=== PATIENT | male | born 1945 | race Caucasian/White ===

== ENCOUNTER 2020-01-30 06:22 | Outpatient (REF) | payer MEDICARE, SELFPAY | END 2020-01-30 06:23 | disposition home or self-care (01) | LOC: HO.MMNH1L 06:22 | PROVIDERS: Visit Provider Family Medicine | DX: Z20.828 Contact with and (suspected) exposure to other viral communicable diseases (principal) | CPT/HCPCS: 36415; 87635 ==

== ENCOUNTER 2020-02-03 17:56 | Outpatient (REF) | payer SELFPAY | END 2020-02-03 17:57 | disposition home or self-care (01) | LOC: HO.MMNH1L 17:56 | PROVIDERS: Visit Provider Family Medicine | DX: Z20.828 Contact with and (suspected) exposure to other viral communicable diseases (principal) | CPT/HCPCS: 87635 ==

== ENCOUNTER 2020-03-07 12:30 | Outpatient (REF) | payer MEDICARE, SELFPAY | END 2020-03-07 12:31 | LOC: HO.LNP 12:30 | PROVIDERS: Visit Provider Physician Assistant | DX: R30.0 Dysuria (principal) | CPT/HCPCS: 87086 ==

== ENCOUNTER 2020-04-28 12:06 | Outpatient (REF) | payer MEDICARE, SELFPAY ==
[2020-04-28 13:26] LABS: Glucose Urine UA NEG (NEG); Leukocyte Esterase Urine NEG (NEG); Nitrite Urine NEG (NEG); PH 5.5 (5.0-8.0); Urine Blood NEG (NEG); Urine Ketones NEG (NEG); Urine Protein NEG (NEG-TRACE)
[2020-04-28 13:28] LABS: Appearance Urine CLEAR; Color Urine YELLOW
[2020-04-28 13:50] LABS: RBC Urine 0 /HPF (0); WBC Urine 0 /HPF (0-4)
[2020-04-28 13:54] LABS: TSH reflex Free T4 2.16 mIU/mL (0.32-4.0)
== END 2020-04-28 12:07 | disposition home or self-care (01) ==
LOC: HO.LAB 12:06
PROVIDERS: Absent Provider Physician Assistant; PCP Internal Medicine; Visit Provider Internal Medicine
DX: T73.2XXA Exhaustion due to exposure, initial encounter (principal); R30.0 Dysuria
CPT/HCPCS: 81001; 84443

== ENCOUNTER 2020-07-27 10:35 | Outpatient (REF) | payer MEDICARE, SELFPAY ==
[2020-07-27 10:54] LABS: MANUAL DIFF FLAG NO
[2020-07-27 10:58] LABS: Basophils Absolute Auto 0.1 X10*3/uL (0.0-0.2); Basophils Percent Auto 0.5 % (0-2); Eosinophils Absolute Auto 0.1 X10*3/uL (0.0-0.4); Eosinophils Percent Auto 0.5 % (0-4); Hemoglobin 12.4 g/dl (14.0-18.0); Imm Gran Abs Auto 0.05 X10*3/uL (0.00-0.03); Imm Gran Pct Auto 0.5 % (0.0-0.4); Immature Retic Fraction 15.9 % (2.3-13.4); Lymphocytes Absolute Auto 3.6 X10*3/uL (1.2-4.9); Lymphocytes Percent Auto 35.6 % (20-40); Mean Corpuscular HGB Conc 31.8 g/dl (31.0-36.0); Mean Corpuscular Hemoglobin 25.9 pg (27.0-33.0); Mean Corpuscular Volume 81.4 fL (80-98); Mean Platelet Volume 9.7 fL (9.4-12.4); Monocytes Absolute Auto 0.7 X10*3/uL (0.1-1.2); Neutrophils Absolute Auto 5.7 X10*3/uL (2.0-8.3); Neutrophils Percent Auto 55.9 % (45-73); Platelet Count 355 X10*3/uL (160-400); Red Blood Count 4.79 X10*6/uL (4.60-5.80); Red Cell Distribution Width 17.4 % (11.0-16.0); Reticulocyte Percent 1.3 % (0.5-1.8); Reticulocytes Absolute 0.063 X10*6/uL (0.026-0.095); White Blood Count 10.2 X10*3/uL (4.8-10.8)
[2020-07-27 11:09] LABS: D Dimer 211 NG/ML
[2020-07-27 11:25] LABS: Alanine Aminotransferase 18 U/L (0-40); Albumin Level 4.4 g/dL (3.5-5.0); Alkaline Phosphatase 79 U/L (39-117); Anion Gap 16 (12-20); Aspartate Amino Transferase 17 U/L (5-37); Bilirubin Total 0.4 mg/dL (0.0-1.0); Blood Urea Nitrogen 25 mg/dL (9-16); Calcium 9.9 mg/dL (8.4-10.2); Carbon Dioxide 27 mmol/L (22-29); Chloride 100 mmol/L (96-108); Cholesterol 211 mg/dL; Estimated Glomerular Filt Rate > 60; Glucose Random 98 mg/dL (60-115); HDL Cholesterol 69 mg/dL; Iron 44 mcg/dL (45-160); LDL Cholesterol Calculated 118 mg/dl; Percent Iron Saturation 11 % (15-50); Potassium 4.6 mmol/L (3.3-5.1); Sodium 138 mmol/L (135-145); Total Iron Binding Capacity 419 mcg/dL (228-428); Total Protein 7.3 g/dL (6.5-8.0); Triglycerides 122 mg/dL; Unsaturated Iron Binding 375 ug/dL
[2020-07-27 11:42] LABS: Glucose Urine UA NEG (NEG); Leukocyte Esterase Urine NEG (NEG); Nitrite Urine NEG (NEG); PH 6.5 (5.0-8.0); Specific Gravity - Urine 1.015 (1.005-1.025); Urine Blood NEG (NEG); Urine Ketones NEG (NEG); Urine Protein NEG (NEG-TRACE)
[2020-07-27 11:43] LABS: Appearance Urine CLEAR; Color Urine YELLOW
[2020-07-27 11:47] LABS: Ferritin 15 ng/mL (20-250); Free T4 (Free Thyroxine) 0.86 ng/dL (0.71-1.85); Thyroid Stimulating Hormone 1.96 uIU/mL (0.32-4.0)
[2020-07-27 11:54] LABS: RBC Urine 0 /HPF (0); Squamous Epithelial Cell Urine TRACE /LPF; WBC Urine 0 /HPF (0-4)
[2020-07-27 12:35] LABS: Folate 10.8 ng/mL (> or = 4.0); Vitamin B12 540 pg/mL (200-900)
== END 2020-07-27 10:36 | disposition home or self-care (01) ==
LOC: HO.LAB 10:35
PROVIDERS: PCP Internal Medicine; Visit Provider Internal Medicine
DX: D64.9 Anemia, unspecified (principal); I10 Essential (primary) hypertension; I48.91 Unspecified atrial fibrillation; E78.00 Pure hypercholesterolemia, unspecified; K21.9 Gastro-esophageal reflux disease without esophagitis
CPT/HCPCS: 36415; 80053; 80061; 81001; 82607; 82728; 82746; 83540; 84439; 84443; 85025; 85045; 85379

== ENCOUNTER → 2020-08-04 12:57 | Outpatient (REF) | payer MEDICARE, SELFPAY ==
--- NOTE | 2020-08-04 13:07 | ECG_ITS ---
Hook-up date: 2020-08-04 13:15:00 Duration: 25:23:00 Test Indications: UNSPECIFIED AFIB Medications: 479931 QRS complexes 20 Ventricular ectopics which represent <1 % of total QRS comp. 994 Supraventricular ectopics which represent <1 % of total QRS comp. * Paced QRS complexs which represent % of total QRS comp. VENTRICULAR ECTOPY 20 Isolated 0 Bigeminal Cycles 0 Couplets 0 Runs 0 Beats in Runs * Beats LONGEST at * BPM at :: -- * Beats FASTEST at * BPM at :: -- SUPRAVENTRICULAR ECTOPY 957 Isolated 12 Couplets 4 Runs 13 Beats in Runs 4 Beats LONGEST at 122 BPM at 15:25:13 2020-08-04 4 Beats FASTEST at 122 BPM at 15:25:13 2020-08-04 HEART RATES 62 MIN at 07:00:06 2020-08-05 75 AVG 119 MAX at 14:36:44 2020-08-04 LONGEST RR 1.2080 secs at 05:50:15 2020-08-05 S-T LEVELS Channel 1 - 128 mm at 13:15:00 2020-08-04 - 128 mm at 13:15:00 2020-08-04 Channel 2 - 128 mm at 13:15:00 2020-08-04 - 128 mm at 13:15:00 2020-08-04 Channel 3 - 128 mm at 03:23:41 -- - 128 mm at 03:23:41 Underlying rhythm is sinus; Average ventricular rate 75/min; range 62-119/min; Occasional supraventricular ectopy(<1%); mostly isolated, longest run 4 beats; Rare ventricular ectopy; No sustained arrhythmias; Patient did not return diary Referred By: Thania Almaraz Overread By: JC SANTIAGO
== END ==
LOC: HO.CARD 12:57
PROVIDERS: PCP Internal Medicine; Visit Provider Internal Medicine
DX: I48.91 Unspecified atrial fibrillation (principal)
CPT/HCPCS: 93225; 93226

== ENCOUNTER 2020-08-05 13:14 | Outpatient (REF) | payer MEDICARE, SELFPAY ==
[2020-08-05 14:03] LABS: MANUAL DIFF FLAG NO
[2020-08-05 14:12] LABS: Basophils Absolute Auto 0.1 X10*3/uL (0.0-0.2); Basophils Percent Auto 0.5 % (0-2); Eosinophils Absolute Auto 0.1 X10*3/uL (0.0-0.4); Eosinophils Percent Auto 0.5 % (0-4); Hematocrit 38.2 % (42-52); Hemoglobin 11.9 g/dl (14.0-18.0); Imm Gran Abs Auto 0.05 X10*3/uL (0.00-0.03); Imm Gran Pct Auto 0.5 % (0.0-0.4); Lymphocytes Absolute Auto 3.9 X10*3/uL (1.2-4.9); Mean Corpuscular HGB Conc 31.2 g/dl (31.0-36.0); Mean Corpuscular Hemoglobin 25.8 pg (27.0-33.0); Mean Corpuscular Volume 82.9 fL (80-98); Mean Platelet Volume 10.6 fL (9.4-12.4); Monocytes Absolute Auto 0.9 X10*3/uL (0.1-1.2); Monocytes Percent Auto 8.6 % (2-11); Neutrophils Absolute Auto 5.6 X10*3/uL (2.0-8.3); Neutrophils Percent Auto 52.9 % (45-73); Platelet Count 340 X10*3/uL (160-400); Red Blood Count 4.61 X10*6/uL (4.60-5.80); Red Cell Distribution Width 18.8 % (11.0-16.0); White Blood Count 10.5 X10*3/uL (4.8-10.8)
[2020-08-05 14:40] LABS: Alanine Aminotransferase 18 U/L (0-40); Albumin Level 4.3 g/dL (3.5-5.0); Alkaline Phosphatase 93 U/L (39-117); Anion Gap 14 (12-20); Aspartate Amino Transferase 16 U/L (5-37); Bilirubin Total 0.2 mg/dL (0.0-1.0); Blood Urea Nitrogen 21 mg/dL (9-16); Calcium 8.9 mg/dL (8.4-10.2); Carbon Dioxide 24 mmol/L (22-29); Chloride 104 mmol/L (96-108); Estimated Glomerular Filt Rate > 60; Glucose Random 87 mg/dL (60-115); Potassium 4.8 mmol/L (3.3-5.1); Sodium 137 mmol/L (135-145); Total Protein 7.3 g/dL (6.5-8.0)
[2020-08-05 14:44] LABS: Thyroid Stimulating Hormone 1.82 uIU/mL (0.32-4.0)
== END 2020-08-05 13:15 | disposition home or self-care (01) ==
LOC: HO.LAB 13:14
PROVIDERS: PCP Internal Medicine; Visit Provider Internal Medicine
DX: D64.9 Anemia, unspecified (principal)
CPT/HCPCS: 36415; 80053; 84443; 85025

== ENCOUNTER 2020-09-10 12:00 | Emergency (ER) | payer MEDICARE, SELFPAY ==
--- NOTE | ~2020-09-10 | US_ITS ---
EXAMINATION: US VENOUS ULTRASOUND WITH DOPPLER LOWER EXTREMITY, BILATERAL CLINICAL INFORMATION: Pain COMPARISON: None TECHNIQUE: Ultrasound of the deep veins is performed from the hip to the calf with compression sonography and color and pulse Doppler assessment. Spectral analysis with color-flow imaging is performed. FINDINGS: RIGHT: There is normal venous compression and respiratory variation and augmented flow. The visualized common femoral vein, superficial femoral vein, profunda femoral vein, popliteal vein, and the trifurcation region shows no evidence of deep venous thrombosis. There is no significant popliteal fossa cyst. LEFT: There is normal venous compression and respiratory variation and augmented flow. The visualized common femoral vein, superficial femoral vein, profunda femoral vein, popliteal vein, and the trifurcation region shows no evidence of deep venous thrombosis. There is no significant popliteal fossa cyst. If the patient's symptoms persist, followup ultrasound in 5 days 7 days might be of value to exclude proximal propagation from a non-visualized calf vein. US/US venous duplex LE BI IMPRESSION: No DVT demonstrated in both lower extremities.
--- NOTE | ~2020-09-10 | XR_ITS ---
EXAMINATION: XR CHEST CLINICAL INFORMATION: Nausea and abdominal pain COMPARISON: Chest CT 01/25/2020 and right-sided rib x-rays 07/30/2019 TECHNIQUE: 2 views of the chest were obtained. FINDINGS: Cardiac silhouette is normal in size. Atherosclerotic disease of the aortic arch. The lungs are well aerated. There is no lobar consolidation. No pleural effusion or pneumothorax. Surgical clips project over the GE junction. Old healed rib fractures. Patient is status post cement augmentation of the L1 vertebral body. XR/XR chest 2V IMPRESSION: No acute pulmonary pathology.
--- NOTE | ~2020-09-10 | CT_ITS ---
EXAMINATION: CT ABDOMEN AND PELVIS WITH CONTRAST CLINICAL INFORMATION: Pain. History of hernia COMPARISON: Baseline 01/25/2020 TECHNIQUE: Multidetector volumetric images were obtained from the superior aspect of the liver through the pubic symphysis following administration 85 mL of Omnipaque 350 intravenous contrast. Sagittal and coronal reformatted images were obtained on the technologist's workstation. Oral contrast: No This CT examination was performed using dose optimization techniques as appropriate, variously including the following: *Automated exposure control *Adjustment of mA and/or kV according to patient size (this includes techniques or standardized protocols for targeted exams where dose is matched to indication/reason for exam; i.e. extremities or head) *Use of iterative reconstruction technique DLP: 1090 mGy-cm FINDINGS: LUNG BASES: The visualized lung bases are unremarkable. Multiple staple lines at the GE junction noted. LIVER, GALLBLADDER, AND BILIARY TREE: The liver is normal in size, shape, and attenuation. No focal hepatic lesion or biliary ductal dilatation is present. Gallbladder appears to be absent. Clip noted. PANCREAS: Unremarkable. SPLEEN: Incidental tiny splenule anteriorly. ADRENAL GLANDS: Unremarkable. KIDNEYS AND URETERS: The kidneys are normal in size, shape, and attenuation. No hydronephrosis, hydroureter, or calculi seen. No perinephric stranding. Renal cortical cyst left lower pole noted incidentally. BLADDER: Unremarkable. GASTROINTESTINAL TRACT: The small and large bowel are notable for diverticulosis without acute inflammatory changes. No small bowel pathology. The appendix is unremarkable. ABDOMINAL WALL: Mesh related to previous hernia surgery noted. No evidence of recurrence of hernia. LYMPH NODES: Normal. VASCULAR: Unremarkable. PELVIC VISCERA: Brachytherapy seeds within the prostate parenchyma noted. OSSEOUS STRUCTURES: Moderate anterior compression fracture L1 with vertebral plasty changes noted. Mild compression of the T11 vertebral body is also evident. No discrete bony lesion. CT/CT abdomen pelvis w con IMPRESSION: No acute pathology. No evidence for any recurrence of any hernia.
[2020-09-10 12:06] VITALS: BP 142/85; PULSE 73; RESP 18; TEMP 36.8; O2SAT 100; BMI 35.2
--- NOTE | 2020-09-10 14:09 | ECG_ITS ---
Test Reason : VOMITING Blood Pressure : / mmHG Vent. Rate : 072 BPM Atrial Rate : 072 BPM P-R Int : 156 ms QRS Dur : 082 ms QT Int : 406 ms P-R-T Axes : 000 014 071 degrees QTc Int : 444 ms Ectopic atrial rhythm with Premature supraventricular complexes Otherwise normal ECG When compared with ECG of 25-JAN-2020 06:41, Atrial fibrillation not present anymore Referred By: Meena Sarmiento Electronically Signed By:Reynold Ybarra
[2020-09-10 14:37] VITALS: RESP 16
[2020-09-10 14:37] LABS: MANUAL DIFF FLAG NO
[2020-09-10] MEDS: Morphine Sulfate 4 MG/ML CARTRIDGE IVPUSH (14:37)
[2020-09-10] MEDS: 0.9 % Sodium Chloride 1,000 ML 999 ML IVCONT (14:37)
[2020-09-10] MEDS: ondansetron HCL 4 MG/2 ML VIAL IVPUSH (14:37)
[2020-09-10 14:40] LABS: Basophils Percent Auto 0.4 % (0-2); Eosinophils Percent Auto 0.4 % (0-4); Hematocrit 39.2 % (42-52); Hemoglobin 12.8 g/dl (14.0-18.0); Imm Gran Abs Auto 0.05 X10*3/uL (0.00-0.03); Imm Gran Pct Auto 0.5 % (0.0-0.4); Lymphocytes Absolute Auto 2.2 X10*3/uL (1.2-4.9); Mean Corpuscular HGB Conc 32.7 g/dl (31.0-36.0); Mean Corpuscular Hemoglobin 28.3 pg (27.0-33.0); Mean Corpuscular Volume 86.7 fL (80-98); Mean Platelet Volume 10.2 fL (9.4-12.4); Monocytes Absolute Auto 0.9 X10*3/uL (0.1-1.2); Monocytes Percent Auto 10.2 % (2-11); Neutrophils Absolute Auto 5.9 X10*3/uL (2.0-8.3); Neutrophils Percent Auto 64.5 % (45-73); Platelet Count 294 X10*3/uL (160-400); Red Blood Count 4.52 X10*6/uL (4.60-5.80); Red Cell Distribution Width 19.4 % (11.0-16.0); White Blood Count 9.2 X10*3/uL (4.8-10.8)
[2020-09-10 14:49] LABS: INTERNATIONAL NORM RATIO 1.2 (0.9-1.1); Prothrombin Time 14.1 SEC (10.8-13.0)
[2020-09-10 15:15] LABS: B Type Natriuretic Peptide 24 pg/mL (<100); Troponin-I High Sensitivity < 3.5 ng/L (<3.5-35.0)
[2020-09-10 15:17] LABS: Alanine Aminotransferase 21 U/L (0-40); Albumin Level 4.3 g/dL (3.5-5.0); Alkaline Phosphatase 70 U/L (39-117); Anion Gap 15 (12-20); Aspartate Amino Transferase 21 U/L (5-37); Bilirubin Total 0.4 mg/dL (0.0-1.0); Blood Urea Nitrogen 21 mg/dL (9-16); Calcium 9.3 mg/dL (8.4-10.2); Carbon Dioxide 23 mmol/L (22-29); Chloride 102 mmol/L (96-108); Estimated Glomerular Filt Rate > 60; Glucose Random 93 mg/dL (60-115); Potassium 4.3 mmol/L (3.3-5.1); Sodium 136 mmol/L (135-145); Total Protein 7.2 g/dL (6.5-8.0)
--- NOTE | 2020-09-10 15:35 | ED_ITS ---
HPI - Nausea/Vomiting/Diarrhea General Chief complaint: Nausea/Vomiting/Diarrhea Stated complaint: NAUSEA Time Seen by Provider: 09/10/20 13:52 Source: patient Mode of arrival: ambulatory Limitations: no limitations History of Present Illness HPI Narrative: 75-year-old male with a past medical history of obesity, atrial fibrillation, pulmonary embolism currently on Eliquis, hypertension, prostate cancer, iron deficiency anemia, B12 deficiency anemia, chronic back pain, obstructive sleep apnea, anxiety, depression, GERD, diverticular disease, large ventral hernia status post multiple mess surgeries, peptic ulcer disease, H pylori infection at the age of 19 and then had surgery from that and since then has been suffering once a year from a nausea pain where he reports he needs IV nausea medications and morphine to help his nausea pain presenting to the ED with complaints of flare up of his nausea pain that started over the past few days worse today. Reports that despite being prescribed Zofran and meclizine no symptomatic relief. He denies any fevers, dizziness, lightheadedness, headaches, changes in vision, vomiting, chest pain, shortness of breath, dyspnea on exertion, orthopnea, palpitations, abdominal pain, back pain, dysuria, hematuria, black or bloody stools, diarrhea constipation, recent travel or sick contacts or possible bad food exposure or any other symptoms complaints or concerns at this time. MD elicited complaint: nausea Pertinent past history: other (hx of chronic abd pain report when he was 19 he had H. Pylori and had surgery from this and since then yearly suffers from this nausea pain) Onset (ago): day(s) (Few days worse today) Associated nausea: Yes Associated abdominal pain: No Pain consistency: constant Exacerbating factors: none Relieving factors: other (IV nausea medications and morphine per patient) Associated symptoms: other (Patient also reports over the past few days he has noticed that his bilateral calves have been tender although he denies any swelling) Related Data Home Medications Medication Instructions Recorded Confirmed alfuzosin 10 mg tablet,extended 10 mg PO Q OTHER DAY 03/09/20 08/01/20 release 24 hr apixaban 5 mg tablet 5 mg PO BID 04/14/20 08/01/20 hydrocodone 5 mg-acetaminophen 325 0.5 - 1 tab PO Q4H PRN 04/14/20 08/01/20 mg tablet omeprazole 40 mg capsule,delayed 40 mg PO DAILY 04/14/20 08/01/20 release divalproex 500 mg tablet,delayed 500 mg PO .QD tab 05/26/20 08/01/20 release fentanyl 12 mcg/hr transdermal 1 patch TRANSDERMAL Q48H ea 05/26/20 08/01/20 patch Previous Rx's Medication Instructions Recorded baclofen 10 mg tablet 10 mg PO TID #90 tab 03/12/20 syringe with needle, safety 3 mL #100 ea 04/14/20 25 gauge x 5/8 fexofenadine 180 mg tablet 180 mg PO DAILY PRN #30 cap 05/22/20 cyanocobalamin (vitamin B-12) 1,000 mcg SUBCUT .Qmonthly #3 cap 05/26/20 1,000 mcg/mL injection solution ondansetron HCl 8 mg tablet 8 mg PO Q8H PRN #30 tab 06/21/20 amlodipine 10 mg tablet 10 mg PO DAILY #90 cap 06/28/20 ascorbate calcium (vitamin C) 500 500 mg PO DAILY #30 tab 07/27/20 mg tablet ferrous sulfate 325 mg (65 mg 325 mg PO DAILY #30 tab 07/27/20 iron) tablet lactulose 20 gram/30 mL oral 20 g PO BID PRN #3000 ml 08/01/20 solution diphenhydramine HCl [Benadryl] 25 mg PO TID PRN #14 cap 09/10/20 metoclopramide HCl [Reglan] 10 mg PO Q6H PRN #30 tab 09/10/20 tramadol 50 mg PO BID PRN #14 tab 09/10/20 Allergies Allergy/AdvReac Type Severity Reaction Status Date / Time carisoprodol [From Soma] Allergy Mild MENTAL Verified 04/14/20 08:48 STATUS CHANGE, BECOMES AGGRESIVE codeine [Codeine] Allergy Mild STOMACH Verified 04/14/20 08:48 UPSET, RASH fentanyl Allergy Unknown nausea, Verified 04/14/20 08:48 vomitting topiramate [From TOPAMAX] Allergy Unknown UNK Verified 04/14/20 08:48 Review of Systems Review of Systems: Constitutional : No Fever, No Chills, No Night Sweats, No Fatigue, No Malaise Cardiovascular : No Chest Pain, No SOB Respiratory : No Cough, No Sputum, No Wheezing, No Dyspnea Gastrointestinal : + Nausea, No Vomiting, No Diarrhea, No abdominal Pain, No Hematochezia, No Melena Genitourinary : No irregular bleeding, No Dysuria, No Urinary Frequency, No Hematuria,No Urinary Incontinence, No Urgency, No Flank Pain Musculoskeletal : Positive bilateral lower extremity calf tenderness, No joint pain, No Myalgias, No Joint Swelling Skin : No Skin Lesions, No rash Neuro : No Weakness, No Numbness, No Paresthesias, No Loss of Consciousness, No Dizziness, No Headache Heme/Lymph: No Lymphadenopathy Endocrine : No Temperature Intolerance Yes all other systems are reviewed and are negative Gastrointestinal: Gastrointestinal: Reports nausea PMFSH Past Medical History Attestation statement: The following information was validated with the patient. Medical History Anxiety and depression Degenerative disc disease Diverticular disease GERD (gastroesophageal reflux disease) Gout Hypertension Iron deficiency anemia Knee fracture, left Obesity (BMI 30-39.9) Obstructive sleep apnea Peptic ulcer disease Prostate cancer Vitamin B12 deficiency Vitamin D deficiency Wedge compression fracture of L1 vertebra Surgical History H/O hernia repair H/O rectal polypectomy History of bowel resection History of cholecystectomy History of hemiarthroplasty of left hip History of knee replacement procedure of left knee History of pyloroplasty Family History Family History Father Diabetes Acute kidney failure Mother Lung cancer Social History Social History Alcohol intake: never Smoking Status: Never smoker Use of substances other than those prescribed or required for medical reasons: No Advance Directives: Yes Advance Directives on File: Yes Advance Directives Date on File: 01/30/20 Physical Exam Vital Signs: Vital Signs: Last Vital Signs Temp 98.2 F 09/10/20 12:06 Pulse 73 09/10/20 12:06 Resp 16 09/10/20 14:37 BP 142/85 H 09/10/20 12:06 Pulse Ox 100 09/10/20 12:06 Body Mass Index 35.2 vital signs have been reviewed as normal and appeared to be correct. Blood pressure hypertensive 142/85. Heart rate normal. Respiration rate normal. Temperature normal. Oxygen saturation normal. Appearance: Alert. Oriented X3. No acute distress. Head: Normal external exam. Normocephalic. Eyes: PERRLA. EOMI. Conjunctiva and sclera normal. Eyelids normal. ENT: Pharynx normal. Uvula midline. Moist mucous membranes. No trismus noted. No drooling noted. No muffled voice noted. Neck: Normal inspection. Neck supple. FROM. No adenopathy. No meningeal signs. CVS: Normal heart rate and rhythm. Heart sound normal. No murmurs noted. Pulses normal throughout. Respiratory: No respiratory distress. Painless inspiration. Breath sounds normal. No wheezes/rales/rhonchi noted. Chest nontender. No accessory muscle usage noted or decreased air movement noted. Abdomen: Soft and mild tenderness diffusely throughout the abdomen no point tenderness. Patient has large ventral hernia. No guarding. No rigidity. Bowel sounds normal in all 4 quadrants. No distention noted. No organomegaly noted. No visible injury noted. No rebound tenderness. Negative Rovsing sign. Negative obturator's sign. Negative psoas sign. Negative Khan sign. Back: No CVA tenderness. Full range of motion noted. Skin: Skin warm and dry. Normal skin color. Normal skin turgor. No rashes/lesions/lacerations noted. Extremities: Bilateral calf tenderness although no pitting lower extremity edema noted. Extremities exhibit normal range of motion. Extremities nontender. Neuro: Oriented X 3. No motor deficit. No sensory deficit. Reflexes normal. Normal steady gait. Course Course Course Narrative: 18pm - Reviewed and patient with a mild baseline anemia improved when compared to prior. BUN 21. Otherwise all other labs are within normal limits. COVID/RSV/flu negative. Ultrasound of lower extremity negative for any acute processes. Chest x-ray within normal limits no acute processes are noted. Bilateral venous duplex ultrasound negative for DVT or any other acute processes. CT scan of abdomen and pelvis revealed chronic changes no acute processes noted. - patient tolerating p.o. at this time therefore will DC home with symptomatic treatment and instructions to return if any new or worsening symptoms to follow up with primary care provider. Patient understands agrees with this plan. MDM - Nausea/Vomiting/Diarrhea MDM Narrative Medical decision making narrative: 14:10pm - 75-year-old male with a past medical history of obesity, atrial fibrillation, pulmonary embolism currently on Eliquis, hypertension, prostate cancer, iron deficiency anemia, B12 deficiency anemia, chronic back pain, obstructive sleep apnea, anxiety, depression, GERD, diverticular disease, large ventral hernia status post multiple mess surgeries, peptic ulcer disease, H pylori infection at the age of 19 and then had surgery from that and since then has been suffering once a year from a nausea pain where he reports he needs IV nausea medications and morphine to help his nausea pain presenting to the ED with complaints of flare up of his nausea pain that started over the past few days worse today. - Plan: Labs, chest x-ray, EKG, CT scan of abdomen pelvis with IV contrast, bilateral venous duplex ultrasound of lower extremity to evaluate for DVT. Provide a L of IV fluids with 4 mg of IV Zofran and 4 mg of IV morphine and re- evaluate. Medical Records Attestation: I reviewed the patient's medical records. Lab Data Attestation: I reviewed the patient's lab results. Result diagrams: 09/10/20 14:30 09/10/20 14:29 Labs: Lab Results 09/10/20 09/10/20 09/10/20 Range/Units 14:29 14:29 14:29 WBC (4.8-10.8) X10*3/uL RBC (4.60-5.80) X10*6/uL Hgb (14.0-18.0) g/dl Hct (42-52) % MCV (80-98) fL MCH (27.0-33.0) pg MCHC (31.0-36.0) g/dl RDW (11.0-16.0) % Plt Count (160-400) X10*3/uL MPV (9.4-12.4) fL Immature Gran % (Auto) (0.0-0.4) % Neut % (Auto) (45-73) % Lymph % (Auto) (20-40) % [place] % (Auto) (2-11) % Eos % (Auto) (0-4) % Baso % (Auto) (0-2) % Lymph # (Auto) (1.2-4.9) X10*3/uL [place] # (Auto) (0.1-1.2) X10*3/uL Eos # (Auto) (0.0-0.4) X10*3/uL Baso # (Auto) (0.0-0.2) X10*3/uL Abs Immat Gran (auto) (0.00-0.03) X10*3/uL Absolute Neuts (auto) (2.0-8.3) X10*3/uL Absolute Nucleated RBC (0.0-0.012) X10*3/uL Nucleated RBC % (auto) (0.0-0.2) /100WBC PT (10.8-13.0) SEC INR (0.9-1.1) Sodium 136 (135-145) mmol/L Potassium 4.3 (3.3-5.1) mmol/L Chloride 102 (96-108) mmol/L Carbon Dioxide 23 (22-29) mmol/L Anion Gap 15 (12-20) BUN 21 H (9-16) mg/dL Creatinine 1.06 (0.5-1.4) mg/dL Estim Creat Clear Calc 81.0 Estimated GFR > 60 Random Glucose 93 (60-115) mg/dL Calcium 9.3 (8.4-10.2) mg/dL Magnesium 1.8 (1.6-2.6) mg/dL Total Bilirubin 0.4 (0.0-1.0) mg/dL Direct Bilirubin < 0.2 (0.0-0.5) mg/dL AST 21 (5-37) U/L ALT 21 (0-40) U/L Alkaline Phosphatase 70 D (39-117) U/L Troponin I High Sens < 3.5 (<3.5-35.0) ng/L B-Natriuretic Peptide 24 (<100) pg/mL Total Protein 7.2 (6.5-8.0) g/dL Albumin 4.3 (3.5-5.0) g/dL Coronavirus (PCR) (Negative) Influenza Type A (PCR) (Negative) Influenza Type B (PCR) (Negative) RSV RNA Qual (PCR) (Negative) 09/10/20 09/10/20 09/10/20 Range/Units 14:30 14:30 14:30 WBC 9.2 (4.8-10.8) X10*3/uL RBC 4.52 L (4.60-5.80) X10*6/uL Hgb 12.8 L (14.0-18.0) g/dl Hct 39.2 L (42-52) % MCV 86.7 (80-98) fL MCH 28.3 (27.0-33.0) pg MCHC 32.7 (31.0-36.0) g/dl RDW 19.4 H (11.0-16.0) % Plt Count 294 (160-400) X10*3/uL MPV 10.2 (9.4-12.4) fL Immature Gran % (Auto) 0.5 H (0.0-0.4) % Neut % (Auto) 64.5 (45-73) % Lymph % (Auto) 24.0 (20-40) % [place] % (Auto) 10.2 (2-11) % Eos % (Auto) 0.4 (0-4) % Baso % (Auto) 0.4 (0-2) % Lymph # (Auto) 2.2 (1.2-4.9) X10*3/uL [place] # (Auto) 0.9 (0.1-1.2) X10*3/uL Eos # (Auto) 0.0 (0.0-0.4) X10*3/uL Baso # (Auto) 0.0 (0.0-0.2) X10*3/uL Abs Immat Gran (auto) 0.05 H (0.00-0.03) X10*3/uL Absolute Neuts (auto) 5.9 (2.0-8.3) X10*3/uL Absolute Nucleated RBC 0.000 (0.0-0.012) X10*3/uL Nucleated RBC % (auto) 0.0 (0.0-0.2) /100WBC PT 14.1 H (10.8-13.0) SEC INR 1.2 H (0.9-1.1) Sodium (135-145) mmol/L Potassium (3.3-5.1) mmol/L Chloride (96-108) mmol/L Carbon Dioxide (22-29) mmol/L Anion Gap (12-20) BUN (9-16) mg/dL Creatinine (0.5-1.4) mg/dL Estim Creat Clear Calc Estimated GFR Random Glucose (60-115) mg/dL Calcium (8.4-10.2) mg/dL Magnesium (1.6-2.6) mg/dL Total Bilirubin (0.0-1.0) mg/dL Direct Bilirubin (0.0-0.5) mg/dL AST (5-37) U/L ALT (0-40) U/L Alkaline Phosphatase (39-117) U/L Troponin I High Sens (<3.5-35.0) ng/L B-Natriuretic Peptide (<100) pg/mL Total Protein (6.5-8.0) g/dL Albumin (3.5-5.0) g/dL Coronavirus (PCR) NEGATIVE (Negative) Influenza Type A (PCR) NEGATIVE (Negative) Influenza Type B (PCR) NEGATIVE (Negative) RSV RNA Qual (PCR) NEGATIVE (Negative) Imaging Data Chest x-ray: Attestation: I personally reviewed and interpreted this imaging study as follows: Radiologist's impression: FINDINGS: Cardiac silhouette is normal in size. Atherosclerotic disease of the aortic arch. The lungs are well aerated. There is no lobar consolidation. No pleural effusion or pneumothorax. Surgical clips project over the GE junction. Old healed rib fractures. Patient is status post cement augmentation of the L1 vertebral body. XR/XR chest 2V IMPRESSION: No acute pulmonary pathology. Venous duplex ultrasound of lower extremities: Attestation: I personally reviewed and interpreted this imaging study as follows: Radiologist's impression: FINDINGS: RIGHT: There is normal venous compression and respiratory variation and augmented flow. The visualized common femoral vein, superficial femoral vein, profunda femoral vein, popliteal vein, and the trifurcation region shows no evidence of deep venous thrombosis. There is no significant popliteal fossa cyst. LEFT: There is normal venous compression and respiratory variation and augmented flow. The visualized common femoral vein, superficial femoral vein, profunda femoral vein, popliteal vein, and the trifurcation region shows no evidence of deep venous thrombosis. There is no significant popliteal fossa cyst. If the patient's symptoms persist, followup ultrasound in 5 days 7 days might be of value to exclude proximal propagation from a non-visualized calf vein. US/US venous duplex LE BI IMPRESSION: No DVT demonstrated in both lower extremities. CT scan of abdomen pelvis with IV contrast: Attestation: I personally reviewed and interpreted this imaging study as elfego vega: Radiologist's impression: FINDINGS: LUNG BASES: The visualized lung bases are unremarkable. Multiple staple lines at the GE junction noted. LIVER, GALLBLADDER, AND BILIARY TREE: The liver is normal in size, shape, and attenuation. No focal hepatic lesion or biliary ductal dilatation is present. Gallbladder appears to be absent. Clip noted. PANCREAS: Unremarkable. SPLEEN: Incidental tiny splenule anteriorly. ADRENAL GLANDS: Unremarkable. KIDNEYS AND URETERS: The kidneys are normal in size, shape, and attenuation. No hydronephrosis, hydroureter, or calculi seen. No perinephric stranding. Renal cortical cyst left lower pole noted incidentally. BLADDER: Unremarkable. GASTROINTESTINAL TRACT: The small and large bowel are notable for diverticulosis without acute inflammatory changes. No small bowel pathology. The appendix is unremarkable. ABDOMINAL WALL: Mesh related to previous hernia surgery noted. No evidence of recurrence of hernia. LYMPH NODES: Normal. VASCULAR: Unremarkable. PELVIC VISCERA: Brachytherapy seeds within the prostate parenchyma noted. OSSEOUS STRUCTURES: Moderate anterior compression fracture L1 with vertebral plasty changes noted. Mild compression of the T11 vertebral body is also evident. No discrete bony lesion. CT/CT abdomen pelvis w con IMPRESSION: No acute pathology. No evidence for any recurrence of any hernia. ECG Data Attestation: I personally reviewed and interpreted this ECG as follows: ECG interpretation date: 09/10/20 ECG interpretation time: 16:17 Interpretation: Sinus rhythm with premature supraventricular complexes with a ventricular rate of 72 with a normal NV interval normal QRS duration normal QT/QTC interval. No acute ischemic changes are noted. Sinus rhythm has replaced atrial fibrillation when compared to prior EKG. Critical Care Time Critical Care Time Critical Care Time: Yes Total Critical Care Time: 60 Attestation: I personally attest to this time spent taking care of the patient Discharge Plan Discharge Clinical Impression: Muscle spasm of calf, Nausea, Abdominal pain Patient Disposition: Home, Self-Care Instructions: Acute Nausea and Vomiting (ED), Abdominal Pain (ED) Prescriptions: New tramadol 50 mg tablet 50 mg PO BID PRN (Reason: pain) Qty: 14 RF: 0 metoclopramide HCl [Reglan] 10 mg tablet 10 mg PO Q6H PRN (Reason: nausea and vomiting) Qty: 30 RF: 0 diphenhydramine HCl [Benadryl] 25 mg capsule 25 mg PO TID PRN (Reason: nausea and vomiting) Qty: 14 RF: 0 No Action baclofen 10 mg tablet 10 mg PO TID Qty: 90 RF: 3 fexofenadine 180 mg tablet 180 mg PO DAILY PRN (Reason: allergy symptoms) Qty: 30 RF: 11 amlodipine 10 mg tablet 10 mg PO DAILY Qty: 90 RF: 2 ferrous sulfate [Feosol] 325 mg (65 mg iron) tablet 325 mg PO DAILY Qty: 30 RF: 3 ascorbate calcium (vitamin C) 500 mg tablet 500 mg PO DAILY Qty: 30 RF: 3 alfuzosin 10 mg tablet extended release 24 hr 10 mg PO Q OTHER DAY RF: 0 fentanyl 12 mcg/hr patch 72 hour 1 patch transdermal Q48H RF: 0 cyanocobalamin (vitamin B-12) 1,000 mcg/mL solution 1,000 mcg subcut .Qmonthly Qty: 3 RF: 3 divalproex 500 mg tablet,delayed release (DR/EC) 500 mg PO .QD RF: 0 ondansetron HCl 8 mg tablet 8 mg PO Q8H PRN (Reason: nausea and vomiting) Qty: 30 RF: 0 lactulose 20 gram/30 mL solution 20 g PO BID PRN (Reason: constipation) Qty: 3000 RF: 0 hydrocodone-acetaminophen 5-325 mg tablet 0.5 - 1 tab PO Q4H PRN (Reason: pain) RF: 0 Eliquis 5 mg tablet 5 mg PO BID RF: 0 omeprazole 40 mg capsule,delayed release(DR/EC) 40 mg PO DAILY RF: 0 (DME) BD Safety-Jackie Detachable Needl 3 mL 25 gauge x 5/8 syringe See Rx Instructions .ROUTE .MEDSUPPLY Qty: 100 RF: 0 Referrals: Po,Thania Childs MD [Primary Care Provider] - 2 days Print Language: Yakut
[2020-09-10 15:45] LABS: Influenza A PCR NEGATIVE (Negative); Influenza B PCR NEGATIVE (Negative); Resp Syncy Virus RNA Qual PCR NEGATIVE (Negative); SARS COV2 PCR INHOUSE NEGATIVE (Negative)
[2020-09-10] MEDS: iohexoL 350 MG/ML 100 ML INFUS..BTL IV (16:12)
[2020-09-10 17:27] LABS: Bilirubin Direct < 0.2 mg/dL (0.0-0.5); Magnesium 1.8 mg/dL (1.6-2.6)
--- NOTE | 2020-09-10 18:09 | PC.NURSE ---
pa at bedside for dc instructions
== END 2020-09-10 18:31 | disposition home or self-care (01) ==
PROVIDERS: Physician Assistant Medical; Emergency Provider Emergency Medicine Emergency Medical Services; PCP Internal Medicine
DX: M62.831 Muscle spasm of calf (principal); R10.9 Unspecified abdominal pain; R11.2 Nausea with vomiting, unspecified; R19.7 Diarrhea, unspecified; M79.662 Pain in left lower leg; M79.661 Pain in right lower leg; K43.9 Ventral hernia without obstruction or gangrene; D73.89 Other diseases of spleen; N28.1 Cyst of kidney, acquired; K57.30 Diverticulosis of large intestine without perforation or abscess without bleeding; Z20.822 Contact with and (suspected) exposure to COVID-19; I48.91 Unspecified atrial fibrillation; I10 Essential (primary) hypertension; D50.9 Iron deficiency anemia, unspecified; K21.9 Gastro-esophageal reflux disease without esophagitis; Z85.46 Personal history of malignant neoplasm of prostate; Z86.711 Personal history of pulmonary embolism; Z79.01 Long term (current) use of anticoagulants
CPT/HCPCS: 0241U; 36415; 71046; 74177; 80053; 80076; 82248; 83735; 83880; 84484; 85025; 85610; 93005; 93970; 96361; 96374; 96375; 99284; 99291; J2270; J2405; Q9967

== ENCOUNTER 2020-09-30 09:03 | Day surgery (SDC) | payer MEDICARE, SELFPAY ==
--- NOTE | 2020-09-28 14:09 | P.CONAN_ITS ---
Documented by User: Octavia Leilani 09/28/20 14:14 HPI - Anesthesia Eval Consult details Narrative: 75yo M for Upper Endoscopy Eliquis for afib/PE Chronic opioid including fentanyl patch PMFSH Active Problems Active Problems: All Active Problems (Updated 09/11/20 @ 00:00 by Mike Cabral) Prostate cancer (Acute) Peptic ulcer disease (Acute) Iron deficiency anemia (Acute) Gout (Acute) Diverticular disease (Acute) Degenerative disc disease (Acute) SOB (shortness of breath) on exertion (Acute) Constipation (Acute) Iron deficiency anemia (Acute) Anemia (Acute) Atrial fibrillation (Acute) Pulmonary embolism (Acute) Obstructive sleep apnea (Acute) Obesity (BMI 30-39.9) (Acute) GERD (gastroesophageal reflux disease) (Acute) Anxiety and depression (Acute) Hypertension (Acute) B12 deficiency anemia (Acute) Fatigue (Acute) Dysuria (Acute) Past Medical History Medical History Anemia Anxiety and depression Atrial fibrillation Degenerative disc disease Diverticular disease GERD (gastroesophageal reflux disease) Gout Hypertension Iron deficiency anemia Knee fracture, left Obesity (BMI 30-39.9) Obstructive sleep apnea Peptic ulcer disease Prostate cancer Vitamin B12 deficiency Vitamin D deficiency Wedge compression fracture of L1 vertebra Family History Family History Father Diabetes Acute kidney failure Mother Lung cancer Surgical History Surgical History H/O hernia repair H/O rectal polypectomy History of bowel resection History of cholecystectomy History of hemiarthroplasty of left hip History of knee replacement procedure of left knee History of pyloroplasty Social History Social History Alcohol intake: never Patient Tobacco Use Status: Former Tobacco user Quit Date: 1979 Tobacco use type: Cigarette and Cigar Use of substances other than those prescribed or required for medical reasons: No Are you DNR?: Yes Advance Directives: Yes Advance Directives on File: Yes Advance Directives Date on File: 01/30/20 Meds Allergies Allergy/AdvReac Type Severity Reaction Status Date / Time carisoprodol [From Soma] Allergy Mild MENTAL Verified 04/14/20 08:48 STATUS CHANGE, BECOMES AGGRESIVE codeine [Codeine] Allergy Mild STOMACH Verified 04/14/20 08:48 UPSET, RASH fentanyl Allergy Unknown nausea, Verified 04/14/20 08:48 vomitting topiramate [From TOPAMAX] Allergy Unknown UNK Verified 04/14/20 08:48 Active Medications: Current Medications Generic Name Dose Route Start Last Admin Trade Name Freq PRN Reason Stop Dose Admin Ampicillin Sodium 2 gm/ Sodium 100 mls @ 100 mls/hr 09/30/20 06:00 Chloride IV 09/30/20 23:00 PREOP MAGALIS Gentamicin Sulfate/Sodium Chloride 80 mg in 100 mls @ 100 mls/hr 09/30/20 06:00 Garamycin IV 09/30/20 23:00 PREOP [facility] Home Medications Medication Instructions Recorded Confirmed Last Taken Type alfuzosin 10 mg tablet,extended 10 mg PO Q OTHER DAY 03/09/20 08/01/20 Unknown History release 24 hr apixaban 5 mg tablet 5 mg PO BID 04/14/20 08/01/20 09/27/20 History hydrocodone 5 mg-acetaminophen 325 0.5 - 1 tab PO Q4H PRN 04/14/20 08/01/20 Unknown History mg tablet omeprazole 40 mg capsule,delayed 40 mg PO DAILY 04/14/20 08/01/20 Unknown History release divalproex 500 mg tablet,delayed 500 mg PO .QD tab 05/26/20 08/01/20 09/30/20 07:00 History release fentanyl 12 mcg/hr transdermal 1 patch TRANSDERMAL Q48H ea 05/26/20 08/01/20 Unknown History patch venlafaxine 1 cap PO DAILY 09/30/20 09/30/20 09/30/20 07:00 History Exam Exam Date and Time: September 28, 2020 1409 Narrative Narrative: EKG 08/2020 Sinus rhythm with premature supraventricular complexes with a ventricular rate of 72 with a normal SD interval normal QRS duration normal QT/QTC interval. No acute ischemic changes are noted. Sinus rhythm has replaced atrial fibrillation when compared to prior EKG. Assessment and Plan Assessment Anesthesia Assessment: Chart Reviewed Documented by User: Nadya La 09/30/20 09:42 [facility] Past Medical History Medical History Anemia Anxiety and depression Atrial fibrillation Degenerative disc disease Diverticular disease GERD (gastroesophageal reflux disease) Gout Hypertension Iron deficiency anemia Knee fracture, left Obesity (BMI 30-39.9) Obstructive sleep apnea Peptic ulcer disease Prostate cancer Vitamin B12 deficiency Vitamin D deficiency Wedge compression fracture of L1 vertebra Family History Family History Father Diabetes Acute kidney failure Mother Lung cancer Surgical History Surgical History H/O hernia repair H/O rectal polypectomy History of bowel resection History of cholecystectomy History of hemiarthroplasty of left hip History of knee replacement procedure of left knee History of pyloroplasty Social History Social History Alcohol intake: never Patient Tobacco Use Status: Former Tobacco user Quit Date: 1979 Tobacco use type: Cigarette and Cigar Use of substances other than those prescribed or required for medical reasons: No Are you DNR?: Yes Advance Directives: Yes Advance Directives on File: Yes Advance Directives Date on File: 01/30/20 Meds Allergies Allergy/AdvReac Type Severity Reaction Status Date / Time carisoprodol [From Soma] Allergy Mild MENTAL Verified 04/14/20 08:48 STATUS CHANGE, BECOMES AGGRESIVE codeine [Codeine] Allergy Mild STOMACH Verified 04/14/20 08:48 UPSET, RASH fentanyl Allergy Unknown nausea, Verified 04/14/20 08:48 vomitting topiramate [From TOPAMAX] Allergy Unknown UNK Verified 04/14/20 08:48 Home Medications Medication Instructions Recorded Confirmed Last Taken Type alfuzosin 10 mg tablet,extended 10 mg PO Q OTHER DAY 03/09/20 08/01/20 Unknown History release 24 hr apixaban 5 mg tablet 5 mg PO BID 04/14/20 08/01/20 09/27/20 History hydrocodone 5 mg-acetaminophen 325 0.5 - 1 tab PO Q4H PRN 04/14/20 08/01/20 Unknown History mg tablet omeprazole 40 mg capsule,delayed 40 mg PO DAILY 04/14/20 08/01/20 Unknown History release divalproex 500 mg tablet,delayed 500 mg PO .QD tab 05/26/20 08/01/20 09/30/20 07:00 History release fentanyl 12 mcg/hr transdermal 1 patch TRANSDERMAL Q48H ea 05/26/20 08/01/20 Unknown History patch venlafaxine 1 cap PO DAILY 09/30/20 09/30/20 09/30/20 07:00 History Exam Airway Mallampati Class: II TM Dist: >3cm Neck ROM: Full Assessment and Plan Assessment Anesthesia Assessment: Anesthesia Plan Discussed and Chart Reviewed Final Anesthetic Review NPO: Yes ASA Class: III Final Preanesthetic Review: No Changes in Pt Med Stat, Meds/Allgs Chart Reviewed, Consent Obtained/Reviewed and Anes Risks/Benef Reviewed Patient Risk: Intermediate Procedure Risk: Low Assessment/Block/Sedation in SS: Assess/Block/Sedation-SS Anesthetic Plan Anesthetic Plan: MAC: Disposition: Standard PACU
[2020-09-30 09:20] VITALS: BMI 35.2
[2020-09-30] MEDS: Ampicillin Sodium 2 GM in 0.9 % Sodium Chloride 100 ML IV (09:45)
[2020-09-30 09:50] VITALS: BP 128/87; PULSE 80; RESP 16; TEMP 36.8; O2SAT 96
[2020-09-30] MEDS: Gentamicin Sulfate/NaCl 80 MG/100 ML PIGGYBACK 100 MG IV (10:11)
[2020-09-30] MEDS: Lactated Ringers 1,000 ML 100 ML IVCONT (10:11)
--- NOTE | 2020-09-30 10:13 | PC.NURSE ---
Patient states that in the past, he has filled out at DNR form. Code status discussed at length with the patient at bedside and he states at this time, he no longer wants a DNR code status. Patient a FULL CODE.
--- NOTE | 2020-09-30 10:56 | P.BOP_ITS ---
Brief Operative Note Date of Service: 09/30/20 Pre-op diagnosis: Nausea and GERD Post-op diagnosis: other (Hiatal hernia, gastritis) Procedure: EGD with biopsies Surgeon: Víctor Brown Anesthesia: MAC Was an Photolettering Machine Operator used for this Procedure?: No Estimated blood loss (mL): 3.0 Pathology: other (A. gastric antrum) Condition: stable Disposition: PACU
[2020-09-30 10:58] VITALS: BP 120/81; PULSE 75; RESP 16; TEMP 36.2; O2SAT 94
[2020-09-30 11:13] VITALS: BP 108/74; PULSE 73; RESP 16; TEMP 36.2; O2SAT 96
--- NOTE | 2020-09-30 11:26 | OP_ITS ---
SURGEON: Víctor Brown MD INDICATIONS: The patient presents for evaluation of chronic nausea and reflux. Full consent has been obtained from him for this, including risks of bleeding and perforation. PREOPERATIVE DIAGNOSIS: POSTOPERATIVE DIAGNOSIS: PROCEDURE PERFORMED: Esophagogastroduodenoscopy with biopsy. ESTIMATED BLOOD LOSS: COMPLICATIONS: ANESTHESIA: Monitored anesthesia care. ASSISTANTS: SPECIMENS: PREOPERATIVE DIAGNOSES: Chronic reflux and nausea. POSTOPERATIVE DIAGNOSES: Chronic reflux and nausea, hiatal hernia, gastritis. DESCRIPTION OF PROCEDURE: The patient was placed in the left lateral decubitus position. The Olympus video gastroscope was passed in the posterior oropharynx and upper esophagus under direct vision. The scope was passed slowly into the distal esophagus. The gastroesophageal junction appeared at 38 cm. There was no sign of any esophagitis nor mass. There was some minimal irregularity, but no gross evidence of Pleitez's esophagus. The scope was entered into the stomach. There was a small hiatal hernia. The scope was advanced to pylorus and duodenum was cannulated to the descending portion. The duodenum including the bulb was carefully inspected. There was some deformity in the duodenal bulb consistent with his previous surgery, but there was no ulceration nor mass. The pylorus also appeared to be somewhat deformed, but was easily patent. The scope was withdrawn back in the stomach. The gastric antrum had areas of erythema, but there was good peristalsis and no erosions nor ulceration. Biopsies were obtained. The scope was retroflexed visualizing the proximal stomach carefully, which appeared normal, without any sign of mass or ulceration. The scope was straightened out and withdrawn back into the esophagus. The esophageal mucosa appeared normal. Scope was withdrawn from the patient. He tolerated the procedure well and was returned to the recovery area in stable condition. IMPRESSION: 1. Hiatal hernia, gastroesophageal reflux. 2. Gastritis. PLAN: The results of the biopsy will be checked. He will continue his current regimen including omeprazole. He will speak with his pain management physician regarding adjustment of any of those medications that might be affecting his nausea. He was given a prescription for amoxicillin to use later today. He did receive prophylactic antibiotics prior to the procedure. He was advised to resume his Eliquis tomorrow. He will be rescheduled for his colonoscopy for later this year. MD KRISTINE Mccoy/AMIRA / [phone]
== END 2020-09-30 14:32 | disposition home or self-care (01) ==
PROVIDERS: PCP Internal Medicine; Visit Provider Internal Medicine
PROC: 0DJ08ZZ Inspection of Upper Intestinal Tract, Via Natural or Artificial Opening Endoscopic (ICD-10-PCS; CPT 43235; principal; 2020-09-30 10:10)
DX: Z12.11 Encounter for screening for malignant neoplasm of colon (principal); K21.9 Gastro-esophageal reflux disease without esophagitis; K29.50 Unspecified chronic gastritis without bleeding; K44.9 Diaphragmatic hernia without obstruction or gangrene; K31.89 Other diseases of stomach and duodenum; I10 Essential (primary) hypertension; D64.9 Anemia, unspecified; K57.30 Diverticulosis of large intestine without perforation or abscess without bleeding; Z79.899 Other long term (current) drug therapy; Z88.8 Allergy status to other drugs, medicaments and biological substances; Z90.49 Acquired absence of other specified parts of digestive tract; Z87.891 Personal history of nicotine dependence
CPT/HCPCS: 43239; 88305; 88342; J0290; J1580; J3010

== ENCOUNTER 2021-01-09 12:47 | Emergency (ER) | payer MEDICARE, SELFPAY | END 2021-01-09 15:45 | disposition left against medical advice (07) | PROVIDERS: Emergency Provider Emergency Medicine; PCP Internal Medicine | DX: R51.9 Headache, unspecified (principal) ==

== ENCOUNTER 2021-01-11 16:22 | Emergency (ER) | payer MEDICARE, SELFPAY ==
--- NOTE | ~2021-01-11 | CT_ITS ---
EXAMINATION: CT BRAIN WITHOUT CONTRAST AND CTA CHEST WITH CONTRAST. CLINICAL INFORMATION: Post trauma. Stopped umbilicus. History of PE. COMPARISON: CT chest 01/25/[address] brain 01/25/2020. TECHNIQUE: 5 mm thin axial and reformatted 2 mm thin sagittal images of brain were obtained without contrast. DLP 937. Subsequently 5 mm thin axial and reformatted 3 mm thin sagittal and coronal images of chest were obtained following IV 65 ml Omnipaque 350. DLP 595 mGy/cm. FINDINGS: Brain: There is no acute intra-axial, extra-axial bleed, masses or midline shift. No acute infarction evolution seen. There is increased the left sylvian fissure subarachnoid space likely from previous left anterior temporal lobe insult. There is no acute infarct in evolution. The lateral ventricles are symmetrical in size and configuration with moderate enlargement. Bone windows reveal no calvarial abnormality. CHEST: There is good opacification pulmonary artery and its branches without any intraluminal filling defect or narrowing. The thoracic aorta is of normal caliber without aneurysm or dissection. Central trachea and the bronchi are widely patent. Size is normal. No pericardial effusion seen. No abnormal mediastinal lymph nodes or mass. Both lungs are fairly well-expanded and clear acute pneumonic process There is no pleural effusion or thickening. The axilla and the chest wall appears unremarkable. Visualized liver, spleen, pancreas and bilateral adrenal glands are unremarkable. There are surgical musa at the GE junction likely from previous intervention. Bone windows reveal no lytic or sclerotic process. Is not compression fracture. CT/CT head/brain wo con IMPRESSION: No acute intracranial process seen. 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 Moderate cerebral volume loss. There is no evidence of PE. No evidence aortic dissection or aneurysm. The lungs are clear.
--- NOTE | ~2021-01-11 | CT_ITS ---
EXAMINATION: CT BRAIN WITHOUT CONTRAST AND CTA CHEST WITH CONTRAST. CLINICAL INFORMATION: Post trauma. Stopped umbilicus. History of PE. COMPARISON: CT chest 01/25/[address] brain 01/25/2020. TECHNIQUE: 5 mm thin axial and reformatted 2 mm thin sagittal images of brain were obtained without contrast. DLP 937. Subsequently 5 mm thin axial and reformatted 3 mm thin sagittal and coronal images of chest were obtained following IV 65 ml Omnipaque 350. DLP 595 mGy/cm. FINDINGS: Brain: There is no acute intra-axial, extra-axial bleed, masses or midline shift. No acute infarction evolution seen. There is increased the left sylvian fissure subarachnoid space likely from previous left anterior temporal lobe insult. There is no acute infarct in evolution. The lateral ventricles are symmetrical in size and configuration with moderate enlargement. Bone windows reveal no calvarial abnormality. CHEST: There is good opacification pulmonary artery and its branches without any intraluminal filling defect or narrowing. The thoracic aorta is of normal caliber without aneurysm or dissection. Central trachea and the bronchi are widely patent. Size is normal. No pericardial effusion seen. No abnormal mediastinal lymph nodes or mass. Both lungs are fairly well-expanded and clear acute pneumonic process There is no pleural effusion or thickening. The axilla and the chest wall appears unremarkable. Visualized liver, spleen, pancreas and bilateral adrenal glands are unremarkable. There are surgical musa at the GE junction likely from previous intervention. Bone windows reveal no lytic or sclerotic process. Is not compression fracture. CT/CT angio chest PE protocol IMPRESSION: No acute intracranial process seen. 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 Moderate cerebral volume loss. There is no evidence of PE. No evidence aortic dissection or aneurysm. The lungs are clear.
[2021-01-11 16:34] VITALS: BP 126/94; PULSE 85; O2SAT 97
[2021-01-11 16:35] VITALS: BP 126/94; RESP 84; O2SAT 97; BMI 31.5
--- NOTE | 2021-01-11 16:45 | ECG_ITS ---
Test Reason : SOB Blood Pressure : / mmHG Vent. Rate : 085 BPM Atrial Rate : 085 BPM P-R Int : 170 ms QRS Dur : 082 ms QT Int : 392 ms P-R-T Axes : 006 026 060 degrees QTc Int : 466 ms Sinus rhythm with Premature atrial complexes Otherwise normal ECG When compared with ECG of 10-SEP-2020 16:17, Ectopic atrial rhythm is no longer Present Referred By: Epi Castillo Electronically Signed By:ANNITA YANEZ
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
[2021-01-11 17:07] LABS: MANUAL DIFF FLAG NO
[2021-01-11 17:12] LABS: Basophils Absolute Auto 0.1 X10*3/uL (0.0-0.2); Basophils Percent Auto 0.5 % (0-2); Eosinophils Absolute Auto 0.1 X10*3/uL (0.0-0.4); Eosinophils Percent Auto 0.6 % (0-4); Hematocrit 41.2 % (42-52); Hemoglobin 13.9 g/dl (14.0-18.0); Imm Gran Abs Auto 0.04 X10*3/uL (0.00-0.03); Imm Gran Pct Auto 0.4 % (0.0-0.4); Lymphocytes Absolute Auto 3.5 X10*3/uL (1.2-4.9); Lymphocytes Percent Auto 32.2 % (20-40); Mean Corpuscular HGB Conc 33.7 g/dl (31.0-36.0); Mean Corpuscular Hemoglobin 30.5 pg (27.0-33.0); Mean Corpuscular Volume 90.5 fL (80-98); Mean Platelet Volume 10.5 fL (9.4-12.4); Monocytes Absolute Auto 0.9 X10*3/uL (0.1-1.2); Monocytes Percent Auto 8.5 % (2-11); Neutrophils Absolute Auto 6.3 X10*3/uL (2.0-8.3); Neutrophils Percent Auto 57.8 % (45-73); Platelet Count 307 X10*3/uL (160-400); Red Blood Count 4.55 X10*6/uL (4.60-5.80); Red Cell Distribution Width 13.4 % (11.0-16.0); White Blood Count 10.9 X10*3/uL (4.8-10.8)
[2021-01-11 17:21] LABS: INTERNATIONAL NORM RATIO 1.1 (0.9-1.1); Prothrombin Time 12.6 SEC (9.9-13.0)
[2021-01-11 17:30] LABS: Alanine Aminotransferase 26 U/L (0-40); Albumin Level 4.2 g/dL (3.5-5.0); Alkaline Phosphatase 72 U/L (39-117); Anion Gap 16 (12-20); Aspartate Amino Transferase 21 U/L (5-37); B Type Natriuretic Peptide 12 pg/mL (<100); Bilirubin Total 0.6 mg/dL (0.0-1.0); Blood Urea Nitrogen 15 mg/dL (9-16); Calcium 9.8 mg/dL (8.4-10.2); Carbon Dioxide 20 mmol/L (22-29); Chloride 107 mmol/L (96-108); Creatinine Clr Calc Pharmacy 78.3; Estimated Glomerular Filt Rate > 60; Glucose Random 116 mg/dL (60-115); Potassium 3.6 mmol/L (3.3-5.1); Sodium 139 mmol/L (135-145); Total Protein 6.6 g/dL (6.5-8.0); Troponin-I High Sensitivity 4.3 ng/L (<3.5-35.0)
[2021-01-11 17:40] LABS: COVID-19 Test Negative (Negative)
[2021-01-11] MEDS: ondansetron HCL 4 MG/2 ML VIAL IVPUSH (18:23)
[2021-01-11] MEDS: HYDROmorphone HCl 0.5 MG/0.5 ML SYRINGE IVPUSH (18:23)
[2021-01-11 18:49] VITALS: BP 127/70; PULSE 72; RESP 18; O2SAT 99
--- NOTE | 2021-01-11 18:51 | PC.NURSE ---
Pt has been becoming increasingly agitated and persistently hitting his call light complaining of severe left arm pain. Pt was medicated with dilaudid
[2021-01-11] MEDS: iohexoL 350 MG/ML 100 ML INFUS..BTL 85 ML IV (19:16)
[2021-01-11 20:14] VITALS: BP 138/90; PULSE 104; RESP 19; O2SAT 97
== END 2021-01-11 20:39 | disposition home or self-care (01) ==
PROVIDERS: Emergency Provider Emergency Medicine
DX: R42 Dizziness and giddiness (principal); R06.02 Shortness of breath; R51.9 Headache, unspecified; F17.210 Nicotine dependence, cigarettes, uncomplicated; Z20.822 Contact with and (suspected) exposure to COVID-19; Z79.899 Other long term (current) drug therapy; Z79.01 Long term (current) use of anticoagulants; Z71.6 Tobacco abuse counseling
CPT/HCPCS: 36415; 70450; 71275; 80053; 83880; 84484; 85025; 85610; 87635; 93005; 96374; 96375; 99284; J1170; J2405; Q9967

== ENCOUNTER 2021-01-27 08:06 | Day surgery (SDC) | payer MEDICARE, SELFPAY ==
--- NOTE | 2021-01-27 09:42 | P.CONAN_ITS ---
[facility] Active Problems Active Problems: All Active Problems (Updated 01/12/21 @ 00:02 by Mike Randall) Tinea cruris (Acute) Dysuria (Acute) Fatigue (Acute) B12 deficiency anemia (Acute) Pulmonary embolism (Acute) Iron deficiency anemia (Acute) Constipation (Acute) SOB (shortness of breath) on exertion (Acute) Anemia (Acute) Prostate cancer (Acute) Peptic ulcer disease (Acute) Iron deficiency anemia (Acute) Gout (Acute) Diverticular disease (Acute) Degenerative disc disease (Acute) Obstructive sleep apnea (Acute) Obesity (BMI 30-39.9) (Acute) GERD (gastroesophageal reflux disease) (Acute)q Anxiety and depression (Acute) Hypertension (Acute) Past Medical History Medical History Anemia Anxiety and depression Atrial fibrillation Degenerative disc disease Diverticular disease GERD (gastroesophageal reflux disease) Gout Hypertension Iron deficiency anemia Knee fracture, left Obesity (BMI 30-39.9) Obstructive sleep apnea Peptic ulcer disease Prostate cancer Vitamin B12 deficiency Vitamin D deficiency Wedge compression fracture of L1 vertebra Family History Family History Father Diabetes Acute kidney failure Mother Lung cancer Surgical History Surgical History H/O hernia repair H/O rectal polypectomy History of bowel resection History of cholecystectomy History of hemiarthroplasty of left hip History of knee replacement procedure of left knee History of pyloroplasty History of Problems with Anesthesia: No Social History Social History Housing: Apartment Alcohol intake: unknown Patient Tobacco Use Status: Former Tobacco user Quit Date: Tobacco use type: Cigar e-Cigarette/Vaping Use: Currently Using Second Hand Smoke Exposure: No Advance Directives: Yes Advance Directives on File: Yes Advance Directives Date on File: 01/30/20 service: No Current occupational status: retired Meds Allergies Allergy/AdvReac Type Severity Reaction Status Date / Time carisoprodol [From Soma] Allergy Mild MENTAL Verified 10/20/20 16:00 STATUS CHANGE, BECOMES AGGRESIVE codeine [Codeine] Allergy Mild STOMACH Verified 10/20/20 16:00 UPSET, RASH Active Medications: Current Medications Sodium Biphosphate/Sodium Phosphate (Sodium Phosphate,Lagrange-Dibasic 133 Ml Enema) 133 ml MT ONCE PRN PRN Reason: Poor Colonoscopy Prep Results Home Medications Medication Instructions Recorded Confirmed Last Taken Type alfuzosin 10 mg tablet,extended 10 mg PO QAM 03/09/20 10/20/20 Unknown History release 24 hr divalproex 500 mg tablet,delayed 500 mg PO QAM tab 05/26/20 10/20/20 01/27/21 History release 500 mg venlafaxine 150 mg 1 cap PO DAILY 09/30/20 10/20/20 01/27/21 History capsule,extended release 24 hr 1 cap baclofen 10 mg tablet 10 mg PO TID PRN 10/20/20 10/20/20 Unknown History dmshwoszxx-hqvzjmsdehuzc-pvdddqep 1 tab PO BEDTIME PRN 10/20/20 10/20/20 Unknown History 50 mg-325 mg-40 mg tablet colchicine 0.6 mg tablet (Colcrys) 0.6 mg PO BID PRN 10/20/20 10/20/20 Unknown History lorazepam 1 mg tablet 1 tab PO BID PRN 10/20/20 10/20/20 Unknown History meclizine 12.5 mg tablet 12.5 mg PO BID PRN 10/20/20 10/20/20 Unknown History promethazine 25 mg tablet 1 tab PO Q6H PRN 10/20/20 10/20/20 Unknown History trazodone 50 mg tablet 1 - 2 tab PO BEDTIME PRN 10/20/20 10/20/20 Unknown History Exam Exam Date and Time: January 27, 2021 0942 Airway Mallampati Class: III TM Dist: >3cm Neck ROM: Full Denture: Lower Loose/Missing/Broken Teeth: Yes and Lower Heart: RRR Lungs: CTA Assessment and Plan Assessment Anesthesia Assessment: Anesthesia Plan Discussed and Chart Reviewed Final Anesthetic Review History of Problems with Anesthesia: No NPO: Yes ASA Class: III Final Preanesthetic Review: Meds/Allgs Chart Reviewed, Consent Obtained/Reviewed and Anes Risks/Benef Reviewed Patient Risk: Intermediate Procedure Risk: Low Anesthetic Plan Anesthetic Plan: MAC: Disposition: Standard PACU
[2021-01-27 09:43] VITALS: BMI 34.5
[2021-01-27] MEDS: Gentamicin Sulfate/NaCl 80 MG/100 ML PIGGYBACK 100 MG IV (09:50)
[2021-01-27 10:00] VITALS: BP 137/84; PULSE 82; RESP 19; TEMP 36.6; O2SAT 97; BMI 34.5
[2021-01-27 11:09] VITALS: BP 124/79; PULSE 77; RESP 18; TEMP 36.3; O2SAT 97
--- NOTE | 2021-01-27 11:17 | P.BOP_ITS ---
Brief Operative Note Date of Service: 01/27/21 Pre-op diagnosis: Screening Post-op diagnosis: other (Colon polyps) Procedure: Colonoscopy to the cecum with snare polypectomy x 4 Surgeon: Víctor Brown Anesthesia: MAC Was an Heavy Equipment Field Mechanic used for this Procedure?: No Estimated blood loss (mL): 0 Pathology: other (A. Cecal polyps B. Ascending colon polyp C. Polyp at 50cm) Condition: stable Disposition: PACU
[2021-01-27 11:24] VITALS: BP 128/78; PULSE 77; RESP 20; TEMP 36.3; O2SAT 97
--- NOTE | 2021-01-27 12:40 | OP_ITS ---
SURGEON: Víctor Brown MD INDICATIONS: The patient presents for evaluation of personal history of tubular adenoma of the colon and colorectal cancer screening. Full consent has been obtained from him for this, including risks of bleeding and perforation. PREOPERATIVE DIAGNOSIS: POSTOPERATIVE DIAGNOSIS: PROCEDURE PERFORMED: Colonoscopy to the cecum with snare polypectomy. ESTIMATED BLOOD LOSS: COMPLICATIONS: ANESTHESIA: Monitored anesthesia care. ASSISTANTS: SPECIMENS: PREOPERATIVE DIAGNOSES: Personal history of tubular adenoma of the colon and colorectal cancer screening. POSTOPERATIVE DIAGNOSES: Personal history of tubular adenoma of the colon and colorectal cancer screening, colon polyps, diverticulosis, and internal hemorrhoids. DESCRIPTION OF PROCEDURE: The patient was placed in the left lateral decubitus position. The digital rectal exam revealed no abnormalities. The [employer] video pediatric colonoscope was entered into the rectum and advanced easily to the cecum. Once in the cecum, there was a considerable amount of liquid stool and small amounts of solid stool. Considerable time was spent irrigating and suctioning. Ultimately fairly good visualization was obtained. There were 2 approximately 10 mm polyps in the cecum, which were each snared and recovered by suction and placed in the same container. The polypectomy sites appeared clean, without any sign of residual polyp nor bleeding. There was transillumination of light deep in the right lower quadrant. The ileocecal valve appeared normal. The scope was then slowly withdrawn assessing all mucosal surfaces carefully. Despite his reported compliance with the 2-day bowel prep, the clean-out was still somewhat limited with a fair amount of liquid stool and some small amounts of solid material. Considerable time was spent irrigating and suctioning. In the ascending colon and at 50 cm were approximately 10 mm polyps, which were each snared and recovered by suction. The polypectomy site appeared clean, without any sign of residual polyp nor bleeding. I did not visualize any other polyps, colitis, nor angiodysplasia. There was a diffuse amount of diverticular disease. In the rectum scope was retroflexed visualizing internal hemorrhoids, but no other pathology. The rectal mucosa appeared normal. The scope was straightened and withdrawn from the patient. He tolerated the procedure well and was returned to recovery area in stable condition. IMPRESSION: 1. Colon polyps, status post snare polypectomy. 2. Diverticulosis. 3. Internal hemorrhoids. PLAN: The results of the pathology will be checked. Given his previous history, today's findings, and again a limited prep, I would recommend a repeat colonoscopy within 1-2 years for further screening and surveillance. He was advised not to use any aspirin or NSAIDs for at least a week. He was advised to resume his Eliquis in 72 hours. MD KRISTINE Mccoy/AMIRA / [id number]
== END 2021-01-27 11:45 | disposition home or self-care (01) ==
PROVIDERS: Visit Provider Internal Medicine
PROC: 0DJD8ZZ Inspection of Lower Intestinal Tract, Via Natural or Artificial Opening Endoscopic (ICD-10-PCS; CPT 45378; principal; 2021-01-27 10:50)
DX: Z12.11 Encounter for screening for malignant neoplasm of colon (principal); Z86.010 Personal history of colon polyps; D12.0 Benign neoplasm of cecum; D12.2 Benign neoplasm of ascending colon; D12.4 Benign neoplasm of descending colon; K57.30 Diverticulosis of large intestine without perforation or abscess without bleeding; K64.8 Other hemorrhoids; K21.9 Gastro-esophageal reflux disease without esophagitis; G47.33 Obstructive sleep apnea (adult) (pediatric); I10 Essential (primary) hypertension; I48.91 Unspecified atrial fibrillation; Z79.01 Long term (current) use of anticoagulants; Z79.899 Other long term (current) drug therapy
CPT/HCPCS: 45385; 88305; J0290; J1580

== ENCOUNTER 2021-06-08 17:10 | Emergency (ER) | payer MEDICARE, SELFPAY ==
--- NOTE | ~2021-06-08 | CT_ITS ---
EXAMINATION: CT ABDOMEN AND PELVIS WITH CONTRAST CLINICAL INFORMATION: Abdominal pain COMPARISON: CT scan abdomen pelvis 09/10/2020 TECHNIQUE: Multidetector volumetric images were obtained from the superior aspect of the liver through the pubic symphysis following administration 85 mL of Omnipaque 350 intravenous contrast. Sagittal and coronal reformatted images were obtained on the technologist's workstation. Oral contrast: No This CT examination was performed using dose optimization techniques as appropriate, variously including the following: *Automated exposure control *Adjustment of mA and/or kV according to patient size (this includes techniques or standardized protocols for targeted exams where dose is matched to indication/reason for exam; i.e. extremities or head) *Use of iterative reconstruction technique DLP: 176 mGy-cm FINDINGS: LUNG BASES: Normal aeration of lung bases. Heart size is prominent. Coronary artery calcification. No pericardial effusion. LIVER, GALLBLADDER, AND BILIARY TREE: The liver is normal in size, shape, and attenuation. No focal hepatic lesion or biliary ductal dilatation is present. Status post cholecystectomy PANCREAS: Pancreas is atrophic. No inflammation of the pancreas. No pancreatic mass. SPLEEN: Unremarkable. ADRENAL GLANDS: Unremarkable. KIDNEYS AND URETERS: The kidneys are normal in size, shape, and attenuation. No hydronephrosis, hydroureter, or calculi seen. No perinephric stranding. BLADDER: Unremarkable. GASTROINTESTINAL TRACT: There are scattered diverticula throughout the colon. There is no diverticulitis. There is no bowel wall thickening /edema. There is no bowel obstruction. There is a moderate volume of stool in the colon. The appendix is normal . The small bowel loops are unremarkable. Surgical clips at the GE junction. No hiatal hernia. Stomach is otherwise unremarkable. ABDOMINAL WALL: Surgical mesh at the anterior abdominal wall. No recurrent hernia. No inflammation or fluid collection. LYMPH NODES: Normal. VASCULAR: Atherosclerotic vascular calcifications throughout the abdomen and the pelvis. There is no aneurysm. PELVIC VISCERA: Radiation therapy seeds in the prostate. OSSEOUS STRUCTURES: Proximal 50% loss of height L1 vertebrae status post thoracoplasty. Degenerative spondylosis of dorsal lumbar spine. Status post left hip replacement. Mildly displaced fracture of the posterior right 12th rib. This is new since CT chest 01/11/2021 but appears to be an old fracture. 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 This is unchanged since CAT scan 09/10/2020 CT scan abdomen and pelvis. CT/CT abdomen pelvis w con IMPRESSION: No acute abnormality CT scan abdomen pelvis. Fleischner guidelines were followed.
[2021-06-08 17:14] VITALS: BP 155/94; PULSE 84; RESP 18; TEMP 36.8; O2SAT 97; BMI 34.5
[2021-06-08 18:31] LABS: OBS Int Ctl Valid YES; OBS1 NEGATIVE (NEGATIVE)
--- NOTE | 2021-06-08 18:36 | ED.GENADULT ---
HPI - General Adult General Chief complaint: General Medical Stated complaint: ? internal bleeding ,sent in from dr Time Seen by Provider: 06/08/21 17:32 History of Present Illness HPI narrative: Patient is a 75-year-old male presents today with having diffuse abdominal pain is ongoing for about a month. Also complaining of black stool for 1 month. Patient is on Eliquis. He is currently on iron pills as well. Patient denies any fever chills any coughing congestion upper respiratory symptoms is not on NSAIDs and does not drink alcohol. The pain is dull diffuse he does not have any previous history of abdominal surgery does have a previous history of PE and that is why he is on Eliquis. No diaphoresis. Claims the stool is hard and it is black. Related Data Home Medications Medication Instructions Recorded Confirmed alfuzosin 10 mg tablet,extended 10 mg PO QAM 03/09/20 04/17/21 release 24 hr divalproex 500 mg tablet,delayed 500 mg PO QAM tab 05/26/20 04/17/21 release baclofen 10 mg tablet 10 mg PO TID PRN 10/20/20 04/17/21 [id number]-szqzsfqpfgwwr-nicrtfje 1 tab PO BEDTIME PRN 10/20/20 04/17/21 50 mg-325 mg-40 mg tablet colchicine 0.6 mg tablet (Colcrys) 0.6 mg PO BID PRN 10/20/20 04/17/21 lorazepam 1 mg tablet 1 tab PO BID PRN 10/20/20 04/17/21 meclizine 12.5 mg tablet 12.5 mg PO BID PRN 10/20/20 04/17/21 promethazine 25 mg tablet 1 tab PO Q6H PRN 10/20/20 04/17/21 trazodone 50 mg tablet 1 - 2 tab PO BEDTIME PRN 10/20/20 04/17/21 venlafaxine 150 mg 187.5 mg PO DAILY cap 04/17/21 04/17/21 capsule,extended release 24 hr Previous Rx's Medication Instructions Recorded fexofenadine 180 mg tablet 180 mg PO DAILY PRN #30 cap 05/22/20 ondansetron HCl 8 mg tablet 8 mg PO Q8H PRN #30 tab 06/21/20 ascorbate calcium (vitamin C) 500 500 mg PO DAILY #30 tab 07/27/20 mg tablet lactulose 20 gram/30 mL oral 20 g (30 mL) PO BID PRN #3000 ml 08/01/20 solution diphenhydramine HCl 25 mg capsule 25 mg PO TID PRN #14 cap 09/10/20 (Benadryl) metoclopramide HCl 10 mg tablet 10 mg PO Q6H PRN #30 tab 09/10/20 (Reglan) tramadol 50 mg tablet 50 mg PO BID PRN #14 tab 09/10/20 buprenorphine HCl 300 mcg buccal 300 mcg BUCCAL Q12H #60 ea 11/30/20 film (Belbuca) clotrimazole 1 % topical cream 1 appl TOPICAL BID 28 Days #45 g 11/30/20 miconazole nitrate 2 % topical 1 appl TOPICAL BID #71 g 11/30/20 powder (Zeasorb AF) semaglutide 0.25 mg (0.2 mL) SUBCUT QWEEK 30 11/30/20 Days #1 ml clotrimazole-betamethasone 1 1 appl TOPICAL BID 28 Days #45 g 12/06/20 %-0.05 % topical cream ferrous sulfate 325 mg (65 mg 325 mg PO DAILY #90 tab 12/13/20 iron) tablet (Feosol) omeprazole 40 mg capsule,delayed 40 mg PO DAILY 90 Days #90 cap 12/21/20 release nystatin 100,000 unit/gram topical 1 appl TOPICAL TID #30 g 12/29/20 ointment meclizine 12.5 mg tablet 12.5 mg PO TID #20 tab 01/11/21 apixaban 5 mg tablet 5 mg PO BID 90 Days #180 tab 01/19/21 amlodipine 10 mg tablet 10 mg PO DAILY #90 cap 04/17/21 cyanocobalamin (vitamin B-12) 1,000 mcg SUBCUT .Qmonthly #3 cap 06/01/21 1,000 mcg/mL injection solution syringe with needle, safety 3 mL #100 ea 06/02/21 25 gauge x 5/8 (BD Safety-Jackie Detachable Needle) Allergies Allergy/AdvReac Type Severity Reaction Status Date / Time carisoprodol [From Soma] Allergy Mild MENTAL Verified 04/17/21 14:12 STATUS CHANGE, BECOMES AGGRESIVE codeine [Codeine] Allergy Mild STOMACH Verified 04/17/21 14:12 UPSET, RASH gabapentin AdvReac Intermediate lousy Verified 04/17/21 14:30 feeling Review of Systems Review of Systems: No fever no chills no diaphoresis Or chest pain No coughing congestion All system reviewed otherwise negative [facility] Past Medical History Attestation statement: The following information was validated with the patient. Source: unable to obtain Medical History (Updated 06/08/21 @ 20:37 by Daniela Szymanski MD) Anemia Anxiety and depression Atrial fibrillation Degenerative disc disease Diverticular disease Generalized anxiety disorder GERD (gastroesophageal reflux disease) Gout Hypertension Iron deficiency anemia Knee fracture, left Obesity (BMI 30-39.9) Obstructive sleep apnea Peptic ulcer disease Prostate cancer Vitamin B12 deficiency Vitamin D deficiency Wedge compression fracture of L1 vertebra Surgical History H/O hernia repair H/O rectal polypectomy History of bowel resection History of cholecystectomy History of hemiarthroplasty of left hip History of knee replacement procedure of left knee History of pyloroplasty Family History Family History Father Diabetes Acute kidney failure Mother Lung cancer Social History Social History Housing: Apartment Alcohol intake: unknown Patient Tobacco Use Status: Former Tobacco user Quit Date: Tobacco use type: Cigar e-Cigarette/Vaping Use: Currently Using Second Hand Smoke Exposure: No Advance Directives: No Advance Directives Date on File: 01/30/20 service: No Current occupational status: retired Physical Exam Vital Signs: Vital Signs: Last Vital Signs Temp 98.3 F 06/08/21 17:14 Pulse 73 06/08/21 19:02 Resp 18 06/08/21 17:14 BP 126/79 06/08/21 19:02 Pulse Ox 94 06/08/21 19:02 BMI result Body Mass Index 34.5 Appearance: Alert. Oriented X3. No acute distress. Eyes: Pupils equal, round and reactive to light. ENT: Pharynx normal. Neck: Normal inspection. Neck supple. No lymph nodes noted. No crepitus CVS: Normal heart rate and rhythm. Pulses normal. Normal S1 and S2 Respiratory: No respiratory distress. Breath sounds normal. No Wheezing. No rales Abdomen: Soft and nontender. No rigidity. No distention. good BS x4 Rectal heme negative brown stool Skin: Skin warm and dry. Normal skin color. Normal skin turgor. Extremities: No lower extremity edema. Neurovascular intact to all extremities. No Lacerations. No Rash Neuro: Oriented X 3. No motor deficit. No sensory deficit. Moving all extermities. No slurred speech Medical Decision Making MDM Narrative Medical decision making narrative: Patient's labs are unremarkable. Hemoglobin is baseline. Rectal exam showed brown stool heme-negative. No evidence for GI bleed. A CT scan of the abdomen was done for the abdominal pain. There is negative will discharge patient CT scan done to rule out the possibility of obstruction, abscess perforation. Currently in stable condition Lab Data Lab results reviewed: Yes I reviewed the patient's lab results. Result diagrams: 06/08/21 19:22 06/08/21 19:22 Labs: Lab Results 06/08/21 06/08/21 06/08/21 Range/Units 18:23 19:22 19:22 WBC 9.8 (4.8-10.8) X10*3/uL RBC 4.13 L (4.60-5.80) X10*6/uL Hgb 12.9 L (14.0-18.0) g/dl Hct 38.8 L (42.0-52.0) % MCV 93.9 (80.0-98.0) fL MCH 31.2 (27.0-33.0) pg MCHC 33.2 (31.0-36.0) g/dl RDW 13.3 (11.0-16.0) % Plt Count 289 (160-400) X10*3/uL MPV 10.0 (9.4-12.4) fL Immature Gran % (Auto) 0.4 (0.0-0.4) % Neut % (Auto) 59.3 (45-73) % Lymph % (Auto) 30.9 (20-40) % [place] % (Auto) 8.3 (2-11) % Eos % (Auto) 0.5 (0-4) % Baso % (Auto) 0.6 (0-2) % Lymph # (Auto) 3.0 (1.2-4.9) X10*3/uL [place] # (Auto) 0.8 (0.1-1.2) X10*3/uL Eos # (Auto) 0.1 (0.0-0.4) X10*3/uL Baso # (Auto) 0.1 (0.0-0.2) X10*3/uL Abs Immat Gran (auto) 0.04 H (0.00-0.03) X10*3/uL Absolute Neuts (auto) 5.8 (2.0-8.3) x10*3/uL Absolute Nucleated RBC 0.000 (0.0-0.012) X10*3/uL Nucleated RBC % (auto) 0.0 (0.0-0.2) /100WBC PT 11.9 (9.9-13.0) SEC INR 1.0 (0.9-1.1) APTT 38.5 H (24.1-38.0) SEC Sodium (135-145) mmol/L Potassium (3.3-5.1) mmol/L Chloride (96-108) mmol/L Carbon Dioxide (22-29) mmol/L Anion Gap (12-20) BUN (9-16) mg/dL Creatinine (0.5-1.4) mg/dL Estim Creat Clear Calc Estimated GFR Random Glucose (60-115) mg/dL Calcium (8.4-10.2) mg/dL Magnesium (1.6-2.6) mg/dL Total Bilirubin (0.0-1.0) mg/dL Direct Bilirubin (0.0-0.5) mg/dL AST (5-37) U/L ALT (0-40) U/L Alkaline Phosphatase (39-117) U/L Total Protein (6.5-8.0) g/dL Albumin (3.5-5.0) g/dL Urine Color Urine Appearance Urine pH (5.0-8.0) Ur Specific [place] (1.005-1.025) Urine Protein (NEG-TRACE) MG/DL Urine Glucose (UA) (NEG) MG/DL Urine Ketones (NEG) MG/DL Urine Blood (NEG) Urine Nitrite (NEG) Ur Leukocyte Esterase (NEG) Stool Occult Blood NEGATIVE (NEGATIVE) COVID-19 (MAGY) (Negative) COVID-19 Clin Com Blood Type 06/08/21 06/08/21 06/08/21 Range/Units 19:22 19:22 19:53 WBC (4.8-10.8) X10*3/uL RBC (4.60-5.80) X10*6/uL Hgb (14.0-18.0) g/dl Hct (42.0-52.0) % MCV (80.0-98.0) fL MCH (27.0-33.0) pg MCHC (31.0-36.0) g/dl RDW (11.0-16.0) % Plt Count (160-400) X10*3/uL MPV (9.4-12.4) fL Immature Gran % (Auto) (0.0-0.4) % Neut % (Auto) (45-73) % Lymph % (Auto) (20-40) % [place] % (Auto) (2-11) % Eos % (Auto) (0-4) % Baso % (Auto) (0-2) % Lymph # (Auto) (1.2-4.9) X10*3/uL [place] # (Auto) (0.1-1.2) X10*3/uL Eos # (Auto) (0.0-0.4) X10*3/uL Baso # (Auto) (0.0-0.2) X10*3/uL Abs Immat Gran (auto) (0.00-0.03) X10*3/uL Absolute Neuts (auto) (2.0-8.3) x10*3/uL Absolute Nucleated RBC (0.0-0.012) X10*3/uL Nucleated RBC % (auto) (0.0-0.2) /100WBC PT (9.9-13.0) SEC INR (0.9-1.1) APTT (24.1-38.0) SEC Sodium 137 (135-145) mmol/L Potassium 4.2 (3.3-5.1) mmol/L Chloride 104 (96-108) mmol/L Carbon Dioxide 26 (22-29) mmol/L Anion Gap 11 L (12-20) BUN 19 H (9-16) mg/dL Creatinine 0.89 (0.5-1.4) mg/dL Estim Creat Clear Calc 95.6 Estimated GFR > 60 Random Glucose 96 (60-115) mg/dL Calcium 8.6 D (8.4-10.2) mg/dL Magnesium 2.0 (1.6-2.6) mg/dL Total Bilirubin 0.3 (0.0-1.0) mg/dL Direct Bilirubin < 0.2 (0.0-0.5) mg/dL AST 13 (5-37) U/L ALT 12 (0-40) U/L Alkaline Phosphatase 79 (39-117) U/L Total Protein 6.5 (6.5-8.0) g/dL Albumin 3.9 (3.5-5.0) g/dL Urine Color Urine Appearance Urine pH (5.0-8.0) Ur Specific [place] (1.005-1.025) Urine Protein (NEG-TRACE) MG/DL Urine Glucose (UA) (NEG) MG/DL Urine Ketones (NEG) MG/DL Urine Blood (NEG) Urine Nitrite (NEG) Ur Leukocyte Esterase (NEG) Stool Occult Blood (NEGATIVE) COVID-19 (MAGY) Negative (Negative) COVID-19 Clin Com See Note Blood Type O Positive 06/08/21 Range/Units 20:13 WBC (4.8-10.8) X10*3/uL RBC (4.60-5.80) X10*6/uL Hgb (14.0-18.0) g/dl Hct (42.0-52.0) % MCV (80.0-98.0) fL MCH (27.0-33.0) pg MCHC (31.0-36.0) g/dl RDW (11.0-16.0) % Plt Count (160-400) X10*3/uL MPV (9.4-12.4) fL Immature Gran % (Auto) (0.0-0.4) % Neut % (Auto) (45-73) % Lymph % (Auto) (20-40) % [place] % (Auto) (2-11) % Eos % (Auto) (0-4) % Baso % (Auto) (0-2) % Lymph # (Auto) (1.2-4.9) X10*3/uL [place] # (Auto) (0.1-1.2) X10*3/uL Eos # (Auto) (0.0-0.4) X10*3/uL Baso # (Auto) (0.0-0.2) X10*3/uL Abs Immat Gran (auto) (0.00-0.03) X10*3/uL Absolute Neuts (auto) (2.0-8.3) x10*3/uL Absolute Nucleated RBC (0.0-0.012) X10*3/uL Nucleated RBC % (auto) (0.0-0.2) /100WBC PT (9.9-13.0) SEC INR (0.9-1.1) APTT (24.1-38.0) SEC Sodium (135-145) mmol/L Potassium (3.3-5.1) mmol/L Chloride (96-108) mmol/L Carbon Dioxide (22-29) mmol/L Anion Gap (12-20) BUN (9-16) mg/dL Creatinine (0.5-1.4) mg/dL Estim Creat Clear Calc Estimated GFR Random Glucose (60-115) mg/dL Calcium (8.4-10.2) mg/dL Magnesium (1.6-2.6) mg/dL Total Bilirubin (0.0-1.0) mg/dL Direct Bilirubin (0.0-0.5) mg/dL AST (5-37) U/L ALT (0-40) U/L Alkaline Phosphatase (39-117) U/L Total Protein (6.5-8.0) g/dL Albumin (3.5-5.0) g/dL Urine Color YELLOW Urine Appearance CLEAR Urine pH 5.5 (5.0-8.0) Ur Specific [place] >= 1.030 H (1.005-1.025) Urine Protein NEG (NEG-TRACE) MG/DL Urine Glucose (UA) NEG (NEG) MG/DL Urine Ketones NEG (NEG) MG/DL Urine Blood NEG (NEG) Urine Nitrite NEG (NEG) Ur Leukocyte Esterase NEG (NEG) Stool Occult Blood (NEGATIVE) COVID-19 (MAGY) (Negative) COVID-19 Clin Com Blood Type Discharge Plan Discharge Clinical Impression: Abdominal pain Patient Disposition: Home, Self-Care Instructions: Abdominal Pain (ED) Prescriptions: No Action fexofenadine 180 mg tablet 180 mg PO DAILY PRN (Reason: allergy symptoms) Qty: 30 11RF ascorbate calcium (vitamin C) 500 mg tablet 500 mg PO DAILY Qty: 30 3RF clotrimazole-betamethasone 1-0.05 % cream 1 appl topical BID 28 Days Qty: 45 0RF ferrous sulfate [Feosol] 325 mg (65 mg iron) tablet 325 mg PO DAILY Qty: 90 2RF omeprazole 40 mg capsule,delayed release(DR/EC) 40 mg PO DAILY 90 Days Qty: 90 3RF nystatin 100,000 unit/gram ointment 1 appl topical TID Qty: 30 0RF apixaban 5 mg tablet 5 mg PO BID 90 Days Qty: 180 1RF cyanocobalamin (vitamin B-12) 1,000 mcg/mL solution 1,000 mcg subcut .Qmonthly Qty: 3 3RF (DME) BD Safety-Jackie Detachable Needl 3 mL 25 gauge x 5/8 syringe See Rx Instructions .ROUTE .MEDSUPPLY Qty: 100 12RF Rx Instructions: As directed tramadol 50 mg tablet 50 mg PO BID PRN (Reason: pain) Qty: 14 0RF metoclopramide HCl [Reglan] 10 mg tablet 10 mg PO Q6H PRN (Reason: nausea and vomiting) Qty: 30 0RF diphenhydramine HCl [Benadryl] 25 mg capsule 25 mg PO TID PRN (Reason: nausea and vomiting) Qty: 14 0RF baclofen 10 mg tablet 10 mg PO TID PRN (Reason: Spasms) 0RF Rx Instructions: Take 3 times a day with Food or Milk. trazodone 50 mg tablet 1 - 2 tab PO BEDTIME PRN (Reason: Insomnia) 0RF meclizine 12.5 mg tablet 12.5 mg PO BID PRN (Reason: Nausea) 0RF tmwmxvvbnu-wxmiykljqqquh-wmrn 50-325-40 mg tablet 1 tab PO BEDTIME PRN (Reason: Migraine Headache) 0RF promethazine 25 mg tablet 1 tab PO Q6H PRN (Reason: nausea) 0RF lorazepam 1 mg tablet 1 tab PO BID PRN (Reason: Anxiety) 0RF colchicine [Colcrys] 0.6 mg Tablet 0.6 mg PO BID PRN (Reason: Pain) 0RF meclizine 12.5 mg tablet 12.5 mg PO TID Qty: 20 0RF venlafaxine 150 mg capsule,extended release 24hr 187.5 mg PO DAILY 0RF alfuzosin 10 mg tablet extended release 24 hr 10 mg PO QAM 0RF divalproex 500 mg tablet,delayed release (DR/EC) 500 mg PO QAM 0RF ondansetron HCl 8 mg tablet 8 mg PO Q8H PRN (Reason: nausea and vomiting) Qty: 30 0RF lactulose 20 gram/30 mL solution 20 g PO BID PRN (Reason: constipation) Qty: 3000 0RF clotrimazole 1 % cream 1 appl topical BID 28 Days Qty: 45 1RF Zeasorb AF 2 % powder 1 appl topical BID Qty: 71 1RF Belbuca 300 mcg film 300 mcg buccal Q12H Qty: 60 0RF Rx Instructions: pain management rx semaglutide 0.25 mg or 0.5 mg(2 mg/1.5 mL) pen injector 0.25 mg subcut QWEEK 30 Days Qty: 1 1RF Rx Instructions: for 4 doses amlodipine 10 mg tablet 10 mg PO DAILY Qty: 90 2RF Referrals: Po,Thania Childs MD [Primary Care Provider] - 2 days
[2021-06-08 19:02] VITALS: BP 126/79; PULSE 73; O2SAT 94
[2021-06-08 19:26] LABS: MANUAL DIFF FLAG NO
[2021-06-08 19:33] LABS: Basophils Absolute Auto 0.1 X10*3/uL (0.0-0.2); Basophils Percent Auto 0.6 % (0-2); Eosinophils Absolute Auto 0.1 X10*3/uL (0.0-0.4); Eosinophils Percent Auto 0.5 % (0-4); Hematocrit 38.8 % (42.0-52.0); Hemoglobin 12.9 g/dl (14.0-18.0); Imm Gran Abs Auto 0.04 X10*3/uL (0.00-0.03); Imm Gran Pct Auto 0.4 % (0.0-0.4); Lymphocytes Percent Auto 30.9 % (20-40); Mean Corpuscular HGB Conc 33.2 g/dl (31.0-36.0); Mean Corpuscular Hemoglobin 31.2 pg (27.0-33.0); Mean Corpuscular Volume 93.9 fL (80.0-98.0); Monocytes Absolute Auto 0.8 X10*3/uL (0.1-1.2); Monocytes Percent Auto 8.3 % (2-11); Neutrophils Absolute Auto 5.8 x10*3/uL (2.0-8.3); Neutrophils Percent Auto 59.3 % (45-73); Platelet Count 289 X10*3/uL (160-400); Red Blood Count 4.13 X10*6/uL (4.60-5.80); Red Cell Distribution Width 13.3 % (11.0-16.0); White Blood Count 9.8 X10*3/uL (4.8-10.8)
[2021-06-08 19:44] LABS: Alanine Aminotransferase 12 U/L (0-40); Albumin Level 3.9 g/dL (3.5-5.0); Alkaline Phosphatase 79 U/L (39-117); Anion Gap 11 (12-20); Aspartate Amino Transferase 13 U/L (5-37); Bilirubin Direct < 0.2 mg/dL (0.0-0.5); Bilirubin Total 0.3 mg/dL (0.0-1.0); Blood Urea Nitrogen 19 mg/dL (9-16); Calcium 8.6 mg/dL (8.4-10.2); Carbon Dioxide 26 mmol/L (22-29); Chloride 104 mmol/L (96-108); Creatinine Clr Calc Pharmacy 95.6; Estimated Glomerular Filt Rate > 60; Glucose Random 96 mg/dL (60-115); Potassium 4.2 mmol/L (3.3-5.1); Prothrombin Time 11.9 SEC (9.9-13.0); Sodium 137 mmol/L (135-145); Total Protein 6.5 g/dL (6.5-8.0)
[2021-06-08 19:45] LABS: COVID-19 Test Negative (Negative)
[2021-06-08 19:47] LABS: Partial Thromboplastin Time 38.5 SEC (24.1-38.0)
[2021-06-08 20:18] LABS: Appearance Urine CLEAR; Color Urine YELLOW; Glucose Urine UA NEG (NEG); Leukocyte Esterase Urine NEG (NEG); Nitrite Urine NEG (NEG); PH 5.5 (5.0-8.0); Specific Gravity - Urine >= 1.030 (1.005-1.025); Urine Blood NEG (NEG); Urine Ketones NEG (NEG); Urine Protein NEG (NEG-TRACE)
[2021-06-08] MEDS: iohexoL 350 MG/ML 100 ML INFUS..BTL 85 ML IV (20:23)
--- NOTE | 2021-06-08 21:31 | ED_ITS ---
HPI - General Adult General Chief complaint: General Medical Stated complaint: ? internal bleeding ,sent in from dr Time Seen by Provider: 06/08/21 17:32 Related Data Home Medications Medication Instructions Recorded Confirmed alfuzosin 10 mg tablet,extended 10 mg PO QAM 03/09/20 04/17/21 release 24 hr divalproex 500 mg tablet,delayed 500 mg PO QAM tab 05/26/20 04/17/21 release baclofen 10 mg tablet 10 mg PO TID PRN 10/20/20 04/17/21 xscpzqnomb-avschsbzkmlyo-txvaacbz 1 tab PO BEDTIME PRN 10/20/20 04/17/21 50 mg-325 mg-40 mg tablet colchicine 0.6 mg tablet (Colcrys) 0.6 mg PO BID PRN 10/20/20 04/17/21 lorazepam 1 mg tablet 1 tab PO BID PRN 10/20/20 04/17/21 meclizine 12.5 mg tablet 12.5 mg PO BID PRN 10/20/20 04/17/21 promethazine 25 mg tablet 1 tab PO Q6H PRN 10/20/20 04/17/21 trazodone 50 mg tablet 1 - 2 tab PO BEDTIME PRN 10/20/20 04/17/21 venlafaxine 150 mg 187.5 mg PO DAILY cap 04/17/21 04/17/21 capsule,extended release 24 hr Previous Rx's Medication Instructions Recorded fexofenadine 180 mg tablet 180 mg PO DAILY PRN #30 cap 05/22/20 ondansetron HCl 8 mg tablet 8 mg PO Q8H PRN #30 tab 06/21/20 ascorbate calcium (vitamin C) 500 500 mg PO DAILY #30 tab 07/27/20 mg tablet lactulose 20 gram/30 mL oral 20 g (30 mL) PO BID PRN #3000 ml 08/01/20 solution diphenhydramine HCl 25 mg capsule 25 mg PO TID PRN #14 cap 09/10/20 (Benadryl) metoclopramide HCl 10 mg tablet 10 mg PO Q6H PRN #30 tab 09/10/20 (Reglan) tramadol 50 mg tablet 50 mg PO BID PRN #14 tab 09/10/20 buprenorphine HCl 300 mcg buccal 300 mcg BUCCAL Q12H #60 ea 11/30/20 film (Belbuca) clotrimazole 1 % topical cream 1 appl TOPICAL BID 28 Days #45 g 11/30/20 miconazole nitrate 2 % topical 1 appl TOPICAL BID #71 g 11/30/20 powder (Zeasorb AF) semaglutide 0.25 mg (0.2 mL) SUBCUT QWEEK 30 11/30/20 Days #1 ml clotrimazole-betamethasone 1 1 appl TOPICAL BID 28 Days #45 g 12/06/20 %-0.05 % topical cream ferrous sulfate 325 mg (65 mg 325 mg PO DAILY #90 tab 12/13/20 iron) tablet (Feosol) omeprazole 40 mg capsule,delayed 40 mg PO DAILY 90 Days #90 cap 12/21/20 release nystatin 100,000 unit/gram topical 1 appl TOPICAL TID #30 g 12/29/20 ointment meclizine 12.5 mg tablet 12.5 mg PO TID #20 tab 01/11/21 apixaban 5 mg tablet 5 mg PO BID 90 Days #180 tab 01/19/21 amlodipine 10 mg tablet 10 mg PO DAILY #90 cap 04/17/21 cyanocobalamin (vitamin B-12) 1,000 mcg SUBCUT .Qmonthly #3 cap 06/01/21 1,000 mcg/mL injection solution syringe with needle, safety 3 mL #100 ea 06/02/21 25 gauge x 5/8 (BD Safety-Jackie Detachable Needle) Allergies Allergy/AdvReac Type Severity Reaction Status Date / Time carisoprodol [From Soma] Allergy Mild MENTAL Verified 04/17/21 14:12 STATUS CHANGE, BECOMES AGGRESIVE codeine [Codeine] Allergy Mild STOMACH Verified 04/17/21 14:12 UPSET, RASH gabapentin AdvReac Intermediate lousy Verified 04/17/21 14:30 feeling PMFSH Past Medical History Medical History (Updated 06/09/21 @ 00:02 by Mike Cabral) Anemia Anxiety and depression Atrial fibrillation Degenerative disc disease Diverticular disease Generalized anxiety disorder GERD (gastroesophageal reflux disease) Gout Hypertension Iron deficiency anemia Knee fracture, left Obesity (BMI 30-39.9) Obstructive sleep apnea Peptic ulcer disease Prostate cancer Vitamin B12 deficiency Vitamin D deficiency Wedge compression fracture of L1 vertebra Surgical History H/O hernia repair H/O rectal polypectomy History of bowel resection History of cholecystectomy History of hemiarthroplasty of left hip History of knee replacement procedure of left knee History of pyloroplasty Family History Family History Father Diabetes Acute kidney failure Mother Lung cancer Social History Social History Housing: Apartment Alcohol intake: unknown Patient Tobacco Use Status: Former Tobacco user Quit Date: Tobacco use type: Cigar e-Cigarette/Vaping Use: Currently Using Second Hand Smoke Exposure: No Advance Directives: No Advance Directives Date on File: 01/30/20 service: No Current occupational status: retired Medical Decision Making MDM Narrative Medical decision making narrative: Patient long history of ETOH hemoglobin is 12.9 which is baseline. Occult stool was negative no evidence for bleeding. Discussed with patient need for follow- up. In stable condition. Lab Data Result diagrams: 06/08/21 19:22 06/08/21 19:22 Labs: Lab Results 06/08/21 06/08/21 06/08/21 Range/Units 18:23 19:22 19:22 WBC 9.8 (4.8-10.8) X10*3/uL RBC 4.13 L (4.60-5.80) X10*6/uL Hgb 12.9 L (14.0-18.0) g/dl Hct 38.8 L (42.0-52.0) % MCV 93.9 (80.0-98.0) fL MCH 31.2 (27.0-33.0) pg MCHC 33.2 (31.0-36.0) g/dl RDW 13.3 (11.0-16.0) % Plt Count 289 (160-400) X10*3/uL MPV 10.0 (9.4-12.4) fL Immature Gran % (Auto) 0.4 (0.0-0.4) % Neut % (Auto) 59.3 (45-73) % Lymph % (Auto) 30.9 (20-40) % [place] % (Auto) 8.3 (2-11) % Eos % (Auto) 0.5 (0-4) % Baso % (Auto) 0.6 (0-2) % Lymph # (Auto) 3.0 (1.2-4.9) X10*3/uL [place] # (Auto) 0.8 (0.1-1.2) X10*3/uL Eos # (Auto) 0.1 (0.0-0.4) X10*3/uL Baso # (Auto) 0.1 (0.0-0.2) X10*3/uL Abs Immat Gran (auto) 0.04 H (0.00-0.03) X10*3/uL Absolute Neuts (auto) 5.8 (2.0-8.3) x10*3/uL Absolute Nucleated RBC 0.000 (0.0-0.012) X10*3/uL Nucleated RBC % (auto) 0.0 (0.0-0.2) /100WBC PT 11.9 (9.9-13.0) SEC INR 1.0 (0.9-1.1) APTT 38.5 H (24.1-38.0) SEC Sodium (135-145) mmol/L Potassium (3.3-5.1) mmol/L Chloride (96-108) mmol/L Carbon Dioxide (22-29) mmol/L Anion Gap (12-20) BUN (9-16) mg/dL Creatinine (0.5-1.4) mg/dL Estim Creat Clear Calc Estimated GFR Random Glucose (60-115) mg/dL Calcium (8.4-10.2) mg/dL Magnesium (1.6-2.6) mg/dL Total Bilirubin (0.0-1.0) mg/dL Direct Bilirubin (0.0-0.5) mg/dL AST (5-37) U/L ALT (0-40) U/L Alkaline Phosphatase (39-117) U/L Total Protein (6.5-8.0) g/dL Albumin (3.5-5.0) g/dL Urine Color Urine Appearance Urine pH (5.0-8.0) Ur Specific [place] (1.005-1.025) Urine Protein (NEG-TRACE) MG/DL Urine Glucose (UA) (NEG) MG/DL Urine Ketones (NEG) MG/DL Urine Blood (NEG) Urine Nitrite (NEG) Ur Leukocyte Esterase (NEG) Stool Occult Blood NEGATIVE (NEGATIVE) COVID-19 (MAGY) (Negative) COVID-19 Clin Com Blood Type Antibody Screen 06/08/21 06/08/21 06/08/21 Range/Units 19:22 19:22 19:53 WBC (4.8-10.8) X10*3/uL RBC (4.60-5.80) X10*6/uL Hgb (14.0-18.0) g/dl Hct (42.0-52.0) % MCV (80.0-98.0) fL MCH (27.0-33.0) pg MCHC (31.0-36.0) g/dl RDW (11.0-16.0) % Plt Count (160-400) X10*3/uL MPV (9.4-12.4) fL Immature Gran % (Auto) (0.0-0.4) % Neut % (Auto) (45-73) % Lymph % (Auto) (20-40) % [place] % (Auto) (2-11) % Eos % (Auto) (0-4) % Baso % (Auto) (0-2) % Lymph # (Auto) (1.2-4.9) X10*3/uL [place] # (Auto) (0.1-1.2) X10*3/uL Eos # (Auto) (0.0-0.4) X10*3/uL Baso # (Auto) (0.0-0.2) X10*3/uL Abs Immat Gran (auto) (0.00-0.03) X10*3/uL Absolute Neuts (auto) (2.0-8.3) x10*3/uL Absolute Nucleated RBC (0.0-0.012) X10*3/uL Nucleated RBC % (auto) (0.0-0.2) /100WBC PT (9.9-13.0) SEC INR (0.9-1.1) APTT (24.1-38.0) SEC Sodium 137 (135-145) mmol/L Potassium 4.2 (3.3-5.1) mmol/L Chloride 104 (96-108) mmol/L Carbon Dioxide 26 (22-29) mmol/L Anion Gap 11 L (12-20) BUN 19 H (9-16) mg/dL Creatinine 0.89 (0.5-1.4) mg/dL Estim Creat Clear Calc 95.6 Estimated GFR > 60 Random Glucose 96 (60-115) mg/dL Calcium 8.6 D (8.4-10.2) mg/dL Magnesium 2.0 (1.6-2.6) mg/dL Total Bilirubin 0.3 (0.0-1.0) mg/dL Direct Bilirubin < 0.2 (0.0-0.5) mg/dL AST 13 (5-37) U/L ALT 12 (0-40) U/L Alkaline Phosphatase 79 (39-117) U/L Total Protein 6.5 (6.5-8.0) g/dL Albumin 3.9 (3.5-5.0) g/dL Urine Color Urine Appearance Urine pH (5.0-8.0) Ur Specific [place] (1.005-1.025) Urine Protein (NEG-TRACE) MG/DL Urine Glucose (UA) (NEG) MG/DL Urine Ketones (NEG) MG/DL Urine Blood (NEG) Urine Nitrite (NEG) Ur Leukocyte Esterase (NEG) Stool Occult Blood (NEGATIVE) COVID-19 (MAGY) Negative (Negative) COVID-19 Clin Com See Note Blood Type O Positive Antibody Screen NEGATIVE 06/08/21 Range/Units 20:13 WBC (4.8-10.8) X10*3/uL RBC (4.60-5.80) X10*6/uL Hgb (14.0-18.0) g/dl Hct (42.0-52.0) % MCV (80.0-98.0) fL MCH (27.0-33.0) pg MCHC (31.0-36.0) g/dl RDW (11.0-16.0) % Plt Count (160-400) X10*3/uL MPV (9.4-12.4) fL Immature Gran % (Auto) (0.0-0.4) % Neut % (Auto) (45-73) % Lymph % (Auto) (20-40) % [place] % (Auto) (2-11) % Eos % (Auto) (0-4) % Baso % (Auto) (0-2) % Lymph # (Auto) (1.2-4.9) X10*3/uL [place] # (Auto) (0.1-1.2) X10*3/uL Eos # (Auto) (0.0-0.4) X10*3/uL Baso # (Auto) (0.0-0.2) X10*3/uL Abs Immat Gran (auto) (0.00-0.03) X10*3/uL Absolute Neuts (auto) (2.0-8.3) x10*3/uL Absolute Nucleated RBC (0.0-0.012) X10*3/uL Nucleated RBC % (auto) (0.0-0.2) /100WBC PT (9.9-13.0) SEC INR (0.9-1.1) APTT (24.1-38.0) SEC Sodium (135-145) mmol/L Potassium (3.3-5.1) mmol/L Chloride (96-108) mmol/L Carbon Dioxide (22-29) mmol/L Anion Gap (12-20) BUN (9-16) mg/dL Creatinine (0.5-1.4) mg/dL Estim Creat Clear Calc Estimated GFR Random Glucose (60-115) mg/dL Calcium (8.4-10.2) mg/dL Magnesium (1.6-2.6) mg/dL Total Bilirubin (0.0-1.0) mg/dL Direct Bilirubin (0.0-0.5) mg/dL AST (5-37) U/L ALT (0-40) U/L Alkaline Phosphatase (39-117) U/L Total Protein (6.5-8.0) g/dL Albumin (3.5-5.0) g/dL Urine Color YELLOW Urine Appearance CLEAR Urine pH 5.5 (5.0-8.0) Ur Specific [place] >= 1.030 H (1.005-1.025) Urine Protein NEG (NEG-TRACE) MG/DL Urine Glucose (UA) NEG (NEG) MG/DL Urine Ketones NEG (NEG) MG/DL Urine Blood NEG (NEG) Urine Nitrite NEG (NEG) Ur Leukocyte Esterase NEG (NEG) Stool Occult Blood (NEGATIVE) COVID-19 (MAGY) (Negative) COVID-19 Clin Com Blood Type Antibody Screen Discharge Plan Discharge Clinical Impression: Abdominal pain Patient Disposition: Home, Self-Care Instructions: Abdominal Pain (ED) Prescriptions: No Action fexofenadine 180 mg tablet 180 mg PO DAILY PRN (Reason: allergy symptoms) Qty: 30 11RF ascorbate calcium (vitamin C) 500 mg tablet 500 mg PO DAILY Qty: 30 3RF clotrimazole-betamethasone 1-0.05 % cream 1 appl topical BID 28 Days Qty: 45 0RF ferrous sulfate [Feosol] 325 mg (65 mg iron) tablet 325 mg PO DAILY Qty: 90 2RF omeprazole 40 mg capsule,delayed release(DR/EC) 40 mg PO DAILY 90 Days Qty: 90 3RF nystatin 100,000 unit/gram ointment 1 appl topical TID Qty: 30 0RF apixaban 5 mg tablet 5 mg PO BID 90 Days Qty: 180 1RF cyanocobalamin (vitamin B-12) 1,000 mcg/mL solution 1,000 mcg subcut .Qmonthly Qty: 3 3RF (DME) BD Safety-Jackie Detachable Needl 3 mL 25 gauge x 5/8 syringe See Rx Instructions .ROUTE .MEDSUPPLY Qty: 100 12RF Rx Instructions: As directed tramadol 50 mg tablet 50 mg PO BID PRN (Reason: pain) Qty: 14 0RF metoclopramide HCl [Reglan] 10 mg tablet 10 mg PO Q6H PRN (Reason: nausea and vomiting) Qty: 30 0RF diphenhydramine HCl [Benadryl] 25 mg capsule 25 mg PO TID PRN (Reason: nausea and vomiting) Qty: 14 0RF baclofen 10 mg tablet 10 mg PO TID PRN (Reason: Spasms) 0RF Rx Instructions: Take 3 times a day with Food or Milk. trazodone 50 mg tablet 1 - 2 tab PO BEDTIME PRN (Reason: Insomnia) 0RF meclizine 12.5 mg tablet 12.5 mg PO BID PRN (Reason: Nausea) 0RF sfrkedndes-tthpndgxlqijd-xegw 50-325-40 mg tablet 1 tab PO BEDTIME PRN (Reason: Migraine Headache) 0RF promethazine 25 mg tablet 1 tab PO Q6H PRN (Reason: nausea) 0RF lorazepam 1 mg tablet 1 tab PO BID PRN (Reason: Anxiety) 0RF colchicine [Colcrys] 0.6 mg Tablet 0.6 mg PO BID PRN (Reason: Pain) 0RF meclizine 12.5 mg tablet 12.5 mg PO TID Qty: 20 0RF venlafaxine 150 mg capsule,extended release 24hr 187.5 mg PO DAILY 0RF alfuzosin 10 mg tablet extended release 24 hr 10 mg PO QAM 0RF divalproex 500 mg tablet,delayed release (DR/EC) 500 mg PO QAM 0RF ondansetron HCl 8 mg tablet 8 mg PO Q8H PRN (Reason: nausea and vomiting) Qty: 30 0RF lactulose 20 gram/30 mL solution 20 g PO BID PRN (Reason: constipation) Qty: 3000 0RF clotrimazole 1 % cream 1 appl topical BID 28 Days Qty: 45 1RF Zeasorb AF 2 % powder 1 appl topical BID Qty: 71 1RF Belbuca 300 mcg film 300 mcg buccal Q12H Qty: 60 0RF Rx Instructions: pain management rx semaglutide 0.25 mg or 0.5 mg(2 mg/1.5 mL) pen injector 0.25 mg subcut QWEEK 30 Days Qty: 1 1RF Rx Instructions: for 4 doses amlodipine 10 mg tablet 10 mg PO DAILY Qty: 90 2RF Referrals: Po,Thania Childs MD [Primary Care Provider] - 2 days Interventions: ED Discharge Assessment Last Done: 06/08/21 22:02 Discharge Date/Time: 06/08/21 22:03
== END 2021-06-08 22:03 | disposition home or self-care (01) ==
PROVIDERS: Physician Assistant; Emergency Provider Emergency Medicine Emergency Medical Services; PCP Internal Medicine
DX: R10.9 Unspecified abdominal pain (principal); R79.89 Other specified abnormal findings of blood chemistry; F17.200 Nicotine dependence, unspecified, uncomplicated; Z71.6 Tobacco abuse counseling; Z20.822 Contact with and (suspected) exposure to COVID-19; Z79.899 Other long term (current) drug therapy
CPT/HCPCS: 74177; 80048; 80076; 81003; 82272; 83735; 85025; 85610; 85730; 86850; 86900; 86901; 87635; 99283; 99284; Q9967

== ENCOUNTER 2021-08-11 14:23 | Emergency (ER) | payer MEDICARE, SELFPAY ==
[2021-08-11] VITALS (7 sets, daily range): BP systolic 120–136; BP diastolic 71–98; PULSE 70–90; RESP 10–24; TEMP 36.5–36.7; O2SAT 95–99; BMI 34.9
--- NOTE | 2021-08-11 | ECG_ITS ---
Test Reason : chest pain Blood Pressure : / mmHG Vent. Rate : 094 BPM Atrial Rate : 094 BPM P-R Int : 172 ms QRS Dur : 076 ms QT Int : 358 ms P-R-T Axes : 024 012 045 degrees QTc Int : 447 ms Sinus rhythm with Premature atrial complexes Otherwise normal ECG When compared with ECG of 11-JAN-2021 16:58, No significant change was found Referred By: Generic ED Physician Electronically Signed By:Reynold Ybarra
--- NOTE | ~2021-08-11 | XR_ITS ---
EXAMINATION: XR CHEST CLINICAL INFORMATION: Shortness of breath COMPARISON: Chest x-ray 09/10/2020. CT of chest 01/11/2021 TECHNIQUE: 2 views of the chest were obtained. FINDINGS: Lungs are clear. No pulmonary vascular congestion. There is no pleural effusion. The heart size is normal. The cardiac and mediastinal contours are normal. There are calcifications of the thoracic aorta. Surgical clips at the area of the GE junction. There are multilevel degenerative changes of dorsal spine. XR/XR chest 2V IMPRESSION: Unremarkable examination.
--- NOTE | ~2021-08-11 | CT_ITS ---
EXAMINATION: CT CHEST WITHOUT CONTRAST CLINICAL INFORMATION: Difficulty breathing. Cough. COMPARISON: CT chest 01/11/2021. X-ray chest 08/11/2021 TECHNIQUE: Multidetector volumetric CT imaging of the chest was done. Axial MIP volume rendering provided. Sagittal and coronal reformatted images were obtained. This CT examination was performed using dose optimization techniques as appropriate, variously including the following: *Automated exposure control *Adjustment of mA and/or kV according to patient size (this includes techniques or standardized protocols for targeted exams where dose is matched to indication/reason for exam; i.e. extremities or head) *Use of iterative reconstruction technique DLP: 393 mGy-cm FINDINGS: LUNGS: Trachea and central airway are patent. 4 mm subpleural nodule right upper lobe 6: 232; stable. Small perifissural nodular opacity. No suspicious nodules identified. No confluent airspace disease. No pneumothorax. MEDIASTINUM: Visualized thyroid gland appears unremarkable. No mediastinal or hilar lymphadenopathy. Normal caliber aorta. Normal heart size. Coronary artery calcification. No pericardial effusion. PLEURA: There is no pleural effusion. No pleural mass or thickening. AXILLA: No lymphadenopathy. UPPER ABDOMEN: Surgical clips in the area of the GE junction. There is nonspecific left perirenal stranding. Likely surgically absent gallbladder. Mild fatty atrophy pancreas. OSSEOUS STRUCTURES: Redemonstrated is moderate ventral spondylosis at T11-T12, with a large Schmorl's node in the inferior aspect T11 vertebral body. Multilevel degenerative changes otherwise in the spine. No suspicious bony lesions seen. CT/CT chest wo con IMPRESSION: 1. No evidence of focal consolidation. No acute pulmonary process identified. 2. No evidence of pneumothorax. 3. 4 mm nodule right upper lobe, stable from 01/11/2021. According to the UPDATED 2017 Fleischner Society recommendations, the advised follow-up imaging for solid nodules < 6 mm is: LOW RISK PATIENT: No routine follow-up. HIGH RISK PATIENT: Optional CT at 12 months. Fleischner guidelines were followed.
--- NOTE | 2021-08-11 14:47 | ED.CHESTPAIN ---
HPI - Chest Pain General Chief Complaint: Chest Pain <Opal Melton NP - Last Filed: 08/11/21 17:54> Stated Complaint: shortness of breath , chest pain <Opal Melton NP - Last Filed: 08/11/21 17:54> Time Seen by Provider: 08/11/21 14:37 <Opla Melton NP - Last Filed: 08/11/21 17:54> Source: patient <Opal Melton NP - Last Filed: 08/11/21 17:54> Mode of arrival: ambulatory <Opal Melton NP - Last Filed: 08/11/21 17:54> Limitations: no limitations <Opal Melton NP - Last Filed: 08/11/21 17:54> History of Present Illness HPI narrative: 76-year-old male with a history of anxiety, pulmonary embolism on Eliquis, anemia, GERD, hypertension here with complaints of 4 days of difficulty breathing with some chest discomfort described as tightness. Patient has cough which is nonproductive. Difficulty breathing worsened with lying flat and with exertion. No leg swelling or leg pain. Patient tells me he has been compliant with his Eliquis and has not missed any doses. He tells me he has a former history of tobacco use but no history of COPD. Patient denies recent travel or sick contact. He received Pfizer vaccine x3. He also received a flu vaccine <Opal Melton NP - Last Filed: 08/11/21 17:54> Related Data Home Medications: Home Medications Medication Instructions Recorded Confirmed alfuzosin 10 mg tablet,extended 10 mg PO QAM 03/09/20 08/08/21 release 24 hr divalproex 500 mg tablet,delayed 500 mg PO QAM tab 05/26/20 08/08/21 release baclofen 10 mg tablet 10 mg PO TID PRN 10/20/20 08/08/21 duvnadfgan-mnynynwdzwpyg-cxhuxepo 1 tab PO BEDTIME PRN 10/20/20 08/08/21 50 mg-325 mg-40 mg tablet colchicine 0.6 mg tablet (Colcrys) 0.6 mg PO BID PRN 10/20/20 08/08/21 lorazepam 1 mg tablet 1 tab PO BID PRN 10/20/20 08/08/21 trazodone 50 mg tablet 1 - 2 tab PO BEDTIME PRN 10/20/20 08/08/21 venlafaxine 150 mg 187.5 mg PO DAILY cap 04/17/21 08/08/21 capsule,extended release 24 hr Previous Rx's Medication Instructions Recorded lactulose 20 gram/30 mL oral 20 g (30 mL) PO BID PRN #3000 ml 08/01/20 solution diphenhydramine HCl 25 mg capsule 25 mg PO TID PRN #14 cap 09/10/20 (Benadryl) metoclopramide HCl 10 mg tablet 10 mg PO Q6H PRN #30 tab 09/10/20 (Reglan) clotrimazole 1 % topical cream 1 appl TOPICAL BID 28 Days #45 g 11/30/20 miconazole nitrate 2 % topical 1 appl TOPICAL BID #71 g 11/30/20 powder (Zeasorb AF) clotrimazole-betamethasone 1 1 appl TOPICAL BID 28 Days #45 g 12/06/20 %-0.05 % topical cream omeprazole 40 mg capsule,delayed 40 mg PO DAILY 90 Days #90 cap 12/21/20 release nystatin 100,000 unit/gram topical 1 appl TOPICAL TID #30 g 12/29/20 ointment apixaban 5 mg tablet 5 mg PO BID 90 Days #180 tab 01/19/21 amlodipine 10 mg tablet 10 mg PO DAILY #90 cap 04/17/21 cyanocobalamin (vitamin B-12) 1,000 mcg SUBCUT .Qmonthly #3 cap 06/01/21 1,000 mcg/mL injection solution syringe with needle, safety 3 mL #100 ea 06/02/21 25 gauge x 5/8 (BD Safety-Jackie Detachable Needle) ferrous sulfate 325 mg (65 mg 325 mg PO DAILY #90 tab 08/08/21 iron) tablet (Feosol) fexofenadine 180 mg tablet 180 mg PO DAILY PRN #90 cap 08/10/21 albuterol sulfate 90 mcg/actuation 2 inh INHALATION Q4-6H PRN #1 ea 08/11/21 breath activated powder inhaler azithromycin 250 mg tablet See Rx Instructions .ROUTE 08/11/21 .COMPLEX #6 tab prednisone 20 mg tablet 20 mg PO DAILY 5 Days #5 tab 08/11/21 <Opal Melton NP - Last Filed: 08/11/21 17:54> Allergies/Adverse Reactions: Allergies Allergy/AdvReac Type Severity Reaction Status Date / Time carisoprodol [From Soma] Allergy Mild MENTAL Verified 08/08/21 10:10 STATUS CHANGE, BECOMES AGGRESIVE codeine [Codeine] Allergy Mild STOMACH Verified 08/08/21 10:10 UPSET, RASH gabapentin AdvReac Intermediate lousy Verified 08/08/21 10:10 feeling <Opal Melton NP - Last Filed: 08/11/21 17:54> Review of Systems Review of Systems: Yes all other systems are reviewed and are negative <Opal Melton NP - Last Filed: 08/11/21 17:54> Constitutional: Constitutional: Reports no additional constitutional complaints, Denies body ache(s), Denies chills, Denies fever(s), Denies headache(s) and Denies weakness <Opal Melton NP - Last Filed: 08/11/21 17:54> Eyes: Eyes: Reports no additional eye complaints and Denies change in vision <Opal Melton NP - Last Filed: 08/11/21 17:54> ENT: Reports system reviewed and no additional complaints, except as documented, Denies dizziness, Denies headache(s), Denies nasal congestion, Denies nasal discharge and Denies neck pain <Opal Melton NP - Last Filed: 08/11/21 17:54> Cardiovascular: Cardiovascular: Reports no additional cardiovascular complaints, Reports chest pain, Denies leg edema and Reports dyspnea <Opal Melton NP - Last Filed: 08/11/21 17:54> Respiratory: Respiratory: Reports no additional respiratory complaints, Reports cough and Reports dyspnea <Opal Melton NP - Last Filed: 08/11/21 17:54> Gastrointestinal: Gastrointestinal: Reports no additional gastrointestinal complaints, Denies abdominal pain, Denies diarrhea, Denies nausea and Denies vomiting <Opal Melton NP - Last Filed: 08/11/21 17:54> Genitourinary: Genitourinary: Denies urinary incontinence <Opal Melton NP - Last Filed: 08/11/21 17:54> Musculoskeletal: Musculoskeletal: Reports no additional musculoskeletal complaints, Denies back pain, Denies arthralgias, Denies joint swelling, Denies neck pain, Denies numbness and Denies tingling <Opal Melton NP - Last Filed: 08/11/21 17:54> Integumentary/Breasts: Skin/Breast: Reports system reviewed and no additional complaints, except as docu and Denies rash <Opal Melton NP - Last Filed: 08/11/21 17:54> Neurologic: Reports system reviewed and no additional complaints, except as documented, Denies Abnormal speech present, Denies dizziness, Denies headache(s), Denies numbness, Denies tingling and Denies weakness <Opal Melton NP - Last Filed: 08/11/21 17:54> PMFSH Past Medical History Attestation statement: The following information was validated with the patient. <Opal Melton NP - Last Filed: 08/11/21 17:54> Source: old records reviewed and nursing notes reviewed <Opal Melton NP - Last Filed: 08/11/21 17:54> Medical History: Medical History Anemia Anxiety and depression Atrial fibrillation Degenerative disc disease Diverticular disease Generalized anxiety disorder GERD (gastroesophageal reflux disease) Gout Hypertension Iron deficiency anemia Knee fracture, left Obesity (BMI 30-39.9) Obstructive sleep apnea Peptic ulcer disease Prostate cancer Vitamin B12 deficiency Vitamin D deficiency Wedge compression fracture of L1 vertebra <Opal Melton NP - Last Filed: 08/11/21 17:54> Surgical History: Surgical History H/O hernia repair H/O rectal polypectomy History of bowel resection History of cholecystectomy History of hemiarthroplasty of left hip History of knee replacement procedure of left knee History of pyloroplasty <Opal Melton NP - Last Filed: 08/11/21 17:54> Family History Family History: Family History Father Diabetes Acute kidney failure Glaucoma Mother Lung cancer <Opal Melton NP - Last Filed: 08/11/21 17:54> Social History Social History: Social History Housing: Apartment Alcohol intake: unknown Patient Tobacco Use Status: Former Tobacco user Quit Date: Tobacco use type: Cigar e-Cigarette/Vaping Use: Currently Using Second Hand Smoke Exposure: No Use of substances other than those prescribed or required for medical reasons: No Advance Directives: No Advance Directives Information Provided: No Advance Directives Date on File: 01/30/20 service: No Current occupational status: retired <Opal Melton NP - Last Filed: 08/11/21 17:54> Physical Exam Vital Signs: Vital Signs: Last Vital Signs Temp 97.7 F 08/11/21 17:57 Pulse 76 08/11/21 23:19 Resp 18 08/11/21 23:19 BP 136/98 H 08/11/21 17:57 Pulse Ox 95 08/11/21 23:21 BMI result Body Mass Index 34.9 <Opal Melton NP - Last Filed: 08/11/21 17:54> Vital Signs: Last Vital Signs Temp 97.7 F 08/11/21 17:57 Pulse 76 08/11/21 23:19 Resp 18 08/11/21 23:19 BP 136/98 H 08/11/21 17:57 Pulse Ox 95 08/11/21 23:21 BMI result Body Mass Index 34.9 <JOSIANE Saenz - Last Filed: 08/11/21 23:41> Const: General: cooperative, healthy appearing, comfortable and no acute distress <Opal Melton NP - Last Filed: 08/11/21 17:54> Orientation/consciousness: patient oriented x3 <Opal Melton NP - Last Filed: 08/11/21 17:54> Limitations: no limitations <Opal Melton NP - Last Filed: 08/11/21 17:54> HEENT: Head: Yes normal to inspection <Opal Melton NP - Last Filed: 08/11/21 17:54> Ears: hearing grossly normal bilaterally <Opal Melton NP - Last Filed: 08/11/21 17:54> General nose exam: Normal external nose present <Opal Melton NP - Last Filed: 08/11/21 17:54> Face and sinus: Yes normal facial exam <Opal Melton NP - Last Filed: 08/11/21 17:54> Mouth: Normal oral and palatal mucosa present <Opal Melton ACADEMIC INTERVENTIONIST - Last Filed: 08/11/21 17:54> Throat: Yes posterior oropharynx normal <Opal Melton NP - Last Filed: 08/11/21 17:54> Eyes: General: appearance normal, both eyes and all related structures <Opal Melton ACADEMIC INTERVENTIONIST - Last Filed: 08/11/21 17:54> Pupils: Equal, round and reactive pupils present <Opal Melton NP - Last Filed: 08/11/21 17:54> Neck: Neck: Yes normal visual inspection <Opal Melton NP - Last Filed: 08/11/21 17:54> Chest: Chest palpation & inspection: normal inspection of the chest <Opal Melton NP - Last Filed: 08/11/21 17:54> Resp: Other: tachypnea rate of 24 <Opal Melton NP - Last Filed: 08/11/21 17:54> Auscultation: clear to auscultation bilaterally <Opal Melton ACADEMIC INTERVENTIONIST - Last Filed: 08/11/21 17:54> Cardio: Rate: regular rate <Opal Melton NP - Last Filed: 08/11/21 17:54> Rhythm: regular rhythm <Opal Melton NP - Last Filed: 08/11/21 17:54> Peripheral pulses: Peripheral pulses 2+ throughout <Opal Melton ACADEMIC INTERVENTIONIST - Last Filed: 08/11/21 17:54> GI: Inspection: Yes normal to inspection <Opal Melton NP - Last Filed: 08/11/21 17:54> Palpation (GI): Soft to palpation and nontender <Opal Melton NP - Last Filed: 08/11/21 17:54> Auscultation: normal bowel sounds <Opal Melton NP - Last Filed: 08/11/21 17:54> Back/Spine/Pelvis: Thoracic/Lumbar Spine: thoracic and lumbar spine normal to inspection <Opal Melton NP - Last Filed: 08/11/21 17:54> Skin: General skin exam: no rashes or lesions noted <Opal Melton NP - Last Filed: 08/11/21 17:54> Neuro: General: patient oriented x3, no focal motor deficits and normal sensation to monofilament <Opal Melton NP - Last Filed: 08/11/21 17:54> Cranial nerves: Yes Equal, round and reactive pupils present <Opal Melton NP - Last Filed: 08/11/21 17:54> Cognition (Neuro): normal cognition <Opal Melton NP - Last Filed: 08/11/21 17:54> Speech: No Abnormal speech present <Opal Melton NP - Last Filed: 08/11/21 17:54> Gait exam (Neuro): Normal gait present <Opal Melton NP - Last Filed: 08/11/21 17:54> Motor exam (neuro): 5/5 motor strength present throughout <Opal Melton NP - Last Filed: 08/11/21 17:54> Extrem: General: Yes normal to inspection, Yes no pedal edema and Yes no calf tenderness <Opal Melton NP - Last Filed: 08/11/21 17:54> Course Course Course Narrative: 76-year-old male w/ history of anxiety, pulmonary embolism on Eliquis,? anemia,? GERD, hypertension? here with complaints of shortness of breath and chest tightness for the last 4-5 days. This is associated with some cough and dyspnea with exertion. On arrival the patient has mild tachypnea. His lungs are clear. His exam otherwise normal. Will check EKG, labs, chest x-ray, COVID and flu screening. <Opal Melton NP - Last Filed: 08/11/21 17:54> Reevaluation(s) Reevaluation #1: Labs are unremarkable with exception of mildly elevate Lactic acid. This may be from multiple causes. At this time infection cannot be ruled out. Antibiotics ordered. Will give DuoNeb, p.o. prednisone. Chest x-ray shows no acute finding. Will obtain CT chest To rule out occult pneumonia <Opal Melton NP - Last Filed: 08/11/21 17:54> Time: 17:00 <Opal Melton NP - Last Filed: 08/11/21 17:54> Reevaluation #2: Sign out to Nadya JOSHUA pending Ct chest w/o contrast <Opal Melton NP - Last Filed: 08/11/21 17:54> Time: 18:00 <Opal Melton NP - Last Filed: 08/11/21 17:54> Reevaluation #3: Patient's lactic acid is up trending despite fluids and antibiotics. I did go speak to the patient who tells me that he has been having a cough for the past 5 days. The history I obtained was the same history obtained by the initial provider who saw this patient. He does tell me that he feels like he has infection in his teeth. He tells me that his dentist told him that underneath his dentures there was likely an infection that needed to be lanced. Upon my examination I do not see any evidence signs of fluctuance or abscess. <JOSIANE Saenz - Last Filed: 08/11/21 23:41> Time: 19:20 <JOSIANE Saenz - Last Filed: 08/11/21 23:41> Additional Reevaluation(s): This case was discussed with Dr. Jones who agrees with my plan. Patient's lactic acid improving then raising after fluids. Lactic acid could be elevated secondary to dehydration or administration of prednisone, multiple albuterol treatments, no signs of sepsis VSS. Patient has no history of liver issues and today transaminases normal. Patient tells me that he feels well and he would like to go home. He has outpatient follow-up with pulmonology who he is scheduled to see in 5 days here at [place]. He tells me is a pulmonary function test scheduled. At this time patient likely has bronchitis he will be discharged home on azithromycin, prednisone, albuterol inhaler. He saturating 95% to 97% on room air while ambulating. History and physical examination not consistent with pulmonary embolism, patient is also on apixaban therefore making this diagnosis unlikely. PE patient strict return precautions and advised him to return with new or worsening symptoms. Upon re-evaluation of the patient he has negative Guero sign bilaterally, he does not report chest pain, shortness of breath. Abdomen soft nontender nondistended. Neuro nonfocal. Patient's vital signs are stable saturating 97% on room air, he is not tachycardic and he remains afebrile. <JOSIANE Saenz - Last Filed: 08/11/21 23:41> MDM - Chest Pain MDM Narrative Medical decision making narrative: acs, pe, viral syndrome <Opal Melton NP - Last Filed: 08/11/21 17:54> Medical Records Data Attestation: I reviewed the patient's medical records. <Opal Melton NP - Last Filed: 08/11/21 17:54> Lab Data Attestation: I reviewed the patient's lab results. <Opal Melton NP - Last Filed: 08/11/21 17:54> Result diagrams: : 08/11/21 15:38 08/11/21 15:38 <Opal Melton NP - Last Filed: 08/11/21 17:54> Labs: Lab Results 08/11/21 08/11/21 08/11/21 Range/Units 15:38 15:38 15:38 WBC 10.7 (4.8-10.8) X10*3/uL RBC 4.64 (4.60-5.80) X10*6/uL Hgb 14.2 (14.0-18.0) g/dl Hct 42.7 (42.0-52.0) % MCV 92.0 (80.0-98.0) fL MCH 30.6 (27.0-33.0) pg MCHC 33.3 (31.0-36.0) g/dl RDW 13.2 (11.0-16.0) % Plt Count 342 (160-400) X10*3/uL MPV 10.8 (9.4-12.4) fL Immature Gran % (Auto) 0.5 H (0.0-0.4) % Neut % (Auto) 69.8 (45-73) % Lymph % (Auto) 18.5 L (20-40) % Jackson % (Auto) 10.0 (2-11) % Eos % (Auto) 0.5 (0-4) % Baso % (Auto) 0.7 (0-2) % Lymph # (Auto) 2.0 (1.2-4.9) X10*3/uL Jackson # (Auto) 1.1 (0.1-1.2) X10*3/uL Eos # (Auto) 0.1 (0.0-0.4) X10*3/uL Baso # (Auto) 0.1 (0.0-0.2) X10*3/uL Abs Immat Gran (auto) 0.05 H (0.00-0.03) X10*3/uL Absolute Neuts (auto) 7.5 (2.0-8.3) x10*3/uL Absolute Nucleated RBC 0.000 (0.0-0.012) X10*3/uL Nucleated RBC % (auto) 0.0 (0.0-0.2) /100WBC PT (9.9-13.0) SEC INR (0.9-1.1) Sodium 137 (135-145) mmol/L Potassium 4.2 (3.3-5.1) mmol/L Chloride 103 (96-108) mmol/L Carbon Dioxide 21 L (22-29) mmol/L Anion Gap 17 (12-20) BUN 26 H (9-16) mg/dL Creatinine 1.07 (0.5-1.4) mg/dL Estim Creat Clear Calc 78.7 Estimated GFR > 60 Random Glucose 101 (60-115) mg/dL Lactic Acid (0.5-2.0) mmol/L Lactic Acid F/U @ 2Hr (0.5-2.0) mmol/L Lactic Acid F/U @ 4Hr (0.5-2.0) mmol/L Calcium 9.1 (8.4-10.2) mg/dL Magnesium (1.6-2.6) mg/dL Total Bilirubin (0.0-1.0) mg/dL Direct Bilirubin (0.0-0.5) mg/dL AST (5-37) U/L ALT (0-40) U/L Alkaline Phosphatase (39-117) U/L Troponin I High Sens 4.5 (<3.5-35.0) ng/L B-Natriuretic Peptide (<100) pg/mL Total Protein (6.5-8.0) g/dL Albumin (3.5-5.0) g/dL Urine Color Urine Appearance Urine pH (5.0-8.0) Ur Specific [place] (1.005-1.025) Urine Protein (NEG-TRACE) MG/DL Urine Glucose (UA) (NEG) MG/DL Urine Ketones (NEG) MG/DL Urine Blood (NEG) Urine Nitrite (NEG) Ur Leukocyte Esterase (NEG) COVID-19 (MAGY) (Negative) COVID-19 Clin Com Influenza Type A (TRICIA) (Negative) Influenza Type A (PCR) (Negative) Influenza Type B (TRICIA) (Negative) Influenza Type B (PCR) (Negative) Influenza A & B Note RSV RNA Qual (PCR) (Negative) SARS-CoV-2 RNA (RT-PCR) (Negative) 08/11/21 08/11/21 08/11/21 Range/Units 15:38 15:38 15:38 WBC (4.8-10.8) X10*3/uL RBC (4.60-5.80) X10*6/uL Hgb (14.0-18.0) g/dl Hct (42.0-52.0) % MCV (80.0-98.0) fL MCH (27.0-33.0) pg MCHC (31.0-36.0) g/dl RDW (11.0-16.0) % Plt Count (160-400) X10*3/uL MPV (9.4-12.4) fL Immature Gran % (Auto) (0.0-0.4) % Neut % (Auto) (45-73) % Lymph % (Auto) (20-40) % Jackson % (Auto) (2-11) % Eos % (Auto) (0-4) % Baso % (Auto) (0-2) % Lymph # (Auto) (1.2-4.9) X10*3/uL Jackson # (Auto) (0.1-1.2) X10*3/uL Eos # (Auto) (0.0-0.4) X10*3/uL Baso # (Auto) (0.0-0.2) X10*3/uL Abs Immat Gran (auto) (0.00-0.03) X10*3/uL Absolute Neuts (auto) (2.0-8.3) x10*3/uL Absolute Nucleated RBC (0.0-0.012) X10*3/uL Nucleated RBC % (auto) (0.0-0.2) /100WBC PT (9.9-13.0) SEC INR (0.9-1.1) Sodium (135-145) mmol/L Potassium (3.3-5.1) mmol/L Chloride (96-108) mmol/L Carbon Dioxide (22-29) mmol/L Anion Gap (12-20) BUN (9-16) mg/dL Creatinine (0.5-1.4) mg/dL Estim Creat Clear Calc Estimated GFR Random Glucose (60-115) mg/dL Lactic Acid (0.5-2.0) mmol/L Lactic Acid F/U @ 2Hr (0.5-2.0) mmol/L Lactic Acid F/U @ 4Hr (0.5-2.0) mmol/L Calcium (8.4-10.2) mg/dL Magnesium 2.1 (1.6-2.6) mg/dL Total Bilirubin 0.3 (0.0-1.0) mg/dL Direct Bilirubin < 0.2 (0.0-0.5) mg/dL AST 12 (5-37) U/L ALT 15 (0-40) U/L Alkaline Phosphatase 93 (39-117) U/L Troponin I High Sens (<3.5-35.0) ng/L B-Natriuretic Peptide (<100) pg/mL Total Protein 6.9 (6.5-8.0) g/dL Albumin 4.2 (3.5-5.0) g/dL Urine Color Urine Appearance Urine pH (5.0-8.0) Ur Specific [place] (1.005-1.025) Urine Protein (NEG-TRACE) MG/DL Urine Glucose (UA) (NEG) MG/DL Urine Ketones (NEG) MG/DL Urine Blood (NEG) Urine Nitrite (NEG) Ur Leukocyte Esterase (NEG) COVID-19 (MAGY) Negative (Negative) COVID-19 Clin Com See Note Influenza Type A (TRICIA) Negative (Negative) Influenza Type A (PCR) (Negative) Influenza Type B (TRICIA) Negative (Negative) Influenza Type B (PCR) (Negative) Influenza A & B Note See Note RSV RNA Qual (PCR) (Negative) SARS-CoV-2 RNA (RT-PCR) (Negative) 08/11/21 08/11/21 08/11/21 Range/Units 15:38 15:38 15:38 WBC (4.8-10.8) X10*3/uL RBC (4.60-5.80) X10*6/uL Hgb (14.0-18.0) g/dl Hct (42.0-52.0) % MCV (80.0-98.0) fL MCH (27.0-33.0) pg MCHC (31.0-36.0) g/dl RDW (11.0-16.0) % Plt Count (160-400) X10*3/uL MPV (9.4-12.4) fL Immature Gran % (Auto) (0.0-0.4) % Neut % (Auto) (45-73) % Lymph % (Auto) (20-40) % Jackson % (Auto) (2-11) % Eos % (Auto) (0-4) % Baso % (Auto) (0-2) % Lymph # (Auto) (1.2-4.9) X10*3/uL Jackson # (Auto) (0.1-1.2) X10*3/uL Eos # (Auto) (0.0-0.4) X10*3/uL Baso # (Auto) (0.0-0.2) X10*3/uL Abs Immat Gran (auto) (0.00-0.03) X10*3/uL Absolute Neuts (auto) (2.0-8.3) x10*3/uL Absolute Nucleated RBC (0.0-0.012) X10*3/uL Nucleated RBC % (auto) (0.0-0.2) /100WBC PT 13.6 H (9.9-13.0) SEC INR 1.2 H (0.9-1.1) Sodium (135-145) mmol/L Potassium (3.3-5.1) mmol/L Chloride (96-108) mmol/L Carbon Dioxide (22-29) mmol/L Anion Gap (12-20) BUN (9-16) mg/dL Creatinine (0.5-1.4) mg/dL Estim Creat Clear Calc Estimated GFR Random Glucose (60-115) mg/dL Lactic Acid 2.3 H* (0.5-2.0) mmol/L Lactic Acid F/U @ 2Hr (0.5-2.0) mmol/L Lactic Acid F/U @ 4Hr (0.5-2.0) mmol/L Calcium (8.4-10.2) mg/dL Magnesium (1.6-2.6) mg/dL Total Bilirubin (0.0-1.0) mg/dL Direct Bilirubin (0.0-0.5) mg/dL AST (5-37) U/L ALT (0-40) U/L Alkaline Phosphatase (39-117) U/L Troponin I High Sens (<3.5-35.0) ng/L B-Natriuretic Peptide 44 (<100) pg/mL Total Protein (6.5-8.0) g/dL Albumin (3.5-5.0) g/dL Urine Color Urine Appearance Urine pH (5.0-8.0) Ur Specific [place] (1.005-1.025) Urine Protein (NEG-TRACE) MG/DL Urine Glucose (UA) (NEG) MG/DL Urine Ketones (NEG) MG/DL Urine Blood (NEG) Urine Nitrite (NEG) Ur Leukocyte Esterase (NEG) COVID-19 (MAGY) (Negative) COVID-19 Clin Com Influenza Type A (TRICIA) (Negative) Influenza Type A (PCR) (Negative) Influenza Type B (TRICIA) (Negative) Influenza Type B (PCR) (Negative) Influenza A & B Note RSV RNA Qual (PCR) (Negative) SARS-CoV-2 RNA (RT-PCR) (Negative) 08/11/21 08/11/21 08/11/21 Range/Units 19:15 20:50 21:57 WBC (4.8-10.8) X10*3/uL RBC (4.60-5.80) X10*6/uL Hgb (14.0-18.0) g/dl Hct (42.0-52.0) % MCV (80.0-98.0) fL MCH (27.0-33.0) pg MCHC (31.0-36.0) g/dl RDW (11.0-16.0) % Plt Count (160-400) X10*3/uL MPV (9.4-12.4) fL Immature Gran % (Auto) (0.0-0.4) % Neut % (Auto) (45-73) % Lymph % (Auto) (20-40) % Jackson % (Auto) (2-11) % Eos % (Auto) (0-4) % Baso % (Auto) (0-2) % Lymph # (Auto) (1.2-4.9) X10*3/uL Jackson # (Auto) (0.1-1.2) X10*3/uL Eos # (Auto) (0.0-0.4) X10*3/uL Baso # (Auto) (0.0-0.2) X10*3/uL Abs Immat Gran (auto) (0.00-0.03) X10*3/uL Absolute Neuts (auto) (2.0-8.3) x10*3/uL Absolute Nucleated RBC (0.0-0.012) X10*3/uL Nucleated RBC % (auto) (0.0-0.2) /100WBC PT (9.9-13.0) SEC INR (0.9-1.1) Sodium (135-145) mmol/L Potassium (3.3-5.1) mmol/L Chloride (96-108) mmol/L Carbon Dioxide (22-29) mmol/L Anion Gap (12-20) BUN (9-16) mg/dL Creatinine (0.5-1.4) mg/dL Estim Creat Clear Calc Estimated GFR Random Glucose (60-115) mg/dL Lactic Acid (0.5-2.0) mmol/L Lactic Acid F/U @ 2Hr 3.3 H* (0.5-2.0) mmol/L Lactic Acid F/U @ 4Hr 2.4 H* (0.5-2.0) mmol/L Calcium (8.4-10.2) mg/dL Magnesium (1.6-2.6) mg/dL Total Bilirubin (0.0-1.0) mg/dL Direct Bilirubin (0.0-0.5) mg/dL AST (5-37) U/L ALT (0-40) U/L Alkaline Phosphatase (39-117) U/L Troponin I High Sens (<3.5-35.0) ng/L B-Natriuretic Peptide (<100) pg/mL Total Protein (6.5-8.0) g/dL Albumin (3.5-5.0) g/dL Urine Color YELLOW Urine Appearance CLEAR Urine pH 6.0 (5.0-8.0) Ur Specific [place] >= 1.030 H (1.005-1.025) Urine Protein NEG (NEG-TRACE) MG/DL Urine Glucose (UA) NEG (NEG) MG/DL Urine Ketones 5 (NEG) MG/DL Urine Blood NEG (NEG) Urine Nitrite NEG (NEG) Ur Leukocyte Esterase NEG (NEG) COVID-19 (MAGY) (Negative) COVID-19 Clin Com Influenza Type A (TRICIA) (Negative) Influenza Type A (PCR) (Negative) Influenza Type B (TRICIA) (Negative) Influenza Type B (PCR) (Negative) Influenza A & B Note RSV RNA Qual (PCR) (Negative) SARS-CoV-2 RNA (RT-PCR) (Negative) 08/11/21 Range/Units 21:57 WBC (4.8-10.8) X10*3/uL RBC (4.60-5.80) X10*6/uL Hgb (14.0-18.0) g/dl Hct (42.0-52.0) % MCV (80.0-98.0) fL MCH (27.0-33.0) pg MCHC (31.0-36.0) g/dl RDW (11.0-16.0) % Plt Count (160-400) X10*3/uL MPV (9.4-12.4) fL Immature Gran % (Auto) (0.0-0.4) % Neut % (Auto) (45-73) % Lymph % (Auto) (20-40) % Jackson % (Auto) (2-11) % Eos % (Auto) (0-4) % Baso % (Auto) (0-2) % Lymph # (Auto) (1.2-4.9) X10*3/uL Jackson # (Auto) (0.1-1.2) X10*3/uL Eos # (Auto) (0.0-0.4) X10*3/uL Baso # (Auto) (0.0-0.2) X10*3/uL Abs Immat Gran (auto) (0.00-0.03) X10*3/uL Absolute Neuts (auto) (2.0-8.3) x10*3/uL Absolute Nucleated RBC (0.0-0.012) X10*3/uL Nucleated RBC % (auto) (0.0-0.2) /100WBC PT (9.9-13.0) SEC INR (0.9-1.1) Sodium (135-145) mmol/L Potassium (3.3-5.1) mmol/L Chloride (96-108) mmol/L Carbon Dioxide (22-29) mmol/L Anion Gap (12-20) BUN (9-16) mg/dL Creatinine (0.5-1.4) mg/dL Estim Creat Clear Calc Estimated GFR Random Glucose (60-115) mg/dL Lactic Acid (0.5-2.0) mmol/L Lactic Acid F/U @ 2Hr (0.5-2.0) mmol/L Lactic Acid F/U @ 4Hr (0.5-2.0) mmol/L Calcium (8.4-10.2) mg/dL Magnesium (1.6-2.6) mg/dL Total Bilirubin (0.0-1.0) mg/dL Direct Bilirubin (0.0-0.5) mg/dL AST (5-37) U/L ALT (0-40) U/L Alkaline Phosphatase (39-117) U/L Troponin I High Sens (<3.5-35.0) ng/L B-Natriuretic Peptide (<100) pg/mL Total Protein (6.5-8.0) g/dL Albumin (3.5-5.0) g/dL Urine Color Urine Appearance Urine pH (5.0-8.0) Ur Specific [place] (1.005-1.025) Urine Protein (NEG-TRACE) MG/DL Urine Glucose (UA) (NEG) MG/DL Urine Ketones (NEG) MG/DL Urine Blood (NEG) Urine Nitrite (NEG) Ur Leukocyte Esterase (NEG) COVID-19 (MAGY) (Negative) COVID-19 Clin Com Influenza Type A (TRICIA) (Negative) Influenza Type A (PCR) NEGATIVE (Negative) Influenza Type B (TRICIA) (Negative) Influenza Type B (PCR) NEGATIVE (Negative) Influenza A & B Note RSV RNA Qual (PCR) NEGATIVE (Negative) SARS-CoV-2 RNA (RT-PCR) NEGATIVE (Negative) <Opal Melton, ACADEMIC INTERVENTIONIST - Last Filed: 08/11/21 17:54> Lab Results 08/11/21 08/11/21 08/11/21 Range/Units 15:38 15:38 15:38 WBC 10.7 (4.8-10.8) X10*3/uL RBC 4.64 (4.60-5.80) X10*6/uL Hgb 14.2 (14.0-18.0) g/dl Hct 42.7 (42.0-52.0) % MCV 92.0 (80.0-98.0) fL MCH 30.6 (27.0-33.0) pg MCHC 33.3 (31.0-36.0) g/dl RDW 13.2 (11.0-16.0) % Plt Count 342 (160-400) X10*3/uL MPV 10.8 (9.4-12.4) fL Immature Gran % (Auto) 0.5 H (0.0-0.4) % Neut % (Auto) 69.8 (45-73) % Lymph % (Auto) 18.5 L (20-40) % Jackson % (Auto) 10.0 (2-11) % Eos % (Auto) 0.5 (0-4) % Baso % (Auto) 0.7 (0-2) % Lymph # (Auto) 2.0 (1.2-4.9) X10*3/uL Jackson # (Auto) 1.1 (0.1-1.2) X10*3/uL Eos # (Auto) 0.1 (0.0-0.4) X10*3/uL Baso # (Auto) 0.1 (0.0-0.2) X10*3/uL Abs Immat Gran (auto) 0.05 H (0.00-0.03) X10*3/uL Absolute Neuts (auto) 7.5 (2.0-8.3) x10*3/uL Absolute Nucleated RBC 0.000 (0.0-0.012) X10*3/uL Nucleated RBC % (auto) 0.0 (0.0-0.2) /100WBC PT (9.9-13.0) SEC INR (0.9-1.1) Sodium 137 (135-145) mmol/L Potassium 4.2 (3.3-5.1) mmol/L Chloride 103 (96-108) mmol/L Carbon Dioxide 21 L (22-29) mmol/L Anion Gap 17 (12-20) BUN 26 H (9-16) mg/dL Creatinine 1.07 (0.5-1.4) mg/dL Estim Creat Clear Calc 78.7 Estimated GFR > 60 Random Glucose 101 (60-115) mg/dL Lactic Acid (0.5-2.0) mmol/L Lactic Acid F/U @ 2Hr (0.5-2.0) mmol/L Lactic Acid F/U @ 4Hr (0.5-2.0) mmol/L Calcium 9.1 (8.4-10.2) mg/dL Magnesium (1.6-2.6) mg/dL Total Bilirubin (0.0-1.0) mg/dL Direct Bilirubin (0.0-0.5) mg/dL AST (5-37) U/L ALT (0-40) U/L Alkaline Phosphatase (39-117) U/L Troponin I High Sens 4.5 (<3.5-35.0) ng/L B-Natriuretic Peptide (<100) pg/mL Total Protein (6.5-8.0) g/dL Albumin (3.5-5.0) g/dL Urine Color Urine Appearance Urine pH (5.0-8.0) Ur Specific [place] (1.005-1.025) Urine Protein (NEG-TRACE) MG/DL Urine Glucose (UA) (NEG) MG/DL Urine Ketones (NEG) MG/DL Urine Blood (NEG) Urine Nitrite (NEG) Ur Leukocyte Esterase (NEG) COVID-19 (MAGY) (Negative) COVID-19 Clin Com Influenza Type A (TRICIA) (Negative) Influenza Type A (PCR) (Negative) Influenza Type B (TRICIA) (Negative) Influenza Type B (PCR) (Negative) Influenza A & B Note RSV RNA Qual (PCR) (Negative) SARS-CoV-2 RNA (RT-PCR) (Negative) 08/11/21 08/11/21 08/11/21 Range/Units 15:38 15:38 15:38 WBC (4.8-10.8) X10*3/uL RBC (4.60-5.80) X10*6/uL Hgb (14.0-18.0) g/dl Hct (42.0-52.0) % MCV (80.0-98.0) fL MCH (27.0-33.0) pg MCHC (31.0-36.0) g/dl RDW (11.0-16.0) % Plt Count (160-400) X10*3/uL MPV (9.4-12.4) fL Immature Gran % (Auto) (0.0-0.4) % Neut % (Auto) (45-73) % Lymph % (Auto) (20-40) % Jackson % (Auto) (2-11) % Eos % (Auto) (0-4) % Baso % (Auto) (0-2) % Lymph # (Auto) (1.2-4.9) X10*3/uL Jackson # (Auto) (0.1-1.2) X10*3/uL Eos # (Auto) (0.0-0.4) X10*3/uL Baso # (Auto) (0.0-0.2) X10*3/uL Abs Immat Gran (auto) (0.00-0.03) X10*3/uL Absolute Neuts (auto) (2.0-8.3) x10*3/uL Absolute Nucleated RBC (0.0-0.012) X10*3/uL Nucleated RBC % (auto) (0.0-0.2) /100WBC PT (9.9-13.0) SEC INR (0.9-1.1) Sodium (135-145) mmol/L Potassium (3.3-5.1) mmol/L Chloride (96-108) mmol/L Carbon Dioxide (22-29) mmol/L Anion Gap (12-20) BUN (9-16) mg/dL Creatinine (0.5-1.4) mg/dL Estim Creat Clear Calc Estimated GFR Random Glucose (60-115) mg/dL Lactic Acid (0.5-2.0) mmol/L Lactic Acid F/U @ 2Hr (0.5-2.0) mmol/L Lactic Acid F/U @ 4Hr (0.5-2.0) mmol/L Calcium (8.4-10.2) mg/dL Magnesium 2.1 (1.6-2.6) mg/dL Total Bilirubin 0.3 (0.0-1.0) mg/dL Direct Bilirubin < 0.2 (0.0-0.5) mg/dL AST 12 (5-37) U/L ALT 15 (0-40) U/L Alkaline Phosphatase 93 (39-117) U/L Troponin I High Sens (<3.5-35.0) ng/L B-Natriuretic Peptide (<100) pg/mL Total Protein 6.9 (6.5-8.0) g/dL Albumin 4.2 (3.5-5.0) g/dL Urine Color Urine Appearance Urine pH (5.0-8.0) Ur Specific [place] (1.005-1.025) Urine Protein (NEG-TRACE) MG/DL Urine Glucose (UA) (NEG) MG/DL Urine Ketones (NEG) MG/DL Urine Blood (NEG) Urine Nitrite (NEG) Ur Leukocyte Esterase (NEG) COVID-19 (MAGY) Negative (Negative) COVID-19 Clin Com See Note Influenza Type A (TRICIA) Negative (Negative) Influenza Type A (PCR) (Negative) Influenza Type B (TRICIA) Negative (Negative) Influenza Type B (PCR) (Negative) Influenza A & B Note See Note RSV RNA Qual (PCR) (Negative) SARS-CoV-2 RNA (RT-PCR) (Negative) 08/11/21 08/11/21 08/11/21 Range/Units 15:38 15:38 15:38 WBC (4.8-10.8) X10*3/uL RBC (4.60-5.80) X10*6/uL Hgb (14.0-18.0) g/dl Hct (42.0-52.0) % MCV (80.0-98.0) fL MCH (27.0-33.0) pg MCHC (31.0-36.0) g/dl RDW (11.0-16.0) % Plt Count (160-400) X10*3/uL MPV (9.4-12.4) fL Immature Gran % (Auto) (0.0-0.4) % Neut % (Auto) (45-73) % Lymph % (Auto) (20-40) % Jackson % (Auto) (2-11) % Eos % (Auto) (0-4) % Baso % (Auto) (0-2) % Lymph # (Auto) (1.2-4.9) X10*3/uL Jackson # (Auto) (0.1-1.2) X10*3/uL Eos # (Auto) (0.0-0.4) X10*3/uL Baso # (Auto) (0.0-0.2) X10*3/uL Abs Immat Gran (auto) (0.00-0.03) X10*3/uL Absolute Neuts (auto) (2.0-8.3) x10*3/uL Absolute Nucleated RBC (0.0-0.012) X10*3/uL Nucleated RBC % (auto) (0.0-0.2) /100WBC PT 13.6 H (9.9-13.0) SEC INR 1.2 H (0.9-1.1) Sodium (135-145) mmol/L Potassium (3.3-5.1) mmol/L Chloride (96-108) mmol/L Carbon Dioxide (22-29) mmol/L Anion Gap (12-20) BUN (9-16) mg/dL Creatinine (0.5-1.4) mg/dL Estim Creat Clear Calc Estimated GFR Random Glucose (60-115) mg/dL Lactic Acid 2.3 H* (0.5-2.0) mmol/L Lactic Acid F/U @ 2Hr (0.5-2.0) mmol/L Lactic Acid F/U @ 4Hr (0.5-2.0) mmol/L Calcium (8.4-10.2) mg/dL Magnesium (1.6-2.6) mg/dL Total Bilirubin (0.0-1.0) mg/dL Direct Bilirubin (0.0-0.5) mg/dL AST (5-37) U/L ALT (0-40) U/L Alkaline Phosphatase (39-117) U/L Troponin I High Sens (<3.5-35.0) ng/L B-Natriuretic Peptide 44 (<100) pg/mL Total Protein (6.5-8.0) g/dL Albumin (3.5-5.0) g/dL Urine Color Urine Appearance Urine pH (5.0-8.0) Ur Specific [place] (1.005-1.025) Urine Protein (NEG-TRACE) MG/DL Urine Glucose (UA) (NEG) MG/DL Urine Ketones (NEG) MG/DL Urine Blood (NEG) Urine Nitrite (NEG) Ur Leukocyte Esterase (NEG) COVID-19 (MAGY) (Negative) COVID-19 Clin Com Influenza Type A (TRICIA) (Negative) Influenza Type A (PCR) (Negative) Influenza Type B (TRICIA) (Negative) Influenza Type B (PCR) (Negative) Influenza A & B Note RSV RNA Qual (PCR) (Negative) SARS-CoV-2 RNA (RT-PCR) (Negative) 08/11/21 08/11/21 08/11/21 Range/Units 19:15 20:50 21:57 WBC (4.8-10.8) X10*3/uL RBC (4.60-5.80) X10*6/uL Hgb (14.0-18.0) g/dl Hct (42.0-52.0) % MCV (80.0-98.0) fL MCH (27.0-33.0) pg MCHC (31.0-36.0) g/dl RDW (11.0-16.0) % Plt Count (160-400) X10*3/uL MPV (9.4-12.4) fL Immature Gran % (Auto) (0.0-0.4) % Neut % (Auto) (45-73) % Lymph % (Auto) (20-40) % Jackson % (Auto) (2-11) % Eos % (Auto) (0-4) % Baso % (Auto) (0-2) % Lymph # (Auto) (1.2-4.9) X10*3/uL Jackson # (Auto) (0.1-1.2) X10*3/uL Eos # (Auto) (0.0-0.4) X10*3/uL Baso # (Auto) (0.0-0.2) X10*3/uL Abs Immat Gran (auto) (0.00-0.03) X10*3/uL Absolute Neuts (auto) (2.0-8.3) x10*3/uL Absolute Nucleated RBC (0.0-0.012) X10*3/uL Nucleated RBC % (auto) (0.0-0.2) /100WBC PT (9.9-13.0) SEC INR (0.9-1.1) Sodium (135-145) mmol/L Potassium (3.3-5.1) mmol/L Chloride (96-108) mmol/L Carbon Dioxide (22-29) mmol/L Anion Gap (12-20) BUN (9-16) mg/dL Creatinine (0.5-1.4) mg/dL Estim Creat Clear Calc Estimated GFR Random Glucose (60-115) mg/dL Lactic Acid (0.5-2.0) mmol/L Lactic Acid F/U @ 2Hr 3.3 H* (0.5-2.0) mmol/L Lactic Acid F/U @ 4Hr 2.4 H* (0.5-2.0) mmol/L Calcium (8.4-10.2) mg/dL Magnesium (1.6-2.6) mg/dL Total Bilirubin (0.0-1.0) mg/dL Direct Bilirubin (0.0-0.5) mg/dL AST (5-37) U/L ALT (0-40) U/L Alkaline Phosphatase (39-117) U/L Troponin I High Sens (<3.5-35.0) ng/L B-Natriuretic Peptide (<100) pg/mL Total Protein (6.5-8.0) g/dL Albumin (3.5-5.0) g/dL Urine Color YELLOW Urine Appearance CLEAR Urine pH 6.0 (5.0-8.0) Ur Specific [place] >= 1.030 H (1.005-1.025) Urine Protein NEG (NEG-TRACE) MG/DL Urine Glucose (UA) NEG (NEG) MG/DL Urine Ketones 5 (NEG) MG/DL Urine Blood NEG (NEG) Urine Nitrite NEG (NEG) Ur Leukocyte Esterase NEG (NEG) COVID-19 (MAGY) (Negative) COVID-19 Clin Com Influenza Type A (TRICIA) (Negative) Influenza Type A (PCR) (Negative) Influenza Type B (TRICIA) (Negative) Influenza Type B (PCR) (Negative) Influenza A & B Note RSV RNA Qual (PCR) (Negative) SARS-CoV-2 RNA (RT-PCR) (Negative) 08/11/21 Range/Units 21:57 WBC (4.8-10.8) X10*3/uL RBC (4.60-5.80) X10*6/uL Hgb (14.0-18.0) g/dl Hct (42.0-52.0) % MCV (80.0-98.0) fL MCH (27.0-33.0) pg MCHC (31.0-36.0) g/dl RDW (11.0-16.0) % Plt Count (160-400) X10*3/uL MPV (9.4-12.4) fL Immature Gran % (Auto) (0.0-0.4) % Neut % (Auto) (45-73) % Lymph % (Auto) (20-40) % Jackson % (Auto) (2-11) % Eos % (Auto) (0-4) % Baso % (Auto) (0-2) % Lymph # (Auto) (1.2-4.9) X10*3/uL Jackson # (Auto) (0.1-1.2) X10*3/uL Eos # (Auto) (0.0-0.4) X10*3/uL Baso # (Auto) (0.0-0.2) X10*3/uL Abs Immat Gran (auto) (0.00-0.03) X10*3/uL Absolute Neuts (auto) (2.0-8.3) x10*3/uL Absolute Nucleated RBC (0.0-0.012) X10*3/uL Nucleated RBC % (auto) (0.0-0.2) /100WBC PT (9.9-13.0) SEC INR (0.9-1.1) Sodium (135-145) mmol/L Potassium (3.3-5.1) mmol/L Chloride (96-108) mmol/L Carbon Dioxide (22-29) mmol/L Anion Gap (12-20) BUN (9-16) mg/dL Creatinine (0.5-1.4) mg/dL Estim Creat Clear Calc Estimated GFR Random Glucose (60-115) mg/dL Lactic Acid (0.5-2.0) mmol/L Lactic Acid F/U @ 2Hr (0.5-2.0) mmol/L Lactic Acid F/U @ 4Hr (0.5-2.0) mmol/L Calcium (8.4-10.2) mg/dL Magnesium (1.6-2.6) mg/dL Total Bilirubin (0.0-1.0) mg/dL Direct Bilirubin (0.0-0.5) mg/dL AST (5-37) U/L ALT (0-40) U/L Alkaline Phosphatase (39-117) U/L Troponin I High Sens (<3.5-35.0) ng/L B-Natriuretic Peptide (<100) pg/mL Total Protein (6.5-8.0) g/dL Albumin (3.5-5.0) g/dL Urine Color Urine Appearance Urine pH (5.0-8.0) Ur Specific [place] (1.005-1.025) Urine Protein (NEG-TRACE) MG/DL Urine Glucose (UA) (NEG) MG/DL Urine Ketones (NEG) MG/DL Urine Blood (NEG) Urine Nitrite (NEG) Ur Leukocyte Esterase (NEG) COVID-19 (MAGY) (Negative) COVID-19 Clin Com Influenza Type A (TRICIA) (Negative) Influenza Type A (PCR) NEGATIVE (Negative) Influenza Type B (TRICIA) (Negative) Influenza Type B (PCR) NEGATIVE (Negative) Influenza A & B Note RSV RNA Qual (PCR) NEGATIVE (Negative) SARS-CoV-2 RNA (RT-PCR) NEGATIVE (Negative) <JOSIANE Saenz - Last Filed: 08/11/21 23:41> Imaging Data Chest x-ray: Attestation: I personally reviewed and interpreted this imaging study as follows: <Opal Melton NP - Last Filed: 08/11/21 17:54> Radiologist's impression: [place] [id number] XRay Report Signed Patient: Ottoniel Salas MR#: [id number] : 1945 Acct:[id number] Age/Sex: 76 / M ADM Date: 08/11/21 Loc: .ED Attending Dr: Ordering Physician: Opal Melton NP Date of Service: 08/11/21 Procedure(s): XR chest 2V Accession Number(s): [id number] cc: Opal Melton NP~ EXAMINATION: XR CHEST CLINICAL INFORMATION: Shortness of breath COMPARISON: Chest x-ray 09/10/2020. CT of chest 01/11/2021 TECHNIQUE: 2 views of the chest were obtained. FINDINGS: ?Lungs are clear. No pulmonary vascular congestion. There is no pleural effusion. The heart size is normal. The cardiac and mediastinal contours are normal. There are calcifications of the thoracic aorta. Surgical clips at the area of the GE junction. There are multilevel degenerative changes of dorsal spine.? ? XR/XR chest 2V IMPRESSION: Unremarkable examination. <Opal Melton NP - Last Filed: 08/11/21 17:54> ECG Data ECG #1: Attestation: I personally reviewed and interpreted this ECG as follows: <Opal Melton NP - Last Filed: 08/11/21 17:54> ECG interpretation date: 08/11/21 <Opal Melton NP - Last Filed: 08/11/21 17:54> ECG interpretation time: 14:24 <Opal Melton NP - Last Filed: 08/11/21 17:54> Interpretation: normal sinus rhythm with PACs with a rate of 94, normal OR, normal QRS, normal QT <Opal Melton NP - Last Filed: 08/11/21 17:54> Critical Care Time Critical Care Time Critical Care Time: No <JOSIANE Saenz - Last Filed: 08/11/21 23:41> Discharge Plan Discharge Clinical Impression: Breath shortness, Bronchitis <Opal Melton NP - Last Filed: 08/11/21 17:54> Patient Disposition: Home, Self-Care <Opal Melton NP - Last Filed: 08/11/21 17:54> Instructions: Acute Bronchitis (ED), Shortness of Breath (ED) <Opal Melton NP - Last Filed: 08/11/21 17:54> Additional Instructions: Take your medications as prescribed. If you were prescribed antibiotics today, it is important that you take your medication to their entirety, do not skip any doses, do not finish them early. Follow-up with your primary care provider this week. Follow-up with your pulmonology doctor. Return to the emergency department with new or worsening symptoms. Such as fevers, chills, chest pain, shortness of breath, nausea, vomiting, dizziness, headache, vision changes, lethargy, leg swelling, calf pain In case of emergency call 911 CT/CT chest wo con IMPRESSION: ? 1. No evidence of focal consolidation. No acute pulmonary process identified. ? 2. No evidence of pneumothorax. ? 3. 4 mm nodule right upper lobe, stable from 01/11/2021. According to the UPDATED 2017 Fleischner Society recommendations, the advised follow-up imaging for solid nodules < 6 mm is: ?? LOW RISK PATIENT: No routine follow-up. ?? HIGH RISK PATIENT: Optional CT at 12 months.? <Opal Melton NP - Last Filed: 08/11/21 17:54> Prescriptions: New albuterol sulfate 90 mcg/actuation aerosol powdr breath activated 2 inh inhalation Q4-6H PRN (Reason: shortness of breath or wheezing) Qty: 1 0RF azithromycin 250 mg tablet See Rx Instructions .ROUTE .COMPLEX Qty: 6 0RF Rx Instructions: For 250 mg dose pack: take 500 mg today (day 1), then 250 mg for 4 days (days 2-5) prednisone 20 mg tablet 20 mg PO DAILY 5 Days Qty: 5 0RF No Action clotrimazole-betamethasone 1-0.05 % cream 1 appl topical BID 28 Days Qty: 45 0RF omeprazole 40 mg capsule,delayed release(DR/EC) 40 mg PO DAILY 90 Days Qty: 90 3RF nystatin 100,000 unit/gram ointment 1 appl topical TID Qty: 30 0RF apixaban 5 mg tablet 5 mg PO BID 90 Days Qty: 180 1RF cyanocobalamin (vitamin B-12) 1,000 mcg/mL solution 1,000 mcg subcut .Qmonthly Qty: 3 3RF (DME) BD Safety-Jackie Detachable Needl 3 mL 25 gauge x 5/8 syringe See Rx Instructions .ROUTE .MEDSUPPLY Qty: 100 12RF Rx Instructions: As directed fexofenadine 180 mg tablet 180 mg PO DAILY PRN (Reason: allergy symptoms) Qty: 90 3RF metoclopramide HCl [Reglan] 10 mg tablet 10 mg PO Q6H PRN (Reason: nausea and vomiting) Qty: 30 0RF diphenhydramine HCl [Benadryl] 25 mg capsule 25 mg PO TID PRN (Reason: nausea and vomiting) Qty: 14 0RF baclofen 10 mg tablet 10 mg PO TID PRN (Reason: Spasms) 0RF Rx Instructions: Take 3 times a day with Food or Milk. trazodone 50 mg tablet 1 - 2 tab PO BEDTIME PRN (Reason: Insomnia) 0RF aefxcbdkxn-bamqoatbrcrlx-urrs 50-325-40 mg tablet 1 tab PO BEDTIME PRN (Reason: Migraine Headache) 0RF lorazepam 1 mg tablet 1 tab PO BID PRN (Reason: Anxiety) 0RF colchicine [Colcrys] 0.6 mg Tablet 0.6 mg PO BID PRN (Reason: Pain) 0RF venlafaxine 150 mg capsule,extended release 24hr 187.5 mg PO DAILY 0RF alfuzosin 10 mg tablet extended release 24 hr 10 mg PO QAM 0RF divalproex 500 mg tablet,delayed release (DR/EC) 500 mg PO QAM 0RF lactulose 20 gram/30 mL solution 20 g PO BID PRN (Reason: constipation) Qty: 3000 0RF clotrimazole 1 % cream 1 appl topical BID 28 Days Qty: 45 1RF Zeasorb AF 2 % powder 1 appl topical BID Qty: 71 1RF amlodipine 10 mg tablet 10 mg PO DAILY Qty: 90 2RF ferrous sulfate [Feosol] 325 mg (65 mg iron) tablet 325 mg PO DAILY Qty: 90 2RF <Opal Melton NP - Last Filed: 08/11/21 17:54> Referrals: Po,Thania Childs MD [Primary Care Provider] - 2 days <Opal Melton NP - Last Filed: 08/11/21 17:54> Stand Alone Forms: Work/School Release <Opal Melton NP - Last Filed: 08/11/21 17:54>
[2021-08-11 15:49] LABS: MANUAL DIFF FLAG NO
[2021-08-11 15:58] LABS: Basophils Absolute Auto 0.1 X10*3/uL (0.0-0.2); Basophils Percent Auto 0.7 % (0-2); Eosinophils Absolute Auto 0.1 X10*3/uL (0.0-0.4); Eosinophils Percent Auto 0.5 % (0-4); Hematocrit 42.7 % (42.0-52.0); Hemoglobin 14.2 g/dl (14.0-18.0); Imm Gran Abs Auto 0.05 X10*3/uL (0.00-0.03); Imm Gran Pct Auto 0.5 % (0.0-0.4); Lymphocytes Percent Auto 18.5 % (20-40); Mean Corpuscular HGB Conc 33.3 g/dl (31.0-36.0); Mean Corpuscular Hemoglobin 30.6 pg (27.0-33.0); Mean Platelet Volume 10.8 fL (9.4-12.4); Monocytes Absolute Auto 1.1 X10*3/uL (0.1-1.2); Neutrophils Absolute Auto 7.5 x10*3/uL (2.0-8.3); Neutrophils Percent Auto 69.8 % (45-73); Platelet Count 342 X10*3/uL (160-400); Red Blood Count 4.64 X10*6/uL (4.60-5.80); Red Cell Distribution Width 13.2 % (11.0-16.0); White Blood Count 10.7 X10*3/uL (4.8-10.8)
[2021-08-11 16:02] LABS: INTERNATIONAL NORM RATIO 1.2 (0.9-1.1); Prothrombin Time 13.6 SEC (9.9-13.0)
[2021-08-11 16:10] LABS: Alanine Aminotransferase 15 U/L (0-40); Albumin Level 4.2 g/dL (3.5-5.0); Alkaline Phosphatase 93 U/L (39-117); Anion Gap 17 (12-20); Aspartate Amino Transferase 12 U/L (5-37); Bilirubin Direct < 0.2 mg/dL (0.0-0.5); Bilirubin Total 0.3 mg/dL (0.0-1.0); Blood Urea Nitrogen 26 mg/dL (9-16); Calcium 9.1 mg/dL (8.4-10.2); Carbon Dioxide 21 mmol/L (22-29); Chloride 103 mmol/L (96-108); Creatinine Clr Calc Pharmacy 78.7; Estimated Glomerular Filt Rate > 60; Glucose Random 101 mg/dL (60-115); Lactic Acid 2.3 mmol/L (0.5-2.0); Magnesium 2.1 mg/dL (1.6-2.6); Potassium 4.2 mmol/L (3.3-5.1); Sodium 137 mmol/L (135-145); Total Protein 6.9 g/dL (6.5-8.0)
[2021-08-11 16:12] LABS: COVID-19 Test Negative (Negative)
[2021-08-11 16:13] LABS: B Type Natriuretic Peptide 44 pg/mL (<100); IDNOW Serial# 16C4AD1C; Influenza A Negative (Negative); Influenza B2 Negative (Negative)
[2021-08-11 16:14] LABS: Troponin-I High Sensitivity 4.5 ng/L (<3.5-35.0)
[2021-08-11] MEDS: Albuterol/Iprat 2.5/0.5MG 3 ML AMPUL.NEB INHALE (17:09)
[2021-08-11 17:46] LABS: Reflex Lactate? Lactic Acid Added
--- NOTE | 2021-08-11 17:57 | PC.NURSE ---
Pt described SOB with exertion and when he wakes each morning. rest resolves SOB and sometimes needs to take ativan. no pedal edema. ls cta. just standing to urinate is SOB and has increased WOB
[2021-08-11] MEDS: cefTRIAXone sodium 1 GM in 0.9 % Sodium Chloride 50 ML IV (17:59)
[2021-08-11] MEDS: predniSONE 20 MG TABLET 60 MG PO (17:59)
[2021-08-11] MEDS: 0.9 % Sodium Chloride 1,000 ML 999 ML IV ×3 (18:03→23:00)
[2021-08-11 19:39] LABS: ~Lactic Acid-LAB USE ONLY 3.3 mmol/L (0.5-2.0)
[2021-08-11 20:55] LABS: Appearance Urine CLEAR; Color Urine YELLOW; Glucose Urine UA NEG (NEG); Leukocyte Esterase Urine NEG (NEG); Nitrite Urine NEG (NEG); Specific Gravity - Urine >= 1.030 (1.005-1.025); Urine Blood NEG (NEG); Urine Ketones 5 MG/DL (NEG); Urine Protein NEG (NEG-TRACE)
[2021-08-11] MEDS: LORazepam 1 MG TABLET PO (21:16)
[2021-08-11 21:20] LABS: Reflex Lactate? 2 Y
--- NOTE | 2021-08-11 21:24 | PC.NURSE ---
pt made aware he will be admitted, pt asking about further lab draws and urine samples. pt was told nothing is ordered but repeat bloodwork in the am is expected. pt voided into urinal at bedside, resting in bed
[2021-08-11 22:44] LABS: Influenza A PCR NEGATIVE (Negative); Influenza B PCR NEGATIVE (Negative); Resp Syncy Virus RNA Qual PCR NEGATIVE (Negative); SARS COV2 PCR INHOUSE NEGATIVE (Negative)
[2021-08-11 23:03] LABS: ~Lactic Acid-LAB USE ONLY 2.4 mmol/L (0.5-2.0)
[2021-08-11] MEDS: Albuterol Sulfate 90 MCG 8 GM INHALER 2 PUFF INHALE (23:18)
--- NOTE | 2021-08-11 23:21 | PC.NURSE ---
pt trialed trending pulse ox. 95-97% on RA, no increased WOB, pt denied dizziness, steady gait ambulating independently.
[2021-08-11 23:30] LABS: Lactic Acid 3.3 mmol/L (0.5-2.0)
[2021-08-12 00:02] VITALS: BP 140/76; PULSE 78; RESP 17; TEMP 36.9; O2SAT 95
--- NOTE | 2021-08-12 00:25 | PC.NURSE ---
pt ambulated to BR, no c/o dizziness or SOB
[2021-08-12 01:12] LABS: Reflex Lactate? Lactic Acid Added
== END 2021-08-12 00:32 | disposition home or self-care (01) ==
PROVIDERS: Emergency Medicine; Nurse Practitioner Family; Physician Assistant; Emergency Provider Student in an Organized Health Care Education/Training Program; PCP Internal Medicine
DX: B34.9 Viral infection, unspecified (principal); R07.89 Other chest pain; R06.02 Shortness of breath; R05.9 Cough, unspecified; Z20.822 Contact with and (suspected) exposure to COVID-19; Z79.01 Long term (current) use of anticoagulants; Z86.711 Personal history of pulmonary embolism; Z79.899 Other long term (current) drug therapy
CPT/HCPCS: 0241U; 36415; 71046; 71250; 80048; 80076; 81003; 83605; 83735; 83880; 84484; 85025; 85610; 87040; 87502; 87635; 93005; 94640; 96361; 96365; 99285; J0696

== ENCOUNTER 2021-08-17 10:58 | Outpatient (REF) | payer MEDICARE, SELFPAY ==
--- NOTE | 2021-08-17 13:41 | PFT_ITS ---
Forced vital capacity 81%. FEV1 is 78%. FEV1/FVC ratio 71. [id number] is 68% and MVV 87%. Post bronchodilator therapy, there is a slight improvement in [id number]. Total lung capacity 77%. Residual volumes also 77%. Diffusion capacity 70%. CONCLUSION: A very mild degree of restrictive pulmonary disorder. Very mild obstructive airway disorder with good response to bronchodilator therapy. This may be due to a mild degree of bronchial asthma. Clinical correlation is recommended. MD LANE Powell/MODL / [phone]
== END 2021-08-17 10:59 | disposition home or self-care (01) ==
LOC: HO.RESP 10:58
PROVIDERS: PCP Internal Medicine; Visit Provider Internal Medicine
DX: R06.02 Shortness of breath (principal)
CPT/HCPCS: 94060; 94727; 94729

== ENCOUNTER → 2021-10-17 09:28 | Outpatient (REF) | payer MEDICARE, SELFPAY ==
--- NOTE | ~2021-10-17 | NM_ITS ---
Myocardial perfusion study Indication: Shortness of breath evaluate for myocardial ischemia Technique: The patient was brought in for a Lexiscan perfusion study on 10/17/2021. Patient performed low-level exercise and was injected 0.4 mg of Lexiscan intravenously. Within a minute of injection, 40 mCi of sestamibi was given intravenously. Images were obtained using the SPECT gamma camera interlaced with the gating device. Images were obtained in supine position. Resting perfusion study was performed on 10/18/2021. Patient was administered 40 mCi of sestamibi intravenously at rest. Images were then obtained in supine position. Images obtained with and without CT attenuation. Total DLP 95 mGy-cm Images were processed with the software and compared side to side in short axis, horizontal long axis and vertical long axis views. Findings: The stress perfusion study showed non attenuated images show mildly reduced uptake in the basal inferior and mid inferior wall of the LV myocardium. Remainder of the LV myocardium is normally perfused. Attenuation corrected images show normal uptake of radiotracer in all segments of LV myocardium. There is suggestion of mild left ventricle hypertrophy. The gated study shows normal LV systolic function with calculated LVEF of 63%. LV cavity is normal in size. The gated study shows normal systolic wall thickening and contraction of segments. Resting study shows no change in perfusion pattern compared to stress perfusion study. Gating at rest reveals normal systolic wall motion with ejection fraction at greater than 60 %. The findings are consistent with no clear reversible defect suggestive of ischemia normal myocardial perfusion. NM/NM judith perf SPECT rest & str Impression: 1. Myocardial perfusion imaging study shows normal myocardial perfusion 2. Gated LVEF is 63% 3. Transient ischemic dilatation not present EKG is nondiagnostic for ischemia
--- NOTE | 2021-10-17 09:34 | CA_ITS ---
Acquisition Time: 2021-10-17 09:48:38 Total Exercise Time: 00:02:00 Test Indications: AFIB Medications: SEE CHART Protocol: LEXISCAN Max HR: 102 BPM 70% of Pred: 145 BPM Max BP: 136/064 mmHG Max Work Load: 1.0 METS Pharmacological stress test with Lexiscan injection, while sitting and kicking his legs, without anginal symptoms, with isolated PACs, thn post Lexiscan developed P wave inversions and isolated PVCs, with normotensive response to injection, with nondiagnostic EKG for ischemia.In recovery he was treated with Aminophylline 75mg IVP to reverse Lexiscan with return of upright P waves. Nuclear images pending. Test reviewed with Dr Garcia. Referred By: Page Mcdaniels Overread By: ARLEN RIVERA
== END ==
LOC: HO.CARD 09:28
PROVIDERS: PCP Nurse Practitioner Acute Care; Visit Provider Nurse Practitioner Acute Care
DX: R07.89 Other chest pain (principal); R06.02 Shortness of breath
CPT/HCPCS: 78452; 93017; A9500; J0280; J2785

== ENCOUNTER 2021-11-24 15:23 | Outpatient (REF) | payer MEDICARE, SELFPAY ==
[2021-11-24 15:43] LABS: MANUAL DIFF FLAG NO
[2021-11-24 15:56] LABS: Basophils Absolute Auto 0.1 X10*3/uL (0.0-0.2); Basophils Percent Auto 0.6 % (0-2); Eosinophils Absolute Auto 0.1 X10*3/uL (0.0-0.4); Eosinophils Percent Auto 0.7 % (0-4); Hematocrit 42.4 % (42.0-52.0); Hemoglobin 14.2 g/dl (14.0-18.0); Imm Gran Abs Auto 0.13 X10*3/uL (0.00-0.03); Lymphocytes Absolute Auto 4.2 X10*3/uL (1.2-4.9); Lymphocytes Percent Auto 31.4 % (20-40); Mean Corpuscular HGB Conc 33.5 g/dl (31.0-36.0); Mean Corpuscular Hemoglobin 31.1 pg (27.0-33.0); Mean Platelet Volume 10.5 fL (9.4-12.4); Monocytes Absolute Auto 0.9 X10*3/uL (0.1-1.2); Monocytes Percent Auto 6.4 % (2-11); Neutrophils Absolute Auto 8.1 x10*3/uL (2.0-8.3); Neutrophils Percent Auto 59.9 % (45-73); Platelet Count 299 X10*3/uL (160-400); Red Blood Count 4.56 X10*6/uL (4.60-5.80); Red Cell Distribution Width 14.2 % (11.0-16.0); White Blood Count 13.5 X10*3/uL (4.8-10.8)
[2021-11-24 16:19] LABS: Alanine Aminotransferase 23 U/L (0-40); Albumin Level 4.4 g/dL (3.5-5.0); Alkaline Phosphatase 83 U/L (39-117); Anion Gap 15 (12-20); Aspartate Amino Transferase 16 U/L (5-37); Bilirubin Total 0.2 mg/dL (0.0-1.0); Blood Urea Nitrogen 23 mg/dL (9-16); Carbon Dioxide 27 mmol/L (22-29); Chloride 103 mmol/L (96-108); Estimated Glomerular Filt Rate > 60; Glucose Random 95 mg/dL (60-115); Potassium 5.4 mmol/L (3.3-5.1); Sodium 140 mmol/L (135-145); Total Protein 6.9 g/dL (6.5-8.0)
[2021-11-24 16:40] LABS: TSH reflex Free T4 1.56 uIU/mL (0.32-4.0); Vitamin D 25-OH Total 14.8 ng/mL (>30)
[2021-11-24 17:42] LABS: Folate 10.2 ng/mL (> or = 4.0); Vitamin B12 623 pg/mL (200-900)
== END 2021-11-24 15:24 | disposition home or self-care (01) ==
LOC: HO.LAB 15:23
PROVIDERS: PCP Internal Medicine; Visit Provider Nurse Practitioner Family
DX: R53.83 Other fatigue (principal)
CPT/HCPCS: 36415; 80053; 82306; 82607; 82746; 84443; 85025

== ENCOUNTER 2021-11-28 10:57 | Outpatient (REF) | payer MEDICARE, SELFPAY ==
[2021-11-28 11:51] LABS: Hematocrit 42.9 % (42.0-52.0); Hemoglobin 14.2 g/dl (14.0-18.0); Mean Corpuscular HGB Conc 33.1 g/dl (31.0-36.0); Mean Corpuscular Hemoglobin 30.9 pg (27.0-33.0); Mean Corpuscular Volume 93.5 fL (80.0-98.0); Mean Platelet Volume 10.7 fL (9.4-12.4); Platelet Count 321 X10*3/uL (160-400); Red Blood Count 4.59 X10*6/uL (4.60-5.80); Red Cell Distribution Width 14.3 % (11.0-16.0); White Blood Count 12.6 X10*3/uL (4.8-10.8)
[2021-11-28 12:32] LABS: Anion Gap 16 (12-20); Blood Urea Nitrogen 28 mg/dL (9-16); Calcium 9.1 mg/dL (8.4-10.2); Carbon Dioxide 21 mmol/L (22-29); Chloride 108 mmol/L (96-108); Estimated Glomerular Filt Rate > 60; Glucose Random 63 mg/dL (60-115); Potassium 4.4 mmol/L (3.3-5.1); Sodium 141 mmol/L (135-145)
[2021-11-28 12:37] LABS: Vitamin D 25-OH Total 18.2 ng/mL (>30)
== END 2021-11-28 10:58 | disposition home or self-care (01) ==
LOC: HO.LAB 10:57
PROVIDERS: PCP Internal Medicine; Visit Provider Nurse Practitioner Family
DX: E87.5 Hyperkalemia (principal); E55.9 Vitamin D deficiency, unspecified; D72.829 Elevated white blood cell count, unspecified
CPT/HCPCS: 36415; 80048; 82306; 85027

== ENCOUNTER 2022-02-13 16:32 | Emergency (ER) | payer MEDICARE, SELFPAY ==
--- NOTE | ~2022-02-13 | CT_ITS ---
EXAMINATION: NONCONTRAST HEAD CT NONCONTRAST CERVICAL SPINE CT INDICATION INFORMATION: Fall with loss of consciousness on eliquis. Head and neck pain. COMPARISON: Head CT 01/11/2021, CT cervical spine 01/25/2020, chest CT 08/11/2021 TECHNIQUE: Separate noncontrast CT examinations of the head and cervical spine were performed. Coronal and sagittal images were created for each examination at the technologist workstation. This CT examination was performed using dose optimization techniques as appropriate, variously including the following: *Automated exposure control *Adjustment of mA and/or kV according to patient size (this includes techniques or standardized protocols for targeted exams where dose is matched to indication/reason for exam; i.e. extremities or head) *Use of iterative reconstruction technique DLP: 1566 mGy-cm FINDINGS: HEAD: No intra or extra-axial fluid collection, hemorrhage, or mass. No ventriculomegaly. No or herniation. Unchanged mild rightward midline shift. Basal cisterns are patent. Valentin-white matter differentiation is maintained. No territorial encephalomalacia. Proportional prominence of the ventricles and sulcal spaces is consistent with mild volume loss. Patchy periventricular and deep white matter hypoattenuation is consistent with mild small vessel ischemic changes. Soft tissue swelling overlying the right posterior scalp. No calvarial fracture. The mastoid air cells and visualized portions of the paranasal sinuses are well aerated. CERVICAL SPINE: Alignment: Normal. No subluxation. Vertebra: No acute cervical spine fracture. No prevertebral soft tissue swelling. Mild superior endplate compression deformity of T1, present on prior chest CT 08/11/2021. Slight the interval height loss, exact acuity uncertain. Degenerative disc disease: Advanced disc degenerative change at C5-C6 and C6-C7 with moderate to severe disc height loss, endplate sclerosis and proliferative change. Multilevel bilateral facet arthrosis. Small 5 mm sclerotic bone island at C5. Other findings: Visualized lung apices are clear save for a 2 mm left apical calcified granuloma. No cervical lymphadenopathy or mass identified in the [id number]. CT/CT cervical spine wo IV con IMPRESSION: 1. No intracranial hemorrhage or calvarial fracture. 2. Soft tissue swelling overlying the right posterior scalp. 3. No traumatic subluxation or acute cervical spine fracture. 4. Mild superior endplate compression deformity of T1, present on prior chest CT 08/11/2021 with slight interval height loss, exact acuity uncertain. Correlate clinically with pain referable to this level on exam.
--- NOTE | ~2022-02-13 | XR_ITS ---
EXAMINATION: XR RIBS, BILATERAL CLINICAL INFORMATION: Fall with pain COMPARISON: None TECHNIQUE: 2 views of the chest and 5 additional views of the right hemithorax as well as the left hemithorax FINDINGS: Cardiac silhouette within normal limits given supine position. No infiltrates, effusions or lung masses are seen surgical clips present at the GE junction. Kyphoplasty cement L1. Prior abdominal hernia repair. No rib fractures are seen. Mild degenerative changes are present in the shoulders, left greater than right. XR/XR ribs BI min 4V w CXR1V IMPRESSION: No rib fractures are seen. No acute intrathoracic disease.
[2022-02-13 16:37] VITALS: BP 104/85; PULSE 101; RESP 20; TEMP 36.2; O2SAT 97; BMI 34.5
--- NOTE | 2022-02-13 16:40 | ECG_ITS ---
Test Reason : CHEST PAIN Blood Pressure : / mmHG Vent. Rate : 113 BPM Atrial Rate : 113 BPM P-R Int : 168 ms QRS Dur : 076 ms QT Int : 326 ms P-R-T Axes : 023 011 058 degrees QTc Int : 447 ms Sinus tachycardia with Premature atrial complexes Left axis deviation Abnormal ECG When compared with ECG of 11-AUG-2021 14:24, No significant change was found Referred By: Alma Delia Phillips Electronically Signed By:YUMIKO ZELAYA MD
[2022-02-13 17:11] LABS: MANUAL DIFF FLAG NO
[2022-02-13 17:19] LABS: Basophils Absolute Auto 0.1 X10*3/uL (0.0-0.2); Basophils Percent Auto 0.5 % (0-2); Eosinophils Absolute Auto 0.1 X10*3/uL (0.0-0.4); Eosinophils Percent Auto 0.6 % (0-4); Hematocrit 43.8 % (42.0-52.0); Hemoglobin 14.9 g/dl (14.0-18.0); Imm Gran Abs Auto 0.13 X10*3/uL (0.00-0.03); Imm Gran Pct Auto 0.8 % (0.0-0.4); Lymphocytes Absolute Auto 2.9 X10*3/uL (1.2-4.9); Lymphocytes Percent Auto 19.1 % (20-40); Mean Corpuscular Hemoglobin 32.3 pg (27.0-33.0); Mean Corpuscular Volume 94.8 fL (80.0-98.0); Monocytes Absolute Auto 1.2 X10*3/uL (0.1-1.2); Monocytes Percent Auto 7.8 % (2-11); Neutrophils Percent Auto 71.2 % (45-73); Platelet Count 313 X10*3/uL (160-400); Red Blood Count 4.62 X10*6/uL (4.60-5.80); Red Cell Distribution Width 13.1 % (11.0-16.0); White Blood Count 15.4 X10*3/uL (4.8-10.8)
[2022-02-13 17:28] LABS: COVID-19 Test Negative (Negative); IDNOW Serial# 16C4AD1C
[2022-02-13 17:29] LABS: Alanine Aminotransferase 34 U/L (0-40); Albumin Level 4.1 g/dL (3.5-5.0); Alkaline Phosphatase 99 U/L (39-117); Anion Gap 19 (12-20); Aspartate Amino Transferase 59 U/L (5-37); Bilirubin Direct < 0.2 mg/dL (0.0-0.5); Bilirubin Total 0.4 mg/dL (0.0-1.0); Blood Urea Nitrogen 18 mg/dL (9-16); Calcium 9.2 mg/dL (8.4-10.2); Carbon Dioxide 21 mmol/L (22-29); Chloride 101 mmol/L (96-108); Creatinine Clr Calc Pharmacy 83.8; Estimated Glomerular Filt Rate > 60; Glucose Random 112 mg/dL (60-115); Potassium 4.6 mmol/L (3.3-5.1); Sodium 136 mmol/L (135-145)
[2022-02-13 17:35] LABS: Troponin-I High Sensitivity 8.3 ng/L (<3.5-35.0)
--- NOTE | 2022-02-13 18:33 | ED.FALL ---
HPI - Fall General Chief Complaint: Fall Stated Complaint: fall , hit head lost consciousness Time Seen by Provider: 02/13/22 18:20 Source: patient Mode of arrival: ambulatory Limitations: no limitations History of Present Illness HPI Narrative: 76-year-old male with a history of anxiety, pulmonary embolism on Eliquis,? anemia,? GERD, hypertension who presents after fall. Patient tells me that he was applying a cream to a rash on his leg when he lost balance due to some chronic left hip pain falling to the ground with head strike. Patient believes he may have had a loss of consciousness. When he woke up he reports headache, feeling disoriented, neck pain and some rib discomfort. ?No shortness of breath, abdominal pain, vomiting, dizziness, vision changes. No pre fall symptoms of dizziness, palpitations, chest pain or shortness of breath or headache. Related Data Home Medications Medication Instructions Recorded Confirmed alfuzosin 10 mg tablet,extended 10 mg PO QAM 03/09/20 12/14/21 release 24 hr divalproex 500 mg tablet,delayed 500 mg PO QAM 05/26/20 12/14/21 release jexhtzcois-pxrhapzpdqkek-dkegdqba 1 tab PO BEDTIME PRN Migraine 10/20/20 12/14/21 50 mg-325 mg-40 mg tablet Headache colchicine 0.6 mg tablet (Colcrys) 0.6 mg PO BID PRN Pain 10/20/20 12/14/21 lorazepam 1 mg tablet 1 tab PO BID PRN Anxiety 10/20/20 12/14/21 venlafaxine 150 mg 187.5 mg PO DAILY 04/17/21 12/14/21 capsule,extended release 24 hr melatonin 10 mg tablet 10 mg PO BEDTIME PRN 11/23/21 12/14/21 fluticasone propionate 45 2 puff inhalation BID 12/14/21 12/14/21 mcg-salmeterol 21 mcg/actuation HFA inhaler (Advair HFA) Previous Rx's Medication Instructions Recorded lactulose 20 gram/30 mL oral 20 g (30 mL) PO BID PRN 08/01/20 solution constipation #3,000 mL diphenhydramine HCl 25 mg capsule 25 mg PO TID PRN nausea and 09/10/20 (Benadryl) vomiting #14 caps metoclopramide HCl 10 mg tablet 10 mg PO Q6H PRN nausea and 09/10/20 (Reglan) vomiting #30 tabs clotrimazole 1 % topical cream 1 appl topical BID 4 weeks #45 11/30/20 grams miconazole nitrate 2 % topical 1 appl topical BID #71 grams 11/30/20 powder (Zeasorb AF) clotrimazole-betamethasone 1 1 appl topical BID 4 weeks #45 12/06/20 %-0.05 % topical cream grams nystatin 100,000 unit/gram topical 1 appl topical TID #30 grams 12/29/20 ointment apixaban 5 mg tablet 5 mg PO BID 90 days #180 tabs 01/19/21 amlodipine 10 mg tablet 10 mg PO DAILY #90 caps 04/17/21 cyanocobalamin (vitamin B-12) 1,000 mcg subcut .Qmonthly #3 caps 06/01/21 1,000 mcg/mL injection solution syringe with needle, safety 3 mL #100 ea 06/02/21 25 gauge x 5/8 (BD Safety-Jackie Detachable Needle) ferrous sulfate 325 mg (65 mg 325 mg PO DAILY #90 tabs 08/08/21 iron) tablet (Feosol) fexofenadine 180 mg tablet 180 mg PO DAILY PRN allergy 08/10/21 symptoms #90 caps baclofen 10 mg tablet 10 mg PO TID PRN Spasms #90 tabs 09/04/21 fluticasone propionate 45 2 puff inhalation BID #12 grams 09/22/21 mcg-salmeterol 21 mcg/actuation HFA inhaler (Advair HFA) cholecalciferol (vitamin D3) 1,250 1,250 mcg PO QWEEK #12 caps 11/24/21 mcg (50,000 unit) capsule hydrocortisone 2.5 % topical cream 1 appl topical BID PRN skin 12/14/21 irritation 7 days #30 grams albuterol sulfate 90 mcg/actuation 2 puff inhalation Q6H PRN 12/22/21 aerosol inhaler (ProAir HFA) shortness of breath or wheezing #8.5 grams omeprazole 40 mg capsule,delayed 40 mg PO DAILY 90 days #90 caps 01/18/22 release Allergies Allergy/AdvReac Type Severity Reaction Status Date / Time carisoprodol [From Soma] Allergy Mild MENTAL Verified 01/03/22 09:42 STATUS CHANGE, BECOMES AGGRESIVE codeine [Codeine] Allergy Mild STOMACH Verified 01/03/22 09:42 UPSET, RASH gabapentin AdvReac Intermediate lousy Verified 01/03/22 09:42 feeling Review of Systems Review of Systems: Yes all other systems are reviewed and are negative Constitutional: Constitutional: Reports no additional constitutional complaints, Denies body ache(s), Denies chills, Denies fever(s), Reports headache(s) and Denies weakness Eyes: Eyes: Reports no additional eye complaints, Denies change in vision and Denies photophobia ENT: Reports system reviewed and no additional complaints, except as documented, Denies dizziness, Reports headache(s), Denies nasal congestion, Denies nasal discharge and Reports neck pain Cardiovascular: Cardiovascular: Reports no additional cardiovascular complaints, Reports chest pain, Denies leg edema and Denies dyspnea Respiratory: Respiratory: Reports no additional respiratory complaints, Denies cough and Denies dyspnea Gastrointestinal: Gastrointestinal: Reports no additional gastrointestinal complaints, Denies abdominal pain, Denies diarrhea, Denies nausea and Denies vomiting Genitourinary: Genitourinary: Denies urinary incontinence Musculoskeletal: Musculoskeletal: Reports no additional musculoskeletal complaints, Denies back pain, Denies arthralgias, Denies joint swelling, Reports neck pain, Denies numbness and Denies tingling Integumentary/Breasts: Skin/Breast: Reports system reviewed and no additional complaints, except as docu and Denies rash Neurologic: Reports system reviewed and no additional complaints, except as documented, Denies Abnormal speech present, Denies dizziness, Reports headache(s), Denies numbness, Denies tingling and Denies weakness [facility] Past Medical History Attestation statement: The following information was validated with the patient. Source: old records reviewed and nursing notes reviewed Medical History Allergic bronchitis Anxiety and depression Asthma exacerbation Atrial fibrillation Chest tightness Constipation Degenerative disc disease Diverticular disease Dyspnea on exertion Dysuria Fatigue Fatigue Generalized anxiety disorder GERD (gastroesophageal reflux disease) Gout Headache Hospital discharge follow-up Hypertension Iron deficiency anemia Knee fracture, left Leukocytosis Low vitamin D level Moderate recurrent major depression Obesity (BMI 30-39.9) Obstructive sleep apnea Peptic ulcer disease Premature atrial complexes Prostate cancer Rash Serum potassium elevated Shortness of breath SOB (shortness of breath) on exertion Tinea cruris Vitamin B12 deficiency Vitamin D deficiency Wedge compression fracture of L1 vertebra Surgical History H/O hernia repair H/O rectal polypectomy History of bowel resection History of cholecystectomy History of colonoscopy History of hemiarthroplasty of left hip History of knee replacement procedure of left knee History of pyloroplasty Family History Family History Father Diabetes Acute kidney failure Glaucoma Mother Lung cancer Social History Social History Housing: Apartment Alcohol intake: unknown Patient Tobacco Use Status: Former Tobacco user Quit Date: Tobacco use type: Cigar e-Cigarette/Vaping Use: Currently Using Second Hand Smoke Exposure: No Advance Directives: No Advance Directives Information Provided: No Advance Directives Date on File: 01/30/20 service: No Current occupational status: retired Cognitive needs: No Hearing needs: Yes Vision needs: Yes Physical Exam Vital Signs: Vital Signs: Last Vital Signs Temp 97.2 F 02/13/22 16:37 Pulse 101 H 02/13/22 16:37 Resp 20 02/13/22 16:37 BP 104/85 02/13/22 16:37 Pulse Ox 97 02/13/22 16:37 O2 Del Method 02/13/22 16:37 BMI result Body Mass Index 34.5 Const: General: cooperative, healthy appearing, comfortable and no acute distress Orientation/consciousness: patient oriented x3 Limitations: no limitations HEENT: Head: Yes normal to inspection, No Hansen's sign and No raccoon eyes Ears: hearing grossly normal bilaterally and TM's normal bilaterally General nose exam: Normal external nose present Face and sinus: Yes normal facial exam Mouth: Normal oral and palatal mucosa present Throat: Yes posterior oropharynx normal, Yes tonsils normal and Yes uvula midline Eyes: General: appearance normal, both eyes and all related structures Pupils: Equal, round and reactive pupils present Direct Ophthalmoscopy: No photophobia Neck: Other: There is cervical midline tenderness with no step-offs or deformities Neck: Yes normal visual inspection and Yes full ROM Chest: Other: Tenderness to bilateral chest wall with no crepitus, deformity or ecchymosis Chest palpation & inspection: normal inspection of the chest Resp: Effort & Inspection: normal respiratory effort Auscultation: clear to auscultation bilaterally Cardio: Rate: regular rate Rhythm: regular rhythm Peripheral pulses: Peripheral pulses 2+ throughout GI: Inspection: Yes normal to inspection Palpation (GI): Soft to palpation and nontender Auscultation: normal bowel sounds Back/Spine/Pelvis: Thoracic/Lumbar Spine: thoracic and lumbar spine normal to inspection Skin: General skin exam: no rashes or lesions noted Neuro: General: patient oriented x3, no focal motor deficits and normal sensation to monofilament Cranial nerves: Yes CN's II-XII intact bilaterally, Yes Equal, round and reactive pupils present, Yes Bilaterally intact EOM present, Yes Nystagmus not present, Yes Normal facial strength present and Yes Midline tongue present Cognition (Neuro): normal cognition Speech: No Abnormal speech present Gait exam (Neuro): Normal gait present Motor exam (neuro): 5/5 motor strength present throughout Sensory Exam: Normal double simultaneous stimulation for sensation Extrem: General: Yes normal to inspection, Yes no pedal edema and Yes no calf tenderness Course Course Course Narrative: Labs unremarkable. X-ray of the chest and ribs show no acute finding. CT head and neck are negative for any bony abnormality or intracranial hemorrhage. Patient is alert and oriented. Normal neurological exam. Tolerating p.o.. Will discharge home with head injury return precautions. Reviewed worrisome signs and symptoms of when to return to the emergency room. Comfortable plan for discharge home. MDM - Fall MDM Narrative Medical decision making narrative: 76 male with history of anxiety, pulmonary embolism on Eliquis,? anemia,? GERD, hypertension?presents here with fall with head strike which occurred just [employer]ATORY THER[employer]IST[employer] which patient reports is from losing his balance w/ ?brief LOC. He is complaining of headache, neck pain, chest wall pain and feeling slightly disoriented. He is alert and oriented x4. Has normal neurological exam. Bilateral chest wall tenderness with no crepitus, deformity or ecchymosis. Lungs are clear throughout. Vitals are stable. Will check x-ray of ribs and chest, CT head and cervical spine Considered concussion, ICH, cervical fracture vs strain Medical Records Attestation: I reviewed the patient's medical records. Lab Data Attestation: I reviewed the patient's lab results. Result diagrams: 02/13/22 16:54 02/13/22 16:54 Labs: Lab Results 02/13/22 02/13/22 02/13/22 Range/Units 16:54 16:54 16:54 WBC 15.4 H (4.8-10.8) X10*3/uL RBC 4.62 (4.60-5.80) X10*6/uL Hgb 14.9 (14.0-18.0) g/dl Hct 43.8 (42.0-52.0) % MCV 94.8 (80.0-98.0) fL MCH 32.3 (27.0-33.0) pg MCHC 34.0 (31.0-36.0) g/dl RDW 13.1 (11.0-16.0) % Plt Count 313 (160-400) X10*3/uL MPV 10.0 (9.4-12.4) fL Immature Gran % (Auto) 0.8 H (0.0-0.4) % Neut % (Auto) 71.2 (45-73) % Lymph % (Auto) 19.1 L (20-40) % [place] % (Auto) 7.8 (2-11) % Eos % (Auto) 0.6 (0-4) % Baso % (Auto) 0.5 (0-2) % Lymph # (Auto) 2.9 (1.2-4.9) X10*3/uL [place] # (Auto) 1.2 (0.1-1.2) X10*3/uL Eos # (Auto) 0.1 (0.0-0.4) X10*3/uL Baso # (Auto) 0.1 (0.0-0.2) X10*3/uL Abs Immat Gran (auto) 0.13 H (0.00-0.03) X10*3/uL Absolute Neuts (auto) 11.0 H (2.0-8.3) x10*3/uL Absolute Nucleated RBC 0.000 (0.0-0.012) X10*3/uL Nucleated RBC % (auto) 0.0 (0.0-0.2) /100WBC Sodium 136 (135-145) mmol/L Potassium 4.6 (3.3-5.1) mmol/L Chloride 101 (96-108) mmol/L Carbon Dioxide 21 L (22-29) mmol/L Anion Gap 19 (12-20) BUN 18 H (9-16) mg/dL Creatinine 1.00 (0.5-1.4) mg/dL Estim Creat Clear Calc 83.8 Estimated GFR > 60 Random Glucose 112 D (60-115) mg/dL Calcium 9.2 (8.4-10.2) mg/dL Total Bilirubin 0.4 (0.0-1.0) mg/dL Direct Bilirubin < 0.2 (0.0-0.5) mg/dL AST 59 H (5-37) U/L ALT 34 (0-40) U/L Alkaline Phosphatase 99 (39-117) U/L Troponin I High Sens 8.3 D (<3.5-35.0) ng/L Total Protein 7.0 (6.5-8.0) g/dL Albumin 4.1 (3.5-5.0) g/dL COVID-19 (MAGY) (Negative) COVID-19 Clin Com 02/13/22 Range/Units 16:54 WBC (4.8-10.8) X10*3/uL RBC (4.60-5.80) X10*6/uL Hgb (14.0-18.0) g/dl Hct (42.0-52.0) % MCV (80.0-98.0) fL MCH (27.0-33.0) pg MCHC (31.0-36.0) g/dl RDW (11.0-16.0) % Plt Count (160-400) X10*3/uL MPV (9.4-12.4) fL Immature Gran % (Auto) (0.0-0.4) % Neut % (Auto) (45-73) % Lymph % (Auto) (20-40) % [place] % (Auto) (2-11) % Eos % (Auto) (0-4) % Baso % (Auto) (0-2) % Lymph # (Auto) (1.2-4.9) X10*3/uL [place] # (Auto) (0.1-1.2) X10*3/uL Eos # (Auto) (0.0-0.4) X10*3/uL Baso # (Auto) (0.0-0.2) X10*3/uL Abs Immat Gran (auto) (0.00-0.03) X10*3/uL Absolute Neuts (auto) (2.0-8.3) x10*3/uL Absolute Nucleated RBC (0.0-0.012) X10*3/uL Nucleated RBC % (auto) (0.0-0.2) /100WBC Sodium (135-145) mmol/L Potassium (3.3-5.1) mmol/L Chloride (96-108) mmol/L Carbon Dioxide (22-29) mmol/L Anion Gap (12-20) BUN (9-16) mg/dL Creatinine (0.5-1.4) mg/dL Estim Creat Clear Calc Estimated GFR Random Glucose (60-115) mg/dL Calcium (8.4-10.2) mg/dL Total Bilirubin (0.0-1.0) mg/dL Direct Bilirubin (0.0-0.5) mg/dL AST (5-37) U/L ALT (0-40) U/L Alkaline Phosphatase (39-117) U/L Troponin I High Sens (<3.5-35.0) ng/L Total Protein (6.5-8.0) g/dL Albumin (3.5-5.0) g/dL COVID-19 (MAGY) Negative (Negative) COVID-19 Clin Com See Note Imaging Data ribs/chest x-ray: Attestation: I personally reviewed and interpreted this imaging study as follows: Radiologist's impression: [address] [address] XRay Report Signed Patient: Ottoniel Salas MR#: [id number] : 1945 Acct:[id number] Age/Sex: 76 / M ADM Date: 02/13/22 Loc: .ED Attending Dr: Ordering Physician: Opal Melton NP Date of Service: 02/13/22 Procedure(s): XR ribs BI min 4V w CXR1V Accession Number(s): [id number] cc: Opal Melton [employer]~ EXAMINATION: XR RIBS, BILATERAL CLINICAL INFORMATION: Fall with pain COMPARISON: None TECHNIQUE: 2 views of the chest and 5 additional views of the right hemithorax as well as the left hemithorax FINDINGS: Cardiac silhouette within normal limits given supine position. No infiltrates, effusions or lung masses are seen surgical clips present at the GE junction. Kyphoplasty cement L1. Prior abdominal hernia repair. No rib fractures are seen. Mild degenerative changes are present in the shoulders, left greater than right. XR/XR ribs BI min 4V w CXR1V IMPRESSION: No rib fractures are seen. No acute intrathoracic disease. ? ct cervical spine: Attestation: I personally reviewed and interpreted this imaging study as follows: Radiologist's impression: CERVICAL SPINE: Alignment: Normal. No subluxation. Vertebra: No acute cervical spine fracture. No prevertebral soft tissue swelling. Mild superior endplate compression deformity of T1, present on prior chest CT 08/11/2021. Slight the interval height loss, exact acuity uncertain. Degenerative disc disease: Advanced disc degenerative change at C5-C6 and C6-C7 with moderate to severe disc height loss, endplate sclerosis and proliferative change. Multilevel bilateral facet arthrosis. Small 5 mm sclerotic bone island at C5. Other findings: Visualized lung apices are clear save for a 2 mm left apical calcified granuloma. No cervical lymphadenopathy or mass identified in the [id number]. CT scan - head: Attestation: I personally reviewed and interpreted this imaging study as follows: Radiologist's impression: FINDINGS: HEAD: No intra or extra-axial fluid collection, hemorrhage, or mass. No ventriculomegaly. No or herniation. Unchanged mild rightward midline shift. Basal cisterns are patent. Valentin-white matter differentiation is maintained. No territorial encephalomalacia. Proportional prominence of the ventricles and sulcal spaces is consistent with mild volume loss. Patchy periventricular and deep white matter hypoattenuation is consistent with mild small vessel ischemic changes. Soft tissue swelling overlying the right posterior scalp. No calvarial fracture. The mastoid air cells and visualized portions of the paranasal sinuses are well aerated. ECG Data Attestation: I personally reviewed and interpreted this ECG as follows: ECG interpretation date: 02/13/22 ECG interpretation time: 16:45 Interpretation: Sinus tachycardia with rate of 113, normal HI, normal QRS, normal QT Discharge Plan Discharge Clinical Impression: Chest wall contusion, Contusion of head, Cervical strain Patient Disposition: Home, Self-Care Instructions: Cervical Strain (ED), Contusion in Adults (ED), Rib Contusion (ED) Additional Instructions: CT scan of your brain shows no bleeding. Ct of your neck shows no signs of fracture. X-ray of your ribs shows no fracture. Change positions slowly Return for any severe headache, multiple episodes of vomiting, behavior change Prescriptions: No Action clotrimazole-betamethasone 1-0.05 % cream 1 appl topical BID 28 Days Qty: 45 0RF nystatin 100,000 unit/gram ointment 1 appl topical TID Qty: 30 0RF apixaban 5 mg tablet 5 mg PO BID 90 Days Qty: 180 1RF cyanocobalamin (vitamin B-12) 1,000 mcg/mL solution 1,000 mcg subcut .Qmonthly Qty: 3 3RF (DME) BD Safety-Jackie Detachable Needl 3 mL 25 gauge x 5/8 syringe See Rx Instructions .ROUTE .MEDSUPPLY Qty: 100 12RF Rx Instructions: As directed fexofenadine 180 mg tablet 180 mg PO DAILY PRN (Reason: allergy symptoms) Qty: 90 3RF baclofen 10 mg tablet 10 mg PO TID PRN (Reason: Spasms) Qty: 90 1RF Rx Instructions: Take 3 times a day with Food or Milk. cholecalciferol (vitamin D3) 1,250 mcg (50,000 unit) capsule 1,250 mcg PO QWEEK Qty: 12 0RF albuterol sulfate [ProAir HFA] 90 mcg/actuation HFA aerosol inhaler 2 puff inhalation Q6H PRN (Reason: shortness of breath or wheezing) Qty: 8.5 0RF omeprazole 40 mg capsule,delayed release(DR/EC) 40 mg PO DAILY 90 Days Qty: 90 3RF metoclopramide HCl [Reglan] 10 mg tablet 10 mg PO Q6H PRN (Reason: nausea and vomiting) Qty: 30 0RF diphenhydramine HCl [Benadryl] 25 mg capsule 25 mg PO TID PRN (Reason: nausea and vomiting) Qty: 14 0RF rnberjcpsb-mdzofgukeyded-vmyk 50-325-40 mg tablet 1 tab PO BEDTIME PRN (Reason: Migraine Headache) lorazepam 1 mg tablet 1 tab PO BID PRN (Reason: Anxiety) colchicine [Colcrys] 0.6 mg Tablet 0.6 mg PO BID PRN (Reason: Pain) venlafaxine 150 mg capsule,extended release 24hr 187.5 mg PO DAILY alfuzosin 10 mg tablet extended release 24 hr 10 mg PO QAM divalproex 500 mg tablet,delayed release (DR/EC) 500 mg PO QAM lactulose 20 gram/30 mL solution 20 g PO BID PRN (Reason: constipation) Qty: 3000 0RF clotrimazole 1 % cream 1 appl topical BID 28 Days Qty: 45 1RF Zeasorb AF 2 % powder 1 appl topical BID Qty: 71 1RF amlodipine 10 mg tablet 10 mg PO DAILY Qty: 90 2RF Advair HFA 45-21 mcg/actuation HFA aerosol inhaler 2 puff inhalation BID Qty: 12 1RF ferrous sulfate [Feosol] 325 mg (65 mg iron) tablet 325 mg PO DAILY Qty: 90 2RF melatonin 10 mg tablet 10 mg PO BEDTIME PRN Advair HFA 45-21 mcg/actuation HFA aerosol inhaler 2 puff inhalation BID hydrocortisone 2.5 % cream 1 appl topical BID PRN (Reason: skin irritation) 7 Days Qty: 30 0RF Referrals: Po,Thania Childs MD [Primary Care Provider] - 1 week
--- OUTSIDE RECORDS SUMMARY | 2022-02-13 19:14 | XMS_ITS | Continuity of Care Document ---
:1945 Author Organization [facility] Address [address] [place] [id number]- Care Team Providers Name Role Phone Po Thania FALK Primary Care Physician Encounter [facility] Date(s): 03/10/21 - 04/09/21 [facility] [address] [place] [id number] Allergies, Adverse Reactions, Alerts Substance Reaction Severity Status codeine GI upset Active aspirin Active hydrochlorothiazide Active Soma mood changes Active Topamax bilateral hand shaking Active nonsteroidal anti-inflammatory agents1 Active 1dumping syndrome Immunizations Not Given Vaccine Date Status Refusal Reason pneumococcal 13-valent vaccine 11/23/19 Not Given P atient Refuses Medications acetaminophen/butalbital/caffeine 325 mg-50 mg-40 mg oral tablet TAKE 1 TABLET BY MOUTH NEEDED AT BEDTIME Start Date: 03/03/20 Status: Orderedalfuzosin 10 mg oral tablet, extended release 1 tablet = 10 mg, By Mouth, Daily, # 30 tablet, 0 Refills, Maintenance, 12/19/19 12:50:00 EDT, ER Tablet Start Date: 12/19/19 Status: OrderedamLODIPine 10 mg oral tablet 5 mg, 0.5, tablet, By Mouth, Daily, Refills 0, Maintenance, 11/27/19 16:23:00 EDT Start Date: 11/27/19 Status: Orderedapixaban 5 mg oral tablet 1 tablet = 5 mg, By Mouth, 2 times a day, # 60 tablet, 4 Refills, Maintenance, 02/17/20 13:49:00 EDT, Tablet, [facility], 187, cm, 02/17/20 11:58:00 EDT, Height, 102, kg, 02/12/20 12:29:00 EDT, Dry Weight Start Date: 02/17/20 Status: Orderedascorbic acid 500 mg oral tablet 1 tablet = 500 mg, By Mouth, Daily, # 30 tablet, 0 Refills, Maintenance, 07/28/20 14:50:00 EDT, Tablet, Partial fill upon patient request if the prescription is for a schedule II opioid drug. Start Date: 07/28/20 Status: OrderedBlu-Emu Super Strength topical cream Topically, 0 Refills, Maintenance, 11/10/20 9:48:00 EDT, Partial fill upon patient request if the prescription is for a schedule II opioid drug. Start Date: 11/10/20 Status: OrderedColace Capsule 100 mg, 1, capsule, By Mouth, 2 times a day, Refills 0, Maintenance, 11/16/19 9:33:00 EDT Start Date: 11/16/19 Status: OrderedControlled Substance Agreement Controlled Substance Agreement, See Instructions, # 1 each, Refills 0, Tot. Refills 0, Maintenance, Updated On: 07/28/2020 Pharmacy I: [facility] DX: M54.4 mechanical low back pain, M53.3SI joint pain, 08/02/20 9:14:00 EDT, Supply Start Date: 08/02/20 Status: Orderedcyanocobalamin 1000 mcg/ml injectable solution INJECT 1000 MCG. SUBCUTANEOUSLY EVERY 4 WEEKS. Start Date: 05/12/20 Status: Ordereddivalproex sodium 500 mg oral enteric coated tablet TAKE ONE TABLET BY MOUTH EVERY EVENING Start Date: 12/26/20 Status: Orderedferrous sulfate 325 mg oral tablet 1 tablet = 325 mg, By Mouth, Daily, # 90 tablet, 0 Refills, Maintenance, 07/28/20 14:50:00 EDT, Tablet, Partial fill upon patient request if the prescription is for a schedule II opioid drug. Start Date: 07/28/20 Status: Orderedfexofenadine 180 mg oral tablet TAKE 1 TABLET BY MOUTH ONCE A DAY NEEDED.. Start Date: 03/03/20 Status: OrderedLORazepam 1 mg oral tablet TAKE ONE TABLET BY MOUTH TWICE A DAY AND TAKE HALF OF A TABLET TO 1 TABLET NEEDED Start Date: 01/12/21 Status: Orderedmeclizine 12.5 mg oral tablet TAKE TWO TABLETS BY MOUTH FOUR TIMES A DAY FOR 3 DAYS THEN 1 TO 2 TABLETS NEEDED NAUSEA/VERTIGO Start Date: 12/26/20 Status: Orderedomeprazole 40 mg oral enteric coated capsule 1 capsule = 40 mg, By Mouth, Daily, # 30 capsule, 0 Refills, Maintenance, 12/19/19 12:47:00 EDT, EC Capsule Start Date: 12/19/19 Status: Orderedsenna 187 mg oral tablet 1 tablet = 8.6 mg, By Mouth, Daily at bedtime, 0 Refills, Maintenance, 11/16/19 9:33:00 EDT, Tablet Start Date: 11/16/19 Status: OrderedtraZODone 50 mg oral tablet TAKE 1 TO 2 TABLETS BY MOUTH AT BEDTIME NEEDED Start Date: 01/12/21 Status: Orderedvenlafaxine 150 mg oral capsule, extended release TAKE ONE CAPSULE BY MOUTH EVERY DAY Start Date: 01/12/21 Status: Ordered Problem List Condition Effective Dates Status Health Status Informant Abdominal hernia, ventral(Confirmed) Active Hammer toes, acquired, of both Active feet(Confirmed) Anemia following surgery(Confirmed) Active Abdominal pain, central, Active infraumbilical(Confirmed) Headache, cervicogenic(Confirmed) Active Status post cholecystectomy(Confirmed) Active ; Delayed gastric emptying(Confirmed) Active Neuropathy, peripheral, 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(Confirmed) Drug interaction(Confirmed)1 Active Decreased range of motion of Active shoulders(Confirmed) Anxiety, generalized(Confirmed) Active History of gout(Confirmed) Active History of pulmonary embolism Active documented on CT angio 12/19/19(Confirmed) Status post hand surgery right TM 03/29/15 Active joint(Confirmed)2 Status post hand surgery; right TM 04/12/15 Active joint repining(Confirmed)3 Status post hammer toe correction, Active right(Confirmed) Status post hand surgery(Confirmed)4 07/03/16 Active History of vertigo(Confirmed) Active Hearing deficit(Confirmed) Active Hip pain, left(Confirmed) Active Hip pain, right(Confirmed) Active 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 Active 04/09/17(Confirmed)5 Status post total hip arthroplasty; 11/13/19 Active 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/19(Confirmed)6 Status post total knee replacement, 04/14/01 Active left(Confirmed) Hypertension(Confirmed) Active Hypothyroidism(Confirmed) Active Knee pain, right(Confirmed) Active Knee pain, left(Confirmed) Active Kyphoscoliosis with concavity to Active left(Confirmed) Limitation due to Active disability(Confirmed)7, 8, 9, 10, 11 Lumbar radiculopathy, chronic, S1 Active left(Confirmed) Mechanical low back pain(Confirmed) Active Meralgia paresthetica, Active bilateral(Confirmed) Myofascial pain, regional(Confirmed) Active Nausea(Confirmed) Active Neck pain, mechanical(Confirmed) Active History of transcranial magnetic Active stimulation(Confirmed) Depression, major, recurrent, in Active partial remission(Confirmed) Status post repair of hernia of Active ; abdominal wall(Confirmed)12 Biceps tendon rupture, Active proximal(Confirmed) Sacral back pain(Confirmed) Active Sacroiliac joint pain(Confirmed) Active Risk assessment: Adverse Childhood Active Experience(Confirmed)13 Obesity due to excess Active calories(Confirmed) Spinal stenosis of lumbar Active region(Confirmed) Heart murmur, systolic(Confirmed) Active Status post vagotomy(Confirmed) 1968 Active ; 1h/o myositis ; history of antidepressant and opioid co-treatment; h/o total CK >310.2On 03/29/2015 underwent debridement of failed TM joint arthroplasty right thumb; APL tendon transfer(partial tendon); palm for failed trapeziometacarpal joint arthroplasty right thumb by Fred Turk M.D. at [facility].3On 04/12/2015 underwent repining trapeziometacarpal joint reconstruction, right thumb status post revision trapeziometacarpal joint arthroplasty, right thumb, with loss of pin fixation by Fred Turk M.D. at [facility].4On 07/03/16 underwent revision failed arthroplasty, right thumb for failed revision of trapeziometacarpal joint arthroplasty by Fred Turk M.D. at [facility].5On04/09/17 underwent left hip replacement for left hip fracture by Jos Locke at [facility] 611/13/19 underwent revision hemiarthroplasty with conversion to total hip arthroplasty for left hip femoral component aseptic loosening by Elijah Stover MD at [id number] Oswestry Disability Index: 47% (21/45; severe disability ) on 03/03/20; updated [place] Back Pain Disability Scale score: 4 on 03/03/20.8Updated [place] Disability Index: 40% moderate disability and [place] Pain Disability Scale: 27 on 10/08/18.9Updated [place] Disability Index: 50% ( severe disability ) on 07/29/17; updated [place] Pain Disability Scale score: 52 on 07/29/17.10Updated [place] Disability Index: 36% moderate disability and [place] Pain Disability Scale: 24 on 08/25/2015.11Initial [place] Pain Disability Scale: 27 on 03/12/2012; initial [place] Disability Index: 54% ( severe disability ) on 03/12/2012.12multiple surgeries--first in [id number] score 6 on 07/29/17 Social History Social History Type Response Smoking Status Former smoker; Other: quit 3 5 years ago; entered on: 11/11/17 Sex Male
--- OUTSIDE RECORDS SUMMARY | 2022-02-13 19:14 | XMS_ITS | Continuity of Care Document ---
:1945 Author Organization [facility] Address [address] [place] [id number]- Care Team Providers Name Role Phone Po Thania FALK Primary Care Physician Encounter [facility] [place] Date(s): 11/21/19 - 11/27/[address] [address] [facility] Encounter Diagnosis Cellulitis (Final) - 11/21/19 Discharge Disposition: A-Transfer SNF Attending Physician: Hollie FALK, Jairo Admitting Physician: Shawna FALK, Yoshi Referring Physician: Not on Staff, Referring MD Allergies, Adverse Reactions, Alerts Substance Reaction Severity Status codeine GI upset Active aspirin Active hydrochlorothiazide Active Soma mood changes Active Topamax bilateral hand shaking Active nonsteroidal anti-inflammatory agents1 Active 1dumping syndrome Immunizations Not Given Vaccine Date Status Refusal Reason pneumococcal 13-valent vaccine 11/23/19 Not Given P atient Refuses Medications acetaminophen-HYDROcodone 325 mg-5 mg oral tablet 1 tablet, By Mouth, Every 6 hours, for 3 days, # 12 tablet, 0 Refills, Acute 11/30/19 16:35:00 EDT, 11/27/19 16:35:00 EDT, Tablet, Partial fill upon patient request Start Date: 11/27/19 Stop Date: 11/30/19 Status: OrderedamLODIPine 10 mg oral tablet 5 mg, 0.5, tablet, By Mouth, Daily, Refills 0, Maintenance, 11/27/19 16:23:00 EDT Start Date: 11/27/19 Status: OrderedAspercreme with Lidocaine 4% topical cream 1 applicator, Topically, 3 times a day, 0 Refills, Maintenance, 10/27/18 9:14:30 EDT Start Date: 10/27/18 Status: OrderedColace Capsule 100 mg, 1, capsule, By Mouth, 2 times a day, Refills 0, Maintenance, 11/16/19 9:33:00 EDT Start Date: 11/16/19 Status: Ordereddivalproex sodium 500 mg oral enteric coated tablet 1 tablet = 500 mg, By Mouth, Daily in AM, # 270 tablet, 0 Refills, Maintenance, 11/06/19 9:16:00 EDT, EC Tablet Start Date: 11/06/19 Status: Ordereddoxycycline monohydrate 100 mg oral tablet 1 tablet = 100 mg, By Mouth, 2 times a day, for 7 days, stop date - 12/03, # 14 tablet, 0 Refills, Acute 12/04/19 16:25:00 EDT, 11/27/19 16:25:00 EDT, Tablet Start Date: 11/27/19 Stop Date: 12/04/19 Status: OrderedHeparin Inj 1 mL = 5,000 units, Subcutaneous Injection, 3 times a day, 0 Refills, Maintenance, 11/27/19 16:40:00EDT, Injection Start Date: 11/27/19 Status: OrderedLORazepam 1 mg oral tablet 1 tablet = 1 mg, By Mouth, 2 times a day, PRN as needed for anxiety, 0 Refills, Maintenance, 07/29/17 9:34:33 EDT Start Date: 07/29/17 Status: Orderedmupirocin 2% topical ointment 1 application, Topically, 3 times a day, # 15 Gm, 0 Refills, Maintenance, 12/15/18 13:51:40 EDT, Ointment Start Date: 12/15/18 Status: Orderedpantoprazole 40 mg oral delayed release tablet = 40 mg, By Mouth, Daily in AM, 0 Refills, Maintenance, 11/16/19 9:33:00 EDT, EC Tablet Start Date: 11/16/19 Status: Orderedpromethazine 25 mg oral tablet 2 tablet = 50 mg, By Mouth, Daily, PRN as needed for nausea/vomiting, 0 Refills, Maintenance, 10/21/17 13:57:18 EDT Start Date: 10/21/17 Status: Orderedsenna 187 mg oral tablet 1 tablet = 8.6 mg, By Mouth, Daily at bedtime, 0 Refills, Maintenance, 11/16/19 9:33:00 EDT, Tablet Start Date: 11/16/19 Status: OrderedtraZODone 50 mg oral tablet TAKE 1 OR 2 TABLETS BY MOUTH AT BEDTIME NEEDED.. 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 Active 04/09/17(Confirmed)5 Status post total hip arthroplasty; 11/13/19 Active 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/19(Confirmed)6 Status post total knee replacement, 04/14/01 Active left(Confirmed) Hypertension(Confirmed) Active Hypothyroidism(Confirmed) Active Knee pain, right(Confirmed) Active Kyphoscoliosis with concavity to Active left(Confirmed) Limitation due to Active disability(Confirmed)7, 8, 9, 10 Lumbar radiculopathy, chronic, S1 Active left(Confirmed) Mechanical low back pain(Confirmed) Active Meralgia paresthetica, Active bilateral(Confirmed) Myofascial pain, regional(Confirmed) Active Nausea(Confirmed) Active Neck pain, mechanical(Confirmed) Active Leg pain, bilateral, proximal portion Active upper legs(Confirmed) Thumb pain, right, at TM Active joint(Confirmed) History of transcranial magnetic Active stimulation(Confirmed) Pes planus(Confirmed) Active Depression, major, recurrent, in Active partial remission(Confirmed) Status post repair of hernia of Active ; abdominal wall(Confirmed)11 Biceps tendon rupture, Active proximal(Confirmed) Sacral back pain(Confirmed) Active Sacroiliac joint pain(Confirmed) Active Risk assessment: Adverse Childhood Active Experience(Confirmed)12 Obesity due to excess Active calories(Confirmed) Spinal stenosis of lumbar Active region(Confirmed) Heart murmur, systolic(Confirmed) Active Thoracic back pain(Confirmed) Active Toe pain, second toe, right Active foot(Confirmed) Status post vagotomy(Confirmed) 1968 Active ; 1h/o myositis ; history of antidepressant and opioid co-treatment; h/o total CK >310.2On 03/29/2015 underwent debridement of failed TM joint arthroplasty right thumb; APL tendon transfer(partial tendon); palm for failed trapeziometacarpal joint arthroplasty right thumb by Fred Turk M.D. at [facility].3On 04/12/2015 underwent repining trapeziometacarpal joint reconstruction, right thumb status post revision trapeziometacarpal joint arthroplasty, right thumb, with loss of pin fixation by Fred Turk M.D. at [facility].4On 07/03/16 underwent revision failed arthroplasty, right thumb for failed revision of trapeziometacarpal joint arthroplasty by Fred Turk M.D. at [facility].5On/about 04/09/17 underwent left hip replacement for left hip fracture by Jos Locke at [facility] 6On 11/13/19 underwent revision hemiarthroplasty with conversion to total hip arthroplasty for left hip femoral component aseptic loosening by Elijah Stover MD at [id number] Oswestry Disability Index: 40% moderate disability and [place] Pain Disability Scale: 27 on 10/08/18.8Updated [place]estry Disability Index: 50% ( severe disability ) on 07/29/17; updated [place] Pain Disability Scale score: 52 on 07/29/17.9Updated [place] Disability Index: 36% moderate disability and [place] Disability Scale: 24 on 08/25/2015.10Initial [place] Pain Disability Scale: 27 on 03/12/2012; initial [place] Disability Index: 54% ( severe disability ) on 03/12/2012.11multiple surgeries--first in [id number] score 6 on 07/29/17 Results Orders for Microbiology Reports Name Date Blood Culture 11/21/19 Blood Culture #2 11/21/19 Microbiology Reports TEST:Blood Culture, Second Order STATUS:Auth (Verified) BODY SITE: SOURCE:Blood COLLECTED DATE/TIME:11/21/19 10:45 AMBlood Culture, Second Order SPECIMEN DESCRIPTION : BLOOD NO SITE SPECIAL REQUESTS : NONE CULTURE : NO GROWTH 5 DAYS. REPORT STATUS : FINAL 11/26/2019TEST:Blood Culture STATUS:Auth (Verified) BODY SITE: SOURCE:Blood COLLECTED DATE/TIME:11/21/19 10:39 AMBlood Culture SPECIMEN DESCRIPTION : BLOOD NO SITE SPECIAL REQUESTS : NONE CULTURE : NO GROWTH 5 DAYS. REPORT STATUS : FINAL 11/26/2019Radiology Reports Exam Date Time Procedure Performing Provider Status 11/21/19 12:39 PM XR Hip w/Pelvis 2-3 View Left Ariela Travis; Auth (Verified) Notes:(XR Hip w/Pelvis 2-3 View Left) Reason For Exam: With Pain;TraumaRESULT: XR Hip w/Pelvis 2-3 View Left XR Hip w/Pelvis 2-3 View Left Reason: Trauma; With Pain; Clinical Question(s): Fracture; Hx of Present Illness: Fall. COMPARISON: Multiple priors FINDINGS: Lucency in the cortex of the proximal femur, adjacent to the femoral prosthesis. The hardware appears intact. Degenerative changes in the RIGHT hip. Prostatic seeds are again noted. IMPRESSION: Lucency in the proximal femur adjacent to the femoral prosthesis suspicious for periprostatic fracture. WSN: [id number] Ordering Physician: [place] Alicia Dictated By: Nighat Calhoun MD, V Dictated Date/Time: 11/21/19 1:37 pm Reviewed By: Nighat Calhoun MD, V Signed By: Nigaht Calhoun MD, V Signed Date/Time: 11/21/19 1:37 pm Transcribed By: WONG Transcribed Date/Time: 11/21/19 1:33 pm Vital Signs Most recent to oldest 1 2 3 [Reference Range]: Height 182.8 cm 182.8 cm 182.8 cm (11/27/19 10:14 AM) (11/26/19 8:15 PM) (11/26/19 8: 28 AM) Weight 125.3 kg (11/21/19 4:16 PM) Oxygen Saturation [94-100 %] 97 % 91 % 96 % (11/27/19 10:14 AM) *L* (11/26/19 8:28 AM) (11/26/19 8:15 PM) Pulse Rate [55-90 bpm] 72 bpm 73 bpm 68 bpm (11/27/19 10:14 AM) (11/26/19 8:15 PM) (11/26/19 8: 28 AM) Body Mass Index [18.5-24.99] 37.5 *>HHI* (11/21/19 4:16 PM) Blood Pressure [90-138/55-84 108/69 mm Hg 113/53 mm Hg 137 /71 mm Hg mm Hg] (11/27/19 10:14 AM) (11/26/19 8:15 PM) (11/26/19 8: 28 AM) Respiratory Rate [16-30 18 br/min 18 br/min 16 br/mi n br/min] (11/27/19 4:02 PM) (11/27/19 11:26 AM) (11/27/19 11 :18 AM) Temperature [96.8-100.4 97.9 DegF 99.3 DegF 98.0 Deg F DegF] (11/27/19 10:14 AM) (11/26/19 8:15 PM) (11/26/19 8: 28 AM) Liters per Minute 3 L/min 3 L/min 3 L/min (11/21/19 7:00 PM) (11/21/19 4:18 PM) (11/21/19 4:1 6 PM) Mode of Delivery (Oxygen) Room air Room air Room a ir (11/27/19 10:14 AM) (11/26/19 8:15 PM) (11/26/19 8: 28 AM) Blood pressure sites Arm, left Arm, left Arm, left (11/27/19 10:14 AM) (11/26/19 8:15 PM) (11/26/19 8: 28 AM) Temperature Route Oral Oral Oral (11/27/19 10:14 AM) (11/26/19 8:15 PM) (11/26/19 8: 28 AM) Dry Weight 125.3 kg (11/21/19 4:16 PM) Social History Social History Type Response Smoking Status Former smoker; Other: quit 3 5 years ago; entered on: 11/11/17 Sex
--- OUTSIDE RECORDS SUMMARY | 2022-02-13 19:14 | XMS_ITS | Continuity of Care Document ---
:1945 Author Organization [facility] Address [address] [place] [id number]- Care Team Providers Name Role Phone Ayo Jeffrey MD Primary Care Physician [place] [facility] [place] - [facility] [address] [place] [id number] [facility] Attending Physician: Latrice Samuels MD, Trung Burnett Admitting Physician: Latrice Samuels MD, Trung Burnett Referring Physician: Thania Almaraz MD Allergies, Adverse Reactions, Alerts Substance Reaction Severity Status codeine GI upset Active aspirin Active hydrochlorothiazide Active Soma mood changes Active Topamax bilateral hand shaking Active nonsteroidal anti-inflammatory agents1 Active 1dumping syndrome Immunizations Not Given Vaccine Date Status Refusal Reason pneumococcal 13-valent vaccine 11/23/19 Not Given P atient Refuses Medications alfuzosin 10 mg oral tablet, extended release 1 [...] mg, By Mouth, 2 times a day, to continue for 6 months from 12/28/2019, # 60 tablet, 0 Refills, Maintenance, 12/28/19 21:00:00 EDT, Tablet Start Date: 12/28/19 Status: OrderedAspercreme with Lidocaine 4% topical cream 1 applicator, Topically, 3 times a day, 0 Refills, Maintenance, 10/27/18 9:14:30 EDT Start Date: 10/27/18 Status: Orderedbaclofen 10 mg oral tablet 10 mg, 1, tablet, By Mouth, 3 times a day, PRN, Refills 0, Maintenance, Spasm, 12/14/19 9:08:00 EDT Start Date: 12/14/19 Status: OrderedColace Capsule 100 mg, 1, capsule, By Mouth, 2 times a day, Refills 0, Maintenance, 11/16/19 9:33:00 EDT Start Date: 11/16/19 Status: Orderedmupirocin 2% topical ointment 1 application, Topically, 3 times a day, # 15 Gm, 0 Refills, Maintenance, 12/15/18 13:51:40 EDT, Ointment Start Date: 12/15/18 Status: Orderedomeprazole 40 mg oral enteric coated capsule 1 capsule = 40 mg, By Mouth, Daily, # 30 capsule, 0 Refills, Maintenance, 12/19/19 12:47:00 EDT, EC Capsule Start Date: 12/19/19 Status: Orderedpromethazine 25 mg oral tablet 2 [...] both Active feet(Confirmed) Anemia following surgery(Confirmed) Active Headache, cervicogenic(Confirmed) Active Status post cholecystectomy(Confirmed) Active [...] hand surgery(Confirmed)4 07/03/16 Active Hearing deficit(Confirmed) Active 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 [...] Active History of transcranial magnetic Active stimulation(Confirmed) Pulmonary embolism documented on CT Active angio 12/19/19(Confirmed) Depression, major, recurrent, in Active partial remission(Confirmed) Status post repair of hernia of Active ; abdominal wall(Confirmed)11 Biceps tendon rupture, Active proximal(Confirmed) Sacral back pain(Confirmed) Active Sacroiliac joint pain(Confirmed) Active Risk assessment: Adverse Childhood Active Experience(Confirmed)12 Obesity due to excess Active calories(Confirmed) Spinal stenosis of lumbar Active region(Confirmed) Heart murmur, systolic(Confirmed) Active Thoracic back pain(Confirmed) Active Status post vagotomy(Confirmed) 1968 Active ; COVID-19 virus detected Active 11/16/19(Confirmed) 1h/o myositis ; history of antidepressant and opioid co-treatment; h/o total CK >310.2On 03/29/2015 underwent debridement of failed TM joint arthroplasty right thumb; APL tendon transfer(partial tendon); palm for failed trapeziometacarpal joint arthroplasty right thumb by Fred Turk M.D. at [facility].3On 04/12/2015 underwent repining trapeziometacarpal joint reconstruction, right thumb status post revision trapeziometacarpal joint arthroplasty, right thumb, with loss of pin fixation by Fred Turk M.D. at [facility].4On 07/03/16 underwent revision failed arthroplasty, right thumb for failed revision of trapeziometacarpal joint arthroplasty by Fred Turk M.D. at [facility].5Onabout 04/09/17 underwent left hip replacement for left hip fracture by Jos Locke at [facility] 6On 11/13/19 underwent revision hemiarthroplasty with conversion to total hip arthroplasty for left hip femoral component aseptic loosening by Elijah Stover MD at [id number] Oswestry Disability Index: 40% moderate disability and [place] Back Pain Disability Scale: 27 on 10/08/18.8Updated Oswestry Disability Index: 50% ( severe disability ) on 07/29/17; updated [place] Pain Disability Scale score: 52 on 07/29/17.9Updated [place]estry Disability Index: 36% moderate disability and [place] Pain Disability Scale: 24 on 08/25/2015.10Initial [place] Pain Disability Scale: 27 on 03/12/2012; initial Oswestry Disability Index: 54% ( severe disability ) on 03/12/2012.11multiple surgeries--first in [id number] score 6 on 07/29/17 Social History Social History Type Response Smoking Status Former smoker; Other: quit 3 5 years ago; entered on: 11/11/17 Sex Male
--- OUTSIDE RECORDS SUMMARY | 2022-02-13 19:14 | XMS_ITS | Continuity of Care Document ---
:1945 Author Organization [facility] Address [address] [place] [address]- Care Team Providers Name Role Phone Po Thania FALK Primary Care Physician Encounter [facility] Date(s): 07/19/20 - 08/18/20 [facility] [address] [place] [id number] Allergies, Adverse Reactions, Alerts Substance Reaction Severity [...] II opioid drug. Start Date: 07/28/20 Status: OrderedAspercreme with Lidocaine 4% topical cream 1 applicator, Topically, 3 times a day, 0 Refills, Maintenance, 10/27/18 9:14:30 EDT Start Date: 10/27/18 Status: OrderedAtivan 1 mg oral tablet 1 tablet = 1 mg, By Mouth, 2 times a day, PRN as needed for anxiety, Pt can have partial fills on request FAWAD [id number] #[id number], # 25 tablet, 0 Refills, Maintenance, 02/17/20 14:00:00 EDT, Tablet, [facility] 187, cm, 02/17/20 11:... Start Date: 02/17/20 Status: OrderedColace Capsule 100 mg, 1, capsule, By Mouth, 2 times a day, Refills 0, Maintenance, 11/16/19 9:33:00 EDT Start Date: 11/16/19 Status: OrderedControlled Substance Agreement Controlled Substance Agreement, See Instructions, # 1 each, Refills 0, Tot. Refills 0, Maintenance, Updated On: 07/28/2020 Pharmacy I: [facility] DX: M54.4 mechanical low back pain, M53.3SI joint pain, 08/02/20 9:14:00 EDT, Supply Start Date: 08/02/20 Status: Orderedcyanocobalamin 1000 mcg/ml injectable solution INJECT 1000 MCG. SUBCUTANEOUSLY EVERY 4 WEEKS. Start Date: 05/12/20 Status: Ordereddivalproex sodium 250 mg oral enteric coated tablet = 250 mg, By Mouth, 2 times a day, # 60 tablet, 2 Refills, Maintenance, 02/17/20 13:50:00 EDT, Tablet, [facility] 187, cm, 02/17/20 11:58:00 EDT, Height, 102, kg, 02/12/20 12:29:00 EDT, Dry Weight Start Date: 02/17/20 Status: Orderedergocalciferol 62274 iu oral capsule See Instructions, Start from 02/24/2020- 1 capsule By Mouth Every 7 days x 7 weeks, then 1 capsule by mouth once a month, # 10 capsule, Refills 0, Tot. Refills 0, Maintenance, 02/24/20 9:00:00 EDT, Instructions Replace Required Details, Route to Pharm... Start Date: 02/24/20 Status: Orderedferrous sulfate 325 mg oral tablet 1 tablet = 325 mg, By Mouth, Daily, # 90 tablet, 0 Refills, Maintenance, 07/28/20 14:50:00 EDT, Tablet, Partial fill upon patient request if the prescription is for a schedule II opioid drug. Start Date: 07/28/20 Status: Orderedfexofenadine 180 mg oral tablet TAKE 1 TABLET BY MOUTH ONCE A DAY NEEDED.. Start Date: 03/03/20 Status: Orderedmeclizine 12.5 mg oral tablet See Instructions, 2 tablet by mouth qid for 3 days, then 1-2 tabs as needed for vertigo/nausea, # 100 tablet, 1 Refills, Maintenance, 07/28/20 17:23:00 EDT, [facility], Partial fill upon patient request if the prescription is for a schedu... Start Date: 07/28/20 Status: Orderedmorphine 15 mg oral tablet, immediate release See Instructions, 0.5 tab by mouth up to 6 times a day as needed for sacral pain. Stop hydrocodone/APAP, # 21 tablet, 0 Refills, Maintenance, 07/28/20 17:29:00 EDT, [facility], Partialfill upon patient request if the prescription is for... Start Date: 07/28/20 Status: OrderednalOXONE Once, 0 Refills, Maintenance, 03/03/20 14:34:00 EST Start Date: 03/03/20 Status: OrderedNorco 325 mg-5 mg oral tablet 1 tablet, By Mouth, Every 4 hours, PRN pain, MAX 6 tabs/day, # 168 tablet, 0 Refills, Maintenance, 08/15/20 13:02:00 EDT, Tablet, [facility], Partial fill upon patient request. Dr Mills covering for Dr Pollard. Thank you, 1 tablet By Mo... Start Date: 08/15/20 Status: Orderedomeprazole 40 mg oral enteric coated capsule 1 capsule = 40 mg, By Mouth, Daily, # 30 capsule, 0 Refills, Maintenance, 12/19/19 12:47:00 EDT, EC Capsule Start Date: 12/19/19 Status: Orderedpromethazine 25 mg oral tablet TAKE ONE TABLET BY MOUTH EVERY 6 HOURS NEEDED FOR NAUSEA Start Date: 03/03/20 Status: Orderedsenna 187 mg oral tablet 1 tablet = 8.6 mg, By Mouth, Daily at bedtime, 0 Refills, Maintenance, 11/16/19 9:33:00 EDT, Tablet Start Date: 11/16/19 Status: OrderedtraZODone 50 mg oral tablet 50 mg, 1, tablet, By Mouth, Daily at bedtime, # 30 tablet, Refills 0, Tot. Refills 0, Maintenance, 02/17/20 13:50:00 EDT, Route to Pharmacy Electronically, [facility], 187, cm, 02/17/20 11:58:00 EDT, Height, 102, kg, 02/12/20 12:29:00 EDT... Start Date: 02/17/20 Status: Orderedvenlafaxine 150 mg oral capsule, extended release 150 mg, 1, capsule, By Mouth, Daily, # 30 capsule, Refills 0, Tot. Refills 0, Maintenance, 02/17/20 13:50:00 EDT, Route to Pharmacy Electronically, [facility], 187, cm, 02/17/20 11:58:00 EDT, Height, 102, kg, 02/12/20 12:29:00 EDT, Dry We... Start Date: 02/17/20 Status: Ordered Problem List Condition Effective Dates [...] right thumb by Fred Turk M.D. at [facility].3On 04/12/2015 underwent repining trapeziometacarpal joint reconstruction, right thumb status post revision trapeziometacarpal joint arthroplasty, right thumb, with loss of pin fixation by Fred Turk M.D. 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 by Elijah Stover MD at [id number] Oswestry Disability Index: 47% (21/45; severe disability ) on 03/03/20; updated [place] Back Pain Disability Scale score: 4 on 03/03/20.8Updated Oswestry Disability Index: 40% moderate disability and [place] Back Pain Disability Scale: 27 on 10/08/18.9Updated Oswestry Disability Index: 50% ( severe disability ) on 07/29/17; updated [place] Back Pain Disability Scale score: 52 on 07/29/17.10Updated Oswestry Disability Index: 36% moderate disability and [place] Back Pain Disability Scale: 24 on 08/25/2015.11Initial [place] Back Pain Disability Scale: 27 on 03/12/2012; initial Oswestry Disability Index: 54% ( severe disability ) on 03/12/2012.12multiple surgeries--first in [id number] score 6 on 07/29/17 Social History Social History Type Response Smoking Status Former smoker; Other: quit 3 5 years ago; entered on: 11/11/17 Sex Male
--- OUTSIDE RECORDS SUMMARY | 2022-02-13 19:15 | XMS_ITS | Continuity of Care Document ---
:1945 Author Organization [facility] Address [address] [place] [address]- Care Team Providers Name Role Phone Thania Almaraz MD Primary Care Physician Encounter [facility] Date(s): 09/28/20 - 11/24/20 [facility] [address] [place] [address] Attending Physician: Stephanie Alanis MD Admitting Physician: Stephanie Alanis MD Referring Physician: Thania Almaraz MD Allergies, Adverse [...] II opioid drug. Start Date: 07/28/20 Status: OrderedAtivan 1 mg oral tablet 1 tablet = 1 mg, By Mouth, 2 times a day, PRN as needed for anxiety, Pt can have partial fills on request FAWAD [id number] #[id number], # 25 tablet, 0 Refills, Maintenance, 02/17/20 14:00:00 EDT, Tablet, [facility], 187, cm, 02/17/20 11:... Start Date: 02/17/20 Status: OrderedBelbuca 300 mcg buccal film 1 film = 300 mcg, By Mouth, Every 12 hours, place film on inside of cheek and avoid food or drink until completely dissolved, # 28 film, 0 Refills, Maintenance, 11/23/20 17:37:00 EDT, Hydrocodone/APAP will be tapered down as Belbuca reaches steady state. Start Date: 11/23/20 Status: OrderedBlu-Emu Super Strength topical cream Topically, [...] On: 07/28/2020 Pharmacy I: [facility] DX: M54.4 mechanical low back pain, M53.3SI joint pain, 08/02/20 9:14:00 EDT, Supply Start Date: 08/02/20 Status: Orderedcyanocobalamin 1000 mcg/ml injectable solution INJECT 1000 MCG. SUBCUTANEOUSLY EVERY 4 WEEKS. Start Date: 05/12/20 Status: Ordereddivalproex sodium 250 mg oral enteric coated tablet = 250 mg, By Mouth, 2 times a day, # 60 tablet, 2 Refills, Maintenance, 02/17/20 13:50:00 EDT, Tablet, [facility], 187, cm, 02/17/20 11:58:00 EDT, Height, 102, kg, 02/12/20 12:29:00 EDT, Dry Weight Start Date: 02/17/20 Status: Ordereddronabinol 2.5 mg oral capsule See Instructions, 1 cap po 1 or 2 times/day PRN nausea/vomiting., # 30 capsule, 0 Refills, Maintenance, 09/19/20 16:59:00 EDT, [facility], May pay out of pocket if not covered by insurance., 187, cm, 08/31/20 10:21:00 EDT, Height, 102, kg... Start Date: 09/19/20 Status: Orderedferrous sulfate 325 mg oral tablet 1 tablet = 325 mg, By Mouth, Daily, # 90 tablet, 0 Refills, Maintenance, 07/28/20 14:50:00 EDT, Tablet, Partial fill upon patient request if the prescription is for a schedule II opioid drug. Start Date: 07/28/20 Status: Orderedfexofenadine 180 mg oral tablet TAKE 1 TABLET BY MOUTH ONCE A DAY NEEDED.. Start Date: 03/03/20 Status: Orderedmelatonin 5 mg oral capsule 1 capsule = 5 mg, By Mouth, Daily at bedtime, 0 Refills, Maintenance, 11/10/20 9:46:00 EDT, Partial fill upon patient request if the prescription is for a schedule II opioid drug. Start Date: 11/10/20 Status: Orderedomeprazole 40 mg oral enteric coated [...] 02/17/20 13:50:00 EDT, Route to Pharmacy Electronically, [facility], 187, cm, 02/17/20 11:58:00 EDT, Height, 102, kg, 02/12/20 12:29:00 EDT... Start Date: 02/17/20 Status: Orderedvenlafaxine 150 mg oral capsule, extended release 150 mg, 1, capsule, By Mouth, Daily, # 30 capsule, Refills 0, Tot. Refills 0, Maintenance, 02/17/20 13:50:00 EDT, Route to Pharmacy Electronically, [facility], 187, cm, 02/17/20 11:58:00 EDT, [...] right thumb by Fred Turk M.D. at [facility].3On 04/12/2015 underwent repining trapeziometacarpal joint reconstruction, right thumb status post revision trapeziometacarpal joint arthroplasty, right thumb, with loss of pin fixation by Fred Turk M.D. 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 by Elijah Stover MD at [id number] Oswestry Disability Index: 47% (21/45; severe disability ) on 03/03/20; updated [place] Back Pain Disability Scale score: 4 on 03/03/20.8Updated Oswestry Disability Index: 40% moderate disability and [place] Back Pain Disability Scale: 27 on 10/08/18.9Updated Oswestry Disability Index: 50% ( severe disability ) on 07/29/17; updated [place] Back Pain Disability Scale score: 52 on 07/29/17.10Updated Oswestry Disability Index: 36% moderate disability and [place] Back Pain Disability Scale: 24 on 08/25/2015.11Initial [place] Back Pain Disability Scale: 27 on 03/12/2012; initial Oswestry Disability Index: 54% ( severe disability ) on 03/12/2012.12multiple surgeries--first in [id number] score 6 on 07/29/17 Social History Social History Type Response Smoking Status Former smoker; Other: quit 3 5 years ago; entered on: 11/11/17 Sex Male
--- OUTSIDE RECORDS SUMMARY | 2022-02-13 19:15 | XMS_ITS | Continuity of Care Document ---
:1945 Author Organization [facility] Address [address] [place] [address]- Care Team Providers Name Role Phone Po Thania FALK Primary Care Physician [id number] Date(s): 09/20/21 - 10/20/[facility] [address] [place], [place] [id number] Allergies, Adverse Reactions, Alerts Substance Reaction Severity [...] On: 07/28/2020 Pharmacy I: [facility] DX: M54.4 mechanical low back pain, [...] TABLETS NEEDED NAUSEA/VERTIGO Start Date: 12/26/20 Status: OrderedMelatonin 5 mg sublingual tablet 0 Refills, Maintenance, 06/15/21 15:29:00 EST, Partial fill upon patient request if the prescriptionis for a schedule II opioid drug. Start Date: 06/15/21 Status: Orderedomeprazole 40 mg oral enteric coated [...] MOUTH EVERY DAY Start Date: 01/12/21 Status: Orderedvenlafaxine 37.5 mg oral capsule, extended release 0 Refills, Maintenance, 06/15/21 15:31:00 EST, Partial fill upon patient request if the prescriptionis for a schedule II opioid drug. Start Date: 06/15/21 Status: Ordered Problem List Condition Effective Dates [...] right thumb by Fred Turk M.D. at [facility].3On 04/12/2015 underwent repining trapeziometacarpal joint reconstruction, right thumb status post revision trapeziometacarpal joint arthroplasty, right thumb, with loss of pin fixation by Fred Turk M.D. 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 by Elijah Stover MD at [id number] Oswestry Disability Index: 47% (21/45; severe disability ) on 03/03/20; updated [place] Back Pain Disability Scale score: 4 on 03/03/20.8Updated Oswestry Disability Index: 40% moderate disability and [place] Back Pain Disability Scale: 27 on 10/08/18.9Updated Oswestry Disability Index: 50% ( severe disability ) on 07/29/17; updated [place] Pain Disability Scale score: 52 on 07/29/17.10Updated Oswestry Disability Index: 36% moderate disability and [place] Back Pain Disability Scale: 24 on 08/25/2015.11Initial [place] Back Pain Disability Scale: 27 on 03/12/2012; initial Oswestry Disability Index: 54% ( severe disability ) on 03/12/2012.12multiple surgeries--first in [id number] score 6 on 07/29/17 Social History Social History Type Response Smoking Status Former smoker; Other: quit 3 5 years ago; entered on: 11/11/17 Sex Male
--- OUTSIDE RECORDS SUMMARY | 2022-02-13 19:15 | XMS_ITS | Continuity of Care Document ---
:1945 Author Organization [facility] Address [address] [place] [phone]- Care Team Providers Name Role Phone Thania Almaraz MD Primary Care Physician En[facility] [id number] Date(s): 08/03/21 - 11/10/21 [facility] [address] [place] [id number] Attending Physician: Jane FALK, Dina Admitting Physician: Dina Lara MD Allergies, Adverse Reactions, Alerts Substance Reaction [...] On: 07/28/2020 Pharmacy I: [facility] DX: M54.4 mechanical low back pain, [...] right thumb by Fred Turk M.D. at [facility].3On 04/12/2015 underwent repining trapeziometacarpal joint reconstruction, right thumb status post revision trapeziometacarpal joint arthroplasty, right thumb, with loss of pin fixation by Fred Turk M.D. at [facility].4On 07/03/16 underwent revision failed arthroplasty, right thumb for failed revision of trapeziometacarpal joint arthroplasty by Fred Turk M.D. 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
--- OUTSIDE RECORDS SUMMARY | 2022-02-13 19:15 | XMS_ITS | Continuity of Care Document ---
:1945 Author Organization [facility] Address [address] [place] [address]- Care Team Providers Name Role Phone Po Thania FALK Primary Care Physician [place] [facility] [place](s): 07/28/20 - 08/27/20 [facility] [address] [place] [id number] Allergies, Adverse Reactions, Alerts Substance [...] can have partial fills on request FAWAD [id number] #[id number], # 25 tablet, 0 Refills, Maintenance, 02/17/20 14:00:00 EDT, Tablet, [facility] 187, cm, 02/17/20 11:... Start Date: 02/17/20 Status: OrderedColace Capsule 100 mg, 1, capsule, By Mouth, 2 times a day, Refills 0, Maintenance, 11/16/19 9:33:00 EDT Start Date: 11/16/19 Status: OrderedControlled Substance Agreement Controlled Substance Agreement, See Instructions, # 1 each, Refills 0, Tot. Refills 0, Maintenance, Updated On: 07/28/2020 Pharmacy I: [facility] DX: M54.4 mechanical low back pain, M53.3SI joint pain, 08/02/20 9:14:00 EDT, Supply Start Date: 08/02/20 Status: Orderedcyanocobalamin 1000 mcg/ml injectable solution INJECT 1000 MCG. SUBCUTANEOUSLY EVERY 4 WEEKS. Start Date: 05/12/20 Status: Ordereddivalproex sodium 250 mg oral enteric coated tablet = 250 mg, By Mouth, 2 times a day, # 60 tablet, 2 Refills, Maintenance, 02/17/20 13:50:00 EDT, Tablet, [facility] 187, cm, 02/17/20 11:58:00 EDT, Height, 102, kg, 02/12/20 12:29:00 EDT, Dry Weight Start Date: 02/17/20 Status: Orderedergocalciferol 09895 iu oral capsule See Instructions, Start from [...] 02/17/20 13:50:00 EDT, Route to Pharmacy Electronically, [facility], 187, cm, 02/17/20 11:58:00 EDT, Height, 102, kg, 02/12/20 12:29:00 EDT... Start Date: 02/17/20 Status: Orderedvenlafaxine 150 mg oral capsule, extended release 150 mg, 1, capsule, By Mouth, Daily, # 30 capsule, Refills 0, Tot. Refills 0, Maintenance, 02/17/20 13:50:00 EDT, Route to Pharmacy Electronically, [facility], 187, cm, 02/17/20 11:58:00 EDT, [...] right thumb by Fred Turk M.D. at [facility].3On 04/12/2015 underwent repining trapeziometacarpal joint reconstruction, right thumb status post revision trapeziometacarpal joint arthroplasty, right thumb, with loss of pin fixation by Fred Turk M.D. at [facility].4On 07/03/16 underwent revision failed arthroplasty, right thumb for failed revision of trapeziometacarpal joint arthroplasty by Fred Turk M.D. 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
--- OUTSIDE RECORDS SUMMARY | 2022-02-13 19:15 | XMS_ITS | Continuity of Care Document ---
:1945 Author Organization [facility] Address [address] [place] [address]- Care Team Providers Name Role Phone Ayo Jeffrey MD Primary Care Physician Encounter [facility] Date(s): 12/21/19 - 01/20/20 [facility] [address] [place] [id number]- [facility] Attending Physician: Eva Nugent Allergies, Adverse Reactions, Alerts Substance Reaction Severity Status codeine GI upset Active aspirin Active Soma mood changes Active Topamax bilateral hand shaking Active hydrochlorothiazide Active nonsteroidal anti-inflammatory agents1 Active 1dumping syndrome [...] right thumb by Fred Turk M.D. at [facility].3On 04/12/2015 underwent repining trapeziometacarpal joint reconstruction, right thumb status post revision trapeziometacarpal joint arthroplasty, right thumb, with loss of pin fixation by Fred Turk M.D. at [facility].4On 07/03/16 underwent revision failed arthroplasty, right thumb for failed revision of trapeziometacarpal joint arthroplasty by Fred Turk M.D. 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 by Elijah Stover MD at [id number] Oswestry Disability Index: 40% moderate disability and [place] Back Pain Disability Scale: 27 on 10/08/18.8Updated Oswestry Disability Index: 50% ( severe disability ) on 07/29/17; updated [place] Pain Disability Scale score: 52 on 07/29/17.9Updated Oswestry Disability Index: 36% moderate disability and [place] Back Pain Disability Scale: 24 on 08/25/2015.10Initial [place] Back Pain Disability Scale: 27 on 03/12/2012; initial Oswestry Disability Index: 54% ( severe disability ) on 03/12/2012.11multiple surgeries--first in [id number] score 6 on 07/29/17 Social History Social History Type Response Smoking Status Former smoker; Other: quit 3 5 years ago; entered on: 11/11/17 Sex Male
--- OUTSIDE RECORDS SUMMARY | 2022-02-13 19:15 | XMS_ITS | Continuity of Care Document ---
:1945 Author Organization [facility] Address [address] [place] [id number]- Care Team Providers Name Role Phone Po Thania FALK Primary Care Physician Encounter [facility] [place] Date(s): 08/19/20 - 09/18/20 [facility] [address] [place] [id number] Allergies, Adverse Reactions, Alerts Substance Reaction Severity [...] can have partial fills on request [facility] [id number] #[id number], # 25 tablet, 0 Refills, Maintenance, 02/17/20 14:00:00 EDT, Tablet, [facility] 187, cm, 02/17/20 11:... Start Date: 02/17/20 Status: OrderedColace Capsule 100 mg, 1, capsule, By Mouth, 2 times a day, Refills 0, Maintenance, 11/16/19 9:33:00 EDT Start Date: 11/16/19 Status: OrderedControlled Substance Agreement Controlled Substance Agreement, See Instructions, # 1 each, Refills 0, Tot. Refills 0, Maintenance, Updated On: 07/28/2020 Pharmacy I: [facility] DX: M54.4 mechanical low back pain, M53.3SI joint pain, 08/02/20 9:14:00 EDT, Supply Start Date: 08/02/20 Status: Orderedcyanocobalamin 1000 mcg/ml injectable solution INJECT 1000 MCG. SUBCUTANEOUSLY EVERY 4 WEEKS. Start Date: 05/12/20 Status: Ordereddivalproex sodium 250 mg oral enteric coated tablet = 250 mg, By Mouth, 2 times a day, # 60 tablet, 2 Refills, Maintenance, 02/17/20 13:50:00 EDT, Tablet, [facility] 187, cm, 02/17/20 11:58:00 EDT, Height, 102, kg, 02/12/20 12:29:00 EDT, Dry Weight Start Date: 02/17/20 Status: Ordereddronabinol 2.5 mg oral capsule See Instructions, 1 capsule By Mouth daily for 5 days, then 1 cap bid for 5 days, # 15 capsule, 0 Refills, Maintenance, 09/13/20 17:49:00 EDT, [facility], May pay out of pocket if not covered by insurance., 187, cm, 08/31/20 10:21:00 EDT,... Start Date: 09/13/20 Status: Orderedergocalciferol 27279 iu oral capsule See Instructions, Start from 02/24/2020- 1 capsule By Mouth Every 7 days x 7 weeks, then 1 capsule by mouth once a month, # 10 capsule, Refills 0, Tot. Refills 0, Maintenance, 02/24/20 9:00:00 EDT, Instructions Replace Required Details, Route to Pharm... Start Date: 02/24/20 Status: Orderedfentanyl 12 mcg/hr transdermal film, extended release 1 film, Topically, Every 48 hours, # 5 film, 0 Refills, Maintenance, 09/02/20 13:34:00 EDT, [facility], Partial fill upon patient request, 187, cm, 08/31/20 10:21:00 EDT, Height, 102, kg, 02/12/20 12:29:00 EDT, Dry Weight Start Date: 09/02/20 Status: Orderedfentanyl 12 mcg/hr transdermal film, extended release PLACE 1 PATCH ONTO SKIN EVERY 48 HOURS (REFLECTS FREQUENCY CHANGE) Start Date: 08/31/20 Status: Orderedferrous sulfate 325 mg oral tablet [...] Refills, Maintenance, 07/28/20 17:23:00 EDT, [facility], Partial fill upon patient request if the prescription is for a schedu... Start Date: 07/28/20 Status: OrderednalOXONE Once, 0 Refills, Maintenance, 03/03/20 14:34:00 EST Start Date: 03/03/20 Status: OrderedNorco 325 mg-5 mg oral tablet 1-2 tablet, By Mouth, Every 4 hours, PRN pain, MAX 9 tabs/day. 7 day supply, # 63 tablet, 0 Refills,Maintenance, 09/12/20 11:05:00 EDT, Tablet, [facility], Partial fill upon patient request. Previous rx was shorted #7 tabs., 1-2 tablet B... Start Date: 09/12/20 Status: Orderedomeprazole 40 mg oral enteric coated capsule 1 capsule = 40 mg, By Mouth, Daily, # 30 capsule, 0 Refills, Maintenance, 12/19/19 12:47:00 EDT, EC Capsule Start Date: 12/19/19 Status: OrderedOndansetron By Mouth, PRN as needed for nausea/vomiting, 0 Refills, Maintenance, 08/31/20 10:15:00 EDT, Partial fill upon patient request if the prescription is for a schedule II opioid drug. Start Date: 08/31/20 Status: Orderedsenna 187 mg oral tablet 1 tablet = 8.6 mg, By Mouth, Daily at bedtime, 0 Refills, Maintenance, 11/16/19 9:33:00 EDT, Tablet Start Date: 11/16/19 Status: OrderedtraZODone 50 mg oral tablet 50 mg, 1, tablet, By Mouth, Daily at bedtime, # 30 tablet, Refills 0, Tot. Refills 0, Maintenance, 02/17/20 13:50:00 EDT, Route to Pharmacy Electronically, [facility], 187, cm, 02/17/20 11:58:00 EDT, Height, 102, kg, 02/12/20 12:29:00 EDT... Start Date: 02/17/20 Status: Orderedvenlafaxine 150 mg oral capsule, extended release 150 mg, 1, capsule, By Mouth, Daily, # 30 capsule, Refills 0, Tot. Refills 0, Maintenance, 02/17/20 13:50:00 EDT, Route to Pharmacy Electronically, [facility], 187, cm, [...] right thumb by Fred Turk M.D. at [facility].3On 04/12/2015 underwent repining trapeziometacarpal joint reconstruction, right thumb status post revision trapeziometacarpal joint arthroplasty, right thumb, with loss of pin fixation by Fred Turk M.D. 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 by Elijah Stover MD at [id number] Oswestry Disability Index: 47% (21/45; severe disability ) on 03/03/20; updated [place] Back Pain Disability Scale score: 4 on 03/03/20.8Updated Oswestry Disability Index: 40% moderate disability and [place] Back Pain Disability Scale: 27 on 10/08/18.9Updated Oswestry Disability Index: 50% ( severe disability ) on 07/29/17; updated [place] Back Pain Disability Scale score: 52 on 07/29/17.10Updated Oswestry Disability Index: 36% moderate disability and [place] Back Pain Disability Scale: 24 on 08/25/2015.11Initial [place] Back Pain Disability Scale: 27 on 03/12/2012; initial Oswestry Disability Index: 54% ( severe disability ) on 03/12/2012.12multiple surgeries--first in [id number] score 6 on 07/29/17 Social History Social History Type Response Smoking Status Former smoker; Other: quit 3 5 years ago; entered on: 11/11/17 Sex Male
--- OUTSIDE RECORDS SUMMARY | 2022-02-13 19:15 | XMS_ITS | Continuity of Care Document ---
:1945 Author Organization [facility] Address [address] [place] [address]- Care Team Providers Name Role Phone Po Thania FALK Primary Care Physician Encounter [facility] [place] Date(s): 05/13/20 - 06/12/20 [facility] [address] [place] [id number] Allergies, Adverse Reactions, Alerts Substance [...] EDT, Dry Weight Start Date: 02/17/20 Status: OrderedAspercreme with Lidocaine 4% topical cream 1 applicator, Topically, 3 times a day, 0 Refills, Maintenance, 10/27/18 9:14:30 EDT Start Date: 10/27/18 Status: OrderedAtivan 1 mg oral tablet 1 tablet = 1 mg, By Mouth, 2 times a day, PRN as needed for anxiety, Pt can have partial fills on request [facility] [id number] #[id number], # 25 tablet, 0 Refills, Maintenance, 02/17/20 14:00:00 EDT, Tablet, [facility], 187, cm, 02/17/20 11:... Start Date: 02/17/20 Status: Orderedbaclofen 10 mg oral tablet TAKE ONE TABLET BY MOUTH THREE TIMES A DAY (WITH FOOD OR MILK). Start Date: 05/12/20 Status: OrderedColace Capsule 100 mg, 1, capsule, By Mouth, 2 times a day, Refills 0, Maintenance, 11/16/19 9:33:00 EDT Start Date: 11/16/19 Status: Orderedcyanocobalamin 1000 mcg/ml injectable solution INJECT 1000 MCG. SUBCUTANEOUSLY EVERY 4 WEEKS. Start Date: 05/12/20 Status: Ordereddivalproex sodium 250 mg oral enteric coated tablet = 250 mg, By Mouth, 2 times a day, # 60 tablet, 2 Refills, Maintenance, 02/17/20 13:50:00 EDT, Tablet, [facility], 187, cm, 02/17/20 11:58:00 EDT, Height, 102, kg, 02/12/20 12:29:00 EDT, Dry Weight Start Date: 02/17/20 Status: Orderedergocalciferol 42513 iu oral capsule See Instructions, Start from 02/24/2020- 1 capsule By Mouth Every 7 days x 7 weeks, then 1 capsule by mouth once a month, # 10 capsule, Refills 0, Tot. Refills 0, Maintenance, 02/24/20 9:00:00 EDT, Instructions Replace Required Details, Route to Pharm... Start Date: 02/24/20 Status: Orderedfentanyl 12 mcg/hr transdermal film, extended release 1 patch, Topically, Every 48 hours, Reflects frequency change, # 15 film, 0 Refills, Maintenance, 05/25/20 17:06:00 EST, Patch, [facility], Partial fill upon patient request, 187, cm, 05/12/20 8:33:00 EST, Height, 102, kg, 02/12/20 12:29:... Start Date: 05/25/20 Status: OrderedfentaNYL 25 mcg/hr transdermal film, extended release 1 film, Topically, Every 48 hours, # 15 film, 0 Refills, Maintenance, 06/08/20 17:24:00 EST, [facility], Partial fill upon patient request, 187, cm, 06/08/20 10:35:00 EST, Height, 102,kg, 02/12/20 12:29:00 EDT, Dry Weight Start Date: 06/08/20 Status: Orderedfexofenadine 180 mg oral tablet TAKE 1 TABLET BY MOUTH ONCE A DAY NEEDED.. Start Date: 03/03/20 Status: OrderedMelatonin 10 mg oral tablet 1 tablet = 10 mg, By Mouth, Daily at bedtime, 0 Refills, Maintenance, 05/12/20 8:14:00 EST, Partial fill upon patient request if the prescription is for a schedule II opioid drug. Start Date: 05/12/20 Status: OrderednalOXONE Once, 0 Refills, Maintenance, 03/03/20 14:34:00 EST Start Date: 03/03/20 Status: OrderedNorco 325 mg-5 mg oral tablet 1 tablet, By Mouth, Every 4 hours, PRN pain, Reflects dose increase., # 168 tablet, 0 Refills, Maintenance, 05/25/20 17:06:00 EST, Tablet, [facility], Partial fill upon patient request, 1 tablet By Mouth Every 4 hours,PRN:pain,Instr:Refle... Start Date: 05/25/20 Status: Orderedomeprazole 40 mg oral enteric coated [...] EDT, Route to Pharmacy Electronically, [facility], 187, cm, 02/17/20 11:58:00 EDT, [...] Active Nausea(Confirmed) Active Neck pain, mechanical(Confirmed) Active Thoracic spine pain(Confirmed) Active History of transcranial magnetic Active stimulation(Confirmed) [...] right thumb by Fred Turk M.D. at [facility].3On 04/12/2015 underwent repining trapeziometacarpal joint reconstruction, right thumb status post revision trapeziometacarpal joint arthroplasty, right thumb, with loss of pin fixation by Fred Turk M.D. at [facility].4On 07/03/16 underwent revision failed arthroplasty, right thumb for failed revision of trapeziometacarpal joint arthroplasty by Fred Turk M.D. 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 by Elijah Stover MD at [id number] Oswestry Disability Index: 47% (21/45; severe disability ) on 03/03/20; updated [place] Back Pain Disability Scale score: 4 on 03/03/20.8Updated Oswestry Disability Index: 40% moderate disability and [place] Back Pain Disability Scale: 27 on 10/08/18.9Updated Oswestry Disability Index: 50% ( severe disability ) on 07/29/17; updated [place] Pain Disability Scale score: 52 on 07/29/17.10Updated Oswestry Disability Index: 36% moderate disability and [place] Back Pain Disability Scale: 24 on 08/25/2015.11Initial [place] Back Pain Disability Scale: 27 on 03/12/2012; initial Oswestry Disability Index: 54% ( severe disability ) on 03/12/2012.12multiple surgeries--first in [id number] score 6 on 07/29/17 Social History Social History Type Response Smoking Status Former smoker; Other: quit 3 5 years ago; entered on: 11/11/17 Sex Male
--- OUTSIDE RECORDS SUMMARY | 2022-02-13 19:15 | XMS_ITS | Continuity of Care Document ---
:1945 Author Organization [facility] Address [address] [place] [id number]- Care Team Providers Name Role Phone Po Thania FALK Primary Care Physician Encounter [facility] [place] Date(s): 05/26/20 - 06/25/20 [facility] [address] [place] [id number] Allergies, Adverse Reactions, Alerts Substance Reaction Severity [...] Pt can have partial fills on request [facility] [id number] #[id number], # 25 tablet, 0 Refills, Maintenance, 02/17/20 14:00:00 EDT, Tablet, [facility], 187, cm, 02/17/20 11:... Start [...] Maintenance, 02/17/20 13:50:00 EDT, Tablet, [facility], 187, cm, 02/17/20 11:58:00 EDT, Height, 102, kg, 02/12/20 12:29:00 EDT, Dry Weight Start Date: 02/17/20 Status: Orderedergocalciferol 03421 iu oral capsule See Instructions, Start from [...] tabs/day, # 168 tablet, 0 Refills, Maintenance, 06/22/20 14:22:00 EST, Tablet, [facility], Partial fill upon patient request, 1 tablet By Mouth Every 4 hours,PRN:pain,Instr:MAX 6 tabs/day... Start Date: 06/22/20 Status: Orderedomeprazole 40 mg oral enteric coated [...] EDT, Route to Pharmacy Electronically, [facility], 187, cm, 02/17/20 11:58:00 EDT, [...] right thumb by Fred Turk M.D. at [facility].3On 04/12/2015 underwent repining trapeziometacarpal joint reconstruction, right thumb status post revision trapeziometacarpal joint arthroplasty, right thumb, with loss of pin fixation by Fred Turk M.D. at [facility].4On 07/03/16 underwent revision failed arthroplasty, right thumb for failed revision of trapeziometacarpal joint arthroplasty by Fred Turk M.D. 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 by Elijah Stover MD at [id number] Oswestry Disability Index: 47% (21/45; severe disability ) on 03/03/20; updated [place] Back Pain Disability Scale score: 4 on 03/03/20.8Updated Oswestry Disability Index: 40% moderate disability and [place] Back Pain Disability Scale: 27 on 10/08/18.9Updated Oswestry Disability Index: 50% ( severe disability ) on 07/29/17; updated [place] Pain Disability Scale score: 52 on 07/29/17.10Updated Oswestry Disability Index: 36% moderate disability and [place] Back Pain Disability Scale: 24 on 08/25/2015.11Initial [place] Back Pain Disability Scale: 27 on 03/12/2012; initial Oswestry Disability Index: 54% ( severe disability ) on 03/12/2012.12multiple surgeries--first in [id number] score 6 on 07/29/17 Social History Social History Type Response Smoking Status Former smoker; Other: quit 3 5 years ago; entered on: 11/11/17 Sex Male
--- OUTSIDE RECORDS SUMMARY | 2022-02-13 19:15 | XMS_ITS | Continuity of Care Document ---
:1945 Author Organization [facility] Address [address] [place] [address]- Care Team Providers Name Role Phone Po Thania FALK Primary Care Physician [place] [facility] [place] [id number] Date(s): 10/23/19 - 11/22/19 [facility] [address] [place] [address]- [facility] Attending Physician: Eva Nugent Admitting Physician: Eva Nugent Referring Physician: [id number] Allergies, Adverse Reactions, Alerts Substance Reaction Severity Status codeine GI upset Active aspirin Active hydrochlorothiazide Active Soma mood changes Active Topamax bilateral hand shaking Active nonsteroidal anti-inflammatory agents1 Active 1dumping syndrome Medications acetaminophen-HYDROcodone 325 mg-5 mg oral tablet See Instructions, PRN Pain , Severe, Take 1-2 tablet By Mouth Every 4 hours as needed for pain, # 84tablet, 0 Refills, Acute 11/23/19 9:31:00 EDT, 11/16/19 9:29:00 EDT, Tablet, Partial fill upon patient request Start Date: 11/16/19 Stop Date: 11/23/19 Status: Orderedacetaminophen/butalbital/caffeine 325 mg-50 mg-40 mg oral tablet 1 tablet, By Mouth, PRN headache, 0 Refills, Maintenance, 07/10/18 11:58:21 EDT Start Date: 07/10/18 Status: Orderedalfuzosin 10 mg oral tablet, extended release TAKE ONE TABLET BY MOUTH EVERY OTHER NIGHT Start Date: 01/20/19 Status: OrderedamLODIPine 10 mg oral tablet 10 mg, 1, tablet, By Mouth, Daily, # 30 tablet, Refills 0, Maintenance, 08/26/18 14:42:07 EDT Start Date: 08/26/18 Status: OrderedAspercreme with Lidocaine 4% topical cream 1 applicator, Topically, 3 times a day, 0 Refills, Maintenance, 10/27/18 9:14:30 EDT Start Date: 10/27/18 Status: OrderedCitrucel Clear Mix 2 g/19 g oral powder for reconstitution = 2 Gm, By Mouth, 3 times a day, 0 Refills, Maintenance, 11/11/19 8:22:00 EDT Start Date: 11/11/19 Status: OrderedClear Eyes 1 drops, Eyes, Both, 2 times a day, 0 Refills, Maintenance, 01/20/19 8:18:14 EDT Start Date: 01/20/19 Status: OrderedColace Capsule 100 mg, 1, capsule, By Mouth, 2 times a day, Refills 0, Maintenance, 11/16/19 9:33:00 EDT Start Date: 11/16/19 Status: OrderedControlled Substance Agreement Controlled Substance Agreement, See Instructions, # 1 units, Refills 0, Tot. 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 Start Date: 10/08/18 Status: Orderedcyanocobalamin 1000 mcg/ml injectable solution INJECT 1 ML. SUBCUTANEOUSLY EVERY MONTH.. Start Date: 03/03/19 Status: Ordereddicyclomine 10 mg oral capsule 0 Refills, Maintenance, 10/28/19 14:18:00 EDT Start Date: 10/28/19 Status: Ordereddivalproex sodium 500 mg oral enteric coated tablet 1 tablet = 500 mg, By Mouth, Daily in AM, # 270 tablet, 0 Refills, Maintenance, 11/06/19 9:16:00 EDT, EC Tablet Start Date: 11/06/19 Status: Orderedfexofenadine 180 mg oral tablet TAKE 1 TABLET BY MOUTH ONCE A DAY NEEDED.. Start Date: 10/08/18 Status: OrderedImodium A-D 2 mg, By Mouth, Every 4 hours, PRN, Refills 0, Maintenance, Diarrhea, 10/08/18 10:17:24 EDT Start Date: 10/08/18 Status: OrderedLORazepam 1 mg oral tablet 1 tablet = 1 mg, By Mouth, 2 times a day, PRN as needed for anxiety, 0 Refills, Maintenance, 07/29/17 9:34:33 EDT Start Date: 07/29/17 Status: OrderedMetamucil 3.4 gm/5.2 gm oral powder for reconstitution = 3.4 Gm, By Mouth, Daily, 0 Refills, Maintenance, 10/08/18 10:17:39 EDT Start Date: 10/08/18 Status: OrderedMiraLax Powder 1 pack/packet = 17 Gm, By Mouth, Daily, 0 Refills, Maintenance, 11/16/19 9:33:00 EDT, Powder Start Date: 11/16/19 Status: OrderedMOM Liquid 30 mL, By Mouth, Daily, PRN Constipation, 0 Refills, Maintenance, 11/16/19 9:33:00 EDT, Suspension Start Date: 11/16/19 Status: Orderedmupirocin 2% topical ointment 1 application, Topically, 3 times a day, # 15 Gm, 0 Refills, Maintenance, 12/15/18 13:51:40 EDT, Ointment Start Date: 12/15/18 Status: OrderedNarcan 4 mg/0.1 mL nasal spray See Instructions, nasally once, may repeat every 2 to 3 minutes until patient responds, # 2 each, 0 Refills, Soft Stop, 01/20/19 8:54:13 EDT Start Date: 01/20/19 Status: Orderedomeprazole 40 mg oral enteric coated capsule 1 capsule = 40 mg, By Mouth, Daily, # 30 capsule, 0 Refills, Maintenance, 08/25/15 8:54:33, EC Capsule Start Date: 08/25/15 Status: Orderedpantoprazole 40 mg oral delayed release [...] 9:33:00 EDT, Tablet Start Date: 11/16/19 Status: OrderedtraMADol 50 mg oral tablet See Instructions, PRN Pain , Moderate, Take 1 tablet By Mouth Every 4 hours as needed for pain not to exceed 400 mg/day, # 60 tablet, 0 Refills, Acute 11/23/19 9:29:00 EDT, 11/16/19 9:28:00 EDT, Tablet Start Date: 11/16/19 Stop Date: 11/23/19 Status: OrderedtraZODone 50 mg oral tablet TAKE 1 OR 2 TABLETS BY MOUTH AT BEDTIME NEEDED.. Start Date: 09/09/19 Status: Orderedtriamcinolone 0.1% topical cream 1 application, Topically, 2 times a day, # 15 Gm, 0 Refills, Maintenance, 12/15/18 13:51:15 EDT, Cream Start Date: 12/15/18 Stop Date: 12/29/18 Status: OrderedTums 500 = 500 mg, Daily, 0 Refills, Maintenance, 09/09/19 9:20:00 EDT Start Date: 09/09/19 Status: Orderedvenlafaxine 150 mg oral capsule, extended release 1 capsule = 150 mg, By Mouth, Daily, 0 Refills, Maintenance Start Date: 12/18/10 Status: OrderedVitamin C 500 mg oral tablet TAKE ONE TABLET BY MOUTH TWICE A DAY Start Date: 03/03/19 Status: Orderedwarfarin 4 mg oral tablet 1 tablet = 4 mg, By Mouth, Once, 0 Refills, Maintenance, 11/16/19 9:33:00 EDT, Tablet Start Date: 11/16/19 Status: OrderedWheeled walker with seat and hand brakes Wheeled walker with seat and hand brakes, See Instructions, # 1 each, Refills 0, Tot. Refills 0, Maintenance, as directed for support of left hip and knee pending hip revision surgery, 10/14/19 16:20:00 EDT, Supply Start Date: 10/14/19 Status: Ordered Problem List Condition Effective Dates [...] right thumb by Fred Turk M.D. at [facility].3On 04/12/2015 underwent repining trapeziometacarpal joint reconstruction, right thumb status post revision trapeziometacarpal joint arthroplasty, right thumb, with loss of pin fixation by Fred Turk M.D. at [facility].4On 07/03/16 underwent revision failed arthroplasty, right thumb for failed revision of trapeziometacarpal joint arthroplasty by Fred Turk M.D. 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
--- OUTSIDE RECORDS SUMMARY | 2022-02-13 19:15 | XMS_ITS | Continuity of Care Document ---
:1945 Author Organization [facility] Address [address] [place] [address]- Care Team Providers Name Role Phone Po Thania FALK Primary Care Physician Encounter [facility] ACCT R [id number] Date(s): 11/13/19 - 11/16/[address] [address] [facility] Discharge Disposition: A-Transfer SNF Attending Physician: Elijah Stover MD Admitting Physician: Elijah Stover MD Referring Physician: Elijah Stover MD Allergies, Adverse Reactions, Alerts Substance Reaction Severity Status codeine GI upset Active aspirin Active hydrochlorothiazide Active Topamax bilateral hand shaking Active nonsteroidal anti-inflammatory agents1 Active Soma mood changes Active 1dumping syndrome Medications acetaminophen-HYDROcodone 325 mg-5 [...] Maintenance,Signed On: 10/08/18 [facility]: mechanical back pain (M54.5), meralgia paraesthetica [...] right thumb by Fred Turk M.D. at [facility].3On 04/12/2015 underwent repining trapeziometacarpal joint reconstruction, right thumb status post revision trapeziometacarpal joint arthroplasty, right thumb, with loss of pin fixation by Fred Turk M.D. at [facility].4On 07/03/16 underwent revision failed arthroplasty, right thumb for failed revision of trapeziometacarpal joint arthroplasty by Fred Turk M.D. 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 The sizing rasp has been replaced by a prosthetic acetabular head. Air is present within the adjacent soft tissues compatible with recent surgery. No dislocation or acute fracture. Prostate seeds. IMPRESSION: Status post left hip arthroplasty. WSN: [id number] Ordering Physician: Elijah Stover Dictated By: Jhon Penn MD Dictated Date/Time: 11/13/19 4:34 pm Reviewed By: Jhon Penn MD Signed By: Jhon Penn MD Signed Date/Time: 11/13/19 4:34 pm Transcribed By: CSB Transcribed Date/Time: 11/13/19 4:33 pm Exam Date Time Procedure Performing Provider Status 11/13/19 3:30 PM Pelvis 1 or 2 Views Valery Merida; Auth (Verif ied) Notes:(Pelvis 1 or 2 Views) Reason For Exam: OA left hip revisionRESULT: Pelvis 1 or 2 Views Pelvis 1 or 2 Views Reason: OA left hip revision FINDINGS: ?Component of prosthesis appears to be in typical location on this single view study. ? IMPRESSION: Unremarkable intraop study. WSN: [id number] Ordering Physician: Elijah Stover Dictated By: Víctor Higgins MD Dictated Date/Time: 11/13/19 3:46 pm Reviewed By: Víctor Higgins MD Signed By: Víctor Higgins MD Signed Date/Time: 11/13/19 3:46 pm Transcribed By: OWNG Transcribed Date/Time: 11/13/19 3:45 pm Exam Date Time Procedure Performing Provider Status 11/13/19 3:41 PM Pelvis 1 or 2 Views Valery Merida; Auth (Verif ied) Notes:(Pelvis 1 or 2 Views) Reason For Exam: oa left hip revisionRESULT: Pelvis 1 or 2 Views Pelvis 1 or 2 Views Reason: oa left hip revision COMPARISON: Study done short time earlier same day. FINDINGS: ?Components of prosthesis appear to be in typical location on this single view study. ? IMPRESSION: Unremarkable intraop study. WSN: [id number] Ordering Physician: Elijah Stover Dictated By: Víctor Higgins MD Dictated Date/Time: 11/13/19 3:43 pm Reviewed By: Víctor Higgins MD Signed By: Víctor Higgins MD Signed Date/Time: 11/13/19 3:43 pm Transcribed By: WONG Transcribed Date/Time: 11/13/19 3:42 pm Exam Date Time Procedure Performing Provider Status 11/13/19 3:30 PM Pelvis 1 or 2 Views Valery Merida; Auth (Verif ied) Notes:(Pelvis 1 or 2 Views) Reason For Exam: oa left hip revisionRESULT: Pelvis 1 or 2 Views Pelvis 1 or 2 Views Reason: oa left hip revision COMPARISON: Study done short time earlier same day FINDINGS: ?Components of prosthesis appear to be in typical location on this single view study. ? IMPRESSION: Unremarkable intraop study WSN: [id number] Ordering Physician: Elijah Stover Dictated By: Víctor Higgins MD Dictated Date/Time: 11/13/19 3:42 pm Reviewed By: Víctor Higgins MD Signed By: Víctor Higgins MD Signed Date/Time: 11/13/19 3:42 pm Transcribed By: WONG Transcribed Date/Time: 11/13/19 3:41 pm Vital Signs Most recent to oldest 1 2 3 [Reference Range]: Height 182 cm 182 cm 182 cm (11/16/19 7:33 AM) (11/16/19 4:30 AM) (11/16/19 12: 30 AM) Weight 123.9 kg 123.9 kg (11/13/19 11:14 AM) (11/13/19 6:59 AM) Oxygen Saturation [94-100 %] 97 % 94 % 96 % (11/16/19 7:33 AM) (11/16/19 4:30 AM) (11/16/19 12: 30 AM) Pulse Rate [55-90 bpm] 88 bpm 92 bpm 85 bpm (11/16/19 7:33 AM) *H* (11/16/19 12:30 AM) (11/16/19 4:30 AM) Body Mass Index [18.5-24.99] 37.4 37.4 *>HHI* *>HHI* (11/13/19 11:14 AM) (11/13/19 6:59 AM) Blood Pressure [90-138/55-84 130/62 mm Hg 139/77 mm Hg 119 /70 mm Hg mm Hg] (11/16/19 7:33 AM) *H* (11/16/19 12:30 AM) (11/16/19 4:30 AM) Respiratory Rate [16-30 19 br/min 18 br/min 18 br/mi n br/min] (11/16/19 12:37 PM) (11/16/19 10:58 AM) (11/16/19 9 :58 AM) Temperature [96.8-100.4 98.4 DegF 97.5 DegF 98.4 Deg F DegF] (11/16/19 7:33 AM) (11/16/19 4:30 AM) (11/16/19 12: 30 AM) Liters per Minute 2 L/min 2 L/min 2 L/min (11/15/19 7:16 AM) (11/15/19 3:00 AM) (11/15/19 2:0 0 AM) Mode of Delivery (Oxygen) Room air Room air Room a ir (11/16/19 7:33 AM) (11/16/19 4:30 AM) (11/16/19 12: 30 AM) Blood pressure sites Arm, left Arm, left Arm, left (11/16/19 7:33 AM) (11/15/19 1:26 PM) (11/15/19 10: 27 AM) Temperature Route Oral Oral Oral (11/16/19 7:33 AM) (11/16/19 4:30 AM) (11/16/19 12: 30 AM) Dry Weight 123.9 kg (11/13/19 6:59 AM) Social History Social History Type Response Smoking Status Former smoker; Other: quit 3 5 years ago; entered on: 11/11/17 Sex
--- OUTSIDE RECORDS SUMMARY | 2022-02-13 19:15 | XMS_ITS | Continuity of Care Document ---
:1945 Author Organization [facility] Address [address] [place] [address]- Care Team Providers Name Role Phone Po Thania FALK Primary Care Physician Encounter [facility] Date(s): 08/15/20 - 09/14/20 [facility] [address] [place] [id number] Allergies, Adverse Reactions, Alerts [...] can have partial fills on request FAWAD [id number] #[id number], # 25 tablet, 0 Refills, Maintenance, 02/17/20 14:00:00 EDT, Tablet, [facility] 187, cm, 02/17/20 11:... Start Date: 02/17/20 Status: OrderedColace Capsule 100 mg, 1, capsule, By Mouth, 2 times a day, Refills 0, Maintenance, 11/16/19 9:33:00 EDT Start Date: 11/16/19 Status: OrderedControlled Substance Agreement Controlled Substance Agreement, See Instructions, # 1 each, Refills 0, Tot. Refills 0, Maintenance, Updated On: 07/28/2020 Pharmacy I: [facility] DX: M54.4 mechanical low back pain, M53.3SI joint pain, 08/02/20 9:14:00 EDT, Supply Start Date: 08/02/20 Status: Orderedcyanocobalamin 1000 mcg/ml injectable solution INJECT 1000 MCG. SUBCUTANEOUSLY EVERY 4 WEEKS. Start Date: 05/12/20 Status: Ordereddivalproex sodium 250 mg oral enteric coated tablet = 250 mg, By Mouth, 2 times a day, # 60 tablet, 2 Refills, Maintenance, 02/17/20 13:50:00 EDT, Tablet, [facility] 187, cm, 02/17/20 11:58:00 EDT, [...] 10:21:00 EDT,... Start Date: 09/13/20 Status: Orderedergocalciferol 91170 iu oral capsule See Instructions, Start from [...] Refills, Maintenance, 07/28/20 17:23:00 EDT, [facility], Partial fill upon patient request if the prescription is for a schedu... Start Date: 07/28/20 Status: OrderednalOXONE Once, 0 Refills, Maintenance, 03/03/20 14:34:00 EST Start Date: 03/03/20 Status: OrderedNorco 325 mg-5 mg oral tablet 1-2 tablet, By Mouth, Every 4 hours, PRN pain, MAX 9 tabs/day. 7 day supply, # 63 tablet, 0 Refills,Maintenance, 09/12/20 11:05:00 EDT, Tablet, [facility], Partial fill upon patient request. [...] 02/17/20 13:50:00 EDT, Route to Pharmacy Electronically, [facility], 187, cm, 02/17/20 11:58:00 EDT, [...] right thumb by Fred Turk M.D. at [facility].3On 04/12/2015 underwent repining trapeziometacarpal joint reconstruction, right thumb status post revision trapeziometacarpal joint arthroplasty, right thumb, with loss of pin fixation by Fred Turk M.D. at [facility].4On 07/03/16 underwent revision failed arthroplasty, right thumb for failed revision of trapeziometacarpal joint arthroplasty by Fred Turk M.D. at [facility].5Onabout 04/09/17 underwent left hip replacement for left hip fracture by Jos Locke at [facility] 6On 11/13/19 underwent revision hemiarthroplasty with conversion to total hip arthroplasty for left hip femoral component aseptic loosening by Elijah Stover MD at [id number] Oswestry Disability Index: 47% (21/45; severe disability ) on 03/03/20; updated [place] Back Pain Disability Scale score: 4 on 03/03/20.8Updated Oswestry Disability Index: 40% moderate disability and [place] Back Pain Disability Scale: 27 on 10/08/18.9Updated Oswestry Disability Index: 50% ( severe disability ) on 07/29/17; updated [place] Back Pain Disability Scale score: 52 on 07/29/17.10Updated Oswestry Disability Index: 36% moderate disability and [place] Back Pain Disability Scale: 24 on 08/25/2015.11Initial [place] Back Pain Disability Scale: 27 on 03/12/2012; initial Oswestry Disability Index: 54% ( severe disability ) on 03/12/2012.12multiple surgeries--first in [id number] score 6 on 07/29/17 Social History Social History Type Response Smoking Status Former smoker; Other: quit 3 5 years ago; entered on: 11/11/17 Sex Male
--- OUTSIDE RECORDS SUMMARY | 2022-02-13 19:15 | XMS_ITS | Continuity of Care Document ---
:1945 Author Organization [facility] Address [address] [place] [address]- Care Team Providers Name Role Phone Po Thania FALK Primary Care Physician Encounter [facility] Date(s): 06/09/20 - 07/09/20 [facility] [address] [place] [id number] Allergies, Adverse Reactions, Alerts Substance Reaction Severity [...] Pt can have partial fills on request [facility] [id number] #[id number], # 25 tablet, 0 Refills, Maintenance, 02/17/20 14:00:00 EDT, Tablet, [facility], 187, cm, 02/17/20 11:... Start [...] Maintenance, 02/17/20 13:50:00 EDT, Tablet, [facility], 187, cm, 02/17/20 11:58:00 EDT, Height, 102, kg, 02/12/20 12:29:00 EDT, Dry Weight Start Date: 02/17/20 Status: Orderedergocalciferol 72966 iu oral capsule See Instructions, Start from [...] EDT, Route to Pharmacy Electronically, [facility], 187, cm, 02/17/20 11:58:00 EDT, [...] right thumb by Fred Turk M.D. at [facility].3On 04/12/2015 underwent repining trapeziometacarpal joint reconstruction, right thumb status post revision trapeziometacarpal joint arthroplasty, right thumb, with loss of pin fixation by Fred Turk M.D. at [facility].4On 07/03/16 underwent revision failed arthroplasty, right thumb for failed revision of trapeziometacarpal joint arthroplasty by Fred Turk M.D. at [facility].5On/about 04/09/17 underwent left hip replacement for left hip fracture by Jos Locke at [facility] 6On 11/13/19 underwent revision hemiarthroplasty with conversion to total hip arthroplasty for left hip femoral component aseptic loosening by Elijah Stover MD at [id number] Oswestry Disability Index: 47% (21/45; severe disability [...] severe disability ) on 03/12/2012.12multiple surgeries--first in [id number] score 6 on 07/29/17 Social History Social History Type Response Smoking Status Former smoker; Other: quit 3 5 years ago; entered on: 11/11/17 Sex Male
--- OUTSIDE RECORDS SUMMARY | 2022-02-13 19:15 | XMS_ITS | Continuity of Care Document ---
:1945 Author Organization [facility] Address [address] [place] [address]- Care Team Providers Name Role Phone Po Thania FALK Primary Care Physician Encounter [facility] Date(s): 09/07/20 - 10/07/20 [facility] [address] [place] [id number] Allergies, Adverse Reactions, Alerts Substance Reaction [...] can have partial fills on request FAWAD [id number] #[id number], # 25 tablet, 0 Refills, Maintenance, 02/17/20 14:00:00 EDT, Tablet, [facility] 187, cm, 02/17/20 11:... Start Date: 02/17/20 Status: OrderedColace Capsule 100 mg, 1, capsule, By Mouth, 2 times a day, Refills 0, Maintenance, 11/16/19 9:33:00 EDT Start Date: 11/16/19 Status: OrderedControlled Substance Agreement Controlled Substance Agreement, See Instructions, # 1 each, Refills 0, Tot. Refills 0, Maintenance, Updated On: 07/28/2020 Pharmacy I: [facility] DX: M54.4 mechanical low back pain, M53.3SI joint pain, 08/02/20 9:14:00 EDT, Supply Start Date: 08/02/20 Status: Orderedcyanocobalamin 1000 mcg/ml injectable solution INJECT 1000 MCG. SUBCUTANEOUSLY EVERY 4 WEEKS. Start Date: 05/12/20 Status: Ordereddivalproex sodium 250 mg oral enteric coated tablet = 250 mg, By Mouth, 2 times a day, # 60 tablet, 2 Refills, Maintenance, 02/17/20 13:50:00 EDT, Tablet, [facility] 187, cm, 02/17/20 11:58:00 EDT, [...] for a schedu... Start Date: 07/28/20 Status: Orderedmelatonin 10 mg oral tablet 1 tablet = 10 mg, By Mouth, Daily at bedtime, PRN as needed for insomnia, 0 Refills, Maintenance, 09/29/20 8:08:00 EDT, Tablet, Partial fill upon patient request if the prescription is for a schedule II opioid drug. Start Date: 09/29/20 Status: OrderednalOXONE Once, 0 Refills, Maintenance, 03/03/20 14:34:00 EST Start Date: 03/03/20 Status: OrderedNorco 325 mg-5 mg oral tablet 1-2 tablet, By Mouth, Every 4 hours, PRN pain, MAX 6 tabs/day. Partial fill upon patient req., # 84 tablet, 0 Refills, Maintenance, 10/04/20 16:42:00 EDT, Tablet Start Date: 10/04/20 Status: Orderedomeprazole 40 mg oral enteric coated [...] EDT, Route to Pharmacy Electronically, [facility], 187, cm, 02/17/20 11:58:00 EDT, Height, 102, kg, 02/12/20 12:29:00 EDT... Start Date: 02/17/20 Status: Orderedvenlafaxine 150 mg oral capsule, extended release 150 mg, 1, capsule, By Mouth, Daily, # 30 capsule, Refills 0, Tot. Refills 0, Maintenance, 02/17/20 13:50:00 EDT, Route to Pharmacy Electronically, [facility], 187, cm, 02/17/20 11:58:00 EDT, [...] right thumb by Fred Turk M.D. at [facility].3On 04/12/2015 underwent repining trapeziometacarpal joint reconstruction, right thumb status post revision trapeziometacarpal joint arthroplasty, right thumb, with loss of pin fixation by Fred Turk M.D. at [facility].4On 07/03/16 underwent revision failed arthroplasty, right thumb for failed revision of trapeziometacarpal joint arthroplasty by Fred Turk M.D. at [facility].5On/about 04/09/17 underwent left hip replacement for left hip fracture by Jos Locke at [facility] 6On 11/13/19 underwent revision hemiarthroplasty with conversion to total hip arthroplasty for left hip femoral component aseptic loosening by Elijah Stover MD at [id number] Oswestry Disability Index: 47% (21/45; severe disability ) on 03/03/20; updated [place] Back Pain Disability Scale score: 4 on 03/03/20.8Updated Oswestry Disability Index: 40% moderate disability and [place] Back Pain Disability Scale: 27 on 10/08/18.9Updated Oswestry Disability Index: 50% ( severe disability ) on 07/29/17; updated [place] Back Pain Disability Scale score: 52 on 07/29/17.10Updated Oswestry Disability Index: 36% moderate disability and [place] Back Pain Disability Scale: 24 on 08/25/2015.11Initial [place] Back Pain Disability Scale: 27 on 03/12/2012; initial Oswestry Disability Index: 54% ( severe disability ) on 03/12/2012.12multiple surgeries--first in [id number] score 6 on 07/29/17 Social History Social History Type Response Smoking Status Former smoker; Other: quit 3 5 years ago; entered on: 11/11/17 Sex Male
--- OUTSIDE RECORDS SUMMARY | 2022-02-13 19:15 | XMS_ITS | Continuity of Care Document ---
:1945 Author Organization [facility] Address [address] [place] [address]- Care Team Providers Name Role Phone Po Thania FALK Primary Care Physician Encounter [facility] Date(s): 08/10/20 - 12/03/20 [facility] [address] [place] [id number] Attending Physician: Jane FALK, Dina Admitting Physician: Jane FALK, Dina Allergies, Adverse Reactions, Alerts Substance Reaction Severity Status codeine GI upset Active Topamax bilateral hand shaking Active nonsteroidal anti-inflammatory agents1 Active aspirin Active hydrochlorothiazide Active Soma mood changes Active 1dumping syndrome Immunizations Not Given Vaccine [...] can have partial fills on request FAWAD [id number] #[id number], # 25 tablet, 0 Refills, Maintenance, 02/17/20 [...] On: 07/28/2020 Pharmacy I: [facility] DX: M54.4 mechanical low back pain, [...] EDT, Route to Pharmacy Electronically, [facility], 187, cm, 02/17/20 11:58:00 EDT, Height, 102, kg, 02/12/20 12:29:00 EDT... Start Date: 02/17/20 Status: Orderedvenlafaxine 150 mg oral capsule, extended release 150 mg, 1, capsule, By Mouth, Daily, # 30 capsule, Refills 0, Tot. Refills 0, Maintenance, 02/17/20 13:50:00 EDT, Route to Pharmacy Electronically, [facility], 187, cm, 02/17/20 11:58:00 EDT, [...] right thumb by Fred Turk M.D. at [facility].3On 04/12/2015 underwent repining trapeziometacarpal joint reconstruction, right thumb status post revision trapeziometacarpal joint arthroplasty, right thumb, with loss of pin fixation by Fred Turk M.D. at [facility].4On 07/03/16 underwent revision failed arthroplasty, right thumb for failed revision of trapeziometacarpal joint arthroplasty by Fred Turk M.D. at [facility].5On/about 04/09/17 underwent left hip replacement for left hip fracture by Jos Locke at [facility] 6On 11/13/19 underwent revision hemiarthroplasty with conversion to total hip arthroplasty for left hip femoral component aseptic loosening by Elijah Stover MD at [id number] Oswestry Disability Index: 47% (21/45; severe disability [...] severe disability ) on 03/12/2012.12multiple surgeries--first in [id number] score 6 on 07/29/17 Social History Social History Type Response Smoking Status Former smoker; Other: quit 3 5 years ago; entered on: 11/11/17 Sex Male
--- OUTSIDE RECORDS SUMMARY | 2022-02-13 19:16 | XMS_ITS | Continuity of Care Document ---
:1945 Author Organization [facility] Address [address] [place] [address]- Care Team Providers Name Role Phone Po Thania FALK [id number] [address] [place] [id number] Attending Physician: Not on Staff, Attending MD Allergies, Adverse Reactions, Alerts Substance Reaction [...] II opioid drug. Start Date: 07/28/20 Status: OrderedBelbuca 150 mcg buccal film 1 film = 150 mcg, By Mouth, Every 12 hours, place film on inside of cheek and avoid food or drink until completely dissolved, # 56 film, 1 Refills, Maintenance, 01/23/21 9:21:00 EDT, [facility], JONATHAN 1, 187, cm, 12/26/20 9:24:00 EDT, Nya... Start Date: 01/23/21 Status: OrderedBlu-Emu Super Strength topical cream Topically, [...] 0, Maintenance, Updated On: 07/28/2020 Pharmacy I: [facility] DX: M54.4 mechanical low back pain, [...] EDT, EC Capsule Start Date: 12/19/19 Status: OrderedOzempic 2 mg/1.5 mL (0.25 mg or 0.5 mg dose) subcutaneous solution INJECT 0.25MG (0.2 ML) UNDER THE SKIN EVERY 7 DAYS FOR 4 DOSES Start Date: 12/26/20 Status: Orderedsenna 187 mg oral tablet 1 [...] feet(Confirmed) Anemia following surgery(Confirmed) Active Abdominal pain, central(Confirmed) Active Headache, cervicogenic(Confirmed) Active Status post cholecystectomy(Confirmed) [...] right thumb by Fred Turk M.D. at [facility].3On 04/12/2015 underwent repining trapeziometacarpal joint reconstruction, right thumb status post revision trapeziometacarpal joint arthroplasty, right thumb, with loss of pin fixation by Fred Turk M.D. at [facility].4On 07/03/16 underwent revision failed arthroplasty, right thumb for failed revision of trapeziometacarpal joint arthroplasty by Fred Turk M.D. at [facility].5On/about 04/09/17 underwent left hip replacement for left hip fracture by Jos Locke at [facility] 6On 11/13/19 underwent revision hemiarthroplasty with conversion to total hip arthroplasty for left hip femoral component aseptic loosening by Elijah Stover MD at [id number] Oswestry Disability Index: 47% (21/45; severe disability [...] severe disability ) on 03/12/2012.12multiple surgeries--first in [id number] score 6 on 07/29/17 Social History Social History Type Response Smoking Status Former smoker; Other: quit 3 5 years ago; entered on: 11/11/17 Sex Male
--- OUTSIDE RECORDS SUMMARY | 2022-02-13 19:16 | XMS_ITS | Continuity of Care Document ---
:1945 Author Organization [facility] Address [address] [place] [address]- Care Team Providers Name Role Phone Po Thania FALK Primary Care Phys[place] [facility] [place] 10[place]01/20 [facility] [address] [place] [id number] Allergies, Adverse Reactions, Alerts [...] can have partial fills on request [facility] [id number] #[id number], # 25 tablet, 0 Refills, Maintenance, 02/17/20 14:00:00 EDT, Tablet, [facility] 187, cm, 02/17/20 11:... Start Date: 02/17/20 Status: OrderedColace Capsule 100 mg, 1, capsule, By Mouth, 2 times a day, Refills 0, Maintenance, 11/16/19 9:33:00 EDT Start Date: 11/16/19 Status: OrderedControlled Substance Agreement Controlled Substance Agreement, See Instructions, # 1 each, Refills 0, Tot. Refills 0, Maintenance, Updated On: 07/28/2020 Pharmacy I: [facility] DX: M54.4 mechanical low back pain, M53.3SI joint pain, 08/02/20 9:14:00 EDT, Supply Start Date: 08/02/20 Status: Orderedcyanocobalamin 1000 mcg/ml injectable solution INJECT 1000 MCG. SUBCUTANEOUSLY EVERY 4 WEEKS. Start Date: 05/12/20 Status: Ordereddivalproex sodium 250 mg oral enteric coated tablet = 250 mg, By Mouth, 2 times a day, # 60 tablet, 2 Refills, Maintenance, 02/17/20 13:50:00 EDT, Tablet, [facility] 187, cm, 02/17/20 11:58:00 EDT, [...] req., # 84 tablet, 0 Refills, Maintenance, 09/29/20 8:29:00 EDT, Tablet Start Date: 09/29/20 Status: Orderedomeprazole 40 mg oral enteric coated [...] EDT, Route to Pharmacy Electronically, [facility], 187, cm, 02/17/20 11:58:00 EDT, Height, 102, kg, 02/12/20 12:29:00 EDT... Start Date: 02/17/20 Status: Orderedvenlafaxine 150 mg oral capsule, extended release 150 mg, 1, capsule, By Mouth, Daily, # 30 capsule, Refills 0, Tot. Refills 0, Maintenance, 02/17/20 13:50:00 EDT, Route to Pharmacy Electronically, [facility], 187, cm, 02/17/20 11:58:00 [...] right thumb by Fred Turk M.D. at [facility].3On 04/12/2015 underwent repining trapeziometacarpal joint reconstruction, right thumb status post revision trapeziometacarpal joint arthroplasty, right thumb, with loss of pin fixation by Fred Turk M.D. at [facility].4On 07/03/16 underwent revision failed arthroplasty, right thumb for failed revision of trapeziometacarpal joint arthroplasty by Fred Turk M.D. at [facility].5On/about 04/09/17 underwent left hip replacement for left hip fracture by Jos Locke at [facility] 6On 11/13/19 underwent revision hemiarthroplasty with conversion to total hip arthroplasty for left hip femoral component aseptic loosening by Elijah Stover MD at [id number] Oswestry Disability Index: 47% (21/45; severe disability [...] severe disability ) on 03/12/2012.12multiple surgeries--first in [id number] score 6 on 07/29/17 Social History Social History Type Response Smoking Status Former smoker; Other: quit 3 5 years ago; entered on: 11/11/17 Sex Male
--- OUTSIDE RECORDS SUMMARY | 2022-02-13 19:16 | XMS_ITS | Continuity of Care Document ---
:1945 Author Organization [facility] Address [address] [place] [address]- Care Team Providers Name Role Phone Po Thania FALK Primary Care Physician Encounter [facility] [place] Date(s): 10/27/20 - 11/26/20 [facility] [address] [place] [id number] [...] Pt can have partial fills on request [facility] [id number] #[id number], # 25 tablet, 0 Refills, Maintenance, 02/17/20 14:00:00 EDT, Tablet, [facility], 187, cm, 02/17/20 11:... Start [...] Updated On: 07/28/2020 Pharmacy I: [facility] DX: M54.4 mechanical low back pain, M53.3SI [...] 02/17/20 13:50:00 EDT, Route to Pharmacy Electronically, [facility], 187, cm, 02/17/20 11:58:00 EDT, Height, 102, kg, 02/12/20 12:29:00 EDT... Start Date: 02/17/20 Status: Orderedvenlafaxine 150 mg oral capsule, extended release 150 mg, 1, capsule, By Mouth, Daily, # 30 capsule, Refills 0, Tot. Refills 0, Maintenance, 02/17/20 13:50:00 EDT, Route to Pharmacy Electronically, [facility], 187, cm, 02/17/20 11:58:00 EDT, [...] right thumb by Fred Turk M.D. at [facility].3On 04/12/2015 underwent repining trapeziometacarpal joint reconstruction, right thumb status post revision trapeziometacarpal joint arthroplasty, right thumb, with loss of pin fixation by Fred Turk M.D. 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 by Elijah Stover MD at [id number] Oswestry Disability Index: 47% (21/45; severe disability ) on 03/03/20; updated [place] Back Pain Disability Scale score: 4 on 03/03/20.8Updated Oswestry Disability Index: 40% moderate disability and [place] Back Pain Disability Scale: 27 on 10/08/18.9Updated Oswestry Disability Index: 50% ( severe disability ) on 07/29/17; updated [place] Back Pain Disability Scale score: 52 on 07/29/17.10Updated Oswestry Disability Index: 36% moderate disability and [place] Back Pain Disability Scale: 24 on 08/25/2015.11Initial [place] Back Pain Disability Scale: 27 on 03/12/2012; initial Oswestry Disability Index: 54% ( severe disability ) on 03/12/2012.12multiple surgeries--first in [id number] score 6 on 07/29/17 Social History Social History Type Response Smoking Status Former smoker; Other: quit 3 5 years ago; entered on: 11/11/17 Sex Male
--- OUTSIDE RECORDS SUMMARY | 2022-02-13 19:16 | XMS_ITS | Continuity of Care Document ---
:1945 Author Organization [facility] Address [address] [place] [id number]- Care Team Providers Name Role Phone Po Thania FALK Primary Care Physician Encounter [facility] [place] Date(s): 04/15/20 - 05/15/20 [facility] [address] [place] [id number] Allergies, Adverse Reactions, Alerts Substance [...] Pt can have partial fills on request [facility] [id number] #[id number], # 25 tablet, 0 Refills, Maintenance, 02/17/20 14:00:00 EDT, Tablet, [facility], 187, cm, 02/17/20 11:... Start [...] Maintenance, 02/17/20 13:50:00 EDT, Tablet, [facility], 187, cm, 02/17/20 11:58:00 EDT, Height, 102, kg, 02/12/20 12:29:00 EDT, Dry Weight Start Date: 02/17/20 Status: Orderedergocalciferol 26249 iu oral capsule See Instructions, Start from 02/24/2020- 1 capsule By Mouth Every 7 days x 7 weeks, then 1 capsule by mouth once a month, # 10 capsule, Refills 0, Tot. Refills 0, Maintenance, 02/24/20 9:00:00 EDT, Instructions Replace Required Details, Route to Pharm... Start Date: 02/24/20 Status: Orderedfentanyl 12 mcg/hr transdermal film, extended release 1 patch, Topically, Every 72 hours, intractable pain, # 5 film, 0 Refills, Maintenance, 05/13/20 14:46:00 EST, Patch, [facility], Partial fill upon patient request if the prescription is for a schedule II opioid drug., emmanuel Dubose, 05/12/20 8... Start Date: 05/13/20 Status: Orderedfexofenadine 180 mg oral tablet TAKE [...] Status: OrderedNorco 325 mg-5 mg oral tablet 0.5 -1 tablet, By Mouth, Every 4 hours, PRN pain, max 5 tabs daily, # 140 tablet, 0 Refills, Maintenance, 05/02/20 13:13:00 EST, Tablet, [facility], Partial fill upon patient request, 0.5 -1 tablet By Mouth Every 4 hours,PRN:pain,Instr:ma... Start Date: 05/02/20 Status: Orderedomeprazole 40 mg oral enteric coated [...] right thumb by Fred Turk M.D. at [facility].3On 04/12/2015 underwent repining trapeziometacarpal joint reconstruction, right thumb status post revision trapeziometacarpal joint arthroplasty, right thumb, with loss of pin fixation by Fred Turk M.D. 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
--- OUTSIDE RECORDS SUMMARY | 2022-02-13 19:16 | XMS_ITS | Continuity of Care Document ---
:1945 Author Organization [facility] Address [address] [place] [id number]- Care Team Providers Name Role Phone Po Thania FALK Primary Care Physician [place] [facility] [place](s[place] 02/13/20 - 02/17/[address] [id number]- [facility] Encounter Diagnosis Altered mental state (Final) - 02/12/20 Discharge Disposition: A-D/C Home Attending Physician: Ha Jackson MD Admitting Physician: Benedicto Quezada MD Referring Physician: Not on Staff, Referring MD [...] 1 tablet, By Mouth, Every 6 hours, PRN Pain , Severe, Pt can have partial fills on request [facility] [id number] #[id number], # 20 tablet, 0 Refills, Maintenance, 02/17/20 13:59:00 EDT, Tablet, [facility], Partial fill upon patient request, 1... Start Date: 02/17/20 Status: Orderedalfuzosin 10 mg oral tablet, extended [...] 4 Refills, Maintenance, 02/17/20 13:49:00 EDT, Tablet, [facility], 187, cm, 02/17/20 11:58:00 EDT, [...] Pt can have partial fills on request [facility] [id number] #[id number], # 25 tablet, 0 Refills, Maintenance, 02/17/20 14:00:00 EDT, Tablet, [facility], 187, cm, 02/17/20 11:... Start Date: 02/17/20 Status: OrderedColace Capsule 100 mg, 1, capsule, By Mouth, 2 times a day, Refills 0, Maintenance, 11/16/19 9:33:00 EDT Start Date: 11/16/19 Status: Ordereddivalproex sodium 250 mg oral enteric coated tablet = 250 mg, By Mouth, 2 times a day, # 60 tablet, 2 Refills, Maintenance, 02/17/20 13:50:00 EDT, Tablet, [facility], 187, cm, 02/17/20 11:58:00 EDT, Height, 102, kg, 02/12/20 12:29:00 EDT, Dry Weight Start Date: 02/17/20 Status: Orderedergocalciferol 64320 iu oral capsule See Instructions, Start from 02/24/2020- 1 capsule By Mouth Every 7 days x 7 weeks, then 1 capsule by mouth once a month, # 10 capsule, Refills 0, Tot. Refills 0, Maintenance, 02/24/20 9:00:00 EDT, Instructions Replace Required Details, Route to Pharm... Start Date: 02/24/20 Status: Orderedomeprazole 40 mg oral enteric coated [...] EDT, Route to Pharmacy Electronically, [facility], 187, cm, 02/17/20 11:58:00 EDT, Height, 102, kg, 02/12/20 12:29:00 EDT... Start Date: 02/17/20 Status: Orderedvenlafaxine 150 mg oral capsule, extended release 150 mg, 1, capsule, By Mouth, Daily, # 30 capsule, Refills 0, Tot. Refills 0, Maintenance, 02/17/20 13:50:00 EDT, Route to Pharmacy Electronically, [facility], 187, cm, 02/17/20 11:58:00 EDT, [...] right thumb by Fred Turk M.D. at [facility].3On 04/12/2015 underwent repining trapeziometacarpal joint reconstruction, right thumb status post revision trapeziometacarpal joint arthroplasty, right thumb, with loss of pin fixation by Fred Turk M.D. 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 by Elijah Stover MD at [id number] Oswestry Disability Index: 40% moderate disability and [place] Back Pain Disability Scale: 27 on 10/08/18.8Updated Oswestry Disability Index: 50% ( severe disability ) on 07/29/17; updated [place] Pain Disability Scale score: 52 on 07/29/17.9Updated Oswestry Disability Index: 36% moderate disability and [place] Back Pain Disability Scale: 24 on 08/25/2015.10Initial [place] Back Pain Disability Scale: 27 on 03/12/2012; initial Oswestry Disability Index: 54% ( severe disability ) on 03/12/2012.11multiple surgeries--first in [id number] score 6 on 07/29/17 Results Radiology Reports Exam Date Time Procedure Performing Provider Status 02/14/20 8:59 AM Chest Portable Kali , Jeaneth; Auth (Verified) Notes:(Chest Portable) Reason For Exam: for mri screening;Other:RESULT: Chest Portable Chest Portable 02/14/2020 Reason: Other:; for mri screening; Clinical Question(s): Other: COMPARISON: 01/06/2020, correlation with CT chest 12/29/2019 FINDINGS: LINES AND TUBES: None. LUNGS AND PLEURA: Clear lungs. Normal pulmonary vascularity. No pleural effusion. No pneumothorax. HEART, MEDIASTINUM AND NANNETTE: Heart is normal in size. Normal mediastinal and hilar contour. Prominence of right paratracheal tissues is stable, and correlates with vascular structures. BONES AND SOFT TISSUES: No acute abnormality. Multiple clips are again seen at the GE junction. IMPRESSION: No acute abnormality. WSN: [id number] Ordering Physician: Jed Avilez Dictated By: Bianca Romero MD, I Dictated Date/Time: 02/14/20 12:44 p Reviewed By: Bianca Romero MD, I Signed By: Bianca Romero MD, I Signed Date/Time: 02/14/20 12:44 pm Transcribed By: WONG Transcribed Date/Time: 02/14/20 12:42 pm Vital Signs Most recent to oldest 1 2 3 [Reference Range]: Height 187 cm 187 cm 187 cm (02/17/20 11:58 AM) (02/17/20 7:08 AM) (02/17/20 3:28 AM) Weight 102 kg 102.7 kg (02/12/20 7:06 AM) (02/12/20 6:49 AM) Oxygen Saturation [94-100 98 % 100 % 99 % %] (02/17/20 11:58 AM) (02/17/20 7:08 AM) (02/17/20 3:28 AM) Pulse Rate [55-90 bpm] 109 bpm 71 bpm 70 bpm *H* (02/17/20 7:08 AM) (02/17/20 3:2 8 AM) (02/17/20 11:58 AM) Body Mass Index 29.17 [18.5-24.99] *H* (02/12/20 7:06 AM) Blood Pressure 135/96 mm Hg 118/65 mm Hg 118/65 mm Hg [90-138/55-84 mm Hg] (02/17/20 11:58 AM) (02/17/20 7:42 AM) ( 7:08 AM) Respiratory Rate [16-30 18 br/min 16 br/min 18 br/mi n br/min] (02/17/20 11:58 AM) (02/17/20 7:08 AM) (02/17/20 3:28 AM) Temperature [96.8-100.4 97.6 DegF 97.5 DegF 97.4 Deg F DegF] (02/17/20 11:58 AM) (02/17/20 7:08 AM) (02/17/20 3:28 AM) Mode of Delivery (Oxygen) Room air Room air Room a ir (02/17/20 11:58 AM) (02/17/20 7:08 AM) (02/17/20 3:28 AM) Blood pressure sites Arm, left Arm, left Arm, left (02/17/20 11:58 AM) (02/17/20 7:08 AM) (02/17/20 3:28 AM) Temperature Route Oral Oral Oral (02/17/20 11:58 AM) (02/17/20 7:08 AM) (02/17/20 3:28 AM) Dry Weight 102 kg (02/12/20 7:06 AM) Weight Obtained Via Bed scale (02/12/20 6:49 AM) Social History Social History Type Response Smoking Status Former smoker; Other: quit 3 5 years ago; entered on: 11/11/17 Sex Male
--- OUTSIDE RECORDS SUMMARY | 2022-02-13 19:16 | XMS_ITS | Continuity of Care Document ---
:1945 Author Organization [facility] Address [address] [place] [phone]- Care Team Providers Name Role Phone Po Thania FALK Primary Care Physician [place] [facility] [place] [facility] [id number] Date(s): 06/15/21 - 07/15/21 [facility] [address] [place] [id number]- Attending Physician: Eva Nugent Allergies, Adverse Reactions, [...] On: 07/28/2020 Pharmacy I: [facility] DX: M54.4 mechanical low back [...] right thumb by Fred Turk M.D. at [facility].3On 04/12/2015 underwent repining trapeziometacarpal joint reconstruction, right thumb status post revision trapeziometacarpal joint arthroplasty, right thumb, with loss of pin fixation by Fred Turk M.D. 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 by Elijah Stover MD at [id number] Oswestry Disability Index: 47% (21/45; severe disability ) on 03/03/20; updated [place] Back Pain Disability Scale score: 4 on 03/03/20.8Updated Oswestry Disability Index: 40% moderate disability and [place] Back Pain Disability Scale: 27 on 10/08/18.9Updated Oswestry Disability Index: 50% ( severe disability ) on 07/29/17; updated [place] Pain Disability Scale score: 52 on 07/29/17.10Updated Oswestry Disability Index: 36% moderate disability and [place] Back Pain Disability Scale: 24 on 08/25/2015.11Initial [place] Back Pain Disability Scale: 27 on 03/12/2012; initial Oswestry Disability Index: 54% ( severe disability ) on 03/12/2012.12multiple surgeries--first in [id number] score 6 on 07/29/17 Social History Social History Type Response Smoking Status Former smoker; Other: quit 3 5 years ago; entered on: 11/11/17 Sex Male
--- OUTSIDE RECORDS SUMMARY | 2022-02-13 19:16 | XMS_ITS | Continuity of Care Document ---
:1945 Author Organization [facility] Address [address] [place] [phone]- Care Team Providers Name Role Phone Po Thania FALK Primary Care Physician [place] [facility] [place] 06/22/20 - 08/11/20 [facility] [address] [place] [id number] Attending Physician: Jane FALK, Dina [...] Pt can have partial fills on request [facility] [id number] #[id number], # 25 tablet, 0 Refills, Maintenance, 02/17/20 14:00:00 EDT, Tablet, [facility], 187, cm, 02/17/20 11:... Start Date: 02/17/20 Status: OrderedColace Capsule 100 mg, 1, capsule, By Mouth, 2 times a day, Refills 0, Maintenance, 11/16/19 9:33:00 EDT Start Date: 11/16/19 Status: OrderedControlled Substance Agreement Controlled Substance Agreement, See Instructions, # 1 each, Refills 0, Tot. Refills 0, Maintenance, Updated On: 07/28/2020 Pharmacy I: [facility] DX: M54.4 mechanical low back pain, M53.3SI joint pain, 08/02/20 9:14:00 EDT, Supply Start Date: 08/02/20 Status: Orderedcyanocobalamin 1000 mcg/ml injectable solution INJECT 1000 MCG. SUBCUTANEOUSLY EVERY 4 WEEKS. Start Date: 05/12/20 Status: Ordereddivalproex sodium 250 mg oral enteric coated tablet = 250 mg, By Mouth, 2 times a day, # 60 tablet, 2 Refills, Maintenance, 02/17/20 13:50:00 EDT, Tablet, [facility], 187, cm, 02/17/20 11:58:00 EDT, Height, 102, kg, 02/12/20 12:29:00 EDT, Dry Weight Start Date: 02/17/20 Status: Orderedergocalciferol 60113 iu oral capsule See Instructions, Start from [...] tabs/day, # 168 tablet, 0 Refills, Maintenance, 07/19/20 15:38:00 EDT, Tablet, [facility], Partial fill upon patient request, 1 tablet By Mouth Every 4 hours,PRN:pain,Instr:MAX 6 tabs/day... Start Date: 07/19/20 Status: Orderedomeprazole 40 mg oral enteric coated [...] 02/17/20 13:50:00 EDT, Route to Pharmacy Electronically, [facility], 187, cm, 02/17/20 11:58:00 EDT, Height, 102, kg, 02/12/20 12:29:00 EDT... Start Date: 02/17/20 Status: Orderedvenlafaxine 150 mg oral capsule, extended release 150 mg, 1, capsule, By Mouth, Daily, # 30 capsule, Refills 0, Tot. Refills 0, Maintenance, 02/17/20 13:50:00 EDT, Route to Pharmacy Electronically, [facility], 187, cm, 02/17/20 11:58:00 EDT, [...] right thumb by Fred Turk M.D. at [facility].3On 04/12/2015 underwent repining trapeziometacarpal joint reconstruction, right thumb status post revision trapeziometacarpal joint arthroplasty, right thumb, with loss of pin fixation by Fred Turk M.D. at [facility].4On 07/03/16 underwent revision failed arthroplasty, right thumb for failed revision of trapeziometacarpal joint arthroplasty by Fred Turk M.D. 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 by Elijah Stover MD at [id number] Oswestry Disability Index: 47% (21/45; severe disability ) on 03/03/20; updated [place] Back Pain Disability Scale score: 4 on 03/03/20.8Updated Oswestry Disability Index: 40% moderate disability and [place] Back Pain Disability Scale: 27 on 10/08/18.9Updated Oswestry Disability Index: 50% ( severe disability ) on 07/29/17; updated [place] Pain Disability Scale score: 52 on 07/29/17.10Updated Oswestry Disability Index: 36% moderate disability and [place] Back Pain Disability Scale: 24 on 08/25/2015.11Initial [place] Back Pain Disability Scale: 27 on 03/12/2012; initial Oswestry Disability Index: 54% ( severe disability ) on 03/12/2012.12multiple surgeries--first in [id number] score 6 on 07/29/17 Social History Social History Type Response Smoking Status Former smoker; Other: quit 3 5 years ago; entered on: 11/11/17 Sex Male
--- OUTSIDE RECORDS SUMMARY | 2022-02-13 19:16 | XMS_ITS | Continuity of Care Document ---
:1945 Author Organization [facility] Address [address] [place] [address]- Care Team Providers Name Role Phone Ayo Jeffrey MD Primary Care Physician En[place] [facility] [place](s): 01/05/20 - 02/04/20 [facility] [address] [place] [id number]- [facility] Allergies, Adverse Reactions, Alerts Substance Reaction Severity [...] thumb by Fred Turk M.D. at [facility].3On 04/12/2015 underwent repining trapeziometacarpal joint reconstruction, right thumb status post revision trapeziometacarpal joint arthroplasty, right thumb, with loss of pin fixation by Fred Turk M.D. at [facility].4On 07/03/16 underwent revision failed arthroplasty, right thumb for failed revision of trapeziometacarpal joint arthroplasty by Fred Turk M.D. 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 by Elijah Stover MD at [id number] Oswestry Disability Index: 40% moderate disability and [place] Back Pain Disability Scale: 27 on 10/08/18.8Updated Oswestry Disability Index: 50% ( severe disability ) on 07/29/17; updated [place] Back Pain Disability Scale score: 52 on 07/29/17.9Updated Oswestry Disability Index: 36% moderate disability and [place] Back Pain Disability Scale: 24 on 08/25/2015.10Initial [place] Back Pain Disability Scale: 27 on 03/12/2012; initial [place]estry Disability Index: 54% ( severe disability ) on 03/12/2012.11multiple surgeries--first in [id number] score 6 on 07/29/17 Social History Social History Type Response Smoking Status Former smoker; Other: quit 3 5 years ago; entered on: 11/11/17 Sex Male
--- OUTSIDE RECORDS SUMMARY | 2022-02-13 19:16 | XMS_ITS | Continuity of Care Document ---
:1945 Author Organization [facility] Address [address] [place] [address]- Care Team Providers Name Role Phone Po Thania FALK Primary Care Physician Encounter [facility] [place] Date(s): 09/06/20 - 10/06/20 [facility] [address] [place] [id number] Allergies, Adverse Reactions, Alerts Substance Reaction [...] can have partial fills on request [facility] [id number] #[id number], # 25 tablet, 0 Refills, Maintenance, 02/17/20 14:00:00 EDT, Tablet, [facility] 187, cm, 02/17/20 11:... Start Date: 02/17/20 Status: OrderedColace Capsule 100 mg, 1, capsule, By Mouth, 2 times a day, Refills 0, Maintenance, 11/16/19 9:33:00 EDT Start Date: 11/16/19 Status: OrderedControlled Substance Agreement Controlled Substance Agreement, See Instructions, # 1 each, Refills 0, Tot. Refills 0, Maintenance, Updated On: 07/28/2020 Pharmacy I: [facility] DX: M54.4 mechanical low back pain, M53.3SI joint pain, 08/02/20 9:14:00 EDT, Supply Start Date: 08/02/20 Status: Orderedcyanocobalamin 1000 mcg/ml injectable solution INJECT 1000 MCG. SUBCUTANEOUSLY EVERY 4 WEEKS. Start Date: 05/12/20 Status: Ordereddivalproex sodium 250 mg oral enteric coated tablet = 250 mg, By Mouth, 2 times a day, # 60 tablet, 2 Refills, Maintenance, 02/17/20 13:50:00 EDT, Tablet, [facility] 187, cm, 02/17/20 11:58:00 EDT, [...] EDT, Route to Pharmacy Electronically, [facility], 187, cm, 02/17/20 11:58:00 EDT, Height, 102, kg, 02/12/20 12:29:00 EDT... Start Date: 02/17/20 Status: Orderedvenlafaxine 150 mg oral capsule, extended release 150 mg, 1, capsule, By Mouth, Daily, # 30 capsule, Refills 0, Tot. Refills 0, Maintenance, 02/17/20 13:50:00 EDT, Route to Pharmacy Electronically, [facility], 187, cm, 02/17/20 11:58:00 EDT, [...] right thumb by Fred Turk M.D. at [facility].3On 04/12/2015 underwent repining trapeziometacarpal joint reconstruction, right thumb status post revision trapeziometacarpal joint arthroplasty, right thumb, with loss of pin fixation by Fred Turk M.D. at [facility].4On 07/03/16 underwent revision failed arthroplasty, right thumb for failed revision of trapeziometacarpal joint arthroplasty by Fred Turk M.D. 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 by Elijah Stover MD at [id number] Oswestry Disability Index: 47% (21/45; severe disability ) on 03/03/20; updated [place] Back Pain Disability Scale score: 4 on 03/03/20.8Updated Oswestry Disability Index: 40% moderate disability and [place] Back Pain Disability Scale: 27 on 10/08/18.9Updated Oswestry Disability Index: 50% ( severe disability ) on 07/29/17; updated [place] Back Pain Disability Scale score: 52 on 07/29/17.10Updated Oswestry Disability Index: 36% moderate disability and [place] Back Pain Disability Scale: 24 on 08/25/2015.11Initial [place] Back Pain Disability Scale: 27 on 03/12/2012; initial Oswestry Disability Index: 54% ( severe disability ) on 03/12/2012.12multiple surgeries--first in [id number] score 6 on 07/29/17 Social History Social History Type Response Smoking Status Former smoker; Other: quit 3 5 years ago; entered on: 11/11/17 Sex Male
--- OUTSIDE RECORDS SUMMARY | 2022-02-13 19:16 | XMS_ITS | Continuity of Care Document ---
:1945 Author Organization [facility] Address [address] [place] [address]- Care Team Providers Name Role Phone Po Thania FALK Primary Care Physician [place] [facility] [place](s): 09/12/20 - 10/12/20 [facility] [address] [place] [id number] Allergies, Adverse Reactions, Alerts Substance Reaction [...] can have partial fills on request [facility] [id number] #[id number], # 25 tablet, 0 Refills, Maintenance, 02/17/20 14:00:00 EDT, Tablet, [facility] 187, cm, 02/17/20 11:... Start Date: 02/17/20 Status: OrderedColace Capsule 100 mg, 1, capsule, By Mouth, 2 times a day, Refills 0, Maintenance, 11/16/19 9:33:00 EDT Start Date: 11/16/19 Status: OrderedControlled Substance Agreement Controlled Substance Agreement, See Instructions, # 1 each, Refills 0, Tot. Refills 0, Maintenance, Updated On: 07/28/2020 Pharmacy I: [facility] DX: M54.4 mechanical low back pain, M53.3SI joint pain, 08/02/20 9:14:00 EDT, Supply Start Date: 08/02/20 Status: Orderedcyanocobalamin 1000 mcg/ml injectable solution INJECT 1000 MCG. SUBCUTANEOUSLY EVERY 4 WEEKS. Start Date: 05/12/20 Status: Ordereddivalproex sodium 250 mg oral enteric coated tablet = 250 mg, By Mouth, 2 times a day, # 60 tablet, 2 Refills, Maintenance, 02/17/20 13:50:00 EDT, Tablet, [facility] 187, cm, 02/17/20 11:58:00 EDT, [...] EDT, Route to Pharmacy Electronically, [facility], 187, cm, 02/17/20 11:58:00 EDT, Height, 102, kg, 02/12/20 12:29:00 EDT... Start Date: 02/17/20 Status: Orderedvenlafaxine 150 mg oral capsule, extended release 150 mg, 1, capsule, By Mouth, Daily, # 30 capsule, Refills 0, Tot. Refills 0, Maintenance, 02/17/20 13:50:00 EDT, Route to Pharmacy Electronically, [facility], 187, cm, 02/17/20 11:58:00 EDT, [...] right thumb by Fred Turk M.D. at [facility].3On 04/12/2015 underwent repining trapeziometacarpal joint reconstruction, right thumb status post revision trapeziometacarpal joint arthroplasty, right thumb, with loss of pin fixation by Fred Turk M.D. 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
--- OUTSIDE RECORDS SUMMARY | 2022-02-13 19:16 | XMS_ITS | Continuity of Care Document ---
:1945 Author Organization [facility] Address [address] [place] [address]- Care Team Providers Name Role Phone Po Thania FALK Primary Care Physician Encounter [facility] [place] Date(s): 01/23/21 - 02/22/21 [facility] [address] [place], [place] [address] Allergies, Adverse Reactions, Alerts Substance Reaction Severity [...] On: 07/28/2020 Pharmacy I: [facility] DX: M54.4 mechanical low back [...] right thumb by Fred Turk M.D. at [facility].3On 04/12/2015 underwent repining trapeziometacarpal joint reconstruction, right thumb status post revision trapeziometacarpal joint arthroplasty, right thumb, with loss of pin fixation by Fred Turk M.D. at [facility].4On 07/03/16 underwent revision failed arthroplasty, right thumb for failed revision of trapeziometacarpal joint arthroplasty by Fred Turk M.D. 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
--- OUTSIDE RECORDS SUMMARY | 2022-02-13 19:16 | XMS_ITS | Continuity of Care Document ---
:1945 Author Organization [facility] Address [address] [place] [phone]- Care Team Providers Name Role Phone Po Thania FALK Primary Care Physician Encounter [place] Date(s): 05/17/20 - 06/16/20 [facility] [address] [place] [id number] Allergies, Adverse Reactions, Alerts [...] partial fills on request [facility] [id number] #[id number], # 25 tablet, 0 Refills, Maintenance, 02/17/20 14:00:00 EDT, Tablet, [facility], 187, cm, 02/17/20 11:... Start [...] Maintenance, 02/17/20 13:50:00 EDT, Tablet, [facility], 187, cm, 02/17/20 11:58:00 EDT, Height, 102, kg, 02/12/20 12:29:00 EDT, Dry Weight Start Date: 02/17/20 Status: Orderedergocalciferol 93786 iu oral capsule See Instructions, Start from [...] EDT, Route to Pharmacy Electronically, [facility], 187, cm, 02/17/20 11:58:00 EDT, [...] right thumb by Fred Turk M.D. at [facility].3On 04/12/2015 underwent repining trapeziometacarpal joint reconstruction, right thumb status post revision trapeziometacarpal joint arthroplasty, right thumb, with loss of pin fixation by Fred Turk M.D. at [facility].4On 07/03/16 underwent revision failed arthroplasty, right thumb for failed revision of trapeziometacarpal joint arthroplasty by Fred Turk M.D. 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 by Elijah Stover MD at [id number] Oswestry Disability Index: 47% (21/45; severe disability ) on 03/03/20; updated [place] Back Pain Disability Scale score: 4 on 03/03/20.8Updated Oswestry Disability Index: 40% moderate disability and [place] Back Pain Disability Scale: 27 on 10/08/18.9Updated Oswestry Disability Index: 50% ( severe disability ) on 07/29/17; updated [place] Pain Disability Scale score: 52 on 07/29/17.10Updated Oswestry Disability Index: 36% moderate disability and [place] Back Pain Disability Scale: 24 on 08/25/2015.11Initial [place] Back Pain Disability Scale: 27 on 03/12/2012; initial Oswestry Disability Index: 54% ( severe disability ) on 03/12/2012.12multiple surgeries--first in [id number] score 6 on 07/29/17 Social History Social History Type Response Smoking Status Former smoker; Other: quit 3 5 years ago; entered on: 11/11/17 Sex Male
--- OUTSIDE RECORDS SUMMARY | 2022-02-13 19:16 | XMS_ITS | Continuity of Care Document ---
:1945 Author Organization [facility] Address [address] [place] [address]- Care Team Providers Name Role Phone Po Thania FALK Primary Care Physician [place] [facility] [place]12[place] - 02/11/21 [facility] [address] [place], [place] [address] Allergies, Adverse Reactions, Alerts Substance Reaction Severity [...] film, 1 Refills, Maintenance, 01/23/21 9:21:00 EDT, [facility], JONATHAN 1, 187, cm, 12/26/20 [...] 0, Maintenance, Updated On: 07/28/2020 Pharmacy I: [facility] DX: M54.4 mechanical low back pain, [...] joint(Confirmed)2 Status post hand surgery; right TM 12/15/15 Active joint repining(Confirmed)3 Status post hammer toe [...] right thumb by Fred Turk M.D. at [facility].3On 04/12/2015 underwent repining trapeziometacarpal joint reconstruction, right thumb status post revision trapeziometacarpal joint arthroplasty, right thumb, with loss of pin fixation by Fred Turk M.D. at [facility].4On 07/03/16 underwent revision failed arthroplasty, right thumb for failed revision of trapeziometacarpal joint arthroplasty by Fred Turk M.D. 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
--- OUTSIDE RECORDS SUMMARY | 2022-02-13 19:16 | XMS_ITS | Continuity of Care Document ---
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 Start Date: 11/07/20 Status: Orderedacetaminophen/butalbital/caffeine 325 mg-50 mg-40 mg oral tablet TAKE [...] 4 Refills, Maintenance, 02/17/20 13:49:00 EDT, Tablet, [facility], 187, cm, 02/17/20 11:58:00 EDT, [...] can have partial fills on request [facility] [id number] #[id number], # 25 tablet, 0 Refills, Maintenance, 02/17/20 14:00:00 EDT, Tablet, [facility], 187, cm, 02/17/20 11:... Start Date: 02/17/20 Status: OrderedBlu-Emu Super Strength topical cream Topically, [...] 0, Maintenance, Updated On: 07/28/2020 Pharmacy I: [facility] DX: M54.4 mechanical low back pain, M53.3SI [...] 03/03/20 Status: Orderedmeclizine 12.5 mg oral tablet 1-2 tablets, By Mouth, 4 times a day, PRN nausea/vertigo, # 224 tablet, 2 Refills, Maintenance, 10/27/20 12:29:00 EDT, [facility], 187, cm, 09/29/20 8:13:00 EDT, Height, 102, kg, 02/12/20 12:29:00 EDT, Dry Weight Start Date: 10/27/20 Status: Orderedmelatonin 5 mg oral capsule 1 capsule = 5 mg, By Mouth, Daily at bedtime, 0 Refills, Maintenance, 11/10/20 9:46:00 EDT, Partial fill upon patient request if the prescription is for a schedule II opioid drug. Start Date: 11/10/20 Status: OrderednalOXONE Once, 0 Refills, Maintenance, 03/03/20 14:34:00 EST Start Date: 03/03/20 Status: OrderedNorco 325 mg-5 mg oral tablet 1-2 tablet, By Mouth, Every 4 hours, PRN pain, MAX 9 tabs/day. RX 2 of 2, # 84 tablet, 0 Refills, Maintenance, 11/07/20 13:08:00 EDT, Tablet, [facility], Partial fill upon patient request, 1-2 tablet By Mouth Every 4 hours,Instr:PRN pain,... Start Date: 11/07/20 Status: Orderedomeprazole 40 mg oral enteric coated [...] 02/17/20 13:50:00 EDT, Route to Pharmacy Electronically, [facility], 187, cm, 02/17/20 11:58:00 EDT, Height, 102, kg, 02/12/20 12:29:00 EDT... Start Date: 02/17/20 Status: Orderedvenlafaxine 150 mg oral capsule, extended release 150 mg, 1, capsule, By Mouth, Daily, # 30 capsule, Refills 0, Tot. Refills 0, Maintenance, 02/17/20 13:50:00 EDT, Route to Pharmacy Electronically, [facility], 187, cm, 02/17/20 11:58:00 EDT, [...] right thumb by Fred Turk M.D. at [facility].3On 04/12/2015 underwent repining trapeziometacarpal joint reconstruction, right thumb status post revision trapeziometacarpal joint arthroplasty, right thumb, with loss of pin fixation by Fred Turk M.D. at [facility].4On 07/03/16 underwent revision failed arthroplasty, right thumb for failed revision of trapeziometacarpal joint arthroplasty by Fred Turk M.D. 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 by Elijah Stover MD at [id number] Oswestry Disability Index: 47% (21/45; severe disability ) on 03/03/20; updated [place] Back Pain Disability Scale score: 4 on 03/03/20.8Updated [place]estry Disability Index: 40% moderate disability and [place] Back Pain Disability Scale: 27 on 10/08/18.9Updated [place]estry Disability Index: 50% ( severe disability ) on 07/29/17; updated [place] Pain Disability Scale score: 52 on 07/29/17.10Updated [place]estry Disability Index: 36% moderate disability and [place] Back Pain Disability Scale: 24 on 08/25/2015.11Initial [place] Back Pain Disability Scale: 27 on 03/12/2012; initial [place]estry Disability Index: 54% ( severe disability ) on 03/12/2012.12multiple surgeries--first in [id number] score 6 on 07/29/17 Social History Social History Type Response Smoking Status Former smoker; Other: quit 3 5 years ago; entered on: 11/11/17 Sex Male
--- OUTSIDE RECORDS SUMMARY | 2022-02-13 19:16 | XMS_ITS | Continuity of Care Document ---
:1945 Author Organization [facility] Address [address] [place] [address]- Care Team Providers Name Role Phone Po Thania FALK Primary Care Physician Encounter [facility] [place] Date(s): 06/09/20 - 07/09/20 [facility] [address] [place] [id number] Allergies, Adverse Reactions, Alerts Substance Reaction [...] can have partial fills on request [facility] [id number] #[id number], # 25 tablet, 0 Refills, Maintenance, 02/17/20 14:00:00 EDT, Tablet, [facility], 187, cm, 02/17/20 11:... Start [...] Maintenance, 02/17/20 13:50:00 EDT, Tablet, [facility], 187, cm, 02/17/20 11:58:00 EDT, Height, 102, kg, 02/12/20 12:29:00 EDT, Dry Weight Start Date: 02/17/20 Status: Orderedergocalciferol 33859 iu oral capsule See Instructions, Start from [...] EDT, Route to Pharmacy Electronically, [facility], 187, cm, 02/17/20 11:58:00 EDT, [...] right thumb by Fred Turk M.D. at [facility].3On 04/12/2015 underwent repining trapeziometacarpal joint reconstruction, right thumb status post revision trapeziometacarpal joint arthroplasty, right thumb, with loss of pin fixation by Fred Turk M.D. at [facility].4On 07/03/16 underwent revision failed arthroplasty, right thumb for failed revision of trapeziometacarpal joint arthroplasty by Fred Turk M.D. 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
--- OUTSIDE RECORDS SUMMARY | 2022-02-13 19:17 | XMS_ITS | Continuity of Care Document ---
:1945 Author Organization [facility] Address [address] [place] [id number]- Care Team Providers Name Role Phone Po Thania FALK Primary Care Physician [place] [facility] [place] 09/20/20 - 10/20/20 [facility] [address] [place] [id number]- Allergies, Adverse Reactions, Alerts Substance Reaction Severity [...] tabs/day., # 84 tablet, 0 Refills, Maintenance, 10/13/20 11:52:00 EDT, [facility], Partial fill upon patient request, 1 - 2 tablets By Mouth Every 4 hours,Instr:PRN pain, MAX 9 tabs/... Start Date: 10/13/20 Status: Orderedacetaminophen/butalbital/caffeine 325 mg-50 mg-40 mg oral [...] 4 Refills, Maintenance, 02/17/20 13:49:00 EDT, Tablet, [facility], 187, cm, 02/17/20 11:58:00 EDT, [...] have partial fills on request [facility] [id number] #[id number], # 25 tablet, 0 Refills, Maintenance, 02/17/20 14:00:00 EDT, Tablet, [facility], 187, cm, 02/17/20 11:... Start Date: 02/17/20 Status: OrderedColace Capsule 100 mg, 1, capsule, By Mouth, 2 times a day, Refills 0, Maintenance, 11/16/19 9:33:00 EDT Start Date: 11/16/19 Status: OrderedControlled Substance Agreement Controlled Substance Agreement, See Instructions, # 1 each, Refills 0, Tot. Refills 0, Maintenance, Updated On: 07/28/2020 Pharmacy I: [facility] DX: M54.4 mechanical low back pain, M53.3SI [...] 2, # 84 tablet, 0 Refills, Maintenance, 10/13/20 11:52:00 EDT, Tablet, [facility], Partial fill upon patient request, 1-2 tablet By Mouth Every 4 hours,Instr:PRN pain,... Start Date: 10/13/20 Status: Orderedomeprazole 40 mg oral enteric coated [...] 02/17/20 13:50:00 EDT, Route to Pharmacy Electronically, [facility], 187, cm, 02/17/20 11:58:00 EDT, Height, 102, kg, 02/12/20 12:29:00 EDT... Start Date: 02/17/20 Status: Orderedvenlafaxine 150 mg oral capsule, extended release 150 mg, 1, capsule, By Mouth, Daily, # 30 capsule, Refills 0, Tot. Refills 0, Maintenance, 02/17/20 13:50:00 EDT, Route to Pharmacy Electronically, [facility], 187, cm, 02/17/20 11:58:00 EDT, [...] arthroplasty by Fred Turk M.D. at [facility].5On04/09/17 underwent left hip replacement for left hip fracture by Jos Locke at 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
--- OUTSIDE RECORDS SUMMARY | 2022-02-13 19:17 | XMS_ITS | Continuity of Care Document ---
:1945 Author Organization [facility] Address [address] [place] [phone]- Care Team Providers Name Role Phone Po Thania FALK Primary Care Physician Encounter [facility] [place] Date(s): 09/06/20 - 10/06/20 [facility] [address] [place] [id number] Allergies, Adverse Reactions, Alerts Substance Reaction Severity [...] can have partial fills on request [facility] [id number] #[id number], # 25 tablet, 0 Refills, Maintenance, 02/17/20 14:00:00 EDT, Tablet, [facility] 187, cm, 02/17/20 11:... Start Date: 02/17/20 Status: OrderedColace Capsule 100 mg, 1, capsule, By Mouth, 2 times a day, Refills 0, Maintenance, 11/16/19 9:33:00 EDT Start Date: 11/16/19 Status: OrderedControlled Substance Agreement Controlled Substance Agreement, See Instructions, # 1 each, Refills 0, Tot. Refills 0, Maintenance, Updated On: 07/28/2020 Pharmacy I: [facility] DX: M54.4 mechanical low back pain, M53.3SI joint pain, 08/02/20 9:14:00 EDT, Supply Start Date: 08/02/20 Status: Orderedcyanocobalamin 1000 mcg/ml injectable solution INJECT 1000 MCG. SUBCUTANEOUSLY EVERY 4 WEEKS. Start Date: 05/12/20 Status: Ordereddivalproex sodium 250 mg oral enteric coated tablet = 250 mg, By Mouth, 2 times a day, # 60 tablet, 2 Refills, Maintenance, 02/17/20 13:50:00 EDT, Tablet, [facility] 187, cm, 02/17/20 11:58:00 EDT, [...] EDT, Route to Pharmacy Electronically, [facility], 187, cm, 02/17/20 11:58:00 EDT, Height, 102, kg, 02/12/20 12:29:00 EDT... Start Date: 02/17/20 Status: Orderedvenlafaxine 150 mg oral capsule, extended release 150 mg, 1, capsule, By Mouth, Daily, # 30 capsule, Refills 0, Tot. Refills 0, Maintenance, 02/17/20 13:50:00 EDT, Route to Pharmacy Electronically, [facility], 187, cm, 02/17/20 11:58:00 EDT, [...] right thumb by Fred Turk M.D. at [facility].3On 04/12/2015 underwent repining trapeziometacarpal joint reconstruction, right thumb status post revision trapeziometacarpal joint arthroplasty, right thumb, with loss of pin fixation by Fred Turk M.D. at [facility].4On 07/03/16 underwent revision failed arthroplasty, right thumb for failed revision of trapeziometacarpal joint arthroplasty by Fred Turk M.D. 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
--- OUTSIDE RECORDS SUMMARY | 2022-02-13 19:17 | XMS_ITS | Continuity of Care Document ---
:1945 Author Organization [facility] Address [address] [place] [address]- Care Team Providers Name Role Phone Thania Almaraz MD Primary Care Physician Encounter [facility] [place] Date(s): 07/28/20 - 10/06/20 [facility] [address] [place] [id number] Attending Physician: Trung Pollard Jr, MD Admitting Physician: Trung Pollard Jr, MD Allergies, Adverse Reactions, Alerts Substance Reaction [...] Pt can have partial fills on request [facility] [id number] #[id number], # 25 tablet, 0 Refills, Maintenance, 02/17/20 14:00:00 EDT, Tablet, [facility], 187, cm, 02/17/20 11:... Start Date: 02/17/20 Status: OrderedColace Capsule 100 mg, 1, capsule, By Mouth, 2 times a day, Refills 0, Maintenance, 11/16/19 9:33:00 EDT Start Date: 11/16/19 Status: OrderedControlled Substance Agreement Controlled Substance Agreement, See Instructions, # 1 each, Refills 0, Tot. Refills 0, Maintenance, Updated On: 07/28/2020 Pharmacy I: [facility] DX: M54.4 mechanical [...] 2 Refills, Maintenance, 02/17/20 13:50:00 EDT, Tablet, [facility], 187, cm, 02/17/20 11:58:00 EDT, [...] 02/17/20 13:50:00 EDT, Route to Pharmacy Electronically, [facility], 187, cm, 02/17/20 11:58:00 EDT, Height, 102, kg, 02/12/20 12:29:00 EDT... Start Date: 02/17/20 Status: Orderedvenlafaxine 150 mg oral capsule, extended release 150 mg, 1, capsule, By Mouth, Daily, # 30 capsule, Refills 0, Tot. Refills 0, Maintenance, 02/17/20 13:50:00 EDT, Route to Pharmacy Electronically, [facility], 187, cm, 02/17/20 11:58:00 EDT, [...] trapeziometacarpal joint arthroplasty right thumb by Fred Truk M.D. at [facility].3On 04/12/2015 underwent repining trapeziometacarpal joint reconstruction, right thumb status post revision trapeziometacarpal joint arthroplasty, right thumb, with loss of pin fixation by Fred Turk M.D. at [facility].4On 07/03/16 underwent revision failed arthroplasty, right thumb for failed revision of trapeziometacarpal joint arthroplasty by Fred Turk M.D. 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
--- OUTSIDE RECORDS SUMMARY | 2022-02-13 19:17 | XMS_ITS | Continuity of Care Document ---
:1945 Author Organization [facility] Address [address] [place] [address]- Care Team Providers Name Role Phone Po Thania FALK Primary Care Physician [place] [facility] [place]/06/19 - 12/06/[address] [address]- 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 at [facility].3On 04/12/2015 underwent repining trapeziometacarpal joint reconstruction, right thumb status post revision trapeziometacarpal joint arthroplasty, right thumb, with loss of pin fixation by Fred Turk M.D. at [facility].4On 07/03/16 underwent revision failed arthroplasty, right thumb for failed revision of trapeziometacarpal joint arthroplasty by Fred Turk M.D. 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 by Elijah Stover MD at [id number] Oswestry Disability Index: 40% moderate disability and [place] Back Pain Disability Scale: 27 on 10/08/18.8Updated Oswestry Disability Index: 50% ( severe disability ) on 07/29/17; updated [place] Back Pain Disability Scale score: 52 on 07/29/17.9Updated Oswestry Disability Index: 36% moderate disability and [place] Back Pain Disability Scale: 24 on 08/25/2015.10Initial [place] Back Pain Disability Scale: 27 on 03/12/2012; initial Oswestry Disability Index: 54% ( severe disability ) on 03/12/2012.11multiple surgeries--first in [id number] score 6 on 07/29/17 Social History Social History Type Response Smoking Status Former smoker; Other: quit 3 5 years ago; entered on: 11/11/17 Sex
--- OUTSIDE RECORDS SUMMARY | 2022-02-13 19:17 | XMS_ITS | Continuity of Care Document ---
:1945 Author Organization [facility] Address [address] [place] [address]- Care Team Providers Name Role Phone Po Thania FALK Primary Care Phys[id number] Date(s): 07/14/21 - 08/13/21 [facility] [address] [place] [address]- Allergies, Adverse Reactions, Alerts Substance Reaction Severity [...] On: 07/28/2020 Pharmacy I: [facility] DX: M54.4 mechanical low back pain, [...] right thumb by Fred Turk M.D. at [facility].3On 04/12/2015 underwent repining trapeziometacarpal joint reconstruction, right thumb status post revision trapeziometacarpal joint arthroplasty, right thumb, with loss of pin fixation by Fred Turk M.D. at [facility].4On 07/03/16 underwent revision failed arthroplasty, right thumb for failed revision of trapeziometacarpal joint arthroplasty by Fred Turk M.D. at [facility].5On/about 04/09/17 underwent left hip replacement for left hip fracture by Khaled Instrum at [facility] 6On 11/13/19 underwent revision hemiarthroplasty with conversion to total hip arthroplasty for left hip femoral component aseptic loosening by Elijah Stover MD at [id number] [employer] Disability Index: 47% (21/45; severe disability [...] severe disability ) on 03/12/2012.12multiple surgeries--first in [id number] score 6 on 07/29/17 Social History Social History Type Response Smoking Status Former smoker; Other: quit 3 5 years ago; entered on: 11/11/17 Sex Male
--- OUTSIDE RECORDS SUMMARY | 2022-02-13 19:17 | XMS_ITS | Continuity of Care Document ---
:1945 Author Organization [facility] Address [address] [place] [address]- Care Team Providers Name Role Phone Po Thania FALK Primary Care Physician Encounter [facility] [place] Date(s): 09/12/20 - 10/12/20 [facility] [address] [place] [id number] Allergies, Adverse Reactions, Alerts Substance Reaction [...] can have partial fills on request [facility] [id number] #[id number], # 25 tablet, 0 Refills, Maintenance, 02/17/20 14:00:00 EDT, Tablet, [facility] 187, cm, 02/17/20 11:... Start Date: 02/17/20 Status: OrderedColace Capsule 100 mg, 1, capsule, By Mouth, 2 times a day, Refills 0, Maintenance, 11/16/19 9:33:00 EDT Start Date: 11/16/19 Status: OrderedControlled Substance Agreement Controlled Substance Agreement, See Instructions, # 1 each, Refills 0, Tot. Refills 0, Maintenance, Updated On: 07/28/2020 Pharmacy I: [facility] DX: [...] 2 Refills, Maintenance, 02/17/20 13:50:00 EDT, Tablet, [facility] 187, cm, 02/17/20 11:58:00 [...] EDT, Route to Pharmacy Electronically, [facility], 187, cm, 02/17/20 11:58:00 EDT, Height, 102, kg, 02/12/20 12:29:00 EDT... Start Date: 02/17/20 Status: Orderedvenlafaxine 150 mg oral capsule, extended release 150 mg, 1, capsule, By Mouth, Daily, # 30 capsule, Refills 0, Tot. Refills 0, Maintenance, 02/17/20 13:50:00 EDT, Route to Pharmacy Electronically, [facility], 187, cm, 02/17/20 11:58:00 [...] right thumb by Fred Turk M.D. at [facility].3On 04/12/2015 underwent repining trapeziometacarpal joint reconstruction, right thumb status post revision trapeziometacarpal joint arthroplasty, right thumb, with loss of pin fixation by Fred Turk M.D. at [facility].4On 07/03/16 underwent revision failed arthroplasty, right thumb for failed revision of trapeziometacarpal joint arthroplasty by Fred Turk M.D. at [facility].5On/about 04/09/17 underwent left hip replacement for left hip fracture by Jos Locke at [facility] 6On 11/13/19 underwent revision hemiarthroplasty with conversion to total hip arthroplasty for left hip femoral component aseptic loosening by Elijah Stover MD at [id number] [employer]estry Disability Index: 47% (21/45; severe disability [...] severe disability ) on 03/12/2012.12multiple surgeries--first in [id number] score 6 on 07/29/17 Social History Social History Type Response Smoking Status Former smoker; Other: quit 3 5 years ago; entered on: 11/11/17 Sex Male
--- OUTSIDE RECORDS SUMMARY | 2022-02-13 19:17 | XMS_ITS | Continuity of Care Document ---
:1945 Author Organization [facility] Address [address] [place] [address]- Care Team Providers Name Role Phone Ayo Jeffrey MD Primary Care Physician Encounter [facility] [place] Date(s): 01/06/20 - 01/06/[address] [address]- [facility] Discharge Disposition: A-D/C Home Attending Physician: Jana Riley DO Admitting Physician: Jana Riley DO Referring Physician: Not on Staff, Referring MD [...] by Fred Turk M.D. at [facility].5On04/09/17 underwent left hip replacement for left hip fracture by Jos Locke at [facility] 6On 11/13/19 underwent revision hemiarthroplasty with conversion to total hip arthroplasty for left hip femoral component aseptic loosening by Elijah Stover MD at [id number] Oswestry Disability Index: 40% moderate disability and [...] severe disability ) on 03/12/2012.11multiple surgeries--first in [id number] score 6 on 07/29/17 Results Radiology Reports Exam Date Time Procedure Performing Provider Status 01/06/20 12:41 PM Chest Portable Jovanna Ryder; Auth (Verified ) Notes:(Chest Portable) Reason For Exam: Shortness of Breath, Fever;Other:RESULT: Chest Portable Chest Portable Hx of Present Illness: pt reports pain in leg that is greater than the usual pain from hip replacement. COMPARISON: 12/29/2019 FINDINGS: LINES AND TUBES: None. LUNGS AND PLEURA: Clear lungs. Normal pulmonary vascularity. No pleural effusion. No pneumothorax. HEART, MEDIASTINUM AND NANNETTE: Persistent enlargement of the cardiomediastinal silhouette with slight increase in size of the vascular pedicle, which may be in part due to suboptimal inspiration. The aorta is mildly calcified. BONES AND SOFT TISSUES: No acute abnormality. Surgical clips are again seen in the epigastric region. IMPRESSION: No acute abnormality. WSN: [id number] Ordering Physician: Jana Riley Dictated By: Nathaniel Mcbride MD Dictated Date/Time: 01/06/20 1:57 pm Reviewed By: Nathaniel Mcbride MD Signed By: Nathaniel Mcbride MD Signed Date/Time: 01/06/20 1:57 pm Transcribed By: WONG Transcribed Date/Time: 01/06/20 12:58 pm Exam Date Time Procedure Performing Provider Status 01/06/20 12:41 PM XR Hip w/Pelvis 2-3 View Left Jovanna Ryder; Auth (Verified) Notes:(XR Hip w/Pelvis 2-3 View Left) Reason For Exam: PainRESULT: XR Hip w/Pelvis 2-3 View Left XR Hip w/Pelvis 2-3 View Left Hx of Present Illness: pt reports pain in leg that is greater than the usual pain from hip replacement. Drainage is now puss like from the wound vac.; Reason: Pain; Clinical Question(s): Other:; effusion, new fracture COMPARISON: Pelvic radiograph dated 12/19/2019. FINDINGS: Post left total hip arthroplasty. No evidence of loosening. Alignment appears anatomic. Interval resolution gas in the joint seen on the previous study. Skin musa over the lateral aspect of the left thigh. 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 IMPRESSION: Post left hip replacement. No fracture as questioned. Effusion not excluded. If there is concern for osteomyelitis, consider tagged white blood cell scan to evaluate for osseousinvolvement in the setting of known infection/drainage of pus from the surgical wound. WSN: [id number] Ordering Physician: Jana Riley Dictated By: Aguilar Mariano MD Dictated Date/Time: 01/06/20 1:06 pm Reviewed By: Aguilar Mariano MD Signed By: Aguilar Mariano MD Signed Date/Time: 01/06/20 1:06 pm Transcribed By: WONG Transcribed Date/Time: 01/06/20 12:57 pm Vital Signs Most recent to oldest [Reference Range]: 1 2 Oxygen Saturation [94-100 %] 100 % 100 % (01/06/20 12:00 PM) (01/06/20 9:42 AM) Pulse Rate [55-90 bpm] 75 bpm 77 bpm (01/06/20 12:00 PM) (01/06/20 9:42 AM) Blood Pressure [90-138/55-84 mm Hg] 142/75 mm Hg 126/ 70 mm Hg *H* (01/06/20 9:42 AM) (01/06/20 12:00 PM) Respiratory Rate [16-30 br/min] 20 br/min 16 br/mi n (01/06/20 12:00 PM) (01/06/20 9:42 AM) Temperature [96.8-100.4 DegF] 97.8 DegF (01/06/20 9:42 AM) Mode of Delivery (Oxygen) Room air Room air (01/06/20 12:00 PM) (01/06/20 9:42 AM) Blood pressure sites Arm, right Arm, left (01/06/20 12:00 PM) (01/06/20 9:42 AM) Temperature Route Oral (01/06/20 9:42 AM) Social History Social History Type Response Smoking Status Former smoker; Other: quit 3 5 years ago; entered on: 11/11/17 Sex Male
--- OUTSIDE RECORDS SUMMARY | 2022-02-13 19:17 | XMS_ITS | Continuity of Care Document ---
:1945 Author Organization [facility] Address [address] [place] [address]- Care Team Providers Name Role Phone Po Thania FALK Primary Care Physician Encounter [facility] [place] Date(s): 10/28/20 - 11/27/20 [facility] [address] [place] [address] Allergies, Adverse Reactions, Alerts Substance Reaction Severity [...] Pt can have partial fills on request [facility] [id number] #[id number], # 25 tablet, 0 Refills, Maintenance, 02/17/20 [...] Updated On: 07/28/2020 Pharmacy [facility]: [facility] DX: M54.4 mechanical low back pain, M53.3SI [...] 02/17/20 13:50:00 EDT, Route to Pharmacy Electronically, [facility], 187, cm, 02/17/20 11:58:00 EDT, Height, 102, kg, 02/12/20 12:29:00 EDT... Start Date: 02/17/20 Status: Orderedvenlafaxine 150 mg oral capsule, extended release 150 mg, 1, capsule, By Mouth, Daily, # 30 capsule, Refills 0, Tot. Refills 0, Maintenance, 02/17/20 13:50:00 EDT, Route to Pharmacy Electronically, [facility], 187, cm, 02/17/20 11:58:00 EDT, [...] right thumb by Fred Turk M.D. at [facility].3On 04/12/2015 underwent repining trapeziometacarpal joint reconstruction, right thumb status post revision trapeziometacarpal joint arthroplasty, right thumb, with loss of pin fixation by Fred Turk M.D. at [facility].407/03/16 underwent revision failed arthroplasty, right thumb for failed revision of trapeziometacarpal joint arthroplasty by Fred Turk M.D. at [facility].5On04/09/17 underwent left hip replacement for left hip fracture by Jos Locke at [facility] 6On 11/13/19 underwent revision hemiarthroplasty with conversion to total hip arthroplasty for left hip femoral component aseptic loosening by Elijah Stover MD at [id number] [employer] Disability Index: 47% (21/45; severe disability [...] severe disability ) on 03/12/2012.12multiple surgeries--first in [id number] score 6 on 07/29/17 Social History Social History Type Response Smoking Status Former smoker; Other: quit 3 5 years ago; entered on: 11/11/17 Sex Male
--- OUTSIDE RECORDS SUMMARY | 2022-02-13 19:17 | XMS_ITS | Continuity of Care Document ---
:1945 Author Organization [facility] Address [address] [place] [address]- Care Team Providers Name Role Phone Po Thania FALK Primary Care Physician [place] [facility] [place] Date(s): 09/19/20 - 10/19/20 [facility] [address] [place] [address]- Allergies, Adverse Reactions, Alerts Substance Reaction Severity [...] 4 Refills, Maintenance, 02/17/20 13:49:00 EDT, Tablet, [facility], 187, cm, 02/17/20 11:58:00 EDT, [...] Pt can have partial fills on request [facility] [id number] #[id number], # 25 tablet, 0 Refills, Maintenance, 02/17/20 14:00:00 EDT, Tablet, [facility], 187, cm, 02/17/20 11:... Start Date: 02/17/20 Status: OrderedColace Capsule 100 mg, 1, capsule, By Mouth, 2 times a day, Refills 0, Maintenance, 11/16/19 9:33:00 EDT Start Date: 11/16/19 Status: OrderedControlled Substance Agreement Controlled Substance Agreement, See Instructions, # 1 each, Refills 0, Tot. Refills 0, Maintenance, Updated On: 07/28/2020 Pharmacy I: [facility] DX: M54.4 mechanical low back pain, M53.3SI [...] Maintenance, 10/13/20 11:52:00 EDT, Tablet, [facility], Partial fill upon patient request, [...] 02/17/20 13:50:00 EDT, Route to Pharmacy Electronically, [facility], 187, cm, 02/17/20 11:58:00 EDT, Height, 102, kg, 02/12/20 12:29:00 EDT... Start Date: 02/17/20 Status: Orderedvenlafaxine 150 mg oral capsule, extended release 150 mg, 1, capsule, By Mouth, Daily, # 30 capsule, Refills 0, Tot. Refills 0, Maintenance, 02/17/20 13:50:00 EDT, Route to Pharmacy Electronically, [facility], 187, cm, 02/17/20 11:58:00 EDT, [...] right thumb by Fred Turk M.D. at [facility].3On 04/12/2015 underwent repining trapeziometacarpal joint reconstruction, right thumb status post revision trapeziometacarpal joint arthroplasty, right thumb, with loss of pin fixation by Fred Turk M.D. at [facility].4On 07/03/16 underwent revision failed arthroplasty, right thumb for failed revision of trapeziometacarpal joint arthroplasty by Fred Turk M.D. at [facility].5On04/09/17 underwent left hip replacement for left hip fracture by Jos Locke at [facility] 6On 11/13/19 underwent revision hemiarthroplasty with conversion to total hip arthroplasty for left hip femoral component aseptic loosening by Elijah Stover MD at [id number] [employer] Disability Index: 47% (21/45; severe disability [...] severe disability ) on 03/12/2012.12multiple surgeries--first in [id number] score 6 on 07/29/17 Social History Social History Type Response Smoking Status Former smoker; Other: quit 3 5 years ago; entered on: 11/11/17 Sex Male
--- OUTSIDE RECORDS SUMMARY | 2022-02-13 19:17 | XMS_ITS | Continuity of Care Document ---
:1945 Author Organization [facility] Address [address] [place] [address]- Care Team Providers Name Role Phone Thania Almaraz MD Primary Care Physician [place] [facility] [place] 09/27/20 - 12/11/[facility] [address] [place] [id number] Attending Physician: Dina Lara MD Admitting Physician: Jane FALK, Dina Referring Physician: Thania Almaraz MD Allergies, Adverse [...] can have partial fills on request [facility] [id number] #[id number], # 25 tablet, 0 Refills, Maintenance, 02/17/20 14:00:00 EDT, Tablet, [facility], 187, cm, 02/17/20 11:... Start Date: 02/17/20 Status: OrderedBelbuca 150 mcg buccal film See Instructions, [address] film on inside of cheek and avoid food or drink until completely dissolved, # 28 film, 0 Refills, Maintenance, 12/07/20 12:17:00 EDT, [facility], Partial fill upon patient request if the pres... Start Date: 12/07/20 Status: OrderedBlu-Emu Super Strength topical cream Topically, [...] 0, Maintenance, Updated On: 07/28/2020 Pharmacy I: [facility] DX: M54.4 mechanical low back [...] 02/17/20 13:50:00 EDT, Route to Pharmacy Electronically, [facility], 187, cm, 02/17/20 11:58:00 EDT, Height, 102, kg, 02/12/20 12:29:00 EDT... Start Date: 02/17/20 Status: Orderedvenlafaxine 150 mg oral capsule, extended release 150 mg, 1, capsule, By Mouth, Daily, # 30 capsule, Refills 0, Tot. Refills 0, Maintenance, 02/17/20 13:50:00 EDT, Route to Pharmacy Electronically, [facility], 187, cm, 02/17/20 11:58:00 EDT, [...] failed revision of trapeziometacarpal joint arthroplasty by Frde Turk M.D. at [facility].5On/about 04/09/17 underwent left hip replacement for left hip fracture by Jos Locke at [facility] 6On 11/13/19 underwent revision hemiarthroplasty with conversion to total hip arthroplasty for left hip femoral component aseptic loosening by Elijah Stover MD at [id number] Oswestry Disability Index: 47% (21/45; severe disability [...] severe disability ) on 03/12/2012.12multiple surgeries--first in [id number] score 6 on 07/29/17 Social History Social History Type Response Smoking Status Former smoker; Other: quit 3 5 years ago; entered on: 11/11/17 Sex Male
--- OUTSIDE RECORDS SUMMARY | 2022-02-13 19:17 | XMS_ITS | Continuity of Care Document ---
:1945 Author Organization [facility] Address [address] [place] [address]- Care Team Providers Name Role Phone Po Thania FALK Primary Care Physician [place] [facility] [place]24[place]21 - 06/23/21 [facility] [address] [place] [address]- Allergies, Adverse Reactions, Alerts Substance Reaction Severity [...] On: 07/28/2020 Pharmacy I: [facility] DX: M54.4 mechanical low back pain, [...] right thumb by Fred Truk M.D. at [facility].3On 04/12/2015 underwent repining trapeziometacarpal joint reconstruction, right thumb status post revision trapeziometacarpal joint arthroplasty, right thumb, with loss of pin fixation by Fred Turk M.D. at [facility].4On 07/03/16 underwent revision failed arthroplasty, right thumb for failed revision of trapeziometacarpal joint arthroplasty by Fred Turk M.D. at [facility].5On/about 04/09/17 underwent left hip replacement for left hip fracture by Khaled Instrum at [facility] 6On 11/13/19 underwent revision hemiarthroplasty with conversion to total hip arthroplasty for left hip femoral component aseptic loosening by Elijah Stover MD at [id number] [employer] Disability Index: 47% (21/45; severe disability [...] severe disability ) on 03/12/2012.12multiple surgeries--first in [id number] score 6 on 07/29/17 Social History Social History Type Response Smoking Status Former smoker; Other: quit 3 5 years ago; entered on: 11/11/17 Sex Male
--- OUTSIDE RECORDS SUMMARY | 2022-02-13 19:17 | XMS_ITS | Continuity of Care Document ---
:1945 Author Organization [facility] Address [address] [place] [address]- Care Team Providers Name Role Phone Thania Almaraz MD [id number] Date(s[facility] - [facility]/23/[facility] [address] [place] [id number] Attending Physician: Marianne Cedeño MD Admitting Physician: Marianne Cedeño MD Allergies, Adverse Reactions, Alerts Substance Reaction [...] On: 07/28/2020 Pharmacy I: [facility] DX: M54.4 mechanical low back pain, [...] thumb by Fred Turk M.D. at [facility].3On 04/12/2015 underwent repining trapeziometacarpal joint reconstruction, right thumb status post revision trapeziometacarpal joint arthroplasty, right thumb, with loss of pin fixation by Fred Turk M.D. at [facility].4On 07/03/16 underwent revision failed arthroplasty, right thumb for failed revision of trapeziometacarpal joint arthroplasty by Fred Turk M.D. at [facility].5On04/09/17 underwent left hip replacement for left hip fracture by Jos Locke at [facility] 6On 11/13/19 underwent revision hemiarthroplasty with conversion to total hip arthroplasty for left hip femoral component aseptic loosening by Elijah Stover MD at [id number] [employer] Disability Index: 47% (21/45; severe disability [...] severe disability ) on 03/12/2012.12multiple surgeries--first in [id number] score 6 on 07/29/17 Social History Social History Type Response Smoking Status Former smoker; Other: quit 3 5 years ago; entered on: 11/11/17 Sex Male
--- OUTSIDE RECORDS SUMMARY | 2022-02-13 19:17 | XMS_ITS | Continuity of Care Document ---
:1945 Author Organization [facility] Address [address] [place] [address]- Care Team Providers Name Role Phone Po Thania FALK Primary Care Physician [id number] Date(s): 12/27/20 - 01/26/21 [facility] [address] [place] [address]- Allergies, Adverse Reactions, Alerts Substance Reaction Severity [...] film, 1 Refills, Maintenance, 01/23/21 9:21:00 EDT, [facility], JONATHAN 1, 187, cm, 12/26/20 [...] 0, Maintenance, Updated On: 07/28/2020 Pharmacy I: [facility] DX: M54.4 mechanical low back pain, M53.3SI [...] thumb by Fred Turk M.D. at [facility].3On 04/12/2015 underwent repining trapeziometacarpal joint reconstruction, right thumb status post revision trapeziometacarpal joint arthroplasty, right thumb, with loss of pin fixation by Fred Turk M.D. at [facility].4On 07/03/16 underwent revision failed arthroplasty, right thumb for failed revision of trapeziometacarpal joint arthroplasty by rFed Turk M.D. at [facility].5On/about 04/09/17 underwent left hip replacement for left hip fracture by Jos Locke at [facility] 6On 11/13/19 underwent revision hemiarthroplasty with conversion to total hip arthroplasty for left hip femoral component aseptic loosening by Elijah Stover MD at [id number] [employer] Disability Index: 47% (21/45; severe disability [...] severe disability ) on 03/12/2012.12multiple surgeries--first in [id number] score 6 on 07/29/17 Social History Social History Type Response Smoking Status Former smoker; Other: quit 3 5 years ago; entered on: 11/11/17 Sex Male
--- OUTSIDE RECORDS SUMMARY | 2022-02-13 19:17 | XMS_ITS | Continuity of Care Document ---
:1945 Author Organization [facility] Address [address] [place] [address]- Care Team Providers Name Role Phone Po Thania FALK Primary Care Physician [id number] Date(s[facility] 03/13/21 - 04/12/21 [facility] [address] [place] [address]- Allergies, Adverse Reactions, Alerts Substance Reaction Severity [...] On: 07/28/2020 Pharmacy [facility]: [facility] DX: M54.4 mechanical low back [...] thumb by Fred Turk M.D. at [facility].3On 04/12/2015 underwent repining trapeziometacarpal joint reconstruction, right thumb status post revision trapeziometacarpal joint arthroplasty, right thumb, with loss of pin fixation by Fred Tukr M.D. at [facility].4On 07/03/16 underwent revision failed arthroplasty, right thumb for failed revision of trapeziometacarpal joint arthroplasty by Fred Turk M.D. at [facility].5On04/09/17 underwent left hip replacement for left hip fracture by Jos Locke at [facility] 611/13/19 underwent revision hemiarthroplasty with conversion to total hip arthroplasty for left hip femoral component aseptic loosening by Elijah Stover MD at [id number] [employer] Disability Index: 47% (21/45; severe disability [...] severe disability ) on 03/12/2012.12multiple surgeries--first in [id number] score 6 on 07/29/17 Social History Social History Type Response Smoking Status Former smoker; Other: quit 3 5 years ago; entered on: 11/11/17 Sex Male
--- OUTSIDE RECORDS SUMMARY | 2022-02-13 19:17 | XMS_ITS | Continuity of Care Document ---
:1945 Author Organization [facility] Address [address] [place] [address]- Care Team Providers Name Role Phone Po Thania FALK Primary Care Physician [place] [facility] [place] 12/15/20 - 01/14/21 [facility] [address] [place] [address]- Allergies, Adverse Reactions, Alerts Substance Reaction Severity [...] tabs/day., # 84 tablet, 0 Refills, Maintenance, 01/12/21 18:06:00 EDT, [facility], Partial fill upon patient request, 1 - 2 tablets By Mouth Every 4 hours,Instr:PRN pain, MAX 9 tabs/... Start Date: 01/12/21 Status: Orderedacetaminophen/butalbital/caffeine 325 mg-50 mg-40 mg oral [...] 4 Refills, Maintenance, 02/17/20 13:49:00 EDT, Tablet, [facility], 187, cm, 02/17/20 11:58:00 EDT, [...] 0, Maintenance, Updated On: 07/28/2020 Pharmacy I: [facility] DX: M54.4 mechanical low back [...] right thumb by Fred Turk M.D. at [facility].3On 04/12/2015 underwent repining trapeziometacarpal joint reconstruction, right thumb status post revision trapeziometacarpal joint arthroplasty, right thumb, with loss of pin fixation by Fred Turk M.D. 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
--- OUTSIDE RECORDS SUMMARY | 2022-02-13 19:17 | XMS_ITS | Continuity of Care Document ---
:1945 Author Organization [facility] Address [address] [place] [address]- Care Team Providers Name Role Phone Po Thania FALK Primary Care Physician En[place] [facility] [place]s): 09/09/20 - 10/09/20 [facility] [address] [place] [address] Allergies, Adverse Reactions, Alerts Substance Reaction [...] can have partial fills on request [facility] [id number] #[id number], # 25 tablet, 0 Refills, Maintenance, 02/17/20 14:00:00 EDT, Tablet, [facility] 187, cm, 02/17/20 11:... Start Date: 02/17/20 Status: OrderedColace Capsule 100 mg, 1, capsule, By Mouth, 2 times a day, Refills 0, Maintenance, 11/16/19 9:33:00 EDT Start Date: 11/16/19 Status: OrderedControlled Substance Agreement Controlled Substance Agreement, See Instructions, # 1 each, Refills 0, Tot. Refills 0, Maintenance, Updated On: 07/28/2020 Pharmacy I: [facility] DX: M54.4 mechanical low back pain, M53.3SI joint pain, 08/02/20 9:14:00 EDT, Supply Start Date: 08/02/20 Status: Orderedcyanocobalamin 1000 mcg/ml injectable solution INJECT 1000 MCG. SUBCUTANEOUSLY EVERY 4 WEEKS. Start Date: 05/12/20 Status: Ordereddivalproex sodium 250 mg oral enteric coated tablet = 250 mg, By Mouth, 2 times a day, # 60 tablet, 2 Refills, Maintenance, 02/17/20 13:50:00 EDT, Tablet, [facility] 187, cm, 02/17/20 11:58:00 EDT, [...] EDT, Route to Pharmacy Electronically, [facility], 187, cm, 02/17/20 11:58:00 EDT, Height, 102, kg, 02/12/20 12:29:00 EDT... Start Date: 02/17/20 Status: Orderedvenlafaxine 150 mg oral capsule, extended release 150 mg, 1, capsule, By Mouth, Daily, # 30 capsule, Refills 0, Tot. Refills 0, Maintenance, 02/17/20 13:50:00 EDT, Route to Pharmacy Electronically, [facility], 187, cm, 02/17/20 11:58:00 EDT, [...] right thumb by Fred Turk M.D. at [facility].3On 04/12/2015 underwent repining trapeziometacarpal joint reconstruction, right thumb status post revision trapeziometacarpal joint arthroplasty, right thumb, with loss of pin fixation by Fred Turk M.D. 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
--- OUTSIDE RECORDS SUMMARY | 2022-02-13 19:18 | XMS_ITS | Continuity of Care Document ---
:1945 Author Organization [facility] Address [address] [place] [address]- Care Team Providers Name Role Phone Po Thania FALK Primary Care Physician [place] [facility] [place] [facility] [place] [id number] Date(s): 10/11/21 - 11/10/21 [facility] [address] [place] [address]- Attending Physician: Eva Nugent Allergies, Adverse Reactions, [...] On: 07/28/2020 Pharmacy I: [facility] DX: M54.4 mechanical low back pain, [...] left hip fracture by Jos Locke at [facility] 6On 11/13/19 underwent 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
--- OUTSIDE RECORDS SUMMARY | 2022-02-13 19:18 | XMS_ITS | Continuity of Care Document ---
:1945 Author Organization [facility] Address [address] [place] [address]- Care Team Providers Name Role Phone Po Thania FALK Primary [facility] Phys[id number] Date(s): 11/15/20 - 12/15/20 [facility] [address] [place], [place] [address] Allergies, Adverse Reactions, Alerts Substance [...] have partial fills on request [facility] [id number] #[id number], # 25 tablet, 0 Refills, Maintenance, 02/17/20 14:00:00 EDT, Tablet, [facility], 187, cm, 02/17/20 11:... Start Date: 02/17/20 Status: OrderedBelbuca 150 mcg buccal film See Instructions, [address] film on inside of cheek and avoid food or drink until completely dissolved, # 28 film, 0 Refills, Maintenance, 12/07/20 12:17:00 EDT, [facility], Partial fill upon patient request [...] 0, Maintenance, Updated On: 07/28/2020 Pharmacy I: [facility] DX: M54.4 mechanical low back pain, [...] 02/17/20 13:50:00 EDT, Route to Pharmacy Electronically, [facility], 187, cm, 02/17/20 11:58:00 EDT, Height, 102, kg, 02/12/20 12:29:00 EDT... Start Date: 02/17/20 Status: Orderedvenlafaxine 150 mg oral capsule, extended release 150 mg, 1, capsule, By Mouth, Daily, # 30 capsule, Refills 0, Tot. Refills 0, Maintenance, 02/17/20 13:50:00 EDT, Route to Pharmacy Electronically, [facility], 187, cm, 02/17/20 11:58:00 EDT, [...] right thumb by Fred Turk M.D. at [facility].3On 04/12/2015 underwent repining trapeziometacarpal joint reconstruction, right thumb status post revision trapeziometacarpal joint arthroplasty, right thumb, with loss of pin fixation by Fred Turk M.D. 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 by Elijah Stover MD at [id number] Oswestry Disability Index: 47% (21/45; severe disability ) on 03/03/20; updated [place] Back Pain Disability Scale score: 4 on 03/03/20.8Updated Oswestry Disability Index: 40% moderate disability and [place] Back Pain Disability Scale: 27 on 10/08/18.9Updated Oswestry Disability Index: 50% ( severe disability ) on 07/29/17; updated [place] Back Pain Disability Scale score: 52 on 07/29/17.10Updated Oswestry Disability Index: 36% moderate disability and [place] Back Pain Disability Scale: 24 on 08/25/2015.11Initial [place] Pain Disability Scale: 27 on 03/12/2012; initial Oswestry Disability Index: 54% ( severe disability ) on 03/12/2012.12multiple surgeries--first in [id number] score 6 on 07/29/17 Social History Social History Type Response Smoking Status Former smoker; Other: quit 3 5 years ago; entered on: 11/11/17 Sex Male
--- OUTSIDE RECORDS SUMMARY | 2022-02-13 19:18 | XMS_ITS | Continuity of Care Document ---
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
--- OUTSIDE RECORDS SUMMARY | 2022-02-13 19:18 | XMS_ITS | Continuity of Care Document ---
:1945 Author Organization [facility] Address [address] [place] [address]- Care Team Providers Name Role Phone Po Thania FALK [id number] Date(s[facility] 12/05/20 - [facility] [address] [place] [address]- Allergies, Adverse Reactions, Alerts Substance Reaction Severity [...] Pt can have partial fills on request [facility] [id number] #[id number], # 25 tablet, 0 Refills, Maintenance, 02/17/20 14:00:00 EDT, Tablet, [facility], 187, cm, 02/17/20 11:... Start Date: 02/17/20 Status: OrderedBelbuca 150 mcg buccal film 1 film = 150 mcg, By Mouth, Every 12 hours, place film on inside of cheek and avoid food or drink until completely dissolved, # 56 film, 1 Refills, Maintenance, 12/19/20 15:20:00 EDT, [facility], 187, cm, 11/18/20 8:45:00 EDT, Height, 102... Start Date: 12/19/20 Status: OrderedBlu-Emu Super Strength topical cream Topically, [...] 0, Maintenance, Updated On: 07/28/2020 Pharmacy I: [facility] DX: M54.4 mechanical low back pain, [...] 03/03/20 Status: Orderedmeclizine 12.5 mg oral tablet TAKE [...] thumb by Fred Turk M.D. at [facility].3On 04/12/2015 underwent repining trapeziometacarpal joint reconstruction, right thumb status post revision trapeziometacarpal joint arthroplasty, right thumb, with loss of pin fixation by Fred Turk M.D. 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 at [facility].5Onabout 04/09/17 underwent left hip replacement for left hip fracture by Jos Locke at 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
--- OUTSIDE RECORDS SUMMARY | 2022-02-13 19:18 | XMS_ITS | Continuity of Care Document ---
:1945 Author Organization [facility] Address [address] [place] [address]- Care Team Providers Name Role Phone Po Thania FALK [id number] Date(s): 11/16/20 - 12[facility]16/[facility] [address] [place] [address]- Allergies, Adverse Reactions, Alerts Substance Reaction Severity [...] Pt can have partial fills on request [facility] [id number] #[id number], # 25 tablet, 0 Refills, Maintenance, 02/17/20 14:00:00 EDT, Tablet, [facility], 187, cm, 02/17/20 11:... Start Date: 02/17/20 Status: OrderedBelbuca 150 mcg buccal film See Instructions, [address] film on inside of cheek and avoid food or drink until completely dissolved, # 28 film, 0 Refills, Maintenance, 12/07/20 12:17:00 EDT, [facility], Partial fill upon patient request [...] 0, Maintenance, Updated On: 07/28/2020 Pharmacy I: [facility] DX: M54.4 mechanical low back pain, [...] 02/17/20 13:50:00 EDT, Route to Pharmacy Electronically, [facility], 187, cm, 02/17/20 11:58:00 EDT, Height, 102, kg, 02/12/20 12:29:00 EDT... Start Date: 02/17/20 Status: Orderedvenlafaxine 150 mg oral capsule, extended release 150 mg, 1, capsule, By Mouth, Daily, # 30 capsule, Refills 0, Tot. Refills 0, Maintenance, 02/17/20 13:50:00 EDT, Route to Pharmacy Electronically, [facility], 187, cm, 02/17/20 11:58:00 EDT, [...] Fred Turk M.D. 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
--- OUTSIDE RECORDS SUMMARY | 2022-02-13 19:18 | XMS_ITS | Continuity of Care Document ---
:1945 Author Organization [facility] Address [address] [place] [address]- Care Team Providers Name Role Phone Thania Almaraz MD Primary Care Physician Encounter [facility] Date(s): 06/10/20 - 09/17/[facility] [address] [place] [id number] Attending Physician: Dina Lara MD Admitting [...] can have partial fills on request [facility] [id number] #[id number], # 25 tablet, 0 Refills, Maintenance, 02/17/20 14:00:00 EDT, Tablet, [facility] 187, cm, 02/17/20 11:... Start Date: 02/17/20 Status: OrderedColace Capsule 100 mg, 1, capsule, By Mouth, 2 times a day, Refills 0, Maintenance, 11/16/19 9:33:00 EDT Start Date: 11/16/19 Status: OrderedControlled Substance Agreement Controlled Substance Agreement, See Instructions, # 1 each, Refills 0, Tot. Refills 0, Maintenance, Updated On: 07/28/2020 Pharmacy I: [email or web address] DX: M54.4 mechanical low back pain, M53.3SI joint pain, 08/02/20 9:14:00 EDT, Supply Start Date: 08/02/20 Status: Orderedcyanocobalamin 1000 mcg/ml injectable solution INJECT 1000 MCG. SUBCUTANEOUSLY EVERY 4 WEEKS. Start Date: 05/12/20 Status: Ordereddivalproex sodium 250 mg oral enteric coated tablet = 250 mg, By Mouth, 2 times a day, # 60 tablet, 2 Refills, Maintenance, 02/17/20 13:50:00 EDT, Tablet, [facility] 187, cm, 02/17/20 11:58:00 EDT, [...] 10:21:00 EDT,... Start Date: 09/13/20 Status: Orderedergocalciferol 21135 iu oral capsule See Instructions, Start from [...] tablet, 0 Refills,Maintenance, 09/12/20 11:05:00 EDT, Tablet, [facility], [...] right thumb by Fred Turk M.D. at [facility].3On 04/12/2015 underwent repining trapeziometacarpal joint reconstruction, right thumb status post revision trapeziometacarpal joint arthroplasty, right thumb, with loss of pin fixation by Fred Turk M.D. at [facility].4On 07/03/16 underwent revision failed arthroplasty, right thumb for failed revision of trapeziometacarpal joint arthroplasty by Fred Turk M.D. 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
--- OUTSIDE RECORDS SUMMARY | 2022-02-13 19:18 | XMS_ITS | Continuity of Care Document ---
:1945 Author Organization [facility] Address [address] [place] [address]- Care Team Providers Name Role Phone Po Thania FALK [id number] Date(s): 12/12/20 - [facility]/11[facility] [address] [place], [place] [address] Allergies, Adverse Reactions, Alerts [...] can have partial fills on request [facility] [id number] #[id number], # 25 tablet, 0 Refills, Maintenance, 02/17/20 14:00:00 EDT, Tablet, [facility], 187, cm, 02/17/20 11:... Start Date: 02/17/20 Status: OrderedBelbuca 150 mcg buccal film 1 film = 150 mcg, By Mouth, Every 12 hours, place film on inside of cheek and avoid food or drink until completely dissolved, # 56 film, 1 Refills, Maintenance, 12/19/20 15:20:00 EDT, [facility], 187, cm, 11/18/20 8:45:00 EDT, [...] 0, Maintenance, Updated On: 07/28/2020 Pharmacy I: [facility] DX: M54.4 mechanical low back pain, [...] right thumb by Fred Turk M.D. at [facility].3On 04/12/2015 underwent repining trapeziometacarpal joint reconstruction, right thumb status post revision trapeziometacarpal joint arthroplasty, right thumb, with loss of pin fixation by Fred Turk M.D. at [facility].4On 07/03/16 underwent revision failed arthroplasty, right thumb for failed revision of trapeziometacarpal joint arthroplasty by Fred Turk M.D. 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
--- OUTSIDE RECORDS SUMMARY | 2022-02-13 19:18 | XMS_ITS | Continuity of Care Document ---
:1945 Author Organization [facility] Address [address] [place] [address]- Care Team Providers Name Role Phone Po Thania FALK Primary Care Physician Encounter [facility] [place] [place] Date(s): 08/02/20 - 09/01/20 [facility] [address] [place] [id number] Allergies, Adverse Reactions, Alerts Substance [...] can have partial fills on request [facility] [id number] #[id number], # 25 tablet, 0 Refills, Maintenance, 02/17/20 14:00:00 EDT, Tablet, [facility] 187, cm, 02/17/20 11:... Start Date: 02/17/20 Status: OrderedColace Capsule 100 mg, 1, capsule, By Mouth, 2 times a day, Refills 0, Maintenance, 11/16/19 9:33:00 EDT Start Date: 11/16/19 Status: OrderedControlled Substance Agreement Controlled Substance Agreement, See Instructions, # 1 each, Refills 0, Tot. Refills 0, Maintenance, Updated On: 07/28/2020 Pharmacy I: [facility] DX: M54.4 mechanical low back pain, M53.3SI joint pain, 08/02/20 9:14:00 EDT, Supply Start Date: 08/02/20 Status: Orderedcyanocobalamin 1000 mcg/ml injectable solution INJECT 1000 MCG. SUBCUTANEOUSLY EVERY 4 WEEKS. Start Date: 05/12/20 Status: Ordereddivalproex sodium 250 mg oral enteric coated tablet = 250 mg, By Mouth, 2 times a day, # 60 tablet, 2 Refills, Maintenance, 02/17/20 13:50:00 EDT, Tablet, [facility] 187, cm, 02/17/20 11:58:00 EDT, Height, 102, kg, 02/12/20 12:29:00 EDT, Dry Weight Start Date: 02/17/20 Status: Orderedergocalciferol 46915 iu oral capsule See Instructions, Start from [...] 02/17/20 13:50:00 EDT, Route to Pharmacy Electronically, [facility], 187, cm, 02/17/20 11:58:00 EDT, Height, 102, kg, 02/12/20 12:29:00 EDT... Start Date: 02/17/20 Status: Orderedvenlafaxine 150 mg oral capsule, extended release 150 mg, 1, capsule, By Mouth, Daily, # 30 capsule, Refills 0, Tot. Refills 0, Maintenance, 02/17/20 13:50:00 EDT, Route to Pharmacy Electronically, [facility], 187, cm, 02/17/20 11:58:00 EDT, [...] right thumb by Fred Turk M.D. at [facility].3On 04/12/2015 underwent repining trapeziometacarpal joint reconstruction, right thumb status post revision trapeziometacarpal joint arthroplasty, right thumb, with loss of pin fixation by Fred Turk M.D. at [facility].4On 07/03/16 underwent revision failed arthroplasty, right thumb for failed revision of trapeziometacarpal joint arthroplasty by Fred Turk M.D. 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
--- OUTSIDE RECORDS SUMMARY | 2022-02-13 19:18 | XMS_ITS | Continuity of Care Document ---
:1945 Author Organization [facility] Address [address] [place] [id number]- Care Team Providers Name Role Phone Po Thania FALK Primary Care Physician [facility] [facility] Date(s): 12/10/19 - 12/14/[address] [address]- [facility] Encounter Diagnosis Dislocated hip (Final) - 12/09/19 Discharge Disposition: A-Transfer VNA/Home Health Attending Physician: Elijah Stover MD Admitting Physician: Elijah Stover MD Referring Physician: Not on Staff, Referring [...] 4 hours as needed for pain, # 60tablet, 0 Refills, Acute 12/21/19 8:53:00 EDT, 12/14/19 8:53:00 EDT, Tablet, Partial fill upon patient request Start Date: 12/14/19 Stop Date: 12/21/19 Status: OrderedamLODIPine 10 mg oral tablet 5 [...] EDT, EC Tablet Start Date: 11/06/19 Status: Orderedgabapentin 100 mg oral capsule 100 mg, 1, capsule, By Mouth, 2 times a day, Refills 0, Maintenance, 12/14/19 9:08:00 EDT Start Date: 12/14/19 Status: OrderedHeparin Inj 1 mL = 5,000 [...] right thumb by Fred Turk M.D. at [facility].3On 04/12/2015 underwent repining trapeziometacarpal joint reconstruction, right thumb status post revision trapeziometacarpal joint arthroplasty, right thumb, with loss of pin fixation by Fred Turk M.D. at [facility].4On 07/03/16 underwent revision failed arthroplasty, right thumb for failed revision of trapeziometacarpal joint arthroplasty by Fred Turk M.D. 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 by Elijah Stover MD at [id number] Oswestry Disability Index: 40% moderate disability and [place] Back Pain Disability Scale: 27 on 10/08/18.8Updated Oswestry Disability Index: 50% ( severe disability ) on 07/29/17; updated [place] Back Pain Disability Scale score: 52 on 07/29/17.9Updated Oswestry Disability Index: 36% moderate disability and [place] Back Pain Disability Scale: 24 on 08/25/2015.10Initial [place] Back Pain Disability Scale: 27 on 03/12/2012; initial [place] Disability Index: 54% ( severe disability ) on 03/12/2012.11multiple surgeries--first in [id number] score 6 on 07/29/17 Results Orders for Microbiology Reports Name Date Anaerobic Culture (ANAEROBIC CULTURE) 12/11/19 Sterile Body Fluid Culture W/ Gram Smear (STERILE FLUI D CULT.) 12/11/19 Microbiology Reports TEST:Anaerobic Culture STATUS:Unauthenticated BODY SITE: SOURCE:FLUID COLLECTED DATE/TIME:12/11/19 11:50 AMAnaerobic Culture SPECIMEN DESCRIPTION : FLUID LEFT HIP SPECIAL REQUESTS : NONE CULTURE : NO ANAEROBES ISOLATED SO FAR. REPORT STATUS : PRELIMINARY REPORT TEST:Sterile Fluid Culture STATUS:Auth (Verified) BODY SITE: SOURCE:FLUID COLLECTED DATE/TIME:12/11/19 11:50 AMSterile Fluid Culture SPECIMEN DESCRIPTION : FLUID LEFT HIP FLUID SPECIAL REQUESTS : NONE GRAM STAIN : 4+ RBC'S 2+ POLYMORPHONUCLEAR LEUKOCYTES NO ORGANISMS SEEN CULTURE : NO GROWTH 2 DAYS REPORT STATUS : FINAL 12/13/2019Radiology Reports Exam Date Time Procedure Performing Provider Status 12/11/19 11:55 AM XR Aspiration Hip Left Tammie Oconnell; Auth ( Verified) Notes:(XR Aspiration Hip Left) Reason For Exam: Other:;? left hip infection RESULT: XR Aspiration Hip Left Fluoroscopically Guided Left hip Aspiration. History: Status post left hip arthroplasty; pain FLUOROSCOPY TIME: 0.6 minutes Dose Area Product (DAP): 651.9 uGy*m2 Procedure performed by Deonte Rivero PA-C. The procedure and risks were explained to the patient. Informed consent was obtained and a formal timeout procedure was performed. Utilizing the fluoroscope, an appropriate site for skin puncture was determined. The patient was draped and prepared in a sterile fashion. The skin, subcutaneous tissues, a nd musculature were generously infiltrated with local 1% Lidocaine. A 20 gauge spinal needle was introduced into the left hip joint using fluoroscopic guidance. Trace amount of serosanguineous fluid was aspirated and subsequently, a small amount of Isovue-300 was injected to confirm intra-articular pos itioning. Spot radiograph obtained for documentation (image 2). Spinal needle was then repositioned for a second attempt at further aspiration closer to the neck of the arthroplasty and again only a trace amount of serosanguineous fluid was aspirated. An additional small amount of Isovue-300 was injected to again confirm intra-articular positioning. Spot radiograph obtained for documentation (3). Thespinal needle was removed and the entrance site was dressed with a bandage. The patient tolerated the procedure well without any immediate complications. Impression: Successful left hip aspiration yielding trace serosanguineous fluid. The aspirate was sent to the laboratory for the requested analysis. By undersigning and finalizing the report, the attending radiologist confirms he/she has personally reviewed and interpreted the images and agrees with the description of the findings. I have personally reviewed the images and I agree with this report. WSN: [id number] Ordering Physician: Vidhya Florence Dictated By: [place] Dictated Date/Time: 12/11/19 12:34 p Reviewed By: Arvind Williamson MD Signed By: Arvind Williamson MD Signed Date/Time: 12/11/19 12:39 pm Transcribed By: WONG Transcribed Date/Time: 12/11/19 11:51 am Exam Date Time Procedure Performing Provider Status 12/10/19 12:34 PM Chest 2 Views Frontal and Lat Emerita Romero; Auth (Verified) Notes:(Chest 2 Views Frontal and Lat) Reason For Exam: h/o Covid;Shortness of BreathRESULT: Chest 2 Views Frontal and Lat Chest 2 Views Frontal and Lat Reason: Shortness of Breath; h o positive COVID test 11/15 and 11/26/2019; Clinical Question(s): Atelectasis COMPARISON: 04/05/2017 FINDINGS: LINES AND TUBES: None. LUNGS AND PLEURA: Low lung volumes with bilateral atelectasis. Scattered increased interstitial markings are noted in the lower portion of each lung but no definite airspace process is present. Stable right apical pleural thickening. No pleural effusion. No pneumothorax. HEART, MEDIASTINUM AND NANNETTE: Heart is normal in size. Normal mediastinal and hilar contour. BONES AND SOFT TISSUES: No acute abnormality. IMPRESSION: Low lung volumes with bibasilar atelectasis. Stable right apical pleural thickening. WSN: [id number] Ordering Physician: Vidhya Florence Dictated By: Evens Reyna MD Dictated Date/Time: 12/10/19 12:41 p Reviewed By: Evens Reyna MD Signed By: Evens Reyna MD Signed Date/Time: 12/10/19 12:41 pm Transcribed By: WONG Transcribed Date/Time: 12/10/19 12:35 pm Exam Date Time Procedure Performing Provider Status 12/09/19 10:40 PM XR Femur 2 Views Left Shorty Cardozo; Edwige (Michael ified) Notes:(XR Femur 2 Views Left) Reason For Exam: PainRESULT: Femur 2 Views Left XR Hip w/Pelvis 2-3 View Left, Femur 2 Views Left INDICATION/CLINICAL QUESTION: Reason: Other:; Clinical Question(s): Position Fixation. / Position/Fixation COMPARISON: Same day. TECHNIQUE: AP pelvis. AP and crosstable lateral left hip. AP and lateral views of the left femur. FINDINGS: There is no fracture or focal lesion of the bony pelvis. The sacroiliac joints show no gross abnormality. Right hip joint and right proximal femur normal.. The previously noted dislocation of the left total hip replacement has been satisfactory reduced. There is no fracture of the left femur. . IMPRESSION: 1. Satisfactory reduction of the previously dislocated left total hip replacement.. 2. No fracture bony pelvis or left femur. WSN: [id number] Ordering Physician: Cuba Mckeon Dictated By: Sancho Webster MD Dictated Date/Time: 12/09/19 10:52 p Reviewed By: Sancho Webster MD Signed By: Sancho Webster MD Signed Date/Time: 12/09/19 10:52 pm Transcribed By: WONG Transcribed Date/Time: 12/09/19 10:49 pm Exam Date Time Procedure Performing Provider Status 12/09/19 10:40 PM XR Hip w/Pelvis 2-3 View Left Shorty Cardozo; [facility] (Verified) Notes:(XR Hip w/Pelvis 2-3 View Left) Reason For Exam: Other:RESULT: XR Hip w/Pelvis 2-3 View Left XR Hip w/Pelvis 2-3 View Left, Femur 2 Views Left INDICATION/CLINICAL QUESTION: Reason: Other:; Clinical Question(s): Position Fixation. / Position/Fixation COMPARISON: Same day. TECHNIQUE: AP pelvis. AP and crosstable lateral left hip. AP and lateral views of the left femur. FINDINGS: There is no fracture or focal lesion of the bony pelvis. The sacroiliac joints show no gross abnormality. Right hip joint and right proximal femur normal.. The previously noted dislocation of the left total hip replacement has been satisfactory reduced. There is no fracture of the left femur. . IMPRESSION: 1. Satisfactory reduction of the previously dislocated left total hip replacement.. 2. No fracture bony pelvis or left femur. WSN: [id number] Ordering Physician: Cuba Mckeon Dictated By: Sancho Webster MD Dictated Date/Time: 12/09/19 10:52 p Reviewed By: Sancho Webster MD Signed By: Sancho Webster MD Signed Date/Time: 12/09/19 10:52 pm Transcribed By: WONG Transcribed Date/Time: 12/09/19 10:49 pm Exam Date Time Procedure Performing Provider Status 12/09/19 7:30 PM Pelvis 1 or 2 Views Tammie Carrera; Auth (Verif ied) Notes:(Pelvis 1 or 2 Views) Reason For Exam: PainRESULT: Pelvis 1 or 2 Views Pelvis 1 or 2 Views Hx of Present Illness: Pt just discharge home today s p total left hip replacement. Camp a loud popfrom left hip and then had severe pain. Reporting 10 10 pain and mild nausea.; Reason: Pain; COMPARISON: Multiple priors, most recent from November 21, 2019 FINDINGS: There has been dislocation of the prosthetic femoral head out of the cup. The proximal femoral head prosthesis is located significantly proximally and laterally. No fracture is identified. Extensive postoperative changes in the pelvis are seen. IMPRESSION: Dislocation of femoral head out of the cup. WSN: [id number] Ordering Physician: Olivia Waston Dictated By: Denis Farias MD Dictated Date/Time: 12/09/19 7:48 pm Reviewed By: Denis Farias MD Signed By: Denis Farias MD Signed Date/Time: 12/09/19 7:48 pm Transcribed By: WONG Transcribed Date/Time: 12/09/19 7:42 pm Vital Signs Most recent to oldest 1 2 3 [Reference Range]: Height 182 cm 182 cm 182 cm (12/14/19 8:27 AM) (12/13/19 7:00 PM) (12/13/19 7:5 2 AM) Weight 116 kg (12/10/19 9:49 AM) Oxygen Saturation [94-100 %] 98 % 93 % 95 % (12/14/19 8:27 AM) *L* (12/13/19 7:52 AM) (12/13/19 7:00 PM) Pulse Rate [55-90 bpm] 76 bpm 88 bpm 80 bpm (12/14/19 8:27 AM) (12/13/19 7:00 PM) (12/13/19 7:5 2 AM) Body Mass Index [18.5-24.99] 35.02 *>HHI* (12/10/19 9:49 AM) Blood Pressure [90-138/55-84 111/60 mm Hg 120/74 mm Hg 112 /74 mm Hg mm Hg] (12/14/19 8:27 AM) (12/14/19 8:07 AM) (12/13/19 7:0 0 PM) Respiratory Rate [16-30 18 br/min 20 br/min 18 br/mi n br/min] (12/14/19 2:44 PM) (12/14/19 1:53 PM) (12/14/19 10: 04 AM) Temperature [96.8-100.4 DegF] 98.2 DegF 98.2 DegF 97 .1 DegF (12/14/19 8:27 AM) (12/13/19 7:00 PM) (12/13/19 7:5 2 AM) Liters per Minute 2 L/min 3 L/min 2 L/min (12/10/19 8:14 AM) (12/09/19 9:31 PM) (12/09/19 6:1 1 PM) Mode of Delivery (Oxygen) Room air Room air Room a ir (12/14/19 8:27 AM) (12/13/19 7:00 PM) (12/13/19 7:5 2 AM) Blood pressure sites Arm, left Arm, left Arm, left (12/14/19 8:27 AM) (12/13/19 7:00 PM) (12/13/19 7:5 2 AM) Temperature Route Oral Oral Oral (12/14/19 8:27 AM) (12/13/19 7:00 PM) (12/13/19 7:5 2 AM) Dry Weight 116 kg (12/10/19 9:49 AM) Social History Social History Type Response Smoking Status Former smoker; Other: quit 3 5 years ago; entered on: 11/11/17 Sex Male
--- OUTSIDE RECORDS SUMMARY | 2022-02-13 19:18 | XMS_ITS | Continuity of Care Document ---
:1945 Author Organization [facility] Address [address] [place] [address]- Care Team Providers Name Role Phone Po Thania FALK [id number] Date(s): 12/16/19 - 12/16/[address] [address] Discharge Disposition: A-D/C Walkout Attending Physician: Not on Staff, Attending MD Admitting Physician: Not on Staff, Admitting MD Referring Physician: Not on Staff, Referring [...] right thumb by Fred Turk M.D. at [facility].3On 04/12/2015 underwent repining trapeziometacarpal joint reconstruction, right thumb status post revision trapeziometacarpal joint arthroplasty, right thumb, with loss of pin fixation by Fred Turk M.D. at [facility].4On 07/03/16 underwent revision failed arthroplasty, right thumb for failed revision of trapeziometacarpal joint arthroplasty by Fred Turk M.D. at [facility].5On/04/09/17 underwent left hip replacement for left hip fracture by Jos Locke at [facility] 6On 11/13/19 underwent revision hemiarthroplasty with conversion to total hip arthroplasty for left hip femoral component aseptic loosening by Elijah Stover MD at [id number] Oswestry Disability Index: 40% moderate disability and [place] Back Pain Disability Scale: 27 on 10/08/18.8Updated Oswestry Disability Index: 50% ( severe disability ) on 07/29/17; updated [place] Pain Disability Scale score: 52 on 07/29/17.9Updated Oswestry Disability Index: 36% moderate disability and [place] Back Pain Disability Scale: 24 on 08/25/2015.10Initial [place] Back Pain Disability Scale: 27 on 03/12/2012; initial Oswestry Disability Index: 54% ( severe disability ) on 03/12/2012.11multiple surgeries--first in [id number] score 6 on 07/29/17 Vital Signs Most recent to oldest [Reference Range]: 1 Oxygen Saturation [94-100 %] 97 % (12/16/19 4:20 PM) Pulse Rate [55-90 bpm] 102 bpm *H* (12/16/19 4:20 PM) Blood Pressure [90-138/55-84 mm Hg] 113/75 mm Hg (12/16/19 4:20 PM) Respiratory Rate [16-30 br/min] 20 br/min (12/16/19 4:20 PM) Temperature [96.8-100.4 DegF] 98.0 DegF (12/16/19 4:20 PM) Mode of Delivery (Oxygen) Room air (12/16/19 4:20 PM) Blood pressure sites Arm, right (12/16/19 4:20 PM) Temperature Route Oral (12/16/19 4:20 PM) Social History Social History Type Response Smoking Status Former smoker; Other: quit 3 5 years ago; entered on: 11/11/17 Sex Male
--- OUTSIDE RECORDS SUMMARY | 2022-02-13 19:18 | XMS_ITS ---
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 Active 801 48861 Problem Diverticulitis of K57.32 Active 11 1461330 large intestine without perforation or abscess without bleeding Problem History of Z86.010 Active 202597625 adenomatous polyp of colon Problem Nausea R11.0 Active 235392348 Problem 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 Active 268792 04 adenoma of colon Problem Diverticulosis of K57.30 Active 73 8438695 colon Problem Colon adenomas D12.6 Active 05527 004 Problem Gastroesophageal K21.9 Active 266 314705 reflux disease without esophagitis Problem Pharyngeal dysphagia R13.13 Active 85204465992013 Problem Oropharyngeal R13.12 Active 926423 02 dysphagia Problem Constipation K59.00 Active 1484321 8 ALLERGIES Substance Reaction Event Type Date Status Soma Unknown Drug Allergy May, Active ENCOUNTERS Encounter Location Date Diagnosis [address] Jan, [facility] [address] [place] [address] Nov, [facility] [address] [place] [address] [facility] [place] [address] [place] [address] Jan, Colon polyps K6 3.5 ; [place] [id number] Diverticul osis of colon K57.30 and Inter nal hemorrhoids K64. 8 [facility] [address] Dec, [facility] [address] [place] [address] [facility] [address] Sep, [facility] [address] [place] [address] [facility] [address] Sep, [facility] [address] [place] [address] [facility] [address] Sep, [facility] [address] [place] [address] [facility] [address] Sep, [facility] [address] [place] [address] [facility] [place] [address] [place] [address] Sep, Hiatal hernia K 44.9 ; [place] [phone] Gastritis K29.70 ; Nausea R11.0 and Gastro esophageal reflux K21.9 [facility] [address] Sep, [facility] [address] [place] [address] [facility] [address] August, [facility] [address] [place] [address] [facility] [address] Jul, [facility] [address] [place] [address] [facility] [address] May, [facility] [address] [place] [address] [facility] [address] May, Constipa tion K59.00 ; [facility] [address] [place] [address] malignant neopla sm of colon Z12.11 ; Gastroe sophageal reflux disease w ithout esophagitis K21. 9 ; Nausea R11.0 and Histor y of adenomatous poly p of colon Z86.010 [facility] [address] May, [facility] [address] [place] [address] [facility] [address] Nov, [facility] [address] [place] [address] [facility] [address] Nov, [facility] [address] [place] [address] [facility] [address] Oct, [facility] [address] [place] [address] [facility] [address] Sep, [facility] [address] [place] [address] [facility] [address] Sep, [facility] [address] [place] [address] [facility] [address] Sep, [facility] [address] [place] [address] [facility] [address] Jun, Orophary ngeal dysphagia [facility] [address] [place] R13.12 [place] [address] adenomatous poly p of colon Z86.010 [facility] [address] Apr, [facility] [address] [place] [address] [facility] [place] [address] [facility] Dec, Colon cancer sc bridget Plunkett [place] [id number] Z12.11 ; H istory of colon polyps Z86.010 a nd Colon polyp K63.5 [facility] [address] Dec, [facility] [address] [place] [address] [facility] [address] Oct, [facility] [address] [place] [address] [facility] [address] Oct, [facility] [address] [place] [address] [facility] [address] Sep, Pharynge al dysphagia R13.13 [facility] [address] [place] ; Gastroes ophageal reflux [address] disease without esophagitis K21.9 ; History of adenomatous poly p of colon Z86.010 and Enco unter for screening for ma lignant neoplasm of colo n Z12.11 [facility] [address] May, [facility] [address] [place] [address] [facility] [address] Sep, [facility] [address] [place] [address] [facility] [place] [address] [facility] Sep, [place] [id number] [facility] [address] Sep, [facility] [address] [place] [address] [facility] [address] Sep, [facility] [address] [place] [address] [facility] [address] May, Gastroes ophageal reflux [facility] [address] [place] disease wi thout esophagitis [address] K21.9 ; History of adenomatous poly p of colon Z86.010 and Enco unter for screening for ma lignant neoplasm of colo n Z12.11 [facility] [address] May, [facility] [address] [place] [address] [facility] [address] Apr, [facility] [address] [place] [address] [facility] [address] Feb, [facility] [address] [place] [address] [facility] [address] Oct, [facility] [address] [place] [address] [place] [address] Sep, [facility] [address] [place] [address] [facility] [place] [address] [place] [address] Sep, [place] [id number] [place] [address] Jun, Gastroes ophageal reflux [facility] [address] [place] disease wi thout esophagitis [address] K21.9 ; History of adenomatous poly p of colon Z86.010 ; Encoun ter for screening for ma lignant neoplasm of colo n Z12.11 and Encounter for sc reening for malignant neopla sm of rectum Z12.12 [facility] [address] Dec, Gastroes ophageal reflux [facility] [address] [place] disease wi thout esophagitis [address] K21.9 ; History of adenomatous poly p of colon Z86.010 and Dive rticulitis of large intesti ne without perforation or a bscess without bleeding K57.32 [facility] [address] Nov, [facility] [address] [place] [address] [facility] [address] August, [facility] [address] [place] [address] [facility] [address] August, [facility] [address] [place] [address] [facility] [place] [address] [place] [address] August, K[place] [phone] [facility] [address] August, [facility] [address] [place] [address] [facility] [address] Jun, [facility] [address] [place] [address] [facility] [address] May, [facility] [address] [place] [address] [facility] [address] Apr, [facility] [address] [place] [address] [facility] [address] Feb, [facility] [address] [place] [address] [place] [address] Feb, Dumping syndrome K91.1 ; [facility] [address] [place] [address] colon K63.5 ; Co trupti adenomas D12.6 ; Encounte r for screening for ma lignant neoplasm of colo n Z12.11 and Encounter for ms reening for malignant neopla sm of rectum Z12.12 [place] [address] Sep, [facility] [address] [place] [address] [facility] [place] [address] [facility] Sep, [place] [phone] [place] [address] Jul, [facility] [address] [place] [address] [place] [address] Jul, Irritabl e bowel syndrome [facility] [address] [place] 564.1 ; H/ O adenomatous [address] polyp of colon V 12.72 and Colon cancer scr eening V76.51 [place] [address] Feb, [facility] [address] [place] [address] [facility] [place] [address] [facility] Feb, [place] [phone] [facility] [address] Nov, [facility] [address] [place] [address] [place] [address] Nov, Divertic ulitis of colon [facility] [address] [place] 562.11 ; A bnormal [place] scan, [address] gastrointestinal tract 793.4 and Family histo ry of colorectal cance r V16.0 [facility] ER [address] Sep, [place] [phone] [facility] [address] [facility] Feb, [place] [phone] [facility] ER [address] [facility] 16 Feb, 2010 [place] [id number] IMMUNIZATIONS Vaccine Route Administration Date Status Influenza Unknown Jan 28, 2020 Administered Influenza Unknown Jan 27, 2019 Administered Influenza Unknown Jan 27, 2019 Administered Influenza Unknown Feb 05, 2018 Administered Flu vaccine no Preserv 3 and > Unknown Jan 29, 2017 A dministered Influenza Unknown Jan 20, 2016 Administered Flu vaccine no Preserv 3 and > Unknown Feb 01, 2015 A dministered Flu vaccine no Preserv 3 and > Unknown Feb 03, 2014 A dministered SOCIAL HISTORY Never Assessed REASON FOR REFERRAL FUNCTIONAL STATUS PLAN OF CARE Activity Details Future Appointment Provider Name:Víctor Brown , 2022-05-03 11:20:00 AM, [address] [facility], [address], [place], [address], Pending Test XR BARIUM SWALLOW-ESOPHAGUS Pending Test XR BARIUM SWALLOW-ESOPHAGUS Future/Pending Procedure COLONOSCOPY [id number] Future/Pending Procedure UPPER GI ENDOSCOPY [id number] Future/Pending Procedure COLONOSCOPY [id number] Future/Pending Procedure COLONOSCOPY [id number] Future/Pending Procedure COLONOSCOPY [id number] Future/Pending Procedure UPPER GI ENDOSCOPY [id number] Future/Pending Procedure COLONOSCOPY [id number] VITAL SIGNS Weight 265 lbs 2020-06-01 Weight 276 lbs 2019-06-30 Weight 276 lbs 2018-10-14 Weight 249 lbs 2017-06-11 Weight 257 lbs 2016-07-26 Weight 180 lbs 2016-01-27 Weight 273 lbs 2015-03-22 Weight 274 lbs 2014-08-10 Weight 266 lbs 2013-12-22 Height 70 in 2020-06-01 Height 70 in 2019-06-30 Height 70 in 2018-10-14 Height 70 in 2017-06-11 Height 70 in 2016-07-26 Height 70 in 2016-01-27 Height 70 in 2015-03-22 Height 70 in 2014-08-10 Height 70 in 2013-12-22 BMI 38.02 kg/m2 2020-06-01 BMI 39.60 kg/m2 2019-06-30 BMI 39.60 kg/m2 2018-10-14 BMI 35.72 kg/m2 2017-06-11 BMI 36.87 kg/m2 2016-07-26 BMI 25.82 kg/m2 2016-01-27 BMI 39.17 kg/m2 2015-03-22 BMI 39.31 kg/m2 2014-08-10 BMI 38.16 kg/m2 2013-12-22 Heart Rate 68 /min 2017-06-11 Heart Rate 84 /min 2013-12-22 Temperature 97.5 degrees Fahrenheit 2020-06-01 Blood pressure systolic 000 mm Hg 2020-06-01 Blood pressure diastolic 00 mm Hg 2020-06-01 MEDICATIONS Medication Instructions Dosage Frequency Start End Duration Statu s Date Date Alfuzosin HCl ER Oral every TAKE 1 Acti ve 10 MG night TABLET BY MOUTH DAILY Eliquis 5 MG as directed Active Omeprazole 40 MG Orally Once a 1 capsule 24h Active day Promethazine HCl TAKE ONE 15 Active 25 MG TABLET BY MOUTH EVERY 6 HOURS NEEDED FOR NAUSEA. Depakote 250 MG Orally once a 1 tablet 24h A ctive day Venlafaxine HCl ER Orally Once a 187 1/2 mg 24h Active 150 MG day once in am amLODIPine Orally Once a 1 tablet 24h Active Besylate 10 MG day HYDROcodone-Acetam Oral prn TAKE up to A ctive inophen 5-325 MG 2 TABLETS BY MOUTH TODAY, THEN TAKE 1 TABLET DAILY FOR 4 DAYS Dicyclomine HCl 10 Orally Q 6 1-2 24 Sep, days Ac tive MG hours prn 2019 abdominal cramps/discomfo rt LORazepam 1 MG Orally prn TAKE 2 Active TABLETS BY MOUTH TODAY, THEN TAKE 1 TABLET DAILY FOR 4 DAYS Cyclobenzaprine Orally as 1 tablet Activ e HCl 10 MG needed PROCEDURES Procedure Date Ordered Result Body Site TOBACCO NON-USER Mar 22, 2015 TOBACCO NON-USER Jun 11, 2017 COLONOSCOPY AND BIOPSY Jan 14, 2019 TOBACCO NON-USER Jun 01, 2020 BP SCR PRFRM RCMDD DEFIND SCR INTVL Jun 11, 2017 TOBACCO NON-USER June 30, 2019 BP SCR PRFRM RCMDD DEFIND SCR INTVL Jan 27, 2016 COLORECTAL CA SCREEN DOC REV Jun 11, 2017 BP SCR PRFRM RCMDD DEFIND SCR INTVL August 10, 2014 COLORECTAL CA SCREEN DOC REV Jan 27, 2016 TOBACCO NON-USER July 26, 2016 COLORECTAL CA SCREEN DOC REV October 14, 2018 BMI >=30 CALCUATE W/FOLLOWUP Jan 27, 2016 UPPER GI ENDOSCOPY, BIOPSY September 30, 2020 FLU IMMUNIZE ORDER/ADMIN August 10, 2014 BMI >=30 CALCUATE W/FOLLOWUP August 10, 2014 BMI >=30 CALCUATE W/FOLLOWUP July 26, 2016 BP SCR PRFRM RCMDD DEFIND SCR INTVL July 26, 2016 LESION REMOVAL COLONOSCOPY Jan 27, 2021 BMI >=30 CALCUATE W/FOLLOWUP Mar 22, 2015 BP SCR PRFRM RCMDD DEFIND SCR INTVL Mar 22, 2015 COLORECTAL CA SCREEN DOC REV Jun 01, 2020 FLU IMMUNIZE ORDER/ADMIN Jun 11, 2017 COLORECTAL CA SCREEN DOC REV June 30, 2019 TOBACCO NON-USER October 14, 2018 FLU IMMUNIZE ORDER/ADMIN Jan 27, 2016 BMI >=30 CALCUATE W/FOLLOWUP Jun 11, 2017 DOC MEDS VERIFIED W/PT OR RE Jun 11, 2017 MEDS DOCUMENT W/O VERIFICA Dec 22, 2013 BP SCR PRFRM RCMDD DEFIND SCR INTVL June 30, 2019 FLU IMMUNIZE ORDER/ADMIN July 26, 2016 BP SCR PRFRM RCMDD DEFIND SCR INTVL October 14, 2018 FLU IMMUNIZE ORDER/ADMIN Mar 22, 2015 DOC MEDS VERIFIED W/PT OR RE July 26, 2016 DOC MEDS VERIFIED W/PT OR RE Mar 22, 2015 DOC MEDS VERIFIED W/PT OR RE October 14, 2018 TOBACCO NON-USER August 10, 2014 COLORECTAL CA SCREEN DOC REV July 26, 2016 DOC MEDS VERIFIED W/PT OR RE Jan 27, 2016 COLORECTAL CA SCREEN DOC REV Mar 22, 2015 DOC MEDS VERIFIED W/PT OR RE August 10, 2014 LESION REMOVAL COLONOSCOPY Jan 14, 2019 BP SCR PRFRM RCMDD DEFIND SCR INTVL Jun 01, 2020 DOC MEDS VERIFIED W/PT OR RE Jun 01, 2020 COLORECTAL CA SCREEN DOC REV August 10, 2014 DOC MEDS VERIFIED W/PT OR RE June 30, 2019 TOBACCO NON-USER Jan 27, 2016 RESULTS Name Result Date Reference Range Pathology 2021-01-27 Pathology 2020-09-30 BARIUM SWALLOW ESOPHAGUS 2019-07-24 GI BIOPSY 2019-01-14 G.I. BIOPSY GI BIOPSY 2017-10-14 G.I. BIOPSY GI BIOPSY 2016-10-24 G.I. BIOPSY GI BIOPSY 2015-09-12 G.I. BIOPSY GI BIOPSY 2014-10-21 G.I. BIOPSY GI BIOPSY 2014-03-01 G.I. BIOPSY REASON FOR VISIT screening colonoscopy, question, stomach feels like in knots every morning, SCREENING, Wants colonoscopy , screening, colonoscopy, bowel prep, screening, nausea, trouble with nausea, severe nausea, screening,gerd,nausea, cancelling, very nauseous, patient presents today for screening colonoscopy, COVID Screen, follow up, follow up, FYI, Pt no show, patient presents today for f/u office visit/colon, went to er on 10-31-2019, dull ache in abdomen/ patient called back, r/s for sooner appt, stomach pain/ patient called back/ update, PATIENT PRESENTS TODAY FOR abd pain, constipation,achy pain sensation inmiddle abd, Hx Adenomatous Polpys,Screening, Wants a one day prep, Barium Swallow, patient presents today for colon screening recall,dysphagia, low b12 levels, refill , refill, hx of polyps, screening,Vanco dosing, another nausea medication, patient presents today for To review pt's Polyps, Nauseous,Looking for refill on Zofran, Pt no show, Patients presents today for f/u office visit for colon polyps, Please schedule a f/u appt in the fall, requesting refill on zofran, SCREENING,HX OF COLON POLYPS, patient presents today for 6 month f/u, gerd/colon polyps, Still having nausea, results of procedure, need f/u with Dr Brown/waiting for call back, dumping syndrome, hx of polyps, screening, FYI, dumping syndrome, polyps, screening, severe nausea,blood in stool, Reschedule procedure, nausea x 2 1/2 weeks, send over movi prep, f/u of colonoscopy, upset stomach, hx of polyps, screening, send over movi prep, Follow up, RE: Vertigo, fam hx of colon can, abn CT scan, SIGN OFF ON COLTE PREP, screening Insurance Providers [facility] Member Patient Patient Patient Patient Patient Subscriber Subscriber Subscriber Group Insurance Plan Plan Plan Plan ID Relationship Address Phone Name Date of ID Name Date of No Type Insurance Insurance Insurance Coverage to Subscriber Address Phone Name Dates MEDEX ATTN [phone] MEDEX self [place] [id number] [address]S [address] [facility] [address] MEDICARE [phone] MEDICARE self KELL[place] [id number] [facility] [address] [place] [address]
--- OUTSIDE RECORDS SUMMARY | 2022-02-13 19:18 | XMS_ITS | Continuity of Care Document ---
:1945 Author Organization [facility] Address [address] [place] [id number]- Care Team Providers Name Role Phone Po Thania FALK Primary Care Physician Encounter [facility] Date(s): 10/24/20 - 11/23/20 [facility] [address] [place] [id number] Allergies, Adverse Reactions, Alerts Substance Reaction [...] have partial fills on request [facility] [id number] #[id number], # 25 tablet, 0 Refills, Maintenance, 02/17/20 14:00:00 EDT, Tablet, [facility], 187, cm, 02/17/20 11:... Start [...] Updated On: 07/28/2020 Pharmacy I: [facility] [place] DX: M54.4 mechanical low back pain, M53.3SI [...] 02/17/20 13:50:00 EDT, Route to Pharmacy Electronically, [facility], 187, cm, 02/17/20 11:58:00 EDT, Height, 102, kg, 02/12/20 12:29:00 EDT... Start Date: 02/17/20 Status: Orderedvenlafaxine 150 mg oral capsule, extended release 150 mg, 1, capsule, By Mouth, Daily, # 30 capsule, Refills 0, Tot. Refills 0, Maintenance, 02/17/20 13:50:00 EDT, Route to Pharmacy Electronically, [facility], 187, cm, 02/17/20 11:58:00 EDT, [...] fixation by Fred Turk M.D. 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 at [facility].5On04/09/17 underwent left hip replacement for left hip fracture by Jos Locke at 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
--- OUTSIDE RECORDS SUMMARY | 2022-02-13 19:18 | XMS_ITS | Continuity of Care Document ---
:1945 Author Organization [facility] Address [address] [place] [id number]- Care Team Providers Name Role Phone Po Thania FALK Primary Care Physician [place] [facility] [place]s): 06/20/20 - 07/21/20 [facility] [address] [place] [address] Attending Physician: Huber Arce DO Admitting Physician: Huber Arce DO Allergies, Adverse Reactions, Alerts Substance Reaction Severity [...] have partial fills on request [facility] [id number] #[id number], # 25 tablet, 0 Refills, Maintenance, 02/17/20 14:00:00 EDT, Tablet, [facility], 187, cm, 02/17/20 11:... Start [...] Maintenance, 02/17/20 13:50:00 EDT, Tablet, [facility], 187, cm, 02/17/20 11:58:00 EDT, Height, 102, kg, 02/12/20 12:29:00 EDT, Dry Weight Start Date: 02/17/20 Status: Orderedergocalciferol 64504 iu oral capsule See Instructions, Start from [...] kg, 02/12/20 12:29:... Start Date: 05/25/20 Status: Orderedfexofenadine 180 mg oral tablet TAKE [...] 02/17/20 13:50:00 EDT, Route to Pharmacy Electronically, [facility], 187, cm, 02/17/20 11:58:00 EDT, Height, 102, kg, 02/12/20 12:29:00 EDT... Start Date: 02/17/20 Status: Orderedvenlafaxine 150 mg oral capsule, extended release 150 mg, 1, capsule, By Mouth, Daily, # 30 capsule, Refills 0, Tot. Refills 0, Maintenance, 02/17/20 13:50:00 EDT, Route to Pharmacy Electronically, [facility], 187, cm, 02/17/20 11:58:00 EDT, [...] by Fred Turk M.D. at [facility].5On04/09/17 underwent left hip replacement for left hip fracture by Jos Locke at 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
[2022-02-13] MEDS: Acetaminophen 325 MG TABLET 975 MG PO (19:29)
--- NOTE | 2022-02-13 19:31 | PC.NURSE ---
patient is alert, oriented x4. he endorses 6/10 pain above my waist. he denies dizziness or pain elsewhere.
[2022-02-13 20:01] LABS: Appearance Urine Cloudy; Color Urine Dark Yellow; Glucose Urine UA Negative (Negative); Leukocyte Esterase Urine Trace (Negative); Nitrite Urine Negative (Negative); PH 5.5 (5.0-9.0); Specific Gravity - Urine 1.025 (1.005-1.025); UMIC TRIGGER UACC YES; Urine Blood Negative (Negative); Urine Ketones Trace mg/dL (Negative); Urine Protein Trace mg/dL (Neg-Trace)
[2022-02-13 21:21] LABS: Bacteria Urine None Seen (None Seen); RBC Urine 0-2 /HPF (0-2); Squamous Epithelial Cell Urine 0-2 /HPF (0-2); WBC Urine 0-5 /HPF (0-5)
== END 2022-02-13 20:38 | disposition home or self-care (01) ==
PROVIDERS: Emergency Medicine; Emergency Provider Emergency Medicine; PCP Internal Medicine
DX: S20.213A Contusion of bilateral front wall of thorax, initial encounter (principal); S13.4XXA Sprain of ligaments of cervical spine, initial encounter; M25.552 Pain in left hip; R21 Rash and other nonspecific skin eruption; R07.81 Pleurodynia; W01.0XXA Fall on same level from slipping, tripping and stumbling without subsequent striking against object, initial encounter; Y93.9 Activity, unspecified; Y92.9 Unspecified place or not applicable; Y99.9 Unspecified external cause status; R51.9 Headache, unspecified; M54.2 Cervicalgia; Z20.822 Contact with and (suspected) exposure to COVID-19; Z79.01 Long term (current) use of anticoagulants; Z79.899 Other long term (current) drug therapy
CPT/HCPCS: 70450; 71111; 72125; 80048; 80076; 81001; 81003; 84484; 85025; 87635; 93005; 99284

== ENCOUNTER 2022-03-08 15:43 | Outpatient (REF) | payer MEDICARE, SELFPAY ==
[2022-03-08 15:58] LABS: MANUAL DIFF FLAG NO
[2022-03-08 16:31] LABS: Basophils Absolute Auto 0.1 X10*3/uL (0.0-0.2); Basophils Percent Auto 0.8 % (0-2); Eosinophils Absolute Auto 0.1 X10*3/uL (0.0-0.4); Eosinophils Percent Auto 0.9 % (0-4); Hematocrit 46.2 % (42.0-52.0); Hemoglobin 15.5 g/dl (14.0-18.0); Imm Gran Abs Auto 0.08 X10*3/uL (0.00-0.03); Imm Gran Pct Auto 0.7 % (0.0-0.4); Lymphocytes Absolute Auto 3.7 X10*3/uL (1.2-4.9); Lymphocytes Percent Auto 32.4 % (20-40); Mean Corpuscular HGB Conc 33.5 g/dl (31.0-36.0); Mean Corpuscular Hemoglobin 31.8 pg (27.0-33.0); Mean Corpuscular Volume 94.9 fL (80.0-98.0); Mean Platelet Volume 10.5 fL (9.4-12.4); Monocytes Absolute Auto 0.9 X10*3/uL (0.1-1.2); Monocytes Percent Auto 7.5 % (2-11); Neutrophils Absolute Auto 6.6 x10*3/uL (2.0-8.3); Neutrophils Percent Auto 57.7 % (45-73); Platelet Count 385 X10*3/uL (160-400); Red Blood Count 4.87 X10*6/uL (4.60-5.80); Red Cell Distribution Width 12.9 % (11.0-16.0); White Blood Count 11.4 X10*3/uL (4.8-10.8)
[2022-03-08 16:46] LABS: Alanine Aminotransferase 18 U/L (0-40); Albumin Level 4.6 g/dL (3.5-5.0); Alkaline Phosphatase 141 U/L (39-117); Anion Gap 18 (12-20); Aspartate Amino Transferase 17 U/L (5-37); Bilirubin Total 0.4 mg/dL (0.0-1.0); Blood Urea Nitrogen 15 mg/dL (9-16); Calcium 10.3 mg/dL (8.4-10.2); Carbon Dioxide 26 mmol/L (22-29); Chloride 99 mmol/L (96-108); Estimated Glomerular Filt Rate > 60; Glucose Random 95 mg/dL (60-115); Iron 83 mcg/dL (45-160); Percent Iron Saturation 23 % (15-50); Potassium 5.3 mmol/L (3.3-5.1); Sodium 138 mmol/L (135-145); Total Iron Binding Capacity 355 mcg/dL (228-428); Total Protein 7.5 g/dL (6.5-8.0); Unsaturated Iron Binding 272 ug/dL
[2022-03-08 17:10] LABS: Vitamin B12 1604 pg/mL (200-900)
[2022-03-08 17:15] LABS: Vitamin D 25-OH Total 47.8 ng/mL (>30)
[2022-03-08 17:20] LABS: TSH reflex Free T4 2.73 uIU/mL (0.32-4.0)
== END 2022-03-08 15:44 | disposition home or self-care (01) ==
LOC: HO.LAB 15:43
PROVIDERS: PCP Internal Medicine; Visit Provider Nurse Practitioner Family
DX: Z13.29 Encounter for screening for other suspected endocrine disorder (principal); Z13.21 Encounter for screening for nutritional disorder; D50.9 Iron deficiency anemia, unspecified; D51.8 Other vitamin B12 deficiency anemias; I10 Essential (primary) hypertension; R74.01 Elevation of levels of liver transaminase levels
CPT/HCPCS: 36415; 80053; 82306; 82607; 83540; 84443; 85025

== ENCOUNTER 2022-03-20 12:07 | Outpatient (REF) | payer MEDICARE, SELFPAY ==
[2022-03-20 12:57] LABS: Alanine Aminotransferase 21 U/L (0-40); Albumin Level 4.5 g/dL (3.5-5.0); Alkaline Phosphatase 120 U/L (39-117); Anion Gap 17 (12-20); Aspartate Amino Transferase 17 U/L (5-37); Bilirubin Total 0.4 mg/dL (0.0-1.0); Blood Urea Nitrogen 18 mg/dL (9-16); Calcium 9.5 mg/dL (8.4-10.2); Carbon Dioxide 27 mmol/L (22-29); Chloride 101 mmol/L (96-108); Cholesterol 234 mg/dL; Estimated Glomerular Filt Rate > 60; Glucose Random 94 mg/dL (60-115); HDL Cholesterol 58 mg/dL; LDL Cholesterol Calculated 136 mg/dl; Potassium 5.5 mmol/L (3.3-5.1); Sodium 139 mmol/L (135-145); Total Protein 7.3 g/dL (6.5-8.0); Triglycerides 200 mg/dL
[2022-03-20 17:00] LABS: Vitamin D 25-OH Total 44.3 ng/mL (>30)
[2022-03-23 13:06] LABS: Calcium (PTHI) 9.3 mg/dL (8.6-10.3); PTHI 100 pg/mL (16-77)
[2022-03-23 16:36] LABS: Calcium, Ionized 4.9 mg/dL (4.8-5.6)
[2022-03-23 17:52] LABS: A. Phagocytphilium DNA,RT-PCR NOT DETECTED (NOT DETECTED); Babesia Microti DNA, RT-PCR NOT DETECTED (NOT DETECTED); Borrelia Miyamotoi,DNA RT-PCR NOT DETECTED (NOT DETECTED); E.Chaffeensis DNA RT-PCR NOT DETECTED (NOT DETECTED); Lyme(Borrelia ssp)DNA RT-PCR NOT DETECTED (NOT DETECTED)
[2022-03-24 22:07] LABS: Alkaline Phosphatase Bone 20.1 mcg/L (see note)
[2022-03-27 09:09] LABS: Source-Tick borne disease BLOOD
== END 2022-03-20 12:08 | disposition home or self-care (01) ==
LOC: HO.LAB 12:07
PROVIDERS: Nurse Practitioner Family; PCP Internal Medicine; Visit Provider Nurse Practitioner Family
DX: Z13.220 Encounter for screening for lipoid disorders (principal); E83.52 Hypercalcemia; R53.83 Other fatigue; R74.8 Abnormal levels of other serum enzymes; R79.89 Other specified abnormal findings of blood chemistry; I48.91 Unspecified atrial fibrillation; F41.1 Generalized anxiety disorder; D64.9 Anemia, unspecified
CPT/HCPCS: 36415; 80053; 80061; 82306; 82330; 83970; 84075; 87798; 87801

== ENCOUNTER 2022-03-28 12:28 | Outpatient (REF) | payer MEDICARE, SELFPAY | END 2022-03-28 12:29 | disposition home or self-care (01) | LOC: HO.LAB 12:28 | PROVIDERS: PCP Internal Medicine; Visit Provider Nurse Practitioner Family | DX: E87.5 Hyperkalemia (principal) | CPT/HCPCS: 36415; 84132 ==

== ENCOUNTER 2022-04-05 12:54 | Outpatient (REF) | payer MEDICARE, SELFPAY | END 2022-04-05 12:55 | disposition home or self-care (01) | LOC: HO.LAB 12:54 | PROVIDERS: PCP Internal Medicine; Visit Provider Internal Medicine | DX: Z13.89 Encounter for screening for other disorder (principal) ==

== ENCOUNTER 2022-04-06 07:44 | Outpatient (REF) | payer MEDICARE, SELFPAY ==
[2022-04-06 08:50] LABS: Potassium 4.2 mmol/L (3.3-5.1)
== END 2022-04-06 07:45 | disposition home or self-care (01) ==
LOC: HO.LAB 07:44
PROVIDERS: Physician Assistant; PCP Internal Medicine; Visit Provider Internal Medicine
DX: T73.2XXA Exhaustion due to exposure, initial encounter (principal)
CPT/HCPCS: 36415; 84132

== ENCOUNTER 2022-04-10 07:14 | Outpatient (REF) | payer MEDICARE, SELFPAY ==
[2022-04-10 07:28] LABS: MANUAL DIFF FLAG NO
[2022-04-10 08:12] LABS: Basophils Absolute Auto 0.1 X10*3/uL (0.0-0.2); Eosinophils Absolute Auto 0.1 X10*3/uL (0.0-0.4); Eosinophils Percent Auto 1.4 % (0-4); Hematocrit 42.9 % (42.0-52.0); Hemoglobin 14.2 g/dl (14.0-18.0); Imm Gran Abs Auto 0.07 X10*3/uL (0.00-0.03); Imm Gran Pct Auto 0.7 % (0.0-0.4); Immature Retic Fraction 10.9 % (2.3-13.4); Lymphocytes Percent Auto 39.5 % (20-40); Mean Corpuscular HGB Conc 33.1 g/dl (31.0-36.0); Mean Corpuscular Hemoglobin 31.3 pg (27.0-33.0); Mean Corpuscular Volume 94.7 fL (80.0-98.0); Mean Platelet Volume 10.8 fL (9.4-12.4); Neutrophils Absolute Auto 4.8 x10*3/uL (2.0-8.3); Neutrophils Percent Auto 47.4 % (45-73); Platelet Count 355 X10*3/uL (160-400); Red Blood Count 4.53 X10*6/uL (4.60-5.80); Red Cell Distribution Width 13.4 % (11.0-16.0); Retic HGB Equivalent 35.6 pg (30.0-35.0); Reticulocytes Absolute 0.092 X10*6/uL (0.026-0.095)
[2022-04-10 08:22] LABS: Estimated Average Glucose 94 mg/dL; Hemoglobin A1c % 4.9 %
[2022-04-10 08:42] LABS: B Type Natriuretic Peptide 38 pg/mL (<100)
[2022-04-10 08:54] LABS: Erythrocyte Sedimentation Rate 6 MM/HR (0-15)
[2022-04-10 09:10] LABS: Alanine Aminotransferase 16 U/L (0-40); Albumin Level 4.4 g/dL (3.5-5.0); Alkaline Phosphatase 96 U/L (39-117); Anion Gap 14 (12-20); Aspartate Amino Transferase 16 U/L (5-37); Bilirubin Total 0.4 mg/dL (0.0-1.0); Blood Urea Nitrogen 20 mg/dL (9-16); C Reactive Protein 0.52 mg/dL (< or = 0.50); Calcium 9.7 mg/dL (8.4-10.2); Carbon Dioxide 26 mmol/L (22-29); Chloride 107 mmol/L (96-108); Cholesterol 223 mg/dL; Estimated Glomerular Filt Rate > 60; Ferritin 54 ng/mL (20-250); Free T4 (Free Thyroxine) 0.95 ng/dL (0.71-1.85); Glucose Random 100 mg/dL (60-115); HDL Cholesterol 60 mg/dL; LDL Cholesterol Calculated 127 mg/dl; Prostate Specific Antigen < 0.10 ng/mL (<0.05-4.0); Sodium 142 mmol/L (135-145); Total Protein 6.9 g/dL (6.5-8.0); Triglycerides 184 mg/dL; Uric Acid 7.4 mg/dL (3.4-7.0)
[2022-04-10 09:17] LABS: Appearance Urine Clear; Color Urine Yellow; Glucose Urine UA Negative (Negative); Leukocyte Esterase Urine Negative (Negative); Nitrite Urine Negative (Negative); Urine Blood Negative (Negative); Urine Ketones Negative (Negative); Urine Protein Negative (Neg-Trace)
[2022-04-10 09:22] LABS: Folate 7.5 ng/mL (> or = 4.0); Vitamin B12 > 2000 pg/mL (200-900)
[2022-04-10 09:26] LABS: Bacteria Urine None Seen (None Seen); Hyaline Casts Urine 0-2 /LPF (0-2); RBC Urine 0-2 /HPF (0-2); Squamous Epithelial Cell Urine 0-2 /HPF (0-2); WBC Urine 0-5 /HPF (0-5)
== END 2022-04-10 07:15 | disposition home or self-care (01) ==
LOC: HO.LAB 07:14
PROVIDERS: Nurse Practitioner Acute Care; PCP Internal Medicine; Visit Provider Internal Medicine
DX: R06.02 Shortness of breath (principal); D64.9 Anemia, unspecified; C61 Malignant neoplasm of prostate; T73.2XXA Exhaustion due to exposure, initial encounter; D50.9 Iron deficiency anemia, unspecified; E78.00 Pure hypercholesterolemia, unspecified; R73.9 Hyperglycemia, unspecified; Z12.5 Encounter for screening for malignant neoplasm of prostate
CPT/HCPCS: 36415; 80053; 80061; 81001; 82607; 82728; 82746; 83036; 83880; 84153; 84439; 84443; 84550; 85025; 85045; 85652; 86140

== ENCOUNTER 2022-06-08 19:51 | Inpatient (IN) | payer MEDICARE, SELFPAY ==
--- NOTE | ~2022-06-08 | XR_ITS ---
EXAMINATION: XR CHEST CLINICAL INFORMATION: Status post nasogastric tube placement COMPARISON: 06/08/2022 TECHNIQUE: Frontal view of the chest was obtained. FINDINGS: Enteric tube terminates in the stomach, coiling in the fundus. Normal symmetric lung volumes. No parenchymal consolidation. No pleural effusion. No pneumothorax. Cardiomediastinal silhouette and pulmonary vascularity are within normal limits. No acute osseous abnormalities. XR/XR chest 1V IMPRESSION: Enteric tube terminates in the stomach.
--- NOTE | ~2022-06-08 | XR_ITS ---
EXAMINATION: XR ABDOMEN KUB CLINICAL INDICATION: Follow-up small bowel obstruction status post exploratory laparotomy. COMPARISON: 06/10/2022 abdominal series. TECHNIQUE: AP view of the abdomen. FINDINGS: Support devices: Interval retraction of the enteric tube with tip in the region of the gastroesophageal junction/gastric cardia. There has been interval decrease in small bowel dilatation. Mild gas and stool are seen within the colon distally to the rectum. Other findings are nonspecific change. XR/XR KUB IMPRESSION: 1. Interval decrease in small bowel dilatation with no overt obstruction seen at this time. 2. Interval retraction of enteric tube with tip in the region of the gastroesophageal junction/gastric cardia. Advancement is recommended.
--- NOTE | ~2022-06-08 | FL_ITS ---
EXAMINATION: GASTROGRAFIN SMALL BOWEL FOLLOW-THROUGH CLINICAL INFORMATION: Small bowel obstruction. COMPARISON: 06/19/2022 TECHNIQUE: Preliminary KUB followed by administration of 8 ounces of Gastrografin orally. Patient became nauseated and vomited between initial film and 30 minute film. Patient decided not to complete the examination due to pain and discomfort at that point. Delayed KUB also performed. FINDINGS: On preliminary imaging a nasogastric tube is seen coiled with side and end hole near the region of the gastric fundus in the area of musa. Patient status post kyphoplasty L1. There is some mild scoliosis at the thoracolumbar junction convex right. There appears to be osteopenia. There is degenerative disc disease with facet arthropathy L4 through S1. Patient status post left total hip arthroplasty. Prostate seeds seen in place. Musa from recent surgery are noted about the right abdomen. Abdominal wall mesh in place. There are distended loops of small bowel evident measuring up to 4.5 cm in diameter. Stool and gas is seen within decompressed colon. On initial imaging with the Gastrografin, contrast is seen within the stomach, duodenum, and proximal jejunum. Loops of bowel are distended without loops crossing midline. The most distal loop is seen to overlie the mid left pelvis. On 30 minute image, more loops of small bowel are filled to midline region. The contrast column is faint distally and although visualized folds appear normal evaluation is limited. At this point, the patient refused to go on with study. Delayed imaging was then performed at approximately 3:00 PM. The initial contrast had been given at approximately 8:00 AM so this is an approximately 7 hour film. Contrast is seen to be within the colon. The contrast column is very faint however there does appear to be contrast within the rectum. FL/FL small bowel follow through IMPRESSION: Limited Gastrografin study as described with contrast reaching the colon.
--- NOTE | ~2022-06-08 | XR_ITS ---
EXAMINATION: XR CHEST CLINICAL INFORMATION: Dyspnea COMPARISON: 06/09/2022 TECHNIQUE: Frontal view of the chest was obtained. FINDINGS: Nasogastric tube terminates in the stomach. Low lung volumes. No focal consolidation, pleural effusion or pneumothorax. Stable cardiac mediastinal silhouette. No acute osseous abnormalities. XR/XR chest 1V IMPRESSION: * Low lung volumes. * No focal consolidation.
--- NOTE | ~2022-06-08 | XR_ITS ---
EXAMINATION: PORTABLE CHEST 1 VIEW CLINICAL INFORMATION: Vomiting stool . COMPARISON: 02/13/2022. TECHNIQUE: Portable frontal view of the chest was obtained. FINDINGS: Lungs are hypoexpanded with basilar markings more likely due to atelectasis. No overt edema or pneumothorax. Cardiac silhouette is prominent but likely within upper normal limits for the degree of hypoexpansion. Vascular calcification in aorta. Surgical clips in epigastrium. XR/XR chest 1V IMPRESSION: Hypoexpanded with basilar markings more likely due to atelectasis.
--- NOTE | ~2022-06-08 | XR_ITS ---
EXAMINATION: XR ABDOMEN KUB CLINICAL INDICATION: Abdominal pain COMPARISON: CT abdomen pelvis 06/08/2022 TECHNIQUE: AP view of the abdomen. FINDINGS: NG tube extends below the diaphragm terminating in the region of the gastric fundus. The sidehole of tube is also in the stomach. Surgical clips at the GE junction. Dilated air-filled loops of small bowel in the left hemiabdomen measuring up to 4.7 cm in diameter consistent with known small bowel obstruction seen on CT performed yesterday. Minimal linear subsegmental atelectasis or scarring at the left lung base. No gross large volume free air, limited assessment. Vertebroplasty changes at L1. Prostate brachytherapy implant seeds. Excreted contrast in the urinary bladder from recent contrast-enhanced CT. Status post left total hip arthroplasty. No acute osseous injury identified. Metallic tacks consistent with prior hernia repair project over the abdomen. XR/XR KUB IMPRESSION: 1. Significantly dilated air-filled loops of small bowel in the left hemiabdomen consistent with known small bowel obstruction. 2. No gross large volume free air.
--- NOTE | ~2022-06-08 | XR_ITS ---
EXAMINATION: XR CHEST CLINICAL INFORMATION: Nasogastric tube placement COMPARISON: Multiple priors with the last chest x-ray of 06/09/2022 obtained at 12:03 AM. TECHNIQUE: Frontal view of the chest was obtained. FINDINGS: Nasogastric tube terminates into the proximal to mid stomach in the left upper abdominal quadrant. Multiple cardiac leads and wires overlie the chest. Cardiomediastinal silhouette is unchanged. The lungs are mildly hypoexpanded. No focal consolidation, changes of congestion, pleural effusions or pneumothorax are seen. Osteoarthritic changes at the left glenohumeral articulation. XR/XR chest 1V IMPRESSION: Nasogastric tube terminates in the stomach.
--- NOTE | ~2022-06-08 | CT_ITS ---
EXAMINATION: CT ABDOMEN AND PELVIS WITHOUT CONTRAST CLINICAL INFORMATION: Abdominal distention. Recent small bowel obstruction and exploratory laparotomy. COMPARISON: KUB 06/18/2022, 06/13/2022, CT abdomen and pelvis with contrast 06/08/2022. TECHNIQUE: Multidetector volumetric imaging was performed from the superior aspect of the liver through the pubic symphysis. Sagittal and coronal reformatted images were obtained on the technologist's workstation. This CT examination was performed using dose optimization techniques as appropriate, variously including the following: *Automated exposure control *Adjustment of mA and/or kV according to patient size (this includes techniques or standardized protocols for targeted exams where dose is matched to indication/reason for exam; i.e. extremities or head) *Use of iterative reconstruction technique DLP: 873 mGy-cm FINDINGS: LUNG BASES: Subsegmental atelectasis left posterior base. LIVER, GALLBLADDER, AND BILIARY TREE: Normal in size and smooth in contour. Parenchyma homogeneous. No focal parenchymal lesion or intrahepatic ductal dilatation. Prior cholecystectomy. No extrahepatic ductal dilatation. No choledocholithiasis. PANCREAS: Mildly atrophic, otherwise unremarkable. No pancreatic ductal distention or peripancreatic inflammatory changes. SPLEEN: Unremarkable. ADRENAL GLANDS: Unremarkable. KIDNEYS AND URETERS: The kidneys are normal in size, shape, and attenuation. No hydronephrosis, hydroureter, or calculi seen. No perinephric stranding. BLADDER: Unremarkable. GASTROINTESTINAL TRACT: There is dilatation of the stomach and proximal to mid small bowel with small bowel loops distended up to 4.8 cm in diameter. Small bowel feces stasis is decreased from prior exam. Again, there is transition to nondistended small bowel in the mid anterior abdomen just left of midline at level of the mesh (axial series 3, images 59-53; sagittal images 90-98). Distal to this area, the small bowel is collapsed. The colon shows no dilatation. There is scattered stool throughout the colon. The appendix is normal. There is no pneumatosis or suspicious free air. Tiny gas bubble is seen adjacent to the anterior abdomen likely related to recent surgery, series 3 image 40. No ascites or fluid collection. There is an NG tube in the stomach. ABDOMINAL WALL: Anterior abdominal wall mesh with probable seromatous fluid the mesh leaves, approximately 1 cm in thickness on each side, new from prior CT 06/08/2022. Stable left fat-containing inguinal hernia. LYMPH NODES: No lymphadenopathy. VASCULAR: Unremarkable. PELVIC VISCERA: Numerous prostate radiation therapy seeds again noted. Seminal vesicles symmetric. OSSEOUS STRUCTURES: No acute bony abnormality. Scattered prior posttraumatic changes as previously described. CT/CT abdomen pelvis wo IV con IMPRESSION: 1. Findings consistent with small bowel obstruction with transition at level of anterior abdominal wall just left of midline. Small bowel feces stasis decreased from prior exam. No pneumatosis. No fluid collection or ascites. 2. Probable seromatous fluid the mesh leaves, approximately 1 cm in thickness on each side, new from prior CT 06/08/2022. 3. Prior cholecystectomy. No ductal dilatation.
--- NOTE | ~2022-06-08 | CT_ITS ---
EXAMINATION: CT ABDOMEN AND PELVIS WITH CONTRAST CLINICAL INFORMATION: Vomiting stool COMPARISON: CT abdomen pelvis 06/08/2021 TECHNIQUE: Multidetector volumetric images were obtained from the superior aspect of the liver through the pubic symphysis following administration 85 mL of Omnipaque 350 intravenous contrast. Sagittal and coronal reformatted images were obtained on the technologist's workstation. Oral contrast: No This CT examination was performed using dose optimization techniques as appropriate, variously including the following: *Automated exposure control *Adjustment of mA and/or kV according to patient size (this includes techniques or standardized protocols for targeted exams where dose is matched to indication/reason for exam; i.e. extremities or head) *Use of iterative reconstruction technique DLP: 933 mGy-cm FINDINGS: LUNG BASES: Mild dependent bibasilar atelectasis. LIVER, GALLBLADDER, AND BILIARY TREE: The liver is normal in size, shape, and attenuation. No focal hepatic lesion or biliary ductal dilatation is present. Status post cholecystectomy. PANCREAS: Mild atrophic. No pancreatic lesion or peripancreatic inflammatory change. SPLEEN: Unremarkable. ADRENAL GLANDS: Unremarkable. KIDNEYS AND URETERS: Symmetric nephrograms. No renal calculi or hydronephrosis. No renal lesions. Mild nonspecific bilateral perirenal fascial stranding. BLADDER: Unremarkable. GASTROINTESTINAL TRACT: Multiple surgical clips adjacent to the GE junction. Stomach is mildly distended with fluid, small amount of fat, and air. Fluid-filled dilation of the duodenum. Multiple dilated small bowel loops within the abdomen with a transition point in the anterior right hemiabdomen immediately deep to the patient's ventral abdominal wall mesh material identified best on sagittal image 92. The more distal small bowel/ileum is completely decompressed. There is some fecalization of small bowel contents proximal to the transition point consistent with stasis. No bowel wall thickening or pneumatosis. There is a small amount of ascites and interloop free fluid. Extensive colonic diverticulosis. No evidence of acute diverticulitis. Normal appendix. No intra-abdominal free air. ABDOMINAL WALL: Status post mesh ventral abdominal wall hernia repair. Fat-containing left inguinal hernia. No other abdominal wall hernia. LYMPH NODES: No lymphadenopathy. VASCULAR: Normal caliber abdominal aorta. Mild to moderate narrowing of the proximal SMA due to noncalcified plaque, series 3 image 29. Moderate vascular calcifications. PELVIC VISCERA: Prostate gland is small in size. Multiple prostate brachytherapy implant seeds. OSSEOUS STRUCTURES: Unchanged compression deformities at T11 and L1. Status post prior L1 vertebroplasty. Similar appearance of multilevel degenerative disc disease in the visualized thoracolumbar spine. Status post left total hip arthroplasty. Chronic ununited fracture of the left L2 transverse process. Chronic right 12th rib fracture and a few additional chronic bilateral lower rib fracture deformities. Healed left L1 and L3 transverse process fractures. CT/CT abdomen pelvis w IV con IMPRESSION: 1. Findings compatible with high-grade small bowel obstruction with transition point in the anterior right hemiabdomen immediately deep to the patient's ventral abdominal wall mesh material, as above. 2. Small amount of ascites and interloop free fluid. No bowel wall thickening, pneumatosis, or free air. 3. Additional chronic findings, as described.
--- NOTE | ~2022-06-08 | XR_ITS ---
EXAMINATION: XR CHEST CLINICAL INFORMATION: Low-grade fever, assess for pneumonia. COMPARISON: Chest radiographs 06/10/2022, 06/09/2022, 06/08/2022, CT abdomen 06/19/2022 TECHNIQUE: Portable upright AP x2 views of the chest are obtained. FINDINGS: There is a right-sided PICC with tip at junction SVC and right atrium. There are low lung volumes. The vascularity is within normal. There is no lobar or segmental airspace consolidation or groundglass opacity or effusion. The cardiac and hilar and mediastinal contours and bony structures are similar to prior studies. There are surgical clips again noted esophagogastric region. XR/XR chest 1V IMPRESSION: Low lung volumes. No airspace consolidation, groundglass opacity, or effusion.
--- NOTE | ~2022-06-08 | XR_ITS ---
EXAMINATION: XR ABDOMEN KUB CLINICAL INDICATION: Postoperative ileus versus small bowel obstruction COMPARISON: Previous KUB 06/13/2022 TECHNIQUE: AP view of the abdomen. FINDINGS: There are dilated fluid-filled loops of small bowel increased from previous exam. There is a paucity of bowel gas seen in the large bowel. There is evidence of previous abdominal hernia repair with mesh. There are skin musa. No free air. No suspicious calcifications. Surgical clips in the upper midline abdomen. Radiation seeds in the pelvis. Degenerative changes of spine. Post upper lumbar spine vertebroplasty. Left hip replacement. XR/XR KUB IMPRESSION: Dilated small bowel increased from previous exam and possibly of bowel gas in the large bowel. Differential would include postoperative ileus and obstruction. Imaging follow-up recommended.
--- NOTE | ~2022-06-08 | XR_ITS ---
EXAMINATION: XR ABDOMEN KUB CLINICAL INDICATION: Follow-up small bowel follow. Rule out obstruction versus ileus. COMPARISON: Small bowel follow-through from yesterday TECHNIQUE: AP view of the abdomen. FINDINGS: There is a nasogastric tube in the proximal stomach. There are still dilated loops of small bowel. There is oral contrast seen in the colon. There is no evidence of free air. There are skin musa. There are degenerative changes of the spine and post kyphoplasty changes. XR/XR KUB IMPRESSION: Persistent dilated small bowel. There is oral contrast in the colon. Differential would include ileus and partial small bowel obstruction.
--- NOTE | ~2022-06-08 | XR_ITS ---
EXAMINATION: XR ABDOMEN COMPLETE CLINICAL INDICATION: Follow-up small bowel obstruction. COMPARISON: CT abdomen/pelvis from 06/08/2022. KUB from 06/09/2022. TECHNIQUE: 2 views of the abdomen. FINDINGS: GASTROINTESTINAL: The tip of the enteric tube is at the level of the gastric fundus. Surgical clips are present around the region of the esophagogastric junction. Small bowel loops remain abnormally dilated with air-fluid levels. The small bowel is distended up to 4 cm maximum diameter on the upright views and approximately 5 cm maximum diameter on the supine views. No improvement compared to 06/09/2022. There is a paucity of distal bowel gas. No evidence of colonic or rectal distention. No pneumatosis intestinalis or pneumoperitoneum. OTHER: There are radiation seeds within the prostate gland. The visualized components of the left total hip arthroplasty are in normal position. Again noted is cement augmentation of the L1 vertebral body and old compression fracture of T11 vertebral body. Cholecystectomy. Metallic tacks from abdominal wall mesh placement. XR/XR acute abdomen series IMPRESSION: There is persistent small bowel obstruction. There has been no improvement compared to 06/09/2022. No pneumoperitoneum or other significant change.
[2022-06-08 20:27] VITALS: BP 135/86; PULSE 104; RESP 24; TEMP 36.6; O2SAT 93; BMI 33.9
--- NOTE | 2022-06-08 20:30 | ECG_ITS ---
Test Reason : ABD PAIN Blood Pressure : / mmHG Vent. Rate : 104 BPM Atrial Rate : 104 BPM P-R Int : 178 ms QRS Dur : 088 ms QT Int : 358 ms P-R-T Axes : 028 024 054 degrees QTc Int : 470 ms Sinus tachycardia with Premature atrial complexes Otherwise normal ECG When compared with ECG of 13-FEB-2022 16:45, No significant changes seen Referred By: Meena Sarmiento Electronically Signed By:CONOR VALERO MD
[2022-06-08] MEDS: 0.9 % Sodium Chloride 1,000 ML 999 ML IVCONT (21:09)
--- NOTE | 2022-06-08 21:09 | PC.NURSE ---
pt brought into room from waiting room. pt placed on material control analyst, ekg and bloodwork obtained. iv placed. pt medicated according to mar
[2022-06-08 21:10] LABS: MANUAL DIFF FLAG NO
[2022-06-08 21:12] LABS: Basophils Percent Auto 0.2 % (0-2); Eosinophils Percent Auto 0.1 % (0-4); Hematocrit 45.3 % (42.0-52.0); Hemoglobin 15.4 g/dl (14.0-18.0); Imm Gran Abs Auto 0.08 X10*3/uL (0.00-0.03); Imm Gran Pct Auto 0.5 % (0.0-0.4); Lymphocytes Absolute Auto 2.9 X10*3/uL (1.2-4.9); Lymphocytes Percent Auto 16.7 % (20-40); Mean Corpuscular Hemoglobin 30.6 pg (27.0-33.0); Mean Corpuscular Volume 89.9 fL (80.0-98.0); Mean Platelet Volume 10.4 fL (9.4-12.4); Monocytes Absolute Auto 1.3 X10*3/uL (0.1-1.2); Monocytes Percent Auto 7.5 % (2-11); Neutrophils Absolute Auto 12.8 x10*3/uL (2.0-8.3); Platelet Count 307 X10*3/uL (160-400); Red Blood Count 5.04 X10*6/uL (4.60-5.80); Red Cell Distribution Width 13.5 % (11.0-16.0); White Blood Count 17.1 X10*3/uL (4.8-10.8)
[2022-06-08 21:17] LABS: INTERNATIONAL NORM RATIO 1.1 (0.9-1.1)
[2022-06-08 21:50] LABS: Influenza A PCR NEGATIVE (Negative); Influenza B PCR NEGATIVE (Negative); Resp Syncy Virus RNA Qual PCR NEGATIVE (Negative); SARS COV2 PCR INHOUSE NEGATIVE (Negative)
[2022-06-08 21:54] LABS: Alanine Aminotransferase 14 U/L (0-40); Albumin Level 4.2 g/dL (3.5-5.0); Alkaline Phosphatase 87 U/L (39-117); Anion Gap 17 (12-20); Aspartate Amino Transferase 14 U/L (5-37); Bilirubin Total 0.6 mg/dL (0.0-1.0); Blood Urea Nitrogen 28 mg/dL (9-16); Calcium 8.9 mg/dL (8.4-10.2); Carbon Dioxide 24 mmol/L (22-29); Chloride 100 mmol/L (96-108); Creatinine Clr Calc Pharmacy 85.5; Estimated Glomerular Filt Rate > 60; Glucose Random 113 mg/dL (60-115); Magnesium 1.7 mg/dL (1.6-2.6); Sodium 137 mmol/L (135-145); Total Protein 6.7 g/dL (6.5-8.0)
[2022-06-08] MEDS: iohexoL 350 MG/ML 100 ML INFUS..BTL IV (22:11)
--- NOTE | 2022-06-08 23:08 | ED_ITS ---
HPI - Abdominal Pain General Chief Complaint: Abdominal Pain Stated Complaint: No bowel movement in 3 days Time Seen by Provider: 06/08/22 21:49 Source: patient Mode of arrival: ambulatory Limitations: no limitations History of Present Illness HPI narrative: 76-year-old man hx of afib on apixaban, GERD, HTN, anemia, diverticulits, prostate cancer, PUD presenting with diffuse abdominal pain constipation nausea and vomiting. Last bowel movement was 4 days ago and has not had flatus. He vomited 2 times today the most recent time being an hour before coming into the ED he reports that vomit was yellow. Patient denies blood in vomit and denies blood in stool last time he went to the bathroom. last meal was early this morning and he had 2 eggs. Patient reports that he took a laxative 4 days ago with no relief of symptoms. Patient has a history abdominal surgeries in the past including 3 hernia surgery repair with mesh and a history of diverticulitis. Patient not passing gas. Patient was negative for dyspnea, chest pain, headaches, fever. Hx of diverticulitis. No hx of bowel obstructions. Related Data Home Medications Medication Instructions Recorded Confirmed alfuzosin 10 mg tablet,extended 10 mg PO QAM 03/09/20 03/08/22 release 24 hr divalproex 500 mg tablet,delayed 500 mg PO QAM 05/26/20 03/08/22 release qeuwghlick-pmwmovuiqecul-jxdhdapm 1 tab PO BEDTIME PRN Migraine 10/20/20 03/08/22 50 mg-325 mg-40 mg tablet Headache colchicine 0.6 mg tablet (Colcrys) 0.6 mg PO BID PRN Pain 10/20/20 03/08/22 lorazepam 1 mg tablet 1 tab PO BID PRN Anxiety 10/20/20 03/08/22 venlafaxine 150 mg 187.5 mg PO DAILY 04/17/21 03/08/22 capsule,extended release 24 hr melatonin 10 mg tablet 10 mg PO BEDTIME PRN 11/23/21 03/08/22 fluticasone propionate 45 2 puff inhalation BID 12/14/21 03/08/22 mcg-salmeterol 21 mcg/actuation HFA inhaler (Advair HFA) Previous Rx's Medication Instructions Recorded lactulose 20 gram/30 mL oral 20 g (30 mL) PO BID PRN 08/01/20 solution constipation #3,000 mL diphenhydramine HCl 25 mg capsule 25 mg PO TID PRN nausea and 09/10/20 (Benadryl) vomiting #14 caps metoclopramide HCl 10 mg tablet 10 mg PO Q6H PRN nausea and 09/10/20 (Reglan) vomiting #30 tabs clotrimazole 1 % topical cream 1 appl topical BID 4 weeks #45 11/30/20 grams miconazole nitrate 2 % topical 1 appl topical BID #71 grams 11/30/20 powder (Zeasorb AF) clotrimazole-betamethasone 1 1 appl topical BID 4 weeks #45 12/06/20 %-0.05 % topical cream grams nystatin 100,000 unit/gram topical 1 appl topical TID #30 grams 12/29/20 ointment syringe with needle, safety 3 mL #100 ea 06/02/21 25 gauge x 5/8 (BD Safety-Jackie Detachable Needle) ferrous sulfate 325 mg (65 mg 325 mg PO DAILY #90 tabs 08/08/21 iron) tablet (Feosol) fexofenadine 180 mg tablet 180 mg PO DAILY PRN allergy 08/10/21 symptoms #90 caps baclofen 10 mg tablet 10 mg PO TID PRN Spasms #90 tabs 09/04/21 hydrocortisone 2.5 % topical cream 1 appl topical BID PRN skin 12/14/21 irritation 7 days #30 grams albuterol sulfate 90 mcg/actuation 2 puff inhalation Q6H PRN 12/22/21 aerosol inhaler (ProAir HFA) shortness of breath or wheezing #8.5 grams omeprazole 40 mg capsule,delayed 40 mg PO DAILY 90 days #90 caps 01/18/22 release amlodipine 10 mg tablet 10 mg PO DAILY #90 caps 02/21/22 fluticasone propionate 45 2 puff inhalation BID #12 grams 02/23/22 mcg-salmeterol 21 mcg/actuation HFA inhaler (Advair HFA) apixaban 5 mg tablet 5 mg PO BID 90 days #180 tabs 03/07/22 cyanocobalamin (vitamin B-12) 1,000 mcg subcut .Qmonthly #3 caps 04/16/22 1,000 mcg/mL injection solution Allergies Allergy/AdvReac Type Severity Reaction Status Date / Time carisoprodol [From Soma] Allergy Mild MENTAL Verified 03/08/22 15:43 STATUS CHANGE, BECOMES AGGRESIVE codeine [Codeine] Allergy Mild STOMACH Verified 03/08/22 15:43 UPSET, RASH gabapentin AdvReac Intermediate lousy Verified 03/08/22 15:43 feeling Review of Systems Review of Systems Constitutional : No Weight loss, No Fever, No Chills, No Fatigue, No Malaise ENT/Mouth : No sore throat, No Rhinorrhea Eyes: No Eye Pain, No Swelling, No Redness Cardiovascular : No Chest Pain, No SOB, No Dyspnea on Exertion, No Orthopnea, No Edema, No Palpitations Respiratory : No Cough, No Sputum, No Wheezing Gastrointestinal : + Nausea, + Vomiting, No Diarrhea, No Constipation, + abdominal Pain, No Hematochezia, No Melena Genitourinary : No Dysuria, No Urinary Frequency, No Hematuria, Musculoskeletal : No joint pain, No Myalgias, No Joint Swelling Skin : No Skin Lesions, No rash Neuro : No Weakness, No Numbness, No Dizziness, No Headache Psych : No Anxiety/Panic, No Depression All other systems reviewed and are negative Yes all other systems are reviewed and are negative [facility] Past Medical History Attestation statement: The following information was validated with the patient. Source: old records reviewed and nursing notes reviewed Medical History Allergic bronchitis Anxiety and depression Asthma exacerbation Atrial fibrillation Chest tightness Constipation Degenerative disc disease Diverticular disease Dyspnea on exertion Dysuria Fatigue Fatigue Generalized anxiety disorder GERD (gastroesophageal reflux disease) Gout Headache Hospital discharge follow-up Hypertension Iron deficiency anemia Knee fracture, left Leukocytosis Low vitamin D level Moderate recurrent major depression Obesity (BMI 30-39.9) Obstructive sleep apnea Peptic ulcer disease Premature atrial complexes Prostate cancer Rash Serum potassium elevated Shortness of breath SOB (shortness of breath) on exertion Tinea cruris Vitamin B12 deficiency Vitamin D deficiency Wedge compression fracture of L1 vertebra Surgical History H/O hernia repair H/O rectal polypectomy History of bowel resection History of cholecystectomy History of colonoscopy History of hemiarthroplasty of left hip History of knee replacement procedure of left knee History of pyloroplasty Family History Family History Father Diabetes Acute kidney failure Glaucoma Mother Lung cancer Social History Social History Housing: Apartment Alcohol intake: unknown Patient Tobacco Use Status: Former Tobacco user Quit Date: Tobacco use type: Cigar e-Cigarette/Vaping Use: Currently Using Second Hand Smoke Exposure: No Advance Directives: No Advance Directives Information Provided: No Advance Directives Date on File: 01/30/20 service: No Current occupational status: retired Cognitive needs: No Hearing needs: Yes Vision needs: Yes Physical Exam ED Vital Signs: Vital Signs - 24 hr 06/08/22 20:27 Temperature 97.9 F Pulse Rate 104 H Respiratory Rate 24 H Blood Pressure 135/86 Pulse Oximetry 93 Oxygen Delivery Method Room Air BMI result Body Mass Index 33.9 vss Appearance: Alert.? Oriented X3.? No acute distress.? Head: Normocephalic, atraumatic, no step-offs or deformities Eyes: Pupils equal, round and reactive to light.? Neck: Normal inspection.? Neck supple.? CVS: Normal heart rate and rhythm.? Pulses normal.? Respiratory: No respiratory distress.? Breath sounds normal.? Abdomen: Soft and distended abdomen with hypoactive bowel sounds throughout.? Diffusely tender. Skin: Skin warm and dry.? Normal skin color.? Normal skin turgor.? Extremities: No lower extremity edema.? No calf ttp. 5/5 strength to bilateral upper and lower extremities Neuro: Oriented X 3.? No motor deficit.? No sensory deficit. CN 2-12 intact Course Reevaluation(s) Reevaluation #1: CBC demonstrating leukocytosis, patient has been noted to have leukocytosis in the past however this could be reactive secondary to nausea and vomiting. I do not suspect infection at this time. Chemistry with slightly elevated BUN likely secondary to dehydration. Coags within normal limits. COVID, influenza negative. Time: 22:30 Reevaluation #2: CT of the abdomen pelvis compatible with high-grade small-bowel obstruction with transition point in the anterior right hemiabdomen immediately deep to the patient's ventral abdomen wall mesh material. Small amount of ascites and interloop free fluid. No bowel wall thickening, pneumatosis or free air. [place] text to surgery to surgery Time: 23:16 Reevaluation #3: Surgery to admit patient. Nursing still needs to place NG tube. Will put admit orders and at this time. Time: 23:42 Medical Decision Making Medical Decision Making [facility] Narrative: [id number] This is a 76-year-old male presenting with constipation x4 days, nausea, vomiting, abdominal pain and discomfort times a few days worsening. History of abdominal surgeries in the past. Physical examination with distended abdomen, diffusely tender abdomen and hypoactive bowel sounds throughout. Concerns for small or large bowel obstruction given patient's history. Unlikely acute abdomen. Less likely ascites however will rule out. Plan at this time labs, imaging. Differential Diagnosis Differential Diagnoses: The differential diagnosis associated with the pres entation includes Concerns for small or large bowel obstruction given patient's history. Unlikely acute abdomen. Less likely ascites however will rule out. Admission/Observation Consideration of admission/observation: Escalation of care including admission/observation considered Likely requires hospital admission Consult Healthcare Provider Management of the patient was discussed with: Warp Placer Lab Data [facility] Lab Attestation statement: I reviewed the patient's lab results. 06/08/22 20:56 06/08/22 21:35 Labs: Lab Results 06/08/22 06/08/22 06/08/22 Range/Units 20:56 20:56 20:56 WBC 17.1 H (4.8-10.8) X10*3/uL RBC 5.04 (4.60-5.80) X10*6/uL Hgb 15.4 (14.0-18.0) g/dl Hct 45.3 (42.0-52.0) % MCV 89.9 (80.0-98.0) fL MCH 30.6 (27.0-33.0) pg MCHC 34.0 (31.0-36.0) g/dl RDW 13.5 (11.0-16.0) % Plt Count 307 (160-400) X10*3/uL MPV 10.4 (9.4-12.4) fL Immature Gran % (Auto) 0.5 H (0.0-0.4) % Neut % (Auto) 75.0 H (45-73) % Lymph % (Auto) 16.7 L (20-40) % [place] % (Auto) 7.5 (2-11) % Eos % (Auto) 0.1 (0-4) % Baso % (Auto) 0.2 (0-2) % Lymph # (Auto) 2.9 (1.2-4.9) X10*3/uL [place] # (Auto) 1.3 H (0.1-1.2) X10*3/uL Eos # (Auto) 0.0 (0.0-0.4) X10*3/uL Baso # (Auto) 0.0 (0.0-0.2) X10*3/uL Abs Immat Gran (auto) 0.08 H (0.00-0.03) X10*3/uL Absolute Neuts (auto) 12.8 H (2.0-8.3) x10*3/uL Absolute Nucleated RBC 0.000 (0.0-0.012) X10*3/uL Nucleated RBC % (auto) 0.0 (0.0-0.2) /100WBC PT 13.0 (10.0-13.1) SEC INR 1.1 (0.9-1.1) Sodium (135-145) mmol/L Potassium (3.3-5.1) mmol/L Chloride (96-108) mmol/L Carbon Dioxide (22-29) mmol/L Anion Gap (12-20) BUN (9-16) mg/dL Creatinine (0.5-1.4) mg/dL Estim Creat Clear Calc Estimated GFR Random Glucose (60-115) mg/dL Calcium (8.4-10.2) mg/dL Magnesium (1.6-2.6) mg/dL Total Bilirubin (0.0-1.0) mg/dL AST (5-37) U/L ALT (0-40) U/L Alkaline Phosphatase (39-117) U/L Total Protein (6.5-8.0) g/dL Albumin (3.5-5.0) g/dL Influenza Type A (PCR) NEGATIVE (Negative) Influenza Type B (PCR) NEGATIVE (Negative) RSV RNA Qual (PCR) NEGATIVE (Negative) SARS-CoV-2 RNA (RT-PCR) NEGATIVE (Negative) 06/08/22 Range/Units 21:35 WBC (4.8-10.8) X10*3/uL RBC (4.60-5.80) X10*6/uL Hgb (14.0-18.0) g/dl Hct (42.0-52.0) % MCV (80.0-98.0) fL MCH (27.0-33.0) pg MCHC (31.0-36.0) g/dl RDW (11.0-16.0) % Plt Count (160-400) X10*3/uL MPV (9.4-12.4) fL Immature Gran % (Auto) (0.0-0.4) % Neut % (Auto) (45-73) % Lymph % (Auto) (20-40) % [place] % (Auto) (2-11) % Eos % (Auto) (0-4) % Baso % (Auto) (0-2) % Lymph # (Auto) (1.2-4.9) X10*3/uL [place] # (Auto) (0.1-1.2) X10*3/uL Eos # (Auto) (0.0-0.4) X10*3/uL Baso # (Auto) (0.0-0.2) X10*3/uL Abs Immat Gran (auto) (0.00-0.03) X10*3/uL Absolute Neuts (auto) (2.0-8.3) x10*3/uL Absolute Nucleated RBC (0.0-0.012) X10*3/uL Nucleated RBC % (auto) (0.0-0.2) /100WBC PT (10.0-13.1) SEC INR (0.9-1.1) Sodium 137 (135-145) mmol/L Potassium 4.0 (3.3-5.1) mmol/L Chloride 100 (96-108) mmol/L Carbon Dioxide 24 (22-29) mmol/L Anion Gap 17 (12-20) BUN 28 H (9-16) mg/dL Creatinine 0.97 (0.5-1.4) mg/dL Estim Creat Clear Calc 85.5 Estimated GFR > 60 Random Glucose 113 (60-115) mg/dL Calcium 8.9 D (8.4-10.2) mg/dL Magnesium 1.7 (1.6-2.6) mg/dL Total Bilirubin 0.6 (0.0-1.0) mg/dL AST 14 (5-37) U/L ALT 14 (0-40) U/L Alkaline Phosphatase 87 (39-117) U/L Total Protein 6.7 (6.5-8.0) g/dL Albumin 4.2 (3.5-5.0) g/dL Influenza Type A (PCR) (Negative) Influenza Type B (PCR) (Negative) RSV RNA Qual (PCR) (Negative) SARS-CoV-2 RNA (RT-PCR) (Negative) Independent Interpretation I performed an independent interpretation of an: CT Scan (CT scan concerning for high-grade small-bowel obstruction.) Radiology Impression Discussion of test interpretation with radiology: I have reviewed the radiologist's reading. External Record Review External record reviewed: Inpatient record, Office record, Outpatient record, Prior outpatient labs, Prior outpatient radiology, Primary care record and Outside ED record Core Measures AMI core measures followed: Yes Measure exclusions: not indicated Medications Administered Discontinued Medications Generic Name Dose Route Start Last Admin Trade Name Freq PRN Reason Stop Dose Admin Fentanyl 50 mcg 06/08/22 23:05 06/08/22 23:22 Fentanyl Citrate/Pf 100 Mcg/2 Ml Vial IVPUSH 06/08/22 23:06 50 mcg ONCE ONE Administration Protocol Sodium Chloride 1,000 mls @ 999 mls/hr 06/08/22 20:30 06/08/22 22:40 Ns IVCONT 06/08/22 21:30 Infused .Q1H1M MAGALIS Infusion Iohexol 100 ml 06/08/22 22:10 06/08/22 22:11 Iohexol 350 Mg/Ml 100 Ml Infus..Btl IV 06/08/22 22:11 85 ml ONCE ONE Administration Critical Care Time Critical Care Time Critical Care Time: Yes Total Critical Care Time: 35 Attestation: I attest to this time spent taking care of the patient, obtaining history, physical, reviewing labs, imaging, speaking to my attending, speaking to specialist. Discharge Plan Discharge Clinical Impression: Small bowel obstruction Patient Disposition: Admitted As Inpatient
[2022-06-08] MEDS: fentaNYL citrate/PF 100 MCG/2 ML VIAL 50 MCG IVPUSH (23:22)
--- NOTE | 2022-06-08 23:30 | PC.NURSE ---
this rn and burnisher placed ng in L nare. pt tolerated well. gastric content yellow brown in color. pt medicated according to mar
[2022-06-09 00:06] VITALS: BP 101/67; PULSE 100; RESP 26; TEMP 36.8; O2SAT 95
[2022-06-09 00:51] LABS: Lactic Acid 1.1 mmol/L (0.5-2.0)
[2022-06-09] MEDS: 0.9 % Sodium Chloride 1,000 ML 150 ML IVCONT ×4 (00:52→22:41)
--- NOTE | 2022-06-09 01:28 | PC.NURSE ---
med rec completed
--- NOTE | 2022-06-09 02:39 | PC.NURSE ---
pt reporting uncomfortable due to ng tube and unable to sleep. this rn made dr lozada aware. telephone order placed with read back. ativan 1mg iv push once. order read back to dr lozada
[2022-06-09] MEDS: LORazepam 2 MG/ML VIAL 1 MG IVPUSH ×2 (02:47→14:58)
--- NOTE | 2022-06-09 02:49 | PC.NURSE ---
pt medicated according to mar. pt reminded to be careful while moving in bed. pt educated on importance of keeping L arm straight so iv fluid can be administered
[2022-06-09] MEDS: HYDROmorphone HCl 1 MG/ML SYRINGE 0.5 MG IVPUSH ×3 (03:03→11:19)
[2022-06-09] MEDS: ondansetron HCL 4 MG/2 ML VIAL IVPUSH ×2 (05:41→14:58)
[2022-06-09 05:52] LABS: Appearance Urine Clear; Color Urine Yellow; Glucose Urine UA Negative (Negative); Leukocyte Esterase Urine Negative (Negative); Nitrite Urine Negative (Negative); Specific Gravity - Urine >= 1.030 (1.005-1.025); UMIC TRIGGER UACC YES; Urine Blood Negative (Negative); Urine Ketones Trace mg/dL (Negative); Urine Protein 30 (1+) mg/dL (Neg-Trace)
[2022-06-09 05:53] VITALS: BP 122/84; PULSE 97; RESP 18; TEMP 36.7; O2SAT 93
--- NOTE | 2022-06-09 05:54 | PC.NURSE ---
this rn assisted pt in using urinal at bedside. pt repositioned back to bed pt wanted to sit on edge of bed for a for few minutes. pt medicated according to jun. urine sample sent down to lab. pt repositioned back to bed. bianca
[2022-06-09 06:03] LABS: Bacteria Urine None Seen (None Seen); Hyaline Casts Urine 0-2 /LPF (0-2); Squamous Epithelial Cell Urine 0-2 /HPF (0-2); WBC Urine 0-5 /HPF (0-5)
[2022-06-09 07:17] LABS: MANUAL DIFF FLAG NO
[2022-06-09 07:22] LABS: Basophils Percent Auto 0.2 % (0-2); Eosinophils Percent Auto 0.1 % (0-4); Hematocrit 43.3 % (42.0-52.0); Hemoglobin 14.8 g/dl (14.0-18.0); Imm Gran Abs Auto 0.08 X10*3/uL (0.00-0.03); Imm Gran Pct Auto 0.5 % (0.0-0.4); Lymphocytes Absolute Auto 2.2 X10*3/uL (1.2-4.9); Lymphocytes Percent Auto 13.2 % (20-40); Mean Corpuscular HGB Conc 34.2 g/dl (31.0-36.0); Mean Corpuscular Hemoglobin 31.2 pg (27.0-33.0); Mean Corpuscular Volume 91.2 fL (80.0-98.0); Mean Platelet Volume 10.8 fL (9.4-12.4); Monocytes Absolute Auto 1.4 X10*3/uL (0.1-1.2); Monocytes Percent Auto 8.4 % (2-11); Neutrophils Percent Auto 77.6 % (45-73); Platelet Count 289 X10*3/uL (160-400); Red Blood Count 4.75 X10*6/uL (4.60-5.80); Red Cell Distribution Width 13.6 % (11.0-16.0); White Blood Count 16.8 X10*3/uL (4.8-10.8)
[2022-06-09 07:33] LABS: Magnesium 1.7 mg/dL (1.6-2.6)
[2022-06-09 07:35] LABS: Anion Gap 15 (12-20); Blood Urea Nitrogen 29 mg/dL (9-16); Calcium 8.7 mg/dL (8.4-10.2); Carbon Dioxide 21 mmol/L (22-29); Chloride 104 mmol/L (96-108); Creatinine Clr Calc Pharmacy 96.4; Estimated Glomerular Filt Rate > 60; Glucose Random 125 mg/dL (60-115); Potassium 4.3 mmol/L (3.3-5.1); Sodium 136 mmol/L (135-145)
--- NOTE | 2022-06-09 10:10 | PHA.MEDREC ---
Addendum entered by Aguilar Abarca 06/09/22 10:11: Patient states that they only take eliquis once a day, despite prescription written for twice daily. Original Note: Pharmacy Consult ? Medication Reconciliation Pharmacy has completed the medication reconciliation. Patient poor historian of medications and takes care of own medications. Could only name a few medications and confirm as well. Called [facility] pharmacy and cross-references with claim history to confirm medications.
[2022-06-09 10:27] VITALS: BP 116/72; PULSE 87; RESP 18; O2SAT 92
--- NOTE | 2022-06-09 11:22 | PC.NURSE ---
pt medicated per provider order for 10/10 abd pain.
--- NOTE | 2022-06-09 13:02 | PM.HPGS ---
History of Present Illness History of Present Illness Date of Service: 06/09/22 Chief complaint: abdo pain Narrative: Ottoniel Salas is a 76 year old male who comes into the ER with 4 day history of abdominal pain and nausea and vomiting. He has had many abdominal surgeries in the past from vagotomy in his teens to colonic resection for diverticulitis and open yumi and a hernia repair with mesh. He says he has been having colonoscopies regularly and is due for another one. He says his abdomen is always large and distended because of the hernia. He lives alone. He is also anticoagulated he says for clots - not PE or lung issues. He also has had prostate cancer and had radiation for that. It seems like he hasnt had many episodes of bowel obstructions in the past despite his many abdominal surgeries. Review of Systems Constitutional: Constitutional: Reports no additional constitutional complaints Respiratory: Respiratory: Reports no additional respiratory complaints Gastrointestinal: Gastrointestinal: Reports constipation, Reports diarrhea, Reports nausea and Reports vomiting Genitourinary: Genitourinary: Reports no additional male genitourinary complaints FOR[facility], [facility] Past Medical History Medical History Allergic bronchitis Anxiety and depression Asthma exacerbation Atrial fibrillation Chest tightness Constipation Degenerative disc disease Diverticular disease Dyspnea on exertion Dysuria Fatigue Fatigue Generalized anxiety disorder GERD (gastroesophageal reflux disease) Gout Headache Hospital discharge follow-up Hypertension Iron deficiency anemia Knee fracture, left Leukocytosis Low vitamin D level Moderate recurrent major depression Obesity (BMI 30-39.9) Obstructive sleep apnea Peptic ulcer disease Premature atrial complexes Prostate cancer Rash Serum potassium elevated Shortness of breath SOB (shortness of breath) on exertion Tinea cruris Vitamin B12 deficiency Vitamin D deficiency Wedge compression fracture of L1 vertebra Family History Family History Father Diabetes Acute kidney failure Glaucoma Mother Lung cancer Surgical History Surgical History H/O hernia repair H/O rectal polypectomy History of bowel resection History of cholecystectomy History of colonoscopy History of hemiarthroplasty of left hip History of knee replacement procedure of left knee History of pyloroplasty Social History Social History Household Members: None Housing: Apartment Do you presently have visiting nurse or other home services: No Alcohol intake: unknown Patient Tobacco Use Status: Former Tobacco user Quit Date: Tobacco use type: Cigar e-Cigarette/Vaping Use: Currently Using Second Hand Smoke Exposure: No Advance Directives Date on File: 01/30/20 service: No Current occupational status: retired Cognitive needs: No Hearing needs: Yes Vision needs: Yes Meds Allergies Allergy/AdvReac Type Severity Reaction Status Date / Time carisoprodol [From Soma] Allergy Mild MENTAL Verified 03/08/22 15:43 STATUS CHANGE, BECOMES AGGRESIVE codeine [Codeine] Allergy Mild STOMACH Verified 03/08/22 15:43 UPSET, RASH gabapentin AdvReac Intermediate lousy Verified 03/08/22 15:43 feeling Active Medications: Current Medications Hydromorphone HCl (Hydromorphone Hcl 1 Mg/Ml Syringe) 0.5 mg IVPUSH Q4H PRN; Protocol PRN Reason: Pain, Severe (Pain Scale 7-10) Last Admin: 06/09/22 11:19 Dose: 0.5 mg Sodium Chloride (Ns) 1,000 mls @ 150 mls/hr IVCONT .[id number] [facility] Last Admin: 06/09/22 06:49 Dose: 150 mls/hr Ondansetron HCl (Ondansetron Hcl 4 Mg/2 Ml Vial) 4 mg IVPUSH Q8H PRN PRN Reason: Nausea and Vomiting Last Admin: 06/09/22 05:41 Dose: 4 mg Pharmacy Consult (Consult Rx Perform Med Rec) 1 each MISCELLANE ONCE PRN PRN Reason: Consult order Sodium Chloride (0.9 % Sodium Chloride Flush 3 Ml Syringe) 3 ml IVFLUSH QSHIFT [facility] Last Admin: 06/09/22 07:06 Dose: Not Given Home Medications Medication Instructions Recorded Confirmed Last Taken Type divalproex 500 mg tablet,delayed 500 mg PO DAILY 05/26/20 06/09/22 1 Day Ago History release ~06/08/22 [id number] 1 tab PO BEDTIME PRN Migraine 10/20/20 06/09/22 Unknown History 50 mg-325 mg-40 mg tablet Headache lorazepam 1 mg tablet 1 tab PO BID 10/20/20 06/09/22 1 Day Ago History ~06/08/22 venlafaxine 150 mg 150 mg PO DAILY 04/17/21 06/09/22 1 Day Ago History capsule,extended release 24 hr ~06/08/22 fluticasone propionate 45 2 puff inhalation BID 12/14/21 06/09/22 1 Day Ago History mcg-salmeterol 21 mcg/actuation ~06/08/22 HFA inhaler (Advair HFA) cyanocobalamin (vitamin B-12) 1,000 mcg subcut QMONTH 06/09/22 06/09/22 1 Week Ago History 1,000 mcg/mL injection solution ~06/02/22 fluticasone propionate 50 1 spray intranasal BID PRN Allergy 06/09/22 06/09/22 Unknown History mcg/actuation nasal Symptoms spray,suspension latanoprost 0.005 % eye drops 1 drp ophthalmic (eye) BEDTIME 06/09/22 06/09/22 06/07/22 History lorazepam 1 mg tablet 1 mg PO DAILY PRN Anxiety 06/09/22 06/09/22 Unknown History omeprazole 40 mg capsule,delayed 40 mg PO DAILY@0630 06/09/22 06/09/22 1 Day Ago History release ~06/08/22 tadalafil 5 mg tablet 1 tab PO DAILY 06/09/22 06/09/22 1 Day Ago History ~06/08/22 venlafaxine 37.5 mg 1 cap PO DAILY 06/09/22 06/09/22 1 Day Ago History capsule,extended release 24 hr ~06/08/22 vibegron 75 mg tablet (Gemtesa) 1 tab PO DAILY 06/09/22 06/09/22 1 Day Ago History ~06/08/22 Physical Exam Vital Signs: Vital Signs: Last Vital Signs Temp 98.0 F 06/09/22 05:53 Pulse 87 06/09/22 10:27 Resp 18 06/09/22 10:27 BP 116/72 06/09/22 10:27 Pulse Ox 92 06/09/22 10:27 O2 Del Method 06/09/22 10:27 BMI result Body Mass Index 33.9 Const: General: in distress and tired appearing Nutritional Appearance: overweight Orientation/consciousness: oriented to person, oriented to place and oriented to time Limitations: physical limitations Eyes: General: appearance normal, both eyes and all related structures Resp: Effort & Inspection: normal respiratory effort and able to speak in complete sentences Auscultation: clear to auscultation bilaterally and diminished lung sounds Cardio: Rate: regular rate GI: Other: abdomen large and firm and distended and tender quiet multiple incision areas Skin: General skin exam: no rashes or lesions noted Neuro: General: oriented to person, oriented to place, oriented to time and moves all extremities Psych: Appearance: grossly normal Mental Status: mental status grossly normal Speech and movement: Slowed speech present (Psych) Affect: normal affect Attitude: cooperative Results Results Labs: Short CBC 06/08/22 06/09/22 Range/Units 20:56 06:57 WBC 17.1 H 16.8 H (4.8-10.8) X10*3/uL Hgb 15.4 14.8 (14.0-18.0) g/dl Hct 45.3 43.3 (42.0-52.0) % Plt Count 307 289 (160-400) X10*3/uL BMP 06/08/22 06/09/22 21:35 06:57 Sodium 137 136 Potassium 4.0 4.3 Chloride 100 104 Carbon Dioxide 24 21 L BUN 28 H 29 H Creatinine 0.97 0.86 Calcium 8.9 D 8.7 Liver Function 06/08/22 Range/Units 21:35 Total Bilirubin 0.6 (0.0-1.0) mg/dL AST 14 (5-37) U/L ALT 14 (0-40) U/L Alkaline Phosphatase 87 (39-117) U/L Albumin 4.2 (3.5-5.0) g/dL Urine 06/09/22 Range/Units 05:45 Urine Color Yellow Urine Appearance Clear Urine pH 5.0 (5.0-9.0) Ur Specific Bypro >= 1.030 H (1.005-1.025) Urine Protein 30 (1+) H (Neg-Trace) mg/dL Urine Glucose (UA) Negative (Negative) mg/dL Abdomen CT scan report/results: report reviewed and image reviewed CT scan - pelvis: report reviewed and image reviewed Assessment and Plan (1) Small bowel obstruction: Status: Acute Plan 76 year old male with medical issues and with small bowel obstruction probably due to adhesions from multiple surgeries in the past. He is a difficult surgical candidate due to all his prior surgeries and large mesh repair of hernia. He says all his prior surgeries have been failures. He says he didnt think he would survive his last surgery and has been having regular colonscopies due to polyps and is concerned about having more procedures. At this point also anticoagulated although he says it is not due to PE. We will try to keep conservative therapy - support npo, ngtube, iv hydration, hold his anticoagulation, med consult and hope he improves. if he doesnt he will need surgical exploration. will get med team to do med clearance too. pt understands and agrees with the plan. Time Spent With Patient Time: Total time managing care of this patient today ____ minutes. Quality Stroke Does the patient have a stroke diagnosis?: No VTE Prior VTE?: No VTE Risk Level:: Surgical - low VTE Device Contraindication: N/A - Device Ordered VTE Drug Contraindication: N/A - Med Ordered Procedures Date of Service Date of Service: 06/09/22
--- NOTE | 2022-06-09 13:16 | PC.NURSE ---
pt repositioned in bed, NG tube suction on int low per provider order, pt denies any nausea at this time, reporting cont'd abd pain. pt arm repositioned, pt reeducated on keeping arm straight.
--- NOTE | 2022-06-09 13:34 | HO.PM.IMCN ---
History of Present Illness Data of Consult Service Date: 06/09/22 Primary Care Provider: Thania Almaraz MD [facility] Reason for consult: Medical management Patient 76-year-old man with a history HTN, diverticulitis, prostate cancer treated with radiation, history of blood clots on apixaban, mood disorder, depression, allergic asthma, and PUD presented to the ED with diffuse abdominal pain, constipation, nausea, and vomiting. The patient was found to have an SBO and currently treated conservatively with bowel rest, IVF, and NGT. Admitted to surgery with consult medicine for medical management. Patient has no other acute complaints other than presenting symptoms. Review of Systems Review of Systems: Abdominal pain Constipation Nausea, vomiting Denies chest pain/pressure, palpitations Denies shortness of breath Yes all other systems are reviewed and are negative [facility] Medical History Allergic bronchitis Anxiety and depression Asthma exacerbation Atrial fibrillation Chest tightness Constipation Degenerative disc disease Diverticular disease Dyspnea on exertion Dysuria Fatigue Fatigue Generalized anxiety disorder GERD (gastroesophageal reflux disease) Gout Headache Hospital discharge follow-up Hypertension Iron deficiency anemia Knee fracture, left Leukocytosis Low vitamin D level Moderate recurrent major depression Obesity (BMI 30-39.9) Obstructive sleep apnea Peptic ulcer disease Premature atrial complexes Prostate cancer Rash Serum potassium elevated Shortness of breath SOB (shortness of breath) on exertion Tinea cruris Vitamin B12 deficiency Vitamin D deficiency Wedge compression fracture of L1 vertebra Family History Father Diabetes Acute kidney failure Glaucoma Mother Lung cancer Surgical History H/O hernia repair H/O rectal polypectomy History of bowel resection History of cholecystectomy History of colonoscopy History of hemiarthroplasty of left hip History of knee replacement procedure of left knee History of pyloroplasty Social History Housing: Apartment Alcohol intake: unknown Patient Tobacco Use Status: Former Tobacco user Quit Date: Tobacco use type: Cigar Smoked in Last 30 Days: No e-Cigarette/Vaping Use: Currently Using Second Hand Smoke Exposure: No Use of substances other than those prescribed or required for medical reasons: No Advance Directives: No Advance Directives Information Provided: No Advance Directives Date on File: 01/30/20 service: No Current occupational status: retired Cognitive needs: No Hearing needs: Yes Vision needs: Yes Meds Allergies Allergy/AdvReac Type Severity Reaction Status Date / Time carisoprodol [From Soma] Allergy Mild MENTAL Verified 03/08/22 15:43 STATUS CHANGE, BECOMES AGGRESIVE codeine [Codeine] Allergy Mild STOMACH Verified 03/08/22 15:43 UPSET, RASH gabapentin AdvReac Intermediate lousy Verified 03/08/22 15:43 feeling Active Medications: Current Medications Hydromorphone HCl (Hydromorphone Hcl 1 Mg/Ml Syringe) 0.5 mg IVPUSH Q4H PRN; Protocol PRN Reason: Pain, Severe (Pain Scale 7-10) Last Admin: 06/09/22 11:19 Dose: 0.5 mg Sodium Chloride (Ns) 1,000 mls @ 150 mls/hr IVCONT .Q6H40M [facility] Last Admin: 06/09/22 06:49 Dose: 150 mls/hr Ondansetron HCl (Ondansetron Hcl 4 Mg/2 Ml Vial) 4 mg IVPUSH Q8H PRN PRN Reason: Nausea and Vomiting Last Admin: 06/09/22 05:41 Dose: 4 mg Pharmacy Consult (Consult Rx Perform Med Rec) 1 each MISCELLANE ONCE PRN PRN Reason: Consult order Sodium Chloride (0.9 % Sodium Chloride Flush 3 Ml Syringe) 3 ml IVFLUSH QSHIFT [facility] Last Admin: 06/09/22 07:06 Dose: Not Given Home Medications Medication Instructions Recorded Confirmed Last Taken Type divalproex 500 mg tablet,delayed 500 mg PO DAILY 05/26/20 06/09/22 1 Day Ago History release ~06/08/22 [id number] 1 tab PO BEDTIME PRN Migraine 10/20/20 06/09/22 Unknown History 50 mg-325 mg-40 mg tablet Headache lorazepam 1 mg tablet 1 tab PO BID 10/20/20 06/09/22 1 Day Ago History ~06/08/22 venlafaxine 150 mg 150 mg PO DAILY 04/17/21 06/09/22 1 Day Ago History capsule,extended release 24 hr ~06/08/22 fluticasone propionate 45 2 puff inhalation BID 12/14/21 06/09/22 1 Day Ago History mcg-salmeterol 21 mcg/actuation ~06/08/22 HFA inhaler (Advair HFA) cyanocobalamin (vitamin B-12) 1,000 mcg subcut QMONTH 06/09/22 06/09/22 1 Week Ago History 1,000 mcg/mL injection solution ~06/02/22 fluticasone propionate 50 1 spray intranasal BID PRN Allergy 06/09/22 06/09/22 Unknown History mcg/actuation nasal Symptoms spray,suspension latanoprost 0.005 % eye drops 1 drp ophthalmic (eye) BEDTIME 06/09/22 06/09/22 06/07/22 History lorazepam 1 mg tablet 1 mg PO DAILY PRN Anxiety 06/09/22 06/09/22 Unknown History omeprazole 40 mg capsule,delayed 40 mg PO DAILY@0630 06/09/22 06/09/22 1 Day Ago History release ~06/08/22 tadalafil 5 mg tablet 1 tab PO DAILY 06/09/22 06/09/22 1 Day Ago History ~06/08/22 venlafaxine 37.5 mg 1 cap PO DAILY 06/09/22 06/09/22 1 Day Ago History capsule,extended release 24 hr ~06/08/22 vibegron 75 mg tablet (Gemtesa) 1 tab PO DAILY 06/09/22 06/09/22 1 Day Ago History ~06/08/22 Physical Exam Vital Signs and Narrative: Vital Signs: Last Vital Signs Temp 98.0 F 06/09/22 05:53 Pulse 87 06/09/22 10:27 Resp 18 06/09/22 10:27 BP 116/72 06/09/22 10:27 Pulse Ox 92 06/09/22 10:27 O2 Del Method 06/09/22 10:27 BMI result Body Mass Index 33.9 General: AOx3, looking uncomfortable in bed, NGT in place Resp: CTA bilaterally CVS: S1, S2, RRR GI: +BS, abdomen diffusely tender, firm, distended Skin: No rash Neuro: Cranial nerves II-XII grossly intact. Motor grossly intact Extremities: No edema Psych: Appropriate affect Results Labs 06/09/22 06:57 06/09/22 06:57 Labs: Laboratory Results - last 24 hr 06/08/22 06/08/22 06/08/22 20:56 20:56 20:56 MCV 89.9 MCH 30.6 MCHC 34.0 RDW 13.5 Plt Count 307 MPV 10.4 Immature Gran % (Auto) 0.5 H Neut % (Auto) 75.0 H Lymph % (Auto) 16.7 L [place] % (Auto) 7.5 Eos % (Auto) 0.1 Baso % (Auto) 0.2 Lymph # (Auto) 2.9 [place] # (Auto) 1.3 H Eos # (Auto) 0.0 Baso # (Auto) 0.0 Abs Immat Gran (auto) 0.08 H Absolute Neuts (auto) 12.8 H Absolute Nucleated RBC 0.000 Nucleated RBC % (auto) 0.0 PT 13.0 INR 1.1 Anion Gap Estim Creat Clear Calc Estimated GFR Random Glucose Lactic Acid Calcium Magnesium Total Bilirubin AST ALT Alkaline Phosphatase Total Protein Albumin Urine Color Urine Appearance Urine pH Ur Specific [place] Urine Protein Urine Glucose (UA) Urine Ketones Urine Blood Urine Nitrite Ur Leukocyte Esterase Urine RBC Urine WBC Ur Squamous Epith Cells Urine Bacteria Hyaline Casts Influenza Type A (PCR) NEGATIVE Influenza Type B (PCR) NEGATIVE RSV RNA Qual (PCR) NEGATIVE SARS-CoV-2 RNA (RT-PCR) NEGATIVE 06/08/22 06/09/22 06/09/22 21:35 00:28 05:45 MCV MCH MCHC RDW Plt Count MPV Immature Gran % (Auto) Neut % (Auto) Lymph % (Auto) [place] % (Auto) Eos % (Auto) Baso % (Auto) Lymph # (Auto) [place] # (Auto) Eos # (Auto) Baso # (Auto) Abs Immat Gran (auto) Absolute Neuts (auto) Absolute Nucleated RBC Nucleated RBC % (auto) PT INR Anion Gap 17 Estim Creat Clear Calc 85.5 Estimated GFR > 60 Random Glucose 113 Lactic Acid 1.1 Calcium 8.9 D Magnesium 1.7 Total Bilirubin 0.6 AST 14 ALT 14 Alkaline Phosphatase 87 Total Protein 6.7 Albumin 4.2 Urine Color Yellow Urine Appearance Clear Urine pH 5.0 Ur Specific [place] >= 1.030 H Urine Protein 30 (1+) H Urine Glucose (UA) Negative Urine Ketones Trace Urine Blood Negative Urine Nitrite Negative Ur Leukocyte Esterase Negative Urine RBC 3-5 H Urine WBC 0-5 Ur Squamous Epith Cells 0-2 Urine Bacteria None Seen Hyaline Casts 0-2 Influenza Type A (PCR) Influenza Type B (PCR) RSV RNA Qual (PCR) SARS-CoV-2 RNA (RT-PCR) 06/09/22 06/09/22 06/09/22 06:57 06:57 06:57 MCV 91.2 MCH 31.2 MCHC 34.2 RDW 13.6 Plt Count 289 MPV 10.8 Immature Gran % (Auto) 0.5 H Neut % (Auto) 77.6 H Lymph % (Auto) 13.2 L [place] % (Auto) 8.4 Eos % (Auto) 0.1 Baso % (Auto) 0.2 Lymph # (Auto) 2.2 [place] # (Auto) 1.4 H Eos # (Auto) 0.0 Baso # (Auto) 0.0 Abs Immat Gran (auto) 0.08 H Absolute Neuts (auto) 13.0 H Absolute Nucleated RBC 0.000 Nucleated RBC % (auto) 0.0 PT INR Anion Gap 15 Estim Creat Clear Calc 96.4 Estimated GFR > 60 Random Glucose 125 H Lactic Acid Calcium 8.7 Magnesium 1.7 Total Bilirubin AST ALT Alkaline Phosphatase Total Protein Albumin Urine Color Urine Appearance Urine pH Ur Specific [place] Urine Protein Urine Glucose (UA) Urine Ketones Urine Blood Urine Nitrite Ur Leukocyte Esterase Urine RBC Urine WBC Ur Squamous Epith Cells Urine Bacteria Hyaline Casts Influenza Type A (PCR) Influenza Type B (PCR) RSV RNA Qual (PCR) SARS-CoV-2 RNA (RT-PCR) Imaging Radiologist's Impressions: Impressions Chest X-Ray 06/08/22 21:21 IMPRESSION: Hypoexpanded with basilar markings more likely due to atelectasis. Abdomen/Pelvis CT 06/08/22 22:15 IMPRESSION: 1. Findings compatible with high-grade small bowel obstruction with transition point in the anterior right hemiabdomen immediately deep to the patient's ventral abdominal wall mesh material, as above. 2. Small amount of ascites and interloop free fluid. No bowel wall thickening, pneumatosis, or free air. 3. Additional chronic findings, as described. Chest X-Ray 06/09/22 00:20 IMPRESSION: Enteric tube terminates in the stomach. Assessment and Plan (1) Small bowel obstruction: Status: Acute (2) Generalized anxiety disorder: Status: Acute Plan Patient 76-year-old man with a history HTN, diverticulitis, prostate cancer treated with radiation, history of blood clots on apixaban, mood disorder, depression, allergic asthma, and PUD presented to the ED with diffuse abdominal pain, constipation, nausea, and vomiting. The patient was found to have an SBO and currently treated conservatively with bowel rest, IVF, and NGT. Admitted to surgery with consult medicine for medical management. Hx of blood clot on Eliquis Hold Eliquis in anticipation of possible surgical intervention Lovenox for DVT prophylaxis Mood disorder/depression Continue Depakote, venlafaxine Allergic asthma Continue home inhalers prn, hold prn PO meds HTN Continue amlodipine Anxiety Switch po lorazepam to IV GERD Hold po omerprazole IV protonix qd BPH/overactive bladder Hold Haley Dominguez Thank you for allowing us to participate in the care of this pt. We will follow during his stay. Please let us know if there are any acute concerns or questions. Time Spent With Patient Time: Total time managing care of this patient today ____ minutes.
[2022-06-09] MEDS: HYDROmorphone HCl 0.5 MG/0.5 ML SYRINGE IVPUSH ×2 (14:58→19:25)
[2022-06-09] MEDS: Enoxaparin Sodium 40 MG/0.4 ML SYRINGE SUBCUT (14:58)
--- NOTE | 2022-06-09 15:11 | PC.NURSE ---
pt repositioned, NG tube continues to drain on low int suction, abd appears more distended, pt restless, reporting 10/10 pain, medicated per provider order. provider notified about pt abd.
--- NOTE | 2022-06-09 15:42 | PC.NURSE ---
RN-RN report given to [place] [id number].
--- NOTE | 2022-06-09 16:58 | PC.NURSE ---
spoke w dr lozada, NG tube pulled back 4in, XR ordered to confirm placement per verbal provider order. no change in drainage after NG tube adjustment notes.
--- NOTE | 2022-06-09 17:16 | PC.NURSE ---
called pharmacy for missing med, it was brought to the inpt bed
[2022-06-09 17:39] VITALS: BP 126/76; PULSE 93; RESP 22; O2SAT 96
[2022-06-09] MEDS: Valproic Acid (as Sodium Salt) 125 MG in Dextrose 5 % 50 ML 52.5 MG IV ×2 (17:58→22:19)
[2022-06-09 18:58] VITALS: BP 122/87; PULSE 89; RESP 18; TEMP 36.9; O2SAT 93
[2022-06-09] MEDS: HYDROmorphone HCl 1 MG/ML SYRINGE IVPUSH (20:47)
[2022-06-09 20:51] VITALS: BP 112/78; PULSE 81; RESP 18; TEMP 36.9; O2SAT 98
--- NOTE | 2022-06-09 23:46 | PM.EVENT ---
Event Note Date of Service: 06/09/22 Event Note: patient with worsening abdominal pain, no nausea or vomiting at this time. Ordered KUB which shows no free air, significantly dilated air-filled loops of small bowel in the left laxmi abdomen consistent with no small-bowel obstruction patient's culture also show positive for Gram-positive cocci in clusters. Will treat with IV antibiotics, repeat blood cultures, Time Spent With Patient Time: Total time managing care of this patient today ____ minutes.
[2022-06-10] VITALS (21 sets, daily range): BP systolic 106–159; BP diastolic 61–95; PULSE 81–100; RESP 12–22; TEMP 36.2–37.1; O2SAT 90–97
[2022-06-10] MEDS: HYDROmorphone HCl 0.5 MG/0.5 ML SYRINGE IVPUSH ×3 (00:49→08:45)
[2022-06-10 02:32] LABS: Hematocrit 41.8 % (42.0-52.0); Hemoglobin 14.3 g/dl (14.0-18.0); Mean Corpuscular HGB Conc 34.2 g/dl (31.0-36.0); Mean Corpuscular Hemoglobin 31.1 pg (27.0-33.0); Mean Corpuscular Volume 90.9 fL (80.0-98.0); Mean Platelet Volume 10.3 fL (9.4-12.4); Platelet Count 278 X10*3/uL (160-400)
[2022-06-10] MEDS: Albuterol/Iprat 2.5/0.5MG 3 ML AMPUL.NEB INHALE (02:41)
[2022-06-10 02:46] LABS: Anion Gap 17 (12-20); Blood Urea Nitrogen 40 mg/dL (9-16); Calcium 8.2 mg/dL (8.4-10.2); Carbon Dioxide 21 mmol/L (22-29); Chloride 104 mmol/L (96-108); Creatinine Clr Calc Pharmacy 84.6; Estimated Glomerular Filt Rate > 60; Glucose Random 117 mg/dL (60-115); Potassium 4.1 mmol/L (3.3-5.1); Sodium 138 mmol/L (135-145)
[2022-06-10] MEDS: LORazepam 2 MG/ML VIAL 1 MG IVPUSH (02:51)
[2022-06-10 02:54] LABS: B Type Natriuretic Peptide 55 pg/mL (<100)
--- NOTE | 2022-06-10 03:05 | PC.NURSE ---
Addendum entered by Katelin Colby RN 06/10/22 07:01: To hold Lovenox today as per Dr. Lopez , incoming RN made aware. Original Note: Pt seen on bed at start of shift c/o 7/10 abd pain, prn Dilaudid 0.5 mg IV given, with no effect as per pt, Dr. Ascencio was made aware, Dilaudid 1 mg IV ordered and given, KUB done, pt was able to sleep after. At 2335 ,lab called for a critical result, blood culture positive for gram positive cocci in clusters, Dr. Ascencio was made aware, Vancomycin was ordered, Dr. Lopez was also notified, med started, repeat blood culture was drawn by phleb. At 0130, pt was awaken and again with abd pain 8/10, prn Dilaudid 0.5 m IV given, pt verbalized relief but pt still groaning and when asked he c/o some SOB, O2 sats =90-93% RA, noted with fine crackles on both bases, O2 at 2Lmin via NC placed and O2 sats went to 96%, Dr. Ascencio was made aware, Rt called to give prn albuterol, no puff available, Dr. Ascencio was asked to give neb instead, BNP drawn, CXR done, neb given by RT with relief.
[2022-06-10] MEDS: Valproic Acid (as Sodium Salt) 125 MG in Dextrose 5 % 50 ML 52.5 MG IV ×4 (03:54→21:45)
[2022-06-10] MEDS: Pantoprazole Sodium 40 MG/10 ML VIAL IVPUSH (06:01)
--- NOTE | 2022-06-10 07:26 | PHA.PROG ---
Admission Date/Time: June 09, 2022 00:06 Indication: bacteremia Weight in k.398 kg Adjusted body weight in Kg: [place] body weight in Kg: Obesity Dosing Indication % IBW: Serum Creatinine - Last 168 Hours 06/08/22 06/09/22 06/10/22 21:35 06:57 02:24 Creatinine 0.97 0.86 0.98 Estimated CrCl and GFR - Last 168 Hours 06/08/22 06/09/22 06/10/22 21:35 06:57 02:24 Estim Creat Clear Calc 85.5 96.4 84.6 Estimated GFR > 60 > 60 > 60 Vancomycin Loading Dose: 2000mg X 1 Current Vancomycin Dosing Regimen: 750mg Q12H Vancomycin Monitoring using AUC goal of 400 - 600 range with trough as surrogate marker: 471mg/L Date and Time for next Vancomycin Level to be drawn: 06/11/22 @1100 Pharmacist Comments on Vancomycin Plan: using obesity model, will continue to montior renal. Predicted trough of 14.7mg/L Vancomycin dosing will take advantage of [employer] as a clinical decision support tool that uses Bayesian modeling to calculate individual patient's pharmacokinetic parameters and forecast the patient's drug concentration time course with the target goal AUC 24 range of 400 - 600 mg/L/hr.
[2022-06-10] MEDS: 0.9 % Sodium Chloride Flush 3 ML SYRINGE IVFLUSH ×2 (08:50→17:16)
--- NOTE | 2022-06-10 09:45 | P.PNIM_ITS ---
Subjective Subjective Date of Service: 06/10/22 Interval History: Seen and evaluated this morning Report worsening abdominal pain and distension Still NGT been place, on suction Not passing any you can as Possible surgical intervention today No other overnight events Review of Systems Review of Systems: Yes all other systems are reviewed and are negative Physical Exam Vital Signs: Vital Signs: Last Vital Signs Temp 97.5 F 06/10/22 07:40 Pulse 86 06/10/22 07:40 Resp 18 06/10/22 07:40 BP 106/61 06/10/22 07:40 Pulse Ox 96 06/10/22 07:40 O2 Del Method 06/10/22 07:40 O2 Flow Rate 2.0 06/10/22 07:40 BMI result Body Mass Index 33.9 Const: Other: Constitutional : Awake, interactive, in distress from pain and distension Neck : Normal inspection, Supple Cardiovascular : RRR, no JVP, no lower extremity edema Respiratory : Fair bilateral air entry, very minimal basal crackles, no wheezes or rhonchi Gastrointestinal: soft, decreased bowel sounds, significant distension and tympanic percussion with mild tenderness over of the abdomen Skin : Warm, Dry Neurological : Alert & oriented x3, No focal deficit Objective Data Active Medications Albuterol Sulfate (Albuterol Sulfate 90 Mcg 8 Gm Inhaler) 2 puff INHALE Q6H PRN PRN Reason: shortness of breath or wheezing Albuterol/Ipratropium (Albuterol/Iprat 2.5/0.5mg 3 Ml Ampul.Neb) 3 ml INHALE RQ4H PRN PRN Reason: Shortness of Breath/Wheezing Last Admin: 06/10/22 02:41 Dose: 3 ml Documented By: SASHA Enoxaparin Sodium (Enoxaparin Sodium 40 Mg/0.4 Ml Syringe) 40 mg SUBCUT Q24H [facility] Last Admin: 06/09/22 14:58 Dose: 40 mg Documented By: RAMEZ Fluticasone Propionate (Fluticasone Propionate Nasal 16 Gm [place]) 1 spray NOSTRIL-B BID PRN PRN Reason: Allergy Symptoms Fluticasone/Vilanterol (Fluticasone/Vilanterol 100/25 Blst.W.Dev) 1 puff INHALE RDAILY [facility] Last Admin: 06/10/22 07:41 Dose: Not Given Documented By: KAL Non-Admin Reason: Med Not Available Hydromorphone HCl (Hydromorphone Hcl 0.5 Mg/0.5 Ml Syringe) 1 mg IVPUSH Q3H PRN; Protocol PRN Reason: Pain, Severe (Pain Scale 7-10) Sodium Chloride (Ns) 1,000 mls @ 150 mls/hr IVCONT .Q6H40M [facility] Last Admin: 06/10/22 03:41 Dose: Not Given Documented By: RAVEN Non-Admin Reason: IV Running Valproic Acid 125 mg/ Dextrose 51.25 mls @ 52.504 mls/hr IV Q6H [facility] Last Infusion: 06/10/22 05:11 Dose: 0 mls/hr Documented By: RAVEN Vancomycin HCl 750 mg/ Sodium (Chloride) 265 mls @ 265 mls/hr IV Q12H [facility] Latanoprost (Latanoprost 0.005 % Ophth Saira 2.5 Ml Drops) 1 drop EYE-BOTH BEDTIME [facility] Last Admin: 06/09/22 23:11 Dose: Not Given Documented By: RAVEN Non-Admin Reason: Med Not Available Lorazepam (Lorazepam 2 Mg/Ml Vial) 1 mg IVPUSH Q12H [facility] Last Admin: 06/10/22 02:51 Dose: 1 mg Documented By: RAVEN Naloxone HCl (Naloxone Hcl Nasal 4 Mg [place]) 4 mg NOSTRILALT ONCE PRN PRN Reason: Opiate Reversal Ondansetron HCl (Ondansetron Hcl 4 Mg/2 Ml Vial) 4 mg IVPUSH Q8H PRN PRN Reason: Nausea and Vomiting Last Admin: 06/09/22 14:58 Dose: 4 mg Documented By: RAMEZ Pantoprazole Sodium (Pantoprazole Sodium 40 Mg/10 Ml Vial) 40 mg IVPUSH DAILY@0630 [facility] Last Admin: 06/10/22 06:01 Dose: 40 mg Documented By: RAVEN Pharmacy Consult (Consult Rx Perform Med Rec) 1 each MISCELLANE ONCE PRN PRN Reason: Consult order Pharmacy Consult (Consult Rx Vancomycin Dosing) 1 each MISCELLANE DAILY PRN PRN Reason: Consult order Sodium Chloride (0.9 % Sodium Chloride Flush 3 Ml Syringe) 3 ml IVFLUSH QSHIFT [facility] Last Admin: 06/10/22 08:50 Dose: 3 ml Documented By: RHODA Venlafaxine HCl (Venlafaxine Hcl Er 37.5 Mg Cap.Er.24h) 37.5 mg PO DAILY [facility] Last Admin: 06/09/22 14:52 Dose: Not Given Documented By: RAMEZ Non-Admin Reason: ng tube Venlafaxine HCl (Venlafaxine Hcl Er 150 Mg Cap.Er.24h) 150 mg PO DAILY [facility] Last Admin: 06/09/22 14:52 Dose: Not Given Documented By: RAMEZ Non-Admin Reason: ng tube Labs 06/10/22 02:24 06/10/22 02:24 Labs: Laboratory Results - last 24 hr 06/10/22 06/10/22 06/10/22 02:24 02:24 02:24 MCV 90.9 MCH 31.1 MCHC 34.2 RDW 14.0 Plt Count 278 MPV 10.3 Absolute Nucleated RBC 0.000 Nucleated RBC % (auto) 0.0 Anion Gap 17 Estim Creat Clear Calc 84.6 Estimated GFR > 60 Random Glucose 117 H Calcium 8.2 L B-Natriuretic Peptide 55 Microbiology Microbiology Results: Microbiology 06/09/22 00:28 Blood Culture - Preliminary Blood - Venous Prelim: GPC Gram Stain only 06/09/22 00:29 Blood Culture - Preliminary Blood - Venous No growth after 24 hours. Assessment and Plan (1) Small bowel obstruction: Status: Acute (2) Atrial fibrillation: Status: Acute (3) Chronic anticoagulation: Status: Acute Plan Patient 76-year-old man with a history HTN, diverticulitis, prostate cancer treated with radiation, history of blood clots on apixaban, mood disorder, depression, allergic asthma, and PUD presented to the ED with diffuse abdominal pain, constipation, nausea, and vomiting. The patient was found to have an SBO and currently treated conservatively with bowel rest, IVF, and NGT. Admitted to surgery with consult medicine for medical management. Perioperatively clearance None emergency surgery, no acute coronary syndrome RCRI score of 0 Patient is low risk for perioperative cardiac risk Can proceed to operating room with no further testing necessary at this point Hx of PE on Eliquis Hold Eliquis in anticipation of possible surgical intervention Mood disorder/depression Continue Depakote, venlafaxine Allergic asthma Continue home inhalers prn, hold prn PO meds HTN Continue amlodipine Anxiety Switch po lorazepam to IV GERD Hold po omerprazole IV protonix qd BPH/overactive bladder Hold Haley Dominguez DVT PPX Lovenox, on hold Thank you for allowing us to participate in the care of this pt. will continue to follow with you during the hospital stay Time Spent With Patient Time: Total time managing care of this patient today ____ minutes. Quality Stroke Does the patient have a stroke diagnosis?: No VTE Prior VTE?: No VTE Risk Level:: Surgical - low VTE Device Contraindication: N/A - Device Ordered VTE Drug Contraindication: N/A - Med Ordered
[2022-06-10] MEDS: Venlafaxine HCl ER 37.5 MG CAP.ER.24H PO (09:50)
[2022-06-10] MEDS: Venlafaxine HCl ER 150 MG CAP.ER.24H PO (09:50)
[2022-06-10] MEDS: 0.9 % Sodium Chloride 1,000 ML 150 ML IVCONT ×2 (09:57→16:53)
--- NOTE | 2022-06-10 10:51 | P.PNGS_ITS ---
Subjective Subjective Date of Service: 06/10/22 Interval history: pt with worsening pain overnight requiring more dilaudid. also with some SOB and on some low dose n/c oxygen not throwing up around the ng tube which continues to put out large amount of brownish liquid. Physical Exam Vital Signs: Vital Signs: Last Vital Signs Temp 97.5 F 06/10/22 07:40 Pulse 86 06/10/22 07:40 Resp 18 06/10/22 07:40 BP 106/61 06/10/22 07:40 Pulse Ox 96 06/10/22 07:40 O2 Del Method 06/10/22 07:40 O2 Flow Rate 2.0 06/10/22 07:40 BMI result Body Mass Index 33.9 Const: General: cooperative and in distress (moderate) moderate GI: Other: abdomen - is softer than yesterday but tender difusely and hypo bowel sounds and very distended Objective Data Active Medications Albuterol Sulfate (Albuterol Sulfate 90 Mcg 8 Gm Inhaler) 2 puff INHALE Q6H PRN PRN Reason: shortness of breath or wheezing Albuterol/Ipratropium (Albuterol/Iprat 2.5/0.5mg 3 Ml Ampul.Neb) 3 ml INHALE RQ4H PRN PRN Reason: Shortness of Breath/Wheezing Last Admin: 06/10/22 02:41 Dose: 3 ml Documented By: SASHA Enoxaparin Sodium (Enoxaparin Sodium 40 Mg/0.4 Ml Syringe) 40 mg SUBCUT Q24H [facility] Last Admin: 06/09/22 14:58 Dose: 40 mg Documented By: RAMEZ Fluticasone Propionate (Fluticasone Propionate Nasal 16 Gm [place]) 1 spray NOSTRIL-B BID PRN PRN Reason: Allergy Symptoms Fluticasone/Vilanterol (Fluticasone/Vilanterol 100/25 Blst.W.Dev) 1 puff INHALE RDAILY [facility] Last Admin: 06/10/22 07:41 Dose: Not Given Documented By: KAL Non-Admin Reason: Med Not Available Hydromorphone HCl (Hydromorphone Hcl 0.5 Mg/0.5 Ml Syringe) 1 mg IVPUSH Q3H PRN; Protocol PRN Reason: Pain, Severe (Pain Scale 7-10) Sodium Chloride (Ns) 1,000 mls @ 150 mls/hr IVCONT .Q6H40M [facility] Last Admin: 06/10/22 09:57 Dose: 150 mls/hr Documented By: RHODA Valproic Acid 125 mg/ Dextrose 51.25 mls @ 52.504 mls/hr IV Q6H [facility] Last Infusion: 06/10/22 05:11 Dose: 0 mls/hr Documented By: RAVEN Vancomycin HCl 750 mg/ Sodium (Chloride) 265 mls @ 265 mls/hr IV Q12H [facility] Latanoprost (Latanoprost 0.005 % Ophth Saira 2.5 Ml Drops) 1 drop EYE-BOTH BEDTIME [facility] Last Admin: 06/09/22 23:11 Dose: Not Given Documented By: RAVEN Non-Admin Reason: Med Not Available Lorazepam (Lorazepam 2 Mg/Ml Vial) 1 mg IVPUSH Q12H [facility] Last Admin: 06/10/22 02:51 Dose: 1 mg Documented By: RAVEN Naloxone HCl (Naloxone Hcl Nasal 4 Mg [place]) 4 mg NOSTRILALT ONCE PRN PRN Reason: Opiate Reversal Ondansetron HCl (Ondansetron Hcl 4 Mg/2 Ml Vial) 4 mg IVPUSH Q8H PRN PRN Reason: Nausea and Vomiting Last Admin: 06/09/22 14:58 Dose: 4 mg Documented By: RAMEZ Pantoprazole Sodium (Pantoprazole Sodium 40 Mg/10 Ml Vial) 40 mg IVPUSH DAILY@0630 [facility] Last Admin: 06/10/22 06:01 Dose: 40 mg Documented By: RAVEN Pharmacy Consult (Consult Rx Perform Med Rec) 1 each MISCELLANE ONCE PRN PRN Reason: Consult order Pharmacy Consult (Consult Rx Vancomycin Dosing) 1 each MISCELLANE DAILY PRN PRN Reason: Consult order Sodium Chloride (0.9 % Sodium Chloride Flush 3 Ml Syringe) 3 ml IVFLUSH QSHIFT [facility] Last Admin: 06/10/22 08:50 Dose: 3 ml Documented By: RHODA Venlafaxine HCl (Venlafaxine Hcl Er 37.5 Mg Cap.Er.24h) 37.5 mg PO DAILY [facility] Last Admin: 06/10/22 09:50 Dose: 37.5 mg Documented By: RHODA Venlafaxine HCl (Venlafaxine Hcl Er 150 Mg Cap.Er.24h) 150 mg PO DAILY [facility] Last Admin: 06/10/22 09:50 Dose: 150 mg Documented By: RHODA Labs 06/10/22 02:24 06/10/22 02:24 Labs: Laboratory Results - last 24 hr 06/10/22 06/10/22 06/10/22 02:24 02:24 02:24 MCV 90.9 MCH 31.1 MCHC 34.2 RDW 14.0 Plt Count 278 MPV 10.3 Absolute Nucleated RBC 0.000 Nucleated RBC % (auto) 0.0 Anion Gap 17 Estim Creat Clear Calc 84.6 Estimated GFR > 60 Random Glucose 117 H Calcium 8.2 L B-Natriuretic Peptide 55 Microbiology Microbiology Results: Microbiology 06/09/22 00:28 Blood Culture - Preliminary Blood - Venous Prelim: GPC Gram Stain only 06/09/22 00:29 Blood Culture - Preliminary Blood - Venous No growth after 24 hours. Procedures Date of Service Date of Service: 06/10/22 Progress Note: A&P Assessment and plan (1) Small bowel obstruction: Status: Acute Assessment and Plan: 76 year old male with high grade small bowel obstruction - some things seem a bit improved but overall more pain and worisome exam with ct already showing high grade obstruction yesterday. we gave him a chance for the eliquis to wear off and conservative npo,ngt and ivf to work but not doing as well. hospitalist team consider him low risk cardiac issues so will proceed with the operation pt agrees to risks and benefits of exploratory laparotomy with lysis of adhesions possible bowel resection and possible ostomy creation. an Icu bed can be made available if needed Time Spent With Patient Time: Total time managing care of this patient today ____ minutes. Quality Stroke Does the patient have a stroke diagnosis?: No VTE Prior VTE?: No VTE Risk Level:: Surgical - low VTE Device Contraindication: N/A - Device Ordered VTE Drug Contraindication: N/A - Med Ordered
[2022-06-10] MEDS: ondansetron HCL 4 MG/2 ML VIAL IVPUSH ×2 (10:55→21:45)
--- NOTE | 2022-06-10 12:00 | HO.ANESPROP2 ---
HPI - Anesthesia Eval Consult details Narrative: SBO PMFSH Active Problems Active Problems: All Active Problems (Updated 06/10/22 @ 09:58 by Jos Zelaya MD) Chronic anticoagulation (Acute) Small bowel obstruction (Acute) Fatigue (Acute) Atrial fibrillation (Acute) Asthma (Acute) Generalized anxiety disorder (Acute) Chronic low back pain (Acute) B12 deficiency anemia (Acute) Pulmonary embolism (Acute) Iron deficiency anemia (Acute) Prostate cancer (Acute) Peptic ulcer disease (Acute) Iron deficiency anemia (Acute) Gout (Acute) Diverticular disease (Acute) Degenerative disc disease (Acute) Obesity (BMI 30-39.9) (Acute) GERD (gastroesophageal reflux disease) (Acute) Hypertension (Acute) Past Medical History Medical History Allergic bronchitis Anxiety and depression Asthma exacerbation Atrial fibrillation Chest tightness Constipation Degenerative disc disease Diverticular disease Dyspnea on exertion Dysuria Fatigue Fatigue Generalized anxiety disorder GERD (gastroesophageal reflux disease) Gout Headache Hospital discharge follow-up Hypertension Iron deficiency anemia Knee fracture, left Leukocytosis Low vitamin D level Moderate recurrent major depression Obesity (BMI 30-39.9) Obstructive sleep apnea Peptic ulcer disease Premature atrial complexes Prostate cancer Rash Serum potassium elevated Shortness of breath SOB (shortness of breath) on exertion Tinea cruris Vitamin B12 deficiency Vitamin D deficiency Wedge compression fracture of L1 vertebra Family History Family History Father Diabetes Acute kidney failure Glaucoma Mother Lung cancer Family history of problems with anesthesia: No Surgical History Surgical History H/O hernia repair H/O rectal polypectomy History of bowel resection History of cholecystectomy History of colonoscopy History of hemiarthroplasty of left hip History of knee replacement procedure of left knee History of pyloroplasty History of Problems with Anesthesia: No Social History Social History Household Members: None Housing: Apartment Do you presently have visiting nurse or other home services: No Alcohol intake: unknown Patient Tobacco Use Status: Former Tobacco user Quit Date: Tobacco use type: Cigar e-Cigarette/Vaping Use: Currently Using Second Hand Smoke Exposure: No Advance Directives Date on File: 01/30/20 service: No Current occupational status: retired Cognitive needs: No Hearing needs: Yes Vision needs: Yes Meds Allergies Allergy/AdvReac Type Severity Reaction Status Date / Time carisoprodol [From Soma] Allergy Mild MENTAL Verified 03/08/22 15:43 STATUS CHANGE, BECOMES AGGRESIVE codeine [Codeine] Allergy Mild STOMACH Verified 03/08/22 15:43 UPSET, RASH gabapentin AdvReac Intermediate lousy Verified 03/08/22 15:43 feeling Active Medications: Current Medications Albuterol Sulfate (Albuterol Sulfate 90 Mcg 8 Gm Inhaler) 2 puff INHALE Q6H PRN PRN Reason: shortness of breath or wheezing Albuterol/Ipratropium (Albuterol/Iprat 2.5/0.5mg 3 Ml Ampul.Neb) 3 ml INHALE RQ4H PRN PRN Reason: Shortness of Breath/Wheezing Last Admin: 06/10/22 02:41 Dose: 3 ml Enoxaparin Sodium (Enoxaparin Sodium 40 Mg/0.4 Ml Syringe) 40 mg SUBCUT Q24H [facility] Last Admin: 06/09/22 14:58 Dose: 40 mg Fluticasone Propionate (Fluticasone Propionate Nasal 16 Gm [place]) 1 spray NOSTRIL-B BID PRN PRN Reason: Allergy Symptoms Fluticasone/Vilanterol (Fluticasone/Vilanterol 100/25 Blst.W.Dev) 1 puff INHALE RDAILY [facility] Last Admin: 06/10/22 07:41 Dose: Not Given Hydromorphone HCl (Hydromorphone Hcl 0.5 Mg/0.5 Ml Syringe) 1 mg IVPUSH Q3H PRN; Protocol PRN Reason: Pain, Severe (Pain Scale 7-10) Sodium Chloride (Ns) 1,000 mls @ 150 mls/hr IVCONT .Q6H40M [facility] Last Admin: 06/10/22 09:57 Dose: 150 mls/hr Valproic Acid 125 mg/ Dextrose 51.25 mls @ 52.504 mls/hr IV Q6H [facility] Last Infusion: 06/10/22 11:49 Dose: Infused Vancomycin HCl 750 mg/ Sodium (Chloride) 265 mls @ 265 mls/hr IV Q12H [facility] Latanoprost (Latanoprost 0.005 % Ophth Saira 2.5 Ml Drops) 1 drop EYE-BOTH BEDTIME [facility] Last Admin: 06/09/22 23:11 Dose: Not Given Lorazepam (Lorazepam 2 Mg/Ml Vial) 1 mg IVPUSH Q12H [facility] Last Admin: 06/10/22 02:51 Dose: 1 mg Naloxone HCl (Naloxone Hcl Nasal 4 Mg [place]) 4 mg NOSTRILALT ONCE PRN PRN Reason: Opiate Reversal Ondansetron HCl (Ondansetron Hcl 4 Mg/2 Ml Vial) 4 mg IVPUSH Q8H PRN PRN Reason: Nausea and Vomiting Last Admin: 06/10/22 10:55 Dose: 4 mg Pantoprazole Sodium (Pantoprazole Sodium 40 Mg/10 Ml Vial) 40 mg IVPUSH DAILY@0630 [facility] Last Admin: 06/10/22 06:01 Dose: 40 mg Pharmacy Consult (Consult Rx Perform Med Rec) 1 each MISCELLANE ONCE PRN PRN Reason: Consult order Pharmacy Consult (Consult Rx Vancomycin Dosing) 1 each MISCELLANE DAILY PRN PRN Reason: Consult order Sodium Chloride (0.9 % Sodium Chloride Flush 3 Ml Syringe) 3 ml IVFLUSH QSHIFT [facility] Last Admin: 06/10/22 08:50 Dose: 3 ml Venlafaxine HCl (Venlafaxine Hcl Er 37.5 Mg Cap.Er.24h) 37.5 mg PO DAILY [facility] Last Admin: 06/10/22 09:50 Dose: 37.5 mg Venlafaxine HCl (Venlafaxine Hcl Er 150 Mg Cap.Er.24h) 150 mg PO DAILY [facility] Last Admin: 06/10/22 09:50 Dose: 150 mg Home Medications Medication Instructions Recorded Confirmed Last Taken Type divalproex 500 mg tablet,delayed 500 mg PO DAILY 05/26/20 06/09/22 1 Day Ago History release ~06/08/22 [id number] 1 tab PO BEDTIME PRN Migraine 10/20/20 06/09/22 Unknown History 50 mg-325 mg-40 mg tablet Headache lorazepam 1 mg tablet 1 tab PO BID 10/20/20 06/09/22 1 Day Ago History ~06/08/22 venlafaxine 150 mg 150 mg PO DAILY 04/17/21 06/09/22 1 Day Ago History capsule,extended release 24 hr ~06/08/22 fluticasone propionate 45 2 puff inhalation BID 12/14/21 06/09/22 1 Day Ago History mcg-salmeterol 21 mcg/actuation ~06/08/22 HFA inhaler (Advair HFA) cyanocobalamin (vitamin B-12) 1,000 mcg subcut QMONTH 06/09/22 06/09/22 1 Week Ago History 1,000 mcg/mL injection solution ~06/02/22 fluticasone propionate 50 1 spray intranasal BID PRN Allergy 06/09/22 06/09/22 Unknown History mcg/actuation nasal Symptoms spray,suspension latanoprost 0.005 % eye drops 1 drp ophthalmic (eye) BEDTIME 06/09/22 06/09/22 06/07/22 History lorazepam 1 mg tablet 1 mg PO DAILY PRN Anxiety 06/09/22 06/09/22 Unknown History omeprazole 40 mg capsule,delayed 40 mg PO DAILY@0630 06/09/22 06/09/22 1 Day Ago History release ~06/08/22 tadalafil 5 mg tablet 1 tab PO DAILY 06/09/22 06/09/22 1 Day Ago History ~06/08/22 venlafaxine 37.5 mg 1 cap PO DAILY 06/09/22 06/09/22 1 Day Ago History capsule,extended release 24 hr ~06/08/22 vibegron 75 mg tablet (Gemtesa) 1 tab PO DAILY 06/09/22 06/09/22 1 Day Ago History ~06/08/22 Exam Exam Date and Time: June 10, 2022 1200 Height,Weight and Vital Signs: Height 6 ft Weight 113.398 kg Last Vital Signs Temp 97.5 F 06/10/22 07:40 Pulse 86 06/10/22 07:40 Resp 18 06/10/22 07:40 BP 106/61 06/10/22 07:40 Pulse Ox 96 06/10/22 07:40 O2 Del Method 06/10/22 07:40 O2 Flow Rate 2.0 06/10/22 07:40 Pertinent Lab Results Pertinent Lab Results: Laboratory Tests 06/08/22 06/08/22 06/08/22 20:56 20:56 20:56 WBC 17.1 H RBC 5.04 Hgb 15.4 Hct 45.3 MCV 89.9 MCH 30.6 MCHC 34.0 RDW 13.5 Plt Count 307 MPV 10.4 Immature Gran % (Auto) 0.5 H Neut % (Auto) 75.0 H Lymph % (Auto) 16.7 L [place] % (Auto) 7.5 Eos % (Auto) 0.1 Baso % (Auto) 0.2 Lymph # (Auto) 2.9 [place] # (Auto) 1.3 H Eos # (Auto) 0.0 Baso # (Auto) 0.0 Abs Immat Gran (auto) 0.08 H Absolute Neuts (auto) 12.8 H Absolute Nucleated RBC 0.000 Nucleated RBC % (auto) 0.0 PT 13.0 INR 1.1 Sodium Potassium Chloride Carbon Dioxide Anion Gap BUN Creatinine Estim Creat Clear Calc Estimated GFR Random Glucose Lactic Acid Calcium Magnesium Total Bilirubin AST ALT Alkaline Phosphatase B-Natriuretic Peptide Total Protein Albumin Urine Color Urine Appearance Urine pH Ur Specific [place] Urine Protein Urine Glucose (UA) Urine Ketones Urine Blood Urine Nitrite Ur Leukocyte Esterase Urine RBC Urine WBC Ur Squamous Epith Cells Urine Bacteria Hyaline Casts Influenza Type A (PCR) NEGATIVE Influenza Type B (PCR) NEGATIVE RSV RNA Qual (PCR) NEGATIVE SARS-CoV-2 RNA (RT-PCR) NEGATIVE 06/08/22 06/09/22 06/09/22 21:35 00:28 05:45 WBC RBC Hgb Hct MCV MCH MCHC RDW Plt Count MPV Immature Gran % (Auto) Neut % (Auto) Lymph % (Auto) [place] % (Auto) Eos % (Auto) Baso % (Auto) Lymph # (Auto) [place] # (Auto) Eos # (Auto) Baso # (Auto) Abs Immat Gran (auto) Absolute Neuts (auto) Absolute Nucleated RBC Nucleated RBC % (auto) PT INR Sodium 137 Potassium 4.0 Chloride 100 Carbon Dioxide 24 Anion Gap 17 BUN 28 H Creatinine 0.97 Estim Creat Clear Calc 85.5 Estimated GFR > 60 Random Glucose 113 Lactic Acid 1.1 Calcium 8.9 D Magnesium 1.7 Total Bilirubin 0.6 AST 14 ALT 14 Alkaline Phosphatase 87 B-Natriuretic Peptide Total Protein 6.7 Albumin 4.2 Urine Color Yellow Urine Appearance Clear Urine pH 5.0 Ur Specific [place] >= 1.030 H Urine Protein 30 (1+) H Urine Glucose (UA) Negative Urine Ketones Trace Urine Blood Negative Urine Nitrite Negative Ur Leukocyte Esterase Negative Urine RBC 3-5 H Urine WBC 0-5 Ur Squamous Epith Cells 0-2 Urine Bacteria None Seen Hyaline Casts 0-2 Influenza Type A (PCR) Influenza Type B (PCR) RSV RNA Qual (PCR) SARS-CoV-2 RNA (RT-PCR) 06/09/22 06/09/22 06/09/22 06:57 06:57 06:57 WBC 16.8 H RBC 4.75 Hgb 14.8 Hct 43.3 MCV 91.2 MCH 31.2 MCHC 34.2 RDW 13.6 Plt Count 289 MPV 10.8 Immature Gran % (Auto) 0.5 H Neut % (Auto) 77.6 H Lymph % (Auto) 13.2 L [place] % (Auto) 8.4 Eos % (Auto) 0.1 Baso % (Auto) 0.2 Lymph # (Auto) 2.2 [place] # (Auto) 1.4 H Eos # (Auto) 0.0 Baso # (Auto) 0.0 Abs Immat Gran (auto) 0.08 H Absolute Neuts (auto) 13.0 H Absolute Nucleated RBC 0.000 Nucleated RBC % (auto) 0.0 PT INR Sodium 136 Potassium 4.3 Chloride 104 Carbon Dioxide 21 L Anion Gap 15 BUN 29 H Creatinine 0.86 Estim Creat Clear Calc 96.4 Estimated GFR > 60 Random Glucose 125 H Lactic Acid Calcium 8.7 Magnesium 1.7 Total Bilirubin AST ALT Alkaline Phosphatase B-Natriuretic Peptide Total Protein Albumin Urine Color Urine Appearance Urine pH Ur Specific [place] Urine Protein Urine Glucose (UA) Urine Ketones Urine Blood Urine Nitrite Ur Leukocyte Esterase Urine RBC Urine WBC Ur Squamous Epith Cells Urine Bacteria Hyaline Casts Influenza Type A (PCR) Influenza Type B (PCR) RSV RNA Qual (PCR) SARS-CoV-2 RNA (RT-PCR) 06/10/22 06/10/22 06/10/22 02:24 02:24 02:24 WBC 9.0 RBC 4.60 Hgb 14.3 Hct 41.8 L MCV 90.9 MCH 31.1 MCHC 34.2 RDW 14.0 Plt Count 278 MPV 10.3 Immature Gran % (Auto) Neut % (Auto) Lymph % (Auto) [place] % (Auto) Eos % (Auto) Baso % (Auto) Lymph # (Auto) [place] # (Auto) Eos # (Auto) Baso # (Auto) Abs Immat Gran (auto) Absolute Neuts (auto) Absolute Nucleated RBC 0.000 Nucleated RBC % (auto) 0.0 PT INR Sodium 138 Potassium 4.1 Chloride 104 Carbon Dioxide 21 L Anion Gap 17 BUN 40 H Creatinine 0.98 Estim Creat Clear Calc 84.6 Estimated GFR > 60 Random Glucose 117 H Lactic Acid Calcium 8.2 L Magnesium Total Bilirubin AST ALT Alkaline Phosphatase B-Natriuretic Peptide 55 Total Protein Albumin Urine Color Urine Appearance Urine pH Ur Specific [place] Urine Protein Urine Glucose (UA) Urine Ketones Urine Blood Urine Nitrite Ur Leukocyte Esterase Urine RBC Urine WBC Ur Squamous Epith Cells Urine Bacteria Hyaline Casts Influenza Type A (PCR) Influenza Type B (PCR) RSV RNA Qual (PCR) SARS-CoV-2 RNA (RT-PCR) Airway Mallampati Class: II TM Dist: >3cm Loose/Missing/Broken Teeth: No Heart: IRRR Lungs: CTA Assessment and Plan Assessment Anesthesia Assessment: Anesthesia Plan Discussed and Chart Reviewed Final Anesthetic Review Family History of Problems with Anesthesia: No History of Problems with Anesthesia: No NPO: No ASA Class: III and Emergency Final Preanesthetic Review: No Changes in Pt Med Stat, Meds/Allgs Chart Reviewed, Consent Obtained/Reviewed and Anes Risks/Benef Reviewed Patient Risk: Intermediate Procedure Risk: Intermediate Anesthetic Plan Anesthetic Plan: GA Disposition: Standard PACU
[2022-06-10] MEDS: fentaNYL citrate/PF 100 MCG/2 ML VIAL 50 MCG IVPUSH ×4 (15:45→16:20)
[2022-06-10] MEDS: HYDROmorphone HCl 0.5 MG/0.5 ML SYRINGE 1.5 MG IVPUSH ×2 (18:29→21:37)
--- NOTE | 2022-06-10 19:25 | P.OP_ITS ---
Operative Note Operative Note Date of Service: 06/10/22 Narrative: Preop diagnosis -- small bowel obstruction Postop diagnosis--small bowel obstruction Procedure--exploratory laparotomy with lysis of adhesions Surgeon-- Angelica Heating Operators Engineer-Annabella Trejo Anesthesia--COLT The patient is a 76-year-old male who presented with several day history of nausea vomiting and abdominal pain. He has had multiple surgical explorations in the past consisting of a colectomy and open gallbladder surgery as well as hernia repairs with mesh. He was admitted and conservative management was carried out for a day and a half but his abdominal pain was worse and still had high NG output and as a result it was decided to take to the OR for exploration Findings--patient had extensive adhesions and interloop area just under the anterior abdominal wall mesh which was consistent with the area of obstruction seen on imaging. Procedure-- The patient was brought to the operative room and under anesthesia guidance was intubated. He had compression stockings patient before induction received preoperative antibiotics and abdomen was prepped and draped in standard surgical fashion. NG tube was placed to suction Cesar catheter was placed. The midline incision was created just over the area where it seemed the transition zone was [address] scan. Patient has a large midline incision and we made this new incision through the previous one at the middle of the abdomen. This was carried out with the scalpel and then using the cautery and then more scalpel and then Metzenbaum scissors. Right underneath the abdominal wall was noted to have [place] mesh placed and there was seemingly preperitoneal Vicryl type mesh. There was extensive bowel and some fatty adhesions stuck to the anterior abdominal wall and moderate amount of time was taken to carefully dissect this with some sharp dissection with the scalpel as well as with the Metzenbaum scissors. Perez's were used to elevate the anterior abdominal wall and the mesh. The peritoneal area [place] mesh was opened up with heavy Carmona's. Extensive time was taken to take down adhesions both the left and the right laterally until we were able to get into the peritoneal cavity and observe the small bowel. Proximally there was significant distention and distally the area was decompressed. Once we were able to take down all the bowel from the anterior abdominal wall and the [place] mesh the loops of bowel were examined and it was noted that right under this area there were multiple interloop adhesions which were creating the transition zone. This was taken down and the entire small bowel here straightened out. No enterotomies were created and the tissue looked fine. The antral contents were milked proximally distally such that there was good flow and there did not appear to be any areas of stenosis. The distal small bowel was decompressed. Secondary to more adhesions superiorly we did not take down all adhesions had been irrigated the area. This area of concern matched the findings on the CT scan. The attention was now directed towards the [place] mesh for closure and this [place] mesh appeared to be well incorporated and did not appear to be infected. The [place] mesh appeared to also be several pieces that were sewn together and then used in the peritoneal area for the repair of hernia. The integrity being good the [place] mesh was closed with running 0 [place]. Attention was then taken to the fascia which was also incorporated with the Vicryl type mesh. This area was closed with multiple figure of 8 #1 S[place] sutures. This allowed for good closure and good secure approximation of the midline tissue. There was irrigated and the sip cutaneous fat closed with some interrupted Vicryl sutures and then the skin edges closed with musa at the end of the case all sponge instrument needle counts were correct this may blood loss was minimal the specimen was sent. Patient was extubated and returned stable to recovery room with Cesar catheter NG tube in place
[2022-06-10] MEDS: Latanoprost 0.005 % Ophth Sol 2.5 ML DROPS 1 DROP EYE-BOTH (21:45)
[2022-06-11] MEDS: vancomycin HCL 750 MG in 0.9 % Sodium Chloride 250 ML 265 MG IV (00:35)
[2022-06-11] MEDS: 0.9 % Sodium Chloride 1,000 ML 150 ML IVCONT ×3 (00:35→16:54)
[2022-06-11] MEDS: HYDROmorphone HCl 0.5 MG/0.5 ML SYRINGE 1.5 MG IVPUSH ×2 (00:35→05:10)
[2022-06-11] MEDS: LORazepam 2 MG/ML VIAL 1 MG IVPUSH ×2 (02:04→14:21)
[2022-06-11 03:15] VITALS: BP 140/88; PULSE 90; RESP 17; TEMP 36.6; O2SAT 94
[2022-06-11] MEDS: Valproic Acid (as Sodium Salt) 125 MG in Dextrose 5 % 50 ML 52.5 MG IV ×4 (04:05→21:22)
[2022-06-11 06:00] LABS: Hematocrit 40.1 % (42.0-52.0); Mean Corpuscular HGB Conc 32.4 g/dl (31.0-36.0); Mean Corpuscular Hemoglobin 30.4 pg (27.0-33.0); Mean Corpuscular Volume 93.7 fL (80.0-98.0); Mean Platelet Volume 10.6 fL (9.4-12.4); Platelet Count 254 X10*3/uL (160-400); Red Blood Count 4.28 X10*6/uL (4.60-5.80); Red Cell Distribution Width 14.1 % (11.0-16.0); White Blood Count 8.6 X10*3/uL (4.8-10.8)
[2022-06-11 06:12] LABS: Anion Gap 13 (12-20); Blood Urea Nitrogen 29 mg/dL (9-16); Calcium 7.6 mg/dL (8.4-10.2); Carbon Dioxide 21 mmol/L (22-29); Chloride 110 mmol/L (96-108); Creatinine Clr Calc Pharmacy 109.1; Estimated Glomerular Filt Rate > 60; Glucose Random 125 mg/dL (60-115); Sodium 140 mmol/L (135-145)
[2022-06-11] MEDS: Pantoprazole Sodium 40 MG/10 ML VIAL IVPUSH (06:13)
[2022-06-11 06:57] VITALS: BP 145/82; PULSE 84; RESP 17; TEMP 36.4; O2SAT 96
[2022-06-11] MEDS: ondansetron HCL 4 MG/2 ML VIAL IVPUSH ×2 (07:07→16:55)
[2022-06-11] MEDS: Fluticasone/Vilanterol 100/25 BLST.W.DEV 1 PUFF INHALE (07:50)
[2022-06-11 07:51] VITALS: PULSE 81; RESP 16; O2SAT 97
--- NOTE | 2022-06-11 08:29 | PM.PNGS ---
Subjective Subjective Date of Service: 06/11/22 <Deedee Long PA-C - Last Filed: 06/11/22 08:41> 06/11/22 <Lorrie Dominguez MD - Last Filed: 06/11/22 09:58> Interval history: C/o nausea this morning. Slightly relieved with zofran. Has not been OOB. Breathing improved from yesterday. Beginning to pass some flatus. <Deedee Long PA-C - Last Filed: 06/11/22 08:41> Physical Exam Vital Signs: Vital Signs: Last Vital Signs Temp 97.6 F 06/11/22 06:57 Pulse 81 06/11/22 07:51 Resp 16 06/11/22 07:51 BP 145/82 H 06/11/22 06:57 Pulse Ox 96 06/11/22 06:57 O2 Del Method 06/11/22 06:57 O2 Flow Rate 2 06/11/22 06:57 BMI result Body Mass Index 33.9 <Deedee Long PA-C - Last Filed: 06/11/22 08:41> Const: General: comfortable, no acute distress and alert <ROYAL Guzman Last Filed: 06/11/22 08:41> Orientation/consciousness: patient oriented x3 <ROYAL Guzman Last Filed: 06/11/22 08:41> Resp: Effort & Inspection: normal respiratory effort <ROYAL Guzman Last Filed: 06/11/22 08:41> GI: Inspection: Yes distended and Yes incision (dressing c/d/i) <Deedee Long PA-C - Last Filed: 06/11/22 08:41> Palpation (GI): Soft to palpation, Tenderness to palpation present (GI) (incisional), no guarding and not rigid <ROYAL Guzman Last Filed: 06/11/22 08:41> Percussion: Yes tympanic to percussion <ROYAL Guzman Last Filed: 06/11/22 08:41> Skin: General skin exam: no rashes or lesions noted <ROYAL Guzman Last Filed: 06/11/22 08:41> Neuro: General: patient oriented x3 and moves all extremities <Deedee Long PA-C - Last Filed: 06/11/22 08:41> Extrem: General: Yes no clubbing, cyanosis or edema <Deedee Long PA-C - Last Filed: 06/11/22 08:41> Objective Data Active Medications Albuterol Sulfate (Albuterol Sulfate 90 Mcg 8 Gm Inhaler) 2 puff INHALE Q6H PRN PRN Reason: shortness of breath or wheezing Albuterol/Ipratropium (Albuterol/Iprat 2.5/0.5mg 3 Ml Ampul.Neb) 3 ml INHALE RQ4H PRN PRN Reason: Shortness of Breath/Wheezing Last Admin: 06/10/22 02:41 Dose: 3 ml Documented By: SASHA Enoxaparin Sodium (Enoxaparin Sodium 40 Mg/0.4 Ml Syringe) 40 mg SUBCUT Q24H [facility] Last Admin: 06/09/22 14:58 Dose: 40 mg Documented By: MADDENNathaniel Fluticasone Propionate (Fluticasone Propionate Nasal 16 Gm [place]) 1 spray NOSTRIL-B BID PRN PRN Reason: Allergy Symptoms Fluticasone/Vilanterol (Fluticasone/Vilanterol 100/25 Blst.W.Dev) 1 puff INHALE RDAILY [facility] Last Admin: 06/11/22 07:50 Dose: 1 puff Documented By: PACO Hydromorphone HCl (Hydromorphone Hcl 0.5 Mg/0.5 Ml Syringe) 1.5 mg IVPUSH Q3H PRN; Protocol PRN Reason: Pain, Severe (Pain Scale 7-10) Last Admin: 06/11/22 05:10 Dose: 1.5 mg Documented By: CYNTHIA Sodium Chloride (Ns) 1,000 mls @ 150 mls/hr IVCONT .Q6H40M [facility] Last Admin: 06/11/22 00:35 Dose: 150 mls/hr Documented By: CYNTHIA Valproic Acid 125 mg/ Dextrose 51.25 mls @ 52.504 mls/hr IV Q6H [facility] Last Infusion: 06/11/22 05:04 Dose: 0 mls/hr Documented By: CYNTHIA Vancomycin HCl 750 mg/ Sodium (Chloride) 265 mls @ 265 mls/hr IV Q12H [facility] Last Infusion: 06/11/22 01:53 Dose: 0 mls/hr Documented By: CYNTHIA Acetaminophen (Ofirmev) 1,000 mg in 100 mls @ 400 mls/hr IV Q6H [facility] Promethazine HCl 12.5 mg/ (Sodium Chloride) 50.5 mls @ 202 mls/hr IV Q6H PRN PRN Reason: Nausea Latanoprost (Latanoprost 0.005 % Ophth Saira 2.5 Ml Drops) 1 drop EYE-BOTH BEDTIME [facility] Last Admin: 06/10/22 21:45 Dose: 1 drop Documented By: CYNTHIA Lorazepam (Lorazepam 2 Mg/Ml Vial) 1 mg IVPUSH Q12H [facility] Last Admin: 06/11/22 02:04 Dose: 1 mg Documented By: CYNTHIA Naloxone HCl (Naloxone Hcl Nasal 4 Mg [place]) 4 mg NOSTRILALT ONCE PRN PRN Reason: Opiate Reversal Ondansetron HCl (Ondansetron Hcl 4 Mg/2 Ml Vial) 4 mg IVPUSH Q8H PRN PRN Reason: Nausea and Vomiting Last Admin: 06/11/22 07:07 Dose: 4 mg Documented By: MADHAV Pantoprazole Sodium (Pantoprazole Sodium 40 Mg/10 Ml Vial) 40 mg IVPUSH DAILY@0630 [facility] Last Admin: 06/11/22 06:13 Dose: 40 mg Documented By: CYNTHIA Pharmacy Consult (Consult Rx Perform Med Rec) 1 each MISCELLANE ONCE PRN PRN Reason: Consult order Pharmacy Consult (Consult Rx Vancomycin Dosing) 1 each MISCELLANE DAILY PRN PRN Reason: Consult order Sodium Chloride (0.9 % Sodium Chloride Flush 3 Ml Syringe) 3 ml IVFLUSH QSHIFT [facility] Last Admin: 06/11/22 07:09 Dose: Not Given Documented By: MADHAV Non-Admin Reason: IV Running Venlafaxine HCl (Venlafaxine Hcl Er 37.5 Mg Cap.Er.24h) 37.5 mg PO DAILY [facility] Last Admin: 06/10/22 09:50 Dose: 37.5 mg Documented By: RHODA Venlafaxine HCl (Venlafaxine Hcl Er 150 Mg Cap.Er.24h) 150 mg PO DAILY [facility] Last Admin: 06/10/22 09:50 Dose: 150 mg Documented By: RHODA <Deedee Long PA-C - Last Filed: 06/11/22 08:41> Labs CBC & Chem 7: 06/11/22 05:40 06/11/22 05:40 <Deedee Long PA-C - Last Filed: 06/11/22 08:41> Labs: Laboratory Results - last 24 hr 06/11/22 06/11/22 06/11/22 05:40 05:40 05:40 MCV 93.7 MCH 30.4 MCHC 32.4 RDW 14.1 Plt Count 254 MPV 10.6 Absolute Nucleated RBC 0.000 Nucleated RBC % (auto) 0.0 Anion Gap 13 Estim Creat Clear Calc 109.1 Cancelled Estimated GFR > 60 Cancelled Random Glucose 125 H Calcium 7.6 L D <Deedee Long PA-C - Last Filed: 06/11/22 08:41> Microbiology Microbiology Results: Microbiology 06/10/22 00:33 Blood Culture - Preliminary Blood - Venous No growth after 24 hours. 06/10/22 00:33 Blood Culture - Preliminary Blood - Venous No growth after 24 hours. 06/09/22 00:29 Blood Culture - Preliminary Blood - Venous No growth after 48 hours. 06/09/22 00:28 Blood Culture - Preliminary Blood - Venous Prelim: GPC Gram Stain only <Deedee Long PA-C - Last Filed: 06/11/22 08:41> Procedures Date of Service Date of Service: 06/11/22 <Deedee Long PA-C - Last Filed: 06/11/22 08:41> Progress Note: A&P Assessment and plan (1) Small bowel obstruction: Status: Acute <Deedee Long PA-C - Last Filed: 06/11/22 08:41> (2) Chronic anticoagulation: Status: Acute <ROYAL Guzman Last Filed: 06/11/22 08:41> (3) S/P exploratory laparotomy: Status: Acute <Deedee Long PA-C - Last Filed: 06/11/22 08:41> Assessment and Plan: 76 year old admitted with SBO ultimately requiring ex lap, BRANDAN yesterday. He is doing fairly well post op but c/o nausea. Beginning to pass some flatus. VSS. Abd remains distended with appropriate post op tenderness, dressing clean. NGT with bilious output, moderate. AM labs reviewed. Keep NGT in place. Will add ofirmev for pain to reduce narcotics. Will add phenergan. Dc daily. Encouraged OOB today at least to recliner, IS use. ?Resume eliquis tomorrow. Will discuss with Dr. Dominguez. <Deedee Long PA-C - Last Filed: 06/11/22 08:41> 76 year old admitted with SBO ultimately requiring ex lap, BRANDAN yesterday. He is doing fairly well post op but c/o nausea. Beginning to pass some flatus. VSS. Abd remains distended with appropriate post op tenderness, dressing clean. NGT with bilious output, moderate. AM labs reviewed. Keep NGT in place. Will add ofirmev for pain to reduce narcotics. Will add phenergan. Kiran daily. Encouraged OOB today at least to recliner, IS use. ?Resume eliquis tomorrow. Will discuss with Dr. Dominguez. agree with above, improving s/p lysis of adhesions <Lorrie Dominguez MD - Last Filed: 06/11/22 09:58> Time Spent With Patient Time: Total time managing care of this patient today ____ minutes. <Deedee Long PA-C - Last Filed: 06/11/22 08:41> Quality Stroke Does the patient have a stroke diagnosis?: No <ROYAL Guzman Last Filed: 06/11/22 08:41> VTE Prior VTE?: No <ROYAL Guzman Last Filed: 06/11/22 08:41> VTE Risk Level:: Surgical - low <ROYAL Guzman Last Filed: 06/11/22 08:41> VTE Device Contraindication: N/A - Device Ordered <Deedee Long PA-C - Last Filed: 06/11/22 08:41> VTE Drug Contraindication: N/A - Med Ordered <ROYAL Guzman Last Filed: 06/11/22 08:41>
[2022-06-11] MEDS: Venlafaxine HCl ER 150 MG CAP.ER.24H PO (08:47)
[2022-06-11] MEDS: Acetaminophen 1,000 MG/100 ML PIGGYBACK 400 MG IV ×3 (08:47→20:53)
[2022-06-11] MEDS: Venlafaxine HCl ER 37.5 MG CAP.ER.24H PO (08:47)
--- NOTE | 2022-06-11 08:51 | P.CDIC_ITS ---
CDI Concurrent Query Documentation Clarification: PHYSICIAN'S DOCUMENTATION REQUEST Date of Query: 06/11/22 0852 Patient Name: Ottoniel Salas Admit Date: 06/09/22 Dear Doctor, A review of the medical record indicates additional documentation may be needed. Please review below and update the documentation accordingly. Clinical Indicators: The following diagnoses or signs and symptoms were noted in the patient record: Risk Factors/Clinical Indicators/Treatments per MD note 06/10/22: high grade small bowel obstruction Based on the above, could you clarify in the Progress Notes the appropriate diagnosis, if significant, that supports the above abnormalities and additional evaluation, monitoring, and/or treatment rendered: * SBO partial with adhesions * SBO complete with adhesions * Other (please specify) * Unable to determine Use of terms such as suspected, likely, concern for, or probable (associated with a specific diagnosis that is being evaluated, monitored, or treated as if it exists) are acceptable and can be coded in the inpatient setting, when documented at the time of discharge. Thank you, Ofelia Garber RN Extension: [phone] Please use your independent medical judgment in providing your response. THIS QUERY IS PART OF THE PERMANENT MEDICAL RECORD
--- NOTE | 2022-06-11 11:07 | HO.POSTANES ---
Post Anesthesia Evaluation Post Anesthesia Evaluation Vital Signs: Vital Signs Temp Pulse Resp BP Pulse Ox O2 Del Method O2 Flow Rate 06/11/22 07:51 81 16 06/11/22 06:57 97.6 F 84 17 145/82 H 96 Nasal Cannula 2 06/11/22 03:15 98 F 90 17 140/88 H 94 Room Air 06/10/22 23:13 97.1 F 84 17 139/83 94 Room Air Anesthesia: General Endotracheal-GETA Mental Status: Awake Pain Control: Satisfactory Nausea/Vomiting: Mild Hydration: Adequate Anesthesia-Related Issues: No Anes. Related Issues
--- NOTE | 2022-06-11 11:33 | MHC.CM.PN ---
PT REPORTS HE LIVES ALONE AND IS INDEPENDENT WITH CARE PT HAS NO SERVICES AND NO DME PT WILL COMPLETE A HCP TODAY HE IS COVID VAX X 3 PCP: [facility] IMM DELIVERED CURRENT DCP: HOME NO SERVICES PT WILL DRIVE HIMSELF HOME
--- NOTE | 2022-06-11 12:13 | HO.PM.IMPN ---
Subjective Subjective Date of Service: 06/11/22 Interval History: Seen and evaluated this morning Pod 1 Feels much better after surgery Pain under fair control Not passing gas yet No other overnight events Review of Systems Review of Systems: Yes all other systems are reviewed and are negative Physical Exam Vital Signs: Vital Signs: Last Vital Signs Temp 97.6 F 06/11/22 06:57 Pulse 81 06/11/22 07:51 Resp 16 06/11/22 07:51 BP 145/82 H 06/11/22 06:57 Pulse Ox 96 06/11/22 06:57 O2 Del Method 06/11/22 06:57 O2 Flow Rate 2 06/11/22 06:57 BMI result Body Mass Index 33.9 Const: Other: Constitutional : Awake, interactive, not in distress Neck : Normal inspection, Supple Cardiovascular : RRR, no JVP, no lower extremity edema Respiratory : Fair bilateral air entry, no crackles, no wheezes or rhonchi Gastrointestinal: soft, decreased bowel sounds, less distended, abdominal wound covered with dressing with no drainage Skin : Warm, Dry Neurological : Alert & oriented x3, No focal deficit Objective Data Active Medications Albuterol Sulfate (Albuterol Sulfate 90 Mcg 8 Gm Inhaler) 2 puff INHALE Q6H PRN PRN Reason: shortness of breath or wheezing Albuterol/Ipratropium (Albuterol/Iprat 2.5/0.5mg 3 Ml Ampul.Neb) 3 ml INHALE RQ4H PRN PRN Reason: Shortness of Breath/Wheezing Last Admin: 06/10/22 02:41 Dose: 3 ml Documented By: SASHA Enoxaparin Sodium (Enoxaparin Sodium 40 Mg/0.4 Ml Syringe) 40 mg SUBCUT Q24H [facility] Last Admin: 06/09/22 14:58 Dose: 40 mg Documented By: MADDENNathaniel Fluticasone Propionate (Fluticasone Propionate Nasal 16 Gm [place]) 1 spray NOSTRIL-B BID PRN PRN Reason: Allergy Symptoms Fluticasone/Vilanterol (Fluticasone/Vilanterol 100/25 Blst.W.Dev) 1 puff INHALE RDAILY [facility] Last Admin: 06/11/22 07:50 Dose: 1 puff Documented By: ULRICStephen Hydromorphone HCl (Hydromorphone Hcl 0.5 Mg/0.5 Ml Syringe) 1.5 mg IVPUSH Q3H PRN; Protocol PRN Reason: Pain, Severe (Pain Scale 7-10) Last Admin: 06/11/22 05:10 Dose: 1.5 mg Documented By: CYNTHIA Sodium Chloride (Ns) 1,000 mls @ 150 mls/hr IVCONT .Q6H40M [facility] Last Admin: 06/11/22 08:42 Dose: 150 mls/hr Documented By: MADHAV Valproic Acid 125 mg/ Dextrose 51.25 mls @ 52.504 mls/hr IV Q6H [facility] Last Admin: 06/11/22 11:34 Dose: 52.5 mls/hr Documented By: MADHAV Vancomycin HCl 750 mg/ Sodium (Chloride) 265 mls @ 265 mls/hr IV Q12H [facility] Last Infusion: 06/11/22 01:53 Dose: 0 mls/hr Documented By: CYNTHIA Acetaminophen (Ofirmev) 1,000 mg in 100 mls @ 400 mls/hr IV Q6H [facility] Last Infusion: 06/11/22 09:15 Dose: 0 mls/hr Documented By: MADHAV Promethazine HCl 12.5 mg/ (Sodium Chloride) 50.5 mls @ 202 mls/hr IV Q6H PRN PRN Reason: Nausea Last Infusion: 06/11/22 09:15 Dose: 0 mls/hr Documented By: MADHAV Latanoprost (Latanoprost 0.005 % Ophth Saira 2.5 Ml Drops) 1 drop EYE-BOTH BEDTIME [facility] Last Admin: 06/10/22 21:45 Dose: 1 drop Documented By: CYNTHIA Lorazepam (Lorazepam 2 Mg/Ml Vial) 1 mg IVPUSH Q12H [facility] Last Admin: 06/11/22 02:04 Dose: 1 mg Documented By: CYNTHIA Naloxone HCl (Naloxone Hcl Nasal 4 Mg [place]) 4 mg NOSTRILALT ONCE PRN PRN Reason: Opiate Reversal Ondansetron HCl (Ondansetron Hcl 4 Mg/2 Ml Vial) 4 mg IVPUSH Q8H PRN PRN Reason: Nausea and Vomiting Last Admin: 06/11/22 07:07 Dose: 4 mg Documented By: MADHAV Pantoprazole Sodium (Pantoprazole Sodium 40 Mg/10 Ml Vial) 40 mg IVPUSH DAILY@0630 [facility] Last Admin: 06/11/22 06:13 Dose: 40 mg Documented By: CYNTHIA Pharmacy Consult (Consult Rx Perform Med Rec) 1 each MISCELLANE ONCE PRN PRN Reason: Consult order Pharmacy Consult (Consult Rx Vancomycin Dosing) 1 each MISCELLANE DAILY PRN PRN Reason: Consult order Sodium Chloride (0.9 % Sodium Chloride Flush 3 Ml Syringe) 3 ml IVFLUSH QSHIFT [facility] Last Admin: 06/11/22 07:09 Dose: Not Given Documented By: MADHAV Non-Admin Reason: IV Running Venlafaxine HCl (Venlafaxine Hcl Er 37.5 Mg Cap.Er.24h) 37.5 mg PO DAILY [facility] Last Admin: 06/11/22 08:47 Dose: 37.5 mg Documented By: MADHAV Venlafaxine HCl (Venlafaxine Hcl Er 150 Mg Cap.Er.24h) 150 mg PO DAILY [facility] Last Admin: 06/11/22 08:47 Dose: 150 mg Documented By: MADHAV Labs 06/11/22 05:40 06/11/22 05:40 Labs: Laboratory Results - last 24 hr 06/11/22 06/11/22 06/11/22 05:40 05:40 05:40 MCV 93.7 MCH 30.4 MCHC 32.4 RDW 14.1 Plt Count 254 MPV 10.6 Absolute Nucleated RBC 0.000 Nucleated RBC % (auto) 0.0 Anion Gap 13 Estim Creat Clear Calc 109.1 Cancelled Estimated GFR > 60 Cancelled Random Glucose 125 H Calcium 7.6 L D Microbiology Microbiology Results: Microbiology 06/09/22 00:28 Blood Culture - Final Blood - Venous Coag negative Staphylococcus 06/10/22 00:33 Blood Culture - Preliminary Blood - Venous No growth after 24 hours. 06/10/22 00:33 Blood Culture - Preliminary Blood - Venous No growth after 24 hours. 06/09/22 00:29 Blood Culture - Preliminary Blood - Venous No growth after 48 hours. Assessment and Plan (1) S/P exploratory laparotomy: Status: Acute (2) Small bowel obstruction: Status: Acute Plan Patient 76-year-old man with a history HTN, diverticulitis, prostate cancer treated with radiation, history of blood clots on apixaban, mood disorder, depression, allergic asthma, and PUD presented to the ED with diffuse abdominal pain, constipation, nausea, and vomiting. The patient was found to have an SBO and currently treated conservatively with bowel rest, IVF, and NGT. Admitted to surgery with consult medicine for medical management. S p.o. Pod 1 Surgical team following Hx of PE on Eliquis Hold Eliquis in anticipation of possible surgical intervention To restart full-dose Lovenox once surgery agrees Mood disorder/depression IV Depakote p.o. venlafaxine on hold Allergic asthma Continue home inhalers prn, hold prn PO meds HTN Continue amlodipine Anxiety Switch po lorazepam to IV GERD Hold po omerprazole IV protonix qd BPH/overactive bladder Hold Gemtesa, Cialis DVT PPX Lovenox, on hold Thank you for allowing us to participate in the care of this pt. will continue to follow with you during the hospital stay Time Spent With Patient Time: Total time managing care of this patient today ____ minutes. Quality Stroke Does the patient have a stroke diagnosis?: No VTE Prior VTE?: No VTE Risk Level:: Surgical - low VTE Device Contraindication: N/A - Device Ordered VTE Drug Contraindication: N/A - Med Ordered
[2022-06-11 12:21] LABS: Vancomycin Trough 7.7 mcg/mL (10.0-20.0)
--- NOTE | 2022-06-11 12:29 | HE.PHANOTE ---
Vancomycin Dosing level subtherapeutic at 7.7. Patient missed dose 06/10 @ 1300 due to being in the OR. Current regimen 650 mg Q12H is expected to be subtherapeutic. Since patient has bactermia will increase dose to vancomycin 1000 mg Q12H then get another level after 2 doses on 06/12 @ 1100. Patient is obese therefore carefully monitoring is required due to large volume of distribution. Pharmacy will monitor renal function daily. Kiersten Rodríguez, LiatD
[2022-06-11] MEDS: HYDROmorphone HCl 0.5 MG/0.5 ML SYRINGE IVPUSH ×2 (13:15→21:22)
[2022-06-11] MEDS: vancomycin HCL 1,000 MG in 0.9 % Sodium Chloride 250 ML 270 MG IV (13:29)
[2022-06-11] MEDS: Enoxaparin Sodium 40 MG/0.4 ML SYRINGE SUBCUT (14:21)
[2022-06-11] MEDS: 0.9 % Sodium Chloride Flush 3 ML SYRINGE IVFLUSH (14:22)
[2022-06-11 15:26] VITALS: BP 142/80; PULSE 119; RESP 16; TEMP 36.7; O2SAT 93
[2022-06-11 19:32] VITALS: BP 158/96; PULSE 109; RESP 18; TEMP 36.7; O2SAT 97
[2022-06-11 20:00] VITALS: BP 132/91; PULSE 109; RESP 19; TEMP 36.1; O2SAT 95
[2022-06-11] MEDS: Latanoprost 0.005 % Ophth Sol 2.5 ML DROPS 1 DROP EYE-BOTH (20:53)
--- NOTE | 2022-06-11 23:30 | PC.NURSE ---
pt very restless climbing out of bed.pt pulled NGT out.new NGT inserted into right nares without difficulty,placement verified.
[2022-06-12] MEDS: HYDROmorphone HCl 0.5 MG/0.5 ML SYRINGE IVPUSH ×3 (00:40→22:42)
[2022-06-12] MEDS: 0.9 % Sodium Chloride 1,000 ML 150 ML IVCONT ×3 (00:43→18:04)
[2022-06-12] MEDS: vancomycin HCL 1,000 MG in 0.9 % Sodium Chloride 250 ML 270 MG IV ×3 (01:43→20:25)
[2022-06-12] MEDS: LORazepam 2 MG/ML VIAL 1 MG IVPUSH (01:44)
[2022-06-12] MEDS: Acetaminophen 1,000 MG/100 ML PIGGYBACK 400 MG IV ×4 (03:02→19:57)
[2022-06-12 03:28] VITALS: BP 140/87; PULSE 99; RESP 17; TEMP 36.5; O2SAT 97
[2022-06-12] MEDS: Valproic Acid (as Sodium Salt) 125 MG in Dextrose 5 % 50 ML 52.5 MG IV ×4 (03:52→22:31)
[2022-06-12] MEDS: Pantoprazole Sodium 40 MG/10 ML VIAL IVPUSH (05:34)
[2022-06-12 06:11] LABS: Creatinine Clr Calc Pharmacy 118.5; Estimated Glomerular Filt Rate > 60
[2022-06-12 07:21] VITALS: BP 139/96; PULSE 111; RESP 18; TEMP 36.5; O2SAT 95
[2022-06-12] MEDS: Venlafaxine HCl ER 37.5 MG CAP.ER.24H PO (07:27)
--- NOTE | 2022-06-12 08:43 | PM.PNGS ---
Subjective Subjective Date of Service: 06/12/22 <Deedee Long PA-C - Last Filed: 06/12/22 08:50> 06/13/22 <Francisco Guerrero MD - Last Filed: 06/13/22 09:29> Interval history: Confused overnight and pulled out NGT. New one placed and drained ~600cc overnight. Did have large, soft stool this am. Feels overall better. <Deedee Long PA-C - Last Filed: 06/12/22 08:50> Physical Exam Vital Signs: Vital Signs: Last Vital Signs Temp 97.7 F 06/12/22 07:21 Pulse 111 H 06/12/22 07:21 Resp 18 06/12/22 07:21 BP 139/96 H 06/12/22 07:21 Pulse Ox 95 06/12/22 07:21 O2 Del Method 06/12/22 07:21 O2 Flow Rate 2 06/12/22 07:21 BMI result Body Mass Index 33.9 <Deedee Long PA-C - Last Filed: 06/12/22 08:50> Const: General: comfortable, no acute distress, alert and confusion <Deedee Long PA-C - Last Filed: 06/12/22 08:50> Orientation/consciousness: oriented to person and confusion <Deedee Long PA-C - Last Filed: 06/12/22 08:50> Resp: Effort & Inspection: normal respiratory effort <Deedee Long PA-C - Last Filed: 06/12/22 08:50> GI: Inspection: Yes distended and Yes incision (clean) <Deedee Long PA-C - Last Filed: 06/12/22 08:50> Palpation (GI): Soft to palpation, Tenderness to palpation present (GI) (incisional), no guarding and not rigid <ROYAL Guzman Last Filed: 06/12/22 08:50> Percussion: Yes tympanic to percussion <Deedee Long PA-C - Last Filed: 06/12/22 08:50> Skin: General skin exam: no rashes or lesions noted <Deedee Long PA-C - Last Filed: 06/12/22 08:50> Neuro: General: oriented to person and confusion <Deedee Long PA-C - Last Filed: 06/12/22 08:50> Extrem: General: Yes no clubbing, cyanosis or edema <Deedee Long PA-C - Last Filed: 06/12/22 08:50> Objective Data Active Medications Albuterol Sulfate (Albuterol Sulfate 90 Mcg 8 Gm Inhaler) 2 puff INHALE Q6H PRN PRN Reason: shortness of breath or wheezing Albuterol/Ipratropium (Albuterol/Iprat 2.5/0.5mg 3 Ml Ampul.Neb) 3 ml INHALE RQ4H PRN PRN Reason: Shortness of Breath/Wheezing Last Admin: 06/10/22 02:41 Dose: 3 ml Documented By: SASHA Enoxaparin Sodium (Enoxaparin Sodium 40 Mg/0.4 Ml Syringe) 40 mg SUBCUT Q24H [facility] Last Admin: 06/11/22 14:21 Dose: 40 mg Documented By: MADHAV Fluticasone Propionate (Fluticasone Propionate Nasal 16 Gm [place]) 1 spray NOSTRIL-B BID PRN PRN Reason: Allergy Symptoms Fluticasone/Vilanterol (Fluticasone/Vilanterol 100/25 Blst.W.Dev) 1 puff INHALE RDAILY [facility] Last Admin: 06/11/22 07:50 Dose: 1 puff Documented By: PACO Hydromorphone HCl (Hydromorphone Hcl 0.5 Mg/0.5 Ml Syringe) 0.5 mg IVPUSH Q3H PRN; Protocol PRN Reason: Pain, Severe (Pain Scale 7-10) Last Admin: 06/12/22 05:33 Dose: 0.5 mg Documented By: CYNTHIA Sodium Chloride (Ns) 1,000 mls @ 150 mls/hr IVCONT .Q6H40M [facility] Last Admin: 06/12/22 00:43 Dose: 150 mls/hr Documented By: CYNTHIA Valproic Acid 125 mg/ Dextrose 51.25 mls @ 52.504 mls/hr IV Q6H [facility] Last Infusion: 06/12/22 04:52 Dose: 0 mls/hr Documented By: CYNTHIA Acetaminophen (Ofirmev) 1,000 mg in 100 mls @ 400 mls/hr IV Q6H [facility] Last Admin: 06/12/22 07:49 Dose: 400 mls/hr Documented By: MADHAV Promethazine HCl 12.5 mg/ (Sodium Chloride) 50.5 mls @ 202 mls/hr IV Q6H PRN PRN Reason: Nausea Last Infusion: 06/11/22 09:15 Dose: 0 mls/hr Documented By: MADHAV Vancomycin HCl 1,000 mg/ (Sodium Chloride) 270 mls @ 270 mls/hr IV Q12H [facility] Last Infusion: 06/12/22 02:44 Dose: 0 mls/hr Documented By: CYNTHIA Latanoprost (Latanoprost 0.005 % Ophth [place] 2.5 Ml Drops) 1 drop EYE-BOTH BEDTIME [facility] Last Admin: 06/11/22 20:53 Dose: 1 drop Documented By: CYNTHIA Lorazepam (Lorazepam 2 Mg/Ml Vial) 1 mg IVPUSH Q12H [facility] Last Admin: 06/12/22 01:44 Dose: 1 mg Documented By: CYNTHIA Naloxone HCl (Naloxone Hcl Nasal 4 Mg [place]) 4 mg NOSTRILALT ONCE PRN PRN Reason: Opiate Reversal Ondansetron HCl (Ondansetron Hcl 4 Mg/2 Ml Vial) 4 mg IVPUSH Q8H PRN PRN Reason: Nausea and Vomiting Last Admin: 06/11/22 16:55 Dose: 4 mg Documented By: MADHAV Pantoprazole Sodium (Pantoprazole Sodium 40 Mg/10 Ml Vial) 40 mg IVPUSH DAILY@0630 [facility] Last Admin: 06/12/22 05:34 Dose: 40 mg Documented By: CYNTHIA Pharmacy Consult (Consult Rx Perform Med Rec) 1 each MISCELLANE ONCE PRN PRN Reason: Consult order Pharmacy Consult (Consult Rx Vancomycin Dosing) 1 each MISCELLANE DAILY PRN PRN Reason: Consult order Sodium Chloride (0.9 % Sodium Chloride Flush 3 Ml Syringe) 3 ml IVFLUSH QSHIFT [facility] Last Admin: 06/12/22 07:31 Dose: Not Given Documented By: MADHAV Non-Admin Reason: IV Running Venlafaxine HCl (Venlafaxine Hcl Er 37.5 Mg Cap.Er.24h) 37.5 mg PO DAILY [facility] Last Admin: 06/12/22 07:27 Dose: 37.5 mg Documented By: MADHAV Venlafaxine HCl (Venlafaxine Hcl Er 150 Mg Cap.Er.24h) 150 mg PO DAILY [facility] Last Admin: 06/11/22 08:47 Dose: 150 mg Documented By: MADHAV <Deedee Long PA-C - Last Filed: 06/12/22 08:50> Labs CBC & Chem 7: 06/11/22 05:40 06/12/22 05:16 <Deedee Long PA-C - Last Filed: 06/12/22 08:50> Labs: Laboratory Results - last 24 hr 06/11/22 06/12/22 11:29 05:16 Estim Creat Clear Calc 118.5 Estimated GFR > 60 Vancomycin Trough 7.7 L <Deedee Long PA-C - Last Filed: 06/12/22 08:50> Microbiology Microbiology Results: Microbiology 06/10/22 00:33 Blood Culture - Preliminary Blood - Venous No growth after 48 hours. 06/10/22 00:33 Blood Culture - Preliminary Blood - Venous No growth after 48 hours. 06/09/22 00:28 Blood Culture - Final Blood - Venous Coag negative Staphylococcus <Deedee Long PA-C - Last Filed: 06/12/22 08:50> Procedures Date of Service Date of Service: 06/12/22 <Deedee Long PA-C - Last Filed: 06/12/22 08:50> Progress Note: A&P Assessment and plan (1) S/P exploratory laparotomy: Status: Acute <Deedee Long PA-C - Last Filed: 06/12/22 08:50> (2) Small bowel obstruction: Status: Acute <Deedee Long PA-C - Last Filed: 06/12/22 08:50> Assessment and Plan: seen and examined independently - agree with JOSIANE Long <Francisco Guerrero MD - Last Filed: 06/13/22 09:29> (3) Chronic anticoagulation: Status: Acute <ROYAL Guzman Last Filed: 06/12/22 08:50> Assessment and Plan: 76 year old admitted with SBO ultimately requiring ex lap, BRANDAN 06/10/22. Had large stool today and feels overall improved but NGT output high and remains distended/tympanitic. Abd soft but distended, incision clean. Keep NGT in place for now given output. Confused this am- will make ativan PO to see if this helps, dc phenergan. Encouraged OOB, IS use. PT consult. Ok to resume eliquis. <Deedee Long PA-C - Last Filed: 06/12/22 08:50> Time Spent With Patient Time: Total time managing care of this patient today ____ minutes. <Deedee Long PA-C - Last Filed: 06/12/22 08:50> Quality Stroke Does the patient have a stroke diagnosis?: No <ROYAL Guzman Last Filed: 06/12/22 08:50> VTE Prior VTE?: No <Deedee Long PA-C - Last Filed: 06/12/22 08:50> VTE Risk Level:: Surgical - low <ROYAL Guzman Last Filed: 06/12/22 08:50> VTE Device Contraindication: N/A - Device Ordered <ROYAL Guzman Last Filed: 06/12/22 08:50> VTE Drug Contraindication: N/A - Med Ordered <Deedee Long PA-C - Last Filed: 06/12/22 08:50>
[2022-06-12 08:47] VITALS: PULSE 100; RESP 18; O2SAT 96
[2022-06-12] MEDS: Fluticasone/Vilanterol 100/25 BLST.W.DEV 1 PUFF INHALE (08:47)
[2022-06-12] MEDS: ondansetron HCL 4 MG/2 ML VIAL IVPUSH (08:57)
[2022-06-12] MEDS: LORazepam 1 MG TABLET PO ×3 (09:25→19:57)
[2022-06-12] MEDS: Venlafaxine HCl ER 150 MG CAP.ER.24H PO (09:33)
[2022-06-12 11:27] LABS: Vancomycin Random 7.9 mcg/mL (15-20)
--- NOTE | 2022-06-12 11:35 | HE.PHANOTE ---
RE: vanco Trough on 06/12 came back low again at 7.9mg/L. Renal function steadily improving, increased dose to 1000mg Q8H with predicted AUC 455mg/L, trough 14.2. Next level to be drawn 06/13/22 @1100
[2022-06-12 15:40] VITALS: BP 123/92; PULSE 99; RESP 19; TEMP 36.8; O2SAT 100
[2022-06-12] MEDS: Enoxaparin Sodium 40 MG/0.4 ML SYRINGE SUBCUT (15:47)
--- NOTE | 2022-06-12 15:48 | PM.EVENT ---
Event Note Date of Service: 06/12/22 Event Note: Seen on afternoon rounds Says he is ?okay? According to nursing staff, he has passed BMs and flatus Abdomen soft although distended Will keep NG tube for tonight Hopefully DC NG tube in the morning Had some anxiety earlier -given Ativan with good response Time Spent With Patient Time: Total time managing care of this patient today ____ minutes.
[2022-06-12 19:31] VITALS: BP 139/94; PULSE 97; RESP 17; TEMP 36.4; O2SAT 98
[2022-06-12] MEDS: 0.9 % Sodium Chloride Flush 3 ML SYRINGE IVFLUSH (19:57)
[2022-06-12] MEDS: Latanoprost 0.005 % Ophth Sol 2.5 ML DROPS 1 DROP EYE-BOTH (19:57)
[2022-06-12 23:43] VITALS: BP 148/96; PULSE 100; RESP 17; TEMP 36.4; O2SAT 95
[2022-06-13] MEDS: 0.9 % Sodium Chloride 1,000 ML 150 ML IVCONT ×2 (00:52→09:39)
[2022-06-13] MEDS: Acetaminophen 1,000 MG/100 ML PIGGYBACK 400 MG IV ×4 (02:04→19:46)
[2022-06-13] MEDS: Valproic Acid (as Sodium Salt) 125 MG in Dextrose 5 % 50 ML 52.5 MG IV ×3 (03:54→16:58)
[2022-06-13 03:57] VITALS: BP 159/92; PULSE 115; RESP 18; TEMP 36.1; O2SAT 98
[2022-06-13] MEDS: vancomycin HCL 1,000 MG in 0.9 % Sodium Chloride 250 ML 270 MG IV ×3 (04:49→21:48)
[2022-06-13] MEDS: HYDROmorphone HCl 0.5 MG/0.5 ML SYRINGE IVPUSH ×4 (06:00→21:46)
[2022-06-13] MEDS: Pantoprazole Sodium 40 MG/10 ML VIAL IVPUSH (06:03)
[2022-06-13 06:05] LABS: Creatinine Clr Calc Pharmacy 131.7; Estimated Glomerular Filt Rate > 60
[2022-06-13 07:32] VITALS: BP 155/105; PULSE 119; RESP 20; TEMP 37; O2SAT 97
--- NOTE | 2022-06-13 07:51 | P.PNGS_ITS ---
Subjective Subjective Date of Service: 06/13/22 <Deedee Long PA-C - Last Filed: 06/13/22 07:56> 06/13/22 <Francisco Guerrero MD - Last Filed: 06/13/22 09:30> Interval history: C/o headache and abdominal pain. Unsure if passing flatus since yesterday after large stool. <Deedee Long PA-C - Last Filed: 06/13/22 07:56> Physical Exam Vital Signs: Vital Signs: Last Vital Signs Temp 98.6 F 06/13/22 07:32 Pulse 119 H 06/13/22 07:32 Resp 20 06/13/22 07:32 BP 155/105 H 06/13/22 07:32 Pulse Ox 97 06/13/22 07:32 O2 Del Method 06/13/22 07:32 O2 Flow Rate 2 06/13/22 07:32 BMI result Body Mass Index 33.9 <Deedee Long PA-C - Last Filed: 06/13/22 07:56> Const: General: comfortable, no acute distress and alert <Deedee Long PA-C - Last Filed: 06/13/22 07:56> Resp: Effort & Inspection: normal respiratory effort <ROYAL Guzman Last Filed: 06/13/22 07:56> Cardio: Rate: tachycardic <Deedee Long PA-C - Last Filed: 06/13/22 07:56> GI: Inspection: Yes distended and Yes incision (clean) <Deedee Long PA-C - Last Filed: 06/13/22 07:56> Palpation (GI): Soft to palpation, Tenderness to palpation present (GI), no guarding and not rigid <Deedee Long PA-C - Last Filed: 06/13/22 07:56> Percussion: Yes tympanic to percussion <ROYAL Guzman Last Filed: 06/13/22 07:56> Skin: General skin exam: no rashes or lesions noted <ROYAL Guzman Last Filed: 06/13/22 07:56> Objective Data Active Medications Albuterol Sulfate (Albuterol Sulfate 90 Mcg 8 Gm Inhaler) 2 puff INHALE Q6H PRN PRN Reason: shortness of breath or wheezing Albuterol/Ipratropium (Albuterol/Iprat 2.5/0.5mg 3 Ml Ampul.Neb) 3 ml INHALE RQ4H PRN PRN Reason: Shortness of Breath/Wheezing Last Admin: 06/10/22 02:41 Dose: 3 ml Documented By: SASHA Enoxaparin Sodium (Enoxaparin Sodium 40 Mg/0.4 Ml Syringe) 40 mg SUBCUT Q24H [facility] Last Admin: 06/12/22 15:47 Dose: 40 mg Documented By: MADHAV Fluticasone Propionate (Fluticasone Propionate Nasal 16 Gm [place]) 1 spray NOSTRIL-B BID PRN PRN Reason: Allergy Symptoms Fluticasone/Vilanterol (Fluticasone/Vilanterol 100/25 Blst.W.Dev) 1 puff INHALE RDAILY [facility] Last Admin: 06/12/22 08:47 Dose: 1 puff Documented By: IRENA Hydromorphone HCl (Hydromorphone Hcl 0.5 Mg/0.5 Ml Syringe) 0.5 mg IVPUSH Q3H PRN; Protocol PRN Reason: Pain, Severe (Pain Scale 7-10) Last Admin: 06/13/22 06:00 Dose: 0.5 mg Documented By: RAVEN Sodium Chloride (Ns) 1,000 mls @ 150 mls/hr IVCONT .Q6H40M [facility] Last Admin: 06/13/22 00:52 Dose: 150 mls/hr Documented By: RAVEN Valproic Acid 125 mg/ Dextrose 51.25 mls @ 52.504 mls/hr IV Q6H [facility] Last Infusion: 06/13/22 04:57 Dose: 0 mls/hr Documented By: RAVEN Acetaminophen (Ofirmev) 1,000 mg in 100 mls @ 400 mls/hr IV Q6H [facility] Last Infusion: 06/13/22 02:39 Dose: 0 mls/hr Documented By: RAVEN Vancomycin HCl 1,000 mg/ (Sodium Chloride) 270 mls @ 270 mls/hr IV Q8H [facility] Last Infusion: 06/13/22 06:04 Dose: 0 mls/hr Documented By: RAVEN Latanoprost (Latanoprost 0.005 % Ophth [place]air[place] 2.5 Ml Drops) 1 drop EYE-BOTH BEDTIME [facility] Last Admin: 06/12/22 19:57 Dose: 1 drop Documented By: RAVEN Lorazepam (Lorazepam 1 Mg Tablet) 1 mg PO BID [facility] Last Admin: 06/12/22 19:57 Dose: 1 mg Documented By: RAVEN Lorazepam (Lorazepam 1 Mg Tablet) 1 mg PO DAILY PRN PRN Reason: Anxiety Last Admin: 06/12/22 12:45 Dose: 1 mg Documented By: MADHAV Naloxone HCl (Naloxone Hcl Nasal 4 Mg [place]) 4 mg NOSTRILALT ONCE PRN PRN Reason: Opiate Reversal Ondansetron HCl (Ondansetron Hcl 4 Mg/2 Ml Vial) 4 mg IVPUSH Q8H PRN PRN Reason: Nausea and Vomiting Last Admin: 06/12/22 08:57 Dose: 4 mg Documented By: MADHAV Pharmacy Consult (Consult Rx Perform Med Rec) 1 each MISCELLANE ONCE PRN PRN Reason: Consult order Pharmacy Consult (Consult Rx Vancomycin Dosing) 1 each MISCELLANE DAILY PRN PRN Reason: Consult order Sodium Chloride (0.9 % Sodium Chloride Flush 3 Ml Syringe) 3 ml IVFLUSH QSHIFT [facility] Last Admin: 06/12/22 19:57 Dose: 3 ml Documented By: RAVEN Venlafaxine HCl (Venlafaxine Hcl Er 37.5 Mg Cap.Er.24h) 37.5 mg PO DAILY [facility] Last Admin: 06/12/22 07:27 Dose: 37.5 mg Documented By: MADHAV Venlafaxine HCl (Venlafaxine Hcl Er 150 Mg Cap.Er.24h) 150 mg PO DAILY [facility] Last Admin: 06/12/22 09:33 Dose: 150 mg Documented By: MADHAV <Deedee Long PA-C - Last Filed: 06/13/22 07:56> Labs CBC & Chem 7: 06/11/22 05:40 06/13/22 05:26 <Deedee Long PA-C - Last Filed: 06/13/22 07:56> Labs: Laboratory Results - last 24 hr 06/12/22 06/13/22 11:03 05:26 Estim Creat Clear Calc 131.7 Estimated GFR > 60 Random Vancomycin 7.9 L <Deedee Long PA-C - Last Filed: 06/13/22 07:56> Procedures Date of Service Date of Service: 06/13/22 <Deedee Long PA-C - Last Filed: 06/13/22 07:56> Progress Note: A&P Assessment and plan (1) S/P exploratory laparotomy: Status: Acute <Deedee Long PA-C - Last Filed: 06/13/22 07:56> (2) Chronic anticoagulation: Status: Acute <Deedee Long PA-C - Last Filed: 06/13/22 07:56> (3) Small bowel obstruction: Status: Acute <Deedee Long PA-C - Last Filed: 06/13/22 07:56> Assessment and Plan: Main complaint is headache, severe Denies abdominal pain Abdomen remains distended although soft Incision clean and dry Check KUB Hospitalist follow-up for hypertension, headache Encouraged to get out of bed Seen and examined independently - agree with JOSIANE Long <Francisco Guerrero MD - Last Filed: 06/13/22 09:30> Assessment and Plan: 76 year old admitted with SBO ultimately requiring ex lap, BRANDAN 06/10/22. Abd is increasingly distended this morning however NGT output decreased. Tachy, hypertensive this am. Will obtain KUB to reassess and CBC/BMP. Cont NPO status, NGT, IVF. Encouraged OOB, IS use. May need PICC and TPN if no improvement given prolonged NPO status. Hospitalists following. <Deedee Long PA-C - Last Filed: 06/13/22 07:56> Time Spent With Patient Time: Total time managing care of this patient today ____ minutes. <Deedee Long PA-C - Last Filed: 06/13/22 07:56> Quality Stroke Does the patient have a stroke diagnosis?: No <Deedee Long PA-C - Last Filed: 06/13/22 07:56> VTE Prior VTE?: No <Deedee Long PA-C - Last Filed: 06/13/22 07:56> VTE Risk Level:: Surgical - low <Deedee Long PA-C - Last Filed: 06/13/22 07:56> VTE Device Contraindication: N/A - Device Ordered <Deedee Long PA-C - Last Filed: 06/13/22 07:56> VTE Drug Contraindication: N/A - Med Ordered <Deedee Long PA-C - Last Filed: 06/13/22 07:56>
[2022-06-13 08:52] LABS: Anion Gap 14 (12-20); Blood Urea Nitrogen 10 mg/dL (9-16); Calcium 7.8 mg/dL (8.4-10.2); Carbon Dioxide 23 mmol/L (22-29); Chloride 106 mmol/L (96-108); Creatinine Clr Calc Pharmacy 138.3; Estimated Glomerular Filt Rate > 60; Glucose Fasting 69 mg/dL (60-99); Potassium 3.3 mmol/L (3.3-5.1); Sodium 140 mmol/L (135-145)
[2022-06-13] MEDS: Fluticasone/Vilanterol 100/25 BLST.W.DEV 1 PUFF INHALE (09:10)
[2022-06-13 09:11] VITALS: PULSE 92; RESP 18; O2SAT 97
[2022-06-13] MEDS: KCl 20 mEq in 0.9 % Sodium ChL 20 MEQ/1,000 ML IV.SOLN 100 MEQ IVCONT (13:18)
--- NOTE | 2022-06-13 13:53 | MHC.CLN ---
NUTRITION CONTINUES NPO DAY 4. HAS NG TUBE FOR SUCTION. RD FOLLOWING FOR DIET ADVANCEMENT AND POSSIBLE NUTRITION SUPPORT.
--- NOTE | 2022-06-13 14:55 | MHC.CM.PN ---
EMR REVIEWED, PER SURGICAL NOTE PT'S NG TUBE REMAINS IN PLACE, ABD IS DISTENDED AND PT WILL REMAIN ON NPO, POSSIBILITY OF PICC LINE AND TPN D/T EXTENDED TIME ON NPO, CM WILL CONT TO FOLLOW D/C NEEDS AND [facility] REFERRAL PLACED IN ANTIC HE MAY NEED SERVICES ON D/C.
[2022-06-13] MEDS: Enoxaparin Sodium 40 MG/0.4 ML SYRINGE SUBCUT (15:44)
[2022-06-13] MEDS: amLODIPine Besylate 10 MG TABLET NG-TUBE (15:45)
[2022-06-13 15:48] VITALS: BP 142/79; PULSE 104; RESP 17; TEMP 36.4; O2SAT 96
[2022-06-13 19:38] VITALS: BP 153/65; PULSE 101; RESP 18; TEMP 36.2; O2SAT 96
[2022-06-13] MEDS: Famotidine/PF 20 MG/2 ML VIAL IVPUSH (21:46)
[2022-06-13] MEDS: LORazepam 1 MG TABLET PO (21:47)
[2022-06-13] MEDS: Valproic Acid (as Sodium Salt) 125 MG in Dextrose 5 % 50 ML 52 MG IV (21:49)
[2022-06-13] MEDS: Latanoprost 0.005 % Ophth Sol 2.5 ML DROPS 1 DROP EYE-BOTH (23:27)
[2022-06-13 23:50] VITALS: BP 160/100; PULSE 96; RESP 18; TEMP 36.4; O2SAT 96
[2022-06-14] VITALS (9 sets, daily range): BP systolic 122–159; BP diastolic 68–98; PULSE 69–93; RESP 17–20; TEMP 36.2–37.1; O2SAT 93–98
[2022-06-14] MEDS: Acetaminophen 1,000 MG/100 ML PIGGYBACK 400 MG IV ×4 (03:10→23:37)
[2022-06-14] MEDS: KCl 20 mEq in 0.9 % Sodium ChL 20 MEQ/1,000 ML IV.SOLN 100 MEQ IVCONT ×2 (03:10→14:13)
[2022-06-14] MEDS: Valproic Acid (as Sodium Salt) 125 MG in Dextrose 5 % 50 ML 52.5 MG IV ×4 (03:35→23:43)
[2022-06-14] MEDS: vancomycin HCL 1,000 MG in 0.9 % Sodium Chloride 250 ML 270 MG IV (04:43)
[2022-06-14 06:07] LABS: Basophils Absolute Auto 0.1 X10*3/uL (0.0-0.2); Basophils Percent Auto 0.5 % (0-2); Eosinophils Absolute Auto 0.1 X10*3/uL (0.0-0.4); Eosinophils Percent Auto 1.2 % (0-4); Hematocrit 36.1 % (42.0-52.0); Hemoglobin 11.9 g/dl (14.0-18.0); Imm Gran Abs Auto 0.15 X10*3/uL (0.00-0.03); Imm Gran Pct Auto 1.3 % (0.0-0.4); Lymphocytes Absolute Auto 2.2 X10*3/uL (1.2-4.9); Lymphocytes Percent Auto 18.2 % (20-40); MANUAL DIFF FLAG SCAN; Mean Corpuscular Hemoglobin 30.4 pg (27.0-33.0); Mean Corpuscular Volume 92.3 fL (80.0-98.0); Mean Platelet Volume 10.3 fL (9.4-12.4); Monocytes Absolute Auto 1.5 X10*3/uL (0.1-1.2); Monocytes Percent Auto 12.7 % (2-11); Neutrophils Absolute Auto 7.9 x10*3/uL (2.0-8.3); Neutrophils Percent Auto 66.1 % (45-73); Platelet Count 303 X10*3/uL (160-400); Red Blood Count 3.91 X10*6/uL (4.60-5.80); Red Cell Distribution Width 13.7 % (11.0-16.0); SCAN SMEAR FLAG 1
[2022-06-14] MEDS: HYDROmorphone HCl 0.5 MG/0.5 ML SYRINGE IVPUSH ×5 (06:09→23:14)
[2022-06-14 06:22] LABS: Anion Gap 16 (12-20); Blood Urea Nitrogen 8 mg/dL (9-16); Calcium 7.9 mg/dL (8.4-10.2); Carbon Dioxide 23 mmol/L (22-29); Chloride 105 mmol/L (96-108); Estimated Glomerular Filt Rate > 60; Glucose Fasting 61 mg/dL (60-99); Potassium 3.2 mmol/L (3.3-5.1); Sodium 141 mmol/L (135-145)
[2022-06-14 07:36] LABS: SLIDE REVIEW VERIFIED
[2022-06-14] MEDS: Fluticasone/Vilanterol 100/25 BLST.W.DEV 1 PUFF INHALE (08:25)
--- NOTE | 2022-06-14 08:26 | PM.PNGS ---
Subjective Subjective Date of Service: 06/14/22 <Deedee Long PA-C - Last Filed: 06/14/22 08:29> 06/14/22 <Francisco Guerrero MD - Last Filed: 06/14/22 08:39> Interval history: Feels improved today. Less pain. NGT output decreased. Was OOB to recliner yesterday. Some flatus. <Deedee Long PA-C - Last Filed: 06/14/22 08:29> Physical Exam Vital Signs: Vital Signs: Last Vital Signs Temp 97.5 F 06/14/22 07:36 Pulse 75 06/14/22 07:36 Resp 20 06/14/22 07:36 BP 143/85 H 06/14/22 07:36 Pulse Ox 98 06/14/22 07:36 O2 Del Method 06/14/22 07:36 O2 Flow Rate 2 06/14/22 07:36 BMI result Body Mass Index 33.9 <Deedee Long PA-C - Last Filed: 06/14/22 08:29> Const: General: no acute distress and alert <Deedee Long PA-C - Last Filed: 06/14/22 08:29> Orientation/consciousness: patient oriented x3 <Deedee Long PA-C - Last Filed: 06/14/22 08:29> Resp: Effort & Inspection: normal respiratory effort <Deedee Long PA-C - Last Filed: 06/14/22 08:29> GI: Inspection: Yes distended and Yes incision (clean) <Deedee Long PA-C - Last Filed: 06/14/22 08:29> Palpation (GI): Soft to palpation, Tenderness to palpation present (GI), no guarding and not rigid <Deedee Long PA-C - Last Filed: 06/14/22 08:29> Skin: General skin exam: no rashes or lesions noted <ROYAL Guzman Last Filed: 06/14/22 08:29> Neuro: General: patient oriented x3 and moves all extremities <ROYAL Guzman Last Filed: 06/14/22 08:29> Objective Data Active Medications Albuterol Sulfate (Albuterol Sulfate 90 Mcg 8 Gm Inhaler) 2 puff INHALE Q6H PRN PRN Reason: shortness of breath or wheezing Amlodipine Besylate (Amlodipine Besylate 10 Mg Tablet) 10 mg NG-TUBE DAILY [facility]; Protocol Last Admin: 06/13/22 15:45 Dose: 10 mg Documented By: CHERELLE Albuterol Sulfate 2.5 mg/ (Ipratropium [place] 0.5 mg) 0 mg INHALE RQ4H PRN PRN Reason: Shortness of Breath/Wheezing Enoxaparin Sodium (Enoxaparin Sodium 40 Mg/0.4 Ml Syringe) 40 mg SUBCUT Q24H [facility] Last Admin: 06/13/22 15:44 Dose: 40 mg Documented By: CHERELLE Fluticasone Propionate (Fluticasone Propionate Nasal 16 Gm [place]) 1 spray NOSTRIL-B BID PRN PRN Reason: Allergy Symptoms Fluticasone/Vilanterol (Fluticasone/Vilanterol 100/25 Blst.W.Dev) 1 puff INHALE RDAILY [facility] Last Admin: 06/14/22 08:25 Dose: 1 puff Documented By: PACO Hydromorphone HCl (Hydromorphone Hcl 0.5 Mg/0.5 Ml Syringe) 0.5 mg IVPUSH Q3H PRN; Protocol PRN Reason: Pain, Severe (Pain Scale 7-10) Last Admin: 06/14/22 06:09 Dose: 0.5 mg Documented By: WALLY Valproic Acid 125 mg/ Dextrose 51.25 mls @ 52.504 mls/hr IV Q6H [facility] Last Infusion: 06/14/22 04:48 Dose: 0 mls/hr Documented By: WALLY Acetaminophen (Ofirmev) 1,000 mg in 100 mls @ 400 mls/hr IV Q6H [facility] Last Infusion: 06/14/22 03:48 Dose: 0 mls/hr Documented By: WALLY Vancomycin HCl 1,000 mg/ (Sodium Chloride) 270 mls @ 270 mls/hr IV Q8H [facility] Last Infusion: 06/14/22 06:15 Dose: 0 mls/hr Documented By: WALLY Potassium Chloride/Sodium Chloride (Kcl 20 Meq In 0.9 % Sodium Chl) 20 meq in 1,000 mls @ 100 mls/hr IVCONT .Q10H [facility] Last Admin: 06/14/22 08:09 Dose: Not Given Documented By: CASSY Non-Admin Reason: IV Running Latanoprost (Latanoprost 0.005 % Ophth [place]air[place] 2.5 Ml Drops) 1 drop EYE-BOTH BEDTIME [facility] Last Admin: 06/13/22 23:27 Dose: 1 drop Documented By: WALLY Lorazepam (Lorazepam 1 Mg Tablet) 1 mg PO BID [facility] Last Admin: 06/13/22 21:47 Dose: 1 mg Documented By: WALLY Lorazepam (Lorazepam 1 Mg Tablet) 1 mg PO DAILY PRN PRN Reason: Anxiety Last Admin: 06/12/22 12:45 Dose: 1 mg Documented By: MADHAV Naloxone HCl (Naloxone Hcl Nasal 4 Mg [place]) 4 mg NOSTRILALT ONCE PRN PRN Reason: Opiate Reversal Ondansetron HCl (Ondansetron Hcl 4 Mg/2 Ml Vial) 4 mg IVPUSH Q8H PRN PRN Reason: Nausea and Vomiting Last Admin: 06/12/22 08:57 Dose: 4 mg Documented By: MADHAV Pharmacy Consult (Consult Rx Perform Med Rec) 1 each MISCELLANE ONCE PRN PRN Reason: Consult order Pharmacy Consult (Consult Rx Vancomycin Dosing) 1 each MISCELLANE DAILY PRN PRN Reason: Consult order Sodium Chloride (0.9 % Sodium Chloride Flush 3 Ml Syringe) 3 ml IVFLUSH QSHIFT [facility] Last Admin: 06/14/22 08:08 Dose: Not Given Documented By: CASSY Non-Admin Reason: IV Running Venlafaxine HCl (Venlafaxine Hcl Er 37.5 Mg Cap.Er.24h) 37.5 mg PO DAILY [facility] Last Admin: 06/13/22 11:07 Dose: Not Given Documented By: CHERELLE Non-Sue Reason: NPO Venlafaxine HCl (Venlafaxine Hcl Er 150 Mg Cap.Er.24h) 150 mg PO DAILY [facility] Last Admin: 06/13/22 11:07 Dose: Not Given Documented By: CHERELLE Non-Admin Reason: NPO <Deedee Long PA-C - Last Filed: 06/14/22 08:29> Labs CBC & Chem 7: 06/14/22 05:24 06/14/22 05:24 <Deedee Long PA-C - Last Filed: 06/14/22 08:29> Labs: Laboratory Results - last 24 hr 06/13/22 06/13/22 06/14/22 08:01 10:44 05:24 MCV 92.3 MCH 30.4 MCHC 33.0 RDW 13.7 Plt Count 303 MPV 10.3 Immature Gran % (Auto) 1.3 H Neut % (Auto) 66.1 Lymph % (Auto) 18.2 L [place] % (Auto) 12.7 H Eos % (Auto) 1.2 Baso % (Auto) 0.5 Lymph # (Auto) 2.2 [place] # (Auto) 1.5 H Eos # (Auto) 0.1 Baso # (Auto) 0.1 Abs Immat Gran (auto) 0.15 H Absolute Neuts (auto) 7.9 Absolute Nucleated RBC 0.000 Nucleated RBC % (auto) 0.0 Smear Tech's Comments VERIFIED Anion Gap 14 Estim Creat Clear Calc 138.3 Estimated GFR > 60 Fasting Glucose 69 Calcium 7.8 L Vancomycin Trough 11.0 06/14/22 06/14/22 05:24 05:24 MCV MCH MCHC RDW Plt Count MPV Immature Gran % (Auto) Neut % (Auto) Lymph % (Auto) [place] % (Auto) Eos % (Auto) Baso % (Auto) Lymph # (Auto) [place] # (Auto) Eos # (Auto) Baso # (Auto) Abs Immat Gran (auto) Absolute Neuts (auto) Absolute Nucleated RBC Nucleated RBC % (auto) Smear Tech's Comments Anion Gap 16 Estim Creat Clear Calc 122.0 Cancelled Estimated GFR > 60 Cancelled Fasting Glucose 61 Calcium 7.9 L Vancomycin Trough <Deedee Long PA-C - Last Filed: 06/14/22 08:29> Microbiology Microbiology Results: Microbiology 06/09/22 00:29 Blood Culture - Final Blood - Venous No growth after 5 days. <Deedee Long PA-C - Last Filed: 06/14/22 08:29> Procedures Date of Service Date of Service: 06/14/22 <Deedee Long PA-C - Last Filed: 06/14/22 08:29> Progress Note: A&P Assessment and plan (1) S/P exploratory laparotomy: Status: Acute <Deedee Long PA-C - Last Filed: 06/14/22 08:29> Assessment and Plan: still distended but soft says he passed BM overnight? NGT output appears dilute, less denies abdominal pain KUB yesterday showing significant interval improvement of SB dilatation clamp NGT and reevaluate case discussed with hospitalist yesterday seen and examined - agree with JOSIANE Long <Francisco Guerrero MD - Last Filed: 06/14/22 08:39> (2) Chronic anticoagulation: Status: Acute <Deedee Long PA-C - Last Filed: 06/14/22 08:29> (3) Small bowel obstruction: Status: Acute <Deedee Long PA-C - Last Filed: 06/14/22 08:29> Assessment and Plan: 76 year old admitted with SBO ultimately requiring ex lap, BRANDAN 06/10/22. Abd remains distended but softer this morning. F/u AXR improved yesterday. HR improved this morning. Will clamp NGT for 4 hrs, check residual. Unclamp sooner if develops worsening abd pain, n/v. Encouraged OOB, IS use. May need PICC and TPN if unable to remove NGT given prolonged NPO status. Hospitalists following. ?dc vanco- was started for positive BC but only one positive with likely contaminant and repeat cx negative. <Deedee Long PA-C - Last Filed: 06/14/22 08:29> Time Spent With Patient Time: Total time managing care of this patient today ____ minutes. <Deedee Long PA-C - Last Filed: 06/14/22 08:29> Quality Stroke Does the patient have a stroke diagnosis?: No <Deedee Long PA-C - Last Filed: 06/14/22 08:29> VTE Prior VTE?: No <ROYAL Guzman Last Filed: 06/14/22 08:29> VTE Risk Level:: Surgical - low <Deedee Long PA-C - Last Filed: 06/14/22 08:29> VTE Device Contraindication: N/A - Device Ordered <ROYAL Guzman Last Filed: 06/14/22 08:29> VTE Drug Contraindication: N/A - Med Ordered <Deedee Long PA-C - Last Filed: 06/14/22 08:29>
[2022-06-14] MEDS: LORazepam 1 MG TABLET PO ×3 (08:30→21:21)
[2022-06-14] MEDS: amLODIPine Besylate 10 MG TABLET NG-TUBE (08:30)
[2022-06-14] MEDS: Venlafaxine HCl ER 150 MG CAP.ER.24H PO (08:30)
[2022-06-14] MEDS: Venlafaxine HCl ER 37.5 MG CAP.ER.24H PO (08:30)
[2022-06-14 11:23] LABS: Vancomycin Trough 12.1 mcg/mL (10.0-20.0)
--- NOTE | 2022-06-14 11:58 | HE.PHANOTE ---
VANCO DOSE ADJUSTMENT BASED ON SCR AND TROUGH OF 12.1. DOSE INCREASED TO 1250 Q 8 H. NEXT TROUGH ON 06/15 @ 1100
[2022-06-14] MEDS: vancomycin HCL 1,250 MG in 0.9 % Sodium Chloride 250 ML 166.67 MG IV ×2 (13:57→21:21)
[2022-06-14] MEDS: Enoxaparin Sodium 40 MG/0.4 ML SYRINGE SUBCUT (14:13)
--- NOTE | 2022-06-14 15:23 | PM.EVENT ---
Event Note Date of Service: 06/14/22 Event Note: NGT was clamped all morning no N/V minimal out after unclamping so NGT was removed he looks comfortable abd distended but soft ice chips only for now OOB Time Spent With Patient Time: Total time managing care of this patient today ____ minutes.
[2022-06-14] MEDS: Famotidine 20 MG TABLET PO ×2 (15:52→21:21)
[2022-06-14] MEDS: Latanoprost 0.005 % Ophth Sol 2.5 ML DROPS 1 DROP EYE-BOTH (21:38)
[2022-06-14] MEDS: ondansetron HCL 4 MG/2 ML VIAL IVPUSH (23:14)
[2022-06-15] VITALS (7 sets, daily range): BP systolic 130–160; BP diastolic 75–91; PULSE 79–109; RESP 18–19; TEMP 36.2–36.9; O2SAT 92–94; BMI 33.9
[2022-06-15] MEDS: Valproic Acid (as Sodium Salt) 125 MG in Dextrose 5 % 50 ML 52.5 MG IV (04:45)
[2022-06-15] MEDS: vancomycin HCL 1,250 MG in 0.9 % Sodium Chloride 250 ML 166.6 MG IV (04:50)
[2022-06-15] MEDS: KCl 20 mEq in 0.9 % Sodium ChL 20 MEQ/1,000 ML IV.SOLN 100 MEQ IVCONT (04:58)
[2022-06-15 07:37] LABS: Estimated Glomerular Filt Rate > 60
[2022-06-15] MEDS: HYDROmorphone HCl 0.5 MG/0.5 ML SYRINGE IVPUSH ×2 (08:00→15:50)
[2022-06-15] MEDS: 0.9 % Sodium Chloride Flush 3 ML SYRINGE IVFLUSH ×3 (08:01→23:59)
[2022-06-15] MEDS: Acetaminophen 1,000 MG/100 ML PIGGYBACK 400 MG IV (08:03)
[2022-06-15] MEDS: amLODIPine Besylate 10 MG TABLET NG-TUBE (08:06)
[2022-06-15] MEDS: LORazepam 1 MG TABLET PO ×3 (08:06→19:37)
[2022-06-15] MEDS: Venlafaxine HCl ER 37.5 MG CAP.ER.24H PO (08:07)
[2022-06-15] MEDS: Famotidine 20 MG TABLET PO ×2 (08:07→21:16)
[2022-06-15] MEDS: Fluticasone/Vilanterol 100/25 BLST.W.DEV 1 PUFF INHALE (08:19)
[2022-06-15] MEDS: Venlafaxine HCl ER 150 MG CAP.ER.24H PO (08:56)
--- NOTE | 2022-06-15 09:09 | PM.PNGS ---
Subjective Subjective Date of Service: 06/15/22 <Deedee Long PA-C - Last Filed: 06/15/22 09:27> 06/15/22 <Francisco Guerrero MD - Last Filed: 06/15/22 09:45> Interval history: Feels much better this morning. Taking dilaudid for his headaches and not abd pain. Passing flatus. Feels hungry. <Deedee Long PA-C - Last Filed: 06/15/22 09:27> Physical Exam Vital Signs: Vital Signs: Last Vital Signs Temp 97.1 F 06/15/22 08:00 Pulse 79 06/15/22 08:20 Resp 18 06/15/22 08:20 BP 160/82 H 06/15/22 08:00 Pulse Ox 94 06/15/22 08:00 O2 Del Method 06/15/22 08:00 O2 Flow Rate 2 06/14/22 11:15 BMI result Body Mass Index 33.9 <Deedee Long PA-C - Last Filed: 06/15/22 09:27> Const: General: comfortable, no acute distress and alert <Deedee Long PA-C - Last Filed: 06/15/22 09:27> Orientation/consciousness: patient oriented x3 <ROYAL Guzman Last Filed: 06/15/22 09:27> Resp: Effort & Inspection: normal respiratory effort <Deedee Long PA-C - Last Filed: 06/15/22 09:27> GI: Inspection: Yes distended (softly) and Yes incision (clean, small amount of erythema at inferior aspect surrounding musa) <Deedee Long PA-C - Last Filed: 06/15/22 09:27> Palpation (GI): Soft to palpation, nontender, no guarding and not rigid <ROYAL Guzman Last Filed: 06/15/22 09:27> Skin: General skin exam: no rashes or lesions noted <ROYAL Guzman Last Filed: 06/15/22 09:27> Neuro: General: patient oriented x3 and moves all extremities <ROYAL Guzman Last Filed: 06/15/22 09:27> Objective Data Active Medications Acetaminophen/Butalbital/Caffeine (Butalb/Acetamin/Caff 50/325/40 Tablet) 1 tab PO Q4H PRN PRN Reason: headache Albuterol Sulfate (Albuterol Sulfate 90 Mcg 8 Gm Inhaler) 2 puff INHALE Q6H PRN PRN Reason: shortness of breath or wheezing Amlodipine Besylate (Amlodipine Besylate 10 Mg Tablet) 10 mg NG-TUBE DAILY [facility]; Protocol Last Admin: 06/15/22 08:06 Dose: 10 mg Documented By: FLAQUITO Albuterol Sulfate 2.5 mg/ (Ipratropium [place] 0.5 mg) 0 mg INHALE RQ4H PRN PRN Reason: Shortness of Breath/Wheezing Enoxaparin Sodium (Enoxaparin Sodium 40 Mg/0.4 Ml Syringe) 40 mg SUBCUT Q24H [facility] Last Admin: 06/14/22 14:13 Dose: 40 mg Documented By: CASSY Famotidine (Famotidine 20 Mg Tablet) 20 mg PO BID [facility] Last Admin: 06/15/22 08:07 Dose: 20 mg Documented By: FLAQUITO Fluticasone Propionate (Fluticasone Propionate Nasal 16 Gm [place]) 1 spray NOSTRIL-B BID PRN PRN Reason: Allergy Symptoms Fluticasone/Vilanterol (Fluticasone/Vilanterol 100/25 Blst.W.Dev) 1 puff INHALE RDAILY [facility] Last Admin: 06/15/22 08:19 Dose: 1 puff Documented By: ANNABELLA Hydromorphone HCl (Hydromorphone Hcl 0.5 Mg/0.5 Ml Syringe) 0.5 mg IVPUSH Q3H PRN; Protocol PRN Reason: Pain, Severe (Pain Scale 7-10) Last Admin: 06/15/22 08:00 Dose: 0.5 mg Documented By: FLAQUITO Valproic Acid 125 mg/ Dextrose 51.25 mls @ 52.504 mls/hr IV Q6H [facility] Last Infusion: 06/15/22 05:57 Dose: 0 mls/hr Documented By: WALLY Potassium Chloride/Sodium Chloride (Kcl 20 Meq In 0.9 % Sodium Chl) 20 meq in 1,000 mls @ 100 mls/hr IVCONT .Q10H [facility] Last Admin: 06/15/22 04:58 Dose: 100 mls/hr Documented By: WALLY Vancomycin HCl 1,250 mg/ (Sodium Chloride) 250 mls @ 166.667 mls/hr IV Q8H [facility] Last Infusion: 06/15/22 06:35 Dose: 166.67 mls/hr Documented By: WALLY Latanoprost (Latanoprost 0.005 % Ophth Saira 2.5 Ml Drops) 1 drop EYE-BOTH BEDTIME [facility] Last Admin: 06/14/22 21:38 Dose: 1 drop Documented By: WALLY Lorazepam (Lorazepam 1 Mg Tablet) 1 mg PO BID [facility] Last Admin: 06/15/22 08:06 Dose: 1 mg Documented By: FLAQUITO Lorazepam (Lorazepam 1 Mg Tablet) 1 mg PO DAILY PRN PRN Reason: Anxiety Last Admin: 06/15/22 08:06 Dose: 1 mg Documented By: FLAQUITO Naloxone HCl (Naloxone Hcl Nasal 4 Mg [place]) 4 mg NOSTRILALT ONCE PRN PRN Reason: Opiate Reversal Ondansetron HCl (Ondansetron Hcl 4 Mg/2 Ml Vial) 4 mg IVPUSH Q8H PRN PRN Reason: Nausea and Vomiting Last Admin: 06/14/22 23:14 Dose: 4 mg Documented By: WALLY Oxycodone HCl (Oxycodone Hcl Immed Release 5 Mg Tablet) 5 mg PO Q4H PRN PRN Reason: Pain, Moderate (Pain Scale 4-6 Oxycodone HCl (Oxycodone Hcl Immed Release 5 Mg Tablet) 10 mg PO Q4H PRN PRN Reason: Pain, Severe (Pain Scale 7-10) Pharmacy Consult (Consult Rx Perform Med Rec) 1 each MISCELLANE ONCE PRN PRN Reason: Consult order Pharmacy Consult (Consult Rx Vancomycin Dosing) 1 each MISCELLANE DAILY PRN PRN Reason: Consult order Sodium Chloride (0.9 % Sodium Chloride Flush 3 Ml Syringe) 3 ml IVFLUSH QSHIFT [facility] Last Admin: 06/15/22 08:01 Dose: 3 ml Documented By: FLAQUITO Venlafaxine HCl (Venlafaxine Hcl Er 37.5 Mg Cap.Er.24h) 37.5 mg PO DAILY [facility] Last Admin: 06/15/22 08:07 Dose: 37.5 mg Documented By: FLAQUITO Venlafaxine HCl (Venlafaxine Hcl Er 150 Mg Cap.Er.24h) 150 mg PO DAILY [facility] Last Admin: 06/15/22 08:56 Dose: 150 mg Documented By: FLAQUITO <Deedee Long PA-C - Last Filed: 06/15/22 09:27> Labs CBC & Chem 7: 06/14/22 05:24 06/15/22 05:25 <Deedee Long PA-C - Last Filed: 06/15/22 09:27> Labs: Laboratory Results - last 24 hr 06/14/22 06/15/22 10:59 05:25 Estim Creat Clear Calc 136.0 Estimated GFR > 60 Vancomycin Trough 12.1 <Deedee Long PA-C - Last Filed: 06/15/22 09:27> Microbiology Microbiology Results: Microbiology 06/10/22 00:33 Blood Culture - Final Blood - Venous No growth after 5 days. 06/10/22 00:33 Blood Culture - Final Blood - Venous No growth after 5 days. <Deedee Lnog PA-C - Last Filed: 06/15/22 09:27> Procedures Date of Service Date of Service: 06/15/22 <Deedee Long PA-C - Last Filed: 06/15/22 09:27> Progress Note: A&P Assessment and plan (1) S/P exploratory laparotomy: Status: Acute <Deedee Long PA-C - Last Filed: 06/15/22 09:27> Assessment and Plan: passing flatus no N/V abd soft, although protuberant - he says this is how his abdomen is normally ok to try clear liquids ambulate seen and examined - agree with JOSIANE Long <Francisco Guerrero MD - Last Filed: 06/15/22 09:45> (2) Chronic anticoagulation: Status: Acute <Deedee Long PA-C - Last Filed: 06/15/22 09:27> (3) Small bowel obstruction: Status: Acute <Deedee Long PA-C - Last Filed: 06/15/22 09:27> Assessment and Plan: 76 year old admitted with SBO ultimately requiring ex lap, BRANDAN 06/10/22. NGT clamp trial and removed yesterday. Feels improved this morning and c/o only headaches. Abd is protuberant but this is likely his normal. INcision clean. Will advance to clear liquids. Resume home PO meds. Increase activity, PT. Dispo planning. <Deedee Long PA-C - Last Filed: 06/15/22 09:27> Time Spent With Patient Time: Total time managing care of this patient today ____ minutes. <Deedee Long PA-C - Last Filed: 06/15/22 09:27> Quality Stroke Does the patient have a stroke diagnosis?: No <Deedee Long PA-C - Last Filed: 06/15/22 09:27> VTE Prior VTE?: No <Deedee Long PA-C - Last Filed: 06/15/22 09:27> VTE Risk Level:: Surgical - low <ROYAL Guzman Last Filed: 06/15/22 09:27> VTE Device Contraindication: N/A - Device Ordered <ROYAL Guzman Last Filed: 06/15/22 09:27> VTE Drug Contraindication: N/A - Med Ordered <Deedee Long PA-C - Last Filed: 06/15/22 09:27>
--- NOTE | 2022-06-15 09:20 | MHC.CLN ---
F/U DIET ADVANCED TODAY TO CLEAR LIQUIDS. HAD BEEN NPO X 6 DAYS DUE TO SBO. ADDED ENSURE CLEAR TID TO INCREASE NUTRITIONAL INTAKE. SUPPLEMENT PROVIDES ADDITIONAL 720 KCALS, 24 G PROTEIN. FOLLOW FOR DIET ADVANCEMENT AND INTAKE.
[2022-06-15] MEDS: vancomycin HCL 1,250 MG in 0.9 % Sodium Chloride 250 ML 166.67 MG IV ×2 (12:48→21:15)
[2022-06-15] MEDS: oxyCODONE HCl Immed Release 5 MG TABLET 10 MG PO ×2 (13:41→21:16)
[2022-06-15] MEDS: Enoxaparin Sodium 40 MG/0.4 ML SYRINGE SUBCUT (13:41)
[2022-06-15] MEDS: Latanoprost 0.005 % Ophth Sol 2.5 ML DROPS 1 DROP EYE-BOTH (21:24)
[2022-06-16] VITALS (8 sets, daily range): BP systolic 115–154; BP diastolic 69–97; PULSE 71–108; RESP 16–20; TEMP 36.3–37.1; O2SAT 91–98
--- NOTE | 2022-06-16 01:00 | PC.NURSE ---
patient alert in bed, forgetful. Cooperative currently with staff member sitting with patient for safety since previous shift.
[2022-06-16] MEDS: vancomycin HCL 1,250 MG in 0.9 % Sodium Chloride 250 ML 166.67 MG IV (05:58)
[2022-06-16 06:51] LABS: Creatinine Clr Calc Pharmacy 123.8; Estimated Glomerular Filt Rate > 60
[2022-06-16] MEDS: HYDROmorphone HCl 0.5 MG/0.5 ML SYRINGE IVPUSH ×3 (07:26→22:34)
[2022-06-16] MEDS: Venlafaxine HCl ER 37.5 MG CAP.ER.24H PO (08:38)
[2022-06-16] MEDS: amLODIPine Besylate 10 MG TABLET NG-TUBE (08:38)
[2022-06-16] MEDS: Venlafaxine HCl ER 150 MG CAP.ER.24H PO (08:38)
[2022-06-16] MEDS: LORazepam 1 MG TABLET PO ×2 (08:38→21:06)
[2022-06-16] MEDS: Famotidine 20 MG TABLET PO ×2 (08:38→21:06)
[2022-06-16] MEDS: Divalproex Sodium ER 500 MG TAB.ER.24H PO (08:38)
[2022-06-16] MEDS: Fluticasone/Vilanterol 100/25 BLST.W.DEV 1 PUFF INHALE (09:13)
--- NOTE | 2022-06-16 10:05 | P.PNGS_ITS ---
Subjective Subjective Date of Service: 06/17/22 Interval history: feels well denies significant abdl pain tolerating diet good flatus denies BM Physical Exam Vital Signs: Vital Signs: Last Vital Signs Temp 98.0 F 06/16/22 08:00 Pulse 88 06/16/22 09:13 Resp 18 06/16/22 09:13 BP 132/77 06/16/22 08:00 Pulse Ox 95 06/16/22 08:00 O2 Del Method 06/16/22 08:00 O2 Flow Rate 2 06/16/22 08:00 BMI result Body Mass Index 33.9 Const: General: comfortable and no acute distress Resp: Effort & Inspection: normal respiratory effort Cardio: Rate: regular rate GI: Other: protruberant Palpation (GI): Soft to palpation, not firm and no guarding Objective Data Active Medications Acetaminophen/Butalbital/Caffeine (Butalb/Acetamin/Caff 50/325/40 Tablet) 1 tab PO Q4H PRN PRN Reason: headache Albuterol Sulfate (Albuterol Sulfate 90 Mcg 8 Gm Inhaler) 2 puff INHALE Q6H PRN PRN Reason: shortness of breath or wheezing Amlodipine Besylate (Amlodipine Besylate 10 Mg Tablet) 10 mg NG-TUBE DAILY [facility]; Protocol Last Admin: 06/16/22 08:38 Dose: 10 mg Documented By: MARNI Albuterol Sulfate 2.5 mg/ (Ipratropium [place] 0.5 mg) 0 mg INHALE RQ4H PRN PRN Reason: Shortness of Breath/Wheezing Divalproex Sodium (Divalproex Sodium Er 500 Mg Tab.Er.24h) 500 mg PO DAILY [facility] Last Admin: 06/16/22 08:38 Dose: 500 mg Documented By: MARNI Enoxaparin Sodium (Enoxaparin Sodium 40 Mg/0.4 Ml Syringe) 40 mg SUBCUT Q24H [facility] Last Admin: 06/15/22 13:41 Dose: 40 mg Documented By: BINU Famotidine (Famotidine 20 Mg Tablet) 20 mg PO BID [facility] Last Admin: 06/16/22 08:38 Dose: 20 mg Documented By: MARNI Fluticasone Propionate (Fluticasone Propionate Nasal 16 Gm [place]) 1 spray NOSTRIL-B BID PRN PRN Reason: Allergy Symptoms Fluticasone/Vilanterol (Fluticasone/Vilanterol 100/25 Blst.W.Dev) 1 puff INHALE RDAILY [facility] Last Admin: 06/16/22 09:13 Dose: 1 puff Documented By: IRENA Hydromorphone HCl (Hydromorphone Hcl 0.5 Mg/0.5 Ml Syringe) 0.5 mg IVPUSH Q3H PRN; Protocol PRN Reason: Pain, Severe (Pain Scale 7-10) Last Admin: 06/16/22 07:26 Dose: 0.5 mg Documented By: MARNI Vancomycin HCl 1,250 mg/ (Sodium Chloride) 250 mls @ 166.667 mls/hr IV Q8H [facility] Last Infusion: 06/16/22 07:36 Dose: 0 mls/hr Documented By: MARNI Latanoprost (Latanoprost 0.005 % Ophth Sair[place] 2.5 Ml Drops) 1 drop EYE-BOTH BEDTIME [facility] Last Admin: 06/15/22 21:24 Dose: 1 drop Documented By: HELGA Lorazepam (Lorazepam 1 Mg Tablet) 1 mg PO BID [facility] Last Admin: 06/16/22 08:38 Dose: 1 mg Documented By: MARNI Lorazepam (Lorazepam 1 Mg Tablet) 1 mg PO DAILY PRN PRN Reason: Anxiety Last Admin: 06/15/22 08:06 Dose: 1 mg Documented By: FLAQUITO Naloxone HCl (Naloxone Hcl Nasal 4 Mg [place]) 4 mg NOSTRILALT ONCE PRN PRN Reason: Opiate Reversal Ondansetron HCl (Ondansetron Hcl 4 Mg/2 Ml Vial) 4 mg IVPUSH Q8H PRN PRN Reason: Nausea and Vomiting Last Admin: 06/14/22 23:14 Dose: 4 mg Documented By: WALLY Oxycodone HCl (Oxycodone Hcl Immed Release 5 Mg Tablet) 5 mg PO Q4H PRN PRN Reason: Pain, Moderate (Pain Scale 4-6 Oxycodone HCl (Oxycodone Hcl Immed Release 5 Mg Tablet) 10 mg PO Q4H PRN PRN Reason: Pain, Severe (Pain Scale 7-10) Last Admin: 06/15/22 21:16 Dose: 10 mg Documented By: HELGA Pharmacy Consult (Consult Rx Perform Med Rec) 1 each MISCELLANE ONCE PRN PRN Reason: Consult order Pharmacy Consult (Consult Rx Vancomycin Dosing) 1 each MISCELLANE DAILY PRN PRN Reason: Consult order Sodium Chloride (0.9 % Sodium Chloride Flush 3 Ml Syringe) 3 ml IVFLUSH QSHIFT [facility] Last Admin: 06/16/22 07:19 Dose: Not Given Documented By: MARNI Non-Admin Reason: IV Running Venlafaxine HCl (Venlafaxine Hcl Er 37.5 Mg Cap.Er.24h) 37.5 mg PO DAILY [facility] Last Admin: 06/16/22 08:38 Dose: 37.5 mg Documented By: MARNI Venlafaxine HCl (Venlafaxine Hcl Er 150 Mg Cap.Er.24h) 150 mg PO DAILY [facility] Last Admin: 06/16/22 08:38 Dose: 150 mg Documented By: MARNI Labs 06/14/22 05:24 06/16/22 05:23 Labs: Laboratory Results - last 24 hr 06/15/22 06/16/22 11:18 05:23 Estim Creat Clear Calc 123.8 Estimated GFR > 60 Random Vancomycin 14.0 L Procedures Date of Service Date of Service: 06/16/22 Progress Note: A&P Assessment and plan (1) S/P exploratory laparotomy: Status: Acute Assessment and Plan: appears to have good GI function he has been ambulating abd protruberant but pt says this is baseline for him exam benign PT eval to determine discharge planning - pt lives alone looks well overall appreciate hospitalist ffup Time Spent With Patient Time: Total time managing care of this patient today ____ minutes. Quality Stroke Does the patient have a stroke diagnosis?: No VTE Prior VTE?: No VTE Risk Level:: Surgical - low VTE Device Contraindication: N/A - Device Ordered VTE Drug Contraindication: N/A - Med Ordered
[2022-06-16 12:20] LABS: Vancomycin Trough 17.8 mcg/mL (10.0-20.0)
--- NOTE | 2022-06-16 12:38 | HE.PHANOTE ---
Vancomycin Dosing Level at 17.8 today. Level continue to rise even though renal function is stable. Will decrease dose to vancmycin 1000 mg Q8H, next level 06/17 @ 1100. Liat RamonD
[2022-06-16] MEDS: vancomycin HCL 1,000 MG in 0.9 % Sodium Chloride 250 ML 270 MG IV ×2 (13:35→21:07)
[2022-06-16] MEDS: oxyCODONE HCl Immed Release 5 MG TABLET 10 MG PO (14:13)
[2022-06-16] MEDS: Enoxaparin Sodium 40 MG/0.4 ML SYRINGE SUBCUT (15:50)
[2022-06-16] MEDS: Latanoprost 0.005 % Ophth Sol 2.5 ML DROPS 1 DROP EYE-BOTH (21:18)
[2022-06-16] MEDS: 0.9 % Sodium Chloride Flush 3 ML SYRINGE IVFLUSH (21:19)
[2022-06-17] MEDS: oxyCODONE HCl Immed Release 5 MG TABLET 10 MG PO ×4 (00:18→21:59)
[2022-06-17 04:00] VITALS: RESP 18
[2022-06-17] MEDS: vancomycin HCL 1,000 MG in 0.9 % Sodium Chloride 250 ML 270 MG IV ×2 (05:11→20:51)
[2022-06-17 06:47] LABS: Creatinine Clr Calc Pharmacy 125.7; Estimated Glomerular Filt Rate > 60
[2022-06-17 08:00] VITALS: BP 109/81; PULSE 86; RESP 18; TEMP 36.4; O2SAT 92
[2022-06-17] MEDS: Fluticasone/Vilanterol 100/25 BLST.W.DEV 1 PUFF INHALE (08:42)
[2022-06-17 08:44] VITALS: PULSE 95; RESP 16; O2SAT 95
[2022-06-17] MEDS: Divalproex Sodium ER 500 MG TAB.ER.24H PO (09:27)
[2022-06-17] MEDS: Venlafaxine HCl ER 37.5 MG CAP.ER.24H PO (09:27)
[2022-06-17] MEDS: amLODIPine Besylate 10 MG TABLET NG-TUBE (09:27)
[2022-06-17] MEDS: Venlafaxine HCl ER 150 MG CAP.ER.24H PO (09:27)
[2022-06-17] MEDS: Famotidine 20 MG TABLET PO ×2 (09:27→20:51)
[2022-06-17] MEDS: 0.9 % Sodium Chloride Flush 3 ML SYRINGE IVFLUSH ×3 (09:28→20:52)
--- NOTE | 2022-06-17 11:06 | PM.PNGS ---
Subjective Subjective Date of Service: 06/18/22 Interval history: feels well says he feels ready to go home good flatus some constipation Physical Exam Vital Signs: Vital Signs: Last Vital Signs Temp 97.6 F 06/17/22 08:00 Pulse 95 06/17/22 08:44 Resp 16 06/17/22 08:44 BP 109/81 06/17/22 08:00 Pulse Ox 92 06/17/22 08:00 O2 Del Method 06/17/22 08:00 O2 Flow Rate 1 06/17/22 08:00 BMI result Body Mass Index 33.9 Const: General: comfortable and no acute distress Resp: Effort & Inspection: normal respiratory effort Cardio: Rate: regular rate Objective Data Active Medications Acetaminophen/Butalbital/Caffeine (Butalb/Acetamin/Caff 50/325/40 Tablet) 1 tab PO Q4H PRN PRN Reason: headache Albuterol Sulfate (Albuterol Sulfate 90 Mcg 8 Gm Inhaler) 2 puff INHALE Q6H PRN PRN Reason: shortness of breath or wheezing Amlodipine Besylate (Amlodipine Besylate 10 Mg Tablet) 10 mg NG-TUBE DAILY [facility]; Protocol Last Admin: 06/17/22 09:27 Dose: 10 mg Documented By: MARNI Albuterol Sulfate 2.5 mg/ (Ipratropium [place] 0.5 mg) 0 mg INHALE RQ4H PRN PRN Reason: Shortness of Breath/Wheezing Divalproex Sodium (Divalproex Sodium Er 500 Mg Tab.Er.24h) 500 mg PO DAILY [facility] Last Admin: 06/17/22 09:27 Dose: 500 mg Documented By: MARNI Docusate Sodium (Docusate Sodium 100 Mg Capsule) 100 mg PO BID [facility] Enoxaparin Sodium (Enoxaparin Sodium 40 Mg/0.4 Ml Syringe) 40 mg SUBCUT Q24H [facility] Last Admin: 06/16/22 15:50 Dose: 40 mg Documented By: MARNI Famotidine (Famotidine 20 Mg Tablet) 20 mg PO BID [facility] Last Admin: 06/17/22 09:27 Dose: 20 mg Documented By: MARNI Fluticasone Propionate (Fluticasone Propionate Nasal 16 Gm [place]) 1 spray NOSTRIL-B BID PRN PRN Reason: Allergy Symptoms Fluticasone/Vilanterol (Fluticasone/Vilanterol 100/25 Blst.W.Dev) 1 puff INHALE RDAILY [facility] Last Admin: 06/17/22 08:42 Dose: 1 puff Documented By: IRENA Hydromorphone HCl (Hydromorphone Hcl 0.5 Mg/0.5 Ml Syringe) 0.5 mg IVPUSH Q3H PRN; Protocol PRN Reason: Pain, Severe (Pain Scale 7-10) Last Admin: 06/16/22 22:34 Dose: 0.5 mg Documented By: WALLY Vancomycin HCl 1,000 mg/ (Sodium Chloride) 270 mls @ 270 mls/hr IV Q8H [facility] Last Infusion: 06/17/22 06:19 Dose: 0 mls/hr Documented By: WALLY Latanoprost (Latanoprost 0.005 % Ophth Saira 2.5 Ml Drops) 1 drop EYE-BOTH BEDTIME [facility] Last Admin: 06/16/22 21:18 Dose: 1 drop Documented By: WALLY Lorazepam (Lorazepam 1 Mg Tablet) 1 mg PO DAILY PRN PRN Reason: Anxiety Last Admin: 06/15/22 08:06 Dose: 1 mg Documented By: FLAQUITO Naloxone HCl (Naloxone Hcl Nasal 4 Mg [place]) 4 mg NOSTRILALT ONCE PRN PRN Reason: Opiate Reversal Ondansetron HCl (Ondansetron Hcl 4 Mg/2 Ml Vial) 4 mg IVPUSH Q8H PRN PRN Reason: Nausea and Vomiting Last Admin: 06/14/22 23:14 Dose: 4 mg Documented By: WALLY Oxycodone HCl (Oxycodone Hcl Immed Release 5 Mg Tablet) 5 mg PO Q4H PRN PRN Reason: Pain, Moderate (Pain Scale 4-6 Oxycodone HCl (Oxycodone Hcl Immed Release 5 Mg Tablet) 10 mg PO Q4H PRN PRN Reason: Pain, Severe (Pain Scale 7-10) Last Admin: 06/17/22 09:28 Dose: 10 mg Documented By: MARNI Pharmacy Consult (Consult Rx Perform Med Rec) 1 each MISCELLANE ONCE PRN PRN Reason: Consult order Pharmacy Consult (Consult Rx Vancomycin Dosing) 1 each MISCELLANE DAILY PRN PRN Reason: Consult order Sodium Chloride (0.9 % Sodium Chloride Flush 3 Ml Syringe) 3 ml IVFLUSH QSHIFT [facility] Last Admin: 06/17/22 09:28 Dose: 3 ml Documented By: MARNI Venlafaxine HCl (Venlafaxine Hcl Er 37.5 Mg Cap.Er.24h) 37.5 mg PO DAILY [facility] Last Admin: 06/17/22 09:27 Dose: 37.5 mg Documented By: MARNI Venlafaxine HCl (Venlafaxine Hcl Er 150 Mg Cap.Er.24h) 150 mg PO DAILY [facility] Last Admin: 06/17/22 09:27 Dose: 150 mg Documented By: MARNI Labs 06/14/22 05:24 06/17/22 05:32 Labs: Laboratory Results - last 24 hr 06/16/22 06/17/22 11:58 05:32 Estim Creat Clear Calc 125.7 Estimated GFR > 60 Vancomycin Trough 17.8 Procedures Date of Service Date of Service: 06/17/22 Progress Note: A&P Assessment and plan (1) S/P exploratory laparotomy: Status: Acute Assessment and Plan: looks well abd soft advance diet appears ready for discharge he has been ambulating denies pain no N/V poss dc home once tolerating diet as per PT - ok to be home by himself Time Spent With Patient Time: Total time managing care of this patient today ____ minutes. Quality Stroke Does the patient have a stroke diagnosis?: No VTE Prior VTE?: No VTE Risk Level:: Surgical - low VTE Device Contraindication: N/A - Device Ordered VTE Drug Contraindication: N/A - Med Ordered
[2022-06-17 11:33] LABS: Vancomycin Trough 16.7 mcg/mL (10.0-20.0)
--- NOTE | 2022-06-17 11:39 | HE.PHANOTE ---
Vancomycin Dosing Level decrease to 16.7 after decrease in dose. Renal function is stable. Conntinue current regimen. Next level scheduled for 06/18 @ 1100. Liat RamonD
[2022-06-17] MEDS: Enoxaparin Sodium 40 MG/0.4 ML SYRINGE SUBCUT (14:49)
--- NOTE | 2022-06-17 15:04 | MHC.CM.PN ---
PLAN WAS FOR DC HOME TODAY - SELFCARE PATIENT TO REMAIN TONIGHT.
[2022-06-17 15:46] VITALS: BP 123/65; PULSE 80; RESP 20; TEMP 36.7; O2SAT 93
[2022-06-17] MEDS: Milk of Magnesia 30 ML ORAL.SUSP PO (15:58)
[2022-06-17] MEDS: LORazepam 1 MG TABLET PO (15:58)
[2022-06-17] MEDS: HYDROmorphone HCl 0.5 MG/0.5 ML SYRINGE IVPUSH (17:45)
--- NOTE | 2022-06-17 17:48 | PM.EVENT ---
Event Note Date of Service: 06/17/22 Event Note: he tolerated regular diet for lunch abd appears protruberant - he says this is normal for him he lives alone, plans to drive himself home will see how he does overnight plan to dc home ig he continues to do well overnight Time Spent With Patient Time: Total time managing care of this patient today ____ minutes.
[2022-06-17] MEDS: Docusate Sodium 100 MG CAPSULE PO (17:51)
[2022-06-17 19:22] VITALS: BP 111/63; PULSE 94; RESP 20; TEMP 36.3; O2SAT 94
[2022-06-17] MEDS: Latanoprost 0.005 % Ophth Sol 2.5 ML DROPS 1 DROP EYE-BOTH (20:52)
[2022-06-17 23:48] VITALS: BP 111/74; PULSE 74; RESP 20; TEMP 36.4; O2SAT 92
[2022-06-18] VITALS (8 sets, daily range): BP systolic 102–166; BP diastolic 60–98; PULSE 74–100; RESP 16–20; TEMP 36.1–37.1; O2SAT 92–98
[2022-06-18] MEDS: LORazepam 1 MG TABLET PO ×2 (00:28→16:33)
[2022-06-18] MEDS: HYDROmorphone HCl 0.5 MG/0.5 ML SYRINGE IVPUSH ×4 (00:30→20:31)
[2022-06-18] MEDS: vancomycin HCL 1,000 MG in 0.9 % Sodium Chloride 250 ML 270 MG IV (05:32)
[2022-06-18 07:12] LABS: Creatinine Clr Calc Pharmacy 99.9; Estimated Glomerular Filt Rate > 60
[2022-06-18 07:14] LABS: Anion Gap 14 (12-20); Blood Urea Nitrogen 9 mg/dL (9-16); Calcium 8.4 mg/dL (8.4-10.2); Carbon Dioxide 32 mmol/L (22-29); Chloride 96 mmol/L (96-108); Creatinine Clr Calc Pharmacy 99.9; Estimated Glomerular Filt Rate > 60; Glucose Random 93 mg/dL (60-115); Sodium 139 mmol/L (135-145)
--- NOTE | 2022-06-18 07:29 | P.PNGS_ITS ---
Subjective Subjective Date of Service: 06/18/22 Interval history: says he wants to go home and feels ready however, descibes episode of emesis last night also, denies flatus or BMs denies signficant abdl pain Physical Exam Vital Signs: Vital Signs: Last Vital Signs Temp 97.3 F 06/18/22 03:00 Pulse 85 06/18/22 03:00 Resp 20 06/18/22 03:00 BP 115/60 06/18/22 03:00 Pulse Ox 95 06/18/22 03:00 O2 Del Method 06/18/22 03:00 O2 Flow Rate 1 06/18/22 03:00 BMI result Body Mass Index 33.9 Const: General: comfortable and no acute distress Resp: Effort & Inspection: normal respiratory effort Cardio: Rate: regular rate GI: Other: prtrouberant/distended, soft, incision clean Objective Data Active Medications Acetaminophen/Butalbital/Caffeine (Butalb/Acetamin/Caff 50/325/40 Tablet) 1 tab PO Q4H PRN PRN Reason: headache Albuterol Sulfate (Albuterol Sulfate 90 Mcg 8 Gm Inhaler) 2 puff INHALE Q6H PRN PRN Reason: shortness of breath or wheezing Amlodipine Besylate (Amlodipine Besylate 10 Mg Tablet) 10 mg NG-TUBE DAILY [facility]; Protocol Last Admin: 06/17/22 09:27 Dose: 10 mg Documented By: MARNI Albuterol Sulfate 2.5 mg/ (Ipratropium [place] 0.5 mg) 0 mg INHALE RQ4H PRN PRN Reason: Shortness of Breath/Wheezing Divalproex Sodium (Divalproex Sodium Er 500 Mg Tab.Er.24h) 500 mg PO DAILY [facility] Last Admin: 06/17/22 09:27 Dose: 500 mg Documented By: MARNI Docusate Sodium (Docusate Sodium 100 Mg Capsule) 100 mg PO BID [facility] Last Admin: 06/17/22 17:51 Dose: 100 mg Documented By: MARNI Enoxaparin Sodium (Enoxaparin Sodium 40 Mg/0.4 Ml Syringe) 40 mg SUBCUT Q24H [facility] Last Admin: 06/17/22 14:49 Dose: 40 mg Documented By: MARNI Famotidine (Famotidine 20 Mg Tablet) 20 mg PO BID [facility] Last Admin: 06/17/22 20:51 Dose: 20 mg Documented By: WALLY Fluticasone Propionate (Fluticasone Propionate Nasal 16 Gm [place]) 1 spray NOSTRIL-B BID PRN PRN Reason: Allergy Symptoms Fluticasone/Vilanterol (Fluticasone/Vilanterol 100/25 Blst.W.Dev) 1 puff INHALE RDAILY [facility] Last Admin: 06/17/22 08:42 Dose: 1 puff Documented By: IRENA Hydromorphone HCl (Hydromorphone Hcl 0.5 Mg/0.5 Ml Syringe) 0.5 mg IVPUSH Q3H PRN; Protocol PRN Reason: Pain, Severe (Pain Scale 7-10) Last Admin: 06/18/22 00:30 Dose: 0.5 mg Documented By: WALLY Vancomycin HCl 1,000 mg/ (Sodium Chloride) 270 mls @ 270 mls/hr IV Q8H [facility] Last Infusion: 06/18/22 06:38 Dose: 0 mls/hr Documented By: WALLY Latanoprost (Latanoprost 0.005 % Ophth Saira 2.5 Ml Drops) 1 drop EYE-BOTH BEDTIME [facility] Last Admin: 06/17/22 20:52 Dose: 1 drop Documented By: WALLY Lorazepam (Lorazepam 1 Mg Tablet) 1 mg PO BID PRN PRN Reason: Anxiety Last Admin: 06/18/22 00:28 Dose: 1 mg Documented By: WALLY Comments: pt is anxious ok by Naloxone HCl (Naloxone Hcl Nasal 4 Mg [place]) 4 mg NOSTRILALT ONCE PRN PRN Reason: Opiate Reversal Ondansetron HCl (Ondansetron Hcl 4 Mg/2 Ml Vial) 4 mg IVPUSH Q8H PRN PRN Reason: Nausea and Vomiting Last Admin: 06/14/22 23:14 Dose: 4 mg Documented By: WALLY Oxycodone HCl (Oxycodone Hcl Immed Release 5 Mg Tablet) 5 mg PO Q4H PRN PRN Reason: Pain, Moderate (Pain Scale 4-6 Oxycodone HCl (Oxycodone Hcl Immed Release 5 Mg Tablet) 10 mg PO Q4H PRN PRN Reason: Pain, Severe (Pain Scale 7-10) Last Admin: 06/17/22 21:59 Dose: 10 mg Documented By: WALLY Pharmacy Consult (Consult Rx Perform Med Rec) 1 each MISCELLANE ONCE PRN PRN Reason: Consult order Pharmacy Consult (Consult Rx Vancomycin Dosing) 1 each MISCELLANE DAILY PRN PRN Reason: Consult order Sodium Chloride (0.9 % Sodium Chloride Flush 3 Ml Syringe) 3 ml IVFLUSH QSHIFT [facility] Last Admin: 06/17/22 20:52 Dose: 3 ml Documented By: WALLY Venlafaxine HCl (Venlafaxine Hcl Er 37.5 Mg Cap.Er.24h) 37.5 mg PO DAILY [facility] Last Admin: 06/17/22 09:27 Dose: 37.5 mg Documented By: MARNI Venlafaxine HCl (Venlafaxine Hcl Er 150 Mg Cap.Er.24h) 150 mg PO DAILY [facility] Last Admin: 06/17/22 09:27 Dose: 150 mg Documented By: MARNI Labs 06/14/22 05:24 06/18/22 06:04 Labs: Laboratory Results - last 24 hr 06/17/22 06/18/22 06/18/22 11:01 06:04 06:04 Anion Gap 14 Estim Creat Clear Calc 99.9 99.9 Estimated GFR > 60 > 60 Random Glucose 93 Calcium 8.4 D Vancomycin Trough 16.7 Procedures Date of Service Date of Service: 06/18/22 Progress Note: A&P Assessment and plan (1) S/P exploratory laparotomy: Status: Acute Assessment and Plan: seems to have been doing well, but describes one episode of vomitting last night no flatus abd distended/protruberant but soft - he insists this is baseline for him will check KUB replace K ambulate Time Spent With Patient Time: Total time managing care of this patient today ____ minutes. Quality Stroke Does the patient have a stroke diagnosis?: No VTE Prior VTE?: No VTE Risk Level:: Surgical - low VTE Device Contraindication: N/A - Device Ordered VTE Drug Contraindication: N/A - Med Ordered
[2022-06-18] MEDS: Fluticasone/Vilanterol 100/25 BLST.W.DEV 1 PUFF INHALE (07:53)
[2022-06-18] MEDS: Divalproex Sodium ER 500 MG TAB.ER.24H PO (08:53)
[2022-06-18] MEDS: Potassium Chloride ER 20 MEQ TAB.ER.PRT PO ×3 (08:53→20:30)
[2022-06-18] MEDS: Famotidine 20 MG TABLET PO ×2 (08:53→20:30)
[2022-06-18] MEDS: Docusate Sodium 100 MG CAPSULE PO ×2 (08:53→20:30)
[2022-06-18] MEDS: Venlafaxine HCl ER 37.5 MG CAP.ER.24H PO (08:53)
[2022-06-18] MEDS: 0.9 % Sodium Chloride Flush 3 ML SYRINGE IVFLUSH ×3 (08:53→20:31)
[2022-06-18] MEDS: Venlafaxine HCl ER 150 MG CAP.ER.24H PO (08:53)
[2022-06-18] MEDS: amLODIPine Besylate 10 MG TABLET NG-TUBE (08:53)
--- NOTE | 2022-06-18 10:17 | MHC.CLN ---
F/U DIET ADVANCED TO REGULAR ON 06/17. MOST RECENT INTAKE 50-100%. ONE EPISODE OF VOMITING NOTED. FOLLOW FOR DIET TOLERANCE AND INTAKE.
[2022-06-18 11:35] LABS: Vancomycin Trough 18.6 mcg/mL (10.0-20.0)
[2022-06-18] MEDS: oxyCODONE HCl Immed Release 5 MG TABLET 10 MG PO (12:07)
[2022-06-18] MEDS: vancomycin HCL 750 MG in 0.9 % Sodium Chloride 250 ML 265 MG IV ×2 (12:08→20:38)
[2022-06-18] MEDS: Enoxaparin Sodium 40 MG/0.4 ML SYRINGE SUBCUT (14:34)
[2022-06-18] MEDS: Latanoprost 0.005 % Ophth Sol 2.5 ML DROPS 1 DROP EYE-BOTH (20:30)
[2022-06-19] VITALS (7 sets, daily range): BP systolic 111–149; BP diastolic 69–90; PULSE 69–93; RESP 18–22; TEMP 36–36.7; O2SAT 95–99
[2022-06-19] MEDS: HYDROmorphone HCl 0.5 MG/0.5 ML SYRINGE IVPUSH ×4 (00:15→19:38)
[2022-06-19] MEDS: vancomycin HCL 750 MG in 0.9 % Sodium Chloride 250 ML 265 MG IV (04:45)
[2022-06-19 07:22] LABS: Anion Gap 16 (12-20); Blood Urea Nitrogen 11 mg/dL (9-16); Calcium 8.8 mg/dL (8.4-10.2); Carbon Dioxide 27 mmol/L (22-29); Chloride 99 mmol/L (96-108); Creatinine Clr Calc Pharmacy 80.5; Estimated Glomerular Filt Rate > 60; Glucose Random 111 mg/dL (60-115); Potassium 3.4 mmol/L (3.3-5.1); Sodium 139 mmol/L (135-145)
[2022-06-19 07:23] LABS: Estimated Glomerular Filt Rate > 60
[2022-06-19] MEDS: 0.9 % Sodium Chloride Flush 3 ML SYRINGE IVFLUSH ×3 (07:41→19:42)
--- NOTE | 2022-06-19 08:24 | P.CDIC_ITS ---
CDI Concurrent Query Documentation Clarification: PHYSICIAN'S DOCUMENTATION REQUEST Date of Query: 06/19/22 0824 Patient Name: Ottoniel Salas Admit Date: 06/09/22 Dear Doctor, A review of the medical record indicates additional documentation may be needed. Please review below and update the documentation accordingly. Risk Factors/Clinical Indicators/Treatments Per MD progress note 06/18/22: replace K potassium 3.0 on 06/18/22 treated with Klor-Con Based on the above, could you clarify in the Progress Notes the appropriate diagnosis, if significant, that supports the above abnormalities and additional evaluation, monitoring, and/or treatment rendered: * Labs indicate a diagnosis of (please specify) * Other (please specify) * Unable to determine Use of terms such as suspected, likely, concern for, or probable (associated with a specific diagnosis that is being evaluated, monitored, or treated as if it exists) are acceptable and can be coded in the inpatient setting, when documented at the time of discharge. Thank you, Ofelia Garber RN Extension: [phone] Please use your independent medical judgment in providing your response. THIS QUERY IS PART OF THE PERMANENT MEDICAL RECORD Provider Response: Other Other Diagnosis: hypokalemia
[2022-06-19 08:56] LABS: Hematocrit 37.9 % (42.0-52.0); Mean Corpuscular HGB Conc 34.3 g/dl (31.0-36.0); Mean Corpuscular Hemoglobin 31.4 pg (27.0-33.0); Mean Corpuscular Volume 91.5 fL (80.0-98.0); Platelet Count 397 X10*3/uL (160-400); Red Blood Count 4.14 X10*6/uL (4.60-5.80); White Blood Count 14.9 X10*3/uL (4.8-10.8)
[2022-06-19 09:11] LABS: Anion Gap 15 (12-20); Blood Urea Nitrogen 12 mg/dL (9-16); Calcium 8.9 mg/dL (8.4-10.2); Carbon Dioxide 30 mmol/L (22-29); Chloride 99 mmol/L (96-108); Creatinine Clr Calc Pharmacy 75.4; Estimated Glomerular Filt Rate > 60; Glucose Random 111 mg/dL (60-115); Potassium 3.3 mmol/L (3.3-5.1); Sodium 141 mmol/L (135-145)
[2022-06-19 09:20] LABS: Troponin-I High Sensitivity 5.2 ng/L (<3.5-35.0)
--- NOTE | 2022-06-19 09:44 | P.PNGS_ITS ---
Subjective Subjective Date of Service: 06/19/22 <Deedee Long PA-C - Last Filed: 06/19/22 09:51> 06/19/22 <Francisco Guerrero MD - Last Filed: 06/19/22 11:24> Interval history: No further vomiting since Saturday but began to feel worse overall overnight. Not passing much flatus. Denies CP, palpitations, SOB. <Deedee Long PA-C - Last Filed: 06/19/22 09:51> Physical Exam Vital Signs: Vital Signs: Last Vital Signs Temp 97.8 F 06/19/22 07:23 Pulse 69 06/19/22 07:23 Resp 18 06/19/22 07:23 BP 138/82 06/19/22 07:23 Pulse Ox 95 06/19/22 07:23 O2 Del Method 06/19/22 07:23 O2 Flow Rate 2 06/19/22 07:23 BMI result Body Mass Index 33.9 <Deedee Long PA-C - Last Filed: 06/19/22 09:51> Const: General: diaphoretic and ill appearing <Deedee Long PA-C - Last Filed: 06/19/22 09:51> Orientation/consciousness: patient oriented x3 <Deedee Long PA-C - Last Filed: 06/19/22 09:51> Resp: Effort & Inspection: normal respiratory effort <Deedee Long PA-C - Last Filed: 06/19/22 09:51> Cardio: Rate: regular rate <Deedee Long PA-C - Last Filed: 06/19/22 09:51> GI: Inspection: Yes distended (increasingly) and Yes incision (clean) <ROYAL Guzman Last Filed: 06/19/22 09:51> Palpation (GI): Soft to palpation, Tenderness to palpation present (GI), no guarding and not rigid <ROYAL Guzman Last Filed: 06/19/22 09:51> Percussion: Yes tympanic to percussion <ROYAL Guzman Last Filed: 06/19/22 09:51> Skin: General skin exam: no rashes or lesions noted <Deedee Long PA-C - Last Filed: 06/19/22 09:51> Neuro: General: patient oriented x3 and moves all extremities <Deedee Long PA-C - Last Filed: 06/19/22 09:51> Extrem: General: Yes no clubbing, cyanosis or edema and Yes no calf tenderness <Deedee Long PA-C - Last Filed: 06/19/22 09:51> Objective Data Active Medications Acetaminophen/Butalbital/Caffeine (Butalb/Acetamin/Caff 50/325/40 Tablet) 1 tab PO Q4H PRN PRN Reason: headache Albuterol Sulfate (Albuterol Sulfate 90 Mcg 8 Gm Inhaler) 2 puff INHALE Q6H PRN PRN Reason: shortness of breath or wheezing Amlodipine Besylate (Amlodipine Besylate 10 Mg Tablet) 10 mg NG-TUBE DAILY [facility]; Protocol Last Admin: 06/18/22 08:53 Dose: 10 mg Documented By: BERTA Albuterol Sulfate 2.5 mg/ (Ipratropium [place] 0.5 mg) 0 mg INHALE RQ4H PRN PRN Reason: Shortness of Breath/Wheezing Divalproex Sodium (Divalproex Sodium Er 500 Mg Tab.Er.24h) 500 mg PO DAILY [facility] Last Admin: 06/18/22 08:53 Dose: 500 mg Documented By: BERTA Docusate Sodium (Docusate Sodium 100 Mg Capsule) 100 mg PO BID [facility] Last Admin: 06/18/22 20:30 Dose: 100 mg Documented By: ELLEN Enoxaparin Sodium (Enoxaparin Sodium 40 Mg/0.4 Ml Syringe) 40 mg SUBCUT Q24H [facility] Last Admin: 06/18/22 14:34 Dose: 40 mg Documented By: BERTA Famotidine (Famotidine 20 Mg Tablet) 20 mg PO BID [facility] Last Admin: 06/18/22 20:30 Dose: 20 mg Documented By: ELLEN Fluticasone Propionate (Fluticasone Propionate Nasal 16 Gm [place]) 1 spray NOSTRIL-B BID PRN PRN Reason: Allergy Symptoms Fluticasone/Vilanterol (Fluticasone/Vilanterol 100/25 Blst.W.Dev) 1 puff INHALE RDAILY [facility] Last Admin: 06/19/22 08:22 Dose: Not Given Documented By: IRENA Non-Admin Reason: Patient Condition Contraindication Hydromorphone HCl (Hydromorphone Hcl 0.5 Mg/0.5 Ml Syringe) 0.5 mg IVPUSH Q3H PRN; Protocol PRN Reason: Pain, Severe (Pain Scale 7-10) Last Admin: 06/19/22 07:41 Dose: 0.5 mg Documented By: BERTA Vancomycin HCl 750 mg/ Sodium (Chloride) 265 mls @ 265 mls/hr IV Q8H [facility] Last Infusion: 06/19/22 05:58 Dose: 0 mls/hr Documented By: VANDANA Latanoprost (Latanoprost 0.005 % Ophth Saira 2.5 Ml Drops) 1 drop EYE-BOTH BEDTIME [facility] Last Admin: 06/18/22 20:30 Dose: 1 drop Documented By: ELLEN Lorazepam (Lorazepam 1 Mg Tablet) 1 mg PO BID PRN PRN Reason: Anxiety Last Admin: 06/18/22 16:33 Dose: 1 mg Documented By: ADRYAN Naloxone HCl (Naloxone Hcl Nasal 4 Mg [place]) 4 mg NOSTRILALT ONCE PRN PRN Reason: Opiate Reversal Ondansetron HCl (Ondansetron Hcl 4 Mg/2 Ml Vial) 4 mg IVPUSH Q8H PRN PRN Reason: Nausea and Vomiting Last Admin: 06/14/22 23:14 Dose: 4 mg Documented By: WALLY Oxycodone HCl (Oxycodone Hcl Immed Release 5 Mg Tablet) 5 mg PO Q4H PRN PRN Reason: Pain, Moderate (Pain Scale 4-6 Oxycodone HCl (Oxycodone Hcl Immed Release 5 Mg Tablet) 10 mg PO Q4H PRN PRN Reason: Pain, Severe (Pain Scale 7-10) Last Admin: 06/18/22 12:07 Dose: 10 mg Documented By: BINU Pharmacy Consult (Consult Rx Perform Med Rec) 1 each MISCELLANE ONCE PRN PRN Reason: Consult order Pharmacy Consult (Consult Rx Vancomycin Dosing) 1 each MISCELLANE DAILY PRN PRN Reason: Consult order Sodium Chloride (0.9 % Sodium Chloride Flush 3 Ml Syringe) 3 ml IVFLUSH QSHIFT [facility] Last Admin: 06/19/22 07:41 Dose: 3 ml Documented By: BERTA Venlafaxine HCl (Venlafaxine Hcl Er 37.5 Mg Cap.Er.24h) 37.5 mg PO DAILY [facility] Last Admin: 06/18/22 08:53 Dose: 37.5 mg Documented By: BERTA Venlafaxine HCl (Venlafaxine Hcl Er 150 Mg Cap.Er.24h) 150 mg PO DAILY [facility] Last Admin: 06/18/22 08:53 Dose: 150 mg Documented By: BERTA <Deedee Long PA-C - Last Filed: 06/19/22 09:51> Labs CBC & Chem 7: 06/19/22 08:39 06/19/22 08:39 <Deedee Long PA-C - Last Filed: 06/19/22 09:51> Labs: Laboratory Results - last 24 hr 06/18/22 06/19/22 06/19/22 11:08 06:26 06:26 MCV MCH MCHC RDW Plt Count MPV Absolute Nucleated RBC Nucleated RBC % (auto) Anion Gap 16 Estim Creat Clear Calc 79.0 80.5 Estimated GFR > 60 > 60 Random Glucose 111 Calcium 8.8 Troponin I High Sens Vancomycin Trough 18.6 06/19/22 06/19/22 06/19/22 08:39 08:39 08:39 MCV 91.5 MCH 31.4 MCHC 34.3 RDW 14.0 Plt Count 397 D MPV 10.0 Absolute Nucleated RBC 0.000 Nucleated RBC % (auto) 0.0 Anion Gap 15 Estim Creat Clear Calc 75.4 Estimated GFR > 60 Random Glucose 111 Calcium 8.9 Troponin I High Sens 5.2 Vancomycin Trough <Deedee Long PA-C - Last Filed: 06/19/22 09:51> Procedures Date of Service Date of Service: 06/19/22 <ROYAL Guzman Last Filed: 06/19/22 09:51> Progress Note: A&P Assessment and plan (1) S/P exploratory laparotomy: Status: Acute <Deedee Long PA-C - Last Filed: 06/19/22 09:51> Assessment and Plan: states he was not feeling well this morning some nausea abdomen distended NG tube inserted - he had about 300 cc output on insertion of NG tube ordered for labs follow-up CT scan - KUB yesterday showing distended small bowel loops seen and examined independently - agree with JOSIANE Long <Francisco Guerrero MD - Last Filed: 06/19/22 11:24> (2) Small bowel obstruction: Status: Acute <Deedee Long PA-C - Last Filed: 06/19/22 09:51> Assessment and Plan: 76 year old male admitted with SBO that required laparotomy, BRANDAN on 06/10/22. He had a slow recovery course and was doing well over the weekend and tolerating solid food. He is clinically worse this morning with increasing discomfort and abd distention, diaphoretic on exam. NGT inserted this am with immediate evacuation of ~300cc bilious drainage. CBC, BMP, troponin obtained- significant for increasing leukocytosis. K on the low end of normal. CT scan abd/pelvis with IV contrast pending. Cont supportive measures- NPO, NGT decompression, IVF restarted. Further plan dependent on CT scan results. <Deedee Long PA-C - Last Filed: 06/19/22 09:51> Time Spent With Patient Time: Total time managing care of this patient today ____ minutes. <Deedee Long PA-C - Last Filed: 06/19/22 09:51> Quality Stroke Does the patient have a stroke diagnosis?: No <Deedee Long PA-C - Last Filed: 06/19/22 09:51> VTE Prior VTE?: No <Deedee Long PA-C - Last Filed: 06/19/22 09:51> VTE Risk Level:: Surgical - low <Deedee Long PA-C - Last Filed: 06/19/22 09:51> VTE Device Contraindication: N/A - Device Ordered <ROYAL Guzman Last Filed: 06/19/22 09:51> VTE Drug Contraindication: N/A - Med Ordered <Deedee Long PA-C - Last Filed: 06/19/22 09:51>
[2022-06-19] MEDS: Acetaminophen 1,000 MG/100 ML PIGGYBACK 400 MG IV ×3 (10:31→21:47)
[2022-06-19 10:51] LABS: Magnesium 1.9 mg/dL (1.6-2.6)
[2022-06-19] MEDS: KCl 20 mEq in 0.9 % Sodium ChL 20 MEQ/1,000 ML IV.SOLN 100 MEQ IVCONT ×2 (10:57→19:42)
--- NOTE | 2022-06-19 11:38 | MHC.CM.PN ---
EMR REVIEWED, PT CONT'S TO RECEIVE IV PAIN MEDS, NPO AND NG TUBE REINSERTED AND NO PLAN FOR D/C TODAY, CM WILL CONT TO FOLLOW D/C NEEDS. ANTIC PT WILL D/C W/NEW BILL WHO ARE FOLLOWING.
[2022-06-19] MEDS: Enoxaparin Sodium 40 MG/0.4 ML SYRINGE SUBCUT (14:39)
--- NOTE | 2022-06-19 15:11 | PM.EVENT ---
Event Note Date of Service: 06/19/22 Event Note: CT shows partial small-bowel obstruction in same area Re-examined on afternoon rounds Abdomen much softer, no guarding rebound NG tube in place Patient mildly confused Continue IV fluids NG tube to wall suction Consider small-bowel series down the line Time Spent With Patient Time: Total time managing care of this patient today ____ minutes.
--- NOTE | 2022-06-19 15:57 | PC.NURSE ---
Patient lethargic, cool and clammy. Abdomen very distended and firm. Grunting with exhalation. Reporting 9/[address] Guerrero notified. In to see patient and placed NG tube to right nare. Immediately drained 1L light brown liquid. Patient medicated for pain with .5 dilaudid as prn order. Slept most of shift but easy to arouse. Down for CT this afternoon which showed SBO. Abomen still largly distended but less firm.
--- NOTE | 2022-06-19 18:10 | PC.NURSE ---
Pt is very lethargic and sleepy most of the shift. Assumed pt care at 1530. NG tubeto the right nare intact and patent draining brown liquid. 50cc ouput. ABD distention noted.
--- NOTE | 2022-06-19 19:16 | W.PM.OPN ---
Operative Note Operative Note Date of Service: 06/10/22 Narrative: Preop diagnosis--small bowel obstruction Postop diagnosis--small bowel obstruction Procedure --exploratory laparotomy with lysis of adhesions Surgeon-- Angelica Attraction Attendant-- Annabella Trejo Anesthesia--COLT The patient is a 76-year-old male who has had multiple abdominal surgeries in the past consisting of colectomies and abdominal wall hernia repair and open gallbladder resection. He comes in with several days of nausea vomiting at home. He underwent NG tube decompression with IV hydration and bowel rest and despite this his abdominal pain continues to get worse. CT scan showed transition point in the anterior abdominal area just under the midline aspect probably secondary to adhesions. As a result plan is to take to the OR for exploration and most likely lysis of adhesions and possible bowel resection. Patient understands and agrees with the above plan Procedure-- Patient was brought to the operative room and under anesthesia guidance was intubated. He had compression stockings placed before induction had been receiving antibiotics had a Cesar catheter placed. His abdomen was prepped and draped in standard surgical fashion. In reviewing the CT scan the area of transition appeared to be at the apex of the round midline abdomen and so an incision was created through his previous incision at this level. It is extended little bit superiorly and laterally with the scalpel getting down until the fascia. The fascia was opened up a little bit with cautery and then also with the scalpel as we were coming through the mesh. There was bowel noted to be right underneath. With careful dissection using the scalpel and Metzenbaum scissors we were able to get in lysis adhesions right underneath and elevate the fascial and mesh edges with Sloan clamps. It was noted that there were 2 layers of mesh a deeper peritoneal cortex comp visit mesh as well as what seemed to be a intra-wall Vicryl type mesh. The [place] mesh was opened with curved Mayos. Very carefully and slowly lysis of adhesions were carried from the midline going laterally to the left and the right side such that we eventually got into the peritoneal cavity. Here there was a large number of adhesions and dilated small bowel loops. To the right there were more normal decompressed bowel loops. Right underneath this area was a massive small bowel with multiple loops of adhesions tacked to each other. After taking down the adhesions from the anterior abdominal wall mesh this area still looked restricted and it was determined that these intra-loops adhesions were what were causing the transition zone. These were all carefully opened up using Metzenbaums care was taken to not create any enterotomies. We got to the point where we went from distended small bowel to the decompressed small bowel. This area was run several times and all looked fine distally about small bowel was all decompressed. There were more adhesions around but at this point they did not appear to be causative of the patient's problems. Once examining the area that was taken down in the small bowel straightened out we were able to pass the fecal lysed stool from proximal to distal area manually pushing it through the area of the previous bowel adhesions and obstruction. Everything looks fine. Patient had a large number of adhesion areas in the right upper quadrant and midline area superiorly secondary to his open gallbladder surgery. An NG tube had been placed but it was difficult to feel the stomach and it was decided not to make the incision any larger in order to just feel for placement. The area was irrigated and suctioned the [place] mesh which we came through was then closed with 0 Surgilon in a running fashion the mesh both intraperitoneal and preperitoneal he seemed to be well incorporated there is no evidence of any infection etc. the anterior abdominal wall fascia with the Vicryl type mesh now was closed with interrupted [id number] #1 Surgilon this allowed for good approximation skin was closed with musa after several Vicryl sutures were used to approximate the fatty tissue the area had been irrigated also at the end of the case all sponge instrument needle counts were correct estimated blood loss was minimal no specimens were sent patient was returned stable to the recovery room after extubation NG tube IV fluids and Cesar catheter were continued
[2022-06-19] MEDS: LORazepam 1 MG TABLET PO (19:41)
[2022-06-19] MEDS: Famotidine 20 MG TABLET PO (19:42)
[2022-06-19] MEDS: Docusate Sodium 100 MG CAPSULE PO (19:42)
[2022-06-19] MEDS: Latanoprost 0.005 % Ophth Sol 2.5 ML DROPS 1 DROP EYE-BOTH (19:47)
[2022-06-20] MEDS: HYDROmorphone HCl 0.5 MG/0.5 ML SYRINGE IVPUSH ×2 (03:19→12:58)
[2022-06-20 03:20] VITALS: BP 135/81; PULSE 75; RESP 18; TEMP 36.1; O2SAT 95
[2022-06-20] MEDS: KCl 20 mEq in 0.9 % Sodium ChL 20 MEQ/1,000 ML IV.SOLN 100 MEQ IVCONT ×2 (03:23→14:27)
[2022-06-20] MEDS: Acetaminophen 1,000 MG/100 ML PIGGYBACK 400 MG IV ×4 (03:23→22:23)
[2022-06-20 06:55] LABS: Creatinine Clr Calc Pharmacy 76.8; Estimated Glomerular Filt Rate > 60
[2022-06-20 07:31] VITALS: PULSE 88; RESP 16; O2SAT 94
[2022-06-20] MEDS: Fluticasone/Vilanterol 100/25 BLST.W.DEV 1 PUFF INHALE (07:31)
[2022-06-20 07:39] VITALS: BP 126/78; PULSE 76; RESP 18; TEMP 36.1; O2SAT 97
[2022-06-20] MEDS: Venlafaxine HCl ER 37.5 MG CAP.ER.24H PO (07:39)
[2022-06-20] MEDS: Venlafaxine HCl ER 150 MG CAP.ER.24H PO (07:39)
[2022-06-20] MEDS: Docusate Sodium 100 MG CAPSULE PO ×2 (07:40→22:20)
[2022-06-20] MEDS: Famotidine 20 MG TABLET PO ×2 (07:40→22:20)
[2022-06-20] MEDS: amLODIPine Besylate 10 MG TABLET NG-TUBE (07:40)
[2022-06-20] MEDS: Divalproex Sodium ER 500 MG TAB.ER.24H PO (07:40)
--- NOTE | 2022-06-20 08:19 | P.PNGS_ITS ---
Subjective Subjective Date of Service: 06/21/22 Interval history: feels better more alert and comfortable today denies recalling flatus NGT in place - not much output overnight Physical Exam Vital Signs: Vital Signs: Last Vital Signs Temp 97.0 F 06/20/22 07:39 Pulse 76 06/20/22 07:39 Resp 18 06/20/22 07:39 BP 126/78 06/20/22 07:39 Pulse Ox 97 06/20/22 07:39 O2 Del Method 06/20/22 07:39 O2 Flow Rate 2 06/20/22 07:39 BMI result Body Mass Index 33.9 Const: General: comfortable and no acute distress Resp: Effort & Inspection: normal respiratory effort Cardio: Rate: regular rate GI: Other: distended and protruberant but soft Palpation (GI): not firm, nontender and no guarding Objective Data Active Medications Acetaminophen/Butalbital/Caffeine (Butalb/Acetamin/Caff 50/325/40 Tablet) 1 tab PO Q4H PRN PRN Reason: headache Albuterol Sulfate (Albuterol Sulfate 90 Mcg 8 Gm Inhaler) 2 puff INHALE Q6H PRN PRN Reason: shortness of breath or wheezing Amlodipine Besylate (Amlodipine Besylate 10 Mg Tablet) 10 mg NG-TUBE DAILY [facility]; Protocol Last Admin: 06/20/22 07:40 Dose: 10 mg Documented By: BERTA Albuterol Sulfate 2.5 mg/ (Ipratropium [place] 0.5 mg) 0 mg INHALE RQ4H PRN PRN Reason: Shortness of Breath/Wheezing Divalproex Sodium (Divalproex Sodium Er 500 Mg Tab.Er.24h) 500 mg PO DAILY [facility] Last Admin: 06/20/22 07:40 Dose: 500 mg Documented By: BERTA Docusate Sodium (Docusate Sodium 100 Mg Capsule) 100 mg PO BID [facility] Last Admin: 06/20/22 07:40 Dose: 100 mg Documented By: BERTA Enoxaparin Sodium (Enoxaparin Sodium 40 Mg/0.4 Ml Syringe) 40 mg SUBCUT Q24H [facility] Last Admin: 06/19/22 14:39 Dose: 40 mg Documented By: BERTA Famotidine (Famotidine 20 Mg Tablet) 20 mg PO BID [facility] Last Admin: 06/20/22 07:40 Dose: 20 mg Documented By: BERTA Fluticasone Propionate (Fluticasone Propionate Nasal 16 Gm [place]) 1 spray NOSTRIL-B BID PRN PRN Reason: Allergy Symptoms Fluticasone/Vilanterol (Fluticasone/Vilanterol 100/25 Blst.W.Dev) 1 puff INHALE RDAILY [facility] Last Admin: 06/20/22 07:31 Dose: 1 puff Documented By: PACO Hydromorphone HCl (Hydromorphone Hcl 0.5 Mg/0.5 Ml Syringe) 0.5 mg IVPUSH Q3H PRN; Protocol PRN Reason: Pain, Severe (Pain Scale 7-10) Last Admin: 06/20/22 03:19 Dose: 0.5 mg Documented By: ELLEN Acetaminophen (Ofirmev) 1,000 mg in 100 mls @ 400 mls/hr IV Q6H [facility] Last Infusion: 06/20/22 03:45 Dose: 0 mls/hr Documented By: ELLEN Potassium Chloride/Sodium Chloride (Kcl 20 Meq In 0.9 % Sodium Chl) 20 meq in 1,000 mls @ 100 mls/hr IVCONT .Q10H [facility] Last Admin: 06/20/22 03:23 Dose: 100 mls/hr Documented By: ELLEN Latanoprost (Latanoprost 0.005 % Ophth Saira 2.5 Ml Drops) 1 drop EYE-BOTH BEDTIME [facility] Last Admin: 06/19/22 19:47 Dose: 1 drop Documented By: ELLEN Lorazepam (Lorazepam 1 Mg Tablet) 1 mg PO BID PRN PRN Reason: Anxiety Last Admin: 06/19/22 19:41 Dose: 1 mg Documented By: ELLEN Naloxone HCl (Naloxone Hcl Nasal 4 Mg [place]) 4 mg NOSTRILALT ONCE PRN PRN Reason: Opiate Reversal Ondansetron HCl (Ondansetron Hcl 4 Mg/2 Ml Vial) 4 mg IVPUSH Q8H PRN PRN Reason: Nausea and Vomiting Last Admin: 06/14/22 23:14 Dose: 4 mg Documented By: WALLY Oxycodone HCl (Oxycodone Hcl Immed Release 5 Mg Tablet) 5 mg PO Q4H PRN PRN Reason: Pain, Moderate (Pain Scale 4-6 Oxycodone HCl (Oxycodone Hcl Immed Release 5 Mg Tablet) 10 mg PO Q4H PRN PRN Reason: Pain, Severe (Pain Scale 7-10) Last Admin: 06/18/22 12:07 Dose: 10 mg Documented By: BINU Pharmacy Consult (Consult Rx Perform Med Rec) 1 each MISCELLANE ONCE PRN PRN Reason: Consult order Sodium Chloride (0.9 % Sodium Chloride Flush 3 Ml Syringe) 3 ml IVFLUSH QSHIFT [facility] Last Admin: 06/20/22 07:40 Dose: Not Given Documented By: BERTA Non-Admin Reason: IV Running Venlafaxine HCl (Venlafaxine Hcl Er 37.5 Mg Cap.Er.24h) 37.5 mg PO DAILY [facility] Last Admin: 06/20/22 07:39 Dose: 37.5 mg Documented By: BERTA Venlafaxine HCl (Venlafaxine Hcl Er 150 Mg Cap.Er.24h) 150 mg PO DAILY [facility] Last Admin: 06/20/22 07:39 Dose: 150 mg Documented By: BERTA Labs 06/19/22 08:39 06/20/22 05:46 Labs: Laboratory Results - last 24 hr 06/19/22 06/19/22 06/19/22 08:39 08:39 08:39 MCV 91.5 MCH 31.4 MCHC 34.3 RDW 14.0 Plt Count 397 D MPV 10.0 Absolute Nucleated RBC 0.000 Nucleated RBC % (auto) 0.0 Anion Gap 15 Estim Creat Clear Calc 75.4 Estimated GFR > 60 Random Glucose 111 Calcium 8.9 Magnesium 1.9 Troponin I High Sens 5.2 06/20/22 05:46 MCV MCH MCHC RDW Plt Count MPV Absolute Nucleated RBC Nucleated RBC % (auto) Anion Gap Estim Creat Clear Calc 76.8 Estimated GFR > 60 Random Glucose Calcium Magnesium Troponin I High Sens Procedures Date of Service Date of Service: 06/20/22 Progress Note: A&P Assessment and plan (1) Small bowel obstruction: Status: Acute Assessment and Plan: ffup CT yesterday c/w PSBO keep NGT in looks better than yesterday PICC line, TPN will consider SB series OOB to chair hemodynamically stable Time Spent With Patient Time: Total time managing care of this patient today ____ minutes. Quality Stroke Does the patient have a stroke diagnosis?: No VTE Prior VTE?: No VTE Risk Level:: Surgical - low VTE Device Contraindication: N/A - Device Ordered VTE Drug Contraindication: N/A - Med Ordered
--- NOTE | 2022-06-20 09:21 | MHC.CLN ---
Addendum entered by Kari Arreola, DAMARIS 06/20/22 11:02: IF PICC LINE NOT PLACED. RECOMMEND START PPN D10AA4.25 AT 41.67 ML PER HOUR. REPLETE LYTES NEEDED. DAY 2 ADVANCE TO D10AA4.25 AT 65 ML PER HOUR. REPLETE LYTES NEEDED. CHECK TRIGLYCERIDES. RD TO EVALUATE 06/22 FOR PPN FOR PN MAX GOAL RATE. Original Note: NUTRITION/TPN CONSULT FOR TPN RECOMMENDATION. PICC ORDERED 06/20. CURRENTLY NPO WITH NG TUBE DRAINING. PATIENT WITH SBO. ESTIMATED NUTRITION NEEDS BASED ON IBW=80.9 KG. RECOMMEND TPN D15AA5: DAY 1 (06/20/22): D15AA5 AT 40 ML PER HOUR. PROVIDES 682 KCALS, 48 G PROTEIN. REPLETE LYTES NEEDED. DAY 2 (06/21/22): D15AA5 AT 60 ML PER HOUR. PROVIDES 1022 KCALS, 72 G PROTEIN. REPLETE LYTES NEEDED. CHECK TRIGLYCERIDES. DAY 3 (06/22/22) MAX GOAL RATE D15AA5 AT 83.33 ML PER HOUR. ADD LIPIDS 25 ML PER HOUR OF 20% LIPIDS. PROVIDES: 2020 KCALS (25 KCALS/KG IBW); 100 G PROTEIN (1.24 G/KG IBW) REPLETE LYTES NEEDED. FOLLOW FOR TPN TOLERANCE, LYTES, AND GI STATUS.
[2022-06-20 10:04] LABS: MANUAL DIFF FLAG NO
[2022-06-20 10:05] LABS: Basophils Percent Auto 0.3 % (0-2); Eosinophils Absolute Auto 0.2 X10*3/uL (0.0-0.4); Eosinophils Percent Auto 1.2 % (0-4); Hematocrit 36.6 % (42.0-52.0); Hemoglobin 12.3 g/dl (14.0-18.0); Imm Gran Abs Auto 0.11 X10*3/uL (0.00-0.03); Imm Gran Pct Auto 0.8 % (0.0-0.4); Lymphocytes Absolute Auto 2.6 X10*3/uL (1.2-4.9); Lymphocytes Percent Auto 17.9 % (20-40); Mean Corpuscular HGB Conc 33.6 g/dl (31.0-36.0); Mean Corpuscular Hemoglobin 30.9 pg (27.0-33.0); Mean Platelet Volume 9.8 fL (9.4-12.4); Monocytes Absolute Auto 1.4 X10*3/uL (0.1-1.2); Monocytes Percent Auto 9.3 % (2-11); Neutrophils Absolute Auto 10.2 x10*3/uL (2.0-8.3); Neutrophils Percent Auto 70.5 % (45-73); Platelet Count 390 X10*3/uL (160-400); Red Blood Count 3.98 X10*6/uL (4.60-5.80); Red Cell Distribution Width 14.3 % (11.0-16.0); White Blood Count 14.4 X10*3/uL (4.8-10.8)
[2022-06-20 10:11] LABS: INTERNATIONAL NORM RATIO 1.1 (0.9-1.1); Prothrombin Time 12.9 SEC (10.0-13.1)
[2022-06-20] MEDS: ondansetron HCL 4 MG/2 ML VIAL IVPUSH (10:21)
[2022-06-20 10:27] LABS: Anion Gap 14 (12-20); Carbon Dioxide 30 mmol/L (22-29); Chloride 105 mmol/L (96-108); Magnesium 1.9 mg/dL (1.6-2.6); Phosphorus 3.7 mg/dL (2.7-4.5); Potassium 3.8 mmol/L (3.3-5.1); Sodium 145 mmol/L (135-145); Triglycerides 91 mg/dL
--- NOTE | 2022-06-20 12:45 | P.PICC_ITS ---
PICC Line Insertion PICC INSERTION Diagnosis: [SMALL BOWEL OBSTRUCTION] Indication: [NEEDS TPN] Pertinent Labs: REVIEWED] Technique: Following informed consent including risks, benefits and alternatives and using sterile technique including cap and mask, sterile gown, glove and drape, the [RIGHT] arm was prepped and draped in the usual sterile fashion of full barrier technique with CHG. Following completion of [place] Protocol the skin and soft tissues were anesthetized with 1% Lidocaine plain. Using ultrasound guidance, [RIGHT BASILIC] vein access was obtained ON FIRST ATTEMPT. Over an 0.018 wire through peel-away sheath, a [5FR TRIPLE LUMEN POWER SOLO-PASV ] PICC line was positioned. Catheter length is [42CM] internal length, [2CM] external length, for a total trimmed length of [44CM]. The procedure was performed in [RM. 272]. Tip verification was performed by Madalyn Delgado with Sherlock 3CG. Tip located in SVC. Ultrasound was used to document vein patency and for needle entry. A formal ultrasound picture and cardiac rhythm strip was recorded. [employer] has released the line for use and it is currently dressed with a StatLock, Tegaderm, and CHG disc. Verification has been performed for blood return and line patency. Arm Circumference: [29CM] Equipment: [[employer] POWER SOLO WITH SHERLOCK 3CG] Catheter Type: POWER PICC SOLO PASV] Lot #: [[id number]]
[2022-06-20 13:04] VITALS: BP 143/91; PULSE 76; RESP 18; TEMP 36.4; O2SAT 96
[2022-06-20] MEDS: LORazepam 1 MG TABLET PO ×2 (13:09→22:20)
--- NOTE | 2022-06-20 14:08 | PM.EVENT ---
Event Note Date of Service: 06/20/22 Event Note: Remains smaller than yesterday Answers questions well Denies abdominal pain Denies flatus Abdomen soft although distended and protuberant PICC line insertion just done TPN ordered For Gastrografin study tomorrow Exam remains benign Time Spent With Patient Time: Total time managing care of this patient today ____ minutes.
[2022-06-20] MEDS: Enoxaparin Sodium 40 MG/0.4 ML SYRINGE SUBCUT (14:11)
[2022-06-20 15:15] VITALS: BP 115/76; PULSE 82; RESP 18; TEMP 36.2; O2SAT 98
[2022-06-20] MEDS: 0.9 % Sodium Chloride Flush 10 ML SYRINGE 5 ML IVFLUSH ×2 (16:00→22:34)
[2022-06-20 16:18] LABS: Glucose, Whole Blood 85 mg/dL (60-115)
--- NOTE | 2022-06-20 16:28 | MHC.CM.PN ---
EMR REVIEWED, PT W/SBO, NG TUBE REMAINS IN PLACED. PICC LINE INSERTED AND TPN ORDERED, PT STILL AWAITING RETURN OF BOWEL FUNCTION, CM WILL CONT TO FOLLOW D/C NEEDS, [facility] FOLLOWING. CM WILL CONT TO FOLLOW D/C NEEDS.
--- NOTE | 2022-06-20 18:35 | PC.NURSE ---
Pt ambulated at 1700. Burped loudly after standing. Upon being returned to bed and reattached to int suction via NG tube, 1400ml of brown liquid drained into cannister.
[2022-06-20 19:06] VITALS: BP 149/82; PULSE 81; RESP 18; TEMP 36; O2SAT 99
[2022-06-20 21:13] LABS: Glucose, Whole Blood 119 mg/dL (60-115)
[2022-06-20] MEDS: 0.9 % Sodium Chloride Flush 3 ML SYRINGE IVFLUSH (22:20)
[2022-06-20] MEDS: Latanoprost 0.005 % Ophth Sol 2.5 ML DROPS 1 DROP EYE-BOTH (22:21)
[2022-06-21] VITALS (7 sets, daily range): BP systolic 111–134; BP diastolic 64–85; PULSE 74–89; RESP 16–18; TEMP 36.1–36.8; O2SAT 95–100
[2022-06-21] MEDS: Acetaminophen 1,000 MG/100 ML PIGGYBACK 400 MG IV ×3 (03:45→21:40)
[2022-06-21 07:41] LABS: Anion Gap 15 (12-20); Blood Urea Nitrogen 17 mg/dL (9-16); Calcium 8.1 mg/dL (8.4-10.2); Carbon Dioxide 29 mmol/L (22-29); Chloride 105 mmol/L (96-108); Creatinine Clr Calc Pharmacy 75.4; Estimated Glomerular Filt Rate > 60; Magnesium 1.9 mg/dL (1.6-2.6); Phosphorus 3.8 mg/dL (2.7-4.5); Potassium 3.6 mmol/L (3.3-5.1); Sodium 145 mmol/L (135-145)
[2022-06-21 07:56] LABS: Glucose, Whole Blood 117 mg/dL (60-115)
[2022-06-21] MEDS: Fluticasone/Vilanterol 100/25 BLST.W.DEV 1 PUFF INHALE (08:01)
--- NOTE | 2022-06-21 08:15 | PM.PNGS ---
Subjective Subjective Date of Service: 06/21/22 Interval history: denies abdl pain does not recall flatus no vomitting says he is comfortable today Physical Exam Vital Signs: Vital Signs: Last Vital Signs Temp 97.5 F 06/21/22 07:29 Pulse 89 06/21/22 08:01 Resp 16 06/21/22 08:01 BP 134/85 06/21/22 07:29 Pulse Ox 96 06/21/22 07:29 O2 Del Method 06/21/22 07:29 O2 Flow Rate 2 06/21/22 07:29 BMI result Body Mass Index 33.9 Const: General: comfortable and no acute distress Resp: Effort & Inspection: normal respiratory effort Cardio: Rate: regular rate GI: Other: protruberant and round, but much softer Palpation (GI): Soft to palpation, nontender and no guarding Objective Data Active Medications Acetaminophen/Butalbital/Caffeine (Butalb/Acetamin/Caff 50/325/40 Tablet) 1 tab PO Q4H PRN PRN Reason: headache Albuterol Sulfate (Albuterol Sulfate 90 Mcg 8 Gm Inhaler) 2 puff INHALE Q6H PRN PRN Reason: shortness of breath or wheezing Amlodipine Besylate (Amlodipine Besylate 10 Mg Tablet) 10 mg NG-TUBE DAILY [facility]; Protocol Last Admin: 06/20/22 07:40 Dose: 10 mg Documented By: BERTA Divalproex Sodium (Divalproex Sodium Er 500 Mg Tab.Er.24h) 500 mg PO DAILY [facility] Last Admin: 06/20/22 07:40 Dose: 500 mg Documented By: BERTA Docusate Sodium (Docusate Sodium 100 Mg Capsule) 100 mg PO BID [facility] Last Admin: 06/20/22 22:20 Dose: 100 mg Documented By: ROSENDO Enoxaparin Sodium (Enoxaparin Sodium 40 Mg/0.4 Ml Syringe) 40 mg SUBCUT Q24H [facility] Last Admin: 06/20/22 14:11 Dose: 40 mg Documented By: BERTA Famotidine (Famotidine 20 Mg Tablet) 20 mg PO BID [facility] Last Admin: 06/20/22 22:20 Dose: 20 mg Documented By: ROSENDO Fluticasone Propionate (Fluticasone Propionate Nasal 16 Gm [place]) 1 spray NOSTRIL-B BID PRN PRN Reason: Allergy Symptoms Fluticasone/Vilanterol (Fluticasone/Vilanterol 100/25 Blst.W.Dev) 1 puff INHALE RDAILY [facility] Last Admin: 06/21/22 08:01 Dose: 1 puff Documented By: PACO Hydromorphone HCl (Hydromorphone Hcl 0.5 Mg/0.5 Ml Syringe) 0.5 mg IVPUSH Q3H PRN; Protocol PRN Reason: Pain, Severe (Pain Scale 7-10) Last Admin: 06/20/22 12:58 Dose: 0.5 mg Documented By: BERTA Acetaminophen (Ofirmev) 1,000 mg in 100 mls @ 400 mls/hr IV Q6H [facility] Last Infusion: 06/21/22 04:45 Dose: 0 mls/hr Documented By: ROSENDO Multivitamins 10 ml/ Trace Metals 1 ml/ Amino Acids/Electrolytes 960 mls @ 40 mls/hr IV DAILY@1800 [facility] Stop: 06/21/22 17:59 Last Admin: 06/20/22 18:24 Dose: 40 mls/hr Documented By: MARNI Latanoprost (Latanoprost 0.005 % Ophth Saira 2.5 Ml Drops) 1 drop EYE-BOTH BEDTIME [facility] Last Admin: 06/20/22 22:21 Dose: 1 drop Documented By: ROSENDO Lorazepam (Lorazepam 1 Mg Tablet) 1 mg PO BID PRN PRN Reason: Anxiety Last Admin: 06/20/22 22:20 Dose: 1 mg Documented By: ROSENDO Naloxone HCl (Naloxone Hcl Nasal 4 Mg [place]) 4 mg NOSTRILALT ONCE PRN PRN Reason: Opiate Reversal Ondansetron HCl (Ondansetron Hcl 4 Mg/2 Ml Vial) 4 mg IVPUSH Q8H PRN PRN Reason: Nausea and Vomiting Last Admin: 06/20/22 10:21 Dose: 4 mg Documented By: BERTA Oxycodone HCl (Oxycodone Hcl Immed Release 5 Mg Tablet) 5 mg PO Q4H PRN PRN Reason: Pain, Moderate (Pain Scale 4-6 Oxycodone HCl (Oxycodone Hcl Immed Release 5 Mg Tablet) 10 mg PO Q4H PRN PRN Reason: Pain, Severe (Pain Scale 7-10) Last Admin: 06/18/22 12:07 Dose: 10 mg Documented By: BINU Pharmacy Consult (Consult Rx Perform Med Rec) 1 each MISCELLANE ONCE PRN PRN Reason: Consult order Sodium Chloride (0.9 % Sodium Chloride Flush 3 Ml Syringe) 3 ml IVFLUSH QSHIFT [facility] Last Admin: 06/20/22 22:20 Dose: 3 ml Documented By: ROSENDO Sodium Chloride (0.9 % Sodium Chloride Flush 10 Ml Syringe) 5 ml IVFLUSH TID [facility] Last Admin: 06/20/22 22:34 Dose: 5 ml Documented By: ROSENDO Venlafaxine HCl (Venlafaxine Hcl Er 37.5 Mg Cap.Er.24h) 37.5 mg PO DAILY [facility] Last Admin: 06/20/22 07:39 Dose: 37.5 mg Documented By: BERTA Venlafaxine HCl (Venlafaxine Hcl Er 150 Mg Cap.Er.24h) 150 mg PO DAILY [facility] Last Admin: 06/20/22 07:39 Dose: 150 mg Documented By: BERTA Labs 06/20/22 09:50 06/21/22 05:47 Labs: Laboratory Results - last 24 hr 06/20/22 06/20/22 06/20/22 09:50 09:50 09:50 MCV 92.0 MCH 30.9 MCHC 33.6 RDW 14.3 Plt Count 390 MPV 9.8 Immature Gran % (Auto) 0.8 H Neut % (Auto) 70.5 Lymph % (Auto) 17.9 L [place] % (Auto) 9.3 Eos % (Auto) 1.2 Baso % (Auto) 0.3 Lymph # (Auto) 2.6 [place] # (Auto) 1.4 H Eos # (Auto) 0.2 Baso # (Auto) 0.0 Abs Immat Gran (auto) 0.11 H Absolute Neuts (auto) 10.2 H Absolute Nucleated RBC 0.000 Nucleated RBC % (auto) 0.0 PT 12.9 INR 1.1 Anion Gap 14 Estim Creat Clear Calc Estimated GFR POC Glucose Calcium 8.0 L D Phosphorus 3.7 Magnesium 1.9 Triglycerides 91 06/20/22 06/20/22 06/21/22 16:13 21:07 05:47 MCV MCH MCHC RDW Plt Count MPV Immature Gran % (Auto) Neut % (Auto) Lymph % (Auto) [place] % (Auto) Eos % (Auto) Baso % (Auto) Lymph # (Auto) [place] # (Auto) Eos # (Auto) Baso # (Auto) Abs Immat Gran (auto) Absolute Neuts (auto) Absolute Nucleated RBC Nucleated RBC % (auto) PT INR Anion Gap 15 Estim Creat Clear Calc 75.4 Estimated GFR > 60 POC Glucose 85 119 H Calcium 8.1 L Phosphorus 3.8 Magnesium 1.9 Triglycerides 06/21/22 07:28 MCV MCH MCHC RDW Plt Count MPV Immature Gran % (Auto) Neut % (Auto) Lymph % (Auto) [place] % (Auto) Eos % (Auto) Baso % (Auto) Lymph # (Auto) [place] # (Auto) Eos # (Auto) Baso # (Auto) Abs Immat Gran (auto) Absolute Neuts (auto) Absolute Nucleated RBC Nucleated RBC % (auto) PT INR Anion Gap Estim Creat Clear Calc Estimated GFR POC Glucose 117 H Calcium Phosphorus Magnesium Triglycerides Procedures Date of Service Date of Service: 06/21/22 Progress Note: A&P Assessment and plan (1) S/P exploratory laparotomy: Status: Acute Assessment and Plan: with SBO postop TPN started NGT output not much overnight keep NGT in SBS with gastrograffin this AM labs ok OOB to chair more alert and comfortable this morning abd soft and benign, although protruberant Time Spent With Patient Time: Total time managing care of this patient today ____ minutes. Quality Stroke Does the patient have a stroke diagnosis?: No VTE Prior VTE?: No VTE Risk Level:: Surgical - low VTE Device Contraindication: N/A - Device Ordered VTE Drug Contraindication: N/A - Med Ordered
--- NOTE | 2022-06-21 08:17 | P.PNGS_ITS ---
Subjective Subjective Date of Service: 06/21/22 <Deedee Long PA-C - Last Filed: 06/21/22 08:23> 06/21/22 <Francisco Guerrero MD - Last Filed: 06/21/22 14:53> Interval history: Continues to feel lousy and not much improved. Denies flatus. States he ambulated in halls twice yesterday. <Deedee Long PA-C - Last Filed: 06/21/22 08:23> Physical Exam Vital Signs: Vital Signs: Last Vital Signs Temp 97.5 F 06/21/22 07:29 Pulse 89 06/21/22 08:01 Resp 16 06/21/22 08:01 BP 134/85 06/21/22 07:29 Pulse Ox 96 06/21/22 07:29 O2 Del Method 06/21/22 07:29 O2 Flow Rate 2 06/21/22 07:29 BMI result Body Mass Index 33.9 <Deedee Long PA-C - Last Filed: 06/21/22 08:23> Const: General: comfortable, no acute distress and alert <Deedee Long PA-C - Last Filed: 06/21/22 08:23> Orientation/consciousness: patient oriented x3 <Deedee Long PA-C - Last Filed: 06/21/22 08:23> Resp: Effort & Inspection: normal respiratory effort <Deedee Long PA-C - Last Filed: 06/21/22 08:23> Cardio: Rate: regular rate <Deedee Long PA-C - Last Filed: 06/21/22 08:23> GI: Inspection: Yes distended (soft, degree of distention unchanged) and Yes incision (clean) <Deedee Long PA-C - Last Filed: 06/21/22 08:23> Palpation (GI): Soft to palpation, nontender, no guarding and not rigid <ROYAL Guzman Last Filed: 06/21/22 08:23> Percussion: Yes tympanic to percussion <Deedee Long PA-C - Last Filed: 06/21/22 08:23> Skin: General skin exam: no rashes or lesions noted <Deedee Long PA-C - Last Filed: 06/21/22 08:23> Neuro: General: patient oriented x3 and moves all extremities <Deedee Long PA-C - Last Filed: 06/21/22 08:23> Objective Data Active Medications Acetaminophen/Butalbital/Caffeine (Butalb/Acetamin/Caff 50/325/40 Tablet) 1 tab PO Q4H PRN PRN Reason: headache Albuterol Sulfate (Albuterol Sulfate 90 Mcg 8 Gm Inhaler) 2 puff INHALE Q6H PRN PRN Reason: shortness of breath or wheezing Amlodipine Besylate (Amlodipine Besylate 10 Mg Tablet) 10 mg NG-TUBE DAILY [facility]; Protocol Last Admin: 06/20/22 07:40 Dose: 10 mg Documented By: BERTA Divalproex Sodium (Divalproex Sodium Er 500 Mg Tab.Er.24h) 500 mg PO DAILY [facility] Last Admin: 06/20/22 07:40 Dose: 500 mg Documented By: BERTA Docusate Sodium (Docusate Sodium 100 Mg Capsule) 100 mg PO BID [facility] Last Admin: 06/20/22 22:20 Dose: 100 mg Documented By: ROSENDO Enoxaparin Sodium (Enoxaparin Sodium 40 Mg/0.4 Ml Syringe) 40 mg SUBCUT Q24H [facility] Last Admin: 06/20/22 14:11 Dose: 40 mg Documented By: BERTA Famotidine (Famotidine 20 Mg Tablet) 20 mg PO BID [facility] Last Admin: 06/20/22 22:20 Dose: 20 mg Documented By: ROSENDO Fluticasone Propionate (Fluticasone Propionate Nasal 16 Gm [place]) 1 spray NOSTRIL-B BID PRN PRN Reason: Allergy Symptoms Fluticasone/Vilanterol (Fluticasone/Vilanterol 100/25 Blst.W.Dev) 1 puff INHALE RDAILY [facility] Last Admin: 06/21/22 08:01 Dose: 1 puff Documented By: PACO Hydromorphone HCl (Hydromorphone Hcl 0.5 Mg/0.5 Ml Syringe) 0.5 mg IVPUSH Q3H PRN; Protocol PRN Reason: Pain, Severe (Pain Scale 7-10) Last Admin: 06/20/22 12:58 Dose: 0.5 mg Documented By: BERTA Acetaminophen (Ofirmev) 1,000 mg in 100 mls @ 400 mls/hr IV Q6H [facility] Last Infusion: 06/21/22 04:45 Dose: 0 mls/hr Documented By: ROSENDO Multivitamins 10 ml/ Trace Metals 1 ml/ Amino Acids/Electrolytes 960 mls @ 40 mls/hr IV DAILY@1800 [facility] Stop: 06/21/22 17:59 Last Admin: 06/20/22 18:24 Dose: 40 mls/hr Documented By: MARNI Latanoprost (Latanoprost 0.005 % Ophth Saira 2.5 Ml Drops) 1 drop EYE-BOTH BEDTIME [facility] Last Admin: 06/20/22 22:21 Dose: 1 drop Documented By: ROSENDO Lorazepam (Lorazepam 1 Mg Tablet) 1 mg PO BID PRN PRN Reason: Anxiety Last Admin: 06/20/22 22:20 Dose: 1 mg Documented By: ROSENDO Naloxone HCl (Naloxone Hcl Nasal 4 Mg [place]) 4 mg NOSTRILALT ONCE PRN PRN Reason: Opiate Reversal Ondansetron HCl (Ondansetron Hcl 4 Mg/2 Ml Vial) 4 mg IVPUSH Q8H PRN PRN Reason: Nausea and Vomiting Last Admin: 06/20/22 10:21 Dose: 4 mg Documented By: BERTA Oxycodone HCl (Oxycodone Hcl Immed Release 5 Mg Tablet) 5 mg PO Q4H PRN PRN Reason: Pain, Moderate (Pain Scale 4-6 Oxycodone HCl (Oxycodone Hcl Immed Release 5 Mg Tablet) 10 mg PO Q4H PRN PRN Reason: Pain, Severe (Pain Scale 7-10) Last Admin: 06/18/22 12:07 Dose: 10 mg Documented By: BINU Pharmacy Consult (Consult Rx Perform Med Rec) 1 each MISCELLANE ONCE PRN PRN Reason: Consult order Sodium Chloride (0.9 % Sodium Chloride Flush 3 Ml Syringe) 3 ml IVFLUSH QSHIFT [facility] Last Admin: 06/20/22 22:20 Dose: 3 ml Documented By: ROSENDO Sodium Chloride (0.9 % Sodium Chloride Flush 10 Ml Syringe) 5 ml IVFLUSH TID [facility] Last Admin: 06/20/22 22:34 Dose: 5 ml Documented By: ROSENDO Venlafaxine HCl (Venlafaxine Hcl Er 37.5 Mg Cap.Er.24h) 37.5 mg PO DAILY [facility] Last Admin: 06/20/22 07:39 Dose: 37.5 mg Documented By: BERTA Venlafaxine HCl (Venlafaxine Hcl Er 150 Mg Cap.Er.24h) 150 mg PO DAILY [facility] Last Admin: 06/20/22 07:39 Dose: 150 mg Documented By: BERTA <Deedee Long PA-C - Last Filed: 06/21/22 08:23> Labs CBC & Chem 7: 06/20/22 09:50 06/21/22 05:47 <Deedee Long PA-C - Last Filed: 06/21/22 08:23> Labs: Laboratory Results - last 24 hr 06/20/22 06/20/22 06/20/22 09:50 09:50 09:50 MCV 92.0 MCH 30.9 MCHC 33.6 RDW 14.3 Plt Count 390 MPV 9.8 Immature Gran % (Auto) 0.8 H Neut % (Auto) 70.5 Lymph % (Auto) 17.9 L [place] % (Auto) 9.3 Eos % (Auto) 1.2 Baso % (Auto) 0.3 Lymph # (Auto) 2.6 [place] # (Auto) 1.4 H Eos # (Auto) 0.2 Baso # (Auto) 0.0 Abs Immat Gran (auto) 0.11 H Absolute Neuts (auto) 10.2 H Absolute Nucleated RBC 0.000 Nucleated RBC % (auto) 0.0 PT 12.9 INR 1.1 Anion Gap 14 Estim Creat Clear Calc Estimated GFR POC Glucose Calcium 8.0 L D Phosphorus 3.7 Magnesium 1.9 Triglycerides 91 06/20/22 06/20/22 06/21/22 16:13 21:07 05:47 MCV MCH MCHC RDW Plt Count MPV Immature Gran % (Auto) Neut % (Auto) Lymph % (Auto) [place] % (Auto) Eos % (Auto) Baso % (Auto) Lymph # (Auto) [place] # (Auto) Eos # (Auto) Baso # (Auto) Abs Immat Gran (auto) Absolute Neuts (auto) Absolute Nucleated RBC Nucleated RBC % (auto) PT INR Anion Gap 15 Estim Creat Clear Calc 75.4 Estimated GFR > 60 POC Glucose 85 119 H Calcium 8.1 L Phosphorus 3.8 Magnesium 1.9 Triglycerides 06/21/22 07:28 MCV MCH MCHC RDW Plt Count MPV Immature Gran % (Auto) Neut % (Auto) Lymph % (Auto) [place] % (Auto) Eos % (Auto) Baso % (Auto) Lymph # (Auto) [place] # (Auto) Eos # (Auto) Baso # (Auto) Abs Immat Gran (auto) Absolute Neuts (auto) Absolute Nucleated RBC Nucleated RBC % (auto) PT INR Anion Gap Estim Creat Clear Calc Estimated GFR POC Glucose 117 H Calcium Phosphorus Magnesium Triglycerides <ROYAL Guzman Last Filed: 06/21/22 08:23> Procedures Date of Service Date of Service: 06/21/22 <ROYAL Guzman Last Filed: 06/21/22 08:23> Progress Note: A&P Assessment and plan (1) S/P exploratory laparotomy: Status: Acute <ROYAL Guzman Last Filed: 06/21/22 08:23> (2) Small bowel obstruction: Status: Acute <ROYAL Guzman Last Filed: 06/21/22 08:23> Assessment and Plan: 76 year old male admitted with SBO that required laparotomy, [facility] on 06/10/22. He had a slow recovery course and was doing well over the weekend and tolerating solid food but developed recurrent SBO at same point on CT scan and required reinsertion of NGT. PICC placed yesterday, TPN initiated. Overall unchanged- abd remains softer but same degree of distention. NGT continues with high bilious output. Plan for SB follow through with gastrografin today. Cont NGT decompression, NPO, TPN. Encouraged OOB/ambulation and increase in activity. <ROYAL Guzman Last Filed: 06/21/22 08:23> Time Spent With Patient Time: Total time managing care of this patient today ____ minutes. <Deedee Long PA-C - Last Filed: 06/21/22 08:23> Quality Stroke Does the patient have a stroke diagnosis?: No <Deedee Long PA-C - Last Filed: 06/21/22 08:23> VTE Prior VTE?: No <Deedee Long PA-C - Last Filed: 06/21/22 08:23> VTE Risk Level:: Surgical - low <Deedee Long PA-C - Last Filed: 06/21/22 08:23> VTE Device Contraindication: N/A - Device Ordered <Deedee Long PA-C - Last Filed: 06/21/22 08:23> VTE Drug Contraindication: N/A - Med Ordered <Deedee Long PA-C - Last Filed: 06/21/22 08:23>
--- NOTE | 2022-06-21 08:21 | PC.NURSE ---
Transport here to get patient down to radiology at this time via stretcher
[2022-06-21] MEDS: 0.9 % Sodium Chloride Flush 10 ML SYRINGE 5 ML IVFLUSH ×3 (10:38→20:54)
[2022-06-21] MEDS: Docusate Sodium 100 MG CAPSULE PO ×2 (10:38→20:53)
[2022-06-21] MEDS: 0.9 % Sodium Chloride Flush 3 ML SYRINGE IVFLUSH ×2 (10:38→16:44)
[2022-06-21] MEDS: Venlafaxine HCl ER 37.5 MG CAP.ER.24H PO (10:38)
[2022-06-21] MEDS: Venlafaxine HCl ER 150 MG CAP.ER.24H PO (10:38)
[2022-06-21] MEDS: Divalproex Sodium ER 500 MG TAB.ER.24H PO (10:38)
[2022-06-21] MEDS: LORazepam 1 MG TABLET PO (10:38)
[2022-06-21] MEDS: amLODIPine Besylate 10 MG TABLET NG-TUBE (10:38)
[2022-06-21] MEDS: Famotidine 20 MG TABLET PO ×2 (10:38→20:53)
[2022-06-21] MEDS: HYDROmorphone HCl 0.5 MG/0.5 ML SYRINGE IVPUSH ×2 (10:39→22:26)
[2022-06-21] MEDS: ondansetron HCL 4 MG/2 ML VIAL IVPUSH (10:46)
[2022-06-21 11:26] LABS: Glucose, Whole Blood 132 mg/dL (60-115)
[2022-06-21 12:19] LABS: Albumin Level 3.3 g/dL (3.5-5.0)
[2022-06-21] MEDS: Throat Lozenge, Medicated LOZENGE 1 LOZENGE MUCOUS MEM (12:19)
[2022-06-21] MEDS: oxyCODONE HCl Immed Release 5 MG TABLET 10 MG PO (12:19)
[2022-06-21 12:21] LABS: Triglycerides 106 mg/dL
--- NOTE | 2022-06-21 13:25 | MHC.CLN ---
F/U REVIEWED LABS PT RECEIVED TPN [id number] AT 40 ML PER HOUR PROVIDED [phone] KCALS, 48 G PROTEIN RECOMMEND INCREASING [id number] AT 60 ML PER HOUR TO PROVIDE [phone] KCALS, 72 G PROTEIN NOTED TRIGLYCERIDES-WNL REPLETE LYTES NEEDED
[2022-06-21] MEDS: Enoxaparin Sodium 40 MG/0.4 ML SYRINGE SUBCUT (14:34)
--- NOTE | 2022-06-21 14:51 | PM.EVENT ---
Event Note Date of Service: 06/21/22 Event Note: Complained of back pain Otherwise looks comfortable right now Stable vital signs NG tube output still significant He however had been passing loose brown stools after ingestion of Gastrografin He did not finish Gastrografin oral contrast however Will repeat KUB to follow progression of contrast in the GI tract His abdomen is much softer now no guarding no rebound no significant tenderness Time Spent With Patient Time: Total time managing care of this patient today ____ minutes.
[2022-06-21 17:04] LABS: Glucose, Whole Blood 116 mg/dL (60-115)
[2022-06-21 20:09] LABS: Glucose, Whole Blood 113 mg/dL (60-115)
[2022-06-21] MEDS: Latanoprost 0.005 % Ophth Sol 2.5 ML DROPS 1 DROP EYE-BOTH (20:53)
[2022-06-22] VITALS (7 sets, daily range): BP systolic 120–150; BP diastolic 74–97; PULSE 74–91; RESP 15–20; TEMP 36–36.3; O2SAT 92–97; BMI 34.8
[2022-06-22] MEDS: HYDROmorphone HCl 0.5 MG/0.5 ML SYRINGE IVPUSH ×3 (01:29→12:47)
[2022-06-22] MEDS: Butalb/Acetamin/Caff 50/325/40 TABLET 1 TAB PO ×3 (02:50→20:52)
[2022-06-22] MEDS: Acetaminophen 1,000 MG/100 ML PIGGYBACK 400 MG IV ×4 (03:50→20:59)
[2022-06-22] MEDS: amLODIPine Besylate 10 MG TABLET NG-TUBE (07:02)
[2022-06-22] MEDS: Venlafaxine HCl ER 37.5 MG CAP.ER.24H PO (07:02)
[2022-06-22] MEDS: Famotidine 20 MG TABLET PO ×2 (07:02→20:16)
[2022-06-22] MEDS: Venlafaxine HCl ER 150 MG CAP.ER.24H PO (07:02)
[2022-06-22] MEDS: oxyCODONE HCl Immed Release 5 MG TABLET 10 MG PO (07:02)
[2022-06-22] MEDS: Docusate Sodium 100 MG CAPSULE PO ×2 (07:02→20:17)
[2022-06-22] MEDS: Divalproex Sodium ER 500 MG TAB.ER.24H PO (07:02)
[2022-06-22] MEDS: 0.9 % Sodium Chloride Flush 10 ML SYRINGE 5 ML IVFLUSH (07:06)
[2022-06-22 07:20] LABS: Anion Gap 13 (12-20); Blood Urea Nitrogen 18 mg/dL (9-16); Calcium 8.6 mg/dL (8.4-10.2); Carbon Dioxide 32 mmol/L (22-29); Chloride 104 mmol/L (96-108); Creatinine Clr Calc Pharmacy 74.7; Estimated Glomerular Filt Rate > 60; Glucose Random 126 mg/dL (60-115); Potassium 3.5 mmol/L (3.3-5.1); Sodium 145 mmol/L (135-145)
[2022-06-22 08:22] LABS: Glucose, Whole Blood 125 mg/dL (60-115)
--- NOTE | 2022-06-22 08:26 | P.PNGS_ITS ---
Subjective Subjective Date of Service: 06/22/22 <Deedee Long PA-C - Last Filed: 06/22/22 10:35> 06/22/22 <Francisco Guerrero MD - Last Filed: 06/22/22 15:02> Interval history: Reports he has not had any BM or flatus but RN reported yesterday he was incontinent of stool multiple times yesterday following SBFT. States frustration at continued hospitalization and nasogastric tube. Was not OOB yesterday. C/o abd pain, back pain, headaches. <Deedee Long PA-C - Last Filed: 06/22/22 10:35> Physical Exam Vital Signs: Vital Signs: Last Vital Signs Temp 96.8 F 06/22/22 08:00 Pulse 75 06/22/22 08:00 Resp 18 06/22/22 08:00 BP 149/92 H 06/22/22 08:00 Pulse Ox 97 06/22/22 08:00 O2 Del Method 06/22/22 08:00 O2 Flow Rate 2 06/22/22 08:00 BMI result Body Mass Index 33.9 <Deedee Long PA-C - Last Filed: 06/22/22 10:35> Const: General: comfortable, no acute distress and alert <ROYAL Guzman Last Filed: 06/22/22 10:35> HEENT: Other: NGT in place right nare <Deedee Long PA-C - Last Filed: 06/22/22 10:35> Resp: Effort & Inspection: normal respiratory effort <ROYAL Guzman Last Filed: 06/22/22 10:35> GI: Inspection: Yes distended and Yes incision (clean) <ROYAL Guzman Last Filed: 06/22/22 10:35> Palpation (GI): Soft to palpation and nontender <ROYAL Guzman Last Filed: 06/22/22 10:35> Percussion: Yes tympanic to percussion <ROYAL Guzman Last Luis Manuel ed: 06/22/22 10:35> Skin: General skin exam: no rashes or lesions noted <Deedee Long PA-C - Last Filed: 06/22/22 10:35> Objective Data Active Medications Acetaminophen/Butalbital/Caffeine (Butalb/Acetamin/Caff 50/325/40 Tablet) 1 tab PO Q4H PRN PRN Reason: headache Last Admin: 06/22/22 02:50 Dose: 1 tab Documented By: FELISA Albuterol Sulfate (Albuterol Sulfate 90 Mcg 8 Gm Inhaler) 2 puff INHALE Q6H PRN PRN Reason: shortness of breath or wheezing Amlodipine Besylate (Amlodipine Besylate 10 Mg Tablet) 10 mg NG-TUBE DAILY [facility]; Protocol Last Admin: 06/22/22 07:02 Dose: 10 mg Documented By: BINU Benzocaine (Throat Lozenge, Medicated Lozenge) 1 lozenge MUCOUS MEM Q2H PRN PRN Reason: Sore Throat Last Admin: 06/21/22 12:19 Dose: 1 lozenge Documented By: PRBAHJOT Divalproex Sodium (Divalproex Sodium Er 500 Mg Tab.Er.24h) 500 mg PO DAILY [facility] Last Admin: 06/22/22 07:02 Dose: 500 mg Documented By: BINU Docusate Sodium (Docusate Sodium 100 Mg Capsule) 100 mg PO BID [facility] Last Admin: 06/22/22 07:02 Dose: 100 mg Documented By: BINU Enoxaparin Sodium (Enoxaparin Sodium 40 Mg/0.4 Ml Syringe) 40 mg SUBCUT Q24H SC [facility] Last Admin: 06/21/22 14:34 Dose: 40 mg Documented By: PRABHJOT Famotidine (Famotidine 20 Mg Tablet) 20 mg PO BID [facility] Last Admin: 06/22/22 07:02 Dose: 20 mg Documented By: BINU Fluticasone Propionate (Fluticasone Propionate Nasal 16 Gm [place]) 1 spray NOSTRIL-B BID PRN PRN Reason: Allergy Symptoms Fluticasone/Vilanterol (Fluticasone/Vilanterol 100/25 Blst.W.Dev) 1 puff INHALE RDAILY [facility] Last Admin: 06/21/22 08:01 Dose: 1 puff Documented By: PACO Hydromorphone HCl (Hydromorphone Hcl 0.5 Mg/0.5 Ml Syringe) 0.5 mg IVPUSH Q3H PRN; Protocol PRN Reason: Pain, Severe (Pain Scale 7-10) Last Admin: 06/22/22 01:29 Dose: 0.5 mg Documented By: FELISA Acetaminophen (Ofirmev) 1,000 mg in 100 mls @ 400 mls/hr IV Q6H [facility] Last Infusion: 06/22/22 04:05 Dose: 0 mls/hr Documented By: FELISA Amino Acids/Electrolytes (Clinimix E 5%-15%) 1,440 mls @ 60 mls/hr IV DAILY@1800 [facility] Stop: 06/22/22 17:59 Last Admin: 06/21/22 18:46 Dose: 60 mls/hr Documented By: HELGA Latanoprost (Latanoprost 0.005 % Ophth Saira 2.5 Ml Drops) 1 drop EYE-BOTH BEDTIME [facility] Last Admin: 06/21/22 20:53 Dose: 1 drop Documented By: HELGA Lorazepam (Lorazepam 1 Mg Tablet) 1 mg PO BID PRN PRN Reason: Anxiety Last Admin: 06/21/22 10:38 Dose: 1 mg Documented By: PRABHJOT Naloxone HCl (Naloxone Hcl Nasal 4 Mg [place]) 4 mg NOSTRILALT ONCE PRN PRN Reason: Opiate Reversal Ondansetron HCl (Ondansetron Hcl 4 Mg/2 Ml Vial) 4 mg IVPUSH Q8H PRN PRN Reason: Nausea and Vomiting Last Admin: 06/21/22 10:46 Dose: 4 mg Documented By: PRABHJOT Oxycodone HCl (Oxycodone Hcl Immed Release 5 Mg Tablet) 5 mg PO Q4H PRN PRN Reason: Pain, Moderate (Pain Scale 4-6 Oxycodone HCl (Oxycodone Hcl Immed Release 5 Mg Tablet) 10 mg PO Q4H PRN PRN Reason: Pain, Severe (Pain Scale 7-10) Last Admin: 06/22/22 07:02 Dose: 10 mg Documented By: BINU Pharmacy Consult (Consult Rx Perform Med Rec) 1 each MISCELLANE ONCE PRN PRN Reason: Consult order Sodium Chloride (0.9 % Sodium Chloride Flush 3 Ml Syringe) 3 ml IVFLUSH QSHIFT [facility] Last Admin: 06/22/22 07:02 Dose: Not Given Documented By: BINU Non-Admin Reason: IV Running Sodium Chloride (0.9 % Sodium Chloride Flush 10 Ml Syringe) 5 ml IVFLUSH TID [facility] Last Admin: 06/22/22 07:06 Dose: 5 ml Documented By: BINU Venlafaxine HCl (Venlafaxine Hcl Er 37.5 Mg Cap.Er.24h) 37.5 mg PO DAILY [facility] Last Admin: 06/22/22 07:02 Dose: 37.5 mg Documented By: BINU Venlafaxine HCl (Venlafaxine Hcl Er 150 Mg Cap.Er.24h) 150 mg PO DAILY [facility] Last Admin: 06/22/22 07:02 Dose: 150 mg Documented By: BINU <Deedee Long PA-C - Last Filed: 06/22/22 10:35> Labs CBC & Chem 7: 06/20/22 09:50 06/22/22 06:03 <Deedee Long PA-C - Last Filed: 06/22/22 10:35> Labs: Laboratory Results - last 24 hr 06/21/22 06/21/22 06/21/22 01:41 11:05 11:23 Anion Gap Estim Creat Clear Calc Estimated GFR POC Glucose 132 H Random Glucose Calcium Albumin 3.3 L Triglycerides 106 06/21/22 06/21/22 06/22/22 16:35 20:03 06:03 Anion Gap 13 Estim Creat Clear Calc 74.7 Estimated GFR > 60 POC Glucose 116 H 113 Random Glucose 126 H Calcium 8.6 D Albumin Triglycerides 06/22/22 08:04 Anion Gap Estim Creat Clear Calc Estimated GFR POC Glucose 125 H Random Glucose Calcium Albumin Triglycerides <Deedee Long PA-C - Last Filed: 06/22/22 10:35> Procedures Date of Service Date of Service: 06/22/22 <Deedee Long PA-C - Last Filed: 06/22/22 10:35> Progress Note: A&P Assessment and plan (1) S/P exploratory laparotomy: Status: Acute <Deedee Long PA-C - Last Filed: 06/22/22 10:35> (2) Small bowel obstruction: Status: Acute <Deedee Long PA-C - Last Filed: 06/22/22 10:35> Assessment and Plan: Has been passing stools well since yesterday after ingestion of contrast NG tube output still significant abdomen softer but still appears distended and protuberant will keep NG tube in place follow-up KUB shows contrast to have advanced continue TPN abdomen otherwise benign seen and examined independently <Francisco Guerrero MD - Last Filed: 06/22/22 15:02> (3) Chronic anticoagulation: Status: Acute <Deedee Long PA-C - Last Filed: 06/22/22 10:35> Assessment and Plan: 76 year old male admitted with SBO that required laparotomy, [facility] on 06/10/22. He had a slow recovery course and was doing well over the weekend and tolerating solid food but developed recurrent SBO at same point on CT scan and required reinsertion of NGT. PICC, TPN initiated. Unable to complete SBFT yesterday but f/u AXR shows contrast in colon and he is now incontinent of stools. He clinically appears improved and looks more comfortable, abd is softer but does remain significantly distended. He also does complain of severe abd pain but feel as if he has trouble discerning the source of the pain. NGT has had significant output, likely contrast, and therefore will keep in place for decompression. Can have ice chips, cont TPN. He was strongly encouraged OOB/ambulation and increase in activity to promote GI function. <Deedee Long PA-C - Last Filed: 06/22/22 10:35> Time Spent With Patient Time: Total time managing care of this patient today ____ minutes. <Deedee Long PA-C - Last Filed: 06/22/22 10:35> Quality Stroke Does the patient have a stroke diagnosis?: No <Deedee Long PA-C - Last Filed: 06/22/22 10:35> VTE Prior VTE?: No <Deedee Long PA-C - Last Filed: 06/22/22 10:35> VTE Risk Level:: Surgical - low <Deedee Long PA-C - Last Filed: 06/22/22 10:35> VTE Device Contraindication: N/A - Device Ordered <ROYAL Guzman Last Filed: 06/22/22 10:35> VTE Drug Contraindication: N/A - Med Ordered <Deedee Long PA-C - Last Filed: 06/22/22 10:35>
[2022-06-22] MEDS: Fluticasone/Vilanterol 100/25 BLST.W.DEV 1 PUFF INHALE (08:43)
--- NOTE | 2022-06-22 09:58 | MHC.CLN ---
F/U CONTINUES NPO WITH TPN. TPN RUNNING D15AA5 AT 60 ML PER HOUR. RECOMMEND ADVANCE TO MAX GOAL RATE D15AA5 AT 83.33 ML PER HOUR. ADD LIPIDS 25 ML PER HOUR OF 20% LIPIDS. PROVIDES: 2020 KCALS (25 KCALS/KG IBW); 100 G PROTEIN (1.24 G/KG IBW) REPLETE LYTES NEEDED. TRIGLYCERIDES WNL. DISCUSSED WITH PHARMACY. FOLLOW FOR TPN TOLERANCE, LYTES, AND GI STATUS.
[2022-06-22 10:08] LABS: Albumin Level 3.1 g/dL (3.5-5.0); Phosphorus 4.9 mg/dL (2.7-4.5)
[2022-06-22 11:42] LABS: Glucose, Whole Blood 135 mg/dL (60-115)
--- NOTE | 2022-06-22 15:16 | PM.EVENT ---
Event Note Date of Service: 06/25/22 Event Note: Seen on afternoon rounds Says he is ?comfortable? Denies abdominal pain Had more BMs with loose stools Abdomen soft though seems to be distended and protuberant NG tube in place TPN Follow-up KUB shows contrast has advanced through the colon However, still with some small bowel dilatation Continue current care until NG tube output is improved Time Spent With Patient Time: Total time managing care of this patient today ____ minutes.
[2022-06-22] MEDS: oxyCODONE HCl Immed Release 5 MG TABLET PO (15:37)
[2022-06-22] MEDS: Enoxaparin Sodium 40 MG/0.4 ML SYRINGE SUBCUT (15:46)
[2022-06-22 16:39] LABS: Glucose, Whole Blood 111 mg/dL (60-115)
[2022-06-22] MEDS: Fat Emulsions 20% 250 ML 25 ML IV (18:12)
[2022-06-22] MEDS: traMADoL HCL 50 MG TABLET PO (20:16)
[2022-06-22] MEDS: Latanoprost 0.005 % Ophth Sol 2.5 ML DROPS 1 DROP EYE-BOTH (20:18)
[2022-06-22 20:50] LABS: Glucose, Whole Blood 112 mg/dL (60-115)
[2022-06-23] MEDS: Fat Emulsions 20% 250 ML 25 ML IV ×2 (00:14→17:47)
[2022-06-23] MEDS: LORazepam 1 MG TABLET PO ×3 (01:54→20:11)
[2022-06-23] MEDS: Acetaminophen 1,000 MG/100 ML PIGGYBACK 400 MG IV ×3 (05:08→20:10)
[2022-06-23 07:36] VITALS: BP 143/82; PULSE 79; RESP 22; TEMP 36.7; O2SAT 97
[2022-06-23] MEDS: HYDROmorphone HCl 0.5 MG/0.5 ML SYRINGE IVPUSH ×2 (07:37→14:44)
[2022-06-23] MEDS: 0.9 % Sodium Chloride Flush 3 ML SYRINGE IVFLUSH ×2 (07:42→16:28)
[2022-06-23] MEDS: 0.9 % Sodium Chloride Flush 10 ML SYRINGE 5 ML IVFLUSH ×2 (07:43→14:39)
[2022-06-23 07:51] VITALS: PULSE 81; RESP 16; O2SAT 95
[2022-06-23] MEDS: Fluticasone/Vilanterol 100/25 BLST.W.DEV 1 PUFF INHALE (07:51)
[2022-06-23 08:00] VITALS: BMI 33.0
[2022-06-23 08:06] LABS: Glucose, Whole Blood 109 mg/dL (60-115)
[2022-06-23 08:20] LABS: Albumin Level 3.3 g/dL (3.5-5.0); Anion Gap 15 (12-20); Blood Urea Nitrogen 25 mg/dL (9-16); Calcium 8.9 mg/dL (8.4-10.2); Carbon Dioxide 28 mmol/L (22-29); Chloride 102 mmol/L (96-108); Creatinine Clr Calc Pharmacy 71.3; Estimated Glomerular Filt Rate > 60; Glucose Random 114 mg/dL (60-115); Phosphorus 3.9 mg/dL (2.7-4.5); Potassium 3.7 mmol/L (3.3-5.1); Sodium 141 mmol/L (135-145); Triglycerides 142 mg/dL
[2022-06-23] MEDS: amLODIPine Besylate 10 MG TABLET NG-TUBE (08:49)
[2022-06-23] MEDS: Divalproex Sodium ER 500 MG TAB.ER.24H PO (08:49)
[2022-06-23] MEDS: Famotidine 20 MG TABLET PO ×2 (08:49→20:11)
[2022-06-23] MEDS: Venlafaxine HCl ER 150 MG CAP.ER.24H PO (08:49)
[2022-06-23] MEDS: Docusate Sodium 100 MG CAPSULE PO ×2 (08:49→20:11)
[2022-06-23] MEDS: Venlafaxine HCl ER 37.5 MG CAP.ER.24H PO (08:49)
--- NOTE | 2022-06-23 08:58 | PM.PNGS ---
Subjective Subjective Date of Service: 06/23/22 Interval history: Patient reports passing a large bowel movement today which was mostly liquid. His abdominal pain and distension feels much improved. NG tube continues to have high output. Physical Exam Vital Signs: Vital Signs: Last Vital Signs Temp 98.1 F 06/23/22 07:36 Pulse 81 06/23/22 07:51 Resp 16 06/23/22 07:51 BP 143/82 H 06/23/22 07:36 Pulse Ox 97 06/23/22 07:36 O2 Del Method 06/23/22 07:36 O2 Flow Rate 1.5 06/23/22 07:36 BMI result Body Mass Index 34.8 Const: General: comfortable and no acute distress Nutritional Appearance: well nourished Orientation/consciousness: patient oriented x3 Resp: Effort & Inspection: normal respiratory effort GI: Other: Abdominal incision is clean, dry, and intact without redness or discharge. No tympany to percussion. Bowel sounds present. Skin: Other: Warm, dry, no rash Neuro: General: patient oriented x3 Extrem: Other: No edema Objective Data Active Medications Acetaminophen/Butalbital/Caffeine (Butalb/Acetamin/Caff 50/325/40 Tablet) 1 tab PO Q4H PRN PRN Reason: headache Last Admin: 06/22/22 20:52 Dose: 1 tab Documented By: STONE Acetaminophen/Butalbital/Caffeine (Butalb/Acetamin/Caff 50/325/40 Tablet) 2 tab PO Q4H PRN PRN Reason: Headache Albuterol Sulfate (Albuterol Sulfate 90 Mcg 8 Gm Inhaler) 2 puff INHALE Q6H PRN PRN Reason: shortness of breath or wheezing Amlodipine Besylate (Amlodipine Besylate 10 Mg Tablet) 10 mg NG-TUBE DAILY [facility]; Protocol Last Admin: 06/23/22 08:49 Dose: 10 mg Documented By: BERTA Benzocaine (Throat Lozenge, Medicated Lozenge) 1 lozenge MUCOUS MEM Q2H PRN PRN Reason: Sore Throat Last Admin: 06/21/22 12:19 Dose: 1 lozenge Documented By: PRABHJOT Divalproex Sodium (Divalproex Sodium Er 500 Mg Tab.Er.24h) 500 mg PO DAILY [facility] Last Admin: 06/23/22 08:49 Dose: 500 mg Documented By: BERTA Docusate Sodium (Docusate Sodium 100 Mg Capsule) 100 mg PO BID [facility] Last Admin: 06/23/22 08:49 Dose: 100 mg Documented By: BERTA Enoxaparin Sodium (Enoxaparin Sodium 40 Mg/0.4 Ml Syringe) 40 mg SUBCUT Q24H [facility] Last Admin: 06/22/22 15:46 Dose: 40 mg Documented By: CHERELLE Famotidine (Famotidine 20 Mg Tablet) 20 mg PO BID [facility] Last Admin: 06/23/22 08:49 Dose: 20 mg Documented By: BERTA Fluticasone Propionate (Fluticasone Propionate Nasal 16 Gm [place]) 1 spray NOSTRIL-B BID PRN PRN Reason: Allergy Symptoms Fluticasone/Vilanterol (Fluticasone/Vilanterol 100/25 Blst.W.Dev) 1 puff INHALE RDAILY [facility] Last Admin: 06/23/22 07:51 Dose: 1 puff Documented By: KAL Hydromorphone HCl (Hydromorphone Hcl 0.5 Mg/0.5 Ml Syringe) 0.5 mg IVPUSH Q3H PRN; Protocol PRN Reason: Pain, Severe (Pain Scale 7-10) Last Admin: 06/23/22 07:37 Dose: 0.5 mg Documented By: BERTA Acetaminophen (Ofirmev) 1,000 mg in 100 mls @ 400 mls/hr IV Q6H [facility] Last Infusion: 06/23/22 05:30 Dose: 0 mls/hr Documented By: STONE Potassium Chloride 60 meq/Sodium Chloride 70 meq/Magnesium Sulfate 10 meq/Potassium Phosphate 10 mmol/Calcium Gluconate 9.3 meq/Multivitamins 10 ml/ Trace Metals 1 ml/ Amino Acids/Dextrose 2,000 mls @ 83.333 mls/hr IV DAILY@1800 [facility] Stop: 06/23/22 17:59 Last Admin: 06/22/22 18:12 Dose: 83.33 mls/hr Documented By: HCERELLE Potassium Chloride 60 meq/Sodium Chloride 70 meq/Magnesium Sulfate 10 meq/Potassium Phosphate 10 mmol/Calcium Gluconate 9.3 meq/Amino Acids/Dextrose 2,000 mls @ 83.333 mls/hr IV DAILY@1800 [facility] Stop: 06/24/22 17:59 Fat Emulsion Intravenous (Intralipid) 144 mls @ 24 mls/hr IV DAILY@1800 [facility] Stop: 06/23/22 23:59 Fat Emulsion Intravenous (Intralipid) 144 mls @ 24 mls/hr IV DAILY@0000 [facility] Stop: 06/24/22 05:59 Latanoprost (Latanoprost 0.005 % Ophth Saira 2.5 Ml Drops) 1 drop EYE-BOTH BEDTIME [facility] Last Admin: 06/22/22 20:18 Dose: 1 drop Documented By: STONE Lorazepam (Lorazepam 1 Mg Tablet) 1 mg PO BID PRN PRN Reason: Anxiety Last Admin: 06/23/22 01:54 Dose: 1 mg Documented By: STONE Naloxone HCl (Naloxone Hcl Nasal 4 Mg [place]) 4 mg NOSTRILALT ONCE PRN PRN Reason: Opiate Reversal Ondansetron HCl (Ondansetron Hcl 4 Mg/2 Ml Vial) 4 mg IVPUSH Q8H PRN PRN Reason: Nausea and Vomiting Last Admin: 06/21/22 10:46 Dose: 4 mg Documented By: PRABHJOT Oxycodone HCl (Oxycodone Hcl Immed Release 5 Mg Tablet) 5 mg PO Q4H PRN PRN Reason: Pain, Moderate (Pain Scale 4-6 Last Admin: 06/22/22 15:37 Dose: 5 mg Documented By: CHERELLE Oxycodone HCl (Oxycodone Hcl Immed Release 5 Mg Tablet) 10 mg PO Q4H PRN PRN Reason: Pain, Severe (Pain Scale 7-10) Last Admin: 06/22/22 07:02 Dose: 10 mg Documented By: BINU Pharmacy Consult (Consult Rx Perform Med Rec) 1 each MISCELLANE ONCE PRN PRN Reason: Consult order Sodium Chloride (0.9 % Sodium Chloride Flush 3 Ml Syringe) 3 ml IVFLUSH QSHIFT [facility] Last Admin: 06/23/22 07:42 Dose: 3 ml Documented By: BERTA Sodium Chloride (0.9 % Sodium Chloride Flush 10 Ml Syringe) 5 ml IVFLUSH TID [facility] Last Admin: 06/23/22 07:43 Dose: 5 ml Documented By: BERTA Venlafaxine HCl (Venlafaxine Hcl Er 37.5 Mg Cap.Er.24h) 37.5 mg PO DAILY [facility] Last Admin: 06/23/22 08:49 Dose: 37.5 mg Documented By: BERTA Venlafaxine HCl (Venlafaxine Hcl Er 150 Mg Cap.Er.24h) 150 mg PO DAILY [facility] Last Admin: 06/23/22 08:49 Dose: 150 mg Documented By: BERTA Labs 06/20/22 09:50 06/23/22 07:49 Labs: Laboratory Results - last 24 hr 06/22/22 06/22/22 06/22/22 06:03 11:30 16:35 Anion Gap Estim Creat Clear Calc Estimated GFR POC Glucose 135 H 111 Random Glucose Calcium Phosphorus 4.9 H Magnesium 2.0 Albumin 3.1 L Triglycerides 06/22/22 06/23/22 06/23/22 20:45 07:38 07:49 Anion Gap 15 Estim Creat Clear Calc 71.3 Estimated GFR > 60 POC Glucose 112 109 Random Glucose 114 Calcium 8.9 Phosphorus 3.9 Magnesium 2.0 Albumin 3.3 L Triglycerides 142 Procedures Date of Service Date of Service: 06/23/22 Progress Note: A&P Assessment and plan (1) S/P exploratory laparotomy: Status: Acute (2) Small bowel obstruction: Status: Acute Plan Small-bowel obstruction resolving now with a large bowel movement. Will attempt clamping trial with the NG tube. If low residual will DC NG tube and start clear liquids. Time Spent With Patient Time: Total time managing care of this patient today ____ minutes. Quality Stroke Does the patient have a stroke diagnosis?: No VTE Prior VTE?: No VTE Risk Level:: Surgical - low VTE Device Contraindication: N/A - Device Ordered VTE Drug Contraindication: N/A - Med Ordered
[2022-06-23 11:31] LABS: Glucose, Whole Blood 104 mg/dL (60-115)
[2022-06-23 12:00] VITALS: BP 135/86; PULSE 77; RESP 18; TEMP 36.6; O2SAT 96
--- NOTE | 2022-06-23 13:13 | PC.NURSE ---
NG tube clamped for 4 hours per order. Residual 150cc liquid brown after 4 hours. Low intermittent suction resumed.
[2022-06-23] MEDS: Enoxaparin Sodium 40 MG/0.4 ML SYRINGE SUBCUT (14:38)
[2022-06-23 15:19] VITALS: BP 146/79; PULSE 78; RESP 18; TEMP 37.1; O2SAT 97
[2022-06-23] MEDS: Butalb/Acetamin/Caff 50/325/40 TABLET 2 TAB PO (16:17)
[2022-06-23 17:13] LABS: Glucose, Whole Blood 96 mg/dL (60-115)
[2022-06-23 20:00] VITALS: BP 119/81; PULSE 78; RESP 18; TEMP 36.6; O2SAT 97
[2022-06-23] MEDS: Latanoprost 0.005 % Ophth Sol 2.5 ML DROPS 1 DROP EYE-BOTH (20:11)
[2022-06-23 20:26] LABS: Glucose, Whole Blood 96 mg/dL (60-115)
[2022-06-24] MEDS: Fat Emulsions 20% 250 ML 25 ML IV ×3 (00:33→23:32)
[2022-06-24] MEDS: Butalb/Acetamin/Caff 50/325/40 TABLET 2 TAB PO ×2 (02:41→12:56)
[2022-06-24] MEDS: LORazepam 1 MG TABLET PO ×4 (02:42→21:23)
[2022-06-24 03:59] VITALS: BP 112/72; PULSE 70; RESP 18; TEMP 36.1; O2SAT 97
[2022-06-24 07:23] VITALS: BP 137/87; PULSE 74; RESP 18; TEMP 36.3; O2SAT 98
[2022-06-24 07:52] LABS: Glucose, Whole Blood 115 mg/dL (60-115)
[2022-06-24 08:00] VITALS: BMI 32.9
[2022-06-24 08:07] LABS: Anion Gap 15 (12-20); Blood Urea Nitrogen 31 mg/dL (9-16); Calcium 8.5 mg/dL (8.4-10.2); Carbon Dioxide 25 mmol/L (22-29); Chloride 101 mmol/L (96-108); Creatinine Clr Calc Pharmacy 76.5; Estimated Glomerular Filt Rate > 60; Glucose Random 111 mg/dL (60-115); Magnesium 1.9 mg/dL (1.6-2.6); Phosphorus 3.7 mg/dL (2.7-4.5); Potassium 3.9 mmol/L (3.3-5.1); Sodium 137 mmol/L (135-145)
--- NOTE | 2022-06-24 08:46 | PM.PNGS ---
Subjective Subjective Date of Service: 06/24/22 Interval history: Patient feels improved today with less abdominal distension. He continues to have large liquid bowel movements however NG output after a clamping trial was too high to allow removal of nasogastric tube. Will try again today. Physical Exam Vital Signs: Vital Signs: Last Vital Signs Temp 97.4 F 06/24/22 07:23 Pulse 74 06/24/22 07:23 Resp 18 06/24/22 07:23 BP 137/87 06/24/22 07:23 Pulse Ox 98 06/24/22 07:23 O2 Del Method 06/24/22 07:23 O2 Flow Rate 1.5 06/22/22 19:44 BMI result Body Mass Index 33.0 Const: General: comfortable and no acute distress Nutritional Appearance: well nourished Orientation/consciousness: patient oriented x3 Resp: Effort & Inspection: normal respiratory effort GI: Other: Abdominal incision is clean, dry, and intact without redness or discharge. No tympany to percussion. Bowel sounds present. Palpation (GI): Soft to palpation, nontender and no guarding Skin: Other: Warm, dry, no rash Neuro: General: patient oriented x3 Extrem: Other: No edema Objective Data Active Medications Acetaminophen/Butalbital/Caffeine (Butalb/Acetamin/Caff 50/325/40 Tablet) 1 tab PO Q4H PRN PRN Reason: headache Last Admin: 06/22/22 20:52 Dose: 1 tab Documented By: STONE Acetaminophen/Butalbital/Caffeine (Butalb/Acetamin/Caff 50/325/40 Tablet) 2 tab PO Q4H PRN PRN Reason: Headache Last Admin: 06/24/22 02:41 Dose: 2 tab Documented By: STONE Albuterol Sulfate (Albuterol Sulfate 90 Mcg 8 Gm Inhaler) 2 puff INHALE Q6H PRN PRN Reason: shortness of breath or wheezing Amlodipine Besylate (Amlodipine Besylate 10 Mg Tablet) 10 mg NG-TUBE DAILY [facility]; Protocol Last Admin: 06/23/22 08:49 Dose: 10 mg Documented By: BERTA Benzocaine (Throat Lozenge, Medicated Lozenge) 1 lozenge MUCOUS MEM Q2H PRN PRN Reason: Sore Throat Last Admin: 06/21/22 12:19 Dose: 1 lozenge Documented By: PRABHJOT Divalproex Sodium (Divalproex Sodium Er 500 Mg Tab.Er.24h) 500 mg PO DAILY [facility] Last Admin: 06/23/22 08:49 Dose: 500 mg Documented By: BERTA Docusate Sodium (Docusate Sodium 100 Mg Capsule) 100 mg PO BID [facility] Last Admin: 06/23/22 20:11 Dose: 100 mg Documented By: STONE Enoxaparin Sodium (Enoxaparin Sodium 40 Mg/0.4 Ml Syringe) 40 mg SUBCUT Q24H [facility] Last Admin: 06/23/22 14:38 Dose: 40 mg Documented By: BERTA Famotidine (Famotidine 20 Mg Tablet) 20 mg PO BID [facility] Last Admin: 06/23/22 20:11 Dose: 20 mg Documented By: STONE Fluticasone Propionate (Fluticasone Propionate Nasal 16 Gm [place]) 1 spray NOSTRIL-B BID PRN PRN Reason: Allergy Symptoms Fluticasone/Vilanterol (Fluticasone/Vilanterol 100/25 Blst.W.Dev) 1 puff INHALE RDAILY [facility] Last Admin: 06/24/22 08:11 Dose: Not Given Documented By: KAL Non-Admin Reason: Patient Refused Hydromorphone HCl (Hydromorphone Hcl 0.5 Mg/0.5 Ml Syringe) 0.5 mg IVPUSH Q3H PRN; Protocol PRN Reason: Pain, Severe (Pain Scale 7-10) Last Admin: 06/23/22 14:44 Dose: 0.5 mg Documented By: BERTA Acetaminophen (Ofirmev) 1,000 mg in 100 mls @ 400 mls/hr IV Q6H [facility] Last Admin: 06/24/22 03:59 Dose: Not Given Documented By: STONE Non-Admin Reason: prioritized Fiorecept d/t Tylenol daily limit Potassium Chloride 60 meq/Sodium Chloride 70 meq/Magnesium Sulfate 10 meq/Potassium Phosphate 10 mmol/Calcium Gluconate 9.3 meq/Amino Acids/Dextrose 2,000 mls @ 83.333 mls/hr IV DAILY@1800 [facility] Stop: 06/24/22 17:59 Last Admin: 06/23/22 17:47 Dose: 83.33 mls/hr Documented By: CHAPIN Latanoprost (Latanoprost 0.005 % Ophth Saira 2.5 Ml Drops) 1 drop EYE-BOTH BEDTIME [facility] Last Admin: 06/23/22 20:11 Dose: 1 drop Documented By: STONE Lorazepam (Lorazepam 1 Mg Tablet) 1 mg PO BID [facility] Last Admin: 06/24/22 02:42 Dose: 1 mg Documented By: STONE Lorazepam (Lorazepam 1 Mg Tablet) 1 mg PO DAILY PRN PRN Reason: Anxiety Last Admin: 06/24/22 02:44 Dose: 1 mg Documented By: STONE Naloxone HCl (Naloxone Hcl Nasal 4 Mg [place]) 4 mg NOSTRILALT ONCE PRN PRN Reason: Opiate Reversal Ondansetron HCl (Ondansetron Hcl 4 Mg/2 Ml Vial) 4 mg IVPUSH Q8H PRN PRN Reason: Nausea and Vomiting Last Admin: 06/21/22 10:46 Dose: 4 mg Documented By: PRABHJOT Oxycodone HCl (Oxycodone Hcl Immed Release 5 Mg Tablet) 5 mg PO Q4H PRN PRN Reason: Pain, Moderate (Pain Scale 4-6 Last Admin: 06/22/22 15:37 Dose: 5 mg Documented By: CHERELLE Oxycodone HCl (Oxycodone Hcl Immed Release 5 Mg Tablet) 10 mg PO Q4H PRN PRN Reason: Pain, Severe (Pain Scale 7-10) Last Admin: 06/22/22 07:02 Dose: 10 mg Documented By: BINU Pharmacy Consult (Consult Rx Perform Med Rec) 1 each MISCELLANE ONCE PRN PRN Reason: Consult order Sodium Chloride (0.9 % Sodium Chloride Flush 3 Ml Syringe) 3 ml IVFLUSH QSHIFT [facility] Last Admin: 06/24/22 00:36 Dose: Not Given Documented By: STONE Non-Admin Reason: IV Running Sodium Chloride (0.9 % Sodium Chloride Flush 10 Ml Syringe) 5 ml IVFLUSH TID [facility] Last Admin: 06/23/22 21:37 Dose: Not Given Venlafaxine HCl (Venlafaxine Hcl Er 37.5 Mg Cap.Er.24h) 37.5 mg PO DAILY [facility] Last Admin: 06/23/22 08:49 Dose: 37.5 mg Documented By: BERTA Venlafaxine HCl (Venlafaxine Hcl Er 150 Mg Cap.Er.24h) 150 mg PO DAILY [facility] Last Admin: 06/23/22 08:49 Dose: 150 mg Documented By: BERTA Labs 06/20/22 09:50 06/24/22 07:08 Labs: Laboratory Results - last 24 hr 06/23/22 06/23/22 06/23/22 11:11 16:51 20:07 Anion Gap Estim Creat Clear Calc Estimated GFR POC Glucose 104 96 96 Random Glucose Calcium Phosphorus Magnesium 06/24/22 06/24/22 07:08 07:28 Anion Gap 15 Estim Creat Clear Calc 76.5 Estimated GFR > 60 POC Glucose 115 Random Glucose 111 Calcium 8.5 Phosphorus 3.7 Magnesium 1.9 Procedures Date of Service Date of Service: 06/24/22 Progress Note: A&P Assessment and plan (1) S/P exploratory laparotomy: Status: Acute (2) Small bowel obstruction: Status: Acute Plan Small-bowel obstruction/ileus continue to resolve as patient continues to have large liquid bowel movements. Will again attempt a clamping trial of the NG tube this morning. If low residual will DC NG tube and start clear liquids. Time Spent With Patient Time: Total time managing care of this patient today ____ minutes. Quality Stroke Does the patient have a stroke diagnosis?: No VTE Prior VTE?: No VTE Risk Level:: Surgical - low VTE Device Contraindication: N/A - Device Ordered VTE Drug Contraindication: N/A - Med Ordered
[2022-06-24] MEDS: amLODIPine Besylate 10 MG TABLET NG-TUBE (09:04)
[2022-06-24] MEDS: Venlafaxine HCl ER 37.5 MG CAP.ER.24H PO (09:04)
[2022-06-24] MEDS: Venlafaxine HCl ER 150 MG CAP.ER.24H PO (09:04)
[2022-06-24] MEDS: Docusate Sodium 100 MG CAPSULE PO ×2 (09:11→21:23)
[2022-06-24] MEDS: Famotidine 20 MG TABLET PO ×2 (09:11→21:23)
[2022-06-24] MEDS: Divalproex Sodium ER 500 MG TAB.ER.24H PO (09:11)
[2022-06-24] MEDS: 0.9 % Sodium Chloride Flush 3 ML SYRINGE IVFLUSH ×2 (09:24→15:04)
[2022-06-24] MEDS: HYDROmorphone HCl 0.5 MG/0.5 ML SYRINGE IVPUSH ×3 (09:25→21:23)
[2022-06-24] MEDS: 0.9 % Sodium Chloride Flush 10 ML SYRINGE 5 ML IVFLUSH ×3 (09:38→21:29)
[2022-06-24 11:30] LABS: Glucose, Whole Blood 112 mg/dL (60-115)
[2022-06-24] MEDS: oxyCODONE HCl Immed Release 5 MG TABLET PO (11:47)
[2022-06-24 12:00] VITALS: BP 125/76; PULSE 79; RESP 18; TEMP 36.4; O2SAT 96
--- NOTE | 2022-06-24 14:45 | PC.NURSE ---
NG tube removed per MD Herrera's order, pt tolerated well, per pt allowed sips of water.
[2022-06-24] MEDS: Enoxaparin Sodium 40 MG/0.4 ML SYRINGE SUBCUT (15:03)
[2022-06-24 15:38] VITALS: BP 102/68; PULSE 79; RESP 18; TEMP 36.9; O2SAT 97
[2022-06-24 17:09] LABS: Glucose, Whole Blood 107 mg/dL (60-115)
[2022-06-24 19:14] VITALS: BP 117/66; PULSE 84; RESP 18; TEMP 36.6; O2SAT 97
[2022-06-24 20:45] LABS: Glucose, Whole Blood 87 mg/dL (60-115)
[2022-06-24] MEDS: Latanoprost 0.005 % Ophth Sol 2.5 ML DROPS 1 DROP EYE-BOTH (21:30)
[2022-06-25] VITALS (7 sets, daily range): BP systolic 113–129; BP diastolic 68–80; PULSE 69–107; RESP 18–22; TEMP 36.4–38.3; O2SAT 93–99; BMI 32.9
[2022-06-25] MEDS: HYDROmorphone HCl 0.5 MG/0.5 ML SYRINGE IVPUSH ×2 (02:06→17:48)
[2022-06-25 06:39] LABS: Hematocrit 36.2 % (42.0-52.0); Hemoglobin 12.4 g/dl (14.0-18.0); Mean Corpuscular HGB Conc 34.3 g/dl (31.0-36.0); Mean Corpuscular Hemoglobin 30.7 pg (27.0-33.0); Mean Corpuscular Volume 89.6 fL (80.0-98.0); Mean Platelet Volume 10.2 fL (9.4-12.4); Platelet Count 376 X10*3/uL (160-400); Red Blood Count 4.04 X10*6/uL (4.60-5.80); Red Cell Distribution Width 13.6 % (11.0-16.0); White Blood Count 15.7 X10*3/uL (4.8-10.8)
[2022-06-25 06:53] LABS: Anion Gap 12 (12-20); Blood Urea Nitrogen 31 mg/dL (9-16); Calcium 8.4 mg/dL (8.4-10.2); Carbon Dioxide 24 mmol/L (22-29); Chloride 103 mmol/L (96-108); Creatinine Clr Calc Pharmacy 71.1; Estimated Glomerular Filt Rate > 60; Glucose Random 111 mg/dL (60-115); Sodium 135 mmol/L (135-145)
[2022-06-25 06:56] LABS: Alanine Aminotransferase 21 U/L (0-40); Alkaline Phosphatase 99 U/L (39-117); Anion Gap 12 (12-20); Aspartate Amino Transferase 31 U/L (5-37); Bilirubin Total 0.5 mg/dL (0.0-1.0); Blood Urea Nitrogen 31 mg/dL (9-16); Calcium 8.5 mg/dL (8.4-10.2); Carbon Dioxide 23 mmol/L (22-29); Chloride 104 mmol/L (96-108); Creatinine Clr Calc Pharmacy 69.3; Estimated Glomerular Filt Rate > 60; Glucose Random 111 mg/dL (60-115); Sodium 135 mmol/L (135-145); Total Protein 5.8 g/dL (6.5-8.0)
--- NOTE | 2022-06-25 07:49 | P.PNGS_ITS ---
Subjective Subjective Date of Service: 06/26/22 Interval history: NG tube removed yesterday as per nursing staff, no vomiting or nausea continues to have BMs, loose says he is okay Denies abdominal pain Physical Exam Vital Signs: Vital Signs: Last Vital Signs Temp 98.2 F 06/25/22 07:40 Pulse 90 06/25/22 07:40 Resp 22 H 06/25/22 07:40 BP 124/73 06/25/22 07:40 Pulse Ox 96 06/25/22 07:40 O2 Del Method 06/25/22 07:40 O2 Flow Rate 1 06/24/22 12:00 BMI result Body Mass Index 32.9 Const: General: no acute distress Resp: Effort & Inspection: normal respiratory effort Cardio: Rate: regular rate GI: Other: protuberant Palpation (GI): Soft to palpation, not firm, nontender and no guarding Objective Data Active Medications Acetaminophen/Butalbital/Caffeine (Butalb/Acetamin/Caff 50/325/40 Tablet) 1 tab PO Q4H PRN PRN Reason: headache Last Admin: 06/22/22 20:52 Dose: 1 tab Documented By: STONE Acetaminophen/Butalbital/Caffeine (Butalb/Acetamin/Caff 50/325/40 Tablet) 2 tab PO Q4H PRN PRN Reason: Headache Last Admin: 06/24/22 12:56 Dose: 2 tab Documented By: RHODA Albuterol Sulfate (Albuterol Sulfate 90 Mcg 8 Gm Inhaler) 2 puff INHALE Q6H PRN PRN Reason: shortness of breath or wheezing Amlodipine Besylate (Amlodipine Besylate 10 Mg Tablet) 10 mg NG-TUBE DAILY [facility]; Protocol Last Admin: 06/24/22 09:04 Dose: 10 mg Documented By: RHODA Benzocaine (Throat Lozenge, Medicated Lozenge) 1 lozenge MUCOUS MEM Q2H PRN PRN Reason: Sore Throat Last Admin: 06/21/22 12:19 Dose: 1 lozenge Documented By: PRABHJOT Divalproex Sodium (Divalproex Sodium Er 500 Mg Tab.Er.24h) 500 mg PO DAILY [facility] Last Admin: 06/24/22 09:11 Dose: 500 mg Documented By: RHODA Docusate Sodium (Docusate Sodium 100 Mg Capsule) 100 mg PO BID [facility] Last Admin: 06/24/22 21:23 Dose: 100 mg Documented By: WALLY Enoxaparin Sodium (Enoxaparin Sodium 40 Mg/0.4 Ml Syringe) 40 mg SUBCUT Q24H [facility] Last Admin: 06/24/22 15:03 Dose: 40 mg Documented By: RHODA Famotidine (Famotidine 20 Mg Tablet) 20 mg PO BID [facility] Last Admin: 06/24/22 21:23 Dose: 20 mg Documented By: WALLY Fluticasone Propionate (Fluticasone Propionate Nasal 16 Gm [place]) 1 spray NOSTRIL-B BID PRN PRN Reason: Allergy Symptoms Fluticasone/Vilanterol (Fluticasone/Vilanterol 100/25 Blst.W.Dev) 1 puff INHALE RDAILY [facility] Last Admin: 06/24/22 08:11 Dose: Not Given Documented By: KAL Non-Admin Reason: Patient Refused Hydromorphone HCl (Hydromorphone Hcl 0.5 Mg/0.5 Ml Syringe) 0.5 mg IVPUSH Q3H PRN; Protocol PRN Reason: Pain, Severe (Pain Scale 7-10) Last Admin: 06/25/22 02:06 Dose: 0.5 mg Documented By: ROBERT Potassium Chloride 60 meq/Sodium Chloride 70 meq/Magnesium Sulfate 10 meq/Potassium Phosphate 10 mmol/Calcium Gluconate 9.3 meq/Amino Acids/Dextrose 2,000 mls @ 83.333 mls/hr IV DAILY@1800 [facility] Stop: 06/25/22 17:59 Last Admin: 06/24/22 18:17 Dose: 83.33 mls/hr Documented By: RHODA Latanoprost (Latanoprost 0.005 % Ophth Saira 2.5 Ml Drops) 1 drop EYE-BOTH BEDTIME [facility] Last Admin: 06/24/22 21:30 Dose: 1 drop Documented By: WALLY Lorazepam (Lorazepam 1 Mg Tablet) 1 mg PO DAILY PRN PRN Reason: Anxiety Last Admin: 06/24/22 02:44 Dose: 1 mg Documented By: STONE Lorazepam (Lorazepam 1 Mg Tablet) 1 mg PO BID [facility] Last Admin: 06/24/22 21:23 Dose: 1 mg Documented By: WALLY Naloxone HCl (Naloxone Hcl Nasal 4 Mg [place]) 4 mg NOSTRILALT ONCE PRN PRN Reason: Opiate Reversal Ondansetron HCl (Ondansetron Hcl 4 Mg/2 Ml Vial) 4 mg IVPUSH Q8H PRN PRN Reason: Nausea and Vomiting Last Admin: 06/21/22 10:46 Dose: 4 mg Documented By: PRABHJOT Oxycodone HCl (Oxycodone Hcl Immed Release 5 Mg Tablet) 5 mg PO Q4H PRN PRN Reason: Pain, Moderate (Pain Scale 4-6 Last Admin: 06/24/22 11:47 Dose: 5 mg Documented By: RHODA Oxycodone HCl (Oxycodone Hcl Immed Release 5 Mg Tablet) 10 mg PO Q4H PRN PRN Reason: Pain, Severe (Pain Scale 7-10) Last Admin: 06/25/22 00:00 Dose: 10 mg Documented By: WALLY Pharmacy Consult (Consult Rx Perform Med Rec) 1 each MISCELLANE ONCE PRN PRN Reason: Consult order Sodium Chloride (0.9 % Sodium Chloride Flush 3 Ml Syringe) 3 ml IVFLUSH QSHIFT [facility] Last Admin: 06/24/22 23:56 Dose: Not Given Documented By: WALLY Non-Admin Reason: pt has picc Sodium Chloride (0.9 % Sodium Chloride Flush 10 Ml Syringe) 5 ml IVFLUSH TID [facility] Last Admin: 06/24/22 21:29 Dose: 5 ml Documented By: WALLY Venlafaxine HCl (Venlafaxine Hcl Er 37.5 Mg Cap.Er.24h) 37.5 mg PO DAILY [facility] Last Admin: 06/24/22 09:04 Dose: 37.5 mg Documented By: RHODA Venlafaxine HCl (Venlafaxine Hcl Er 150 Mg Cap.Er.24h) 150 mg PO DAILY [facility] Last Admin: 06/24/22 09:04 Dose: 150 mg Documented By: RHODA Labs 06/25/22 06:19 06/25/22 06:19 Labs: Laboratory Results - last 24 hr 06/24/22 06/24/22 06/24/22 07:08 07:28 11:19 MCV MCH MCHC RDW Plt Count MPV Absolute Nucleated RBC Nucleated RBC % (auto) Anion Gap 15 Estim Creat Clear Calc 76.5 Estimated GFR > 60 POC Glucose 115 112 Random Glucose 111 Calcium 8.5 Phosphorus 3.7 Magnesium 1.9 Total Bilirubin AST ALT Alkaline Phosphatase Total Protein Albumin 06/24/22 06/24/22 06/25/22 16:33 20:33 06:19 MCV 89.6 MCH 30.7 MCHC 34.3 RDW 13.6 Plt Count 376 MPV 10.2 Absolute Nucleated RBC 0.000 Nucleated RBC % (auto) 0.0 Anion Gap Estim Creat Clear Calc Estimated GFR POC Glucose 107 87 Random Glucose Calcium Phosphorus Magnesium Total Bilirubin AST ALT Alkaline Phosphatase Total Protein Albumin 06/25/22 06/25/22 06:19 06:19 MCV MCH MCHC RDW Plt Count MPV Absolute Nucleated RBC Nucleated RBC % (auto) Anion Gap 12 12 Estim Creat Clear Calc 69.3 71.1 Estimated GFR > 60 > 60 POC Glucose Random Glucose 111 111 Calcium 8.5 8.4 Phosphorus Magnesium Total Bilirubin 0.5 AST 31 ALT 21 Alkaline Phosphatase 99 Total Protein 5.8 L Albumin 3.0 L Procedures Date of Service Date of Service: 06/25/22 Progress Note: A&P Assessment and plan (1) S/P exploratory laparotomy: Status: Acute Assessment and Plan: NG tube removed yesterday he seems to be coming along will start on clear liquids continue TPN for now abdomen soft and benign plan to DC musa Time Spent With Patient Time: Total time managing care of this patient today ____ minutes. Quality Stroke Does the patient have a stroke diagnosis?: No VTE Prior VTE?: No VTE Risk Level:: Surgical - low VTE Device Contraindication: N/A - Device Ordered VTE Drug Contraindication: N/A - Med Ordered
[2022-06-25 08:00] LABS: Albumin Level 3.1 g/dL (3.5-5.0); Magnesium 1.7 mg/dL (1.6-2.6); Phosphorus 2.8 mg/dL (2.7-4.5)
[2022-06-25] MEDS: Fluticasone/Vilanterol 100/25 BLST.W.DEV 1 PUFF INHALE (08:21)
[2022-06-25 08:42] LABS: Glucose, Whole Blood 104 mg/dL (60-115)
[2022-06-25] MEDS: amLODIPine Besylate 10 MG TABLET NG-TUBE (08:54)
[2022-06-25] MEDS: Docusate Sodium 100 MG CAPSULE PO ×2 (08:55→22:10)
[2022-06-25] MEDS: Venlafaxine HCl ER 150 MG CAP.ER.24H PO (08:55)
[2022-06-25] MEDS: LORazepam 1 MG TABLET PO ×2 (08:55→22:10)
[2022-06-25] MEDS: Venlafaxine HCl ER 37.5 MG CAP.ER.24H PO (08:55)
[2022-06-25] MEDS: Divalproex Sodium ER 500 MG TAB.ER.24H PO (08:55)
[2022-06-25] MEDS: Famotidine 20 MG TABLET PO ×2 (08:55→22:10)
[2022-06-25] MEDS: 0.9 % Sodium Chloride Flush 3 ML SYRINGE IVFLUSH (08:56)
[2022-06-25] MEDS: 0.9 % Sodium Chloride Flush 10 ML SYRINGE 5 ML IVFLUSH ×2 (08:56→13:31)
[2022-06-25] MEDS: oxyCODONE HCl Immed Release 5 MG TABLET 10 MG PO ×3 (09:31→13:31)
[2022-06-25 11:16] LABS: Glucose, Whole Blood 111 mg/dL (60-115)
--- NOTE | 2022-06-25 11:23 | MHC.CLN ---
F/U NG TUBE OUT 06/24. STARTED CLEAR LIQUIDS 06/25. CONTINUES WITH TPN. TPN RUNNING AT MAX GOAL RATE: [id number] AT 83.33 ML PER HOUR. LIPIDS 25 ML PER HOUR OF 20% LIPIDS. PROVIDES: 2020 KCALS (25 KCALS/KG IBW); 100 G PROTEIN (1.24 G/KG IBW) REPLETE LYTES NEEDED. LABS REVIEWED. TRIGLYCERIDES WNL. COMMUNICATED WITH PHARMACY. FOLLOW FOR TPN TOLERANCE, LYTES, AND DIET TOLERANCE/ADVANCEMENT.
[2022-06-25] MEDS: Acetaminophen 325 MG TABLET 650 MG PO (12:17)
[2022-06-25] MEDS: Enoxaparin Sodium 40 MG/0.4 ML SYRINGE SUBCUT (13:31)
--- NOTE | 2022-06-25 15:00 | MHC.CM.PN ---
EMR REVIEWED, PER SURGICAL NOTE PT MOVING BOWELS, NG TUBE REMOVED OVER W/E, PT ON CLEAR LIQUIDS AND PLAN TO CONT TPN FOR NOW, NO PLAN FOR D/C AT THIS TIME, CM WILL CONT TO FOLLOW D/C NEEDS.
--- NOTE | 2022-06-25 16:10 | PM.EVENT ---
Event Note Date of Service: 06/26/22 Event Note: Seen on postop rounds he is complaining of headache denies abdominal pain no vomiting abdomen soft no guarding, rebound or tenderness he had a low-grade temp earlier today at 100.9 I had ordered for chest x-ray which shows question of infiltrates on the right UA also ordered I have asked the hospitalist service to do a follow-up Time Spent With Patient Time: Total time managing care of this patient today ____ minutes.
--- NOTE | 2022-06-25 16:34 | HO.PM.IMCN ---
History of Present Illness Data of Consult Service Date: 06/25/22 Requesting physician: Francisco Guerrero Primary Care Provider: Thania Almaraz MD HPI Reason for consult: fever 76-year-old man with a history HTN, diverticulitis, prostate cancer treated with radiation, history of PE on apixaban, paroxysmal atrial fibrillation, mood disorder, depression, chronic headaches, allergic asthma, iron deficiency anemia, and PUD admitted to general surgery for management of SBO/ileus with consult place to hospitalist service for evaluation of fever. Pt is s/p exploratory laparotomy with lysis of adhesions on 06/10 with NG tube placed and patient receiving TPN. NG tube was removed yesterday and patient was advanced to clears and PPN. However, he is reporting anorexia, but does state he is drinking fluids. Denies dysphagia. He has also had a severe bandlike headache. No associated visual changes. No n/v, photophobia, phonophobia, lightheadedness. He was noted to be febrile to 100.9 earlier today with heart rate 107. He also has had steadily increasing leukocytosis, today 15.7. Renal function and electrolyte levels normal. Chest x-ray was ordered but is not yet resulted. Patient denies any shaking chills, sore throat, congestion, abdominal pain, diarrhea, constipation, dysuria, hematuria, increased urinary frequency, decreased urinary output, cough, shortness of breath, wheezing, chest pain. Review of Systems Review of Systems: Yes all other systems are reviewed and are negative [facility] Medical History Allergic bronchitis Anxiety and depression Asthma exacerbation Atrial fibrillation Chest tightness Constipation Degenerative disc disease Diverticular disease Dyspnea on exertion Dysuria Fatigue Fatigue Generalized anxiety disorder GERD (gastroesophageal reflux disease) Gout Headache Hospital discharge follow-up Hypertension Iron deficiency anemia Knee fracture, left Leukocytosis Low vitamin D level Moderate recurrent major depression Obesity (BMI 30-39.9) Obstructive sleep apnea Peptic ulcer disease Premature atrial complexes Prostate cancer Rash Serum potassium elevated Shortness of breath SOB (shortness of breath) on exertion Tinea cruris Vitamin B12 deficiency Vitamin D deficiency Wedge compression fracture of L1 vertebra Family History Father Diabetes Acute kidney failure Glaucoma Mother Lung cancer Surgical History H/O hernia repair H/O rectal polypectomy History of bowel resection History of cholecystectomy History of colonoscopy History of hemiarthroplasty of left hip History of knee replacement procedure of left knee History of pyloroplasty Social History Household Members: None Housing: Apartment Do you presently have visiting nurse or other home services: No Alcohol intake: unknown Patient Tobacco Use Status: Former Tobacco user Quit Date: Tobacco use type: Cigar e-Cigarette/Vaping Use: Currently Using Second Hand Smoke Exposure: No Advance Directives Date on File: 01/30/20 service: No Current occupational status: retired Cognitive needs: No Hearing needs: Yes Vision needs: Yes Meds Allergies Allergy/AdvReac Type Severity Reaction Status Date / Time carisoprodol [From Soma] Allergy Mild MENTAL Verified 03/08/22 15:43 STATUS CHANGE, BECOMES AGGRESIVE codeine [Codeine] Allergy Mild STOMACH Verified 03/08/22 15:43 UPSET, RASH gabapentin AdvReac Intermediate lousy Verified 03/08/22 15:43 feeling Active Medications: Current Medications Acetaminophen (Acetaminophen 325 Mg Tablet) 650 mg PO Q4H PRN PRN Reason: Headache Last Admin: 06/25/22 12:17 Dose: 650 mg Acetaminophen/Butalbital/Caffeine (Butalb/Acetamin/Caff 50/325/40 Tablet) 1 tab PO Q4H PRN PRN Reason: headache Last Admin: 06/22/22 20:52 Dose: 1 tab Acetaminophen/Butalbital/Caffeine (Butalb/Acetamin/Caff 50/325/40 Tablet) 2 tab PO Q4H PRN PRN Reason: Headache Last Admin: 06/24/22 12:56 Dose: 2 tab Albuterol Sulfate (Albuterol Sulfate 90 Mcg 8 Gm Inhaler) 2 puff INHALE Q6H PRN PRN Reason: shortness of breath or wheezing Amlodipine Besylate (Amlodipine Besylate 10 Mg Tablet) 10 mg NG-TUBE DAILY [facility]; Protocol Last Admin: 06/25/22 08:54 Dose: 10 mg Benzocaine (Throat Lozenge, Medicated Lozenge) 1 lozenge MUCOUS MEM Q2H PRN PRN Reason: Sore Throat Last Admin: 06/21/22 12:19 Dose: 1 lozenge Divalproex Sodium (Divalproex Sodium Er 500 Mg Tab.Er.24h) 500 mg PO DAILY [facility] Last Admin: 06/25/22 08:55 Dose: 500 mg Docusate Sodium (Docusate Sodium 100 Mg Capsule) 100 mg PO BID [facility] Last Admin: 06/25/22 08:55 Dose: 100 mg Enoxaparin Sodium (Enoxaparin Sodium 40 Mg/0.4 Ml Syringe) 40 mg SUBCUT Q24H [facility] Last Admin: 06/25/22 13:31 Dose: 40 mg Famotidine (Famotidine 20 Mg Tablet) 20 mg PO BID [facility] Last Admin: 06/25/22 08:55 Dose: 20 mg Fluticasone Propionate (Fluticasone Propionate Nasal 16 Gm [place]) 1 spray NOSTRIL-B BID PRN PRN Reason: Allergy Symptoms Fluticasone/Vilanterol (Fluticasone/Vilanterol 100/25 Blst.W.Dev) 1 puff INHALE RDAILY [facility] Last Admin: 06/25/22 08:21 Dose: 1 puff Hydromorphone HCl (Hydromorphone Hcl 0.5 Mg/0.5 Ml Syringe) 0.5 mg IVPUSH Q3H PRN; Protocol PRN Reason: Pain, Severe (Pain Scale 7-10) Last Admin: 06/25/22 02:06 Dose: 0.5 mg Potassium Chloride 60 meq/Sodium Chloride 70 meq/Magnesium Sulfate 10 meq/Potassium Phosphate 10 mmol/Calcium Gluconate 9.3 meq/Amino Acids/Dextrose 2,000 mls @ 83.333 mls/hr IV DAILY@1800 [facility] Stop: 06/25/22 17:59 Last Admin: 06/24/22 18:17 Dose: 83.33 mls/hr Potassium Chloride 60 meq/Sodium Chloride 70 meq/Magnesium Sulfate 10 meq/Potassium Phosphate 10 mmol/Calcium Gluconate 9.3 meq/Multivitamins 10 ml/ Trace Metals 1 ml/ Amino Acids/Dextrose 2,000 mls @ 83.333 mls/hr IV DAILY@1800 [facility] Stop: 06/26/22 17:59 Fat Emulsion Intravenous (Intralipid) 150 mls @ 25 mls/hr IV Q6H [facility] Stop: 06/26/22 05:59 Latanoprost (Latanoprost 0.005 % Ophth Saira 2.5 Ml Drops) 1 drop EYE-BOTH BEDTIME [facility] Last Admin: 06/24/22 21:30 Dose: 1 drop Lorazepam (Lorazepam 1 Mg Tablet) 1 mg PO DAILY PRN PRN Reason: Anxiety Last Admin: 06/24/22 02:44 Dose: 1 mg Lorazepam (Lorazepam 1 Mg Tablet) 1 mg PO BID [facility] Last Admin: 06/25/22 08:55 Dose: 1 mg Naloxone HCl (Naloxone Hcl Nasal 4 Mg [place]) 4 mg NOSTRILALT ONCE PRN PRN Reason: Opiate Reversal Ondansetron HCl (Ondansetron Hcl 4 Mg/2 Ml Vial) 4 mg IVPUSH Q8H PRN PRN Reason: Nausea and Vomiting Last Admin: 06/21/22 10:46 Dose: 4 mg Oxycodone HCl (Oxycodone Hcl Immed Release 5 Mg Tablet) 5 mg PO Q4H PRN PRN Reason: Pain, Moderate (Pain Scale 4-6 Last Admin: 06/24/22 11:47 Dose: 5 mg Oxycodone HCl (Oxycodone Hcl Immed Release 5 Mg Tablet) 10 mg PO Q4H PRN PRN Reason: Pain, Severe (Pain Scale 7-10) Last Admin: 06/25/22 13:31 Dose: 10 mg Pharmacy Consult (Consult Rx Perform Med Rec) 1 each MISCELLANE ONCE PRN PRN Reason: Consult order Sodium Chloride (0.9 % Sodium Chloride Flush 3 Ml Syringe) 3 ml IVFLUSH QSHIFT [facility] Last Admin: 06/25/22 08:56 Dose: 3 ml Sodium Chloride (0.9 % Sodium Chloride Flush 10 Ml Syringe) 5 ml IVFLUSH TID [facility] Last Admin: 06/25/22 13:31 Dose: 5 ml Venlafaxine HCl (Venlafaxine Hcl Er 37.5 Mg Cap.Er.24h) 37.5 mg PO DAILY [facility] Last Admin: 06/25/22 08:55 Dose: 37.5 mg Venlafaxine HCl (Venlafaxine Hcl Er 150 Mg Cap.Er.24h) 150 mg PO DAILY [facility] Last Admin: 06/25/22 08:55 Dose: 150 mg Home Medications Medication Instructions Recorded Confirmed Last Taken Type divalproex 500 mg tablet,delayed 500 mg PO DAILY 05/26/20 06/09/22 1 Day Ago History release ~06/08/22 [id number] 1 tab PO BEDTIME PRN Migraine 10/20/20 06/09/22 Unknown History 50 mg-325 mg-40 mg tablet Headache lorazepam 1 mg tablet 1 tab PO BID 10/20/20 06/09/22 1 Day Ago History ~06/08/22 venlafaxine 150 mg 150 mg PO DAILY 04/17/21 06/09/22 1 Day Ago History capsule,extended release 24 hr ~06/08/22 fluticasone propionate 45 2 puff inhalation BID 12/14/21 06/09/22 1 Day Ago History mcg-salmeterol 21 mcg/actuation ~06/08/22 HFA inhaler (Advair HFA) cyanocobalamin (vitamin B-12) 1,000 mcg subcut QMONTH 06/09/22 06/09/22 1 Week Ago History 1,000 mcg/mL injection solution ~06/02/22 fluticasone propionate 50 1 spray intranasal BID PRN Allergy 06/09/22 06/09/22 Unknown History mcg/actuation nasal Symptoms spray,suspension latanoprost 0.005 % eye drops 1 drp ophthalmic (eye) BEDTIME 06/09/22 06/09/22 06/07/22 History lorazepam 1 mg tablet 1 mg PO DAILY PRN Anxiety 06/09/22 06/09/22 Unknown History omeprazole 40 mg capsule,delayed 40 mg PO DAILY@0630 06/09/22 06/09/22 1 Day Ago History release ~06/08/22 tadalafil 5 mg tablet 1 tab PO DAILY 06/09/22 06/09/22 1 Day Ago History ~06/08/22 venlafaxine 37.5 mg 1 cap PO DAILY 06/09/22 06/09/22 1 Day Ago History capsule,extended release 24 hr ~06/08/22 vibegron 75 mg tablet (Gemtesa) 1 tab PO DAILY 06/09/22 06/09/22 1 Day Ago History ~06/08/22 Physical Exam Vital Signs and Narrative: Vital Signs: Last Vital Signs Temp 98.5 F 06/25/22 16:18 Pulse 75 06/25/22 16:18 Resp 18 06/25/22 16:18 BP 121/69 06/25/22 16:18 Pulse Ox 96 06/25/22 16:18 O2 Del Method 06/25/22 16:18 O2 Flow Rate 1 06/24/22 12:00 BMI result Body Mass Index 32.9 Constitutional - Awake and Alert, No apparent distress Eyes - PERRLA, EOMI Cardiovascular - S1S2, RRR, No edema Respiratory - Normal lung expansion, Normal respiratory effort, No respiratory distress, CTA bilaterally Gastrointestinal - NT / ND; +BS; No rebound or guarding - No CVA tenderness Extremities - no calf tenderness bilaterally, no swelling Skin - Warm/Dry Neurological - Alert & oriented x3, CN II-XII in tact Psychological - Appropriate affect Results Labs 06/25/22 06:19 06/25/22 06:19 Labs: Laboratory Results - last 24 hr 06/24/22 06/24/22 06/25/22 16:33 20:33 06:19 MCV 89.6 MCH 30.7 MCHC 34.3 RDW 13.6 Plt Count 376 MPV 10.2 Absolute Nucleated RBC 0.000 Nucleated RBC % (auto) 0.0 Anion Gap Estim Creat Clear Calc Estimated GFR POC Glucose 107 87 Random Glucose Calcium Phosphorus Magnesium Total Bilirubin AST ALT Alkaline Phosphatase Total Protein Albumin 06/25/22 06/25/22 06/25/22 06:19 06:19 08:37 MCV MCH MCHC RDW Plt Count MPV Absolute Nucleated RBC Nucleated RBC % (auto) Anion Gap 12 12 Estim Creat Clear Calc 69.3 71.1 Estimated GFR > 60 > 60 POC Glucose 104 Random Glucose 111 111 Calcium 8.5 8.4 Phosphorus 2.8 Magnesium 1.7 Total Bilirubin 0.5 AST 31 ALT 21 Alkaline Phosphatase 99 Total Protein 5.8 L Albumin 3.0 L 3.1 L 06/25/22 11:01 MCV MCH MCHC RDW Plt Count MPV Absolute Nucleated RBC Nucleated RBC % (auto) Anion Gap Estim Creat Clear Calc Estimated GFR POC Glucose 111 Random Glucose Calcium Phosphorus Magnesium Total Bilirubin AST ALT Alkaline Phosphatase Total Protein Albumin Assessment and Plan (1) Fever: Status: Acute Plan 76-year-old man with a history HTN, diverticulitis, prostate cancer treated with radiation, history of PE on apixaban, paroxysmal atrial fibrillation, mood disorder, depression, chronic headaches, allergic asthma, iron deficiency anemia, and PUD admitted to general surgery for management of SBO/ileus with consult place to hospitalist service for evaluation of fever. Patient with persistent headache ongoing three days with fever this am of 100.9 with associated tachycardia of 107 both of which resolved following 650 mg acetaminophen. Vitals now stable, patient afebrile. He have leukocytosis of 15.7. Chest x-ray ordered with results pending. COVID-19 and influenza test also pending. Will also check for any UTI with UA/UC. Blood cultures ordered. He can continue using fioricet for headaches. Will continue following for results. Plan to be adjusted as appropriate. Time Spent With Patient Time: Total time managing care of this patient today ____ minutes.
[2022-06-25] MEDS: Butalb/Acetamin/Caff 50/325/40 TABLET 2 TAB PO (16:44)
[2022-06-25] MEDS: Fat Emulsions 20% 250 ML 25 ML IV (18:03)
[2022-06-25 18:14] LABS: IDNOW Serial# BCCEAD1C; Influenza A Negative (Negative); Influenza B2 Negative (Negative)
[2022-06-25 18:15] LABS: COVID-19 Test Negative (Negative); IDNOW Serial# 16C4AD1C
[2022-06-25 18:49] LABS: Appearance Urine Clear; Color Urine Yellow; Glucose Urine UA Negative (Negative); Leukocyte Esterase Urine Negative (Negative); Nitrite Urine Negative (Negative); PH 5.5 (5.0-9.0); Specific Gravity - Urine 1.015 (1.005-1.025); Urine Blood Negative (Negative); Urine Ketones Negative (Negative); Urine Protein Negative (Neg-Trace)
[2022-06-25] MEDS: Latanoprost 0.005 % Ophth Sol 2.5 ML DROPS 1 DROP EYE-BOTH (22:14)
[2022-06-26] VITALS (8 sets, daily range): BP systolic 98–118; BP diastolic 55–63; PULSE 71–102; RESP 16–28; TEMP 36.2–36.7; O2SAT 93–97; BMI 32.8
[2022-06-26] MEDS: Fat Emulsions 20% 250 ML 25 ML IV (00:15)
[2022-06-26] MEDS: Butalb/Acetamin/Caff 50/325/40 TABLET 2 TAB PO ×4 (01:24→16:51)
[2022-06-26] MEDS: HYDROmorphone HCl 0.5 MG/0.5 ML SYRINGE IVPUSH ×4 (03:13→16:51)
[2022-06-26 06:21] LABS: MANUAL DIFF FLAG NO
[2022-06-26 06:25] LABS: Basophils Absolute Auto 0.1 X10*3/uL (0.0-0.2); Basophils Percent Auto 0.6 % (0-2); Eosinophils Percent Auto 0.1 % (0-4); Hematocrit 35.9 % (42.0-52.0); Imm Gran Abs Auto 0.16 X10*3/uL (0.00-0.03); Imm Gran Pct Auto 1.5 % (0.0-0.4); Lymphocytes Absolute Auto 0.4 X10*3/uL (1.2-4.9); Lymphocytes Percent Auto 3.9 % (20-40); Mean Corpuscular HGB Conc 33.4 g/dl (31.0-36.0); Mean Corpuscular Hemoglobin 30.6 pg (27.0-33.0); Mean Corpuscular Volume 91.6 fL (80.0-98.0); Mean Platelet Volume 10.6 fL (9.4-12.4); Monocytes Absolute Auto 0.5 X10*3/uL (0.1-1.2); Monocytes Percent Auto 4.5 % (2-11); Neutrophils Absolute Auto 9.6 x10*3/uL (2.0-8.3); Neutrophils Percent Auto 89.4 % (45-73); Platelet Count 292 X10*3/uL (160-400); Red Blood Count 3.92 X10*6/uL (4.60-5.80); White Blood Count 10.8 X10*3/uL (4.8-10.8)
[2022-06-26 06:44] LABS: Anion Gap 14 (12-20); Blood Urea Nitrogen 30 mg/dL (9-16); Calcium 8.4 mg/dL (8.4-10.2); Carbon Dioxide 20 mmol/L (22-29); Chloride 105 mmol/L (96-108); Creatinine Clr Calc Pharmacy 69.9; Estimated Glomerular Filt Rate > 60; Glucose Random 111 mg/dL (60-115); Potassium 4.1 mmol/L (3.3-5.1); Sodium 135 mmol/L (135-145)
[2022-06-26 07:46] LABS: Magnesium 1.6 mg/dL (1.6-2.6); Phosphorus 2.5 mg/dL (2.7-4.5); Triglycerides 110 mg/dL
[2022-06-26 07:51] LABS: Glucose, Whole Blood 113 mg/dL (60-115)
[2022-06-26] MEDS: Fluticasone/Vilanterol 100/25 BLST.W.DEV 1 PUFF INHALE (07:51)
--- NOTE | 2022-06-26 08:22 | PM.PNGS ---
Subjective Subjective Date of Service: 06/26/22 <Deedee Long PA-C - Last Filed: 06/26/22 08:28> 06/26/22 <Francisco Guerrero MD - Last Filed: 06/26/22 12:19> Interval history: Feels better overall. Denies abd pain. Continues with large loose stools. Tolerating clear liquids without N/V. Denies SOB, dysuria. <Deedee Long PA-C - Last Filed: 06/26/22 08:28> Physical Exam Vital Signs: Vital Signs: Last Vital Signs Temp 98.1 F 06/26/22 07:36 Pulse 92 06/26/22 07:51 Resp 20 06/26/22 07:51 BP 108/59 L 06/26/22 07:36 Pulse Ox 93 06/26/22 07:36 O2 Del Method 06/26/22 07:36 O2 Flow Rate 1 06/24/22 12:00 BMI result Body Mass Index 32.9 <Deedee Long PA-C - Last Filed: 06/26/22 08:28> Const: General: comfortable and no acute distress <Deedee Long PA-C - Last Filed: 06/26/22 08:28> Resp: Effort & Inspection: normal respiratory effort <Deedee Long PA-C - Last Filed: 06/26/22 08:28> GI: Inspection: Yes distended and Yes incision (clean) <Deedee Long PA-C - Last Filed: 06/26/22 08:28> Palpation (GI): Soft to palpation, nontender, no guarding and not rigid <Deedee Long PA-C - Last Filed: 06/26/22 08:28> Percussion: Yes tympanic to percussion <ROYAL Guzman Last Filed: 06/26/22 08:28> Skin: General skin exam: no rashes or lesions noted <ROYAL Guzman Last Filed: 06/26/22 08:28> Objective Data Active Medications Acetaminophen (Acetaminophen 325 Mg Tablet) 650 mg PO Q4H PRN PRN Reason: Headache Last Admin: 06/25/22 12:17 Dose: 650 mg Documented By: ASHWIN Acetaminophen/Butalbital/Caffeine (Butalb/Acetamin/Caff 50/325/40 Tablet) 1 tab PO Q4H PRN PRN Reason: headache Last Admin: 06/22/22 20:52 Dose: 1 tab Documented By: STONE Acetaminophen/Butalbital/Caffeine (Butalb/Acetamin/Caff 50/325/40 Tablet) 2 tab PO Q4H PRN PRN Reason: Headache Last Admin: 06/26/22 01:24 Dose: 2 tab Documented By: WALLY Albuterol Sulfate (Albuterol Sulfate 90 Mcg 8 Gm Inhaler) 2 puff INHALE Q6H PRN PRN Reason: shortness of breath or wheezing Amlodipine Besylate (Amlodipine Besylate 10 Mg Tablet) 10 mg NG-TUBE DAILY [facility]; Protocol Last Admin: 06/25/22 08:54 Dose: 10 mg Documented By: AHSWIN Benzocaine (Throat Lozenge, Medicated Lozenge) 1 lozenge MUCOUS MEM Q2H PRN PRN Reason: Sore Throat Last Admin: 06/21/22 12:19 Dose: 1 lozenge Documented By: PRABHJOT Divalproex Sodium (Divalproex Sodium Er 500 Mg Tab.Er.24h) 500 mg PO DAILY [facility] Last Admin: 06/25/22 08:55 Dose: 500 mg Documented By: ASHWIN Docusate Sodium (Docusate Sodium 100 Mg Capsule) 100 mg PO BID [facility] Last Admin: 06/25/22 22:10 Dose: 100 mg Documented By: ASHWIN Enoxaparin Sodium (Enoxaparin Sodium 40 Mg/0.4 Ml Syringe) 40 mg SUBCUT Q24H [facility] Last Admin: 06/25/22 13:31 Dose: 40 mg Documented By: BINU Famotidine (Famotidine 20 Mg Tablet) 20 mg PO BID [facility] Last Admin: 06/25/22 22:10 Dose: 20 mg Documented By: ASHWIN Fluticasone Propionate (Fluticasone Propionate Nasal 16 Gm Emerson) 1 spray NOSTRIL-B BID PRN PRN Reason: Allergy Symptoms Fluticasone/Vilanterol (Fluticasone/Vilanterol 100/25 Ludin) 1 puff INHALE RDAILY [facility] Last Admin: 06/26/22 07:51 Dose: 1 puff Documented By: IRENA Hydromorphone HCl (Hydromorphone Hcl 0.5 Mg/0.5 Ml Syringe) 0.5 mg IVPUSH Q3H PRN; Protocol PRN Reason: Pain, Severe (Pain Scale 7-10) Last Admin: 06/26/22 06:16 Dose: 0.5 mg Documented By: WALLY Potassium Chloride 60 meq/Sodium Chloride 70 meq/Magnesium Sulfate 10 meq/Potassium Phosphate 10 mmol/Calcium Gluconate 9.3 meq/Multivitamins 10 ml/ Trace Metals 1 ml/ Amino Acids/Dextrose 2,000 mls @ 83.333 mls/hr IV DAILY@1800 [facility] Stop: 06/26/22 17:59 Last Admin: 06/25/22 18:03 Dose: 83.33 mls/hr Documented By: ASHWIN Latanoprost (Latanoprost 0.005 % Ophth Saria 2.5 Ml Drops) 1 drop EYE-BOTH BEDTIME [facility] Last Admin: 06/25/22 22:14 Dose: 1 drop Documented By: ASHWIN Lorazepam (Lorazepam 1 Mg Tablet) 1 mg PO DAILY PRN PRN Reason: Anxiety Last Admin: 06/24/22 02:44 Dose: 1 mg Documented By: STONE Lorazepam (Lorazepam 1 Mg Tablet) 1 mg PO BID [facility] Last Admin: 06/25/22 22:10 Dose: 1 mg Documented By: ASHWIN Naloxone HCl (Naloxone Hcl Nasal 4 Mg Emerson) 4 mg NOSTRILALT ONCE PRN PRN Reason: Opiate Reversal Ondansetron HCl (Ondansetron Hcl 4 Mg/2 Ml Vial) 4 mg IVPUSH Q8H PRN PRN Reason: Nausea and Vomiting Last Admin: 06/21/22 10:46 Dose: 4 mg Documented By: CASSI-OSVALDO Oxycodone HCl (Oxycodone Hcl Immed Release 5 Mg Tablet) 5 mg PO Q4H PRN PRN Reason: Pain, Moderate (Pain Scale 4-6 Last Admin: 06/24/22 11:47 Dose: 5 mg Documented By: RHODA Oxycodone HCl (Oxycodone Hcl Immed Release 5 Mg Tablet) 10 mg PO Q4H PRN PRN Reason: Pain, Severe (Pain Scale 7-10) Last Admin: 06/25/22 13:31 Dose: 10 mg Documented By: BINU Pharmacy Consult (Consult Rx Perform Med Rec) 1 each MISCELLANE ONCE PRN PRN Reason: Consult order Sodium Chloride (0.9 % Sodium Chloride Flush 3 Ml Syringe) 3 ml IVFLUSH QSHIFT [facility] Last Admin: 06/26/22 00:21 Dose: Not Given Documented By: WALLY Non-Admin Reason: pt has picc Sodium Chloride (0.9 % Sodium Chloride Flush 10 Ml Syringe) 5 ml IVFLUSH TID [facility] Last Admin: 06/25/22 22:18 Dose: Not Given Documented By: ASHWIN Non-Admin Reason: picc line Venlafaxine HCl (Venlafaxine Hcl Er 37.5 Mg Cap.Er.24h) 37.5 mg PO DAILY [facility] Last Admin: 06/25/22 08:55 Dose: 37.5 mg Documented By: ASHWIN Venlafaxine HCl (Venlafaxine Hcl Er 150 Mg Cap.Er.24h) 150 mg PO DAILY [facility] Last Admin: 06/25/22 08:55 Dose: 150 mg Documented By: ASHWIN <Deedee Long PA-C - Last Filed: 06/26/22 08:28> Labs CBC & Chem 7: 06/26/22 06:04 06/26/22 06:04 <Deedee Long PA-C - Last Filed: 06/26/22 08:28> Labs: Laboratory Results - last 24 hr 06/25/22 06/25/22 06/25/22 08:37 11:01 17:18 MCV MCH MCHC RDW Plt Count MPV Immature Gran % (Auto) Neut % (Auto) Lymph % (Auto) Towner % (Auto) Eos % (Auto) Baso % (Auto) Lymph # (Auto) Towner # (Auto) Eos # (Auto) Baso # (Auto) Abs Immat Gran (auto) Absolute Neuts (auto) Absolute Nucleated RBC Nucleated RBC % (auto) Anion Gap Estim Creat Clear Calc Estimated GFR POC Glucose 104 111 Random Glucose Calcium Phosphorus Magnesium Albumin Triglycerides Urine Color Urine Appearance Urine pH Ur Specific [place] Urine Protein Urine Glucose (UA) Urine Ketones Urine Blood Urine Nitrite Ur Leukocyte Esterase COVID-19 (MAGY) COVID-19 Clin Com Influenza Type A (TRICIA) Negative Influenza Type B (TRICIA) Negative Influenza A & B Note See Note 06/25/22 06/25/22 06/26/22 17:18 18:20 06:04 MCV MCH MCHC RDW Plt Count MPV Immature Gran % (Auto) Neut % (Auto) Lymph % (Auto) Towner % (Auto) Eos % (Auto) Baso % (Auto) Lymph # (Auto) Towner # (Auto) Eos # (Auto) Baso # (Auto) Abs Immat Gran (auto) Absolute Neuts (auto) Absolute Nucleated RBC Nucleated RBC % (auto) Anion Gap 14 Estim Creat Clear Calc 69.9 Estimated GFR > 60 POC Glucose Random Glucose 111 Calcium 8.4 Phosphorus 2.5 L Magnesium 1.6 Albumin 3.0 L Triglycerides 110 Urine Color Yellow Urine Appearance Clear Urine pH 5.5 Ur Specific [place] 1.015 Urine Protein Negative Urine Glucose (UA) Negative Urine Ketones Negative Urine Blood Negative Urine Nitrite Negative Ur Leukocyte Esterase Negative COVID-19 (MAGY) Negative COVID-19 Clin Com See Note Influenza Type A (TRICIA) Influenza Type B (TRICIA) Influenza A & B Note 06/26/22 06/26/22 06:04 07:35 MCV 91.6 MCH 30.6 MCHC 33.4 RDW 14.0 Plt Count 292 MPV 10.6 Immature Gran % (Auto) 1.5 H Neut % (Auto) 89.4 H Lymph % (Auto) 3.9 L Towner % (Auto) 4.5 Eos % (Auto) 0.1 Baso % (Auto) 0.6 Lymph # (Auto) 0.4 L Towner # (Auto) 0.5 Eos # (Auto) 0.0 Baso # (Auto) 0.1 Abs Immat Gran (auto) 0.16 H Absolute Neuts (auto) 9.6 H Absolute Nucleated RBC 0.000 Nucleated RBC % (auto) 0.0 Anion Gap Estim Creat Clear Calc Estimated GFR POC Glucose 113 Random Glucose Calcium Phosphorus Magnesium Albumin Triglycerides Urine Color Urine Appearance Urine pH Ur Specific [place] Urine Protein Urine Glucose (UA) Urine Ketones Urine Blood Urine Nitrite Ur Leukocyte Esterase COVID-19 (MAGY) COVID-19 Clin Com Influenza Type A (TRICIA) Influenza Type B (TRICIA) Influenza A & B Note <Deedee Long PA-C - Last Filed: 06/26/22 08:28> Procedures Date of Service Date of Service: 06/26/22 <Deedee Long PA-C - Last Filed: 06/26/22 08:28> Progress Note: A&P Assessment and plan (1) S/P exploratory laparotomy: Status: Acute <Deedee Long PA-C - Last Filed: 06/26/22 08:28> Assessment and Plan: continues to feel well denies abdominal pain continues to have BMs no nausea or vomiting wants to try food start on full liquids out of bed to recliner okay to DC TPN after current bag seen and examined independently <Francisco Guerrero MD - Last Filed: 06/26/22 12:19> (2) Small bowel obstruction: Status: Acute <Deedee Long PA-C - Last Filed: 06/26/22 08:28> Assessment and Plan: 76 year old male admitted with SBO that required laparotomy, [facility] on 06/10/22. Developed recurrent SBO/ileus requiring NGT reinsertion, TPN initiated. Now improved with NGT removed over the weekend and started on clears. He had a low grade fever yesterday and persistently elevAted WBC count. UA, CXR, covid/influenza obtained. UA, resp panel negative. WBC is now normal without initiation of abx and he is now afebrile. ?Atelectasis. Await CXR official read but unlikely infectious given normal WBC count this morning. Will advance to full liquids- slow advancement given recurrence. Cont TPN until PO intake adequate. Encouraged OOB/ambulation. Cont to monitor for fever. <Deedee Long PA-C - Last Filed: 06/26/22 08:28> Time Spent With Patient Time: Total time managing care of this patient today ____ minutes. <Deedee Long PA-C - Last Filed: 06/26/22 08:28> Quality Stroke Does the patient have a stroke diagnosis?: No <Deedee Long PA-C - Last Filed: 06/26/22 08:28> VTE Prior VTE?: No <Deedee Long PA-C - Last Filed: 06/26/22 08:28> VTE Risk Level:: Surgical - low <Deedee Long PA-C - Last Filed: 06/26/22 08:28> VTE Device Contraindication: N/A - Device Ordered <Deedee Long PA-C - Last Filed: 06/26/22 08:28> VTE Drug Contraindication: N/A - Med Ordered <Deedee Long PA-C - Last Filed: 06/26/22 08:28>
[2022-06-26] MEDS: LORazepam 1 MG TABLET PO ×2 (08:45→21:19)
[2022-06-26] MEDS: amLODIPine Besylate 10 MG TABLET NG-TUBE (08:45)
[2022-06-26] MEDS: Venlafaxine HCl ER 150 MG CAP.ER.24H PO (08:45)
[2022-06-26] MEDS: Venlafaxine HCl ER 37.5 MG CAP.ER.24H PO (08:45)
[2022-06-26] MEDS: Divalproex Sodium ER 500 MG TAB.ER.24H PO (08:45)
[2022-06-26] MEDS: Famotidine 20 MG TABLET PO ×2 (08:45→21:19)
[2022-06-26] MEDS: 0.9 % Sodium Chloride Flush 10 ML SYRINGE 5 ML IVFLUSH ×3 (08:46→21:25)
[2022-06-26] MEDS: 0.9 % Sodium Chloride Flush 3 ML SYRINGE IVFLUSH ×3 (08:46→21:27)
--- NOTE | 2022-06-26 10:11 | PM.EVENT ---
Event Note Date of Service: 06/26/22 Event Note: No recurrent fevers, vitals otherwise stable. UA negative. CXR negative. No evidence of infection. Etiology of fever unclear but has resolved. Pt has no complaints except for headache which has improved since yesterday. Has chronic headaches and takes fioricet with good effect. Continue fioricet. Thank you for allowing me to participate in this consult. Signing off at this time. Please do not hesitate to call for further questions. Time Spent With Patient Time: Total time managing care of this patient today ____ minutes.
[2022-06-26 11:25] LABS: Glucose, Whole Blood 114 mg/dL (60-115)
[2022-06-26] MEDS: Enoxaparin Sodium 40 MG/0.4 ML SYRINGE SUBCUT (13:04)
[2022-06-26 16:18] LABS: Glucose, Whole Blood 103 mg/dL (60-115)
[2022-06-26 20:55] LABS: Glucose, Whole Blood 78 mg/dL (60-115)
[2022-06-26] MEDS: Latanoprost 0.005 % Ophth Sol 2.5 ML DROPS 1 DROP EYE-BOTH (21:19)
[2022-06-27 03:53] VITALS: BP 132/72; PULSE 80; RESP 18; TEMP 36.4; O2SAT 96
[2022-06-27] MEDS: HYDROmorphone HCl 0.5 MG/0.5 ML SYRINGE IVPUSH (04:43)
[2022-06-27 07:01] LABS: Anion Gap 13 (12-20); Blood Urea Nitrogen 26 mg/dL (9-16); Calcium 8.2 mg/dL (8.4-10.2); Carbon Dioxide 20 mmol/L (22-29); Chloride 106 mmol/L (96-108); Creatinine Clr Calc Pharmacy 64.7; Estimated Glomerular Filt Rate 56; Glucose Random 93 mg/dL (60-115); Potassium 4.4 mmol/L (3.3-5.1); Sodium 135 mmol/L (135-145)
[2022-06-27 07:25] VITALS: BP 120/69; PULSE 71; RESP 18; TEMP 36.4; O2SAT 95
[2022-06-27 07:30] LABS: Glucose, Whole Blood 96 mg/dL (60-115)
[2022-06-27 08:00] VITALS: BMI 32.2
--- NOTE | 2022-06-27 08:15 | PM.PNGS ---
Subjective Subjective Date of Service: 06/27/22 Interval history: says he is fine feels well accdg to nursing staff - he did not eat well yesterday continues to have BMs denies pain on abdomen had been asking for Dilaudid for headache Physical Exam Vital Signs: Vital Signs: Last Vital Signs Temp 97.6 F 06/27/22 07:25 Pulse 71 06/27/22 07:25 Resp 18 06/27/22 07:25 BP 120/69 06/27/22 07:25 Pulse Ox 95 06/27/22 07:25 O2 Del Method 06/27/22 07:25 O2 Flow Rate 1 06/24/22 12:00 BMI result Body Mass Index 32.8 Const: General: comfortable and no acute distress Resp: Effort & Inspection: normal respiratory effort Cardio: Rate: regular rate GI: Palpation (GI): Soft to palpation, not firm, nontender and no guarding Objective Data Active Medications Acetaminophen (Acetaminophen 325 Mg Tablet) 650 mg PO Q4H PRN PRN Reason: Headache Last Admin: 06/25/22 12:17 Dose: 650 mg Documented By: ASHWIN Acetaminophen/Butalbital/Caffeine (Butalb/Acetamin/Caff 50/325/40 Tablet) 1 tab PO Q4H PRN PRN Reason: headache Last Admin: 06/22/22 20:52 Dose: 1 tab Documented By: STONE Acetaminophen/Butalbital/Caffeine (Butalb/Acetamin/Caff 50/325/40 Tablet) 2 tab PO Q4H PRN PRN Reason: Headache Last Admin: 06/26/22 16:51 Dose: 2 tab Documented By: QUAN Albuterol Sulfate (Albuterol Sulfate 90 Mcg 8 Gm Inhaler) 2 puff INHALE Q6H PRN PRN Reason: shortness of breath or wheezing Amlodipine Besylate (Amlodipine Besylate 10 Mg Tablet) 10 mg NG-TUBE DAILY [facility]; Protocol Last Admin: 06/26/22 08:45 Dose: 10 mg Documented By: QUAN Benzocaine (Throat Lozenge, Medicated Lozenge) 1 lozenge MUCOUS MEM Q2H PRN PRN Reason: Sore Throat Last Admin: 06/21/22 12:19 Dose: 1 lozenge Documented By: PRABHJOT Divalproex Sodium (Divalproex Sodium Er 500 Mg Tab.Er.24h) 500 mg PO DAILY [facility] Last Admin: 06/26/22 08:45 Dose: 500 mg Documented By: QUAN Docusate Sodium (Docusate Sodium 100 Mg Capsule) 100 mg PO BID [facility] Last Admin: 06/26/22 21:25 Dose: Not Given Documented By: RYAN Non-Admin Reason: loose stools Enoxaparin Sodium (Enoxaparin Sodium 40 Mg/0.4 Ml Syringe) 40 mg SUBCUT Q24H [facility] Last Admin: 06/26/22 13:04 Dose: 40 mg Documented By: QUAN Famotidine (Famotidine 20 Mg Tablet) 20 mg PO BID [facility] Last Admin: 06/26/22 21:19 Dose: 20 mg Documented By: RYAN Fluticasone Propionate (Fluticasone Propionate Nasal 16 Gm Innis) 1 spray NOSTRIL-B BID PRN PRN Reason: Allergy Symptoms Fluticasone/Vilanterol (Fluticasone/Vilanterol 100/25 Blst.W.Dev) 1 puff INHALE RDAILY [facility] Last Admin: 06/27/22 07:30 Dose: Not Given Documented By: IRENA Non-Admin Reason: Patient Asleep Hydromorphone HCl (Hydromorphone Hcl 0.5 Mg/0.5 Ml Syringe) 0.5 mg IVPUSH Q3H PRN; Protocol PRN Reason: Pain, Severe (Pain Scale 7-10) Last Admin: 06/27/22 04:43 Dose: 0.5 mg Documented By: RYAN Latanoprost (Latanoprost 0.005 % Ophth Saira 2.5 Ml Drops) 1 drop EYE-BOTH BEDTIME [facility] Last Admin: 06/26/22 21:19 Dose: 1 drop Documented By: RYAN Lorazepam (Lorazepam 1 Mg Tablet) 1 mg PO DAILY PRN PRN Reason: Anxiety Last Admin: 06/24/22 02:44 Dose: 1 mg Documented By: STONE Lorazepam (Lorazepam 1 Mg Tablet) 1 mg PO BID [facility] Last Admin: 06/26/22 21:19 Dose: 1 mg Documented By: RYAN Naloxone HCl (Naloxone Hcl Nasal 4 Mg Innis) 4 mg NOSTRILALT ONCE PRN PRN Reason: Opiate Reversal Ondansetron HCl (Ondansetron Hcl 4 Mg/2 Ml Vial) 4 mg IVPUSH Q8H PRN PRN Reason: Nausea and Vomiting Last Admin: 06/21/22 10:46 Dose: 4 mg Documented By: PRABHJOT Oxycodone HCl (Oxycodone Hcl Immed Release 5 Mg Tablet) 5 mg PO Q4H PRN PRN Reason: Pain, Moderate (Pain Scale 4-6 Last Admin: 06/24/22 11:47 Dose: 5 mg Documented By: RHODA Oxycodone HCl (Oxycodone Hcl Immed Release 5 Mg Tablet) 10 mg PO Q4H PRN PRN Reason: Pain, Severe (Pain Scale 7-10) Last Admin: 06/25/22 13:31 Dose: 10 mg Documented By: BINU Pharmacy Consult (Consult Rx Perform Med Rec) 1 each MISCELLANE ONCE PRN PRN Reason: Consult order Sodium Chloride (0.9 % Sodium Chloride Flush 3 Ml Syringe) 3 ml IVFLUSH QSHIFT [facility] Last Admin: 06/26/22 21:27 Dose: 3 ml Documented By: RYAN Sodium Chloride (0.9 % Sodium Chloride Flush 10 Ml Syringe) 5 ml IVFLUSH TID [facility] Last Admin: 06/26/22 21:25 Dose: 5 ml Documented By: RYAN Venlafaxine HCl (Venlafaxine Hcl Er 37.5 Mg Cap.Er.24h) 37.5 mg PO DAILY [facility] Last Admin: 06/26/22 08:45 Dose: 37.5 mg Documented By: QUAN Venlafaxine HCl (Venlafaxine Hcl Er 150 Mg Cap.Er.24h) 150 mg PO DAILY [facility] Last Admin: 06/26/22 08:45 Dose: 150 mg Documented By: QUAN Labs 06/26/22 06:04 06/27/22 05:40 Labs: Laboratory Results - last 24 hr 06/26/22 06/26/22 06/26/22 11:17 16:11 20:47 Anion Gap Estim Creat Clear Calc Estimated GFR POC Glucose 114 103 78 Random Glucose Calcium 06/27/22 06/27/22 05:40 07:24 Anion Gap 13 Estim Creat Clear Calc 64.7 Estimated GFR 56 POC Glucose 96 Random Glucose 93 Calcium 8.2 L Microbiology Microbiology Results: Microbiology 06/25/22 17:06 Blood Culture - Preliminary Blood - Venous No growth after 24 hours. 06/25/22 17:06 Blood Culture - Preliminary Blood - Venous No growth after 24 hours. Procedures Date of Service Date of Service: 06/27/22 Progress Note: A&P Assessment and plan (1) S/P exploratory laparotomy: Status: Acute Assessment and Plan: now with good BMs no N/V advance diet to regular looks comfortable encouraged to get OOB decrease narcotics Hospitalist following Time Spent With Patient Time: Total time managing care of this patient today ____ minutes. Quality Stroke Does the patient have a stroke diagnosis?: No VTE Prior VTE?: No VTE Risk Level:: Surgical - low VTE Device Contraindication: N/A - Device Ordered VTE Drug Contraindication: N/A - Med Ordered
[2022-06-27] MEDS: Famotidine 20 MG TABLET PO ×2 (08:29→19:38)
[2022-06-27] MEDS: LORazepam 1 MG TABLET PO ×3 (08:29→19:38)
[2022-06-27] MEDS: Venlafaxine HCl ER 150 MG CAP.ER.24H PO (08:29)
[2022-06-27] MEDS: amLODIPine Besylate 10 MG TABLET NG-TUBE (08:30)
[2022-06-27] MEDS: 0.9 % Sodium Chloride Flush 10 ML SYRINGE 5 ML IVFLUSH ×3 (08:30→19:41)
[2022-06-27] MEDS: Venlafaxine HCl ER 37.5 MG CAP.ER.24H PO (08:30)
[2022-06-27] MEDS: Divalproex Sodium ER 500 MG TAB.ER.24H PO (08:30)
[2022-06-27] MEDS: 0.9 % Sodium Chloride Flush 3 ML SYRINGE IVFLUSH ×3 (08:32→19:38)
[2022-06-27 09:11] LABS: Basophils Absolute Auto 0.1 X10*3/uL (0.0-0.2); Basophils Percent Auto 0.7 % (0-2); Eosinophils Absolute Auto 0.1 X10*3/uL (0.0-0.4); Eosinophils Percent Auto 0.6 % (0-4); Hematocrit 37.9 % (42.0-52.0); Hemoglobin 12.6 g/dl (14.0-18.0); Imm Gran Abs Auto 0.06 X10*3/uL (0.00-0.03); Imm Gran Pct Auto 0.6 % (0.0-0.4); Lymphocytes Absolute Auto 2.9 X10*3/uL (1.2-4.9); Lymphocytes Percent Auto 27.3 % (20-40); MANUAL DIFF FLAG SCAN; Mean Corpuscular HGB Conc 33.2 g/dl (31.0-36.0); Mean Corpuscular Hemoglobin 30.4 pg (27.0-33.0); Mean Corpuscular Volume 91.5 fL (80.0-98.0); Mean Platelet Volume 11.3 fL (9.4-12.4); Monocytes Absolute Auto 1.6 X10*3/uL (0.1-1.2); Monocytes Percent Auto 15.3 % (2-11); Neutrophils Absolute Auto 5.9 x10*3/uL (2.0-8.3); Neutrophils Percent Auto 55.5 % (45-73); Platelet Count 300 X10*3/uL (160-400); Red Blood Count 4.14 X10*6/uL (4.60-5.80); Red Cell Distribution Width 14.1 % (11.0-16.0); SCAN SMEAR FLAG 1; White Blood Count 10.6 X10*3/uL (4.8-10.8)
[2022-06-27 09:16] LABS: INTERNATIONAL NORM RATIO 1.1 (0.9-1.1); Prothrombin Time 12.5 SEC (10.0-13.1)
[2022-06-27 09:19] LABS: Triglycerides 199 mg/dL
[2022-06-27 09:36] LABS: SLIDE REVIEW VERIFIED
[2022-06-27 11:08] LABS: Glucose, Whole Blood 91 mg/dL (60-115)
--- NOTE | 2022-06-27 12:46 | MHC.CLN ---
F/U TPN DISCONTINUED. DIET ADVANCED ON 06/27 TO REGULAR, LOW FIBER WITH ENSURE TID. SUPPLEMENT PROVIDES ADDITIONAL 1050 KCALS, 60 G PROTEIN. SHOWS WEIGHT LOSS X 30 DAYS -4.9%, NOT SIGNIFICANT. FOLLOW FOR DIET TOLERANCE AND INTAKE.
[2022-06-27] MEDS: Enoxaparin Sodium 40 MG/0.4 ML SYRINGE SUBCUT (13:25)
[2022-06-27] MEDS: oxyCODONE HCl Immed Release 5 MG TABLET 10 MG PO ×2 (13:25→17:24)
[2022-06-27 14:59] VITALS: BP 114/83; PULSE 88; RESP 18; TEMP 36.4; O2SAT 98
[2022-06-27 16:06] LABS: Glucose, Whole Blood 85 mg/dL (60-115)
[2022-06-27 19:15] VITALS: BP 120/65; PULSE 82; RESP 18; TEMP 36.4; O2SAT 93
[2022-06-27] MEDS: Docusate Sodium 100 MG CAPSULE PO (19:38)
[2022-06-27] MEDS: Latanoprost 0.005 % Ophth Sol 2.5 ML DROPS 1 DROP EYE-BOTH (19:50)
[2022-06-27 20:53] LABS: Glucose, Whole Blood 97 mg/dL (60-115)
[2022-06-28 03:49] VITALS: BP 125/78; PULSE 85; RESP 18; TEMP 36.1; O2SAT 95
[2022-06-28] MEDS: oxyCODONE HCl Immed Release 5 MG TABLET 10 MG PO ×4 (04:27→23:59)
[2022-06-28 06:29] LABS: Anion Gap 13 (12-20); Blood Urea Nitrogen 21 mg/dL (9-16); Calcium 8.2 mg/dL (8.4-10.2); Carbon Dioxide 23 mmol/L (22-29); Chloride 103 mmol/L (96-108); Creatinine Clr Calc Pharmacy 59.9; Estimated Glomerular Filt Rate 52; Glucose Random 89 mg/dL (60-115); Potassium 4.1 mmol/L (3.3-5.1); Sodium 135 mmol/L (135-145)
[2022-06-28 07:40] LABS: Glucose, Whole Blood 81 mg/dL (60-115)
[2022-06-28 07:47] LABS: Glucose, Whole Blood 81 mg/dL (60-115)
[2022-06-28] MEDS: Fluticasone/Vilanterol 100/25 BLST.W.DEV 1 PUFF INHALE (07:49)
[2022-06-28 07:50] VITALS: PULSE 88; RESP 18; O2SAT 94
--- NOTE | 2022-06-28 07:53 | P.PNGS_ITS ---
Subjective Subjective Date of Service: 06/29/22 <Deedee Long PA-C - Last Filed: 06/29/22 12:18> 06/28/22 <Francisco Guerrero MD - Last Filed: 06/28/22 14:53> Interval history: Nursing concerned and feels he sun downs from 3p on. Becomes confused, does not listen but remains alert. Lives home alone. Overall, he feels better. Tolerated solid diet yesterday. Passing flatus and loose stools. <eDedee Long PA-C - Last Filed: 06/29/22 12:18> Physical Exam Vital Signs: Vital Signs: Last Vital Signs Temp 97.0 F 06/28/22 03:49 Pulse 88 06/28/22 07:50 Resp 18 06/28/22 07:50 BP 125/78 06/28/22 03:49 Pulse Ox 95 06/28/22 03:49 O2 Del Method 06/28/22 03:49 O2 Flow Rate 1 06/24/22 12:00 BMI result Body Mass Index 32.2 <Deedee Long PA-C - Last Filed: 06/29/22 12:18> Const: General: comfortable, no acute distress and alert <Deedee Long PA-C - Last Filed: 06/29/22 12:18> Resp: Effort & Inspection: normal respiratory effort <Deedee Long PA-C - Last Filed: 06/29/22 12:18> GI: Inspection: Yes distended and Yes incision (clean, musa removed) <Deedee Long PA-C - Last Filed: 06/29/22 12:18> Palpation (GI): Soft to palpation, nontender, no guarding and not rigid <Deedee Long PA-C - Last Filed: 06/29/22 12:18> Percussion: Yes tympanic to percussion <ROYAL Guzman Last Filed: 06/29/22 12:18> Skin: General skin exam: no rashes or lesions noted <Deedee Long PA-C - Last Filed: 06/29/22 12:18> Objective Data Active Medications Acetaminophen (Acetaminophen 325 Mg Tablet) 650 mg PO Q4H PRN PRN Reason: Headache Last Admin: 06/25/22 12:17 Dose: 650 mg Documented By: ASHWIN Acetaminophen/Butalbital/Caffeine (Butalb/Acetamin/Caff 50/325/40 Tablet) 2 tab PO Q4H PRN PRN Reason: Headache Last Admin: 06/26/22 16:51 Dose: 2 tab Documented By: QUAN Albuterol Sulfate (Albuterol Sulfate 90 Mcg 8 Gm Inhaler) 2 puff INHALE Q6H PRN PRN Reason: shortness of breath or wheezing Amlodipine Besylate (Amlodipine Besylate 10 Mg Tablet) 10 mg NG-TUBE DAILY [facility]; Protocol Last Admin: 06/27/22 08:30 Dose: 10 mg Documented By: QUAN Benzocaine (Throat Lozenge, Medicated Lozenge) 1 lozenge MUCOUS MEM Q2H PRN PRN Reason: Sore Throat Last Admin: 06/21/22 12:19 Dose: 1 lozenge Documented By: PRABHJOT Divalproex Sodium (Divalproex Sodium Er 500 Mg Tab.Er.24h) 500 mg PO DAILY [facility] Last Admin: 06/27/22 08:30 Dose: 500 mg Documented By: QUAN Docusate Sodium (Docusate Sodium 100 Mg Capsule) 100 mg PO BID [facility] Last Admin: 06/27/22 19:38 Dose: 100 mg Documented By: RYAN Enoxaparin Sodium (Enoxaparin Sodium 40 Mg/0.4 Ml Syringe) 40 mg SUBCUT Q24H [facility] Last Admin: 06/27/22 13:25 Dose: 40 mg Documented By: BINU Famotidine (Famotidine 20 Mg Tablet) 20 mg PO BID [facility] Last Admin: 06/27/22 19:38 Dose: 20 mg Documented By: RYAN Fluticasone Propionate (Fluticasone Propionate Nasal 16 Gm [place]) 1 spray NOSTRIL-B BID PRN PRN Reason: Allergy Symptoms Fluticasone/Vilanterol (Fluticasone/Vilanterol 100/25 Blst.W.Dev) 1 puff INHALE RDAILY [facility] Last Admin: 06/28/22 07:49 Dose: 1 puff Documented By: HO.BLASCL Latanoprost (Latanoprost 0.005 % Ophth Saira 2.5 Ml Drops) 1 drop EYE-BOTH BEDTIME [facility] Last Admin: 06/27/22 19:50 Dose: 1 drop Documented By: RYAN Lorazepam (Lorazepam 1 Mg Tablet) 1 mg PO DAILY PRN PRN Reason: Anxiety Last Admin: 06/27/22 13:25 Dose: 1 mg Documented By: BINU Lorazepam (Lorazepam 1 Mg Tablet) 1 mg PO BID [facility] Last Admin: 06/27/22 19:38 Dose: 1 mg Documented By: RYAN Naloxone HCl (Naloxone Hcl Nasal 4 Mg [place]) 4 mg NOSTRILALT ONCE PRN PRN Reason: Opiate Reversal Ondansetron HCl (Ondansetron Hcl 4 Mg/2 Ml Vial) 4 mg IVPUSH Q8H PRN PRN Reason: Nausea and Vomiting Last Admin: 06/21/22 10:46 Dose: 4 mg Documented By: PRABHJOT Oxycodone HCl (Oxycodone Hcl Immed Release 5 Mg Tablet) 5 mg PO Q4H PRN PRN Reason: Pain, Moderate (Pain Scale 4-6 Last Admin: 06/24/22 11:47 Dose: 5 mg Documented By: RHODA Oxycodone HCl (Oxycodone Hcl Immed Release 5 Mg Tablet) 10 mg PO Q4H PRN PRN Reason: Pain, Severe (Pain Scale 7-10) Last Admin: 06/28/22 04:27 Dose: 10 mg Documented By: RYAN Pharmacy Consult (Consult Rx Perform Med Rec) 1 each MISCELLANE ONCE PRN PRN Reason: Consult order Sodium Chloride (0.9 % Sodium Chloride Flush 3 Ml Syringe) 3 ml IVFLUSH QSHIFT [facility] Last Admin: 06/27/22 19:38 Dose: 3 ml Documented By: RYAN Sodium Chloride (0.9 % Sodium Chloride Flush 10 Ml Syringe) 5 ml IVFLUSH TID [facility] Last Admin: 06/27/22 19:41 Dose: 5 ml Documented By: RYAN Venlafaxine HCl (Venlafaxine Hcl Er 37.5 Mg Cap.Er.24h) 37.5 mg PO DAILY [facility] Last Admin: 06/27/22 08:30 Dose: 37.5 mg Documented By: QUAN Venlafaxine HCl (Venlafaxine Hcl Er 150 Mg Cap.Er.24h) 150 mg PO DAILY [facility] Last Admin: 06/27/22 08:29 Dose: 150 mg Documented By: QUAN <Deedee Long PA-C - Last Filed: 06/29/22 12:18> Labs CBC & Chem 7: 06/27/22 08:45 06/28/22 05:17 <Deedee Long PA-C - Last Filed: 06/29/22 12:18> Labs: Laboratory Results - last 24 hr 06/27/22 06/27/22 06/27/22 08:45 08:45 08:45 MCV 91.5 MCH 30.4 MCHC 33.2 RDW 14.1 Plt Count 300 MPV 11.3 Immature Gran % (Auto) 0.6 H Neut % (Auto) 55.5 Lymph % (Auto) 27.3 [place] % (Auto) 15.3 H Eos % (Auto) 0.6 Baso % (Auto) 0.7 Lymph # (Auto) 2.9 [place] # (Auto) 1.6 H Eos # (Auto) 0.1 Baso # (Auto) 0.1 Abs Immat Gran (auto) 0.06 H Absolute Neuts (auto) 5.9 Absolute Nucleated RBC 0.000 Nucleated RBC % (auto) 0.0 Smear Tech's Comments VERIFIED PT 12.5 INR 1.1 Anion Gap Estim Creat Clear Calc Estimated GFR POC Glucose Random Glucose Calcium Triglycerides 199 06/27/22 06/27/22 06/27/22 11:00 16:03 20:48 MCV MCH MCHC RDW Plt Count MPV Immature Gran % (Auto) Neut % (Auto) Lymph % (Auto) [place] % (Auto) Eos % (Auto) Baso % (Auto) Lymph # (Auto) [place] # (Auto) Eos # (Auto) Baso # (Auto) Abs Immat Gran (auto) Absolute Neuts (auto) Absolute Nucleated RBC Nucleated RBC % (auto) Smear Tech's Comments PT INR Anion Gap Estim Creat Clear Calc Estimated GFR POC Glucose 91 85 97 Random Glucose Calcium Triglycerides 06/28/22 06/28/22 06/28/22 05:17 07:37 07:44 MCV MCH MCHC RDW Plt Count MPV Immature Gran % (Auto) Neut % (Auto) Lymph % (Auto) [place] % (Auto) Eos % (Auto) Baso % (Auto) Lymph # (Auto) [place] # (Auto) Eos # (Auto) Baso # (Auto) Abs Immat Gran (auto) Absolute Neuts (auto) Absolute Nucleated RBC Nucleated RBC % (auto) Smear Tech's Comments PT INR Anion Gap 13 Estim Creat Clear Calc 59.9 Estimated GFR 52 POC Glucose 81 81 Random Glucose 89 Calcium 8.2 L Triglycerides <Deedee Long PA-C - Last Filed: 06/29/22 12:18> Microbiology Microbiology Results: Microbiology 06/25/22 17:06 Blood Culture - Preliminary Blood - Venous No growth after 48 hours. 06/25/22 17:06 Blood Culture - Preliminary Blood - Venous No growth after 48 hours. <Deedee Long PA-C - Last Filed: 06/29/22 12:18> Procedures Date of Service Date of Service: 06/28/22 <Francisco Guerrero MD - Last Filed: 06/28/22 14:53> Progress Note: A&P Assessment and plan (1) S/P exploratory laparotomy: Status: Acute <Deedee Long PA-C - Last Filed: 06/29/22 12:18> (2) Small bowel obstruction: Status: Acute <Deedee Long PA-C - Last Filed: 06/29/22 12:18> Assessment and Plan: Overall doing well and improved, now with good BMs but remain liquid, obtain c diff. Solid diet as tolerated, nutrition supplements. Resume apixiban. PT recommending STR. Begin dispo planning, discuss with case management. Hopefully d/c over the weekend. Hospitalist following <Deedee Long PA-C - Last Filed: 06/29/22 12:18> Time Spent With Patient Time: Total time managing care of this patient today ____ minutes. <Deedee Long PA-C - Last Filed: 06/29/22 12:18> Quality Stroke Does the patient have a stroke diagnosis?: No <ROYAL Guzman Last Filed: 06/29/22 12:18> VTE Prior VTE?: No <Deedee Long PA-C - Last Filed: 06/29/22 12:18> VTE Risk Level:: Surgical - low <ROYAL Guzman Last Filed: 06/29/22 12:18> VTE Device Contraindication: N/A - Device Ordered <ROYAL Guzman Last Filed: 06/29/22 12:18> VTE Drug Contraindication: N/A - Med Ordered <ROYAL Guzman Last Filed: 06/29/22 12:18>
[2022-06-28 08:00] VITALS: BP 128/85; PULSE 76; RESP 18; TEMP 36.8; O2SAT 93; BMI 32.2
[2022-06-28] MEDS: Venlafaxine HCl ER 37.5 MG CAP.ER.24H PO (08:35)
[2022-06-28] MEDS: amLODIPine Besylate 10 MG TABLET NG-TUBE (08:35)
[2022-06-28] MEDS: Venlafaxine HCl ER 150 MG CAP.ER.24H PO (08:35)
[2022-06-28] MEDS: Famotidine 20 MG TABLET PO ×2 (08:35→20:34)
[2022-06-28] MEDS: LORazepam 1 MG TABLET PO ×3 (08:36→20:34)
[2022-06-28] MEDS: Divalproex Sodium ER 500 MG TAB.ER.24H PO (08:36)
[2022-06-28] MEDS: Docusate Sodium 100 MG CAPSULE PO ×2 (08:36→20:34)
--- NOTE | 2022-06-28 10:58 | P.PNGS_ITS ---
Subjective Subjective Date of Service: 06/28/22 Interval history: Continues to have good BMs Tolerating diet well Denies abdominal pain Complaint of back pain and headaches Physical Exam Vital Signs: Vital Signs: Last Vital Signs Temp 98.3 F 06/28/22 08:00 Pulse 76 06/28/22 08:00 Resp 18 06/28/22 08:00 BP 128/85 06/28/22 08:00 Pulse Ox 93 06/28/22 08:00 O2 Del Method 06/28/22 08:00 O2 Flow Rate 1 06/24/22 12:00 BMI result Body Mass Index 32.2 Const: General: comfortable and no acute distress Resp: Effort & Inspection: normal respiratory effort Cardio: Rate: regular rate GI: Palpation (GI): Soft to palpation, not firm and nontender Objective Data Active Medications Acetaminophen (Acetaminophen 325 Mg Tablet) 650 mg PO Q4H PRN PRN Reason: Headache Last Admin: 06/25/22 12:17 Dose: 650 mg Documented By: ASHWIN Acetaminophen/Butalbital/Caffeine (Butalb/Acetamin/Caff 50/325/40 Tablet) 2 tab PO Q4H PRN PRN Reason: Headache Last Admin: 06/26/22 16:51 Dose: 2 tab Documented By: QUAN Albuterol Sulfate (Albuterol Sulfate 90 Mcg 8 Gm Inhaler) 2 puff INHALE Q6H PRN PRN Reason: shortness of breath or wheezing Amlodipine Besylate (Amlodipine Besylate 10 Mg Tablet) 10 mg NG-TUBE DAILY [facility]; Protocol Last Admin: 06/28/22 08:35 Dose: 10 mg Documented By: FLAQUITO Apixaban (Apixaban 5 Mg Tablet) 5 mg PO BID [facility] Benzocaine (Throat Lozenge, Medicated Lozenge) 1 lozenge MUCOUS MEM Q2H PRN PRN Reason: Sore Throat Last Admin: 06/21/22 12:19 Dose: 1 lozenge Documented By: PRABHJOT Divalproex Sodium (Divalproex Sodium Er 500 Mg Tab.Er.24h) 500 mg PO DAILY [facility] Last Admin: 06/28/22 08:36 Dose: 500 mg Documented By: FLAQUITO Docusate Sodium (Docusate Sodium 100 Mg Capsule) 100 mg PO BID [facility] Last Admin: 06/28/22 08:36 Dose: 100 mg Documented By: FLAQUITO Famotidine (Famotidine 20 Mg Tablet) 20 mg PO BID [facility] Last Admin: 06/28/22 08:35 Dose: 20 mg Documented By: FLAQUITO Fluticasone Propionate (Fluticasone Propionate Nasal 16 Gm [place]) 1 spray NOSTRIL-B BID PRN PRN Reason: Allergy Symptoms Fluticasone/Vilanterol (Fluticasone/Vilanterol 100/25 Blst.W.Dev) 1 puff INHALE RDAILY [facility] Last Admin: 06/28/22 07:49 Dose: 1 puff Documented By: BLAGAY Latanoprost (Latanoprost 0.005 % Ophth Saira 2.5 Ml Drops) 1 drop EYE-BOTH BEDTIME [facility] Last Admin: 06/27/22 19:50 Dose: 1 drop Documented By: RYAN Lorazepam (Lorazepam 1 Mg Tablet) 1 mg PO DAILY PRN PRN Reason: Anxiety Last Admin: 06/27/22 13:25 Dose: 1 mg Documented By: BINU Lorazepam (Lorazepam 1 Mg Tablet) 1 mg PO BID [facility] Last Admin: 06/28/22 08:36 Dose: 1 mg Documented By: FLAQUITO Naloxone HCl (Naloxone Hcl Nasal 4 Mg [place]) 4 mg NOSTRILALT ONCE PRN PRN Reason: Opiate Reversal Ondansetron HCl (Ondansetron Hcl 4 Mg/2 Ml Vial) 4 mg IVPUSH Q8H PRN PRN Reason: Nausea and Vomiting Last Admin: 06/21/22 10:46 Dose: 4 mg Documented By: CASSI-RIVKRAIG Oxycodone HCl (Oxycodone Hcl Immed Release 5 Mg Tablet) 5 mg PO Q4H PRN PRN Reason: Pain, Moderate (Pain Scale 4-6 Last Admin: 06/24/22 11:47 Dose: 5 mg Documented By: RHODA Oxycodone HCl (Oxycodone Hcl Immed Release 5 Mg Tablet) 10 mg PO Q4H PRN PRN Reason: Pain, Severe (Pain Scale 7-10) Last Admin: 06/28/22 04:27 Dose: 10 mg Documented By: RYAN Pharmacy Consult (Consult Rx Perform Med Rec) 1 each MISCELLANE ONCE PRN PRN Reason: Consult order Sodium Chloride (0.9 % Sodium Chloride Flush 3 Ml Syringe) 3 ml IVFLUSH QSHIFT [facility] Last Admin: 06/27/22 19:38 Dose: 3 ml Documented By: RYAN Sodium Chloride (0.9 % Sodium Chloride Flush 10 Ml Syringe) 5 ml IVFLUSH TID [facility] Last Admin: 06/27/22 19:41 Dose: 5 ml Documented By: RYAN Venlafaxine HCl (Venlafaxine Hcl Er 37.5 Mg Cap.Er.24h) 37.5 mg PO DAILY [facility] Last Admin: 06/28/22 08:35 Dose: 37.5 mg Documented By: FLAQUITO Venlafaxine HCl (Venlafaxine Hcl Er 150 Mg Cap.Er.24h) 150 mg PO DAILY [facility] Last Admin: 06/28/22 08:35 Dose: 150 mg Documented By: FLAQUITO Labs 06/27/22 08:45 06/28/22 05:17 Labs: Laboratory Results - last 24 hr 06/27/22 06/27/22 06/27/22 11:00 16:03 20:48 Anion Gap Estim Creat Clear Calc Estimated GFR POC Glucose 91 85 97 Random Glucose Calcium 06/28/22 06/28/22 06/28/22 05:17 07:37 07:44 Anion Gap 13 Estim Creat Clear Calc 59.9 Estimated GFR 52 POC Glucose 81 81 Random Glucose 89 Calcium 8.2 L Microbiology Microbiology Results: Microbiology 06/25/22 17:06 Blood Culture - Preliminary Blood - Venous No growth after 48 hours. 06/25/22 17:06 Blood Culture - Preliminary Blood - Venous No growth after 48 hours. Procedures Date of Service Date of Service: 06/28/22 Progress Note: A&P Assessment and plan (1) S/P exploratory laparotomy: Status: Acute Assessment and Plan: Continues to do well Tolerating diet Good BMs Has been off TPN Re-evaluated by PT - retirement placement recommended for safety issues Discussed this with patient - he is reluctant to go to a retirement Will consult case management coordinator Time Spent With Patient Time: Total time managing care of this patient today ____ minutes. Quality Stroke Does the patient have a stroke diagnosis?: No VTE Prior VTE?: No VTE Risk Level:: Surgical - low VTE Device Contraindication: N/A - Device Ordered VTE Drug Contraindication: N/A - Med Ordered
[2022-06-28] MEDS: 0.9 % Sodium Chloride Flush 10 ML SYRINGE 5 ML IVFLUSH ×3 (11:13→20:34)
[2022-06-28] MEDS: 0.9 % Sodium Chloride Flush 3 ML SYRINGE IVFLUSH ×2 (11:13→16:37)
[2022-06-28 11:21] LABS: Glucose, Whole Blood 96 mg/dL (60-115)
[2022-06-28] MEDS: Apixaban 5 MG TABLET PO ×2 (11:46→20:34)
--- NOTE | 2022-06-28 13:25 | MHC.CM.PN ---
Addendum entered by Jana Arguelles RN 06/28/22 13:35: [facility] WILL [facility]LLMITA FOR D/C. Original Note: EMR REVIEWED, PER SURGERY PT WILL BE MEDICALLY CLEARED BY SATURDAY FOR D/C TO [facility], PER PT HE PREFERS [facility] HOWEVER THEY DO NOT HAVE A BED AVAILABLE, PT REPORTS HE WOULD LIKE TO STAY IN [facility] HOWEVER DID NOT LIKE [facility] WHO ARE ACTUALLY OFFERING BED, CM STILL AWAITING OTHER OFFERS. PT'S HCP YUMIKO DANIELS AT BEDSIDE AND PROVIDED HIS CONTACT INFO [phone] AND EMAIL [email or web address] CM WILL CONT TO [facility] AND D/C NEEDS.
[2022-06-28 15:25] VITALS: BP 143/84; PULSE 58; RESP 18; TEMP 36.7; O2SAT 93
[2022-06-28 19:57] VITALS: BP 99/59; PULSE 82; RESP 16; TEMP 36.3; O2SAT 93
[2022-06-28] MEDS: Latanoprost 0.005 % Ophth Sol 2.5 ML DROPS 1 DROP EYE-BOTH (20:35)
[2022-06-29] MEDS: 0.9 % Sodium Chloride Flush 3 ML SYRINGE IVFLUSH ×4 (00:02→21:15)
[2022-06-29 03:02] VITALS: BP 147/84; PULSE 93; RESP 20; TEMP 37.2; O2SAT 95
[2022-06-29] MEDS: Acetaminophen 325 MG TABLET 650 MG PO (03:27)
[2022-06-29] MEDS: oxyCODONE HCl Immed Release 5 MG TABLET 10 MG PO ×2 (03:27→06:57)
[2022-06-29 06:44] LABS: Anion Gap 17 (12-20); Blood Urea Nitrogen 18 mg/dL (9-16); Calcium 8.1 mg/dL (8.4-10.2); Carbon Dioxide 20 mmol/L (22-29); Chloride 105 mmol/L (96-108); Estimated Glomerular Filt Rate 49; Glucose Random 87 mg/dL (60-115); Sodium 138 mmol/L (135-145)
[2022-06-29 07:52] VITALS: BP 103/74; PULSE 84; RESP 18; TEMP 36.3; O2SAT 95
[2022-06-29 08:00] VITALS: PULSE 84
[2022-06-29 08:09] VITALS: PULSE 79; RESP 18; O2SAT 95
[2022-06-29] MEDS: Fluticasone/Vilanterol 100/25 BLST.W.DEV 1 PUFF INHALE (08:09)
[2022-06-29 08:35] LABS: Glucose, Whole Blood 92 mg/dL (60-115)
[2022-06-29] MEDS: LORazepam 1 MG TABLET PO ×2 (08:39→15:44)
[2022-06-29] MEDS: Famotidine 20 MG TABLET PO ×2 (08:39→21:13)
[2022-06-29] MEDS: Divalproex Sodium ER 500 MG TAB.ER.24H PO (08:39)
[2022-06-29] MEDS: Apixaban 5 MG TABLET PO ×2 (08:40→21:13)
[2022-06-29] MEDS: Venlafaxine HCl ER 37.5 MG CAP.ER.24H PO (08:40)
[2022-06-29] MEDS: Docusate Sodium 100 MG CAPSULE PO ×2 (08:40→21:13)
[2022-06-29] MEDS: Venlafaxine HCl ER 150 MG CAP.ER.24H PO (08:40)
[2022-06-29] MEDS: amLODIPine Besylate 10 MG TABLET NG-TUBE (08:40)
--- NOTE | 2022-06-29 10:58 | P.DS_ITS ---
DS: Providers Provider Date of Service: 06/29/22 Date of admission: 06/09/22 00:06 Date of discharge: 07/02/22 Primary care physician: Thania Almaraz MD Attending physician on admission: Lorrie Dominguez Consults: 06/09/22 10:58 Consult to Hospitalist Routine Consulting Provider: Hospitalist Reason For Exam: medical management Attending physician on discharge: Lorrie Dominguez DS: Transfer Hospital Acceptance Name of Facility: [facility] DS: Diagnosis Discharge Diagnosis (1) S/P exploratory laparotomy: Status: Acute (2) Small bowel obstruction: Status: Acute DS: Summary Hospital Course Hospital Course: HPI AT ADMISSION: Ottoniel Salas is a 76 year old male who comes into the ER with 4 day history of abdominal pain and nausea and vomiting. He has had many abdominal surgeries in the past from vagotomy in his teens to colonic resection for diverticulitis and open yumi and a hernia repair with mesh. He says he has been having colonoscopies regularly and is due for another one. He says his abdomen is always large and distended because of the hernia. He lives alone. He is also anticoagulated he says for clots - not PE or lung issues. He also has had prostate cancer and had radiation for that. It seems like he hasnt had many episodes of bowel obstructions in the past despite his many abdominal surgeries. HOSPITAL COURSE: He was admitted to the surgical service and and conservative management was initiated with NGT, NPO status and IV hydration. Hospitalist service was consulted for management of his medical comorbidities. His apixiban was held for possible surgical intervention. His symptoms however worsened and still had high NG output. As a result, it was decided to take him to the OR for exploration. On 06/10/22, an exploratory laparotomy, lysis of adhesions was performed by Dr. Dominguez without complication. The patient had extensive adhesions and interloop area just under the anterior abdominal wall mesh which was consistent with the area of obstruction seen on imaging. He had a very slow recovery course. He initially did well post operatively. His daily was removed on POD #1. He began passing flatus and moving his bowels. He was ambulated. He has a protuberant abdomen at baseline and his distention decreased. His NGT was removed after a few days post operatively. His diet was gradually advanced to clear liquids and then solid. He began vomiting after being advanced to a solid diet and had increasing abdominal distention. NGT was therefore placed again with evacuation of over a liter of fluid. Repeat CT scan was obtained which showed dilated stomach and small bowel. A PICC line was ordered and TPN initiated. His labs were followed. His activity was increased. His symptoms improved and GI function returned after a couple days and NGT output decreased. His NGT was removed and his diet slowly advanced to clear liquids, full liquids and then solid diet. His TPN was discontinued once his PO intake was adequate. His skin musa were removed. Dispo planning was initiated. His apixiban was restarted. PT recommended STR. This was arranged. His PICC line was removed. He was initially planned to be discharged on 06/30/22 but developed diarrhea and abd pain. Cdiff was obtained which was negative. His symptoms improved. On 07/02/22, he was tolerating a solid diet without N/V and had good GI function. His abd was protuberant but soft with a clean incision. He was transferred to [facility] on 07/02/22 in stable condition. Status at Discharge Functional status at discharge: uses cane/walker Overall status at discharge: patient is progressing back to baseline Time Spent with Patient Time attestation: Total time managing care of this patient today ____ minutes. Discharge coordination time: Greater than 30 minutes Quality: Safe Use of Opioids Does Pt have an Active Cancer Diagnosis on the Problem List?: No Quality: Stroke Does the patient have a stroke diagnosis?: No Physical Exam Vital Signs: Vital Signs: Last Vital Signs Temp 97.4 F 06/29/22 07:52 Pulse 79 06/29/22 08:09 Resp 18 06/29/22 08:09 BP 103/74 06/29/22 07:52 Pulse Ox 95 06/29/22 07:52 O2 Del Method 06/29/22 07:52 O2 Flow Rate 1 06/24/22 12:00 BMI result Body Mass Index 32.2 Const: Orientation/consciousness: patient oriented x3 Eyes: Sclerae: sclerae normal Resp: Effort & Inspection: normal respiratory effort Cardio: Rate: regular rate GI: Other: protuberant (baseline) Inspection: Yes distended (softly) and Yes incision (clean) Palpation (GI): Soft to palpation, nontender, no guarding and not rigid Skin: General skin exam: no rashes or lesions noted Neuro: General: patient oriented x3 DS: Data Data Completed and Pending Labs on day of discharge: Laboratory Results - last 24 hr 06/28/22 06/29/22 06/29/22 11:11 05:28 07:51 Sodium 138 Potassium 4.0 Chloride 105 Carbon Dioxide 20 L Anion Gap 17 BUN 18 H Creatinine 1.42 H Estim Creat Clear Calc 57.0 Estimated GFR 49 POC Glucose 96 92 Random Glucose 87 Calcium 8.1 L Preliminary micro results at discharge 06/25/22 17:06 Blood Culture - Preliminary Blood - Venous No growth after 48 hours. 06/25/22 17:06 Blood Culture - Preliminary Blood - Venous No growth after 48 hours. Discharge Plan Discharge Anticipated Discharge Date/Time: 06/30/22 16:43 Patient Disposition: Xfer SNF Discharge Diagnosis: small bowel obstruction Referrals: [facility] [place] [Outside] - 1 Day (SHORT TERM REHAB) Francisco Guerrero MD [Physician] - 2 Weeks Po,Thania Childs MD [Primary Care Provider] - 1 Week Discharge Medications: New docusate sodium [Colace] 100 mg capsule 100 mg PO BID Qty: 60 2RF oxycodone 5 mg tablet 5 mg PO Q4H PRN (Reason: pain) Qty: 12 0RF Rx Instructions: Partial Fill upon patient request. Continued (DME) BD Safety-Jackie Detachable Needl 3 mL 25 gauge x 5/8 syringe See Rx Instructions .ROUTE .MEDSUPPLY Qty: 100 12RF Rx Instructions: As directed fexofenadine 180 mg tablet 180 mg PO DAILY PRN (Reason: allergy symptoms) Qty: 90 3RF albuterol sulfate [ProAir HFA] 90 mcg/actuation HFA aerosol inhaler 2 puff inhalation Q6H PRN (Reason: shortness of breath or wheezing) Qty: 8.5 0RF amlodipine 10 mg tablet 10 mg PO DAILY Qty: 90 2RF apixaban 5 mg tablet 5 mg PO BID 90 Days Qty: 180 2RF tzstwmadxw-zrzkwndyypfnp-bhen 50-325-40 mg tablet 1 tab PO BEDTIME PRN (Reason: Migraine Headache) lorazepam 1 mg tablet 1 tab PO BID venlafaxine 150 mg capsule,extended release 24hr 150 mg PO DAILY Rx Instructions: take with 37.5mg for total dose of 187.5mg venlafaxine 37.5 mg capsule,extended release 24hr 1 cap PO DAILY Rx Instructions: take with 150mg for total dose of 187.5mg tadalafil 5 mg tablet 1 tab PO DAILY latanoprost 0.005 % drops 1 drp ophthalmic (eye) BEDTIME lorazepam 1 mg tablet 1 mg PO DAILY PRN (Reason: Anxiety) fluticasone propionate 50 mcg/actuation spray,suspension 1 spray intranasal BID PRN (Reason: Allergy Symptoms) Rx Instructions: instill one spray into each nostril Gemtesa 75 mg tablet 1 tab PO DAILY omeprazole 40 mg capsule,delayed release(DR/EC) 40 mg PO DAILY@0630 cyanocobalamin (vitamin B-12) 1,000 mcg/mL solution 1,000 mcg subcut QMONTH divalproex 500 mg tablet,delayed release (DR/EC) 500 mg PO DAILY ferrous sulfate [Feosol] 325 mg (65 mg iron) tablet 325 mg PO DAILY Qty: 90 2RF Advair HFA 45-21 mcg/actuation HFA aerosol inhaler 2 puff inhalation BID Discharge Orders: Discharge Order (Routine); Ordered 07/02/22 Ordered By: Francisco Guerrero Diet: Advance to usual diet Activity on Discharge: No heavy lifting Stand Alone Forms: Patient Portal Discharge page Activity Restrictions/Additional Instructions: If the incision area is tender, you may apply an ice pack for short intervals (No more than 20 minutes on, followed by at least 20 minutes off). Do not apply heat. Do not use creams, lotions, or topical antibiotics unless instructed to do so by your surgeon. These can cause infection or allergic reaction. OK to shower No lifting more than 20 lbs No strenuous activities Call the office for follow-up in 2 weeks - with Dr. Guerrero Call Your Doctor If: -Your temperature exceeds 101.5? F -You experience excessive pain or swelling -You have an unexpected reaction to medication -You have excessive bleeding -You experience continued vomiting/nausea -Your incision begins to separate -Your incision shows signs of infection such as increased redness, swelling, excessive pain, drainage (light blood or clear fluid is normal) or heat Care Plan Goals: control pain continue meds for atrial fibrillation Health Concerns: postop pain, atrial fib, asthma, chronic anticoagulation, back pain Plan of Treatment: continue home meds oral pain meds office ffup Assessment: doing well postop
--- NOTE | 2022-06-29 11:00 | MHC.CLN ---
F/U DIET CONTINUES REGULAR, LOW FIBER WITH ENSURE TID. SUPPLEMENT PROVIDES ADDITIONAL 1050 KCALS, 60 G PROTEIN. TOLERATING DIET PER PROVIDER. INTAKE AT MEALS VARIABLE, 25-75% FOLLOW FOR DIET TOLERANCE AND INTAKE.
[2022-06-29] MEDS: 0.9 % Sodium Chloride Flush 10 ML SYRINGE 5 ML IVFLUSH ×3 (11:42→21:15)
[2022-06-29 11:51] VITALS: PULSE 79
--- NOTE | 2022-06-29 12:49 | PM.PNGS ---
Subjective Subjective Date of Service: 06/29/22 <Deedee Long PA-C - Last Filed: 06/29/22 12:53> 06/29/22 <Francisco Guerrero MD - Last Filed: 06/29/22 13:05> Interval history: Feels ok. No new complaints. Tolerating diet. No further loose stools, passing flatus. <Deedee Long PA-C - Last Filed: 06/29/22 12:53> Physical Exam Vital Signs: Vital Signs: Last Vital Signs Temp 97.4 F 06/29/22 07:52 Pulse 79 06/29/22 11:51 Resp 18 06/29/22 08:09 BP 103/74 06/29/22 07:52 Pulse Ox 95 06/29/22 07:52 O2 Del Method 06/29/22 07:52 O2 Flow Rate 1 06/24/22 12:00 BMI result Body Mass Index 32.2 <Deedee Long PA-C - Last Filed: 06/29/22 12:53> Const: General: comfortable and alert <Deedee Long PA-C - Last Filed: 06/29/22 12:53> Resp: Effort & Inspection: normal respiratory effort <Deedee Long PA-C - Last Filed: 06/29/22 12:53> GI: Inspection: Yes distended and Yes incision (clean) <Deedee Long PA-C - Last Filed: 06/29/22 12:53> Palpation (GI): Soft to palpation, nontender, no guarding and not rigid <Deedee Long PA-C - Last Filed: 06/29/22 12:53> Percussion: Yes tympanic to percussion <Deedee Long PA-C - Last Filed: 06/29/22 12:53> Skin: General skin exam: no rashes or lesions noted <Deedee Long PA-C - Last Filed: 06/29/22 12:53> Objective Data Active Medications Acetaminophen (Acetaminophen 325 Mg Tablet) 650 mg PO Q4H PRN PRN Reason: Headache Last Admin: 06/29/22 03:27 Dose: 650 mg Documented By: BINU Acetaminophen/Butalbital/Caffeine (Butalb/Acetamin/Caff 50/325/40 Tablet) 2 tab PO Q4H PRN PRN Reason: Headache Last Admin: 06/26/22 16:51 Dose: 2 tab Documented By: QUAN Albuterol Sulfate (Albuterol Sulfate 90 Mcg 8 Gm Inhaler) 2 puff INHALE Q6H PRN PRN Reason: shortness of breath or wheezing Amlodipine Besylate (Amlodipine Besylate 10 Mg Tablet) 10 mg NG-TUBE DAILY [facility]; Protocol Last Admin: 06/29/22 08:40 Dose: 10 mg Documented By: FLAQUITO Apixaban (Apixaban 5 Mg Tablet) 5 mg PO BID [facility] Last Admin: 06/29/22 08:40 Dose: 5 mg Documented By: FLAQUITO Benzocaine (Throat Lozenge, Medicated Lozenge) 1 lozenge MUCOUS MEM Q2H PRN PRN Reason: Sore Throat Last Admin: 06/21/22 12:19 Dose: 1 lozenge Documented By: PRABHJOT Divalproex Sodium (Divalproex Sodium Er 500 Mg Tab.Er.24h) 500 mg PO DAILY [facility] Last Admin: 06/29/22 08:39 Dose: 500 mg Documented By: FLAQUITO Docusate Sodium (Docusate Sodium 100 Mg Capsule) 100 mg PO BID [facility] Last Admin: 06/29/22 08:40 Dose: 100 mg Documented By: FLAQUITO Famotidine (Famotidine 20 Mg Tablet) 20 mg PO BID [facility] Last Admin: 06/29/22 08:39 Dose: 20 mg Documented By: FLAQUITO Fluticasone Propionate (Fluticasone Propionate Nasal 16 Gm [place]) 1 spray NOSTRIL-B BID PRN PRN Reason: Allergy Symptoms Fluticasone/Vilanterol (Fluticasone/Vilanterol 100/25 Blst.W.Dev) 1 puff INHALE RDAILY [facility] Last Admin: 06/29/22 08:09 Dose: 1 puff Documented By: KAL Latanoprost (Latanoprost 0.005 % Ophth Saira 2.5 Ml Drops) 1 drop EYE-BOTH BEDTIME [facility] Last Admin: 06/28/22 20:35 Dose: 1 drop Documented By: RYAN Lidocaine (Lidocaine 4 % Patch Adh..Patch) 1 patch TRANSDERMA DAILY [facility]; Protocol Lorazepam (Lorazepam 1 Mg Tablet) 1 mg PO DAILY PRN PRN Reason: Anxiety Last Admin: 06/28/22 13:51 Dose: 1 mg Documented By: FLAQUITO Naloxone HCl (Naloxone Hcl Nasal 4 Mg [place]) 4 mg NOSTRILALT ONCE PRN PRN Reason: Opiate Reversal Ondansetron HCl (Ondansetron Hcl 4 Mg/2 Ml Vial) 4 mg IVPUSH Q8H PRN PRN Reason: Nausea and Vomiting Last Admin: 06/21/22 10:46 Dose: 4 mg Documented By: CASSI-RIVKRAIG Oxycodone HCl (Oxycodone Hcl Immed Release 5 Mg Tablet) 5 mg PO Q4H PRN PRN Reason: Pain, Moderate (Pain Scale 4-6 Pharmacy Consult (Consult Rx Perform Med Rec) 1 each MISCELLANE ONCE PRN PRN Reason: Consult order Sodium Chloride (0.9 % Sodium Chloride Flush 3 Ml Syringe) 3 ml IVFLUSH QSHIFT [facility] Last Admin: 06/29/22 11:42 Dose: 3 ml Documented By: FLAQUITO Sodium Chloride (0.9 % Sodium Chloride Flush 10 Ml Syringe) 5 ml IVFLUSH TID [facility] Last Admin: 06/29/22 11:42 Dose: 5 ml Documented By: FLAQUITO Venlafaxine HCl (Venlafaxine Hcl Er 37.5 Mg Cap.Er.24h) 37.5 mg PO DAILY [facility] Last Admin: 06/29/22 08:40 Dose: 37.5 mg Documented By: FLAQUITO Venlafaxine HCl (Venlafaxine Hcl Er 150 Mg Cap.Er.24h) 150 mg PO DAILY [facility] Last Admin: 06/29/22 08:40 Dose: 150 mg Documented By: FLAQUITO <Deedee Long PA-C - Last Filed: 06/29/22 12:53> Labs CBC & Chem 7: 06/27/22 08:45 06/29/22 05:28 <Deedee Long PA-C - Last Filed: 06/29/22 12:53> Labs: Laboratory Results - last 24 hr 06/29/22 06/29/22 05:28 07:51 Anion Gap 17 Estim Creat Clear Calc 57.0 Estimated GFR 49 POC Glucose 92 Random Glucose 87 Calcium 8.1 L <Deedee Long PA-C - Last Filed: 06/29/22 12:53> Procedures Date of Service Date of Service: 06/29/22 <Deedee Long PA-C - Last Filed: 06/29/22 12:53> Progress Note: A&P Assessment and plan (1) S/P exploratory laparotomy: Status: Acute <Deedee Long PA-C - Last Filed: 06/29/22 12:53> (2) Small bowel obstruction: Status: Acute <ROYAL Guzman Last Filed: 06/29/22 12:53> (3) Chronic anticoagulation: Status: Acute <Deedee Long PA-C - Last Filed: 06/29/22 12:53> Assessment and Plan: PO intake better main complaint is back backpain, asking for narcotics for this abd soft and benign has BMs needs to go to [facility] pt still hesitant looks well seen and examined independently - agree with JOSIANE Long <Francisco Guerrero MD - Last Filed: 06/29/22 13:05> Assessment and Plan: Doing well, tolerating diet with GI function. Last BM 06/27/22 Has been off TPN PT rec STR Initially refusing to go but agreeing this morning Plan for dc tomorrow to [facility]? <Deedee Long PA-C - Last Filed: 06/29/22 12:53> Time Spent With Patient Time: Total time managing care of this patient today ____ minutes. <Deedee Long PA-C - Last Filed: 06/29/22 12:53> Quality Stroke Does the patient have a stroke diagnosis?: No <Deedee Long PA-C - Last Filed: 06/29/22 12:53> VTE Prior VTE?: No <Deedee Long PA-C - Last Filed: 06/29/22 12:53> VTE Risk Level:: Surgical - low <Deedee Long PA-C - Last Filed: 06/29/22 12:53> VTE Device Contraindication: N/A - Device Ordered <Deedee Long PA-C - Last Filed: 06/29/22 12:53> VTE Drug Contraindication: N/A - Med Ordered <Deedee Long PA-C - Last Filed: 06/29/22 12:53>
[2022-06-29] MEDS: Lidocaine 4 % Patch ADH..PATCH 1 PATCH TRANSDERMA (13:03)
[2022-06-29] MEDS: oxyCODONE HCl Immed Release 5 MG TABLET PO ×2 (13:05→21:13)
--- NOTE | 2022-06-29 15:41 | MHC.CM.PN ---
PT NOT YET MEDICALLY CLEARED FOR DC DCP REMAINS HOME POSSIBLY WITH NEW [facility]
[2022-06-29 16:00] VITALS: BP 132/56; RESP 21; TEMP 36.1; O2SAT 92
[2022-06-29] MEDS: Latanoprost 0.005 % Ophth Sol 2.5 ML DROPS 1 DROP EYE-BOTH (21:18)
[2022-06-30 04:00] VITALS: BP 118/65; PULSE 81; RESP 18; TEMP 36.1; O2SAT 94
[2022-06-30] MEDS: OLANZapine 10 MG VIAL IM (05:28)
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
[2022-06-30 07:53] VITALS: BP 138/94; PULSE 90; RESP 18; TEMP 36; O2SAT 99
[2022-06-30 08:00] VITALS: BMI 31.6
[2022-06-30 08:48] LABS: Anion Gap 14 (12-20); Blood Urea Nitrogen 18 mg/dL (9-16); Calcium 8.4 mg/dL (8.4-10.2); Carbon Dioxide 25 mmol/L (22-29); Chloride 102 mmol/L (96-108); Creatinine Clr Calc Pharmacy 65.3; Estimated Glomerular Filt Rate 57; Glucose Random 99 mg/dL (60-115); Potassium 3.9 mmol/L (3.3-5.1); Sodium 137 mmol/L (135-145)
[2022-06-30] MEDS: Acetaminophen 325 MG TABLET 650 MG PO ×2 (10:11→21:30)
[2022-06-30] MEDS: oxyCODONE HCl Immed Release 5 MG TABLET PO ×2 (10:11→21:29)
[2022-06-30] MEDS: 0.9 % Sodium Chloride Flush 3 ML SYRINGE IVFLUSH ×2 (10:20→21:30)
[2022-06-30] MEDS: Lidocaine 4 % Patch ADH..PATCH 1 PATCH TRANSDERMA (10:23)
[2022-06-30] MEDS: Famotidine 20 MG TABLET PO ×2 (10:24→21:29)
[2022-06-30] MEDS: Divalproex Sodium ER 500 MG TAB.ER.24H PO (10:24)
[2022-06-30] MEDS: Venlafaxine HCl ER 150 MG CAP.ER.24H PO (10:24)
[2022-06-30] MEDS: Venlafaxine HCl ER 37.5 MG CAP.ER.24H PO (10:24)
[2022-06-30] MEDS: LORazepam 1 MG TABLET PO (10:24)
[2022-06-30] MEDS: Docusate Sodium 100 MG CAPSULE PO ×2 (10:25→21:29)
[2022-06-30] MEDS: Apixaban 5 MG TABLET PO ×2 (10:25→21:29)
[2022-06-30] MEDS: amLODIPine Besylate 10 MG TABLET NG-TUBE (10:25)
--- NOTE | 2022-06-30 13:38 | P.PNGS_ITS ---
Subjective Subjective Date of Service: 07/01/22 Interval history: Patient is doing well sleepy feeling okay tolerating diet well having bowel movements Physical Exam Vital Signs: Vital Signs: Last Vital Signs Temp 96.8 F 06/30/22 07:53 Pulse 90 06/30/22 07:53 Resp 18 06/30/22 07:53 BP 138/94 H 06/30/22 07:53 Pulse Ox 99 06/30/22 07:53 O2 Del Method 06/30/22 07:53 O2 Flow Rate 1 06/24/22 12:00 BMI result Body Mass Index 31.6 GI: Other: Abdomen is soft but distended but great bowel sounds nontender Objective Data Active Medications Acetaminophen (Acetaminophen 325 Mg Tablet) 650 mg PO Q4H PRN PRN Reason: Headache Last Admin: 06/30/22 10:11 Dose: 650 mg Documented By: JEFERSON Acetaminophen/Butalbital/Caffeine (Butalb/Acetamin/Caff 50/325/40 Tablet) 2 tab PO Q4H PRN PRN Reason: Headache Last Admin: 06/26/22 16:51 Dose: 2 tab Documented By: QUAN Albuterol Sulfate (Albuterol Sulfate 90 Mcg 8 Gm Inhaler) 2 puff INHALE Q6H PRN PRN Reason: shortness of breath or wheezing Amlodipine Besylate (Amlodipine Besylate 10 Mg Tablet) 10 mg NG-TUBE DAILY [facility]; Protocol Last Admin: 06/30/22 10:25 Dose: 10 mg Documented By: SHONDA Apixaban (Apixaban 5 Mg Tablet) 5 mg PO BID [facility] Last Admin: 06/30/22 10:25 Dose: 5 mg Documented By: SHONDA Benzocaine (Throat Lozenge, Medicated Lozenge) 1 lozenge MUCOUS MEM Q2H PRN PRN Reason: Sore Throat Last Admin: 06/21/22 12:19 Dose: 1 lozenge Documented By: PRABHJOT Divalproex Sodium (Divalproex Sodium Er 500 Mg Tab.Er.24h) 500 mg PO DAILY [facility] Last Admin: 06/30/22 10:24 Dose: 500 mg Documented By: SHONDA Docusate Sodium (Docusate Sodium 100 Mg Capsule) 100 mg PO BID [facility] Last Admin: 06/30/22 10:25 Dose: 100 mg Documented By: SHONDA Famotidine (Famotidine 20 Mg Tablet) 20 mg PO BID [facility] Last Admin: 06/30/22 10:24 Dose: 20 mg Documented By: SHONDA Fluticasone Propionate (Fluticasone Propionate Nasal 16 Gm [place]) 1 spray NOSTRIL-B BID PRN PRN Reason: Allergy Symptoms Fluticasone/Vilanterol (Fluticasone/Vilanterol 100/25 Blst.W.Dev) 1 puff INHALE RDAILY [facility] Last Admin: 06/30/22 07:54 Dose: Not Given Documented By: IRENA Non-Admin Reason: Patient Condition Contraindication Latanoprost (Latanoprost 0.005 % Ophth Saira 2.5 Ml Drops) 1 drop EYE-BOTH BEDTIME [facility] Last Admin: 06/29/22 21:18 Dose: 1 drop Documented By: ROSENDO Lidocaine (Lidocaine 4 % Patch Adh..Patch) 1 patch TRANSDERMA DAILY [facility]; Protocol Last Admin: 06/30/22 10:23 Dose: 1 patch Documented By: SHONDA Lorazepam (Lorazepam 1 Mg Tablet) 1 mg PO DAILY PRN PRN Reason: Anxiety Last Admin: 06/30/22 10:24 Dose: 1 mg Documented By: SHONDA Naloxone HCl (Naloxone Hcl Nasal 4 Mg [place]) 4 mg NOSTRILALT ONCE PRN PRN Reason: Opiate Reversal Ondansetron HCl (Ondansetron Hcl 4 Mg/2 Ml Vial) 4 mg IVPUSH Q8H PRN PRN Reason: Nausea and Vomiting Last Admin: 06/21/22 10:46 Dose: 4 mg Documented By: PRABHJOT Oxycodone HCl (Oxycodone Hcl Immed Release 5 Mg Tablet) 5 mg PO Q4H PRN PRN Reason: Pain, Moderate (Pain Scale 4-6 Last Admin: 06/30/22 10:11 Dose: 5 mg Documented By: JEFERSON Pharmacy Consult (Consult Rx Perform Med Rec) 1 each MISCELLANE ONCE PRN PRN Reason: Consult order Sodium Chloride (0.9 % Sodium Chloride Flush 3 Ml Syringe) 3 ml IVFLUSH QSHIFT [facility] Last Admin: 06/30/22 10:20 Dose: 3 ml Documented By: SHONDA Sodium Chloride (0.9 % Sodium Chloride Flush 10 Ml Syringe) 5 ml IVFLUSH TID [facility] Last Admin: 06/30/22 10:26 Dose: Not Given Documented By: SHONDA Non-Admin Reason: IV flushed, this is duplicate Venlafaxine HCl (Venlafaxine Hcl Er 37.5 Mg Cap.Er.24h) 37.5 mg PO DAILY [facility] Last Admin: 06/30/22 10:24 Dose: 37.5 mg Documented By: SHONDA Venlafaxine HCl (Venlafaxine Hcl Er 150 Mg Cap.Er.24h) 150 mg PO DAILY [facility] Last Admin: 06/30/22 10:24 Dose: 150 mg Documented By: SHONDA Labs 06/27/22 08:45 06/30/22 08:02 Labs: Laboratory Results - last 24 hr 06/30/22 08:02 Anion Gap 14 Estim Creat Clear Calc 65.3 Estimated GFR 57 Random Glucose 99 Calcium 8.4 Procedures Date of Service Date of Service: 06/30/22 Progress Note: A&P Assessment and plan (1) S/P exploratory laparotomy: Status: Acute Plan Patient is doing well status post exploratory laparotomy with lysis of adhesions for small bowel obstruction.Patient finally doing well with diet ambulating a little bit and having bowel movements. Plan to continue with improving his strength at rehab. He is agreeing to go to rehab on Saturday. Time Spent With Patient Time: Total time managing care of this patient today ____ minutes. Quality Stroke Does the patient have a stroke diagnosis?: No VTE Prior VTE?: No VTE Risk Level:: Surgical - low VTE Device Contraindication: N/A - Device Ordered VTE Drug Contraindication: N/A - Med Ordered
[2022-06-30 15:37] VITALS: BP 155/70; PULSE 80; RESP 16; TEMP 36.3; O2SAT 96
[2022-06-30 19:09] VITALS: BP 126/67; PULSE 73; RESP 16; TEMP 36.6; O2SAT 93
[2022-06-30] MEDS: Latanoprost 0.005 % Ophth Sol 2.5 ML DROPS 1 DROP EYE-BOTH (21:33)
[2022-07-01 03:33] VITALS: BP 142/93; PULSE 96; RESP 19; TEMP 36.1; O2SAT 99
[2022-07-01] MEDS: oxyCODONE HCl Immed Release 5 MG TABLET PO ×3 (04:40→20:23)
[2022-07-01] MEDS: Acetaminophen 325 MG TABLET 650 MG PO ×3 (04:41→20:22)
[2022-07-01 07:12] LABS: Anion Gap 13 (12-20); Blood Urea Nitrogen 19 mg/dL (9-16); Calcium 7.7 mg/dL (8.4-10.2); Carbon Dioxide 24 mmol/L (22-29); Chloride 105 mmol/L (96-108); Creatinine Clr Calc Pharmacy 77.1; Estimated Glomerular Filt Rate > 60; Glucose Random 88 mg/dL (60-115); Potassium 3.7 mmol/L (3.3-5.1); Sodium 138 mmol/L (135-145)
[2022-07-01 08:00] VITALS: BP 135/83; PULSE 106; RESP 18; TEMP 35.8; O2SAT 97
[2022-07-01] MEDS: Fluticasone/Vilanterol 100/25 BLST.W.DEV 1 PUFF INHALE (08:33)
[2022-07-01] MEDS: 0.9 % Sodium Chloride Flush 3 ML SYRINGE IVFLUSH ×2 (09:55→20:20)
[2022-07-01] MEDS: Famotidine 20 MG TABLET PO ×2 (09:56→20:22)
[2022-07-01] MEDS: amLODIPine Besylate 10 MG TABLET NG-TUBE (09:56)
[2022-07-01] MEDS: Venlafaxine HCl ER 150 MG CAP.ER.24H PO (09:57)
[2022-07-01] MEDS: Docusate Sodium 100 MG CAPSULE PO (09:57)
[2022-07-01] MEDS: Apixaban 5 MG TABLET PO ×2 (09:57→20:21)
[2022-07-01] MEDS: Venlafaxine HCl ER 37.5 MG CAP.ER.24H PO (09:57)
[2022-07-01] MEDS: Lidocaine 4 % Patch ADH..PATCH 1 PATCH TRANSDERMA (09:57)
[2022-07-01] MEDS: Divalproex Sodium ER 500 MG TAB.ER.24H PO (09:57)
--- NOTE | 2022-07-01 13:37 | P.PNGS_ITS ---
Subjective Subjective Date of Service: 07/01/22 Interval history: complaining of diarrhea and feeling wek - says he feel like he did just before he came into the hospital when all this was starting, not nauseated or feeling to vomit, pain is ok also co of a stitch sticking out of his incision Physical Exam Vital Signs: Vital Signs: Last Vital Signs Temp 96.5 F L 07/01/22 08:00 Pulse 106 H 07/01/22 08:00 Resp 18 07/01/22 08:00 BP 135/83 07/01/22 08:00 Pulse Ox 97 07/01/22 08:00 O2 Del Method 07/01/22 08:00 O2 Flow Rate 1 06/24/22 12:00 BMI result Body Mass Index 31.6 Resp: Effort & Inspection: normal respiratory effort Auscultation: clear to auscultation bilaterally Cardio: Rate: regular rate Rhythm: regular rhythm GI: Other: soft distended nontender active bowel sounds midline with short suture sticking out no infection Objective Data Active Medications Acetaminophen (Acetaminophen 325 Mg Tablet) 650 mg PO Q4H PRN PRN Reason: Headache Last Admin: 07/01/22 12:25 Dose: 650 mg Documented By: SHONDA Acetaminophen/Butalbital/Caffeine (Butalb/Acetamin/Caff 50/325/40 Tablet) 2 tab PO Q4H PRN PRN Reason: Headache Last Admin: 06/26/22 16:51 Dose: 2 tab Documented By: QUAN Albuterol Sulfate (Albuterol Sulfate 90 Mcg 8 Gm Inhaler) 2 puff INHALE Q6H PRN PRN Reason: shortness of breath or wheezing Amlodipine Besylate (Amlodipine Besylate 10 Mg Tablet) 10 mg NG-TUBE DAILY [facility]; Protocol Last Admin: 07/01/22 09:56 Dose: 10 mg Documented By: SHONDA Apixaban (Apixaban 5 Mg Tablet) 5 mg PO BID [facility] Last Admin: 07/01/22 09:57 Dose: 5 mg Documented By: SHONDA Benzocaine (Throat Lozenge, Medicated Lozenge) 1 lozenge MUCOUS MEM Q2H PRN PRN Reason: Sore Throat Last Admin: 06/21/22 12:19 Dose: 1 lozenge Documented By: PRABHJOT Divalproex Sodium (Divalproex Sodium Er 500 Mg Tab.Er.24h) 500 mg PO DAILY [facility] Last Admin: 07/01/22 09:57 Dose: 500 mg Documented By: SHONDA Docusate Sodium (Docusate Sodium 100 Mg Capsule) 100 mg PO BID [facility] Last Admin: 07/01/22 09:57 Dose: 100 mg Documented By: SHONDA Famotidine (Famotidine 20 Mg Tablet) 20 mg PO BID [facility] Last Admin: 07/01/22 09:56 Dose: 20 mg Documented By: SHONDA Fluticasone Propionate (Fluticasone Propionate Nasal 16 Gm [place]) 1 spray NOSTRIL-B BID PRN PRN Reason: Allergy Symptoms Fluticasone/Vilanterol (Fluticasone/Vilanterol 100/25 Blst.W.Dev) 1 puff INHALE RDAILY [facility] Last Admin: 07/01/22 08:33 Dose: 1 puff Documented By: MANUEL Latanoprost (Latanoprost 0.005 % Ophth Saira 2.5 Ml Drops) 1 drop EYE-BOTH BEDTIME [facility] Last Admin: 06/30/22 21:33 Dose: 1 drop Documented By: ROSENDO Lidocaine (Lidocaine 4 % Patch Adh..Patch) 1 patch TRANSDERMA DAILY [facility]; Protocol Last Admin: 07/01/22 09:57 Dose: 1 patch Documented By: SHONDA Lorazepam (Lorazepam 1 Mg Tablet) 1 mg PO DAILY PRN PRN Reason: Anxiety Last Admin: 06/30/22 10:24 Dose: 1 mg Documented By: SHONDA Naloxone HCl (Naloxone Hcl Nasal 4 Mg [place]) 4 mg NOSTRILALT ONCE PRN PRN Reason: Opiate Reversal Ondansetron HCl (Ondansetron Hcl 4 Mg/2 Ml Vial) 4 mg IVPUSH Q8H PRN PRN Reason: Nausea and Vomiting Last Admin: 06/21/22 10:46 Dose: 4 mg Documented By: PRABHJOT Oxycodone HCl (Oxycodone Hcl Immed Release 5 Mg Tablet) 5 mg PO Q4H PRN PRN Reason: Pain, Moderate (Pain Scale 4-6 Last Admin: 07/01/22 12:26 Dose: 5 mg Documented By: SHONDA Pharmacy Consult (Consult Rx Perform Med Rec) 1 each MISCELLANE ONCE PRN PRN Reason: Consult order Sodium Chloride (0.9 % Sodium Chloride Flush 3 Ml Syringe) 3 ml IVFLUSH QSHIFT [facility] Last Admin: 07/01/22 09:55 Dose: 3 ml Documented By: SHONDA Sodium Chloride (0.9 % Sodium Chloride Flush 10 Ml Syringe) 5 ml IVFLUSH TID [facility] Last Admin: 07/01/22 09:55 Dose: Not Given Documented By: SHONDA Non-Admin Reason: only has one IV Venlafaxine HCl (Venlafaxine Hcl Er 37.5 Mg Cap.Er.24h) 37.5 mg PO DAILY [facility] Last Admin: 07/01/22 09:57 Dose: 37.5 mg Documented By: SHONDA Venlafaxine HCl (Venlafaxine Hcl Er 150 Mg Cap.Er.24h) 150 mg PO DAILY [facility] Last Admin: 07/01/22 09:57 Dose: 150 mg Documented By: SHONDA Labs 06/27/22 08:45 07/01/22 06:08 Labs: Laboratory Results - last 24 hr 07/01/22 06:08 Anion Gap 13 Estim Creat Clear Calc 77.1 Estimated GFR > 60 Random Glucose 88 Calcium 7.7 L D Microbiology Microbiology Results: Microbiology 06/25/22 17:06 Blood Culture - Final Blood - Venous No growth after 5 days. 06/25/22 17:06 Blood Culture - Final Blood - Venous No growth after 5 days. Procedures Date of Service Date of Service: 07/01/22 Progress Note: A&P Assessment and plan (1) S/P exploratory laparotomy: Status: Acute Plan s/p expl lap and latricia for sbo doing well now but today with some diarrhea and feeling more bloated. no nausea and eating ok. feels weak. he is supposed to be going to rehab plan - check stool cx to rule out cdiff check labs in am check kub in am PT to ambulate with pt will eventually trim back suture material - incision looks fine Time Spent With Patient Time: Total time managing care of this patient today ____ minutes. Quality Stroke Does the patient have a stroke diagnosis?: No VTE Prior VTE?: No VTE Risk Level:: Surgical - low VTE Device Contraindication: N/A - Device Ordered VTE Drug Contraindication: N/A - Med Ordered
[2022-07-01] MEDS: LORazepam 1 MG TABLET PO (13:45)
[2022-07-01 15:37] VITALS: BP 102/60; PULSE 75; RESP 15; TEMP 36.8; O2SAT 94
--- NOTE | 2022-07-01 16:26 | PC.NURSE ---
Pt reports diarrhea this am, feeling his abdominal discomforts/complaints are back to previous/prior to surgery. Assessed scar area of recent abd surgery, stitch like item protruding from site. Reported to covering provider. Will placed orders.
[2022-07-01 19:26] VITALS: BP 133/84; PULSE 84; RESP 16; TEMP 36.6; O2SAT 98
[2022-07-01] MEDS: Latanoprost 0.005 % Ophth Sol 2.5 ML DROPS 1 DROP EYE-BOTH (20:19)
[2022-07-02 03:40] VITALS: BP 154/83; PULSE 98; RESP 18; TEMP 36.1; O2SAT 94
[2022-07-02 06:20] LABS: MANUAL DIFF FLAG NO
[2022-07-02 06:21] LABS: Basophils Absolute Auto 0.1 X10*3/uL (0.0-0.2); Basophils Percent Auto 0.8 % (0-2); Eosinophils Absolute Auto 0.2 X10*3/uL (0.0-0.4); Eosinophils Percent Auto 1.9 % (0-4); Hematocrit 35.2 % (42.0-52.0); Hemoglobin 11.8 g/dl (14.0-18.0); Imm Gran Abs Auto 0.26 X10*3/uL (0.00-0.03); Lymphocytes Absolute Auto 2.7 X10*3/uL (1.2-4.9); Lymphocytes Percent Auto 30.2 % (20-40); Mean Corpuscular HGB Conc 33.5 g/dl (31.0-36.0); Mean Corpuscular Hemoglobin 30.5 pg (27.0-33.0); Mean Platelet Volume 10.3 fL (9.4-12.4); Monocytes Absolute Auto 0.9 X10*3/uL (0.1-1.2); Monocytes Percent Auto 9.9 % (2-11); Neutrophils Absolute Auto 4.8 x10*3/uL (2.0-8.3); Neutrophils Percent Auto 54.2 % (45-73); Platelet Count 507 X10*3/uL (160-400); Red Blood Count 3.87 X10*6/uL (4.60-5.80); Red Cell Distribution Width 14.1 % (11.0-16.0); White Blood Count 8.8 X10*3/uL (4.8-10.8)
[2022-07-02 06:31] LABS: CDiff Gene PCR NEGATIVE (Negative)
[2022-07-02 06:40] LABS: Anion Gap 15 (12-20); Blood Urea Nitrogen 18 mg/dL (9-16); Calcium 8.6 mg/dL (8.4-10.2); Carbon Dioxide 24 mmol/L (22-29); Chloride 104 mmol/L (96-108); Creatinine Clr Calc Pharmacy 70.9; Estimated Glomerular Filt Rate > 60; Glucose Random 96 mg/dL (60-115); Potassium 4.2 mmol/L (3.3-5.1); Sodium 139 mmol/L (135-145)
[2022-07-02 07:14] VITALS: BP 127/74; PULSE 79; RESP 16; TEMP 36.9; O2SAT 95
[2022-07-02 08:00] VITALS: BMI 31.6
--- NOTE | 2022-07-02 08:08 | PM.PNGS ---
Subjective Subjective Date of Service: 07/02/22 Interval history: denies abdominal pain diarrhea better no events overnight says he has good oral intake Physical Exam Vital Signs: Vital Signs: Last Vital Signs Temp 98.5 F 07/02/22 07:14 Pulse 79 07/02/22 07:14 Resp 16 07/02/22 07:14 BP 127/74 07/02/22 07:14 Pulse Ox 95 07/02/22 07:14 O2 Del Method 07/02/22 07:14 O2 Flow Rate 1 06/24/22 12:00 BMI result Body Mass Index 31.6 Const: General: comfortable and no acute distress Resp: Effort & Inspection: normal respiratory effort Cardio: Rate: regular rate GI: Palpation (GI): Soft to palpation, not firm, nontender and no guarding Objective Data Active Medications Acetaminophen (Acetaminophen 325 Mg Tablet) 650 mg PO Q4H PRN PRN Reason: Headache Last Admin: 07/01/22 20:22 Dose: 650 mg Documented By: VANDANA Acetaminophen/Butalbital/Caffeine (Butalb/Acetamin/Caff 50/325/40 Tablet) 2 tab PO Q4H PRN PRN Reason: Headache Last Admin: 06/26/22 16:51 Dose: 2 tab Documented By: QUAN Albuterol Sulfate (Albuterol Sulfate 90 Mcg 8 Gm Inhaler) 2 puff INHALE Q6H PRN PRN Reason: shortness of breath or wheezing Amlodipine Besylate (Amlodipine Besylate 10 Mg Tablet) 10 mg NG-TUBE DAILY [facility]; Protocol Last Admin: 07/01/22 09:56 Dose: 10 mg Documented By: SHONDA Apixaban (Apixaban 5 Mg Tablet) 5 mg PO BID [facility] Last Admin: 07/01/22 20:21 Dose: 5 mg Documented By: VANDANA Benzocaine (Throat Lozenge, Medicated Lozenge) 1 lozenge MUCOUS MEM Q2H PRN PRN Reason: Sore Throat Last Admin: 06/21/22 12:19 Dose: 1 lozenge Documented By: PRABHJOT Divalproex Sodium (Divalproex Sodium Er 500 Mg Tab.Er.24h) 500 mg PO DAILY [facility] Last Admin: 07/01/22 09:57 Dose: 500 mg Documented By: SHONDA Docusate Sodium (Docusate Sodium 100 Mg Capsule) 100 mg PO BID [facility] Last Admin: 07/01/22 21:55 Dose: Not Given Documented By: VANDANA Non-Admin Reason: diarrhea Famotidine (Famotidine 20 Mg Tablet) 20 mg PO BID [facility] Last Admin: 07/01/22 20:22 Dose: 20 mg Documented By: VANDANA Fluticasone Propionate (Fluticasone Propionate Nasal 16 Gm [place]) 1 spray NOSTRIL-B BID PRN PRN Reason: Allergy Symptoms Fluticasone/Vilanterol (Fluticasone/Vilanterol 100/25 Blst.W.Dev) 1 puff INHALE RDAILY [facility] Last Admin: 07/02/22 07:41 Dose: Not Given Documented By: KAL Non-Admin Reason: Patient Asleep Latanoprost (Latanoprost 0.005 % Ophth Saira 2.5 Ml Drops) 1 drop EYE-BOTH BEDTIME [facility] Last Admin: 07/01/22 20:19 Dose: 1 drop Documented By: VANDANA Lidocaine (Lidocaine 4 % Patch Adh..Patch) 1 patch TRANSDERMA DAILY [facility]; Protocol Last Admin: 07/01/22 09:57 Dose: 1 patch Documented By: SHONDA Lorazepam (Lorazepam 1 Mg Tablet) 1 mg PO DAILY PRN PRN Reason: Anxiety Last Admin: 07/01/22 13:45 Dose: 1 mg Documented By: SHONDA Naloxone HCl (Naloxone Hcl Nasal 4 Mg [place]) 4 mg NOSTRILALT ONCE PRN PRN Reason: Opiate Reversal Ondansetron HCl (Ondansetron Hcl 4 Mg/2 Ml Vial) 4 mg IVPUSH Q8H PRN PRN Reason: Nausea and Vomiting Last Admin: 06/21/22 10:46 Dose: 4 mg Documented By: PRABHJOT Oxycodone HCl (Oxycodone Hcl Immed Release 5 Mg Tablet) 5 mg PO Q4H PRN PRN Reason: Pain, Moderate (Pain Scale 4-6 Last Admin: 07/01/22 20:23 Dose: 5 mg Documented By: VANDANA Pharmacy Consult (Consult Rx Perform Med Rec) 1 each MISCELLANE ONCE PRN PRN Reason: Consult order Sodium Chloride (0.9 % Sodium Chloride Flush 3 Ml Syringe) 3 ml IVFLUSH QSHIFT [facility] Last Admin: 07/01/22 20:20 Dose: 3 ml Documented By: VANDANA Sodium Chloride (0.9 % Sodium Chloride Flush 10 Ml Syringe) 5 ml IVFLUSH TID [facility] Last Admin: 07/01/22 20:45 Dose: Not Given Documented By: VANDANA Non-Admin Reason: only iv present Venlafaxine HCl (Venlafaxine Hcl Er 37.5 Mg Cap.Er.24h) 37.5 mg PO DAILY [facility] Last Admin: 07/01/22 09:57 Dose: 37.5 mg Documented By: SHONDA Venlafaxine HCl (Venlafaxine Hcl Er 150 Mg Cap.Er.24h) 150 mg PO DAILY [facility] Last Admin: 07/01/22 09:57 Dose: 150 mg Documented By: SHONDA Labs 07/02/22 05:57 07/02/22 05:57 Labs: Laboratory Results - last 24 hr 07/02/22 07/02/22 07/02/22 05:30 05:57 05:57 MCV 91.0 MCH 30.5 MCHC 33.5 RDW 14.1 Plt Count 507 H D MPV 10.3 Immature Gran % (Auto) 3.0 H Neut % (Auto) 54.2 Lymph % (Auto) 30.2 Eddy % (Auto) 9.9 Eos % (Auto) 1.9 Baso % (Auto) 0.8 Lymph # (Auto) 2.7 Eddy # (Auto) 0.9 Eos # (Auto) 0.2 Baso # (Auto) 0.1 Abs Immat Gran (auto) 0.26 H Absolute Neuts (auto) 4.8 Absolute Nucleated RBC 0.000 Nucleated RBC % (auto) 0.0 Anion Gap 15 Estim Creat Clear Calc 70.9 Estimated GFR > 60 Random Glucose 96 Calcium 8.6 D C. difficile Tox B Gene NEGATIVE 07/02/22 05:57 MCV MCH MCHC RDW Plt Count MPV Immature Gran % (Auto) Neut % (Auto) Lymph % (Auto) Eddy % (Auto) Eos % (Auto) Baso % (Auto) Lymph # (Auto) Eddy # (Auto) Eos # (Auto) Baso # (Auto) Abs Immat Gran (auto) Absolute Neuts (auto) Absolute Nucleated RBC Nucleated RBC % (auto) Anion Gap Cancelled Estim Creat Clear Calc Cancelled Estimated GFR Cancelled Random Glucose Cancelled Calcium Cancelled C. difficile Tox B Gene Procedures Date of Service Date of Service: 07/02/22 Progress Note: A&P Assessment and plan (1) S/P exploratory laparotomy: Status: Acute Assessment and Plan: looks well abd soft, benign diarrhea much improved labs ok - electrolyes normal awaiting placement to Rehab doing well overall Time Spent With Patient Time: Total time managing care of this patient today ____ minutes. Quality Stroke Does the patient have a stroke diagnosis?: No VTE Prior VTE?: No VTE Risk Level:: Surgical - low VTE Device Contraindication: N/A - Device Ordered VTE Drug Contraindication: N/A - Med Ordered
[2022-07-02] MEDS: LORazepam 1 MG TABLET PO (09:22)
[2022-07-02] MEDS: Venlafaxine HCl ER 150 MG CAP.ER.24H PO (09:23)
[2022-07-02] MEDS: Apixaban 5 MG TABLET PO (09:23)
[2022-07-02] MEDS: Famotidine 20 MG TABLET PO (09:23)
[2022-07-02] MEDS: Docusate Sodium 100 MG CAPSULE PO (09:23)
[2022-07-02] MEDS: Divalproex Sodium ER 500 MG TAB.ER.24H PO (09:23)
[2022-07-02] MEDS: amLODIPine Besylate 10 MG TABLET NG-TUBE (09:23)
[2022-07-02] MEDS: Venlafaxine HCl ER 37.5 MG CAP.ER.24H PO (09:23)
--- NOTE | 2022-07-02 10:32 | MHC.CM.PN ---
PT MEDICALLY CLEARED FOR D/C TO STR AT [facility] PENDING TODAYS PT NOTE/RAPID [facility] FOR BLS TRANSPORT
[2022-07-02] MEDS: oxyCODONE HCl Immed Release 5 MG TABLET PO (11:08)
[2022-07-02] MEDS: Acetaminophen 325 MG TABLET 650 MG PO (11:08)
[2022-07-02] MEDS: 0.9 % Sodium Chloride Flush 3 ML SYRINGE IVFLUSH (11:27)
[2022-07-02 11:41] LABS: COVID-19 Test Negative (Negative); IDNOW Serial# BCCEAD1C
[2022-07-02 13:00] LABS: Adenovirus F 40/41 Not Detected (Not Detect.); Astrovirus Not Detected (Not Detect.); Campylobacter Not Detected (Not Detect.); Cryptosporidium Not Detected (Not Detect.); Cyclospora cayetanensis Not Detected (Not Detect.); E. coli EAEC Not Detected (Not Detect.); E. coli EPEC Not Detected (Not Detect.); E. coli ETEC Not Detected (Not Detect.); E. coli STEC Not Detected (Not Detect.); Entamoeba histolytica Not Detected (Not Detect.); Giardia lamblia Not Detected (Not Detect.); Norovirus GI/GII Not Detected (Not Detect.); Plesiomonas shigelloides Not Detected (Not Detect.); Rotavirus A Not Detected (Not Detect.); Salmonella Not Detected (Not Detect.); Sapovirus Not Detected (Not Detect.); Shigella sp./EIEC Not Detected (Not Detect.); Vibrio Not Detected (Not Detect.); Vibrio Cholerae Not Detected (Not Detect.); Yersinia enterocolitica Not Detected (Not Detect.)
--- NOTE | 2022-07-02 13:12 | MHC.CM.PN ---
IMM 07/02/22, PT MEDICALLY CLEARED FOR D/C TO [facility] FOR STR, [facility]ON[facility] FOR TRANSPORT, PT'S HCP AT BEDSIDE AND WAS PROVIDED W/[facility] FOR SNF.
[2022-07-02 15:35] VITALS: BP 143/77; PULSE 64; RESP 18; TEMP 37.1; O2SAT 98
== END 2022-07-02 18:01 | disposition skilled nursing facility (03) | DRG 336 ==
LOC: HO.ED 23:40 → HO.EDOVER 06-09 00:25 → HO.S3 06-09 14:19
PROVIDERS: Internal Medicine; Physician Assistant; Physician Assistant Medical; Physician Assistant Surgical; Student in an Organized Health Care Education/Training Program; Surgery; Admitting Provider Surgery; Emergency Provider Emergency Medicine; PCP Internal Medicine; Visit Provider Surgery
PROC: 0DNW0ZZ Release Peritoneum, Open Approach (ICD-10-PCS; CPT 49000; principal; 2022-06-10 11:50)
PROC: 02HV33Z Insertion of Infusion Device into Superior Vena Cava, Percutaneous Approach (ICD-10-PCS; principal; 2022-06-20 10:50)
DX: K56.51 Intestinal adhesions [bands], with partial obstruction (principal); F33.9 Major depressive disorder, recurrent, unspecified; F41.1 Generalized anxiety disorder; K21.9 Gastro-esophageal reflux disease without esophagitis; M10.9 Gout, unspecified; N40.0 Benign prostatic hyperplasia without lower urinary tract symptoms; G47.33 Obstructive sleep apnea (adult) (pediatric); J45.998 Other asthma; E87.6 Hypokalemia; K91.31 Postprocedural partial intestinal obstruction; N32.81 Overactive bladder; Z20.822 Contact with and (suspected) exposure to COVID-19; R19.7 Diarrhea, unspecified; Z85.46 Personal history of malignant neoplasm of prostate; Z92.3 Personal history of irradiation; Z86.711 Personal history of pulmonary embolism; Z87.891 Personal history of nicotine dependence; Z88.5 Allergy status to narcotic agent; Z88.8 Allergy status to other drugs, medicaments and biological substances; Z79.01 Long term (current) use of anticoagulants; Z79.899 Other long term (current) drug therapy
CPT/HCPCS: 0241U; 36415; 36573; 71045; 74018; 74022; 74176; 74177; 74250; 80048; 80051; 80053; 80202; 81001; 81003; 82040; 82310; 82565; 82947; 83605; 83735; 83880; 84100; 84478; 84484; 84520; 85025; 85027; 85610; 87040; 87147; 87205; 87493; 87502; 87507; 87635; 93005; 94640; 97116; 97162; 97530; 99285; C1751; C1758; J0131; J0330; J0610; J1170; J1650; J2060; J2250; J2405; J2550; J2795; J3010; J3370; J3371; J3475; Q9967

== ENCOUNTER 2022-07-12 19:42 | Emergency (ER) | payer MEDICARE, SELFPAY ==
--- NOTE | ~2022-07-12 | XR_ITS ---
EXAMINATION: XR CHEST CLINICAL INFORMATION: COVID COMPARISON: 06/25/2022 TECHNIQUE: Frontal view of the chest was obtained. FINDINGS: Low lung volumes. No parenchymal consolidation. No pleural effusion. No pneumothorax. Cardiomediastinal silhouette and pulmonary vascularity are within normal limits. Aorta is atherosclerotic. No acute osseous abnormalities. XR/XR chest 1V IMPRESSION: No acute findings.
--- NOTE | ~2022-07-12 | CT_ITS ---
EXAMINATION: CT ABDOMEN AND PELVIS WITH CONTRAST CLINICAL INFORMATION: Abdominal pain and distention. Question of obstruction. COMPARISON: 06/19/2022, 06/08/2022 and 06/08/2021 TECHNIQUE: Multidetector volumetric images were obtained from the superior aspect of the liver through the pubic symphysis following administration 100 mL of Omnipaque 350 intravenous contrast. Sagittal and coronal reformatted images were obtained on the technologist's workstation. Oral contrast: No This CT examination was performed using dose optimization techniques as appropriate, variously including the following: *Automated exposure control *Adjustment of mA and/or kV according to patient size (this includes techniques or standardized protocols for targeted exams where dose is matched to indication/reason for exam; i.e. extremities or head) *Use of iterative reconstruction technique DLP: 1099 mGy-cm FINDINGS: LUNG BASES: The visualized lung bases are unremarkable. LIVER, GALLBLADDER, AND BILIARY TREE: The liver is normal in size, shape, and attenuation. No focal hepatic lesion or biliary ductal dilatation is present. Cholecystectomy. PANCREAS: Unremarkable. SPLEEN: Mildly atrophic. No inflammation or mass. ADRENAL GLANDS: Unremarkable. KIDNEYS AND URETERS: The kidneys are normal in size, shape, and attenuation. No hydronephrosis, hydroureter, or calculi seen. No perinephric stranding. BLADDER: Unremarkable. GASTROINTESTINAL TRACT: Surgical clips in the gastroesophageal region. Stomach unremarkable. No evidence of bowel obstruction. There is mild mesenteric fat stranding involving a few loops of small bowel subjacent to the herniorrhaphy mesh, similar in appearance to the prior examination, however without associated bowel obstruction on the current exam. Scattered colonic diverticula, most concentrated within the sigmoid colon. No evidence of diverticulitis. Normal appendix. ABDOMINAL WALL: Stable appearance of the large ventral abdominal mesh herniorrhaphy. LYMPH NODES: Normal. VASCULAR: Aorta is atherosclerotic but normal caliber. Patent venous structures. PELVIC VISCERA: Brachytherapy seeds within the prostate. Seminal vesicles unremarkable. OSSEOUS STRUCTURES: No acute or suspicious osseous abnormalities. L1 kyphoplasty. Chronic mild anterior wedge compression fracture at T11. CT/CT abdomen pelvis w IV con IMPRESSION: * No evidence of bowel obstruction. * Stable appearance of the large ventral abdominal mesh herniorrhaphy. * There is mild mesenteric fat stranding involving a few loops of small bowel subjacent to the herniorrhaphy mesh, similar in appearance to the prior examination, however without associated bowel obstruction on the current exam. Findings could represent a mild residual enteritis or irritation related to adhesions (to the ventral abdominal wall) * Scattered colonic diverticula without evidence of diverticulitis. Fleischner guidelines were followed.
[2022-07-12 19:49] VITALS: BP 100/63; BP 146/75; PULSE 98; RESP 18; TEMP 36.8; O2SAT 98; BMI 53.8
--- NOTE | 2022-07-12 22:04 | ED_ITS ---
HPI - General Adult General Chief complaint: General Medical Stated complaint: lower back pain covid + Time Seen by Provider: 07/12/22 22:03 Source: patient Mode of arrival: EMS Limitations: other (Patient gives limited history) History of Present Illness HPI narrative: 76-year-old male who presents emergency department for evaluation of abdominal pain and possible bowel obstruction. The patient is a poor informant is difficult to get information however he did tell me that he is having abdominal pain for 4 days. He states that his abdomen is distended. He states he has been vomiting intermittently. He states that he had a bowel movement today. The patient had a prolonged hospitalization from June 09 2022 until 07/02/2022 for abdominal pain secondary to small-bowel obstruction, during that admission he did have exploratory laparoscopic surgery to take down adhesions to relieve the bowel obstruction. The patient was then transferred to a senior care facility. According to nursing notes, the senior care feels a was concerned the patient had recurrence of his bowel obstruction he was sent to the emergency department for evaluation. Nursing facility did report that the patient is COVID positive. Related Data Home Medications Medication Instructions Recorded Confirmed divalproex 500 mg tablet,delayed 500 mg PO DAILY 05/26/20 06/09/22 release eeftmpcamq-bbdzshpnwyspo-zzhhlmef 1 tab PO BEDTIME PRN Migraine 10/20/20 06/09/22 50 mg-325 mg-40 mg tablet Headache lorazepam 1 mg tablet 1 tab PO BID 10/20/20 06/09/22 venlafaxine 150 mg 150 mg PO DAILY 04/17/21 06/09/22 capsule,extended release 24 hr fluticasone propionate 45 2 puff inhalation BID 12/14/21 06/09/22 mcg-salmeterol 21 mcg/actuation HFA inhaler (Advair HFA) cyanocobalamin (vitamin B-12) 1,000 mcg subcut QMONTH 06/09/22 06/09/22 1,000 mcg/mL injection solution fluticasone propionate 50 1 spray intranasal BID PRN Allergy 06/09/22 06/09/22 mcg/actuation nasal Symptoms spray,suspension latanoprost 0.005 % eye drops 1 drp ophthalmic (eye) BEDTIME 06/09/22 06/09/22 lorazepam 1 mg tablet 1 mg PO DAILY PRN Anxiety 06/09/22 06/09/22 omeprazole 40 mg capsule,delayed 40 mg PO DAILY@0630 06/09/22 06/09/22 release tadalafil 5 mg tablet 1 tab PO DAILY 06/09/22 06/09/22 venlafaxine 37.5 mg 1 cap PO DAILY 06/09/22 06/09/22 capsule,extended release 24 hr vibegron 75 mg tablet (Gemtesa) 1 tab PO DAILY 06/09/22 06/09/22 Previous Rx's Medication Instructions Recorded syringe with needle, safety 3 mL #100 ea 06/02/21 25 gauge x 5/8 (BD Safety-Jackie Detachable Needle) ferrous sulfate 325 mg (65 mg 325 mg PO DAILY #90 tabs 08/08/21 iron) tablet (Feosol) fexofenadine 180 mg tablet 180 mg PO DAILY PRN allergy 08/10/21 symptoms #90 caps albuterol sulfate 90 mcg/actuation 2 puff inhalation Q6H PRN 12/22/21 aerosol inhaler (ProAir HFA) shortness of breath or wheezing #8.5 grams amlodipine 10 mg tablet 10 mg PO DAILY #90 caps 02/21/22 apixaban 5 mg tablet 5 mg PO BID 90 days #180 tabs 03/07/22 docusate sodium 100 mg capsule 100 mg PO BID #60 caps 06/17/22 (Colace) oxycodone 5 mg tablet 5 mg PO Q4H PRN pain #12 tabs 06/17/22 Allergies Allergy/AdvReac Type Severity Reaction Status Date / Time carisoprodol [From Soma] Allergy Mild MENTAL Verified 03/08/22 15:43 STATUS CHANGE, BECOMES AGGRESIVE codeine [Codeine] Allergy Mild STOMACH Verified 03/08/22 15:43 UPSET, RASH gabapentin AdvReac Intermediate lousy Verified 03/08/22 15:43 feeling Review of Systems Review of Systems: Yes all other systems are reviewed and are negative PMFSH Past Medical History Medical History Allergic bronchitis Anxiety and depression Asthma exacerbation Atrial fibrillation Chest tightness Constipation Degenerative disc disease Diverticular disease Dyspnea on exertion Dysuria Fatigue Fatigue Generalized anxiety disorder GERD (gastroesophageal reflux disease) Gout Headache Hospital discharge follow-up Hypertension Iron deficiency anemia Knee fracture, left Leukocytosis Low vitamin D level Moderate recurrent major depression Obesity (BMI 30-39.9) Obstructive sleep apnea Peptic ulcer disease Premature atrial complexes Prostate cancer Rash Serum potassium elevated Shortness of breath SOB (shortness of breath) on exertion Tinea cruris Vitamin B12 deficiency Vitamin D deficiency Wedge compression fracture of L1 vertebra Surgical History H/O hernia repair H/O rectal polypectomy History of bowel resection History of cholecystectomy History of colonoscopy History of hemiarthroplasty of left hip History of knee replacement procedure of left knee History of pyloroplasty Family History Family History Father Diabetes Acute kidney failure Glaucoma Mother Lung cancer Social History Social History Household Members: None Housing: Apartment Do you presently have visiting nurse or other home services: No Alcohol intake: unknown Patient Tobacco Use Status: Former Tobacco user Quit Date: Tobacco use type: Cigar e-Cigarette/Vaping Use: Currently Using Second Hand Smoke Exposure: No Advance Directives: No Advance Directives Information Provided: Yes Advance Directives Date on File: 01/30/20 service: No Current occupational status: retired Cognitive needs: No Hearing needs: Yes Vision needs: Yes Physical Exam ED Vital Signs: Vital Signs - 24 hr 07/12/22 19:49 07/12/22 22:05 07/12/22 23:30 Temperature 98.3 F 98.8 F 98.9 F Pulse Rate 98 87 102 H Respiratory Rate 18 16 14 Blood Pressure 100/63 114/69 108/66 Pulse Oximetry 98 97 95 Oxygen Delivery Method Room Air Room Air Room Air 07/13/22 00:23 Temperature Pulse Rate Respiratory Rate 18 Blood Pressure Pulse Oximetry Oxygen Delivery Method BMI result Body Mass Index 53.8 Const Other: Awake, alert, male, he is moaning secondary to his pain, he answers questions but is a poor informant. He does appear to have a distended abdomen, he has had no vomiting a since being in the emergency department Orientation/consciousness: oriented to person HENMT Head: Yes normal to inspection, Yes normocephalic and Yes atraumatic Ears: external ears normal General nose exam: Normal external nose present Face and sinus: Yes normal facial exam Mouth: Normal oral and palatal mucosa present Throat: Yes posterior oropharynx normal Eyes General: appearance normal, both eyes and all related structures Pupils: Equal, round and reactive pupils present Neck Neck: Yes normal visual inspection, Yes no lymphadenopathy, Yes trachea midline and Yes supple Chest Chest palpation & inspection: normal inspection of the chest and normal palpation of entire chest wall Resp Effort & Inspection: normal respiratory effort and able to speak in complete sentences Auscultation: clear to auscultation bilaterally Cardio Rate: regular rate Rhythm: regular rhythm Heart sounds: S1 normal heart sound present, S2 normal heart sound present and no murmurs GI Other: The patient is moaning secondary to his pain, his abdomen appear to be distended the recent surgical scar is intact and does not appear to be infected, the patient does have high-pitched bowel sounds with diffuse abdominal tenderness General: Yes no CVA tenderness Back/Spine/Pelvis Back: no CVA tenderness Skin General skin exam: no rashes or lesions noted Neuro General: oriented to person Cranial nerves: Yes Equal, round and reactive pupils present Extrem General: Yes normal to inspection Psych Appearance: grossly normal Medications Administered Discontinued Medications Generic Name Dose Route Start Last Admin Trade Name Freq PRN Reason Stop Dose Admin Sodium Chloride 1,000 mls @ 999 mls/hr 07/12/22 22:12 07/12/22 23:01 Ns IV 07/12/22 23:12 999 mls/hr .Q1H1M STA Administration Iohexol 99 ml 07/13/22 00:48 07/13/22 00:48 Iohexol 350 Mg/Ml 100 Ml Infus..Btl IV 07/13/22 00:49 99 ml ONCE ONE Administration Morphine Sulfate 4 mg 07/12/22 23:50 07/13/22 00:23 Morphine Sulfate 4 Mg/Ml Cartridge IVPUSH 07/12/22 23:51 4 mg ONCE STA Administration Protocol Ondansetron HCl 4 mg 07/12/22 23:50 07/13/22 00:23 Ondansetron Hcl 4 Mg/2 Ml Vial IVPUSH 07/12/22 23:51 4 mg ONCE ONE Administration Medical Decision Making Medical Decision Making MDM Narrative: 76-year-old male who presents emergency department for evaluation of 4 days of abdominal pain, 1 day of vomiting, he states he did have a bowel movement today as well pain. The patient had a prolonged hospitalization here from 06/09/2022 until 07/02/2022 or small-bowel obstruction, he had a laparoscopic exploratory surgery to reduce adhesions during his hospitalization. Nursing facility did report that the patient is COVID positive. Patient was sent in from his senior care facility for evaluation of possible obstruction. Patient's vital signs did reveal a blood pressure of 100/63. Patient's abdomen does appear to be distended, has high-pitched bowel sounds and diffuse tenderness. I did order laboratory evaluation to include CBC, CMP, lipase, PT/INR, PTT. CT scan of the abdomen pelvis with IV contrast was also ordered. I also ordered normal saline IV x1 L, Zofran 4 mg IV and morphine 4 mg IV. 0000: Laboratory interpretation is as follows: Elevated WBC 62398, low H&H of 11.9 and 35.2. INR is elevated 1.3. Sodium low 133. LFTs were normal. Lipase was normal. Urinalysis negative. COVID-19 is positive. Influenza was negative. 0128: The patient required a 2nd dose of morphine IV to help control his abdominal pain. CT scan of the abdomen pelvis with IV contrast did not reveal a bowel obstruction or clear cause for the patient's abdominal pain. Given the patient's unremarkable laboratory workup and nondiagnostic CT scan, the patient will be discharged back to his care facility. Differential Diagnosis Differential diagnosis includes but is not limited to small-bowel obstruction, pancreatitis, diverticulitis, kidney stone Lab Data [facility] Lab Attestation statement: I reviewed the patient's lab results. Please see [facility] for discussion. 07/12/22 22:57 07/12/22 22:57 Labs: Lab Results 07/12/22 07/12/22 07/12/22 Range/Units 22:57 22:57 22:57 WBC 12.7 H (4.8-10.8) X10*3/uL RBC 3.89 L (4.60-5.80) X10*6/uL Hgb 11.9 L (14.0-18.0) g/dl Hct 35.2 L (42.0-52.0) % MCV 90.5 (80.0-98.0) fL MCH 30.6 (27.0-33.0) pg MCHC 33.8 (31.0-36.0) g/dl RDW 14.2 (11.0-16.0) % Plt Count 321 D (160-400) X10*3/uL MPV 10.1 (9.4-12.4) fL Immature Gran % (Auto) 0.6 H (0.0-0.4) % Neut % (Auto) 75.8 H (45-73) % Lymph % (Auto) 14.0 L (20-40) % [place] % (Auto) 9.0 (2-11) % Eos % (Auto) 0.1 (0-4) % Baso % (Auto) 0.5 (0-2) % Lymph # (Auto) 1.8 (1.2-4.9) X10*3/uL [place] # (Auto) 1.1 (0.1-1.2) X10*3/uL Eos # (Auto) 0.0 (0.0-0.4) X10*3/uL Baso # (Auto) 0.1 (0.0-0.2) X10*3/uL Abs Immat Gran (auto) 0.07 H (0.00-0.03) X10*3/uL Absolute Neuts (auto) 9.6 H (2.0-8.3) x10*3/uL Absolute Nucleated RBC 0.000 (0.0-0.012) X10*3/uL Nucleated RBC % (auto) 0.0 (0.0-0.2) /100WBC PT 15.2 H (10.0-13.1) SEC INR 1.3 H (0.9-1.1) APTT 37.2 H (26.0-36.4) SEC Sodium 133 L (135-145) mmol/L Potassium 4.2 (3.3-5.1) mmol/L Chloride 100 (96-108) mmol/L Carbon Dioxide 26 (22-29) mmol/L Anion Gap 11 L (12-20) BUN 14 (9-16) mg/dL Creatinine 1.10 (0.5-1.4) mg/dL Estim Creat Clear Calc 97.3 Estimated GFR > 60 Random Glucose 103 (60-115) mg/dL Lactic Acid (0.5-2.0) mmol/L Calcium 8.5 (8.4-10.2) mg/dL Total Bilirubin 0.7 (0.0-1.0) mg/dL AST 14 (5-37) U/L ALT 10 (0-40) U/L Alkaline Phosphatase 93 (39-117) U/L Total Protein 6.1 L (6.5-8.0) g/dL Albumin 3.2 L (3.5-5.0) g/dL Lipase 17 (8-78) U/L Urine Color Urine Appearance Urine pH (5.0-9.0) Ur Specific [place] (1.005-1.025) Urine Protein (Neg-Trace) mg/dL Urine Glucose (UA) (Negative) mg/dL Urine Ketones (Negative) mg/dL Urine Blood (Negative) Urine Nitrite (Negative) Ur Leukocyte Esterase (Negative) COVID-19 (MAGY) (Negative) COVID-19 Clin Com Influenza Type A (TRICIA) (Negative) Influenza Type B (TRICIA) (Negative) Influenza A & B Note 07/12/22 07/12/22 07/12/22 Range/Units 22:57 22:57 22:57 WBC (4.8-10.8) X10*3/uL RBC (4.60-5.80) X10*6/uL Hgb (14.0-18.0) g/dl Hct (42.0-52.0) % MCV (80.0-98.0) fL MCH (27.0-33.0) pg MCHC (31.0-36.0) g/dl RDW (11.0-16.0) % Plt Count (160-400) X10*3/uL MPV (9.4-12.4) fL Immature Gran % (Auto) (0.0-0.4) % Neut % (Auto) (45-73) % Lymph % (Auto) (20-40) % [place] % (Auto) (2-11) % Eos % (Auto) (0-4) % Baso % (Auto) (0-2) % Lymph # (Auto) (1.2-4.9) X10*3/uL [place] # (Auto) (0.1-1.2) X10*3/uL Eos # (Auto) (0.0-0.4) X10*3/uL Baso # (Auto) (0.0-0.2) X10*3/uL Abs Immat Gran (auto) (0.00-0.03) X10*3/uL Absolute Neuts (auto) (2.0-8.3) x10*3/uL Absolute Nucleated RBC (0.0-0.012) X10*3/uL Nucleated RBC % (auto) (0.0-0.2) /100WBC PT (10.0-13.1) SEC INR (0.9-1.1) APTT (26.0-36.4) SEC Sodium (135-145) mmol/L Potassium (3.3-5.1) mmol/L Chloride (96-108) mmol/L Carbon Dioxide (22-29) mmol/L Anion Gap (12-20) BUN (9-16) mg/dL Creatinine (0.5-1.4) mg/dL Estim Creat Clear Calc Estimated GFR Random Glucose (60-115) mg/dL Lactic Acid 1.0 (0.5-2.0) mmol/L Calcium (8.4-10.2) mg/dL Total Bilirubin (0.0-1.0) mg/dL AST (5-37) U/L ALT (0-40) U/L Alkaline Phosphatase (39-117) U/L Total Protein (6.5-8.0) g/dL Albumin (3.5-5.0) g/dL Lipase (8-78) U/L Urine Color Urine Appearance Urine pH (5.0-9.0) Ur Specific [place] (1.005-1.025) Urine Protein (Neg-Trace) mg/dL Urine Glucose (UA) (Negative) mg/dL Urine Ketones (Negative) mg/dL Urine Blood (Negative) Urine Nitrite (Negative) Ur Leukocyte Esterase (Negative) COVID-19 (MAGY) Positive A (Negative) COVID-19 Clin Com See Note Influenza Type A (TRICIA) Negative (Negative) Influenza Type B (TRICIA) Negative (Negative) Influenza A & B Note See Note 07/12/22 Range/Units 23:06 WBC (4.8-10.8) X10*3/uL RBC (4.60-5.80) X10*6/uL Hgb (14.0-18.0) g/dl Hct (42.0-52.0) % MCV (80.0-98.0) fL MCH (27.0-33.0) pg MCHC (31.0-36.0) g/dl RDW (11.0-16.0) % Plt Count (160-400) X10*3/uL MPV (9.4-12.4) fL Immature Gran % (Auto) (0.0-0.4) % Neut % (Auto) (45-73) % Lymph % (Auto) (20-40) % [place] % (Auto) (2-11) % Eos % (Auto) (0-4) % Baso % (Auto) (0-2) % Lymph # (Auto) (1.2-4.9) X10*3/uL [place] # (Auto) (0.1-1.2) X10*3/uL Eos # (Auto) (0.0-0.4) X10*3/uL Baso # (Auto) (0.0-0.2) X10*3/uL Abs Immat Gran (auto) (0.00-0.03) X10*3/uL Absolute Neuts (auto) (2.0-8.3) x10*3/uL Absolute Nucleated RBC (0.0-0.012) X10*3/uL Nucleated RBC % (auto) (0.0-0.2) /100WBC PT (10.0-13.1) SEC INR (0.9-1.1) APTT (26.0-36.4) SEC Sodium (135-145) mmol/L Potassium (3.3-5.1) mmol/L Chloride (96-108) mmol/L Carbon Dioxide (22-29) mmol/L Anion Gap (12-20) BUN (9-16) mg/dL Creatinine (0.5-1.4) mg/dL Estim Creat Clear Calc Estimated GFR Random Glucose (60-115) mg/dL Lactic Acid (0.5-2.0) mmol/L Calcium (8.4-10.2) mg/dL Total Bilirubin (0.0-1.0) mg/dL AST (5-37) U/L ALT (0-40) U/L Alkaline Phosphatase (39-117) U/L Total Protein (6.5-8.0) g/dL Albumin (3.5-5.0) g/dL Lipase (8-78) U/L Urine Color Yellow Urine Appearance Clear Urine pH >= 9.0 (5.0-9.0) Ur Specific [place] 1.015 (1.005-1.025) Urine Protein Negative (Neg-Trace) mg/dL Urine Glucose (UA) Negative (Negative) mg/dL Urine Ketones Trace (Negative) mg/dL Urine Blood Negative (Negative) Urine Nitrite Negative (Negative) Ur Leukocyte Esterase Negative (Negative) COVID-19 (MAGY) (Negative) COVID-19 Clin Com Influenza Type A (TRICIA) (Negative) Influenza Type B (TRICIA) (Negative) Influenza A & B Note Radiology Impression Discussion of test interpretation with radiology: I have reviewed the radiologist's reading. Radiologist Impression: CT/CT abdomen pelvis w IV con IMPRESSION: * No evidence of bowel obstruction. * Stable appearance of the large ventral abdominal mesh herniorrhaphy. * There is mild mesenteric fat stranding involving a few loops of small bowel subjacent to the herniorrhaphy mesh, similar in appearance to the prior examination, however without associated bowel obstruction on the current exam. Findings could represent a mild residual enteritis or irritation related to adhesions (to the ventral abdominal wall) * Scattered colonic diverticula without evidence of diverticulitis. Fleischner guidelines were followed. Dictated By:Sesar Darnell MDSigned By:<Electronically signed by Sesar Darnell MD in [place]>07/13/22 0115 External Record Review External record reviewed: Inpatient record and Office record Discharge Plan Discharge Clinical Impression: Abdominal pain, COVID-19 virus infection Patient Disposition: Xfer SNF Transfer Details: Return to patient's care facility Instructions: Abdominal Pain (ED) Additional Instructions: Your blood work was unremarkable. Your COVID-[address] scan of your abdomen pelvis did not reveal a bowel obstruction or clear cause for your abdominal pain. Your treated with morphine 4 mg IV x2 and Zofran 4 mg IV x1 Follow-up with your doctor in 2 days. Please return to the emergency department if your symptoms get worse or if you develop any symptoms that are concerning to you. Prescriptions: No Action (DME) BD Safety-Jackie Detachable Needl 3 mL 25 gauge x 5/8 syringe See Rx Instructions .ROUTE .MEDSUPPLY Qty: 100 12RF Rx Instructions: As directed fexofenadine 180 mg tablet 180 mg PO DAILY PRN (Reason: allergy symptoms) Qty: 90 3RF albuterol sulfate [ProAir HFA] 90 mcg/actuation HFA aerosol inhaler 2 puff inhalation Q6H PRN (Reason: shortness of breath or wheezing) Qty: 8.5 0RF amlodipine 10 mg tablet 10 mg PO DAILY Qty: 90 2RF apixaban 5 mg tablet 5 mg PO BID 90 Days Qty: 180 2RF lyxjylezqe-litgdehmjhfyp-aqsa 50-325-40 mg tablet 1 tab PO BEDTIME PRN (Reason: Migraine Headache) lorazepam 1 mg tablet 1 tab PO BID venlafaxine 150 mg capsule,extended release 24hr 150 mg PO DAILY Rx Instructions: take with 37.5mg for total dose of 187.5mg venlafaxine 37.5 mg capsule,extended release 24hr 1 cap PO DAILY Rx Instructions: take with 150mg for total dose of 187.5mg tadalafil 5 mg tablet 1 tab PO DAILY latanoprost 0.005 % drops 1 drp ophthalmic (eye) BEDTIME lorazepam 1 mg tablet 1 mg PO DAILY PRN (Reason: Anxiety) fluticasone propionate 50 mcg/actuation spray,suspension 1 spray intranasal BID PRN (Reason: Allergy Symptoms) Rx Instructions: instill one spray into each nostril Gemtesa 75 mg tablet 1 tab PO DAILY omeprazole 40 mg capsule,delayed release(DR/EC) 40 mg PO DAILY@0630 cyanocobalamin (vitamin B-12) 1,000 mcg/mL solution 1,000 mcg subcut QMONTH docusate sodium [Colace] 100 mg capsule 100 mg PO BID Qty: 60 2RF oxycodone 5 mg tablet 5 mg PO Q4H PRN (Reason: pain) Qty: 12 0RF Rx Instructions: Partial Fill upon patient request. divalproex 500 mg tablet,delayed release (DR/EC) 500 mg PO DAILY ferrous sulfate [Feosol] 325 mg (65 mg iron) tablet 325 mg PO DAILY Qty: 90 2RF Advair HFA 45-21 mcg/actuation HFA aerosol inhaler 2 puff inhalation BID
[2022-07-12 22:05] VITALS: BP 114/69; PULSE 87; RESP 16; TEMP 37.1; O2SAT 97
--- NOTE | 2022-07-12 22:12 | ECG_ITS ---
Test Reason : pain Blood Pressure : / mmHG Vent. Rate : 101 BPM Atrial Rate : 101 BPM P-R Int : 160 ms QRS Dur : 082 ms QT Int : 364 ms P-R-T Axes : 051 029 045 degrees QTc Int : 471 ms Sinus tachycardia Otherwise normal ECG When compared with ECG of 08-JUN-2022 21:00, Premature atrial complexes are no longer Present Referred By: Scott Kendall Electronically Signed By:Reynold Ybarra
[2022-07-12] MEDS: 0.9 % Sodium Chloride 1,000 ML 999 ML IV (23:01)
[2022-07-12 23:04] LABS: Basophils Absolute Auto 0.1 X10*3/uL (0.0-0.2); Basophils Percent Auto 0.5 % (0-2); Eosinophils Percent Auto 0.1 % (0-4); Hematocrit 35.2 % (42.0-52.0); Hemoglobin 11.9 g/dl (14.0-18.0); Imm Gran Abs Auto 0.07 X10*3/uL (0.00-0.03); Imm Gran Pct Auto 0.6 % (0.0-0.4); Lymphocytes Absolute Auto 1.8 X10*3/uL (1.2-4.9); MANUAL DIFF FLAG NO; Mean Corpuscular HGB Conc 33.8 g/dl (31.0-36.0); Mean Corpuscular Hemoglobin 30.6 pg (27.0-33.0); Mean Corpuscular Volume 90.5 fL (80.0-98.0); Mean Platelet Volume 10.1 fL (9.4-12.4); Monocytes Absolute Auto 1.1 X10*3/uL (0.1-1.2); Neutrophils Absolute Auto 9.6 x10*3/uL (2.0-8.3); Neutrophils Percent Auto 75.8 % (45-73); Platelet Count 321 X10*3/uL (160-400); Red Blood Count 3.89 X10*6/uL (4.60-5.80); Red Cell Distribution Width 14.2 % (11.0-16.0); White Blood Count 12.7 X10*3/uL (4.8-10.8)
[2022-07-12 23:09] LABS: COVID-19 Test Positive (Negative); IDNOW Serial# 6674DD1D; INTERNATIONAL NORM RATIO 1.3 (0.9-1.1); Prothrombin Time 15.2 SEC (10.0-13.1)
[2022-07-12 23:12] LABS: Appearance Urine Clear; Color Urine Yellow; Glucose Urine UA Negative (Negative); Leukocyte Esterase Urine Negative (Negative); Nitrite Urine Negative (Negative); PH >= 9.0 (5.0-9.0); Specific Gravity - Urine 1.015 (1.005-1.025); Urine Blood Negative (Negative); Urine Ketones Trace mg/dL (Negative); Urine Protein Negative (Neg-Trace)
[2022-07-12 23:12] LABS: Partial Thromboplastin Time 37.2 SEC (26.0-36.4)
[2022-07-12 23:25] LABS: Alanine Aminotransferase 10 U/L (0-40); Albumin Level 3.2 g/dL (3.5-5.0); Alkaline Phosphatase 93 U/L (39-117); Anion Gap 11 (12-20); Aspartate Amino Transferase 14 U/L (5-37); Bilirubin Total 0.7 mg/dL (0.0-1.0); Blood Urea Nitrogen 14 mg/dL (9-16); Calcium 8.5 mg/dL (8.4-10.2); Carbon Dioxide 26 mmol/L (22-29); Chloride 100 mmol/L (96-108); Creatinine Clr Calc Pharmacy 97.3; Estimated Glomerular Filt Rate > 60; Glucose Random 103 mg/dL (60-115); Lipase 17 U/L (8-78); Potassium 4.2 mmol/L (3.3-5.1); Sodium 133 mmol/L (135-145); Total Protein 6.1 g/dL (6.5-8.0)
[2022-07-12 23:29] LABS: IDNOW Serial# 6674DD1D; Influenza A Negative (Negative); Influenza B2 Negative (Negative)
[2022-07-12 23:30] VITALS: BP 108/66; PULSE 102; RESP 14; TEMP 37.2; O2SAT 95
[2022-07-13 00:23] VITALS: RESP 18
[2022-07-13] MEDS: Morphine Sulfate 4 MG/ML CARTRIDGE IVPUSH ×2 (00:23→01:35)
[2022-07-13] MEDS: ondansetron HCL 4 MG/2 ML VIAL IVPUSH (00:23)
[2022-07-13] MEDS: iohexoL 350 MG/ML 100 ML INFUS..BTL 99 ML IV (00:48)
--- NOTE | 2022-07-13 01:40 | PC.NURSE ---
Patient lert and oriented. Medicated as per jun. Patient reports pain improvement since last administration. Call mcknight within in reach. Will continue to monitor
--- NOTE | 2022-07-13 01:55 | PC.NURSE ---
Nurse to nurse report called to Jabier Johnson, spoke to Bindu.
== END 2022-07-13 03:04 | disposition skilled nursing facility (03) ==
PROVIDERS: Emergency Provider Emergency Medicine Emergency Medical Services
DX: U07.1 COVID-19 (principal); R10.9 Unspecified abdominal pain; I10 Essential (primary) hypertension; I48.91 Unspecified atrial fibrillation; Z87.891 Personal history of nicotine dependence; Z79.899 Other long term (current) drug therapy; Z79.02 Long term (current) use of antithrombotics/antiplatelets
CPT/HCPCS: 71045; 74177; 80053; 81003; 83605; 83690; 85025; 85610; 85730; 87502; 87635; 93005; 96361; 96374; 96375; 96376; 99285; J2270; J2405; Q9967

== ENCOUNTER 2022-07-24 13:35 | Emergency (ER) | payer MEDICARE, SELFPAY ==
--- NOTE | ~2022-07-24 | XR_ITS ---
EXAMINATION: XR CHEST CLINICAL INFORMATION: Cough. COMPARISON: 07/12/2022 chest radiograph. TECHNIQUE: Frontal view of the chest was obtained. FINDINGS: No significant abnormality is noted involving the heart, lungs, mediastinum, bony thorax or soft tissues. XR/XR chest 1V IMPRESSION: No acute cardiopulmonary process.
--- NOTE | ~2022-07-24 | CT_ITS ---
EXAMINATION: CT ABDOMEN AND PELVIS WITHOUT CONTRAST CLINICAL INFORMATION: Abdominal pain. COMPARISON: CT scan abdomen pelvis 07/13/2022 TECHNIQUE: Multidetector volumetric imaging was performed from the superior aspect of the liver through the pubic symphysis. Sagittal and coronal reformatted images were obtained on the technologist's workstation. This CT examination was performed using dose optimization techniques as appropriate, variously including the following: *Automated exposure control *Adjustment of mA and/or kV according to patient size (this includes techniques or standardized protocols for targeted exams where dose is matched to indication/reason for exam; i.e. extremities or head) *Use of iterative reconstruction technique DLP: 730 mGy-cm FINDINGS: LUNG BASES: The visualized lung bases are unremarkable. LIVER, GALLBLADDER, AND BILIARY TREE: The liver is normal in size, shape, and attenuation. No focal hepatic lesion or biliary ductal dilatation is present. Status post cholecystectomy PANCREAS: Fatty atrophy of pancreas. No inflammation or mass of the pancreas. SPLEEN: Unremarkable. ADRENAL GLANDS: Unremarkable. KIDNEYS AND URETERS: The kidneys are normal in size, shape, and attenuation. No hydronephrosis, hydroureter, or calculi seen. No perinephric stranding. BLADDER: Unremarkable. GASTROINTESTINAL TRACT: There are scattered diverticula throughout the colon. There is no diverticulitis. There is no bowel wall thickening /edema. There is no bowel obstruction. There is a moderate volume of stool in the colon. The appendix is nonvisualized . The small bowel loops are unremarkable. Surgical clips at the GE junction. No evidence of recurrent hiatal hernia. ABDOMINAL WALL: Surgical mesh anterior abdominal wall. No evidence recurrent ventral wall hernia. LYMPH NODES: Normal. VASCULAR: Vascular calcifications of abdominal pelvic vasculature. There is no aneurysm. PELVIC VISCERA: Therapy seeds within the prostate. OSSEOUS STRUCTURES: Status post left hip replacement. Multilevel degenerative spondylosis spine. Status post thoracoplasty and compression deformity that is stable L1 vertebrae. Stable mild anterior wedge compression deformity of T11 inferior endplate. CT/CT abdomen pelvis wo IV con IMPRESSION: No acute abnormality CT scan abdomen pelvis. Fleischner guidelines were followed.
[2022-07-24 13:39] VITALS: BP 128/78; PULSE 57; O2SAT 98
--- NOTE | 2022-07-24 13:47 | ECG_ITS ---
Test Reason : AFIB Blood Pressure : / mmHG Vent. Rate : 083 BPM Atrial Rate : 000 BPM P-R Int : 000 ms QRS Dur : 072 ms QT Int : 408 ms P-R-T Axes : 000 037 052 degrees QTc Int : 479 ms Normal sinus rhythm Premature ventricular complexes Abnormal ECG When compared with ECG of 12-JUL-2022 23:24, Premature ventricular complexes present Referred By: Cherise Jones Electronically Signed By:JC SANTIAGO
[2022-07-24 14:01] VITALS: BP 104/63; PULSE 68; RESP 18; TEMP 36.4; O2SAT 98; BMI 27.1
--- NOTE | 2022-07-24 14:08 | ED.GENADULT ---
HPI - General Adult General Chief complaint: General Medical Stated complaint: no sleep SOB Time Seen by Provider: 07/24/22 13:46 Source: patient Mode of arrival: EMS History of Present Illness HPI narrative: 77-year-old male with extensive past surgical history and a recent exploratory lap on 06/10/2022 for no resolution of bowel obstruction. Patient presents via EMS today with grunting in pain and pointing to his mid abdomen. He denies any shortness of breath or chest pain and denies any vomiting. Related Data Home Medications Medication Instructions Recorded Confirmed divalproex 500 mg tablet,delayed 500 mg PO DAILY 05/26/20 06/09/22 release ikvjthqtjw-ujnpwzmfupoxp-lorgusbu 1 tab PO BEDTIME PRN Migraine 10/20/20 06/09/22 50 mg-325 mg-40 mg tablet Headache lorazepam 1 mg tablet 1 tab PO BID 10/20/20 06/09/22 venlafaxine 150 mg 150 mg PO DAILY 04/17/21 06/09/22 capsule,extended release 24 hr fluticasone propionate 45 2 puff inhalation BID 12/14/21 06/09/22 mcg-salmeterol 21 mcg/actuation HFA inhaler (Advair HFA) cyanocobalamin (vitamin B-12) 1,000 mcg subcut QMONTH 06/09/22 06/09/22 1,000 mcg/mL injection solution fluticasone propionate 50 1 spray intranasal BID PRN Allergy 06/09/22 06/09/22 mcg/actuation nasal Symptoms spray,suspension latanoprost 0.005 % eye drops 1 drp ophthalmic (eye) BEDTIME 06/09/22 06/09/22 lorazepam 1 mg tablet 1 mg PO DAILY PRN Anxiety 06/09/22 06/09/22 omeprazole 40 mg capsule,delayed 40 mg PO DAILY@0630 06/09/22 06/09/22 release tadalafil 5 mg tablet 1 tab PO DAILY 06/09/22 06/09/22 venlafaxine 37.5 mg 1 cap PO DAILY 06/09/22 06/09/22 capsule,extended release 24 hr vibegron 75 mg tablet (Gemtesa) 1 tab PO DAILY 06/09/22 06/09/22 Previous Rx's Medication Instructions Recorded syringe with needle, safety 3 mL #100 ea 06/02/21 25 gauge x 5/8 (BD Safety-Jackie Detachable Needle) ferrous sulfate 325 mg (65 mg 325 mg PO DAILY #90 tabs 08/08/21 iron) tablet (Feosol) fexofenadine 180 mg tablet 180 mg PO DAILY PRN allergy 08/10/21 symptoms #90 caps albuterol sulfate 90 mcg/actuation 2 puff inhalation Q6H PRN 12/22/21 aerosol inhaler (ProAir HFA) shortness of breath or wheezing #8.5 grams amlodipine 10 mg tablet 10 mg PO DAILY #90 caps 02/21/22 apixaban 5 mg tablet 5 mg PO BID 90 days #180 tabs 03/07/22 docusate sodium 100 mg capsule 100 mg PO BID #60 caps 06/17/22 (Colace) oxycodone 5 mg tablet 5 mg PO Q4H PRN pain #12 tabs 06/17/22 Allergies Allergy/AdvReac Type Severity Reaction Status Date / Time carisoprodol [From Soma] Allergy Mild MENTAL Verified 03/08/22 15:43 STATUS CHANGE, BECOMES AGGRESIVE codeine [Codeine] Allergy Mild STOMACH Verified 03/08/22 15:43 UPSET, RASH gabapentin AdvReac Intermediate lousy Verified 03/08/22 15:43 feeling Review of Systems Review of Systems: Pertinent positives and negatives as stated in HPI PMFSH Past Medical History Source: nursing notes reviewed Medical History Allergic bronchitis Anxiety and depression Asthma exacerbation Atrial fibrillation Chest tightness Constipation Degenerative disc disease Diverticular disease Dyspnea on exertion Dysuria Fatigue Fatigue Generalized anxiety disorder GERD (gastroesophageal reflux disease) Gout Headache Hospital discharge follow-up Hypertension Iron deficiency anemia Knee fracture, left Leukocytosis Low vitamin D level Moderate recurrent major depression Obesity (BMI 30-39.9) Obstructive sleep apnea Peptic ulcer disease Premature atrial complexes Prostate cancer Rash Serum potassium elevated Shortness of breath SOB (shortness of breath) on exertion Tinea cruris Vitamin B12 deficiency Vitamin D deficiency Wedge compression fracture of L1 vertebra Surgical History H/O hernia repair H/O rectal polypectomy History of bowel resection History of cholecystectomy History of colonoscopy History of hemiarthroplasty of left hip History of knee replacement procedure of left knee History of pyloroplasty Family History Family History Father Diabetes Acute kidney failure Glaucoma Mother Lung cancer Social History Social History Household Members: None Housing: Apartment Do you presently have visiting nurse or other home services: No Alcohol intake: unknown Patient Tobacco Use Status: Former Tobacco user Quit Date: Tobacco use type: Cigar e-Cigarette/Vaping Use: Currently Using Second Hand Smoke Exposure: No Advance Directives: No Advance Directives Information Provided: Yes Advance Directives Date on File: 01/30/20 service: No Current occupational status: retired Cognitive needs: No Hearing needs: Yes Vision needs: Yes Physical Exam ED Vital Signs: Vital Signs - 24 hr 07/24/22 14:01 Temperature 97.6 F Pulse Rate 68 Respiratory Rate 18 Blood Pressure 104/63 Pulse Oximetry 98 Oxygen Delivery Method Room Air BMI result Body Mass Index 27.1 VITAL SIGNS: Reviewed. GENERAL: Well developed, well nourished, in no acute distress. HEAD: Normocephalic/atraumatic EYES: PERRLA, EOMI LUNGS: Normal breath sounds. No adventitious sounds or accessory muscle use. SpO2<98> CARDIOVASCULAR: Regular rate and rhythm without noted murmurs, no JVD or lower extremity edema. ABDOMEN: Soft, diffuse tenderness without rebound, no obvious hernia noted, incision appears to be well approximated and healing without surrounding erythema or induration, there is small suture material protruding from the skin MUSCULOSKELETAL: No tenderness, deformities, or effusions noted on gross inspection. EXTREMITIES: No cyanosis, clubbing or edema. SKIN: Inspection of the skin reveals no rashes NEUROLOGIC: Alert and oriented x 3. Strength and sensation to light touch were grossly intact x 4. Medications Administered Discontinued Medications Generic Name Dose Route Start Last Admin Trade Name Freq PRN Reason Stop Dose Admin Fentanyl 25 mcg 07/24/22 15:10 07/24/22 15:54 Fentanyl Citrate/Pf 100 Mcg/2 Ml Vial IVPUSH 07/24/22 15:11 25 mcg ONCE ONE Administration Protocol Medical Decision Making Medical Decision Making MDM Narrative: 1405: 77-year-old male with presentation suggestive of possible bowel obstruction verses perforation, patient is hemodynamically stable. 1409: Bladder Scan- 487 I reviewed all investigations, lab work appears to be chronically stable, no acute findings on imaging studies, BNP and troponin are within normal limits no evidence of pneumonia on chest x-ray, patient is afebrile. Patient is otherwise discharged back to the facility with recommendations to follow-up with primary care provider and/or general surgery for continued rehabilitation. There is no clear explanation for patient's presentation other than possible gas or stool. Patient received pain medication while here in the emergency room and is otherwise comfortable on re-evaluation. Differential Diagnosis Please see the discussion above Lab Data Please see the discussion above 07/24/22 14:13 07/24/22 14:13 Labs: Lab Results 07/24/22 07/24/22 07/24/22 Range/Units 14:13 14:13 14:13 WBC 12.1 H (4.8-10.8) X10*3/uL RBC 3.91 L (4.60-5.80) X10*6/uL Hgb 11.7 L (14.0-18.0) g/dl Hct 35.3 L (42.0-52.0) % MCV 90.3 (80.0-98.0) fL MCH 29.9 (27.0-33.0) pg MCHC 33.1 (31.0-36.0) g/dl RDW 14.2 (11.0-16.0) % Plt Count 315 (160-400) X10*3/uL MPV 10.2 (9.4-12.4) fL Immature Gran % (Auto) 0.5 H (0.0-0.4) % Neut % (Auto) 46.7 (45-73) % Lymph % (Auto) 41.2 H (20-40) % [place] % (Auto) 10.3 (2-11) % Eos % (Auto) 1.0 (0-4) % Baso % (Auto) 0.3 (0-2) % Lymph # (Auto) 5.0 H (1.2-4.9) X10*3/uL [place] # (Auto) 1.2 (0.1-1.2) X10*3/uL Eos # (Auto) 0.1 (0.0-0.4) X10*3/uL Baso # (Auto) 0.0 (0.0-0.2) X10*3/uL Abs Immat Gran (auto) 0.06 H (0.00-0.03) X10*3/uL Absolute Neuts (auto) 5.6 (2.0-8.3) x10*3/uL Absolute Nucleated RBC 0.000 (0.0-0.012) X10*3/uL Nucleated RBC % (auto) 0.0 (0.0-0.2) /100WBC PT (10.0-13.1) SEC INR (0.9-1.1) Sodium 142 (135-145) mmol/L Potassium 4.0 (3.3-5.1) mmol/L Chloride 107 (96-108) mmol/L Carbon Dioxide 22 (22-29) mmol/L Anion Gap 17 (12-20) BUN 7 L (9-16) mg/dL Creatinine 1.11 (0.5-1.4) mg/dL Estim Creat Clear Calc 62.1 Estimated GFR > 60 Random Glucose 81 (60-115) mg/dL Calcium 8.8 (8.4-10.2) mg/dL Total Bilirubin 0.8 (0.0-1.0) mg/dL AST 15 (5-37) U/L ALT 9 (0-40) U/L Alkaline Phosphatase 86 (39-117) U/L Troponin I High Sens (<3.5-35.0) ng/L B-Natriuretic Peptide 50 (<100) pg/mL Total Protein 6.3 L (6.5-8.0) g/dL Albumin 3.5 (3.5-5.0) g/dL Urine Color Urine Appearance Urine pH (5.0-9.0) Ur Specific [place] (1.005-1.025) Urine Protein (Neg-Trace) mg/dL Urine Glucose (UA) (Negative) mg/dL Urine Ketones (Negative) mg/dL Urine Blood (Negative) Urine Nitrite (Negative) Ur Leukocyte Esterase (Negative) Urine Opiates Screen (Not Detect) Urine Fentanyl Screen (Not Detect) Ur Barbiturates Screen (Not Detect) Ur Phencyclidine Scrn (Not Detect) Ur Amphetamines Screen (Not Detect) U Benzodiazepines Scrn (Not Detect) Urine Cocaine Screen (Not Detect) U Marijuana (THC) Screen (Not Detect) 07/24/22 07/24/22 07/24/22 Range/Units 14:13 14:13 15:15 WBC (4.8-10.8) X10*3/uL RBC (4.60-5.80) X10*6/uL Hgb (14.0-18.0) g/dl Hct (42.0-52.0) % MCV (80.0-98.0) fL MCH (27.0-33.0) pg MCHC (31.0-36.0) g/dl RDW (11.0-16.0) % Plt Count (160-400) X10*3/uL MPV (9.4-12.4) fL Immature Gran % (Auto) (0.0-0.4) % Neut % (Auto) (45-73) % Lymph % (Auto) (20-40) % [place] % (Auto) (2-11) % Eos % (Auto) (0-4) % Baso % (Auto) (0-2) % Lymph # (Auto) (1.2-4.9) X10*3/uL [place] # (Auto) (0.1-1.2) X10*3/uL Eos # (Auto) (0.0-0.4) X10*3/uL Baso # (Auto) (0.0-0.2) X10*3/uL Abs Immat Gran (auto) (0.00-0.03) X10*3/uL Absolute Neuts (auto) (2.0-8.3) x10*3/uL Absolute Nucleated RBC (0.0-0.012) X10*3/uL Nucleated RBC % (auto) (0.0-0.2) /100WBC PT 14.6 H (10.0-13.1) SEC INR 1.3 H (0.9-1.1) Sodium (135-145) mmol/L Potassium (3.3-5.1) mmol/L Chloride (96-108) mmol/L Carbon Dioxide (22-29) mmol/L Anion Gap (12-20) BUN (9-16) mg/dL Creatinine (0.5-1.4) mg/dL Estim Creat Clear Calc Estimated GFR Random Glucose (60-115) mg/dL Calcium (8.4-10.2) mg/dL Total Bilirubin (0.0-1.0) mg/dL AST (5-37) U/L ALT (0-40) U/L Alkaline Phosphatase (39-117) U/L Troponin I High Sens 5.2 (<3.5-35.0) ng/L B-Natriuretic Peptide (<100) pg/mL Total Protein (6.5-8.0) g/dL Albumin (3.5-5.0) g/dL Urine Color Yellow Urine Appearance Clear Urine pH 7.0 (5.0-9.0) Ur Specific [place] <= 1.005 (1.005-1.025) Urine Protein Negative (Neg-Trace) mg/dL Urine Glucose (UA) Negative (Negative) mg/dL Urine Ketones Negative (Negative) mg/dL Urine Blood Negative (Negative) Urine Nitrite Negative (Negative) Ur Leukocyte Esterase Negative (Negative) Urine Opiates Screen (Not Detect) Urine Fentanyl Screen (Not Detect) Ur Barbiturates Screen (Not Detect) Ur Phencyclidine Scrn (Not Detect) Ur Amphetamines Screen (Not Detect) U Benzodiazepines Scrn (Not Detect) Urine Cocaine Screen (Not Detect) U Marijuana (THC) Screen (Not Detect) 07/24/22 Range/Units 15:15 WBC (4.8-10.8) X10*3/uL RBC (4.60-5.80) X10*6/uL Hgb (14.0-18.0) g/dl Hct (42.0-52.0) % MCV (80.0-98.0) fL MCH (27.0-33.0) pg MCHC (31.0-36.0) g/dl RDW (11.0-16.0) % Plt Count (160-400) X10*3/uL MPV (9.4-12.4) fL Immature Gran % (Auto) (0.0-0.4) % Neut % (Auto) (45-73) % Lymph % (Auto) (20-40) % [place] % (Auto) (2-11) % Eos % (Auto) (0-4) % Baso % (Auto) (0-2) % Lymph # (Auto) (1.2-4.9) X10*3/uL [place] # (Auto) (0.1-1.2) X10*3/uL Eos # (Auto) (0.0-0.4) X10*3/uL Baso # (Auto) (0.0-0.2) X10*3/uL Abs Immat Gran (auto) (0.00-0.03) X10*3/uL Absolute Neuts (auto) (2.0-8.3) x10*3/uL Absolute Nucleated RBC (0.0-0.012) X10*3/uL Nucleated RBC % (auto) (0.0-0.2) /100WBC PT (10.0-13.1) SEC INR (0.9-1.1) Sodium (135-145) mmol/L Potassium (3.3-5.1) mmol/L Chloride (96-108) mmol/L Carbon Dioxide (22-29) mmol/L Anion Gap (12-20) BUN (9-16) mg/dL Creatinine (0.5-1.4) mg/dL Estim Creat Clear Calc Estimated GFR Random Glucose (60-115) mg/dL Calcium (8.4-10.2) mg/dL Total Bilirubin (0.0-1.0) mg/dL AST (5-37) U/L ALT (0-40) U/L Alkaline Phosphatase (39-117) U/L Troponin I High Sens (<3.5-35.0) ng/L B-Natriuretic Peptide (<100) pg/mL Total Protein (6.5-8.0) g/dL Albumin (3.5-5.0) g/dL Urine Color Urine Appearance Urine pH (5.0-9.0) Ur Specific [place] (1.005-1.025) Urine Protein (Neg-Trace) mg/dL Urine Glucose (UA) (Negative) mg/dL Urine Ketones (Negative) mg/dL Urine Blood (Negative) Urine Nitrite (Negative) Ur Leukocyte Esterase (Negative) Urine Opiates Screen Not Detected (Not Detect) Urine Fentanyl Screen Not Detected (Not Detect) Ur Barbiturates Screen Not Detected (Not Detect) Ur Phencyclidine Scrn Not Detected (Not Detect) Ur Amphetamines Screen Not Detected (Not Detect) U Benzodiazepines Scrn Not Detected (Not Detect) Urine Cocaine Screen Not Detected (Not Detect) U Marijuana (THC) Screen Not Detected (Not Detect) Independent Interpretation I performed an independent interpretation of an: EKG Interpretation: Atrial fibrillation, HR-83, no STEMI, QRS/QTC is within normal limits. Radiology Impression Radiologist Impression: My interpretation is in agreement with radiology's impression of the imaging study. External Record Review External record reviewed: Inpatient record, Outpatient record and Prior outpatient labs Discharge Plan Discharge Clinical Impression: Abdominal discomfort Instructions: Abdominal Pain (ED) Additional Instructions: 1. Resume all home medications as prescribed. 2. Follow-up with your primary care provider as well as your general surgeon for further evaluation and outpatient management. Return to the ER for any worsening symptoms. Prescriptions: No Action (DME) BD Safety-Jackie Detachable Needl 3 mL 25 gauge x 5/8 syringe See Rx Instructions .ROUTE .MEDSUPPLY Qty: 100 12RF Rx Instructions: As directed fexofenadine 180 mg tablet 180 mg PO DAILY PRN (Reason: allergy symptoms) Qty: 90 3RF albuterol sulfate [ProAir HFA] 90 mcg/actuation HFA aerosol inhaler 2 puff inhalation Q6H PRN (Reason: shortness of breath or wheezing) Qty: 8.5 0RF amlodipine 10 mg tablet 10 mg PO DAILY Qty: 90 2RF apixaban 5 mg tablet 5 mg PO BID 90 Days Qty: 180 2RF gevxolumvx-jfjsqutwfoipn-cjfs 50-325-40 mg tablet 1 tab PO BEDTIME PRN (Reason: Migraine Headache) lorazepam 1 mg tablet 1 tab PO BID venlafaxine 150 mg capsule,extended release 24hr 150 mg PO DAILY Rx Instructions: take with 37.5mg for total dose of 187.5mg venlafaxine 37.5 mg capsule,extended release 24hr 1 cap PO DAILY Rx Instructions: take with 150mg for total dose of 187.5mg tadalafil 5 mg tablet 1 tab PO DAILY latanoprost 0.005 % drops 1 drp ophthalmic (eye) BEDTIME lorazepam 1 mg tablet 1 mg PO DAILY PRN (Reason: Anxiety) fluticasone propionate 50 mcg/actuation spray,suspension 1 spray intranasal BID PRN (Reason: Allergy Symptoms) Rx Instructions: instill one spray into each nostril Gemtesa 75 mg tablet 1 tab PO DAILY omeprazole 40 mg capsule,delayed release(DR/EC) 40 mg PO DAILY@0630 cyanocobalamin (vitamin B-12) 1,000 mcg/mL solution 1,000 mcg subcut QMONTH docusate sodium [Colace] 100 mg capsule 100 mg PO BID Qty: 60 2RF oxycodone 5 mg tablet 5 mg PO Q4H PRN (Reason: pain) Qty: 12 0RF Rx Instructions: Partial Fill upon patient request. divalproex 500 mg tablet,delayed release (DR/EC) 500 mg PO DAILY ferrous sulfate [Feosol] 325 mg (65 mg iron) tablet 325 mg PO DAILY Qty: 90 2RF Advair HFA 45-21 mcg/actuation HFA aerosol inhaler 2 puff inhalation BID Referrals: Po,Thania Childs MD [Primary Care Provider] -
[2022-07-24 14:23] LABS: MANUAL DIFF FLAG NO
[2022-07-24 14:28] LABS: Basophils Percent Auto 0.3 % (0-2); Eosinophils Absolute Auto 0.1 X10*3/uL (0.0-0.4); Hematocrit 35.3 % (42.0-52.0); Hemoglobin 11.7 g/dl (14.0-18.0); Imm Gran Abs Auto 0.06 X10*3/uL (0.00-0.03); Imm Gran Pct Auto 0.5 % (0.0-0.4); Lymphocytes Percent Auto 41.2 % (20-40); Mean Corpuscular HGB Conc 33.1 g/dl (31.0-36.0); Mean Corpuscular Hemoglobin 29.9 pg (27.0-33.0); Mean Corpuscular Volume 90.3 fL (80.0-98.0); Mean Platelet Volume 10.2 fL (9.4-12.4); Monocytes Absolute Auto 1.2 X10*3/uL (0.1-1.2); Monocytes Percent Auto 10.3 % (2-11); Neutrophils Absolute Auto 5.6 x10*3/uL (2.0-8.3); Neutrophils Percent Auto 46.7 % (45-73); Platelet Count 315 X10*3/uL (160-400); Red Blood Count 3.91 X10*6/uL (4.60-5.80); Red Cell Distribution Width 14.2 % (11.0-16.0); White Blood Count 12.1 X10*3/uL (4.8-10.8)
[2022-07-24 14:43] LABS: INTERNATIONAL NORM RATIO 1.3 (0.9-1.1); Prothrombin Time 14.6 SEC (10.0-13.1)
[2022-07-24 14:53] LABS: Alanine Aminotransferase 9 U/L (0-40); Albumin Level 3.5 g/dL (3.5-5.0); Alkaline Phosphatase 86 U/L (39-117); Anion Gap 17 (12-20); Aspartate Amino Transferase 15 U/L (5-37); Bilirubin Total 0.8 mg/dL (0.0-1.0); Blood Urea Nitrogen 7 mg/dL (9-16); Calcium 8.8 mg/dL (8.4-10.2); Carbon Dioxide 22 mmol/L (22-29); Chloride 107 mmol/L (96-108); Creatinine Clr Calc Pharmacy 62.1; Estimated Glomerular Filt Rate > 60; Glucose Random 81 mg/dL (60-115); Sodium 142 mmol/L (135-145); Total Protein 6.3 g/dL (6.5-8.0)
[2022-07-24 15:03] LABS: Troponin-I High Sensitivity 5.2 ng/L (<3.5-35.0)
[2022-07-24 15:13] LABS: B Type Natriuretic Peptide 50 pg/mL (<100)
[2022-07-24 15:29] LABS: Appearance Urine Clear; Color Urine Yellow; Glucose Urine UA Negative (Negative); Leukocyte Esterase Urine Negative (Negative); Nitrite Urine Negative (Negative); Specific Gravity - Urine <= 1.005 (1.005-1.025); Urine Blood Negative (Negative); Urine Ketones Negative (Negative); Urine Protein Negative (Neg-Trace)
[2022-07-24 15:35] LABS: Amphetamine Screen Urine Not Detected (Not Detect); Barbiturates, Urine Not Detected (Not Detect); Benzodiazepines Screen Urine Not Detected (Not Detect); Cannabinoid Screen Urine Not Detected (Not Detect); Cocaine Screen Urine Not Detected (Not Detect); Fentanyl, urine Not Detected (Not Detect); Opiate Screen Urine Not Detected (Not Detect); Phencyclidine Screen Urine Not Detected (Not Detect)
[2022-07-24] MEDS: fentaNYL citrate/PF 100 MCG/2 ML VIAL 25 MCG IVPUSH (15:54)
== END 2022-07-24 17:46 | disposition home or self-care (01) ==
PROVIDERS: Emergency Provider Student in an Organized Health Care Education/Training Program; PCP Internal Medicine
DX: R10.9 Unspecified abdominal pain (principal); R06.02 Shortness of breath; I10 Essential (primary) hypertension; I48.91 Unspecified atrial fibrillation; Z87.891 Personal history of nicotine dependence; Z79.899 Other long term (current) drug therapy
CPT/HCPCS: 36415; 51798; 71045; 74176; 80053; 80307; 81003; 83880; 84484; 85025; 85610; 93005; 96374; 99284; J3010

== ENCOUNTER 2022-07-25 00:51 | Emergency (ER) | payer MEDICARE, SELFPAY ==
[2022-07-25] VITALS (8 sets, daily range): BP systolic 108–142; BP diastolic 59–85; PULSE 83–98; RESP 14–20; TEMP 34.4–37; O2SAT 96–100; BMI 32.1
--- NOTE | ~2022-07-25 | CT_ITS ---
EXAMINATION: CT HEAD WITHOUT CONTRAST CLINICAL INFORMATION: Fall COMPARISON: 02/13/2022 TECHNIQUE: Contiguous axial imaging was performed from the skull base to vertex without intravenous contrast. This CT examination was performed using dose optimization techniques as appropriate, variously including the following: * Automated exposure control * Adjustment of mA and/or kV according to patient size (this includes techniques or standardized protocols for targeted exams where dose is matched to indication/reason for exam; i.e. extremities or head) Use of iterative reconstruction technique DLP: 788 mGy-cm. FINDINGS: There is no evidence of acute intracranial hemorrhage or territorial infarction. No abnormal mass effect or midline shift is seen. Valentin to white matter differentiation is well preserved. No extra-axial fluid collections are identified. No hydrocephalus. Proportional prominence of the ventricles and sulcal spaces is consistent with moderate volume loss. Patchy periventricular and deep white matter hypoattenuation is consistent with mild small vessel ischemic changes. Right frontal soft tissue swelling/subgaleal hematoma. No calvarial fracture. The mastoid air cells and visualized portions of the paranasal sinuses are well aerated. CT/CT head/brain wo IV con IMPRESSION: No acute intracranial pathology. Chronic volume loss with small vessel ischemic change.
--- NOTE | ~2022-07-25 | CT_ITS ---
EXAMINATION: CT HEAD WITHOUT CONTRAST CLINICAL INFORMATION: Head injury status post fall, rule out bleed. COMPARISON: Head CT scan dated 07/25/2022. TECHNIQUE: Contiguous axial imaging was performed from the skull base to vertex without intravenous administration of contrast. Coronal and sagittal reformatted images were obtained. This CT examination was performed using dose optimization techniques as appropriate, variously including the following: *Automated exposure control *Adjustment of mA and/or kV according to patient size (this includes techniques or standardized protocols for targeted exams where dose is matched to indication/reason for exam; i.e. extremities or head) *Use of iterative reconstruction technique DLP: 806 mGy-cm FINDINGS: There is mild widening of the cortical sulci and associated ventriculomegaly. The lateral ventricles are symmetrical. The third and fourth ventricles are in their normal midline position. The basilar and prepontine cisterns are unremarkable. Mild periventricular microvascular changes are seen. There is no acute intra or extracerebral abnormality. There is no mass effect or midline shift. Mild interval decrease in soft tissue hematoma on the right frontal region. No significant underlying abnormality. Sections through the bony calvarium are unremarkable. The orbits are intact. The paranasal sinuses show minimal mucosal thickening in the ethmoid and left sphenoid sinuses. The mastoid air cells are clear. CT/CT head/brain wo IV con IMPRESSION: 1. No acute intracranial pathology. 2. Mild interval decrease in right frontal soft tissue hematoma. Correlate with physical exam.
--- NOTE | 2022-07-25 01:21 | ED_ITS ---
HPI - Abdominal Pain General Chief Complaint: Abdominal Pain Stated Complaint: Sob/Abd Pain Time Seen by Provider: 07/25/22 01:05 History of Present Illness HPI narrative: Patient is 76 years or with history of multiple abdominal surgeries consists of colectomies abdominal wall hernia repair and open gallbladder resection had exploratory laparotomy and lysis of adhesions for SBO on 06/10/2022 with history of AFib on Eliquis patient was seen earlier today and left home CT scan done at that time for the abdomen was negative for any SBO labs were stable patient went home feeling weak so plan to come to the ER again was feeling increased weakness while coming out of the car patient lost balance and fell hitting his right forehead to the ground superficial skin tears on the t left upper extremity no vomiting no diarrhea no fever. On arrival patient temperature was 94 degrees F per rectum blood pressure 108/59 pulse rate 92 per patient's brother patient unable to take care of himself would like him to custodial. Patient with nursing homes few bareback Related Data Home Medications Medication Instructions Recorded Confirmed divalproex 500 mg tablet,delayed 500 mg PO DAILY 05/26/20 06/09/22 release [id number]-fdijtoilsvlje-[id number] 1 tab PO BEDTIME PRN Migraine 10/20/20 06/09/22 50 mg-325 mg-40 mg tablet Headache lorazepam 1 mg tablet 1 tab PO BID 10/20/20 06/09/22 venlafaxine 150 mg 150 mg PO DAILY 04/17/21 06/09/22 capsule,extended release 24 hr fluticasone propionate 45 2 puff inhalation BID 12/14/21 06/09/22 mcg-salmeterol 21 mcg/actuation HFA inhaler (Advair HFA) cyanocobalamin (vitamin B-12) 1,000 mcg subcut QMONTH 06/09/22 06/09/22 1,000 mcg/mL injection solution fluticasone propionate 50 1 spray intranasal BID PRN Allergy 06/09/22 06/09/22 mcg/actuation nasal Symptoms spray,suspension latanoprost 0.005 % eye drops 1 drp ophthalmic (eye) BEDTIME 06/09/22 06/09/22 lorazepam 1 mg tablet 1 mg PO DAILY PRN Anxiety 06/09/22 06/09/22 omeprazole 40 mg capsule,delayed 40 mg PO DAILY@0630 06/09/22 06/09/22 release tadalafil 5 mg tablet 1 tab PO DAILY 06/09/22 06/09/22 venlafaxine 37.5 mg 1 cap PO DAILY 06/09/22 06/09/22 capsule,extended release 24 hr vibegron 75 mg tablet (Gemtesa) 1 tab PO DAILY 06/09/22 06/09/22 Previous Rx's Medication Instructions Recorded syringe with needle, safety 3 mL #100 ea 06/02/21 25 gauge x 5/8 (BD Safety-Jackie Detachable Needle) ferrous sulfate 325 mg (65 mg 325 mg PO DAILY #90 tabs 08/08/21 iron) tablet (Feosol) fexofenadine 180 mg tablet 180 mg PO DAILY PRN allergy 08/10/21 symptoms #90 caps albuterol sulfate 90 mcg/actuation 2 puff inhalation Q6H PRN 12/22/21 aerosol inhaler (ProAir HFA) shortness of breath or wheezing #8.5 grams amlodipine 10 mg tablet 10 mg PO DAILY #90 caps 02/21/22 apixaban 5 mg tablet 5 mg PO BID 90 days #180 tabs 03/07/22 docusate sodium 100 mg capsule 100 mg PO BID #60 caps 06/17/22 (Colace) oxycodone 5 mg tablet 5 mg PO Q4H PRN pain #12 tabs 06/17/22 Allergies Allergy/AdvReac Type Severity Reaction Status Date / Time carisoprodol [From Soma] Allergy Mild MENTAL Verified 03/08/22 15:43 STATUS CHANGE, BECOMES AGGRESIVE codeine [Codeine] Allergy Mild STOMACH Verified 03/08/22 15:43 UPSET, RASH gabapentin AdvReac Intermediate lousy Verified 03/08/22 15:43 feeling Review of Systems Review of Systems Yes all other systems are reviewed and are negative ON LICENSE OF [facility] Past Medical History Medical History Allergic bronchitis Anxiety and depression Asthma exacerbation Atrial fibrillation Chest tightness Constipation Degenerative disc disease Diverticular disease Dyspnea on exertion Dysuria Fatigue Fatigue Generalized anxiety disorder GERD (gastroesophageal reflux disease) Gout Headache Hospital discharge follow-up Hypertension Iron deficiency anemia Knee fracture, left Leukocytosis Low vitamin D level Moderate recurrent major depression Obesity (BMI 30-39.9) Obstructive sleep apnea Peptic ulcer disease Premature atrial complexes Prostate cancer Rash Serum potassium elevated Shortness of breath SOB (shortness of breath) on exertion Tinea cruris Vitamin B12 deficiency Vitamin D deficiency Wedge compression fracture of L1 vertebra Surgical History H/O hernia repair H/O rectal polypectomy History of bowel resection History of cholecystectomy History of colonoscopy History of hemiarthroplasty of left hip History of knee replacement procedure of left knee History of pyloroplasty Family History Family History Father Diabetes Acute kidney failure Glaucoma Mother Lung cancer Social History Social History Household Members: None Housing: Apartment Do you presently have visiting nurse or other home services: No Alcohol intake: unknown Patient Tobacco Use Status: Former Tobacco user Quit Date: Tobacco use type: Cigar e-Cigarette/Vaping Use: Currently Using Second Hand Smoke Exposure: No Advance Directives: Yes Advance Directives Information Provided: No Advance Directives on File: Yes Advance Directives Date on File: 07/03/22 service: No Current occupational status: retired Cognitive needs: No Hearing needs: Yes Vision needs: Yes Physical Exam ED Vital Signs: Vital Signs - 24 hr 07/25/22 00:57 07/25/22 02:22 Temperature 94.0 F L 97.9 F Pulse Rate 92 Respiratory Rate 14 Blood Pressure 108/59 L Pulse Oximetry 98 Oxygen Delivery Method Room Air BMI result Body Mass Index 32.1 Appearance: Alert. Oriented X3. No acute distress. Eyes: PERRLA, No Nystagmus ENT: Pharynx normal. Oral Mucosa moist hematoma right forehead Neck: Normal inspection. Neck supple. CVS: Normal heart rate and rhythm. Pulses normal. Respiratory: No respiratory distress. Equal air entry bilateral, no wheezing/rales/rhonchi Abdomen: Soft, distended abdomen diffusely tender bowel sounds are present Bowel sounds are present, no mass palpable, no CVA tenderness Skin: Skin warm and dry. Normal skin color. Normal skin turgor. Extremities: No lower extremity edema. No calf tenderness multiple skin tears on the left forearm Neuro: Oriented X 3. No motor deficit. No sensory deficit.No cerebellar signs , cranial nerves II-XII intact Medical Decision Making Medical Decision Making [facility] Narrative: Patient with weakness unable to be managed at home was seen earlier today and left comes back for increased weakness with mechanical fall CT head is negative will get a case management consult for placement Lab Data [facility] Lab Attestation statement: I reviewed the patient's lab results. Labs were done few hours ago when patient was seen in the ER External Record Review External record reviewed: Inpatient record Medications Administered Discontinued Medications Generic Name Dose Route Start Last Admin Trade Name Freq PRN Reason Stop Dose Admin Morphine Sulfate 4 mg 07/25/22 03:17 07/25/22 03:48 Morphine Sulfate 4 Mg/Ml Cartridge IVPUSH 07/25/22 03:18 4 mg ONCE ONE Administration Protocol Ondansetron HCl 4 mg 07/25/22 03:17 07/25/22 03:47 Ondansetron Hcl 4 Mg/2 Ml Vial IVPUSH 07/25/22 03:18 4 mg ONCE ONE Administration Discharge Plan Discharge Clinical Impression: Abdominal pain, chronic, generalized, Weakness Patient Disposition: Still a Patient Prescriptions: No Action (DME) BD Safety-Jackie Detachable Needl 3 mL 25 gauge x 5/8 syringe See Rx Instructions .ROUTE .MEDSUPPLY Qty: 100 12RF Rx Instructions: As directed fexofenadine 180 mg tablet 180 mg PO DAILY PRN (Reason: allergy symptoms) Qty: 90 3RF albuterol sulfate [ProAir HFA] 90 mcg/actuation HFA aerosol inhaler 2 puff inhalation Q6H PRN (Reason: shortness of breath or wheezing) Qty: 8.5 0RF amlodipine 10 mg tablet 10 mg PO DAILY Qty: 90 2RF apixaban 5 mg tablet 5 mg PO BID 90 Days Qty: 180 2RF fglznpkkgk-nscpxfesciyvg-jagt 50-325-40 mg tablet 1 tab PO BEDTIME PRN (Reason: Migraine Headache) lorazepam 1 mg tablet 1 tab PO BID venlafaxine 150 mg capsule,extended release 24hr 150 mg PO DAILY Rx Instructions: take with 37.5mg for total dose of 187.5mg venlafaxine 37.5 mg capsule,extended release 24hr 1 cap PO DAILY Rx Instructions: take with 150mg for total dose of 187.5mg tadalafil 5 mg tablet 1 tab PO DAILY latanoprost 0.005 % drops 1 drp ophthalmic (eye) BEDTIME lorazepam 1 mg tablet 1 mg PO DAILY PRN (Reason: Anxiety) fluticasone propionate 50 mcg/actuation spray,suspension 1 spray intranasal BID PRN (Reason: Allergy Symptoms) Rx Instructions: instill one spray into each nostril Gemtesa 75 mg tablet 1 tab PO DAILY omeprazole 40 mg capsule,delayed release(DR/EC) 40 mg PO DAILY@0630 cyanocobalamin (vitamin B-12) 1,000 mcg/mL solution 1,000 mcg subcut QMONTH docusate sodium [Colace] 100 mg capsule 100 mg PO BID Qty: 60 2RF oxycodone 5 mg tablet 5 mg PO Q4H PRN (Reason: pain) Qty: 12 0RF Rx Instructions: Partial Fill upon patient request. divalproex 500 mg tablet,delayed release (DR/EC) 500 mg PO DAILY ferrous sulfate [Feosol] 325 mg (65 mg iron) tablet 325 mg PO DAILY Qty: 90 2RF Advair HFA 45-21 mcg/actuation HFA aerosol inhaler 2 puff inhalation BID
[2022-07-25] MEDS: ondansetron HCL 4 MG/2 ML VIAL IVPUSH (03:47)
[2022-07-25] MEDS: Morphine Sulfate 4 MG/ML CARTRIDGE IVPUSH ×2 (03:48→10:05)
--- NOTE | 2022-07-25 05:46 | PC.NURSE ---
Pt alert and oriented to self. Confused. Reports right sided abd pain, 10/. Medicated as ordered with relief. Will continue to monitor.
--- NOTE | 2022-07-25 05:48 | PC.NURSE ---
Pt is a high fall risk, confused, getting out of bed. Requiring multiple redirecting for safety. 1:1 observer at bedside.
--- NOTE | 2022-07-25 07:07 | PC.NURSE ---
Patient with poor safety aware charge loader aware no distress noted patient complaint of pain will notify PCT sitting with patient needs constant redirection will CTM
[2022-07-25] MEDS: LORazepam 1 MG TABLET PO ×2 (07:31→20:20)
--- NOTE | 2022-07-25 08:04 | PC.NURSE ---
Continued agitation noted getting out of bed pushing PCT provider aware awaiting orders
[2022-07-25] MEDS: LORazepam 2 MG/ML VIAL 1 MG IVPUSH (08:13)
--- NOTE | 2022-07-25 08:28 | PC.NURSE ---
Patient tolerated walking with physical therapist and walker remains confused with poor safety awareness needs constant redirection will CTM
--- NOTE | 2022-07-25 08:37 | PC.NURSE ---
Patient continues to try to get out of bed not following redirection becoming combative trying to strike staff provider aware awaiting orders.
[2022-07-25] MEDS: Haloperidol Lactate 5 MG/ML VIAL IM ×3 (08:45→21:50)
[2022-07-25 08:52] LABS: COVID-19 Test Positive (Negative); IDNOW Serial# 55D5AD1C
--- NOTE | 2022-07-25 09:05 | PHA.MEDREC ---
Pharmacy Consult ? Medication Reconciliation Pharmacy has completed the medication reconciliation. Patient is confused and only wants to get up. Med rec completed by last disachrge summary, claim history and PCP notes. Kiersten Rodríguez, LiatD
--- NOTE | 2022-07-25 09:09 | PHA.MEDREC ---
Pharmacy Consult ? Medication Reconciliation Pharmacy has completed the medication reconciliation. Pharmacy has completed the medication reconciliation. Patient is confused and only wants to get up. Med rec completed by last disachrge summary, claim history and PCP notes. Patient did report lorazepam daily hwoever I left it has the prescription state in home list. Patient kept asking for pain medication. I asked if he takes any at home and reported no. Patient state he does not use inhaler at home. Per PCP notes, patient is not adherent to inhaler therefore I left in home list as patient should be on inhaler. Eliquis last filled in February, however last admission patient report he only take eliquis once a day there he would still have some. Per PCP note patient was to continue anticoagulatuion. Kiersten Rodríguez, LiatD
--- NOTE | 2022-07-25 09:27 | MHC.CM.ED ---
Received case management consult from Dr Parada overnight. Patient was discharged from [facility] on 07/19 with [facility]. Patient came to the ER on 07/24 for insomnia and was discharged home. Patient returned to ER due to shortness of breath. Physical therapy eval completed. Short term rehab is being recommended. Went to meet with patient in regards to discharge planning. Patient is alert to self and place only. Patient is very hard of hearing. Patient stated he had abd surgery 20 years ago and is complaining a leftover stitch. T/W did see a portion of a stitch sticking out of abd. Chen JOSHUA aware of stitch and confusion. Patient does not want to return to [facility] because he doesn't feel he received any therapy there. Referral broadcasted in [facility] at this time. Continue to monitor for d/c needs.
--- NOTE | 2022-07-25 09:33 | MHC.CM.ED ---
Received case management consult from Dr Parada overnight. Patient was discharged from [facility] on 07/19 with [facility]as [facility]. Patient came to the ER on 07/24 for insomnia and was discharged home. Patient returned to ER due to shortness of breath. Physical therapy eval completed. Short term rehab is being recommended. Went to meet with patient in regards to discharge planning. Patient is alert to self and place only. Patient is very hard of hearing. Patient stated he had abd surgery 20 years ago and is complaining a leftover stitch. T/W did see a portion of a stitch sticking out of abd. Chen JOSHUA aware of stitch and confusion. Patient does not want to return to [facility] because he doesn't feel he received any therapy there. Patient received 1 time Haldol today. Will not be able to be placed for at least 24 hours. No referral sent at this time. Continue to monitor for d/c needs.
--- NOTE | 2022-07-25 09:55 | PC.NURSE ---
Agitation continues MD aware patient remains watch for safety order for reported pain will CTM
[2022-07-25] MEDS: amLODIPine Besylate 10 MG TABLET PO (10:04)
[2022-07-25] MEDS: Docusate Sodium 100 MG CAPSULE PO ×2 (10:04→20:20)
--- NOTE | 2022-07-25 10:24 | PC.NURSE ---
Patient a little calmer remains watch for safety will CTM
--- NOTE | 2022-07-25 13:59 | PC.NURSE ---
Psych at bedsdie patient tolerated PO food and fluids will CTM
[2022-07-25 14:15] LABS: MANUAL DIFF FLAG NO
[2022-07-25 14:18] LABS: Basophils Absolute Auto 0.1 X10*3/uL (0.0-0.2); Basophils Percent Auto 0.6 % (0-2); Eosinophils Absolute Auto 0.1 X10*3/uL (0.0-0.4); Eosinophils Percent Auto 1.1 % (0-4); Hematocrit 34.1 % (42.0-52.0); Hemoglobin 11.4 g/dl (14.0-18.0); Imm Gran Abs Auto 0.03 X10*3/uL (0.00-0.03); Imm Gran Pct Auto 0.3 % (0.0-0.4); Lymphocytes Absolute Auto 3.9 X10*3/uL (1.2-4.9); Lymphocytes Percent Auto 35.7 % (20-40); Mean Corpuscular HGB Conc 33.4 g/dl (31.0-36.0); Mean Corpuscular Hemoglobin 30.6 pg (27.0-33.0); Mean Corpuscular Volume 91.4 fL (80.0-98.0); Mean Platelet Volume 9.8 fL (9.4-12.4); Monocytes Absolute Auto 1.3 X10*3/uL (0.1-1.2); Monocytes Percent Auto 12.2 % (2-11); Neutrophils Absolute Auto 5.5 x10*3/uL (2.0-8.3); Neutrophils Percent Auto 50.1 % (45-73); Platelet Count 288 X10*3/uL (160-400); Red Blood Count 3.73 X10*6/uL (4.60-5.80); Red Cell Distribution Width 14.4 % (11.0-16.0); White Blood Count 10.9 X10*3/uL (4.8-10.8)
[2022-07-25 14:24] LABS: Ammonia 17 umol/L (13-55)
--- NOTE | 2022-07-25 14:25 | P.CNPS_ITS ---
History of Present Illness Date of Service: 07/25/2022 Chief Complaint: Sob/Pain Reason for Consult: combative/confused Requesting physician: Chen Tiwari Discussed with referring provider: Yes Sources of Information: patient interviewed, chart reviewed and crisis/core team assessment reviewed HPI Narrative: Mr. Salas is a 77 year-old male with hx of abdominal surgeries, discharged on 06/29/2022 after exploratory laparotomy, bowel obstruction. Pt was stepped down to nursing facility. He came back to ED on 07/12 due to abdominal pain, sent back to nursing facility. He return on 07/24 due to abdominal pain. He again was brought to ED and found outside by staff on the floor covered with blanket. It is unclear to me if he is still at nursing facility or if pt was discharged home. Pt presents as confused. He is not able to tell this filing writer where he is, date, month or year. He states he does not know why he is here. His attention is poor. He does remember that he has been seen by Dr. Anastacia Park for psychiatry but can't tell this filing writer condition he was being treated for. Pt has had episodes of agitation requiring IM medications. [facility] Medical History Allergic bronchitis Anxiety and depression Asthma exacerbation Atrial fibrillation Chest tightness Constipation Degenerative disc disease Diverticular disease Dyspnea on exertion Dysuria Fatigue Fatigue Generalized anxiety disorder GERD (gastroesophageal reflux disease) Gout Headache Hospital discharge follow-up Hypertension Iron deficiency anemia Knee fracture, left Leukocytosis Low vitamin D level Moderate recurrent major depression Obesity (BMI 30-39.9) Obstructive sleep apnea Peptic ulcer disease Premature atrial complexes Prostate cancer Rash Serum potassium elevated Shortness of breath SOB (shortness of breath) on exertion Tinea cruris Vitamin B12 deficiency Vitamin D deficiency Wedge compression fracture of L1 vertebra Surgical History H/O hernia repair H/O rectal polypectomy History of bowel resection History of cholecystectomy History of colonoscopy History of hemiarthroplasty of left hip History of knee replacement procedure of left knee History of pyloroplasty Diagnostics Vital Signs (24Hr): Vital Signs - 24 hr 07/25/22 00:57 07/25/22 02:22 07/25/22 07:17 Temperature 94.0 F L 97.9 F 97.2 F Pulse Rate 92 83 Respiratory Rate 14 20 Blood Pressure 108/59 L 119/73 Pulse Oximetry 98 99 Oxygen Delivery Method Room Air Room Air 07/25/22 08:32 Temperature Pulse Rate 83 Respiratory Rate Blood Pressure 119/73 Pulse Oximetry 99 Oxygen Delivery Method BMI result Body Mass Index 32.1 Labs 07/25/22 14:11 Labs: Laboratory Results - last 48 hr 07/25/22 07/25/22 07/25/22 08:32 14:11 14:11 WBC 10.9 H RBC 3.73 L Hgb 11.4 L Hct 34.1 L MCV 91.4 MCH 30.6 MCHC 33.4 RDW 14.4 Plt Count 288 MPV 9.8 Immature Gran % (Auto) 0.3 Neut % (Auto) 50.1 Lymph % (Auto) 35.7 [place]bot % (Auto) 12.2 H Eos % (Auto) 1.1 Baso % (Auto) 0.6 Lymph # (Auto) 3.9 [place] # (Auto) 1.3 H Eos # (Auto) 0.1 Baso # (Auto) 0.1 Abs Immat Gran (auto) 0.03 Absolute Neuts (auto) 5.5 Absolute Nucleated RBC 0.000 Nucleated RBC % (auto) 0.0 Ammonia 17 COVID-19 (MAGY) Positive A COVID-19 Clin Com See Note Imaging Radiology Impressions: ITS Impressions Head CT 07/25/22 02:20 IMPRESSION: No acute intracranial pathology. Chronic volume loss with small vessel ischemic change. Mental Status Exam Mental Status Exam Narrative: Appearance: wearing hospital gown, hematoma on right forehead, scratches on left arm, in bed, in NAD Behavior: calmer Speech: clear, delayed response, spontaneous Psychomotor: at time of interview pt calmer, but soon after pt became increasingly more agitated TP: disorganized, some appropriate responses TC: confused Mood: tired Affect: congruent SI: none HI: none VH/AH: no overt s/s Delusions: no overt signs Insight/judgment: impaired x 2. Memory/cog: alert, not oriented to place, month, date, year or situation. Medications Medications Current Medications Acetaminophen/Butalbital/Caffeine (Butalb/Acetamin/Caff 50/325/40 Tablet) 1 tab PO BEDTIME PRN PRN Reason: Migraine Headache Albuterol Sulfate (Albuterol Sulfate 90 Mcg 8 Gm Inhaler) 2 puff INHALE Q6H PRN PRN Reason: shortness of breath or wheezing Amlodipine Besylate (Amlodipine Besylate 10 Mg Tablet) 10 mg PO DAILY [facility]; Protocol Last Admin: 07/25/22 10:04 Dose: 10 mg Apixaban (Apixaban 5 Mg Tablet) 5 mg PO BID [facility] Cyanocobalamin (Cyanocobalamin (Vitamin B-12) 1,000 Mcg/Ml Vial) 1,000 mcg SUBCUT QMONTH [facility] Docusate Sodium (Docusate Sodium 100 Mg Capsule) 100 mg PO BID [facility] Last Admin: 07/25/22 10:04 Dose: 100 mg Ferrous Sulfate (Ferrous Sulfate 324 Mg Tablet.) 324 mg PO DAILY [facility] Fluticasone Propionate (Fluticasone Propionate Nasal 16 Gm [place]) 1 spray NOSTRIL-B BID PRN PRN Reason: Allergy Symptoms Fluticasone/Vilanterol (Fluticasone/Vilanterol 100/25 Blst.W.Dev) 1 puff INHALE RDAILY [facility] Latanoprost (Latanoprost 0.005 % Ophth Saira 2.5 Ml Drops) 1 drop EYE-BOTH BEDTIME [facility] Loratadine (Loratadine 10 Mg Tablet) 10 mg PO DAILY PRN PRN Reason: allergy symptoms Lorazepam (Lorazepam 1 Mg Tablet) 1 mg PO DAILY PRN PRN Reason: Anxiety Lorazepam (Lorazepam 1 Mg Tablet) 1 mg PO BID [facility] Last Admin: 07/25/22 08:44 Dose: Not Given Non-Formulary Medication (Vibegron [Gemtesa]) 1 tab PO DAILY [facility] Last Admin: 07/25/22 08:53 Dose: Not Given Omeprazole (Omeprazole 40 Mg Capsule.) 40 mg PO DAILY@0630 [facility] Pharmacy Consult (Consult Rx Perform Med Rec) 1 each MISCELLANE ONCE PRN PRN Reason: Consult order Venlafaxine HCl (Venlafaxine Hcl Er 150 Mg Cap.Er.24h) 150 mg PO DAILY [facility] Allergies Allergies Allergy/AdvReac Type Severity Reaction Status Date / Time carisoprodol [From Soma] Allergy Mild MENTAL Verified 03/08/22 15:43 STATUS CHANGE, BECOMES AGGRESIVE codeine [Codeine] Allergy Mild STOMACH Verified 03/08/22 15:43 UPSET, RASH gabapentin AdvReac Intermediate lousy Verified 03/08/22 15:43 feeling Assessment & Plan Assessment & Plan (1) Delirium: Status: Acute Code(s): R41.0 - Disorientation, unspecified Plan Mr. Salas is a 77 year-old male with hx of abdominal surgeries, recent ED visits for abdominal pain with negative work up for complications of recent seda renetta or reoccurrence of bowel obstruction. Pt presents as disoriented, poor attention, episodes of combative behaviors. His presentation appears not to be his baseline and consistent with delirium of unclear medical etiology at this point. He does have hx of psychiatric condition (in the past has been on depakote, effexor) but his presentation is not consistent with exacerbation of psychiatric condition. At this time is difficult to assess underlying cognitive function until he is more clear. PLAN 1. Pt does NOT have capacity to make medical decisions at this point. As delirium resolves, capacity can be reassessed. 2. Olanzapine 10mg po q6h prn agitation with ativan 2mg po q6h- monitor ECG, maintain Qtc<500ms, K>4, Mg>2. monitor worsening constipation with anticholinergic effects of olanzapine. Total time managing care of this patient today ____ minutes.
--- NOTE | 2022-07-25 14:31 | PC.NURSE ---
Patient remains confused continues to be watch for safety will CTM
--- NOTE | 2022-07-25 14:51 | PC.NURSE ---
Patient agitation ramping back up needs constant redirection poor safety awareness remains watch for safety, provider aware awaiting orders will CTM
[2022-07-25] MEDS: LORazepam 2 MG/ML VIAL IM (14:59)
--- NOTE | 2022-07-25 16:32 | PC.NURSE ---
Patient sleeping remains watch for safety
--- NOTE | 2022-07-25 16:43 | MHC.CM.ED ---
CM spoke with Chen JOSHUA. Chen tells CM that she will observe patient for 48 hours, not 24 at the request of Halima novelty dipper. Halima will make medication changes. Feels patient may need 48 hours for delirium to clear. Pt received additional dose of Haldol prn at 1459. No referrals made at this time per providers. CM will continue to follow for discharge needs.
--- NOTE | 2022-07-25 18:55 | MHC.EDTECH ---
pt was fed ate 50 % of meal ,drank 360 ml fluids ,pt void 400 ml urine ,pt was reposition,bed bath given .
--- NOTE | 2022-07-25 18:57 | PC.NURSE ---
Report received from Juan J CASANOVA. Pt here for fall. Bruise noted above right eye and long with bruising to other areas on the body. Pt confused and trying to get out of bed. Sitter at bedside with pt.
--- NOTE | 2022-07-25 19:05 | PC.NURSE ---
Pt cleansed of fecal incontinence, linens changed.
--- NOTE | 2022-07-25 19:45 | MHC.EDTECH ---
patient was incontinent of lg amount of stool ,care given ,bedding change ,warm blanket given .
[2022-07-25] MEDS: Apixaban 5 MG TABLET PO (20:20)
--- NOTE | 2022-07-25 21:38 | PC.NURSE ---
Pt agitated and restless. Attempting to get out of bed. PO Haldol ordered per provider at this time.
--- NOTE | 2022-07-25 21:50 | PC.NURSE ---
Pt refusing PO haldol at this time by spitting it out at this RN. Remains agitated and restless. 5mg IM Haldol administered to left deltoid at this time.
--- NOTE | 2022-07-25 22:44 | PC.NURSE ---
Pt placed in hospital bed for comfort at this time.
--- NOTE | 2022-07-25 23:34 | PC.NURSE ---
Pt remains intermittently restless. Sitter remains at bedside.
--- NOTE | 2022-07-25 23:57 | PC.NURSE ---
Report to Kamilla CASANOVA.
[2022-07-26] MEDS: LORazepam 1 MG TABLET PO ×3 (00:53→19:09)
[2022-07-26] MEDS: OLANZapine 5 MG TABLET PO ×2 (03:30→19:09)
[2022-07-26 04:21] VITALS: BP 115/73; PULSE 91; RESP 18; TEMP 36.5; O2SAT 95
--- NOTE | 2022-07-26 04:23 | MHC.EDTECH ---
pt is restless but not combative at time of vitals
--- NOTE | 2022-07-26 07:20 | MHC.EDTECH ---
Patient refused vitals.
--- NOTE | 2022-07-26 07:22 | PC.NURSE ---
Resumed care of this patient 1:1 present at bedside. He is currently resting quietly in bed, not restless at this time. Breakfast at bedside if patient wakes up.
--- NOTE | 2022-07-26 08:43 | MHC.CM.ED ---
Patient remains in ER. Received IM Haldol last night. Patient will not be able to be placed for at least 24 hours. Continue to monitor for d/c needs.
[2022-07-26 09:56] VITALS: BP 122/64; PULSE 78; RESP 20; O2SAT 97
[2022-07-26] MEDS: Omeprazole 40 MG CAPSULE.DR PO (10:01)
[2022-07-26] MEDS: Venlafaxine HCl ER 150 MG CAP.ER.24H PO (10:01)
[2022-07-26] MEDS: Docusate Sodium 100 MG CAPSULE PO ×2 (10:02→21:35)
[2022-07-26] MEDS: Apixaban 5 MG TABLET PO ×2 (10:02→21:35)
[2022-07-26] MEDS: Ferrous Sulfate 324 MG TABLET.DR PO (10:02)
[2022-07-26] MEDS: amLODIPine Besylate 10 MG TABLET PO (10:02)
--- NOTE | 2022-07-26 10:34 | PC.NURSE ---
Pt woke up with staff members, he was able to state that he was having some back pain this morning, took his medications with pudding and water, he went back to sleep when staff left. 1:1 remains present.
[2022-07-26] MEDS: Haloperidol Lactate 5 MG/ML VIAL IM (11:47)
--- NOTE | 2022-07-26 13:23 | PC.NURSE ---
Patient agitated with staff members trying to redirect him to not get out of bed, starting to yell at staff, and kicking his legs over the bed, son at bedside and patient is calmer at this moment.
[2022-07-26] MEDS: oxyCODONE HCl ER 10 MG TAB.ER.12H PO (14:04)
--- NOTE | 2022-07-26 19:27 | PC.NURSE ---
Patient is agitated, attempting to get out of the bed, multiple attempts made to redirect patient with minimal success. Patient continues to present with restless and agitated behavior. Patient medicated with PRN Lorazepam ad Zyprexa 1 hour ahead of scheduled dose. Provider is aware and approves. 1:[address] and bed alarm is on to prevent fall.
--- NOTE | 2022-07-26 21:13 | PC.NURSE ---
Assumed care of pt. at 1900. Pt. agitated and undirectable at this time, trying to elope from bed. Pt. remains a fall risk. 1:[address] and bed alarm on. Pt. medicated by other RN (see her note). Pt. currently (2113) sleeping.
[2022-07-26] MEDS: Butalb/Acetamin/Caff 50/325/40 TABLET 1 TAB PO (21:40)
[2022-07-26 22:06] VITALS: BP 114/71; PULSE 106; RESP 18; TEMP 36.2; O2SAT 95
[2022-07-27] VITALS (9 sets, daily range): BP systolic 110–141; BP diastolic 65–86; PULSE 76–91; RESP 16–22; TEMP 36.7; O2SAT 96–98
--- NOTE | 2022-07-27 | ECG_ITS ---
Test Reason : CHEST PAIN Blood Pressure : / mmHG Vent. Rate : 093 BPM Atrial Rate : 093 BPM P-R Int : 176 ms QRS Dur : 080 ms QT Int : 414 ms P-R-T Axes : 050 023 045 degrees QTc Int : 515 ms Sinus rhythm with marked sinus arrhythmia Possible Lateral infarct , age undetermined - could be normal variant Abnormal ECG When compared with ECG of 24-JUL-2022 14:03, Premature ventricular complexes are no longer Present QT has lengthened Referred By: Jakob Parada Electronically Signed By:JC SANTIAGO
[2022-07-27] MEDS: LORazepam 1 MG TABLET PO ×3 (02:57→20:06)
--- NOTE | 2022-07-27 03:48 | PC.NURSE ---
Pt. intermittently asleep and awake throughout the night. Pt. often confused and agitated when awake attempting to elope from bed. Pt. medicated per JUN. Pt. c/o chest pain. EKG done and MD notified. Pt. VSS. 1:1 remains at bedside for safety. Will continue to monitor.
[2022-07-27] MEDS: Omeprazole 40 MG CAPSULE.DR PO (07:07)
[2022-07-27] MEDS: LORazepam 2 MG/ML VIAL IM (07:23)
--- NOTE | 2022-07-27 07:23 | PC.NURSE ---
Pt swinging at staff, kicking at staff, spitting and swearing. made aware. IM ativan ordered and given with multiple staff members at bedside.
[2022-07-27] MEDS: Fluticasone/Vilanterol 100/25 BLST.W.DEV 1 PUFF INHALE (08:22)
--- NOTE | 2022-07-27 08:24 | ECG_ITS ---
Test Reason : AMS Blood Pressure : / mmHG Vent. Rate : 080 BPM Atrial Rate : 080 BPM P-R Int : 164 ms QRS Dur : 082 ms QT Int : 394 ms P-R-T Axes : 057 035 064 degrees QTc Int : 454 ms Sinus rhythm with marked sinus arrhythmia Possible Lateral infarct (cited on or before 27-JUL-2022) Abnormal ECG When compared with ECG of 27-JUL-2022 02:18, QT has shortened Referred By: Daniela Szymanski Electronically Signed By:JC SANTIAGO
[2022-07-27] MEDS: diphenhydrAMINE HCL 50 MG/ML VIAL IM (08:42)
--- NOTE | 2022-07-27 08:44 | PC.NURSE ---
, RN, Charge, and Director discussed patient situation, plan in place currently repeat EKG to assess QTC, IM Benadryl, if pt cooperative repeat CT of head. Pt is less combative at this time but still needing constant reassurance
--- NOTE | 2022-07-27 09:05 | MHC.CM.ED ---
Addendum entered by Ingrid Fernandez 07/27/22 14:45: Nisha JOSHUA made aware patient has received daily IM medication. Encouraged to reach out to psych to discuss treatment options. Original Note: Patient remains in ER. Received IM Haldol this morning. Will not be abgle to place for at least 24 hours. Continue to monitor for d/c needs.
[2022-07-27] MEDS: Haloperidol Lactate 5 MG/ML VIAL IM (09:07)
--- NOTE | 2022-07-27 09:19 | PC.NURSE ---
Pt continues to yell out for nurse asking when the hell am I going to get out of here pt given multiple PRN medications. MD koenig
--- NOTE | 2022-07-27 11:17 | PC.NURSE ---
INCONTINENT CARE AND COMPLETE BED CHANGE DONE. PT RESTLESS, UNCOOPERATIVE. FRIEND VISITING AT HIS BEDSIDE.
[2022-07-27] MEDS: OLANZapine 10 MG VIAL 5 MG IM (16:11)
--- NOTE | 2022-07-27 16:12 | PC.NURSE ---
Pt continues to be redirectable, Aggitated with staff members. 1x zyprexa given
--- NOTE | 2022-07-27 19:05 | PC.NURSE ---
Patient continues to be agitated with staff, still attempting to get out of bed, kicking at staff, refusing to eat, continue to be non-redirectable, friend at bedside with no luck in getting patient to calm down. Multiple attempts to redirect patient with no effect.
[2022-07-27] MEDS: Docusate Sodium 100 MG CAPSULE PO (20:02)
[2022-07-27] MEDS: Apixaban 5 MG TABLET PO (20:02)
[2022-07-27] MEDS: Butalb/Acetamin/Caff 50/325/40 TABLET 1 TAB PO (20:02)
[2022-07-27] MEDS: OLANZapine 5 MG TABLET PO (20:06)
--- NOTE | 2022-07-27 20:15 | PC.NURSE ---
pt assessed, uncoopertative with care, sitter by bedside. Pt took nighttime medications without any difficulty
--- NOTE | 2022-07-27 21:02 | PC.NURSE ---
pt observed, pt sleeping, sitter present
[2022-07-28 03:40] VITALS: BP 133/77; PULSE 96; RESP 16; O2SAT 98
[2022-07-28 09:55] VITALS: BP 122/86; PULSE 80; RESP 16; TEMP 37.5; O2SAT 95
[2022-07-28] MEDS: Apixaban 5 MG TABLET PO ×2 (09:57→20:03)
[2022-07-28] MEDS: amLODIPine Besylate 10 MG TABLET PO (09:57)
[2022-07-28] MEDS: LORazepam 1 MG TABLET PO ×2 (09:57→20:03)
[2022-07-28] MEDS: Docusate Sodium 100 MG CAPSULE PO ×2 (09:57→20:03)
[2022-07-28] MEDS: Ferrous Sulfate 324 MG TABLET.DR PO (09:57)
[2022-07-28] MEDS: Venlafaxine HCl ER 150 MG CAP.ER.24H PO (09:58)
[2022-07-28] MEDS: Fluticasone/Vilanterol 100/25 BLST.W.DEV 1 PUFF INHALE (10:57)
[2022-07-28 11:19] VITALS: PULSE 95; RESP 20; O2SAT 95
[2022-07-28] MEDS: Acetaminophen 325 MG TABLET 650 MG PO (13:02)
--- NOTE | 2022-07-28 13:16 | PC.NURSE ---
patient alert, disoriented. sitting up in bed eating lunch. patient observer at the bedside. call mcknight within reach
--- NOTE | 2022-07-28 17:15 | PC.NURSE ---
report given to sriram arteagapit furnace operator contacted
[2022-07-28 17:56] VITALS: BP 118/64; PULSE 89; RESP 18; TEMP 37.3; O2SAT 96
[2022-07-28] MEDS: oxyCODONE HCl Immed Release 5 MG TABLET PO (18:25)
--- NOTE | 2022-07-28 18:27 | PC.NURSE ---
Pt transferred from ED. A+Ox3, [place]. C/O L toe pain, covering provider Cha notified, PRN Oxycodone given. Pt not in distress. Call mcknight within reach.
[2022-07-28] MEDS: OLANZapine 5 MG TABLET PO (20:03)
[2022-07-28] MEDS: Divalproex Sodium 250 MG TABLET.DR PO (20:03)
[2022-07-29] MEDS: oxyCODONE HCl Immed Release 5 MG TABLET PO ×3 (02:29→20:56)
[2022-07-29 05:23] VITALS: BP 106/78; PULSE 95; RESP 18; TEMP 36.4; O2SAT 93
[2022-07-29] MEDS: Omeprazole 40 MG CAPSULE.DR PO (05:53)
[2022-07-29 07:31] VITALS: BP 90/63; PULSE 86; RESP 16; TEMP 36.7; O2SAT 95
[2022-07-29] MEDS: Docusate Sodium 100 MG CAPSULE PO (07:37)
[2022-07-29] MEDS: Apixaban 5 MG TABLET PO ×2 (07:37→20:22)
[2022-07-29] MEDS: Butalb/Acetamin/Caff 50/325/40 TABLET 1 TAB PO (07:37)
[2022-07-29] MEDS: Divalproex Sodium 250 MG TABLET.DR PO ×2 (07:38→20:21)
[2022-07-29] MEDS: LORazepam 1 MG TABLET PO ×2 (07:38→20:22)
[2022-07-29] MEDS: Venlafaxine HCl ER 150 MG CAP.ER.24H PO (07:38)
[2022-07-29] MEDS: Ferrous Sulfate 324 MG TABLET.DR PO (07:38)
--- NOTE | 2022-07-29 07:45 | PC.NURSE ---
patient c/o headahce. prn medication given. was able to swallow medication with water. no difficulty noted. call mcknight within reach
--- NOTE | 2022-07-29 09:24 | PC.NURSE ---
incontinence care provided-bed linen changed. call mcknight within reach
--- NOTE | 2022-07-29 12:50 | MHC.CM.ED ---
Patient remains in ER overflow. Patient has been alert and cooperative. [facility] on [address] is 1st choice. Clinical updates sent to [facility] via [facility]. Continue to monitor for d/c needs.
[2022-07-29 14:00] VITALS: BP 94/70; PULSE 79; RESP 18; O2SAT 99
[2022-07-29] MEDS: Acetaminophen 325 MG TABLET 650 MG PO ×2 (14:15→20:22)
[2022-07-29] MEDS: OLANZapine 5 MG TABLET PO (20:22)
[2022-07-30] MEDS: oxyCODONE HCl Immed Release 5 MG TABLET PO ×3 (05:20→23:32)
[2022-07-30] MEDS: Omeprazole 40 MG CAPSULE.DR PO (05:20)
[2022-07-30] MEDS: Acetaminophen 325 MG TABLET 650 MG PO ×2 (05:20→14:07)
--- NOTE | 2022-07-30 06:03 | PC.NURSE ---
prn oxy and tylenol given for pain . bed linens changed. usually voids in urinal but had one episode of incont. no overnight issues.
--- NOTE | 2022-07-30 07:30 | PC.NURSE ---
Resumed care of this patient this morning, he is currently sleeping in bed comfortably. Bed alarm in place. Safety rounds completed.
[2022-07-30 08:29] VITALS: BP 117/85; PULSE 84; RESP 20; TEMP 36.8; O2SAT 96
[2022-07-30] MEDS: Ferrous Sulfate 324 MG TABLET.DR PO (08:30)
[2022-07-30] MEDS: amLODIPine Besylate 10 MG TABLET PO (08:30)
[2022-07-30] MEDS: Apixaban 5 MG TABLET PO ×2 (08:30→20:48)
[2022-07-30] MEDS: Docusate Sodium 100 MG CAPSULE PO ×2 (08:30→20:48)
[2022-07-30] MEDS: Divalproex Sodium 250 MG TABLET.DR PO ×2 (08:30→20:48)
[2022-07-30] MEDS: LORazepam 1 MG TABLET PO (08:31)
[2022-07-30] MEDS: Venlafaxine HCl ER 150 MG CAP.ER.24H PO (08:31)
--- NOTE | 2022-07-30 09:08 | PC.NURSE ---
Patient stood at the edge of the bed with staff members, unable to pivot to commode at this time, stating it was hurting his back and Right toe to much, able to sit back down and with aid get feet back into bed. Repositioned into comfy position, TV turned on, pt advised to utilize call mcknight next to him.
--- NOTE | 2022-07-30 10:35 | MHC.CM.PN ---
Addendum entered by Leticia Abraham 07/30/22 10:59: PT RECEIVED PRN FOR AGITATION LAST NIGHT, SNF IS NOT GONG TO BE ABLE TO OFFER TODAY CM SPOKE WITH LIAISON AT SNF WHO INDICATED THEY RECENTLY HAD PT WITH THEM AND HE WAS CATHY, EXCEPT WHEN HE WAS WAITING FOR HIS PAIN MEDICATION SHE INDICATED THERE IS ALSO CONCERN THAT PT MAY TURN TO LTC WHICH THEY DO NOT HAVE SHE WILL CONTINUE TO FOLLOW FOR IMPROVED BEHAVIORS Original Note: PT AWAITING SNF PLACEMENT [facility] IS 1ST CHOICE AND FOLLOWING UPDATES SENT AWAITING RESPONSE TO DETERMINE IF THEY ARE ABLE TO OFFER A BED
--- NOTE | 2022-07-30 13:02 | PC.NURSE ---
Patient woke up, attempted to give lunch, patient only wanted ensure and desserts, sitting up in bed and feeding himself well. Denies pain at this time, and is alert to self
--- NOTE | 2022-07-30 13:52 | PC.NURSE ---
Pt verbalized to this tag writer he really wants to get up and start walking around the room, sitting here is not helping me, and I don't want to just rot away PT eval is in place, patient has been very confused this hospital stay and unable to safely get out of bed, and has become deconditioned, safety concerns voiced to patient, and he agreed to wait until we can get a walker and PT's input
[2022-07-30 14:06] VITALS: BP 121/70; PULSE 72; RESP 20; TEMP 36.2; O2SAT 98
[2022-07-30 20:34] VITALS: BP 128/74; PULSE 87; RESP 18; TEMP 36.6; O2SAT 94
--- NOTE | 2022-07-30 21:48 | MHC.CM.ED ---
CM spoke with provider, Rachel GREENBERG regarding need for zyprexa prn, as patient cannot have prn psych meds and go to [facility]. PT has recommended [facility]. CM spoke with patient, seems much clearer mentally. Here for delirum. Initial psych consult: No capacity d/t delirium. Request re-consult for capacity. Pt did have zyprexa on 07/29 at 2021. Will need to be 24 hours without prn meds. Will place additional referrals tomorrow. CM following for discharge planning.
[2022-07-30 22:00] VITALS: BP 111/71; PULSE 88; RESP 20; TEMP 36.7; O2SAT 96
[2022-07-30] MEDS: Butalb/Acetamin/Caff 50/325/40 TABLET 1 TAB PO (23:33)
[2022-07-31 07:15] VITALS: BP 138/75; PULSE 90; RESP 20; TEMP 36.3; O2SAT 96
[2022-07-31] MEDS: Apixaban 5 MG TABLET PO ×2 (08:14→20:26)
[2022-07-31] MEDS: Acetaminophen 325 MG TABLET 650 MG PO ×2 (08:14→16:31)
[2022-07-31] MEDS: oxyCODONE HCl Immed Release 5 MG TABLET PO ×2 (08:14→16:31)
[2022-07-31] MEDS: amLODIPine Besylate 10 MG TABLET PO (08:14)
[2022-07-31] MEDS: Venlafaxine HCl ER 150 MG CAP.ER.24H PO (08:14)
[2022-07-31] MEDS: Docusate Sodium 100 MG CAPSULE PO ×2 (08:14→20:26)
[2022-07-31] MEDS: Ferrous Sulfate 324 MG TABLET.DR PO (08:14)
[2022-07-31] MEDS: Divalproex Sodium 250 MG TABLET.DR PO ×2 (08:15→20:26)
--- NOTE | 2022-07-31 11:33 | MHC.CM.ED ---
Addendum entered by Ingrid Fernandez 07/31/22 15:22: Clinical updates sent to [facility] [place]. Original Note: Patient remains in ER overflow. Psych consult is pending. Halima auxiliary engineer will see patient this afternoon. Continue to monitor for d/c needs.
--- NOTE | 2022-07-31 14:07 | MHC.EDTECH ---
patient was given a sponge bath with a complete bed sheet change. patient also shave his face.
--- NOTE | 2022-07-31 15:15 | PC.NURSE ---
Assumed care for this pt at this time; pt resting comfortably in bed watching tv, call mcknight within reach
--- NOTE | 2022-07-31 17:14 | MHC.CM.ED ---
CM spoke with provider regarding order for daily PT. Waiting for psych eval note.
--- NOTE | 2022-07-31 18:40 | PC.NURSE ---
Pt up and ambulating at this time, pt 1 assist with wheeled walker. Pt back in bed eating dinner. Safety and fall precautions maintained. Call mcknight within reach. Camera in room.
[2022-07-31 19:31] VITALS: BP 111/73; PULSE 78; RESP 18; TEMP 36.4; O2SAT 97
--- NOTE | 2022-07-31 21:43 | PM.PSYCN ---
History of Present Illness Date of Service: 07/31/2022 Chief Complaint: Sob/Pain Reason for Consult: Requesting physician: Chen Tiwari HPI Narrative: Interim Hx: pt seen in follow up from delirium. Pt presents with improved orientation. Pt reports he is not sure how long he has been here but has been told that he was here because of confusion. Pt able to tell the month, year, place. He reports he feeling somewhat anxious. He states he has been told that he needs to go to short term rehab and feels somewhat weak when trying to ambulate on his own. He denies any acute psychiatric symptoms including SI/HI. No signs of psychosis or delusional content noted or reported. Pt has not needed any IM medications since Thursday 07/27. Pt with much more organized behavior, speech and improved orientation. [facility] Medical History Allergic bronchitis Anxiety and depression Asthma exacerbation Atrial fibrillation Chest tightness Constipation Degenerative disc disease Diverticular disease Dyspnea on exertion Dysuria Fatigue Fatigue Generalized anxiety disorder GERD (gastroesophageal reflux disease) Gout Headache Hospital discharge follow-up Hypertension Iron deficiency anemia Knee fracture, left Leukocytosis Low vitamin D level Moderate recurrent major depression Obesity (BMI 30-39.9) Obstructive sleep apnea Peptic ulcer disease Premature atrial complexes Prostate cancer Rash Serum potassium elevated Shortness of breath SOB (shortness of breath) on exertion Tinea cruris Vitamin B12 deficiency Vitamin D deficiency Wedge compression fracture of L1 vertebra Surgical History H/O hernia repair H/O rectal polypectomy History of bowel resection History of cholecystectomy History of colonoscopy History of hemiarthroplasty of left hip History of knee replacement procedure of left knee History of pyloroplasty Diagnostics Vital Signs (24Hr): Vital Signs - 24 hr 07/30/22 22:00 07/31/22 07:15 07/31/22 19:31 Temperature 98.0 F 97.3 F 97.6 F Pulse Rate 88 90 78 Respiratory Rate 20 20 18 Blood Pressure 111/71 138/75 111/73 Pulse Oximetry 96 96 97 Oxygen Delivery Method Room Air Room Air Room Air BMI result Body Mass Index 32.1 Labs 07/25/22 14:11 Imaging Radiology Impressions: ITS Impressions Head CT 07/25/22 02:20 IMPRESSION: No acute intracranial pathology. Chronic volume loss with small vessel ischemic change. Head CT 07/27/22 10:45 IMPRESSION: 1. No acute intracranial pathology. 2. Mild interval decrease in right frontal soft tissue hematoma. Correlate with physical exam. Mental Status Exam Mental Status Exam Narrative: Appearance: wearing hospital gown, hematoma on right forehead, scratches on left arm, in bed, in NAD Behavior: calmer Speech: clear, regular rate/rhythm/volume, spontaneous Psychomotor: no agitation or retardation noted TP: mostly linear TC: feeling better, somewhat anxious Mood: better Affect: congruent SI: none HI: none VH/AH: no overt s/s Delusions: no overt signs Insight/judgment: improving x 2. Memory/cog: alert, oriented to month, year, place, some confusion as to situation but pt clearing from delirium. Medications Medications Current Medications Acetaminophen (Acetaminophen 325 Mg Tablet) 650 mg PO Q6H PRN PRN Reason: pain 1-5 Last Admin: 07/31/22 16:31 Dose: 650 mg Acetaminophen/Butalbital/Caffeine (Butalb/Acetamin/Caff 50/325/40 Tablet) 1 tab PO BEDTIME PRN PRN Reason: Migraine Headache Last Admin: 07/30/22 23:33 Dose: 1 tab Albuterol Sulfate (Albuterol Sulfate 90 Mcg 8 Gm Inhaler) 2 puff INHALE Q6H PRN PRN Reason: shortness of breath or wheezing Amlodipine Besylate (Amlodipine Besylate 10 Mg Tablet) 10 mg PO DAILY ON LICENSE OF [facility]; Protocol Last Admin: 07/31/22 08:14 Dose: 10 mg Apixaban (Apixaban 5 Mg Tablet) 5 mg PO BID ON LICENSE OF [facility] Last Admin: 07/31/22 20:26 Dose: 5 mg Cyanocobalamin (Cyanocobalamin (Vitamin B-12) 1,000 Mcg/Ml Vial) 1,000 mcg SUBCUT Q28D ON LICENSE OF [facility] Divalproex Sodium (Divalproex Sodium 250 Mg Tablet.) 250 mg PO BID ON LICENSE OF [facility] Last Admin: 07/31/22 20:26 Dose: 250 mg Docusate Sodium (Docusate Sodium 100 Mg Capsule) 100 mg PO BID ON LICENSE OF [facility] Last Admin: 07/31/22 20:26 Dose: 100 mg Ferrous Sulfate (Ferrous Sulfate 324 Mg Tablet.) 324 mg PO DAILY ON LICENSE OF [facility] Last Admin: 07/31/22 08:14 Dose: 324 mg Fluticasone Propionate (Fluticasone Propionate Nasal 16 Gm [place]) 1 spray NOSTRIL-B BID PRN PRN Reason: Allergy Symptoms Fluticasone/Vilanterol (Fluticasone/Vilanterol 100/25 Blst.W.Dev) 1 puff INHALE RDAILY ON LICENSE OF [facility] Last Admin: 07/31/22 12:09 Dose: Not Given Latanoprost (Latanoprost 0.005 % Ophth Saira 2.5 Ml Drops) 1 drop EYE-BOTH BEDTIME ON LICENSE OF [facility] Last Admin: 07/31/22 20:26 Dose: Not Given Loratadine (Loratadine 10 Mg Tablet) 10 mg PO DAILY PRN PRN Reason: allergy symptoms Non-Formulary Medication (Vibegron [Gemtesa]) 1 tab PO DAILY ON LICENSE OF [facility] Last Admin: 07/25/22 08:53 Dose: Not Given Omeprazole (Omeprazole 40 Mg Capsule.Dr) 40 mg PO DAILY@0630 ON LICENSE OF [facility] Last Admin: 07/31/22 05:31 Dose: Not Given Oxycodone HCl (Oxycodone Hcl Immed Release 5 Mg Tablet) 5 mg PO Q8H PRN PRN Reason: pain 5-10 Last Admin: 07/31/22 16:31 Dose: 5 mg Pharmacy Consult (Consult Rx Perform Med Rec) 1 each MISCELLANE ONCE PRN PRN Reason: Consult order Venlafaxine HCl (Venlafaxine Hcl Er 150 Mg Cap.Er.24h) 150 mg PO DAILY ON LICENSE OF [facility] Last Admin: 07/31/22 08:14 Dose: 150 mg Allergies Allergies Allergy/AdvReac Type Severity Reaction Status Date / Time carisoprodol [From Soma] Allergy Mild MENTAL Verified 03/08/22 15:43 STATUS CHANGE, BECOMES AGGRESIVE codeine [Codeine] Allergy Mild STOMACH Verified 03/08/22 15:43 UPSET, RASH gabapentin AdvReac Intermediate lousy Verified 03/08/22 15:43 feeling Assessment & Plan Assessment & Plan (1) Delirium: Status: Acute Code(s): R41.0 - Disorientation, unspecified Plan Pt appears in much improved condition in terms of s/s of delirum. Pt is now oriented to place, month, year, although does not remember how long he has been here in the hospital is able to tell this commercial insurance underwriter that he has been here due to confusion and is pending referrals for rehab as he is weak and unsteady on his feet. Pt able to follow commands. No combative nor aggressive behaviors. At this point- delirium appears to have completely resolved. Pt appears to have capacity to make medical decisions at this time. I do recommend OP that pt may benefit from MOCA from his PCP. Total time managing care of this patient today ____ minutes.
--- NOTE | 2022-07-31 22:15 | PC.NURSE ---
Addendum entered by Sydney Marinelli RN 07/31/22 22:57: Pt remains on RA, VSS, intermittent dry cough, camera in room, safety maintained. Original Note: Upon chart assessment, This RN noticed that Pt tested positive for covid 07/25/22. Pt is not on any precautions, Nursing area supervisor notified and Pt will be moving him to bed 1. MD notified as well.
[2022-08-01] MEDS: oxyCODONE HCl Immed Release 5 MG TABLET PO ×2 (00:49→08:26)
[2022-08-01 02:58] VITALS: BP 123/69; PULSE 85; RESP 20; TEMP 36.7; O2SAT 95
[2022-08-01] MEDS: Omeprazole 40 MG CAPSULE.DR PO (05:42)
[2022-08-01] MEDS: Fluticasone/Vilanterol 100/25 BLST.W.DEV 1 PUFF INHALE (08:07)
[2022-08-01 08:14] VITALS: PULSE 102; RESP 18; O2SAT 92
[2022-08-01 08:15] VITALS: PULSE 102
[2022-08-01] MEDS: Venlafaxine HCl ER 150 MG CAP.ER.24H PO (08:26)
[2022-08-01] MEDS: amLODIPine Besylate 10 MG TABLET PO (08:26)
[2022-08-01] MEDS: Divalproex Sodium 250 MG TABLET.DR PO (08:26)
[2022-08-01] MEDS: Ferrous Sulfate 324 MG TABLET.DR PO (08:26)
[2022-08-01] MEDS: Docusate Sodium 100 MG CAPSULE PO (08:26)
[2022-08-01] MEDS: Apixaban 5 MG TABLET PO (08:26)
[2022-08-01] MEDS: Acetaminophen 325 MG TABLET 650 MG PO (10:35)
--- NOTE | 2022-08-01 11:08 | PC.NURSE ---
Pt ate 100% of breakfast, refused to be washed up at this time. Took all medications. Pt complaining of gout flare up/ pain. Physician notified, script for steroid will be sent to the pharmacy of d/c.
--- NOTE | 2022-08-01 11:14 | MHC.CM.PN ---
DP: PT IS MEDICALLY CLEARED FOR DC HOME WITH RESUMPTION OF [facility] SERVICES. [facility] NOTIFIED. RN AND PROVIDER AWARE. FRIEND/HCP YUMIKO IS AWARE OF PLAN AND WILL BE AVAILABLE FOR WHEN PT ARRIVES HOME. BLS TRANSPORT BOOKED FOR 2 PM.
[2022-08-01 11:55] VITALS: BP 116/77; PULSE 83; RESP 18; TEMP 36.7; O2SAT 95
--- NOTE | 2022-08-01 13:00 | PC.NURSE ---
pt ate lunch, awaiting discharge transport home. requesting to put clothes on.
== END 2022-08-01 14:38 | disposition home or self-care (01) ==
PROVIDERS: Social Worker; Emergency Provider Internal Medicine; PCP Internal Medicine
DX: R41.0 Disorientation, unspecified (principal); R06.02 Shortness of breath; R10.30 Lower abdominal pain, unspecified; R53.1 Weakness; R51.9 Headache, unspecified; R07.89 Other chest pain; I48.91 Unspecified atrial fibrillation; R26.81 Unsteadiness on feet; Z20.822 Contact with and (suspected) exposure to COVID-19; Z20.828 Contact with and (suspected) exposure to other viral communicable diseases; Z87.891 Personal history of nicotine dependence; Z79.899 Other long term (current) drug therapy; Z79.01 Long term (current) use of anticoagulants
CPT/HCPCS: 36415; 70450; 82140; 85025; 87635; 93005; 94640; 96372; 96374; 96375; 96376; 97162; 99285; J1200; J2060; J2270; J2405

== ENCOUNTER 2022-08-21 11:40 | Emergency (ER) | payer MEDICARE, SELFPAY ==
--- NOTE | ~2022-08-21 | CT_ITS ---
EXAMINATION: CT abdomen pelvis w IV con CLINICAL INFORMATION: Reason for Exam pain, fall COMPARISON: Prior CT scan from June 2022 TECHNIQUE: Multidetector volumetric imaging was performed from the superior aspect of the liver through the pubic symphysis 85 mL of Omnipaque 350 injected Sagittal and coronal reformatted images were obtained on the technologist's workstation. This CT examination was performed using dose optimization techniques as appropriate, variously including the following: *Automated exposure control *Adjustment of mA and/or kV according to patient size (this includes techniques or standardized protocols for targeted exams where dose is matched to indication/reason for exam; i.e. extremities or head) *Use of iterative reconstruction technique DLP: 3178 mGy-cm FINDINGS: LOWER THORAX: Included lung bases are clear. HEPATOBILIARY: No focal hepatic lesions. No biliary ductal dilatation. GALLBLADDER: Gallbladder has been removed, SPLEEN: Normal in size. PANCREAS: Small atrophic fatty pancreas. No pancreatic mass. STOMACH AND GASTROINTESTINAL TRACT: Stomach is grossly unremarkable. There is heavy diverticulosis of the transverse descending and sigmoid colon. No CT evidence of appendicitis. ADRENALS: No adrenal nodules. KIDNEYS/URETERS: No hydronephrosis, stones or solid mass lesions. URINARY BLADDER: Partially decompressed. PELVIC VISCERA: Urinary bladder unremarkable, there are process at the BX. PERITONEUM: There is no intraperitoneal air. LYMPH NODES: No lymphadenopathy. VASCULAR:There is heavy aortic vascular calcification. BONES, ABDOMINAL WALL AND SOFT TISSUES: Posteriorly dislocated left hip prosthesis, there is swelling, of the musculature around the left hip, there is a swelling of the left iliopsoas muscle which extend along the left side of the pelvic johnson and mid abdomen along the left side of the lumbar spine likely intramuscular bleed hematoma. Mild retroperitoneal fat stranding in the left pelvis. There is anterior abdominal wall hernia mesh in place. An old fracture of the left transverse process of L2 unchanged. Multiple compression fractures of dorsal and lumbar vertebrae, postsurgical changes from vertebroplasty L1. CT/CT abdomen pelvis w IV con IMPRESSION: * Posteriorly and cephalad dislocated left hip prosthesis. * Swelling of the musculature around the left hip, swelling of the left iliopsoas muscle which extend along the left side of the pelvic johnson and proximally to the level of mid lumbar spine likely intramuscular bleed hematoma. * Other noncritical findings as above. (Referring physician staff is being called, by physician staff assistance, to be alerted of the above critical findings and recommendations.) ARPIT COCHRAN 08/21/2022 4:47 PM
--- NOTE | ~2022-08-21 | XR_ITS ---
EXAMINATION: XR HIP, LEFT CLINICAL INFORMATION: Pain, fall. COMPARISON: Radiograph of the left hip 02/18/2019. TECHNIQUE: Two views of the left hip. 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 No evidence of periprosthetic fracture. 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 Prostatic radiation seeds noted. Residual contrast in the urinary bladder multiple surgical tacks in the lower abdominal wall. XR/XR hip LT w PEL1V IMPRESSION: Superior dislocation of the left hip arthroplasty.
--- NOTE | ~2022-08-21 | CT_ITS ---
EXAMINATION: CT CERVICAL SPINE WITHOUT CONTRAST; UNENHANCED CT OF THE HEAD. CLINICAL INFORMATION: Pain. Fall. COMPARISON: CT head 07/27/2022, 07/25/2022, CT cervical spine 02/13/2022 TECHNIQUE: Routine unenhanced CT of the head with multiple coronal and sagittal reformatted images; routine unenhanced CT of the cervical spine with multiple coronal and sagittal reformatted images. This CT examination was performed using dose optimization techniques as appropriate, variously including the following: *Automated exposure control *Adjustment of mA and/or kV according to patient size (this includes techniques or standardized protocols for targeted exams where dose is matched to indication/reason for exam; i.e. extremities or head) *Use of iterative reconstruction technique DLP: 3178 mGy-cm FINDINGS: Moderate-marked diffuse commensurate prominence of the ventricles and sulci is noted. No intracranial hemorrhage, tumors or acute infarcts are visualized. Moderate periventricular and subcortical white matter patchy hypodensities are identified. Mild extracranial soft tissue inflammatory changes are present in the left parietal region. Bilateral ocular lens extractions are noted. No significant opacification of the visualized paranasal sinuses, mastoid air cells and middle ear cavities. CT cervical spine: No fractures or acute appearing subluxations are identified. Mild focal inward deformity of the superior endplate of T1 is present, unchanged compared with 02/13/2022 with up to 25% maximal loss of craniocaudal height. Moderate-marked intervertebral disc space narrowing is present at C5-C6 and C6-C7. No prevertebral fluid collections or soft tissue inflammatory changes identified. Mild multilevel facet hypertrophic changes are visualized. CT/CT cervical spine wo IV con IMPRESSION: CT HEAD: 1. No acute intracranial abnormalities. 2. Moderate white matter chronic small vessel ischemic disease. 3. Mild extracranial soft tissue inflammatory changes of the left parietal region. CT CERVICAL SPINE: 1. No acute abnormalities. 2. Multilevel chronic spondylosis/ 3. Chronic anterior wedge deformity of the T1 vertebral body unchanged compared with 02/13/2022 with approximately 25% maximal loss of craniocaudal height.
--- NOTE | ~2022-08-21 | CT_ITS ---
EXAMINATION: CT chest w IV con. CLINICAL INFORMATION: Reason for Exam fall, pain COMPARISON: No prior CT available for comparison. TECHNIQUE: Multidetector volumetric CT imaging of the chest was done. Axial MIP volume rendering provided. Sagittal and coronal reformatted images were obtained. This CT examination was performed using dose optimization techniques as appropriate, variously including the following: *Automated exposure control *Adjustment of mA and/or kV according to patient size (this includes techniques or standardized protocols for targeted exams where dose is matched to indication/reason for exam; i.e. extremities or head) *Use of iterative reconstruction technique CONTRAST: Approximately 85 mL of Omnipaque 350 injected DLP: 467 mGy-cm FINDINGS: INSTRUCTOR NURSE: LINES/TUBES: Marine Welder reviewed, no lines. LUNGS: Lung parenchyma: Except for a minimal Compression atelectasis at left lung base, lungs are clear. There is linear density in the left upper lobe likely a scar image 108 series 29. Lung nodules/masses: There are no significant lung nodules. AIRWAYS: Trachea and bronchi are normal. PLEURA: No pleural effusion or pneumothorax. MEDIASTINUM AND NANNETTE: No mediastinal, hilar or axillary lymphadenopathy. No mediastinal mass. VESSELS: HEART AND PERICARDIUM: Borderline aneurysmal dilatation of ascending aorta 4.1 cm unchanged. Heart is normal in size. No pericardial effusion. There are heavy coronary calcifications. Pulmonary arteries are normal in size. LOWER NECK, AXILLA: The visualized thyroid gland is unremarkable. No axillary mass or adenopathy. VISUALIZED ABDOMEN: Unremarkable CHEST WALL AND BONES: No chest wall mass. Nondisplaced fracture of the lateral aspect of the left 6 rib. There are probably old fractures of the right anterior fifth, 6, 7 8 ribs. Old partial compression fracture of T11. Mildly displaced sternal fracture just cortical to the manubriosternal junction. CT/CT chest w IV con IMPRESSION: * Nondisplaced fracture of the lateral aspect of the left sixth rib. * Mildly displaced sternal fracture just caudal to the manubriosternal junction. * There are probably old fractures of the right anterior fifth, 6, 7, 8 ribs. * No pneumothorax. * Minimal compressive atelectasis at left lung base. * Heavy coronary calcifications. * Borderline aneurysmal dilatation of ascending aorta 4.1 cm.
--- NOTE | 2022-08-21 12:00 | ED.GENADULT ---
HPI - General Adult General Chief complaint: Fall <JOSIANE Gautam - Last Filed: 08/21/22 16:36> Stated complaint: FALL W/L HIP PAIN,FOUND ON FLOOR, <JOSIANE Gautam - Last Filed: 08/21/22 16:36> Time Seen by Provider: 08/21/22 12:00 <JOSIANE Gautam - Last Filed: 08/21/22 16:36> Source: patient and EMS <JOSIANE Gautam Last Filed: 08/21/22 16:36> Mode of arrival: EMS <JOSIANE Gautam Last Filed: 08/21/22 16:36> Limitations: other (patient is a poor historian) <JOSIANE Gautam Last Filed: 08/21/22 16:36> History of Present Illness HPI narrative: Patient is a 77 year old assigned male at with a history of atrial fib, GERD, asthma, and prostate cancer presenting to the emergency department today with left sided hip pain after a fall. Patient states that he fell but he doesn't know when and he doesn't know how long he was on the ground. EMS states that the patient's apartment was in total disarray with medications thrown about the apartment. Patient denies any dizziness, lightheadedness, abdominal pain, nausea, vomiting, fever, chills, blurry vision, double vision, loss of vision, chest pain, difficulty breathing, shortness of breath, back pain, night sweats, pain with urination, increased urinary frequency, increased urinary urgency, blood in his urine or stool, syncope or a near syncopal episode, bowel incontinence, bladder incontinence, bowel retention, bladder retention, or any other complaints at this time. <JOSIANE Gautam - Last Filed: 08/21/22 16:36> Onset (ago): unknown <JOSIANE Gautam Last Filed: 08/21/22 16:36> Location: pelvis and left <JOSIANE Gautam Last Filed: 08/21/22 16:36> Radiation: non-radiation <JOSIANE Gautam Last Filed: 08/21/22 16:36> Severity: mild <JOSIANE Gautam Last Filed: 08/21/22 16:36> Severity scale (1-10): 3 <JOSIANE Gautam - Last Filed: 08/21/22 16:36> Quality: aching and dull <JOSIANE Gautam - Last Filed: 08/21/22 16:36> Pain Consistency: constant <JOSIANE Gautam - Last Filed: 08/21/22 16:36> Relieving factors: none <JOSIANE Gautam - Last Filed: 08/21/22 16:36> Exacerbating factors: movement <JOSIANE Gautam - Last Filed: 08/21/22 16:36> Associated symptoms: denies other symptoms <JOSIANE Gautam - Last Filed: 08/21/22 16:36> Treatments prior to arrival: none <JOSIANE Gautam - Last Filed: 08/21/22 16:36> Related Data Home medications: Home Medications Medication Instructions Recorded Confirmed [id number] 1 tab PO BEDTIME PRN Migraine 10/20/20 08/21/22 50 mg-325 mg-40 mg tablet Headache lorazepam 1 mg tablet 1 tab PO BID 10/20/20 08/21/22 venlafaxine 150 mg 150 mg PO DAILY 04/17/21 08/21/22 capsule,extended release 24 hr fluticasone propionate 45 2 puff inhalation BID 12/14/21 08/21/22 mcg-salmeterol 21 mcg/actuation HFA inhaler (Advair HFA) cyanocobalamin (vitamin B-12) 1,000 mcg subcut QMONTH 06/09/22 08/21/22 1,000 mcg/mL injection solution fluticasone propionate 50 1 spray intranasal BID PRN Allergy 06/09/22 08/21/22 mcg/actuation nasal Symptoms spray,suspension latanoprost 0.005 % eye drops 1 drp ophthalmic (eye) BEDTIME 06/09/22 08/21/22 lorazepam 1 mg tablet 1 mg PO DAILY PRN Anxiety 06/09/22 08/21/22 omeprazole 40 mg capsule,delayed 40 mg PO DAILY@0630 06/09/22 08/21/22 release venlafaxine 37.5 mg 1 cap PO DAILY 06/09/22 08/21/22 capsule,extended release 24 hr vibegron 75 mg tablet (Gemtesa) 1 tab PO DAILY 06/09/22 08/21/22 divalproex 500 mg tablet,delayed 500 mg PO QPM 08/21/22 08/21/22 release Previous Rx's Medication Instructions Recorded syringe with needle, safety 3 mL #100 ea 06/02/21 25 gauge x 5/8 (BD Safety-Jackie Detachable Needle) fexofenadine 180 mg tablet 180 mg PO DAILY PRN allergy 08/10/21 symptoms #90 caps albuterol sulfate 90 mcg/actuation 2 puff inhalation Q6H PRN 12/22/21 aerosol inhaler (ProAir HFA) shortness of breath or wheezing #8.5 grams amlodipine 10 mg tablet 10 mg PO DAILY #90 caps 02/21/22 apixaban 5 mg tablet 5 mg PO BID 90 days #180 tabs 03/07/22 docusate sodium 100 mg capsule 100 mg PO BID #60 caps 06/17/22 (Colace) ferrous sulfate 325 mg (65 mg 325 mg PO DAILY #90 tabs 08/18/22 iron) tablet (Feosol) <JOSIANE Gautam - Last Filed: 08/21/22 16:36> Allergies/adverse reactions: Allergies Allergy/AdvReac Type Severity Reaction Status Date / Time carisoprodol [From Soma] Allergy Mild MENTAL Verified 03/08/22 15:43 STATUS CHANGE, BECOMES AGGRESIVE codeine [Codeine] Allergy Mild STOMACH Verified 03/08/22 15:43 UPSET, RASH gabapentin AdvReac Intermediate lousy Verified 03/08/22 15:43 feeling <JOSIANE Gautam - Last Filed: 08/21/22 16:36> Review of Systems Constitutional: Constitutional: Reports no additional constitutional complaints, Denies chills, Denies fever(s) and Denies night sweats <JOSIANE Gautam Last Filed: 08/21/22 16:36> Eyes: Eyes: Reports no additional eye complaints, Denies blurry vision, Denies change in vision, Denies diplopia, Denies eye discharge, Denies loss of vision and Denies eye pain <JOSIANE Gautam Last Filed: 08/21/22 16:36> ENT: Denies dizziness <JOSIANE Gautam Last Filed: 08/21/22 16:36> Cardiovascular: Cardiovascular: Reports no additional cardiovascular complaints, Denies chest pain, Denies lightheadedness, Denies Loss of Consciousness and Denies dyspnea <JOSIANE Gautam Last Filed: 08/21/22 16:36> Respiratory: Respiratory: Reports no additional respiratory complaints and Denies dyspnea <JOSIANE Gautam Last Filed: 08/21/22 16:36> Gastrointestinal: Gastrointestinal: Reports no additional gastrointestinal complaints, Denies abdominal pain, Denies melena, Denies hematochezia, Denies change in bowel habits and Denies change in stool character <JOSIANE Gautam Last Filed: 08/21/22 16:36> Genitourinary: Genitourinary: Reports no additional male genitourinary complaints, Denies hematuria, Denies oliguria, Denies difficulty urinating, Denies dysuria, Denies urinary frequency, Denies urinary hesitancy, Denies urinary incontinence and Denies urinary urgency <JOSIANE Gautam Last Filed: 08/21/22 16:36> Musculoskeletal: Musculoskeletal: Reports no additional musculoskeletal complaints, Denies numbness and Denies tingling <JOSIANE Gautam Last Filed: 08/21/22 16:36> Comments: left hip pain <JOSIANE Gautam Last Filed: 08/21/22 16:36> Neurologic: Denies dizziness, Denies loss of vision, Denies numbness and Denies tingling <JOSIANE Gautam Last Filed: 08/21/22 16:36> Psychiatric: Psychiatric: Reports no additional psychiatric complaints <JOSIANE Gautam Last Filed: 08/21/22 16:36> Endocrine: Endocrine: Reports no additional endocrine complaints <JOSIANE Gautam Last Filed: 08/21/22 16:36> Hematologic/Lymphatic: Hematologic/Lymphatic: Reports no additional hematologic/lymphatic complaints <JOSIANE Gautam Last Filed: 08/21/22 16:36> Allergic/Immunologic: Allergic/Immunologic: Reports no additional allergic/immunologic complaints <JOSIANE Gautam Last Filed: 08/21/22 16:36> PMFSH Past Medical History Attestation statement: The following information was validated with the patient. <JOSIANE Gautam - Last Filed: 08/21/22 16:36> Source: old records reviewed and nursing notes reviewed <JOSIANE Gautam - Last Filed: 08/21/22 16:36> Medical History: Medical History Allergic bronchitis Anxiety and depression Asthma exacerbation Atrial fibrillation Chest tightness Constipation Degenerative disc disease Diverticular disease Dyspnea on exertion Dysuria Fatigue Fatigue Generalized anxiety disorder GERD (gastroesophageal reflux disease) Gout Headache Hospital discharge follow-up Hypertension Iron deficiency anemia Knee fracture, left Leukocytosis Low vitamin D level Moderate recurrent major depression Obesity (BMI 30-39.9) Obstructive sleep apnea Peptic ulcer disease Premature atrial complexes Prostate cancer Rash Serum potassium elevated Shortness of breath SOB (shortness of breath) on exertion Tinea cruris Vitamin B12 deficiency Vitamin D deficiency Wedge compression fracture of L1 vertebra <JOSIANE Gautam - Last Filed: 08/21/22 16:36> Surgical History: Surgical History H/O hernia repair H/O rectal polypectomy History of bowel resection History of cholecystectomy History of colonoscopy History of hemiarthroplasty of left hip History of knee replacement procedure of left knee History of pyloroplasty <JOSIANE Gautam - Last Filed: 08/21/22 16:36> Family History Family History: Family History Father Diabetes Acute kidney failure Glaucoma Mother Lung cancer <JOSIANE Gautam - Last Filed: 08/21/22 16:36> Social History Social History: Social History Household Members: None Housing: Apartment Do you presently have visiting nurse or other home services: No Alcohol intake: unknown Patient Tobacco Use Status: Former Tobacco user Quit Date: Tobacco use type: Cigar e-Cigarette/Vaping Use: Currently Using Second Hand Smoke Exposure: No Advance Directives: Yes Advance Directives on File: Yes Advance Directives Date on File: 07/03/22 service: No Current occupational status: retired Cognitive needs: No Hearing needs: Yes Vision needs: Yes <JOSIANE Gautam - Last Filed: 08/21/22 16:36> Physical Exam ED Vital Signs: Vital Signs - 24 hr 08/21/22 12:07 08/21/22 14:03 08/21/22 16:06 Temperature 98.5 F 97.7 F Pulse Rate 90 95 101 H Respiratory Rate 28 H 21 H 20 Blood Pressure 135/74 127/67 Pulse Oximetry 99 99 96 Oxygen Delivery Method Room Air Room Air Room Air 08/21/22 17:10 08/21/22 17:56 Temperature Pulse Rate 96 Respiratory Rate 17 24 H Blood Pressure 130/68 Pulse Oximetry 96 Oxygen Delivery Method Room Air BMI result Body Mass Index 34.6 <JOSIANE Gautam Last Filed: 08/21/22 16:36> Vital Signs - 24 hr 08/21/22 12:07 08/21/22 14:03 08/21/22 16:06 Temperature 98.5 F 97.7 F Pulse Rate 90 95 101 H Respiratory Rate 28 H 21 H 20 Blood Pressure 135/74 127/67 Pulse Oximetry 99 99 96 Oxygen Delivery Method Room Air Room Air Room Air 08/21/22 17:10 08/21/22 17:56 Temperature Pulse Rate 96 Respiratory Rate 17 24 H Blood Pressure 130/68 Pulse Oximetry 96 Oxygen Delivery Method Room Air BMI result Body Mass Index 34.6 <JOSIANE Saenz Last Filed: 08/22/22 11:28> Const General: cooperative, no acute distress, alert and awake <JOSIANE Gautam Last Filed: 08/21/22 16:36> Nutritional Appearance: well nourished <JOSIANE Gautam Last Filed: 08/21/22 16:36> Orientation/consciousness: patient oriented x3 <JOSIANE Gautam Last Filed: 08/21/22 16:36> Limitations: no limitations <JOSIANE Gautam Last Filed: 08/21/22 16:36> HENMT Head: Yes normal to inspection and Yes atraumatic <JOSIANE Gautam Last Filed: 08/21/22 16:36> Ears: hearing grossly normal bilaterally and external ears normal <JOSIANE Gautam Last Filed: 08/21/22 16:36> General nose exam: Normal external nose present, no nasal discharge noted and no epistaxis <Chen Tiwari MN - Last Filed: 08/21/22 16:36> Face and sinus: Yes normal facial exam, No abrasion and No laceration <Chen Tiwari MN - Last Filed: 08/21/22 16:36> Mouth: Normal oral and palatal mucosa present, no drooling and no muffled voice <Chen Tiwari [facility] Last Filed: 08/21/22 16:36> Eyes General: appearance normal, both eyes and all related structures <Chen Tiwari MN - Last Filed: 08/21/22 16:36> Periorbital: periorbital findings normal <Chen Tiwari MN - Last Filed: 08/21/22 16:36> Eyelids: Yes eyelids normal <Chen Tiwari MN - Last Filed: 08/21/22 16:36> Conjunctivae: conjunctivae normal <Chen Tiwari MN - Last Filed: 08/21/22 16:36> Pupils: Equal, round and reactive pupils present <Chen Tiwari MN - Last Filed: 08/21/22 16:36> EOM: EOMs intact bilaterally <Chen Tiwari [facility] Last Filed: 08/21/22 16:36> Neck Neck: Yes normal visual inspection, Yes full ROM and Yes no lymphadenopathy <Chen Tiwari MN - Last Filed: 08/21/22 16:36> Chest Chest palpation & inspection: normal inspection of the chest <Chen Tiwari [facility] Last Filed: 08/21/22 16:36> Resp Effort & Inspection: normal respiratory effort and able to speak in complete sentences <Chen Tiwari [facility] Last Filed: 08/21/22 16:36> GI Inspection: Yes normal to inspection <Chen Tiwari [facility] Last Filed: 08/21/22 16:36> Palpation (GI): Soft to palpation, not firm, nontender and no guarding <Chen Tiwari MN - Last Filed: 08/21/22 16:36> Neuro General: patient oriented x3 and moves all extremities <Chen Tiwari MN - Last Filed: 08/21/22 16:36> Cranial nerves: Yes Equal, round and reactive pupils present <Chen Campbellfilippo MN - Last Filed: 08/21/22 16:36> Cognition (Neuro): normal cognition <Chen Tiwari [facility] Last Filed: 08/21/22 16:36> Motor exam (neuro): 5/5 motor strength present throughout <Chen Tiwari [facility] Last Filed: 08/21/22 16:36> Sensory Exam: Normal double simultaneous stimulation for sensation <Chen Tiwari [facility] Last Filed: 08/21/22 16:36> Coordination: [id number] test normal <Chen Tiwari [facility] Last Filed: 08/21/22 16:36> Extrem Other: left leg is externally rotated and shortened <Chen Tiwari [facility] Last Filed: 08/21/22 16:36> General: Yes capillary refill normal <Chen Tiwari JOSIANE Last Filed: 08/21/22 16:36> Psych Appearance: grossly normal <Chen Tiwari JOSIANE Last Filed: 08/21/22 16:36> Mental Status: mental status grossly normal <Chen Tiwari JOSIANE Last Filed: 08/21/22 16:36> Affect: normal affect <Chen Tiwari [facility] Last Filed: 08/21/22 16:36> Attitude: cooperative <Chen Tiwari JOSIANE Last Filed: 08/21/22 16:36> Thought process: Normal thought process present <Chen Tiwari JOSIANE Last Filed: 08/21/22 16:36> Thought content: Normal thought content present <Chen Tiwari JOSIANE Last Filed: 08/21/22 16:36> Insight: Good insight present (Psych) <Chen Tiwari JOSIANE Last Filed: 08/21/22 16:36> Course Reevaluation(s) Reevaluation #1: Patient is altered, combative, will place soft tissue strains at this time. CT head with moderate white matter small chronic vessel ischemic disease. No acute intracranial abnormalities. Mild extracranial soft tissue inflammatory changes of the left parietal region. CT of the cervical spine unremarkable. CT of the abdomen pelvis with a posteriorly and cephalad dislocated left hip prosthesis, swelling of the musculature around the left hip swelling of the left iliopsoas muscle which extends along the left side of the pelvic johnson and proximally to the level of the mid lumbar spine likely intramuscular bleed or hematoma. Patient also noted to have sternal fracture that is minimally displaced, as well as nondisplaced fracture of the lateral aspect of the left 6th rib. Our surgical team said this is not appropriate to keep in-house. Reached out to [facility]. Patient to be transferred to the emergency department and be seen by trauma . <JOSIANE Saenz - Last Filed: 08/22/22 11:28> Time: 17:29 <JOSIANE Saenz - Last Filed: 08/22/22 11:28> Medications Administered Discontinued Medications Generic Name Dose Route Start Last Admin Trade Name Freq PRN Reason Stop Dose Admin Hydromorphone HCl 1 mg 08/21/22 17:05 08/21/22 17:10 Hydromorphone Hcl 1 Mg/Ml Syringe IVPUSH 08/21/22 17:06 1 mg ONCE STA Administration Protocol Sodium Chloride 1,000 mls @ 999 mls/hr 08/21/22 14:30 08/21/22 16:08 Ns IV 08/21/22 15:30 Infused .Q1H1M MAGALIS Infusion Sodium Chloride 1,000 mls @ 999 mls/hr 08/21/22 16:15 08/21/22 17:49 Ns IV 08/21/22 17:15 Infused .Q1H1M MAGALIS Infusion Iohexol 100 ml 08/21/22 14:53 08/21/22 14:53 Iohexol 350 Mg/Ml 100 Ml Infus..Btl IV 08/21/22 14:54 85 ml ONCE ONE Administration Morphine Sulfate 4 mg 08/21/22 16:14 08/21/22 16:44 Morphine Sulfate 4 Mg/Ml Cartridge IVPUSH 08/21/22 16:15 4 mg ONCE ONE Administration Protocol <JOSIANE Gautam - Last Filed: 08/21/22 16:36> Medications Administered Discontinued Medications Generic Name Dose Route Start Last Admin Trade Name Freq PRN Reason Stop Dose Admin Hydromorphone HCl 1 mg 08/21/22 17:05 08/21/22 17:10 Hydromorphone Hcl 1 Mg/Ml Syringe IVPUSH 08/21/22 17:06 1 mg ONCE STA Administration Protocol Sodium Chloride 1,000 mls @ 999 mls/hr 08/21/22 14:30 08/21/22 16:08 Ns IV 08/21/22 15:30 Infused .Q1H1M MAGALIS Infusion Sodium Chloride 1,000 mls @ 999 mls/hr 08/21/22 16:15 08/21/22 17:49 Ns IV 08/21/22 17:15 Infused .Q1H1M MAGALIS Infusion Iohexol 100 ml 08/21/22 14:53 08/21/22 14:53 Iohexol 350 Mg/Ml 100 Ml Infus..Btl IV 08/21/22 14:54 85 ml ONCE ONE Administration Morphine Sulfate 4 mg 08/21/22 16:14 08/21/22 16:44 Morphine Sulfate 4 Mg/Ml Cartridge IVPUSH 08/21/22 16:15 4 mg ONCE ONE Administration Protocol <OJSIANE Saenz - Last Filed: 08/22/22 11:28> Medical Decision Making Medical Decision Making [facility] Narrative: Patient is a 77 year old assigned male at presenting to the emergency department today with left hip pain after a fall. Patient's physical exam was as noted in the physical exam portion of this chart. Patient's blood work showed markedly elevated white blood cell counts and total CK. Patient's EKG showed atrial fib which is chronic for the patient. Patient's head, c-spine, chest, and abdomen/pelvis CTs are pending. Patient's left hip is a prosthetic and obviously dislocated. I spoke to ortho movie projectionist who recommended the patient have his left hip reduced if there is no connor prosthetic fracture. Patient signed out to [facility] disposition is pending imaging reads. <JOSIANE Gautam - Last Filed: 08/21/22 16:36> Differential Diagnosis Differential Diagnoses: The differential diagnosis associated with the presentation includes <JOSIANE Gautam Last Filed: 08/21/22 16:36> fall, dislocated left hip <JOSIANE Gautam Last Filed: 08/21/22 16:36> Consult Healthcare Provider Management of the patient was discussed with: Cashier Associate (spoke to orthopedic provider as noted in the MDM portion of this chart) <JOSIANE Gautam Last Filed: 08/21/22 16:36> Lab Data [facility] Lab Attestation statement: I reviewed the patient's lab results. <JOSIANE Gautam - Last Filed: 08/21/22 16:36> Result Diagrams: 08/21/22 12:35 08/21/22 12:35 <JOSIANE Gautam - Last Filed: 08/21/22 16:36> Labs: Lab Results 08/21/22 08/21/22 08/21/22 Range/Units 12:35 12:35 12:35 WBC 16.7 H (4.8-10.8) X10*3/uL RBC 3.45 L (4.60-5.80) X10*6/uL Hgb 10.5 L (14.0-18.0) g/dl Hct 31.6 L (42.0-52.0) % MCV 91.6 (80.0-98.0) fL MCH 30.4 (27.0-33.0) pg MCHC 33.2 (31.0-36.0) g/dl RDW 14.6 (11.0-16.0) % Plt Count 297 (160-400) X10*3/uL MPV 10.1 (9.4-12.4) fL Immature Gran % (Auto) 0.9 H (0.0-0.4) % Neut % (Auto) 80.1 H (45-73) % Lymph % (Auto) 8.3 L (20-40) % [place] % (Auto) 10.2 (2-11) % Eos % (Auto) 0.1 (0-4) % Baso % (Auto) 0.4 (0-2) % Lymph # (Auto) 1.4 (1.2-4.9) X10*3/uL [place] # (Auto) 1.7 H (0.1-1.2) X10*3/uL Eos # (Auto) 0.0 (0.0-0.4) X10*3/uL Baso # (Auto) 0.1 (0.0-0.2) X10*3/uL Abs Immat Gran (auto) 0.15 H (0.00-0.03) X10*3/uL Absolute Neuts (auto) 13.3 H (2.0-8.3) x10*3/uL Absolute Nucleated RBC 0.000 (0.0-0.012) X10*3/uL Nucleated RBC % (auto) 0.0 (0.0-0.2) /100WBC Smear Tech's Comments VERIFIED PT 13.0 (10.0-13.1) SEC INR 1.1 (0.9-1.1) APTT 32.4 (26.0-36.4) SEC Sodium 138 (135-145) mmol/L Potassium 4.2 (3.3-5.1) mmol/L Chloride 107 (96-108) mmol/L Carbon Dioxide 21 L (22-29) mmol/L Anion Gap 14 (12-20) BUN 29 H (9-16) mg/dL Creatinine 0.89 (0.5-1.4) mg/dL Estim Creat Clear Calc 45.8 Estimated GFR > 60 Random Glucose 68 (60-115) mg/dL Calcium 8.8 (8.4-10.2) mg/dL Magnesium 2.1 (1.6-2.6) mg/dL Total Bilirubin 1.2 H (0.0-1.0) mg/dL AST 99 H (5-37) U/L ALT 21 (0-40) U/L Alkaline Phosphatase 102 (39-117) U/L Total Creatine Kinase 8925 H (38-174) U/L Troponin I High Sens (<3.5-35.0) ng/L Total Protein 6.5 (6.5-8.0) g/dL Albumin 3.8 (3.5-5.0) g/dL Urine Color Urine Appearance Urine pH (5.0-9.0) Ur Specific [place] (1.005-1.025) Urine Protein (Neg-Trace) mg/dL Urine Glucose (UA) (Negative) mg/dL Urine Ketones (Negative) mg/dL Urine Blood (Negative) Urine Nitrite (Negative) Ur Leukocyte Esterase (Negative) Urine RBC (0-2) /HPF Urine WBC (0-5) /HPF Ur Squamous Epith Cells (0-2) /HPF Urine Bacteria (None Seen) Hyaline Casts (0-2) /LPF Salicylates (15-30) mg/dL Urine Opiates Screen (Not Detect) Urine Fentanyl Screen (Not Detect) Acetaminophen (<30) mcg/mL Ur Barbiturates Screen (Not Detect) Ur Phencyclidine Scrn (Not Detect) Ur Amphetamines Screen (Not Detect) U Benzodiazepines Scrn (Not Detect) Urine Cocaine Screen (Not Detect) U Marijuana (THC) Screen (Not Detect) Ethyl Alcohol mg/dL 08/21/22 08/21/22 08/21/22 Range/Units 17:00 17:21 17:21 WBC (4.8-10.8) X10*3/uL RBC (4.60-5.80) X10*6/uL Hgb (14.0-18.0) g/dl Hct (42.0-52.0) % MCV (80.0-98.0) fL MCH (27.0-33.0) pg MCHC (31.0-36.0) g/dl RDW (11.0-16.0) % Plt Count (160-400) X10*3/uL MPV (9.4-12.4) fL Immature Gran % (Auto) (0.0-0.4) % Neut % (Auto) (45-73) % Lymph % (Auto) (20-40) % [place] % (Auto) (2-11) % Eos % (Auto) (0-4) % Baso % (Auto) (0-2) % Lymph # (Auto) (1.2-4.9) X10*3/uL [place] # (Auto) (0.1-1.2) X10*3/uL Eos # (Auto) (0.0-0.4) X10*3/uL Baso # (Auto) (0.0-0.2) X10*3/uL Abs Immat Gran (auto) (0.00-0.03) X10*3/uL Absolute Neuts (auto) (2.0-8.3) x10*3/uL Absolute Nucleated RBC (0.0-0.012) X10*3/uL Nucleated RBC % (auto) (0.0-0.2) /100WBC Smear Tech's Comments PT (10.0-13.1) SEC INR (0.9-1.1) APTT (26.0-36.4) SEC Sodium (135-145) mmol/L Potassium (3.3-5.1) mmol/L Chloride (96-108) mmol/L Carbon Dioxide (22-29) mmol/L Anion Gap (12-20) BUN (9-16) mg/dL Creatinine (0.5-1.4) mg/dL Estim Creat Clear Calc Estimated GFR Random Glucose (60-115) mg/dL Calcium (8.4-10.2) mg/dL Magnesium (1.6-2.6) mg/dL Total Bilirubin (0.0-1.0) mg/dL AST (5-37) U/L ALT (0-40) U/L Alkaline Phosphatase (39-117) U/L Total Creatine Kinase (38-174) U/L Troponin I High Sens 5.3 (<3.5-35.0) ng/L Total Protein (6.5-8.0) g/dL Albumin (3.5-5.0) g/dL Urine Color Yellow Urine Appearance Clear Urine pH 5.0 (5.0-9.0) Ur Specific [place] >= 1.030 H (1.005-1.025) Urine Protein Trace (Neg-Trace) mg/dL Urine Glucose (UA) Negative (Negative) mg/dL Urine Ketones 40 (Negative) mg/dL Urine Blood Negative (Negative) Urine Nitrite Negative (Negative) Ur Leukocyte Esterase Negative (Negative) Urine RBC 0-2 (0-2) /HPF Urine WBC 0-5 (0-5) /HPF Ur Squamous Epith Cells 0-2 (0-2) /HPF Urine Bacteria None Seen (None Seen) Hyaline Casts 0-2 (0-2) /LPF Salicylates < 5.0 L (15-30) mg/dL Urine Opiates Screen (Not Detect) Urine Fentanyl Screen (Not Detect) Acetaminophen < 17 (<30) mcg/mL Ur Barbiturates Screen (Not Detect) Ur Phencyclidine Scrn (Not Detect) Ur Amphetamines Screen (Not Detect) U Benzodiazepines Scrn (Not Detect) Urine Cocaine Screen (Not Detect) U Marijuana (THC) Screen (Not Detect) Ethyl Alcohol < 10 mg/dL 08/21/22 08/21/22 Range/Units 17:21 17:21 WBC 15.0 H (4.8-10.8) X10*3/uL RBC 3.33 L (4.60-5.80) X10*6/uL Hgb 10.1 L (14.0-18.0) g/dl Hct 30.8 L (42.0-52.0) % MCV 92.5 (80.0-98.0) fL MCH 30.3 (27.0-33.0) pg MCHC 32.8 (31.0-36.0) g/dl RDW 14.6 (11.0-16.0) % Plt Count 285 (160-400) X10*3/uL MPV 10.2 (9.4-12.4) fL Immature Gran % (Auto) 0.6 H (0.0-0.4) % Neut % (Auto) 76.1 H (45-73) % Lymph % (Auto) 12.6 L (20-40) % [place] % (Auto) 10.2 (2-11) % Eos % (Auto) 0.2 (0-4) % Baso % (Auto) 0.3 (0-2) % Lymph # (Auto) 1.9 (1.2-4.9) X10*3/uL [place] # (Auto) 1.5 H (0.1-1.2) X10*3/uL Eos # (Auto) 0.0 (0.0-0.4) X10*3/uL Baso # (Auto) 0.0 (0.0-0.2) X10*3/uL Abs Immat Gran (auto) 0.09 H (0.00-0.03) X10*3/uL Absolute Neuts (auto) 11.4 H (2.0-8.3) x10*3/uL Absolute Nucleated RBC 0.000 (0.0-0.012) X10*3/uL Nucleated RBC % (auto) 0.0 (0.0-0.2) /100WBC Smear Tech's Comments PT (10.0-13.1) SEC INR (0.9-1.1) APTT (26.0-36.4) SEC Sodium (135-145) mmol/L Potassium (3.3-5.1) mmol/L Chloride (96-108) mmol/L Carbon Dioxide (22-29) mmol/L Anion Gap (12-20) BUN (9-16) mg/dL Creatinine (0.5-1.4) mg/dL Estim Creat Clear Calc Estimated GFR Random Glucose (60-115) mg/dL Calcium (8.4-10.2) mg/dL Magnesium (1.6-2.6) mg/dL Total Bilirubin (0.0-1.0) mg/dL AST (5-37) U/L ALT (0-40) U/L Alkaline Phosphatase (39-117) U/L Total Creatine Kinase (38-174) U/L Troponin I High Sens (<3.5-35.0) ng/L Total Protein (6.5-8.0) g/dL Albumin (3.5-5.0) g/dL Urine Color Urine Appearance Urine pH (5.0-9.0) Ur Specific [place] (1.005-1.025) Urine Protein (Neg-Trace) mg/dL Urine Glucose (UA) (Negative) mg/dL Urine Ketones (Negative) mg/dL Urine Blood (Negative) Urine Nitrite (Negative) Ur Leukocyte Esterase (Negative) Urine RBC (0-2) /HPF Urine WBC (0-5) /HPF Ur Squamous Epith Cells (0-2) /HPF Urine Bacteria (None Seen) Hyaline Casts (0-2) /LPF Salicylates (15-30) mg/dL Urine Opiates Screen Not Detected (Not Detect) Urine Fentanyl Screen Not Detected (Not Detect) Acetaminophen (<30) mcg/mL Ur Barbiturates Screen Not Detected (Not Detect) Ur Phencyclidine Scrn Not Detected (Not Detect) Ur Amphetamines Screen Not Detected (Not Detect) U Benzodiazepines Scrn Not Detected (Not Detect) Urine Cocaine Screen Not Detected (Not Detect) U Marijuana (THC) Screen Not Detected (Not Detect) Ethyl Alcohol mg/dL <JOSIANE Gautam - Last Filed: 08/21/22 16:36> Lab Results 08/21/22 08/21/22 08/21/22 Range/Units 12:35 12:35 12:35 WBC 16.7 H (4.8-10.8) X10*3/uL RBC 3.45 L (4.60-5.80) X10*6/uL Hgb 10.5 L (14.0-18.0) g/dl Hct 31.6 L (42.0-52.0) % MCV 91.6 (80.0-98.0) fL MCH 30.4 (27.0-33.0) pg MCHC 33.2 (31.0-36.0) g/dl RDW 14.6 (11.0-16.0) % Plt Count 297 (160-400) X10*3/uL MPV 10.1 (9.4-12.4) fL Immature Gran % (Auto) 0.9 H (0.0-0.4) % Neut % (Auto) 80.1 H (45-73) % Lymph % (Auto) 8.3 L (20-40) % [place] % (Auto) 10.2 (2-11) % Eos % (Auto) 0.1 (0-4) % Baso % (Auto) 0.4 (0-2) % Lymph # (Auto) 1.4 (1.2-4.9) X10*3/uL [place] # (Auto) 1.7 H (0.1-1.2) X10*3/uL Eos # (Auto) 0.0 (0.0-0.4) X10*3/uL Baso # (Auto) 0.1 (0.0-0.2) X10*3/uL Abs Immat Gran (auto) 0.15 H (0.00-0.03) X10*3/uL Absolute Neuts (auto) 13.3 H (2.0-8.3) x10*3/uL Absolute Nucleated RBC 0.000 (0.0-0.012) X10*3/uL Nucleated RBC % (auto) 0.0 (0.0-0.2) /100WBC Smear Tech's Comments VERIFIED PT 13.0 (10.0-13.1) SEC INR 1.1 (0.9-1.1) APTT 32.4 (26.0-36.4) SEC Sodium 138 (135-145) mmol/L Potassium 4.2 (3.3-5.1) mmol/L Chloride 107 (96-108) mmol/L Carbon Dioxide 21 L (22-29) mmol/L Anion Gap 14 (12-20) BUN 29 H (9-16) mg/dL Creatinine 0.89 (0.5-1.4) mg/dL Estim Creat Clear Calc 45.8 Estimated GFR > 60 Random Glucose 68 (60-115) mg/dL Calcium 8.8 (8.4-10.2) mg/dL Magnesium 2.1 (1.6-2.6) mg/dL Total Bilirubin 1.2 H (0.0-1.0) mg/dL AST 99 H (5-37) U/L ALT 21 (0-40) U/L Alkaline Phosphatase 102 (39-117) U/L Total Creatine Kinase 8925 H (38-174) U/L Troponin I High Sens (<3.5-35.0) ng/L Total Protein 6.5 (6.5-8.0) g/dL Albumin 3.8 (3.5-5.0) g/dL Urine Color Urine Appearance Urine pH (5.0-9.0) Ur Specific [place] (1.005-1.025) Urine Protein (Neg-Trace) mg/dL Urine Glucose (UA) (Negative) mg/dL Urine Ketones (Negative) mg/dL Urine Blood (Negative) Urine Nitrite (Negative) Ur Leukocyte Esterase (Negative) Urine RBC (0-2) /HPF Urine WBC (0-5) /HPF Ur Squamous Epith Cells (0-2) /HPF Urine Bacteria (None Seen) Hyaline Casts (0-2) /LPF Salicylates (15-30) mg/dL Urine Opiates Screen (Not Detect) Urine Fentanyl Screen (Not Detect) Acetaminophen (<30) mcg/mL Ur Barbiturates Screen (Not Detect) Ur Phencyclidine Scrn (Not Detect) Ur Amphetamines Screen (Not Detect) U Benzodiazepines Scrn (Not Detect) Urine Cocaine Screen (Not Detect) U Marijuana (THC) Screen (Not Detect) Ethyl Alcohol mg/dL 08/21/22 08/21/22 08/21/22 Range/Units 17:00 17:21 17:21 WBC (4.8-10.8) X10*3/uL RBC (4.60-5.80) X10*6/uL Hgb (14.0-18.0) g/dl Hct (42.0-52.0) % MCV (80.0-98.0) fL MCH (27.0-33.0) pg MCHC (31.0-36.0) g/dl RDW (11.0-16.0) % Plt Count (160-400) X10*3/uL MPV (9.4-12.4) fL Immature Gran % (Auto) (0.0-0.4) % Neut % (Auto) (45-73) % Lymph % (Auto) (20-40) % [place] % (Auto) (2-11) % Eos % (Auto) (0-4) % Baso % (Auto) (0-2) % Lymph # (Auto) (1.2-4.9) X10*3/uL [place] # (Auto) (0.1-1.2) X10*3/uL Eos # (Auto) (0.0-0.4) X10*3/uL Baso # (Auto) (0.0-0.2) X10*3/uL Abs Immat Gran (auto) (0.00-0.03) X10*3/uL Absolute Neuts (auto) (2.0-8.3) x10*3/uL Absolute Nucleated RBC (0.0-0.012) X10*3/uL Nucleated RBC % (auto) (0.0-0.2) /100WBC Smear Tech's Comments PT (10.0-13.1) SEC INR (0.9-1.1) APTT (26.0-36.4) SEC Sodium (135-145) mmol/L Potassium (3.3-5.1) mmol/L Chloride (96-108) mmol/L Carbon Dioxide (22-29) mmol/L Anion Gap (12-20) BUN (9-16) mg/dL Creatinine (0.5-1.4) mg/dL Estim Creat Clear Calc Estimated GFR Random Glucose (60-115) mg/dL Calcium (8.4-10.2) mg/dL Magnesium (1.6-2.6) mg/dL Total Bilirubin (0.0-1.0) mg/dL AST (5-37) U/L ALT (0-40) U/L Alkaline Phosphatase (39-117) U/L Total Creatine Kinase (38-174) U/L Troponin I High Sens 5.3 (<3.5-35.0) ng/L Total Protein (6.5-8.0) g/dL Albumin (3.5-5.0) g/dL Urine Color Yellow Urine Appearance Clear Urine pH 5.0 (5.0-9.0) Ur Specific [place] >= 1.030 H (1.005-1.025) Urine Protein Trace (Neg-Trace) mg/dL Urine Glucose (UA) Negative (Negative) mg/dL Urine Ketones 40 (Negative) mg/dL Urine Blood Negative (Negative) Urine Nitrite Negative (Negative) Ur Leukocyte Esterase Negative (Negative) Urine RBC 0-2 (0-2) /HPF Urine WBC 0-5 (0-5) /HPF Ur Squamous Epith Cells 0-2 (0-2) /HPF Urine Bacteria None Seen (None Seen) Hyaline Casts 0-2 (0-2) /LPF Salicylates < 5.0 L (15-30) mg/dL Urine Opiates Screen (Not Detect) Urine Fentanyl Screen (Not Detect) Acetaminophen < 17 (<30) mcg/mL Ur Barbiturates Screen (Not Detect) Ur Phencyclidine Scrn (Not Detect) Ur Amphetamines Screen (Not Detect) U Benzodiazepines Scrn (Not Detect) Urine Cocaine Screen (Not Detect) U Marijuana (THC) Screen (Not Detect) Ethyl Alcohol < 10 mg/dL 08/21/22 08/21/22 Range/Units 17:21 17:21 WBC 15.0 H (4.8-10.8) X10*3/uL RBC 3.33 L (4.60-5.80) X10*6/uL Hgb 10.1 L (14.0-18.0) g/dl Hct 30.8 L (42.0-52.0) % MCV 92.5 (80.0-98.0) fL MCH 30.3 (27.0-33.0) pg MCHC 32.8 (31.0-36.0) g/dl RDW 14.6 (11.0-16.0) % Plt Count 285 (160-400) X10*3/uL MPV 10.2 (9.4-12.4) fL Immature Gran % (Auto) 0.6 H (0.0-0.4) % Neut % (Auto) 76.1 H (45-73) % Lymph % (Auto) 12.6 L (20-40) % [place] % (Auto) 10.2 (2-11) % Eos % (Auto) 0.2 (0-4) % Baso % (Auto) 0.3 (0-2) % Lymph # (Auto) 1.9 (1.2-4.9) X10*3/uL [place] # (Auto) 1.5 H (0.1-1.2) X10*3/uL Eos # (Auto) 0.0 (0.0-0.4) X10*3/uL Baso # (Auto) 0.0 (0.0-0.2) X10*3/uL Abs Immat Gran (auto) 0.09 H (0.00-0.03) X10*3/uL Absolute Neuts (auto) 11.4 H (2.0-8.3) x10*3/uL Absolute Nucleated RBC 0.000 (0.0-0.012) X10*3/uL Nucleated RBC % (auto) 0.0 (0.0-0.2) /100WBC Smear Tech's Comments PT (10.0-13.1) SEC INR (0.9-1.1) APTT (26.0-36.4) SEC Sodium (135-145) mmol/L Potassium (3.3-5.1) mmol/L Chloride (96-108) mmol/L Carbon Dioxide (22-29) mmol/L Anion Gap (12-20) BUN (9-16) mg/dL Creatinine (0.5-1.4) mg/dL Estim Creat Clear Calc Estimated GFR Random Glucose (60-115) mg/dL Calcium (8.4-10.2) mg/dL Magnesium (1.6-2.6) mg/dL Total Bilirubin (0.0-1.0) mg/dL AST (5-37) U/L ALT (0-40) U/L Alkaline Phosphatase (39-117) U/L Total Creatine Kinase (38-174) U/L Troponin I High Sens (<3.5-35.0) ng/L Total Protein (6.5-8.0) g/dL Albumin (3.5-5.0) g/dL Urine Color Urine Appearance Urine pH (5.0-9.0) Ur Specific [place] (1.005-1.025) Urine Protein (Neg-Trace) mg/dL Urine Glucose (UA) (Negative) mg/dL Urine Ketones (Negative) mg/dL Urine Blood (Negative) Urine Nitrite (Negative) Ur Leukocyte Esterase (Negative) Urine RBC (0-2) /HPF Urine WBC (0-5) /HPF Ur Squamous Epith Cells (0-2) /HPF Urine Bacteria (None Seen) Hyaline Casts (0-2) /LPF Salicylates (15-30) mg/dL Urine Opiates Screen Not Detected (Not Detect) Urine Fentanyl Screen Not Detected (Not Detect) Acetaminophen (<30) mcg/mL Ur Barbiturates Screen Not Detected (Not Detect) Ur Phencyclidine Scrn Not Detected (Not Detect) Ur Amphetamines Screen Not Detected (Not Detect) U Benzodiazepines Scrn Not Detected (Not Detect) Urine Cocaine Screen Not Detected (Not Detect) U Marijuana (THC) Screen Not Detected (Not Detect) Ethyl Alcohol mg/dL <JOSIANE Saenz Last Filed: 08/22/22 11:28> Independent Interpretation I performed an independent interpretation of an: EKG <JOSIANE Gautam Last Filed: 08/21/22 16:36> Interpretation: Vent. Rate: 092 BPM ? ? Atrial Rate: 000 BPM P-R Int: 000 ms? QRS Dur: 080 ms QT Int: 374 ms ? ? ? P-R-T Axes: 000 057 085 degrees QTc Int: 462 ms ? Atrial fibrillation Anterolateral infarct (cited on or before 27-JUL-2022) Abnormal ECG When compared with ECG of 27-JUL-2022 08:33, Atrial fibrillation has replaced Sinus rhyth DD/ 1211 <JOSIANE Gautam Last Filed: 08/21/22 16:36> Independent Historian Clinical information obtained from an independent historian. History obtained from or confirmed by: EMS <JOSIANE Gautam Last Filed: 08/21/22 16:36> Critical Care Time Critical Care Time Critical Care Time: Yes <JOSIANE Gautam Last Filed: 08/21/22 16:36> Total Critical Care Time: 45 <JOSIANE Gautam Last Filed: 08/21/22 16:36> Attestation: I spent 45 minutes of Critical Care Time with this patient. This does not include time spent on separately reported billable procedures. <JOSIANE Gautam - Last Filed: 08/21/22 16:36> Discharge Plan Discharge Clinical Impression: Hematoma of muscle, Dislocated hip, Rhabdomyolysis, Sternal fracture, Fracture, rib, Altered mental status <JOSIANE Gautam - Last Filed: 08/21/22 16:36> Patient Disposition: [facility] <JOSIANE Gautam - Last Filed: 08/21/22 16:36> Transfer Details: [facility] <JOSIANE Gautam - Last Filed: 08/21/22 16:36> [facility] <JOSIANE Saenz - Last Filed: 08/22/22 11:28> Prescriptions: No Action (DME) BD Safety-Jackie Detachable Needl 3 mL 25 gauge x 5/8 syringe See Rx Instructions .ROUTE .MEDSUPPLY Qty: 100 12RF Rx Instructions: As directed fexofenadine 180 mg tablet 180 mg PO DAILY PRN (Reason: allergy symptoms) Qty: 90 3RF albuterol sulfate [ProAir HFA] 90 mcg/actuation HFA aerosol inhaler 2 puff inhalation Q6H PRN (Reason: shortness of breath or wheezing) Qty: 8.5 0RF amlodipine 10 mg tablet 10 mg PO DAILY Qty: 90 2RF apixaban 5 mg tablet 5 mg PO BID 90 Days Qty: 180 2RF ferrous sulfate [Feosol] 325 mg (65 mg iron) tablet 325 mg PO DAILY Qty: 90 2RF usivtpmnak-tmskaakaevwzk-kdap 50-325-40 mg tablet 1 tab PO BEDTIME PRN (Reason: Migraine Headache) lorazepam 1 mg tablet 1 tab PO BID venlafaxine 150 mg capsule,extended release 24hr 150 mg PO DAILY Rx Instructions: take with 37.5mg for total dose of 187.5mg venlafaxine 37.5 mg capsule,extended release 24hr 1 cap PO DAILY Rx Instructions: take with 150mg for total dose of 187.5mg latanoprost 0.005 % drops 1 drp ophthalmic (eye) BEDTIME lorazepam 1 mg tablet 1 mg PO DAILY PRN (Reason: Anxiety) fluticasone propionate 50 mcg/actuation spray,suspension 1 spray intranasal BID PRN (Reason: Allergy Symptoms) Rx Instructions: instill one spray into each nostril Gemtesa 75 mg tablet 1 tab PO DAILY omeprazole 40 mg capsule,delayed release(DR/EC) 40 mg PO DAILY@0630 cyanocobalamin (vitamin B-12) 1,000 mcg/mL solution 1,000 mcg subcut QMONTH docusate sodium [Colace] 100 mg capsule 100 mg PO BID Qty: 60 2RF divalproex 500 mg tablet,delayed release (DR/EC) 500 mg PO QPM Advair HFA 45-21 mcg/actuation HFA aerosol inhaler 2 puff inhalation BID <JOSIANE Gautam - Last Filed: 08/21/22 16:36> Interventions: Acute Care Transfer Worksheet (ED) Last Done: 08/21/22 18:32 <JOSIANE Gautam - Last Filed: 08/21/22 16:36> Discharge Date/Time: 08/21/22 18:15 <JOSIANE Gautam - Last Filed: 08/21/22 16:36>
--- NOTE | 2022-08-21 12:03 | ECG_ITS ---
Test Reason : FALL, WEAKNESS Blood Pressure : / mmHG Vent. Rate : 092 BPM Atrial Rate : 000 BPM P-R Int : 000 ms QRS Dur : 080 ms QT Int : 374 ms P-R-T Axes : 000 057 085 degrees QTc Int : 462 ms NSR with PACs Anterolateral infarct (cited on or before 27-JUL-2022) Abnormal ECG When compared with ECG of 27-JUL-2022 08:33, No significant changes seen Referred By: Chen Tiwari Electronically Signed By:Reynold Ybarra
[2022-08-21 12:07] VITALS: BP 127/77; PULSE 90; PULSE 92; RESP 28; TEMP 36.9; O2SAT 99; BMI 34.6
--- NOTE | 2022-08-21 12:38 | PC.NURSE ---
pt fall at home with unknown down time, possible last night. bruising noted on bilateral upper extrem, and skin tear on left elbow. Shortening/rotation of left leg noted, pedal pulses present +2. Pt alert to verbal stimuli and answers yes or no questions, though speech is unclear. Pt can point to areas causing pain. IV inserted in right AC. RR 28, vitals otherwise stable.
[2022-08-21 12:43] LABS: Basophils Absolute Auto 0.1 X10*3/uL (0.0-0.2); Basophils Percent Auto 0.4 % (0-2); Eosinophils Percent Auto 0.1 % (0-4); Hematocrit 31.6 % (42.0-52.0); Hemoglobin 10.5 g/dl (14.0-18.0); Imm Gran Abs Auto 0.15 X10*3/uL (0.00-0.03); Imm Gran Pct Auto 0.9 % (0.0-0.4); Lymphocytes Absolute Auto 1.4 X10*3/uL (1.2-4.9); Lymphocytes Percent Auto 8.3 % (20-40); MANUAL DIFF FLAG SCAN; Mean Corpuscular HGB Conc 33.2 g/dl (31.0-36.0); Mean Corpuscular Hemoglobin 30.4 pg (27.0-33.0); Mean Corpuscular Volume 91.6 fL (80.0-98.0); Mean Platelet Volume 10.1 fL (9.4-12.4); Monocytes Absolute Auto 1.7 X10*3/uL (0.1-1.2); Monocytes Percent Auto 10.2 % (2-11); Neutrophils Absolute Auto 13.3 x10*3/uL (2.0-8.3); Neutrophils Percent Auto 80.1 % (45-73); Platelet Count 297 X10*3/uL (160-400); Red Blood Count 3.45 X10*6/uL (4.60-5.80); Red Cell Distribution Width 14.6 % (11.0-16.0); SCAN SMEAR FLAG 1; White Blood Count 16.7 X10*3/uL (4.8-10.8)
[2022-08-21 12:49] LABS: INTERNATIONAL NORM RATIO 1.1 (0.9-1.1)
[2022-08-21 12:52] LABS: Partial Thromboplastin Time 32.4 SEC (26.0-36.4)
[2022-08-21 13:02] LABS: SLIDE REVIEW VERIFIED
[2022-08-21 13:36] LABS: Alanine Aminotransferase 21 U/L (0-40); Albumin Level 3.8 g/dL (3.5-5.0); Alkaline Phosphatase 102 U/L (39-117); Anion Gap 14 (12-20); Aspartate Amino Transferase 99 U/L (5-37); Bilirubin Total 1.2 mg/dL (0.0-1.0); Blood Urea Nitrogen 29 mg/dL (9-16); Calcium 8.8 mg/dL (8.4-10.2); Carbon Dioxide 21 mmol/L (22-29); Chloride 107 mmol/L (96-108); Creatinine Clr Calc Pharmacy 45.8; Estimated Glomerular Filt Rate > 60; Glucose Random 68 mg/dL (60-115); Magnesium 2.1 mg/dL (1.6-2.6); Potassium 4.2 mmol/L (3.3-5.1); Sodium 138 mmol/L (135-145); Total Protein 6.5 g/dL (6.5-8.0)
[2022-08-21 14:03] VITALS: BP 135/74; PULSE 95; RESP 21; O2SAT 99
--- NOTE | 2022-08-21 14:25 | MHC.EDTECH ---
Pt was found incontinent of urine in the bed. Pt was given connor care with total assist of 2. Pt was responsive to requests to turn from side to side but required assistance. Pt has a bruise on left side hip. A [place] Cath was used to help the pt with incontinence. Pt tolerated activity well. Juan.
[2022-08-21] MEDS: iohexoL 350 MG/ML 100 ML INFUS..BTL IV (14:53)
[2022-08-21] MEDS: 0.9 % Sodium Chloride 1,000 ML 999 ML IV ×2 (14:55→16:44)
--- NOTE | 2022-08-21 14:55 | PC.NURSE ---
IVF hung per order
--- NOTE | 2022-08-21 15:30 | PC.NURSE ---
pt has bilateral arm skin tears which pt arrived with, they were dressed with assistance of tech
[2022-08-21 16:06] VITALS: BP 127/67; PULSE 101; RESP 20; TEMP 36.5; O2SAT 96
[2022-08-21] MEDS: Morphine Sulfate 4 MG/ML CARTRIDGE IVPUSH (16:44)
--- NOTE | 2022-08-21 16:44 | PC.NURSE ---
pt moaning and pulling at equipment, hitting/pinching staff, second bag of fluids hung per order, morphine given per order, cardiac catheterization technician intact-nsr on monitor. will continue to monitor.
--- NOTE | 2022-08-21 17:03 | PC.NURSE ---
daily cath inserted
[2022-08-21 17:10] VITALS: RESP 17
[2022-08-21] MEDS: HYDROmorphone HCl 1 MG/ML SYRINGE IVPUSH (17:10)
--- NOTE | 2022-08-21 17:10 | PC.NURSE ---
dilaudid given per order
--- NOTE | 2022-08-21 17:12 | PC.NURSE ---
doppler pulses performed and marked, pt has + left popliteal, + post tib and + pedal pulses.
--- NOTE | 2022-08-21 17:15 | PC.NURSE ---
pt has pulled neck brace up to middle of his mouth, provider notified and cleared c-spine, neck brace removed at this time.
[2022-08-21 17:30] LABS: Basophils Percent Auto 0.3 % (0-2); Eosinophils Percent Auto 0.2 % (0-4); Hematocrit 30.8 % (42.0-52.0); Hemoglobin 10.1 g/dl (14.0-18.0); Imm Gran Abs Auto 0.09 X10*3/uL (0.00-0.03); Imm Gran Pct Auto 0.6 % (0.0-0.4); Lymphocytes Absolute Auto 1.9 X10*3/uL (1.2-4.9); Lymphocytes Percent Auto 12.6 % (20-40); Mean Corpuscular HGB Conc 32.8 g/dl (31.0-36.0); Mean Corpuscular Hemoglobin 30.3 pg (27.0-33.0); Mean Corpuscular Volume 92.5 fL (80.0-98.0); Mean Platelet Volume 10.2 fL (9.4-12.4); Monocytes Absolute Auto 1.5 X10*3/uL (0.1-1.2); Neutrophils Absolute Auto 11.4 x10*3/uL (2.0-8.3); Neutrophils Percent Auto 76.1 % (45-73); Platelet Count 285 X10*3/uL (160-400); Red Blood Count 3.33 X10*6/uL (4.60-5.80); Red Cell Distribution Width 14.6 % (11.0-16.0); SCAN SMEAR FLAG 1
--- NOTE | 2022-08-21 17:35 | PC.NURSE ---
repeat labs performed
--- NOTE | 2022-08-21 17:43 | PC.NURSE ---
patient alert to self only, unable to verbally speak with staff-moaning, pt combative- hitting, kicking, pinching, pulling at equipment, pulling at daily cath and ivf, provider notified and pt placed in soft restraints to upper extremities only- please see paper documentation.
[2022-08-21 17:44] LABS: Amphetamine Screen Urine Not Detected (Not Detect); Barbiturates, Urine Not Detected (Not Detect); Benzodiazepines Screen Urine Not Detected (Not Detect); Cannabinoid Screen Urine Not Detected (Not Detect); Cocaine Screen Urine Not Detected (Not Detect); Fentanyl, urine Not Detected (Not Detect); Opiate Screen Urine Not Detected (Not Detect); Phencyclidine Screen Urine Not Detected (Not Detect)
[2022-08-21 17:50] LABS: Acetaminophen LAB < 17 mcg/mL (<30); Ethanol < 10 mg/dL; Salicylate < 5.0 mg/dL (15-30)
[2022-08-21 17:52] LABS: MANUAL DIFF FLAG NO; Monocytes Percent Auto 10.2 % (2-11)
[2022-08-21 17:55] LABS: Troponin-I High Sensitivity 5.3 ng/L (<3.5-35.0)
[2022-08-21 17:56] VITALS: BP 130/68; PULSE 96; RESP 24; O2SAT 96
--- NOTE | 2022-08-21 17:59 | PC.NURSE ---
daily cath patient and draining
--- NOTE | 2022-08-21 18:10 | PC.NURSE ---
ems arrived to transport patient to [facility] to call report to [facility], pt restraints removed and patients daily cath emptied- 500 output of clear yellow urine, pt transferred to ems stretcher for transport
--- NOTE | 2022-08-21 18:15 | PC.NURSE ---
1815 pt discharging to [facility]- charge looking over restraint forms will discharge upon completion.
[2022-08-21 19:46] LABS: Appearance Urine Clear; Color Urine Yellow; Glucose Urine UA Negative (Negative); Leukocyte Esterase Urine Negative (Negative); Nitrite Urine Negative (Negative); Specific Gravity - Urine >= 1.030 (1.005-1.025); Urine Blood Negative (Negative); Urine Ketones 40 mg/dL (Negative); Urine Protein Trace mg/dL (Neg-Trace)
[2022-08-21 19:51] LABS: Bacteria Urine None Seen (None Seen); Hyaline Casts Urine 0-2 /LPF (0-2); RBC Urine 0-2 /HPF (0-2); Squamous Epithelial Cell Urine 0-2 /HPF (0-2); WBC Urine 0-5 /HPF (0-5)
== END 2022-08-21 18:15 | disposition short-term general hospital (02) ==
PROVIDERS: Physician Assistant; Physician Assistant Medical; Emergency Provider Student in an Organized Health Care Education/Training Program
DX: R41.82 Altered mental status, unspecified (principal); T79.6XXA Traumatic ischemia of muscle, initial encounter; S70.02XA Contusion of left hip, initial encounter; S73.015A Posterior dislocation of left hip, initial encounter; S22.20XA Unspecified fracture of sternum, initial encounter for closed fracture; S22.32XA Fracture of one rib, left side, initial encounter for closed fracture; W19.XXXA Unspecified fall, initial encounter; R45.6 Violent behavior; Z91.81 History of falling; Y93.9 Activity, unspecified; Y92.039 Unspecified place in apartment as the place of occurrence of the external cause; Y99.9 Unspecified external cause status; Z79.899 Other long term (current) drug therapy
CPT/HCPCS: 36415; 70450; 71260; 72125; 73502; 74177; 80053; 80143; 80179; 80307; 81001; 82077; 82550; 83735; 84484; 85025; 85610; 85730; 93005; 96361; 96374; 96375; 99285; J1170; J2270; Q9967

== ENCOUNTER 2022-09-16 03:18 | Day surgery (SDC) | payer MEDICARE, SELFPAY ==
[2022-09-16] VITALS (14 sets, daily range): BP systolic 99–153; BP diastolic 55–79; PULSE 65–93; RESP 14–22; TEMP 36–36.7; O2SAT 95–100; BMI 27.1
--- NOTE | ~2022-09-16 | FL_ITS ---
EXAMINATION: XR FLUOROSCOPY WITH IMAGES CLINICAL INFORMATION: Closed reduction dislocation left hip. COMPARISON: Radiographs left hip 09/16/2022. TECHNIQUE: Fluoroscopy Supervised By: Dr. Jose Elizondo. Fluoroscopy Time: 0.1 minutes. Cumulative Dose: 2.73 mGy. DAP: 0.0477 mGycm2. Images: 1. FINDINGS: There is normal alignment left hip prosthesis on the AP view. Visualized hardware and bone otherwise unremarkable. FL/FL guidance in OR IMPRESSION: Status post reduction left hip prosthesis.
--- NOTE | ~2022-09-16 | XR_ITS ---
EXAMINATION: XR HIP, LEFT CLINICAL INFORMATION: Attempted reduction COMPARISON: Earlier same day TECHNIQUE: AP view of the left hip. XR/XR hip LT 1V FINDINGS/IMPRESSION: Persistent superior dislocation of the left femoral prosthesis with respect to the acetabular cup. No fractures.
--- NOTE | ~2022-09-16 | CT_ITS ---
EXAMINATION: CT HIP WITHOUT CONTRAST, LEFT CLINICAL INFORMATION: Fracture versus dislocation COMPARISON: Radiographs from 08/21/2022 and 02/18/2019 TECHNIQUE: Multidetector CT imaging of the left hip was performed without the use of intravenous contrast. Coronal and sagittal reformats created on an independent workstation were reviewed. This CT examination was performed using dose optimization techniques as appropriate, variously including the following: *Automated exposure control *Adjustment of mA and/or kV according to patient size (this includes techniques or standardized protocols for targeted exams where dose is matched to indication/reason for exam; i.e. extremities or head) *Use of iterative reconstruction technique DLP: 336 mGy-cm FINDINGS: There is a posterosuperior dislocation of the left femoral prosthetic head with respect to the acetabular cup. There is enthesopathy along the greater trochanter and heterotopic ossification along the proximal femur and about the hip joint which is chronic. The acetabular cup is stably positioned, retained by 2 acetabular augmentation screws. Imaged bony pelvis intact. There is a 6.8 x 6.4 x 6.9 cm fluid collection lateral to the proximal left femur with subcutaneous fat which may represent a chronic seroma. Surrounding fat stranding present. Imaged abdominal viscera reveals diverticulosis coli, brachytherapy seeds in the prostate and a previous ventral hernia repair. CT/CT hip LT wo IV con IMPRESSION: * Posterosuperior dislocation of the left femoral prosthetic head with respect to the acetabular cup. No associated fractures. * Chronic fluid collection lateral to the proximal left femur measuring 6.8 x 6.4 x 6.9 cm., With surrounding fat stranding. This may represent a chronic seroma, however abscess is not excluded. Consider ultrasound-guided diagnostic aspiration if clinically indicated.
--- NOTE | ~2022-09-16 | CT_ITS ---
EXAMINATION: NONCONTRAST HEAD CT NONCONTRAST CERVICAL SPINE CT INDICATION INFORMATION: Fall. COMPARISON: 08/21/2022 TECHNIQUE: Separate noncontrast CT examinations of the head and cervical spine were performed. Coronal and sagittal images were created for each examination at the technologist workstation. This CT examination was performed using dose optimization techniques as appropriate, variously including the following: *Automated exposure control *Adjustment of mA and/or kV according to patient size (this includes techniques or standardized protocols for targeted exams where dose is matched to indication/reason for exam; i.e. extremities or head) *Use of iterative reconstruction technique DLP: 1964 mGy-cm FINDINGS: Head: There is no evidence of acute intracranial hemorrhage or territorial infarction. No abnormal mass effect or midline shift is seen. Valentin to white matter differentiation is well preserved. No extra-axial fluid collections are identified. No hydrocephalus. Proportional prominence of the ventricles and sulcal spaces is consistent with moderate volume loss. Patchy periventricular and deep white matter hypoattenuation is consistent with moderate small vessel ischemic changes. Small right parietal calvarial subgaleal hematoma. The mastoid air cells and visualized portions of the paranasal sinuses are well aerated. Cervical spine: There is anatomic alignment of the vertebral bodies and posterior elements. The atlantoaxial and atlantooccipital articulations are intact. Cervical vertebral body heights maintained. Chronic mild anterior wedge compression deformity at T1 is unchanged resulting in 20% height loss anteriorly. Loss of disc space height and small endplate osteophytes at C5-C6 and C6-C7. No evidence of acute fracture. No prevertebral soft tissue swelling. Visualized portions of the lung apices are unremarkable. The thyroid gland is unremarkable. CT/CT cervical spine wo IV con IMPRESSION: * No acute intracranial bleed or territorial infarction. * No acute fracture or malalignment of the cervical spine.
--- NOTE | 2022-09-16 03:26 | ECG_ITS ---
Test Reason : FALL Blood Pressure : / mmHG Vent. Rate : 092 BPM Atrial Rate : 092 BPM P-R Int : 158 ms QRS Dur : 068 ms QT Int : 386 ms P-R-T Axes : 074 051 062 degrees QTc Int : 477 ms Poor data quality Sinus rhythm with marked sinus arrhythmia Nonspecific ST abnormality Abnormal ECG When compared with ECG of 21-AUG-2022 12:11, No significant changes seen Referred By: Alma Delia Phillips Electronically Signed By:Reynold Ybarra
--- NOTE | 2022-09-16 03:26 | ED.FALL ---
HPI - Fall General Chief Complaint: Fall Stated Complaint: Fall with Lt hip injury,with head strike Time Seen by Provider: 09/16/22 03:20 Source: EMS Mode of arrival: EMS Limitations: other (In too much pain) History of Present Illness HPI Narrative: Patient comes to the emergency room via ambulance from the [facility]. Patient had an unwitnessed fall. Staff heard the fall. Questionably, patient hit his head, unclear. Patient is on Eliquis for atrial fibrillation and previous history of pulmonary embolism. However, patient complaining of severe left-sided hip pain and there is obvious internal rotation of the hip. Patient complaining of severe pain. Related Data Home Medications Medication Instructions Recorded Confirmed feivirlnfi-nfbhmoyzaghhg-astfasmr 1 tab PO BEDTIME PRN Migraine 10/20/20 08/21/22 50 mg-325 mg-40 mg tablet Headache lorazepam 1 mg tablet 1 tab PO BID 10/20/20 08/21/22 venlafaxine 150 mg 150 mg PO DAILY 04/17/21 08/21/22 capsule,extended release 24 hr fluticasone propionate 45 2 puff inhalation BID 12/14/21 08/21/22 mcg-salmeterol 21 mcg/actuation HFA inhaler (Advair HFA) cyanocobalamin (vitamin B-12) 1,000 mcg subcut QMONTH 06/09/22 08/21/22 1,000 mcg/mL injection solution fluticasone propionate 50 1 spray intranasal BID PRN Allergy 06/09/22 08/21/22 mcg/actuation nasal Symptoms spray,suspension latanoprost 0.005 % eye drops 1 drp ophthalmic (eye) BEDTIME 06/09/22 08/21/22 lorazepam 1 mg tablet 1 mg PO DAILY PRN Anxiety 06/09/22 08/21/22 omeprazole 40 mg capsule,delayed 40 mg PO DAILY@0630 06/09/22 08/21/22 release venlafaxine 37.5 mg 1 cap PO DAILY 06/09/22 08/21/22 capsule,extended release 24 hr vibegron 75 mg tablet (Gemtesa) 1 tab PO DAILY 06/09/22 08/21/22 divalproex 500 mg tablet,delayed 500 mg PO QPM 08/21/22 08/21/22 release Previous Rx's Medication Instructions Recorded syringe with needle, safety 3 mL #100 ea 06/02/21 25 gauge x 5/8 (BD Safety-Jackie Detachable Needle) fexofenadine 180 mg tablet 180 mg PO DAILY PRN allergy 08/10/21 symptoms #90 caps albuterol sulfate 90 mcg/actuation 2 puff inhalation Q6H PRN 12/22/21 aerosol inhaler (ProAir HFA) shortness of breath or wheezing #8.5 grams amlodipine 10 mg tablet 10 mg PO DAILY #90 caps 02/21/22 apixaban 5 mg tablet 5 mg PO BID 90 days #180 tabs 03/07/22 docusate sodium 100 mg capsule 100 mg PO BID #60 caps 06/17/22 (Colace) ferrous sulfate 325 mg (65 mg 325 mg PO DAILY #90 tabs 08/18/22 iron) tablet (Feosol) Allergies Allergy/AdvReac Type Severity Reaction Status Date / Time carisoprodol [From Soma] Allergy Mild MENTAL Verified 03/08/22 15:43 STATUS CHANGE, BECOMES AGGRESIVE codeine [Codeine] Allergy Mild STOMACH Verified 03/08/22 15:43 UPSET, RASH gabapentin AdvReac Intermediate lousy Verified 03/08/22 15:43 feeling Review of Systems Review of Systems: Constitutional : No Weight loss, No Fever, No Chills, No Night Sweats, No Fatigue, No Malaise ENT/Mouth : No Hearing loss, No Ear Pain, No Nasal Congestion, No Sinus Pain, No Hoarseness, No sore throat, No Rhinorrhea, No Swallowing Difficulty Eyes: No Eye Pain, No Swelling, No Redness, No Foreign Body, No Discharge, No Vision Changes Cardiovascular : No Chest Pain, No SOB, No Dyspnea on Exertion, No Orthopnea, No Edema, No Palpitations Respiratory : No Cough, No Sputum, No Wheezing, No Smoke Exposure, No Dyspnea Gastrointestinal : No Nausea, No Vomiting, No Diarrhea, No Constipation, No abdominal Pain, No Hematochezia, No Melena Genitourinary : no irregular bleeding, No Dysuria, No Urinary Frequency, No Hematuria, No Urinary Incontinence, No Urgency, No Flank Pain, No Urinary Flow Changes, No Hesitancy Musculoskeletal : Complaining of left-sided hip pain, No Myalgias, No Joint Swelling Skin : No Skin Lesions, No rash Neuro : No Weakness, No Numbness, No Paresthesias, No Loss of Consciousness, No Dizziness, No Headache Psych : No Anxiety/Panic, No Depression, No SI/HI/AH/VH, No Social Issues, Heme/Lymph: No Bruising, No Bleeding,No Lymphadenopathy Endocrine : No Polyuria, No Polydipsia, No Temperature Intolerance [facility] Past Medical History Medical History Allergic bronchitis Anxiety and depression Asthma exacerbation Atrial fibrillation Chest tightness Constipation Degenerative disc disease Diverticular disease Dyspnea on exertion Dysuria Fatigue Fatigue Generalized anxiety disorder GERD (gastroesophageal reflux disease) Gout Headache Hospital discharge follow-up Hypertension Iron deficiency anemia Knee fracture, left Leukocytosis Low vitamin D level Moderate recurrent major depression Obesity (BMI 30-39.9) Obstructive sleep apnea Peptic ulcer disease Premature atrial complexes Prostate cancer Rash Serum potassium elevated Shortness of breath SOB (shortness of breath) on exertion Tinea cruris Vitamin B12 deficiency Vitamin D deficiency Wedge compression fracture of L1 vertebra Surgical History H/O hernia repair H/O rectal polypectomy History of bowel resection History of cholecystectomy History of colonoscopy History of hemiarthroplasty of left hip History of knee replacement procedure of left knee History of pyloroplasty Family History Family History Father Diabetes Acute kidney failure Glaucoma Mother Lung cancer Social History Social History Household Members: None Housing: Apartment Do you presently have visiting nurse or other home services: No Alcohol intake: never Patient Tobacco Use Status: Former Tobacco user Quit Date: Tobacco use type: Cigar Smoked in Last 30 Days: No e-Cigarette/Vaping Use: Currently Using Second Hand Smoke Exposure: No Use of substances other than those prescribed or required for medical reasons: No Advance Directives: Yes Advance Directives on File: Yes Advance Directives Date on File: 07/03/22 service: No Current occupational status: retired Cognitive needs: No Hearing needs: Yes Vision needs: Yes Physical Exam Vital Signs: Vital Signs: Last Vital Signs Temp 97.8 F 09/16/22 04:50 Pulse 76 09/16/22 05:21 Resp 14 09/16/22 05:21 BP 118/61 09/16/22 05:21 Pulse Ox 97 09/16/22 05:21 O2 Del Method Nasal Cannula 09/16/22 05:21 O2 Flow Rate 2 09/16/22 05:21 Oxygen Flow Rate 2 09/16/22 05:21 BMI result Body Mass Index 27.1 Const: Other: Appearance: Alert. In severe distress due to pain Eyes: Pupils equal, round and reactive to light. ENT: Pharynx normal. Neck: Normal inspection. Neck supple. No lymph nodes noted. No crepitus CVS: Normal heart rate and rhythm. Pulses normal. Normal S1 and S2 Respiratory: No respiratory distress. Breath sounds normal. No Wheezing. No rales Abdomen: Soft and nontender. No rigidity. No distention. Skin: Skin warm and dry. Normal skin color. Normal skin turgor. Extremities: Left lower extremity is internally rotated, patient cannot tolerate the pain with any movement Neuro: No slurred speech. CN 2 through 12 grossly intact Psych: calm, cooperative, normal affect Course Course Course Narrative: -patient receiving IM Dilaudid and Zofran while we obtain labs and align -CT scan of the head, cervical spine and hip pending Medications Administered Discontinued Medications Generic Name Dose Route Start Last Admin Trade Name Freq PRN Reason Stop Dose Admin Diphenhydramine HCl 50 mg 09/16/22 03:43 09/16/22 03:50 Diphenhydramine Hcl 50 Mg/Ml Vial IVPUSH 09/16/22 03:44 50 mg ONCE ONE Administration Fentanyl 50 mcg 09/16/22 05:54 09/16/22 06:13 Fentanyl Citrate/Pf 100 Mcg/2 Ml Vial IVPUSH 09/16/22 05:55 50 mcg ONCE ONE Administration Protocol Hydromorphone HCl 0.5 mg 09/16/22 03:24 09/16/22 03:30 Hydromorphone Hcl 0.5 Mg/0.5 Ml Syringe IM 09/16/22 03:25 0.5 mg ONCE ONE Administration Protocol Lorazepam 2 mg 09/16/22 03:43 09/16/22 03:50 Lorazepam 2 Mg/Ml Vial IVPUSH 09/16/22 03:44 2 mg ONCE ONE Administration Ondansetron HCl 4 mg 09/16/22 03:25 09/16/22 03:29 Ondansetron Hcl 4 Mg/2 Ml Vial IM 09/16/22 03:26 4 mg ONCE ONE Administration Propofol 90 mg 09/16/22 04:42 09/16/22 05:03 Propofol 200 Mg/20 Ml Vial IVPUSH 09/16/22 04:43 90 mg ONCE ONE Administration Medical Decision Making Medical Decision Making [facility] Narrative: -patient is unable to give any consent. -interpretation of hip/pelvis CT scan: left prostatic hip is dislocated -I called patient's healthcare proxy Mr. Yg Keller, a close friend of the patient's, I discussed the situation with the healthcare proxy who agrees to conscious sedation and hip reduction. -patient was given initially 90mg of propofol. The procedure itself took longer than expected, patient was given additionally 2 doses of 45 mg IV of propofol, total of 180 mg of propofol -of note, after the 1st push of propofol, patient became hypoxic, oxygen dropped to 60% on 2 L nasal cannula, patient had to be ventilated for a few seconds and recuperated on eventfully, within less than a minute. -I was unable to reduce the hip. I discussed the patient with JOSIANE Garrison from Orthopedics, patient to be kept NPO. Reduction by orthopedics will be attempted -urine analysis is pending -blood pressure dropped to 88 systolic, this is secondary to propofol and other medications, sepsis not suspected. -per patient states he does not remember exactly where he had his hip replacement surgery done, patient states ?somewhere in [place]? -orthopedics is on the way to attempt reduction. Patient to be kept NPO. Sign-out given to Dr. Kendall Consult Healthcare Provider Management of the patient was discussed with: Beam Dyer Operator Lab Data 09/16/22 03:53 09/16/22 03:53 Labs: Lab Results 09/16/22 09/16/22 09/16/22 Range/Units 03:53 03:53 03:53 WBC 12.6 H (4.8-10.8) X10*3/uL RBC 3.45 L (4.60-5.80) X10*6/uL Hgb 10.0 L (14.0-18.0) g/dl Hct 31.1 L (42.0-52.0) % MCV 90.1 (80.0-98.0) fL MCH 29.0 (27.0-33.0) pg MCHC 32.2 (31.0-36.0) g/dl RDW 14.5 (11.0-16.0) % Plt Count 360 D (160-400) X10*3/uL MPV 11.0 (9.4-12.4) fL Immature Gran % (Auto) 0.4 (0.0-0.4) % Neut % (Auto) 35.9 L (45-73) % Lymph % (Auto) 53.8 H (20-40) % [place] % (Auto) 8.1 (2-11) % Eos % (Auto) 1.2 (0-4) % Baso % (Auto) 0.6 (0-2) % Lymph # (Auto) 6.8 H (1.2-4.9) X10*3/uL [place] # (Auto) 1.0 (0.1-1.2) X10*3/uL Eos # (Auto) 0.2 (0.0-0.4) X10*3/uL Baso # (Auto) 0.1 (0.0-0.2) X10*3/uL Abs Immat Gran (auto) 0.05 H (0.00-0.03) X10*3/uL Absolute Neuts (auto) 4.5 (2.0-8.3) x10*3/uL Absolute Nucleated RBC 0.000 (0.0-0.012) X10*3/uL Nucleated RBC % (auto) 0.0 (0.0-0.2) /100WBC Smear Tech's Comments VERIFIED Sodium 140 (135-145) mmol/L Potassium 4.7 (3.3-5.1) mmol/L Chloride 105 (96-108) mmol/L Carbon Dioxide 23 (22-29) mmol/L Anion Gap 17 (12-20) BUN 15 (9-16) mg/dL Creatinine 0.95 (0.5-1.4) mg/dL Estim Creat Clear Calc 72.6 Estimated GFR > 60 Random Glucose 91 (60-115) mg/dL Calcium 9.0 (8.4-10.2) mg/dL Troponin I High Sens 3.7 (<3.5-35.0) ng/L Urine Color Urine Appearance Urine pH (5.0-9.0) Ur Specific [place] (1.005-1.025) Urine Protein (Neg-Trace) mg/dL Urine Glucose (UA) (Negative) mg/dL Urine Ketones (Negative) mg/dL Urine Blood (Negative) Urine Nitrite (Negative) Ur Leukocyte Esterase (Negative) 09/16/22 Range/Units 06:21 WBC (4.8-10.8) X10*3/uL RBC (4.60-5.80) X10*6/uL Hgb (14.0-18.0) g/dl Hct (42.0-52.0) % MCV (80.0-98.0) fL MCH (27.0-33.0) pg MCHC (31.0-36.0) g/dl RDW (11.0-16.0) % Plt Count (160-400) X10*3/uL MPV (9.4-12.4) fL Immature Gran % (Auto) (0.0-0.4) % Neut % (Auto) (45-73) % Lymph % (Auto) (20-40) % [place] % (Auto) (2-11) % Eos % (Auto) (0-4) % Baso % (Auto) (0-2) % Lymph # (Auto) (1.2-4.9) X10*3/uL [place] # (Auto) (0.1-1.2) X10*3/uL Eos # (Auto) (0.0-0.4) X10*3/uL Baso # (Auto) (0.0-0.2) X10*3/uL Abs Immat Gran (auto) (0.00-0.03) X10*3/uL Absolute Neuts (auto) (2.0-8.3) x10*3/uL Absolute Nucleated RBC (0.0-0.012) X10*3/uL Nucleated RBC % (auto) (0.0-0.2) /100WBC Smear Tech's Comments Sodium (135-145) mmol/L Potassium (3.3-5.1) mmol/L Chloride (96-108) mmol/L Carbon Dioxide (22-29) mmol/L Anion Gap (12-20) BUN (9-16) mg/dL Creatinine (0.5-1.4) mg/dL Estim Creat Clear Calc Estimated GFR Random Glucose (60-115) mg/dL Calcium (8.4-10.2) mg/dL Troponin I High Sens (<3.5-35.0) ng/L Urine Color Yellow Urine Appearance Clear Urine pH 8.5 (5.0-9.0) Ur Specific [place] 1.010 (1.005-1.025) Urine Protein Negative (Neg-Trace) mg/dL Urine Glucose (UA) Negative (Negative) mg/dL Urine Ketones Negative (Negative) mg/dL Urine Blood Negative (Negative) Urine Nitrite Negative (Negative) Ur Leukocyte Esterase Negative (Negative) Discharge Plan Discharge Clinical Impression: Dislocation of hip prosthesis Patient Disposition: Still a Patient Prescriptions: No Action (DME) BD Safety-Jackie Detachable Needl 3 mL 25 gauge x 5/8 syringe See Rx Instructions .ROUTE .MEDSUPPLY Qty: 100 12RF Rx Instructions: As directed fexofenadine 180 mg tablet 180 mg PO DAILY PRN (Reason: allergy symptoms) Qty: 90 3RF albuterol sulfate [ProAir HFA] 90 mcg/actuation HFA aerosol inhaler 2 puff inhalation Q6H PRN (Reason: shortness of breath or wheezing) Qty: 8.5 0RF amlodipine 10 mg tablet 10 mg PO DAILY Qty: 90 2RF apixaban 5 mg tablet 5 mg PO BID 90 Days Qty: 180 2RF ferrous sulfate [Feosol] 325 mg (65 mg iron) tablet 325 mg PO DAILY Qty: 90 2RF jcxrnppvdg-qdxqeyxafyhhw-vtxt 50-325-40 mg tablet 1 tab PO BEDTIME PRN (Reason: Migraine Headache) lorazepam 1 mg tablet 1 tab PO BID venlafaxine 150 mg capsule,extended release 24hr 150 mg PO DAILY Rx Instructions: take with 37.5mg for total dose of 187.5mg venlafaxine 37.5 mg capsule,extended release 24hr 1 cap PO DAILY Rx Instructions: take with 150mg for total dose of 187.5mg latanoprost 0.005 % drops 1 drp ophthalmic (eye) BEDTIME lorazepam 1 mg tablet 1 mg PO DAILY PRN (Reason: Anxiety) fluticasone propionate 50 mcg/actuation spray,suspension 1 spray intranasal BID PRN (Reason: Allergy Symptoms) Rx Instructions: instill one spray into each nostril Gemtesa 75 mg tablet 1 tab PO DAILY omeprazole 40 mg capsule,delayed release(DR/EC) 40 mg PO DAILY@0630 cyanocobalamin (vitamin B-12) 1,000 mcg/mL solution 1,000 mcg subcut QMONTH docusate sodium [Colace] 100 mg capsule 100 mg PO BID Qty: 60 2RF divalproex 500 mg tablet,delayed release (DR/EC) 500 mg PO QPM Advair HFA 45-21 mcg/actuation HFA aerosol inhaler 2 puff inhalation BID
[2022-09-16] MEDS: ondansetron HCL 4 MG/2 ML VIAL IM (03:29)
[2022-09-16] MEDS: HYDROmorphone HCl 0.5 MG/0.5 ML SYRINGE IM (03:30)
[2022-09-16] MEDS: diphenhydrAMINE HCL 50 MG/ML VIAL IVPUSH (03:50)
[2022-09-16] MEDS: LORazepam 2 MG/ML VIAL IVPUSH (03:50)
[2022-09-16 04:00] LABS: Basophils Absolute Auto 0.1 X10*3/uL (0.0-0.2); Basophils Percent Auto 0.6 % (0-2); Eosinophils Absolute Auto 0.2 X10*3/uL (0.0-0.4); Eosinophils Percent Auto 1.2 % (0-4); Hematocrit 31.1 % (42.0-52.0); Imm Gran Abs Auto 0.05 X10*3/uL (0.00-0.03); Imm Gran Pct Auto 0.4 % (0.0-0.4); Lymphocytes Percent Auto 53.8 % (20-40); MANUAL DIFF FLAG SCAN; Mean Corpuscular HGB Conc 32.2 g/dl (31.0-36.0); Mean Corpuscular Volume 90.1 fL (80.0-98.0); Monocytes Percent Auto 8.1 % (2-11); Neutrophils Absolute Auto 4.5 x10*3/uL (2.0-8.3); Neutrophils Percent Auto 35.9 % (45-73); Platelet Count 360 X10*3/uL (160-400); Red Blood Count 3.45 X10*6/uL (4.60-5.80); Red Cell Distribution Width 14.5 % (11.0-16.0); SCAN SMEAR FLAG 1; White Blood Count 12.6 X10*3/uL (4.8-10.8)
[2022-09-16 04:02] LABS: Lymphocytes Absolute Auto 6.8 X10*3/uL (1.2-4.9)
[2022-09-16 04:19] LABS: Troponin-I High Sensitivity 3.7 ng/L (<3.5-35.0)
[2022-09-16 04:25] LABS: Anion Gap 17 (12-20); Blood Urea Nitrogen 15 mg/dL (9-16); Carbon Dioxide 23 mmol/L (22-29); Chloride 105 mmol/L (96-108); Creatinine Clr Calc Pharmacy 72.6; Estimated Glomerular Filt Rate > 60; Glucose Random 91 mg/dL (60-115); Potassium 4.7 mmol/L (3.3-5.1); Sodium 140 mmol/L (135-145)
[2022-09-16 04:38] LABS: SLIDE REVIEW VERIFIED
[2022-09-16] MEDS: propofoL 200 MG/20 ML VIAL 90 MG IVPUSH (05:03)
--- NOTE | 2022-09-16 05:14 | PC.NURSE ---
Addendum entered by Carolin Silva RN 09/16/22 05:28: At 05:20 became arousable and awake BP 118/61, HR 77, SO2 97 on 2 LNC, CO2 16, RR 16, pain level 4 out of 10. At 05:25 pt is awake and is responding to staff and is requesting something to drink. BP 122/72, HR 70, SO2 100% on 2LNC, Co2 19 Original Note: at 0510 given 45mg IVP of Propofol. BP 139/85, HR 83, RR 16, CO2 18, SO2 98% on 2LNC. at 0516 45mg IVP of Propofol. BP 121/65, HR69, RR 14, SO2 95 on 2LNC, CO2 20
[2022-09-16] MEDS: fentaNYL citrate/PF 100 MCG/2 ML VIAL 50 MCG IVPUSH (06:13)
[2022-09-16 06:28] LABS: Appearance Urine Clear; Color Urine Yellow; Glucose Urine UA Negative (Negative); Leukocyte Esterase Urine Negative (Negative); Nitrite Urine Negative (Negative); PH 8.5 (5.0-9.0); Urine Blood Negative (Negative); Urine Ketones Negative (Negative); Urine Protein Negative (Neg-Trace)
--- NOTE | 2022-09-16 07:53 | PC.NURSE ---
pt c/o 11/05 pain. informed MD who ordered 1mg Dilaudid. pt resting in bed at this time, periodically yelling out for RN. pt Left leg warm and dry, + pedal pulses. will medicate pt per JUN. plan for pt to go to OR at 0900.
[2022-09-16] MEDS: HYDROmorphone HCl 1 MG/ML SYRINGE IVPUSH (08:02)
--- NOTE | 2022-09-16 08:15 | PM.EVENT ---
Event Note Date of Service: 09/16/22 Event Note: 76-year-old man with a history HTN, diverticulitis, prostate cancer treated with radiation, history of PE on apixaban, paroxysmal atrial fibrillation, mood disorder, depression, chronic headaches, allergic asthma, iron deficiency anemia, and PUD came to the ED after sustaining an unwitnessed fall. He is a resident at [facility]. He is s/p revision LT MAGNO with Dr Stover at [facility] in 2020 due to recurrent dislocation. While in the ED, several attempts were made to reduce the hip under sedation which were un successful. Orthopedics was contacted for further recommendations. The decision was made to bring the patient to the OR for closed reduction under anesthesia. ED provider made aware and asked that the medical team see the patient STAT due to h/o afib and PE to make sure it is ok to proceed under anesthesia. patient was kept NPO. Time Spent With Patient Time: Total time managing care of this patient today ____ minutes.
--- NOTE | 2022-09-16 09:09 | P.CONAN_ITS ---
[facility] Active Problems Active Problems: All Active Problems (Updated 09/16/22 @ 05:44 by Alma Delia Phillips MD) Dislocation of hip prosthesis (Acute) Delirium (Acute) COVID-19 virus infection (Acute) S/P exploratory laparotomy (Acute) Chronic anticoagulation (Acute) Fatigue (Acute) Atrial fibrillation (Acute) Asthma (Acute) Generalized anxiety disorder (Acute) Chronic low back pain (Acute) B12 deficiency anemia (Acute) Pulmonary embolism (Acute) Iron deficiency anemia (Acute) Prostate cancer (Acute) Peptic ulcer disease (Acute) Iron deficiency anemia (Acute) Gout (Acute) Diverticular disease (Acute) Degenerative disc disease (Acute) Obesity (BMI 30-39.9) (Acute) GERD (gastroesophageal reflux disease) (Acute) Hypertension (Acute) Past Medical History Medical History Allergic bronchitis Anxiety and depression Asthma exacerbation Atrial fibrillation Chest tightness Constipation Degenerative disc disease Diverticular disease Dyspnea on exertion Dysuria Fatigue Fatigue Generalized anxiety disorder GERD (gastroesophageal reflux disease) Gout Headache Hospital discharge follow-up Hypertension Iron deficiency anemia Knee fracture, left Leukocytosis Low vitamin D level Moderate recurrent major depression Obesity (BMI 30-39.9) Obstructive sleep apnea Peptic ulcer disease Premature atrial complexes Prostate cancer Rash Serum potassium elevated Shortness of breath SOB (shortness of breath) on exertion Tinea cruris Vitamin B12 deficiency Vitamin D deficiency Wedge compression fracture of L1 vertebra Family History Family History Father Diabetes Acute kidney failure Glaucoma Mother Lung cancer Family history of problems with anesthesia: No Surgical History Surgical History H/O hernia repair H/O rectal polypectomy History of bowel resection History of cholecystectomy History of colonoscopy History of hemiarthroplasty of left hip History of knee replacement procedure of left knee History of pyloroplasty History of Problems with Anesthesia: No Social History Social History Household Members: None Housing: Apartment Do you presently have visiting nurse or other home services: No Alcohol intake: never Patient Tobacco Use Status: Former Tobacco user Quit Date: Tobacco use type: Cigar e-Cigarette/Vaping Use: Currently Using Second Hand Smoke Exposure: No Advance Directives Date on File: 07/03/22 service: No Current occupational status: retired Cognitive needs: No Hearing needs: Yes Vision needs: Yes Meds Allergies Allergy/AdvReac Type Severity Reaction Status Date / Time carisoprodol [From Soma] Allergy Mild MENTAL Verified 03/08/22 15:43 STATUS CHANGE, BECOMES AGGRESIVE codeine [Codeine] Allergy Mild STOMACH Verified 03/08/22 15:43 UPSET, RASH gabapentin AdvReac Intermediate lousy Verified 03/08/22 15:43 feeling Home Medications Medication Instructions Recorded Confirmed Last Taken Type swbtpyqgkw-mdoxmkujeullu-gdamqsds 1 tab PO BEDTIME PRN Migraine 10/20/20 08/21/22 Unknown History 50 mg-325 mg-40 mg tablet Headache lorazepam 1 mg tablet 1 tab PO BID 10/20/20 08/21/22 1 Day Ago History ~06/08/22 venlafaxine 150 mg 150 mg PO DAILY 04/17/21 08/21/22 1 Day Ago History capsule,extended release 24 hr ~06/08/22 fluticasone propionate 45 2 puff inhalation BID 12/14/21 08/21/22 1 Day Ago History mcg-salmeterol 21 mcg/actuation ~06/08/22 HFA inhaler (Advair HFA) cyanocobalamin (vitamin B-12) 1,000 mcg subcut QMONTH 06/09/22 08/21/22 1 Week Ago History 1,000 mcg/mL injection solution ~06/02/22 fluticasone propionate 50 1 spray intranasal BID PRN Allergy 06/09/22 08/21/22 Unknown History mcg/actuation nasal Symptoms spray,suspension latanoprost 0.005 % eye drops 1 drp ophthalmic (eye) BEDTIME 06/09/22 08/21/22 06/07/22 History lorazepam 1 mg tablet 1 mg PO DAILY PRN Anxiety 06/09/22 08/21/22 Unknown History omeprazole 40 mg capsule,delayed 40 mg PO DAILY@0630 06/09/22 08/21/22 1 Day Ago History release ~06/08/22 venlafaxine 37.5 mg 1 cap PO DAILY 06/09/22 08/21/22 1 Day Ago History capsule,extended release 24 hr ~06/08/22 vibegron 75 mg tablet (Gemtesa) 1 tab PO DAILY 06/09/22 08/21/22 1 Day Ago History ~06/08/22 divalproex 500 mg tablet,delayed 500 mg PO QPM 08/21/22 08/21/22 Unknown History release Exam Exam Date and Time: September 16, 2022 0909 Height,Weight and Vital Signs: Height 6 ft Weight 90.718 kg Last Vital Signs Temp 97.8 F 09/16/22 04:50 Pulse 74 09/16/22 07:42 Resp 16 09/16/22 07:42 BP 120/77 09/16/22 07:42 Pulse Ox 100 09/16/22 07:42 O2 Del Method Nasal Cannula 09/16/22 07:42 O2 Flow Rate 2 09/16/22 07:42 Oxygen Flow Rate 2 09/16/22 05:21 Pertinent Lab Results Pertinent Lab Results: Laboratory Tests 09/16/22 09/16/22 09/16/22 03:53 03:53 03:53 WBC 12.6 H RBC 3.45 L Hgb 10.0 L Hct 31.1 L MCV 90.1 MCH 29.0 MCHC 32.2 RDW 14.5 Plt Count 360 D MPV 11.0 Immature Gran % (Auto) 0.4 Neut % (Auto) 35.9 L Lymph % (Auto) 53.8 H [place] % (Auto) 8.1 Eos % (Auto) 1.2 Baso % (Auto) 0.6 Lymph # (Auto) 6.8 H [place] # (Auto) 1.0 Eos # (Auto) 0.2 Baso # (Auto) 0.1 Abs Immat Gran (auto) 0.05 H Absolute Neuts (auto) 4.5 Absolute Nucleated RBC 0.000 Nucleated RBC % (auto) 0.0 Smear Tech's Comments VERIFIED Sodium 140 Potassium 4.7 Chloride 105 Carbon Dioxide 23 Anion Gap 17 BUN 15 Creatinine 0.95 Estim Creat Clear Calc 72.6 Estimated GFR > 60 Random Glucose 91 Calcium 9.0 Troponin I High Sens 3.7 Urine Color Urine Appearance Urine pH Ur Specific [place] Urine Protein Urine Glucose (UA) Urine Ketones Urine Blood Urine Nitrite Ur Leukocyte Esterase 09/16/22 06:21 WBC RBC Hgb Hct MCV MCH MCHC RDW Plt Count MPV Immature Gran % (Auto) Neut % (Auto) Lymph % (Auto) [place] % (Auto) Eos % (Auto) Baso % (Auto) Lymph # (Auto) [place] # (Auto) Eos # (Auto) Baso # (Auto) Abs Immat Gran (auto) Absolute Neuts (auto) Absolute Nucleated RBC Nucleated RBC % (auto) Smear Tech's Comments Sodium Potassium Chloride Carbon Dioxide Anion Gap BUN Creatinine Estim Creat Clear Calc Estimated GFR Random Glucose Calcium Troponin I High Sens Urine Color Yellow Urine Appearance Clear Urine pH 8.5 Ur Specific [place] 1.010 Urine Protein Negative Urine Glucose (UA) Negative Urine Ketones Negative Urine Blood Negative Urine Nitrite Negative Ur Leukocyte Esterase Negative Airway Mallampati Class: III TM Dist: >3cm Neck ROM: Full Denture: Upper and Lower Assessment and Plan Assessment Anesthesia Assessment: Anesthesia Plan Discussed and Chart Reviewed Final Anesthetic Review Family History of Problems with Anesthesia: No History of Problems with Anesthesia: No NPO: Yes ASA Class: III and Emergency Final Preanesthetic Review: No Changes in Pt Med Stat, Meds/Allgs Chart Reviewed, Consent Obtained/Reviewed and Anes Risks/Benef Reviewed Patient Risk: Intermediate Procedure Risk: Low Anesthetic Plan Anesthetic Plan: GA Disposition: Standard PACU
--- NOTE | 2022-09-16 09:14 | PM.HPOR ---
History of Present Illness History of Present Illness Date of Service: 09/16/22 Chief complaint: Fall with Lt hip injury,with head strike Narrative: 76-year-old man with a history HTN, diverticulitis, prostate cancer treated with radiation, history of PE on apixaban, paroxysmal atrial fibrillation, mood disorder, depression, chronic headaches, allergic asthma, iron deficiency anemia, and PUD came to the ED after sustaining an unwitnessed fall. [facility]He was unable to get up and ambulate due to pain. He is s/p revision LT MAGNO with Dr Stover at [facility] in 2020 due to recurrent dislocation. While in the ED, several attempts were made to reduce the hip under sedation which were un successful. Orthopedics was contacted for further recommendations. Review of Systems Review of Systems: per [facility] Past Medical History Medical History Allergic bronchitis Anxiety and depression Asthma exacerbation Atrial fibrillation Chest tightness Constipation Degenerative disc disease Diverticular disease Dyspnea on exertion Dysuria Fatigue Fatigue Generalized anxiety disorder GERD (gastroesophageal reflux disease) Gout Headache Hospital discharge follow-up Hypertension Iron deficiency anemia Knee fracture, left Leukocytosis Low vitamin D level Moderate recurrent major depression Obesity (BMI 30-39.9) Obstructive sleep apnea Peptic ulcer disease Premature atrial complexes Prostate cancer Rash Serum potassium elevated Shortness of breath SOB (shortness of breath) on exertion Tinea cruris Vitamin B12 deficiency Vitamin D deficiency Wedge compression fracture of L1 vertebra Family History Family History Father Diabetes Acute kidney failure Glaucoma Mother Lung cancer Surgical History Surgical History H/O hernia repair H/O rectal polypectomy History of bowel resection History of cholecystectomy History of colonoscopy History of hemiarthroplasty of left hip History of knee replacement procedure of left knee History of pyloroplasty Social History Social History Household Members: None Housing: Apartment Do you presently have visiting nurse or other home services: No Alcohol intake: never Patient Tobacco Use Status: Former Tobacco user Quit Date: Tobacco use type: Cigar e-Cigarette/Vaping Use: Currently Using Second Hand Smoke Exposure: No Advance Directives Date on File: 07/03/22 service: No Current occupational status: retired Cognitive needs: No Hearing needs: Yes Vision needs: Yes Meds Allergies Allergy/AdvReac Type Severity Reaction Status Date / Time carisoprodol [From Soma] Allergy Mild MENTAL Verified 03/08/22 15:43 STATUS CHANGE, BECOMES AGGRESIVE codeine [Codeine] Allergy Mild STOMACH Verified 03/08/22 15:43 UPSET, RASH gabapentin AdvReac Intermediate lousy Verified 03/08/22 15:43 feeling Home Medications Medication Instructions Recorded Confirmed Last Taken Type qvepopmirg-mvymiedhygqda-nuuiezce 1 tab PO BEDTIME PRN Migraine 10/20/20 08/21/22 Unknown History 50 mg-325 mg-40 mg tablet Headache lorazepam 1 mg tablet 1 tab PO BID 10/20/20 08/21/22 1 Day Ago History ~06/08/22 venlafaxine 150 mg 150 mg PO DAILY 04/17/21 08/21/22 1 Day Ago History capsule,extended release 24 hr ~06/08/22 fluticasone propionate 45 2 puff inhalation BID 12/14/21 08/21/22 1 Day Ago History mcg-salmeterol 21 mcg/actuation ~06/08/22 HFA inhaler (Advair HFA) cyanocobalamin (vitamin B-12) 1,000 mcg subcut QMONTH 06/09/22 08/21/22 1 Week Ago History 1,000 mcg/mL injection solution ~06/02/22 fluticasone propionate 50 1 spray intranasal BID PRN Allergy 06/09/22 08/21/22 Unknown History mcg/actuation nasal Symptoms spray,suspension latanoprost 0.005 % eye drops 1 drp ophthalmic (eye) BEDTIME 06/09/22 08/21/22 06/07/22 History lorazepam 1 mg tablet 1 mg PO DAILY PRN Anxiety 06/09/22 08/21/22 Unknown History omeprazole 40 mg capsule,delayed 40 mg PO DAILY@0630 06/09/22 08/21/22 1 Day Ago History release ~06/08/22 venlafaxine 37.5 mg 1 cap PO DAILY 06/09/22 08/21/22 1 Day Ago History capsule,extended release 24 hr ~06/08/22 vibegron 75 mg tablet (Gemtesa) 1 tab PO DAILY 06/09/22 08/21/22 1 Day Ago History ~06/08/22 divalproex 500 mg tablet,delayed 500 mg PO QPM 08/21/22 08/21/22 Unknown History release Physical Exam Vital Signs: Vital Signs: Last Vital Signs Temp 97.8 F 09/16/22 04:50 Pulse 74 09/16/22 07:42 Resp 16 09/16/22 07:42 BP 120/77 09/16/22 07:42 Pulse Ox 100 09/16/22 07:42 O2 Del Method Nasal Cannula 09/16/22 07:42 O2 Flow Rate 2 09/16/22 07:42 Oxygen Flow Rate 2 09/16/22 05:21 BMI result Body Mass Index 27.1 Const: General: cooperative, healthy appearing, comfortable, no acute distress, well developed and alert Orientation/consciousness: patient oriented x3 HEENT: Head: Yes normal to inspection, Yes normocephalic and Yes atraumatic Eyes: General: appearance normal, both eyes and all related structures Neck: Neck: Yes normal visual inspection and Yes no lymphadenopathy Resp: Effort & Inspection: normal respiratory effort and able to speak in complete sentences Cardio: Rate: regular rate Peripheral pulses: Peripheral pulses 2+ throughout GI: Inspection: Yes normal to inspection Palpation (GI): Soft to palpation Skin: General skin exam: no rashes or lesions noted Neuro: General: patient oriented x3 Extrem: Other: Left hip TTP, leg is hortened and IR. NVI Psych: Appearance: grossly normal Mental Status: mental status grossly normal Results Labs 09/16/22 03:53 09/16/22 03:53 Labs: Abnormal lab results 09/16/22 Range/Units 03:53 WBC 12.6 H (4.8-10.8) X10*3/uL RBC 3.45 L (4.60-5.80) X10*6/uL Hgb 10.0 L (14.0-18.0) g/dl Hct 31.1 L (42.0-52.0) % Neut % (Auto) 35.9 L (45-73) % Lymph % (Auto) 53.8 H (20-40) % Lymph # (Auto) 6.8 H (1.2-4.9) X10*3/uL Abs Immat Gran (auto) 0.05 H (0.00-0.03) X10*3/uL H & H 09/16/22 Range/Units 03:53 Hgb 10.0 L (14.0-18.0) g/dl Hct 31.1 L (42.0-52.0) % All other labs normal. Assessment and Plan (1) Dislocation of hip prosthesis: Status: Acute Plan I discussed the case with Dr Elizondo and given the ED was unable to reduce, the decision was made to bring the patient to the OR for closed reduction under anesthesia. Risk, benefits and alternatives discussed. Risk including but not limited to recurrent dislocation, periprosthetic fracture, nerve/tissue injury, and need for further surgeries. The patient does understand all this and would like to proceed with closed reduction of the left hip prosthesis. Time Spent With Patient Time: Total time managing care of this patient today ____ minutes. Quality Stroke Does the patient have a stroke diagnosis?: No VTE Prior VTE?: Yes VTE Risk Level:: Surgical - low VTE Device Contraindication: Treatment Not Indicated VTE Drug Contraindication: N/A - Med Ordered (on eliquis) Procedures Date of Service Date of Service: 09/16/22
--- NOTE | 2022-09-16 10:03 | PM.OP ---
Brief Operative Note Date of Service: 09/16/22 Pre-op diagnosis: Left dislocated hip prosthesis Post-op diagnosis: same Procedure: Closed reduction left hip Surgeon: Jose Elizondo MD Anesthesia: GLMA Was an Automotive Brake Adjuster used for this Procedure?: Yes Automotive Brake Adjuster: William Garrison Estimated blood loss (mL): 0 IV fluids (mL): 500 Pathology: none sent Condition: stable Disposition: PACU
--- NOTE | 2022-09-16 10:50 | PC.NURSE ---
LATE NOTE PT DID HAVE ADDUCTOR BETWEEN LEGS
--- NOTE | 2022-09-16 10:57 | PC.NURSE ---
Alert with confusion. returned from pacu after closed reduction of the left hip. Immobilzer in place. sob sob noted. 100% on 2 liters. daily in pklace drainnig clear yellow urine. Oriented to self only.
--- NOTE | 2022-09-16 11:40 | PC.NURSE ---
Resting comfortably in bed. Satin g98% on RA with no sob noted. No complaints of any pain or discomfort. VSS.
--- NOTE | 2022-09-16 12:55 | PC.NURSE ---
Alert with confusion. Discharged via stretcher back to [facility]. Report called to floor. Patient report no pain
--- NOTE | 2022-09-18 10:05 | W.PM.OPN ---
Operative Note Operative Note Date of Service: 09/16/22 Narrative: Date of Service: 09/16/22 Pre-op diagnosis: Left dislocated hip prosthesis Post-op diagnosis: same Procedure: Closed reduction left hip Surgeon: Jose Elizondo MD Anesthesia: GLMA Was an Wound Nurse used for this Procedure?: Yes Wound Nurse: William Garrison Estimated blood loss (mL): 0 IV fluids (mL): 500 Pathology: none sent Condition: stable Disposition: PACU Indications: This is a 77 yo ~2 years s/p revision arthroplasty and several weeks s/p unknown revision surgery. He is unable to give a history and I spoke with his caregiver who could not specify any recent surgical details. Based on our records he underwent revision arthroplasty in 2019. He presented to our ED about one month ago with a dislocated prosthesis and was transferred to [facility] acutely without reducing the hip. He returns after having fallen out of bed? and found with a dislocated prosthesis and confused ( baseline). An unsuccessful attempt at closed reduction under conscious sedation was performed by the ED. Orthopaedics was then consulted and we agreed to attempt closed reduction in the OR. I spoke with the HCP and consent was given to proceed with closed reduction. On exam a freshly healed incision was noted with a hematoma. He was moving his toes and ankle but not following commands and his leg was internally rotated and shortened. Procedure in detail: Patient was brought to the operating room and placed supine on the surgical table. Atime out was called to identify proper site, proper procedure. Once he was anesthetized and paralyzed I applied firm steady axial traction with the hip flexed while my assistant professor of communication guided the hip into place with gentle pressure to the greater trochanter. Reduction was suspected andintra-operative imaging revealed a located hip. He was returned to the ED once he was awakened from sedation. There were no known complications. Patient was placed in an abduction pillow and will follow up with his orthopaedic provider at [facility].
== END 2022-09-16 08:02 ==
LOC: HO.ED 07:10 → HO.SSS 08:06
PROVIDERS: Emergency Medicine; Emergency Provider Emergency Medicine Emergency Medical Services; Visit Provider Orthopaedic Surgery
PROC: (CPT 27252; principal; 2022-09-16 09:00)
DX: T84.021A Dislocation of internal left hip prosthesis, initial encounter (principal); M25.552 Pain in left hip; Y79.2 Prosthetic and other implants, materials and accessory orthopedic devices associated with adverse incidents; S09.90XA Unspecified injury of head, initial encounter; W19.XXXA Unspecified fall, initial encounter; Y93.9 Activity, unspecified; Y92.129 Unspecified place in nursing home as the place of occurrence of the external cause; Y99.9 Unspecified external cause status; Z96.652 Presence of left artificial knee joint; I10 Essential (primary) hypertension; I48.0 Paroxysmal atrial fibrillation; G47.33 Obstructive sleep apnea (adult) (pediatric); D50.9 Iron deficiency anemia, unspecified; J45.909 Unspecified asthma, uncomplicated; K57.30 Diverticulosis of large intestine without perforation or abscess without bleeding; F41.8 Other specified anxiety disorders; F39 Unspecified mood [affective] disorder; R51.9 Headache, unspecified; R53.83 Other fatigue; R06.09 Other forms of dyspnea; K27.9 Peptic ulcer, site unspecified, unspecified as acute or chronic, without hemorrhage or perforation; Z86.711 Personal history of pulmonary embolism; Z79.01 Long term (current) use of anticoagulants; Z79.51 Long term (current) use of inhaled steroids; Z79.899 Other long term (current) drug therapy; Z88.8 Allergy status to other drugs, medicaments and biological substances; Z66 Do not resuscitate; Z85.46 Personal history of malignant neoplasm of prostate; Z92.3 Personal history of irradiation; Z87.891 Personal history of nicotine dependence; Z98.890 Other specified postprocedural states
CPT/HCPCS: 27252; 36415; 70450; 72125; 73501; 73700; 80048; 81003; 84484; 85025; 93005; 96372; 96374; 96375; 99285; J1170; J1200; J2060; J2405; J3010

== ENCOUNTER 2022-12-18 04:14 | Emergency (ER) | payer MEDICARE, SELFPAY ==
--- NOTE | ~2022-12-18 | XR_ITS ---
EXAMINATION: XR CHEST CLINICAL INFORMATION: Low oxygen saturation COMPARISON: 07/24/2022 TECHNIQUE: Frontal view of the chest was obtained. FINDINGS: The lungs are clear with no focal consolidation. No evidence of pneumothorax, pulmonary edema, or pleural effusions. Cardiac size is within normal limits. Calcification is present at the aortic arch. No acute osseous findings are seen. XR/XR chest 1V IMPRESSION: No acute cardiopulmonary findings.
--- NOTE | ~2022-12-18 | CT_ITS ---
EXAMINATION: CT HEAD WITHOUT CONTRAST CLINICAL INFORMATION: Confusion. Headache. COMPARISON: None available. TECHNIQUE: Contiguous axial imaging was performed from the skull base to vertex without intravenous administration of contrast. This CT examination was performed using dose optimization techniques as appropriate, variously including the following: *Automated exposure control *Adjustment of mA and/or kV according to patient size (this includes techniques or standardized protocols for targeted exams where dose is matched to indication/reason for exam; i.e. extremities or head) *Use of iterative reconstruction technique DLP: 776 mGy-cm FINDINGS: There is cerebral volume loss with prominence of the lateral and the third ventricles. The cortical sulci are widened appropriately. The fourth ventricle and basal cisterns are normally outlined. There is moderate bilateral periventricular and central white matter image attenuation. There is no acute territorial defect, hemorrhage or midline shift. Calvarium: Intact. Maxillofacial sinuses: Clear as visualized. CT/CT head/brain wo IV con IMPRESSION: 1. Cerebral volume loss and moderate bilateral periventricular and central white matter image attenuation which is nonspecific but likely to represent microvascular disease. 2. No acute intracranial abnormality.
[2022-12-18 04:24] VITALS: BP 118/62; PULSE 54; O2SAT 96; BMI 29.3
--- NOTE | 2022-12-18 04:26 | ECG_ITS ---
Test Reason : AMS Blood Pressure : / mmHG Vent. Rate : 055 BPM Atrial Rate : 055 BPM P-R Int : 186 ms QRS Dur : 082 ms QT Int : 448 ms P-R-T Axes : 000 041 062 degrees QTc Int : 428 ms Sinus bradycardia Possible Lateral infarct , age undetermined Abnormal ECG When compared with ECG of 16-SEP-2022 04:51, Vent. rate has decreased BY 37 BPM Referred By: Hollis Brody Electronically Signed By:ANNITA YANEZ
[2022-12-18 04:31] VITALS: BP 116/63; PULSE 85; RESP 17; O2SAT 98
--- NOTE | 2022-12-18 04:37 | MHC.EDTECH ---
EKG AND LABS ARE DELAYED DUE TO PATIENT IN IMAGING
--- NOTE | 2022-12-18 04:38 | ED.GENADULT ---
HPI - General Adult General Chief complaint: Altered Mental Status Stated complaint: confused behavior, low stat Time Seen by Provider: 12/18/22 04:26 Source: patient and EMS Mode of arrival: EMS Limitations: no limitations History of Present Illness HPI narrative: 77-year-old male came in by ambulance from [facility] patient woke up from sleeping confused, found to be hypoxic of 78% on room air, patient was placed on 6 L of nasal cannula, on EMS arrival patient is awake, alert, oriented, with normal breathing, and O2 saturation was normal. 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 Patient stated that for the past few days he wakes up at night with headache which is improved now, patient decline fever, chills, disorientation, chest pain, shortness of breath, abdominal pain, nausea, vomiting, or diarrhea. Patient now appears in no distress. Related Data Home Medications Medication Instructions Recorded Confirmed arjgmfttsy-czlqpsufpgcif-iokfhktl 1 tab PO BEDTIME PRN Migraine 10/20/20 08/21/22 50 mg-325 mg-40 mg tablet Headache lorazepam 1 mg tablet 1 tab PO BID 10/20/20 08/21/22 venlafaxine 150 mg 150 mg PO DAILY 04/17/21 08/21/22 capsule,extended release 24 hr fluticasone propionate 45 2 puff inhalation BID 12/14/21 08/21/22 mcg-salmeterol 21 mcg/actuation HFA inhaler (Advair HFA) cyanocobalamin (vitamin B-12) 1,000 mcg subcut QMONTH 06/09/22 08/21/22 1,000 mcg/mL injection solution fluticasone propionate 50 1 spray intranasal BID PRN Allergy 06/09/22 08/21/22 mcg/actuation nasal Symptoms spray,suspension latanoprost 0.005 % eye drops 1 drp ophthalmic (eye) BEDTIME 06/09/22 08/21/22 lorazepam 1 mg tablet 1 mg PO DAILY PRN Anxiety 06/09/22 08/21/22 omeprazole 40 mg capsule,delayed 40 mg PO DAILY@0630 06/09/22 08/21/22 release venlafaxine 37.5 mg 1 cap PO DAILY 06/09/22 08/21/22 capsule,extended release 24 hr vibegron 75 mg tablet (Gemtesa) 1 tab PO DAILY 06/09/22 08/21/22 divalproex 500 mg tablet,delayed 500 mg PO QPM 08/21/22 08/21/22 release Previous Rx's Medication Instructions Recorded syringe with needle, safety 3 mL #100 ea 06/02/21 25 gauge x 5/8 (BD Safety-Jackie Detachable Needle) fexofenadine 180 mg tablet 180 mg PO DAILY PRN allergy 08/10/21 symptoms #90 caps albuterol sulfate 90 mcg/actuation 2 puff inhalation Q6H PRN 12/22/21 aerosol inhaler (ProAir HFA) shortness of breath or wheezing #8.5 grams amlodipine 10 mg tablet 10 mg PO DAILY #90 caps 02/21/22 apixaban 5 mg tablet 5 mg PO BID 90 days #180 tabs 03/07/22 docusate sodium 100 mg capsule 100 mg PO BID #60 caps 06/17/22 (Colace) ferrous sulfate 325 mg (65 mg 325 mg PO DAILY #90 tabs 08/18/22 iron) tablet (Feosol) Allergies Allergy/AdvReac Type Severity Reaction Status Date / Time carisoprodol [From Soma] Allergy Mild MENTAL Verified 03/08/22 15:43 STATUS CHANGE, BECOMES AGGRESIVE codeine [Codeine] Allergy Mild STOMACH Verified 03/08/22 15:43 UPSET, RASH gabapentin AdvReac Intermediate lousy Verified 03/08/22 15:43 feeling Review of Systems Review of Systems: All other systems are reviewed and are negative Constitutional: Reports as per HPI and Reports no additional constitutional complaints Eyes: Reports as per HPI and Reports no additional eye complaints Reports system reviewed and no additional complaints, except as documented Cardiovascular: Reports as per HPI and Reports no additional cardiovascular complaints Respiratory: Reports as per HPI and Reports no additional respiratory complaints Gastrointestinal: Reports as per HPI and Reports no additional gastrointestinal complaints Genitourinary: Reports no additional female genitourinary complaints Musculoskeletal: Reports no additional musculoskeletal complaints Skin/Breast: Reports system reviewed and no additional complaints, except as docu Psychiatric: Reports no additional psychiatric complaints Endocrine: Reports no additional endocrine complaints Hematologic/Lymphatic: Reports no additional hematologic/lymphatic complaints Allergic/Immunologic: Reports no additional allergic/immunologic complaints Reports system reviewed and no additional complaints, except as documented and Reports Abnormal speech present FOR[facility]LY [facility] Past Medical History Medical History Allergic bronchitis Anxiety and depression Asthma exacerbation Atrial fibrillation Chest tightness Constipation Degenerative disc disease Diverticular disease Dyspnea on exertion Dysuria Fatigue Fatigue Generalized anxiety disorder GERD (gastroesophageal reflux disease) Gout Headache Hospital discharge follow-up Hypertension Iron deficiency anemia Knee fracture, left Leukocytosis Low vitamin D level Moderate recurrent major depression Obesity (BMI 30-39.9) Obstructive sleep apnea Peptic ulcer disease Premature atrial complexes Prostate cancer Rash Serum potassium elevated Shortness of breath SOB (shortness of breath) on exertion Tinea cruris Vitamin B12 deficiency Vitamin D deficiency Wedge compression fracture of L1 vertebra Surgical History H/O hernia repair H/O rectal polypectomy History of bowel resection History of cholecystectomy History of colonoscopy History of hemiarthroplasty of left hip History of knee replacement procedure of left knee History of pyloroplasty Family History Family History Father Diabetes Acute kidney failure Glaucoma Mother Lung cancer Social History Social History Household Members: None Housing: Apartment Do you presently have visiting nurse or other home services: No Alcohol intake: never Patient Tobacco Use Status: Former Tobacco user Quit Date: Tobacco use type: Cigar e-Cigarette/Vaping Use: Currently Using Second Hand Smoke Exposure: No Advance Directives Date on File: 07/03/22 service: No Current occupational status: retired Cognitive needs: No Hearing needs: Yes Vision needs: Yes Physical Exam ED Vital Signs: Vital Signs - 24 hr 12/18/22 04:31 Pulse Rate 85 Respiratory Rate 17 Blood Pressure 116/63 Pulse Oximetry 98 Oxygen Delivery Method Room Air BMI result Body Mass Index 29.3 Vital signs have been reviewed as appeared to be correct. Blood pressure normal. Heart rate normal. Respiration rate normal. Temperature normal. Oxygen saturation normal. Appearance: Alert. Oriented X3. No acute distress. Head: Normal external exam. Normocephalic. Atraumatic. No Hansen signs noted. No raccoon eyes noted Eyes: PERRLA. EOMI. Conjunctiva and sclera normal. Eyelids normal. ENT: TM's Normal. Pharynx normal. Uvula midline. Moist mucous membranes. No trismus noted. No drooling noted. No muffled voice noted. Neck: Normal inspection. Neck supple. FROM. No adenopathy. Thyroid Normal. No meningeal signs. No neck mass noted. CVS: Normal heart rate and rhythm. Heart sound normal. No murmurs noted. Pulses normal throughout. Respiratory: No respiratory distress. Painless inspiration. Breath sounds normal. No wheezes/rales/rhonchi noted. Chest nontender. No accessory muscle usage noted or decreased air movement noted. Abdomen: Soft and nontender. Ventral hernia, mesh wire is Nicholas rating the skin and palpable, but nontender, no sign of cellulitis. Bowel sounds normal in all 4 quadrants. No distention noted. No organomegaly noted. No visible injury noted. Back: No CVA tenderness. Full range of motion noted. Skin: Skin warm and dry. Normal skin color. Normal skin turgor. No rashes/lesions/lacerations noted. Extremities: No lower extremity edema. Extremities exhibit normal range of motion. Extremities nontender. Neuro: Oriented X 3. Cranial nerve exam: II-XII are grossly intact No motor deficit. No sensory deficit. Reflexes normal. Course Course Course Narrative: 77-year-old male came in from rehab for mental status change when he woke up last night, for the last few days patient wakes up at night with headache, patient stated that he does not sleep well at the rehab, patient's exam is AAO x3, no confusion or disorientation Patient was monitored in the emergency department showing no hypoxia, no shortness of breath, no chest pain, no abdominal pain, no nausea, no vomiting. Accidental finding on the physical exam ventral hernia mesh is slightly protruding from the abdominal wall with no symptoms will refer the patient to surgery. Repeat neuro exam is grossly intact with negative head CT. Medical Decision Making Differential Diagnosis Differential Diagnoses: The differential diagnosis associated with the presentation includes (Intracranial pathology, CVA, pneumonia, pneumothorax, ACS, UTI, severe anemia, electrolyte abnormality, complicated hernia mesh.) Admission/Observation Consideration of admission/observation: Escalation of care including admission/observation considered Lab Data MDM Lab Attestation statement: I reviewed the patient's lab results. 12/18/22 04:56 12/18/22 04:56 Labs: Lab Results 12/18/22 12/18/22 12/18/22 Range/Units 04:56 04:56 04:56 WBC 7.0 (4.8-10.8) X10*3/uL RBC 3.62 L (4.60-5.80) X10*6/uL Hgb 9.3 L (14.0-18.0) g/dl Hct 30.5 L (42.0-52.0) % MCV 84.3 (80.0-98.0) fL MCH 25.7 L (27.0-33.0) pg MCHC 30.5 L (31.0-36.0) g/dl RDW 16.8 H (11.0-16.0) % Plt Count 301 (160-400) X10*3/uL MPV 9.3 L (9.4-12.4) fL Immature Gran % (Auto) 0.3 (0.0-0.4) % Neut % (Auto) 39.7 L (45-73) % Lymph % (Auto) 44.1 H (20-40) % [place] % (Auto) 11.0 (2-11) % Eos % (Auto) 3.9 (0-4) % Baso % (Auto) 1.0 (0-2) % Lymph # (Auto) 3.1 (1.2-4.9) X10*3/uL [place] # (Auto) 0.8 (0.1-1.2) X10*3/uL Eos # (Auto) 0.3 (0.0-0.4) X10*3/uL Baso # (Auto) 0.1 (0.0-0.2) X10*3/uL Abs Immat Gran (auto) 0.02 (0.00-0.03) X10*3/uL Absolute Neuts (auto) 2.8 (2.0-8.3) x10*3/uL Absolute Nucleated RBC 0.000 (0.0-0.012) X10*3/uL Nucleated RBC % (auto) 0.0 (0.0-0.2) /100WBC Sodium 138 (135-145) mmol/L Potassium 4.5 (3.3-5.1) mmol/L Chloride 104 (96-108) mmol/L Carbon Dioxide 28 (22-29) mmol/L Anion Gap 11 L (12-20) BUN 13 (9-16) mg/dL Creatinine 0.82 (0.5-1.4) mg/dL Estim Creat Clear Calc 66.9 Estimated GFR > 60 Random Glucose 91 (60-115) mg/dL Calcium 8.9 (8.4-10.2) mg/dL Total Bilirubin 0.3 (0.0-1.0) mg/dL Direct Bilirubin 0.1 (0.0-0.5) mg/dL AST 11 (5-37) U/L ALT < 5 (0-40) U/L Alkaline Phosphatase 105 (39-117) U/L Troponin I High Sens < 2.7 (<3.5-35.0) ng/L Total Protein 6.9 (6.5-8.0) g/dL Albumin 3.2 L (3.5-5.0) g/dL Lipase 4 L (8-78) U/L Urine Color Urine Appearance Urine pH (5.0-9.0) Ur Specific [place] (1.005-1.025) Urine Protein (Neg-Trace) mg/dL Urine Glucose (UA) (Negative) mg/dL Urine Ketones (Negative) mg/dL Urine Blood (Negative) Urine Nitrite (Negative) Ur Leukocyte Esterase (Negative) 12/18/22 Range/Units 05:42 WBC (4.8-10.8) X10*3/uL RBC (4.60-5.80) X10*6/uL Hgb (14.0-18.0) g/dl Hct (42.0-52.0) % MCV (80.0-98.0) fL MCH (27.0-33.0) pg MCHC (31.0-36.0) g/dl RDW (11.0-16.0) % Plt Count (160-400) X10*3/uL MPV (9.4-12.4) fL Immature Gran % (Auto) (0.0-0.4) % Neut % (Auto) (45-73) % Lymph % (Auto) (20-40) % [place] % (Auto) (2-11) % Eos % (Auto) (0-4) % Baso % (Auto) (0-2) % Lymph # (Auto) (1.2-4.9) X10*3/uL [place] # (Auto) (0.1-1.2) X10*3/uL Eos # (Auto) (0.0-0.4) X10*3/uL Baso # (Auto) (0.0-0.2) X10*3/uL Abs Immat Gran (auto) (0.00-0.03) X10*3/uL Absolute Neuts (auto) (2.0-8.3) x10*3/uL Absolute Nucleated RBC (0.0-0.012) X10*3/uL Nucleated RBC % (auto) (0.0-0.2) /100WBC Sodium (135-145) mmol/L Potassium (3.3-5.1) mmol/L Chloride (96-108) mmol/L Carbon Dioxide (22-29) mmol/L Anion Gap (12-20) BUN (9-16) mg/dL Creatinine (0.5-1.4) mg/dL Estim Creat Clear Calc Estimated GFR Random Glucose (60-115) mg/dL Calcium (8.4-10.2) mg/dL Total Bilirubin (0.0-1.0) mg/dL Direct Bilirubin (0.0-0.5) mg/dL AST (5-37) U/L ALT (0-40) U/L Alkaline Phosphatase (39-117) U/L Troponin I High Sens (<3.5-35.0) ng/L Total Protein (6.5-8.0) g/dL Albumin (3.5-5.0) g/dL Lipase (8-78) U/L Urine Color Yellow Urine Appearance Clear Urine pH 6.0 (5.0-9.0) Ur Specific [place] 1.010 (1.005-1.025) Urine Protein Negative (Neg-Trace) mg/dL Urine Glucose (UA) Negative (Negative) mg/dL Urine Ketones Negative (Negative) mg/dL Urine Blood Negative (Negative) Urine Nitrite Negative (Negative) Ur Leukocyte Esterase Negative (Negative) Independent Interpretation I performed an independent interpretation of an: Plain X-Ray (Chest: No acute cardiopulmonary findings.) and CT Scan (Head: No acute intrathoracic pathology.) Radiology Impression Discussion of test interpretation with radiology: I have reviewed the radiologist's reading. Discharge Plan Discharge Clinical Impression: Altered mental status, Ventral hernia, Hypoxia Patient Disposition: Xfer [facility] Instructions: Altered Mental Status (ED), Ventral Hernia (ED) Prescriptions: No Action (DME) BD Safety-Jackie Detachable Needl 3 mL 25 gauge x 5/8 syringe See Rx Instructions .ROUTE .MEDSUPPLY Qty: 100 12RF Rx Instructions: As directed fexofenadine 180 mg tablet 180 mg PO DAILY PRN (Reason: allergy symptoms) Qty: 90 3RF albuterol sulfate [ProAir HFA] 90 mcg/actuation HFA aerosol inhaler 2 puff inhalation Q6H PRN (Reason: shortness of breath or wheezing) Qty: 8.5 0RF amlodipine 10 mg tablet 10 mg PO DAILY Qty: 90 2RF apixaban 5 mg tablet 5 mg PO BID 90 Days Qty: 180 2RF ferrous sulfate [Feosol] 325 mg (65 mg iron) tablet 325 mg PO DAILY Qty: 90 2RF hyfsqxcxop-ochfyqzxkjpqb-mpwr 50-325-40 mg tablet 1 tab PO BEDTIME PRN (Reason: Migraine Headache) lorazepam 1 mg tablet 1 tab PO BID venlafaxine 150 mg capsule,extended release 24hr 150 mg PO DAILY Rx Instructions: take with 37.5mg for total dose of 187.5mg venlafaxine 37.5 mg capsule,extended release 24hr 1 cap PO DAILY Rx Instructions: take with 150mg for total dose of 187.5mg latanoprost 0.005 % drops 1 drp ophthalmic (eye) BEDTIME lorazepam 1 mg tablet 1 mg PO DAILY PRN (Reason: Anxiety) fluticasone propionate 50 mcg/actuation spray,suspension 1 spray intranasal BID PRN (Reason: Allergy Symptoms) Rx Instructions: instill one spray into each nostril Gemtesa 75 mg tablet 1 tab PO DAILY omeprazole 40 mg capsule,delayed release(DR/EC) 40 mg PO DAILY@0630 cyanocobalamin (vitamin B-12) 1,000 mcg/mL solution 1,000 mcg subcut QMONTH docusate sodium [Colace] 100 mg capsule 100 mg PO BID Qty: 60 2RF divalproex 500 mg tablet,delayed release (DR/EC) 500 mg PO QPM Advair HFA 45-21 mcg/actuation HFA aerosol inhaler 2 puff inhalation BID Referrals: Francisco Guerrero MD [Physician] -
[2022-12-18 05:00] LABS: MANUAL DIFF FLAG NO
[2022-12-18 05:01] LABS: Basophils Absolute Auto 0.1 X10*3/uL (0.0-0.2); Eosinophils Absolute Auto 0.3 X10*3/uL (0.0-0.4); Eosinophils Percent Auto 3.9 % (0-4); Hematocrit 30.5 % (42.0-52.0); Hemoglobin 9.3 g/dl (14.0-18.0); Imm Gran Abs Auto 0.02 X10*3/uL (0.00-0.03); Imm Gran Pct Auto 0.3 % (0.0-0.4); Lymphocytes Absolute Auto 3.1 X10*3/uL (1.2-4.9); Lymphocytes Percent Auto 44.1 % (20-40); Mean Corpuscular HGB Conc 30.5 g/dl (31.0-36.0); Mean Corpuscular Hemoglobin 25.7 pg (27.0-33.0); Mean Corpuscular Volume 84.3 fL (80.0-98.0); Mean Platelet Volume 9.3 fL (9.4-12.4); Monocytes Absolute Auto 0.8 X10*3/uL (0.1-1.2); Neutrophils Absolute Auto 2.8 x10*3/uL (2.0-8.3); Neutrophils Percent Auto 39.7 % (45-73); Platelet Count 301 X10*3/uL (160-400); Red Blood Count 3.62 X10*6/uL (4.60-5.80); Red Cell Distribution Width 16.8 % (11.0-16.0)
[2022-12-18 05:17] LABS: Alanine Aminotransferase < 5 U/L (0-40); Albumin Level 3.2 g/dL (3.5-5.0); Alkaline Phosphatase 105 U/L (39-117); Anion Gap 11 (12-20); Aspartate Amino Transferase 11 U/L (5-37); Bilirubin Direct 0.1 mg/dL (0.0-0.5); Bilirubin Total 0.3 mg/dL (0.0-1.0); Blood Urea Nitrogen 13 mg/dL (9-16); Calcium 8.9 mg/dL (8.4-10.2); Carbon Dioxide 28 mmol/L (22-29); Chloride 104 mmol/L (96-108); Creatinine Clr Calc Pharmacy 66.9; Estimated Glomerular Filt Rate > 60; Glucose Random 91 mg/dL (60-115); Lipase 4 U/L (8-78); Potassium 4.5 mmol/L (3.3-5.1); Sodium 138 mmol/L (135-145); Total Protein 6.9 g/dL (6.5-8.0)
[2022-12-18 05:21] LABS: Troponin-I High Sensitivity < 2.7 ng/L (<3.5-35.0)
[2022-12-18 05:53] LABS: Appearance Urine Clear; Color Urine Yellow; Glucose Urine UA Negative (Negative); Leukocyte Esterase Urine Negative (Negative); Nitrite Urine Negative (Negative); Urine Blood Negative (Negative); Urine Ketones Negative (Negative); Urine Protein Negative (Neg-Trace)
--- NOTE | 2022-12-18 06:40 | MHC.EDTECH ---
[facility] at 0640 [facility] estimated eta given was 0715
[2022-12-18 06:48] VITALS: RESP 18
[2022-12-18 07:07] VITALS: BP 118/76; PULSE 54; RESP 20; TEMP 36.6; O2SAT 99
--- NOTE | 2022-12-18 07:38 | PC.NURSE ---
report given to [facility] care nurse.
== END 2022-12-18 09:48 | disposition skilled nursing facility (03) ==
PROVIDERS: Emergency Provider Emergency Medicine
DX: R41.82 Altered mental status, unspecified (principal); K43.9 Ventral hernia without obstruction or gangrene; R09.02 Hypoxemia; I10 Essential (primary) hypertension; I48.91 Unspecified atrial fibrillation; D50.9 Iron deficiency anemia, unspecified; Z86.711 Personal history of pulmonary embolism; Z79.01 Long term (current) use of anticoagulants; Z79.899 Other long term (current) drug therapy
CPT/HCPCS: 36415; 70450; 71045; 80048; 80076; 81003; 83690; 84484; 85025; 93005; 99284; 99285

== ENCOUNTER 2022-12-27 14:11 | Outpatient (AMB) | payer MEDICARE, SELFPAY ==
--- NOTE | 2022-12-27 14:15 | A.OFFVIS_ITS ---
Intake Vital Signs 12/27/22 14:25 Height 5 ft 2 in Weight 199 lb BMI 36.4 BP 88/54 L Blood Pressure Location Rt brachial Position Sitting Pulse 158 H Intake Visit Reasons: ventral hernia Intake Note: Patient c/o bump mid abd. Reports bump grew after previous surgery. C/o pain, tenderness. Denies bleeding or oozing. 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 Accompanied by: Other Relationship Friend Yg Allergies carisoprodol [From Soma] Allergy (Mild, Verified 12/27/22 14:27) MENTAL STATUS CHANGE, BECOMES AGGRESIVE codeine [Codeine] Allergy (Mild, Verified 12/27/22 14:27) STOMACH UPSET, RASH gabapentin Adverse Reaction (Intermediate, Verified 12/27/22 14:27) lousy feeling Medication List - Last Reconciled 12/27/22 by Francisco Guerrero MD albuterol sulfate 90 mcg/actuation (ProAir HFA) 2 puffs inhalation Q6H PRN amlodipine 10 mg PO DAILY apixaban 5 mg PO BID 90 days cxeyfajnqx-oniyhwukknnqn-nzve 50-325-40 mg 1 tab PO BEDTIME PRN cyanocobalamin (vitamin B-12) 1,000 mcg subcut QMONTH divalproex 500 mg PO QPM docusate sodium (Colace) 100 mg PO BID ferrous sulfate (Feosol) 325 mg PO DAILY fexofenadine 180 mg PO DAILY PRN fluticasone propion-salmeterol 45-21 mcg/actuation (Advair HFA) 2 puffs inhalation BID fluticasone propionate 50 mcg/actuation 1 spray intranasal BID PRN latanoprost 0.005% 1 drp ophthalmic (eye) BEDTIME lorazepam 1 tab PO BID lorazepam 1 mg PO DAILY PRN omeprazole 40 mg PO DAILY@0630 syringe with needle, safety (BD Safety-Jackie Detachable Needle) As directed venlafaxine ER 1 cap PO DAILY venlafaxine ER 150 mg PO DAILY vibegron (Gemtesa) 1 tab PO DAILY HPI ventral hernia HPI Details 77-year-old male referred for a ventral hernia. He had undergone emergency laparotomy, and lysis of adhesions for small-bowel obstruction with Dr. Dominguez last May,. He was in the hospital for prolonged period of time at that time because of slow recovery He has been in prison. In the interim, he had undergone hip surgery because of recurrent dislocation. He has difficulty with mobility. He was sent to the office because of hernia on his laparotomy incision. He does state that this does not bother him. He has noticed this lump for several months now. He has good GI function. He denies any problems with oral intake nor any nausea or vomiting. He has good bowel movements He does state that what bothers him is a stitch that protrudes on the old incision. [facility] Medical History (Updated 12/27/22 @ 14:48 by Francisco Guerrero MD) Allergic bronchitis Anxiety and depression Asthma exacerbation Atrial fibrillation Chest tightness Constipation Degenerative disc disease Diverticular disease Dyspnea on exertion Dysuria Fatigue Fatigue Generalized anxiety disorder GERD (gastroesophageal reflux disease) Gout Headache Hospital discharge follow-up Hypertension Incisional hernia Iron deficiency anemia Knee fracture, left Leukocytosis Low vitamin D level Moderate recurrent major depression Obesity (BMI 30-39.9) Obstructive sleep apnea Peptic ulcer disease Premature atrial complexes Prostate cancer Rash Serum potassium elevated Shortness of breath SOB (shortness of breath) on exertion Tinea cruris Vitamin B12 deficiency Vitamin D deficiency Wedge compression fracture of L1 vertebra Surgical History H/O hernia repair H/O rectal polypectomy History of bowel resection History of cholecystectomy History of colonoscopy History of hemiarthroplasty of left hip History of knee replacement procedure of left knee History of pyloroplasty Family History Father Diabetes Acute kidney failure Glaucoma Mother Lung cancer Social History Household Members: None Housing: Apartment Do you presently have visiting nurse or other home services: No Alcohol intake: never Patient Tobacco Use Status: Former Tobacco user Quit Date: Tobacco use type: Cigar e-Cigarette/Vaping Use: Currently Using Second Hand Smoke Exposure: No Advance Directives Date on File: 07/03/22 service: No Current occupational status: retired Cognitive needs: No Hearing needs: Yes Vision needs: Yes Review of Systems Const Denies chills and Denies fever(s) Card Denies chest pain, Denies dyspnea and Reports dyspnea on exertion Resp Denies cough, Denies dyspnea and Reports dyspnea on exertion GI Denies hematochezia and Denies change in bowel habits Denies hematuria and Denies difficulty urinating Musc Reports abnormal gait, Reports back pain, Reports atrophy, Reports arthralgias and Reports limited range of motion Neuro Reports abnormal gait, Denies focal weakness and Denies convulsions Psych Denies depression and Denies mood swings Physical Exam Vital Signs: Last Vital Signs Pulse 158 H 12/27/22 14:25 BP 88/54 L 12/27/22 14:25 BMI result Body Mass Index 36.4 Const Other: Frail looking, on a wheelchair, has difficulty with standing up and ambulating with significant leg length discrepancy General: comfortable and no acute distress Orientation/consciousness: patient oriented x3 Neck Neck: Yes no lymphadenopathy Resp Auscultation: clear to auscultation bilaterally Cardio Rhythm: regular rhythm GI Other: Large hernia on the midline laparotomy incision, about at least 9 cm, nontender, 1 nylon stitch protruding on the skin, hernia defect well-defined Palpation (GI): Soft to palpation, nontender and no guarding Neuro General: patient oriented x3 Extrem Other: Significant leg length discrepancy Assessment & Plan Assessment & Plan (1) Incisional hernia: Code(s): K43.2 - Incisional hernia without obstruction or gangrene Plan: He has a large incisional hernia as described above from his laparotomy last May,. He does state that this had multiple hernias in the past from previous surgeries on his abdomen. He said that he had multiple repairs as well including a mesh He does not want any repair for this. He says that this does not bother him and he denies any pain or discomfort. He has good GI function I trimmed the protruding nylon stitch on his old incision as he says that this is what bothers him. He appears very frail and has difficulty standing up and ambulating. He can follow up on a p.r.n. basis. Coding Level of Care Code Est Pt Level 3 (07025) Diagnoses Incisional hernia K43.2
[2022-12-27 14:25] VITALS: BP 88/54; PULSE 158; BMI 36.4
== END 2022-12-27 14:54 | disposition home or self-care (01) ==
PROVIDERS: Visit Provider Surgery
DX: K43.2 Incisional hernia without obstruction or gangrene (principal)
CPT/HCPCS: 99213

== ENCOUNTER → 2022-12-27 14:11 | Outpatient (BNVA) | payer MEDICARE, SELFPAY | PROVIDERS: Visit Provider Surgery | DX: K43.2 Incisional hernia without obstruction or gangrene (principal) | CPT/HCPCS: 99212 ==

== ENCOUNTER 2023-03-18 13:09 | Outpatient (REF) | payer MEDICARE, SELFPAY ==
--- NOTE | 2023-03-18 15:59 | MHC.AU.HA1 ---
Hearing Aid Evaluation Date of Visit: 03/18/23 Historical Information: Description of Hearing: Mild sloping to severe sensorineural hearing loss Summary: Ottoniel is experiencing trouble hearing in most environments, and sometimes doesn't hear people are speaking at all. He has tried TV order devices, lost many, and generally found them unsatisfactory. Selected Real 2 miniRITE R in chroma beige. Return for fitting. Hearing Aid Prescription: Based on the individual?s shared listening needs, communication environments, dexterity, desire for connectivity, and personal preferences, the following prescription for amplification has been made: Right ear: Make, Model, Color: Real 2 miniRITE R chroma beige Battery Size: Rechargeable Industrial Maintenance Mechanic/Slim Tube: 2 85 Type of Earmold/Dome/CShell/SlimTip: 8mm double olvera Left ear: Make, Model, Color: Real 2 miniRITE R chroma beige Battery Size: Rechargeable Industrial Maintenance Mechanic/Slim Tube: 2 85 Type of Earmold/Dome/CShell/SlimTip: 8mm double olvera Plan of Care: Patient wishes to purchase hearing aids as prescribed Action Taken/Action Needed: Medical Clearance to be requested from PCP/ENT Hearing Instrument Fitting to be scheduled when materials arrive Comments: Primary Diagnosis: H90.3 Bilateral Sensorineural Hearing Loss Signature: Provider: Génesis Borja, CCC-A
--- NOTE | 2023-03-19 08:09 | MHC.AU.MED ---
Medical Clearance for Hearing Instrumentation Date: 03/18/23 Patient Name: Ottoniel Salas Date of : 1945 Primary Care Provider: Referring Provider: Thania Almaraz MD We have seen your patient on 03/19/23 and have determined that they are a candidate for amplification (See accompanying report). Specifically, they would benefit from: Hearing aid use in both ears There is a statute that addresses Medical Evaluation Requirements prior to fitting a patient with a hearing aid. According to [place] statute 265 CMR:6.03(1), (a) General. Except as provided in 265 CMR 6.03(1)(b), a licensing specialist shall not sell a hearing aid unless the prospective user has presented to the licensing specialist a written statement signed by a licensed physician that states that the patient's hearing loss has been medically evaluated and the patient may be considered a candidate for a hearing aid. The medical evaluation must have taken place within the preceding six months. Please note: Due to the [place] Statute referenced above, we cannot accept a signature other than that of a licensed physician. SLASHER TENDER and PA signatures cannot be accepted. I am in agreement with the above recommendation. There is no medical contraindication for hearing instrumentation. Physician Signature Date Physician Name (Printed)
== END 2023-03-18 13:10 | disposition home or self-care (01) ==
LOC: HO.SH 13:09
PROVIDERS: Visit Provider Internal Medicine
DX: Z01.118 Encounter for examination of ears and hearing with other abnormal findings (principal); H90.3 Sensorineural hearing loss, bilateral
CPT/HCPCS: 92557

== ENCOUNTER 2023-03-18 15:56 | Outpatient (REF) | payer SELFPAY | END 2023-03-18 15:57 | disposition home or self-care (01) | LOC: HO.HAP 15:56 | PROVIDERS: Visit Provider Internal Medicine | DX: Z46.1 Encounter for fitting and adjustment of hearing aid (principal) | CPT/HCPCS: 92591 ==

== ENCOUNTER 2023-04-11 12:42 | Outpatient (REF) | payer SELFPAY ==
--- NOTE | 2023-04-12 08:15 | MHC.AU.HA2 ---
Hearing Instrument Fitting- Adult- Binaural Date of Visit: 04/11/23 Artificial Foliage Arranger Used: Hearing Instruments Dispensed: Right Ear: Make, Model, Color, Serial Number: Real 2 miniRITE R chroma beige SN [id number] Associate Store Manager Repair Warranty: 04/17/2026 Associate Store Manager Loss and Damage Warranty: 04/17/2026 [facility] Service Plan: Battery Size: Rechargeable Fisher Trawl Line/Slim Tube: 2 85 Earmold/Dome/CShell/SlimTip: 10mm double olvera Type of Wax Guard: ProWax MiniFit Left Ear: Make, Model, Color, Serial Number: Real 2 miniRITE R chroma beige [id number] Associate Store Manager Repair Warranty: 04/17/2026 Associate Store Manager Loss and Damage Warranty: 04/17/2026 [facility] Service Plan: Battery Size: Rechargeable Fisher Trawl Line/Slim Tube: 2 85 Earmold/Dome/CShell/SlimTip: 10mm double olvera Type of Wax Guard: ProWax MiniFit Accessories/Assistive Technology: Keying Machine Operator SN [id number] ConnectLine TV3 SN [id number] Warranty: 04/17/2024 Summary of Fitting: Ottoniel visited for fitting with Real 2 miniRITE R. He has worn hearing aids in the past which were BTE slim tubes with disposable batteries. Reviewed basic cleaning, care, biotechnologist use. Programmed and verified to NAL-NL2 targets. He responded well to amplification in the office. He does not have a smartphone to pair with his hearing aids. Received promotional TV streamer, which we planned to review at follow up. At the very end of the appointment, Ottoniel's friend commented that he is waiting to get approved for coverage through [employer] and they wanted to know if he would be eligible for hearing aid coverage. Discussed options of proceeding with private pay fitting today versus waiting for [facility] approval and checking eligibility for aids. Ottoniel elected to wait; he understands the $350 is nonrefundable. Aids to be RFC to [employer]. Ottoniel will call us when he is approved for [facility] so we can verify eligibility and move forward. Recommendations: Recommendations (Other): Ottoniel will call our clinic when his insurance is updated to verify eligibility. 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
== END 2023-04-11 12:43 | disposition home or self-care (01) ==
LOC: HO.HAP 12:42
PROVIDERS: Visit Provider Internal Medicine
DX: Z13.89 Encounter for screening for other disorder (principal)

== ENCOUNTER 2023-06-07 13:30 | Outpatient (REF) | payer MEDICARE, MEDICAID, SELFPAY ==
--- NOTE | 2023-06-10 10:14 | MHC.AU.HA2 ---
Hearing Instrument Fitting- Adult- Binaural Date of Visit: 06/07/23 Hearing Instruments Dispensed: Right Ear: Make, Model, Color, Serial Number: Real 2 miniRITE R chroma beige [id number] Clean Out Driller Helper Repair Warranty: 07/03/2026 Clean Out Driller Helper Loss and Damage Warranty: 07/03/2026 [facility] Service Plan: 06/07/24 Battery Size: Rechargeable Security Incident Response Engineer/Slim Tube: 2 85 Earmold/Dome/CShell/SlimTip: 8mm double olvera Type of Wax Guard: ProWax MiniFit Left Ear: Make, Model, Color, Serial Number: Real 2 miniRITE R chroma beige [id number] Clean Out Driller Helper Repair Warranty: 07/03/2026 Clean Out Driller Helper Loss and Damage Warranty: 07/03/2026 [facility] Service Plan: 06/07/24 Battery Size: Rechargeable Security Incident Response Engineer/Slim Tube: 2 85 Earmold/Dome/CShell/SlimTip: 8mm double olvera Type of Wax Guard: ProWax MiniFit Accessories/Assistive Technology: [employer] minirite educational adviser [id number] Warranty 07/03/2026 Summary of Fitting: Ottoniel visited for fitting with [employer] Real 2 miniRITE Rs. He was previously fit with these prior to today but did not leave with them as he realized he was about to be active with [employer]. Programmed to previous settings and made further adjustments for better audibility. Reviewed basics of use, cleaning, care, educational adviser. VC disabled per pt preference. Follow up scheduled for 2-3 weeks. Recommendations: Recommendations: A hearing instrument follow-up is recommended in 2-3 weeks. 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
== END 2023-06-07 13:31 | disposition home or self-care (01) ==
LOC: HO.HAP 13:30
PROVIDERS: Visit Provider Internal Medicine
DX: Z46.1 Encounter for fitting and adjustment of hearing aid (principal); H90.3 Sensorineural hearing loss, bilateral
CPT/HCPCS: V5011; V5020; V5160; V5261

== ENCOUNTER 2023-06-28 13:47 | Outpatient (REF) | payer MEDICARE, MEDICAID, SELFPAY | END 2023-06-28 13:48 | disposition home or self-care (01) | LOC: HO.HAP 13:47 | PROVIDERS: Visit Provider Internal Medicine | DX: Z13.89 Encounter for screening for other disorder (principal) ==

== ENCOUNTER 2023-09-28 19:25 | Emergency (ER) | payer MEDICARE, MEDICAID, SELFPAY ==
--- NOTE | ~2023-09-28 | XR_ITS ---
EXAMINATION: XR CHEST CLINICAL INFORMATION: Pain from fall. COMPARISON: Chest radiograph dated 12/18/2022. TECHNIQUE: Frontal view of the chest was obtained. FINDINGS: The patient is rotated. Cardiomediastinal silhouette appears similar to that seen on the chest radiograph dated 12/18/2022 when differences in technique are accounted for. The lungs are clear. No pleural effusion. No pneumothorax. No acute osseous abnormality. There are surgical clips overlying the upper mid abdomen. XR/XR chest 1V IMPRESSION: No acute cardiopulmonary disease.
--- NOTE | ~2023-09-28 | XR_ITS ---
EXAMINATION: XR HIP, LEFT XR KNEE, LEFT CLINICAL INFORMATION: Pain from fall. COMPARISON: Left hip radiograph dated 09/16/2022 and left knee radiograph dated 05/24/2018 TECHNIQUE: AP and crosstable lateral views of the left hip. AP view of the pelvis. AP and lateral views of the left knee. FINDINGS: The acetabular cup and femoral stem component of the left total hip arthroplasty appear appropriately aligned. The femoral neck and femoral head component of the left total hip prosthesis are absent with proximal migration of the left femur. Bones are osteopenic. No acute fractures are identified in the pelvis and left hip. 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 Degenerative disc disease is present in the lower lumbar spine. Numerous brachytherapy seeds are present at the expected location of the prostate. Atherosclerotic calcifications are present in the pelvis and around the left proximal femur. Left total knee prosthesis appears appropriately positioned without appreciable periprosthetic fracture. No joint effusion. Bones there is increased osseous lucency around the posterior flange of the femoral component, potentially due to new osteolysis. Bones are osteopenic at the knee. XR/XR hip LT min 2V IMPRESSION: 1. No acute fractures are identified in the pelvis, left hip, and left knee. 2. Absence of the femoral head and neck components of the left total hip prosthesis with proximal migration of the left femur. 3. Increased osseous lucency around the posterior flange of the femoral component of the left total knee prosthesis, potentially due to new osteolysis.
--- NOTE | ~2023-09-28 | CT_ITS ---
EXAMINATION: HEAD CT WITHOUT CONTRAST CERVICAL SPINE CT WITHOUT CONTRAST CLINICAL INFORMATION: Fall. Head strike. COMPARISON: 09/16/2022 TECHNIQUE: Contiguous axial imaging of the head was performed without the administration of IV contrast. Axial multidetector volumetric images were also performed through the cervical spine without intravenous contrast. Multiplanar reconstructed images in coronal and sagittal orientations were submitted. This CT examination was performed using dose optimization techniques as appropriate, variously including the following: *Automated exposure control *Adjustment of mA and/or kV according to patient size (this includes techniques or standardized protocols for targeted exams where dose is matched to indication/reason for exam; i.e. extremities or head) *Use of iterative reconstruction technique DOSE: 05/02/2078 mGy-cm FINDINGS: HEAD: There is no evidence of acute intracranial hemorrhage or territorial infarction. No abnormal mass-effect or midline shift. No extra-axial fluid collections. Valentin to white matter differentiation is well preserved. Mild enlargement of the ventricles, sulci, and extra-axial CSF spaces is indicative of parenchymal volume loss. Multiple areas of hypoattenuation in the subcortical and periventricular white matter are most consistent with chronic microangiopathic changes. Calcific atherosclerosis is present within the cavernous segments of the internal carotid arteries. The soft tissues and osseous structures are normal. The sinuses and mastoid air cells are clear. CERVICAL SPINE: Superior endplate compression deformity at T1 is again noted anteriorly with approximately 45 percent loss of vertebral body height, not significantly changed as compared to prior. Vertebral body heights are otherwise normal. No fractures of the vertebral bodies or posterior elements. Vertebral alignment is normal. No subluxation. Degenerative osteophytes and sclerosis are present at the atlantodental articulation, though normal alignment is maintained. Craniocervical junction is normal. Moderate multilevel degenerative disc disease is most notable at C5-C6 and C6-C7. Facet arthropathy is most pronounced on the right at C2-C3 and on the left at C2 to C3, C3-C4, and C4-C5. Posterior disc osteophyte complexes indent the ventral thecal sac. No critical stenoses are identified. There is marked neural foraminal encroachment on the left at C3-C4 and C4-C5 degenerative uncovertebral and facet osteophytes and on the right and C3-C4 and C6-C7. No significant paravertebral soft tissue swelling. Atherosclerotic calcifications are present in the carotid arteries. Imaged portions of the lung apices are clear. CT/CT cervical spine wo IV con IMPRESSION: 1. No acute intracranial pathology. 2. No acute fracture or malalignment in the cervical spine. 3. Chronic superior endplate compression deformity at T1, unchanged. 4. Moderate multilevel degenerative spondylosis in the cervical spine with neural foraminal encroachment on the left at C3-C4 and C4-C5 and on the right at C3-C4 and C6-C7.
--- NOTE | ~2023-09-28 | XR_ITS ---
EXAMINATION: XR HIP, LEFT XR KNEE, LEFT CLINICAL INFORMATION: Pain from fall. COMPARISON: Left hip radiograph dated 09/16/2022 and left knee radiograph dated 05/24/2018 TECHNIQUE: AP and crosstable lateral views of the left hip. AP view of the pelvis. AP and lateral views of the left knee. FINDINGS: The acetabular cup and femoral stem component of the left total hip arthroplasty appear appropriately aligned. The femoral neck and femoral head component of the left total hip prosthesis are absent with proximal migration of the left femur. Bones are osteopenic. No acute fractures are identified in the pelvis and left hip. 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 Degenerative disc disease is present in the lower lumbar spine. Numerous brachytherapy seeds are present at the expected location of the prostate. Atherosclerotic calcifications are present in the pelvis and around the left proximal femur. Left total knee prosthesis appears appropriately positioned without appreciable periprosthetic fracture. No joint effusion. Bones there is increased osseous lucency around the posterior flange of the femoral component, potentially due to new osteolysis. Bones are osteopenic at the knee. XR/XR knee LT 2V IMPRESSION: 1. No acute fractures are identified in the pelvis, left hip, and left knee. 2. Absence of the femoral head and neck components of the left total hip prosthesis with proximal migration of the left femur. 3. Increased osseous lucency around the posterior flange of the femoral component of the left total knee prosthesis, potentially due to new osteolysis.
[2023-09-28 19:45] VITALS: BP 106/74; BP 98/65; PULSE 104; RESP 16; O2SAT 94; BMI 31.2
--- NOTE | 2023-09-28 20:51 | ED_ITS ---
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 Patient states he was transferring from his wheelchair to his bed when he fell. Reports passing out. Unknown head strike. Just returned home from [facility] two days ago. Denies current headache, blurred vision, double vision or other visual changes. Denies chest pain, palpitations or dyspnea. Denies any abdominal pain, nausea, vomiting, diarrhea. Denies any current dizziness or lightheadedness. States that he ambulates at baseline with a walker and has lifted shoe. MD complaint: fall Onset (ago): hour(s) Fall from: wheelchair Fall witnessed: no Place fall occurred: home Loss of consciousness: unsure Prolonged down time: no Quality: aching Related Data Home Medications ?Medication ?Instructions ?Recorded ?Confirmed [id number] 1 tab PO BEDTIME PRN Migraine 10/20/20 12/27/22 50 mg-325 mg-40 mg tablet Headache lorazepam 1 mg tablet 1 tab PO BID 10/20/20 12/27/22 venlafaxine 150 mg 150 mg PO DAILY 04/17/21 12/27/22 capsule,extended release 24 hr fluticasone propionate 45 2 puff inhalation BID 12/14/21 12/27/22 mcg-salmeterol 21 mcg/actuation HFA inhaler (Advair HFA) cyanocobalamin (vitamin B-12) 1,000 mcg subcut QMONTH 06/09/22 12/27/22 1,000 mcg/mL injection solution fluticasone propionate 50 1 spray intranasal BID PRN Allergy 06/09/22 12/27/22 mcg/actuation nasal Symptoms spray,suspension latanoprost 0.005 % eye drops 1 drp ophthalmic (eye) BEDTIME 06/09/22 12/27/22 lorazepam 1 mg tablet 1 mg PO DAILY PRN Anxiety 06/09/22 12/27/22 omeprazole 40 mg capsule,delayed 40 mg PO DAILY@0630 06/09/22 12/27/22 release venlafaxine 37.5 mg 1 cap PO DAILY 06/09/22 12/27/22 capsule,extended release 24 hr vibegron 75 mg tablet (Gemtesa) 1 tab PO DAILY 06/09/22 12/27/22 divalproex 500 mg tablet,delayed 500 mg PO QPM 08/21/22 12/27/22 release Previous Rx's ?Medication ?Instructions ?Recorded syringe with needle, safety 3 mL #100 ea 06/02/21 25 gauge x 5/8 (BD Safety-Jackie Detachable Needle) fexofenadine 180 mg tablet 180 mg PO DAILY PRN allergy 08/10/21 symptoms #90 caps albuterol sulfate 90 mcg/actuation 2 puff inhalation Q6H PRN 12/22/21 aerosol inhaler (ProAir HFA) shortness of breath or wheezing #8.5 grams amlodipine 10 mg tablet 10 mg PO DAILY #90 caps 02/21/22 apixaban 5 mg tablet 5 mg PO BID 90 days #180 tabs 03/07/22 docusate sodium 100 mg capsule 100 mg PO BID #60 caps 06/17/22 (Colace) ferrous sulfate 325 mg (65 mg 325 mg PO DAILY #90 tabs 08/18/22 iron) tablet (Feosol) Allergies Allergy/AdvReac Type Severity Reaction Status Date / Time carisoprodol [From Soma] Allergy Mild MENTAL Verified 09/28/23 19:49 STATUS CHANGE, BECOMES AGGRESIVE codeine [Codeine] Allergy Mild STOMACH Verified 09/28/23 19:49 UPSET, RASH gabapentin AdvReac Intermediate lousy Verified 09/28/23 19:49 feeling Review of Systems 2 Review of Systems: As per HPI. Yes all other systems are reviewed and are negative Constitutional: Constitutional: Reports as per HPI [facility] Past Medical History Medical History (Updated 09/29/23 @ 02:23 by Beatrice Argueta NP) Incisional hernia Premature atrial complexes Shortness of breath Rash Asthma exacerbation Leukocytosis Serum potassium elevated Low vitamin D level Headache Fatigue Moderate recurrent major depression Hospital discharge follow-up Chest tightness Dyspnea on exertion Allergic bronchitis Generalized anxiety disorder Tinea cruris SOB (shortness of breath) on exertion Constipation Atrial fibrillation Knee fracture, left Wedge compression fracture of L1 vertebra Prostate cancer Iron deficiency anemia Obstructive sleep apnea Vitamin D deficiency Diverticular disease Obesity (BMI 30-39.9) Peptic ulcer disease Degenerative disc disease GERD (gastroesophageal reflux disease) Anxiety and depression Vitamin B12 deficiency Gout Hypertension Fatigue Dysuria Surgical History History of colonoscopy History of hemiarthroplasty of left hip H/O rectal polypectomy History of knee replacement procedure of left knee H/O hernia repair History of pyloroplasty History of bowel resection History of cholecystectomy Family History Family History Father Diabetes Acute kidney failure Glaucoma Mother Lung cancer Social History Social History Household Members: None Housing: Apartment Do you presently have visiting nurse or other home services: No Alcohol intake: never Comment: sitter at bedside Patient Tobacco Use Status: Former Tobacco user Tobacco use type: Cigar e-Cigarette/Vaping Use: Currently Using Second Hand Smoke Exposure: No Advance Directives: Yes Advance Directives on File: Yes Advance Directives Date on File: 07/03/22 Do you have a plan to hurt others: No Plan service: No Current occupational status: retired Cognitive needs: No Hearing needs: Yes Vision needs: Yes Physical Exam 2 Vital Signs: Vital Signs: Last Vital Signs Pulse 86 09/28/23 21:07 Resp 18 09/28/23 21:07 BP 123/76 09/28/23 21:07 Pulse Ox 94 09/28/23 21:07 O2 Del Method Room Air 09/28/23 21:07 BMI result Body Mass Index 31.2 Vital signs have been reviewed and appear to be correct. Blood pressure normal. Heart rate normal. Respiratory rate normal. Temperature normal. Oxygen saturation normal. Const: General: no acute distress; No cooperative O rientation/consciousness: oriented to person, oriented to place, oriented to time and patient oriented x3 Limitations: no limitations HEENT: Head: Yes normocephalic and Yes atraumatic Ears: external ears normal General nose exam: Normal external nose present Face and sinus: Yes face symmetric Mouth: oropharynx normal and moist mucous membranes T hroat: Yes uvula midline Eyes: Pupils: Equal, round and reactive pupils present Neck: Neck: Yes normal visual inspection and Yes supple Resp: Effort & Inspection: normal respiratory effort and able to speak in complete sentences Auscultation: clear to auscultation bilaterally Cardio: Rate: regular rate Rhythm: regular rhythm Heart sounds: S1 normal heart sound present and S2 normal heart sound present GI: Palpation (GI): Soft to palpation and nontender Auscultation: n ormoactive bowel sounds : General: Yes no CVA tenderness Back/Spine/Pelvis: Back: no CVA tenderness Skin: General skin exam: elasticity normal and turgor normal Neuro: General: oriented to person, oriented to place, oriented to time, patient oriented x3, moves all extremities, no focal motor deficits and CN's II- XI intact bilaterally Cranial nerves: Yes Equal, round and reactive pupils present Cognition (Neuro): normal cognition Extrem: General: Yes full ROM, Yes capillary refill normal, Yes no pedal edema and Yes no calf tenderness Right lower extremity: foot (superficial abrasions) Left lower extremity: knee (superficial abrasion) and foot (superficial abrasions) Upper/lower leg/hip images: 1. surgical scar Psych: Mental Status: mental status grossly normal Affect: normal affect Thought process: Normal thought process present Medications Administered Discontinued Medications Generic Name Dose Route Start Last Admin Trade Name Wade PRN Reason Stop Dose Admin Fentanyl 50 mcg 09/28/23 20:35 09/28/23 20:52 Fentanyl Citrate/Pf 100 Mcg/2 Ml Vial IVPUSH 09/28/23 20:36 50 mcg ONCE ONE Administration Protocol Hydromorphone HCl 0.5 mg 09/28/23 21:27 09/28/23 21:31 Hydromorphone Hcl 1 Mg/Ml Syringe IVPUSH 09/28/23 21:28 0.5 mg ONCE ONE Administration Protocol Sodium Chloride 1,000 mls @ 999 mls/hr 09/28/23 20:45 09/28/23 22:53 Ns IV 09/28/23 21:45 Infused .Q1H1M MAGALIS Infusion Oxycodone HCl 5 mg 09/29/23 01:01 09/29/23 01:06 Oxycodone Hcl Immed Release 5 Mg Tablet PO 09/29/23 01:02 5 mg ONCE ONE Administration Medical Decision Making Medical Decision Making MDM Narrative: Patient is a 78-year-old male with history of asthma, AFib on Eliquis, 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 On exam patient is awake, A+Ox3, VS WNL, afebrile, normal neurological exam without focal deficits, physical exam findings as above. Given reported symptoms and physical exam findings, initial differential includes hip fracture/dislocation, knee or ankle fracture, ACS, cardiac arrhythmia, CVA/ICH, vasovagal syncope, dehydration, orthostatic intolerance, UTI. Labs notable for mild leukocytosis which appears chronic, chronic anemia, slightly elevated BUN. X-ray left hip notable for no acute fracture, absence of femoral head and neck components of hip prosthesis with proximal migration of left femur. Left knee x-ray notable for increased osseous lucency around the posterior flange of the femoral component of the left total knee prosthesis potentially due to new osteolysis. Chest x-ray notable for no acute cardiopulmonary disease. CT notable for no acute intracranial pathology, no acute fracture or malalignment of cervical spine. My interpretation is in agreement with the radiologist's interpretation. Patient initially stating that he wanted to be discharged home prior to results of imaging being interpreted by radiologist, then agreeable to remaining in the ED for full workup. Troponin 10.8, will order repeat to assess for delta. Urine pending. Will order PT consult to ensure patient is able to ambulate prior to discharge home. Patient signed out to Dr. Kendall pending repeat troponin/UA. Differential Diagnosis Differential Diagnoses: The differential diagnosis associated with the presentation includes As per [facility]. Admission/Observation Consideration of admission/observation: Escalation of care including admission/observation considered Patient would have been admitted to the hospital had their work up had any findings where hospital admission was appropriate and their clinical presentation warranted hospital admission. Lab Data [facility] Lab Attestation statement: I reviewed the patient's lab results. As per [facility]. 09/28/23 21:15 09/28/23 21:15 Labs: Lab Results 09/28/23 Range/Units 21:15 WBC 13.2 H (4.8-10.8) X10*3/uL RBC 4.15 L (4.60-5.80) X10*6/uL Hgb 10.3 L (14.0-18.0) g/dl Hct 33.0 L (42.0-52.0) % MCV 79.5 L (80.0-98.0) fL MCH 24.8 L (27.0-33.0) pg MCHC 31.2 (31.0-36.0) g/dl RDW 16.8 H (11.0-16.0) % Plt Count 326 (160-400) X10*3/uL MPV 9.6 (9.4-12.4) fL Immature Gran % (Auto) 0.6 H (0.0-0.4) % Neut % (Auto) 67.3 (45-73) % Lymph % (Auto) 21.2 (20-40) % Vermilion % (Auto) 9.6 (2-11) % Eos % (Auto) 0.8 (0-4) % Baso % (Auto) 0.5 (0-2) % Lymph # (Auto) 2.8 (1.2-4.9) X10*3/uL Vermilion # (Auto) 1.3 H (0.1-1.2) X10*3/uL Eos # (Auto) 0.1 (0.0-0.4) X10*3/uL Baso # (Auto) 0.1 (0.0-0.2) X10*3/uL Abs Immat Gran (auto) 0.08 H (0.00-0.03) X10*3/uL Absolute Neuts (auto) 8.9 H (2.0-8.3) x10*3/uL Absolute Nucleated RBC 0.000 (0.0-0.012) X10*3/uL Nucleated RBC % (auto) 0.0 (0.0-0.2) /100WBC Sodium 140 (135-145) mmol/L Potassium 4.3 (3.3-5.1) mmol/L Chloride 107 (96-108) mmol/L Carbon Dioxide 23 (22-29) mmol/L Anion Gap 14 (12-20) BUN 21 H (9-16) mg/dL Creatinine 0.85 (0.5-1.4) mg/dL Estim Creat Clear Calc 90.8 Estimated GFR > 60 Random Glucose 91 (60-115) mg/dL Calcium 9.1 (8.4-10.2) mg/dL Total Bilirubin 0.5 (0.0-1.0) mg/dL AST 20 (5-37) U/L ALT 14 (0-40) U/L Alkaline Phosphatase 83 (39-117) U/L Troponin I High Sens 10.8 D (<3.5-35.0) ng/L Total Protein 6.6 (6.5-8.0) g/dL Albumin 3.7 (3.5-5.0) g/dL Independent Interpretation I performed an independent interpretation of an: EKG (sinus rhythm with sinus arrhythmia, rate 94 bpm, normal NM interval andQTc) and Plain X-Ray Interpretation: X-ray left hip notable for no acute fracture, absence of femoral head and neck components of hip prosthesis with proximal migration of left femur. Left knee x-ray notable for increased osseous lucency around the posterior flange of the femoral component of the left total knee prosthesis potentially due to new osteolysis. Chest x-ray notable for no acute cardiopulmonary disease. CT notable for no acute intracranial pathology, no acute fracture or malalignment of cervical spine. Radiology Impression Discussion of test interpretation with radiology: I have reviewed the radiologist's reading. Radiologist Impression: CT/CT head/brain wo IV con IMPRESSION: 1. No acute intracranial pathology. 2. No acute fracture or malalignment in the cervical spine. 3. Chronic superior endplate compression deformity at T1, unchanged. 4. Moderate multilevel degenerative spondylosis in the cervical spine with neural foraminal encroachment on the left at C3-C4 and C4-C5 and on the right at C3-C4 and C6-C7. XR/XR knee LT 2V IMPRESSION: 1. No acute fractures are identified in the pelvis, left hip, and left knee. 2. Absence of the femoral head and neck components of the left total hip prosthesis with proximal migration of the left femur. 3. Increased osseous lucency around the posterior flange of the femoral component of the left total knee prosthesis, potentially due to new osteolysis. External Record Review External record reviewed: Inpatient record, Office record and Outpatient record Prescription Management I considered prescription management with: Pain Medication Discharge Plan Discharge Clinical Impression: Contusion of knee, left Patient Disposition: Still a Patient Prescriptions: No Action (DME) BD Safety-Jackie Detachable Needl 3 mL 25 gauge x 5/8 syringe See Rx Instructions .ROUTE .MEDSUPPLY Qty: 100 12RF Rx Instructions: As directed fexofenadine 180 mg tablet 180 mg PO DAILY PRN (Reason: allergy symptoms) Qty: 90 3RF albuterol sulfate [ProAir HFA] 90 mcg/actuation HFA aerosol inhaler 2 puff inhalation Q6H PRN (Reason: shortness of breath or wheezing) Qty: 8.5 0RF amlodipine 10 mg tablet 10 mg PO DAILY Qty: 90 2RF apixaban 5 mg tablet 5 mg PO BID 90 Days Qty: 180 2RF ferrous sulfate [Feosol] 325 mg (65 mg iron) tablet 325 mg PO DAILY Qty: 90 2RF xucrutpbva-lntnfqetrwslx-esip 50-325-40 mg tablet 1 tab PO BEDTIME PRN (Reason: Migraine Headache) lorazepam 1 mg tablet 1 tab PO BID venlafaxine 150 mg capsule,extended release 24hr 150 mg PO DAILY Rx Instructions: take with 37.5mg for total dose of 187.5mg venlafaxine 37.5 mg capsule,extended release 24hr 1 cap PO DAILY Rx Instructions: take with 150mg for total dose of 187.5mg latanoprost 0.005 % drops 1 drp ophthalmic (eye) BEDTIME lorazepam 1 mg tablet 1 mg PO DAILY PRN (Reason: Anxiety) fluticasone propionate 50 mcg/actuation spray,suspension 1 spray intranasal BID PRN (Reason: Allergy Symptoms) Rx Instructions: instill one spray into each nostril Gemtesa 75 mg tablet 1 tab PO DAILY omeprazole 40 mg capsule,delayed release(DR/EC) 40 mg PO DAILY@0630 cyanocobalamin (vitamin B-12) 1,000 mcg/mL solution 1,000 mcg subcut QMONTH docusate sodium [Colace] 100 mg capsule 100 mg PO BID Qty: 60 2RF divalproex 500 mg tablet,delayed release (DR/EC) 500 mg PO QPM Advair HFA 45-21 mcg/actuation HFA aerosol inhaler 2 puff inhalation BID Print Language: Tunisian
[2023-09-28] MEDS: fentaNYL citrate/PF 100 MCG/2 ML VIAL 50 MCG IVPUSH (20:52)
[2023-09-28] MEDS: 0.9 % Sodium Chloride 1,000 ML 999 ML IV (20:53)
--- NOTE | 2023-09-28 21:05 | ECG_ITS ---
Test Reason : FALL Blood Pressure : / mmHG Vent. Rate : 094 BPM Atrial Rate : 094 BPM P-R Int : 158 ms QRS Dur : 080 ms QT Int : 354 ms P-R-T Axes : 000 025 053 degrees QTc Int : 442 ms Artifact in tracing Possible sinus with PACs (vs ectopic atrial rhythm) Low voltage QRS Lateral infarct (cited on or before 18-DEC-2022) Abnormal ECG When compared with ECG of 18-DEC-2022 04:47, Vent. rate has increased BY 39 BPM Referred By: Beatrice Argueta Electronically Signed By:JC SANTIAGO
[2023-09-28 21:07] VITALS: BP 123/76; PULSE 86; RESP 18; O2SAT 94
[2023-09-28 21:30] LABS: Basophils Absolute Auto 0.1 X10*3/uL (0.0-0.2); Basophils Percent Auto 0.5 % (0-2); Eosinophils Absolute Auto 0.1 X10*3/uL (0.0-0.4); Eosinophils Percent Auto 0.8 % (0-4); Hemoglobin 10.3 g/dl (14.0-18.0); Imm Gran Abs Auto 0.08 X10*3/uL (0.00-0.03); Imm Gran Pct Auto 0.6 % (0.0-0.4); Lymphocytes Absolute Auto 2.8 X10*3/uL (1.2-4.9); Lymphocytes Percent Auto 21.2 % (20-40); Mean Corpuscular HGB Conc 31.2 g/dl (31.0-36.0); Mean Corpuscular Hemoglobin 24.8 pg (27.0-33.0); Mean Corpuscular Volume 79.5 fL (80.0-98.0); Mean Platelet Volume 9.6 fL (9.4-12.4); Monocytes Absolute Auto 1.3 X10*3/uL (0.1-1.2); Monocytes Percent Auto 9.6 % (2-11); Neutrophils Absolute Auto 8.9 x10*3/uL (2.0-8.3); Neutrophils Percent Auto 67.3 % (45-73); Platelet Count 326 X10*3/uL (160-400); Red Blood Count 4.15 X10*6/uL (4.60-5.80); Red Cell Distribution Width 16.8 % (11.0-16.0); White Blood Count 13.2 X10*3/uL (4.8-10.8)
[2023-09-28] MEDS: HYDROmorphone HCl 1 MG/ML SYRINGE 0.5 MG IVPUSH (21:31)
[2023-09-28 21:33] LABS: Alanine Aminotransferase 14 U/L (0-40); Albumin Level 3.7 g/dL (3.5-5.0); Alkaline Phosphatase 83 U/L (39-117); Anion Gap 14 (12-20); Aspartate Amino Transferase 20 U/L (5-37); Bilirubin Total 0.5 mg/dL (0.0-1.0); Blood Urea Nitrogen 21 mg/dL (9-16); Calcium 9.1 mg/dL (8.4-10.2); Carbon Dioxide 23 mmol/L (22-29); Chloride 107 mmol/L (96-108); Creatinine Clr Calc Pharmacy 90.8; Estimated Glomerular Filt Rate > 60; Glucose Random 91 mg/dL (60-115); Potassium 4.3 mmol/L (3.3-5.1); Sodium 140 mmol/L (135-145); Total Protein 6.6 g/dL (6.5-8.0)
[2023-09-28 21:36] LABS: MANUAL DIFF FLAG NO
--- NOTE | 2023-09-28 21:41 | PC.NURSE ---
abrasions from fall to bilateral toes, L knee, L elbow. c/o pain to L ribs, knee and hip
--- NOTE | 2023-09-28 22:33 | PC.NURSE ---
pt very agitated, wants to go home. provider and RN explained to pt we are waiting for results to come back, then can return home if he can ambulate back at baseline. pt was reluctant but willing to wait. pt threw IVF onto ground, demanded everything be disconnected. Will not finish the rest of IVF. pt reported he was incont. assist with washing and changing bed. while collecting supplies, pt got himself to the end of the bed and was standing. assist ot with washing. told pt to stay sitting, pt did not follow those directions. assist pt back into bed. pt ambulated around the bed to sit in the middle.
--- NOTE | 2023-09-28 22:38 | PC.NURSE ---
pt yelling out nurse all night. upon entry pt is back out of bed in a chair demanding to leave. pt states i want these to come with me t keep m from falling out of bed referring to the bed rails
--- NOTE | 2023-09-28 22:54 | PC.NURSE ---
pt attempted to give urine sample, unable since just voiding in bed. pt did agree at this moment to more lab work. pt keeps saying he never got pain meds, he received a few doses. continues to move independently in bed. apologizes for behavior then yells again. directable at times
--- NOTE | 2023-09-28 23:10 | PC.NURSE ---
pt back out of bed, at sink in room because he was thirsty. pt got back into bed w/out help
[2023-09-29] MEDS: oxyCODONE HCl Immed Release 5 MG TABLET PO (01:06)
[2023-09-29 01:37] LABS: Troponin-I High Sensitivity 10.8 ng/L (<3.5-35.0)
[2023-09-29 02:38] VITALS: BP 135/82; PULSE 98; RESP 18; TEMP 36.6; O2SAT 96
[2023-09-29] MEDS: LORazepam 1 MG TABLET PO (02:41)
[2023-09-29 03:15] LABS: Troponin-I High Sensitivity 12.1 ng/L (<3.5-35.0)
--- NOTE | 2023-09-29 03:38 | PC.NURSE ---
pt yelling/cursing at staff from the hallway; instructed several times by this RN and other staff members to stop yelling. he is asking for his sneakers that are at home and not here at the hospital. pt attempting to get out of bed, pt is a fall risk and has been told several times to stay in bed. pt increasingly disrespectful to staff.
[2023-09-29] MEDS: diphenhydrAMINE HCL 25 MG CAPSULE 50 MG PO (03:52)
[2023-09-29] MEDS: HaloperidoL 5 MG TABLET 10 MG PO ×2 (03:52→05:19)
--- NOTE | 2023-09-29 05:00 | PC.NURSE ---
pt throwing pillow at staff as they walked by. pillow was removed by this staff member.
--- NOTE | 2023-09-29 05:20 | PC.NURSE ---
pt attempting to get out of bed; when instructed to lay back down by staff yells in their face shut the fuck up!
--- NOTE | 2023-09-29 05:31 | PC.NURSE ---
patient screaming at staff from [facility] give me the fucking pillow! pt then attempting to get out of bed. pt was approached by this RN and EDT. pt then began to swing at staff. this RN was able to block him from hitting EDT. pt then began to yell now you're abusing me! pt was instructed to lay back down in bed to which he then attempted to strike staff member. security walking by at this time. told pt he would get the pillow if he laid down in bed. pillow was then provided to pt by security.
[2023-09-29] MEDS: oxyCODONE HCl Immed Release 5 MG TABLET 10 MG PO (06:04)
[2023-09-29 06:08] VITALS: BP 129/74; PULSE 106; RESP 18; TEMP 37.1; O2SAT 97
[2023-09-29 07:16] VITALS: RESP 16
[2023-09-29 07:17] VITALS: RESP 16
--- NOTE | 2023-09-29 09:33 | PC.NURSE ---
patient agitated, restless, attempting to get out of bed, swearing at staff yelling fuck you when staff are assisting patient. JUKEBOX CHECKER aware.
[2023-09-29 09:40] VITALS: BP 139/92; PULSE 102; RESP 16; TEMP 36.5; O2SAT 96
--- NOTE | 2023-09-29 09:45 | PC.NURSE ---
Patient incontinent of urine. care provided and linens changed, warm blankets given. Patient cooperative during care and states thank you for helping me. patient denies pain, states he is just tired at this time. VSS. [place] cath in place per WAREHOUSE DELIVERY MANAGER to obtain urine sample.
--- NOTE | 2023-09-29 16:27 | PC.NURSE ---
[facility] [phone]
--- NOTE | 2023-09-29 20:03 | MHC.EDTECH ---
At this time dinner tray was given to patient. He stated he would wait, and went back to sleep. Tray was left at bedside
[2023-09-29 20:09] VITALS: BP 118/86; PULSE 99; RESP 18; TEMP 36.6; O2SAT 96
[2023-09-29 23:50] LABS: Appearance Urine Clear; Color Urine Yellow; Glucose Urine UA Negative (Negative); Leukocyte Esterase Urine Negative (Negative); Nitrite Urine Negative (Negative); PH 5.5 (5.0-9.0); Specific Gravity - Urine 1.015 (1.005-1.025); Urine Blood Negative (Negative); Urine Ketones 15 mg/dL (Negative); Urine Protein Negative (Neg-Trace)
--- NOTE | 2023-09-30 00:26 | MHC.EDTECH ---
@0015 patient used call mcknight for help, patient had a BM in bed. This tech gathered supplies and then cleaned up patient, changed bedding, and got him redressed. Got another tech and helped boost him in bed, Gave patient a warm blanket, and turned down the lights. No Other concerns at this time.
[2023-09-30] MEDS: Psyllium seed 3.7 GM PACKET PO (04:48)
[2023-09-30 06:34] VITALS: BP 138/88; PULSE 95; RESP 18; TEMP 36.4; O2SAT 96
--- NOTE | 2023-09-30 06:36 | PC.NURSE ---
Patient is alert and oriented to self, place, familiar person, unable to state current date. Patient denies any pain, respirations even and unlabored, VSS. Patient offers no complaints at this time, call mcknight in patient's reach, plan of care ongoing.
[2023-09-30 09:40] LABS: COVID-19 Test Negative (Negative); IDNOW Serial# 08D9AD1C
[2023-09-30] MEDS: Trolamine Salicylate 10 % Cream 85 GM TUBE 1 APPL TOPICAL (10:18)
[2023-09-30 13:29] VITALS: BP 138/88; PULSE 95; O2SAT 96
--- NOTE | 2023-09-30 14:34 | MHC.CM.ED ---
Received case management consult overnight. Patient came to the ER due to a fall. Work up essentially negative. Physical therapy eval pending. Patient was at [facility] from 11/14/2022-09/26/23. Patient was d/c'd home with [facility]. Referral made to [facility]. Waiting for completed physical therapy eval to determine safe d/c plan. Continue to monitor for d/c needs.
[2023-09-30 15:14] VITALS: BP 160/93; PULSE 109; RESP 22; O2SAT 100
--- NOTE | 2023-09-30 15:17 | PHA.MEDREC ---
Pharmacy Consult ? Medication Reconciliation Pharmacy has completed the medication reconciliation. Got a list from [facility] and used that for home list since he was discharged 2 days ago. Asked patient if they were discharged with medications and he reports they sent him home with blister packs from facility but did not bring anything in with him today.
[2023-09-30] MEDS: oxyCODONE HCl Immed Release 5 MG TABLET PO (16:15)
[2023-09-30] MEDS: Loratadine 10 MG TABLET PO (16:16)
[2023-09-30] MEDS: Omeprazole 20 MG CAPSULE.DR PO (16:16)
[2023-09-30] MEDS: Acetaminophen 325 MG TABLET 650 MG PO ×2 (16:16→20:32)
[2023-09-30] MEDS: Lidocaine 4 % Patch ADH..PATCH 1 PATCH TRANSDERMA (16:17)
[2023-09-30] MEDS: amLODIPine Besylate 2.5 MG TABLET PO (16:19)
[2023-09-30] MEDS: Divalproex Sodium ER 500 MG TAB.ER.24H PO (16:20)
[2023-09-30 17:39] VITALS: BP 145/95; PULSE 103; RESP 20; TEMP 36.6; O2SAT 96
--- NOTE | 2023-09-30 18:51 | MHC.CM.ED ---
CM met with patient. Orientated x3, however has some obvious difficulties with memory. Cannot remember where he lives. Is not sure about medicines. Uses a walker. Has a lifted shoe. Uses hearing aides x2. Unsure if patient understands consequences. Was at [facility] for 10 months and was discharged on 09/25 to an apartment with [facility]. Has no current services. HCP on file. Yg Farooq ([phone]). Pt has given CM permission to speak with Yg, as his memory is not good. (per patient). CM spoke with Yg. He tells CM that the patient does not have anyone else to help him. Has an ex- and a daughter that he has no contact with. Yg has concerns that this patient could be over-medicating himself, as he has done this in the past. Yg has real concerns about patient's ability to care for himself and live alone with significant assistance. Pt this point, CM is unsure of extent of services for patient, but believes it may be limited. Pt had 2 falls since leaving [facility], has been incontinent of urine, and unable to care for himself. Yg tells CM that patient has difficulty ambulating and is unsure why he was discharged from [facility]. Yg tells CM that he is 83 and can only do so much for his friend. CM left a message with [facility] regarding services for this patient. PT is recommending home care vs additional STR. CM has concerns about patient's capacity to make medical decisions. Above communicated with Nain GREENBERG. Psych for capacity ordered. No referrals made at this time for additional STR pending psych evaluation. Patient would like to go home with services. CM will follow for safe discharge plan.
--- NOTE | 2023-09-30 19:18 | PC.NURSE ---
This RN assumed pt care @ 1900. Pt sitting in bed, with family at bedside. Pt requesting to see Aline from care team. Aline with pt. Plan of care ongoing.
--- NOTE | 2023-09-30 19:19 | MHC.EDTECH ---
patient transfered frombed to chair. Talking with visitor.
--- NOTE | 2023-09-30 19:44 | PC.NURSE ---
Pts family requesting help with pt being placed back into bed. Tech assisted pt back into bed. Plan of care ongoing.
--- NOTE | 2023-09-30 19:46 | MHC.EDTECH ---
Pt helped back into bed, friend just left patient resting quietly.
--- NOTE | 2023-09-30 19:59 | PC.NURSE ---
Family no longer at bedside.
[2023-09-30 20:31] VITALS: BP 141/88; PULSE 100
[2023-09-30] MEDS: Tamsulosin HCL 0.4 MG CAPSULE PO (20:31)
[2023-09-30] MEDS: Metoprolol Tartrate 25 MG TABLET PO (20:31)
[2023-09-30] MEDS: Gabapentin 100 MG CAPSULE 200 MG PO (20:32)
[2023-09-30] MEDS: LORazepam 1 MG TABLET PO (20:32)
[2023-09-30] MEDS: Apixaban 5 MG TABLET PO (20:32)
[2023-09-30] MEDS: Melatonin 3 MG TABLET 9 MG PO (20:33)
--- NOTE | 2023-09-30 20:36 | PC.NURSE ---
Pt requesting meds. Meds given per jun. Pt assisted back into bed. Plan of care ongoing.
[2023-10-01 04:17] VITALS: BP 157/99; PULSE 77; RESP 16; TEMP 36.4; O2SAT 96
[2023-10-01] MEDS: oxyCODONE HCl Immed Release 5 MG TABLET PO ×2 (05:01→13:07)
--- NOTE | 2023-10-01 05:03 | PC.NURSE ---
Pt reporting 8/10 back pain. Pt requesting and given pain meds. Pt medicated per jun. Plan of care ongoing.
[2023-10-01 07:42] VITALS: BP 138/87; PULSE 72; RESP 18; TEMP 36.7; O2SAT 98
[2023-10-01] MEDS: Divalproex Sodium ER 500 MG TAB.ER.24H PO (09:02)
[2023-10-01] MEDS: Lidocaine 4 % Patch ADH..PATCH 1 PATCH TRANSDERMA (09:02)
[2023-10-01] MEDS: Acetaminophen 325 MG TABLET 650 MG PO ×3 (09:02→20:24)
[2023-10-01] MEDS: Venlafaxine HCl ER 150 MG CAP.ER.24H PO (09:02)
[2023-10-01 09:03] VITALS: BP 138/87; PULSE 72
[2023-10-01] MEDS: Omeprazole 20 MG CAPSULE.DR PO (09:03)
[2023-10-01] MEDS: amLODIPine Besylate 2.5 MG TABLET PO (09:03)
[2023-10-01] MEDS: Metoprolol Tartrate 25 MG TABLET PO ×2 (09:03→20:22)
[2023-10-01] MEDS: LORazepam 1 MG TABLET PO ×2 (09:03→14:18)
[2023-10-01] MEDS: Apixaban 5 MG TABLET PO ×2 (09:03→20:21)
[2023-10-01] MEDS: Loratadine 10 MG TABLET PO ×2 (09:04)
[2023-10-01] MEDS: Gabapentin 100 MG CAPSULE 200 MG PO ×2 (09:04→20:21)
[2023-10-01] MEDS: Simethicone 80 MG TAB.CHEW PO (13:28)
[2023-10-01 15:12] VITALS: BP 139/80; PULSE 80; RESP 18; TEMP 36.9; O2SAT 98
--- NOTE | 2023-10-01 16:24 | PM.PSYCN ---
History of Present Illness Date of Service: 10/01/2023 Chief Complaint: Mechanical fall, + thinners, no LOC, knee abrasion Reason for Consult: capacity/ability to care for himself. Discussed with referring provider: Yes Sources of Information: patient interviewed, chart reviewed and crisis/core team assessment reviewed HPI Narrative: Mr. Salas is a 78 year-old male who was brought to [facility] after he felt. He called 911. He had been at [facility] for rehab for about 10 months and return home few days prior to presenting. He has limited supports but has a friend who comes and visits him almost daily. Her friend had concern in terms of his ability to secure food, ambulate safety, care for himself. Labs include: chronic leukocytosis, microcytic anemia, BUN 21, Cr 0.85, no electrolyte abnormalities. Utox negative. UA with ketones. Pt has presented somewhat irritable, asking to be discharged. He was someone guarded with this greeting card writer but cooperative. Pt able to tell reason to be here in the hospital. He states that he felt off the bed and called 911. He is oriented to place, month and year. He denies any changes in cognition and thinks he is able to care for himself. This greeting card writer explained that he has been in a facility where most supports were given for 10 months and given concerns additional assessments can be completed to asess his ability to care for himself. [facility] Medical History (Updated 10/01/23 @ 16:35 by Halima Meza) Incisional hernia Premature atrial complexes Shortness of breath Rash Asthma exacerbation Leukocytosis Serum potassium elevated Low vitamin D level Headache Fatigue Moderate recurrent major depression Hospital discharge follow-up Chest tightness Dyspnea on exertion Allergic bronchitis Generalized anxiety disorder Tinea cruris SOB (shortness of breath) on exertion Constipation Atrial fibrillation Knee fracture, left Wedge compression fracture of L1 vertebra Prostate cancer Iron deficiency anemia Obstructive sleep apnea Vitamin D deficiency Diverticular disease Obesity (BMI 30-39.9) Peptic ulcer disease Degenerative disc disease GERD (gastroesophageal reflux disease) Anxiety and depression Vitamin B12 deficiency Gout Hypertension Fatigue Dysuria Surgical History History of colonoscopy History of hemiarthroplasty of left hip H/O rectal polypectomy History of knee replacement procedure of left knee H/O hernia repair History of pyloroplasty History of bowel resection History of cholecystectomy Diagnostics Vital Signs (24Hr): Vital Signs - 24 hr 09/30/23 17:39 09/30/23 20:31 10/01/23 04:17 Temperature 97.9 F 97.6 F Pulse Rate 103 H 100 77 Respiratory Rate 20 16 Blood Pressure 145/95 H 141/88 H 157/99 H Pulse Oximetry 96 96 Oxygen Delivery Method Room Air Room Air 10/01/23 07:42 10/01/23 09:03 10/01/23 09:03 Temperature 98.1 F Pulse Rate 72 72 Respiratory Rate 18 Blood Pressure 138/87 138/87 138/87 Pulse Oximetry 98 Oxygen Delivery Method Room Air 10/01/23 15:12 Temperature 98.5 F Pulse Rate 80 Respiratory Rate 18 Blood Pressure 139/80 Pulse Oximetry 98 Oxygen Delivery Method Room Air BMI result Body Mass Index 31.2 Labs 09/28/23 21:15 09/28/23 21:15 Labs: Laboratory Results - last 48 hr 09/29/23 09/30/23 23:43 09:07 Urine Color Yellow Urine Appearance Clear Urine pH 5.5 Ur Specific [place] 1.015 Urine Protein Negative Urine Glucose (UA) Negative Urine Ketones 15 Urine Blood Negative Urine Nitrite Negative Ur Leukocyte Esterase Negative COVID-19 (MAGY) Negative COVID-19 Clin Com See Note Imaging Radiology Impressions: ITS Impressions Chest X-Ray 09/28/23 20:27 IMPRESSION: No acute cardiopulmonary disease. Hip X-Ray 09/28/23 20:27 IMPRESSION: 1. No acute fractures are identified in the pelvis, left hip, and left knee. 2. Absence of the femoral head and neck components of the left total hip prosthesis with proximal migration of the left femur. 3. Increased osseous lucency around the posterior flange of the femoral component of the left total knee prosthesis, potentially due to new osteolysis. Knee X-Ray 09/28/23 20:27 IMPRESSION: 1. No acute fractures are identified in the pelvis, left hip, and left knee. 2. Absence of the femoral head and neck components of the left total hip prosthesis with proximal migration of the left femur. 3. Increased osseous lucency around the posterior flange of the femoral component of the left total knee prosthesis, potentially due to new osteolysis. Cervical Spine CT 09/28/23 22:15 IMPRESSION: 1. No acute intracranial pathology. 2. No acute fracture or malalignment in the cervical spine. 3. Chronic superior endplate compression deformity at T1, unchanged. 4. Moderate multilevel degenerative spondylosis in the cervical spine with neural foraminal encroachment on the left at C3-C4 and C4-C5 and on the right at C3-C4 and C6-C7. Head CT 09/28/23 22:15 IMPRESSION: 1. No acute intracranial pathology. 2. No acute fracture or malalignment in the cervical spine. 3. Chronic superior endplate compression deformity at T1, unchanged. 4. Moderate multilevel degenerative spondylosis in the cervical spine with neural foraminal encroachment on the left at C3-C4 and C4-C5 and on the right at C3-C4 and C6-C7. Mental Status Exam Mental Status Exam Narrative: Pt is wearing hospital gown, fair hygiene, in NAD Behavior: somewhat guarded Psychomotor: no agitation or retardation noted Speech: mostly clear, regular rate/rhythm/volume, spontaneous TP: linear TC: wanting to go home Mood: okay Affect: somewhat irritable SI: none HI: none VH/AH: none Delusions: none Memory/cog: alert, oriented to place, month, year, situation. Although he is oriented, further assessments to assess higher functioning of the brain are needed- pending OT MOCA and ACL. Medications Medications Current Medications Acetaminophen (Acetaminophen 325 Mg Tablet) 650 mg PO Q4H PRN PRN Reason: Fever Or Pain Acetaminophen (Acetaminophen 325 Mg Tablet) 650 mg PO TID [facility] Last Admin: 10/01/23 14:18 Dose: 650 mg Amlodipine Besylate (Amlodipine Besylate 2.5 Mg Tablet) 2.5 mg PO DAILY [facility]; Protocol Last Admin: 10/01/23 09:03 Dose: 2.5 mg Apixaban (Apixaban 5 Mg Tablet) 5 mg PO BID [facility] Last Admin: 10/01/23 09:03 Dose: 5 mg Calcium Carbonate (Calcium Carbonate 500 Mg Tablet) 500 mg PO BID PRN PRN Reason: Indigestion Last Admin: 09/30/23 20:31 Dose: 500 mg Calcium Carbonate (Calcium Carbonate 750 Mg Tab.Chew) 750 mg PO Q4H PRN PRN Reason: Indigestion Divalproex Sodium (Divalproex Sodium Er 500 Mg Tab.Er.24h) 500 mg PO DAILY [facility] Last Admin: 10/01/23 09:02 Dose: 500 mg Fluticasone Propionate (Fluticasone Propionate Nasal 16 Gm [place]) 1 spray NOSTRIL-B BID [facility] Last Admin: 10/01/23 09:09 Dose: Not Given Gabapentin (Gabapentin 100 Mg Capsule) 200 mg PO BID [facility] Last Admin: 10/01/23 09:04 Dose: 200 mg Lidocaine (Lidocaine 4 % Patch Adh..Patch) 1 patch TRANSDERMA DAILY [facility]; Protocol Last Admin: 10/01/23 09:02 Dose: 1 patch Loratadine (Loratadine 10 Mg Tablet) 10 mg PO DAILY [facility] Last Admin: 10/01/23 09:04 Dose: 10 mg Lorazepam (Lorazepam 1 Mg Tablet) 1 mg PO DAILY PRN PRN Reason: Anxiety Last Admin: 10/01/23 14:18 Dose: 1 mg Lorazepam (Lorazepam 1 Mg Tablet) 1 mg PO BID [facility] Last Admin: 10/01/23 09:03 Dose: 1 mg Magnesium Hydroxide (Milk Of Magnesia 30 Ml Oral.Susp) 30 ml PO DAILY PRN PRN Reason: Constipation Melatonin (Melatonin 3 Mg Tablet) 9 mg PO BEDTIME [facility] Last Admin: 09/30/23 20:33 Dose: 9 mg Metoprolol Tartrate (Metoprolol Tartrate 25 Mg Tablet) 25 mg PO BID [facility]; Protocol Last Admin: 10/01/23 09:03 Dose: 25 mg Naloxone HCl (Naloxone Hcl Nasal 4 Mg [place]) 4 mg NOSTRILALT Q3M PRN PRN Reason: sedation/unresponsive Omeprazole (Omeprazole 20 Mg Capsule.Dr) 20 mg PO DAILY@0630 [facility] Last Admin: 10/01/23 09:03 Dose: 20 mg Oxycodone HCl (Oxycodone Hcl Immed Release 5 Mg Tablet) 5 mg PO TID PRN PRN Reason: severe pain Last Admin: 10/01/23 13:07 Dose: 5 mg Polyethylene Glycol (Polyethylene Glycol 3350 17 Gm Powd.Pack) 17 gm PO DAILY PRN PRN Reason: Constipation Simethicone (Simethicone 80 Mg Tab.Chew) 80 mg PO Q8H PRN PRN Reason: Indigestion Last Admin: 10/01/23 13:28 Dose: 80 mg Tamsulosin HCl (Tamsulosin Hcl 0.4 Mg Capsule) 0.4 mg PO BEDTIME [facility] Last Admin: 09/30/23 20:31 Dose: 0.4 mg Venlafaxine HCl (Venlafaxine Hcl Er 150 Mg Cap.Er.24h) 150 mg PO DAILY [facility] Last Admin: 10/01/23 09:02 Dose: 150 mg Allergies Allergies Allergy/AdvReac Type Severity Reaction Status Date / Time carisoprodol [From Soma] Allergy Mild MENTAL Verified 09/28/23 19:49 STATUS CHANGE, BECOMES AGGRESIVE codeine [Codeine] Allergy Mild STOMACH Verified 09/28/23 19:49 UPSET, RASH gabapentin AdvReac Intermediate lousy Verified 09/28/23 19:49 feeling Assessment & Plan Assessment & Plan (1) Cognitive impairment: Status: Acute Code(s): R41.89 - Other symptoms and signs involving cognitive functions and awareness Plan Mr. Salas is a 78 year-old male who called 911 after a fall and was brought here to ED. Pt had been [facility] for rehab for the past 10 month and closes friend has noticed that pt not able clean himself, manage his medications, secure food. Although, pt presents as oriented to place, month, year and situation, to further assess his ability to care for himself additional tests are needed including ACL/MOCA. PLAN 1. order OT MOCA/ACL. 2. psych to follow to interpret results of test. Total time managing care of this patient today ____ minutes.
--- NOTE | 2023-10-01 19:25 | MHC.CM.ED ---
Halima industrial psychology professor completed her evaluation of this patient and has recommended an order to OT to assess MOCA and ACL. Halima tells CM that patient is very impaired in his thought process and understanding of his ability to care for himself. Psych will follow for further. testing. Pt may need guardianship/conservator. Pt does have MH standard. Patient may need LTC pending results of further cognitive testing. CM Administration, Page Grant and Katiana Fuller aware. CM will continue to follow for safe discharge planning.
[2023-10-01] MEDS: Melatonin 3 MG TABLET 9 MG PO (20:21)
[2023-10-01] MEDS: Tamsulosin HCL 0.4 MG CAPSULE PO (20:21)
[2023-10-01] MEDS: LORazepam 0.5 MG TABLET PO (20:21)
[2023-10-01 20:22] VITALS: BP 119/76; PULSE 71
[2023-10-01] MEDS: OLANZapine 5 MG TABLET PO (21:55)
[2023-10-01 22:00] VITALS: BP 132/80; PULSE 76; RESP 16; TEMP 36.6; O2SAT 97
[2023-10-02 05:16] LABS: Estimated Average Glucose 97 mg/dL
[2023-10-02 06:07] VITALS: BP 110/66; PULSE 59; RESP 16; TEMP 36.6; O2SAT 95
[2023-10-02] MEDS: Omeprazole 20 MG CAPSULE.DR PO (06:09)
[2023-10-02] MEDS: Acetaminophen 325 MG TABLET 650 MG PO ×2 (07:59→20:19)
[2023-10-02 08:00] VITALS: BP 134/91
[2023-10-02] MEDS: LORazepam 0.5 MG TABLET PO ×2 (08:00→20:18)
[2023-10-02] MEDS: amLODIPine Besylate 2.5 MG TABLET PO (08:00)
[2023-10-02] MEDS: Gabapentin 100 MG CAPSULE 200 MG PO ×2 (08:00→20:18)
[2023-10-02] MEDS: Divalproex Sodium ER 500 MG TAB.ER.24H PO (08:00)
[2023-10-02] MEDS: Loratadine 10 MG TABLET PO (08:00)
[2023-10-02 08:02] VITALS: BP 134/91; PULSE 80
[2023-10-02] MEDS: Lidocaine 4 % Patch ADH..PATCH 1 PATCH TRANSDERMA (08:02)
[2023-10-02] MEDS: Venlafaxine HCl ER 150 MG CAP.ER.24H PO (08:02)
[2023-10-02] MEDS: Apixaban 5 MG TABLET PO ×2 (08:02→20:18)
[2023-10-02] MEDS: Metoprolol Tartrate 25 MG TABLET PO ×2 (08:02→20:18)
--- NOTE | 2023-10-02 08:22 | PC.NURSE ---
awake and alert. room air, resp even and unlabored. speaking in full clear sentences. abd soft. skin wcd, abrasians to arms. resting comfortably in bed.
--- NOTE | 2023-10-02 10:29 | MHC.CM.PN ---
This sba underwriter placed call to pt's HCP, Yg, he is still willing to serve as pt's HCP. No need for guardianship @ this time.
[2023-10-02] MEDS: oxyCODONE HCl Immed Release 5 MG TABLET PO ×2 (13:40→21:55)
[2023-10-02 13:42] VITALS: BP 143/90; PULSE 87; RESP 18; TEMP 36.4; O2SAT 97
--- NOTE | 2023-10-02 13:44 | PC.NURSE ---
assumed care of patient, patient requested prn pain medication for pain in left shoulder 12/06. patient medicated per Jun. patient is alert and oriented. respirations equal and unlabored, VSS. patient resting in hospital bed, given warm blanket.
--- NOTE | 2023-10-02 17:15 | PC.NURSE ---
pt ambulated independently to recliner, 350ml urine emptied from urinal, pt assisted back into bed, warm blankets given.
[2023-10-02 19:01] VITALS: BP 116/76; PULSE 84; RESP 16; TEMP 36.7; O2SAT 97
[2023-10-02] MEDS: Melatonin 3 MG TABLET 9 MG PO (20:19)
[2023-10-02] MEDS: Tamsulosin HCL 0.4 MG CAPSULE PO (20:19)
[2023-10-02] MEDS: Fluticasone Propionate Nasal 16 GM SPRAY 1 SPRAY NOSTRIL-B (20:19)
[2023-10-02] MEDS: Loperamide HCl 2 MG CAPSULE 4 MG PO (21:26)
[2023-10-02] MEDS: OLANZapine 5 MG TABLET PO (21:55)
--- NOTE | 2023-10-03 05:41 | PC.NURSE ---
Resumed care of pt at 0530. PT appears to be sleeping. respirations even and unlabored. safety precautions in place. call mcknight within reach. plan of care ongoing
[2023-10-03 05:42] VITALS: RESP 14
[2023-10-03 06:00] VITALS: BP 98/67; PULSE 96; RESP 18; TEMP 36.4; O2SAT 98
[2023-10-03] MEDS: oxyCODONE HCl Immed Release 5 MG TABLET PO ×2 (06:30→15:39)
[2023-10-03] MEDS: Omeprazole 20 MG CAPSULE.DR PO (06:30)
[2023-10-03] MEDS: Fluticasone Propionate Nasal 16 GM SPRAY 1 SPRAY NOSTRIL-B (10:16)
[2023-10-03] MEDS: Gabapentin 100 MG CAPSULE 200 MG PO ×2 (10:17→21:30)
[2023-10-03] MEDS: Acetaminophen 325 MG TABLET 650 MG PO ×3 (10:17→21:30)
[2023-10-03] MEDS: amLODIPine Besylate 2.5 MG TABLET PO (10:17)
[2023-10-03] MEDS: Metoprolol Tartrate 25 MG TABLET PO (10:18)
[2023-10-03] MEDS: Apixaban 5 MG TABLET PO ×2 (10:18→21:29)
[2023-10-03] MEDS: LORazepam 0.5 MG TABLET PO ×2 (10:18→21:29)
[2023-10-03] MEDS: Lidocaine 4 % Patch ADH..PATCH 1 PATCH TRANSDERMA (10:19)
[2023-10-03 10:23] VITALS: BP 149/86; PULSE 62
[2023-10-03] MEDS: Divalproex Sodium ER 500 MG TAB.ER.24H PO (11:08)
[2023-10-03] MEDS: Venlafaxine HCl ER 150 MG CAP.ER.24H PO (11:08)
[2023-10-03 14:56] VITALS: BP 104/61; PULSE 57; RESP 18; TEMP 36.4; O2SAT 97
--- NOTE | 2023-10-03 15:40 | PC.NURSE ---
pt reporting severe hip pain. medicated per mar
[2023-10-03] MEDS: Melatonin 3 MG TABLET 9 MG PO (21:29)
[2023-10-03] MEDS: Tamsulosin HCL 0.4 MG CAPSULE PO (21:30)
[2023-10-03 21:32] VITALS: BP 121/70; PULSE 57
[2023-10-03 21:33] VITALS: BP 123/71; PULSE 57; RESP 17; TEMP 36.6; O2SAT 99
[2023-10-03] MEDS: Loperamide HCl 2 MG CAPSULE 4 MG PO (23:29)
[2023-10-04] MEDS: oxyCODONE HCl Immed Release 5 MG TABLET PO (02:42)
[2023-10-04 06:11] VITALS: BP 133/79; PULSE 66; RESP 16; TEMP 36.4; O2SAT 96
[2023-10-04] MEDS: Omeprazole 20 MG CAPSULE.DR PO (06:12)
[2023-10-04] MEDS: Fluticasone Propionate Nasal 16 GM SPRAY 1 SPRAY NOSTRIL-B (08:27)
[2023-10-04] MEDS: Metoprolol Tartrate 25 MG TABLET PO (08:28)
[2023-10-04] MEDS: Acetaminophen 325 MG TABLET 650 MG PO (08:28)
[2023-10-04] MEDS: Apixaban 5 MG TABLET PO (08:28)
[2023-10-04] MEDS: amLODIPine Besylate 2.5 MG TABLET PO (08:29)
[2023-10-04] MEDS: LORazepam 0.5 MG TABLET PO (08:29)
[2023-10-04] MEDS: Venlafaxine HCl ER 150 MG CAP.ER.24H PO (08:29)
[2023-10-04] MEDS: Loratadine 10 MG TABLET PO (08:29)
[2023-10-04] MEDS: Gabapentin 100 MG CAPSULE 200 MG PO (08:29)
[2023-10-04] MEDS: Lidocaine 4 % Patch ADH..PATCH 1 PATCH TRANSDERMA (08:29)
[2023-10-04] MEDS: Divalproex Sodium ER 500 MG TAB.ER.24H PO (08:33)
--- NOTE | 2023-10-04 09:46 | PC.NURSE ---
Alert and oriented, ate well for breakfast, medicated per jun, resting comfortably in bed watching t.v. Patient requesting eye drops d/t itchiness from seasonal allergies provider notified
--- NOTE | 2023-10-04 10:59 | MHC.CM.PN ---
CM MET WITH PATIENT PER HIS REQUEST. PATIENT IS ASKING WHAT THE DC PLAN IS, HE WOULD LIKE TO GO HOME. IT IS SATURDAY AND THINGS MOVE SLOWLY ON THE WEEKEND . PATIENT IS AWARE THAT HE WOULD NEED SERVICES IN THE HOME. HE FEELS HE NEEDS P.T. AND SOME HOME HEALTH AID SERVICES. PATIENT REPORTS I MISS MY FRIEND, YUMIKO, AND I WANT TO GO HOME AND ENJOY COOKING AND GOING TO [place] . CM REACHED OUT TO ADMINISTRATIVE SERVICES SPECIALIST PRACTITIONER TO FIND OUT WHAT NEXT STEP IS FOR PATIENT. T/W TO UPDATE PATIENT INFORMATION IS RECEIVED. RN AWARE OF CONVERSATION.
--- NOTE | 2023-10-04 12:31 | MHC.CM.PN ---
This justowriter operator received call from [facility] @ pt's apartment complex. She was inquiring about pt's d/c plan. She is able to increase home services. Please call when pt is ready for d/c Tammie Siddiqui [phone]
--- NOTE | 2023-10-04 13:28 | MHC.CM.PN ---
PATIENT'S RESIDENT COORDINATOR [facility], INÉS HARRY, IS AWARE THAT PATIENT WILL RETURN HOME TODAY WITH [facility] NOTIFIED OF PATIENT DC. PATIENT HAS ARRANGED FOR TRANSPORTATION HOME. ED P.A. AGREES THAT A 15:30 BITUMINOUS DISTRIBUTOR OPERATOR TIME IS SUFFICIENT TO DC THE PATIENT. RN AWARE
[2023-10-04 14:58] VITALS: BP 125/70; PULSE 70; RESP 18; TEMP 37; O2SAT 98
== END 2023-10-04 15:01 | disposition home or self-care (01) ==
PROVIDERS: Physician Assistant Medical; Registered Nurse Emergency; Social Worker; Emergency Provider Emergency Medicine; PCP Internal Medicine
DX: S80.02XA Contusion of left knee, initial encounter (principal); W07.XXXA Fall from chair, initial encounter; R45.1 Restlessness and agitation; M79.605 Pain in left leg; R41.89 Other symptoms and signs involving cognitive functions and awareness; I10 Essential (primary) hypertension; J45.909 Unspecified asthma, uncomplicated; I48.91 Unspecified atrial fibrillation; F41.1 Generalized anxiety disorder; C61 Malignant neoplasm of prostate; D51.9 Vitamin B12 deficiency anemia, unspecified; K21.9 Gastro-esophageal reflux disease without esophagitis; Z96.642 Presence of left artificial hip joint; Z87.891 Personal history of nicotine dependence; Z86.711 Personal history of pulmonary embolism; Z11.52 Encounter for screening for COVID-19; Y93.89 Activity, other specified; Y92.039 Unspecified place in apartment as the place of occurrence of the external cause; Y99.9 Unspecified external cause status; Z79.01 Long term (current) use of anticoagulants; Z79.899 Other long term (current) drug therapy
CPT/HCPCS: 36415; 70450; 71045; 72125; 73502; 73560; 80053; 81003; 83036; 84484; 85025; 87635; 93005; 96361; 96374; 97161; 97165; 99285; J1170; J3010

== ENCOUNTER → 2023-09-28 20:59 | Outpatient (BNV) | payer MEDICARE, MEDICAID, SELFPAY | PROVIDERS: Emergency Provider Emergency Medicine; PCP Internal Medicine; Visit Provider Social Worker | DX: R41.89 Other symptoms and signs involving cognitive functions and awareness (principal) | CPT/HCPCS: 99285 ==

== ENCOUNTER → 2023-09-28 21:05 | Outpatient (BNV) | payer MEDICARE, MEDICAID, SELFPAY | PROVIDERS: Emergency Provider Emergency Medicine; Visit Provider Internal Medicine | DX: R94.31 Abnormal electrocardiogram [ECG] [EKG] (principal) | CPT/HCPCS: 93010 ==

== ENCOUNTER 2023-10-25 12:49 | Outpatient (AMB) | payer MEDICARE, MEDICAID, SELFPAY ==
[2023-10-25 12:50] VITALS: BP 136/84; BMI 31.1
--- NOTE | 2023-10-25 12:50 | MHC.PC.OV ---
Vital Signs 10/25/23 12:50 Height 6 ft Weight 229 lb 4.492 oz BMI 31.1 BP 136/84 Blood Pressure Location Lt brachial Position Sitting Pulse Source Pulse Oximeter Oxygen Delivery Method Room Air Intake Visit Reasons: ER FOLLOW UP Intake Note: Patient is here to follow-up after a visit the emergency department at [facility] Allergies carisoprodol [From Soma] Allergy (Mild, Verified 10/25/23 13:15) MENTAL STATUS CHANGE, BECOMES AGGRESIVE codeine [Codeine] Allergy (Mild, Verified 10/25/23 13:15) STOMACH UPSET, RASH gabapentin Adverse Reaction (Intermediate, Verified 10/25/23 13:15) lousy feeling Medication List - Last Reconciled 10/25/23 by Debbie Mallory PA-C acetaminophen (Tylenol) 650 mg PO TID acetaminophen (Tylenol) 650 mg PO Q4H PRN amlodipine 2.5 mg PO DAILY apixaban 5 mg PO BID 90 days calcium carbonate 500 mg PO BID PRN cetirizine 10 mg PO DAILY diclofenac sodium 1% 4 grams topical TID divalproex ER 500 mg PO DAILY fluticasone propionate 50 mcg/actuation 1 spray intranasal BID gabapentin 200 mg PO BID lidocaine 4% 1 patch topical DAILY lorazepam 1 tab PO BID lorazepam 1 mg PO DAILY PRN magnesium hydroxide (Milk of Magnesia) 30 mL PO DAILY PRN melatonin 10 mg PO BEDTIME methyl salicylate-menthol 1 appl topical BID metoprolol tartrate 25 mg See Protocol PO BID naloxone 4 mg/actuation (Narcan) 4 mg intranasal Q3M PRN oxycodone 5 mg PO TID PRN pantoprazole 40 mg PO DAILY polyethylene glycol 3350 (Miralax) 17 grams PO DAILY PRN simethicone 80 mg PO Q8H PRN syringe with needle, safety (BD Safety-Jackie Detachable Needle) As directed tamsulosin (Flomax) 0.4 mg PO BEDTIME venlafaxine ER 150 mg PO DAILY Tobacco use date assessed: 10/25/23 Fall risk assessment: 1 Fall in past year Last assessed Fall Risk: 10/25/23 HPI ER FOLLOW UP HPI Details 78 year old male with history of GERD, hypertension, cervical and lumbar degenerative disc disease, history of prostate cancer followed up by Urology, history of pulmonary embolism on anticoagulation, generalized anxiety disorder, asthma, and atrial fibrillation, patient of Dr. Almaraz last seen by Kristine February 2022 coming in for hospital discharge follow up. Patient seen in the emergency department 09/29/23 for left hip pain after a mechanical fall at home.? Patient was transferring from wheelchair to bed and reported passing out.? Chest x-ray, hip x-ray, knee x-ray all negative.? CT did not show any intracranial abnormalities or any fractures within the cervical spine.? Patient remained in the emergency department for observation, needed to be chemically restrained with Haldol and Benadryl along with pain management.? Patient remained in observation until 10/04/23 and was seen by Psychiatry, started on Ativan BID, and physical therapy.? Was discharged home with VNA services. Patient has been feeling better after the fall with no reports of repeated falls or syncope and no acute concerns. Shoulder and hip pain have improved since the fall. Reports minor scrapes and bruises which are still present after the fall. Patient reports limited mobility before and after the fall, primarily uses wheelchair to get around. Patient was being seen by [facility] and was being treated with oxycodone 5 mg twice a day for back pain. Patient reports increased chronic back pain without this medication and is looking to have it refilled. [facility] Medical History (Updated 10/25/23 @ 13:53 by Debbie Mallory PA-C) Incisional hernia Premature atrial complexes Shortness of breath Rash Asthma exacerbation Leukocytosis Serum potassium elevated Low vitamin D level Headache Fatigue Moderate recurrent major depression Hospital discharge follow-up Chest tightness Dyspnea on exertion Allergic bronchitis Generalized anxiety disorder Tinea cruris SOB (shortness of breath) on exertion Constipation Atrial fibrillation Knee fracture, left Wedge compression fracture of L1 vertebra Prostate cancer Iron deficiency anemia Obstructive sleep apnea Vitamin D deficiency Diverticular disease Obesity (BMI 30-39.9) Peptic ulcer disease Degenerative disc disease GERD (gastroesophageal reflux disease) Anxiety and depression Vitamin B12 deficiency Gout Hypertension Fatigue Dysuria Surgical History History of colonoscopy History of hemiarthroplasty of left hip H/O rectal polypectomy History of knee replacement procedure of left knee H/O hernia repair History of pyloroplasty History of bowel resection History of cholecystectomy Family History Father Diabetes Acute kidney failure Glaucoma Mother Lung cancer Social History Household Members: None Housing: Apartment Do you presently have visiting nurse or other home services: No Alcohol intake: never Comment: sitter at bedside Patient Tobacco Use Status: Former Tobacco user Tobacco use type: Cigar e-Cigarette/Vaping Use: Currently Using Second Hand Smoke Exposure: No Advance Directives Date on File: 07/03/22 service: No Current occupational status: retired Cognitive needs: No Hearing needs: Yes Vision needs: Yes Questionnaire Thrive Questionnaire Date Thrive assessed: 03/08/22 MARIZA-7 AMB Questionnaire MARIZA-7 Date MARIZA - 7 assessed: 11/23/21 Source: Developed by Drs. Víctor Srivastava, [place]ly [place], Shorty Jorge and colleagues, with an educational bronson from [employer]. Review of Systems Const Denies body aches, Denies fatigue, Denies fever(s) and Denies weakness Eyes Reports no additional complaints ENT Reports no additional complaints and Denies dizziness Card Denies chest pain, Denies syncope, Denies rapid heart rate, Denies edema, Denies leg edema, Denies palpitations, Denies dyspnea and Denies dyspnea on exertion Resp Denies dyspnea and Denies dyspnea on exertion GI Reports no additional complaints Reports no additional complaints Musc Details: Patient reporting chronic low back pain without radiation. Denies any shoulder pain, hip pain or knee pain at this moment. Skin/Breast Details: Patient reports healing skin tears and easy bruising. Neuro Denies dizziness, Denies syncope, Denies lack of coordination and Denies weakness Psych Reports no additional complaints Endo Denies fatigue and Denies palpitations Thuan/Lymph Reports easy bruising Physical exam (Primary Care) Vital Signs: Oxygen Delivery Method Room Air 10/25/23 12:50 Tobacco/Smoking Status: Tobacco use Status Tobacco use date assessed 03/08/22 10/25/23 12:51 Patient Tobacco Use Status Former Tobacco user 10/25/23 12:51 Tobacco use type Cigar 10/25/23 12:51 e-Cigarette/Vaping Use Currently Using 10/25/23 12:51 Thrive Assessment: Date of Thrive Assessment Date Thrive assessed 03/08/22 10/25/23 12:51 Const General: cooperative, healthy appearing and no acute distress Orientation/consciousness: patient oriented x3 HENMT Head: Yes normal to inspection Eyes General: appearance normal, both eyes and all related structures Neck Neck: Yes normal visual inspection Chest Chest palpation & inspection: normal inspection of the chest Resp Effort & Inspection: normal respiratory effort and no cough Auscultation: clear to auscultation bilaterally, no crackles, no rales, no rhonchi and no wheezes Cardio Rate: regular rate Rhythm: regular rhythm Heart sounds: S1 normal heart sound present and S2 normal heart sound present Peripheral pulses: radial pulses present Back/Spine/Pelvis Other: Patient denied back exam. Stated palpation will aggravate the back pain. Skin General skin exam: no rashes or lesions noted Neuro General: patient oriented x3 Extrem General: Yes normal to inspection and No edema Psych Appearance: grossly normal Speech and movement: Normal speech and movement present Attitude: cooperative Assessment and Plan Assessment & Plan (1) Chronic low back pain: Code(s): M54.50 - Low back pain, unspecified; G89.29 - Other chronic pain Qualifiers: Back pain laterality: unspecified Sciatica presence: unspecified whether sciatica present Qualified Code(s): M54.50 - Low back pain, unspecified; G89.29 - Other chronic pain Plan: Patient has chronic low back pain and is followed by pain management for this issue. He will follow up with them in October and hoping to have another injection. Requesting oxycodone for back pain as he was given this by the rehab center, informed patient he would have to reach out to [facility] to have them refill or communicate care goals with us. In the meantime patient advised to use Tylenol, Voltaren, and lidocaine patches as needed for back pain. (2) Shoulder pain: Code(s): M25.519 - Pain in unspecified shoulder Qualifiers: Chronicity: chronic Laterality: bilateral Qualified Code(s): M25.511 - Pain in right shoulder; M25.512 - Pain in left shoulder; G89.29 - Other chronic pain Plan: Patient has chronic shoulder pain bilaterally, but denies any pain today. Right shoulder was exacerbated by recent mechanical fall. He will follow up with [facility] orthopedics within the next few months and is hoping to have bilateral cortisone injection as these have helped in the past. Plan Thank you for allowing me to participate in the care of this patient. I personally spent 40 minutes reviewing, examining and charting on this patient. Coding Level of Care Code Est Pt Level 4 (25486) Diagnoses Chronic low back pain, unspecified back pain laterality, unspecified whether sciatica present M54.50; G89.29 Back pain laterality: unspecified Sciatica presence: unspecified whether sciatica present Chronic pain of both shoulders M25.511; M25.512; G89.29 Chronicity: chronic Laterality: bilateral
== END 2023-10-25 13:35 | disposition home or self-care (01) ==
PROVIDERS: PCP Internal Medicine
DX: M54.50 Low back pain, unspecified (principal); M25.511 Pain in right shoulder; M25.512 Pain in left shoulder
CPT/HCPCS: 99215

== ENCOUNTER 2023-11-08 22:25 | Emergency (ER) | payer MEDICARE, MEDICAID, SELFPAY ==
--- NOTE | 2023-11-08 | ECG_ITS ---
Test Reason : FALL Blood Pressure : / mmHG Vent. Rate : 108 BPM Atrial Rate : 108 BPM P-R Int : 208 ms QRS Dur : 094 ms QT Int : 344 ms P-R-T Axes : 000 027 060 degrees QTc Int : 460 ms Sinus tachycardia with Premature supraventricular complexes Possible Anterolateral infarct , age undetermined Abnormal ECG No previous ECGs available Referred By: Generic ED Physician Electronically Signed By:Reynold Ybarra
--- NOTE | ~2023-11-08 | XR_ITS ---
EXAMINATION: XR TOES, RIGHT CLINICAL INFORMATION: Right great toe swelling COMPARISON: None available. TECHNIQUE: 4 views of the right toes were obtained. FINDINGS: Postoperative changes are seen with K wire and screw in the mid to distal aspect of the second metatarsal. Degenerative changes seen more so at the first interphalangeal joint space I do not appreciate any acute fracture or dislocation. Mild soft tissue swelling about the first toe XR/XR toe RT min 2V IMPRESSION: Chronic appearing and postoperative changes as described with degenerative changes more so at the first interphalangeal joint space. No acute fracture or dislocation seen.
--- NOTE | ~2023-11-08 | CT_ITS ---
EXAMINATION: CT HEAD WITHOUT CONTRAST CT CERVICAL SPINE WITHOUT CONTRAST CLINICAL INFORMATION: Fall. Pain. COMPARISON: 09/28/2023 TECHNIQUE: Contiguous axial imaging was performed through the head and cervical spine without intravenous administration of contrast. Sagittal and coronal reformatted images also obtained. This CT examination was performed using dose optimization techniques as appropriate, variously including the following: *Automated exposure control *Adjustment of mA and/or kV according to patient size (this includes techniques or standardized protocols for targeted exams where dose is matched to indication/reason for exam; i.e. extremities or head) *Use of iterative reconstruction technique DLP: 1366 mGy-cm FINDINGS: There is is cerebral volume loss with prominence of the lateral and the third ventricles. The cortical sulci are widened appropriately. The fourth ventricle and basal cisterns are normally outlined. There is mild to moderate bilateral periventricular and central white matter diminished attenuation. There is no acute territorial defect, hemorrhage or midline shift. The extra-axial spaces are unremarkable. Calvarium/scalp: Intact. Maxillofacial sinuses and mastoids: Clear as visualized. Cervical spine: The alignment is within normal limits. There is diffuse zknj-ht-xrbhqris cervical disc degenerative change with loss of disc space, endplate change and posterior osteophytes associated with diffuse ofio-at-xmopzeph facet osteoarthritic hypertrophic change with multilevel mild spinal canal and neuroforaminal narrowing. The bony structures are osteopenic. There is a mild T1 compression deformity which was seen on prior study. The soft tissues are unremarkable. Visualized upper lung colbert are clear.. CT/CT cervical spine wo IV con IMPRESSION: 1. No acute intracranial process seen. 2. Age-related cerebral volume loss with chronic small vessel ischemic changes. 3. No acute cervical spine process seen.
--- NOTE | ~2023-11-08 | CT_ITS ---
EXAMINATION: CT HEAD WITHOUT CONTRAST CT CERVICAL SPINE WITHOUT CONTRAST CLINICAL INFORMATION: Fall. Pain. COMPARISON: 09/28/2023 TECHNIQUE: Contiguous axial imaging was performed through the head and cervical spine without intravenous administration of contrast. Sagittal and coronal reformatted images also obtained. This CT examination was performed using dose optimization techniques as appropriate, variously including the following: *Automated exposure control *Adjustment of mA and/or kV according to patient size (this includes techniques or standardized protocols for targeted exams where dose is matched to indication/reason for exam; i.e. extremities or head) *Use of iterative reconstruction technique DLP: 1366 mGy-cm FINDINGS: There is is cerebral volume loss with prominence of the lateral and the third ventricles. The cortical sulci are widened appropriately. The fourth ventricle and basal cisterns are normally outlined. There is mild to moderate bilateral periventricular and central white matter diminished attenuation. There is no acute territorial defect, hemorrhage or midline shift. The extra-axial spaces are unremarkable. Calvarium/scalp: Intact. Maxillofacial sinuses and mastoids: Clear as visualized. Cervical spine: The alignment is within normal limits. There is diffuse uwxc-zy-kuyhijky cervical disc degenerative change with loss of disc space, endplate change and posterior osteophytes associated with diffuse fdcw-tp-noggjass facet osteoarthritic hypertrophic change with multilevel mild spinal canal and neuroforaminal narrowing. The bony structures are osteopenic. There is a mild T1 compression deformity which was seen on prior study. The soft tissues are unremarkable. Visualized upper lung colbert are clear.. CT/CT head/brain wo IV con IMPRESSION: 1. No acute intracranial process seen. 2. Age-related cerebral volume loss with chronic small vessel ischemic changes. 3. No acute cervical spine process seen.
--- NOTE | ~2023-11-08 | XR_ITS ---
EXAMINATION: XR CHEST CLINICAL INFORMATION: Fall. COMPARISON: 09/28/2023. TECHNIQUE: Frontal view of the chest was obtained. FINDINGS: The lung volumes are low and the patient is rotated. The cardiomediastinal silhouette is stable. There is lower lung field increased markings. There is no focal lung consolidation or pleural effusions. The bony structures are unremarkable. Soft tissues are also unremarkable. XR/XR chest 1V IMPRESSION: Low lung volumes. Lower lung field increased markings which could represent atelectasis or vascular crowding secondary to low lung volumes. No other significant abnormality seen.
[2023-11-08 22:31] VITALS: BP 152/102; PULSE 99; O2SAT 95
[2023-11-08 22:35] VITALS: BP 131/81; PULSE 98; RESP 18; TEMP 36.8; O2SAT 94; BMI 31.0
[2023-11-08 22:51] VITALS: BP 131/81; PULSE 98; RESP 18; TEMP 36.8; O2SAT 94
--- NOTE | 2023-11-08 22:52 | MHC.EDTECH ---
at this time pt changed over into hospital gown and placed on a library monitor, pt stated that he is sometimes incontinent of urine and a condom catheter was placed on him, tolerated condom cath placement well
--- NOTE | 2023-11-09 00:24 | ECG_ITS ---
Test Reason : FALL Blood Pressure : / mmHG Vent. Rate : 115 BPM Atrial Rate : 000 BPM P-R Int : 000 ms QRS Dur : 088 ms QT Int : 318 ms P-R-T Axes : 000 034 053 degrees QTc Int : 439 ms Sinus tachycardia with frequent PACs Cannot rule out lateral infarct Abnormal ECG When compared with ECG of 08-NOV-2023 22:59, No significant changes seen Referred By: Alma Delia Phillips Electronically Signed By:Reynold Ybarra
--- NOTE | 2023-11-09 00:28 | PC.NURSE ---
at bedside for primary eval. removing cervical collar. IV established by this RN.
--- NOTE | 2023-11-09 00:32 | ED.FALL ---
HPI - Fall General Chief Complaint: Fall Stated Complaint: fall, +thinners Time Seen by Provider: 11/09/23 00:24 Source: patient and EMS Mode of arrival: ambulatory Limitations: no limitations History of Present Illness ED Provider: Dr. Alma Delia Phillips HPI Narrative: Patient comes to the emergency room via ambulance after sustaining a fall. Patient states that he has a bed at home that is too tall for him, patient was trying to get out of bed and fell. Patient states that he has no pain at all. However, patient is on blood thinners and decided to come to get checked out. Patient denies headache, no chest pain or shortness of breath. Initially, patient was complaining of neck pain and back pain. However, patient states that the reason he was complaining of pain was the C-collar, not because of the fall. Patient complaining of minor abrasions to the extremities. Patient states that he lives home alone. Related Data Allergies Allergy/AdvReac Type Severity Reaction Status Date / Time No Known Allergies Allergy Verified 11/08/23 22:49 Review of Systems Review of Systems: Constitutional : No Weight loss, No Fever, No Chills, No Night Sweats, No Fatigue, No Malaise ENT/Mouth : No Hearing loss, No Ear Pain, No Nasal Congestion, No Sinus Pain, No Hoarseness, No sore throat, No Rhinorrhea, No Swallowing Difficulty Eyes: No Eye Pain, No Swelling, No Redness, No Foreign Body, No Discharge, No Vision Changes Cardiovascular : No Chest Pain, No SOB, No Dyspnea on Exertion, No Orthopnea, No Edema, No Palpitations Respiratory : No Cough, No Sputum, No Wheezing, No Smoke Exposure, No Dyspnea Gastrointestinal : No Nausea, No Vomiting, No Diarrhea, No Constipation, No abdominal Pain, No Hematochezia, No Melena Genitourinary : no irregular bleeding, No Dysuria, No Urinary Frequency, No Hematuria, No Urinary Incontinence, No Urgency, No Flank Pain, No Urinary Flow Changes, No Hesitancy Musculoskeletal : No joint pain, No Myalgias, No Joint Swelling Skin : Complaining of multiple abrasions Neuro : No Weakness, No Numbness, No Paresthesias, No Loss of Consciousness, No Dizziness, No Headache Psych : No Anxiety/Panic, No Depression, No SI/HI/AH/VH, No Social Issues, Heme/Lymph: No Bruising, No Bleeding,No Lymphadenopathy Endocrine : No Polyuria, No Polydipsia, No Temperature Intolerance PMFSH Social History Social History Smoked in Last 30 Days: No Use of substances other than those prescribed or required for medical reasons: No Advance Directives: Yes Advance Directives on File: Yes Advance Directives Date on File: 07/03/22 Physical Exam Vital Signs: Vital Signs: Last Vital Signs Temp 98.2 F 11/09/23 00:35 Pulse 122 H 11/09/23 03:08 Resp 17 11/09/23 03:08 BP 123/88 11/09/23 03:08 Pulse Ox 95 11/09/23 03:08 O2 Del Method Room Air 11/09/23 03:08 BMI result Body Mass Index 31.0 Const: Other: Appearance: Alert. Oriented X3. No acute distress. Eyes: Pupils equal, round and reactive to light. ENT: Pharynx normal. Hard of hearing Neck: Patient C-spine, no palpable step-offs, no cervical spine tenderness. CVS: Normal heart rate and rhythm. Pulses normal. Normal S1 and S2 Respiratory: No respiratory distress. Breath sounds normal. No Wheezing. No rales Abdomen: Soft and nontender. No rigidity. No distention. Skin: Patient has multiple abrasions and ecchymosis in forearms, patient is on blood thinners. Extremities: No lower extremity edema. No Lacerations. No Rash. Patient able to flex and extend all extremities, upper and lower and hips. Neuro: Oriented X 3. No motor deficit. No sensory deficit. Moving all extremities. No slurred speech. CN 2 through 12 grossly intact Psych: calm, cooperative, normal affect Course Course Course Narrative: -all of patient's labs and imaging pending. -patient is awake, alert and oriented x3 -vitals stable, blood pressure 131/81, heart rate 98, oxygen saturation 94% on room air. Medications Administered Discontinued Medications Generic Name Dose Route Start Last Admin Trade Name Freq PRN Reason Stop Dose Admin Acetaminophen 650 mg 11/09/23 02:54 11/09/23 03:03 Acetaminophen 325 Mg Tablet PO 11/09/23 02:55 650 mg ONCE ONE Administration Lorazepam 2 mg 11/09/23 01:42 11/09/23 01:49 Lorazepam 2 Mg/Ml Vial IVPUSH 11/09/23 01:43 2 mg ONCE ONE Administration Metoprolol Tartrate 2.5 mg 11/09/23 02:53 11/09/23 03:02 Metoprolol Tartrate 5 Mg/5 Ml Vial IVPUSH 11/09/23 02:54 2.5 mg ONCE ONE Administration Protocol Olanzapine 10 mg 11/09/23 01:42 11/09/23 01:49 Olanzapine 10 Mg Vial IM 11/09/23 01:43 10 mg STAT STA Administration Medical Decision Making Medical Decision Making [facility] Narrative: My interpretation of labs: White blood cell count 13.0, chemistry within normal limits , anemic with a hemoglobin of 9.7 LFTs normal, troponin negative, EtOH negative, COVID negative -my interpretation of chest x-ray: No obvious abnormality -patient's heart rate has been between [id number], patient has AFib. Is likely the patient has not been taking his medications. -of note, this patient's chart will be merged with the patient's actual chart tomorrow morning. Reviewed patient's previous chart, patient takes metoprolol at home. 2.5 mg of metoprolol IV were given to the patient. -urinalysis negative for UTI -head CT and cervical spine CT do not show any acute abnormality. -patient is coming from home. I do not think that patient would be safe at home by himself. We will get a case management PT consult. -earlier today, patient was trying to get off bed, nearly falling, getting naked, throwing his clothes, patient was given a dose of Ativan and Zyprexa. Patient went to sleep. However after 2 hours patient woke up and started becoming combative, trying to get out of bed, nearly falling again. Patient not taking p.o. medications, patient was given 20 mg IM of Geodon. Patient will need PT case management consult. -physician observation started at 03:30 Differential Diagnosis Differential Diagnoses: The differential diagnosis associated with the presentation includes (Mechanical fall, UTI, dementia) Lab Data [facility] Lab Attestation statement: I reviewed the patient's lab results. 11/09/23 00:51 11/09/23 00:51 Labs: Lab Results 11/09/23 11/09/23 11/09/23 Range/Units 00:51 00:52 03:16 WBC 13.2 H (4.8-10.8) X10*3/uL RBC 4.00 L (4.60-5.80) X10*6/uL Hgb 9.7 L (14.0-18.0) g/dl Hct 31.1 L (42.0-52.0) % MCV 77.8 L (80.0-98.0) fL MCH 24.3 L (27.0-33.0) pg MCHC 31.2 (31.0-36.0) g/dl RDW 16.6 H (11.0-16.0) % Plt Count 299 (160-400) X10*3/uL MPV 10.5 (9.4-12.4) fL Immature Gran % (Auto) 0.5 H (0.0-0.4) % Neut % (Auto) 68.8 (45-73) % Lymph % (Auto) 18.7 L (20-40) % [place] % (Auto) 10.8 (2-11) % Eos % (Auto) 0.5 (0-4) % Baso % (Auto) 0.7 (0-2) % Lymph # (Auto) 2.5 (1.2-4.9) X10*3/uL [place] # (Auto) 1.4 H (0.1-1.2) X10*3/uL Eos # (Auto) 0.1 (0.0-0.4) X10*3/uL Baso # (Auto) 0.1 (0.0-0.2) X10*3/uL Abs Immat Gran (auto) 0.07 H (0.00-0.03) X10*3/uL Absolute Neuts (auto) 9.1 H (2.0-8.3) x10*3/uL Absolute Nucleated RBC 0.000 (0.0-0.012) X10*3/uL Nucleated RBC % (auto) 0.0 (0.0-0.2) /100WBC PT 13.2 (11.1-13.3) SEC INR 1.1 (0.9-1.1) Sodium 136 (135-145) mmol/L Potassium 3.4 (3.3-5.1) mmol/L Chloride 105 (96-108) mmol/L Carbon Dioxide 19 L (22-29) mmol/L Anion Gap 15 (12-20) BUN 21 H (9-16) mg/dL Creatinine 0.87 (0.5-1.4) mg/dL Estim Creat Clear Calc 88.5 Estimated GFR > 60 Random Glucose 99 (60-115) mg/dL Calcium 9.0 (8.4-10.2) mg/dL Magnesium 2.0 (1.6-2.6) mg/dL Total Bilirubin 0.5 (0.0-1.0) mg/dL Direct Bilirubin 0.2 (0.0-0.5) mg/dL AST 27 (5-37) U/L ALT 14 (0-40) U/L Alkaline Phosphatase 86 (39-117) U/L Troponin I High Sens 5.8 (<3.5-35.0) ng/L Total Protein 6.7 (6.5-8.0) g/dL Albumin 3.8 (3.5-5.0) g/dL Urine Color Yellow Urine Appearance Clear Urine pH 6.0 (5.0-9.0) Ur Specific [place] 1.010 (1.005-1.025) Urine Protein Negative (Neg-Trace) mg/dL Urine Glucose (UA) Negative (Negative) mg/dL Urine Ketones 15 (Negative) mg/dL Urine Blood Negative (Negative) Urine Nitrite Negative (Negative) Ur Leukocyte Esterase Negative (Negative) Urine Opiates Screen Not Detected (Not Detect) Ur Buprenorphine Scrn Not Detected (Not Detect) ng/mL Ur Oxycodone Screen Not Detected (Not Detect) ng/mL Urine Methadone Screen Not Detected (Not Detect) ng/mL Urine Fentanyl Screen POSITIVE H (Not Detect) Ur Barbiturates Screen Not Detected (Not Detect) Ur Phencyclidine Scrn Not Detected (Not Detect) Ur Amphetamines Screen Not Detected (Not Detect) U Benzodiazepines Scrn Not Detected (Not Detect) Urine Cocaine Screen Not Detected (Not Detect) U Marijuana (THC) Screen Not Detected (Not Detect) Ethyl Alcohol < 10 mg/dL COVID-19 (MAGY) Negative (Negative) COVID-19 Clin Com See Note Independent Interpretation I performed an independent interpretation of an: CT Scan Radiology Impression Discussion of test interpretation with radiology: I have reviewed the radiologist's reading. Radiologist Impression: FINDINGS: The lung volumes are low and the patient is rotated. The cardiomediastinal silhouette is stable. There is lower lung field increased markings. There is no focal lung consolidation or pleural effusions. The bony structures are unremarkable. Soft tissues are also unremarkable. XR/XR chest 1V IMPRESSION: Low lung volumes. Lower lung field increased markings which could represent atelectasis or vascular crowding secondary to low lung volumes. No other significant abnormality seen. FINDINGS: There is is cerebral volume loss with prominence of the lateral and the third ventricles. The cortical sulci are widened appropriately. The fourth ventricle and basal cisterns are normally outlined. There is mild to moderate bilateral periventricular and central white matter diminished attenuation. There is no acute territorial defect, hemorrhage or midline shift. The extra-axial spaces are unremarkable. Calvarium/scalp: Intact. Maxillofacial sinuses and mastoids: Clear as visualized. Cervical spine: The alignment is within normal limits. There is diffuse [id number] cervical disc degenerative change with loss of disc space, endplate change and posterior osteophytes associated with diffuse [id number] facet osteoarthritic hypertrophic change with multilevel mild spinal canal and neuroforaminal narrowing. The bony structures are osteopenic. There is a mild T1 compression deformity which was seen on prior study. The soft tissues are unremarkable. Visualized upper lung colbert are clear.. CT/CT cervical spine wo IV con IMPRESSION: 1. No acute intracranial process seen. 2. Age-related cerebral volume loss with chronic small vessel ischemic changes. 3. No acute cervical spine process seen Critical Care Time Critical Care Time Critical Care Time: Yes Total Critical Care Time: 60 Attestation: I have personally provided critical care time. Time includes review of lab data, radiology results, discussion with consultants, and monitoring for potential decompensation. Intervention performed as documented. Discharge Plan Discharge Clinical Impression: Fall, Gait instability Patient Disposition: Still a Patient Print Language: Swedish
[2023-11-09 00:35] VITALS: BP 128/66; PULSE 106; RESP 16; TEMP 36.8; O2SAT 97
--- OUTSIDE RECORDS SUMMARY | 2023-11-09 00:37 | XMS_ITS | Continuity of Care Document ---
Author Organization [facility] Address [address] [place] [id number] Care Team Providers Care Golf Technician Name Role Phone Po Thania FALK Primary Care Physician [phone] Encounter [facility] Date(s): 03/10/21 - 04/09/21 [facility] [address] [place] [phone] Allergies, Adverse Reactions, Alerts Substance Reaction Severity Status codeine GI upset Active aspirin Active hydrochlorothiazide Active Soma mood changes Active Topamax bilateral hand shaking Activ e nonsteroidal anti-inflammatory agents 1 Active 1dumping syndrome Immunizations Not Given Vaccine Date Status Refusal Reason pneumococcal 13-valent vaccine 11/23/19 Not Given Patient Refuses Medications acetaminophen/butalbital/caffeine 325 mg-50 mg-40 mg oral tablet TAKE 1 TABLET BY MOUTH NEEDED AT BEDTIME Start Date: 03/03/20 Status: Ordered alfuzosin 10 mg oral tablet, extended release 1 tablet = 10 mg, By Mouth, Daily, # 30 tablet, 0 Refills, Maintenance, 12/19/19 12:50:00 EDT, ER Tablet Start Date: 12/19/19 Status: Ordered amLODIPine 10 mg oral tablet 5 mg, 0.5, tablet, By Mouth, Daily, Refills 0, Maintenance, 11/27/19 16:23:00 EDT Start Date: 11/27/19 Status: Ordered apixaban 5 mg oral tablet 1 tablet = 5 mg, By Mouth, 2 times a day, # 60 tablet, 4 Refills, Maintenance, 02/17/20 13:49:00 EDT, Tablet, [facility], 187, cm, 02/17/20 11:58:00 EDT, Height, 102, kg, 02/12/20 12:29:00 EDT, Dry Weight Start Date: 02/17/20 Status: Ordered ascorbic acid 500 mg oral tablet 1 tablet = 500 mg, By Mouth, Daily, # 30 tablet, 0 Refills, Maintenance, 07/28/20 14:50:00 EDT, Tablet, Partial fill upon patient request if the prescription is for a schedule II opioid drug. Start Date: 07/28/20 Status: Ordered Jose Maria-Emu Super Strength topical cream Topically, 0 Refills, Maintenance, 11/10/20 9:48:00 EDT, Partial fill upon patient request if the prescription is for a schedule II opioid drug. Start Date: 11/10/20 Status: Ordered Colace Capsule 100 mg, 1, capsule, By Mouth, 2 times a day, Refills 0, Maintenance, 11/16/19 9:33:00 EDT Start Date: 11/16/19 Status: Ordered Controlled Substance Agreement Controlled Substance Agreement, See Instructions, # 1 each, Refills 0, Tot. Refills 0, Maintenance,Updated On: 07/28/2020 Pharmacy I: [facility] DX: M54.4 mechanical low back pain, M53.3 SI joint pain, 08/02/20 9:14:00 EDT, Supply Start Date: 08/02/20 Status: Ordered cyanocobalamin 1000 mcg/ml injectable solution INJECT 1000 MCG. SUBCUTANEOUSLY EVERY 4 WEEKS. Start Date: 05/12/20 Status: Ordered divalproex sodium 500 mg oral enteric coated tablet TAKE ONE TABLET BY MOUTH EVERY EVENING Start Date: 12/26/20 Status: Ordered ferrous sulfate 325 mg oral tablet 1 tablet = 325 mg, By Mouth, Daily, # 90 tablet, 0 Refills, Maintenance, 07/28/20 14:50:00 EDT, Tablet, Partial fill upon patient request if the prescription is for a schedule II opioid drug. Start Date: 07/28/20 Status: Ordered fexofenadine 180 mg oral tablet TAKE 1 TABLET BY MOUTH ONCE A DAY NEEDED.. Start Date: 03/03/20 Status: Ordered LORazepam 1 mg oral tablet TAKE ONE TABLET BY MOUTH TWICE A DAY AND TAKE HALF OF A TABLET TO 1 TABLET NEEDED Start Date: 01/12/21 Status: Ordered meclizine 12.5 mg oral tablet TAKE TWO TABLETS BY MOUTH FOUR TIMES A DAY FOR 3 DAYS THEN 1 TO 2 TABLETS NEEDED NAUSEA/VERTIGO Start Date: 12/26/20 Status: Ordered omeprazole 40 mg oral enteric coated capsule 1 capsule = 40 mg, By Mouth, Daily, # 30 capsule, 0 Refills, Maintenance, 12/19/19 12:47:00 EDT, ECCapsule Start Date: 12/19/19 Status: Ordered senna 187 mg oral tablet 1 tablet = 8.6 mg, By Mouth, Daily at bedtime, 0 Refills, Maintenance, 11/16/19 9:33:00 EDT, Tablet Start Date: 11/16/19 Status: Ordered traZODone 50 mg oral tablet TAKE 1 TO 2 TABLETS BY MOUTH AT BEDTIME NEEDED Start Date: 01/12/21 Status: Ordered venlafaxine 150 mg oral capsule, extended release TAKE ONE CAPSULE BY MOUTH EVERY DAY Start Date: 01/12/21 Status: Ordered Problem List Condition Effective Dates Status Health Status Inform ant Abdominal hernia, ventral(Confirmed) Active Hammer toes, acquired, of alondra th feet(Confirmed) Active Anemia following surgery(Confirmed) Active Abdominal pain, central, infraumbilical(Confirmed) Active Headache, cervicogenic(Confirmed) Active Status post cholecystectomy(Confirmed) Active ; Delayed gastric emptying(Confirmed) Active Neuropathy, peripheral, in t he distribution of the lat. fem. cut nerve bilaterally(Confirmed) Active Drug interaction(Confirmed) 1 Active Decreased range of motion of shoulders(Confirmed) Active Anxiety, generalized(Confirmed) Active History of gout(Confirmed) Active History of pulmonary embolis m documented on CT angio 12/19/19(Confirmed) Active Status post hand surgery rig ht TM joint(Confirmed) 2 03/29/15 Active Status post hand surgery; ri ght TM joint repining(Confirmed) 3 04/12/15 Active Status post hammer toe corre ction, right(Confirmed) Active Status post hand surgery(Confirmed) 4 07/03/16 Active History of vertigo(Confirmed) Active Hearing deficit(Confirmed) Active Hip pain, left(Confirmed) Active Hip pain, right(Confirmed) Active Status post left hip replace ment 04/09/17(Confirmed) 5 04/09/17 Active Status post total hip arthro plasty; 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/19(Confirmed) 6 11/13/19 Active Status post total knee repla cement, left(Confirmed) 04/14/01 Active Hypertension(Confirmed) Active Hypothyroidism(Confirmed) Active Knee pain, right(Confirmed) Active Knee pain, left(Confirmed) Active Kyphoscoliosis with concavit y to left(Confirmed) Active Limitation due to disability(Confirmed) 7, 8, 9, 10, 11 Active Lumbar radiculopathy, chroni c, S1 left(Confirmed) Active Mechanical low back pain(Confirmed) Active Meralgia paresthetica, bilateral(Confirmed) Active Myofascial pain, regional(Confirmed) Active Nausea(Confirmed) Active Neck pain, mechanical(Confirmed) Active History of transcranial magn etic stimulation(Confirmed) Active Depression, major, recurrent , in partial remission(Confirmed) Active Status post repair of hernia of abdominal wall(Confirmed) 12 Active ; Biceps tendon rupture, proximal(Confirmed) Active Sacral back pain(Confirmed) Active Sacroiliac joint pain(Confirmed) Active Risk assessment: Adverse Chi ldhood Experience(Confirmed) 13 Active Obesity due to excess calories(Confirmed) Active Spinal stenosis of lumbar region(Confirmed) Active Heart murmur, systolic(Confirmed) Active Status post vagotomy(Confirmed) 1968 Active ; 1h/o myositis ; history of antidepressant and opioid co-treatment; h/o total CK >310. 2On 03/29/2015 underwent debridement of failed TM joint arthroplasty right thumb; APL tendon transfer (partial tendon); palm for failed trapeziometacarpal joint arthroplasty right thumb by Fred Turk M.D. at [facility]. 3On 04/12/2015 underwent repining trapeziometacarpal joint reconstruction, right thumb status post revision trapeziometacarpal joint arthroplasty, right thumb, with loss of pin fixation by Fred Turk M.D. at [facility]. 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 at [facility]. 5On04/09/17 underwent left hip replacement for left hip fracture by Jos Locke at [facility] 6On 11/13/19 underwent revision hemiarthroplasty with conversion to total hip arthroplasty for left hip femoral component aseptic loosening by Elijah Stover MD at [facility] 7Updated Oswestry Disability Index: 47% (21/45; severe disability ) on 03/03/20; updated [place] Back[place] Disability Scale score: 4 on 03/03/20. 8Updated Oswestry Disability Index: 40% moderate disability and [place] Back Pain Disability Scale:27 on 10/08/18. 9Updated Oswestry Disability Index: 50% ( severe disability ) on 07/29/17; updated [place] Back Pain Disability Scale score: 52 on 07/29/17. 10Updated Oswestry Disability Index: 36% moderate disability and [place] Back Pain Disability Scale:24 on 08/25/2015. 11Initial [place] Back Pain Disability Scale: 27 on 03/12/2012; initial Oswestry Disability Index: 54%( severe disability ) on 03/12/2012. 12multiple surgeries--first in 1998 13ACE score 6 on 07/29/17 Social History Social History Type Response Smoking Status Former smoker; Other : quit 35 years ago; entered on: 11/11/17 Sex Male
--- OUTSIDE RECORDS SUMMARY | 2023-11-09 00:37 | XMS_ITS | Continuity of Care Document ---
Author Organization [facility] Address [address] [place] [address]- Care Team Providers Care Student Admissions Clerk Name Role Phone Wojciech FALK, Ayo Primary Care Physician [phone] Encounter [facility] [place](s): 12/03/19 - 01/20/20 [facility] [address] [place] [address]- [facility] Attending Physician: Latrice Samuels MD, Trung Burnett Admitting Physician: Trung Pollard Jr, MD Referring Physician: Thania Almaraz MD Allergies, Adverse Reactions, Alerts Substance Reaction Severity Status codeine GI upset Active aspirin Active hydrochlorothiazide Active Soma mood changes Active Topamax bilateral hand shaking Activ e nonsteroidal anti-inflammatory agents 1 Active 1dumping syndrome Immunizations Not Given Vaccine Date Status Refusal Reason pneumococcal 13-valent vaccine 11/23/19 Not Given Patient Refuses Medications alfuzosin 10 mg oral tablet, [...] 21:00:00 EDT, Tablet Start Date: 12/28/19 Status: Ordered Aspercreme with Lidocaine 4% topical cream 1 applicator, Topically, 3 times a day, 0 Refills, Maintenance, 10/27/18 9:14:30 EDT Start Date: 10/27/18 Status: Ordered baclofen 10 mg oral tablet 10 mg, 1, tablet, By Mouth, 3 times a day, PRN, Refills 0, Maintenance, Spasm, 12/14/19 9:08:00 EDT Start Date: 12/14/19 Status: Ordered Colace Capsule 100 mg, 1, capsule, By Mouth, 2 times a day, Refills 0, Maintenance, 11/16/19 9:33:00 EDT Start Date: 11/16/19 Status: Ordered mupirocin 2% topical ointment 1 application, Topically, 3 times a day, # 15 Gm, 0 Refills, Maintenance, 12/15/18 13:51:40 EDT, Ointment Start Date: 12/15/18 Status: Ordered omeprazole 40 mg oral enteric coated capsule 1 capsule = 40 mg, By Mouth, Daily, # 30 capsule, 0 Refills, Maintenance, 12/19/19 12:47:00 EDT, ECCapsule Start Date: 12/19/19 Status: Ordered promethazine 25 mg oral tablet 2 tablet = 50 mg, By Mouth, Daily, PRN as needed for nausea/vomiting, 0 Refills, Maintenance, 10/21/17 13:57:18 EDT Start Date: 10/21/17 Status: Ordered senna 187 mg oral tablet 1 tablet = 8.6 mg, By Mouth, Daily at bedtime, 0 Refills, Maintenance, 11/16/19 9:33:00 EDT, Tablet Start Date: 11/16/19 Status: Ordered traZODone 50 mg oral tablet TAKE 1 OR 2 TABLETS BY MOUTH AT BEDTIME NEEDED.. Start Date: 09/09/19 Status: Ordered venlafaxine 150 mg oral capsule, extended release 1 capsule = 150 mg, By Mouth, Daily, 0 Refills, Maintenance Start Date: 12/18/10 Status: Ordered Problem List Condition Effective Dates Status Health Status Inform ant Abdominal hernia, ventral(Confirmed) Active Hammer toes, acquired, of alondra th feet(Confirmed) Active Anemia following surgery(Confirmed) Active Headache, cervicogenic(Confirmed) Active Status post cholecystectomy(Confirmed) Active ; Delayed gastric emptying(Confirmed) Active Neuropathy, peripheral, in t he distribution of the lat. fem. cut nerve bilaterally(Confirmed) Active Drug interaction(Confirmed) 1 Active Decreased range of motion of shoulders(Confirmed) Active Anxiety, generalized(Confirmed) Active History of gout(Confirmed) Active Status post hand surgery rig ht TM joint(Confirmed) 2 03/29/15 Active Status post hand surgery; ri ght TM joint repining(Confirmed) 3 04/12/15 Active Status post hammer toe corre ction, right(Confirmed) Active Status post hand surgery(Confirmed) 4 07/03/16 Active Hearing deficit(Confirmed) Active Status post left hip replace ment 04/09/17(Confirmed) 5 04/09/17 Active Status post total hip arthro plasty; 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/19(Confirmed) 6 11/13/19 Active Status post total knee repla cement, left(Confirmed) 04/14/01 Active Hypertension(Confirmed) Active Hypothyroidism(Confirmed) Active Knee pain, right(Confirmed) Active Knee pain, left(Confirmed) Active Kyphoscoliosis with concavit y to left(Confirmed) Active Limitation due to disability(Confirmed) 7, 8, 9, 10 Active Lumbar radiculopathy, chroni c, S1 left(Confirmed) Active Mechanical low back pain(Confirmed) Active Meralgia paresthetica, bilateral(Confirmed) Active Myofascial pain, regional(Confirmed) Active Nausea(Confirmed) Active Neck pain, mechanical(Confirmed) Active History of transcranial magn etic stimulation(Confirmed) Active Pulmonary embolism documente d on CT angio 12/19/19(Confirmed) Active Depression, major, recurrent , in partial remission(Confirmed) Active Status post repair of hernia of abdominal wall(Confirmed) 11 Active ; Biceps tendon rupture, proximal(Confirmed) Active Sacral back pain(Confirmed) Active Sacroiliac joint pain(Confirmed) Active Risk assessment: Adverse Chi ldhood Experience(Confirmed) 12 Active Obesity due to excess calories(Confirmed) Active Spinal stenosis of lumbar region(Confirmed) Active Heart murmur, systolic(Confirmed) Active Thoracic back pain(Confirmed) Active Status post vagotomy(Confirmed) 1968 Active ; COVID-19 virus detected 11/16/19(Confirmed) Active 1h/o myositis ; history of antidepressant and opioid co-treatment; h/o total CK >310. 2On 03/29/2015 underwent debridement of failed TM joint arthroplasty right thumb; APL tendon transfer (partial tendon); palm for failed trapeziometacarpal joint arthroplasty right thumb by Fred Turk M.D. at [facility]. 3On 04/12/2015 underwent repining trapeziometacarpal joint reconstruction, right thumb status post revision trapeziometacarpal joint arthroplasty, right thumb, with loss of pin fixation by Fred Turk M.D. at [facility]. 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 at [facility]. 5On/about 04/09/17 underwent left hip replacement for left hip fracture by Jos Locke at [facility] 6On 11/13/19 underwent revision hemiarthroplasty with conversion to total hip arthroplasty for left hip femoral component aseptic loosening by Elijah Stover MD at [facility] 7Updated Oswestry Disability Index: 40% moderate disability and [place] Back Pain Disability Scale:27 on 10/08/18. 8Updated Oswestry Disability Index: 50% ( severe disability ) on 07/29/17; updated [place] Back Pain Disability Scale score: 52 on 07/29/17. 9Updated Oswestry Disability Index: 36% moderate disability and [place] Back Pain Disability Scale:24 on 08/25/2015. 10Initial [place] Back Pain Disability Scale: 27 on 03/12/2012; initial Oswestry Disability Index: 54%( severe disability ) on 03/12/2012. 11multiple surgeries--first in 1998 12ACE score 6 on 07/29/17 Social History Social History Type Response Smoking Status Former smoker; Other : quit 35 years ago; entered on: 11/11/17 Sex Male
--- OUTSIDE RECORDS SUMMARY | 2023-11-09 00:37 | XMS_ITS | Continuity of Care Document ---
Author Organization [facility] Address [address] [place] [address]- Care Team Providers Care Ruling Machine Feeder Name Role Phone Po Thania FALK Primary Care Physician Encounter [facility] [place] Date(s): 08/03/21 - 11/10/21 [facility] [address] [place] [address]- Attending Physician: Jane FALK, Dina Admitting Physician: [...] On: 07/28/2020 Pharmacy I: [facility] DX: M54.4 mechanical low back pain, M53.3 [...] NEEDED NAUSEA/VERTIGO Start Date: 12/26/20 Status: Ordered Melatonin 5 mg sublingual tablet 0 Refills, Maintenance, 06/15/21 15:29:00 EST, Partial fill upon patient request if the prescription is for a schedule II opioid drug. Start Date: 06/15/21 Status: Ordered omeprazole 40 mg oral enteric [...] EVERY DAY Start Date: 01/12/21 Status: Ordered venlafaxine 37.5 mg oral capsule, extended release 0 [...] right thumb by Fred Turk M.D. at [facility]. 3On 04/12/2015 underwent repining trapeziometacarpal joint reconstruction, right thumb status post revision trapeziometacarpal joint arthroplasty, right thumb, with loss of pin fixation by Fred Turk M.D. at [facility]. 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 at [facility]. 5On/about 04/09/17 underwent left hip replacement for left hip fracture by Jos Locke at [facility] 6On 11/13/19 underwent revision hemiarthroplasty with conversion to total hip arthroplasty for left hip femoral component aseptic loosening by Elijah Stover MD at [facility] 7Updated Oswestry Disability Index: 47% (21/45; severe disability ) on 03/03/20; updated [place] BackPain Disability Scale score: 4 on 03/03/20. 8Updated Oswestry Disability Index: 40% moderate disability and [place] Back Pain Disability Scale:27 on 10/08/18. 9Updated Oswestry Disability Index: 50% ( severe disability ) on 07/29/17; updated [place] Pain Disability Scale score: 52 on 07/29/17. 10Updated Oswestry Disability Index: 36% moderate disability and [place] Back Pain Disability Scale:24 on 08/25/2015. 11Initial [place] Back Pain Disability Scale: 27 on 03/12/2012; initial Oswestry Disability Index: 54%( severe disability ) on 03/12/2012. 12multiple surgeries--first in 1998 13ACE score 6 on 07/29/17 Social History Social History Type Response Smoking Status Former smoker; Other : quit 35 years ago; entered on: 11/11/17 Sex Male
--- OUTSIDE RECORDS SUMMARY | 2023-11-09 00:37 | XMS_ITS | Continuity of Care Document ---
Author Organization [facility] Address [address] [place] [address]- Care Team Providers Care Wood Lathe Operator Name Role Phone Po Thania FALK Primary Care Physician [place] [facility] [place] 11/27/[address] [address]- [facility] Encounter Diagnosis Cellulitis(Final) - 11/21/19 Discharge Disposition: A-Transfer [facility] Attending Physician: Hollie FALK, Josecarmelina Admitting Physician: Yoshi Matos MD Referring Physician: Not on Staff, Referring MD Allergies, Adverse Reactions, Alerts Substance Reaction Severity Status codeine GI upset Active aspirin Active hydrochlorothiazide Active Soma mood changes Active Topamax bilateral hand shaking Activ e nonsteroidal anti-inflammatory agents 1 Active 1dumping syndrome Immunizations Not Given Vaccine Date Status Refusal Reason pneumococcal 13-valent vaccine 11/23/19 Not Given Patient Refuses Medications acetaminophen-HYDROcodone 325 mg-5 mg oral tablet 1 tablet, By Mouth, Every 6 hours, for 3 days, # 12 tablet, 0 Refills, Acute 11/30/19 16:35:00 EDT,11/27/19 16:35:00 EDT, Tablet, Partial fill upon patient request Start Date: 11/27/19 Stop Date: 11/30/19 Status: Ordered amLODIPine 10 mg oral tablet 5 mg, 0.5, tablet, By Mouth, Daily, Refills 0, Maintenance, 11/27/19 16:23:00 EDT Start Date: 11/27/19 Status: Ordered Aspercreme with Lidocaine 4% topical cream 1 applicator, Topically, 3 times a day, 0 Refills, Maintenance, 10/27/18 9:14:30 EDT Start Date: 10/27/18 Status: Ordered Colace Capsule 100 mg, 1, capsule, By Mouth, 2 times a day, Refills 0, Maintenance, 11/16/19 9:33:00 EDT Start Date: 11/16/19 Status: Ordered divalproex sodium 500 mg oral enteric coated tablet 1 tablet = 500 mg, By Mouth, Daily in AM, # 270 tablet, 0 Refills, Maintenance, 11/06/19 9:16:00 EDT, EC Tablet Start Date: 11/06/19 Status: Ordered doxycycline monohydrate 100 mg oral tablet 1 tablet = 100 mg, By Mouth, 2 times a day, for 7 days, stop date - 12/03, # 14 tablet, 0 Refills, Acute 12/04/19 16:25:00 EDT, 11/27/19 16:25:00 EDT, Tablet Start Date: 11/27/19 Stop Date: 12/04/19 Status: Ordered Heparin Inj 1 mL = 5,000 units, Subcutaneous Injection, 3 times a day, 0 Refills, Maintenance, 11/27/19 16:40:00 EDT, Injection Start Date: 11/27/19 Status: Ordered LORazepam 1 mg oral tablet 1 tablet = 1 mg, By Mouth, 2 times a day, PRN as needed for anxiety, 0 Refills, Maintenance, 07/29/17 9:34:33 EDT Start Date: 07/29/17 Status: Ordered mupirocin 2% topical ointment 1 application, Topically, 3 times a day, # 15 Gm, 0 Refills, Maintenance, 12/15/18 13:51:40 EDT, Ointment Start Date: 12/15/18 Status: Ordered pantoprazole 40 mg oral delayed release tablet = 40 mg, By Mouth, Daily in AM, 0 Refills, Maintenance, 11/16/19 9:33:00 EDT, EC Tablet Start Date: 11/16/19 Status: Ordered promethazine 25 mg oral tablet [...] toes, acquired, of alondra th feet(Confirmed) Active Headache, cervicogenic(Confirmed) Active Status post cholecystectomy(Confirmed) [...] surgery(Confirmed) 4 07/03/16 Active Hearing deficit(Confirmed) Active Hip pain, left(Confirmed) Active Status post left hip replace ment 04/09/17(Confirmed) 5 04/09/17 Active Status post total hip arthro plasty; 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/19(Confirmed) 6 11/13/19 Active Status post total knee repla cement, left(Confirmed) 04/14/01 Active Hypertension(Confirmed) Active Hypothyroidism(Confirmed) Active Knee pain, right(Confirmed) Active Kyphoscoliosis with concavit y to left(Confirmed) Active Limitation due to disability(Confirmed) 7, 8, 9, 10 Active Lumbar radiculopathy, chroni c, S1 left(Confirmed) Active Mechanical low back pain(Confirmed) Active Meralgia paresthetica, bilateral(Confirmed) Active Myofascial pain, regional(Confirmed) Active Nausea(Confirmed) Active Neck pain, mechanical(Confirmed) Active Leg pain, bilateral, proxima l portion upper legs(Confirmed) Active Thumb pain, right, at TM joint(Confirmed) Active History of transcranial magn etic stimulation(Confirmed) Active Pes planus(Confirmed) Active Depression, major, recurrent , in partial [...] pain(Confirmed) Active Toe pain, second toe, right foot(Confirmed) Active Status post vagotomy(Confirmed) 1968 Active ; 1h/o myositis ; history of antidepressant and opioid co-treatment; h/o total CK >310. 2On 03/29/2015 underwent debridement of failed TM joint arthroplasty right thumb; APL tendon transfer (partial tendon); palm for failed trapeziometacarpal joint arthroplasty right thumb by Fred Turk M.D. at [facility]. 3On 04/12/2015 underwent repining trapeziometacarpal joint reconstruction, right thumb status post revision trapeziometacarpal joint arthroplasty, right thumb, with loss of pin fixation by Fred Turk M.D. at [facility]. 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 at [facility]. 5Onabout 04/09/17 underwent left hip replacement for left hip fracture by Jos Locke at [facility] 6On 11/13/19 underwent revision hemiarthroplasty with conversion to total hip arthroplasty for left hip femoral component aseptic loosening by Elijah Stover MD at [facility] 7Updated Oswestry Disability Index: 40% moderate disability and [place] Back Pain Disability Scale:27 on 10/08/18. 8Updated Oswestry Disability Index: 50% ( severe disability ) on 07/29/17; updated [place] Disability Scale score: 52 on 07/29/17. 9Updated Oswestry Disability Index: 36% moderate disability and [place] Back Pain Disability Scale:24 on 08/25/2015. 10Initial [place] Back Pain Disability Scale: 27 on 03/12/2012; initial [place]estry Disability Index: 54%( severe disability ) on 03/12/2012. 11multiple surgeries--first in 1998 12ACE score 6 on 07/29/17 Results Orders for Microbiology Reports Name Date Blood Culture 11/21/19 Blood Culture #2 11/21/19 Microbiology Reports TEST:Blood Culture, Second Order STATUS:Auth (Verified) BODY SITE: SOURCE:Blood COLLECTED DATE/TIME:11/21/19 10:45 AM Blood Culture, Second Order SPECIMEN DESCRIPTION : BLOOD NO SITE SPECIAL REQUESTS : NONE CULTURE : NO GROWTH 5 DAYS. REPORT STATUS : FINAL 11/26/2019 TEST:Blood Culture STATUS:Auth (Verified) BODY SITE: SOURCE:Blood COLLECTED DATE/TIME:11/21/19 10:39 AM Blood Culture SPECIMEN DESCRIPTION : BLOOD NO SITE SPECIAL REQUESTS : NONE CULTURE : NO GROWTH 5 DAYS. REPORT STATUS : FINAL 11/26/2019 Radiology Reports * Exam Date Time Procedure Performing Provider Status 11/21/19 12:39 PM XR Hip w/Pelvis 2-3 View Left Ariela Travis; Auth (Verified) Notes: (XR Hip w/Pelvis 2-3 View Left) Reason For Exam: With Pain;Trauma RESULT: XR Hip w/Pelvis 2-3 View Left XR [...] femoral prosthesis suspicious for periprostatic fracture. WSN: [id number] Ordering Physician: Brooklyn Alicia Dictated By: Nighat Calhoun MD, V Dictated Date/Time: 11/21/19 1:37 pm Reviewed By: Nighat Calhoun MD, V Signed By: Nighat Calhoun MD, V Signed Date/Time: 11/21/19 1:37 pm Transcribed By: WOGN Transcribed Date/Time: 11/21/19 1:33 pm Vital Signs Most recent to oldest [Reference Range]: 1 2 3 Height 182.8 cm (11/27/19 10:14 AM) 182.8 cm (11/26/19 8:15 PM) 182.8 cm (11/26/19 8:28 AM) Weight 125.3 kg (11/21/19 4:16 PM) Oxygen Saturation [94-100 %] 97 % (11/27/19 10:14 AM) 91 % *L* (11/26/19 8:15 PM) 96 % (11/26/19 8:28 AM) Pulse Rate [55-90 bpm] 72 bpm (11/27/19 10:14 AM) 73 bpm (11/26/19 8:15 PM) 68 bpm (11/26/19 8:28 AM) Body Mass Index [18.5-24.99] 37.5 *>HHI* (11/21/19 4:16 PM) Blood Pressure [90-138/55-84 mm Hg] 108/69mm Hg (11/27/19 10:14 AM) 113/53mm Hg (11/26/19 8:15 PM) 137/71mm Hg (11/26/19 8:28 AM) Respiratory Rate [16-30 br/min] 18 br/min (11/27/19 4:02 PM) 18 br/min (11/27/19 11:26 AM) 16 br/min (11/27/19 11:18 AM) Temperature [96.8-100.4 DegF] 97.9 DegF (11/27/19 10:14 AM) 99.3 DegF (11/26/19 8:15 PM) 98.0 DegF (11/26/19 8:28 AM) Liters per Minute 3 L/min (11/21/19 7:00 PM) 3 L/min (11/21/19 4:18 PM) 3 L/min (11/21/19 4:16 PM) Mode of Delivery (Oxygen) Room air (11/27/19 10:14 AM) Room air (11/26/19 8:15 PM) Room air (11/26/19 8:28 AM) Blood pressure sites Arm, left (11/27/19 10:14 AM) Arm, left (11/26/19 8:15 PM) Arm, left (11/26/19 8:28 AM) Temperature Route Oral (11/27/19 10:14 AM) Oral (11/26/19 8:15 PM) Oral (11/26/19 8:28 AM) Dry Weight 125.3 kg (11/21/19 4:16 PM) Social History Social History Type Response Smoking Status Former smoker; Other : quit 35 years ago; entered on: 11/11/17 Sex
--- OUTSIDE RECORDS SUMMARY | 2023-11-09 00:37 | XMS_ITS | Continuity of Care Document ---
Author Organization [facility] Address [address] [place] [address]- Care Team Providers Care Admitting Clerk Name Role Phone Po Thania FALK Primary Care Physician Encounter [facility] [place] Date(s): 05/13/20 - 06/12/20 [facility] [address] [place] [id number] Allergies, Adverse Reactions, Alerts Substance [...] Dry Weight Start Date: 02/17/20 Status: Ordered Aspercreme with Lidocaine 4% topical cream 1 applicator, Topically, 3 times a day, 0 Refills, Maintenance, 10/27/18 9:14:30 EDT Start Date: 10/27/18 Status: Ordered Ativan 1 mg oral tablet 1 tablet = 1 mg, By Mouth, 2 times a day, PRN as needed for anxiety, Pt can have partial fills on request [facility] [id number] #[id number], # 25 tablet, 0 Refills, Maintenance, 02/17/20 14:00:00 EDT, Tablet, [email or web address], 187, cm, 02/17/20 11:... Start Date: 02/17/20 Status: Ordered baclofen 10 mg oral tablet TAKE ONE TABLET BY MOUTH THREE TIMES A DAY (WITH FOOD OR MILK). Start Date: 05/12/20 Status: Ordered Colace Capsule 100 mg, 1, capsule, By Mouth, 2 times a day, Refills 0, Maintenance, 11/16/19 9:33:00 EDT Start Date: 11/16/19 Status: Ordered cyanocobalamin 1000 mcg/ml injectable solution INJECT 1000 MCG. SUBCUTANEOUSLY EVERY 4 WEEKS. Start Date: 05/12/20 Status: Ordered divalproex sodium 250 mg oral enteric coated tablet = 250 mg, By Mouth, 2 times a day, # 60 tablet, 2 Refills, Maintenance, 02/17/20 13:50:00 EDT, Tablet, [email or web address], 187, cm, 02/17/20 11:58:00 EDT, Height, 102, kg, 02/12/20 12:29:00 EDT, Dry Weight Start Date: 02/17/20 Status: Ordered ergocalciferol 20746 iu oral capsule See Instructions, Start from 02/24/2020- 1 capsule By Mouth Every 7 days x 7 weeks, then 1 capsule by mouth once a month, # 10 capsule, Refills 0, Tot. Refills 0, Maintenance, 02/24/20 9:00:00 EDT, Instructions Replace Required Details, Route to Pharm... Start Date: 02/24/20 Status: Ordered fentanyl 12 mcg/hr transdermal film, extended release 1 patch, Topically, Every 48 hours, Reflects frequency change, # 15 film, 0 Refills, Maintenance, 05/25/20 17:06:00 EST, Patch, [email or web address], Partial fill upon patient request, 187, cm, 05/12/20 8:33:00 EST, Height, 102, kg, 02/12/20 12:29:... Start Date: 05/25/20 Status: Ordered fentaNYL 25 mcg/hr transdermal film, extended release 1 film, Topically, Every 48 hours, # 15 film, 0 Refills, Maintenance, 06/08/20 17:24:00 EST, [facility], Partial fill upon patient request, 187, cm, 06/08/20 10:35:00 EST, Height, 102, kg, 02/12/20 12:29:00 EDT, Dry Weight Start Date: 06/08/20 Status: Ordered fexofenadine 180 mg oral tablet TAKE 1 TABLET BY MOUTH ONCE A DAY NEEDED.. Start Date: 03/03/20 Status: Ordered Melatonin 10 mg oral tablet 1 tablet = 10 mg, By Mouth, Daily at bedtime, 0 Refills, Maintenance, 05/12/20 8:14:00 EST, Partialfill upon patient request if the prescription is for a schedule II opioid drug. Start Date: 05/12/20 Status: Ordered nalOXONE Once, 0 Refills, Maintenance, 03/03/20 14:34:00 EST Start Date: 03/03/20 Status: Ordered [place] 325 mg-5 mg oral tablet 1 tablet, By Mouth, Every 4 hours, PRN pain, Reflects dose increase., # 168 tablet, 0 Refills, Maintenance, 05/25/20 17:06:00 EST, Tablet, [facility], Partial fill upon patient request, 1 tablet By Mouth Every 4 hours,PRN:pain,Instr:Refle... Start Date: 05/25/20 Status: Ordered omeprazole 40 mg oral enteric coated capsule 1 capsule = 40 mg, By Mouth, Daily, # 30 capsule, 0 Refills, Maintenance, 12/19/19 12:47:00 EDT, ECCapsule Start Date: 12/19/19 Status: Ordered promethazine 25 mg oral tablet TAKE ONE TABLET BY MOUTH EVERY 6 HOURS NEEDED FOR NAUSEA Start Date: 03/03/20 Status: Ordered senna 187 mg oral tablet 1 tablet = 8.6 mg, By Mouth, Daily at bedtime, 0 Refills, Maintenance, 11/16/19 9:33:00 EDT, Tablet Start Date: 11/16/19 Status: Ordered traZODone 50 mg oral tablet 50 mg, 1, tablet, By Mouth, Daily at bedtime, # 30 tablet, Refills 0, Tot. Refills 0, Maintenance, 02/17/20 13:50:00 EDT, Route to Pharmacy Electronically, [email or web address], 187, cm, 02/17/20 11:58:00 EDT, Height, 102, kg, 02/12/20 12:29:00 EDT... Start Date: 02/17/20 Status: Ordered venlafaxine 150 mg oral capsule, extended release 150 mg, 1, capsule, By Mouth, Daily, # 30 capsule, Refills 0, Tot. Refills 0, Maintenance, 02/16/2013:50:00 EDT, Route to Pharmacy Electronically, [facility] [...] Thoracic spine pain(Confirmed) Active History of transcranial magn etic stimulation(Confirmed) [...] right thumb by Fred Turk M.D. at [facility]. 3On 04/12/2015 underwent repining trapeziometacarpal joint reconstruction, right thumb status post revision trapeziometacarpal joint arthroplasty, right thumb, with loss of pin fixation by Fred Turk M.D. at [facility]. 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 at [facility]. 5On/about 04/09/17 underwent left hip replacement for left hip fracture by Jos Locke at [facility] 6On 11/13/19 underwent revision hemiarthroplasty with conversion to total hip arthroplasty for left hip femoral component aseptic loosening by Elijah Stover MD at [facility] 7Updated Oswestry Disability Index: 47% (21/45; severe disability ) on 03/03/20; updated [place] BackPain Disability Scale score: 4 on 03/03/20. 8Updated Oswestry Disability Index: 40% moderate disability and [place] Back Pain Disability Scale:27 on 10/08/18. 9Updated Oswestry Disability Index: 50% ( severe disability ) on 07/29/17; updated [place] Back Pain Disability Scale score: 52 on 07/29/17. 10Updated Oswestry Disability Index: 36% moderate disability and [place] Back Pain Disability Scale:24 on 08/25/2015. 11Initial [place] Back Pain Disability Scale: 27 on 03/12/2012; initial Oswestry Disability Index: 54%( severe disability ) on 03/12/2012. 12multiple surgeries--first in 1998 13ACE score 6 on 07/29/17 Social History Social History Type Response Smoking Status Former smoker; Other : quit 35 years ago; entered on: 11/11/17 Sex Male
--- OUTSIDE RECORDS SUMMARY | 2023-11-09 00:37 | XMS_ITS | Continuity of Care Document ---
Author Organization [facility] Address [address] [place] [address]- Care Team Providers Care Field Mechanic/Site Lead Name Role Phone Po Thania FALK Primary Care Physician [phone] Encounter [facility] Date(s): 05/26/20 - 06/25/20 [facility] [address] [place] [id number] Allergies, Adverse Reactions, Alerts [...] have partial fills on request [facility] [id number] #[id number], # 25 tablet, 0 Refills, Maintenance, 02/17/20 14:00:00 EDT, Tablet, [facility], 187, cm, 02/17/20 11:... Start [...] Maintenance, 02/17/20 13:50:00 EDT, Tablet, [facility], 187, cm, 02/17/20 11:58:00 EDT, Height, 102, kg, 02/12/20 12:29:00 EDT, Dry Weight Start Date: 02/17/20 Status: Ordered ergocalciferol 08908 iu oral capsule See Instructions, Start from [...] 14:34:00 EST Start Date: 03/03/20 Status: Ordered [place] 325 mg-5 mg oral tablet 1 tablet, By Mouth, Every 4 hours, PRN pain, MAX 6 tabs/day, # 168 tablet, 0 Refills, Maintenance, 06/22/20 14:22:00 EST, Tablet, [facility], Partial fill upon patient request, 1 tablet By Mouth Every 4 hours,PRN:pain,Instr:MAX 6 tabs/day... Start Date: 06/22/20 Status: Ordered omeprazole 40 mg oral enteric [...] EDT, Route to Pharmacy Electronically, [facility], 187, cm, 02/17/20 11:58:00 EDT, [...] right thumb by Fred Turk M.D. at [facility]. 3On 04/12/2015 underwent repining trapeziometacarpal joint reconstruction, right thumb status post revision trapeziometacarpal joint arthroplasty, right thumb, with loss of pin fixation by Fred Turk M.D. at [facility]. 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 at [facility]. 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 8Updated Oswestry Disability Index: 40% moderate disability and [place] Pain Disability Scale:27 on 10/08/18. 9Updated Oswestry Disability Index: 50% ( severe disability ) on 07/29/17; updated [place] Pain Disability Scale score: 52 on 07/29/17. 10Updated Oswestry Disability Index: 36% moderate disability and [place] Pain Disability Scale:24 on 08/25/2015. 11Initial [place] Pain Disability Scale: 27 on 03/12/2012; initial Oswestry Disability Index: 54%( severe disability ) on 03/12/2012. 12multiple surgeries--first in 1998 13ACE score 6 on 07/29/17 Social History Social History Type Response Smoking Status Former smoker; Other : quit 35 years ago; entered on: 11/11/17 Sex Male
--- OUTSIDE RECORDS SUMMARY | 2023-11-09 00:37 | XMS_ITS | Continuity of Care Document ---
Author Organization [facility] Address [address] [place] [address]- Care Team Providers Care Ultrasound Sonographer Name Role Phone Thania Almaraz MD Primary Care Physician [phone] Encounter [facility] [place] Date(s): 09/28/20 - 11/24/20 [facility] [address] [place] [id number] Attending Physician: Stephanie Alanis MD Admitting Physician: [...] opioid drug. Start Date: 07/28/20 Status: Ordered Ativan 1 mg oral tablet 1 tablet = 1 mg, By Mouth, 2 times a day, PRN as needed for anxiety, Pt can have partial fills on request [facility] [id number] #[id number], # 25 tablet, 0 Refills, Maintenance, 02/17/20 14:00:00 EDT, Tablet, [facility], 187, cm, 02/17/20 11:... Start Date: 02/17/20 Status: Ordered Belbuca 300 mcg buccal film 1 film = 300 mcg, By Mouth, Every 12 hours, place film on inside of cheek and avoid food or drink until completely dissolved, # 28 film, 0 Refills, Maintenance, 11/23/20 17:37:00 EDT, Hydrocodone/APAP will be tapered down as Belbuca reaches steady state. Start Date: 11/23/20 Status: Ordered Jose Maria-Emu Super Strength topical [...] On: 07/28/2020 Pharmacy I: [facility] DX: M54.4 mechanical low back pain, M53.3 [...] Dry Weight Start Date: 02/17/20 Status: Ordered dronabinol 2.5 mg oral capsule See Instructions, 1 cap po 1 or 2 times/day PRN nausea/vomiting., # 30 capsule, 0 Refills, Maintenance, 09/19/20 16:59:00 EDT, [facility], May pay out of pocket if not covered by insurance., 187, cm, 08/31/20 10:21:00 EDT, Height, 102, kg... Start Date: 09/19/20 Status: Ordered ferrous sulfate 325 mg oral [...] DAY NEEDED.. Start Date: 03/03/20 Status: Ordered melatonin 5 mg oral capsule 1 capsule = 5 mg, By Mouth, Daily at bedtime, 0 Refills, Maintenance, 11/10/20 9:46:00 EDT, Partialfill upon patient request if the prescription is for a schedule II opioid drug. Start Date: 11/10/20 Status: Ordered omeprazole 40 mg oral enteric [...] EDT, Route to Pharmacy Electronically, [facility], 187, cm, 02/17/20 11:58:00 EDT, Height, 102, kg, 02/12/20 12:29:00 EDT... Start Date: 02/17/20 Status: Ordered venlafaxine 150 mg oral capsule, extended release 150 mg, 1, capsule, By Mouth, Daily, # 30 capsule, Refills 0, Tot. Refills 0, Maintenance, 02/16/2013:50:00 EDT, Route to Pharmacy Electronically, [facility], 187, cm, 02/17/20 11:58:00 EDT, [...] Status post total hip arthro plasty; revision 7/17/20(Confirmed) 6 11/13/19 Active Status post total knee [...] right thumb by Fred Turk M.D. at [facility]. 3On 04/12/2015 underwent repining trapeziometacarpal joint reconstruction, right thumb status post revision trapeziometacarpal joint arthroplasty, right thumb, with loss of pin fixation by Fred Turk M.D. at [facility]. 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 at [facility]. 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 8Updated Oswestry Disability Index: 40% moderate disability and [place] Back Pain Disability Scale:27 on 10/08/18. 9Updated Oswestry Disability Index: 50% ( severe disability ) on 07/29/17; updated [place] Pain Disability Scale score: 52 on 07/29/17. 10Updated Oswestry Disability Index: 36% moderate disability and [place] Back Pain Disability Scale:24 on 08/25/2015. 11Initial [place] Back Pain Disability Scale: 27 on 03/12/2012; initial Oswestry Disability Index: 54%( severe disability ) on 03/12/2012. 12multiple surgeries--first in 1998 13ACE score 6 on 07/29/17 Social History Social History Type Response Smoking Status Former smoker; Other : quit 35 years ago; entered on: 11/11/17 Sex Male
--- OUTSIDE RECORDS SUMMARY | 2023-11-09 00:37 | XMS_ITS | Continuity of Care Document ---
Author Organization [facility] Address [address] [place] [address]- Care Team Providers Care Education Diagnostician Name Role Phone Po Thania FALK Primary Care Physician Encounter [facility] [place] Date(s): 10/23/19 - 11/22/19 [facility] [address] [place] [address]- [facility] Attending Physician: Eva Nugent Admitting Physician: Eva Nugent Referring Physician: [id number] Allergies, Adverse Reactions, Alerts Substance Reaction Severity Status codeine GI upset Active aspirin Active hydrochlorothiazide Active Soma mood changes Active Topamax bilateral hand shaking Activ e nonsteroidal anti-inflammatory agents 1 Active 1dumping syndrome Medications acetaminophen-HYDROcodone 325 mg-5 mg oral tablet See Instructions, PRN Pain , Severe, Take 1-2 tablet By Mouth Every 4 hours as needed for pain, # 84 tablet, 0 Refills, Acute 11/23/19 9:31:00 EDT, 11/16/19 9:29:00 EDT, Tablet, Partial fill upon patient request Start Date: 11/16/19 Stop Date: 11/23/19 Status: Ordered acetaminophen/butalbital/caffeine 325 mg-50 mg-40 mg oral tablet 1 tablet, By Mouth, PRN headache, 0 Refills, Maintenance, 07/10/18 11:58:21 EDT Start Date: 07/10/18 Status: Ordered alfuzosin 10 mg oral tablet, extended release TAKE ONE TABLET BY MOUTH EVERY OTHER NIGHT Start Date: 01/20/19 Status: Ordered amLODIPine 10 mg oral tablet 10 mg, 1, tablet, By Mouth, Daily, # 30 tablet, Refills 0, Maintenance, 08/26/18 14:42:07 EDT Start Date: 08/26/18 Status: Ordered Aspercreme with Lidocaine 4% topical cream 1 applicator, Topically, 3 times a day, 0 Refills, Maintenance, 10/27/18 9:14:30 EDT Start Date: 10/27/18 Status: Ordered Citrucel Clear Mix 2 g/19 g oral powder for reconstitution = 2 Gm, By Mouth, 3 times a day, 0 Refills, Maintenance, 11/11/19 8:22:00 EDT Start Date: 11/11/19 Status: Ordered Clear Eyes 1 drops, Eyes, Both, 2 times a day, 0 Refills, Maintenance, 01/20/19 8:18:14 EDT Start Date: 01/20/19 Status: Ordered Colace Capsule 100 mg, 1, capsule, By Mouth, 2 times a day, Refills 0, Maintenance, 11/16/19 9:33:00 EDT Start Date: 11/16/19 Status: Ordered Controlled Substance Agreement Controlled Substance Agreement, See Instructions, # 1 units, Refills 0, Tot. Refills 0, Maintenance, Signed On: 10/08/18 [facility] (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 Start Date: 10/08/18 Status: Ordered cyanocobalamin 1000 mcg/ml injectable solution INJECT 1 ML. SUBCUTANEOUSLY EVERY MONTH.. Start Date: 03/03/19 Status: Ordered dicyclomine 10 mg oral capsule 0 Refills, Maintenance, 10/28/19 14:18:00 EDT Start Date: 10/28/19 Status: Ordered divalproex sodium 500 mg oral enteric coated tablet 1 tablet = 500 mg, By Mouth, Daily in AM, # 270 tablet, 0 Refills, Maintenance, 11/06/19 9:16:00 EDT, EC Tablet Start Date: 11/06/19 Status: Ordered fexofenadine 180 mg oral tablet TAKE 1 TABLET BY MOUTH ONCE A DAY NEEDED.. Start Date: 10/08/18 Status: Ordered Imodium A-D 2 mg, By Mouth, Every 4 hours, PRN, Refills 0, Maintenance, Diarrhea, 10/08/18 10:17:24 EDT Start Date: 10/08/18 Status: Ordered LORazepam 1 mg oral tablet 1 tablet = 1 mg, By Mouth, 2 times a day, PRN as needed for anxiety, 0 Refills, Maintenance, 07/29/17 9:34:33 EDT Start Date: 07/29/17 Status: Ordered Metamucil 3.4 gm/5.2 gm oral powder for reconstitution = 3.4 Gm, By Mouth, Daily, 0 Refills, Maintenance, 10/08/18 10:17:39 EDT Start Date: 10/08/18 Status: Ordered MiraLax Powder 1 pack/packet = 17 Gm, By Mouth, Daily, 0 Refills, Maintenance, 11/16/19 9:33:00 EDT, Powder Start Date: 11/16/19 Status: Ordered MOM Liquid 30 mL, By Mouth, Daily, PRN Constipation, 0 Refills, Maintenance, 11/16/19 9:33:00 EDT, Suspension Start Date: 11/16/19 Status: Ordered mupirocin 2% topical ointment 1 application, Topically, 3 times a day, # 15 Gm, 0 Refills, Maintenance, 12/15/18 13:51:40 EDT, Ointment Start Date: 12/15/18 Status: Ordered Narcan 4 mg/0.1 mL nasal spray See Instructions, nasally once, may repeat every 2 to 3 minutes until patient responds, # 2 each, 0Refills, Soft Stop, 01/20/19 8:54:13 EDT Start Date: 01/20/19 Status: Ordered omeprazole 40 mg oral enteric coated capsule 1 capsule = 40 mg, By Mouth, Daily, # 30 capsule, 0 Refills, Maintenance, 08/25/15 8:54:33, EC Capsule Start Date: 08/25/15 Status: Ordered pantoprazole 40 mg oral delayed [...] EDT, Tablet Start Date: 11/16/19 Status: Ordered traMADol 50 mg oral tablet See Instructions, PRN Pain , Moderate, Take 1 tablet By Mouth Every 4 hours as needed for pain not to exceed 400 mg/day, # 60 tablet, 0 Refills, Acute 11/23/19 9:29:00 EDT, 11/16/19 9:28:00 EDT, Tablet Start Date: 11/16/19 Stop Date: 11/23/19 Status: Ordered traZODone 50 mg oral tablet TAKE 1 OR 2 TABLETS BY MOUTH AT BEDTIME NEEDED.. Start Date: 09/09/19 Status: Ordered triamcinolone 0.1% topical cream 1 application, Topically, 2 times a day, # 15 Gm, 0 Refills, Maintenance, 12/15/18 13:51:15 EDT, Cream Start Date: 12/15/18 Stop Date: 12/29/18 Status: Ordered Tums 500 = 500 mg, Daily, 0 Refills, Maintenance, 09/09/19 9:20:00 EDT Start Date: 09/09/19 Status: Ordered venlafaxine 150 mg oral capsule, extended release 1 capsule = 150 mg, By Mouth, Daily, 0 Refills, Maintenance Start Date: 12/18/10 Status: Ordered Vitamin C 500 mg oral tablet TAKE ONE TABLET BY MOUTH TWICE A DAY Start Date: 03/03/19 Status: Ordered warfarin 4 mg oral tablet 1 tablet = 4 mg, By Mouth, Once, 0 Refills, Maintenance, 11/16/19 9:33:00 EDT, Tablet Start Date: 11/16/19 Status: Ordered Wheeled walker with seat and hand brakes Wheeled [...] thumb by Fred Turk M.D. at [facility]. 3On 04/12/2015 underwent repining trapeziometacarpal joint reconstruction, right thumb status post revision trapeziometacarpal joint arthroplasty, right thumb, with loss of pin fixation by Fred Turk M.D. at [facility]. 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 at [facility]. 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 8Updated Oswestry Disability Index: 50% ( severe disability ) on 07/29/17; updated [place] Pain Disability Scale score: 52 on 07/29/17. 9Updated Oswestry Disability Index: 36% moderate disability and [place] Disability Scale:24 on 08/25/2015. 10Initial [place] Pain Disability Scale: 27 on 03/12/2012; initial [place]estry Disability Index: 54%( severe disability ) on 03/12/2012. 11multiple surgeries--first in 1998 12ACE score 6 on 07/29/17 Social History Social History Type Response Smoking Status Former smoker; Other : quit 35 years ago; entered on: 11/11/17 Sex
--- OUTSIDE RECORDS SUMMARY | 2023-11-09 00:37 | XMS_ITS | Continuity of Care Document ---
Author Organization [facility] Address [address] [place] [address]- Care Team Providers Care Sweat Box Attendant Name Role Phone Po Thania FALK Primary Care Physician [phone] Encounter [facility] [place] Date(s): 09/20/21 - 10/20/21 [facility] [address] [place] [address]- Allergies, Adverse Reactions, Alerts Substance Reaction Severity [...] On: 07/28/2020 Pharmacy [facility]: [facility] DX: M54.4 mechanical low back [...] thumb by Fred Turk M.D. at [facility]. 3On 04/12/2015 underwent repining trapeziometacarpal joint reconstruction, right thumb status post revision trapeziometacarpal joint arthroplasty, right thumb, with loss of pin fixation by Fred Turk M.D. at [facility]. 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 at [facility]. 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 8Updated Oswestry Disability Index: 40% moderate disability and [place] Pain Disability Scale:27 on 10/08/18. 9Updated Oswestry Disability Index: 50% ( severe disability ) on 07/29/17; updated [place] Pain Disability Scale score: 52 on 07/29/17. 10Updated Oswestry Disability Index: 36% moderate disability and [place] Disability Scale:24 on 08/25/2015. 11Initial [place] Pain Disability Scale: 27 on 03/12/2012; initial [place]estry Disability Index: 54%( severe disability ) on 03/12/2012. 12multiple surgeries--first in 1998 13ACE score 6 on 07/29/17 Social History Social History Type Response Smoking Status Former smoker; Other : quit 35 years ago; entered on: 11/11/17 Sex Male
--- OUTSIDE RECORDS SUMMARY | 2023-11-09 00:37 | XMS_ITS | Continuity of Care Document ---
Author Organization [facility] Address [address] [place] [address]- Care Team Providers Care Forgesmith Name Role Phone Po Thania FALK Primary Care Physician Encounter [facility] [place] Date(s): 06/09/20 - 07/09/20 [facility] [address] [place] [id number] Allergies, Adverse Reactions, Alerts Substance Reaction Severity [...] can have partial fills on request [facility] [id number] #[id number], # 25 tablet, 0 Refills, Maintenance, 02/17/20 14:00:00 EDT, Tablet, [facility], 187, cm, 02/17/20 11:... Start [...] Maintenance, 02/17/20 13:50:00 EDT, Tablet, [facility], 187, cm, 02/17/20 11:58:00 EDT, Height, 102, kg, 02/12/20 12:29:00 EDT, Dry Weight Start Date: 02/17/20 Status: Ordered ergocalciferol 43793 iu oral capsule See Instructions, Start from [...] 14:34:00 EST Start Date: 03/03/20 Status: Ordered Anderson 325 mg-5 mg oral tablet 1 tablet, [...] EDT, Route to Pharmacy Electronically, [facility], 187, cm, 02/17/20 11:58:00 EDT, [...] Fred Turk M.D. at [facility]. 3On 04/12/2015 underwent repining trapeziometacarpal joint reconstruction, right thumb status post revision trapeziometacarpal joint arthroplasty, right thumb, with loss of pin fixation by Fred Turk M.D. at [facility]. 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 at [facility]. 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
--- OUTSIDE RECORDS SUMMARY | 2023-11-09 00:37 | XMS_ITS | Continuity of Care Document ---
Author Organization [facility] Address [address] [place] [address]- Care Team Providers Care Analytical Laboratory Technician Name Role Phone Po Thania FALK Primary Care Physician Encounter [facility] [place] Date(s): 08/10/20 - 12/03/20 [facility] [address] [place] [id number] Attending Physician: Dina Lara MD Admitting Physician: Dina Lara MD Allergies, Adverse Reactions, Alerts Substance Reaction Severity Status codeine GI upset Active Topamax bilateral hand shaking Activ e nonsteroidal anti-inflammatory agents 1 Active aspirin Active hydrochlorothiazide Active Soma mood [...] can have partial fills on request [facility] [id number] #[id number], # 25 tablet, 0 Refills, Maintenance, 02/17/20 14:00:00 EDT, Tablet, [facility], 187, cm, 02/17/20 11:... Start [...] Maintenance,Updated On: 07/28/2020 Pharmacy I: [facility] DX: M54.4 mechanical low back pain, M53.3 [...] 02/17/20 13:50:00 EDT, Route to Pharmacy Electronically, [email or web address], 187, cm, 02/17/20 11:58:00 EDT, [...] right thumb by Fred Turk M.D. at [facility]. 3On 04/12/2015 underwent repining trapeziometacarpal joint reconstruction, right thumb status post revision trapeziometacarpal joint arthroplasty, right thumb, with loss of pin fixation by Fred Turk M.D. at [facility]. 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 at [facility]. 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
--- OUTSIDE RECORDS SUMMARY | 2023-11-09 00:37 | XMS_ITS | Continuity of Care Document ---
Author Organization [facility] Address [address] [place] [address]- Care Team Providers Care Mgmt Analyst Name Role Phone Po Thania FALK Primary Care Physician Encounter [facility] Date(s): 07/19/20 - 08/18/20 [facility] [address] [place] [id number] Allergies, Adverse Reactions, Alerts Substance [...] opioid drug. Start Date: 07/28/20 Status: Ordered Aspercreme with Lidocaine 4% topical cream 1 applicator, Topically, 3 times a day, 0 Refills, Maintenance, 10/27/18 9:14:30 EDT Start Date: 10/27/18 Status: Ordered Ativan 1 mg oral tablet 1 tablet = 1 mg, By Mouth, 2 times a day, PRN as needed for anxiety, Pt can have partial fills on request [facility] [id number] #[id number], # 25 tablet, 0 Refills, Maintenance, 02/17/20 14:00:00 EDT, Tablet, [facility] 187, cm, 02/17/20 11:... Start Date: 02/17/20 Status: Ordered Colace Capsule 100 mg, 1, capsule, By Mouth, 2 times a day, Refills 0, Maintenance, 11/16/19 9:33:00 EDT Start Date: 11/16/19 Status: Ordered Controlled Substance Agreement Controlled Substance Agreement, See Instructions, # 1 each, Refills 0, Tot. Refills 0, Maintenance,Updated On: 07/28/2020 Pharmacy I: 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 Refills 0, Maintenance, 02/24/20 9:00:00 EDT, Instructions Replace Required Details, Route to Pharm... Start Date: 02/24/20 Status: Ordered ferrous sulfate 325 mg oral [...] DAY NEEDED.. Start Date: 03/03/20 Status: Ordered meclizine 12.5 mg oral tablet See Instructions, 2 tablet by mouth qid for 3 days, then 1-2 tabs as needed for vertigo/nausea, # 100 tablet, 1 Refills, Maintenance, 07/28/20 17:23:00 EDT, [facility], Partial fill upon patient request if the prescription is for a schedu... Start Date: 07/28/20 Status: Ordered morphine 15 mg oral tablet, immediate release See Instructions, 0.5 tab by mouth up to 6 times a day as needed for sacral pain. Stop hydrocodone/APAP, # 21 tablet, 0 Refills, Maintenance, 07/28/20 17:29:00 EDT, [facility], Partial fill upon patient request if the prescription is for... Start Date: 07/28/20 Status: Ordered nalOXONE Once, 0 Refills, Maintenance, 03/03/20 14:34:00 EST Start Date: 03/03/20 Status: Ordered Regent 325 mg-5 mg oral tablet 1 tablet, By Mouth, Every 4 hours, PRN pain, MAX 6 tabs/day, # 168 tablet, 0 Refills, Maintenance, 08/15/20 13:02:00 EDT, Tablet, [facility], Partial fill upon patient request. Dr Mills covering for Dr Pollard. Thank you, 1 tablet By Mo... Start Date: 08/15/20 Status: Ordered omeprazole 40 mg oral enteric [...] 02/17/20 13:50:00 EDT, Route to Pharmacy Electronically, [facility], 187, cm, 02/17/20 11:58:00 EDT, Height, 102, kg, 02/12/20 12:29:00 EDT... Start Date: 02/17/20 Status: Ordered venlafaxine 150 mg oral capsule, extended release 150 mg, 1, capsule, By Mouth, Daily, # 30 capsule, Refills 0, Tot. Refills 0, Maintenance, 02/16/2013:50:00 EDT, Route to Pharmacy Electronically, [facility], 187, cm, 02/17/20 11:58:00 EDT, [...] thumb by Fred Turk M.D. at [facility]. 3On 04/12/2015 underwent repining trapeziometacarpal joint reconstruction, right thumb status post revision trapeziometacarpal joint arthroplasty, right thumb, with loss of pin fixation by Fred Turk M.D. at [facility]. 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 at [facility]. 5On/about 04/09/17 underwent left hip replacement for left hip fracture by Jos Locke at 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 8Updated Oswestry Disability Index: 40% moderate disability and [place] Back Pain Disability Scale:27 on 10/08/18. 9Updated Oswestry Disability Index: 50% ( severe disability ) on 07/29/17; updated [place] Back Pain Disability Scale score: 52 on 07/29/17. 10Updated Oswestry Disability Index: 36% moderate disability and [place] Back Pain Disability Scale:24 on 08/25/2015. 11Initial [place] Back Pain Disability Scale: 27 on 03/12/2012; initial Oswestry Disability Index: 54%( severe disability ) on 03/12/2012. 12multiple surgeries--first in 1998 13ACE score 6 on 07/29/17 Social History Social History Type Response Smoking Status Former smoker; Other : quit 35 years ago; entered on: 11/11/17 Sex Male
--- OUTSIDE RECORDS SUMMARY | 2023-11-09 00:37 | XMS_ITS | Continuity of Care Document ---
Author Organization [facility] Address [address] [place] [address]- Care Team Providers Care Residential Carpet Installer Name Role Phone Wojciech FALK, Ayo Primary Care Physician Encounter [facility] [place] Date(s): 12/21/19 - 01/20/20 [facility] [address] [place] [id number]- [facility] Attending Physician: Eva Nugent Allergies, Adverse Reactions, Alerts Substance Reaction Severity Status codeine GI upset Active aspirin Active Soma mood changes Active Topamax bilateral hand shaking Activ e hydrochlorothiazide Active nonsteroidal anti-inflammatory agents 1 Active 1dumping syndrome [...] by Fred Turk M.D. at [facility]. 3On 04/12/2015 underwent repining trapeziometacarpal joint reconstruction, right thumb status post revision trapeziometacarpal joint arthroplasty, right thumb, with loss of pin fixation by Fred Turk M.D. at [facility]. 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 at [facility]. 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
--- OUTSIDE RECORDS SUMMARY | 2023-11-09 00:37 | XMS_ITS | Continuity of Care Document ---
Author Organization [facility] Address [address] [place] [address]- Care Team Providers Care Materials Planning Manager Name Role Phone Po Thania FALK Primary Care Physician [place] [facility](s[place] 11/13/19 - 11/16/[address] [address] [facility] Discharge Disposition: A-Transfer SNF Attending Physician: Elijah Stover MD Admitting Physician: Elijah Stover MD Referring Physician: Elijah Stover MD Allergies, Adverse Reactions, Alerts Substance Reaction Severity Status codeine GI upset Active aspirin Active hydrochlorothiazide Active Topamax bilateral hand shaking Activ e nonsteroidal anti-inflammatory agents 1 Active Soma mood changes Active 1dumping syndrome [...] Signed On: 10/08/18 [facility] pain (M54.5), meralgia paraesthetica [...] right thumb by Fred Turk M.D. at [facility]. 3On 04/12/2015 underwent repining trapeziometacarpal joint reconstruction, right thumb status post revision trapeziometacarpal joint arthroplasty, right thumb, with loss of pin fixation by Fred Turk M.D. at [facility]. 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 at [facility]. 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 8Updated Oswestry Disability Index: 50% ( severe disability ) on 07/29/17; updated [place] Pain Disability Scale score: 52 on 07/29/17. 9Updated Oswestry Disability Index: 36% moderate disability and [place] Back Pain Disability Scale:24 on 08/25/2015. 10Initial [place] Back Pain Disability Scale: 27 on 03/12/2012; initial Oswestry Disability Index: 54%( severe disability ) on 03/12/2012. 11multiple surgeries--first in 1998 12ACE score 6 on 07/29/17 Results Radiology Reports * Exam Date Time Procedure Performing Provider Status 11/13/19 4:31 PM Pelvis 1 or 2 Views Marcelo Feng [facility] (Verified) Notes: (Pelvis 1 or 2 Views) Reason For Exam: oa left hip revision RESULT: Pelvis 1 or 2 Views Pelvis 1 or 2 Views Reason: oa left hip revision COMPARISON: 11/13/2019 FINDINGS: Status post left hip arthroplasty. The sizing rasp has been replaced by a prosthetic acetabular head. Air is present within the adjacent soft tissues compatible with recent surgery. No dislocation oracute fracture. Prostate seeds. IMPRESSION: Status post left hip arthroplasty. WSN: [id number] Ordering Physician: Elijah Stover Dictated By: Jhon Penn MD Dictated Date/Time: 11/13/19 4:34 pm Reviewed By: Jhon Penn MD Signed By: Jhon Penn MD Signed Date/Time: 11/13/19 4:34 pm Transcribed By: WONG Transcribed Date/Time: 11/13/19 4:33 pm * Exam Date Time Procedure Performing Provider Status 11/13/19 3:30 PM Pelvis 1 or 2 Views Valery Merida; A ut (Verified) Notes: (Pelvis 1 or 2 Views) Reason For Exam: OA left hip revision RESULT: Pelvis 1 or 2 Views Pelvis 1 or 2 Views Reason: OA left hip revision FINDINGS: ?Component of prosthesis appears to be in typical location on this single view study. ? IMPRESSION: Unremarkable intraop study. WSN: [id number] Ordering Physician: Elijah Stover Dictated By: Víctor Higgins MD Dictated Date/Time: 11/13/19 3:46 pm Reviewed By: Víctor Higgins MD Signed By: Víctor Higgins MD Signed Date/Time: 11/13/19 3:46 pm Transcribed By: WONG Transcribed Date/Time: 11/13/19 3:45 pm * Exam Date Time Procedure Performing Provider Status 11/13/19 3:41 PM Pelvis 1 or 2 Views Valery Merida; A ut (Verified) Notes: (Pelvis 1 or 2 Views) Reason For Exam: oa left hip revision RESULT: Pelvis 1 or 2 Views Pelvis 1 or 2 Views Reason: oa left hip revision COMPARISON: Study done short time earlier same day. FINDINGS: ?Components of prosthesis appear to be in typical location on this single view study. ? IMPRESSION: Unremarkable intraop study. WSN: [id number] Ordering Physician: Elijah Stover Dictated By: Víctor Higgins MD Dictated Date/Time: 11/13/19 3:43 pm Reviewed By: Víctor Higgins MD Signed By: Víctor Higgins MD Signed Date/Time: 11/13/19 3:43 pm Transcribed By: WONG Transcribed Date/Time: 11/13/19 3:42 pm * Exam Date Time Procedure Performing Provider Status 11/13/19 3:30 PM Pelvis 1 or 2 Views Licha Merida [facility] (Verified) Notes: (Pelvis 1 or 2 Views) Reason For Exam: oa left hip revision RESULT: Pelvis 1 or 2 Views Pelvis 1 or 2 Views Reason: oa left hip revision COMPARISON: Study done short time earlier same day FINDINGS: ?Components of prosthesis appear to be in typical location on this single view study. ? IMPRESSION: Unremarkable intraop study WSN: [id number] Ordering Physician: Elijah Stover Dictated By: Víctor Higgins MD Dictated Date/Time: 11/13/19 3:42 pm Reviewed By: Víctor Higgins MD Signed By: Víctor Higgins MD Signed Date/Time: 11/13/19 3:42 pm Transcribed By: WONG Transcribed Date/Time: 11/13/19 3:41 pm Vital Signs Most recent to oldest [Reference Range]: 1 2 3 Height 182 cm (11/16/19 7:33 AM) 182 cm (11/16/19 4:30 AM) 182 cm (11/16/19 12:30 AM) Weight 123.9 kg (11/13/19 11:14 AM) 123.9 kg (11/13/19 6:59 AM) Oxygen Saturation [94-100 %] 97 % (11/16/19 7:33 AM) 94 % (11/16/19 4:30 AM) 96 % (11/16/19 12:30 AM) Pulse Rate [55-90 bpm] 88 bpm (11/16/19 7:33 AM) 92 bpm *H* (11/16/19 4:30 AM) 85 bpm (11/16/19 12:30 AM) Body Mass Index [18.5-24.99] 37.4 *>HHI* (11/13/19 11:14 AM) 37.4 *>HHI* (11/13/19 6:59 AM) Blood Pressure [90-138/55-84 mm Hg] 130/62mm Hg (11/16/19 7:33 AM) 139/77mm Hg *H* (11/16/19 4:30 AM) 119/70mm Hg (11/16/19 12:30 AM) Respiratory Rate [16-30 br/min] 19 br/min (11/16/19 12:37 PM) 18 br/min (11/16/19 10:58 AM) 18 br/min (11/16/19 9:58 AM) Temperature [96.8-100.4 DegF] 98.4 DegF (11/16/19 7:33 AM) 97.5 DegF (11/16/19 4:30 AM) 98.4 DegF (11/16/19 12:30 AM) Liters per Minute 2 L/min (11/15/19 7:16 AM) 2 L/min (11/15/19 3:00 AM) 2 L/min (11/15/19 2:00 AM) Mode of Delivery (Oxygen) Room air (11/16/19 7:33 AM) Room air (11/16/19 4:30 AM) Room air (11/16/19 12:30 AM) Blood pressure sites Arm, left (11/16/19 7:33 AM) Arm, left (11/15/19 1:26 PM) Arm, left (11/15/19 10:27 AM) Temperature Route Oral (11/16/19 7:33 AM) Oral (11/16/19 4:30 AM) Oral (11/16/19 12:30 AM) Dry Weight 123.9 kg (11/13/19 6:59 AM) Social History Social History Type Response Smoking Status Former smoker; Other : quit 35 years ago; entered on: 11/11/17 Sex
--- OUTSIDE RECORDS SUMMARY | 2023-11-09 00:37 | XMS_ITS | Continuity of Care Document ---
Author Organization [facility] Address [address] [place] [address]- Care Team Providers Care Casting Machine Adjuster Name Role Phone Po Thania FALK Primary Care Physician Encounter [facility] [place] Date(s): 08/15/20 - 09/14/20 [facility] [address] [place] [id number] Allergies, Adverse Reactions, Alerts Substance Reaction [...] can have partial fills on request [facility] [id number] #[id number], # 25 tablet, 0 Refills, Maintenance, 02/17/20 14:00:00 EDT, Tablet, [facility] 187, cm, 02/17/20 11:... Start Date: 02/17/20 Status: Ordered Colace Capsule 100 mg, 1, capsule, By Mouth, 2 times a day, Refills 0, Maintenance, 11/16/19 9:33:00 EDT Start Date: 11/16/19 Status: Ordered Controlled Substance Agreement Controlled Substance Agreement, See Instructions, # 1 each, Refills 0, Tot. 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 Start Date: 09/13/20 Status: Ordered ergocalciferol 14761 iu oral capsule See Instructions, Start from [...] EDT, Dry Weight Start Date: 09/02/20 Status: Ordered fentanyl 12 mcg/hr transdermal film, extended release PLACE 1 PATCH ONTO SKIN EVERY 48 HOURS (REFLECTS FREQUENCY CHANGE) Start Date: 08/31/20 Status: Ordered ferrous sulfate 325 mg oral [...] a schedu... Start Date: 07/28/20 Status: Ordered nalOXONE Once, 0 Refills, Maintenance, 03/03/20 14:34:00 EST Start Date: 03/03/20 Status: Ordered Callaway 325 mg-5 mg oral tablet 1-2 tablet, By Mouth, Every 4 hours, PRN pain, MAX 9 tabs/day. 7 day supply, # 63 tablet, 0 Refills, Maintenance, 09/12/20 11:05:00 EDT, Tablet, [facility], Partial fill upon patientrequest. Previous rx was shorted #7 tabs., 1-2 tablet B... Start Date: 09/12/20 Status: Ordered omeprazole 40 mg oral enteric coated capsule 1 capsule = 40 mg, By Mouth, Daily, # 30 capsule, 0 Refills, Maintenance, 12/19/19 12:47:00 EDT, ECCapsule Start Date: 12/19/19 Status: Ordered Ondansetron By Mouth, PRN as needed for nausea/vomiting, 0 Refills, Maintenance, 08/31/20 10:15:00 EDT, Partialfill upon patient request if the prescription is for a schedule II opioid drug. Start Date: 08/31/20 Status: Ordered senna 187 mg oral tablet [...] by Fred Turk M.D. at [facility]. 3On 04/12/2015 underwent repining trapeziometacarpal joint reconstruction, right thumb status post revision trapeziometacarpal joint arthroplasty, right thumb, with loss of pin fixation by Fred Turk M.D. at [facility]. 4On 07/03/16 underwent revision failed arthroplasty, right thumb for failed revision of trapeziometacarpal joint arthroplasty by Fred Tukr M.D. at [facility]. 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
--- OUTSIDE RECORDS SUMMARY | 2023-11-09 00:38 | XMS_ITS | Continuity of Care Document ---
Author Organization [facility] Address [address] [place] [address]- Care Team Providers Care Tape Recording Machine Operator Name Role Phone Po Thania FALK Primary Care Physician [place] [facility] [place] 10[place]01/20 [facility] [address] [place] [id number] Allergies, Adverse Reactions, [...] can have partial fills on request [facility] [id number] #[id number], # 25 tablet, 0 Refills, Maintenance, 02/17/20 14:00:00 EDT, Tablet, [facility] 187, cm, 02/17/20 11:... Start Date: 02/17/20 Status: Ordered Colace Capsule 100 mg, 1, capsule, By Mouth, 2 times a day, Refills 0, Maintenance, 11/16/19 9:33:00 EDT Start Date: 11/16/19 Status: Ordered Controlled Substance Agreement Controlled Substance Agreement, See Instructions, # 1 each, Refills 0, Tot. Refills 0, Maintenance,Updated On: 07/28/2020 Pharmacy I: [facility] DX: M54.4 mechanical low back pain, M53.3 SI joint pain, 08/02/20 9:14:00 EDT, Supply Start Date: 08/02/20 Status: Ordered cyanocobalamin 1000 mcg/ml injectable solution INJECT 1000 MCG. SUBCUTANEOUSLY EVERY 4 WEEKS. Start Date: 05/12/20 Status: Ordered divalproex sodium 250 mg oral enteric coated tablet = 250 mg, By Mouth, 2 times a day, # 60 tablet, 2 Refills, Maintenance, 02/17/20 13:50:00 EDT, Tablet, [facility] 187, cm, 02/17/20 11:58:00 EDT, [...] a schedu... Start Date: 07/28/20 Status: Ordered melatonin 10 mg oral tablet 1 tablet = 10 mg, By Mouth, Daily at bedtime, PRN as needed for insomnia, 0 Refills, Maintenance, 09/29/20 8:08:00 EDT, Tablet, Partial fill upon patient request if the prescription is for a scheduleII opioid drug. Start Date: 09/29/20 Status: Ordered nalOXONE Once, 0 Refills, Maintenance, 03/03/20 14:34:00 EST Start Date: 03/03/20 Status: Ordered [place] 325 mg-5 mg oral tablet 1-2 tablet, By Mouth, Every 4 hours, PRN pain, MAX 6 tabs/day. Partial fill upon patient req., # 84tablet, 0 Refills, Maintenance, 09/29/20 8:29:00 EDT, Tablet Start Date: 09/29/20 Status: Ordered omeprazole 40 mg oral enteric [...] EDT, Route to Pharmacy Electronically, [facility], 187, cm, 02/17/20 11:58:00 EDT, Height, 102, kg, 02/12/20 12:29:00 EDT... Start Date: 02/17/20 Status: Ordered venlafaxine 150 mg oral capsule, extended release 150 mg, 1, capsule, By Mouth, Daily, # 30 capsule, Refills 0, Tot. Refills 0, Maintenance, 02/16/2013:50:00 EDT, Route to Pharmacy Electronically, [facility], 187, cm, 02/17/20 11:58:00 EDT, [...] Turk M.D. at [facility]. 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 at [facility]. 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
--- OUTSIDE RECORDS SUMMARY | 2023-11-09 00:38 | XMS_ITS | Continuity of Care Document ---
Author Organization [facility] Address [address] [place] [address]- Care Team Providers Care Magnetic Prospecting Supervisor Name Role Phone Po Thania FALK Primary Care Physician Encounter [facility] [place] Date(s): 05/17/20 - 06/16/20 [facility] [address] [place] [id number] Allergies, Adverse Reactions, Alerts [...] have partial fills on request [facility] [id number] #[id number], # 25 tablet, 0 Refills, Maintenance, 02/17/20 14:00:00 EDT, Tablet, [facility], 187, cm, 02/17/20 11:... Start [...] Maintenance, 02/17/20 13:50:00 EDT, Tablet, [facility], 187, cm, 02/17/20 11:58:00 EDT, Height, 102, kg, 02/12/20 12:29:00 EDT, Dry Weight Start Date: 02/17/20 Status: Ordered ergocalciferol 53469 iu oral capsule See Instructions, Start from [...] Maintenance, 05/25/20 17:06:00 EST, Patch, [facility], Partial fill upon patient request, [...] 14:34:00 EST Start Date: 03/03/20 Status: Ordered Ogilvie 325 mg-5 mg oral tablet 1 tablet, [...] EDT, Route to Pharmacy Electronically, [facility], 187, cm, 02/17/20 11:58:00 EDT, [...] right thumb by Fred Turk M.D. at [facility]. 3On 04/12/2015 underwent repining trapeziometacarpal joint reconstruction, right thumb status post revision trapeziometacarpal joint arthroplasty, right thumb, with loss of pin fixation by Fred Tukr M.D. at [facility]. 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 at [facility]. 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
--- OUTSIDE RECORDS SUMMARY | 2023-11-09 00:38 | XMS_ITS | Continuity of Care Document ---
Author Organization [facility] Address [address] [place] [address]- Care Team Providers Care Equipment Monitor Phototypesetting Name Role Phone Po Thania FALK Primary Care Physician [phone] Encounter [facility] [place] Date(s): 10/27/20 - 11/26/20 [facility] [address] [place] [id number] Allergies, Adverse Reactions, Alerts Substance Reaction [...] Pt can have partial fills on request [facility] [id number] #[id number], # 25 tablet, 0 Refills, Maintenance, 02/17/20 [...] On: 07/28/2020 Pharmacy I: [facility] DX: M54.4 mechanical low back [...] 13:50:00 EDT, Route to Pharmacy Electronically, [facility], 187, cm, 02/17/20 11:58:00 EDT, Height, 102, kg, 02/12/20 12:29:00 EDT... Start Date: 02/17/20 Status: Ordered venlafaxine 150 mg oral capsule, extended release 150 mg, 1, capsule, By Mouth, Daily, # 30 capsule, Refills 0, Tot. Refills 0, Maintenance, 02/16/2013:50:00 EDT, Route to Pharmacy Electronically, [facility], 187, cm, 02/17/20 11:58:00 EDT, [...] thumb by Fred Turk M.D. at [facility]. 3On 04/12/2015 underwent repining trapeziometacarpal joint reconstruction, right thumb status post revision trapeziometacarpal joint arthroplasty, right thumb, with loss of pin fixation by Fred Turk M.D. at [facility]. 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 at [facility]. 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 8Updated Oswestry Disability Index: 40% moderate disability and [place] Back Pain Disability Scale:27 on 10/08/18. 9Updated Oswestry Disability Index: 50% ( severe disability ) on 07/29/17; updated [place] Back Pain Disability Scale score: 52 on 07/29/17. 10Updated Oswestry Disability Index: 36% moderate disability and [place] Back Pain Disability Scale:24 on 08/25/2015. 11Initial [place] Back Pain Disability Scale: 27 on 03/12/2012; initial Oswestry Disability Index: 54%( severe disability ) on 03/12/2012. 12multiple surgeries--first in 1998 13ACE score 6 on 07/29/17 Social History Social History Type Response Smoking Status Former smoker; Other : quit 35 years ago; entered on: 11/11/17 Sex Male
--- OUTSIDE RECORDS SUMMARY | 2023-11-09 00:38 | XMS_ITS | Continuity of Care Document ---
Author Organization [facility] Address [address] [place] [address]- Care Team Providers Care Malt Loader Name Role Phone Po Thania FALK Primary Care Physician Encounter [facility] [place] Date(s): 12/28/20 - 02/03/21 [facility] [address] [place] [id number]- Attending Physician: Not on Staff, Attending MD [...] opioid drug. Start Date: 07/28/20 Status: Ordered Belbuca 150 mcg buccal film 1 film = 150 mcg, By Mouth, Every 12 hours, place film on inside of cheek and avoid food or drink until completely dissolved, # 56 film, 1 Refills, Maintenance, 01/23/21 9:21:00 EDT, [email or web address], JONATHAN 1, 187, cm, 12/26/20 9:24:00 EDT, Nya... Start Date: 01/23/21 Status: Ordered Jose Maria-Emu Super Strength topical [...] Refills 0, Maintenance,Updated On: 07/28/2020 Pharmacy I: [facility] DX: M54.4 mechanical low back pain, [...] EDT, ECCapsule Start Date: 12/19/19 Status: Ordered Ozempic 2 mg/1.5 mL (0.25 mg or 0.5 mg dose) subcutaneous solution INJECT 0.25MG (0.2 ML) UNDER THE SKIN EVERY 7 DAYS FOR 4 DOSES Start Date: 12/26/20 Status: Ordered senna 187 mg oral tablet [...] Active Anemia following surgery(Confirmed) Active Abdominal pain, central(Confirmed) [...] left hip fracture by Jos Locke at [facility] 6On 11/13/19 underwent revision hemiarthroplasty with [...]
--- OUTSIDE RECORDS SUMMARY | 2023-11-09 00:38 | XMS_ITS | Continuity of Care Document ---
Author Organization [facility] Address [address] [place] [address]- Care Team Providers Care Chart Reader Name Role Phone Po Thania FALK Primary Care Physician [place] [facility] [place] 07/09/20 [facility] [address] [place] [id number] Allergies, Adverse Reactions, Alerts Substance [...] have partial fills on request [facility] [id number] #[id number], # 25 tablet, 0 Refills, Maintenance, 02/17/20 14:00:00 EDT, Tablet, [facility], 187, cm, 02/17/20 11:... Start [...] Maintenance, 02/17/20 13:50:00 EDT, Tablet, [facility], 187, cm, 02/17/20 11:58:00 EDT, Height, 102, kg, 02/12/20 12:29:00 EDT, Dry Weight Start Date: 02/17/20 Status: Ordered ergocalciferol 85131 iu oral capsule See Instructions, Start from [...] 14:34:00 EST Start Date: 03/03/20 Status: Ordered [place] 325 mg-5 mg oral tablet 1 tablet, [...] EDT, Route to Pharmacy Electronically, [facility], 187, cm, 02/17/20 11:58:00 EDT, [...] Fred Turk M.D. at [facility]. 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 8Updated Oswestry Disability Index: 40% moderate disability and [place] Back Pain Disability Scale:27 on 10/08/18. 9Updated Oswestry Disability Index: 50% ( severe disability ) on 07/29/17; updated [place] Back Pain Disability Scale score: 52 on 07/29/17. 10Updated Oswestry Disability Index: 36% moderate disability and [place] Back Pain Disability Scale:24 on 08/25/2015. 11Initial [place] Back Pain Disability Scale: 27 on 03/12/2012; initial Oswestry Disability Index: 54%( severe disability ) on 03/12/2012. 12multiple surgeries--first in 1998 13ACE score 6 on 07/29/17 Social History Social History Type Response Smoking Status Former smoker; Other : quit 35 years ago; entered on: 11/11/17 Sex Male
--- OUTSIDE RECORDS SUMMARY | 2023-11-09 00:38 | XMS_ITS | Continuity of Care Document ---
Author Organization [facility] Address [address] [place] [address]- Care Team Providers Care Measurer Name Role Phone Po Thania FALK Primary Care Physician [phone] Encounter [facility] Date(s): 09/07/20 - 10/07/20 [facility] [address] [place] [id number] Allergies, Adverse Reactions, [...] can have partial fills on request [facility] [id number] #[id number], # 25 tablet, 0 Refills, Maintenance, 02/17/20 14:00:00 EDT, Tablet, [facility] 187, cm, 02/17/20 11:... Start Date: 02/17/20 Status: Ordered Colace Capsule 100 mg, 1, capsule, By Mouth, 2 times a day, Refills 0, Maintenance, 11/16/19 9:33:00 EDT Start Date: 11/16/19 Status: Ordered Controlled Substance Agreement Controlled Substance Agreement, See Instructions, # 1 each, Refills 0, Tot. Refills 0, Maintenance,Updated On: 07/28/2020 Pharmacy I: [facility] DX: M54.4 mechanical low back [...] 2 Refills, Maintenance, 02/17/20 13:50:00 EDT, Tablet, [facility] 187, cm, 02/17/20 11:58:00 [...] 14:34:00 EST Start Date: 03/03/20 Status: Ordered [place] 325 mg-5 mg oral tablet 1-2 tablet, By Mouth, Every 4 hours, PRN pain, MAX 6 tabs/day. Partial fill upon patient req., # 84tablet, 0 Refills, Maintenance, 10/04/20 16:42:00 EDT, Tablet Start Date: 10/04/20 Status: Ordered omeprazole 40 mg oral enteric [...] EDT, Route to Pharmacy Electronically, [facility], 187, cm, 02/17/20 11:58:00 EDT, Height, 102, kg, 02/12/20 12:29:00 EDT... Start Date: 02/17/20 Status: Ordered venlafaxine 150 mg oral capsule, extended release 150 mg, 1, capsule, By Mouth, Daily, # 30 capsule, Refills 0, Tot. Refills 0, Maintenance, 02/16/2013:50:00 EDT, Route to Pharmacy Electronically, [facility], 187, cm, 02/17/20 11:58:00 EDT, [...] right thumb by Fred Turk M.D. at [facility]. 3On 04/12/2015 underwent repining trapeziometacarpal joint reconstruction, right thumb status post revision trapeziometacarpal joint arthroplasty, right thumb, with loss of pin fixation by Fred Turk M.D. at [facility]. 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 at [facility]. 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 8Updated Oswestry Disability Index: 40% moderate disability and [place] Back Pain Disability Scale:27 on 10/08/18. 9Updated Oswestry Disability Index: 50% ( severe disability ) on 07/29/17; updated [place] Pain Disability Scale score: 52 on 07/29/17. 10Updated Oswestry Disability Index: 36% moderate disability and [place] Back Pain Disability Scale:24 on 08/25/2015. 11Initial [place] Back Pain Disability Scale: 27 on 03/12/2012; initial Oswestry Disability Index: 54%( severe disability ) on 03/12/2012. 12multiple surgeries--first in 1998 13ACE score 6 on 07/29/17 Social History Social History Type Response Smoking Status Former smoker; Other : quit 35 years ago; entered on: 11/11/17 Sex Male
--- OUTSIDE RECORDS SUMMARY | 2023-11-09 00:38 | XMS_ITS | Continuity of Care Document ---
Author Organization [facility] Address [address] [place] [address]- Care Team Providers Care Director Network Development Name Role Phone Po Thania FALK Primary Care Physician [place] [facility] [place] 07/28/20 - 08/27/20 [facility] [address] [place] [email or web address] Allergies, Adverse Reactions, Alerts Substance Reaction Severity [...] can have partial fills on request [facility] [id number] #[id number], # 25 tablet, 0 Refills, Maintenance, 02/17/20 14:00:00 EDT, Tablet, [facility] 187, cm, 02/17/20 11:... Start Date: 02/17/20 Status: Ordered Colace Capsule 100 mg, 1, capsule, By Mouth, 2 times a day, Refills 0, Maintenance, 11/16/19 9:33:00 EDT Start Date: 11/16/19 Status: Ordered Controlled Substance Agreement Controlled Substance Agreement, See Instructions, # 1 each, Refills 0, Tot. Refills 0, Maintenance,Updated On: 07/28/2020 Pharmacy I: [facility] DX: M54.4 mechanical [...] 2 Refills, Maintenance, 02/17/20 13:50:00 EDT, Tablet, [facility] 187, cm, 02/17/20 11:58:00 EDT, Height, 102, kg, 02/12/20 12:29:00 EDT, Dry Weight Start Date: 02/17/20 Status: Ordered ergocalciferol 79226 iu oral capsule See Instructions, Start from [...] 14:34:00 EST Start Date: 03/03/20 Status: Ordered [place] 325 mg-5 mg oral tablet 1 tablet, [...] 02/17/20 13:50:00 EDT, Route to Pharmacy Electronically, [facility], 187, cm, 02/17/20 11:58:00 EDT, Height, 102, kg, 02/12/20 12:29:00 EDT... Start Date: 02/17/20 Status: Ordered venlafaxine 150 mg oral capsule, extended release 150 mg, 1, capsule, By Mouth, Daily, # 30 capsule, Refills 0, Tot. Refills 0, Maintenance, 02/16/2013:50:00 EDT, Route to Pharmacy Electronically, [facility], 187, cm, 02/17/20 11:58:00 EDT, [...] right thumb by Fred Turk M.D. at [facility]. 3On 04/12/2015 underwent repining trapeziometacarpal joint reconstruction, right thumb status post revision trapeziometacarpal joint arthroplasty, right thumb, with loss of pin fixation by Fred Turk M.D. at [facility]. 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 at [facility]. 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 8Updated Oswestry Disability Index: 40% moderate disability and [place] Back Pain Disability Scale:27 on 10/08/18. 9Updated Oswestry Disability Index: 50% ( severe disability ) on 07/29/17; updated [place] Pain Disability Scale score: 52 on 07/29/17. 10Updated Oswestry Disability Index: 36% moderate disability and [place] Back Pain Disability Scale:24 on 08/25/2015. 11Initial [place] Back Pain Disability Scale: 27 on 03/12/2012; initial Oswestry Disability Index: 54%( severe disability ) on 03/12/2012. 12multiple surgeries--first in 1998 13ACE score 6 on 07/29/17 Social History Social History Type Response Smoking Status Former smoker; Other : quit 35 years ago; entered on: 11/11/17 Sex Male
--- OUTSIDE RECORDS SUMMARY | 2023-11-09 00:38 | XMS_ITS | Continuity of Care Document ---
Author Organization [facility] Address [address] [place] [address]- Care Team Providers Care Levi Maker Name Role Phone Wojciech FALK, Ayo Primary Care Physician Encounter [facility] [place] Date(s): 01/05/20 - 02/04/20 [facility] [address] [place] [id number] [facility] Allergies, Adverse Reactions, Alerts Substance Reaction Severity [...] right thumb by Fred Turk M.D. at [facility]. 3On 04/12/2015 underwent repining trapeziometacarpal joint reconstruction, right thumb status post revision trapeziometacarpal joint arthroplasty, right thumb, with loss of pin fixation by Fred Turk M.D. at [facility]. 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 at [facility]. 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 8Updated Oswestry Disability Index: 50% ( severe disability ) on 07/29/17; updated [place] Pain Disability Scale score: 52 on 07/29/17. 9Updated Oswestry Disability Index: 36% moderate disability and [place] Pain Disability Scale:24 on 08/25/2015. 10Initial [place] Back Pain Disability Scale: 27 on 03/12/2012; initial [place]estry Disability Index: 54%( severe disability ) on 03/12/2012. 11multiple surgeries--first in 1998 12ACE score 6 on 07/29/17 Social History Social History Type Response Smoking Status Former smoker; Other : quit 35 years ago; entered on: 11/11/17 Sex Male
--- OUTSIDE RECORDS SUMMARY | 2023-11-09 00:38 | XMS_ITS | Continuity of Care Document ---
Author Organization [facility] Address [address] [place] [address]- Care Team Providers Care Armature And Rotor Winder Name Role Phone Po Thania FALK Primary Care Physician Encounter [facility] [place](s): 09/06/20 - 10/06/20 [facility] [address] [place] [id number] [place] Allergies, Adverse Reactions, Alerts Substance Reaction Severity [...] can have partial fills on request [facility] [id number] #[id number], # 25 tablet, 0 Refills, Maintenance, 02/17/20 14:00:00 EDT, Tablet, [facility] 187, cm, 02/17/20 11:... Start Date: 02/17/20 Status: Ordered Colace Capsule 100 mg, 1, capsule, By Mouth, 2 times a day, Refills 0, Maintenance, 11/16/19 9:33:00 EDT Start Date: 11/16/19 Status: Ordered Controlled Substance Agreement Controlled Substance Agreement, See Instructions, # 1 each, Refills 0, Tot. Refills 0, Maintenance,Updated On: 07/28/2020 Pharmacy I: [facility] DX: M54.4 mechanical low back [...] 2 Refills, Maintenance, 02/17/20 13:50:00 EDT, Tablet, [facility] 187, cm, 02/17/20 11:58:00 EDT, [...] 14:34:00 EST Start Date: 03/03/20 Status: Ordered [place] 325 mg-5 mg oral tablet 1-2 tablet, [...] EDT, Route to Pharmacy Electronically, [facility], 187, cm, 02/17/20 11:58:00 EDT, Height, 102, kg, 02/12/20 12:29:00 EDT... Start Date: 02/17/20 Status: Ordered venlafaxine 150 mg oral capsule, extended release 150 mg, 1, capsule, By Mouth, Daily, # 30 capsule, Refills 0, Tot. Refills 0, Maintenance, 02/16/2013:50:00 EDT, Route to Pharmacy Electronically, [facility], 187, cm, 02/17/20 11:58:00 EDT, [...] right thumb by Fred Turk M.D. at [facility]. 3On 04/12/2015 underwent repining trapeziometacarpal joint reconstruction, right thumb status post revision trapeziometacarpal joint arthroplasty, right thumb, with loss of pin fixation by Fred Turk M.D. at [facility]. 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 at [facility]. 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 8Updated Oswestry Disability Index: 40% moderate disability and [place] Back Pain Disability Scale:27 on 10/08/18. 9Updated Oswestry Disability Index: 50% ( severe disability ) on 07/29/17; updated [place] Back Pain Disability Scale score: 52 on 07/29/17. 10Updated Oswestry Disability Index: 36% moderate disability and [place] Back Pain Disability Scale:24 on 08/25/2015. 11Initial [place] Back Pain Disability Scale: 27 on 03/12/2012; initial Oswestry Disability Index: 54%( severe disability ) on 03/12/2012. 12multiple surgeries--first in 1998 13ACE score 6 on 07/29/17 Social History Social History Type Response Smoking Status Former smoker; Other : quit 35 years ago; entered on: 11/11/17 Sex Male
--- OUTSIDE RECORDS SUMMARY | 2023-11-09 00:38 | XMS_ITS | Continuity of Care Document ---
Author Organization [facility] Address [address] [place] [address]- Care Team Providers Care Weight Loss Centre Manager Name Role Phone Po Thania FALK Primary Care Physician [phone] [place] [facility] [place] [facility] [place] - 02/11/21 [facility] [address] [place] [address]- Allergies, Adverse Reactions, Alerts Substance Reaction Severity [...] film, 1 Refills, Maintenance, 01/23/21 9:21:00 EDT, [facility], JONATHAN 1, 187, cm, 12/26/20 [...] Refills 0, Maintenance,Updated On: 07/28/2020 Pharmacy I: [facility] DX: M54.4 mechanical low back [...]
--- OUTSIDE RECORDS SUMMARY | 2023-11-09 00:38 | XMS_ITS | Continuity of Care Document ---
Author Organization [facility] Address [address] [place] [address]- Care Team Providers Care Latex Spooler Name Role Phone Po Thania FALK Primary Care Physician Encounter [facility] Date(s): 09/12/20 - 10/12/20 [facility] [address] [place] [id number] Allergies, Adverse Reactions, [...] can have partial fills on request [facility] [id number] #[id number], # 25 tablet, 0 Refills, Maintenance, 02/17/20 14:00:00 EDT, Tablet, [email or web address] 187, cm, 02/17/20 11:... Start Date: 02/17/20 Status: Ordered Colace Capsule 100 mg, 1, capsule, By Mouth, 2 times a day, Refills 0, Maintenance, 11/16/19 9:33:00 EDT Start Date: 11/16/19 Status: Ordered Controlled Substance Agreement Controlled Substance Agreement, See Instructions, # 1 each, Refills 0, Tot. Refills 0, Maintenance,Updated On: 07/28/2020 Pharmacy I: [facility] DX: M54.4 mechanical low back [...] 2 Refills, Maintenance, 02/17/20 13:50:00 EDT, Tablet, [email or web address] 187, cm, 02/17/20 11:58:00 EDT, [...] 14:34:00 EST Start Date: 03/03/20 Status: Ordered [place] 325 mg-5 mg oral tablet 1-2 tablet, [...] EDT, Route to Pharmacy Electronically, [facility], 187, cm, 02/17/20 11:58:00 EDT, Height, 102, kg, 02/12/20 12:29:00 EDT... Start Date: 02/17/20 Status: Ordered venlafaxine 150 mg oral capsule, extended release 150 mg, 1, capsule, By Mouth, Daily, # 30 capsule, Refills 0, Tot. Refills 0, Maintenance, 02/16/2013:50:00 EDT, Route to Pharmacy Electronically, [facility], 187, cm, 02/17/20 11:58:00 EDT, [...] right thumb by Fred Turk M.D. at [facility]. 3On 04/12/2015 underwent repining trapeziometacarpal joint reconstruction, right thumb status post revision trapeziometacarpal joint arthroplasty, right thumb, with loss of pin fixation by Fred Turk M.D. at [facility]. 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 at [facility]. 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 8Updated Oswestry Disability Index: 40% moderate disability and [place] Back Pain Disability Scale:27 on 10/08/18. 9Updated Oswestry Disability Index: 50% ( severe disability ) on 07/29/17; updated [place] Back Pain Disability Scale score: 52 on 07/29/17. 10Updated Oswestry Disability Index: 36% moderate disability and [place] Back Pain Disability Scale:24 on 08/25/2015. 11Initial [place] Back Pain Disability Scale: 27 on 03/12/2012; initial Oswestry Disability Index: 54%( severe disability ) on 03/12/2012. 12multiple surgeries--first in 1998 13ACE score 6 on 07/29/17 Social History Social History Type Response Smoking Status Former smoker; Other : quit 35 years ago; entered on: 11/11/17 Sex Male
--- OUTSIDE RECORDS SUMMARY | 2023-11-09 00:38 | XMS_ITS | Continuity of Care Document ---
Author Organization [facility] Address [address] [place] [address]- Care Team Providers Care Computer Technical Support Specialist Name Role Phone Po Thania FALK Primary Care Physician [phone] [place] [facility] [place] 10/11/20 - 11/10/20 [facility] [address] [place] [id number] Allergies, Adverse [...] MAX 9 tabs/... Start Date: 11/07/20 Status: Ordered acetaminophen/butalbital/caffeine 325 mg-50 mg-40 mg [...] 4 Refills, Maintenance, 02/17/20 13:49:00 EDT, Tablet, [facility], 187, cm, 02/17/20 11:58:00 EDT, [...] have partial fills on request [facility] [id number] #[id number], # 25 tablet, 0 Refills, Maintenance, 02/17/20 14:00:00 EDT, Tablet, [facility], 187, cm, 02/17/20 11:... Start Date: 02/17/20 Status: Ordered Jose Maria-Emu Super Strength topical [...] Refills 0, Maintenance,Updated On: 07/28/2020 Pharmacy I: [facility] DX: M54.4 mechanical low back pain, M53.3 [...] Status: Ordered meclizine 12.5 mg oral tablet 1-2 tablets, By Mouth, 4 times a day, PRN nausea/vertigo, # 224 tablet, 2 Refills, Maintenance, 10/27/20 12:29:00 EDT, [facility], 187, cm, 09/29/20 8:13:00 EDT, Height, 102, kg, 02/12/20 12:29:00 EDT, Dry Weight Start Date: 10/27/20 Status: Ordered melatonin 5 mg oral capsule 1 capsule = 5 mg, By Mouth, Daily at bedtime, 0 Refills, Maintenance, 11/10/20 9:46:00 EDT, Partialfill upon patient request if the prescription is for a schedule II opioid drug. Start Date: 11/10/20 Status: Ordered nalOXONE Once, 0 Refills, Maintenance, 03/03/20 14:34:00 EST Start Date: 03/03/20 Status: Ordered [place] 325 mg-5 mg oral tablet 1-2 tablet, By Mouth, Every 4 hours, PRN pain, MAX 9 tabs/day. RX 2 of 2, # 84 tablet, 0 Refills, Maintenance, 11/07/20 13:08:00 EDT, Tablet, [facility], Partial fill upon patient request, 1-2 tablet By Mouth Every 4 hours,Instr:PRN pain,... Start Date: 11/07/20 Status: Ordered omeprazole 40 mg oral enteric [...] 02/17/20 13:50:00 EDT, Route to Pharmacy Electronically, [facility], 187, cm, 02/17/20 11:58:00 EDT, Height, 102, kg, 02/12/20 12:29:00 EDT... Start Date: 02/17/20 Status: Ordered venlafaxine 150 mg oral capsule, extended release 150 mg, 1, capsule, By Mouth, Daily, # 30 capsule, Refills 0, Tot. Refills 0, Maintenance, 02/16/2013:50:00 EDT, Route to Pharmacy Electronically, [facility], 187, cm, 02/17/20 11:58:00 EDT, [...] thumb by Fred Turk M.D. at [facility]. 3On 04/12/2015 underwent repining trapeziometacarpal joint reconstruction, right thumb status post revision trapeziometacarpal joint arthroplasty, right thumb, with loss of pin fixation by Fred Turk M.D. at [facility]. 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 at [facility]. 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
--- OUTSIDE RECORDS SUMMARY | 2023-11-09 00:38 | XMS_ITS | Continuity of Care Document ---
Author Organization [facility] Address [address] [place] [address]- Care Team Providers Care Appliance Counselor Name Role Phone Po Thania FALK Primary Care Physician [place] [facility] [place] 08/19/20 - 09/18/20 [facility] [address] [place] [id number] Allergies, Adverse Reactions, Alerts [...] can have partial fills on request [facility] [id number] #[id number], # 25 tablet, 0 Refills, Maintenance, 02/17/20 14:00:00 EDT, Tablet, [facility] 187, cm, 02/17/20 11:... Start Date: 02/17/20 Status: Ordered Colace Capsule 100 mg, 1, capsule, By Mouth, 2 times a day, Refills 0, Maintenance, 11/16/19 9:33:00 EDT Start Date: 11/16/19 Status: Ordered Controlled Substance Agreement Controlled Substance Agreement, See Instructions, # 1 each, Refills 0, Tot. Refills 0, Maintenance,Updated On: 07/28/2020 Pharmacy I: [facility] DX: M54.4 mechanical low back [...] 2 Refills, Maintenance, 02/17/20 13:50:00 EDT, Tablet, [facility] 187, cm, 02/17/20 11:58:00 EDT, [...] EDT,... Start Date: 09/13/20 Status: Ordered ergocalciferol 18380 iu oral capsule See Instructions, Start from [...] 14:34:00 EST Start Date: 03/03/20 Status: Ordered [place] 325 mg-5 mg oral tablet 1-2 tablet, [...] right thumb by Fred Turk M.D. at [facility]. 3On 04/12/2015 underwent repining trapeziometacarpal joint reconstruction, right thumb status post revision trapeziometacarpal joint arthroplasty, right thumb, with loss of pin fixation by Fred Turk M.D. at [facility]. 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 at [facility]. 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 8Updated Oswestry Disability Index: 40% moderate disability and [place] Back Pain Disability Scale:27 on 10/08/18. 9Updated Oswestry Disability Index: 50% ( severe disability ) on 07/29/17; updated [place] Pain Disability Scale score: 52 on 07/29/17. 10Updated Oswestry Disability Index: 36% moderate disability and [place] Back Pain Disability Scale:24 on 08/25/2015. 11Initial [place] Back Pain Disability Scale: 27 on 03/12/2012; initial Oswestry Disability Index: 54%( severe disability ) on 03/12/2012. 12multiple surgeries--first in 1998 13ACE score 6 on 07/29/17 Social History Social History Type Response Smoking Status Former smoker; Other : quit 35 years ago; entered on: 11/11/17 Sex Male
--- OUTSIDE RECORDS SUMMARY | 2023-11-09 00:38 | XMS_ITS | Continuity of Care Document ---
Author Organization [facility] Address [address] [place] [address]- Care Team Providers Care Fund Manager Name Role Phone Po Thania FALK Primary Care Physician [phone] Encounter [facility] [place] Date(s): 06/15/21 - 07/15/21 [facility] [address] [place] [id number]- Attending Physician: Eva Nugent Allergies, Adverse Reactions, [...] On: 07/28/2020 Pharmacy I: [facility] DX: M54.4 mechanical low back pain, M53.3 [...] right thumb by Fred Turk M.D. at [facility]. 3On 04/12/2015 underwent repining trapeziometacarpal joint reconstruction, right thumb status post revision trapeziometacarpal joint arthroplasty, right thumb, with loss of pin fixation by Fred Turk M.D. at [facility]. 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 at [facility]. 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
--- OUTSIDE RECORDS SUMMARY | 2023-11-09 00:38 | XMS_ITS | Continuity of Care Document ---
Author Organization [facility] Address [address] [place] [address]- Care Team Providers Care Access Spec Name Role Phone Po Thania FALK Primary Care Physician [place] [facility] [place]/23/21 - 02/22/21 [facility] [address] [place] [address]- Allergies, Adverse Reactions, Alerts Substance Reaction Severity [...] On: 07/28/2020 Pharmacy I: [facility] DX: M54.4 mechanical low back [...] right thumb by Fred Turk M.D. at [facility]. 3On 04/12/2015 underwent repining trapeziometacarpal joint reconstruction, right thumb status post revision trapeziometacarpal joint arthroplasty, right thumb, with loss of pin fixation by Fred Turk M.D. at [facility]. 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 at [facility]. 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
--- OUTSIDE RECORDS SUMMARY | 2023-11-09 00:38 | XMS_ITS | Continuity of Care Document ---
Author Organization [facility] Address [address] [place] [address]- Care Team Providers Care Lapping Machine Tender Name Role Phone Po Thania FALK Primary Care Physician [place] [facility] [place] Date(s): 04/15/20 - 05/15/20 [facility] [address] [place] [id number] Allergies, Adverse Reactions, Alerts [...] can have partial fills on request [facility] [id number] #[id number], # 25 tablet, 0 Refills, Maintenance, 02/17/20 [...] Maintenance, 02/17/20 13:50:00 EDT, Tablet, [facility], 187, cm, 02/17/20 11:58:00 EDT, Height, 102, kg, 02/12/20 12:29:00 EDT, Dry Weight Start Date: 02/17/20 Status: Ordered ergocalciferol 28557 iu oral capsule See Instructions, Start from [...] [place], 05/12/20 8... Start Date: 05/13/20 Status: Ordered fexofenadine 180 mg oral tablet [...] 14:34:00 EST Start Date: 03/03/20 Status: Ordered [place] 325 mg-5 mg oral tablet 0.5 -1 tablet, By Mouth, Every 4 hours, PRN pain, max 5 tabs daily, # 140 tablet, 0 Refills, Maintenance, 05/02/20 13:13:00 EST, Tablet, [facility], Partial fill upon patient request, 0.5 -1 tablet By Mouth Every 4 hours,PRN:pain,Instr:ma... Start Date: 05/02/20 Status: Ordered omeprazole 40 mg oral enteric [...] thumb by Fred Turk M.D. at [facility]. 3On 04/12/2015 underwent repining trapeziometacarpal joint reconstruction, right thumb status post revision trapeziometacarpal joint arthroplasty, right thumb, with loss of pin fixation by Fred Turk M.D. at [facility]. 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 at [facility]. 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
--- OUTSIDE RECORDS SUMMARY | 2023-11-09 00:39 | XMS_ITS | Continuity of Care Document ---
Author Organization [facility] Address [address] [place] [address]- Care Team Providers Care Shuttle Bus Driver Name Role Phone Po Thania FALK Primary Care Physician [place] [facility] [place] 12/27/20 - 01/26/21 [facility] [address] [place] [address]- Allergies, Adverse Reactions, Alerts Substance Reaction Severity [...] film, 1 Refills, Maintenance, 01/23/21 9:21:00 EDT, [facility], JONATHAN 1, 187, cm, 12/26/20 [...] Refills 0, Maintenance,Updated On: 07/28/2020 Pharmacy I: [facility] DX: M54.4 mechanical low back pain, [...] right thumb by Fred Turk M.D. at [facility]. 3On 04/12/2015 underwent repining trapeziometacarpal joint reconstruction, right thumb status post revision trapeziometacarpal joint arthroplasty, right thumb, with loss of pin fixation by Fred Turk M.D. at [facility]. 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 at [facility]. 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 7Updated Oswestry Disability Index: 47% [...]
--- OUTSIDE RECORDS SUMMARY | 2023-11-09 00:39 | XMS_ITS | Continuity of Care Document ---
Author Organization [facility] Address [address] [place] [address]- Care Team Providers Care Bearing Inspector Name Role Phone Po Thania FALK Primary Care Physician [place] [facility] [place] - 10[place]06/20 [facility] [address] [place] [id number] Allergies, [...] can have partial fills on request [facility] [id number] #[id number], # 25 tablet, 0 Refills, Maintenance, 02/17/20 14:00:00 EDT, Tablet, [facility] 187, cm, 02/17/20 11:... Start Date: 02/17/20 Status: Ordered Colace Capsule 100 mg, 1, capsule, By Mouth, 2 times a day, Refills 0, Maintenance, 11/16/19 9:33:00 EDT Start Date: 11/16/19 Status: Ordered Controlled Substance Agreement Controlled Substance Agreement, See Instructions, # 1 each, Refills 0, Tot. Refills 0, Maintenance,Updated On: 07/28/2020 Pharmacy I: [facility] DX: M54.4 mechanical low back pain, [...] 2 Refills, Maintenance, 02/17/20 13:50:00 EDT, Tablet, [facility] 187, cm, 02/17/20 11:58:00 EDT, [...] 14:34:00 EST Start Date: 03/03/20 Status: Ordered [place] 325 mg-5 mg oral tablet 1-2 tablet, [...] EDT, Route to Pharmacy Electronically, [facility], 187, cm, 02/17/20 11:58:00 EDT, Height, 102, kg, 02/12/20 12:29:00 EDT... Start Date: 02/17/20 Status: Ordered venlafaxine 150 mg oral capsule, extended release 150 mg, 1, capsule, By Mouth, Daily, # 30 capsule, Refills 0, Tot. Refills 0, Maintenance, 02/16/2013:50:00 EDT, Route to Pharmacy Electronically, [facility], 187, cm, 02/17/20 11:58:00 EDT, [...] hip fracture by Jos Locke at [facility] 6On 11/13/19 underwent revision hemiarthroplasty with conversion [...]
--- OUTSIDE RECORDS SUMMARY | 2023-11-09 00:39 | XMS_ITS | Continuity of Care Document ---
Author Organization [facility] Address [address] [place] [address]- Care Team Providers Care Processing Mgr Name Role Phone Po Thania FALK Primary Care Physician Encounter [facility] Date(s): 10/28/20 - 11/27/20 [facility] [address] [place] [id number] Allergies, Adverse Reactions, Alerts Substance Reaction [...] partial fills on request [facility] [id number] #[id number], # 25 tablet, 0 Refills, Maintenance, 02/17/20 [...] Maintenance,Updated On: 07/28/2020 Pharmacy I: [facility] DX: M54.4 mechanical low back [...] 13:50:00 EDT, Route to Pharmacy Electronically, [facility], 187, cm, 02/17/20 11:58:00 EDT, Height, 102, kg, 02/12/20 12:29:00 EDT... Start Date: 02/17/20 Status: Ordered venlafaxine 150 mg oral capsule, extended release 150 mg, 1, capsule, By Mouth, Daily, # 30 capsule, Refills 0, Tot. Refills 0, Maintenance, 02/16/2013:50:00 EDT, Route to Pharmacy Electronically, [facility], 187, cm, 02/17/20 11:58:00 EDT, [...] right thumb by Fred Turk M.D. at [facility]. 3On 04/12/2015 underwent repining trapeziometacarpal joint reconstruction, right thumb status post revision trapeziometacarpal joint arthroplasty, right thumb, with loss of pin fixation by Fred Turk M.D. at [facility]. 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 at [facility]. 5On04/09/17 underwent left hip replacement for left hip fracture by Jos Locke at 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
--- OUTSIDE RECORDS SUMMARY | 2023-11-09 00:39 | XMS_ITS | Continuity of Care Document ---
Author Organization [facility] Address [address] [place] [address]- Care Team Providers Care Restoration Officer Name Role Phone Po Thania FALK Primary Care Physician [phone] Encounter [facility] [place] Date(s): 09/12/20 - 10/12/20 [facility] [address] [place] [id number] Allergies, Adverse Reactions, Alerts Substance [...] can have partial fills on request [facility] [id number] #[id number], # 25 tablet, 0 Refills, Maintenance, 02/17/20 14:00:00 EDT, Tablet, [facility] 187, cm, 02/17/20 11:... Start Date: 02/17/20 Status: Ordered Colace Capsule 100 mg, 1, capsule, By Mouth, 2 times a day, Refills 0, Maintenance, 11/16/19 9:33:00 EDT Start Date: 11/16/19 Status: Ordered Controlled Substance Agreement Controlled Substance Agreement, See Instructions, # 1 each, Refills 0, Tot. Refills 0, Maintenance,Updated On: 07/28/2020 Pharmacy I: [facility] DX: M54.4 mechanical low back pain, [...] 2 Refills, Maintenance, 02/17/20 13:50:00 EDT, Tablet, [facility] 187, cm, 02/17/20 11:58:00 EDT, [...] 14:34:00 EST Start Date: 03/03/20 Status: Ordered [place] 325 mg-5 mg oral tablet 1-2 tablet, [...] EDT, Route to Pharmacy Electronically, [facility], 187, cm, 02/17/20 11:58:00 EDT, Height, 102, kg, 02/12/20 12:29:00 EDT... Start Date: 02/17/20 Status: Ordered venlafaxine 150 mg oral capsule, extended release 150 mg, 1, capsule, By Mouth, Daily, # 30 capsule, Refills 0, Tot. Refills 0, Maintenance, 02/16/2013:50:00 EDT, Route to Pharmacy Electronically, [facility], 187, cm, 02/17/20 11:58:00 [...] right thumb by Fred Turk M.D. at [facility]. 3On 04/12/2015 underwent repining trapeziometacarpal joint reconstruction, right thumb status post revision trapeziometacarpal joint arthroplasty, right thumb, with loss of pin fixation by Fred Turk M.D. at [facility]. 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 at [facility]. 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
--- OUTSIDE RECORDS SUMMARY | 2023-11-09 00:39 | XMS_ITS | Continuity of Care Document ---
Author Organization [facility] ter Address [address] [place] [address]- Care Team Providers Care Drawing Instructor Name Role Phone Po Thania FALK Primary Care Physician Encounter [facility] [place] Date(s): 02/13/20 - 02/17/[address] [address]- [facility] Encounter Diagnosis Altered mental state(Final) - 02/12/20 Discharge Disposition: A-D/C Home Attending [...] have partial fills on request [facility] [id number] #[id number], # 20 tablet, 0 Refills, Maintenance, 02/17/20 13:59:00 EDT, Tablet, [facility], Partial fill upon patient request, 1... Start Date: 02/17/20 Status: Ordered alfuzosin 10 mg oral tablet, [...] Maintenance, 02/17/20 13:49:00 EDT, Tablet, [facility], 187, cm, 02/17/20 11:58:00 EDT, [...] have partial fills on request [facility] [id number] #[id number], # 25 tablet, 0 Refills, Maintenance, 02/17/20 14:00:00 EDT, Tablet, [facility], 187, cm, 02/17/20 11:... Start Date: 02/17/20 Status: Ordered Colace Capsule 100 mg, 1, capsule, By Mouth, 2 times a day, Refills 0, Maintenance, 11/16/19 9:33:00 EDT Start Date: 11/16/19 Status: Ordered divalproex sodium 250 mg oral enteric coated tablet = 250 mg, By Mouth, 2 times a day, # 60 tablet, 2 Refills, Maintenance, 02/17/20 13:50:00 EDT, Tablet, [facility], 187, cm, 02/17/20 11:58:00 EDT, Height, 102, kg, 02/12/20 12:29:00 EDT, Dry Weight Start Date: 02/17/20 Status: Ordered ergocalciferol 39214 iu oral capsule See Instructions, Start from 02/24/2020- 1 capsule By Mouth Every 7 days x 7 weeks, then 1 capsule by mouth once a month, # 10 capsule, Refills 0, Tot. Refills 0, Maintenance, 02/24/20 9:00:00 EDT, Instructions Replace Required Details, Route to Pharm... Start Date: 02/24/20 Status: Ordered omeprazole 40 mg oral enteric [...] EDT, Route to Pharmacy Electronically, [facility], 187, cm, 02/17/20 11:58:00 EDT, Height, 102, kg, 02/12/20 12:29:00 EDT... Start Date: 02/17/20 Status: Ordered venlafaxine 150 mg oral capsule, extended release 150 mg, 1, capsule, By Mouth, Daily, # 30 capsule, Refills 0, Tot. Refills 0, Maintenance, 02/16/2013:50:00 EDT, Route to Pharmacy Electronically, [facility], 187, cm, 02/17/20 11:58:00 EDT, [...] thumb by Fred Turk M.D. at [facility]. 3On 04/12/2015 underwent repining trapeziometacarpal joint reconstruction, right thumb status post revision trapeziometacarpal joint arthroplasty, right thumb, with loss of pin fixation by Fred Turk M.D. at [facility]. 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 at [facility]. 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 8Updated Oswestry Disability Index: 50% ( severe disability ) on 07/29/17; updated [place] Pain Disability Scale score: 52 on 07/29/17. 9Updated Oswestry Disability Index: 36% moderate disability and [place] Back Pain Disability Scale:24 on 08/25/2015. 10Initial [place] Pain Disability Scale: 27 on 03/12/2012; initial Oswestry Disability Index: 54%( severe disability ) on 03/12/2012. 11multiple surgeries--first in 1998 12ACE score 6 on 07/29/17 Results Radiology Reports * Exam Date Time Procedure Performing Provider Status 02/14/20 8:59 AM Chest Portable Kali , Jeaneth; Auth ( Verified) Notes: (Chest Portable) Reason For Exam: for mri screening;Other: RESULT: Chest Portable Chest Portable 02/14/2020 Reason: Other:; [...] GE junction. IMPRESSION: No acute abnormality. WSN: [id number] Ordering Physician: Jed Avilez Dictated By: Bianca Romero MD, I Dictated Date/Time: 02/14/20 12:44 p Reviewed By: Bianca Romero MD, I Signed By: Bianca Romero MD, I Signed Date/Time: 02/14/20 12:44 pm Transcribed By: WONG Transcribed Date/Time: 02/14/20 12:42 pm Vital Signs Most recent to oldest [Reference Range]: 1 2 3 Height 187 cm (02/17/20 11:58 AM) 187 cm (02/17/20 7:08 AM) 187 cm (02/17/20 3:28 AM) Weight 102 kg (02/12/20 7:06 AM) 102.7 kg (02/12/20 6:49 AM) Oxygen Saturation [94-100 %] 98 % (02/17/20 11:58 AM) 100 % (02/17/20 7:08 AM) 99 % (02/17/20 3:28 AM) Pulse Rate [55-90 bpm] 109 bpm *H* (02/17/20 11:58 AM) 71 bpm (02/17/20 7:08 AM) 70 bpm (02/17/20 3:28 AM) Body Mass Index [18.5-24.99] 29.17 *H* (02/12/20 7:06 AM) Blood Pressure [90-138/55-84 mm Hg] 135/96mm Hg (02/17/20 11:58 AM) 118/65mm Hg (02/17/20 7:42 AM) 118/65mm Hg (02/17/20 7:08 AM) Respiratory Rate [16-30 br/min] 18 br/min (02/17/20 11:58 AM) 16 br/min (02/17/20 7:08 AM) 18 br/min (02/17/20 3:28 AM) Temperature [96.8-100.4 DegF] 97.6 DegF (02/17/20 11:58 AM) 97.5 DegF (02/17/20 7:08 AM) 97.4 DegF (02/17/20 3:28 AM) Mode of Delivery (Oxygen) Room air (02/17/20 11:58 AM) Room air (02/17/20 7:08 AM) Room air (02/17/20 3:28 AM) Blood pressure sites Arm, left (02/17/20 11:58 AM) Arm, left (02/17/20 7:08 AM) Arm, left (02/17/20 3:28 AM) Temperature Route Oral (02/17/20 11:58 AM) Oral (02/17/20 7:08 AM) Oral (02/17/20 3:28 AM) Dry Weight 102 kg (02/12/20 7:06 AM) Weight Obtained Via Bed scale (02/12/20 6:49 AM) Social History Social History Type Response Smoking Status Former smoker; Other : quit 35 years ago; entered on: 11/11/17 Sex Male
--- OUTSIDE RECORDS SUMMARY | 2023-11-09 00:39 | XMS_ITS | Continuity of Care Document ---
Author Organization [facility] Address [address] [place] [address]- Care Team Providers Care Electrical Prospecting Observer Name Role Phone Po Thania FALK Primary Care Physician [phone] Encounter [facility] Date(s): 07/14/21 - 08/13/21 [facility] [address] [place] [address]- Allergies, Adverse Reactions, Alerts Substance Reaction Severity [...] On: 07/28/2020 Pharmacy I: [facility] DX: M54.4 mechanical [...] thumb by Fred Turk M.D. at [facility]. 3On 04/12/2015 underwent repining trapeziometacarpal joint reconstruction, right thumb status post revision trapeziometacarpal joint arthroplasty, right thumb, with loss of pin fixation by Fred Turk M.D. at [facility]. 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 at [facility]. 5On/about 04/09/17 underwent left hip replacement for left hip fracture by Jos Locke at 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
--- OUTSIDE RECORDS SUMMARY | 2023-11-09 00:39 | XMS_ITS | Continuity of Care Document ---
Author Organization [facility] Address [address] [place] [address]- Care Team Providers Care Hearing Dog Trainer Name Role Phone Po Thania FALK Primary Care Physician Encounter [facility] [place] Date(s): 09/09/20 - 10/09/20 [facility] [address] [place] [id number] Allergies, Adverse Reactions, Alerts Substance Reaction [...] can have partial fills on request [facility] [id number] #[id number], # 25 tablet, 0 Refills, Maintenance, 02/17/20 14:00:00 EDT, Tablet, [facility] 187, cm, 02/17/20 11:... Start Date: 02/17/20 Status: Ordered Colace Capsule 100 mg, 1, capsule, By Mouth, 2 times a day, Refills 0, Maintenance, 11/16/19 9:33:00 EDT Start Date: 11/16/19 Status: Ordered Controlled Substance Agreement Controlled Substance Agreement, See Instructions, # 1 each, Refills 0, Tot. Refills 0, Maintenance,Updated On: 07/28/2020 Pharmacy I: [facility] DX: M54.4 mechanical low back pain, M53.3 SI joint pain, 08/02/20 9:14:00 EDT, Supply Start Date: 08/02/20 Status: Ordered cyanocobalamin 1000 mcg/ml injectable solution INJECT 1000 MCG. SUBCUTANEOUSLY EVERY 4 WEEKS. Start Date: 05/12/20 Status: Ordered divalproex sodium 250 mg oral enteric coated tablet = 250 mg, By Mouth, 2 times a day, # 60 tablet, 2 Refills, Maintenance, 02/17/20 13:50:00 EDT, Tablet, [facility] 187, cm, 02/17/20 11:58:00 EDT, [...] 14:34:00 EST Start Date: 03/03/20 Status: Ordered [place] 325 mg-5 mg oral tablet 1-2 tablet, [...] EDT, Route to Pharmacy Electronically, [facility], 187, cm, 02/17/20 11:58:00 EDT, Height, 102, kg, 02/12/20 12:29:00 EDT... Start Date: 02/17/20 Status: Ordered venlafaxine 150 mg oral capsule, extended release 150 mg, 1, capsule, By Mouth, Daily, # 30 capsule, Refills 0, Tot. Refills 0, Maintenance, 02/16/2013:50:00 EDT, Route to Pharmacy Electronically, [facility], 187, cm, 02/17/20 11:58:00 EDT, [...] right thumb by Fred Turk M.D. at [facility]. 3On 04/12/2015 underwent repining trapeziometacarpal joint reconstruction, right thumb status post revision trapeziometacarpal joint arthroplasty, right thumb, with loss of pin fixation by Fred Turk M.D. at [facility]. 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 at [facility]. 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
--- OUTSIDE RECORDS SUMMARY | 2023-11-09 00:39 | XMS_ITS | Continuity of Care Document ---
Author Organization [facility] Address [address] [place] [address]- Care Team Providers Care Eyelet Riveter Name Role Phone Po Thania FALK Primary Care Physician [phone] [place] [facility] 07/28/20 - 10/06/20 [facility] [address] [place] [id number] Attending Physician: Trung Pollard Jr, MD Admitting [...] [facility] [id number] #[id number], # 25 tablet, 0 Refills, Maintenance, 02/17/20 14:00:00 EDT, Tablet, [facility], 187, cm, 02/17/20 11:... Start Date: 02/17/20 Status: Ordered Colace Capsule 100 mg, 1, capsule, By Mouth, 2 times a day, Refills 0, Maintenance, 11/16/19 9:33:00 EDT Start Date: 11/16/19 Status: Ordered Controlled Substance Agreement Controlled Substance Agreement, See Instructions, # 1 each, Refills 0, Tot. Refills 0, Maintenance,Updated On: 07/28/2020 Pharmacy I: [facility] DX: M54.4 mechanical low back pain, [...] 2 Refills, Maintenance, 02/17/20 13:50:00 EDT, Tablet, [facility], 187, cm, 02/17/20 11:58:00 EDT, [...] 14:34:00 EST Start Date: 03/03/20 Status: Ordered [place] 325 mg-5 mg oral tablet 1-2 tablet, [...] EDT, Route to Pharmacy Electronically, [facility], 187, cm, 02/17/20 11:58:00 EDT, Height, 102, kg, 02/12/20 12:29:00 EDT... Start Date: 02/17/20 Status: Ordered venlafaxine 150 mg oral capsule, extended release 150 mg, 1, capsule, By Mouth, Daily, # 30 capsule, Refills 0, Tot. Refills 0, Maintenance, 02/16/2013:50:00 EDT, Route to Pharmacy Electronically, [facility], 187, cm, 02/17/20 11:58:00 EDT, [...] right thumb by Fred Turk M.D. at [facility]. 3On 04/12/2015 underwent repining trapeziometacarpal joint reconstruction, right thumb status post revision trapeziometacarpal joint arthroplasty, right thumb, with loss of pin fixation by Fred Turk M.D. at [facility]. 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 at [facility]. 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 7Updated Oswestry Disability Index: 47% (21/45; [...]
--- OUTSIDE RECORDS SUMMARY | 2023-11-09 00:39 | XMS_ITS | Continuity of Care Document ---
Author Organization [facility] Address [address] [place] [address]- Care Team Providers Care Ict Sales Representative Name Role Phone Po Thania FALK Primary Care Physician [phone] Encounter [facility] Date(s): 06/22/20 - 08/11/20 [facility] [address] [place] [id number] Attending Physician: Dina Lara MD Admitting Physician: [...] cm, 02/17/20 11:58:00 EDT, Height, 102, kg, 10/16/20 12:29:00 EDT, Dry Weight Start Date: 02/17/20 [...] Pt can have partial fills on request [facility] [id number] #[id number], # 25 tablet, 0 Refills, Maintenance, 02/17/20 14:00:00 EDT, Tablet, [facility], 187, cm, 02/17/20 11:... Start Date: 02/17/20 Status: Ordered Colace Capsule 100 mg, 1, capsule, By Mouth, 2 times a day, Refills 0, Maintenance, 11/16/19 9:33:00 EDT Start Date: 11/16/19 Status: Ordered Controlled Substance Agreement Controlled Substance Agreement, See Instructions, # 1 each, Refills 0, Tot. Refills 0, Maintenance,Updated On: 07/28/2020 Pharmacy I: [facility] DX: M54.4 mechanical low [...] 2 Refills, Maintenance, 02/17/20 13:50:00 EDT, Tablet, [facility], 187, cm, 02/17/20 11:58:00 EDT, Height, 102, kg, 02/12/20 12:29:00 EDT, Dry Weight Start Date: 02/17/20 Status: Ordered ergocalciferol 97024 iu oral capsule See Instructions, Start from [...] 14:34:00 EST Start Date: 03/03/20 Status: Ordered [place] 325 mg-5 mg oral tablet 1 tablet, By Mouth, Every 4 hours, PRN pain, MAX 6 tabs/day, # 168 tablet, 0 Refills, Maintenance, 07/19/20 15:38:00 EDT, Tablet, [facility], Partial fill upon patient request, 1 tablet By Mouth Every 4 hours,PRN:pain,Instr:MAX 6 tabs/day... Start Date: 07/19/20 Status: Ordered omeprazole 40 mg oral enteric [...] 02/17/20 13:50:00 EDT, Route to Pharmacy Electronically, [facility], 187, cm, 02/17/20 11:58:00 EDT, Height, 102, kg, 02/12/20 12:29:00 EDT... Start Date: 02/17/20 Status: Ordered venlafaxine 150 mg oral capsule, extended release 150 mg, 1, capsule, By Mouth, Daily, # 30 capsule, Refills 0, Tot. Refills 0, Maintenance, 02/16/2013:50:00 EDT, Route to Pharmacy Electronically, [facility], 187, cm, 02/17/20 11:58:00 EDT, [...] right thumb by Fred Turk M.D. at [facility]. 3On 04/12/2015 underwent repining trapeziometacarpal joint reconstruction, right thumb status post revision trapeziometacarpal joint arthroplasty, right thumb, with loss of pin fixation by Fred Turk M.D. at [facility]. 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 at [facility]. 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
--- OUTSIDE RECORDS SUMMARY | 2023-11-09 00:39 | XMS_ITS | Continuity of Care Document ---
Author Organization [facility] Address [address] [place] [address]- Care Team Providers Care Provider Relations Representative Name Role Phone Po Thania FALK Primary Care Physician [phone] Encounter [facility] [place] Date(s): 11/06/19 - 12/06/[address] [address] [facility] Attending Physician: Eva Nugent Admitting Physician: AdmEva craven Referring Physician: AdmtrEva Allergies, Adverse Reactions, Alerts Substance Reaction Severity [...] upon patient request Start Date: 12/03/19 Status: Ordered amLODIPine 10 mg oral tablet [...] EC Tablet Start Date: 11/06/19 Status: Ordered Heparin Inj 1 mL = [...] right thumb by Fred Turk M.D. at [facility]. 3On 04/12/2015 underwent repining trapeziometacarpal joint reconstruction, right thumb status post revision trapeziometacarpal joint arthroplasty, right thumb, with loss of pin fixation by Fred Turk M.D. at [facility]. 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 at [facility]. 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 8Updated Oswestry Disability Index: 50% ( severe disability ) on 07/29/17; updated [place] Pain Disability Scale score: 52 on 07/29/17. 9Updated Oswestry Disability Index: 36% moderate disability and [place] Back Pain Disability Scale:24 on 08/25/2015. 10Initial [place] Back Pain Disability Scale: 27 on 03/12/2012; initial Oswestry Disability Index: 54%( severe disability ) on 03/12/2012. 11multiple surgeries--first in 1998 12ACE score 6 on 07/29/17 Social History Social History Type Response Smoking Status Former smoker; Other : quit 35 years ago; entered on: 11/11/17 Sex
--- OUTSIDE RECORDS SUMMARY | 2023-11-09 00:39 | XMS_ITS | Continuity of Care Document ---
Author Organization [facility] Address [address] [place] [address]- Care Team Providers Care Aerobics Teacher Name Role Phone Po Thania FALK Primary Care Physician [place] [facility] [place] 06/23/21 [facility] [address] [place] [id number]- Allergies, Adverse Reactions, Alerts Substance Reaction Severity [...] On: 07/28/2020 Pharmacy [facility] DX: M54.4 mechanical low back pain, M53.3 [...] right thumb by Fred Turk M.D. at [facility]. 3On 04/12/2015 underwent repining trapeziometacarpal joint reconstruction, right thumb status post revision trapeziometacarpal joint arthroplasty, right thumb, with loss of pin fixation by Fred Turk M.D. at [facility]. 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 at [facility]. 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
--- OUTSIDE RECORDS SUMMARY | 2023-11-09 00:39 | XMS_ITS | Continuity of Care Document ---
Author Organization [facility] Address [address] [place] [address]- Care Team Providers Care Stna Name Role Phone Po Thania FALK Primary Care Physician Encounter [facility] [place] Date(s): 03/13/21 - 04/12/21 [facility] [address] [place] [address]- Allergies, Adverse Reactions, Alerts Substance Reaction Severity [...] On: 07/28/2020 Pharmacy [facility]: [facility] DX: M54.4 mechanical low [...] right thumb by Fred Turk M.D. at [facility]. 3On 04/12/2015 underwent repining trapeziometacarpal joint reconstruction, right thumb status post revision trapeziometacarpal joint arthroplasty, right thumb, with loss of pin fixation by Fred Turk M.D. at [facility]. 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 at [facility]. 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
--- OUTSIDE RECORDS SUMMARY | 2023-11-09 00:39 | XMS_ITS | Continuity of Care Document ---
Author Organization [facility] Address [address] [place] [address]- Care Team Providers Care Client Development Manager Name Role Phone Po Thania FALK Primary Care Physician Encounter [facility] [place] Date(s): 01/23/21 - 02/23/21 [facility] [address] [place] [address]- Attending Physician: Marianne Cedeño MD Admitting Physician: [...] On: 07/28/2020 Pharmacy I: [facility] DX: M54.4 mechanical low back [...] by Fred Turk M.D. at [facility]. 3On 04/12/2015 underwent repining trapeziometacarpal joint reconstruction, right thumb status post revision trapeziometacarpal joint arthroplasty, right thumb, with loss of pin fixation by Fred Turk M.D. at [facility]. 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 at [facility]. 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
--- OUTSIDE RECORDS SUMMARY | 2023-11-09 00:39 | XMS_ITS | Continuity of Care Document ---
Author Organization [facility] Address [address] [place] [address]- Care Team Providers Care Marine Engineering Consultant Name Role Phone Po Thania FALK Primary Care Physician [phone] Encounter [facility] Date(s): 09/19/20 - 10/19/20 [facility] [address] [place] [id number] Allergies, Adverse Reactions, Alerts Substance [...] MAX 9 tabs/... Start Date: 10/13/20 Status: Ordered acetaminophen/butalbital/caffeine 325 mg-50 mg-40 mg [...] 4 Refills, Maintenance, 02/17/20 13:49:00 EDT, Tablet, [facility] 187, cm, 02/17/20 11:58:00 EDT, [...] Pt can have partial fills on request [facility] [id number] #[id number], # 25 tablet, 0 Refills, Maintenance, 02/17/20 14:00:00 EDT, Tablet, [facility] 187, cm, 02/17/20 11:... Start Date: 02/17/20 Status: Ordered Colace Capsule 100 mg, 1, capsule, By Mouth, 2 times a day, Refills 0, Maintenance, 11/16/19 9:33:00 EDT Start Date: 11/16/19 Status: Ordered Controlled Substance Agreement Controlled Substance Agreement, See Instructions, # 1 each, Refills 0, Tot. Refills 0, Maintenance,Updated On: 07/28/2020 Pharmacy I: [facility] [place] DX: M54.4 mechanical low back pain, M53.3 [...] 14:34:00 EST Start Date: 03/03/20 Status: Ordered [place] 325 mg-5 mg oral tablet 1-2 tablet, By Mouth, Every 4 hours, PRN pain, MAX 9 tabs/day. RX 2 of 2, # 84 tablet, 0 Refills, Maintenance, 10/13/20 11:52:00 EDT, Tablet, [facility], Partial fill upon patient request, 1-2 tablet By Mouth Every 4 hours,Instr:PRN pain,... Start Date: 10/13/20 Status: Ordered omeprazole 40 mg oral enteric [...] 02/17/20 13:50:00 EDT, Route to Pharmacy Electronically, [facility], 187, cm, 02/17/20 11:58:00 EDT, Height, 102, kg, 02/12/20 12:29:00 EDT... Start Date: 02/17/20 Status: Ordered venlafaxine 150 mg oral capsule, extended release 150 mg, 1, capsule, By Mouth, Daily, # 30 capsule, Refills 0, Tot. Refills 0, Maintenance, 02/16/2013:50:00 EDT, Route to Pharmacy Electronically, [facility], 187, cm, 02/17/20 11:58:00 EDT, [...] right thumb by Fred Turk M.D. at [facility]. 3On 04/12/2015 underwent repining trapeziometacarpal joint reconstruction, right thumb status post revision trapeziometacarpal joint arthroplasty, right thumb, with loss of pin fixation by Fred Turk M.D. at [facility]. 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 at [facility]. 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
--- OUTSIDE RECORDS SUMMARY | 2023-11-09 00:39 | XMS_ITS | Continuity of Care Document ---
Author Organization [facility] Address [address] [place] [address]- Care Team Providers Care Supervisor Train Operations Name Role Phone Po Thania FALK Primary Care Physician [phone] [place] [facility] [place] 10/20/20 [facility] [address] [place] [id number] Allergies, Adverse Reactions, Alerts Substance Reaction [...] 4 Refills, Maintenance, 02/17/20 13:49:00 EDT, Tablet, [facility] 187, cm, 02/17/20 11:58:00 EDT, [...] have partial fills on request [facility] [id number] #[id number], # 25 tablet, 0 Refills, Maintenance, 02/17/20 14:00:00 EDT, Tablet, [facility] 187, cm, 02/17/20 11:... Start Date: 02/17/20 Status: Ordered Colace Capsule 100 mg, 1, capsule, By Mouth, 2 times a day, Refills 0, Maintenance, 11/16/19 9:33:00 EDT Start Date: 11/16/19 Status: Ordered Controlled Substance Agreement Controlled Substance Agreement, See Instructions, # 1 each, Refills 0, Tot. Refills 0, Maintenance,Updated On: 07/28/2020 Pharmacy I: [facility] DX: M54.4 mechanical low back pain, M53.3 [...] 14:34:00 EST Start Date: 03/03/20 Status: Ordered Omega 325 mg-5 mg oral tablet 1-2 tablet, By Mouth, Every 4 hours, PRN pain, MAX 9 tabs/day. RX 2 of 2, # 84 tablet, 0 Refills, Maintenance, 10/13/20 11:52:00 EDT, Tablet, [facility], Partial fill upon patient request, [...] 02/17/20 13:50:00 EDT, Route to Pharmacy Electronically, [facility], 187, cm, 02/17/20 11:58:00 EDT, Height, 102, kg, 02/12/20 12:29:00 EDT... Start Date: 02/17/20 Status: Ordered venlafaxine 150 mg oral capsule, extended release 150 mg, 1, capsule, By Mouth, Daily, # 30 capsule, Refills 0, Tot. Refills 0, Maintenance, 02/16/2013:50:00 EDT, Route to Pharmacy Electronically, [facility], 187, cm, 02/17/20 11:58:00 [...] right thumb by Fred Turk M.D. at [facility]. 3On 04/12/2015 underwent repining trapeziometacarpal joint reconstruction, right thumb status post revision trapeziometacarpal joint arthroplasty, right thumb, with loss of pin fixation by Fred Turk M.D. at [facility]. 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 at [facility]. 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
--- OUTSIDE RECORDS SUMMARY | 2023-11-09 00:40 | XMS_ITS | Continuity of Care Document ---
Author Organization [facility] Address [address] [place] [address]- Care Team Providers Care Grapple Yarder Operator Name Role Phone Po Thania FALK Primary Care Physician Encounter [facility] [place] Date(s): 11/15/20 - 12/15/20 [facility] [address] [place] [address]- Allergies, Adverse Reactions, Alerts Substance Reaction Severity [...] Pt can have partial fills on request [facility] [id number] #[id number], # 25 tablet, 0 Refills, Maintenance, 02/17/20 14:00:00 EDT, Tablet, [facility], 187, cm, 02/17/20 11:... Start Date: 02/17/20 Status: Ordered Belbuca 150 mcg buccal film See Instructions, [address] film on inside of cheek and avoid food or drink untilcompletely dissolved, # 28 film, 0 Refills, Maintenance, 12/07/20 12:17:00 EDT, [facility], Partial fill upon patient request if the pres... Start Date: 12/07/20 Status: Ordered Jose Maria-Emu Super Strength topical [...] Refills 0, Maintenance,Updated On: 07/28/2020 Pharmacy I: [facility] DX: M54.4 mechanical low back pain, M53.3 [...] 02/17/20 13:50:00 EDT, Route to Pharmacy Electronically, [facility], 187, cm, 02/17/20 11:58:00 EDT, Height, 102, kg, 02/12/20 12:29:00 EDT... Start Date: 02/17/20 Status: Ordered venlafaxine 150 mg oral capsule, extended release 150 mg, 1, capsule, By Mouth, Daily, # 30 capsule, Refills 0, Tot. Refills 0, Maintenance, 02/16/2013:50:00 EDT, Route to Pharmacy Electronically, [facility], 187, cm, 02/17/20 11:58:00 EDT, [...] Fred Turk M.D. at [facility]. 3On 04/12/2015 underwent repining trapeziometacarpal joint reconstruction, right thumb status post revision trapeziometacarpal joint arthroplasty, right thumb, with loss of pin fixation by Fred Turk M.D. at [facility]. 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 at [facility]. 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
--- OUTSIDE RECORDS SUMMARY | 2023-11-09 00:40 | XMS_ITS | Continuity of Care Document ---
Author Organization [facility] ter Address [address] [place] [address]- Care Team Providers Care Family Member Caretaker Name Role Phone Po Thania FALK Primary Care Physician [place] [facility] [place] 12/10/19 - 12/14/[address] [address]- [facility] Encounter Diagnosis Dislocated hip(Final) - 12/09/19 Discharge Disposition: A-Transfer VNA/Home Health [...] 4 hours as needed for pain, # 60 tablet, 0 Refills, Acute 12/21/19 8:53:00 EDT, 12/14/19 8:53:00 EDT, Tablet, Partial fill upon patient request Start Date: 12/14/19 Stop Date: 12/21/19 Status: Ordered amLODIPine 10 mg oral tablet [...] EC Tablet Start Date: 11/06/19 Status: Ordered gabapentin 100 mg oral capsule 100 mg, 1, capsule, By Mouth, 2 times a day, Refills 0, Maintenance, 12/14/19 9:08:00 EDT Start Date: 12/14/19 Status: Ordered Heparin Inj 1 mL = [...] trapeziometacarpal joint arthroplasty right thumb by Fred uTrk M.D. at [facility]. 3On 04/12/2015 underwent repining trapeziometacarpal joint reconstruction, right thumb status post revision trapeziometacarpal joint arthroplasty, right thumb, with loss of pin fixation by Fred Turk M.D. at [facility]. 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 at [facility]. 5On/about 04/09/17 underwent left hip replacement for left hip fracture by Jos Locke at [facility] 6On 11/13/19 underwent revision hemiarthroplasty with conversion to total hip arthroplasty for left hip femoral component aseptic loosening by Elijah Stover MD at [facility] 7Updated Oswestry Disability Index: 40% moderate disability and [place] Back Pain Disability Scale:27 on 10/08/18. 8Updated Oswestry Disability Index: 50% ( severe disability ) on 07/29/17; updated [place] Back Pain Disability Scale score: 52 on 07/29/17. 9Updated Oswestry Disability Index: 36% moderate disability and [place] Back Pain Disability Scale:24 on 08/25/2015. 10Initial [place] Back Pain Disability Scale: 27 on 03/12/2012; initial Oswestry Disability Index: 54%( severe disability ) on 03/12/2012. 11multiple surgeries--first in 1998 12ACE score 6 on 07/29/17 Results Orders for Microbiology Reports Name Date Anaerobic Culture (ANAEROBIC CULTURE) Sterile Body Fluid Culture W/ Gram Smear (STERILE FLUID CULT.) 12/11/19 Microbiology Reports TEST:Anaerobic Culture STATUS:Unauthenticated BODY SITE: SOURCE:FLUID COLLECTED DATE/TIME:12/11/19 11:50 AM Anaerobic Culture SPECIMEN DESCRIPTION : FLUID LEFT HIP SPECIAL REQUESTS : NONE CULTURE : NO ANAEROBES ISOLATED SO FAR. REPORT STATUS : PRELIMINARY REPORT TEST:Sterile Fluid Culture STATUS:Auth (Verified) BODY SITE: SOURCE:FLUID COLLECTED DATE/TIME:12/11/19 11:50 AM Sterile Fluid Culture SPECIMEN DESCRIPTION : FLUID LEFT HIP FLUID SPECIAL REQUESTS : NONE GRAM STAIN : 4+ RBC'S 2+ POLYMORPHONUCLEAR LEUKOCYTES NO ORGANISMS SEEN CULTURE : NO GROWTH 2 DAYS REPORT STATUS : FINAL 12/13/2019 Radiology Reports * Exam Date Time Procedure Performing Provider Status 12/11/19 11:55 AM XR Aspiration Hip Left Casandra Oconnell er; Auth (Verified) Notes: (XR Aspiration Hip Left) Reason For Exam: Other:;? [...] fluoroscope, an appropriate site for skin puncture wasdetermined. The patient was draped and prepared in a sterile fashion. The skin, subcutaneous tissues, and musculature were generously infiltrated with local 1% Lidocaine. A 20 gauge spinal needle wasintroduced into the left hip joint using fluoroscopic guidance. Trace amount of serosanguineous fluid was aspirated and subsequently, a small amount of Isovue-300 was injected to confirm intra-articular positioning. Spot radiograph obtained for documentation (image 2). Spinal needle was then reposit ioned for a second attempt at further aspiration closer to the neck of the arthroplasty and again only a trace amount of serosanguineous fluid was aspirated. An additional small amount of Isovue-300 was injected to again confirm intra-articular positioning. Spot radiograph obtained for documentation (3). The spinal needle was removed and the entrance site was dressed with a bandage. The patient tolerated the procedure well without any immediate complications. Impression: Successful left hip aspiration yielding trace serosanguineous fluid. The aspirate was sent to the laboratory for the requested analysis. By undersigning and finalizing the report, the attending radiologist confirms he/she has personallyreviewed and interpreted the images and agrees with the description of the findings. I have personally reviewed the images and I agree with this report. WSN: [id number] Ordering Physician: Vidhya Florence Dictated By: [place] Dictated Date/Time: 12/11/19 12:34 p Reviewed By: Arvind Williamson MD Signed By: Arvind Williamson MD Signed Date/Time: 12/11/19 12:39 pm Transcribed By: WONG Transcribed Date/Time: 12/11/19 11:51 am * Exam Date Time Procedure Performing Provider Status 12/10/19 12:34 PM Chest 2 Views Frontal and Lat Emerita Romero; Auth (Verified) Notes: (Chest 2 Views Frontal and Lat) Reason For Exam: h/o Covid;Shortness of Breath RESULT: Chest 2 Views Frontal and Lat Chest 2 Views Frontal and Lat Reason: Shortness of Breath; h o positive COVID test 11/15 and 11/26/2019; Clinical Question(s): Atelectasis COMPARISON: 04/05/2017 FINDINGS: LINES AND TUBES: None. LUNGS AND PLEURA: Low lung volumes with bilateral atelectasis. Scattered increased interstitial markings are noted inthe lower portion of each lung but no definite airspace process is present. Stable right apical pleural thickening. No pleural effusion. No pneumothorax. HEART, MEDIASTINUM AND NNANETTE: Heart is normal in size. Normal mediastinal and hilar contour. BONES AND SOFT TISSUES: No acute abnormality. IMPRESSION: Low lung volumes with bibasilar atelectasis. Stable right apical pleural thickening. WSN: [id number] Ordering Physician: Vidhya Florence Dictated By: Evens Reyna MD Dictated Date/Time: 12/10/19 12:41 p Reviewed By: Evens Reyna MD Signed By: Evens Reyna MD Signed Date/Time: 12/10/19 12:41 pm Transcribed By: WONG Transcribed Date/Time: 12/10/19 12:35 pm * Exam Date Time Procedure Performing Provider Status 12/09/19 10:40 PM XR Femur 2 Views Left Tamiko Cardozo (Verified) Notes: (XR Femur 2 Views Left) Reason For Exam: Pain RESULT: Femur 2 Views Left XR Hip w/Pelvis [...] fracture bony pelvis or left femur. WSN: [id number] Ordering Physician: Cuba Mckeon Dictated By: Sancho Webster MD Dictated Date/Time: 12/09/19 10:52 p Reviewed By: Sancho Webster MD Signed By: Sancho Webster MD Signed Date/Time: 12/09/19 10:52 pm Transcribed By: WONG Transcribed Date/Time: 12/09/19 10:49 pm * Exam Date Time Procedure Performing Provider Status 12/09/19 10:40 PM XR Hip w/Pelvis 2-3 View Left Tamiko Cardozo (Verified) Notes: (XR Hip w/Pelvis 2-3 View Left) Reason For Exam: Other: RESULT: XR Hip w/Pelvis 2-3 View Left [...] fracture bony pelvis or left femur. WSN: [id number] Ordering Physician: Cuba Mckeon Dictated By: Sancho Webster MD Dictated Date/Time: 12/09/19 10:52 p Reviewed By: Sancho Wesbter MD Signed By: Sancho Webster MD Signed Date/Time: 12/09/19 10:52 pm Transcribed By: WONG Transcribed Date/Time: 12/09/19 10:49 pm * Exam Date Time Procedure Performing Provider Status 12/09/19 7:30 PM Pelvis 1 or 2 Views Angel Carrera ut (Verified) Notes: (Pelvis 1 or 2 Views) Reason For Exam: Pain RESULT: Pelvis 1 or 2 Views Pelvis 1 or 2 Views Hx of Present Illness: Pt just discharge home today s p total left hip replacement. Simpson a loud pop from left hip and then had severe pain. [...] femoral head out of the cup. WSN: [id number] Ordering Physician: Olivia Watson Dictated By: Denis Farias MD Dictated Date/Time: 12/09/19 7:48 pm Reviewed By: Denis Farias MD Signed By: Denis Farias MD Signed Date/Time: 12/09/19 7:48 pm Transcribed By: WONG Transcribed Date/Time: 12/09/19 7:42 pm Vital Signs Most recent to oldest [Reference Range]: 1 2 3 Height 182 cm (12/14/19 8:27 AM) 182 cm (12/13/19 7:00 PM) 182 cm (12/13/19 7:52 AM) Weight 116 kg (12/10/19 9:49 AM) Oxygen Saturation [94-100 %] 98 % (12/14/19 8:27 AM) 93 % *L* (12/13/19 7:00 PM) 95 % (12/13/19 7:52 AM) Pulse Rate [55-90 bpm] 76 bpm (12/14/19 8:27 AM) 88 bpm (12/13/19 7:00 PM) 80 bpm (12/13/19 7:52 AM) Body Mass Index [18.5-24.99] 35.02 *>HHI* (12/10/19 9:49 AM) Blood Pressure [90-138/55-84 mm Hg] 111/60mm Hg (12/14/19 8:27 AM) 120/74mm Hg (12/14/19 8:07 AM) 112/74mm Hg (12/13/19 7:00 PM) Respiratory Rate [16-30 br/min] 18 br/min (12/14/19 2:44 PM) 20 br/min (12/14/19 1:53 PM) 18 br/min (12/14/19 10:04 AM) Temperature [96.8-100.4 DegF] 98.2 DegF (12/14/19 8:27 AM) 98.2 DegF (12/13/19 7:00 PM) 97.1 DegF (12/13/19 7:52 AM) Liters per Minute 2 L/min (12/10/19 8:14 AM) 3 L/min (12/09/19 9:31 PM) 2 L/min (12/09/19 6:11 PM) Mode of Delivery (Oxygen) Room air (12/14/19 8:27 AM) Room air (12/13/19 7:00 PM) Room air (12/13/19 7:52 AM) Blood pressure sites Arm, left (12/14/19 8:27 AM) Arm, left (12/13/19 7:00 PM) Arm, left (12/13/19 7:52 AM) Temperature Route Oral (12/14/19 8:27 AM) Oral (12/13/19 7:00 PM) Oral (12/13/19 7:52 AM) Dry Weight 116 kg (12/10/19 9:49 AM) Social History Social History Type Response Smoking Status Former smoker; Other : quit 35 years ago; entered on: 11/11/17 Sex Male
--- OUTSIDE RECORDS SUMMARY | 2023-11-09 00:40 | XMS_ITS | Continuity of Care Document ---
Author Organization [facility] Address [address] [place] [address]- Care Team Providers Care Software Development Leader Name Role Phone Po Thania FALK Primary Care Physician [place] [facility] [place] 01/04/21 [facility] [address] [place] [phone]- Allergies, Adverse Reactions, Alerts Substance Reaction Severity [...] Pt can have partial fills on request [facility] [id number] #[id number], # 25 tablet, 0 Refills, Maintenance, 02/17/20 [...] Refills, Maintenance, 12/19/20 15:20:00 EDT, [facility], 187, cm, 11/18/20 8:45:00 EDT, Height, 102... Start Date: 12/19/20 Status: Ordered Jose Maria-Emu Super Strength topical [...] Refills 0, Maintenance,Updated On: 07/28/2020 Pharmacy I: [facility] DX: M54.4 mechanical low back [...] right thumb by Fred Turk M.D. at [facility]. 3On 04/12/2015 underwent repining trapeziometacarpal joint reconstruction, right thumb status post revision trapeziometacarpal joint arthroplasty, right thumb, with loss of pin fixation by Fred Turk M.D. at [facility]. 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 at [facility]. 5On/04/09/17 underwent left hip replacement for left hip fracture by Jos Locke at [facility] 6On 11/13/19 underwent revision hemiarthroplasty with conversion to total hip arthroplasty for left hip femoral component aseptic loosening by Elijah Stover MD at [facility] 7Updated Oswestry Disability Index: 47% (21/45; severe [...]
--- OUTSIDE RECORDS SUMMARY | 2023-11-09 00:40 | XMS_ITS | Continuity of Care Document ---
Author Organization [facility] Address [address] [place] [address]- Care Team Providers Care Parts Counter Specialist Name Role Phone Po Thania FALK Primary Care Physician [place] [facility] [place] - 07/21/20 [facility] [address] [place] [id number] Attending Physician: Huber Arce DO Admitting [...] Pt can have partial fills on request [facility] [id number] #[id number], # 25 tablet, 0 Refills, Maintenance, 02/17/20 14:00:00 EDT, Tablet, [facility], 187, cm, 02/17/20 11:... Start [...] Weight Start Date: 02/17/20 Status: Ordered ergocalciferol 82822 iu oral capsule See Instructions, Start from [...] 02/12/20 12:29:... Start Date: 05/25/20 Status: Ordered fexofenadine 180 mg oral tablet [...] 14:34:00 EST Start Date: 03/03/20 Status: Ordered [place] 325 mg-5 mg oral tablet 1 tablet, [...] 02/17/20 13:50:00 EDT, Route to Pharmacy Electronically, [facility], 187, cm, 02/17/20 11:58:00 EDT, Height, 102, kg, 02/12/20 12:29:00 EDT... Start Date: 02/17/20 Status: Ordered venlafaxine 150 mg oral capsule, extended release 150 mg, 1, capsule, By Mouth, Daily, # 30 capsule, Refills 0, Tot. Refills 0, Maintenance, 02/16/2013:50:00 EDT, Route to Pharmacy Electronically, [facility], 187, cm, 02/17/20 11:58:00 EDT, [...] right thumb by Fred Turk M.D. at [facility]. 3On 04/12/2015 underwent repining trapeziometacarpal joint reconstruction, right thumb status post revision trapeziometacarpal joint arthroplasty, right thumb, with loss of pin fixation by Fred Turk M.D. at [facility]. 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 at [facility]. 5On04/09/17 underwent left hip replacement for left hip fracture by Jos Locke at [facility] 6On 11/13/19 underwent revision hemiarthroplasty with conversion to total hip arthroplasty for left hip femoral component aseptic loosening by Elijah Stover MD at [facility] 7Updated Oswestry Disability Index: 47% (21/45; [...]
--- OUTSIDE RECORDS SUMMARY | 2023-11-09 00:40 | XMS_ITS | Continuity of Care Document ---
Author Organization [facility] Address [address] [place] [address]- Care Team Providers Care Top Inventory Control Executive Name Role Phone Po Thania FALK Primary Care Physician Encounter [facility] [place] [facility] [id number] Date(s): 06/08/19 - 09/04/19 [facility] [address] [place] [address]- [facility] Attending Physician: Stephanie Alanis MD Admitting Physician: Stephanie Alanis MD Allergies, Adverse Reactions, Alerts Substance Reaction Severity Status codeine GI upset Active nonsteroidal anti-inflammatory agents 1 Active Topamax bilateral hand shaking Activ e aspirin Active hydrochlorothiazide Active trazodone blood pressure Active Soma mood changes Active 1dumping syndrome Medications acetaminophen/butalbital/caffeine 325 mg-50 mg-40 mg oral [...] 9:14:30 EDT Start Date: 10/27/18 Status: Ordered Clear Eyes 1 drops, Eyes, Both, 2 times a day, 0 Refills, Maintenance, 01/20/19 8:18:14 EDT Start Date: 01/20/19 Status: Ordered Controlled Substance Agreement Controlled Substance Agreement, See Instructions, # 1 units, Refills 0, Tot. 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 Start Date: 10/08/18 Status: Ordered cyanocobalamin 1000 mcg/ml injectable solution INJECT 1 ML. SUBCUTANEOUSLY EVERY MONTH.. Start Date: 03/03/19 Status: Ordered Depakote 250 mg oral enteric coated tablet 1 tablet, By Mouth, Daily, # 270 tablet, 0 Refills, Maintenance, 01/04/14 8:16:25, EC Tablet Start Date: 01/04/14 Status: Ordered diclofenac 1% topical gel APPLY DIRECTED FOUR TIMES A DAY Start Date: 03/03/19 Status: Ordered fexofenadine 180 mg oral tablet [...] 9:34:33 EDT Start Date: 07/29/17 Status: Ordered Melatonin 5 mg oral tablet 2 tablet = 10 mg, By Mouth, Daily at bedtime, 0 Refills, Maintenance, 01/20/19 8:15:25 EDT Start Date: 01/20/19 Status: Ordered Metamucil 3.4 gm/5.2 gm oral powder for reconstitution = 3.4 Gm, By Mouth, Daily, 0 Refills, Maintenance, 10/08/18 10:17:39 EDT Start Date: 10/08/18 Status: Ordered mupirocin 2% topical ointment 1 application, Topically, 3 times a day, # 15 Gm, 0 Refills, Maintenance, 12/15/18 13:51:40 EDT, Ointment Start Date: 12/15/18 Status: Ordered Narcan 4 mg/0.1 mL nasal spray See Instructions, nasally once, may repeat every 2 to 3 minutes until patient responds, # 2 each, 0Refills, Soft Stop, 01/20/19 8:54:13 EDT Start Date: 01/20/19 Status: Ordered [place] 325 mg-5 mg oral tablet 0.5 -1 tablet, By Mouth, Every 4 hours, PRN pain, max 5 tabs daily, # 140 tablet, 0 Refills, Maintenance, 08/27/19 15:17:00 EDT, Tablet, [facility], Partial fill upon patient request, 0.5 -1 tablet By Mouth Every 4 hours,PRN:pain,Instr:ma... Start Date: 08/27/19 Status: Ordered omeprazole 40 mg oral enteric coated capsule 1 capsule = 40 mg, By Mouth, Daily, # 30 capsule, 0 Refills, Maintenance, 08/25/15 8:54:33, EC Capsule Start Date: 08/25/15 Status: Ordered promethazine 25 mg oral tablet 2 tablet = 50 mg, By Mouth, Daily, PRN as needed for nausea/vomiting, 0 Refills, Maintenance, 10/21/17 13:57:18 EDT Start Date: 10/21/17 Status: Ordered triamcinolone 0.1% topical cream 1 application, Topically, 2 times a day, # 15 Gm, 0 Refills, Maintenance, 12/15/18 13:51:15 EDT, Cream Start Date: 12/15/18 Stop Date: 12/29/18 Status: Ordered venlafaxine 150 mg oral capsule, extended release 1 capsule = 150 mg, By Mouth, Daily, 0 Refills, Maintenance Start Date: 12/18/10 Status: Ordered venlafaxine 37.5 mg oral capsule, extended release 1 capsule = 37.5 mg, By Mouth, Daily, taken along with 150 mg venlafaxine, 0 Refills, Maintenance Start Date: 03/06/11 Status: Ordered Vitamin C 500 mg oral tablet TAKE ONE TABLET BY MOUTH TWICE A DAY Start Date: 03/03/19 Status: Ordered Problem List Condition Effective Dates [...] 04/09/17(Confirmed) 5 04/09/17 Active Status post total knee repla cement, left(Confirmed) 04/14/01 Active Hypertension(Confirmed) Active Hypothyroidism(Confirmed) Active Knee pain, right(Confirmed) Active 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 at [facility]. 5On/about 04/09/17 underwent left hip replacement for left hip fracture by Jos Locke at [facility] 6Updated Oswestry Disability Index: 40% moderate disability and [place] Back Pain Disability Scale:27 on 10/08/18. 7Updated Oswestry Disability Index: 50% ( severe disability ) on 07/29/17; updated [place] Pain Disability Scale score: 52 on 07/29/17. 8Updated Oswestry Disability Index: 36% moderate disability and [place] Disability Scale:24 on 08/25/2015. 9Initial [place] Pain Disability Scale: 27 on 03/12/2012; initial Oswestry Disability Index: 54%( severe disability ) on 03/12/2012. 10multiple surgeries--first in 1998 11ACE score 6 on 07/29/17 Social History Social History Type Response Smoking Status Former smoker; Other : quit 35 years ago; entered on: 11/11/17 Sex
--- OUTSIDE RECORDS SUMMARY | 2023-11-09 00:40 | XMS_ITS | Continuity of Care Document ---
Author Organization [facility] Address [address] [place] [address]- Care Team Providers Care Roofing Tile Sorter Name Role Phone Po Thania FALK Primary Care Physician [phone] [place] [facility] [place] 12/12/20 - 01/11/21 [facility] [address] [place] [address]- Allergies, Adverse Reactions, Alerts Substance Reaction Severity [...] have partial fills on request [facility] [id number] #[id number], # 25 tablet, 0 Refills, Maintenance, 02/17/20 [...] On: 07/28/2020 [facility] DX: M54.4 mechanical low back [...] right thumb by Fred Turk M.D. at [facility]. 3On 04/12/2015 underwent repining trapeziometacarpal joint reconstruction, right thumb status post revision trapeziometacarpal joint arthroplasty, right thumb, with loss of pin fixation by Fred Turk M.D. at [facility]. 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 at [facility]. 5On/04/09/17 underwent left hip replacement for left hip fracture by Jos Locke at [facility] 6On 11/13/19 underwent revision hemiarthroplasty with conversion to total hip arthroplasty for left hip femoral component aseptic loosening by Elijah Stover MD at [facility] 7Updated Oswestry Disability Index: 47% (21/45; [...]
--- OUTSIDE RECORDS SUMMARY | 2023-11-09 00:40 | XMS_ITS | Continuity of Care Document ---
Author Organization [facility] Address [address] [place] [address]- Care Team Providers Care Slitting And Shipping Supervisor Name Role Phone Thania Almaraz MD Primary Care Physician [phone] Encounter [facility] [place] Date(s): 09/27/20 - 12/11/20 [facility] [address] [place] [id number] Attending Physician: Dina Lara MD Admitting Physician: Dina Lara MD Referring Physician: Thania Almaraz MD Allergies, [...] request [facility] [id number] #[id number], # 25 tablet, 0 Refills, Maintenance, 02/17/20 14:00:00 EDT, Tablet, [facility], 187, cm, 02/17/20 11:... Start Date: 02/17/20 Status: Ordered Belbuca 150 mcg buccal film See Instructions, [address] film on inside of cheek and avoid food or drink untilcompletely dissolved, # 28 film, 0 Refills, Maintenance, 12/07/20 12:17:00 EDT, [facility], Partial fill upon patient request [...] Refills 0, Maintenance,Updated On: 07/28/2020 Pharmacy I: [facility] DX: M54.4 mechanical low back pain, [...] EDT, Route to Pharmacy Electronically, [facility], 187, cm, 02/17/20 11:58:00 EDT, [...] right thumb by Fred Turk M.D. at [facility]. 3On 04/12/2015 underwent repining trapeziometacarpal joint reconstruction, right thumb status post revision trapeziometacarpal joint arthroplasty, right thumb, with loss of pin fixation by Fred Turk M.D. at [facility]. 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 at [facility]. 5On/about 04/09/17 underwent left hip replacement for left hip fracture by Jos Locke at [facility] 6On 7/17/20 underwent revision hemiarthroplasty with conversion to total hip arthroplasty for left hip femoral component aseptic loosening by Elijah Stover MD at [facility] 7Updated Oswestry Disability Index: 47% (21/45; [...]
--- OUTSIDE RECORDS SUMMARY | 2023-11-09 00:40 | XMS_ITS | Continuity of Care Document ---
Author Organization [facility] Address [address] [place] [address]- Care Team Providers Care Sales Intern Name Role Phone Po Thania FALK Primary Care Physician [phone] [place] [facility] [place](s): 12/15/20 - 01/14/21 [facility] [address] [place] [address]- Allergies, Adverse Reactions, Alerts Substance Reaction Severity [...] MAX 9 tabs/... Start Date: 01/12/21 Status: Ordered acetaminophen/butalbital/caffeine 325 mg-50 mg-40 mg [...] 4 Refills, Maintenance, 02/17/20 13:49:00 EDT, Tablet, [facility], 187, cm, 02/17/20 11:58:00 EDT, [...] Refills 0, Maintenance,Updated On: 07/28/2020 Pharmacy I: [facility] DX: M54.4 mechanical low back pain, [...] thumb by Fred Turk M.D. at [facility]. 3On 04/12/2015 underwent repining trapeziometacarpal joint reconstruction, right thumb status post revision trapeziometacarpal joint arthroplasty, right thumb, with loss of pin fixation by Fred Truk M.D. at [facility]. 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 at [facility]. 5On/about 04/09/17 underwent left hip replacement for left hip fracture by Jos Locke at [facility] 6On 11/13/19 underwent revision hemiarthroplasty with conversion to total hip arthroplasty for left hip femoral component aseptic loosening by Elijah Stover MD at [facility] 7Updated Oswestry Disability Index: 47% (21/45; [...]
--- OUTSIDE RECORDS SUMMARY | 2023-11-09 00:40 | XMS_ITS | Continuity of Care Document ---
Author Organization [facility] Address [address] [place] [address]- Care Team Providers Care Accountant Auditor Name Role Phone Wojciech FALK, Ayo Primary Care Physician Encounter [facility] [place] Date(s): 01/06/20 - 01/06/[address] [address] [facility] Discharge Disposition: A-D/C Home Attending Physician: Jana [...] Fred Turk M.D. at [facility]. 3On 04/12/2015 underwent repining trapeziometacarpal joint reconstruction, right thumb status post revision trapeziometacarpal joint arthroplasty, right thumb, with loss of pin fixation by Fred Turk M.D. at [facility]. 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 at [facility]. 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 IMPRESSION: No acute abnormality. WSN: [id number] Ordering Physician: Jana Riley Dictated By: Nathaniel Mcbride MD Dictated Date/Time: 01/06/20 1:57 pm Reviewed By: Nathaniel Mcbride MD Signed By: Nathaniel Mcbride MD Signed Date/Time: 01/06/20 1:57 pm Transcribed By: WONG Transcribed Date/Time: 01/06/20 12:58 pm * Exam Date Time Procedure Performing Provider Status 01/06/20 12:41 PM XR Hip w/Pelvis 2-3 View Left Jovanna Ryder; Edwige (Verified) Notes: (XR Hip w/Pelvis 2-3 View Left) Reason For Exam: Pain RESULT: XR Hip w/Pelvis 2-3 View Left [...] white blood cell scan to evaluate for osseous involvement in the setting of known infection/drainage of pus from the surgical wound. WSN: [id number] Ordering Physician: Jana Riley Dictated By: Aguilar Mariano MD Dictated Date/Time: 01/06/20 1:06 pm Reviewed By: Aguilar Mariano MD Signed By: Aguilar Mariano MD Signed Date/Time: 01/06/20 1:06 pm Transcribed By: WONG Transcribed Date/Time: 01/06/20 12:57 pm Vital Signs Most recent to oldest [Reference Range]: 1 2 Oxygen Saturation [94-100 %] 100 % (01/06/20 12:00 PM) 100 % (01/06/20 9:42 AM) Pulse Rate [55-90 bpm] 75 bpm (01/06/20 12:00 PM) 77 bpm (01/06/20 9:42 AM) Blood Pressure [90-138/55-84 mm Hg] 142/ 75mm Hg *H* (01/06/20 12:00 PM) 126/70mm Hg (01/06/20 9:42 AM) Respiratory Rate [16-30 br/min] 20 br/mi n (01/06/20 12:00 PM) 16 br/min (01/06/20 9:42 AM) Temperature [96.8-100.4 DegF] 97.8 DegF (01/06/20 9:42 AM) Mode of Delivery (Oxygen) Room air (01/06/20 12:00 PM) Room air (01/06/20 9:42 AM) Blood pressure sites Arm, right (01/06/20 12:00 PM) Arm, left (01/06/20 9:42 AM) Temperature Route Oral (01/06/20 9:42 AM) Social History Social History Type Response Smoking Status Former smoker; Other : quit 35 years ago; entered on: 11/11/17 Sex Male
--- OUTSIDE RECORDS SUMMARY | 2023-11-09 00:40 | XMS_ITS | Continuity of Care Document ---
Author Organization [facility] Address [address] [place] [address]- Care Team Providers Care Web Designer Developer Name Role Phone Po Thania FALK Primary Care Physician [place] [facility] [place](s): 11/16/20 - 12/16/20 [facility] [address] [place] [address]- Allergies, Adverse Reactions, Alerts Substance Reaction Severity [...] Pt can have partial fills on request [facility] [id number] #[id number], # 25 tablet, 0 Refills, Maintenance, 02/17/20 14:00:00 EDT, Tablet, [facility], 187, cm, 02/17/20 11:... Start Date: 02/17/20 Status: Ordered Belbuca 150 mcg buccal film See Instructions, [address] film on inside of cheek and avoid food or drink untilcompletely dissolved, # 28 film, 0 Refills, Maintenance, 12/07/20 12:17:00 EDT, [facility], Partial fill upon patient request [...] Refills 0, Maintenance,Updated On: 07/28/2020 Pharmacy I: [facility] DX: M54.4 mechanical low back pain, M53.3 [...] 02/17/20 13:50:00 EDT, Route to Pharmacy Electronically, [facility], 187, cm, 02/17/20 11:58:00 EDT, Height, 102, kg, 02/12/20 12:29:00 EDT... Start Date: 02/17/20 Status: Ordered venlafaxine 150 mg oral capsule, extended release 150 mg, 1, capsule, By Mouth, Daily, # 30 capsule, Refills 0, Tot. Refills 0, Maintenance, 02/16/2013:50:00 EDT, Route to Pharmacy Electronically, [facility], 187, cm, 02/17/20 11:58:00 EDT, [...] by Fred Turk M.D. at [facility]. 3On 04/12/2015 underwent repining trapeziometacarpal joint reconstruction, right thumb status post revision trapeziometacarpal joint arthroplasty, right thumb, with loss of pin fixation by Fred Turk M.D. at [facility]. 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 at [facility]. 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
--- OUTSIDE RECORDS SUMMARY | 2023-11-09 00:40 | XMS_ITS | Continuity of Care Document ---
Author Organization [facility] Address [address] [place] [address]- Care Team Providers Care Station Operator Name Role Phone Wojciech FALK, Ayo Primary Care Physician Encounter [facility] [place] Date(s): 12/31/19 - 01/30/20 [facility] [address] [place] [address]- [facility] Allergies, Adverse Reactions, Alerts Substance Reaction Severity [...] right thumb by Fred Turk M.D. at [facility]. 3On 04/12/2015 underwent repining trapeziometacarpal joint reconstruction, right thumb status post revision trapeziometacarpal joint arthroplasty, right thumb, with loss of pin fixation by Fred Turk M.D. at [facility]. 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 at [facility]. 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
--- OUTSIDE RECORDS SUMMARY | 2023-11-09 00:40 | XMS_ITS | Continuity of Care Document ---
Author Organization [facility] Address [address] [place] [address]- Care Team Providers Care Od Grinder Operator Name Role Phone Thania Almaraz MD Primary Care Physician [phone] Encounter [facility] [place] Date(s): 06/10/20 - 09/17/20 [facility] [address] [place] [id number] Attending Physician: Dina Lara MD Admitting Physician: [...] Pt can have partial fills on request [facility] [id number] #[id number], # 25 tablet, 0 Refills, Maintenance, 02/17/20 14:00:00 EDT, Tablet, [facility] 187, cm, 02/17/20 11:... Start Date: 02/17/20 Status: Ordered Colace Capsule 100 mg, 1, capsule, By Mouth, 2 times a day, Refills 0, Maintenance, 11/16/19 9:33:00 EDT Start Date: 11/16/19 Status: Ordered Controlled Substance Agreement Controlled Substance Agreement, See Instructions, # 1 each, Refills 0, Tot. Refills 0, Maintenance,Updated On: 07/28/2020 Pharmacy I: [facility] DX: M54.4 mechanical low back [...] 2 Refills, Maintenance, 02/17/20 13:50:00 EDT, Tablet, [facility] 187, cm, 02/17/20 11:58:00 EDT, [...] EDT,... Start Date: 09/13/20 Status: Ordered ergocalciferol 92940 iu oral capsule See Instructions, Start from [...] 14:34:00 EST Start Date: 03/03/20 Status: Ordered [place] 325 mg-5 mg oral tablet 1-2 tablet, [...] right thumb by Fred Turk M.D. at [facility]. 3On 04/12/2015 underwent repining trapeziometacarpal joint reconstruction, right thumb status post revision trapeziometacarpal joint arthroplasty, right thumb, with loss of pin fixation by Fred Turk M.D. at [facility]. 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 at [facility]. 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 8Updated Oswestry Disability Index: 40% moderate disability and [place] Pain Disability Scale:27 on 10/08/18. 9Updated Oswestry Disability Index: 50% ( severe disability ) on 07/29/17; updated [place] Disability Scale score: 52 on 07/29/17. 10Updated Oswestry Disability Index: 36% moderate disability and [place] Pain Disability Scale:24 on 08/25/2015. 11Initial [place] Pain Disability Scale: 27 on 03/12/2012; initial Oswestry Disability Index: 54%( severe disability ) on 03/12/2012. 12multiple surgeries--first in 1998 13ACE score 6 on 07/29/17 Social History Social History Type Response Smoking Status Former smoker; Other : quit 35 years ago; entered on: 11/11/17 Sex Male
--- OUTSIDE RECORDS SUMMARY | 2023-11-09 00:40 | XMS_ITS | Continuity of Care Document ---
Author Organization [facility] Address [address] [place] [address]- Care Team Providers Care Nuclear Medicine Technologist Name Role Phone Po Thania FALK Primary Care Physician [phone] Encounter [facility] [place] Date(s): 10/11/21 - 11/10/21 [facility] [address] [place] [address]- Attending Physician: Eva Nugent Allergies, Adverse Reactions, [...] On: 07/28/2020 Pharmacy [facility]: [facility] DX: M54.4 mechanical low back pain, [...] thumb by Fred Turk M.D. at [facility]. 3On 04/12/2015 underwent repining trapeziometacarpal joint reconstruction, right thumb status post revision trapeziometacarpal joint arthroplasty, right thumb, with loss of pin fixation by Fred Turk M.D. at [facility]. 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 at [facility]. 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
--- OUTSIDE RECORDS SUMMARY | 2023-11-09 00:40 | XMS_ITS | Continuity of Care Document ---
Author Organization [facility] ter Address [address] [place] [address]- Care Team Providers Care Human Capital Manager Name Role Phone Po Thania FALK Primary Care Physician [facility] Date(s): 12/16/19 - 12/16/[address] [address]- [facility] Discharge Disposition: A-D/C Walkout Attending Physician: Not [...] Fred Turk M.D. at [facility]. 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 by Elijah Stover MD at [facility] 7Updated Oswestry Disability Index: 40% moderate [...] in 1998 12ACE score 6 on 07/29/17 Vital Signs Most recent to oldest [Reference Range]: 1 Oxygen Saturation [94-100 %] 97 % (12/16/19 4:20 PM) Pulse Rate [55-90 bpm] 102 bpm *H* (12/16/19 4:20 PM) Blood Pressure [90-138/55-84 mm Hg] 113/ 75mm Hg (12/16/19 4:20 PM) Respiratory Rate [16-30 br/min] 20 br/mi n (12/16/19 4:20 PM) Temperature [96.8-100.4 DegF] 98.0 DegF (12/16/19 4:20 PM) Mode of Delivery (Oxygen) Room air (12/16/19 4:20 PM) Blood pressure sites Arm, right (12/16/19 4:20 PM) Temperature Route Oral (12/16/19 4:20 PM) Social History Social History Type Response Smoking Status Former smoker; Other : quit 35 years ago; entered on: 11/11/17 Sex Male
--- OUTSIDE RECORDS SUMMARY | 2023-11-09 00:40 | XMS_ITS | Continuity of Care Document ---
Author Organization [facility] Address [address] [place] [address]- Care Team Providers Care Assistant Director Of Financial Aid Name Role Phone Po Thania FALK Primary Care Physician [phone] Encounter [facility] [place] Date(s): 10/24/20 - 11/23/20 [facility] [address] [place] [id number] Allergies, Adverse Reactions, Alerts Substance Reaction [...] Pt can have partial fills on request [facility] [id number] #[id number], # 25 tablet, 0 Refills, Maintenance, 02/17/20 [...] On: 07/28/2020 Pharmacy [facility]: [facility] DX: M54.4 mechanical low back pain, [...] 13:50:00 EDT, Route to Pharmacy Electronically, [facility], 187, cm, 02/17/20 11:58:00 EDT, Height, 102, kg, 02/12/20 12:29:00 EDT... Start Date: 02/17/20 Status: Ordered venlafaxine 150 mg oral capsule, extended release 150 mg, 1, capsule, By Mouth, Daily, # 30 capsule, Refills 0, Tot. Refills 0, Maintenance, 02/16/2013:50:00 EDT, Route to Pharmacy Electronically, [facility], 187, cm, 02/17/20 11:58:00 EDT, [...] right thumb by Fred Turk M.D. at [facility]. 3On 04/12/2015 underwent repining trapeziometacarpal joint reconstruction, right thumb status post revision trapeziometacarpal joint arthroplasty, right thumb, with loss of pin fixation by Fred Turk M.D. at [facility]. 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 at [facility]. 5On04/09/17 underwent left hip replacement for left hip fracture by Jos Locke at 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
--- OUTSIDE RECORDS SUMMARY | 2023-11-09 00:40 | XMS_ITS | Continuity of Care Document ---
Author Organization [facility] Address [address] [place] [address]- Care Team Providers Care Filer Finish Name Role Phone Po Thania FALK Primary Care Physician Encounter [facility] [place] Date(s): 08/02/20 - 09/01/20 [facility] [address] [place] [id number] Allergies, Adverse Reactions, Alerts Substance Reaction [...] can have partial fills on request [facility] [id number] #[id number], # 25 tablet, 0 Refills, Maintenance, 02/17/20 14:00:00 EDT, Tablet, [facility] 187, cm, 02/17/20 11:... Start Date: 02/17/20 Status: Ordered Colace Capsule 100 mg, 1, capsule, By Mouth, 2 times a day, Refills 0, Maintenance, 11/16/19 9:33:00 EDT Start Date: 11/16/19 Status: Ordered Controlled Substance Agreement Controlled Substance Agreement, See Instructions, # 1 each, Refills 0, Tot. Refills 0, Maintenance,Updated On: 07/28/2020 Pharmacy I: [facility] DX: M54.4 mechanical low back pain, [...] 2 Refills, Maintenance, 02/17/20 13:50:00 EDT, Tablet, [facility] 187, cm, 02/17/20 11:58:00 EDT, Height, 102, kg, 02/12/20 12:29:00 EDT, Dry Weight Start Date: 02/17/20 Status: Ordered ergocalciferol 80522 iu oral capsule See Instructions, Start from [...] 14:34:00 EST Start Date: 03/03/20 Status: Ordered [place] 325 mg-5 mg oral tablet 1 tablet, [...] EDT, Route to Pharmacy Electronically, [facility], 187, cm, 02/17/20 11:58:00 EDT, Height, 102, kg, 02/12/20 12:29:00 EDT... Start Date: 02/17/20 Status: Ordered venlafaxine 150 mg oral capsule, extended release 150 mg, 1, capsule, By Mouth, Daily, # 30 capsule, Refills 0, Tot. 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
--- OUTSIDE RECORDS SUMMARY | 2023-11-09 00:41 | XMS_ITS | Continuity of Care Document ---
Author Organization [facility] Address [address] [place] [address]- Care Team Providers Care Nail Making Machine Tender Name Role Phone Po Thania FALK Primary Care Physician [phone] Encounter [facility] Date(s): 11/03/20 - 12/03/20 [facility] [address] [place] [id number] Allergies, Adverse Reactions, Alerts Substance [...] have partial fills on request [facility] [id number] #[id number], # 25 tablet, 0 Refills, Maintenance, 02/17/20 [...] On: 07/28/2020 Pharmacy [facility]: [facility] DX: M54.4 mechanical low back [...] 13:50:00 EDT, Route to Pharmacy Electronically, [facility], 187, cm, 02/17/20 11:58:00 EDT, Height, 102, kg, 02/12/20 12:29:00 EDT... Start Date: 02/17/20 Status: Ordered venlafaxine 150 mg oral capsule, extended release 150 mg, 1, capsule, By Mouth, Daily, # 30 capsule, Refills 0, Tot. Refills 0, Maintenance, 02/16/2013:50:00 EDT, Route to Pharmacy Electronically, [facility], 187, cm, 02/17/20 11:58:00 [...] left hip fracture by Jos Locke at [facility] 6On 11/13/19 underwent revision hemiarthroplasty with [...]
--- OUTSIDE RECORDS SUMMARY | 2023-11-09 00:41 | XMS_ITS | Continuity of Care Document ---
Author Organization [facility] Address [address] [place] [address]- Care Team Providers Care Timber Cutter Name Role Phone Po Thania FALK Primary Care Physician [phone] Encounter [facility] Date(s): 11/22/20 - 12/22/20 [facility] [address] [place] [address]- Allergies, Adverse Reactions, Alerts Substance Reaction Severity [...] fills on request [facility] [id number] #[id number], # 25 tablet, 0 Refills, Maintenance, 02/17/20 [...] EDT, Route to Pharmacy Electronically, [facility], 187, cm, 02/17/20 11:58:00 EDT, Height, 102, kg, 02/12/20 12:29:00 EDT... Start Date: 02/17/20 Status: Ordered venlafaxine 150 mg oral capsule, extended release 150 mg, 1, capsule, By Mouth, Daily, # 30 capsule, Refills 0, Tot. Refills 0, Maintenance, 02/16/2013:50:00 EDT, Route to Pharmacy Electronically, [facility], 187, cm, 02/17/20 11:58:00 EDT, [...] thumb by Fred Turk M.D. at [facility]. 3On 04/12/2015 underwent repining trapeziometacarpal joint reconstruction, right thumb status post revision trapeziometacarpal joint arthroplasty, right thumb, with loss of pin fixation by Fred Turk M.D. at [facility]. 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 at [facility]. 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
--- OUTSIDE RECORDS SUMMARY | 2023-11-09 00:41 | XMS_ITS | Continuity of Care Document ---
Author Organization [facility] Address [address] [place] [address]- Care Team Providers Care Tailercpa Name Role Phone Po Thania FALK Primary Care Physician Encounter [facility] Date(s): 06/17/20 - 07/17/20 [facility] [address] [place] [id number] Allergies, Adverse Reactions, Alerts Substance [...] Pt can have partial fills on request [facility] [id number] #[id number], # 25 tablet, 0 Refills, Maintenance, 02/17/20 14:00:00 EDT, Tablet, [facility], 187, cm, 02/17/20 11:... Start [...] Maintenance, 02/17/20 13:50:00 EDT, Tablet, [facility], 187, cm, 02/17/20 11:58:00 EDT, Height, 102, kg, 02/12/20 12:29:00 EDT, Dry Weight Start Date: 02/17/20 Status: Ordered ergocalciferol 34961 iu oral capsule See Instructions, Start from [...] 14:34:00 EST Start Date: 03/03/20 Status: Ordered [place] 325 mg-5 mg oral tablet 1 tablet, [...] EDT, Route to Pharmacy Electronically, [facility], 187, cm, 02/17/20 11:58:00 EDT, [...] right thumb by Fred Turk M.D. at [facility]. 3On 04/12/2015 underwent repining trapeziometacarpal joint reconstruction, right thumb status post revision trapeziometacarpal joint arthroplasty, right thumb, with loss of pin fixation by Fred Turk M.D. at [facility]. 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 at [facility]. 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 8Updated Oswestry Disability Index: 40% moderate disability and [place] Back Pain Disability Scale:27 on 10/08/18. 9Updated Oswestry Disability Index: 50% ( severe disability ) on 07/29/17; updated [place] Back Pain Disability Scale score: 52 on 07/29/17. 10Updated Oswestry Disability Index: 36% moderate disability and [place] Back Pain Disability Scale:24 on 08/25/2015. 11Initial [place] Back Pain Disability Scale: 27 on 03/12/2012; initial Oswestry Disability Index: 54%( severe disability ) on 03/12/2012. 12multiple surgeries--first in 1998 13ACE score 6 on 07/29/17 Social History Social History Type Response Smoking Status Former smoker; Other : quit 35 years ago; entered on: 11/11/17 Sex Male
--- OUTSIDE RECORDS SUMMARY | 2023-11-09 00:41 | XMS_ITS | Continuity of Care Document ---
Author Organization [facility] Address [address] [place] [address]- Care Team Providers Care Physical Design Engineer Name Role Phone Po Thania FALK Primary Care Physician Encounter [facility] Date(s): 06/25/19 - 10/09/19 [facility] [address] [place] [address] [facility] Attending Physician: Trung Pollard Jr., MD Admitting Physician: Trung Pollard Jr., MD Allergies, Adverse Reactions, Alerts Substance Reaction Severity Status codeine GI upset Active aspirin Active hydrochlorothiazide Active Soma mood changes Active Topamax bilateral hand shaking Activ e nonsteroidal anti-inflammatory agents 1 Active 1dumping syndrome Medications acetaminophen/butalbital/caffeine 325 mg-50 [...] Signed On: 10/08/18 [facility] DX: mechanical back pain (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 Start Date: 10/08/18 Status: Ordered cyanocobalamin 1000 mcg/ml injectable solution INJECT 1 ML. SUBCUTANEOUSLY EVERY MONTH.. Start Date: 03/03/19 Status: Ordered Depakote 250 mg oral enteric coated tablet 1.5 tablet = 375 mg, By Mouth, Daily, # 270 tablet, 0 Refills, Maintenance, 01/04/14 8:16:25 EDT, EC Tablet Start Date: 01/04/14 Status: Ordered [...] 8:54:13 EDT Start Date: 01/20/19 Status: Ordered [place] 325 mg-5 mg oral tablet 0.5 -1 tablet, By Mouth, Every 4 hours, PRN pain, max 5 tabs daily, # 140 tablet, 0 Refills, Maintenance, 09/24/19 10:52:00 EDT, Tablet, [facility], Partial fill upon patient request, 0.5 -1 tablet By Mouth Every 4 hours,PRN:pain,Instr:ma... Start Date: 09/24/19 Status: Ordered omeprazole 40 mg oral enteric coated capsule 1 capsule = 40 mg, By Mouth, Daily, # 30 capsule, 0 Refills, Maintenance, 08/25/15 8:54:33, EC Capsule Start Date: 08/25/15 Status: Ordered promethazine 25 mg oral tablet 2 tablet = 50 mg, By Mouth, Daily, PRN as needed for nausea/vomiting, 0 Refills, Maintenance, 10/21/17 13:57:18 EDT Start Date: 10/21/17 Status: Ordered traZODone 50 mg oral tablet [...] A DAY Start Date: 03/03/19 Status: Ordered Wheeled walker with seat and hand brakes Wheeled walker with seat and hand brakes, See Instructions, # 1 each, Refills 0, Tot. Refills 0, Maintenance, as directed for support of left hip and knee pending hip revision surgery, 10/06/19 18:08:00 EDT, Supply Start Date: 10/06/19 Status: Ordered Problem List Condition Effective Dates [...] 07/03/16 Active Hearing deficit(Confirmed) Active Hip pain, left-likely relate d to greater trochanteric bursitis(Confirmed) Active Status post left hip replace ment [...] M.D. at [facility]. 5On/04/09/17 underwent left hip replacement for left hip fracture by Jos Locke at [facility] 6Updated Oswestry Disability Index: 40% moderate disability and [place] Back Pain Disability Scale:27 on 10/08/18. 7Updated Oswestry Disability Index: 50% ( severe disability ) on 07/29/17; updated [place] Back Pain Disability Scale score: 52 on 07/29/17. 8Updated Oswestry Disability Index: 36% moderate disability and [place] Back Pain Disability Scale:24 on 08/25/2015. 9Initial [place] Back Pain Disability Scale: 27 on 03/12/2012; initial Oswestry Disability Index: 54%( severe disability ) on 03/12/2012. 10multiple surgeries--first in 1998 11ACE score 6 on 07/29/17 Vital Signs Most recent to oldest [Reference Range]: 1 Height 180.34 cm (09/09/19 9:23 AM) Social History Social History Type Response Smoking Status Former smoker; Other : quit 35 years ago; entered on: 11/11/17 Sex
--- OUTSIDE RECORDS SUMMARY | 2023-11-09 00:41 | XMS_ITS | Continuity of Care Document ---
Author Organization [facility] Address [address] [place] [address]- Care Team Providers Care Horse Racing Analyst Name Role Phone Thania Almaraz MD Primary Care Physician Encounter [facility] Date(s): 02/15/21 - 06/08/21 [facility] [address] [place] [address]- Attending Physician: Trung Pollard Jr, MD Admitting Physician: Latrice Samuels MD, Trung Burnett Referring Physician: Thania Almaraz MD Allergies, Adverse Reactions, Alerts Substance Reaction Severity Status codeine GI upset Active Topamax bilateral hand shaking Activ e aspirin Active hydrochlorothiazide Active Soma mood changes Active nonsteroidal anti-inflammatory agents 1 Active 1dumping [...] On: 07/28/2020 Pharmacy [facility]: [facility] DX: M54.4 mechanical low back pain, [...] right thumb by Fred Turk M.D. at [facility]. 3On 04/12/2015 underwent repining trapeziometacarpal joint reconstruction, right thumb status post revision trapeziometacarpal joint arthroplasty, right thumb, with loss of pin fixation by Fred Turk M.D. at [facility]. 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 at [facility]. 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
--- OUTSIDE RECORDS SUMMARY | 2023-11-09 00:41 | XMS_ITS | Continuity of Care Document ---
Author Organization [facility] Address [address] [place] [address]- Care Team Providers Care Multiple Cut Off Saw Operator Name Role Phone Po Thania FALK Primary Care Physician [phone] [place] [facility] [place] 05/29/19 - 07/03/19 [facility] [address] [place] [address]- [facility] Attending Physician: Mary Lugo MD Admitting Physician: Mary Lugo MD Allergies, Adverse Reactions, Alerts Substance Reaction Severity Status codeine GI upset Active aspirin Active hydrochlorothiazide Active trazodone blood pressure Active Soma mood changes Active Topamax bilateral [...] Signed On: 10/08/18 [facility] (M54.5), meralgia [...] 8:54:13 EDT Start Date: 01/20/19 Status: Ordered [place] 325 mg-5 mg oral tablet 0.5 -1 tablet, By Mouth, Every 4 hours, PRN pain, max 5 tabs daily, # 140 tablet, 0 Refills, Maintenance, 06/25/19 14:17:00 EST, Tablet, [facility], Partial fill upon patient request, 0.5 -1 tablet By Mouth Every 4 hours,PRN:pain,Instr:ma... Start Date: 06/25/19 Status: Ordered omeprazole 40 mg oral enteric [...] Jos Locke at [facility] 6Updated Oswestry Disability Index: 40% moderate disability and [place] Back Pain Disability Scale:27 on 10/08/18. 7Updated Oswestry Disability Index: 50% ( severe disability ) on 07/29/17; updated [place] Back Pain Disability Scale score: 52 on 07/29/17. 8Updated Oswestry Disability Index: 36% moderate disability and [place] Back Pain Disability Scale:24 on 08/25/2015. 9Initial [place] Back Pain Disability Scale: 27 on 03/12/2012; initial Oswestry Disability Index: 54%( severe disability ) on 03/12/2012. 10multiple surgeries--first in 1998 11ACE score 6 on 07/29/17 Social History Social History Type Response Smoking Status Former smoker; Other : quit 35 years ago; entered on: 11/11/17 Sex
--- OUTSIDE RECORDS SUMMARY | 2023-11-09 00:41 | XMS_ITS | Continuity of Care Document ---
Author Organization [facility] Address [address] [place] [address]- Care Team Providers Care Instant Potato Processor Name Role Phone Po Thania FALK Primary Care Physician [phone] Encounter [facility] [place] Date(s): 12/02/19 - 01/01/20 [facility] [address] [place] [address]- [facility] Allergies, Adverse Reactions, Alerts Substance [...] right thumb by Fred Turk M.D. at [facility]. 3On 04/12/2015 underwent repining trapeziometacarpal joint reconstruction, right thumb status post revision trapeziometacarpal joint arthroplasty, right thumb, with loss of pin fixation by Fred Turk M.D. at [facility]. 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 at [facility]. 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 8Updated Oswestry Disability Index: 50% ( severe disability ) on 07/29/17; updated [place] Pain Disability Scale score: 52 on 07/29/17. 9Updated Oswestry Disability Index: 36% moderate disability and [place] Back Pain Disability Scale:24 on 08/25/2015. 10Initial [place] Back Pain Disability Scale: 27 on 03/12/2012; initial Oswestry Disability Index: 54%( severe disability ) on 03/12/2012. 11multiple surgeries--first in 1998 12ACE score 6 on 07/29/17 Social History Social History Type Response Smoking Status Former smoker; Other : quit 35 years ago; entered on: 11/11/17 Sex Male
--- OUTSIDE RECORDS SUMMARY | 2023-11-09 00:41 | XMS_ITS | Continuity of Care Document ---
Author Organization [facility] Address [address] [place] [phone]- Care Team Providers Care Cat Cracker Operator Name Role Phone Po Thania FALK Primary Care Physician En[place] [facility] [place] Date(s): 10/29/19 - 12/11/19 [facility] [address] [place] [id number]- [facility] Attending Physician: Trung Pollard Jr, MD Admitting [...] right thumb by Fred Turk M.D. at [facility]. 3On 04/12/2015 underwent repining trapeziometacarpal joint reconstruction, right thumb status post revision trapeziometacarpal joint arthroplasty, right thumb, with loss of pin fixation by Fred Turk M.D. at [facility]. 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 at [facility]. 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
--- OUTSIDE RECORDS SUMMARY | 2023-11-09 00:41 | XMS_ITS | Continuity of Care Document ---
Author Organization [facility] Address [address] [place] [phone]- Care Team Providers Care Goal Umpire Name Role Phone Po Thania FALK Primary Care Physician En[place] [facility] [place] Date(s): 04/04/20 - 05/04/20 [facility] [address] [place] [id number] Allergies, Adverse Reactions, Alerts Substance [...] have partial fills on request [facility] [id number] #[id number], # 25 tablet, 0 Refills, Maintenance, 02/17/20 14:00:00 EDT, Tablet, [facility], 187, cm, 02/17/20 11:... Start Date: 02/17/20 Status: Ordered Colace Capsule 100 mg, 1, capsule, By Mouth, 2 times a day, Refills 0, Maintenance, 11/16/19 9:33:00 EDT Start Date: 11/16/19 Status: Ordered divalproex sodium 250 mg oral enteric coated tablet = 250 mg, By Mouth, 2 times a day, # 60 tablet, 2 Refills, Maintenance, 02/17/20 13:50:00 EDT, Tablet, [facility], 187, cm, 02/17/20 11:58:00 EDT, Height, 102, kg, 02/12/20 12:29:00 EDT, Dry Weight Start Date: 02/17/20 Status: Ordered ergocalciferol 49049 iu oral capsule See Instructions, Start from 02/24/2020- 1 capsule By Mouth Every 7 days x 7 weeks, then 1 capsule by mouth once a month, # 10 capsule, Refills 0, Tot. Refills 0, Maintenance, 02/24/20 9:00:00 EDT, Instructions Replace Required Details, Route to Pharm... Start Date: 02/24/20 Status: Ordered fexofenadine 180 mg oral tablet TAKE 1 TABLET BY MOUTH ONCE A DAY NEEDED.. Start Date: 03/03/20 Status: Ordered nalOXONE Once, 0 Refills, Maintenance, 03/03/20 14:34:00 EST Start Date: 03/03/20 Status: Ordered [place] 325 mg-5 mg oral tablet 0.5 -1 tablet, By Mouth, Every 4 hours, PRN pain, max 5 tabs daily, # 140 tablet, 0 Refills, Maintenance, 05/02/20 13:13:00 EST, Tablet, [facility], Partial fill upon patient request, [...] 02/17/20 13:50:00 EDT, Route to Pharmacy Electronically, [facility], 187, cm, 02/17/20 11:58:00 EDT, Height, 102, kg, 02/12/20 12:29:00 EDT... Start Date: 02/17/20 Status: Ordered venlafaxine 150 mg oral capsule, extended release 150 mg, 1, capsule, By Mouth, Daily, # 30 capsule, Refills 0, Tot. Refills 0, Maintenance, 02/16/2013:50:00 EDT, Route to Pharmacy Electronically, [facility], 187, cm, 02/17/20 11:58:00 [...] thumb by Fred Turk M.D. at [facility]. 3On 04/12/2015 underwent repining trapeziometacarpal joint reconstruction, right thumb status post revision trapeziometacarpal joint arthroplasty, right thumb, with loss of pin fixation by Fred Turk M.D. at [facility]. 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 at [facility]. 5On/about 04/09/17 underwent left hip replacement for left hip fracture by Jos Locke at 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
--- OUTSIDE RECORDS SUMMARY | 2023-11-09 00:41 | XMS_ITS | Continuity of Care Document ---
Author Organization [facility] Address [address] [place] [address]- Care Team Providers Care Space And Missile Defense Operations Name Role Phone Po Thania FALK Primary Care Physician Encounter [facility] Date(s): 06/17/20 - 07/17/20 [facility] [address] [place] [id number] Allergies, Adverse Reactions, Alerts Substance [...] have partial fills on request [facility] [id number] #[id number], # 25 tablet, 0 Refills, Maintenance, 02/17/20 14:00:00 EDT, Tablet, [facility], 187, cm, 02/17/20 11:... Start [...] Maintenance, 02/17/20 13:50:00 EDT, Tablet, [facility], 187, cm, 02/17/20 11:58:00 EDT, Height, 102, kg, 02/12/20 12:29:00 EDT, Dry Weight Start Date: 02/17/20 Status: Ordered ergocalciferol 10406 iu oral capsule See Instructions, Start from [...] 14:34:00 EST Start Date: 03/03/20 Status: Ordered [place] 325 mg-5 mg oral tablet 1 tablet, [...] EDT, Route to Pharmacy Electronically, [facility], 187, cm, 02/17/20 11:58:00 EDT, [...] right thumb by Fred Turk M.D. at [facility]. 3On 04/12/2015 underwent repining trapeziometacarpal joint reconstruction, right thumb status post revision trapeziometacarpal joint arthroplasty, right thumb, with loss of pin fixation by Fred Turk M.D. at [facility]. 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 at [facility]. 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
--- OUTSIDE RECORDS SUMMARY | 2023-11-09 00:41 | XMS_ITS | Continuity of Care Document ---
Author Organization [facility] ter Address [address] [place] [address]- Care Team Providers Care Septic Tank Cleaner Name Role Phone Po Thania FALK Primary Care Physician [phone] [facility] [place] Date(s): 11/13/19 - 12/13/[address] [address]- [facility] Attending Physician: Not on Staff, Attending MD [...] right thumb by Fred Turk M.D. at [facility]. 3On 04/12/2015 underwent repining trapeziometacarpal joint reconstruction, right thumb status post revision trapeziometacarpal joint arthroplasty, right thumb, with loss of pin fixation by Fred Turk M.D. at [facility]. 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 at [facility]. 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
--- OUTSIDE RECORDS SUMMARY | 2023-11-09 00:41 | XMS_ITS | Continuity of Care Document ---
Author Organization [facility] Address [address] [place] [address]- Care Team Providers Care Rotary Cutter Operator Name Role Phone Po Thania FALK Primary Care Physician Encounter [facility] [place] Date(s): 12/19/20 - 01/18/21 [facility] [address] [place] [address]- Allergies, Adverse Reactions, Alerts Substance Reaction Severity [...] 4 Refills, Maintenance, 02/17/20 13:49:00 EDT, Tablet, [facility], 187, cm, 02/17/20 11:58:00 EDT, [...] Refills 0, Maintenance,Updated On: 07/28/2020 Pharmacy I: [facility] DX: M54.4 mechanical low [...] right thumb by Fred Turk M.D. at [facility]. 3On 04/12/2015 underwent repining trapeziometacarpal joint reconstruction, right thumb status post revision trapeziometacarpal joint arthroplasty, right thumb, with loss of pin fixation by Fred Turk M.D. at [facility]. 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 at [facility]. 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
--- OUTSIDE RECORDS SUMMARY | 2023-11-09 00:41 | XMS_ITS | Continuity of Care Document ---
Author Organization [facility] ter Address [address] [place] [address]- Care Team Providers Care Mutual Funds Agent Name Role Phone Po Thania FALK Primary Care Physician Encounter [facility] [place] Date(s): 12/18/19 - 12/28/[address] [address]- [facility] Encounter Diagnosis Hip dislocation, left(Final) - 12/18/19 Discharge Disposition: A-Transfer SNF Attending Physician: Bladimir Hinojosa MD Admitting Physician: Elijah Stover MD Referring [...] 9:33:00 EDT Start Date: 11/16/19 Status: Ordered LORazepam 2 mg oral tablet 1 tablet = 2 mg, By Mouth, 2 times a day, PRN as needed for anxiety, # 7 tablet, 0 Refills, Acute 01/01/20 15:03:00 EDT, 12/28/19 15:02:00 EDT, Tablet Start Date: 12/28/19 Stop Date: 01/01/20 Status: Ordered mupirocin 2% topical ointment 1 [...] thumb by Fred Turk M.D. at [facility]. 3On 04/12/2015 underwent repining trapeziometacarpal joint reconstruction, right thumb status post revision trapeziometacarpal joint arthroplasty, right thumb, with loss of pin fixation by Fred Turk M.D. at [facility]. 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 at [facility]. 5On04/09/17 underwent left hip replacement for left hip fracture by Jos Locke at [facility] 6On 11/13/19 underwent revision hemiarthroplasty with conversion to total hip arthroplasty for left hip femoral component aseptic loosening by Elijah Stover MD at [facility] 7Updated Oswestry Disability Index: 40% moderate [...] Results Orders for Microbiology Reports Name Date Urine Culture (URINE CULTURE) 12/25/19 Microbiology Reports TEST:Urine Culture STATUS:Auth (Verified) BODY SITE: SOURCE:URINE COLLECTED DATE/TIME:12/25/19 10:00 PM Urine Culture SPECIMEN DESCRIPTION : URINE CLEAN CATCH/MIDSTREAM SPECIAL REQUESTS : NONE Reflexed from [id number] CULTURE : 50-100,000 COL/ML PSEUDOMONAS AERUGINOSA REPORT STATUS : FINAL 12/28/2019 ORGANISM 50-100,000 COL/ML PSEUDOMONAS AERUGINOSA METHOD MIN. INHIB. CONC. (MCG/ML) CEFEPIME SUSCEPTIBLE CEFTAZIDIME SUSCEPTIBLE CIPROFLOXACIN SUSCEPTIBLE GENTAMICIN SUSCEPTIBLE LEVOFLOXACIN SUSCEPTIBLE MEROPENEM SUSCEPTIBLE PIPERACILLIN/TAZOBAC SUSCEPTIBLE Radiology Reports * Exam Date Time Procedure Performing Provider Status 12/19/19 2:49 PM Chest Portable Sesar Romo (Verified) Notes: (Chest Portable) Reason For Exam: Shortness of Breath RESULT: Chest Portable Chest Portable Reason: Shortness of Breath; Clinical Question(s): Pneumonia COMPARISON: 12/10/2019 FINDINGS: LINES AND TUBES: None. LUNGS AND PLEURA: No pneumothorax. No pleural effusion. Stable prominence of interstitium with otherwise clear lungs.Mild basilar atelectasis. Mild prominence of the pulmonary vasculature, unchanged. HEART, MEDIASTINUM AND NANNETTE: Mild cardiomegaly, unchanged. Aorta is somewhat tortuous. Right upper paratracheal soft tissue prominence is unchanged and likely exaggerated by slight patient rotation. BONES AND SOFT TISSUES: No acute bony abnormalities. Surgical clips upper abdomen. IMPRESSION: Mild basilar atelectasis. No definite consolidation. WSN: [id number] Ordering Physician: Ta Mcfadden Dictated By: Noe Moreno MD Dictated Date/Time: 12/19/19 4:29 pm Reviewed By: Noe Moreno MD Signed By: Noe Moreno MD Signed Date/Time: 12/19/19 4:29 pm Transcribed By: WONG Transcribed Date/Time: 12/19/19 4:27 pm * Exam Date Time Procedure Performing Provider Status 12/19/19 8:41 AM Pelvis 1 or 2 Views Tammie Oconnell; Edwige (Verified) Notes: (Pelvis 1 or 2 Views) Reason For Exam: Postop Prosthesis RESULT: Pelvis 1 or 2 Views Pelvis 1 or 2 Views Reason: Postop Prosthesis; Clinical Question(s): Status of Hip Prosthesis COMPARISON: 12/18/2019 FINDINGS: There is a left hip arthroplasty and anatomic alignment without fragmentation, dislocation or loosening. There are overlying skin musa, and there is surrounding soft tissue gas. Numerousmetallic prostatic seeds noted. A rectal tube or Cesar catheter is in place. Overlying surgical mesh within pelvis. IMPRESSION: Left hip arthroplasty in anatomic alignment. WSN: [id number] Ordering Physician: Jodie Hawkins Dictated By: Noe Moreno MD Dictated Date/Time: 12/19/19 12:12 p Reviewed By: Noe Morneo MD Signed By: Noe Moreno MD Signed Date/Time: 12/19/19 12:12 pm Transcribed By: WONG Transcribed Date/Time: 12/19/19 12:10 pm * Exam Date Time Procedure Performing Provider Status 12/18/19 9:31 PM Pelvis 1 or 2 Views Charissa Rodriguez [facility] (Verified) Notes: (Pelvis 1 or 2 Views) Reason For Exam: post op RESULT: Pelvis 1 or 2 Views PROCEDURE: Pelvis 1 or 2 Views CLINICAL INDICATION: 74 years old Male with repeat revision of LEFT hip replacement. TECHNIQUE: Portable AP view of the lower pelvis and hips obtained in the OR. COMPARISONS: Multiple pelvis and LEFT hip radiographs from earlier this month. FINDINGS: Total LEFT hip replacement is again noted. Although the appearance is similar to the previous prosthesis by history this is a new prosthesis. There is anatomic alignment as can be seen on the frontalprojection only. The acetabular component is fixated by two threaded screws. As expected there is gas surrounding the LEFT hip region. A Cesar catheter ends in the expected location of the urinary guicho dder. Metallic anchors are noted transversely in the mid pelvis from herniorrhaphy mesh. Multiple prostate gland seeds noted. IMPRESSION: 1. Good alignment of the total LEFT hip replacement prosthesis in the frontal projection. Expected postoperative changes. Thank you for allowing me to participate in the care of this patient. WSN: [id number] Ordering Physician: Elijah Stover Dictated By: Manjinder Sunshine MD Dictated Date/Time: 12/18/19 10:30 p Reviewed By: Manjinder Sunshine MD Signed By: Manjinder Sunshine MD Signed Date/Time: 12/18/19 10:30 pm Transcribed By: WONG Transcribed Date/Time: 12/18/19 10:26 pm * Exam Date Time Procedure Performing Provider Status 12/18/19 1:05 PM Pelvis 1 or 2 Views Clifton Brown (Verified) Notes: (Pelvis 1 or 2 Views) Reason For Exam: Pain RESULT: Pelvis 1 or 2 Views Pelvis 1 or 2 Views, XR Femur 1 View Left Hx of Present Illness: Fall left hip pain COMPARISON: Same day radiographs as well as a 1220 FINDINGS: Redemonstrated superolateral dislocation of the left femoral component relative to the acetabular component. There is heterotopic bone lateral to the greater trochanter without periprosthetic fracture. No evidence of loosening. Brachytherapy seeds are noted. Hernia mesh over the upper pelvis. Visualized right is internally rotated, limiting evaluation. Abnormal lucency within the medial femoral condyle surrounding the prosthesis as well as lateral tothe cement in the lateral tibial plateau. No distal femoral fracture. IMPRESSION: Superolateral hip dislocation. No periprosthetic fracture. Abnormal lucency surrounding the medial femoral component and lateral tibial component of the knee arthroplasty is concerning for loosening or particle disease. Correlation with prior radiographs if available and nonemergent bone scan is recommended. Findings discussed with Dr. Noe Tipton at 1:22 PM 12/18/2019. WSN: [id number] Ordering Physician: Evens Masters Dictated By: Harjinder Adams MD Dictated Date/Time: 12/18/19 1:23 pm Reviewed By: Harjinder Adams MD Signed By: Harjinder Adams MD Signed Date/Time: 12/18/19 1:23 pm Transcribed By: WONG Transcribed Date/Time: 12/18/19 1:13 pm * Exam Date Time Procedure Performing Provider Status 12/18/19 1:05 PM XR Femur 1 View Left Clifton Brown [facility] (Verified) Notes: (XR Femur 1 View Left) Reason For Exam: Pain RESULT: XR Femur 1 View Left Pelvis 1 or 2 Views, XR Femur 1 View Left Hx of Present Illness: Fall left hip pain COMPARISON: Same day radiographs as well as a 1220 FINDINGS: Redemonstrated superolateral dislocation of the left femoral component relative to the acetabular component. There is heterotopic bone lateral to the greater trochanter without periprosthetic fracture. No evidence of loosening. Brachytherapy seeds are noted. Hernia mesh over the upper pelvis. Visualized right is internally rotated, limiting evaluation. Abnormal lucency within the medial femoral condyle surrounding the prosthesis as well as lateral tothe cement in the lateral tibial plateau. No distal femoral fracture. IMPRESSION: Superolateral hip dislocation. No periprosthetic fracture. Abnormal lucency surrounding the medial femoral component and lateral tibial component of the knee arthroplasty is concerning for loosening or particle disease. Correlation with prior radiographs if available and nonemergent bone scan is recommended. Findings discussed with Dr. Noe Tipton at 1:22 PM 12/18/2019. WSN: [id number] Ordering Physician: Evens Masters Dictated By: Harjinder Adams MD Dictated Date/Time: 12/18/19 1:23 pm Reviewed By: Harjinder Adams MD Signed By: Harjinder Adams MD Signed Date/Time: 12/18/19 1:23 pm Transcribed By: WONG Transcribed Date/Time: 12/18/19 1:13 pm * Exam Date Time Procedure Performing Provider Status 12/18/19 11:41 AM XR Hip 1 View Left Valery Merida; Иван odified Notes: (XR Hip 1 View Left) Reason For Exam: Decreased ROM RESULT: Hip 1 View Left Hip 1 View Left Hx of Present Illness: Fall left hip pain Pt wearing a brace for left hip COMPARISON: 12/09/2019 FINDINGS: Recurrent dislocation of the prosthetic femoral head superolaterally inferior aspect of the long femoral component is not included in the pahea-iw-scfg. Ossific densities projecting lateral to the trochanteric region are indeterminate but may reflect heterotopic ossification. Partially imaged hernia mesh. 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 No definitive periprosthetic fracture. Ossific densities projecting lateral to the trochanteric region are indeterminate but may reflect heterotopic ossification. WSN: [id number] Ordering Physician: Noe Tipton Dictated By: Harjinder Adams MD Dictated Date/Time: 12/18/19 12:16 p Reviewed By: Harjinder Adams MD Signed By: Harjinder Adams MD Signed Date/Time: 12/18/19 12:16 pm Transcribed By: WONG Transcribed Date/Time: 12/18/19 12:13 pm Vital Signs Most recent to oldest [Reference Range]: 1 2 3 Height 184 cm (12/27/19 8:11 AM) 184 cm (12/26/19 7:30 AM) 184 cm (12/25/19 7:00 PM) Weight 116 kg (12/19/19 12:34 AM) 113 kg (12/18/19 6:41 PM) 113 kg (12/18/19 10:36 AM) Oxygen Saturation [94-100 %] 97 % (12/28/19 7:00 AM) 97 % (12/27/19 8:00 PM) 97 % (12/27/19 8:11 AM) Pulse Rate [55-90 bpm] 73 bpm (12/28/19 7:00 AM) 80 bpm (12/27/19 8:00 PM) 77 bpm (12/27/19 8:11 AM) Body Mass Index [18.5-24.99] 34.26 *>HHI* (12/19/19 12:34 AM) 33.38 *>HHI* (12/18/19 6:41 PM) Blood Pressure [90-138/55-84 mm Hg] 94/59mm Hg (12/28/19 7:00 AM) 107/67mm Hg (12/27/19 8:00 PM) 93/66mm Hg (12/27/19 8:11 AM) Respiratory Rate [16-30 br/min] 18 br/min (12/28/19 2:36 PM) 18 br/min (12/28/19 1:15 PM) 18 br/min (12/28/19 9:17 AM) Temperature [96.8-100.4 DegF] 98.2 DegF (12/28/19 7:00 AM) 98.2 DegF (12/27/19 8:00 PM) 97.4 DegF (12/27/19 8:11 AM) Liters per Minute 2 L/min (12/20/19 10:00 AM) 2 L/min (12/20/19 8:00 AM) 2 L/min (12/20/19 6:00 AM) Mode of Delivery (Oxygen) Room air (12/28/19 7:00 AM) Room air (12/27/19 8:00 PM) Room air (12/27/19 8:11 AM) Blood pressure sites Arm, left (12/28/19 7:00 AM) Arm, right (12/27/19 8:00 PM) Arm, left (12/27/19 8:11 AM) Temperature Route Oral (12/28/19 7:00 AM) Oral (12/27/19 8:00 PM) Oral (12/27/19 8:11 AM) Dry Weight 116 kg (12/19/19 12:34 AM) Weight Obtained Via Bed scale (12/19/19 12:34 AM) Dry Weight Obtained Via Bed scale (12/19/19 12:34 AM) Mobility assistance Immobile, Total assistance (12/20/19 8:23 AM) Immobile, Total assistance (12/19/19 8:24 PM) Social History Social History Type Response Smoking Status Former smoker; Other : quit 35 years ago; entered on: 11/11/17 Sex Male
--- OUTSIDE RECORDS SUMMARY | 2023-11-09 00:41 | XMS_ITS | Continuity of Care Document ---
Author Organization [facility] Address [address] [place] [id number]- Care Team Providers Care Telemarketing Supervisor Name Role Phone Thania Almaraz MD Primary Care Physician [phone] [place] [facility] [place] 03/25[place]19 - 06/27/19 [facility] [address] [place] [address]- [facility] Attending Physician: Dina Lara MD Admitting Physician: [...] Signed On: 10/08/18 [facility] mechanical back pain (M54.5), meralgia [...] 8:54:13 EDT Start Date: 01/20/19 Status: Ordered [place] 325 mg-5 mg oral tablet 0.5 -1 [...] right thumb by Fred Turk M.D. at [facility]. 3On 04/12/2015 underwent repining trapeziometacarpal joint reconstruction, right thumb status post revision trapeziometacarpal joint arthroplasty, right thumb, with loss of pin fixation by Fred Turk M.D. at [facility]. 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 at [facility]. 5On/04/09/17 underwent left hip replacement for left hip fracture by Jos Locke at [facility] 6Updated Oswestry Disability Index: 40% moderate disability and [place] Back Pain Disability Scale:27 on 10/08/18. 7Updated Oswestry Disability Index: 50% ( severe disability ) on 07/29/17; updated [place] Back Pain Disability Scale score: 52 on 07/29/17. 8Updated Oswestry Disability Index: 36% moderate disability and [place] Disability Scale:24 on 08/25/2015. 9Initial [place] Pain Disability Scale: 27 on 03/12/2012; initial Oswestry Disability Index: 54%( severe disability ) on 03/12/2012. 10multiple surgeries--first in 1998 11ACE score 6 on 07/29/17 Social History Social History Type Response Smoking Status Former smoker; Other : quit 35 years ago; entered on: 11/11/17 Sex
--- OUTSIDE RECORDS SUMMARY | 2023-11-09 00:41 | XMS_ITS | Continuity of Care Document ---
Author Organization [facility] Address [address] [place] [address]- Care Team Providers Care Inspecting Machine Adjuster Name Role Phone Po Thania FALK Primary Care Physician Encounter [facility] Date(s): 11/15/20 - 12/15/20 [facility] [address] [place] [address]- Allergies, Adverse Reactions, Alerts Substance Reaction Severity [...] can have partial fills on request [facility] [id number] #[id number], # 25 tablet, 0 Refills, Maintenance, 02/17/20 14:00:00 EDT, Tablet, [facility], 187, cm, 02/17/20 11:... Start Date: 02/17/20 Status: Ordered Belbuca 150 mcg buccal film See Instructions, [address] film on inside of cheek and avoid food or drink untilcompletely dissolved, # 28 film, 0 Refills, Maintenance, 12/07/20 12:17:00 EDT, [facility], Partial fill upon patient request [...] Refills 0, Maintenance,Updated On: 07/28/2020 Pharmacy I: [facility] DX: M54.4 mechanical low back pain, M53.3 [...] 02/17/20 13:50:00 EDT, Route to Pharmacy Electronically, [facility], 187, cm, 02/17/20 11:58:00 EDT, Height, 102, kg, 02/12/20 12:29:00 EDT... Start Date: 02/17/20 Status: Ordered venlafaxine 150 mg oral capsule, extended release 150 mg, 1, capsule, By Mouth, Daily, # 30 capsule, Refills 0, Tot. Refills 0, Maintenance, 02/16/2013:50:00 EDT, Route to Pharmacy Electronically, [facility], 187, cm, 02/17/20 11:58:00 EDT, [...] right thumb by Fred Turk M.D. at [facility]. 3On 04/12/2015 underwent repining trapeziometacarpal joint reconstruction, right thumb status post revision trapeziometacarpal joint arthroplasty, right thumb, with loss of pin fixation by Fred Turk M.D. at [facility]. 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 at [facility]. 5On04/09/17 underwent left hip replacement for left hip fracture by Jos Locke at [facility] 6On 11/13/19 underwent revision hemiarthroplasty with conversion to total hip arthroplasty for left hip femoral component aseptic loosening by Elijah Stover MD at [facility] 7Updated Oswestry Disability Index: 47% (21/45; [...]
--- OUTSIDE RECORDS SUMMARY | 2023-11-09 00:41 | XMS_ITS | Continuity of Care Document ---
Author Organization [facility] Address [address] [place] [address]- Care Team Providers Care Management Specialist Name Role Phone Thania Almaraz MD Primary Care Physician Encounter [facility] Date(s): 09/17/19 - 11/21/19 [facility] [address] [place] [address]- [facility] Attending Physician: Trung Pollard Jr, MD Admitting Physician: Trung Pollard Jr, MD Referring [...] Signed On: 10/08/18 [facility]: mechanical back pain (M54.5), meralgia [...] Turk M.D. at [facility]. 3On 04/12/2015 underwent repining trapeziometacarpal joint reconstruction, right thumb status post revision trapeziometacarpal joint arthroplasty, right thumb, with loss of pin fixation by Fred Turk M.D. at [facility]. 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 at [facility]. 5On04/09/17 underwent left hip replacement for left hip fracture by Jos Locke at [facility] 6On 11/13/19 underwent revision hemiarthroplasty with conversion to total hip arthroplasty for left hip femoral component aseptic loosening by Elijah Stover MD at [facility] 7Updated Oswestry Disability Index: 40% moderate disability [...]
--- OUTSIDE RECORDS SUMMARY | 2023-11-09 00:41 | XMS_ITS | Continuity of Care Document ---
Author Organization [facility] Address [address] [place] [address]- Care Team Providers Care Oil Spot Washer Name Role Phone Po Thania FALK Primary Care Physician Encounter [facility] Date(s): 03/17/20 - 04/16/20 [facility] [address] [place], [place] [address] Allergies, Adverse Reactions, Alerts [...] can have partial fills on request [facility] [id number] #[id number], # 25 tablet, 0 Refills, Maintenance, 02/17/20 14:00:00 EDT, Tablet, [facility], 187, cm, 02/17/20 11:... Start Date: 02/17/20 Status: Ordered Colace Capsule 100 mg, 1, capsule, By Mouth, 2 times a day, Refills 0, Maintenance, 11/16/19 9:33:00 EDT Start Date: 11/16/19 Status: Ordered divalproex sodium 250 mg oral enteric coated tablet = 250 mg, By Mouth, 2 times a day, # 60 tablet, 2 Refills, Maintenance, 02/17/20 13:50:00 EDT, Tablet, [facility], 187, cm, 02/17/20 11:58:00 EDT, Height, 102, kg, 02/12/20 12:29:00 EDT, Dry Weight Start Date: 02/17/20 Status: Ordered ergocalciferol 25722 iu oral capsule See Instructions, Start from [...] 14:34:00 EST Start Date: 03/03/20 Status: Ordered [place] 325 mg-5 mg oral tablet 0.5 -1 tablet, By Mouth, Every 4 hours, PRN pain, max 5 tabs daily, # 140 tablet, 0 Refills, Maintenance, 12/07/20 11:08:00 EST, Tablet, [email or web address], Partial fill upon patient request, 0.5 -1 tablet By Mouth Every 4 hours,PRN:pain,Instr:ma... Start Date: 04/04/20 Status: Ordered omeprazole 40 mg oral enteric [...] 02/17/20 13:50:00 EDT, Route to Pharmacy Electronically, [email or web address], 187, cm, 02/17/20 11:58:00 EDT, Height, 102, kg, 02/12/20 12:29:00 EDT... Start Date: 02/17/20 Status: Ordered venlafaxine 150 mg oral capsule, extended release 150 mg, 1, capsule, By Mouth, Daily, # 30 capsule, Refills 0, Tot. Refills 0, Maintenance, 02/16/2013:50:00 EDT, Route to Pharmacy Electronically, [email or web address], 187, cm, 02/17/20 11:58:00 EDT, [...] right thumb by Fred Turk M.D. at [facility]. 3On 04/12/2015 underwent repining trapeziometacarpal joint reconstruction, right thumb status post revision trapeziometacarpal joint arthroplasty, right thumb, with loss of pin fixation by Fred Turk M.D. at [facility]. 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 at [facility]. 5On/about 04/09/17 underwent left hip replacement for left hip fracture by Jos Locke at [facility] 6On 11/13/19 underwent revision hemiarthroplasty with conversion to total hip arthroplasty for left hip femoral component aseptic loosening by Elijah Stover MD at [facility] 7Updated Oswestry Disability Index: 47% (21/45; severe [...]
--- OUTSIDE RECORDS SUMMARY | 2023-11-09 00:42 | XMS_ITS | Continuity of Care Document ---
Author Organization [facility] Address [address] [place] [address]- Care Team Providers Care Rn Dermatology Name Role Phone Po Thania FALK Primary Care Physician Encounter [facility] [place] Date(s): 01/05/21 - 02/04/21 [facility] [address] [place] [address]- Allergies, Adverse Reactions, Alerts Substance Reaction Severity [...] film, 1 Refills, Maintenance, 01/23/21 9:21:00 EDT, [facility], JONATHAN 1, 187, cm, 12/26/20 [...] Refills 0, Maintenance,Updated On: 07/28/2020 Pharmacy I: [facility] DX: M54.4 mechanical low [...] right thumb by Fred Turk M.D. at [facility]. 3On 04/12/2015 underwent repining trapeziometacarpal joint reconstruction, right thumb status post revision trapeziometacarpal joint arthroplasty, right thumb, with loss of pin fixation by Fred Turk M.D. at [facility]. 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 at [facility]. 5On/about 04/09/17 underwent left hip replacement for left hip fracture by Jos Locke at [facility] 6On 11/13/19 underwent revision hemiarthroplasty with conversion to total hip arthroplasty for left hip femoral component aseptic loosening by Elijah Stover MD at [facility] 7Updated Oswestry Disability Index: 47% [...]
--- OUTSIDE RECORDS SUMMARY | 2023-11-09 00:42 | XMS_ITS | Continuity of Care Document ---
Author Organization [facility] Address [address] [place] [address]- Care Team Providers Care Experimental Display Builder Name Role Phone Po Thania FALK Primary Care Physician Encounter [facility] [place] Date(s): 04/04/20 - 05/04/20 [facility] [address] [place] [id number] Allergies, Adverse Reactions, Alerts Substance [...] partial fills on request [facility] [id number] #[id number], # 25 tablet, 0 Refills, Maintenance, 02/17/20 14:00:00 EDT, Tablet, [facility], 187, cm, 02/17/20 11:... Start Date: 02/17/20 Status: Ordered Colace Capsule 100 mg, 1, capsule, By Mouth, 2 times a day, Refills 0, Maintenance, 11/16/19 9:33:00 EDT Start Date: 11/16/19 Status: Ordered divalproex sodium 250 mg oral enteric coated tablet = 250 mg, By Mouth, 2 times a day, # 60 tablet, 2 Refills, Maintenance, 02/17/20 13:50:00 EDT, Tablet, [facility], 187, cm, 02/17/20 11:58:00 EDT, Height, 102, kg, 02/12/20 12:29:00 EDT, Dry Weight Start Date: 02/17/20 Status: Ordered ergocalciferol 24205 iu oral capsule See Instructions, Start from [...] 14:34:00 EST Start Date: 03/03/20 Status: Ordered [place] 325 mg-5 mg oral tablet 0.5 -1 tablet, By Mouth, Every 4 hours, PRN pain, max 5 tabs daily, # 140 tablet, 0 Refills, Maintenance, 05/02/20 13:13:00 EST, Tablet, [email or web address], Partial fill upon patient request, [...] 02/17/20 13:50:00 EDT, Route to Pharmacy Electronically, [email or web address], 187, cm, 02/17/20 11:58:00 EDT, Height, 102, kg, 02/12/20 12:29:00 EDT... Start Date: 02/17/20 Status: Ordered venlafaxine 150 mg oral capsule, extended release 150 mg, 1, capsule, By Mouth, Daily, # 30 capsule, Refills 0, Tot. Refills 0, Maintenance, 02/16/2013:50:00 EDT, Route to Pharmacy Electronically, [email or web address], 187, cm, 02/17/20 11:58:00 EDT, [...] right thumb by Fred Turk M.D. at [facility]. 3On 04/12/2015 underwent repining trapeziometacarpal joint reconstruction, right thumb status post revision trapeziometacarpal joint arthroplasty, right thumb, with loss of pin fixation by Fred Turk M.D. at [facility]. 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 at [facility]. 5On/about 04/09/17 underwent left hip replacement for left hip fracture by Jos Locke at [facility] 6On 11/13/19 underwent revision hemiarthroplasty with conversion to total hip arthroplasty for left hip femoral component aseptic loosening by Elijah Stover MD at [facility] 7Updated Oswestry Disability Index: 47% (21/45; [...]
--- OUTSIDE RECORDS SUMMARY | 2023-11-09 00:42 | XMS_ITS | Continuity of Care Document ---
Author Organization [facility] Address [address] [place] [address]- Care Team Providers Care Digital Traffic Coordinator Name Role Phone Po Thania FALK Primary Care Physician [phone] Encounter [facility] Date(s): 06/09/20 - 07/09/20 [facility] [address] [place] [id number] Allergies, Adverse Reactions, Alerts Substance [...] have partial fills on request [facility] [id number] #[id number], # 25 tablet, 0 Refills, Maintenance, 02/17/20 14:00:00 EDT, Tablet, [facility], 187, cm, 02/17/20 11:... Start [...] Maintenance, 02/17/20 13:50:00 EDT, Tablet, [facility], 187, cm, 02/17/20 11:58:00 EDT, Height, 102, kg, 02/12/20 12:29:00 EDT, Dry Weight Start Date: 02/17/20 Status: Ordered ergocalciferol 25678 iu oral capsule See Instructions, Start from [...] 14:34:00 EST Start Date: 03/03/20 Status: Ordered Eldred 325 mg-5 mg oral tablet 1 tablet, [...] EDT, Route to Pharmacy Electronically, [facility], 187, cm, 02/17/20 11:58:00 EDT, [...] right thumb by Fred Turk M.D. at [facility]. 3On 04/12/2015 underwent repining trapeziometacarpal joint reconstruction, right thumb status post revision trapeziometacarpal joint arthroplasty, right thumb, with loss of pin fixation by Fred Turk M.D. at [facility]. 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 at [facility]. 5On/about 04/09/17 underwent left hip replacement for left hip fracture by Jos Locke at [facility] 6On 11/13/19 underwent revision hemiarthroplasty with conversion to total hip arthroplasty for left hip femoral component aseptic loosening by Elijah Stover MD at [facility] 7Updated Oswestry Disability Index: 47% (21/45; [...]
--- OUTSIDE RECORDS SUMMARY | 2023-11-09 00:42 | XMS_ITS | Continuity of Care Document ---
Author Organization [facility] Address [address] [place] [address]- Care Team Providers Care Music Critic Name Role Phone Po Thania FALK Primary Care Physician Encounter [facility] Date(s): 01/18/21 - 02/17/21 [facility] [address] [place] [address]- Allergies, Adverse Reactions, Alerts Substance Reaction Severity [...] thumb by Fred Turk M.D. at [facility]. 3On 04/12/2015 underwent repining trapeziometacarpal joint reconstruction, right thumb status post revision trapeziometacarpal joint arthroplasty, right thumb, with loss of pin fixation by Fred Turk M.D. at [facility]. 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 at [facility]. 5On/04/09/17 underwent left hip replacement for left hip fracture by Jos Locke at [facility] 6On 11/13/19 underwent revision hemiarthroplasty with conversion to total hip arthroplasty for left hip femoral component aseptic loosening by Elijah Stover MD at [facility] 7Updated Oswestry Disability Index: 47% (21/45; [...]
--- OUTSIDE RECORDS SUMMARY | 2023-11-09 00:42 | XMS_ITS | Continuity of Care Document ---
Author Organization [facility] Address [address] [place] [address]- Care Team Providers Care Diesel Machinist Name Role Phone Po Thania FALK Primary Care Physician Encounter [facility] Date(s): 01/04/21 - 02/03/21 [facility] [address] [place] [address]- Allergies, Adverse Reactions, Alerts Substance Reaction Severity [...] film, 1 Refills, Maintenance, 01/23/21 9:21:00 EDT, [facility], JONATHAN 1, 187, cm, 12/26/20 [...] Refills 0, Maintenance,Updated On: 07/28/2020 Pharmacy I: [facility] DX: M54.4 mechanical low back [...] M.D. at [facility]. 5On/about 04/09/17 underwent left hip replacement for left hip fracture by Jos Locke at [facility] 6On 11/13/19 underwent revision hemiarthroplasty with conversion to total hip arthroplasty for left hip femoral component aseptic loosening by Elijah Stover MD at [facility] 7Updated Oswestry Disability Index: 47% (21/45; severe disability ) on 03/03/20; updated [place] BackPain Disability Scale score: 4 on 03/03/20. 8Updated Oswestry Disability Index: 40% moderate disability and [place] Back Pain Disability Scale:27 on 10/08/18. 9Updated Oswestry Disability Index: 50% ( severe disability ) on 07/29/17; updated [place] Back Pain Disability Scale score: 52 on 07/29/17. 10Updated Oswestry Disability Index: 36% moderate disability and [place] Back Pain Disability Scale:24 on 08/25/2015. 11Initial [place] Back Pain Disability Scale: 27 on 03/12/2012; initial Oswestry Disability Index: 54%( severe disability ) on 03/12/2012. 12multiple surgeries--first in 1998 13ACE score 6 on 07/29/17 Social History Social History Type Response Smoking Status Former smoker; Other : quit 35 years ago; entered on: 11/11/17 Sex Male
--- OUTSIDE RECORDS SUMMARY | 2023-11-09 00:42 | XMS_ITS | Continuity of Care Document ---
Author Organization [facility] Address [address] [place] [address]- Care Team Providers Care Square Shear Operator Name Role Phone Po Thania FALK Primary Care Physician [phone] Encounter [facility] R [id number] Date(s): 05/07/19 - 05/17/19 [facility] [address] [place] [address]- [facility] Attending Physician: Admtr, Eva Allergies, Adverse Reactions, Alerts Substance Reaction Severity [...] On: 10/08/18 [facility] DX: mechanical back pain (M54.5), meralgia paraesthetica [...] 8:54:13 EDT Start Date: 01/20/19 Status: Ordered Spickard 325 mg-5 mg oral tablet 0.5 -1 tablet, By Mouth, 3 times a day, PRN pain, # 84 tablet, 0 Refills, Maintenance, 04/30/19 13:28:00 EST, Tablet, [facility], Partial fill upon patient request, 0.5 -1 tablet By Mouth 3 times a day,PRN:pain, 180.34, cm, 03/25/19 7:29:... Start Date: 04/30/19 Status: Ordered omeprazole 40 mg oral enteric [...] toes, acquired, of alondra th feet(Confirmed) Active Status post cholecystectomy(Confirmed) Active ; Delayed [...] Active Myofascial pain, regional(Confirmed) Active Nausea(Confirmed) Active Leg pain, bilateral, proxima l portion [...] by Fred Turk M.D. at [facility]. 3On 04/12/2015 underwent repining trapeziometacarpal joint reconstruction, right thumb status post revision trapeziometacarpal joint arthroplasty, right thumb, with loss of pin fixation by Fred Turk M.D. at [facility]. 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 at [facility]. 5On/04/09/17 underwent left hip replacement for left hip fracture by Jos Locke at [facility] 6Updated Oswestry Disability Index: 40% moderate disability and [place] Back Pain Disability Scale:27 on 10/08/18. 7Updated Oswestry Disability Index: 50% ( severe disability ) on 07/29/17; updated [place] Pain Disability Scale score: 52 on 07/29/17. 8Updated Oswestry Disability Index: 36% moderate disability and [place] Pain Disability Scale:24 on 08/25/2015. 9Initial [place] Back Pain Disability Scale: 27 on 03/12/2012; initial Oswestry Disability Index: 54%( severe disability ) on 03/12/2012. 10multiple surgeries--first in 1998 11ACE score 6 on 07/29/17 Social History Social History Type Response Smoking Status Former smoker; Other : quit 35 years ago; entered on: 11/11/17 Sex
--- OUTSIDE RECORDS SUMMARY | 2023-11-09 00:42 | XMS_ITS | Patient Health Record ---
Author Organization [facility] Address [address] [place] [address] Care Team Providers Care Vice President Talent Management Name Role Phone Po Thania FALK Primary Care Provider Víctor Graham Unavailable [phone] ALLERGIES Allergen (clinical drug ingredient) Drug/Non Drug Allergy documented on EMR Reaction Allergy Type Onset Date Status carisoprodol Soma Unknown Drug Allergy Acti ve REASON FOR REFERRAL No Information MEDICATIONS Medication SIG (Take, Route, Frequency, Duration) Notes Start Date End Date Status HYDROcodone-Acetaminophen 5-325 MG TAKE up to 2 TABLETS BY MOUTH TODAY, THEN TAKE 1 TABLET DAILY FOR 4 DAYS Oral prn Active LORazepam 1 MG TAKE 2 TABLETS BY MO UTH TODAY, THEN TAKE 1 TABLET DAILY FOR 4 DAYS Orally prn Active Depakote 250 MG 1 tablet Orally once a day Active Eliquis 5 MG as directed Orally Active Alfuzosin HCl ER 10 MG TAKE 1 TABLET BY MOUTH DAILY Oral every night Active Venlafaxine HCl ER 150 MG 187 1/2 mg onc e in am Orally Once a day Active Ferrous Sulfate Acti ve Promethazine HCl 25 MG TAKE ONE TABLET B Y MOUTH EVERY 6 HOURS NEEDED FOR NAUSEA. for 15 Active amLODIPine Besylate 10 MG 1 tablet Orall y Once a day Active Cyclobenzaprine HCl 10 MG 1 tablet Orall y as needed Active Dicyclomine HCl 10 MG 1-2 Orally Q 6 carla rs prn abdominal cramps/discomfort for 30 days 10/21/2019 Active Omeprazole 40 MG 1 capsule Orally Onc e a day Active IMMUNIZATIONS Vaccine Route Administration Date Status Comme nts Flu vaccine no Preserv 3 and > Unknown 02/03/2014 Admin istered Flu vaccine no Preserv 3 and > Unknown 02/01/2015 Admin istered Influenza Unknown 01/20/2016 Administered Flu vaccine no Preserv 3 and > Unknown 01/29/2017 Admin istered Influenza Unknown 02/05/2018 Administered Influenza Unknown 01/27/2019 Administered Influenza Unknown 01/27/2019 Administered Influenza Unknown 01/28/2020 Administered Influenza Unknown 12/28/2021 Administered SOCIAL HISTORY Sex Assigned At : Social History Observation Description Sex Assigned At Unknown PROBLEMS Problem Type ICD Code Onset Dates Problem Status W/U Status Risk SNOMED Code Notes Problem Diverticulitis of large intestine without perforation or abscess without bleeding (K57.32) Active confirmed 4425774 Problem Encounter for screening for malignant neoplasm of colon (Z12.11) Active confirmed 885303635 Problem History of adenomatous polyp of colon (Z86.010) Active confirmed 606625048 Problem Constipation (K59.00) Active confirmed Constipation (60958868) Problem rn long term care (current) use of anticoagulants (Z79.01) Active confirmed 562476444 Problem Nausea (R11.0) Active confirmed Nausea (553690642) Problem Encounter for screening for malignant neoplasm of rectum (Z12.12) Active confirmed Screening for malignant neoplasm of rectum (101812071) Problem Gastroesophageal reflux disease without esophagitis (K21.9) Active confirmed 376503992 Problem Colon adenomas (D12.6) Active confirmed 706679061 Problem 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) Active confirmed 65043779 Problem Oropharyngeal dysphagia (R13.12) Active confirmed 85206162 Problem 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) Active confirmed 01395084 Problem Pharyngeal dysphagia (R13.13) Active confirmed 90376505497591 Problem Diverticulosis of colon (K57.30) Active confirmed Diverticulosi s of colon (467846719) Encounters Encounter Location Date Provider Diagnosis [facility] [address] [place] [address] 10/11/2023 Víctor Brown [facility] [address] [place] [address] 10/11/2023 Víctor Brown PLAN OF TREATMENT Pending Test Test Name Order Date XR BARIUM SWALLOW-ESOPHAGUS 06/30/2019 XR BARIUM SWALLOW-ESOPHAGUS 10/14/2018 Future Test Test Name Order Date UPPER GI ENDOSCOPY 03/22/2015 COLONOSCOPY 03/22/2015 COLONOSCOPY 07/26/2016 COLONOSCOPY 06/11/2017 COLONOSCOPY 10/14/2018 UPPER GI ENDOSCOPY 06/01/2020 COLONOSCOPY 06/01/2020 COLONOSCOPY 05/03/2022 Insurance Providers Payer Name Payer Address Payer Phone Subscriber Number Group Number Insured Name Patient Relationship to Insured Coverage Start Date Coverage End Date MEDICARE OF [place] [address] [place] [address] [id number] KELLIE CASSIDY Self - patient is the insured [employer] ATT[employer] CLAIMS [address] [place] [address] [id number] KELLIE CASSIDY Self - patient is the insured MEDICAL (GENERAL) HISTORY Medical History History ICD Code Hypertension Peptic ulcer disease--s/p Vagotomy and p yloroplasty in his teens Prostate cancer Depression and anxiety Back pain Denies [place],DM,CVA,Lung disease,renal dise ase Dumping syndrome Diverticulitis in 06/2012, 2015, and in 10/2015 --descending colon involved on CT scan-treated as an inpt with antibiotics EGD in 02/2010--normal-s/p p yloroplasty--bx neg for celiac disease and H.pylori Reported neg colonoscopy in 05/2009 in [facility] in 01/2007-sphincterotomy and stone removal Colonoscopies prior to 2009 with removal of polyps Colonoscopy in 02/2014 with removal of a tubular adenoma, but a poor prep limited visulaiztion--other smaller polyps were not removed--a hyperplastic polyp was removed from the rectum and he had some post-procedure inflammation and pain which required him to be in the hospital for a couple days--- he didn't require any type of surgical intervention Vertigo Colonoscopy 09/2014--multiple tubular adenomas removed and a tubulovillous adenoma on the ICV,at least partially removed Low Vit B12--on B12 shots Diverticulitis -05/2015 and in 10/2015--de scending colon EGD in 08/2015--minimal hiata l hernia, no esophagitis, no Pleitez's esophagus, duodenal biopsies were negative for celiac disease, and gastric biopsies were negative for H. pylori Colonoscopy in 08/2015--multi ple adenomatous polyps and a villous adenoma, including a fairly large rectal polyp and a polyp within the ileocecal valve Colonoscopy in 09/2016---polyp on ICV and other adenomas removed Colonoscopy in 09/2017--6 small tubular a denomas Colonoscopy in December of 2018 revealed 2 tubular adenomas that were removed--however, the prep was limited despite a two-day preparation Barium swallow 06/2019 with reflux and de creased esophageal motility COVID 12/2019-asymptomatic except high fe vers Describes a DVT and Pulmonar y embolism with the the hip surgery summer 2019 and has been on Eliquis Atrial fib during his 2019 hip surgeries and DVT Colonoscopy 01/2021 with rem oval of several tubular adenomas--bowel prep was OK, but not perfect Surgical History Surgery Date(Month/Year) Abdominal wall hernia repair X4--not suc essful Left knee replacement 1999 Carpal tunnel release/wrist surgery-vishal t Vagotomy and pyloroplasty for ulcer dise ase in his teens Open CCY in 2006-Dr. Valentin Pilonidal cyst Right hand surgery Right wrist/hand surgery--Dr. Turk /10/2016 Left hip replacement for a fractured hip -Dr. Locke 04/2017 Broken Tib/Fib left leg 04/2018 Left hip surgery with a new replacement x 2 in summer 2019 at [facility]
--- OUTSIDE RECORDS SUMMARY | 2023-11-09 00:42 | XMS_ITS | Continuity of Care Document ---
Author Organization [facility] Address [address] [place] [address]- Care Team Providers Care Evp Operations Name Role Phone Po Thania FALK Primary Care Physician Encounter [facility] Date(s): 05/02/20 - 06/01/20 [facility] [address] [place] [id number] Allergies, Adverse Reactions, Alerts Substance [...] fills on request [facility] [id number] #[id number], # 25 tablet, 0 Refills, Maintenance, 02/17/20 14:00:00 EDT, Tablet, [facility], 187, cm, 02/17/20 11:... Start [...] Maintenance, 02/17/20 13:50:00 EDT, Tablet, [facility], 187, cm, 02/17/20 11:58:00 EDT, Height, 102, kg, 02/12/20 12:29:00 EDT, Dry Weight Start Date: 02/17/20 Status: Ordered ergocalciferol 38032 iu oral capsule See Instructions, Start from [...] 14:34:00 EST Start Date: 03/03/20 Status: Ordered [place] 325 mg-5 mg oral tablet 1 tablet, [...] fracture by Jos Locke at [facility] 611/13/19 underwent revision hemiarthroplasty with conversion [...]
--- OUTSIDE RECORDS SUMMARY | 2023-11-09 00:42 | XMS_ITS | Continuity of Care Document ---
Author Organization [facility] Address [address] [place] [address]- Care Team Providers Care Tuberculosis Specialist Name Role Phone Po Thania FALK Primary Care Physician [phone] [place] [facility] [place] 12/29/19 - 12/30/[address] [address]- [facility] Encounter Diagnosis COVID-19 virus detected(Final) - 12/29/19 Discharge Disposition: A-Transfer SNF Attending Physician: Kristi Bermudez MD Admitting Physician: Kristi Bermudez MD Referring Physician: Not on Staff, Referring [...] EDT, ECCapsule Start Date: 12/19/19 Status: Ordered oxyCODONE 5 mg oral tablet 5 mg, 1, tablet, By Mouth, Every 6 hours, PRN, for 2 days, # 7 tablet, Refills 0, Tot. Refills 0, Acute 12/31/19 22:53:00 EDT, as needed for pain, 12/29/19 22:53:00 EDT, Print Requisition, Partial fill upon patient request Start Date: 12/29/19 Stop Date: 12/31/19 Status: Ordered promethazine 25 mg oral tablet [...] thumb by Fred Turk M.D. at [facility]. 3On 04/12/2015 underwent repining trapeziometacarpal joint reconstruction, right thumb status post revision trapeziometacarpal joint arthroplasty, right thumb, with loss of pin fixation by Fred Turk M.D. at [facility]. 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 at [facility]. 5On/about 04/09/17 underwent left hip replacement for left hip fracture by Jos Locke at [facility] 6On 11/13/19 underwent revision hemiarthroplasty with conversion to total hip arthroplasty for left hip femoral component aseptic loosening by Elijah Stover MD at [facility] 7Updated Oswestry Disability Index: 40% [...] Exam Date Time Procedure Performing Provider Status 12/29/19 5:28 PM Chest Portable Yoanna Brown; Auth (Ve rified) Notes: (Chest Portable) Reason For Exam: Chest Pain;Other: RESULT: Chest Portable Chest Portable AP upright at 1659 hours Hx of Present Illness: sob and covid +; Reason: Other:; Chest Pain COMPARISON: 12/19/2019, 12/10/2019 FINDINGS: LINES AND TUBES: None. LUNGS AND PLEURA: Mildly prominent central pulmonary vasculature, unchanged. No consolidation. No pleural effusion. No pneumothorax. HEART, MEDIASTINUM AND NANNETTE: Mild prominence of the cardiac silhouette, unchanged. Moderate aortic arch calcifications. BONES AND SOFT TISSUES: No acute osseous abnormality. Postsurgical changes at the gastroesophageal junction. IMPRESSION: Mild central pulmonary vascular congestion without definite evidence of underlying inflammatory/infectious process. WSN: [id number] Ordering Physician: Dustin Munoz Dictated By: Vince Rodriguez DO Dictated Date/Time: 12/29/19 5:32 pm Reviewed By: Vince Rodriguez DO Signed By: Vince Rodriguez DO Signed Date/Time: 12/29/19 5:32 pm Transcribed By: WONG Transcribed Date/Time: 12/29/19 5:30 pm Vital Signs Most recent to oldest [Reference Range]: 1 2 3 Oxygen Saturation [94-100 %] 97 % (12/30/19 12:15 AM) 96 % (12/29/19 11:08 PM) 100 % (12/29/19 6:52 PM) Pulse Rate [55-90 bpm] 98 bpm *H* (12/30/19 12:15 AM) 104 bpm *H* (12/29/19 11:08 PM) 97 bpm *H* (12/29/19 6:52 PM) Blood Pressure [90-138/55-84 mm Hg] 121/77mm Hg (12/30/19 12:15 AM) 118/72mm Hg (12/29/19 11:08 PM) 129/81mm Hg (12/29/19 6:52 PM) Respiratory Rate [16-30 br/min] 18 br/min (12/30/19 12:15 AM) 16 br/min (12/29/19 11:08 PM) 20 br/min (12/29/19 7:04 PM) Temperature [96.8-100.4 DegF] 97.6 DegF (12/29/19 5:48 PM) 97.4 DegF (12/29/19 12:22 PM) Mode of Delivery (Oxygen) Room air (12/30/19 12:15 AM) Room air (12/29/19 11:08 PM) Room air (12/29/19 6:52 PM) Blood pressure sites Arm, right (12/29/19 11:08 PM) Arm, left (12/29/19 6:52 PM) Arm, left (12/29/19 5:48 PM) Temperature Route Oral (12/29/19 5:48 PM) Oral (12/29/19 12:22 PM) Social History Social History Type Response Smoking Status Former smoker; Other : quit 35 years ago; entered on: 11/11/17 Sex Male
--- OUTSIDE RECORDS SUMMARY | 2023-11-09 00:42 | XMS_ITS | Continuity of Care Document ---
Author Organization [facility] Address [address] [place] [address]- Care Team Providers Care Hurl Shaker Name Role Phone Po Thania FALK Primary Care Physician Encounter [facility] [place] Date(s): 11/11/19 - 12/11/19 [facility] [address] [place] [address]- [facility] Allergies, Adverse Reactions, Alerts Substance Reaction Severity [...] right thumb by Fred Turk M.D. at [facility]. 3On 04/12/2015 underwent repining trapeziometacarpal joint reconstruction, right thumb status post revision trapeziometacarpal joint arthroplasty, right thumb, with loss of pin fixation by Fred Turk M.D. at [facility]. 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 at [facility]. 5On/about 04/09/17 underwent left hip replacement for left hip fracture by Jos Locke at [facility] 6On 11/13/19 underwent revision hemiarthroplasty with conversion to total hip arthroplasty for left hip femoral component aseptic loosening by Elijah Stover MD at [facility] 7Updated Oswestry Disability Index: 40% moderate disability and [place] Back Pain Disability Scale:27 on 10/08/18. 8Updated Oswestry Disability Index: 50% ( severe disability ) on 07/29/17; updated [place] Back Pain Disability Scale score: 52 on 07/29/17. 9Updated Oswestry Disability Index: 36% moderate disability and [place] Pain Disability Scale:24 on 08/25/2015. 10Initial [place] Pain Disability Scale: 27 on 03/12/2012; initial Oswestry Disability Index: 54%( severe disability ) on 03/12/2012. 11multiple surgeries--first in 1998 12ACE score 6 on 07/29/17 Social History Social History Type Response Smoking Status Former smoker; Other : quit 35 years ago; entered on: 11/11/17 Sex Male
--- OUTSIDE RECORDS SUMMARY | 2023-11-09 00:42 | XMS_ITS | Continuity of Care Document ---
Author Organization [facility] Address [address] [place] [address]- Care Team Providers Care Transmission Calibration Engineer Name Role Phone Po Thania FALK Primary Care Physician [phone] Encounter [facility] [place] Date(s): 06/20/20 - 07/20/20 [facility] [address] [place] [address] Allergies, Adverse Reactions, Alerts Substance Reaction [...] Pt can have partial fills on request [facility] [id number] #[id number], # 25 tablet, 0 Refills, Maintenance, 02/17/20 14:00:00 EDT, Tablet, [facility], 187, cm, 02/17/20 11:... [...] Maintenance, 02/17/20 13:50:00 EDT, Tablet, [facility], 187, cm, 02/17/20 11:58:00 EDT, Height, 102, kg, 02/12/20 12:29:00 EDT, Dry Weight Start Date: 02/17/20 Status: Ordered ergocalciferol 61205 iu oral capsule See Instructions, Start from [...] 14:34:00 EST Start Date: 03/03/20 Status: Ordered [place] 325 mg-5 mg oral tablet 1 tablet, By Mouth, Every 4 hours, PRN pain, MAX 6 tabs/day, # 168 tablet, 0 Refills, Maintenance, 07/19/20 15:38:00 EDT, Tablet, [facility], Partial fill upon patient request, [...] EDT, Route to Pharmacy Electronically, [facility], 187, cm, 02/17/20 11:58:00 EDT, Height, 102, kg, 02/12/20 12:29:00 EDT... Start Date: 02/17/20 Status: Ordered venlafaxine 150 mg oral capsule, extended release 150 mg, 1, capsule, By Mouth, Daily, # 30 capsule, Refills 0, Tot. Refills 0, Maintenance, 02/16/2013:50:00 EDT, Route to Pharmacy Electronically, [facility], 187, cm, 02/17/20 11:58:00 [...] right thumb by Fred Turk M.D. at [facility]. 3On 04/12/2015 underwent repining trapeziometacarpal joint reconstruction, right thumb status post revision trapeziometacarpal joint arthroplasty, right thumb, with loss of pin fixation by Fred Turk M.D. at [facility]. 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 at [facility]. 5On04/09/17 underwent left hip replacement for left hip fracture by Jos Locke at [facility] 6On 11/13/19 underwent revision hemiarthroplasty with conversion to total hip arthroplasty for left hip femoral component aseptic loosening by Elijah Stover MD at [facility] 7Updated Oswestry Disability Index: [...]
--- OUTSIDE RECORDS SUMMARY | 2023-11-09 00:42 | XMS_ITS | Continuity of Care Document ---
Author Organization [facility] Address [address] [place] [address]- Care Team Providers Care Relay Tester Helper Name Role Phone Po Thania FALK Primary Care Physician [place] [facility] [place]s): 05/04/20 - 06/03/20 [facility] [address] [place] [address] Allergies, Adverse Reactions, Alerts Substance Reaction [...] Pt can have partial fills on request REPLACED BY [facility] [id number] #[id number], # 25 tablet, 0 Refills, Maintenance, 02/17/20 14:00:00 EDT, Tablet, [facility], 187, cm, 02/17/20 11:... Start [...] Maintenance, 02/17/20 13:50:00 EDT, Tablet, [facility], 187, cm, 02/17/20 11:58:00 EDT, Height, 102, kg, 02/12/20 12:29:00 EDT, Dry Weight Start Date: 02/17/20 Status: Ordered ergocalciferol 84540 iu oral capsule See Instructions, Start from [...] 14:34:00 EST Start Date: 03/03/20 Status: Ordered [place] 325 mg-5 mg oral tablet 1 tablet, [...] right thumb by Fred Turk M.D. at [facility]. 3On 04/12/2015 underwent repining trapeziometacarpal joint reconstruction, right thumb status post revision trapeziometacarpal joint arthroplasty, right thumb, with loss of pin fixation by Fred Turk M.D. at [facility]. 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 at [facility]. 5On/about 04/09/17 underwent left hip replacement for left hip fracture by Jos Locke at [facility] 611/13/19 underwent revision hemiarthroplasty with conversion to total hip arthroplasty for left hip femoral component aseptic loosening by Elijah Stover MD at [facility] 7Updated Oswestry Disability Index: 47% (21/45; [...]
--- OUTSIDE RECORDS SUMMARY | 2023-11-09 00:42 | XMS_ITS | Continuity of Care Document ---
Author Organization [facility] Address [address] [place] [address]- Care Team Providers Care Carbon Furnace Operator Name Role Phone Po Thania FALK Primary Care Physician [phone] [place] [facility] [place] - 12/15/20 [facility] [address] [place] [address]- Allergies, Adverse Reactions, Alerts Substance Reaction Severity [...] can have partial fills on request [facility] [id number] #[id number], # 25 tablet, 0 Refills, Maintenance, 02/17/20 14:00:00 EDT, Tablet, [facility], 187, cm, 02/17/20 11:... Start Date: 02/17/20 Status: Ordered [place] 150 mcg buccal film See Instructions, [address] Every [address] film on inside of cheek and avoid food or drink untilcompletely dissolved, # 28 film, 0 Refills, Maintenance, 12/07/20 12:17:00 EDT, [facility], Partial fill upon patient request [...] Refills 0, Maintenance,Updated On: 07/28/2020 Pharmacy I: [facility] [place]: M54.4 mechanical low back pain, M53.3 [...] 02/17/20 13:50:00 EDT, Route to Pharmacy Electronically, [facility], 187, cm, 02/17/20 11:58:00 EDT, Height, 102, kg, 02/12/20 12:29:00 EDT... Start Date: 02/17/20 Status: Ordered venlafaxine 150 mg oral capsule, extended release 150 mg, 1, capsule, By Mouth, Daily, # 30 capsule, Refills 0, Tot. Refills 0, Maintenance, 02/16/2013:50:00 EDT, Route to Pharmacy Electronically, [facility], 187, cm, 02/17/20 11:58:00 EDT, [...] Turk M.D. at [facility]. 5On04/09/17 underwent left hip replacement for left hip fracture by Jos Locke at [facility] 6On 11/13/19 underwent revision hemiarthroplasty with conversion to total hip arthroplasty for left hip femoral component aseptic loosening by Elijah Stover MD at [facility] 7Updated Oswestry Disability Index: 47% (21/45; severe [...]
[2023-11-09 01:00] LABS: MANUAL DIFF FLAG NO
[2023-11-09 01:04] LABS: Basophils Absolute Auto 0.1 X10*3/uL (0.0-0.2); Basophils Percent Auto 0.7 % (0-2); Eosinophils Absolute Auto 0.1 X10*3/uL (0.0-0.4); Eosinophils Percent Auto 0.5 % (0-4); Hematocrit 31.1 % (42.0-52.0); Hemoglobin 9.7 g/dl (14.0-18.0); Imm Gran Abs Auto 0.07 X10*3/uL (0.00-0.03); Imm Gran Pct Auto 0.5 % (0.0-0.4); Lymphocytes Absolute Auto 2.5 X10*3/uL (1.2-4.9); Lymphocytes Percent Auto 18.7 % (20-40); Mean Corpuscular HGB Conc 31.2 g/dl (31.0-36.0); Mean Corpuscular Hemoglobin 24.3 pg (27.0-33.0); Mean Corpuscular Volume 77.8 fL (80.0-98.0); Mean Platelet Volume 10.5 fL (9.4-12.4); Monocytes Absolute Auto 1.4 X10*3/uL (0.1-1.2); Monocytes Percent Auto 10.8 % (2-11); Neutrophils Absolute Auto 9.1 x10*3/uL (2.0-8.3); Neutrophils Percent Auto 68.8 % (45-73); Platelet Count 299 X10*3/uL (160-400); Red Cell Distribution Width 16.6 % (11.0-16.0); White Blood Count 13.2 X10*3/uL (4.8-10.8)
[2023-11-09 01:09] LABS: INTERNATIONAL NORM RATIO 1.1 (0.9-1.1); Prothrombin Time 13.2 SEC (11.1-13.3)
[2023-11-09 01:18] LABS: COVID-19 Test Negative (Negative); IDNOW Serial# 08D9AD1C
[2023-11-09 01:22] LABS: Ethanol < 10 mg/dL
[2023-11-09 01:25] LABS: Troponin-I High Sensitivity 5.8 ng/L (<3.5-35.0)
[2023-11-09 01:35] LABS: Alanine Aminotransferase 14 U/L (0-40); Albumin Level 3.8 g/dL (3.5-5.0); Alkaline Phosphatase 86 U/L (39-117); Anion Gap 15 (12-20); Aspartate Amino Transferase 27 U/L (5-37); Bilirubin Direct 0.2 mg/dL (0.0-0.5); Bilirubin Total 0.5 mg/dL (0.0-1.0); Blood Urea Nitrogen 21 mg/dL (9-16); Carbon Dioxide 19 mmol/L (22-29); Chloride 105 mmol/L (96-108); Creatinine Clr Calc Pharmacy 88.5; Estimated Glomerular Filt Rate > 60; Glucose Random 99 mg/dL (60-115); Potassium 3.4 mmol/L (3.3-5.1); Sodium 136 mmol/L (135-145); Total Protein 6.7 g/dL (6.5-8.0)
[2023-11-09] MEDS: OLANZapine 10 MG VIAL IM (01:49)
[2023-11-09] MEDS: LORazepam 2 MG/ML VIAL IVPUSH (01:49)
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
[2023-11-09] MEDS: Metoprolol Tartrate 5 MG/5 ML VIAL 2.5 MG IVPUSH (03:02)
[2023-11-09] MEDS: Acetaminophen 325 MG TABLET 650 MG PO ×2 (03:03→18:00)
[2023-11-09 03:08] VITALS: BP 123/88; PULSE 122; RESP 17; O2SAT 95
[2023-11-09 03:23] LABS: Appearance Urine Clear; Color Urine Yellow; Glucose Urine UA Negative (Negative); Leukocyte Esterase Urine Negative (Negative); Nitrite Urine Negative (Negative); Urine Blood Negative (Negative); Urine Ketones 15 mg/dL (Negative); Urine Protein Negative (Neg-Trace)
[2023-11-09 03:32] LABS: Amphetamine Screen Urine Not Detected (Not Detect); Barbiturates, Urine Not Detected (Not Detect); Benzodiazepines Screen Urine Not Detected (Not Detect); Buprenorphine Scr Not Detected (Not Detect); Cannabinoid Screen Urine Not Detected (Not Detect); Cocaine Screen Urine Not Detected (Not Detect); Fentanyl, urine POSITIVE (Not Detect); Methadone Screen, Urine Not Detected (Not Detect); Opiate Screen Urine Not Detected (Not Detect); Oxycodone Screen Urine Not Detected (Not Detect); Phencyclidine Screen Urine Not Detected (Not Detect)
[2023-11-09] MEDS: Ziprasidone Mesylate 20 MG VIAL IM (03:44)
[2023-11-09 06:00] VITALS: BP 132/95; PULSE 105; RESP 20; TEMP 36.6; O2SAT 94
--- NOTE | 2023-11-09 10:56 | PC.NURSE ---
obtained report from jose metzger sent from main ed to overflow. pt currently sleeping, lungs diminished- respirations equal and non labored, condom cath patient/draining, lt fa access intact, will contact provider for diet order. call mcknight within reach, will continue to monitor.
--- NOTE | 2023-11-09 12:33 | MHC.CM.PN ---
Addendum entered by Jana Arguelles RN 11/09/23 13:42: CM CONTACTED PT'S FRIEND/PRIMARY CONTACT YUMIKO AT [employer]N FILE, YUMIKO REPORTS [facility], USES A WALKER/WC HOWEVER PRIMARILY USES WC, HAS AT LEAST ONE MEAL PROVIDED A DAY, HAS SOMEONE FOR CLEANING HOWEVER DOES NOT THINK PT IS UTILIZING ANY OTHER SERVICES, PT DID HAVE A NURSE COMING IN HOWEVER YUMIKO IS UNSURE IF IT IS THROUGH A VNA, YUMIKO REPORTS HE SPOKE TO PT YESTERDAY WHO WAS COMPLAINING OF WEAKNESS AND UNSURE IF IT IS DUE TO NEW MEDS PRESCRIBED BY DR. RENO AND IS REFERRING TO MEDS FOR PT'S ANXIETY/DEPRESSION. YUMIKO REPORTS PT DOES NOT HAVE/WANT CONTACT WW/EXWIFE AND HIS DTR, HOWEVER THEY ARE AWARE OF PT'S ADDRESS AND EXWIFE IS AWARE PT IS DECLINING. YUMIKO REPORTS HE IS NOT SURE PT IS ABLE TO CARE FOR HIMSELF INDEPENDENTLY HOWEVER INSISTS ON DOING THINGS FOR HIMSELF, YUMIKO REPORTS HE WILL PROVIDE TRANSPORT FOR PT ONCE HE IS ABLE TO DC. P.T. EVAL PENDING AT TIME OF THIS NOTE, CM Original Note: CM RECEIVED CM CONSULT ED PROVIDER GAVIN CHAVARRIA, NISA ATTEMPTED TO MEET W/PT IN ED OVER HOWEVER CM UNABLE TO AWAKEN PT D/T MEDICATION RECEIVED OVERNIGHT, CM WILL FOLLOW-UP W/PRIMARY CONTACT. PT EVAL PENDING.
[2023-11-09 14:24] VITALS: BP 154/79; PULSE 80; RESP 18; O2SAT 97
--- NOTE | 2023-11-09 15:43 | PHA.MEDREC ---
Pharmacy Consult ? Medication Reconciliation Pharmacy has completed the medication reconciliation. Pt poor historian. Called Yg (HCP) twice but they never picked up. Called patient's pharmacy and spoke OTP with the pharmacist to complete med rec.
[2023-11-09] MEDS: Lidocaine 4 % Patch ADH..PATCH 1 PATCH TRANSDERMA (17:41)
--- NOTE | 2023-11-09 18:13 | PC.NURSE ---
condom cath fell off, pt currently incontinent, full bed change performed, pt turned/positioned to comfort, pt yelling out, stated he was in pain 5/10 back pain, provider notified- pt medicated with tylenol and lido patch to the back, pt was unable to feed himself, this nurse fed patient he ate 90% of his dinner. call mcknight within reach, will continue to monitor
[2023-11-09 21:04] VITALS: BP 154/74; PULSE 89; RESP 16; TEMP 36.3; O2SAT 96
[2023-11-10] MEDS: Acetaminophen 325 MG TABLET 650 MG PO ×2 (05:04→13:01)
[2023-11-10 06:05] VITALS: BP 140/86; PULSE 78; RESP 16; O2SAT 95
[2023-11-10] MEDS: traMADoL HCL 50 MG TABLET PO (06:06)
--- NOTE | 2023-11-10 06:13 | PC.NURSE ---
Patient repositioned to comfort, pt brianda, stated he has 8/10 back pain medicated with Tylenol @0500 no effect, provider notified- Tramadol 50mg once ordered and administered @0607 effect pending.
[2023-11-10] MEDS: amLODIPine Besylate 2.5 MG TABLET PO (08:35)
[2023-11-10] MEDS: Venlafaxine HCl ER 150 MG CAP.ER.24H PO (08:36)
[2023-11-10] MEDS: Metoprolol Tartrate 25 MG TABLET PO ×2 (08:36→20:26)
[2023-11-10] MEDS: Venlafaxine HCl ER 37.5 MG CAP.ER.24H PO (08:36)
[2023-11-10] MEDS: oxyCODONE HCl Immed Release 5 MG TABLET PO (08:36)
[2023-11-10] MEDS: Tamsulosin HCL 0.4 MG CAPSULE PO ×2 (08:36→20:26)
[2023-11-10] MEDS: Divalproex Sodium 500 MG TABLET.DR PO ×2 (08:36→20:26)
[2023-11-10] MEDS: Apixaban 2.5 MG TABLET PO ×2 (08:36→20:26)
--- NOTE | 2023-11-10 09:08 | MHC.EDTECH ---
Patient cleaned up, new gown, patient ate about 80% of breakfast, [place] catheter changed and emptied 550 mL.
--- NOTE | 2023-11-10 15:10 | MHC.CM.PN ---
CM MET W/PT WHO IS PLEASANT HOWEVER DOES NOT ANSWER ALL QUESTIONS CORRECTLY, PT WOULD LIKE PT EVAL AND REPORTS HE HAS HAD PT AT HOME W/[facility] (HOWEVER PT COULD NOT QUITE NAME [facility]), REFERRAL UPDATED, CM WILL CONT TO FOLLOW.
[2023-11-10 16:46] VITALS: BP 104/75; PULSE 70; RESP 16; TEMP 36.9; O2SAT 93
--- NOTE | 2023-11-10 18:12 | PC.NURSE ---
pt transferred from overflow to room 14 for hospital convenience, this nurse assumed care at 1810, pt alert to person and aware he is at a hospital but is unsure where. lungs diminished/clear, respiratory rate equal/non labored. pt denies pain/discomfort, fall precautions placed- bed alarm intact- camera added for additional precautions, call mcknight within reach, will continue to monitor
[2023-11-10 18:17] VITALS: BP 120/67; PULSE 91; RESP 19; TEMP 36.7; O2SAT 98
[2023-11-10] MEDS: Melatonin 3 MG TABLET 6 MG PO (22:28)
--- NOTE | 2023-11-10 22:30 | PC.NURSE ---
pt given melatonin per request
--- NOTE | 2023-11-10 23:37 | PC.NURSE ---
This lyric writer assumed care of this Pt at 2300. Pt laying in bed, requesting cell phone to be put in safe. Locked up envelop #[id number].
--- NOTE | 2023-11-11 05:32 | PC.NURSE ---
Pt appears to be sleeping, equal, non labored respirations. Plan of care ongoing.
[2023-11-11 05:38] VITALS: BP 131/66; PULSE 69; RESP 16; TEMP 36.4; O2SAT 93
[2023-11-11] MEDS: Omeprazole 20 MG CAPSULE.DR PO (05:39)
[2023-11-11 08:34] VITALS: BP 116/75
[2023-11-11] MEDS: Venlafaxine HCl ER 150 MG CAP.ER.24H PO (08:34)
[2023-11-11] MEDS: Venlafaxine HCl ER 37.5 MG CAP.ER.24H PO (08:34)
[2023-11-11] MEDS: amLODIPine Besylate 2.5 MG TABLET PO (08:34)
[2023-11-11] MEDS: Apixaban 2.5 MG TABLET PO ×2 (08:34→20:27)
[2023-11-11 08:35] VITALS: PULSE 65
[2023-11-11] MEDS: Metoprolol Tartrate 25 MG TABLET PO ×2 (08:35→20:25)
[2023-11-11 10:24] VITALS: PULSE 65
--- NOTE | 2023-11-11 11:14 | MHC.CM.ED ---
Addendum entered by Ingrid Fernandez 11/11/23 13:38: Patient made aware by T/W that psych consult is pending due to aggression. Patient denies any aggression upon arrival to ER. Patient requesting to speak to provider. Caity JOSHUA aware. Original Note: Patient remains in ER overflow. Physical therapy eval completed. Short tern rehab recommended. Psych consult is still pending. Patient is active with [facility]. Waiting for psych consult in order to complete discharge planning. Continue to monitor for d/c needs.
[2023-11-11] MEDS: OLANZapine 2.5 MG TABLET PO (11:15)
[2023-11-11 13:41] VITALS: BP 122/61; PULSE 61; RESP 20; TEMP 36.6; O2SAT 97
[2023-11-11 16:36] LABS: Ammonia 21 umol/L (13-55)
[2023-11-11 16:52] LABS: Valproate 55.5 mcg/mL (50.0-100.0)
[2023-11-11 20:25] VITALS: PULSE 74
[2023-11-11] MEDS: oxyCODONE HCl Immed Release 5 MG TABLET PO (20:25)
[2023-11-11] MEDS: LORazepam 1 MG TABLET PO (20:25)
[2023-11-11] MEDS: Tamsulosin HCL 0.4 MG CAPSULE PO (20:25)
[2023-11-11] MEDS: Acetaminophen 325 MG TABLET 650 MG PO (20:26)
[2023-11-11] MEDS: Divalproex Sodium 500 MG TABLET.DR PO (20:27)
[2023-11-12] VITALS (7 sets, daily range): BP systolic 85–132; BP diastolic 61–93; PULSE 68–89; RESP 18; TEMP 36.6–36.8; O2SAT 94
[2023-11-12] MEDS: Acetaminophen 325 MG TABLET 650 MG PO ×3 (02:23→16:17)
--- NOTE | 2023-11-12 04:40 | PC.NURSE ---
[id number]; patient alert to self, place, time. Complains of left hip pain, medicated with prn tylenol per mar with good effect. Assisted patient with urinal multiple times. Warm blanket provided, call mcknight within reach.
[2023-11-12] MEDS: oxyCODONE HCl Immed Release 5 MG TABLET PO ×2 (05:30→14:46)
[2023-11-12] MEDS: Omeprazole 20 MG CAPSULE.DR PO (05:30)
[2023-11-12] MEDS: Apixaban 2.5 MG TABLET PO ×2 (08:17→20:01)
[2023-11-12] MEDS: LORazepam 1 MG TABLET PO ×2 (08:17→20:01)
[2023-11-12] MEDS: Venlafaxine HCl ER 150 MG CAP.ER.24H PO (09:32)
[2023-11-12] MEDS: Venlafaxine HCl ER 37.5 MG CAP.ER.24H PO (09:32)
--- NOTE | 2023-11-12 11:01 | P.CNPS_ITS ---
History of Present Illness Date of Service: 11/11 Chief Complaint: fall, +thinners Requesting physician: Caity Ferrari Discussed with referring provider: Yes Sources of Information: patient interviewed, chart reviewed and crisis/core team assessment reviewed Additional Sources of Information: Psychiatric consult 10/01/2023 HPI Narrative: Patient is a 78-year-old male with history of multiple medical comorbidities who presents after a fall at home, similar to presentation last month. Patient had some agitation on arrival and psychiatry consulted to help recommend medications to treat agitation. On 11/10, headline writer Discussed case with Caity Ferrari after chart review and recommended restarting patient on his scheduled Ativan 1 mg b.i.d. (and his extra 1 mg daily p.r.n.); and Zyprexa 2.5 mg BID (and extra 2.5mg bid p.r.n. for agitation) both of which appear to be his home medications which he was getting last time he was in the ED. Also recommended obtaining Depakote and ammonia level to see if contributory. On 11/11 headline writer met with patient who was pleasant, calm and cooperative. He knows his name; when asked where he was he started talking about his tennis shoes however. Patient shared about how he was in rehab for a while after last fall which is true. Coiled Tubing Supervisor discussed patient with nurse who reports she was told patient was calm the day before he arrived overflow and has remained calm overnight and today, without problematic behavioral issues; once he started getting out of the bed unnecessarily but was easily redirectable. Medical Evaluation Reviewed: Yes [facility] Medical History (Updated 11/11/23 @ 07:50 by Callie Feng) Incisional hernia Premature atrial complexes Shortness of breath Rash Asthma exacerbation Leukocytosis Serum potassium elevated Low vitamin D level Headache Fatigue Moderate recurrent major depression Hospital discharge follow-up Chest tightness Dyspnea on exertion Allergic bronchitis Generalized anxiety disorder Tinea cruris SOB (shortness of breath) on exertion Constipation Atrial fibrillation Knee fracture, left Wedge compression fracture of L1 vertebra Prostate cancer Iron deficiency anemia Obstructive sleep apnea Vitamin D deficiency Diverticular disease Obesity (BMI 30-39.9) Peptic ulcer disease Degenerative disc disease GERD (gastroesophageal reflux disease) Anxiety and depression Vitamin B12 deficiency Gout Hypertension Fatigue Dysuria Surgical History (System 11/11/23 @ 07:50 by Callie Feng) History of colonoscopy History of hemiarthroplasty of left hip H/O rectal polypectomy History of knee replacement procedure of left knee H/O hernia repair History of pyloroplasty History of bowel resection History of cholecystectomy Diagnostics Vital Signs (24Hr): Vital Signs - 24 hr 11/11/23 13:41 11/11/23 20:25 11/12/23 04:51 Temperature 97.8 F 98.2 F Pulse Rate 61 74 68 Respiratory Rate 20 18 Blood Pressure 122/61 122/71 Pulse Oximetry 97 94 Oxygen Delivery Method Room Air Room Air 11/12/23 08:16 Temperature Pulse Rate Respiratory Rate Blood Pressure 85/67 L Pulse Oximetry Oxygen Delivery Method BMI result Body Mass Index 31.0 Labs 11/09/23 00:51 11/09/23 00:51 Labs: Laboratory Results - last 48 hr 11/11/23 16:22 Ammonia 21 Valproic Acid 55.5 Imaging Radiology Impressions: ITS Impressions Chest X-Ray 11/09/23 01:05 IMPRESSION: Low lung volumes. Lower lung field increased markings which could represent atelectasis or vascular crowding secondary to low lung volumes. No other significant abnormality seen. Cervical Spine CT 11/09/23 01:44 IMPRESSION: 1. No acute intracranial process seen. 2. Age-related cerebral volume loss with chronic small vessel ischemic changes. 3. No acute cervical spine process seen. Head CT 11/09/23 01:44 IMPRESSION: 1. No acute intracranial process seen. 2. Age-related cerebral volume loss with chronic small vessel ischemic changes. 3. No acute cervical spine process seen. Medications Medications Current Medications Acetaminophen (Acetaminophen 325 Mg Tablet) 650 mg PO Q6H PRN PRN Reason: Pain, Moderate(Pain Scale 4-6) Last Admin: 11/12/23 09:32 Dose: 650 mg Amlodipine Besylate (Amlodipine Besylate 2.5 Mg Tablet) 2.5 mg PO DAILY MAGALIS; Protocol Last Admin: 11/12/23 08:16 Dose: Not Given Apixaban (Apixaban 2.5 Mg Tablet) 2.5 mg PO BID [facility] Last Admin: 11/12/23 08:17 Dose: 2.5 mg Divalproex Sodium (Divalproex Sodium 500 Mg Tablet.Dr) 500 mg PO BEDTIME [facility] Last Admin: 11/11/23 20:27 Dose: 500 mg Lidocaine (Lidocaine 4 % Patch Adh..Patch) 1 patch TRANSDERMA DAILY PRN; Protocol PRN Reason: Pain, Moderate(Pain Scale 4-6) Last Admin: 11/09/23 17:41 Dose: 1 patch Lorazepam (Lorazepam 1 Mg Tablet) 1 mg PO BID PRN PRN Reason: Anxiety Last Admin: 11/12/23 08:17 Dose: 1 mg Metoprolol Tartrate (Metoprolol Tartrate 25 Mg Tablet) 25 mg PO BID [facility]; Protocol Last Admin: 11/11/23 20:25 Dose: 25 mg Omeprazole (Omeprazole 20 Mg Capsule.Dr) 20 mg PO DAILY@0630 [facility] Last Admin: 11/12/23 05:30 Dose: 20 mg Oxycodone HCl (Oxycodone Hcl Immed Release 5 Mg Tablet) 5 mg PO Q8H PRN PRN Reason: moderate pain Last Admin: 11/12/23 05:30 Dose: 5 mg Tamsulosin HCl (Tamsulosin Hcl 0.4 Mg Capsule) 0.4 mg PO BEDTIME [facility] Last Admin: 11/11/23 20:25 Dose: 0.4 mg Venlafaxine HCl (Venlafaxine Hcl Er 150 Mg Cap.Er.24h) 150 mg PO DAILY [facility] Last Admin: 11/12/23 09:32 Dose: 150 mg Venlafaxine HCl (Venlafaxine Hcl Er 37.5 Mg Cap.Er.24h) 37.5 mg PO DAILY [facility] Last Admin: 11/12/23 09:32 Dose: 37.5 mg Allergies Allergies Allergy/AdvReac Type Severity Reaction Status Date / Time carisoprodol [From Soma] Allergy Mild MENTAL Verified 11/11/23 07:50 STATUS CHANGE, BECOMES AGGRESIVE codeine [Codeine] Allergy Mild STOMACH Verified 11/11/23 07:50 UPSET, RASH gabapentin AdvReac Intermediate lousy Verified 11/11/23 07:50 feeling Assessment & Plan Assessment & Plan (1) Cognitive impairment: Status: Acute Code(s): R41.89 - Other symptoms and signs involving cognitive functions and awareness Plan Patient is a 78-year-old male with history of multiple medical comorbidities who presents after a fall at home, similar to presentation last month. Patient had some agitation on arrival and psychiatry consulted to help recommend medications to treat agitation. On 11/10, headline writer Discussed case with Caity Ferrari after chart review and recommended restarting patient on his scheduled Ativan 1 mg b.i.d. (and his extra 1 mg daily p.r.n.); and Zyprexa 2.5 mg BID (and extra 2.5mg bid p.r.n. for agitation) both of which appear to be his home medications which he was getting last time he was in the ED. Also recommended obtaining Depakote and ammonia level to see if contributory. On 11/11 headline writer met with patient who was pleasant, calm and cooperative. He knows his name; when asked where he was he started talking about his tennis shoes however. Patient shared about how he was in rehab for a while after last fall which is true. Coiled Tubing Supervisor discussed patient with nurse who reports she was told patient was calm the day before he arrived overflow and has remained calm overnight and today, without problematic behavioral issues; once he started getting out of the bed unnecessarily but was easily redirectable. Impression/plan: Patient presents calm and cooperative; per staff he has not had any behavioral problems yesterday overnight or today. It seems that having restarted his scheduled Ativan and Zyprexa has thus far been sufficient to quell agitated behavior. -continue medication regimen -Depakote and ammonia level WNL and not contributory -was fentanyl positive however this is screening tool and may be false positive It seems at this time patient has returned to baseline and current medication regimen is adequate for helping him remain in behavioral control. Will sign off at this time; primary treatment team to re-consult as needed. Total time managing care of this patient today ____ minutes. Patient educated on: diagnosis, medication risk/benefits and medical condition Informed Consent: understands, does not understand and further education needed
[2023-11-12] MEDS: OLANZapine 2.5 MG TABLET PO ×2 (12:42→20:01)
--- NOTE | 2023-11-12 13:30 | PC.NURSE ---
Assumed care for pt @700. Pt Alert and oriented to self. Pt believes that [place] is [place] the fire[place] and he is waiting for his shift to start .Very restless and irritated throughout the day. Pt had cellphone at bedside and cont to try calling his healthcare proxy Yg to come pick him up for work . This RN spoke with pt Healthcare Proxy Yg who stated the pt has becoming more confused the past few weeks and voiced his concern about the pt not being able to go back home to his current living situation and hoping he gets into a facility with more services.
[2023-11-12] MEDS: Lidocaine 4 % Patch ADH..PATCH 1 PATCH TRANSDERMA (14:47)
[2023-11-12] MEDS: Tamsulosin HCL 0.4 MG CAPSULE PO (20:00)
[2023-11-12] MEDS: OLANZapine 10 MG VIAL IM (20:31)
[2023-11-12] MEDS: Ziprasidone Mesylate 20 MG VIAL IM (22:21)
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
[2023-11-13 05:20] VITALS: BP 97/75; PULSE 84; RESP 18; TEMP 36.1; O2SAT 93
--- NOTE | 2023-11-13 09:00 | MHC.CM.ED ---
Addendum entered by Ingrid Fernandez 11/13/23 09:03: Attempted to update friend/HCP, Yg, in regards to discharge planning via telephone at [phone]. Left voicemail requesting return telephone call. Original Note: Patient remains in ER. Cleared by Psych. Physical therapy eval rec STR. Patient agreeable at this time. However, he received IM Zypexa at night. STR will not be able to be secured for 24-48 hours. Continue to monitor for d/c needs.
[2023-11-13] MEDS: amLODIPine Besylate 2.5 MG TABLET PO (09:51)
[2023-11-13] MEDS: OLANZapine 2.5 MG TABLET PO ×2 (09:51→20:11)
[2023-11-13] MEDS: Apixaban 2.5 MG TABLET PO ×2 (09:51→20:10)
[2023-11-13] MEDS: Venlafaxine HCl ER 37.5 MG CAP.ER.24H PO (09:51)
[2023-11-13] MEDS: Venlafaxine HCl ER 150 MG CAP.ER.24H PO (09:51)
[2023-11-13] MEDS: Metoprolol Tartrate 25 MG TABLET PO ×2 (09:51→20:11)
[2023-11-13] MEDS: oxyCODONE HCl Immed Release 5 MG TABLET PO ×2 (13:36→18:59)
[2023-11-13 15:32] VITALS: BP 91/51; PULSE 70; RESP 18; TEMP 36.8; O2SAT 96
--- NOTE | 2023-11-13 16:02 | PC.NURSE ---
Patient alert and oriented. Woke up from nap and stated his toe is broken. Bilateral shagufta swollen and without obvious deformity. Patient admits hx of gout but states this pain is much worse. Patient has not been oob this shift and denies any known trauma fro today but states he does not remember what he did yesterday. PA aware
[2023-11-13] MEDS: Acetaminophen 325 MG TABLET 650 MG PO (17:26)
--- NOTE | 2023-11-13 17:36 | PC.NURSE ---
medicated for complaints of right great toe pain, x ray results pending
--- NOTE | 2023-11-13 18:44 | PC.NURSE ---
Patient continues to report pain in right great toe , message sent to provider, hot packs placed on toe with some relief
[2023-11-13] MEDS: predniSONE 20 MG TABLET 60 MG PO (19:00)
[2023-11-13] MEDS: Divalproex Sodium 500 MG TABLET.DR PO (20:10)
[2023-11-13] MEDS: Tamsulosin HCL 0.4 MG CAPSULE PO (20:13)
--- NOTE | 2023-11-13 21:50 | PC.NURSE ---
pt resting quietly, in bed, with eyes closed, resp with ease, will cont to monitor
[2023-11-13 22:00] VITALS: BP 96/61; PULSE 64; RESP 16; O2SAT 94
[2023-11-14] MEDS: oxyCODONE HCl Immed Release 5 MG TABLET PO ×2 (02:47→18:04)
[2023-11-14] MEDS: Omeprazole 20 MG CAPSULE.DR PO (05:37)
[2023-11-14 05:50] VITALS: BP 108/58; PULSE 62; RESP 16; TEMP 36.6; O2SAT 92
--- NOTE | 2023-11-14 08:43 | PC.NURSE ---
called pharmacy for missing medications
--- NOTE | 2023-11-14 09:14 | MHC.CM.ED ---
Addendum entered by Ingrid Fernandez 11/14/23 12:59: Wendy from [place] on-site to visit patient. Patient requesting to go to [facility]. Waiting to hear from [facility] to see if they have a bed. Patient has decided he wants to return home with resumption of services through [facility]. [facility] made aware. Patient is trying to get in contact with his friend, Yg, to make sure he has the keys for his apartment. Original Note: Patient remains in ER overflow. No behaviors since medication regimen restarted. PT rec STR. Referral broadcasted at this time. Continue to monitor for d/c needs.
[2023-11-14 09:16] VITALS: BP 108/58; PULSE 62
[2023-11-14] MEDS: Metoprolol Tartrate 25 MG TABLET PO ×2 (09:16→20:34)
[2023-11-14] MEDS: Apixaban 2.5 MG TABLET PO ×2 (09:16→20:29)
[2023-11-14] MEDS: amLODIPine Besylate 2.5 MG TABLET PO (09:16)
[2023-11-14] MEDS: Venlafaxine HCl ER 37.5 MG CAP.ER.24H PO (09:17)
[2023-11-14] MEDS: OLANZapine 2.5 MG TABLET PO ×2 (09:17→20:29)
[2023-11-14] MEDS: Venlafaxine HCl ER 150 MG CAP.ER.24H PO (09:17)
--- NOTE | 2023-11-14 09:19 | PC.NURSE ---
pt is a&ox3, pt stated i dunno what happened to me to get me here, I dont remember the last few days pt currently speaking in full sentences and carrying on a lengthy conversation about politics and the presidential candidates, he is fully aware of his surroundings, lungs clear, respirations equal/non labored, pt ate 100% of his breakfast, medicated with pills whole with juice, fall precautions intact, bed alarm intact/pt camera intact for additional safety, call mcknight within reach, will continue to monitor
[2023-11-14] MEDS: LORazepam 1 MG TABLET PO (12:52)
--- NOTE | 2023-11-14 12:55 | PC.NURSE ---
pt upset about discharge to short term rehab and wanting to discharge home with PT at home. this nurse spoke with case management who stated she could set this up for him at this point but needs to ensure he could get into his apartment. upon speaking with the patient, he stated a friend was holding onto his keys and the phone number for the person is on his cell phone which currently is uncharged and he has no plug to recharge. this nurse spoke with charge nurse who is sending somebody to take the phone and charge it at the secretaries desk for the patient. we will obtain a phone number as soon as possible and pass this info back to case mangement to ensure safe discharge back to home.
[2023-11-14 13:53] VITALS: BP 115/72; PULSE 74; RESP 18; TEMP 36.7; O2SAT 99
--- NOTE | 2023-11-14 15:35 | MHC.CM.ED ---
Met with patient and friend, Yg in regards to discharge planning. Yg brought patient's hearing aides into ER. Patient is able to participate in conversation. Patient is agreeable to STR. [facility] is 1st choice. Patient agrees he is too weak to go home at this time. Continue to monitor for d/c needs.
--- NOTE | 2023-11-14 18:06 | PC.NURSE ---
pt c/o 12/06 lt hip pain, pt medicated for pain per order
[2023-11-14] MEDS: Fluticasone Propionate Nasal 16 GM SPRAY 1 SPRAY NOSTRIL-B (20:28)
[2023-11-14] MEDS: Melatonin 3 MG TABLET 9 MG PO (20:28)
[2023-11-14] MEDS: Divalproex Sodium 500 MG TABLET.DR PO (20:28)
[2023-11-14] MEDS: Tamsulosin HCL 0.4 MG CAPSULE PO (20:28)
[2023-11-14 20:34] VITALS: BP 123/69; PULSE 68
[2023-11-15] MEDS: Acetaminophen 325 MG TABLET 650 MG PO ×2 (00:31→22:34)
--- NOTE | 2023-11-15 00:33 | PC.NURSE ---
Pt reporting increased left hip pain. Medicated as per JUN. Pt tolerated well.
[2023-11-15 05:55] VITALS: BP 115/62; PULSE 58; RESP 18; TEMP 36.7; O2SAT 97
[2023-11-15] MEDS: Venlafaxine HCl ER 150 MG CAP.ER.24H PO (10:22)
[2023-11-15 10:23] VITALS: BP 140/70; PULSE 78
[2023-11-15] MEDS: Venlafaxine HCl ER 37.5 MG CAP.ER.24H PO (10:23)
[2023-11-15] MEDS: amLODIPine Besylate 2.5 MG TABLET PO (10:23)
[2023-11-15] MEDS: Metoprolol Tartrate 25 MG TABLET PO ×2 (10:23→20:54)
[2023-11-15] MEDS: Omeprazole 20 MG CAPSULE.DR PO (10:23)
[2023-11-15] MEDS: Apixaban 2.5 MG TABLET PO ×2 (10:23→20:54)
[2023-11-15] MEDS: Loratadine 10 MG TABLET PO (10:24)
[2023-11-15] MEDS: OLANZapine 2.5 MG TABLET PO ×2 (10:24→20:54)
[2023-11-15] MEDS: Fluticasone Propionate Nasal 16 GM SPRAY 1 SPRAY NOSTRIL-B (10:24)
--- NOTE | 2023-11-15 11:04 | MHC.CM.ED ---
Addendum entered by Ingrid Fernandez 11/15/23 15:43: Will need [facility] leveling before being able to transfer to [facility]. Anticipate patient will be here until Saturday. Addendum entered by Ingrid Fernandez 11/15/23 14:29: [facility] PASRR Level 2 obtained. MDS completed. Waiting to hear from [facility] if they can accept patient before faxing to [facility]. Original Note: Patient remains in ER overflow. Clinical updates faxed to [facility]. [facility] PASRR Level 2 submitted. Continue to monitor for d/c needs.
[2023-11-15] MEDS: LORazepam 1 MG TABLET PO (15:43)
[2023-11-15] MEDS: polyethylene glycoL 3350 17 GM POWD.PACK PO (15:44)
[2023-11-15 15:50] VITALS: BP 125/73; PULSE 56; RESP 18; TEMP 36.5; O2SAT 96
[2023-11-15 16:43] VITALS: BP 125/73; PULSE 56; RESP 18
[2023-11-15 20:47] VITALS: BP 139/72; PULSE 60; RESP 16; TEMP 36.6; O2SAT 98
[2023-11-15] MEDS: Melatonin 3 MG TABLET 9 MG PO (20:54)
[2023-11-15] MEDS: Tamsulosin HCL 0.4 MG CAPSULE PO (20:54)
[2023-11-15] MEDS: Divalproex Sodium 500 MG TABLET.DR PO (22:04)
--- NOTE | 2023-11-16 00:13 | MHC.EDTECH ---
late entry: 11/15/23 @ 1115: This tech ambulated with Pt with a walker to the bathroom for a BM. This tech walked with Pt back to room and Pt was able to get himself back in bed. Bed alarm on and call mcknight within reach.
--- NOTE | 2023-11-16 00:47 | MHC.EDTECH ---
Pt had BM in bed. Tech and RN cleaned Pt, repositioned, call mcknight within reach.
[2023-11-16] MEDS: LORazepam 1 MG TABLET PO (01:30)
--- NOTE | 2023-11-16 03:44 | MHC.EDTECH ---
Pt assisted to commode for BM. This tech helped Pt clean up, new hospital gown put on and Pt got himself back into bed. Call mcknight within reach.
[2023-11-16 06:06] VITALS: BP 142/65; PULSE 80; RESP 19; TEMP 36.6; O2SAT 96
--- NOTE | 2023-11-16 06:41 | MHC.EDTECH ---
400ml of urine emptied from Pts urinal.
--- NOTE | 2023-11-16 08:23 | MHC.CM.ED ---
Review of EMR and ED CM notes: message sent to [facility] inquiring on MH leveling. Will await response. ? transfer
[2023-11-16] MEDS: amLODIPine Besylate 2.5 MG TABLET PO (09:43)
[2023-11-16] MEDS: Apixaban 2.5 MG TABLET PO ×2 (09:43→21:06)
[2023-11-16] MEDS: Loratadine 10 MG TABLET PO (09:43)
[2023-11-16] MEDS: OLANZapine 2.5 MG TABLET PO ×2 (09:43→21:06)
[2023-11-16] MEDS: Metoprolol Tartrate 25 MG TABLET PO ×2 (09:43→21:06)
[2023-11-16] MEDS: Venlafaxine HCl ER 150 MG CAP.ER.24H PO (09:48)
[2023-11-16] MEDS: Venlafaxine HCl ER 37.5 MG CAP.ER.24H PO (09:48)
--- NOTE | 2023-11-16 10:02 | MHC.EDTECH ---
This morning dewey ate his breakfast and his bedding was freshened up
[2023-11-16 14:53] VITALS: BP 125/67; PULSE 61; RESP 18; TEMP 36.6; O2SAT 99
--- NOTE | 2023-11-16 16:01 | MHC.EDTECH ---
This pct assumed care of patient at 1500 ,Patient awake watching television ,no apparent distress noted ,Plan of care continue .
[2023-11-16 16:38] VITALS: BP 134/87; PULSE 63; RESP 16; TEMP 36.7; O2SAT 97
--- NOTE | 2023-11-16 17:51 | MHC.EDTECH ---
Patient vitals taken ,This pct took Patient for a walk ,Pt was able to walk with 1 asst walker and gait belt about 50 ft ,Pt was soiled with small amount of bowel movement care given and bedding change ,Patient was set up with dinner ,ate 100 % of meal and drank 480 ml fluids ,Pt requested kitchen was called ,pt watching television and sipping on coffee ,Plan of care continue .
[2023-11-16] MEDS: Acetaminophen 325 MG TABLET 650 MG PO (18:21)
[2023-11-16 20:23] VITALS: BP 137/86; PULSE 82; RESP 16; TEMP 36.7; O2SAT 98
--- NOTE | 2023-11-16 20:28 | MHC.EDTECH ---
vitals taken ,Patient sitting up at the side of bed ,having ice cream ,saltines crackers and michael angel for snack .
[2023-11-16] MEDS: Melatonin 3 MG TABLET 9 MG PO (21:06)
[2023-11-16] MEDS: Tamsulosin HCL 0.4 MG CAPSULE PO (21:06)
[2023-11-16] MEDS: Divalproex Sodium 500 MG TABLET.DR PO (21:07)
--- NOTE | 2023-11-17 02:15 | MHC.EDTECH ---
Pt sleeping 450 ml urine empty from urinal .
[2023-11-17] MEDS: LORazepam 1 MG TABLET PO ×3 (02:58→20:09)
[2023-11-17] MEDS: Acetaminophen 325 MG TABLET 650 MG PO ×2 (03:02→10:16)
--- NOTE | 2023-11-17 03:27 | PC.NURSE ---
pt medicated per JUN w/ PRN tylenol and ativan, pt reporting he can not sleep i am here because i can't sleep and you wont help me . pt has been asleep during all hourly roundings prior to this waking.
[2023-11-17 06:14] VITALS: BP 106/64; PULSE 62; RESP 18; TEMP 36.9; O2SAT 97
[2023-11-17] MEDS: Omeprazole 20 MG CAPSULE.DR PO (06:22)
[2023-11-17 10:14] VITALS: BP 119/84; PULSE 76; RESP 18; O2SAT 98
[2023-11-17] MEDS: Metoprolol Tartrate 25 MG TABLET PO ×2 (10:15→20:14)
[2023-11-17] MEDS: amLODIPine Besylate 2.5 MG TABLET PO (10:16)
[2023-11-17] MEDS: Loratadine 10 MG TABLET PO (10:16)
[2023-11-17] MEDS: OLANZapine 2.5 MG TABLET PO ×2 (10:17→20:08)
[2023-11-17] MEDS: Apixaban 2.5 MG TABLET PO ×2 (10:17→20:08)
[2023-11-17] MEDS: Venlafaxine HCl ER 150 MG CAP.ER.24H PO (12:12)
[2023-11-17] MEDS: Venlafaxine HCl ER 37.5 MG CAP.ER.24H PO (12:12)
--- NOTE | 2023-11-17 12:53 | PC.NURSE ---
patient reporting being unable to sleep throughout the night, woke up to eat lunch and stated that he plans to sleep today in order to catch up on the sleep that he lost. utilized urinal at bedside, 200mL output.
--- NOTE | 2023-11-17 14:08 | MHC.CM.ED ---
[facility] to follow up with Medicaid leveling on 11/17 in anticipation of transfer. [facility] not available on weekends. ED CM to follow
--- NOTE | 2023-11-17 15:28 | PC.NURSE ---
ambulated through the unit with walker, patient states he got a little winded but wants to try again later to walk some more. patient now resting in bed with call mcknight within reach
--- NOTE | 2023-11-17 16:45 | PC.NURSE ---
patient requesting prn anxiety medication, medicated per the MAR.
[2023-11-17] MEDS: Divalproex Sodium 500 MG TABLET.DR PO (20:08)
[2023-11-17] MEDS: Tamsulosin HCL 0.4 MG CAPSULE PO (20:09)
[2023-11-17] MEDS: Melatonin 3 MG TABLET 9 MG PO (20:09)
[2023-11-17 20:16] VITALS: BP 142/85; PULSE 68; RESP 18; TEMP 36.7; O2SAT 99
--- NOTE | 2023-11-17 20:23 | PC.NURSE ---
pt request loreapam, for anxiety, and to help him sleep. Pt medicated as requested. Pt requested some crackers, pt given 4 packs. Pt asked about his gabapentin. States he takes it at home. Pt has an allergy to gabapentin. Pt states, I do not have an allergy to gabapetin. I take it at home. Informed the patient, we would check with his doctor...
--- NOTE | 2023-11-18 00:08 | MHC.EDTECH ---
THIS PCT ASSUMED CARE OF PATIENT AT 2350 ,PATIENT AWAKE SITTING AT THE SIDE OF BED WATCHING TELEVISION AND HAVING A SNACK .
--- NOTE | 2023-11-18 04:01 | MHC.EDTECH ---
PATIENT UP TO USE URINAL .
[2023-11-18 05:52] VITALS: BP 124/66; PULSE 62; RESP 16; TEMP 36.6; O2SAT 95
--- NOTE | 2023-11-18 05:56 | MHC.EDTECH ---
0600 rounding done ,vitals taken ,Patient awake use the urinal 600 ml empty from urinal ,no apparent distress noted .
[2023-11-18] MEDS: Omeprazole 20 MG CAPSULE.DR PO (06:21)
--- NOTE | 2023-11-18 06:33 | PC.NURSE ---
pt resting quietly at this time, resp with ease, no s/s of acute distress, will cont the plan of care
--- NOTE | 2023-11-18 07:12 | PC.NURSE ---
report given to Octavia CASANOVA
[2023-11-18 09:58] VITALS: BP 157/100
[2023-11-18] MEDS: amLODIPine Besylate 2.5 MG TABLET PO (09:58)
[2023-11-18 09:59] VITALS: BP 157/100; PULSE 72
[2023-11-18] MEDS: Metoprolol Tartrate 25 MG TABLET PO (09:59)
[2023-11-18] MEDS: Loratadine 10 MG TABLET PO (09:59)
[2023-11-18] MEDS: OLANZapine 2.5 MG TABLET PO (09:59)
[2023-11-18] MEDS: Apixaban 2.5 MG TABLET PO (09:59)
--- NOTE | 2023-11-18 10:14 | MHC.CM.ED ---
Addendum entered by Ingrid Fernandez 11/18/23 13:07: [facility] is able to offer a bed. MDS sent to [facility] for [facility] leveling. Patient can leave at 4pm. Brittni SOLANO booked. Med [facility] with chart. Patient, Yoanna CASANOVA and Zayra JOSHUA aware. Original Note: Patient remains in ER overflow. Clinical updates sent to [facility] to see if they can offer patient a bed. Continue to monitor for d/c needs.
[2023-11-18] MEDS: Venlafaxine HCl ER 150 MG CAP.ER.24H PO (10:34)
[2023-11-18] MEDS: Venlafaxine HCl ER 37.5 MG CAP.ER.24H PO (10:34)
[2023-11-18] MEDS: LORazepam 1 MG TABLET PO (10:34)
--- NOTE | 2023-11-18 12:30 | PC.NURSE ---
Report taken from Octavia RN, assumed care of pt at this time. A&Ox3 skin pwd respirations even unlabored. Sitting up in bed eating lunch, offers no complaints. Plan for transport to [facility] later today time undetermined. Will continue to monitor for additional needs.
[2023-11-18 14:25] VITALS: BP 110/70; PULSE 62; RESP 17; TEMP 36.7; O2SAT 99
--- NOTE | 2023-11-18 14:41 | PC.NURSE ---
100% of lunch consumed plus snack. Pt given coffee as requested. Ambulatory to bathroom with walker steady gait. Awaiting transport to [facility] at 1600, aware of plan of care.
== END 2023-11-18 16:09 ==
PROVIDERS: Physician Assistant Medical; Emergency Provider Emergency Medicine; PCP Internal Medicine
DX: R26.89 Other abnormalities of gait and mobility (principal); S50.812A Abrasion of left forearm, initial encounter; S50.811A Abrasion of right forearm, initial encounter; W06.XXXA Fall from bed, initial encounter; R45.1 Restlessness and agitation; K59.00 Constipation, unspecified; M10.9 Gout, unspecified; Z91.81 History of falling; Z11.52 Encounter for screening for COVID-19; R41.89 Other symptoms and signs involving cognitive functions and awareness; I10 Essential (primary) hypertension; I48.91 Unspecified atrial fibrillation; J45.909 Unspecified asthma, uncomplicated; D50.9 Iron deficiency anemia, unspecified; Z86.711 Personal history of pulmonary embolism; Y93.89 Activity, other specified; Y92.032 Bedroom in apartment as the place of occurrence of the external cause; Y99.9 Unspecified external cause status; Z79.01 Long term (current) use of anticoagulants; Z79.899 Other long term (current) drug therapy
CPT/HCPCS: 36415; 70450; 71045; 72125; 73660; 80048; 80076; 80164; 80307; 81003; 82140; 83735; 84484; 85025; 85610; 87635; 93005; 96372; 96374; 96375; 97162; 99285; J2060; J2359; J3486

== ENCOUNTER → 2023-11-08 22:59 | Outpatient (BNV) | payer MEDICARE, SELFPAY | PROVIDERS: Emergency Provider Emergency Medicine; PCP Internal Medicine; Visit Provider Internal Medicine Cardiovascular Disease | DX: R94.31 Abnormal electrocardiogram [ECG] [EKG] (principal) | CPT/HCPCS: 93010 ==

== ENCOUNTER → 2023-11-09 00:24 | Outpatient (BNV) | payer MEDICARE, SELFPAY | PROVIDERS: Emergency Provider Emergency Medicine; PCP Internal Medicine; Visit Provider Internal Medicine Cardiovascular Disease | DX: R00.0 Tachycardia, unspecified (principal); R94.31 Abnormal electrocardiogram [ECG] [EKG] | CPT/HCPCS: 93010 ==

== ENCOUNTER → 2023-11-09 00:33 | Outpatient (BNV) | payer MEDICARE, SELFPAY | PROVIDERS: Emergency Provider Emergency Medicine; PCP Internal Medicine; Visit Provider Psychiatry & Neurology Psychiatry | DX: R41.89 Other symptoms and signs involving cognitive functions and awareness (principal) | CPT/HCPCS: 99283 ==

== ENCOUNTER 2023-11-29 14:15 | Emergency (ER) | payer MEDICARE, MEDICAID, SELFPAY ==
--- NOTE | ~2023-11-29 | XR_ITS ---
EXAMINATION: XR CHEST CLINICAL INFORMATION: Burning sensation in chest. COMPARISON: Chest radiograph dated 11/09/2023. TECHNIQUE: 2 views of the chest were obtained. FINDINGS: The cardiomediastinal silhouette remains stable in size. There is calcific atherosclerotic disease of the aorta. The lungs are clear. There is no pleural effusion or pneumothorax. There are degenerative changes of the spine. There are surgical clips overlying the upper mid abdomen. XR/XR chest 2V IMPRESSION: Stable appearance of the heart and lungs. No active disease.
--- NOTE | 2023-11-29 14:34 | ED.ANXIETY ---
HPI - Anxiety General Chief Complaint: Anxiety Stated Complaint: ANXIETY ATTACK Time Seen by Provider: 11/29/23 14:34 Source: patient Mode of arrival: ambulatory Limitations: no limitations and other History of Present Illness HPI narrative: 78-year-old male presents emergency department complaining of anxiety. Patient has past medical history significant for advanced dementia anxiety asthma AFib on Eliquis left hip replacement. Patient denies any falls or injuries patient is calm and cooperative here he denies chest pain cough fever nausea vomiting or diarrhea. Related Data Home Medications ?Medication ?Instructions ?Recorded ?Confirmed lorazepam 1 mg tablet 1 tab PO BID 10/20/20 10/25/23 venlafaxine 150 mg 150 mg PO DAILY 04/17/21 10/25/23 capsule,extended release 24 hr fluticasone propionate 50 1 spray intranasal BID Allergy 06/09/22 10/25/23 mcg/actuation nasal Symptoms spray,suspension acetaminophen 325 mg tablet 650 mg PO Q4H PRN Fever Or Pain 09/30/23 10/25/23 (Tylenol) acetaminophen 325 mg tablet 650 mg PO TID 09/30/23 10/25/23 (Tylenol) amlodipine 2.5 mg tablet 2.5 mg PO DAILY 09/30/23 10/25/23 calcium carbonate 500 mg PO BID PRN Indigestion 09/30/23 10/25/23 cetirizine 10 mg tablet 10 mg PO DAILY 09/30/23 10/25/23 diclofenac sodium 1 % topical gel 4 g topical TID 09/30/23 10/25/23 divalproex 500 mg tablet,extended 500 mg PO DAILY 09/30/23 10/25/23 release 24 hr gabapentin 100 mg capsule 200 mg PO BID 09/30/23 10/25/23 lidocaine 4 % topical patch 1 patch topical DAILY 09/30/23 10/25/23 magnesium hydroxide 400 mg/5 mL 30 ml PO DAILY PRN Constipation 09/30/23 10/25/23 oral suspension (Milk of Magnesia) melatonin 10 mg tablet 10 mg PO BEDTIME 09/30/23 10/25/23 methyl salicylate-menthol topical 1 appl topical BID 09/30/23 10/25/23 cream metoprolol tartrate 25 mg tablet 25 mg PO BID 09/30/23 10/25/23 naloxone 4 mg/actuation nasal 4 mg intranasal Q3M PRN 09/30/23 10/25/23 spray (Narcan) sedation/unresponsive oxycodone 5 mg tablet 5 mg PO TID PRN Pain 09/30/23 10/25/23 polyethylene glycol 3350 17 17 g PO DAILY PRN Constipation 09/30/23 10/25/23 gram/dose oral powder (Miralax) simethicone 80 mg chewable tablet 80 mg PO Q8H PRN Indigestion 09/30/23 10/25/23 tamsulosin 0.4 mg capsule (Flomax) 0.4 mg PO BEDTIME 09/30/23 10/25/23 amlodipine 2.5 mg tablet 2.5 mg PO DAILY 11/09/23 11/09/23 apixaban 5 mg tablet (Eliquis) 2.5 mg PO BID 11/09/23 11/09/23 cetirizine 10 mg tablet 10 mg PO DAILY 11/09/23 11/09/23 divalproex 500 mg tablet,delayed 500 mg PO BEDTIME 11/09/23 11/09/23 release (Depakote) fluticasone propionate 50 1 spray intranasal BID 11/09/23 11/09/23 mcg/actuation nasal spray,suspension lidocaine 4 % topical patch 1 patch topical DAILY PRN pain 11/09/23 11/09/23 (Lidocaine Pain Relief) lorazepam 1 mg tablet 1 mg PO BID PRN Anxiety 11/09/23 11/09/23 melatonin 10 mg tablet 10 mg PO BEDTIME 11/09/23 11/09/23 metoprolol tartrate 25 mg tablet 25 mg PO BID 11/09/23 11/09/23 nystatin-triamcinolone 100,000 1 appl topical BID PRN Rash 11/09/23 11/09/23 unit/g-0.1 % topical cream oxycodone 5 mg tablet 5 mg PO Q8H PRN moderate pain 11/09/23 11/09/23 pantoprazole 40 mg tablet,delayed 40 mg PO DAILY@0630 11/09/23 11/09/23 release tamsulosin 0.4 mg capsule 0.4 mg PO BEDTIME 11/09/23 11/09/23 venlafaxine 150 mg 150 mg PO DAILY 11/09/23 11/09/23 capsule,extended release 24 hr (Effexor XR) venlafaxine 37.5 mg 37.5 mg PO DAILY 11/09/23 11/09/23 capsule,extended release 24 hr (Effexor XR) vibegron 75 mg tablet (Gemtesa) 75 mg PO DAILY 11/09/23 11/09/23 Previous Rx's ?Medication ?Instructions ?Recorded syringe with needle, safety 3 mL #100 ea 06/02/21 25 gauge x 5/8 (BD Safety-Jackie Detachable Needle) apixaban 5 mg tablet 5 mg PO BID 90 days #180 tabs 03/07/22 pantoprazole 40 mg tablet,delayed 40 mg PO DAILY #30 tabs 10/29/23 release lorazepam 1 mg tablet 1 mg PO BID PRN Anxiety #60 tabs 10/30/23 Allergies Allergy/AdvReac Type Severity Reaction Status Date / Time carisoprodol [From Soma] Allergy Mild MENTAL Verified 11/29/23 14:54 STATUS CHANGE, BECOMES AGGRESIVE codeine [Codeine] Allergy Mild STOMACH Verified 11/29/23 14:54 UPSET, RASH gabapentin AdvReac Intermediate lousy Verified 11/29/23 14:54 feeling Review of Systems Review of Systems: Review of systems: General: Patient denies any fever chills recent illness or falls Musculoskeletal: Denies back pain or body aches or other injuries HEENT: denies headache, runny nose, ear pain Respiratory: denies shortness of breath, cough Cardiovascular: no chest pain or palpitations : denies dysuria, frequency Abdomen: no nausea vomiting denies abdominal pain Extremities: no swelling, no pain Skin: no diaphoresis Yes all other systems are reviewed and are negative FOR[facility]LY [facility] Past Medical History Medical History (Updated 11/29/23 @ 16:03 by Ruy Jolly DO) Incisional hernia Premature atrial complexes Shortness of breath Rash Asthma exacerbation Leukocytosis Serum potassium elevated Low vitamin D level Headache Fatigue Moderate recurrent major depression Hospital discharge follow-up Chest tightness Dyspnea on exertion Allergic bronchitis Generalized anxiety disorder Tinea cruris SOB (shortness of breath) on exertion Constipation Atrial fibrillation Knee fracture, left Wedge compression fracture of L1 vertebra Prostate cancer Iron deficiency anemia Obstructive sleep apnea Vitamin D deficiency Diverticular disease Obesity (BMI 30-39.9) Peptic ulcer disease Degenerative disc disease GERD (gastroesophageal reflux disease) Anxiety and depression Vitamin B12 deficiency Gout Hypertension Fatigue Dysuria Surgical History (System 11/11/23 @ 07:50 by Callie Feng) History of colonoscopy History of hemiarthroplasty of left hip H/O rectal polypectomy History of knee replacement procedure of left knee H/O hernia repair History of pyloroplasty History of bowel resection History of cholecystectomy Family History Family History Father Diabetes Acute kidney failure Glaucoma Mother Lung cancer Social History Social History (System 11/11/23 @ 07:50 by Callie Feng) Household Members: None Housing: Apartment Do you presently have visiting nurse or other home services: No Alcohol intake: never Comment: sitter at bedside Patient Tobacco Use Status: Former Tobacco user Tobacco use type: Cigar e-Cigarette/Vaping Use: Currently Using Second Hand Smoke Exposure: No Advance Directives: Yes Advance Directives on File: Yes Advance Directives Date on File: 07/03/22 service: No Current occupational status: retired Cognitive needs: No Hearing needs: Yes Vision needs: Yes Physical Exam Vital Signs: Vital Signs: Last Vital Signs Temp 98.2 F 11/29/23 15:04 Pulse 98 11/29/23 15:04 Resp 15 11/29/23 15:04 BP 122/86 11/29/23 15:04 Pulse Ox 93 11/29/23 15:04 O2 Del Method Room Air 11/29/23 15:04 BMI result Body Mass Index 29.8 Neurological exam: CN II- XII tested. Patient is alert and oriented to person place and time. Patient has no dysphagia or dysarthia, denies good vision in all four vision colbert no nystagmus on exam, good strength to upper and lower extremities with normal reflexes to brachioradialis, wrist, patella and achilles. Negative romberg, good finger to nose and heel to bal. General: Well-appearing well-nourished in no signs of distress HEENT: Normocephalic atraumatic Neck: No signs of JVD, no masses no tenderness or lymphadenopathy Cardiovascular: Regular rate and rhythm Respiratory: Clear to auscultation bilaterally Abdomen: Soft nontender no masses Extremities: Normal pedal pulses no signs of edema Skin: Dry warm no rashes Back: No tenderness full ROM Course Course Course Narrative: Patient looks well labs and XR are all okay. I will continue with repeat troponin and sign out Dr. Phillips pending 2nd troponin. Medical Decision Making Medical Decision Making [facility] Narrative: Patient looks well symptoms have resolved I will call save and give the patient home.0 Patient has been placed finishing in the past. Pain appears to be epigastric in nature I will give the patient some Maalox and Pepcid. Differential Diagnosis Differential Diagnoses: The differential diagnosis associated with the presentation includes Anxiety dehydration Lab Data [facility] Lab Attestation statement: I reviewed the patient's lab results. slight eduardo with negative troponin. NO more pain normal EKG. 11/29/23 15:09 11/29/23 15:09 Labs: Lab Results 11/29/23 Range/Units 15:09 WBC 18.2 H (4.8-10.8) X10*3/uL RBC 4.55 L (4.60-5.80) X10*6/uL Hgb 11.0 L (14.0-18.0) g/dl Hct 34.7 L (42.0-52.0) % MCV 76.3 L (80.0-98.0) fL MCH 24.2 L (27.0-33.0) pg MCHC 31.7 (31.0-36.0) g/dl RDW 17.3 H (11.0-16.0) % Plt Count 540 H D (160-400) X10*3/uL MPV 10.2 (9.4-12.4) fL Immature Gran % (Auto) 0.9 H (0.0-0.4) % Neut % (Auto) 72.1 (45-73) % Lymph % (Auto) 16.8 L (20-40) % [place] % (Auto) 9.7 (2-11) % Eos % (Auto) 0.2 (0-4) % Baso % (Auto) 0.3 (0-2) % Lymph # (Auto) 3.1 (1.2-4.9) X10*3/uL [place] # (Auto) 1.8 H (0.1-1.2) X10*3/uL Eos # (Auto) 0.0 (0.0-0.4) X10*3/uL Baso # (Auto) 0.1 (0.0-0.2) X10*3/uL Abs Immat Gran (auto) 0.17 H (0.00-0.03) X10*3/uL Absolute Neuts (auto) 13.1 H (2.0-8.3) x10*3/uL Absolute Nucleated RBC 0.000 (0.0-0.012) X10*3/uL Nucleated RBC % (auto) 0.0 (0.0-0.2) /100WBC Smear Tech's Comments VERIFIED Sodium 140 (135-145) mmol/L Potassium 4.6 D (3.3-5.1) mmol/L Chloride 109 H (96-108) mmol/L Carbon Dioxide 22 (22-29) mmol/L Anion Gap 14 (12-20) BUN 39 H (9-16) mg/dL Creatinine 1.41 H (0.5-1.4) mg/dL Estim Creat Clear Calc 53.6 Estimated GFR 49 Random Glucose 100 (60-115) mg/dL Calcium 9.2 (8.4-10.2) mg/dL Troponin I High Sens 15.1 D (<3.5-35.0) ng/L Independent Interpretation I performed an independent interpretation of an: EKG and Plain X-Ray External Record Review External record reviewed: Inpatient record, Office record and Outpatient record Discharge Plan Discharge Clinical Impression: Chest pain, Acute kidney injury Patient Disposition: Home, Self-Care Instructions: Chest Pain (DC) Additional Instructions: You were seen today for chest pain and anxiety. You had x-ray and labs done which were unremarkable. Though than some dehydration. Please drink plenty of fluids. If you have any other concerns please do not hesitate to come back to emergency department. Prescriptions: No Action (DME) BD Safety-Jackie Detachable Needl 3 mL 25 gauge x 5/8 syringe See Rx Instructions .ROUTE .MEDSUPPLY Qty: 100 12RF Rx Instructions: As directed apixaban 5 mg tablet 5 mg PO BID 90 Days Qty: 180 2RF cetirizine 10 mg Tablet 10 mg PO DAILY calcium carbonate 500 mg calcium (1,250 mg) Tablet,Chewable 500 mg PO BID PRN (Reason: Indigestion) diclofenac sodium 1 % Gel 4 g TOPICAL TID Rx Instructions: Apply topically to right hip. pantoprazole 40 mg tablet,delayed release (DR/EC) 40 mg PO DAILY Qty: 30 0RF lorazepam 1 mg tablet 1 mg PO BID PRN (Reason: Anxiety) Qty: 60 0RF lorazepam 1 mg tablet 1 tab PO BID venlafaxine 150 mg capsule,extended release 24hr 150 mg PO DAILY Rx Instructions: take with 37.5mg for total dose of 187.5mg fluticasone propionate 50 mcg/actuation spray,suspension 1 spray intranasal BID Rx Instructions: instill one spray into each nostril acetaminophen [Tylenol] 325 mg Tablet 650 mg PO TID acetaminophen [Tylenol] 325 mg Tablet 650 mg PO Q4H PRN (Reason: Fever Or Pain) Rx Instructions: Discomfort/temp 101 or greater. lidocaine 4 % Adhesive Patch,Medicated 1 patch TOPICAL DAILY Rx Instructions: REMOVE AFTER 12 HOUR. to lower back amlodipine 2.5 mg Tablet 2.5 mg PO DAILY magnesium hydroxide [Milk of Magnesia] 400 mg/5 mL Suspension 30 ml PO DAILY PRN (Reason: Constipation) Rx Instructions: for no BM in 3 DAYS tamsulosin [Flomax] 0.4 mg Capsule 0.4 mg PO BEDTIME divalproex 500 mg Tablet Extended Release 24 Hr 500 mg PO DAILY gabapentin 100 mg Capsule 200 mg PO BID polyethylene glycol 3350 [Miralax] 17 gram/dose Powder 17 g PO DAILY PRN (Reason: Constipation) Rx Instructions: Mix with 4-6 Oz of fluid of choice. simethicone 80 mg Tablet,Chewable 80 mg PO Q8H PRN (Reason: Indigestion) oxycodone 5 mg Tablet 5 mg PO TID PRN (Reason: Pain) Muscle Rub with Menthol Cream 1 appl TOPICAL BID Rx Instructions: Neck and shoulders metoprolol tartrate 25 mg Tablet 25 mg PO BID Protocol: Hold for SBP/HR < HOLD for SBP < : 120 HOLD for HR < : 60 melatonin 10 mg Tablet 10 mg PO BEDTIME naloxone [Narcan] 4 mg/actuation [place],Non-Aerosol 4 mg INTRANASAL Q3M PRN (Reason: sedation/unresponsive) Rx Instructions: spray 1 dose into ONE nostril; alternate nostrils w each dose until help arrives venlafaxine [Effexor XR] 37.5 mg capsule,extended release 24hr 37.5 mg PO DAILY Rx Instructions: with 150 mg lidocaine [Lidocaine Pain Relief] 4 % adhesive patch,medicated 1 patch topical DAILY PRN (Reason: pain) cetirizine 10 mg tablet 10 mg PO DAILY venlafaxine [Effexor XR] 150 mg capsule,extended release 24hr 150 mg PO DAILY Rx Instructions: with 37.5 mg amlodipine 2.5 mg tablet 2.5 mg PO DAILY divalproex [Depakote] 500 mg tablet,delayed release (DR/EC) 500 mg PO BEDTIME tamsulosin 0.4 mg capsule 0.4 mg PO BEDTIME pantoprazole 40 mg tablet,delayed release (DR/EC) 40 mg PO DAILY@0630 nystatin-triamcinolone 100,000-0.1 unit/g-% cream 1 appl topical BID PRN (Reason: Rash) lorazepam 1 mg tablet 1 mg PO BID PRN (Reason: Anxiety) fluticasone propionate 50 mcg/actuation spray,suspension 1 spray intranasal BID oxycodone 5 mg tablet 5 mg PO Q8H PRN (Reason: moderate pain) metoprolol tartrate 25 mg tablet 25 mg PO BID melatonin 10 mg tablet 10 mg PO BEDTIME Eliquis 5 mg tablet 2.5 mg PO BID Gemtesa 75 mg tablet 75 mg PO DAILY Print Language: Martiniquais
[2023-11-29 14:46] VITALS: BP 117/71; BP 158/90; PULSE 60; PULSE 94; RESP 14; TEMP 36.4; O2SAT 95; O2SAT 98; BMI 29.8
[2023-11-29 15:04] VITALS: BP 122/86; PULSE 98; RESP 15; TEMP 36.8; O2SAT 93
[2023-11-29 15:16] LABS: Basophils Absolute Auto 0.1 X10*3/uL (0.0-0.2); Basophils Percent Auto 0.3 % (0-2); Eosinophils Percent Auto 0.2 % (0-4); Hematocrit 34.7 % (42.0-52.0); Imm Gran Abs Auto 0.17 X10*3/uL (0.00-0.03); Imm Gran Pct Auto 0.9 % (0.0-0.4); Lymphocytes Absolute Auto 3.1 X10*3/uL (1.2-4.9); Lymphocytes Percent Auto 16.8 % (20-40); MANUAL DIFF FLAG SCAN; Mean Corpuscular HGB Conc 31.7 g/dl (31.0-36.0); Mean Corpuscular Hemoglobin 24.2 pg (27.0-33.0); Mean Corpuscular Volume 76.3 fL (80.0-98.0); Mean Platelet Volume 10.2 fL (9.4-12.4); Monocytes Absolute Auto 1.8 X10*3/uL (0.1-1.2); Monocytes Percent Auto 9.7 % (2-11); Neutrophils Absolute Auto 13.1 x10*3/uL (2.0-8.3); Neutrophils Percent Auto 72.1 % (45-73); Platelet Count 540 X10*3/uL (160-400); Red Blood Count 4.55 X10*6/uL (4.60-5.80); Red Cell Distribution Width 17.3 % (11.0-16.0); SCAN SMEAR FLAG 1; White Blood Count 18.2 X10*3/uL (4.8-10.8)
--- NOTE | 2023-11-29 15:16 | MHC.EDTECH ---
This tech perform venipuncture on pt to draw blood, pt tolerated well, pt requested michael ortiz- dr Jolly approved it. Call mcknight within reach.
[2023-11-29 15:27] LABS: Anion Gap 14 (12-20); Blood Urea Nitrogen 39 mg/dL (9-16); Calcium 9.2 mg/dL (8.4-10.2); Carbon Dioxide 22 mmol/L (22-29); Chloride 109 mmol/L (96-108); Creatinine Clr Calc Pharmacy 53.6; Estimated Glomerular Filt Rate 49; Glucose Random 100 mg/dL (60-115); Potassium 4.6 mmol/L (3.3-5.1); Sodium 140 mmol/L (135-145)
[2023-11-29 15:36] LABS: Troponin-I High Sensitivity 15.1 ng/L (<3.5-35.0)
[2023-11-29 15:38] LABS: SLIDE REVIEW VERIFIED
[2023-11-29] MEDS: Magnesium Hydrox/Alum Hydrox 30 ML ORAL.SUSP PO (16:34)
[2023-11-29] MEDS: Famotidine 20 MG TABLET PO (16:34)
[2023-11-29] MEDS: Acetaminophen 325 MG TABLET 650 MG PO (17:26)
== END 2023-11-29 21:00 | disposition home or self-care (01) ==
PROVIDERS: Emergency Provider Student in an Organized Health Care Education/Training Program; PCP Internal Medicine
DX: R07.9 Chest pain, unspecified (principal); N17.9 Acute kidney failure, unspecified; R10.13 Epigastric pain; F41.9 Anxiety disorder, unspecified; I10 Essential (primary) hypertension; J45.909 Unspecified asthma, uncomplicated; I48.91 Unspecified atrial fibrillation; Z79.01 Long term (current) use of anticoagulants; Z79.899 Other long term (current) drug therapy; Z87.891 Personal history of nicotine dependence
CPT/HCPCS: 36415; 71046; 80048; 84484; 85025; 99283; 99284

== ENCOUNTER 2023-11-30 13:33 | Emergency (ER) | payer MEDICARE, MEDICAID, SELFPAY ==
--- NOTE | ~2023-11-30 | XR_ITS ---
EXAMINATION: XR CHEST CLINICAL INFORMATION: Shortness of breath COMPARISON: 11/29/2023 TECHNIQUE: Frontal view of the chest was obtained. FINDINGS: There is low lung volume bilaterally without infiltrates nodules or vascular congestion. There is tortuosity of aorta, possibly ascending thoracic aortic aneurysm or ectasia. There are postsurgical musa at the gastroesophageal junction XR/XR chest 1V IMPRESSION: Tortuous aorta. No active cardiopulmonary disease
--- NOTE | ~2023-11-30 | CT_ITS ---
EXAMINATION: CT ABDOMEN AND PELVIS WITH CONTRAST CLINICAL INFORMATION: Hernia, abdominal pain, retained sutures. COMPARISON: 08/21/2022 TECHNIQUE: Multidetector volumetric images were obtained from the superior aspect of the liver through the pubic symphysis following administration 85 mL of Omnipaque 350 intravenous contrast. Sagittal and coronal reformatted images were obtained on the technologist's workstation. Oral contrast: No This CT examination was performed using dose optimization techniques as appropriate, variously including the following: *Automated exposure control *Adjustment of mA and/or kV according to patient size (this includes techniques or standardized protocols for targeted exams where dose is matched to indication/reason for exam; i.e. extremities or head) *Use of iterative reconstruction technique DLP: 763 mGy-cm FINDINGS: LUNG BASES: There are bibasilar atelectasis LIVER, GALLBLADDER, AND BILIARY TREE: The liver is normal in size, shape, and attenuation. No focal hepatic lesion or biliary ductal dilatation is present. Gallbladder is surgically absent. PANCREAS: There is fatty atrophy of the pancreas SPLEEN: Unremarkable. ADRENAL GLANDS: Unremarkable. KIDNEYS AND URETERS: There is perinephric stranding without hydroureteronephrosis or nephrolithiasis BLADDER: Unremarkable. GASTROINTESTINAL TRACT: Patient is status post gastroesophageal fundoplication. There is no evidence of colitis, diverticulitis, diverticulosis. Few small diverticula seen through the sigmoid. Small bowel loops are unremarkable. Appendix is unremarkable. ABDOMINAL WALL: Patient is status post abdominal hernia repair with extensive mesh. No evidence of recurrent herniations. LYMPH NODES: Normal. VASCULAR: Atherosclerotic calcifications of abdominal aorta without dilatation SMA and celiac arteries are patent. PELVIC VISCERA: Patient is status post radioactive seeds placement in the prostate. OSSEOUS STRUCTURES: There is stable compression deformity of L1 vertebral body with vertebroplasty. There are degenerative changes at the level of L2-L3 and L4-L5. There is status post left hip arthroplasty with chronic displacement of left femoral shaft CT/CT abdomen pelvis w IV con IMPRESSION: 1. Status post abdominal hernia repair with extensive mesh. No evidence of recurrent herniation. 2. Status post gastroesophageal fundoplication. 3. Status post cholecystectomy.. 4. Status post radioactive seeds placement in the prostate. 5. Degenerative changes in lumbar spine, L1 compression deformity and chronic dislocation of left hip prosthesis. Fleischner guidelines were followed.
--- NOTE | 2023-11-30 13:44 | ECG_ITS ---
Test Reason : WEAKNESS Blood Pressure : / mmHG Vent. Rate : 091 BPM Atrial Rate : 091 BPM P-R Int : 168 ms QRS Dur : 088 ms QT Int : 384 ms P-R-T Axes : 035 043 056 degrees QTc Int : 472 ms Sinus rhythm with Premature atrial complexes Lateral infarct (cited on or before 18-DEC-2022) Abnormal ECG When compared with ECG of 28-SEP-2023 21:33, Questionable change in initial forces of Septal leads Referred By: Nisha Bates Electronically Signed By:Reynold Ybarra
[2023-11-30 13:47] VITALS: BP 118/80; BP 128/72; PULSE 78; PULSE 81; RESP 16; TEMP 36.7; O2SAT 97; O2SAT 98; BMI 30.9
[2023-11-30 14:00] VITALS: BP 122/65; PULSE 75; RESP 20; TEMP 36.7; O2SAT 98
--- NOTE | 2023-11-30 14:00 | ED_ITS ---
HPI - SOB/Dyspnea General Chief Complaint: Dyspnea Stated Complaint: DIFF BREATHING SEEN HERE YEST Time Seen by Provider: 11/30/23 13:44 Source: patient, EMS, RN notes reviewed and old records reviewed Mode of arrival: EMS History of Present Illness ED Provider: Nisha Bates PA-C HPI Narrative: 78-year-old male with past medical history of incisional hernia, asthma, anxiety, constipation, AFib on Eliquis, [place], iron deficiency anemia, GERD, HTN, gout, presenting to the ED complaining of worsening dyspnea since 04:00 with chest pressure. Patient also reports periumbilical abdominal discomfort and retained sutures from prior abdominal surgery. Patient was evaluated in our ED yesterday for similar symptoms and discharged home. Denies nausea/vomiting, diarrhea, new or worsening pedal edema, fever, sick contacts, travel Related Data Home Medications ?Medication ?Instructions ?Recorded ?Confirmed lorazepam 1 mg tablet 1 tab PO BID 10/20/20 10/25/23 venlafaxine 150 mg 150 mg PO DAILY 04/17/21 10/25/23 capsule,extended release 24 hr fluticasone propionate 50 1 spray intranasal BID Allergy 06/09/22 10/25/23 mcg/actuation nasal Symptoms spray,suspension acetaminophen 325 mg tablet 650 mg PO Q4H PRN Fever Or Pain 09/30/23 10/25/23 (Tylenol) acetaminophen 325 mg tablet 650 mg PO TID 09/30/23 10/25/23 (Tylenol) amlodipine 2.5 mg tablet 2.5 mg PO DAILY 09/30/23 10/25/23 calcium carbonate 500 mg PO BID PRN Indigestion 09/30/23 10/25/23 cetirizine 10 mg tablet 10 mg PO DAILY 09/30/23 10/25/23 diclofenac sodium 1 % topical gel 4 g topical TID 09/30/23 10/25/23 divalproex 500 mg tablet,extended 500 mg PO DAILY 09/30/23 10/25/23 release 24 hr gabapentin 100 mg capsule 200 mg PO BID 09/30/23 10/25/23 lidocaine 4 % topical patch 1 patch topical DAILY 09/30/23 10/25/23 magnesium hydroxide 400 mg/5 mL 30 ml PO DAILY PRN Constipation 09/30/23 10/25/23 oral suspension (Milk of Magnesia) melatonin 10 mg tablet 10 mg PO BEDTIME 09/30/23 10/25/23 methyl salicylate-menthol topical 1 appl topical BID 09/30/23 10/25/23 cream metoprolol tartrate 25 mg tablet 25 mg PO BID 09/30/23 10/25/23 naloxone 4 mg/actuation nasal 4 mg intranasal Q3M PRN 09/30/23 10/25/23 spray (Narcan) sedation/unresponsive oxycodone 5 mg tablet 5 mg PO TID PRN Pain 09/30/23 10/25/23 polyethylene glycol 3350 17 17 g PO DAILY PRN Constipation 09/30/23 10/25/23 gram/dose oral powder (Miralax) simethicone 80 mg chewable tablet 80 mg PO Q8H PRN Indigestion 09/30/23 10/25/23 tamsulosin 0.4 mg capsule (Flomax) 0.4 mg PO BEDTIME 09/30/23 10/25/23 amlodipine 2.5 mg tablet 2.5 mg PO DAILY 11/09/23 11/09/23 apixaban 5 mg tablet (Eliquis) 2.5 mg PO BID 11/09/23 11/09/23 cetirizine 10 mg tablet 10 mg PO DAILY 11/09/23 11/09/23 divalproex 500 mg tablet,delayed 500 mg PO BEDTIME 11/09/23 11/09/23 release (Depakote) fluticasone propionate 50 1 spray intranasal BID 11/09/23 11/09/23 mcg/actuation nasal spray,suspension lidocaine 4 % topical patch 1 patch topical DAILY PRN pain 11/09/23 11/09/23 (Lidocaine Pain Relief) lorazepam 1 mg tablet 1 mg PO BID PRN Anxiety 11/09/23 11/09/23 melatonin 10 mg tablet 10 mg PO BEDTIME 11/09/23 11/09/23 metoprolol tartrate 25 mg tablet 25 mg PO BID 11/09/23 11/09/23 nystatin-triamcinolone 100,000 1 appl topical BID PRN Rash 11/09/23 11/09/23 unit/g-0.1 % topical cream oxycodone 5 mg tablet 5 mg PO Q8H PRN moderate pain 11/09/23 11/09/23 pantoprazole 40 mg tablet,delayed 40 mg PO DAILY@0630 11/09/23 11/09/23 release tamsulosin 0.4 mg capsule 0.4 mg PO BEDTIME 11/09/23 11/09/23 venlafaxine 150 mg 150 mg PO DAILY 11/09/23 11/09/23 capsule,extended release 24 hr (Effexor XR) venlafaxine 37.5 mg 37.5 mg PO DAILY 11/09/23 11/09/23 capsule,extended release 24 hr (Effexor XR) vibegron 75 mg tablet (Gemtesa) 75 mg PO DAILY 11/09/23 11/09/23 Previous Rx's ?Medication ?Instructions ?Recorded syringe with needle, safety 3 mL #100 ea 06/02/21 25 gauge x 5/8 (BD Safety-Jackie Detachable Needle) apixaban 5 mg tablet 5 mg PO BID 90 days #180 tabs 03/07/22 pantoprazole 40 mg tablet,delayed 40 mg PO DAILY #30 tabs 10/29/23 release lorazepam 1 mg tablet 1 mg PO BID PRN Anxiety #60 tabs 10/30/23 Allergies Allergy/AdvReac Type Severity Reaction Status Date / Time carisoprodol [From Soma] Allergy Mild MENTAL Verified 11/30/23 13:50 STATUS CHANGE, BECOMES AGGRESIVE codeine [Codeine] Allergy Mild STOMACH Verified 11/30/23 13:50 UPSET, RASH gabapentin AdvReac Intermediate lousy Verified 11/30/23 13:50 feeling Review of Systems 2 Review of Systems: Constitutional: No Fever, No Chills ENT/Mouth: No Ear Pain, No Nasal Congestion, No sore throat, No Rhinorrhea, No Swallowing Difficulty Cardiovascular: + Chest Pain, + SOB Respiratory: No Cough, No Sputum, No Wheezing Gastrointestinal: No Nausea, No Vomiting, No Diarrhea, No Constipation, + Abdominal pain Genitourinary: No Dysuria, No Urinary Frequency, No Hematuria, No Flank Pain Musculoskeletal: No joint pain, No Myalgias, No Joint Swelling Skin: No Skin Lesions, No rash Neuro: No Weakness Yes all other systems are reviewed and are negative Constitutional: Constitutional: Reports as per [facility] Past Medical History Attestation statement: The following information was validated with the patient. Source: old records reviewed Medical History Incisional hernia Premature atrial complexes Shortness of breath Rash Asthma exacerbation Leukocytosis Serum potassium elevated Low vitamin D level Headache Fatigue Moderate recurrent major depression Hospital discharge follow-up Chest tightness Dyspnea on exertion Allergic bronchitis Generalized anxiety disorder Tinea cruris SOB (shortness of breath) on exertion Constipation Atrial fibrillation Knee fracture, left Wedge compression fracture of L1 vertebra Prostate cancer Iron deficiency anemia Obstructive sleep apnea Vitamin D deficiency Diverticular disease Obesity (BMI 30-39.9) Peptic ulcer disease Degenerative disc disease GERD (gastroesophageal reflux disease) Anxiety and depression Vitamin B12 deficiency Gout Hypertension Fatigue Dysuria Surgical History History of colonoscopy History of hemiarthroplasty of left hip H/O rectal polypectomy History of knee replacement procedure of left knee H/O hernia repair History of pyloroplasty History of bowel resection History of cholecystectomy Family History Family History Father Diabetes Acute kidney failure Glaucoma Mother Lung cancer Social History Social History Household Members: None Housing: Apartment Do you presently have visiting nurse or other home services: No Alcohol intake: never Comment: sitter at bedside Patient Tobacco Use Status: Former Tobacco user Tobacco use type: Cigar e-Cigarette/Vaping Use: Currently Using Second Hand Smoke Exposure: No Advance Directives: Yes Advance Directives on File: Yes Advance Directives Date on File: 07/03/22 service: No Current occupational status: retired Cognitive needs: No Hearing needs: Yes Vision needs: Yes Physical Exam 2 Vital Signs: Vital Signs: Last Vital Signs Temp 98.1 F 11/30/23 14:00 Pulse 75 11/30/23 14:00 Resp 20 11/30/23 14:00 BP 122/65 11/30/23 14:00 Pulse Ox 98 11/30/23 14:00 O2 Del Method Room Air 11/30/23 14:00 BMI result Body Mass Index 30.9 Const: General: cooperative and no acute distress O rientation/consciousness: patient oriented x3 Limitations: no limitations HEENT: Head: Yes normal to inspection and Yes atraumatic Ears: hearing grossly normal bilaterally General nose exam: Normal external nose present Face and sinus: Yes normal facial exam Eyes: General: appearance normal, both eyes and all related structures EOM: EOMs intact bilaterally Neck: Neck: Yes normal visual inspection and Yes no meningeal signs Resp: Effort & Inspection: normal respiratory effort and no respiratory distress Auscultation: clear to auscultation bilaterally, no crackles, no rhonchi and no wheezes Cardio: Rate: regular rate Heart sounds: S1 normal heart sound present and S2 normal heart sound present GI: Other: Incisional hernia, reducible, tender Inspection: Yes normal to inspection Palpation (GI): Soft to palpation, Tenderness to palpation present (GI) periumbilically, no guarding and not rigid : General: Yes no CVA tenderness Back/Spine/Pelvis: Back: no CVA tenderness Skin: Rashes: no rashes Wounds: no wounds Neuro: General: patient oriented x3, tone normal and no meningeal signs C ranial nerves: Yes CN's II-XII intact bilaterally Gait exam (Neuro): Normal gait present Extrem: General: Yes normal to inspection Course Course Course Narrative: -1556--no leukocytosis. H&H at patient's baseline. BUN improved from yesterday -troponin 7.3 > will obtain 3 hour repeat. -1630--ED care transferred to JOSIANE Galindo pending CXR, viral testing, CT AP, and repeat troponin Medications Administered Discontinued Medications Generic Name Dose Route Start Last Admin Trade Name [place]q PRN Reason Stop Dose Admin Acetaminophen 650 mg 11/30/23 16:21 11/30/23 16:26 Acetaminophen 325 Mg Tablet PO 11/30/23 16:22 650 mg ONCE ONE Administration Morphine Sulfate 2 mg 11/30/23 16:20 11/30/23 16:26 Morphine Sulfate 2 Mg/Ml Cartridge IVPUSH 11/30/23 16:21 2 mg ONCE ONE Administration Protocol Medical Decision Making Medical Decision Making [facility] Narrative: 78-year-old male with past medical history of incisional hernia, asthma, anxiety, constipation, AFib on Eliquis, [place], iron deficiency anemia, GERD, HTN, gout, presenting to the ED complaining of worsening dyspnea since 04:00 with chest pressure. Patient also reports periumbilical abdominal discomfort and retained sutures from prior abdominal surgery. On exam vital signs stable, NAD, nontoxic appearing, lungs CTA, incisional hernia appreciated with tenderness. Concern for pneumonia vs bronchitis vs atypical ACS vs CHF. PE on differential however lower. Concern for incarcerated/strangulated hernia vs appendicitis/diverticulitis Plan: EKG, labs, CXR, CT AP, viral testing Low suspicion for severe sepsis at this time Please refer to course for remaining clinical decision making, interpretation of labs/imaging results, and discussions with consultants and/or family members. Differential Diagnosis Differential Diagnoses: The differential diagnosis associated with the presentation includes As above Admission/Observation Consideration of admission/observation: Escalation of care including admission/observation considered Lab Data MDM Lab Attestation statement: I reviewed the patient's lab results. 11/30/23 15:10 11/30/23 15:10 Labs: Lab Results 11/30/23 Range/Units 15:10 WBC 11.9 H (4.8-10.8) X10*3/uL RBC 4.35 L (4.60-5.80) X10*6/uL Hgb 10.3 L (14.0-18.0) g/dl Hct 33.0 L (42.0-52.0) % MCV 75.9 L (80.0-98.0) fL MCH 23.7 L (27.0-33.0) pg MCHC 31.2 (31.0-36.0) g/dl RDW 17.2 H (11.0-16.0) % Plt Count 468 H (160-400) X10*3/uL MPV 10.0 (9.4-12.4) fL Immature Gran % (Auto) 0.7 H (0.0-0.4) % Neut % (Auto) 68.2 (45-73) % Lymph % (Auto) 21.3 (20-40) % [place] % (Auto) 8.9 (2-11) % Eos % (Auto) 0.6 (0-4) % Baso % (Auto) 0.3 (0-2) % Lymph # (Auto) 2.5 (1.2-4.9) X10*3/uL [place] # (Auto) 1.1 (0.1-1.2) X10*3/uL Eos # (Auto) 0.1 (0.0-0.4) X10*3/uL Baso # (Auto) 0.0 (0.0-0.2) X10*3/uL Abs Immat Gran (auto) 0.08 H (0.00-0.03) X10*3/uL Absolute Neuts (auto) 8.1 (2.0-8.3) x10*3/uL Absolute Nucleated RBC 0.000 (0.0-0.012) X10*3/uL Nucleated RBC % (auto) 0.0 (0.0-0.2) /100WBC PT 14.9 H (11.1-13.3) SEC INR 1.2 H (0.9-1.1) Sodium 138 (135-145) mmol/L Potassium 3.9 (3.3-5.1) mmol/L Chloride 107 (96-108) mmol/L Carbon Dioxide 23 (22-29) mmol/L Anion Gap 12 (12-20) BUN 29 H (9-16) mg/dL Creatinine 1.07 (0.5-1.4) mg/dL Estim Creat Clear Calc 69.8 Estimated GFR > 60 Random Glucose 91 (60-115) mg/dL Lactic Acid 0.9 (0.5-2.0) mmol/L Calcium 9.2 (8.4-10.2) mg/dL Magnesium 2.2 (1.6-2.6) mg/dL Total Bilirubin 0.6 (0.0-1.0) mg/dL Direct Bilirubin 0.2 (0.0-0.5) mg/dL AST 16 (5-37) U/L ALT 24 (0-40) U/L Alkaline Phosphatase 74 (39-117) U/L Troponin I High Sens 7.3 D (<3.5-35.0) ng/L B-Natriuretic Peptide 171 H (<100) pg/mL Total Protein 7.0 (6.5-8.0) g/dL Albumin 3.9 (3.5-5.0) g/dL Influenza Type A (PCR) NEGATIVE (Negative) Influenza Type B (PCR) NEGATIVE (Negative) RSV RNA Qual (PCR) NEGATIVE (Negative) SARS-CoV-2 RNA (RT-PCR) NEGATIVE (Negative) Independent Interpretation I performed an independent interpretation of an: EKG, Plain X-Ray and CT Scan Radiology Impression Discussion of test interpretation with radiology: I have reviewed the radiologist's reading. Independent Historian Clinical information obtained from an independent historian. History obtained from or confirmed by: EMS External Record Review External record reviewed: Inpatient record, Office record, Outpatient record, Prior outpatient labs, Prior outpatient radiology, Primary care record and Outside ED record Tests considered The following testing was considered but not selected: As above Discharge Plan Discharge Clinical Impression: Dyspnea, Abdominal pain Patient Disposition: Still a Patient Prescriptions: No Action (DME) BD Safety-Jackie Detachable Needl 3 mL 25 gauge x 5/8 syringe See Rx Instructions .ROUTE .MEDSUPPLY Qty: 100 12RF Rx Instructions: As directed apixaban 5 mg tablet 5 mg PO BID 90 Days Qty: 180 2RF cetirizine 10 mg Tablet 10 mg PO DAILY calcium carbonate 500 mg calcium (1,250 mg) Tablet,Chewable 500 mg PO BID PRN (Reason: Indigestion) diclofenac sodium 1 % Gel 4 g TOPICAL TID Rx Instructions: Apply topically to right hip. pantoprazole 40 mg tablet,delayed release (DR/EC) 40 mg PO DAILY Qty: 30 0RF lorazepam 1 mg tablet 1 mg PO BID PRN (Reason: Anxiety) Qty: 60 0RF lorazepam 1 mg tablet 1 tab PO BID venlafaxine 150 mg capsule,extended release 24hr 150 mg PO DAILY Rx Instructions: take with 37.5mg for total dose of 187.5mg fluticasone propionate 50 mcg/actuation spray,suspension 1 spray intranasal BID Rx Instructions: instill one spray into each nostril acetaminophen [Tylenol] 325 mg Tablet 650 mg PO TID acetaminophen [Tylenol] 325 mg Tablet 650 mg PO Q4H PRN (Reason: Fever Or Pain) Rx Instructions: Discomfort/temp 101 or greater. lidocaine 4 % Adhesive Patch,Medicated 1 patch TOPICAL DAILY Rx Instructions: REMOVE AFTER 12 HOUR. to lower back amlodipine 2.5 mg Tablet 2.5 mg PO DAILY magnesium hydroxide [Milk of Magnesia] 400 mg/5 mL Suspension 30 ml PO DAILY PRN (Reason: Constipation) Rx Instructions: for no BM in 3 DAYS tamsulosin [Flomax] 0.4 mg Capsule 0.4 mg PO BEDTIME divalproex 500 mg Tablet Extended Release 24 Hr 500 mg PO DAILY gabapentin 100 mg Capsule 200 mg PO BID polyethylene glycol 3350 [Miralax] 17 gram/dose Powder 17 g PO DAILY PRN (Reason: Constipation) Rx Instructions: Mix with 4-6 Oz of fluid of choice. simethicone 80 mg Tablet,Chewable 80 mg PO Q8H PRN (Reason: Indigestion) oxycodone 5 mg Tablet 5 mg PO TID PRN (Reason: Pain) Muscle Rub with Menthol Cream 1 appl TOPICAL BID Rx Instructions: Neck and shoulders metoprolol tartrate 25 mg Tablet 25 mg PO BID Protocol: Hold for SBP/HR < HOLD for SBP < : 120 HOLD for HR < : 60 melatonin 10 mg Tablet 10 mg PO BEDTIME naloxone [Narcan] 4 mg/actuation [place],Non-Aerosol 4 mg INTRANASAL Q3M PRN (Reason: sedation/unresponsive) Rx Instructions: spray 1 dose into ONE nostril; alternate nostrils w each dose until help arrives venlafaxine [Effexor XR] 37.5 mg capsule,extended release 24hr 37.5 mg PO DAILY Rx Instructions: with 150 mg lidocaine [Lidocaine Pain Relief] 4 % adhesive patch,medicated 1 patch topical DAILY PRN (Reason: pain) cetirizine 10 mg tablet 10 mg PO DAILY venlafaxine [Effexor XR] 150 mg capsule,extended release 24hr 150 mg PO DAILY Rx Instructions: with 37.5 mg amlodipine 2.5 mg tablet 2.5 mg PO DAILY divalproex [Depakote] 500 mg tablet,delayed release (DR/EC) 500 mg PO BEDTIME tamsulosin 0.4 mg capsule 0.4 mg PO BEDTIME pantoprazole 40 mg tablet,delayed release (DR/EC) 40 mg PO DAILY@0630 nystatin-triamcinolone 100,000-0.1 unit/g-% cream 1 appl topical BID PRN (Reason: Rash) lorazepam 1 mg tablet 1 mg PO BID PRN (Reason: Anxiety) fluticasone propionate 50 mcg/actuation spray,suspension 1 spray intranasal BID oxycodone 5 mg tablet 5 mg PO Q8H PRN (Reason: moderate pain) metoprolol tartrate 25 mg tablet 25 mg PO BID melatonin 10 mg tablet 10 mg PO BEDTIME Eliquis 5 mg tablet 2.5 mg PO BID Gemtesa 75 mg tablet 75 mg PO DAILY Print Language: Chinese
[2023-11-30 15:23] LABS: MANUAL DIFF FLAG NO
[2023-11-30 15:25] LABS: Basophils Percent Auto 0.3 % (0-2); Eosinophils Absolute Auto 0.1 X10*3/uL (0.0-0.4); Eosinophils Percent Auto 0.6 % (0-4); Hemoglobin 10.3 g/dl (14.0-18.0); Imm Gran Abs Auto 0.08 X10*3/uL (0.00-0.03); Imm Gran Pct Auto 0.7 % (0.0-0.4); Lymphocytes Absolute Auto 2.5 X10*3/uL (1.2-4.9); Lymphocytes Percent Auto 21.3 % (20-40); Mean Corpuscular HGB Conc 31.2 g/dl (31.0-36.0); Mean Corpuscular Hemoglobin 23.7 pg (27.0-33.0); Mean Corpuscular Volume 75.9 fL (80.0-98.0); Monocytes Absolute Auto 1.1 X10*3/uL (0.1-1.2); Monocytes Percent Auto 8.9 % (2-11); Neutrophils Absolute Auto 8.1 x10*3/uL (2.0-8.3); Neutrophils Percent Auto 68.2 % (45-73); Platelet Count 468 X10*3/uL (160-400); Red Blood Count 4.35 X10*6/uL (4.60-5.80); Red Cell Distribution Width 17.2 % (11.0-16.0); White Blood Count 11.9 X10*3/uL (4.8-10.8)
[2023-11-30 15:30] LABS: INTERNATIONAL NORM RATIO 1.2 (0.9-1.1); Prothrombin Time 14.9 SEC (11.1-13.3)
[2023-11-30 15:37] LABS: Lactic Acid 0.9 mmol/L (0.5-2.0)
[2023-11-30 15:43] LABS: Alanine Aminotransferase 24 U/L (0-40); Albumin Level 3.9 g/dL (3.5-5.0); Alkaline Phosphatase 74 U/L (39-117); Anion Gap 12 (12-20); Aspartate Amino Transferase 16 U/L (5-37); Bilirubin Direct 0.2 mg/dL (0.0-0.5); Bilirubin Total 0.6 mg/dL (0.0-1.0); Blood Urea Nitrogen 29 mg/dL (9-16); Calcium 9.2 mg/dL (8.4-10.2); Carbon Dioxide 23 mmol/L (22-29); Chloride 107 mmol/L (96-108); Creatinine Clr Calc Pharmacy 69.8; Estimated Glomerular Filt Rate > 60; Glucose Random 91 mg/dL (60-115); Magnesium 2.2 mg/dL (1.6-2.6); Potassium 3.9 mmol/L (3.3-5.1); Sodium 138 mmol/L (135-145)
[2023-11-30 15:45] LABS: Troponin-I High Sensitivity 7.3 ng/L (<3.5-35.0)
[2023-11-30 15:49] LABS: B Type Natriuretic Peptide 171 pg/mL (<100)
[2023-11-30 16:00] VITALS: BP 125/106; PULSE 85; RESP 21; TEMP 36.2; O2SAT 99
[2023-11-30 16:03] LABS: Influenza A PCR NEGATIVE (Negative); Influenza B PCR NEGATIVE (Negative); Resp Syncy Virus RNA Qual PCR NEGATIVE (Negative); SARS COV2 PCR INHOUSE NEGATIVE (Negative)
[2023-11-30] MEDS: Morphine Sulfate 2 MG/ML CARTRIDGE IVPUSH ×2 (16:26→19:41)
[2023-11-30] MEDS: Acetaminophen 325 MG TABLET 650 MG PO (16:26)
[2023-11-30] MEDS: iohexoL 350 MG/ML 100 ML INFUS..BTL 85 ML IV (17:10)
[2023-11-30 18:34] LABS: Appearance Urine Clear; Color Urine Yellow; Glucose Urine UA Negative (Negative); Leukocyte Esterase Urine Negative (Negative); Nitrite Urine Negative (Negative); PH 5.5 (5.0-9.0); Specific Gravity - Urine >= 1.030 (1.005-1.025); Urine Blood Negative (Negative); Urine Ketones Trace mg/dL (Negative); Urine Protein Negative (Neg-Trace)
[2023-11-30 18:53] LABS: Troponin-I High Sensitivity 6.9 ng/L (<3.5-35.0)
--- NOTE | 2023-11-30 19:12 | PC.NURSE ---
report received from Anatoly CASANOVA, assume care of pt at this time
[2023-11-30 20:16] VITALS: BP 125/98; PULSE 85; RESP 20; TEMP 36.2; O2SAT 99
== END 2023-11-30 20:00 | disposition still patient (30) ==
PROVIDERS: Physician Assistant; Emergency Provider Emergency Medicine
DX: R06.00 Dyspnea, unspecified (principal); R10.33 Periumbilical pain; R07.9 Chest pain, unspecified; R06.02 Shortness of breath; Z03.818 Encounter for observation for suspected exposure to other biological agents ruled out; I10 Essential (primary) hypertension; I48.91 Unspecified atrial fibrillation; J45.909 Unspecified asthma, uncomplicated; Z79.899 Other long term (current) drug therapy; Z79.01 Long term (current) use of anticoagulants
CPT/HCPCS: 0241U; 36415; 71045; 74177; 80048; 80076; 81003; 83605; 83735; 83880; 84484; 85025; 85610; 87040; 93005; 96374; 96376; 99284; J2270; Q9967

== ENCOUNTER → 2023-11-30 13:44 | Outpatient (BNV) | payer MEDICARE, MEDICAID, SELFPAY | PROVIDERS: Emergency Provider Emergency Medicine; Visit Provider Internal Medicine Cardiovascular Disease | DX: R94.31 Abnormal electrocardiogram [ECG] [EKG] (principal) | CPT/HCPCS: 93010 ==

== ENCOUNTER 2023-12-06 11:11 | Emergency (ER) | payer MEDICARE, MEDICAID, SELFPAY ==
--- NOTE | ~2023-12-06 | CT_ITS ---
EXAMINATION: CT HEAD WITHOUT CONTRAST CT CERVICAL SPINE WITHOUT CONTRAST CLINICAL INFORMATION: Fall. COMPARISON: CT head and cervical spine 11/09/2023. TECHNIQUE: Contiguous axial imaging was performed from the skull base to vertex without intravenous administration of contrast. Contiguous axial imaging was performed from the upper chest through the skull base without intravenous administration of contrast. Coronal and sagittal reformats were obtained at the acquisition workstation. This CT examination was performed using dose optimization techniques as appropriate, variously including the following: *Automated exposure control *Adjustment of mA and/or kV according to patient size (this includes techniques or standardized protocols for targeted exams where dose is matched to indication/reason for exam; i.e. extremities or head) *Use of iterative reconstruction technique DLP: 841 and 482 mGy-cm FINDINGS: Head: There is no evidence of acute intracranial hemorrhage or edematous territorial infarction. Scattered hypoattenuation in the periventricular and deep white matter are consistent with moderate microangiopathy. Valentin-white matter differentiation is preserved. Proportional prominence of the ventricles and sulcal spaces. No evidence for obstructive hydrocephalus. No abnormal mass effect or midline shift. No extra-axial fluid collections. No acute soft tissue or osseous abnormalities. The mastoid air cells and paranasal sinuses are clear. Cervical Spine: The atlantooccipital and atlantoaxial articulations remain well aligned. Straightening of the normal cervical lordosis. Otherwise, there is anatomic alignment of the vertebral bodies and posterior elements. No evidence of acute fracture or subluxation. Stable compression deformity of the T1 vertebral body compared to 11/09/2023. Moderate multilevel cervical spondylosis with intervertebral disc height loss and uncal hypertrophy, leading to various degrees of neural foraminal encroachment. Chronic nonaggressive appearing sclerotic osseous lesions most suggestive of bone islands. There is no prevertebral soft tissue swelling. The thyroid gland and remaining cervical soft tissues are normal in appearance. The lung apices demonstrate no abnormalities. CT/CT cervical spine wo IV con IMPRESSION: 1. No acute intracranial pathology. 2. No acute cervical spinal fractures or malalignment. 3. Chronic superior endplate compression deformity at T1, unchanged.
--- NOTE | ~2023-12-06 | XR_ITS ---
EXAMINATION: XR SHOULDER, LEFT CLINICAL INFORMATION: Shoulder pain, fall COMPARISON: None available. TECHNIQUE: AP external rotation, Grashey, scapular Y, and axillary views of the left shoulder. FINDINGS: No acute fracture or subluxation is detected. Glenohumeral osteoarthrosis is evident with joint space narrowing and osteophyte formation. The acromioclavicular joint is intact. Cortical thickening and trabecular coarsening are noted in the left clavicle and along the lateral margin of the scapula suggestive of Paget's disease. XR/XR shoulder LT min 2V IMPRESSION: 1. No acute fracture or subluxation of the left shoulder. 2. Glenohumeral osteoarthrosis. 3. Cortical thickening and trabecular coarsening in the left clavicle and along the lateral aspect of the scapula suggesting Paget's disease.
--- NOTE | ~2023-12-06 | CT_ITS ---
EXAMINATION: CT abdomen pelvis w IV con, CT chest w IV con CLINICAL INFORMATION: Reason for Exam fall abd trauma, chest wall trauma. COMPARISON: None TECHNIQUE: Multidetector volumetric imaging was performed through the chest, abdomen and pelvis with IV contrast. There was administration of 85 mL of Omnipaque 350 intravenous contrast. Sagittal and coronal reformatted images were obtained on the technologist's workstation. This CT examination was performed using dose optimization techniques as appropriate, variously including the following: *Automated exposure control *Adjustment of mA and/or kV according to patient size (this includes techniques or standardized protocols for targeted exams where dose is matched to indication/reason for exam; i.e. extremities or head) *Use of iterative reconstruction technique DLP: 1454 mGy-cm FINDINGS: LUNG: No focal consolidation, nodules or masses. PLEURA: No pleural effusion or pneumothorax. MEDIASTINUM: Normal heart size. No pericardial effusion. No hilar or mediastinal lymphadenopathy. VASCULAR: Normal caliber thoracic aorta. There are coronary artery calcifications. There is no evidence of mediastinal hematoma or pericardial effusion. CHEST WALL/AXILLA: No axillary or internal mammary lymphadenopathy. LIVER, GALLBLADDER, AND BILIARY TREE: The liver is normal in size, shape, and attenuation. No focal hepatic lesion or biliary ductal dilatation is present. The gallbladder is unremarkable with no evidence of radiopaque gallstones, gallbladder wall thickening, or obvious pericholecystic surgically absent. PANCREAS: The pancreas is atrophic but otherwise unremarkable. SPLEEN: Unremarkable. ADRENAL GLANDS: Unremarkable. KIDNEYS AND URETERS: Bilateral renal cortical thinning and perirenal infiltration are not significantly changed since the prior study. There is no obstructive uropathy or renal hematoma. BLADDER: Unremarkable. GASTROINTESTINAL TRACT: Postsurgical changes are evident about the esophagogastric junction. No dilated large or small bowel loops are identified. The appendix images normally. Colonic diverticula are evident in the sigmoid without diverticulitis. The small and large bowel are unremarkable. The appendix is unremarkable. ABDOMINAL WALL: A fat-containing left inguinal hernia is again evident. There is a mesh graft repair of a midline abdominal hernia with no evidence of hernia recurrence. LYMPH NODES: Normal. VASCULAR: Considerable aortoiliac atherosclerotic disease is again noted. There is no aneurysm. PELVIC VISCERA: There are radiation sources within the prostate gland. OSSEOUS STRUCTURES: L1 vertebroplasty and T11 inferior endplate compression fractures are unchanged since 08/21/2022. There is also mild stable loss of height at T1. There is a healed sternal fracture. No acute fracture or suspicious bone lesion is detected. There is a chronic deformity of the left femoral arthroplasty, with the acetabular component separate from the femoral component. The femur appears retracted proximally and separate from the acetabular component. The left femoral head component to the arthroplasty is not visualized. CT/CT abdomen pelvis w IV con IMPRESSION: 1. No acute posttraumatic findings in the chest, abdomen or pelvis, and no significant interval interval change since 08/21/2022
--- NOTE | 2023-12-06 11:15 | ECG_ITS ---
Test Reason : FALL Blood Pressure : / mmHG Vent. Rate : 077 BPM Atrial Rate : 077 BPM P-R Int : 154 ms QRS Dur : 074 ms QT Int : 374 ms P-R-T Axes : 030 036 063 degrees QTc Int : 423 ms Sinus rhythm with Premature atrial complexes Low voltage QRS Possible Lateral infarct (cited on or before 18-DEC-2022) Abnormal ECG When compared with ECG of 30-NOV-2023 15:47, Criteria for Septal infarct are no longer Present QT has shortened Referred By: Franky Escobar Electronically Signed By:CONOR VALERO MD
[2023-12-06 11:19] VITALS: BP 149/86; BP 152/80; PULSE 82; PULSE 84; RESP 20; TEMP 36.6; O2SAT 100; O2SAT 98; BMI 30.9
--- NOTE | 2023-12-06 11:25 | ED_ITS ---
HPI - Fall General Chief Complaint: Fall Stated Complaint: FALL WITH HEAD STRIKE SHOULDER PAIN Source: patient Mode of arrival: ambulatory Limitations: no limitations History of Present Illness ED Provider: Thomas PAIGE HPI Narrative: 78-year-old male history of cognitive impairment, delirium, asthma, anxiety, iron deficiency, pulmonary embolism on Eliquis, diverticular disease, GERD, hypertension, obesity presenting with left shoulder pain, right hip pain status post fall off his wheelchair prior to arrival. He reports head strike no loss of consciousness. Is on Eliquis daily. He is living in independent living and feels like he has a mass in his having a difficult time with activities of daily living. No preceding symptoms to fall. Unclear exactly how he fell. What is bothering him most is his left shoulder. He reports he can not move it secondary to pain. Denies chest pain, shortness of breath, nausea, vomiting, abdominal pain, headache, vision changes, dizziness and weakness. Related Data Home Medications ?Medication ?Instructions ?Recorded ?Confirmed acetaminophen 325 mg tablet 650 mg PO Q4H PRN Fever Or Pain 09/30/23 10/25/23 (Tylenol) acetaminophen 325 mg tablet 650 mg PO TID 09/30/23 10/25/23 (Tylenol) calcium carbonate 500 mg PO BID PRN Indigestion 09/30/23 10/25/23 diclofenac sodium 1 % topical gel 4 g topical TID 09/30/23 10/25/23 gabapentin 100 mg capsule 200 mg PO BID 09/30/23 12/06/23 magnesium hydroxide 400 mg/5 mL 30 ml PO DAILY PRN Constipation 09/30/23 10/25/23 oral suspension (Milk of Magnesia) melatonin 10 mg tablet 10 mg PO BEDTIME 09/30/23 10/25/23 methyl salicylate-menthol topical 1 appl topical BID 09/30/23 10/25/23 cream metoprolol tartrate 25 mg tablet 25 mg PO BID 09/30/23 12/06/23 naloxone 4 mg/actuation nasal 4 mg intranasal Q3M PRN 09/30/23 10/25/23 spray (Narcan) sedation/unresponsive oxycodone 5 mg tablet 5 mg PO TID PRN Pain 09/30/23 10/25/23 polyethylene glycol 3350 17 17 g PO DAILY PRN Constipation 09/30/23 10/25/23 gram/dose oral powder (Miralax) simethicone 80 mg chewable tablet 80 mg PO Q8H PRN Indigestion 09/30/23 10/25/23 tamsulosin 0.4 mg capsule (Flomax) 0.4 mg PO BEDTIME 09/30/23 12/06/23 amlodipine 2.5 mg tablet 2.5 mg PO DAILY 11/09/23 12/06/23 cetirizine 10 mg tablet 10 mg PO DAILY 11/09/23 11/09/23 divalproex 500 mg tablet,delayed 500 mg PO BEDTIME 11/09/23 12/06/23 release (Depakote) fluticasone propionate 50 1 spray intranasal BID 11/09/23 12/06/23 mcg/actuation nasal spray,suspension lidocaine 4 % topical patch 1 patch topical DAILY PRN pain 11/09/23 11/09/23 (Lidocaine Pain Relief) nystatin-triamcinolone 100,000 1 appl topical BID PRN Rash 11/09/23 11/09/23 unit/g-0.1 % topical cream pantoprazole 40 mg tablet,delayed 40 mg PO DAILY@0630 11/09/23 12/06/23 release vibegron 75 mg tablet (Gemtesa) 75 mg PO DAILY 11/09/23 12/06/23 venlafaxine 37.5 mg tablet 37.5 mg PO DAILY 12/06/23 12/06/23 venlafaxine 75 mg tablet 75 mg PO BID 12/06/23 12/06/23 Previous Rx's ?Medication ?Instructions ?Recorded syringe with needle, safety 3 mL #100 ea 06/02/21 25 gauge x 5/8 (BD Safety-Jackie Detachable Needle) apixaban 5 mg tablet 5 mg PO BID 90 days #180 tabs 03/07/22 lorazepam 1 mg tablet 1 mg PO BID PRN Anxiety #60 tabs 12/03/23 Allergies Allergy/AdvReac Type Severity Reaction Status Date / Time carisoprodol [From Soma] Allergy Mild MENTAL Verified 12/06/23 11:23 STATUS CHANGE, BECOMES AGGRESIVE codeine [Codeine] Allergy Mild STOMACH Verified 12/06/23 11:23 UPSET, RASH gabapentin AdvReac Intermediate lousy Verified 12/06/23 11:23 feeling Review of Systems 2 Review of Systems: Yes all other systems are reviewed and are negative [facility] Past Medical History Attestation statement: The following information was validated with the patient. Source: old records reviewed and nursing notes reviewed Medical History Incisional hernia Premature atrial complexes Shortness of breath Rash Asthma exacerbation Leukocytosis Serum potassium elevated Low vitamin D level Headache Fatigue Moderate recurrent major depression Hospital discharge follow-up Chest tightness Dyspnea on exertion Allergic bronchitis Generalized anxiety disorder Tinea cruris SOB (shortness of breath) on exertion Constipation Atrial fibrillation Knee fracture, left Wedge compression fracture of L1 vertebra Prostate cancer Iron deficiency anemia Obstructive sleep apnea Vitamin D deficiency Diverticular disease Obesity (BMI 30-39.9) Peptic ulcer disease Degenerative disc disease GERD (gastroesophageal reflux disease) Anxiety and depression Vitamin B12 deficiency Gout Hypertension Fatigue Dysuria Surgical History History of colonoscopy History of hemiarthroplasty of left hip H/O rectal polypectomy History of knee replacement procedure of left knee H/O hernia repair History of pyloroplasty History of bowel resection History of cholecystectomy Family History Family History Father Diabetes Acute kidney failure Glaucoma Mother Lung cancer Social History Social History Household Members: None Housing: Apartment Do you presently have visiting nurse or other home services: No Alcohol intake: never Comment: sitter at bedside Patient Tobacco Use Status: Former Tobacco user Tobacco use type: Cigar Smoked in Last 30 Days: No e-Cigarette/Vaping Use: Currently Using Second Hand Smoke Exposure: No Use of substances other than those prescribed or required for medical reasons: No Advance Directives: Yes Advance Directives on File: Yes Advance Directives Date on File: 07/03/22 Do you have a plan to hurt others: No Plan service: No Current occupational status: retired Cognitive needs: No Hearing needs: Yes Vision needs: Yes Physical Exam 2 Vital Signs: Vital Signs: Last Vital Signs Temp 97.6 F 12/18/23 06:49 Pulse 60 12/18/23 06:49 Resp 18 12/18/23 06:49 BP 145/83 H 12/18/23 06:49 Pulse Ox 98 12/18/23 06:49 O2 Del Method Room Air 12/18/23 06:49 BMI result Body Mass Index 30.9 vss Appearance: Alert.? Oriented X3.? No acute distress.? Head: Normocephalic, atraumatic, no step-offs or deformities Eyes: Pupils equal, round and reactive to light.? ENT: Pharynx normal.? Neck: Normal inspection.? Neck supple.? CVS: Normal heart rate and rhythm.? Pulses normal.? Respiratory: No respiratory distress.? Breath sounds normal.? Abdomen: Soft and nontender.? Skin: Skin warm and dry.? Normal skin color.? Normal skin turgor.? Extremities: No lower extremity edema.? No calf ttp. Global weakness + patient cant move his left shoulder secondary to pain. No wrist drop bilaterally. 2+ radial pulses equal bilateral. Normal sensation distally. Patient with painful range of motion of right hip however able to move it with some difficulty. Full range of motion to left hip. Normal sensation distally to bilateral lower extremities. 2+ dorsalis pedis, anterior tibialis posterior tibialis pulses equal bilateral no footdrop. Abrasion overlying left knee Back: No midline tenderness, no C-spine tenderness, full range of motion, no CVA tenderness bilaterally Neuro: Oriented X 3.? No motor deficit.? No sensory deficit. CN 2-12 intact Course Reevaluation(s) Reevaluation #1: Chemistry unremarkable. Troponin negative nonischemic. CBC with chronic leukocytosis no left shift unlikely infectious in origin. UA without infection. Imaging pending. Time: 15:17 Reevaluation #2: CT head no acute intracranial pathology chronic superior endplate compression deformity of T1. No acute cervical spine fractures or malalignment. CT chest, abdomen no acute posttraumatic findings and chest, abdomen or pelvis. Patient is noted to have healed sternal fracture as well as chronic deformity of the left femoral arthroplasty this is old not acute. Xray of L shoulder pending Patient will be placed into physician observation to allow more time to be evaluated by PT and case management. Pain control as necessary. Time: 15:35 Additional Reevaluation(s): December 06, 2023, 7:00 p.m. received notification from the patient's nurse. He is currently complaining of chronic pain. Patient had been previously medicated with fentanyl. Will trial oxycodone whih the patient has taken at home without difficulty. Medications currently being reconciled. Of note, shoulder x-ray without any acute process. 10:00 p.m. patient resting comfortably at this time. December 07, 2023, 12:15 a.m.. Patient resting comfortably at this time. December 07, 2023, 2:00 a.m. patient resting comfortably at this time. Patient signed out in stable condition pending placement. 12/07/2023 0630 ---> Physician observation continues. Case management continues to follow. 12/08/2023 0630 ---> Physician observation continues. Case management continues to follow. 12/09/23 0639 -- vital signs stable. No acute overnight events per nursing notes. Med rec reviewed and completed. Physician observation continued pending case management and disposition. 12/10/23 physician observation continued, no overnight events reported by nursing. Vital signs stable. Case management following for disposition 12/11/23 08:02 Physician observation continued, no overnight events reported by nursing. Vitals stable. CM following for disposition as patient unable to safely care for self at home. Awaiting Psych eval. 12/12/23--07:30--physician observation continued. Psychiatry evaluated patient on 12/09/2023 and recommended OT evaluation to determine level of functional cognition. Pending OT evaluation. PT evaluated patient recommending short-term rehab. Case management working on placement. 12/13/23 @ 625 am - physician observation continued. no acute overnight events. patient met with protective services case worker last night, he is frustrated still being here in the ER since 12/05. pending OT evaluation and recs along with psychiatry. patient awake alert and oriented most of the time, intermittently confused per nursing. he is up ambulating to the bathroom with walker to the bathroom. will continue to monitor and f/u safe dispo plan 12/14/23 @ 7:23am - physician observation continued. no acute overnight events. VS remain stable. case management continuing to try to find placement. 12/15/23- Physician observation continued. Uneventful night. Vital signs stable. No complaints from nursing overnight. Med reconciliation reviewed and done. Pending disposition. Will continue to monitor. 12/16/23 08:06 physician observation continued, no overnight events reported by nursing. Still undetermined whether patient has capacity, D/C plan unclear, CM following. 12/17/2023 11:10AM - physician observation continued. No overnight events per nursing staff. Patient requesting his Ativan, patient previously prescribed Ativan t.i.d. p.r.n.. This was added onto the regimen. We will continue to monitor pending disposition. 12/18/23 @ 9:25 - physician observation continued overnight. No acute overnight events. Patient was seen by Psychiatry and it was recommended that patient return home with physical therapy and occupational therapy. His vital signs are stable. He would like to go home. Disposition is to home. Physician observation discontinued at this time. He does not require or meet medical necessity for inpatient admission. Patient is to be discharged home Medications Administered Generic Name Dose Route Start Last Admin Trade Name Freq PRN Reason Stop Dose Admin Acetaminophen 975 mg 12/06/23 15:36 12/17/23 20:11 Acetaminophen 325 Mg Tablet PO 975 mg BID PRN Administration Pain, Mild (Pain Scale 1-3) Amlodipine Besylate 2.5 mg 12/08/23 09:00 12/18/23 08:08 Amlodipine Besylate 2.5 Mg Tablet PO 2.5 mg DAILY MAGALIS Administration Protocol Divalproex Sodium 500 mg 12/07/23 21:00 12/17/23 22:00 Divalproex Sodium 500 Mg Tablet.Dr PO 500 mg BEDTIME MAGALIS Administration Fluticasone Propionate 1 spray 12/07/23 21:00 12/17/23 22:00 Fluticasone Propionate Nasal 16 Gm [place] NOSTRIL-B 1 spray BID MAGALIS Administration Gabapentin 200 mg 12/07/23 21:00 12/18/23 08:07 Gabapentin 100 Mg Capsule PO 200 mg BID MAGALIS Administration Lidocaine 1 patch 12/07/23 17:15 12/17/23 07:51 Lidocaine 4 % Patch Adh..Patch TRANSDERMA 1 patch DAILY MAGALIS Administration Protocol Lorazepam 1 mg 12/17/23 11:12 12/18/23 08:07 Lorazepam 1 Mg Tablet PO 1 mg TID PRN Administration anxiety Metoprolol Tartrate 25 mg 12/07/23 21:00 12/17/23 22:00 Metoprolol Tartrate 25 Mg Tablet PO 25 mg BID MAGALIS Administration Protocol Olanzapine 2.5 mg 12/07/23 20:33 12/16/23 19:34 Olanzapine 2.5 Mg Tablet PO 2.5 mg BID PRN Administration agitation Omeprazole 20 mg 12/08/23 06:30 12/18/23 06:05 Omeprazole 20 Mg Capsule.Dr PO 20 mg DAILY@0630 MAGALIS Administration Oxycodone HCl 5 mg 12/17/23 21:30 12/18/23 08:07 Oxycodone Hcl Immed Release 5 Mg Tablet PO 5 mg Q6H PRN Administration Pain, Severe (Pain Scale 7-10) Tamsulosin HCl 0.4 mg 12/07/23 21:00 12/17/23 22:00 Tamsulosin Hcl 0.4 Mg Capsule PO 0.4 mg BEDTIME MAGALIS Administration Venlafaxine HCl 75 mg 12/07/23 21:00 12/18/23 08:08 Venlafaxine Hcl 25 Mg Tablet PO 75 mg BID MAGALIS Administration Venlafaxine HCl 37.5 mg 12/08/23 09:00 12/18/23 08:09 Venlafaxine Hcl 25 Mg Tablet PO 37.5 mg DAILY MAGALIS Administration Discontinued Medications Generic Name Dose Route Start Last Admin Trade Name Freq PRN Reason Stop Dose Admin Fentanyl 50 mcg 12/06/23 11:24 12/06/23 11:53 Fentanyl Citrate/Pf 100 Mcg/2 Ml Vial IVPUSH 12/06/23 11:25 50 mcg ONCE ONE Administration Protocol Fentanyl 50 mcg 12/06/23 13:06 12/06/23 13:17 Fentanyl Citrate/Pf 100 Mcg/2 Ml Vial IVPUSH 12/06/23 13:07 50 mcg ONCE ONE Administration Protocol Lorazepam 0.5 mg 12/06/23 15:08 12/06/23 15:12 Lorazepam 0.5 Mg Tablet PO 12/06/23 15:09 0.5 mg ONCE ONE Administration Lorazepam 1 mg 12/07/23 19:44 12/10/23 05:39 Lorazepam 1 Mg Tablet PO 1 mg BID PRN Administration Anxiety Lorazepam 1 mg 12/10/23 17:17 12/15/23 12:26 Lorazepam 1 Mg Tablet PO 1 mg TID PRN Administration Anxiety Lorazepam 1 mg 12/13/23 17:25 12/13/23 17:39 Lorazepam 1 Mg Tablet PO 12/13/23 17:26 1 mg ONCE ONE Administration Non-Formulary Medication 75 mg 12/08/23 09:00 12/16/23 13:23 Vibegron [Gemtesa] PO Not Given DAILY MAGALIS Oxycodone HCl 10 mg 12/06/23 19:34 12/06/23 19:47 Oxycodone Hcl Immed Release 5 Mg Tablet PO 12/06/23 19:35 10 mg ONCE ONE Administration Oxycodone HCl 5 mg 12/07/23 17:07 12/12/23 14:30 Oxycodone Hcl Immed Release 5 Mg Tablet PO 5 mg Q6H PRN Administration Pain, Moderate(Pain Scale 4-6) Oxycodone HCl 5 mg 12/13/23 19:18 12/13/23 19:29 Oxycodone Hcl Immed Release 5 Mg Tablet PO 12/13/23 19:19 5 mg ONCE ONE Administration Oxycodone HCl 5 mg 12/15/23 09:38 12/15/23 09:51 Oxycodone Hcl Immed Release 5 Mg Tablet PO 12/15/23 09:39 5 mg ONCE ONE Administration Oxycodone HCl 5 mg 12/15/23 18:32 12/15/23 19:25 Oxycodone Hcl Immed Release 5 Mg Tablet PO 12/15/23 18:33 5 mg ONCE ONE Administration Oxycodone HCl 5 mg 12/16/23 10:20 12/16/23 10:32 Oxycodone Hcl Immed Release 5 Mg Tablet PO 12/16/23 10:21 5 mg ONCE ONE Administration Oxycodone HCl 5 mg 12/17/23 04:26 12/17/23 04:31 Oxycodone Hcl Immed Release 5 Mg Tablet PO 12/17/23 04:27 5 mg ONCE ONE Administration Simethicone 80 mg 12/15/23 16:51 12/15/23 16:56 Simethicone 80 Mg Tab.Chew PO 12/15/23 16:52 80 mg ONCE ONE Administration Medical Decision Making Medical Decision Making MDM Narrative: 78 yo m presents w/ fall now reporting r hip and and left shoulder pain. + head strike, no LOC. + blood thinners PE- patient cant move his left shoulder secondary to pain. No wrist drop bilaterally. 2+ radial pulses equal bilateral. Normal sensation distally. Patient with painful range of motion of right hip however able to move it with some difficulty. Full range of motion to left hip. Normal sensation distally to bilateral lower extremities. 2+ dorsalis pedis, anterior tibialis posterior tibialis pulses equal bilateral no footdrop. History and physical exam concerning for possible fracture of left shoulder/collarbone/humerus. Versus sprain or strain. Unlikely neurovascular compromise left upper extremity. Will also rule out hip fracture. Will rule out traumatic injury to head, neck, chest, abdomen and pelvis. Plan- labs, imaging, urine Differential Diagnosis Differential Diagnoses: The differential diagnosis associated with the presentation includes possible Admission/Observation Consideration of admission/observation: Escalation of care including admission/observation considered Lab Data MDM Lab Attestation statement: I reviewed the patient's lab results. 12/06/23 11:46 12/06/23 11:46 Labs: Lab Results 12/06/23 12/06/23 Range/Units 11:46 13:10 WBC 13.7 H (4.8-10.8) X10*3/uL RBC 4.13 L (4.60-5.80) X10*6/uL Hgb 10.0 L (14.0-18.0) g/dl Hct 32.3 L (42.0-52.0) % MCV 78.2 L (80.0-98.0) fL MCH 24.2 L (27.0-33.0) pg MCHC 31.0 (31.0-36.0) g/dl RDW 18.1 H (11.0-16.0) % Plt Count 321 D (160-400) X10*3/uL MPV 9.8 (9.4-12.4) fL Immature Gran % (Auto) 0.7 H (0.0-0.4) % Neut % (Auto) 75.5 H (45-73) % Lymph % (Auto) 13.8 L (20-40) % [place] % (Auto) 8.7 (2-11) % Eos % (Auto) 1.0 (0-4) % Baso % (Auto) 0.3 (0-2) % Lymph # (Auto) 1.9 (1.2-4.9) X10*3/uL [place] # (Auto) 1.2 (0.1-1.2) X10*3/uL Eos # (Auto) 0.1 (0.0-0.4) X10*3/uL Baso # (Auto) 0.0 (0.0-0.2) X10*3/uL Abs Immat Gran (auto) 0.09 H (0.00-0.03) X10*3/uL Absolute Neuts (auto) 10.4 H (2.0-8.3) x10*3/uL Absolute Nucleated RBC 0.000 (0.0-0.012) X10*3/uL Nucleated RBC % (auto) 0.0 (0.0-0.2) /100WBC Sodium 137 (135-145) mmol/L Potassium 4.6 (3.3-5.1) mmol/L Chloride 104 (96-108) mmol/L Carbon Dioxide 26 (22-29) mmol/L Anion Gap 12 (12-20) BUN 20 H (9-16) mg/dL Creatinine 0.83 (0.5-1.4) mg/dL Estim Creat Clear Calc 92.7 Estimated GFR > 60 Random Glucose 91 (60-115) mg/dL Calcium 8.6 D (8.4-10.2) mg/dL Magnesium 2.0 (1.6-2.6) mg/dL Total Bilirubin 0.3 (0.0-1.0) mg/dL AST 13 (5-37) U/L ALT 12 (0-40) U/L Alkaline Phosphatase 78 (39-117) U/L Troponin I High Sens 3.2 D (<3.5-35.0) ng/L Total Protein 6.3 L (6.5-8.0) g/dL Albumin 3.6 (3.5-5.0) g/dL Urine Color Yellow Urine Appearance Clear Urine pH 7.5 (5.0-9.0) Ur Specific [place] 1.025 (1.005-1.025) Urine Protein Negative (Neg-Trace) mg/dL Urine Glucose (UA) Negative (Negative) mg/dL Urine Ketones Negative (Negative) mg/dL Urine Blood Negative (Negative) Urine Nitrite Negative (Negative) Ur Leukocyte Esterase Negative (Negative) Independent Interpretation I performed an independent interpretation of an: EKG (Vent. Rate : 077 BPM Atrial Rate : 077 BPM P-R Int : 154 ms QRS Dur : 074 ms QT Int : 374 ms P-R-T Axes : 030 036 063 degrees QTc Int : 423 ms Sinus rhythm with Premature atrial complexes Low voltage QRS Possible Lateral infarct (cited on or before 18-DEC-2022) Abnorma) and CT Scan (CT/CT head/brain wo IV con IMPRESSION: 1. No acute intracranial pathology. 2. No acute cervical spinal fractures or malalignment. 3. Chronic superior endplate compression deformity at T1, unchanged.) Interpretation: CT/CT chest w IV con IMPRESSION: 1. No acute posttraumatic findings in the chest, abdomen or pelvis, and no significant interval interval change since 08/21/2022 Radiology Impression Discussion of test interpretation with radiology: I have reviewed the radiologist's reading. Radiologist Impression: [address] [address] XRay Report Signed Patient: Ottoniel Salas MR#: [id number] : 1945 Acct:[id number] Age/Sex: 78 / M ADM Date: 12/06/23 Loc: HO.ED Attending Dr: Ordering Physician: Franky Escobar Date of Service: 12/06/23 Procedure(s): XR shoulder LT min 2V Accession Number(s): [id number] cc: Franky Escobar; Physician,Unknown ~ EXAMINATION: XR SHOULDER, LEFT CLINICAL INFORMATION: Shoulder pain, fall COMPARISON: None available. TECHNIQUE: AP external rotation, Grashey, scapular Y, and axillary views of the left shoulder. FINDINGS: No acute fracture or subluxation is detected. Glenohumeral osteoarthrosis is evident with joint space narrowing and osteophyte formation. The acromioclavicular joint is intact. Cortical thickening and trabecular coarsening are noted in the left clavicle and along the lateral margin of the scapula suggestive of Paget's disease. XR/XR shoulder LT min 2V IMPRESSION: 1. No acute fracture or subluxation of the left shoulder. 2. Glenohumeral osteoarthrosis. 3. Cortical thickening and trabecular coarsening in the left clavicle and along the lateral aspect of the scapula suggesting Paget's disease. Dictated By: Sesar Calabrese MD Signed By: <Electronically signed by Sesar Calabrese MD in OV> 12/06/23 1610 DD/ 1600 TD/TT: [employer] Operator: External Record Review External record reviewed: Inpatient record, Office record, Outpatient record, Prior outpatient labs, Prior outpatient radiology and Primary care record Chronic Conditions Patient?s care impacted by: Hypertension and Other (cognitive impairment ) Critical Care Time Critical Care Time Critical Care Time: Yes Total Critical Care Time: 35 Attestation: I attest to this time spent taking care of the patient, obtaining history, physical, reviewing labs, imaging, speaking to my attending, specialist or hospitalist. Discharge Plan Discharge Clinical Impression: Fall, Left shoulder pain, Acute pain of right hip, Cognitive impairment, Other symptoms and signs involving cognitive functions and awareness, Frequent falls Patient Disposition: Home, Self-Care Instructions: Fall Prevention for Older Adults (ED) Additional Instructions: Follow-up with your doctor. Take all medications as prescribed Prescriptions: No Action (DME) BD Safety-Jackie Detachable Needl 3 mL 25 gauge x 5/8 syringe See Rx Instructions .ROUTE .MEDSUPPLY Qty: 100 12RF Rx Instructions: As directed apixaban 5 mg tablet 5 mg PO BID 90 Days Qty: 180 2RF calcium carbonate 500 mg calcium (1,250 mg) Tablet,Chewable 500 mg PO BID PRN (Reason: Indigestion) diclofenac sodium 1 % Gel 4 g TOPICAL TID Rx Instructions: Apply topically to right hip. lorazepam 1 mg tablet 1 mg PO BID PRN (Reason: Anxiety) Qty: 60 0RF acetaminophen [Tylenol] 325 mg Tablet 650 mg PO TID acetaminophen [Tylenol] 325 mg Tablet 650 mg PO Q4H PRN (Reason: Fever Or Pain) Rx Instructions: Discomfort/temp 101 or greater. magnesium hydroxide [Milk of Magnesia] 400 mg/5 mL Suspension 30 ml PO DAILY PRN (Reason: Constipation) Rx Instructions: for no BM in 3 DAYS tamsulosin [Flomax] 0.4 mg Capsule 0.4 mg PO BEDTIME gabapentin 100 mg Capsule 200 mg PO BID polyethylene glycol 3350 [Miralax] 17 gram/dose Powder 17 g PO DAILY PRN (Reason: Constipation) Rx Instructions: Mix with 4-6 Oz of fluid of choice. simethicone 80 mg Tablet,Chewable 80 mg PO Q8H PRN (Reason: Indigestion) oxycodone 5 mg Tablet 5 mg PO TID PRN (Reason: Pain) Muscle Rub with Menthol Cream 1 appl TOPICAL BID Rx Instructions: Neck and shoulders metoprolol tartrate 25 mg Tablet 25 mg PO BID Protocol: Hold for SBP/HR < HOLD for SBP < : 120 HOLD for HR < : 60 melatonin 10 mg Tablet 10 mg PO BEDTIME naloxone [Narcan] 4 mg/actuation [place],Non-Aerosol 4 mg INTRANASAL Q3M PRN (Reason: sedation/unresponsive) Rx Instructions: spray 1 dose into ONE nostril; alternate nostrils w each dose until help arrives venlafaxine 75 mg tablet 75 mg PO BID venlafaxine 37.5 mg tablet 37.5 mg PO DAILY lidocaine [Lidocaine Pain Relief] 4 % adhesive patch,medicated 1 patch topical DAILY PRN (Reason: pain) cetirizine 10 mg tablet 10 mg PO DAILY amlodipine 2.5 mg tablet 2.5 mg PO DAILY divalproex [Depakote] 500 mg tablet,delayed release (DR/EC) 500 mg PO BEDTIME pantoprazole 40 mg tablet,delayed release (DR/EC) 40 mg PO DAILY@0630 nystatin-triamcinolone 100,000-0.1 unit/g-% cream 1 appl topical BID PRN (Reason: Rash) fluticasone propionate 50 mcg/actuation spray,suspension 1 spray intranasal BID Gemtesa 75 mg tablet 75 mg PO DAILY Referrals: [facility] [Outside] Po,Thania Childs MD [Primary Care Provider] - Print Language: Armenian
[2023-12-06 11:49] LABS: MANUAL DIFF FLAG NO
[2023-12-06 11:53] VITALS: RESP 14
[2023-12-06] MEDS: fentaNYL citrate/PF 100 MCG/2 ML VIAL 50 MCG IVPUSH ×2 (11:53→13:17)
[2023-12-06 11:55] LABS: Basophils Percent Auto 0.3 % (0-2); Eosinophils Absolute Auto 0.1 X10*3/uL (0.0-0.4); Hematocrit 32.3 % (42.0-52.0); Imm Gran Abs Auto 0.09 X10*3/uL (0.00-0.03); Imm Gran Pct Auto 0.7 % (0.0-0.4); Lymphocytes Absolute Auto 1.9 X10*3/uL (1.2-4.9); Lymphocytes Percent Auto 13.8 % (20-40); Mean Corpuscular Hemoglobin 24.2 pg (27.0-33.0); Mean Corpuscular Volume 78.2 fL (80.0-98.0); Mean Platelet Volume 9.8 fL (9.4-12.4); Monocytes Absolute Auto 1.2 X10*3/uL (0.1-1.2); Monocytes Percent Auto 8.7 % (2-11); Neutrophils Absolute Auto 10.4 x10*3/uL (2.0-8.3); Neutrophils Percent Auto 75.5 % (45-73); Platelet Count 321 X10*3/uL (160-400); Red Blood Count 4.13 X10*6/uL (4.60-5.80); Red Cell Distribution Width 18.1 % (11.0-16.0); White Blood Count 13.7 X10*3/uL (4.8-10.8)
[2023-12-06 12:05] LABS: Alanine Aminotransferase 12 U/L (0-40); Albumin Level 3.6 g/dL (3.5-5.0); Alkaline Phosphatase 78 U/L (39-117); Anion Gap 12 (12-20); Aspartate Amino Transferase 13 U/L (5-37); Bilirubin Total 0.3 mg/dL (0.0-1.0); Blood Urea Nitrogen 20 mg/dL (9-16); Calcium 8.6 mg/dL (8.4-10.2); Carbon Dioxide 26 mmol/L (22-29); Chloride 104 mmol/L (96-108); Creatinine Clr Calc Pharmacy 92.7; Estimated Glomerular Filt Rate > 60; Glucose Random 91 mg/dL (60-115); Potassium 4.6 mmol/L (3.3-5.1); Sodium 137 mmol/L (135-145); Total Protein 6.3 g/dL (6.5-8.0)
[2023-12-06 12:15] LABS: Troponin-I High Sensitivity 3.2 ng/L (<3.5-35.0)
[2023-12-06 12:47] VITALS: BP 140/83; PULSE 75; RESP 14; TEMP 36.4; O2SAT 98
[2023-12-06 13:17] LABS: Appearance Urine Clear; Color Urine Yellow; Glucose Urine UA Negative (Negative); Leukocyte Esterase Urine Negative (Negative); Nitrite Urine Negative (Negative); PH 7.5 (5.0-9.0); Specific Gravity - Urine 1.025 (1.005-1.025); Urine Blood Negative (Negative); Urine Ketones Negative (Negative); Urine Protein Negative (Neg-Trace)
[2023-12-06] MEDS: LORazepam 0.5 MG TABLET PO (15:12)
[2023-12-06 16:02] VITALS: BP 126/99; PULSE 96; RESP 16; TEMP 36.5; O2SAT 96
[2023-12-06] MEDS: Acetaminophen 325 MG TABLET 975 MG PO (16:09)
--- NOTE | 2023-12-06 17:35 | PC.NURSE ---
called pharmacy to ask about a med rec and he will be added to their list to complete
--- NOTE | 2023-12-06 17:39 | MHC.CM.ED ---
CM attempted to meet with patient, however he was sleeping and did not wake to calling his name. Will assess when patient wakes. Pt is known to CM. Record review completed. Pt was recently discharged from ED to [facility] on 11/17. Pt was active with [facility] in the past. Pt lives alone in congregate housing in [place]. Pt is [place] and wears hearing aides. Pt has no contact with his family. HCP is on file. Friend, Yg Keller ([phone]). MOLST on file-DNR/DNI. Pt fell out of wheelchair per triage note. PT is pending. CM following for discharge planning.
[2023-12-06 18:08] VITALS: BP 141/91; PULSE 86; RESP 16; TEMP 36.7; O2SAT 98
--- NOTE | 2023-12-06 18:17 | PC.NURSE ---
pt moved from the main er to the overflow
--- NOTE | 2023-12-06 18:42 | PC.NURSE ---
called pharmacy to do the pt's med reconciliation
--- NOTE | 2023-12-06 19:21 | PC.NURSE ---
pt yelling for staff, attempting to get out of bed, redirected back into bed, requesting pain meds at this time. provider notified
[2023-12-06] MEDS: oxyCODONE HCl Immed Release 5 MG TABLET 10 MG PO (19:47)
[2023-12-06 19:57] VITALS: BP 139/86; PULSE 83; RESP 18; TEMP 36.4; O2SAT 95
--- NOTE | 2023-12-06 19:58 | MHC.EDTECH ---
This tech took over care of patient at 1900,rounds and vitals completed. Patient was yelling out stated I'm in pain and attempted to get OOB,patient was educated oncology research rn mcknight and RN medicated patient per jun. Call mcknight in reach
--- NOTE | 2023-12-06 20:19 | PHA.MEDREC ---
Addendum entered by Manuel Dunlap RPh 12/06/23 20:49: Med rec was reviewed. Original Note: Pharmacy Consult ? Medication Reconciliation Pharmacy has completed the medication reconciliation. patient was a poor historian. Patient says I don't know what I'm taking. Called patient's friend Yg and he was no help at all states he really can't tell me what the patient takes, however he did say he can bring his medications to [facility] [id number]. Patient was at [facility] from 11-18-23 to 11-26-23. spoke to Ottoniel at [facility] and he stated he doesn't have access to patients medication list once they are discharged. Utilized claim to confirm some medication. Couldn't confirm Apixaban 5 mg bid because claim states he got 11-18-23 for a 14 days supply.
--- NOTE | 2023-12-06 20:51 | MHC.CM.ED ---
CM met with patient prior to going to [facility] at the request of Dr. Jolly. Pt is alert and orientated x2. Patient appears confused, telling CM that he has been home from rehab for 2 months when he was sent to [facility] [place]/18[place]. Pt was agreeable to STR, but then was confused with the transfer to [facility], stating I'm not moving anywhere . CM was able to re-direct patient and assure him that he would have a PT evaluation in the morning. Pt upset about being able to get his medications. CM explained that patient would be able to get his medications. Pt lives alone in congregate housing in [place]. He tells CM he has some help, but not sure what help or who provides the help. Pt acknowledges his friend, Yg Keller ([phone]) as his HCP. It is on file. Pt uses a wheelchair mostly, but has a walker. Pt had [facility] in the past. Referral made in [facility] to confirm if they are providing services and to request PCP information. Pt has medicare/medicaid. Referrals (22) placed locally. Pt may need a psych evaluation for capacity if he refuses STR. Pt has had psych reviews in the past, without determination for capacity. Pt has a MOLST on file-DNR/DNI. CM will follow for safe discharge planning.
--- NOTE | 2023-12-06 20:58 | MHC.EDTECH ---
Patient ambulated to the bathroom with walker,with a steady gait and a 1 assist,patient started to go on floor as we walked to the BR, patient had a large bowel movement (soft - formed light brown in color),patient was cleaned and connor-care given,patient stated he felt weak, this tech brought him back in a wheelchair to bed,call mcknight in reach
--- NOTE | 2023-12-06 23:49 | MHC.EDTECH ---
Hourly rounds completed,patient is sleeping resp. rate wnl,call mcknight in reach at bedside
--- NOTE | 2023-12-07 00:20 | MHC.EDTECH ---
Patient attempted to sit on the side of the bed,patient was re-directed,assisted with the urinal patient voided 250MLS of clear yellow urine,patient also was incont.of a moderate amount of urine,connor-care given and pads changed,patient was given a can of michael angel and is sitting up at this time. call mcknight in reach
[2023-12-07] MEDS: Acetaminophen 325 MG TABLET 975 MG PO ×3 (02:53→20:13)
[2023-12-07 03:36] VITALS: BP 140/92; PULSE 85; RESP 18; TEMP 36.8; O2SAT 97
--- NOTE | 2023-12-07 03:37 | MHC.EDTECH ---
Hourly rounds and vitals completed,assisted patient with the urinal,patient voided 400MLS,patient is resting quietly at this time,call mcknight in reach
--- NOTE | 2023-12-07 05:11 | MHC.EDTECH ---
Patient urinated 450MLS in urinal.
--- NOTE | 2023-12-07 06:54 | MHC.EDTECH ---
Patient urinated 250MLS in urinal
[2023-12-07 09:33] VITALS: BP 140/92; PULSE 85; O2SAT 95
[2023-12-07 17:18] VITALS: BP 108/81; PULSE 109; RESP 19; TEMP 36.5; O2SAT 97
[2023-12-07] MEDS: oxyCODONE HCl Immed Release 5 MG TABLET PO ×2 (17:18→23:36)
[2023-12-07] MEDS: Lidocaine 4 % Patch ADH..PATCH 1 PATCH TRANSDERMA (17:19)
--- NOTE | 2023-12-07 19:32 | PC.NURSE ---
pt yelling and states, my feet is falling, help me' Pt is lying on the bed, feet is not falling off the bed.
--- NOTE | 2023-12-07 20:05 | PC.NURSE ---
pt moved to room1, r/t to the fact, he kept yelling out, that his feet was falling and then to put it underneathe the bed. Pt is very sweaty. Pt is not easily redirected. will cont plan of care
[2023-12-07] MEDS: Gabapentin 100 MG CAPSULE 200 MG PO (20:12)
[2023-12-07] MEDS: Metoprolol Tartrate 25 MG TABLET PO (20:13)
[2023-12-07] MEDS: Tamsulosin HCL 0.4 MG CAPSULE PO (20:13)
[2023-12-07] MEDS: LORazepam 1 MG TABLET PO (20:13)
[2023-12-07] MEDS: OLANZapine 2.5 MG TABLET PO (20:47)
[2023-12-07] MEDS: Divalproex Sodium 500 MG TABLET.DR PO (20:47)
--- NOTE | 2023-12-07 21:21 | PC.NURSE ---
pt is resting quietly on bed at this time, resp with ease, will cont plan of care
--- NOTE | 2023-12-07 22:55 | PC.NURSE ---
resting quietly, with eyes closed,resp with ease, no s/s of acute distress at this time
[2023-12-07] MEDS: Venlafaxine HCL 25 MG TABLET 75 MG PO (23:37)
--- NOTE | 2023-12-07 23:54 | MHC.EDTECH ---
THIS PCT ASSUMED CARE OF PATIENT AT 2300 ,YELLING AND GETTING OUT OF BED ,PATIENT WAS SOILED ,BED BATH GIVEN AND COMPLETE BED CHANGE ,CLEAN GOWN ON AND WARM BLANKET GIVEN ,PATIENT IS VERY CONFUSED ,RN IN ROOM PROVIDING 1:1 .
--- NOTE | 2023-12-08 00:22 | PC.NURSE ---
pt awaken and was yelling, trying to get out of the bed, pt sat on side of bed, and urinated in the floor, Pt assisted to clean up and bed was changed. Pt was medicated for pain. Pt keeps saying his left shoulder hurts so much. This nurse, sat in the room, with the patient for awhile, pt cont to c/o of shoulder pain,warn packs placed on shoulder. Pt states he needed to use urinal, pt assisted with urinal. Pt then asked for a bowl of raisin bran, explained to pt, we did not have that, but, I could get him a sandwich. Pt ate a turkey sandwich, and then said, he would go to sleep. Pt is resting quietly at this time
--- NOTE | 2023-12-08 00:46 | MHC.EDTECH ---
PATIENT QUIET AND SLEEPING ,TELLE SITTER CAMERA IN PLACE INSTEAD OF 1:1 .PLAN OF CARE CONTINUE .
--- NOTE | 2023-12-08 03:16 | MHC.EDTECH ---
t staff called because Patient was attempting to sit up ,Patient was assisted to use the urinal ,pt void 250 ml ,Patient was assisted back into bed ,Patient asked for michael angel was given ,Patient was settle into bed ,plan of care continue .
--- NOTE | 2023-12-08 04:06 | PC.NURSE ---
resting quietly on bed at this time, resp with ease, no s/s of any distress
[2023-12-08] MEDS: Omeprazole 20 MG CAPSULE.DR PO (06:15)
[2023-12-08 06:29] VITALS: BP 109/61; PULSE 78; RESP 16; TEMP 36.2; O2SAT 98
--- NOTE | 2023-12-08 06:30 | MHC.EDTECH ---
Patioent awake vitals taken ,pt needed to use urinal void ,450 ml ,then drank sips of water ,was assisted back into bed .
[2023-12-08] MEDS: oxyCODONE HCl Immed Release 5 MG TABLET PO ×3 (06:34→23:00)
[2023-12-08] MEDS: Venlafaxine HCL 25 MG TABLET 37.5 MG PO (09:41)
[2023-12-08] MEDS: Venlafaxine HCL 25 MG TABLET 75 MG PO ×2 (09:41→21:06)
[2023-12-08 09:42] VITALS: BP 109/61
[2023-12-08] MEDS: Metoprolol Tartrate 25 MG TABLET PO ×2 (09:42→21:05)
[2023-12-08] MEDS: Gabapentin 100 MG CAPSULE 200 MG PO ×2 (09:42→21:05)
[2023-12-08] MEDS: amLODIPine Besylate 2.5 MG TABLET PO (09:42)
[2023-12-08] MEDS: LORazepam 1 MG TABLET PO ×2 (09:42→21:06)
[2023-12-08] MEDS: Acetaminophen 325 MG TABLET 975 MG PO (09:43)
[2023-12-08] MEDS: Lidocaine 4 % Patch ADH..PATCH 1 PATCH TRANSDERMA (09:43)
[2023-12-08] MEDS: OLANZapine 2.5 MG TABLET PO ×2 (09:43→21:06)
[2023-12-08 14:00] VITALS: BP 91/57; PULSE 64; RESP 20; TEMP 36.8; O2SAT 96
[2023-12-08 21:05] VITALS: BP 91/57; PULSE 64
[2023-12-08] MEDS: Divalproex Sodium 500 MG TABLET.DR PO (21:05)
[2023-12-08] MEDS: Tamsulosin HCL 0.4 MG CAPSULE PO (21:06)
[2023-12-09] MEDS: Acetaminophen 325 MG TABLET 975 MG PO ×2 (05:01→19:31)
[2023-12-09] MEDS: Omeprazole 20 MG CAPSULE.DR PO (06:08)
[2023-12-09 06:14] VITALS: BP 99/62; PULSE 66; RESP 17; TEMP 36.7; O2SAT 96
[2023-12-09 07:59] VITALS: BP 126/78; PULSE 69; RESP 16; TEMP 36.6; O2SAT 100
[2023-12-09] MEDS: oxyCODONE HCl Immed Release 5 MG TABLET PO ×3 (08:16→20:31)
[2023-12-09] MEDS: Gabapentin 100 MG CAPSULE 200 MG PO ×2 (08:16→20:31)
[2023-12-09 08:17] VITALS: BP 126/78; PULSE 69
[2023-12-09] MEDS: Venlafaxine HCL 25 MG TABLET 75 MG PO ×2 (08:17→20:30)
[2023-12-09] MEDS: amLODIPine Besylate 2.5 MG TABLET PO (08:17)
[2023-12-09] MEDS: Metoprolol Tartrate 25 MG TABLET PO ×2 (08:17→20:31)
[2023-12-09] MEDS: Lidocaine 4 % Patch ADH..PATCH 1 PATCH TRANSDERMA (08:18)
--- NOTE | 2023-12-09 08:18 | PC.NURSE ---
Pt. medicated per MAR. Sitting at bedside eating breakfast at this time. No complaints, no signs of distress
--- NOTE | 2023-12-09 10:22 | PC.NURSE ---
ED Overflow is out of stock of pt.'s 09:00 Effexor. Called Pharmacy, they will be bringing up this medication.
[2023-12-09] MEDS: Venlafaxine HCL 25 MG TABLET 37.5 MG PO (10:44)
--- NOTE | 2023-12-09 12:28 | PC.NURSE ---
Psych. consult placed per provider.
--- NOTE | 2023-12-09 12:54 | MHC.CM.ED ---
Addendum entered by Gaviota Hernandez 12/09/23 13:06: SS called requesting update. CM explained that patient needs STR with probably transition to LTC, but there are issues with his insurance, so CM expects patient will be with [facility] for forseeable future. Addendum entered by Gaviota Hernandez 12/09/23 13:05: Awaiting psych evaluation for capacity. Original Note: CM received a telephone call from Tammie Siddiqui ([phone]) at patient's [facility]. She has concerns about patients ability to live safely at the facility. She tells CM that she has arranged help for him, and he either fires the help or he is so rude and difficult, that they do not want to care for him. She tells CM that his apartment is very cluttered and unkempt. She filed with [employer] today about his inability to care for himself at home. She is aware that CM will request a psych for capacity and CM explained that there are issues with his insurance, as his medicaid is partial, without a SNF benefit. Pt was just at [facility] on 11/17. Referral sent to [facility] financial services for assistance with conversion to standard. Patient will probably need STR with transition to LTC.
[2023-12-09] MEDS: LORazepam 1 MG TABLET PO (14:19)
[2023-12-09 15:25] VITALS: BP 97/71; PULSE 70; RESP 18; TEMP 36.5; O2SAT 97
--- NOTE | 2023-12-09 16:52 | P.CNPS_ITS ---
History of Present Illness Date of Service: 12/09/2023 Chief Complaint: FALL WITH HEAD STRIKE SHOULDER PAIN Reason for Consult: ability to care for himself Discussed with referring provider: Yes Sources of Information: patient interviewed, chart reviewed and crisis/core team assessment reviewed HPI Narrative: Mr. Salas is a 78 year-old male who self presented to [facility] after fall. Pt reported felt off wheelchair. Pt is known to [facility] through previous assessments including recurrent falls, and concerns in terms of his ability to care for himself. He was last seen by this contract writer on 10/01/2023 for assessment of capacity and also memory/cognitive work up. Back then he scored 21/30 on MOCA with most impairments in attention, recall, fairly intact orientation. He has been noted to have difficulty retaining some information while he has been in the hospital from day to day. Collateral information was given to case management regarding increasing concern in terms of is ability to care for himself such as doing grocery shopping or cooking for himself but at the same time declining services from meals on wheel and assistance by RAILROAD CAR REPAIR SUPERVISOR at home. Pt seen in the ED. He presents as calm and pleasant. He reports he asked meals on wheel not to come because he does not like their food. Pt claims he has a friend who visits him at times and he gets groceries and cooks for himself. His is not visibly malnourished and unclear how he may be in fact getting nutrition from. In terms of also declining RAILROAD CAR REPAIR SUPERVISOR services, pt reports RAILROAD CAR REPAIR SUPERVISOR would come and do some work for less than an hour and then would sit in his bed and socialized. Pt reports he did not like having someone in his apartment sitting around and asked this person to stop coming. Case management from his congregate housing has increased concern about state of his apartment although no clear description of whether is still is in livable condition or not. He denies SI/HI. No signs of psychosis or delusions. [facility] Medical History Incisional hernia Premature atrial complexes Shortness of breath Rash Asthma exacerbation Leukocytosis Serum potassium elevated Low vitamin D level Headache Fatigue Moderate recurrent major depression Hospital discharge follow-up Chest tightness Dyspnea on exertion Allergic bronchitis Generalized anxiety disorder Tinea cruris SOB (shortness of breath) on exertion Constipation Atrial fibrillation Knee fracture, left Wedge compression fracture of L1 vertebra Prostate cancer Iron deficiency anemia Obstructive sleep apnea Vitamin D deficiency Diverticular disease Obesity (BMI 30-39.9) Peptic ulcer disease Degenerative disc disease GERD (gastroesophageal reflux disease) Anxiety and depression Vitamin B12 deficiency Gout Hypertension Fatigue Dysuria Surgical History History of colonoscopy History of hemiarthroplasty of left hip H/O rectal polypectomy History of knee replacement procedure of left knee H/O hernia repair History of pyloroplasty History of bowel resection History of cholecystectomy Diagnostics Vital Signs (24Hr): Vital Signs - 24 hr 12/08/23 21:05 12/09/23 06:14 12/09/23 07:59 Temperature 98.1 F 97.8 F Pulse Rate 64 66 69 Respiratory Rate 17 16 Blood Pressure 91/57 L 99/62 126/78 Pulse Oximetry 96 100 Oxygen Delivery Method Room Air Room Air 12/09/23 08:17 12/09/23 08:17 12/09/23 15:25 Temperature 97.7 F Pulse Rate 69 70 Respiratory Rate 18 Blood Pressure 126/78 126/78 97/71 Pulse Oximetry 97 Oxygen Delivery Method Room Air BMI result Body Mass Index 30.9 Labs 12/06/23 11:46 12/06/23 11:46 Imaging Radiology Impressions: ITS Impressions Abdomen/Pelvis CT 12/06/23 13:30 IMPRESSION: 1. No acute posttraumatic findings in the chest, abdomen or pelvis, and no significant interval interval change since 08/21/[address] 12/06/23 13:30 IMPRESSION: 1. No acute intracranial pathology. 2. No acute cervical spinal fractures or malalignment. 3. Chronic superior endplate compression deformity at T1, unchanged. Chest CT 12/06/23 13:30 IMPRESSION: 1. No acute posttraumatic findings in the chest, abdomen or pelvis, and no significant interval interval change since 08/21/[address] 12/06/23 13:30 IMPRESSION: 1. No acute intracranial pathology. 2. No acute cervical spinal fractures or malalignment. 3. Chronic superior endplate compression deformity at T1, unchanged. Shoulder X-Ray 12/06/23 16:00 IMPRESSION: 1. No acute fracture or subluxation of the left shoulder. 2. Glenohumeral osteoarthrosis. 3. Cortical thickening and trabecular coarsening in the left clavicle and along the lateral aspect of the scapula suggesting Paget's disease. Mental Status Exam Mental Status Exam Narrative: Appearance: wearing hospital gown, fair hygiene, in NAD Behavior: cooperative Psychomotor: no agitation or retardation noted Speech: clear, normal rate/rhythm/volume, spontaneous TP: mostly linear TC: somewhat open to have more supports in the community but he is inconsistent with this Mood: good Affect: congruent SI: none HI: none Delusions: none Insight/judgment: poor x 2. memory/cog: alert, oriented x 3. MOCA on 09/2023 with impairments in recall, attention, fairly intact orientation. Medications Medications Current Medications Acetaminophen (Acetaminophen 325 Mg Tablet) 975 mg PO BID PRN PRN Reason: Pain, Mild (Pain Scale 1-3) Last Admin: 12/09/23 05:01 Dose: 975 mg Amlodipine Besylate (Amlodipine Besylate 2.5 Mg Tablet) 2.5 mg PO DAILY [facility]; Protocol Last Admin: 12/09/23 08:17 Dose: 2.5 mg Divalproex Sodium (Divalproex Sodium 500 Mg Tablet.Dr) 500 mg PO BEDTIME [facility] Last Admin: 12/08/23 21:05 Dose: 500 mg Fluticasone Propionate (Fluticasone Propionate Nasal 16 Gm [place]) 1 spray NOSTRIL-B BID [facility] Last Admin: 12/09/23 10:11 Dose: Not Given Gabapentin (Gabapentin 100 Mg Capsule) 200 mg PO BID [facility] Last Admin: 12/09/23 08:16 Dose: 200 mg Lidocaine (Lidocaine 4 % Patch Adh..Patch) 1 patch TRANSDERMA DAILY [facility]; Protocol Last Admin: 12/09/23 08:18 Dose: 1 patch Lorazepam (Lorazepam 1 Mg Tablet) 1 mg PO BID PRN PRN Reason: Anxiety Last Admin: 12/09/23 14:19 Dose: 1 mg Metoprolol Tartrate (Metoprolol Tartrate 25 Mg Tablet) 25 mg PO BID [facility]; Protocol Last Admin: 12/09/23 08:17 Dose: 25 mg Non-Formulary Medication (Vibegron [Gemtesa]) 75 mg PO DAILY [facility] Olanzapine (Olanzapine 2.5 Mg Tablet) 2.5 mg PO BID PRN PRN Reason: agitation Last Admin: 12/08/23 21:06 Dose: 2.5 mg Omeprazole (Omeprazole 20 Mg Capsule.) 20 mg PO DAILY@0630 [facility] Last Admin: 12/09/23 06:08 Dose: 20 mg Oxycodone HCl (Oxycodone Hcl Immed Release 5 Mg Tablet) 5 mg PO Q6H PRN PRN Reason: Pain, Moderate(Pain Scale 4-6) Last Admin: 12/09/23 14:19 Dose: 5 mg Tamsulosin HCl (Tamsulosin Hcl 0.4 Mg Capsule) 0.4 mg PO BEDTIME [facility] Last Admin: 12/08/23 21:06 Dose: 0.4 mg Venlafaxine HCl (Venlafaxine Hcl 25 Mg Tablet) 75 mg PO BID [facility] Last Admin: 12/09/23 08:17 Dose: 75 mg Venlafaxine HCl (Venlafaxine Hcl 25 Mg Tablet) 37.5 mg PO DAILY [facility] Last Admin: 12/09/23 10:44 Dose: 37.5 mg Allergies Allergies Allergy/AdvReac Type Severity Reaction Status Date / Time carisoprodol [From Soma] Allergy Mild MENTAL Verified 12/06/23 11:23 STATUS CHANGE, BECOMES AGGRESIVE codeine [Codeine] Allergy Mild STOMACH Verified 12/06/23 11:23 UPSET, RASH gabapentin AdvReac Intermediate lousy Verified 12/06/23 11:23 feeling Assessment & Plan Assessment & Plan (1) Cognitive impairment: Status: Acute Code(s): R41.89 - Other symptoms and signs involving cognitive functions and awareness Plan Mr. 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 His orientation is intact but his ability to retain day to day information is more impaired. He requires assistance with medication management, planning and coordination care, but often he rejects this help. His mobility is poor and he has had frequent falls in the past several months. He does call the ambulance and comes to the ED. His MOCA reflects moderate impairment, it would be beneficial to complete ACL to see functional level and his ability to safely live in the community. PLAN 1. Order OT to complete ACL to determine level of functional cognition. 2. He does need more supports in the community including RAILROAD CAR REPAIR SUPERVISOR, [facility]- but he declines this services. Total time managing care of this patient today ____ minutes.
--- NOTE | 2023-12-09 19:13 | PC.NURSE ---
received report from Kamilla CASANOVA, assume care of pt at this time
--- NOTE | 2023-12-09 19:32 | PC.NURSE ---
pt request something for the pain in his shoulder, heat pad given, tylenol given
[2023-12-09] MEDS: Divalproex Sodium 500 MG TABLET.DR PO (20:29)
[2023-12-09] MEDS: OLANZapine 2.5 MG TABLET PO (20:30)
[2023-12-09] MEDS: Tamsulosin HCL 0.4 MG CAPSULE PO (20:32)
[2023-12-09 23:45] VITALS: BP 108/66; PULSE 70; RESP 18; TEMP 36.6; O2SAT 98
--- NOTE | 2023-12-10 02:38 | PC.NURSE ---
1900 - Assumed care of this patient. Patient resting quietly , no complaints at this time. Safety measures in place, call mcknight within reach.
[2023-12-10 04:42] VITALS: BP 125/77; PULSE 59; RESP 16; TEMP 36.6; O2SAT 98
[2023-12-10] MEDS: Omeprazole 20 MG CAPSULE.DR PO (05:38)
[2023-12-10] MEDS: LORazepam 1 MG TABLET PO ×2 (05:39→17:34)
[2023-12-10 08:47] VITALS: BP 115/75; PULSE 72; RESP 18; O2SAT 100
[2023-12-10] MEDS: Lidocaine 4 % Patch ADH..PATCH 1 PATCH TRANSDERMA (09:17)
[2023-12-10] MEDS: Venlafaxine HCL 25 MG TABLET 75 MG PO ×2 (09:18→21:02)
[2023-12-10] MEDS: Venlafaxine HCL 25 MG TABLET 37.5 MG PO (09:19)
[2023-12-10] MEDS: Gabapentin 100 MG CAPSULE 200 MG PO ×2 (09:20→21:02)
[2023-12-10] MEDS: Metoprolol Tartrate 25 MG TABLET PO ×2 (09:21→21:02)
[2023-12-10] MEDS: amLODIPine Besylate 2.5 MG TABLET PO (09:21)
--- NOTE | 2023-12-10 12:15 | MHC.CM.ED ---
Patient remains in ER overflow. Psych consult for capacity is still pending. Vanessa from [facility] will meet with patient today. She has a couple of forms for patient to sign in order for her to be able to speak to [employer] on patient's behalf. Continue to monitor for d/c needs.
[2023-12-10] MEDS: oxyCODONE HCl Immed Release 5 MG TABLET PO ×2 (13:00→19:00)
[2023-12-10 14:25] VITALS: BP 118/65; PULSE 74; RESP 20; O2SAT 98
[2023-12-10] MEDS: Acetaminophen 325 MG TABLET 975 MG PO (17:36)
--- NOTE | 2023-12-10 17:57 | MHC.CM.ED ---
CM met with patient at his request. He states he is very angry. Does not understand why he is here. States he remembers CM, but does not remember any of our conversation from yesterday. Explained that Tammie, administrative services director at his congregate housing is very concerned about his ability to safely live alone in the facility. Explained that she filed her concerns with [facility]. Explained that psych will evaluate his ability to safely care for himself and make decisions. CM explained all of this to the patient yesterday. Also explained that there is a problem with his insurance and that financial services is working on it. Until his medicaid situation is resolved, he does not have a payor source for STR or LTC at this time. Explained that because there are concerns about his ability to safely care for himself, he cannot go home at this time. Explained that CM will meet with him tomorrow around supper time. Awaiting psych evaluation and report.
[2023-12-10 20:52] VITALS: BP 110/67; PULSE 73; RESP 18; TEMP 36.7; O2SAT 99
[2023-12-10 21:02] VITALS: BP 110/67; PULSE 73
[2023-12-10] MEDS: Divalproex Sodium 500 MG TABLET.DR PO (21:02)
[2023-12-10] MEDS: Tamsulosin HCL 0.4 MG CAPSULE PO (21:03)
--- NOTE | 2023-12-11 00:04 | MHC.EDTECH ---
THIS PCT ASSUMED CARE OF PT AT 2300 ,PT WATCHING TELEVISION ,NO APPARENT DISTRESS NOTED ,WILL CONTINUE TO MONITOR ,CALL RAMIREZ WITHIN PT REACH .
[2023-12-11] MEDS: oxyCODONE HCl Immed Release 5 MG TABLET PO ×3 (01:07→17:47)
--- NOTE | 2023-12-11 03:07 | MHC.EDTECH ---
Patient awake ,sat at the side of bed use urinal ,drank some michael angel ,warm blanket and sheet given ,Plan of care continue .
[2023-12-11 06:41] VITALS: BP 96/61; PULSE 58; RESP 16; TEMP 36.8; O2SAT 98
[2023-12-11] MEDS: Omeprazole 20 MG CAPSULE.DR PO (06:53)
[2023-12-11] MEDS: Venlafaxine HCL 25 MG TABLET 75 MG PO ×2 (08:21→20:06)
[2023-12-11] MEDS: amLODIPine Besylate 2.5 MG TABLET PO (08:21)
[2023-12-11] MEDS: Metoprolol Tartrate 25 MG TABLET PO ×2 (08:21→20:07)
[2023-12-11] MEDS: Gabapentin 100 MG CAPSULE 200 MG PO ×2 (08:22→20:06)
[2023-12-11] MEDS: Venlafaxine HCL 25 MG TABLET 37.5 MG PO (08:22)
[2023-12-11] MEDS: Lidocaine 4 % Patch ADH..PATCH 1 PATCH TRANSDERMA (08:22)
[2023-12-11] MEDS: LORazepam 1 MG TABLET PO ×2 (08:26→20:06)
--- NOTE | 2023-12-11 09:03 | MHC.EDTECH ---
pt had denture care done and ate breakfast 100%
--- NOTE | 2023-12-11 10:50 | MHC.EDTECH ---
pt was assisted to the bathroom with a walker and was assisted to wash up with a complete bed change
--- NOTE | 2023-12-11 11:43 | PC.NURSE ---
Pt. medicated per JUN.
--- NOTE | 2023-12-11 12:43 | MHC.EDTECH ---
pt ate 100 lunch
[2023-12-11 13:47] VITALS: BP 96/61; PULSE 60; RESP 16; TEMP 36.6; O2SAT 99
--- NOTE | 2023-12-11 18:12 | MHC.CM.ED ---
Per psych, ACL ordered to obtain more information regarding patients ability to care for himself independently at home. CM met with patient at his request. Again asking why he is here. Explained that psych is requesting another test to assess his ability to live alone at home safely. Explained that Tammie at his residence has concerns about him caring for himself and that he is resistant to help at home. Pt denies that he is resistant. Pt tells CM that he does cook for himself and will not eat the MOW, as they are not food! Patient tells CM that he has 2 problems at home. One is that his mattress is too high. He tells CM that he needs a lower mattress and he has not been able to order one from [employer] because he is in the hospital. His second problem is the shower. Pt told CM about this problem yesterday. Pt states there are 4 showers in his building to share. He tells CM he needs to use his wheelchair and carry a shower chair to the shower, shower, and then bring the chair back to his apartment. CM explained that if he is discharged home, he can have help with the shower with a FAMILY SERVICES SPECIALIST. Pt does not want a FAMILY SERVICES SPECIALIST, but agrees he needs help. Pt is distressed that he is still here in the hospital. CM explained that we are waiting for 1 more test, ACL. Pt is worried that he will be here over the weekend, and this causes him stress. CM explained that it takes time to complete all these assessments, and CM needs to be sure that he can be safe at home and that the housing will accept him back. PT is recommending STR, however patient has no payor. Waiting for MH partial conversion to standard. CM will meet with patient again tomorrow.
--- NOTE | 2023-12-11 18:43 | PC.NURSE ---
Patient medicated for pain per MAR , resting comfortably at this time.
[2023-12-11] MEDS: Tamsulosin HCL 0.4 MG CAPSULE PO (20:06)
[2023-12-11] MEDS: Divalproex Sodium 500 MG TABLET.DR PO (20:06)
[2023-12-11 20:07] VITALS: BP 118/65; PULSE 67
[2023-12-11 21:25] VITALS: BP 119/74; PULSE 73; RESP 18; TEMP 36.2; O2SAT 95
[2023-12-12] MEDS: oxyCODONE HCl Immed Release 5 MG TABLET PO ×3 (02:09→14:30)
--- NOTE | 2023-12-12 02:22 | PC.NURSE ---
Patient c/o L shoulder pain, requested pain medication. PRN 5mg Oxycodone administered @0215. underwriter solicitation director offered cold/hot pack to place to L shoulder, pt refused, states it does not help much . Effect pending.
[2023-12-12] MEDS: Acetaminophen 325 MG TABLET 975 MG PO (04:15)
[2023-12-12 06:00] VITALS: BP 151/75; PULSE 59; RESP 18; TEMP 36.4; O2SAT 97
[2023-12-12] MEDS: Omeprazole 20 MG CAPSULE.DR PO (06:06)
[2023-12-12] MEDS: Gabapentin 100 MG CAPSULE 200 MG PO ×2 (08:47→21:23)
[2023-12-12 08:48] VITALS: BP 101/59; PULSE 64
[2023-12-12] MEDS: Venlafaxine HCL 25 MG TABLET 75 MG PO ×2 (08:48→21:23)
[2023-12-12] MEDS: Metoprolol Tartrate 25 MG TABLET PO ×2 (08:48→21:23)
[2023-12-12 08:49] VITALS: BP 101/59
[2023-12-12] MEDS: Lidocaine 4 % Patch ADH..PATCH 1 PATCH TRANSDERMA ×2 (08:49→14:30)
[2023-12-12] MEDS: amLODIPine Besylate 2.5 MG TABLET PO (08:49)
--- NOTE | 2023-12-12 10:13 | PC.NURSE ---
This RN resumed care of pt at 0700, patient ate breakfast with no concerns, given medicated per JUN, patient gotten up out of bed with ELEMENTARY ELL TEACHER to get washed up, once patient returned to bed he was tired and is currently resting, bed alarm on, camera in place, call mcknight within reach
[2023-12-12] MEDS: Venlafaxine HCL 25 MG TABLET 37.5 MG PO (11:00)
[2023-12-12] MEDS: LORazepam 1 MG TABLET PO ×2 (11:00→15:58)
--- NOTE | 2023-12-12 11:50 | PC.NURSE ---
mechanical engineering advisor in with patient and patients friend going over information at this time.
--- NOTE | 2023-12-12 13:30 | MHC.CM.ED ---
Patient remains in ER overflow. Still waiting for ACL assessment. Per Makeda of [facility] financial counselors, patient has to reapply for [facility] Both patient and Yg are aware of the paperwork that is necessary. Continue to monitor for d/c needs.
[2023-12-12 14:00] VITALS: BP 137/70; PULSE 64; RESP 12; TEMP 36.8; O2SAT 98
[2023-12-12] MEDS: OLANZapine 2.5 MG TABLET PO (14:30)
--- NOTE | 2023-12-12 14:40 | PC.NURSE ---
Pt called nursing in to discuss when he could get his pain medications at 1400, pt advised he could get them at 1445, pt was in agreement with plan. At 1430 patient became agitated with staff stating we never told him that. Emotional support provided, pt did start to calm down. This RN admisitered his PRN medications for pain and agitation. Pt then thanked this RN for the misunderstanding. Pt requesting to talk with NISA, NISA aware
--- NOTE | 2023-12-12 16:12 | PC.NURSE ---
Pt is starting to get very anxious about taking with CM, patient has been made aware multiple times they know he wants to talk with them and will be in to see him. CM aware.
--- NOTE | 2023-12-12 17:40 | MHC.EDTECH ---
pt ate 100% dinner
--- NOTE | 2023-12-12 18:28 | MHC.CM.ED ---
Addendum entered by Gaviota Hernandez 12/12/23 18:44: Acute rehab referrals made Original Note: CM met with patient at his request. Pt was happy to speak with CM. Shared his frustrations with being in the ED since 12/05 and not being able to go home. CM again explained that we are only concerned for his safety. Explained that CM is waiting for the OT report. Pt feels he did really well on the ACL and had no trouble lacing the leather. Patient calmed as he spoke with CM about his family relationships, even though those relationships are strained and he has no contact with his family. Pt is very grateful for his friend Yg and his assistance. Pt feels he is very cooperative at the congregate living and feels he is open to help. CM again stated that he has not been very accepting of help per Tammie, the resident coordinator. Ottoniel does not think this is correct. NISA explained that if the testing shows that he can care for himself, then he must be accepting of help in the apartment. Pt is active with [employer]. CM tiger text Halima Meza to review ACL testing and make recommendations.
[2023-12-12 21:23] VITALS: BP 138/78
[2023-12-12] MEDS: Tamsulosin HCL 0.4 MG CAPSULE PO (21:23)
[2023-12-12] MEDS: Divalproex Sodium 500 MG TABLET.DR PO (21:27)
[2023-12-12 22:00] VITALS: BP 95/58; PULSE 66; RESP 18; TEMP 36.9; O2SAT 98
[2023-12-13] MEDS: LORazepam 1 MG TABLET PO ×3 (02:37→17:39)
--- NOTE | 2023-12-13 05:24 | PC.NURSE ---
a&ox3 (self, place, year) - intermittent confusion and forgetful but redirectable. Intermittent interactions where patient is agitated. c/o pain in shoulder left, right hip pain - relieved with medications, see MAR. two incontinent of stool episodes overnight, patient ambulating with assistance and walker to bathroom. using urinal to void. PRN medications given for indicated reasons per MAR. safety and comfort maintained, call mcknight within reach.
[2023-12-13 06:00] VITALS: BP 132/77; PULSE 61; RESP 16; TEMP 36.6; O2SAT 99
--- NOTE | 2023-12-13 08:16 | MHC.EDTECH ---
this tech assumed care of pt at 0700, pt sleeping and shows no sign of distress, call mcknight within reach
[2023-12-13] MEDS: Gabapentin 100 MG CAPSULE 200 MG PO ×2 (08:52→21:54)
[2023-12-13] MEDS: Venlafaxine HCL 25 MG TABLET 37.5 MG PO (08:54)
[2023-12-13] MEDS: Venlafaxine HCL 25 MG TABLET 75 MG PO ×2 (08:54→21:52)
[2023-12-13 08:59] VITALS: BP 148/66; PULSE 66
[2023-12-13] MEDS: Metoprolol Tartrate 25 MG TABLET PO ×2 (08:59→21:52)
[2023-12-13] MEDS: amLODIPine Besylate 2.5 MG TABLET PO (08:59)
--- NOTE | 2023-12-13 09:02 | MHC.EDTECH ---
pt ate 100% of breakfast, this tech assisted pt to use the urinal and helped pt gain comfort back in the bed
--- NOTE | 2023-12-13 09:18 | PC.NURSE ---
assumed care of pt at 0700. alert and oriented. Pt ate breakfast, and took morning medications. He has bruising to his left shoulder and reports some pain in that area. Blood pressure taken and BP meds given. At this time pt asked for the lights off and is taking a nap. call mcknight within reach
--- NOTE | 2023-12-13 12:58 | PC.NURSE ---
pt is very anxious. he is anxious about DC planning and the psych eal. he reports that he really wants to go home. he is requesting his PRN ativan for anxiety
[2023-12-13 14:00] VITALS: BP 131/62; PULSE 65; RESP 16; TEMP 36.6; O2SAT 96
--- NOTE | 2023-12-13 18:07 | PC.NURSE ---
pt assisted to bathroom. full bed changed while he was in bathroom. one way back pt reported severe hip pain (12/06.) Only PRN Tylenol is available for pain 1-3. PA messaged for additional pain meds
--- NOTE | 2023-12-13 18:46 | PC.NURSE ---
pt refused tylenol for pain, also his pain scale rating is greater than PRN tylenol orders allow. Waiting for provider to order additional pain meds.
--- NOTE | 2023-12-13 19:02 | PC.NURSE ---
This RN assumed pt care @ 1900. Pt ca&ox3, no signs of distress. Pt resting bed watching tv Pt req pain meds, pt advised that previous RN sent message to provider x2 and this RN will do the same. Plan of care ongoing.
--- NOTE | 2023-12-13 19:05 | PC.NURSE ---
Pt oob req pain meds again This RN advised another message has been sent to provider. Zayra notified and aware pt req pain meds. No new orders at this time. Plan of care ongoing.
[2023-12-13] MEDS: oxyCODONE HCl Immed Release 5 MG TABLET PO (19:29)
--- NOTE | 2023-12-13 19:31 | PC.NURSE ---
Pt medicated per jun. Pt reporting 8/10 left hip pain. Pt req all his night time meds, pt advised those are not due until 2099. Plan of care ongoing.
--- NOTE | 2023-12-13 20:41 | PC.NURSE ---
Pt very aggressive regarding medications that he is requesting and does not have avail. This RN attempted to explain meds cannot be given unless there is an order in the pts mar, but pt began to use profanity. Provider notified and aware pt requesting meds for heartburn Plan of care ongoing
[2023-12-13 21:22] VITALS: BP 120/66; PULSE 64; RESP 20; TEMP 36.7; O2SAT 96
--- NOTE | 2023-12-13 21:27 | PC.NURSE ---
Pt requested and given urinal Plan of care ongoing.
--- NOTE | 2023-12-13 21:39 | PC.NURSE ---
Pt med not in [facility], pharmacy called and med requested. Pharmacy to send med. Plan of care ongoing.
[2023-12-13] MEDS: Divalproex Sodium 500 MG TABLET.DR PO (21:51)
[2023-12-13 21:52] VITALS: BP 120/66
[2023-12-13] MEDS: Tamsulosin HCL 0.4 MG CAPSULE PO (21:53)
--- NOTE | 2023-12-13 21:55 | PC.NURSE ---
Pt medicated per jun. Pt reporting pain @ coccyx, pressure bandage placed for comfort Plan of care ongoing.
[2023-12-14] MEDS: Acetaminophen 325 MG TABLET 975 MG PO ×2 (05:34→17:33)
[2023-12-14] MEDS: Omeprazole 20 MG CAPSULE.DR PO (05:35)
[2023-12-14 06:00] VITALS: BP 126/70; PULSE 76; RESP 18; TEMP 37.1
[2023-12-14] MEDS: Venlafaxine HCL 25 MG TABLET 75 MG PO ×2 (08:44→21:20)
[2023-12-14] MEDS: Gabapentin 100 MG CAPSULE 200 MG PO ×2 (08:45→21:20)
[2023-12-14 08:46] VITALS: BP 107/65
[2023-12-14] MEDS: amLODIPine Besylate 2.5 MG TABLET PO (08:46)
[2023-12-14 08:47] VITALS: BP 107/65; PULSE 78
[2023-12-14] MEDS: Metoprolol Tartrate 25 MG TABLET PO ×2 (08:47→21:20)
[2023-12-14] MEDS: Lidocaine 4 % Patch ADH..PATCH 1 PATCH TRANSDERMA (08:51)
[2023-12-14] MEDS: Venlafaxine HCL 25 MG TABLET 37.5 MG PO (10:16)
[2023-12-14] MEDS: LORazepam 1 MG TABLET PO ×2 (10:17→18:17)
[2023-12-14] MEDS: OLANZapine 2.5 MG TABLET PO (10:17)
[2023-12-14 14:00] VITALS: BP 126/63; PULSE 129; RESP 18; TEMP 36.2; O2SAT 96
[2023-12-14 18:00] VITALS: BP 111/67; PULSE 82; RESP 16; TEMP 36.6; O2SAT 100
[2023-12-14] MEDS: Tamsulosin HCL 0.4 MG CAPSULE PO (21:20)
[2023-12-14] MEDS: Divalproex Sodium 500 MG TABLET.DR PO (21:20)
[2023-12-14 21:26] VITALS: BP 124/75; PULSE 80; RESP 16; TEMP 36.6; O2SAT 96
--- NOTE | 2023-12-15 04:43 | PC.NURSE ---
Pt sleeping most of the night. Up to side of bed x2 to use urinal. Hearing aides at bedside. Camera in place.
[2023-12-15] MEDS: Omeprazole 20 MG CAPSULE.DR PO (05:34)
[2023-12-15] MEDS: Acetaminophen 325 MG TABLET 975 MG PO (05:34)
[2023-12-15 05:41] VITALS: BP 143/95; PULSE 65; RESP 16; TEMP 36.6; O2SAT 95
[2023-12-15] MEDS: amLODIPine Besylate 2.5 MG TABLET PO (09:20)
[2023-12-15] MEDS: Venlafaxine HCL 25 MG TABLET 37.5 MG PO (09:20)
[2023-12-15] MEDS: Venlafaxine HCL 25 MG TABLET 75 MG PO ×2 (09:20→20:43)
[2023-12-15] MEDS: Metoprolol Tartrate 25 MG TABLET PO ×2 (09:20→20:40)
[2023-12-15] MEDS: Gabapentin 100 MG CAPSULE 200 MG PO ×2 (09:20→20:41)
[2023-12-15] MEDS: Lidocaine 4 % Patch ADH..PATCH 1 PATCH TRANSDERMA (09:21)
[2023-12-15] MEDS: oxyCODONE HCl Immed Release 5 MG TABLET PO ×2 (09:51→19:25)
--- NOTE | 2023-12-15 10:00 | PC.NURSE ---
Patient requesting pain medication, stating Tylenol does not help and Oxycodone was effective previously, request sent to provider and oxycodone 5mg once dose was ordered and administered.
--- NOTE | 2023-12-15 10:38 | MHC.CM.ED ---
Patient remains in ER overflow. Per Halima, chief psychologist, ACL completed by OT was scored incorrectly. Unsure if patient has capacity at this time. Unsure of d/c plan at this time. Patient and friend/HCP, Yg, working with Vanessa of [facility] counseling to reapply for [facility]. Unsure if frail and elderly or LTC [facility] will be needed. Continue to monitor for d/c needs.
[2023-12-15] MEDS: LORazepam 1 MG TABLET PO (12:26)
[2023-12-15 14:00] VITALS: BP 109/72; PULSE 61; RESP 14; TEMP 37.1; O2SAT 96
[2023-12-15] MEDS: Simethicone 80 MG TAB.CHEW PO (16:56)
[2023-12-15 20:38] VITALS: BP 137/81; PULSE 97; RESP 18; TEMP 36.6; O2SAT 98
[2023-12-15 20:40] VITALS: BP 137/81; PULSE 97
[2023-12-15] MEDS: OLANZapine 2.5 MG TABLET PO (20:40)
[2023-12-15] MEDS: Tamsulosin HCL 0.4 MG CAPSULE PO (20:41)
[2023-12-15] MEDS: Divalproex Sodium 500 MG TABLET.DR PO (20:43)
[2023-12-15] MEDS: Fluticasone Propionate Nasal 16 GM SPRAY 1 SPRAY NOSTRIL-B (20:49)
--- NOTE | 2023-12-15 20:50 | PC.NURSE ---
Patient is alert and oriented x3, VSS. Patient assisted to restroom in w/c with 1 assist. Patient had BM, connor care provided. Patient medicated with bedtime medications, tolerated well with water, call mcknight placed within patient's reach, bed alarm is on, camera monitor at bed side.
[2023-12-16] MEDS: Acetaminophen 325 MG TABLET 975 MG PO ×2 (04:55→16:55)
[2023-12-16 06:27] VITALS: BP 124/62; PULSE 62; RESP 16; TEMP 36.3; O2SAT 96
[2023-12-16] MEDS: Omeprazole 20 MG CAPSULE.DR PO (07:35)
[2023-12-16] MEDS: Lidocaine 4 % Patch ADH..PATCH 1 PATCH TRANSDERMA (08:06)
[2023-12-16] MEDS: Venlafaxine HCL 25 MG TABLET 37.5 MG PO (08:07)
[2023-12-16] MEDS: Gabapentin 100 MG CAPSULE 200 MG PO ×2 (08:07→21:41)
[2023-12-16] MEDS: amLODIPine Besylate 2.5 MG TABLET PO (08:08)
[2023-12-16] MEDS: Metoprolol Tartrate 25 MG TABLET PO ×2 (08:08→21:42)
[2023-12-16] MEDS: OLANZapine 2.5 MG TABLET PO ×2 (08:45→19:34)
--- NOTE | 2023-12-16 08:59 | MHC.CM.PN ---
CM AWAITING DETERMINATION REGARDING PTS COMPETENCY TO ASSIST WITH DC PLANNING PT DOES NOT HAVE A PAYER FOR STR OR LTC
--- NOTE | 2023-12-16 09:00 | PC.NURSE ---
a&ox4. vss and up to date. medication administered whole w/ water w/o difficulty. pt c/o anxiety - prn order utilized. pharmacy called d/t medications not being readily available in [facility] - will administer when able. 1:1 assist needed to get out of bed but uses urinal independently. new bedding/sheets/pads applied. pt turned/repositioned to comfort. pillow placed to left side of hip to promote comfort. no sob/wob noted. respirations even/unlabored. plan of care ongoing. camera/bed alarm turned on for safety precautions. call mcknight placed within reach.
--- NOTE | 2023-12-16 10:15 | PC.NURSE ---
pt verbalizing increase in hip pain. states he had a one time dose of oxycodone last night which was effective. pt requesting another dose at this time. covering provider notified/aware.
[2023-12-16] MEDS: Venlafaxine HCL 25 MG TABLET 75 MG PO ×2 (10:32→21:41)
[2023-12-16] MEDS: oxyCODONE HCl Immed Release 5 MG TABLET PO (10:32)
--- NOTE | 2023-12-16 10:34 | PC.NURSE ---
medication delivered from pharmacy/administered. effectiveness pending. nasal spray not administered as pt refused. pt has strong smell of urine noted to be coming from body - pt currently refusing bed bath/to take a shower at this time. will reattempt.
[2023-12-16 14:00] VITALS: BP 101/59; PULSE 69; RESP 17; O2SAT 94
[2023-12-16 16:00] VITALS: BP 104/71; PULSE 68; RESP 15; TEMP 36.6; O2SAT 93
--- NOTE | 2023-12-16 16:56 | PC.NURSE ---
pt c/o headache - prn Tylenol utilized. effectiveness pending.
--- NOTE | 2023-12-16 17:35 | PC.NURSE ---
pt has a medication that states it was overdue since 0900 this am - medication not given as medication was discontinued. this RN documented not given d/t being discontinued. medication still flagging as overdue. this RN spoke w/ Deep from pharmacy in regards to medication being overdue - pharmacy states that overdue medication should resolve on it's own within 24 hours.
[2023-12-16 19:16] VITALS: BP 109/65; PULSE 70; RESP 18; TEMP 37.3; O2SAT 98
[2023-12-16] MEDS: Tamsulosin HCL 0.4 MG CAPSULE PO (21:42)
[2023-12-16] MEDS: Divalproex Sodium 500 MG TABLET.DR PO (21:42)
[2023-12-16 21:44] VITALS: BP 107/63; PULSE 80
--- NOTE | 2023-12-16 22:56 | PC.NURSE ---
assisted to bathroom , changed bedding
--- NOTE | 2023-12-17 02:10 | PC.NURSE ---
Took report from off-going RN at 2300 hours. Pt is a 78 y/o male here from independent living facility for evaluation after a fall, no LOC. CT scan was negative for findings. Pt is calm and cooperative with staff. Uses a wheelchair for mobility. Regular diet, takes pills whole without issue. Had a psych eval for capacity to go home, final disposition is still pending. Pt has been sleeping, appears comfortable. Is arousable with verbal stimuli. Changes positions in bed independently as desired. Call light within reach and bed is at the lowest position. Will continue to monitor for changes.
--- NOTE | 2023-12-17 04:05 | PC.NURSE ---
Pt awake and using the urinal at the bedside with supervision, no issues. Back to bed and positioned for comfort. No other verbalized needs at this time. Will continue to monitor for changes.
--- NOTE | 2023-12-17 04:21 | PC.NURSE ---
Pt reports having left hip pain, requesting something for pain. MD notified.
[2023-12-17] MEDS: oxyCODONE HCl Immed Release 5 MG TABLET PO ×2 (04:31→22:14)
[2023-12-17 05:37] VITALS: BP 103/58; PULSE 67; RESP 16; TEMP 36.6
[2023-12-17] MEDS: Omeprazole 20 MG CAPSULE.DR PO (06:33)
--- NOTE | 2023-12-17 06:45 | PC.NURSE ---
Pt awake and responsive to verbal stimuli, appropriate with staff. Denies any needs/wants at this time. No acute distress noted. Pain in left hip reported as better after medication administration. Will continue to monitor for changes.
[2023-12-17] MEDS: Gabapentin 100 MG CAPSULE 200 MG PO ×2 (07:46→22:00)
[2023-12-17] MEDS: Metoprolol Tartrate 25 MG TABLET PO ×2 (07:46→22:00)
[2023-12-17] MEDS: Venlafaxine HCL 25 MG TABLET 75 MG PO ×2 (07:46→22:00)
[2023-12-17] MEDS: amLODIPine Besylate 2.5 MG TABLET PO (07:46)
[2023-12-17] MEDS: Venlafaxine HCL 25 MG TABLET 37.5 MG PO (07:47)
[2023-12-17] MEDS: Lidocaine 4 % Patch ADH..PATCH 1 PATCH TRANSDERMA (07:51)
[2023-12-17] MEDS: LORazepam 1 MG TABLET PO (11:17)
[2023-12-17 14:00] VITALS: BP 100/65; PULSE 71; RESP 14; TEMP 37; O2SAT 97
--- NOTE | 2023-12-17 15:05 | MHC.CM.ED ---
Addendum entered by Ingrid Fernandez 12/17/23 15:52: Patient will d/c home with resumption of services tomorrow 12/17 via friend Yg. Original Note: Patient remains in ER overflow. Received notification from Rayray Varghese NP that patient can safely return home with PT and OT. Patient is already active with [facility]. [facility] made aware that patient will be d/c'd and PT and OT will need to be added to his services. Met with patient in regards to discharge planning. Patient agreeable to returning home. Patient is going to speak to his friend Yg to see if he will d/c home today or tomorrow. Continue to monitor for d/c needs.
[2023-12-17 19:05] VITALS: BP 120/79; PULSE 86; RESP 16; TEMP 36.8; O2SAT 97
--- NOTE | 2023-12-17 19:26 | PC.NURSE ---
Pt requesting and assisted into wheel chair. Pt reports feeling stiff being in bed. Pt requesting meds. Plan of care ongoing.
--- NOTE | 2023-12-17 19:32 | PC.NURSE ---
Pt requesting oxycodone for his chronic hip pain and meds for heartburn. This RN sent message to provider Zayra. No new orders at this time. Plan of care ongoing.
[2023-12-17] MEDS: Acetaminophen 325 MG TABLET 975 MG PO (20:11)
--- NOTE | 2023-12-17 20:13 | PC.NURSE ---
Pt requested and given tylenol for pain Plan of care ongoing.
--- NOTE | 2023-12-17 21:11 | PC.NURSE ---
Charge and provider notified and aware that pt is req meds. Plan of care ongoing.
[2023-12-17 22:00] VITALS: BP 120/79; PULSE 86
[2023-12-17] MEDS: Fluticasone Propionate Nasal 16 GM SPRAY 1 SPRAY NOSTRIL-B (22:00)
[2023-12-17] MEDS: Divalproex Sodium 500 MG TABLET.DR PO (22:00)
[2023-12-17] MEDS: Tamsulosin HCL 0.4 MG CAPSULE PO (22:00)
--- NOTE | 2023-12-17 22:04 | PC.NURSE ---
This RN called and just rec'd med from pharmacy Plan of care ongoing.
--- NOTE | 2023-12-17 22:17 | PC.NURSE ---
Pt medicated per [facility] Plan of care ongoing.
[2023-12-17 23:28] VITALS: BP 122/74; PULSE 83; RESP 16; TEMP 36.8; O2SAT 98
--- NOTE | 2023-12-17 23:54 | MHC.EDTECH ---
This Pct assumed care of pt at 2300 ,vitals ,Patient sat at the side of bed to urinated ,50 ml empty from urinal ,Snacks offered ,Patient had saltines and gingerale .
[2023-12-18 02:56] VITALS: RESP 14
[2023-12-18] MEDS: LORazepam 1 MG TABLET PO ×2 (02:56→08:07)
--- NOTE | 2023-12-18 03:02 | PC.NURSE ---
Pt requested and given meds for anxiety Plan of care ongoing.
[2023-12-18] MEDS: Omeprazole 20 MG CAPSULE.DR PO (06:05)
--- NOTE | 2023-12-18 06:05 | PC.NURSE ---
Pt tangled in covers, requested and assisted. Pt medicated per mar. plan of care ongoing.
[2023-12-18 06:49] VITALS: BP 145/83; PULSE 60; RESP 18; TEMP 36.4; O2SAT 98
[2023-12-18] MEDS: oxyCODONE HCl Immed Release 5 MG TABLET PO (08:07)
[2023-12-18] MEDS: Gabapentin 100 MG CAPSULE 200 MG PO (08:07)
[2023-12-18] MEDS: amLODIPine Besylate 2.5 MG TABLET PO (08:08)
[2023-12-18] MEDS: Venlafaxine HCL 25 MG TABLET 75 MG PO (08:08)
[2023-12-18] MEDS: Venlafaxine HCL 25 MG TABLET 37.5 MG PO (08:09)
[2023-12-18] MEDS: Metoprolol Tartrate 25 MG TABLET PO (10:04)
[2023-12-18 10:56] VITALS: BP 135/72; PULSE 70; RESP 14; TEMP 36.8; O2SAT 96
== END 2023-12-18 10:57 | disposition home or self-care (01) ==
PROVIDERS: Physician Assistant; Emergency Provider Student in an Organized Health Care Education/Training Program; PCP Internal Medicine
DX: M25.512 Pain in left shoulder (principal); M25.552 Pain in left hip; G31.84 Mild cognitive impairment of uncertain or unknown etiology; R29.6 Repeated falls; Z91.81 History of falling; I10 Essential (primary) hypertension; I48.91 Unspecified atrial fibrillation; J45.909 Unspecified asthma, uncomplicated; D50.9 Iron deficiency anemia, unspecified; F41.1 Generalized anxiety disorder; Z79.01 Long term (current) use of anticoagulants; S80.12XA Contusion of left lower leg, initial encounter; S80.11XA Contusion of right lower leg, initial encounter; S40.012A Contusion of left shoulder, initial encounter; S40.011A Contusion of right shoulder, initial encounter; S20.229A Contusion of unspecified back wall of thorax, initial encounter; W19.XXXA Unspecified fall, initial encounter; Y93.9 Activity, unspecified; Y92.129 Unspecified place in nursing home as the place of occurrence of the external cause; Y99.9 Unspecified external cause status
CPT/HCPCS: 36415; 70450; 71260; 72125; 73030; 74177; 80053; 81003; 83735; 84484; 85025; 93005; 96374; 96376; 97162; 97166; 99285; J3010

== ENCOUNTER → 2023-12-06 11:15 | Outpatient (BNV) | payer MEDICARE, MEDICAID, SELFPAY | PROVIDERS: Emergency Provider Student in an Organized Health Care Education/Training Program; Visit Provider Internal Medicine Cardiovascular Disease | DX: R94.31 Abnormal electrocardiogram [ECG] [EKG] (principal) | CPT/HCPCS: 93010 ==

== ENCOUNTER → 2023-12-06 11:44 | Outpatient (BNV) | payer MEDICARE, MEDICAID, SELFPAY | PROVIDERS: Emergency Provider Student in an Organized Health Care Education/Training Program; Visit Provider Social Worker | DX: R41.89 Other symptoms and signs involving cognitive functions and awareness (principal) | CPT/HCPCS: 99284 ==

== ENCOUNTER → 2023-12-17 23:59 | Outpatient (BNV) | payer MEDICARE, MEDICAID, SELFPAY | PROVIDERS: PCP Internal Medicine; Visit Provider Internal Medicine | DX: I48.0 Paroxysmal atrial fibrillation (principal); F41.8 Other specified anxiety disorders; D62 Acute posthemorrhagic anemia | CPT/HCPCS: G0180 ==

== ENCOUNTER 2023-12-21 11:12 | Inpatient (IN) | payer MEDICARE, OTHER, SELFPAY ==
[2023-12-21] VITALS (8 sets, daily range): BP systolic 106–142; BP diastolic 57–106; PULSE 86–130; RESP 16–20; TEMP 36.8; O2SAT 95–99; BMI 29.8
--- NOTE | 2023-12-21 | ECG_ITS ---
Test Reason : SOB Blood Pressure : / mmHG Vent. 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 rate has increased BY 45 BPM Referred By: Generic ED Physician Electronically Signed By:ANNITA YANEZ
--- NOTE | 2023-12-21 | ECG_ITS ---
Test Reason : REPEAT Blood Pressure : / mmHG Vent. Rate : 084 BPM Atrial Rate : 084 BPM P-R Int : 158 ms QRS Dur : 090 ms QT Int : 394 ms P-R-T Axes : 074 033 058 degrees QTc Int : 465 ms Sinus rhythm with Premature atrial complexes Anterolateral infarct (cited on or before 18-DEC-2022) Abnormal ECG When compared with ECG of 21-DEC-2023 11:26, Sinus rhythm has replaced Atrial fibrillation Serial changes of Anterior infarct Present Referred By: Shae Abernathy Electronically Signed By:ANNITA YANEZ
--- NOTE | ~2023-12-21 | CT_ITS ---
EXAMINATION: CT ANGIOGRAM OF THE CHEST WITH AND WITHOUT CONTRAST (CT PULMONARY ANGIOGRAM FOR PE) CLINICAL INFORMATION: tachycardia hx of PE not compliant with eliquis COMPARISON: CT chest with contrast December 16, 2023 TECHNIQUE: Prior to contrast administration, noncontrast localization images were obtained. Subsequently, multidetector volumetric imaging was performed from the thoracic inlet to below the diaphragms following the administration of 70 mL Omnipaque 350 intravenous contrast. No contrast reaction reported. Sagittal, coronal, and MIP oblique sagittal reformatted images were obtained on the CT workstation, uploaded to PACS, and reviewed. Total exam dose-length product 365 mGy-cm FINDINGS: QUALITY OF STUDY/CONTRAST BOLUS: Satisfactory. PULMONARY ARTERIES: Extensive bilateral pulmonary emboli extending from the lobar level distally on both sides. The main pulmonary artery is enlarged measuring 3.9 cm in diameter. THORACIC AORTA: The ascending aorta is enlarged measuring 4 x 4.2 cm. LUNG: No focal consolidation, nodules or masses. PLEURA: No pleural effusion or pneumothorax. MEDIASTINUM: Normal heart size. No pericardial effusion. No hilar or mediastinal lymphadenopathy. No evidence of septal bowing or right heart strain. moderate coronary artery calcification. CHEST WALL/AXILLA: No axillary or internal mammary lymphadenopathy. OSSEOUS STRUCTURES: No acute or suspicious osseous abnormality. UPPER ABDOMEN: Unremarkable. No reflux of contrast into the hepatic veins to suggest elevated right heart pressures. CT/CT angio chest PE protocol IMPRESSION: 1. Extensive bilateral pulmonary emboli extending from the lobar level distally on both sides. No evidence of right heart strain. 2. The ascending aorta is enlarged measuring 4 x 4.2 cm, unchanged. VTE: positive This Critical Result was discussed with Shae Abernathy at 1536 on 12/21/2023 and it was ascertained that the content and urgency of the report was understood at the time of direct communication. Electronically signed by: Sudheer Ritter MD 12/21/2023 03:37 PM EDT
--- NOTE | ~2023-12-21 | US_ITS ---
EXAMINATION: US TRIPLEX LOWER EXTREMITY, LEFT CLINICAL INFORMATION: Left lower extremity pain COMPARISON: Duplex from 09/10/2020 TECHNIQUE: Color-flow triplex imaging with spectral analysis and compression Doppler were performed on the left lower extremity. FINDINGS: Echogenic thrombus with incomplete compressibility is seen in the distal left popliteal vein. There is some residual color flow and venous waveforms is seen consistent with the nonocclusive deep venous fibrosis. The left common femoral vein, profunda femoral vein, proximal and mid superficial femoral veins are normally compressible with patent color flow and duplex venous waveforms. Distal segment of the superficial femoral vein is not compressible due to underlying pain. There is patent color flow seen in this segment. There is no Grimm's cyst. US/US venous duplex LE LT IMPRESSION: Nonocclusive deep venous thrombosis in the distal left popliteal vein. This critical result was discussed with JOSIANE Fernandez at 1450 on 12/21/2023 and it was ascertained that the content and urgency of the report was understood at the time of direct communication. Electronically signed by: Noe Arzate MD 12/21/2023 02:52 PM EDT
--- NOTE | ~2023-12-21 | XR_ITS ---
EXAMINATION: XR CHEST CLINICAL INFORMATION: dyspnea COMPARISON: Chest radiograph 11/30/2023 TECHNIQUE: One view of the chest FINDINGS: Lines and tubes: EKG leads overlie the patient. Upper abdominal surgical clips. Low lung volumes with bibasilar opacities and bronchovascular crowding. No pleural effusion. No pneumothorax. Unchanged cardiomediastinal silhouette. XR/XR chest 1V IMPRESSION: Low lung volumes with bronchovascular crowding and bibasilar opacities possibly reflecting atelectasis in the setting of low lung volumes, with aspiration or infection not excluded. Consider repeat radiographs in inspiration with PA/lateral views. Electronically signed by: Grisel Wang MD 12/21/2023 01:09 PM EDT
[2023-12-21 11:49] LABS: MANUAL DIFF FLAG NO
[2023-12-21 11:51] LABS: Basophils Absolute Auto 0.1 X10*3/uL (0.0-0.2); Basophils Percent Auto 0.6 % (0-2); Eosinophils Absolute Auto 0.1 X10*3/uL (0.0-0.4); Eosinophils Percent Auto 1.1 % (0-4); Hematocrit 32.9 % (42.0-52.0); Hemoglobin 10.2 g/dl (14.0-18.0); Imm Gran Abs Auto 0.06 X10*3/uL (0.00-0.03); Imm Gran Pct Auto 0.6 % (0.0-0.4); Lymphocytes Absolute Auto 2.4 X10*3/uL (1.2-4.9); Lymphocytes Percent Auto 23.4 % (20-40); Mean Corpuscular Hemoglobin 24.2 pg (27.0-33.0); Mean Corpuscular Volume 78.1 fL (80.0-98.0); Mean Platelet Volume 9.7 fL (9.4-12.4); Monocytes Absolute Auto 0.8 X10*3/uL (0.1-1.2); Monocytes Percent Auto 8.2 % (2-11); Neutrophils Absolute Auto 6.8 x10*3/uL (2.0-8.3); Neutrophils Percent Auto 66.1 % (45-73); Platelet Count 246 X10*3/uL (160-400); Red Blood Count 4.21 X10*6/uL (4.60-5.80); Red Cell Distribution Width 18.1 % (11.0-16.0); White Blood Count 10.2 X10*3/uL (4.8-10.8)
[2023-12-21 11:56] LABS: INTERNATIONAL NORM RATIO 1.1 (0.9-1.1); Prothrombin Time 12.9 SEC (11.1-13.3)
--- NOTE | 2023-12-21 11:56 | ED_ITS ---
HPI - General Adult General Chief complaint: General Medical Stated complaint: SOB,98% RA,LEG PAIN PER EMS Time Seen by Provider: 12/21/23 11:16 Source: patient, EMS and old records reviewed Mode of arrival: EMS Limitations: other (poor historian) History of Present Illness ED Provider: COLIN GARCIA narrative: 78 yo male with PMH of cognitive impairment, asthma, anxiety, PE on eliquis, GERD, HTN, obesity, SBO, PAF, who was managed here in ED observation for case management from 12/05 to 12/17 s/p fall work up negative LUE injury, CT head/cspine/chest negative for trauma, he was sent back to his senior care home - lives alone. He has no services. He has to use a wheelchair around the home. He tells me he might have missed some medications including eliquis. He reports he feels short of breath and has pain in his left leg x 20 years. He states he can't really take care of himself at this point. He notes he has not had any new falls but it is really hard for him to get to his medications and he gets very short of breath and winded getting out of the WC to get his medications. He states when he was here he was given pain medications that helped his chronic L leg pain. after review of meds and spoke to pharmacy patient was not put on his eliquis while in ed observation unit. he has not been on the eliquis while in our ED observation unit and he states he also has not been taking it while at home. per pharmacy while at [facility] they did not know his medications and they could not confirm his eliquis so it was not continued. pharmacy had spoke to [facility] staff and states he was only on a 14 day supply and pharmacy was the one that did the medication recc. complaint: leg pain, dyspnea Onset (ago): day(s) (1) Location: chest, left and lower extremity Radiation: non-radiation Severity: moderate Quality: aching Pain Consistency: constant Relieving factors: none Exacerbating factors: movement Associated symptoms: shortness of breath Treatments prior to arrival: none Related Data Home Medications ?Medication ?Instructions ?Recorded ?Confirmed acetaminophen 325 mg tablet 650 mg PO Q4H PRN Fever Or Pain 09/30/23 10/25/23 (Tylenol) acetaminophen 325 mg tablet 650 mg PO TID 09/30/23 10/25/23 (Tylenol) calcium carbonate 500 mg PO BID PRN Indigestion 09/30/23 10/25/23 diclofenac sodium 1 % topical gel 4 g topical TID 09/30/23 10/25/23 gabapentin 100 mg capsule 200 mg PO BID 09/30/23 12/06/23 magnesium hydroxide 400 mg/5 mL 30 ml PO DAILY PRN Constipation 09/30/23 10/25/23 oral suspension (Milk of Magnesia) melatonin 10 mg tablet 10 mg PO BEDTIME 09/30/23 10/25/23 methyl salicylate-menthol topical 1 appl topical BID 09/30/23 10/25/23 cream metoprolol tartrate 25 mg tablet 25 mg PO BID 09/30/23 12/06/23 naloxone 4 mg/actuation nasal 4 mg intranasal Q3M PRN 09/30/23 10/25/23 spray (Narcan) sedation/unresponsive oxycodone 5 mg tablet 5 mg PO TID PRN Pain 09/30/23 10/25/23 polyethylene glycol 3350 17 17 g PO DAILY PRN Constipation 09/30/23 10/25/23 gram/dose oral powder (Miralax) simethicone 80 mg chewable tablet 80 mg PO Q8H PRN Indigestion 09/30/23 10/25/23 tamsulosin 0.4 mg capsule (Flomax) 0.4 mg PO BEDTIME 09/30/23 12/06/23 amlodipine 2.5 mg tablet 2.5 mg PO DAILY 11/09/23 12/06/23 cetirizine 10 mg tablet 10 mg PO DAILY 11/09/23 11/09/23 divalproex 500 mg tablet,delayed 500 mg PO BEDTIME 11/09/23 12/06/23 release (Depakote) fluticasone propionate 50 1 spray intranasal BID 11/09/23 12/06/23 mcg/actuation nasal spray,suspension lidocaine 4 % topical patch 1 patch topical DAILY PRN pain 11/09/23 11/09/23 (Lidocaine Pain Relief) nystatin-triamcinolone 100,000 1 appl topical BID PRN Rash 11/09/23 11/09/23 unit/g-0.1 % topical cream pantoprazole 40 mg tablet,delayed 40 mg PO DAILY@0630 11/09/23 12/06/23 release vibegron 75 mg tablet (Gemtesa) 75 mg PO DAILY 11/09/23 12/06/23 venlafaxine 37.5 mg tablet 37.5 mg PO DAILY 12/06/23 12/06/23 venlafaxine 75 mg tablet 75 mg PO BID 12/06/23 12/06/23 Previous Rx's ?Medication ?Instructions ?Recorded syringe with needle, safety 3 mL #100 ea 06/02/21 25 gauge x 5/8 (BD Safety-Jackie Detachable Needle) apixaban 5 mg tablet 5 mg PO BID 90 days #180 tabs 03/07/22 lorazepam 1 mg tablet 1 mg PO BID PRN Anxiety #60 tabs 12/03/23 Allergies Allergy/AdvReac Type Severity Reaction Status Date / Time carisoprodol [From Soma] Allergy Mild MENTAL Verified 12/21/23 11:34 STATUS CHANGE, BECOMES AGGRESIVE codeine [Codeine] Allergy Mild STOMACH Verified 12/21/23 11:34 UPSET, RASH gabapentin AdvReac Intermediate lousy Verified 12/21/23 11:34 feeling Review of Systems 2 Review of Systems: Constitutional : No Fever, No Chills ENT/Mouth : No Ear Pain, No Hoarseness, No sore throat Eyes: No Eye Pain, No Swelling, No Redness, No Foreign Body Cardiovascular : No Chest Pain, pos SOB Respiratory : No Cough, No Dyspnea Gastrointestinal : No Nausea, No Vomiting, No Diarrhea, No abdominal Pain Genitourinary : No Dysuria, No Hematuria Musculoskeletal : positive joint pain, No Myalgias, No Joint Swelling Skin : No Skin lacerations, No rash Neuro : No Weakness, No Numbness, No Loss of Consciousness, No Dizziness, No Headache Psych : No Anxiety/Panic, No Depression All other systems reviewed and are negative [facility] Past Medical History Attestation statement: The following information was validated with the patient. Source: old records reviewed Medical History Incisional hernia Premature atrial complexes Shortness of breath Rash Asthma exacerbation Leukocytosis Serum potassium elevated Low vitamin D level Headache Fatigue Moderate recurrent major depression Hospital discharge follow-up Chest tightness Dyspnea on exertion Allergic bronchitis Generalized anxiety disorder Tinea cruris SOB (shortness of breath) on exertion Constipation Atrial fibrillation Knee fracture, left Wedge compression fracture of L1 vertebra Prostate cancer Iron deficiency anemia Obstructive sleep apnea Vitamin D deficiency Diverticular disease Obesity (BMI 30-39.9) Peptic ulcer disease Degenerative disc disease GERD (gastroesophageal reflux disease) Anxiety and depression Vitamin B12 deficiency Gout Hypertension Fatigue Dysuria Surgical History History of colonoscopy History of hemiarthroplasty of left hip H/O rectal polypectomy History of knee replacement procedure of left knee H/O hernia repair History of pyloroplasty History of bowel resection History of cholecystectomy Family History Family History Father Diabetes Acute kidney failure Glaucoma Mother Lung cancer Social History Social History Household Members: None Housing: Apartment Do you presently have visiting nurse or other home services: No Alcohol intake: never Comment: sitter at bedside Patient Tobacco Use Status: Former Tobacco user Tobacco use type: Cigar Smoked in Last 30 Days: No e-Cigarette/Vaping Use: Currently Using Second Hand Smoke Exposure: No Use of substances other than those prescribed or required for medical reasons: No Advance Directives: Yes Advance Directives on File: Yes Advance Directives Date on File: 07/03/22 Do you have a plan to hurt others: No Plan service: No Current occupational status: retired Cognitive needs: No Hearing needs: Yes Vision needs: Yes Physical Exam ED Vital Signs: Vital Signs - 24 hr 12/21/23 11:32 12/21/23 12:36 12/21/23 13:27 Temperature 98.2 F Pulse Rate 95 Pulse Rate [Monitor] 130 H Respiratory Rate 20 20 Blood Pressure 109/57 L Pulse Oximetry 99 Oxygen Delivery Method Room Air 12/21/23 14:56 Temperature 98.2 F Pulse Rate 107 H Pulse Rate [Monitor] Respiratory Rate 20 Blood Pressure 113/58 L Pulse Oximetry 97 Oxygen Delivery Method Room Air BMI result Body Mass Index 29.8 Appearance: Alert. Oriented X3. No acute distress. Eyes: Pupils equal, round and reactive to light. ENT: Pharynx dry MM Neck: Normal inspection. Neck supple. CVS: tachycardic and irregular heart rate and rhythm. Pulses normal. Respiratory: No respiratory distress. Breath sounds rales both bases Abdomen: Soft and non-tender. Back: large old appearing bruise and healing skin avulsion L posterior shoulder area Skin: Skin warm and dry. pale skin color. Normal skin turgor. Extremities: No lower extremity edema. L leg reports pain throughout SILT intact and 2+ DP pulses Neuro: Oriented X 3. No motor deficit. No sensory deficit. Course Course Course Narrative: converted to NSR after 5mg IV lopressor Reevaluation(s) Reevaluation #1: well known to staff gets agitated fights at this time up and out of bed oral zyprexa out of bed - hx of same in ED obs unit Medications Administered Discontinued Medications Generic Name Dose Route Start Last Admin Trade Name Freq PRN Reason Stop Dose Admin Enoxaparin Sodium 100 mg 12/21/23 15:45 12/21/23 15:51 Enoxaparin Sodium 100 Mg/Ml Syringe 1 mg/kg (100 mg) 12/21/23 15:46 100 mg SUBCUT Administration ONCE ONE Iohexol 65 ml 12/21/23 14:56 12/21/23 14:56 Iohexol 350 Mg/Ml 100 Ml Infus..Btl IV 12/21/23 14:57 65 ml ONCE ONE Administration Metoprolol Tartrate 5 mg 12/21/23 12:47 12/21/23 12:53 Metoprolol Tartrate 5 Mg/5 Ml Vial IVPUSH 12/21/23 12:48 5 mg ONCE ONE Administration Protocol Morphine Sulfate 4 mg 12/21/23 13:22 12/21/23 13:27 Morphine Sulfate 4 Mg/Ml Cartridge IVPUSH 12/21/23 13:23 4 mg ONCE ONE Administration Protocol Olanzapine 10 mg 12/21/23 15:46 12/21/23 15:51 Olanzapine Odt 10 Mg Tab.Rapdis TRANSLINGU 12/21/23 15:47 10 mg ONCE ONE Administration Oxycodone HCl 5 mg 12/21/23 11:41 12/21/23 12:00 Oxycodone Hcl Immed Release 5 Mg Tablet PO 12/21/23 11:42 5 mg ONCE ONE Administration Oxycodone HCl 10 mg 12/21/23 15:15 12/21/23 15:37 Oxycodone Hcl Immed Release 5 Mg Tablet PO 12/21/23 15:16 10 mg ONCE ONE Administration Medical Decision Making Medical Decision Making MDM Narrative: 78 yo male with PMH of cognitive impairment, asthma, anxiety, PE on eliquis, GERD, HTN, obesity, SBO, PAF, who has been home and not really doing well since long stay in our observation unit has only been home for 3 days at this time given dyspnea and leg pain and unsure if he is taking his eliquis now in afib will obtain EKG, CXR, trop, BNP, DVT study and oral oxycodone for pain control. Given afib will monitor and rate control no signs of edema or volume overload but has rales on exam will try lopressor if he needs rate control. Differential Diagnosis Differential Diagnoses: The differential diagnosis associated with the presentation includes VTE, URI, COVID, chronic pain Admission/Observation Consideration of admission/observation: Escalation of care including admission/observation considered Lab Data [facility] Lab Attestation statement: I reviewed the patient's lab results. 12/21/23 11:45 12/21/23 11:45 Labs: Lab Results 12/21/23 12/21/23 Range/Units 11:45 11:46 WBC 10.2 (4.8-10.8) X10*3/uL RBC 4.21 L (4.60-5.80) X10*6/uL Hgb 10.2 L (14.0-18.0) g/dl Hct 32.9 L (42.0-52.0) % MCV 78.1 L (80.0-98.0) fL MCH 24.2 L (27.0-33.0) pg MCHC 31.0 (31.0-36.0) g/dl RDW 18.1 H (11.0-16.0) % Plt Count 246 (160-400) X10*3/uL MPV 9.7 (9.4-12.4) fL Immature Gran % (Auto) 0.6 H (0.0-0.4) % Neut % (Auto) 66.1 (45-73) % Lymph % (Auto) 23.4 (20-40) % Rooks % (Auto) 8.2 (2-11) % Eos % (Auto) 1.1 (0-4) % Baso % (Auto) 0.6 (0-2) % Lymph # (Auto) 2.4 (1.2-4.9) X10*3/uL Rooks # (Auto) 0.8 (0.1-1.2) X10*3/uL Eos # (Auto) 0.1 (0.0-0.4) X10*3/uL Baso # (Auto) 0.1 (0.0-0.2) X10*3/uL Abs Immat Gran (auto) 0.06 H (0.00-0.03) X10*3/uL Absolute Neuts (auto) 6.8 (2.0-8.3) x10*3/uL Absolute Nucleated RBC 0.000 (0.0-0.012) X10*3/uL Nucleated RBC % (auto) 0.0 (0.0-0.2) /100WBC PT 12.9 (11.1-13.3) SEC INR 1.1 (0.9-1.1) Sodium 141 (135-145) mmol/L Potassium 4.2 (3.3-5.1) mmol/L Chloride 110 H (96-108) mmol/L Carbon Dioxide 23 (22-29) mmol/L Anion Gap 12 (12-20) BUN 21 H (9-16) mg/dL Creatinine 0.92 (0.5-1.4) mg/dL Estim Creat Clear Calc 82.2 Estimated GFR > 60 Random Glucose 98 (60-115) mg/dL Calcium 8.5 (8.4-10.2) mg/dL Total Bilirubin 0.4 (0.0-1.0) mg/dL AST 15 (5-37) U/L ALT 12 (0-40) U/L Alkaline Phosphatase 96 (39-117) U/L Troponin I High Sens 10.0 D (<3.5-35.0) ng/L B-Natriuretic Peptide 158 H (<100) pg/mL Total Protein 6.4 L (6.5-8.0) g/dL Albumin 3.6 (3.5-5.0) g/dL Influenza Type A (PCR) NEGATIVE (Negative) Influenza Type B (PCR) NEGATIVE (Negative) RSV RNA Qual (PCR) NEGATIVE (Negative) SARS-CoV-2 RNA (RT-PCR) NEGATIVE (Negative) Independent Interpretation I performed an independent interpretation of an: EKG, Plain X-Ray, Ultrasound (+ acute DVT) and CT Scan Interpretation: Rate: 122 Rhythm: afib with PVCs Vanderbilt: normal Normal QRS complex. ST T wave : no DOUGIE, flat t waves aVL qTC: 475 prior studies: change from most recent now in afib The study has been interpreted contemporaneously by me. EKG #2 Rate: 84 Rhythm: NSR with PACs Vanderbilt: normal Normal P waves. Normal KIRBY. Normal QRS complex. ST T wave : normal no DOUGIE qTC: 465 prior studies: no acute ischemia The study has been interpreted contemporaneously by me. . Radiology Impression Discussion of test interpretation with radiology: I discussed test interpretation with the radiologist and I have reviewed the radiologist's reading. Radiologist Impression: 332pm extensive bilateral PE no signs of R heart strain Discharge Plan Discharge Clinical Impression: A-fib Qualifiers: Atrial fibrillation type: paroxysmal Qualified Code(s): I48.0 - Paroxysmal atrial fibrillation DVT (deep venous thrombosis) Qualifiers: DVT location: lower extremity Affected thrombotic vein of extremity: popliteal Chronicity: acute Laterality: left Qualified Code(s): I82.432 - Acute embolism and thrombosis of left popliteal vein Pulmonary embolism Qualifiers: Pulmonary embolism type: multiple subsegmental (without acute cor pulmonale) Q ualified Code(s): I26.94 - Multiple subsegmental pulmonary emboli without acute cor pulmonale Patient Disposition: Admitted As Inpatient Print Language: Japanese
[2023-12-21] MEDS: oxyCODONE HCl Immed Release 5 MG TABLET PO ×2 (12:00→20:40)
--- NOTE | 2023-12-21 12:02 | PC.NURSE ---
Allevyn applied to patient's coccyx per patient request. Coccyx area pink, no open areas, blanchable.
[2023-12-21 12:06] LABS: Alanine Aminotransferase 12 U/L (0-40); Albumin Level 3.6 g/dL (3.5-5.0); Alkaline Phosphatase 96 U/L (39-117); Anion Gap 12 (12-20); Aspartate Amino Transferase 15 U/L (5-37); Bilirubin Total 0.4 mg/dL (0.0-1.0); Blood Urea Nitrogen 21 mg/dL (9-16); Calcium 8.5 mg/dL (8.4-10.2); Carbon Dioxide 23 mmol/L (22-29); Chloride 110 mmol/L (96-108); Creatinine Clr Calc Pharmacy 82.2; Estimated Glomerular Filt Rate > 60; Glucose Random 98 mg/dL (60-115); Potassium 4.2 mmol/L (3.3-5.1); Sodium 141 mmol/L (135-145); Total Protein 6.4 g/dL (6.5-8.0)
[2023-12-21 12:10] LABS: B Type Natriuretic Peptide 158 pg/mL (<100)
[2023-12-21 12:28] LABS: Influenza A PCR NEGATIVE (Negative); Influenza B PCR NEGATIVE (Negative); Resp Syncy Virus RNA Qual PCR NEGATIVE (Negative); SARS COV2 PCR INHOUSE NEGATIVE (Negative)
[2023-12-21] MEDS: Metoprolol Tartrate 5 MG/5 ML VIAL IVPUSH (12:53)
[2023-12-21] MEDS: Morphine Sulfate 4 MG/ML CARTRIDGE IVPUSH (13:27)
[2023-12-21] MEDS: iohexoL 350 MG/ML 100 ML INFUS..BTL 65 ML IV (14:56)
--- NOTE | 2023-12-21 15:27 | PC.NURSE ---
pt awake/alert to person/place, pt c/o rt him 11/05 pain, lungs clear throughout- rr equal/non labored, surveillance system monitor intact/afib on monitor, provider notified of pt wanting pain medications.
[2023-12-21] MEDS: oxyCODONE HCl Immed Release 5 MG TABLET 10 MG PO (15:37)
--- NOTE | 2023-12-21 15:38 | PC.NURSE ---
pt medicated for pain, pt states can the doctor please hold me over here at the hospital for a few nights, I am not comfortable going home, I live alone
[2023-12-21] MEDS: OLANZapine ODT 10 MG TAB.RAPDIS TRANSLINGU (15:51)
[2023-12-21] MEDS: Enoxaparin Sodium 100 MG/ML SYRINGE SUBCUT (15:51)
--- NOTE | 2023-12-21 15:55 | PC.NURSE ---
pt medicated per order, tech drawing labs, attempted to set up a camera for patient safety and was told by the monitor room that they had no camera slots available, nursing lower in supervisor is aware of this, will attempt to get a hospital bed with a bed alarm to increase the patient safety
[2023-12-21 16:04] LABS: Hematocrit 33.8 % (42.0-52.0); Hemoglobin 10.3 g/dl (14.0-18.0); Mean Corpuscular HGB Conc 30.5 g/dl (31.0-36.0); Mean Corpuscular Hemoglobin 23.7 pg (27.0-33.0); Mean Corpuscular Volume 77.7 fL (80.0-98.0); Mean Platelet Volume 9.3 fL (9.4-12.4); Platelet Count 264 X10*3/uL (160-400); Red Blood Count 4.35 X10*6/uL (4.60-5.80); Red Cell Distribution Width 18.1 % (11.0-16.0); White Blood Count 11.9 X10*3/uL (4.8-10.8)
[2023-12-21 16:09] LABS: INTERNATIONAL NORM RATIO 1.1 (0.9-1.1); Prothrombin Time 12.8 SEC (11.1-13.3)
[2023-12-21 16:12] LABS: Partial Thromboplastin Time 35.9 SEC (26.0-36.8)
--- NOTE | 2023-12-21 16:20 | PHA.MEDREC ---
Pharmacy Consult ? Medication Reconciliation Pharmacy has completed the medication reconciliation. Patient recently discharged 12/17. Utilized discharge packet.
--- NOTE | 2023-12-21 16:39 | PC.NURSE ---
Patient moved to hospital bed w/ assist of transport Mary and EDT Sophie. Patient states he's much more comfortable. Bed alarm on for patient's safety.
--- NOTE | 2023-12-21 16:44 | PM.IMHP ---
History of Present Illness Date of Service: 12/21/23 Attending physician on admission: Laya Rodriguez Chief Complaint: Shortness of breath This is a 78-year-old male who came to the emergency department today with complaints of shortness of breath. Workup in the emergency department included CTA which showed extensive bilateral pulmonary emboli extending from the lobar level distally on both sides with no evidence of heart strain. Left lower extremity venous ultrasound showing nonocclusive DVT in the distal left popliteal vein. Patient was given a dose of therapeutic Lovenox. Also noted to be in AFib with rapid ventricular response requiring a dose of IV Lopressor. Patient denies any chest pain or palpitations at this time. Patient will be admitted for further management. Review of Systems Review of Systems: Yes all other systems are reviewed and are negative Constitutional: Constitutional: Denies chills and Denies fever(s) Cardiovascular: Cardiovascular: Denies chest pain and Denies palpitations Gastrointestinal: Gastrointestinal: Denies abdominal pain, Denies nausea and Denies vomiting Endocrine: Endocrine: Denies palpitations [facility] Medical History Incisional hernia Premature atrial complexes Shortness of breath Rash Asthma exacerbation Leukocytosis Serum potassium elevated Low vitamin D level Headache Fatigue Moderate recurrent major depression Hospital discharge follow-up Chest tightness Dyspnea on exertion Allergic bronchitis Generalized anxiety disorder Tinea cruris SOB (shortness of breath) on exertion Constipation Atrial fibrillation Knee fracture, left Wedge compression fracture of L1 vertebra Prostate cancer Iron deficiency anemia Obstructive sleep apnea Vitamin D deficiency Diverticular disease Obesity (BMI 30-39.9) Peptic ulcer disease Degenerative disc disease GERD (gastroesophageal reflux disease) Anxiety and depression Vitamin B12 deficiency Gout Hypertension Fatigue Dysuria Family History Father Diabetes Acute kidney failure Glaucoma Mother Lung cancer Surgical History History of colonoscopy History of hemiarthroplasty of left hip H/O rectal polypectomy History of knee replacement procedure of left knee H/O hernia repair History of pyloroplasty History of bowel resection History of cholecystectomy Social History Household Members: None Housing: Apartment Do you presently have visiting nurse or other home services: No Alcohol intake: never Comment: sitter at bedside Patient Tobacco Use Status: Former Tobacco user Tobacco use type: Cigar Smoked in Last 30 Days: No e-Cigarette/Vaping Use: Currently Using Second Hand Smoke Exposure: No Use of substances other than those prescribed or required for medical reasons: No Advance Directives: Yes Advance Directives on File: Yes Advance Directives Date on File: 07/03/22 Do you have a plan to hurt others: No Plan service: No Current occupational status: retired Cognitive needs: No Hearing needs: Yes Vision needs: Yes Meds Allergies Allergy/AdvReac Type Severity Reaction Status Date / Time carisoprodol [From Soma] Allergy Mild MENTAL Verified 12/21/23 11:34 STATUS CHANGE, BECOMES AGGRESIVE codeine [Codeine] Allergy Mild STOMACH Verified 12/21/23 11:34 UPSET, RASH gabapentin AdvReac Intermediate lousy Verified 12/21/23 11:34 feeling Active Medications: Current Medications Acetaminophen (Acetaminophen 325 Mg Tablet) 650 mg PO Q6H PRN PRN Reason: Pain, Mild (Pain Scale 1-3), fever or headache Calcium Carbonate (Calcium Carbonate 750 Mg Tab.Chew) 750 mg PO Q4H PRN PRN Reason: Heartburn Enoxaparin Sodium (Enoxaparin Sodium 100 Mg/Ml Syringe) 100 mg 1 mg/kg (100 mg) SUBCUT Q12H [facility] Melatonin (Melatonin 3 Mg Tablet) 6 mg PO BEDTIME PRN PRN Reason: Insomnia Polyethylene Glycol (Polyethylene Glycol 3350 17 Gm Powd.Pack) 17 gm PO DAILY PRN PRN Reason: Constipation Sodium Chloride (0.9 % Sodium Chloride Flush 3 Ml Syringe) 3 ml IVFLUSH QSHIFT [facility] Home Medications ?Medication ?Instructions ?Recorded ?Confirmed ?Last Taken ?Type acetaminophen 325 mg tablet 650 mg PO Q4H PRN Fever Or Pain 09/30/23 12/21/23 Unknown History (Tylenol) acetaminophen 325 mg tablet 650 mg PO TID 09/30/23 12/21/23 Unknown History (Tylenol) calcium carbonate 500 mg PO BID PRN Indigestion 09/30/23 12/21/23 Unknown History diclofenac sodium 1 % topical gel 4 g topical TID 09/30/23 12/21/23 Unknown History gabapentin 100 mg capsule 200 mg PO BID 09/30/23 12/21/23 Unknown History magnesium hydroxide 400 mg/5 mL 30 ml PO DAILY PRN Constipation 09/30/23 12/21/23 Unknown History oral suspension (Milk of Magnesia) melatonin 10 mg tablet 10 mg PO BEDTIME 09/30/23 12/21/23 Unknown History methyl salicylate-menthol topical 1 appl topical BID 09/30/23 12/21/23 Unknown History cream metoprolol tartrate 25 mg tablet 25 mg PO BID 09/30/23 12/21/23 Unknown History naloxone 4 mg/actuation nasal 4 mg intranasal Q3M PRN 09/30/23 12/21/23 Unknown History spray (Narcan) sedation/unresponsive oxycodone 5 mg tablet 5 mg PO TID PRN Pain 09/30/23 12/21/23 Unknown History polyethylene glycol 3350 17 17 g PO DAILY PRN Constipation 09/30/23 12/21/23 Unknown History gram/dose oral powder (Miralax) simethicone 80 mg chewable tablet 80 mg PO Q8H PRN Indigestion 09/30/23 12/21/23 Unknown History tamsulosin 0.4 mg capsule (Flomax) 0.4 mg PO BEDTIME 09/30/23 12/21/23 Unknown History amlodipine 2.5 mg tablet 2.5 mg PO DAILY 11/09/23 12/21/23 Unknown History cetirizine 10 mg tablet 10 mg PO DAILY 11/09/23 12/21/23 Unknown History divalproex 500 mg tablet,delayed 500 mg PO BEDTIME 11/09/23 12/21/23 Unknown History release (Depakote) fluticasone propionate 50 1 spray intranasal BID 11/09/23 12/21/23 Unknown History mcg/actuation nasal spray,suspension lidocaine 4 % topical patch 1 patch topical DAILY PRN pain 11/09/23 12/21/23 Unknown History (Lidocaine Pain Relief) nystatin-triamcinolone 100,000 1 appl topical BID PRN Rash 11/09/23 12/21/23 Unknown History unit/g-0.1 % topical cream pantoprazole 40 mg tablet,delayed 40 mg PO DAILY@0630 11/09/23 12/21/23 Unknown History release vibegron 75 mg tablet (Gemtesa) 75 mg PO DAILY 11/09/23 12/21/23 Unknown History venlafaxine 37.5 mg tablet 37.5 mg PO DAILY 12/06/23 12/21/23 Unknown History venlafaxine 75 mg tablet 75 mg PO BID 12/06/23 12/21/23 Unknown History Physical Exam Vital Signs and Narrative: Vital Signs: Last Vital Signs Temp 98.2 F 12/21/23 14:56 Pulse 107 H 12/21/23 14:56 Resp 20 12/21/23 14:56 BP 113/58 L 12/21/23 14:56 Pulse Ox 97 12/21/23 14:56 O2 Del Method Room Air 12/21/23 14:56 BMI result Body Mass Index 29.8 Const: General: cooperative, comfortable, no acute distress, alert and awake Nutritional Appearance: average body habitus Orientation/consciousness: oriented to person and oriented to place Resp: Effort & Inspection: normal respiratory effort, able to speak in complete sentences, no respiratory distress and no use of accessory muscles Auscultation: clear to auscultation bilaterally Cardio: Rate: tachycardic GI: Inspection: No distended Palpation (GI): Soft to palpation Skin: Other: old bruising left shoulder/upper back; skin tear left shoulder Neuro: General: oriented to person, oriented to place, moves all extremities and CN's II-XI intact bilaterally Extrem: General: Yes no pedal edema Results Labs 12/21/23 16:00 12/21/23 11:45 Labs: Laboratory Results - last 24 hr 12/21/23 12/21/23 12/21/23 11:45 11:46 16:00 MCV 78.1 L 77.7 L MCH 24.2 L 23.7 L MCHC 31.0 30.5 L RDW 18.1 H 18.1 H Plt Count 246 264 MPV 9.7 9.3 L Immature Gran % (Auto) 0.6 H Neut % (Auto) 66.1 Lymph % (Auto) 23.4 Schleicher % (Auto) 8.2 Eos % (Auto) 1.1 Baso % (Auto) 0.6 Lymph # (Auto) 2.4 Schleicher # (Auto) 0.8 Eos # (Auto) 0.1 Baso # (Auto) 0.1 Abs Immat Gran (auto) 0.06 H Absolute Neuts (auto) 6.8 Absolute Nucleated RBC 0.000 0.000 Nucleated RBC % (auto) 0.0 0.0 PT 12.9 12.8 INR 1.1 1.1 APTT 35.9 Anion Gap 12 Estim Creat Clear Calc 82.2 Estimated GFR > 60 Random Glucose 98 Calcium 8.5 Total Bilirubin 0.4 AST 15 ALT 12 Alkaline Phosphatase 96 Troponin I High Sens 10.0 D B-Natriuretic Peptide 158 H Total Protein 6.4 L Albumin 3.6 Influenza Type A (PCR) NEGATIVE Influenza Type B (PCR) NEGATIVE RSV RNA Qual (PCR) NEGATIVE SARS-CoV-2 RNA (RT-PCR) NEGATIVE Imaging Radiologist's Impressions: Impressions Chest X-Ray 12/21/23 11:50 IMPRESSION: Low lung volumes with bronchovascular crowding and bibasilar opacities possibly reflecting atelectasis in the setting of low lung volumes, with aspiration or infection not excluded. Consider repeat radiographs in inspiration with PA/lateral views. Electronically signed by: Grisel Wang MD 12/21/2023 01:09 PM EDT RP Venous Duplex 12/21/23 12:55 IMPRESSION: Nonocclusive deep venous thrombosis in the distal left popliteal vein. This critical result was discussed with JOSIANE Fernandez at 1450 on 12/21/2023 and it was ascertained that the content and urgency of the report was understood at the time of direct communication. Electronically signed by: Noe Arzate MD 12/21/2023 02:52 PM EDT RP Chest CTA 12/21/23 14:38 IMPRESSION: 1. Extensive bilateral pulmonary emboli extending from the lobar level distally on both sides. No evidence of right heart strain. 2. The ascending aorta is enlarged measuring 4 x 4.2 cm, unchanged. VTE: positive This Critical Result was discussed with Shae Abernathy at 1536 on 12/21/2023 and it was ascertained that the content and urgency of the report was understood at the time of direct communication. Electronically signed by: Sudheer Ritter MD 12/21/2023 03:37 PM EDT RP Assessment and Plan (1) Pulmonary embolism: Qualifiers: Pulmonary embolism type: multiple subsegmental (without acute cor pulmonale) Qualified Code(s): I26.94 - Multiple subsegmental pulmonary emboli without acute cor pulmonale Status: Acute (2) DVT (deep venous thrombosis): Qualifiers: Affected thrombotic vein of extremity: popliteal Chronicity: acute DVT location: lower extremity Laterality: left Qualified Code(s): I82.432 - Acute embolism and thrombosis of left popliteal vein Status: Acute Plan This is a 76-year-old male with history of hypertension prostate cancer status post radiation, PE on Eliquis, PAF, mood disorder, depression, PUD, recent stay in overflow area of the emergency department from December 05 to December 17 who presents to the emergency department with shortness of breath found to have bilateral PE and left lower extremity DVT Extensive bilateral PE/LLE DVT Due to missing previous doses of Eliquis Received therapeutic Lovenox in ED, will continue, can resume previous dose of Eliquis likely tomorrow evening No evidence of heart strain on CTA Troponin negative, mild elevation in BNP similar to previous. No evidence of acute CHF No hypoxia Tele monitoring Atrial fibrillation with rapid ventricular response Received a dose of IV Lopressor in the ED will resume home dose of oral Lopressor Anticoagulation with Lovenox, transitioned to oral Eliquis likely tomorrow weakness/previous prolonged ED stay PT eval at that time rec STR but pt ended up returning home as he did not have payer for STR Unspecified cognitive impairment/mood disorder Continue Depakote, lorazepam, venlafaxine Chronic left hip/low back pain Continue gabapentin, oxycodone PUD Continue PPI BPH Continue Flomax Hypertension Hold amlodipine for now, resume as blood pressure allows Continue metoprolol DVT prophylaxis-Lovenox Code status-DNR/DNI Patient will likely require 2 midnight stay in the hospital for management of acute bilateral PE and close monitoring of cardiopulmonary status as well as safe disposition Quality Stroke Does the patient have a stroke diagnosis?: No VTE Prior VTE?: Yes VTE Risk Level:: Medical - moderate - high VTE Device Contraindication: Treatment Not Indicated VTE Drug Contraindication: N/A - Med Ordered
--- NOTE | 2023-12-21 17:23 | PC.NURSE ---
patient has lopressor ordered to be given as a scheduled medication, pt was given an IVP dose at approx 1pm. currently the patients hr is afib on the monitor 86-90 bpm and bp is 113/58, May Hartley-hospitalist was notified via tiger text to ask if it should be held for the time being. afternoon dose will be held per May Hartley but pt to have evening dose.
--- NOTE | 2023-12-21 19:12 | PC.NURSE ---
Received report from Crista CASANOVA, assume care of pt at this time
--- NOTE | 2023-12-21 19:52 | PC.NURSE ---
resting quietly on bed at this time, no s/s of acute distress, waiting on admit bed
[2023-12-21] MEDS: Gabapentin 100 MG CAPSULE 200 MG PO (20:39)
[2023-12-21] MEDS: Tamsulosin HCL 0.4 MG CAPSULE PO (20:39)
[2023-12-21] MEDS: Melatonin 3 MG TABLET 6 MG PO (20:39)
[2023-12-21] MEDS: Divalproex Sodium 500 MG TABLET.DR PO (20:40)
[2023-12-21] MEDS: LORazepam 1 MG TABLET PO (20:40)
[2023-12-21] MEDS: Metoprolol Tartrate 25 MG TABLET PO (20:41)
[2023-12-22] VITALS (7 sets, daily range): BP systolic 92–130; BP diastolic 61–82; PULSE 71–101; RESP 12–20; TEMP 36–36.4; O2SAT 93–98; BMI 29.6
[2023-12-22] MEDS: Lidocaine 4 % Patch ADH..PATCH 1 PATCH TRANSDERMA (00:23)
[2023-12-22] MEDS: Acetaminophen 325 MG TABLET 650 MG PO ×3 (00:23→21:37)
--- NOTE | 2023-12-22 02:13 | PC.NURSE ---
pt awake and asking for his ativan, explained to pt, he has already had it, and had his oxycodone. pt states ok, pt given warm blanket and encouraged to go to sleep
[2023-12-22] MEDS: Calcium Carbonate 750 MG TAB.CHEW PO (02:29)
[2023-12-22] MEDS: 0.9 % Sodium Chloride Flush 3 ML SYRINGE IVFLUSH ×4 (02:29→21:38)
--- NOTE | 2023-12-22 04:21 | PC.NURSE ---
pt has been yelling out for nurse, for most of the night, c/o of left hip pain, given him, everything he can have, readjusted him, for comfort, put warm packs on his hip. He will calm down for a little while and then start yelling for the nurse again, and then he doesn't realize, he has been yelling, when asked not to yell. [place] Text Richard JOSHUA, and requested something for pain, or for zyprea, to help him calm down.
[2023-12-22] MEDS: OLANZapine 2.5 MG TABLET PO (04:40)
[2023-12-22] MEDS: Enoxaparin Sodium 100 MG/ML SYRINGE SUBCUT ×2 (04:40→21:37)
[2023-12-22 04:57] LABS: Hematocrit 31.3 % (42.0-52.0); Hemoglobin 9.4 g/dl (14.0-18.0); Mean Corpuscular Hemoglobin 23.7 pg (27.0-33.0); Mean Platelet Volume 10.2 fL (9.4-12.4); Platelet Count 260 X10*3/uL (160-400); Red Blood Count 3.96 X10*6/uL (4.60-5.80); White Blood Count 10.8 X10*3/uL (4.8-10.8)
[2023-12-22 05:19] LABS: Anion Gap 14 (12-20); Blood Urea Nitrogen 18 mg/dL (9-16); Calcium 8.6 mg/dL (8.4-10.2); Carbon Dioxide 21 mmol/L (22-29); Chloride 110 mmol/L (96-108); Creatinine Clr Calc Pharmacy 86.9; Estimated Glomerular Filt Rate > 60; Glucose Random 86 mg/dL (60-115); Potassium 3.9 mmol/L (3.3-5.1); Sodium 141 mmol/L (135-145)
[2023-12-22] MEDS: Omeprazole 20 MG CAPSULE.DR PO (06:36)
--- NOTE | 2023-12-22 07:02 | PC.NURSE ---
report given to Rebekah CASANOVA
[2023-12-22] MEDS: oxyCODONE HCl Immed Release 5 MG TABLET PO ×3 (08:40→22:01)
[2023-12-22] MEDS: LORazepam 1 MG TABLET PO ×2 (08:40→21:37)
[2023-12-22] MEDS: Gabapentin 100 MG CAPSULE 200 MG PO ×2 (08:41→21:37)
[2023-12-22] MEDS: Metoprolol Tartrate 25 MG TABLET PO ×2 (08:41→21:38)
[2023-12-22] MEDS: Loratadine 10 MG TABLET PO (08:41)
--- NOTE | 2023-12-22 10:19 | PC.NURSE ---
Morning meds delayed d/t not being loaded into pyxis. Pharmacy notified and will bring up meds.
[2023-12-22] MEDS: Venlafaxine HCL 25 MG TABLET 37.5 MG PO (10:30)
[2023-12-22] MEDS: Fluticasone Propionate Nasal 16 GM SPRAY 1 SPRAY NOSTRIL-B (10:30)
[2023-12-22] MEDS: Venlafaxine HCL 25 MG TABLET 75 MG PO ×2 (10:30→21:37)
--- NOTE | 2023-12-22 11:29 | HO.PM.IMPN ---
Subjective Subjective Date of Service: 12/22/23 Interval History: Seen and examined this morning Follow-up for bilateral PE Denies shortness of breath at rest no palpitations pt forgetful Review of Systems Review of Systems: Yes all other systems are reviewed and are negative Constitutional Constitutional: Denies chills and Denies fever(s) Cardiovascular Cardiovascular: Denies chest pain, Denies palpitations and Denies dyspnea Respiratory Respiratory: Denies cough and Denies dyspnea Endocrine Endocrine: Denies palpitations Physical Exam Vital Signs: Vital Signs: Last Vital Signs Temp 98.2 F 12/21/23 14:56 Pulse 72 12/22/23 08:48 Resp 20 12/22/23 08:48 BP 130/78 12/22/23 08:48 Pulse Ox 98 12/22/23 08:48 O2 Del Method Room Air 12/22/23 08:48 BMI result Body Mass Index 29.8 Const: General: cooperative, comfortable, no acute distress, alert and awake Nutritional Appearance: average body habitus Orientation/consciousness: oriented to person and oriented to place Resp: Effort & Inspection: normal respiratory effort, able to speak in complete sentences, no respiratory distress and no use of accessory muscles Auscultation: clear to auscultation bilaterally Cardio: Rate: tachycardic GI: Inspection: No distended Palpation (GI): Soft to palpation Skin: Other: old bruising left shoulder/upper back; skin tear left shoulder Neuro: General: oriented to person, oriented to place, moves all extremities and CN's II-XI intact bilaterally Extrem: General: Yes no pedal edema Objective Data Active Medications Acetaminophen (Acetaminophen 325 Mg Tablet) 650 mg PO Q6H PRN PRN Reason: Pain, Mild (Pain Scale 1-3), fever or headache Last Admin: 12/22/23 11:18 Dose: 650 mg Documented By: SHELLEY Calcium Carbonate (Calcium Carbonate 750 Mg Tab.Chew) 750 mg PO Q4H PRN PRN Reason: Heartburn Last Admin: 12/22/23 02:29 Dose: 750 mg Documented By: PROSPER Calcium Carbonate (Calcium Carbonate 750 Mg Tab.Chew) 750 mg PO BID PRN PRN Reason: Indigestion Divalproex Sodium (Divalproex Sodium 500 Mg Tablet.Dr) 500 mg PO BEDTIME [facility] Last Admin: 08/24/24 20:40 Dose: 500 mg Documented By: PROSPER Enoxaparin Sodium (Enoxaparin Sodium 100 Mg/Ml Syringe) 100 mg 1 mg/kg (100 mg) SUBCUT Q12H [facility] Last Admin: 12/22/23 04:40 Dose: 100 mg Documented By: PROSPER Fluticasone Propionate (Fluticasone Propionate Nasal 16 Gm [place]) 1 spray NOSTRIL-B BID [facility] Last Admin: 12/22/23 10:30 Dose: 1 spray Documented By: SHELLEY Gabapentin (Gabapentin 100 Mg Capsule) 200 mg PO BID [facility] Last Admin: 12/22/23 08:41 Dose: 200 mg Documented By: SHELLEY Lidocaine (Lidocaine 4 % Patch Adh..Patch) 1 patch TRANSDERMA DAILY PRN; Protocol PRN Reason: Pain, Mild (Pain Scale 1-3) Last Admin: 12/22/23 00:23 Dose: 1 patch Documented By: PROSPER Loratadine (Loratadine 10 Mg Tablet) 10 mg PO DAILY [facility] Last Admin: 12/22/23 08:41 Dose: 10 mg Documented By: SHELLEY Lorazepam (Lorazepam 1 Mg Tablet) 1 mg PO BID PRN PRN Reason: Anxiety Last Admin: 12/22/23 08:40 Dose: 1 mg Documented By: SHELLEY Melatonin (Melatonin 3 Mg Tablet) 6 mg PO BEDTIME PRN PRN Reason: Insomnia Last Admin: 12/21/23 20:39 Dose: 6 mg Documented By: PROSPER Metoprolol Tartrate (Metoprolol Tartrate 25 Mg Tablet) 25 mg PO BID [facility]; Protocol Last Admin: 12/22/23 08:41 Dose: 25 mg Documented By: SHELLEY Non-Formulary Medication (Vibegron [Gemtesa]) 75 mg PO DAILY [facility] Nystatin/Triamcinolone Acetonide (Nystatin/Triamcinolone Cream 15 Gm Tube) 1 appl TOPICAL BID PRN; Protocol PRN Reason: Rash Omeprazole (Omeprazole 20 Mg Capsule.Dr) 20 mg PO DAILY@0630 [facility] Last Admin: 12/22/23 06:36 Dose: 20 mg Documented By: PROSPER Oxycodone HCl (Oxycodone Hcl Immed Release 5 Mg Tablet) 5 mg PO TID PRN PRN Reason: Pain, Moderate(Pain Scale 4-6) Last Admin: 12/22/23 08:40 Dose: 5 mg Documented By: SHELLEY Polyethylene Glycol (Polyethylene Glycol 3350 17 Gm Powd.Pack) 17 gm PO DAILY PRN PRN Reason: Constipation Sodium Chloride (0.9 % Sodium Chloride Flush 3 Ml Syringe) 3 ml IVFLUSH QSHIFT [facility] Last Admin: 12/22/23 08:43 Dose: 3 ml Documented By: SHELLEY Tamsulosin HCl (Tamsulosin Hcl 0.4 Mg Capsule) 0.4 mg PO BEDTIME [facility] Last Admin: 12/21/23 20:39 Dose: 0.4 mg Documented By: PROSPER Venlafaxine HCl (Venlafaxine Hcl 25 Mg Tablet) 75 mg PO BID [facility] Last Admin: 12/22/23 10:30 Dose: 75 mg Documented By: SHELLEY Venlafaxine HCl (Venlafaxine Hcl 25 Mg Tablet) 37.5 mg PO DAILY [facility] Last Admin: 12/22/23 10:30 Dose: 37.5 mg Documented By: SHELLEY Labs 12/22/23 04:30 12/22/23 04:30 Labs: Laboratory Results - last 24 hr 12/21/23 12/21/23 12/21/23 11:45 11:46 16:00 MCV 78.1 L 77.7 L MCH 24.2 L 23.7 L MCHC 31.0 30.5 L RDW 18.1 H 18.1 H Plt Count 246 264 MPV 9.7 9.3 L Immature Gran % (Auto) 0.6 H Neut % (Auto) 66.1 Lymph % (Auto) 23.4 [place] % (Auto) 8.2 Eos % (Auto) 1.1 Baso % (Auto) 0.6 Lymph # (Auto) 2.4 [place] # (Auto) 0.8 Eos # (Auto) 0.1 Baso # (Auto) 0.1 Abs Immat Gran (auto) 0.06 H Absolute Neuts (auto) 6.8 Absolute Nucleated RBC 0.000 0.000 Nucleated RBC % (auto) 0.0 0.0 PT 12.9 12.8 INR 1.1 1.1 APTT 35.9 Anion Gap 12 Estim Creat Clear Calc 82.2 Estimated GFR > 60 Random Glucose 98 Calcium 8.5 Total Bilirubin 0.4 AST 15 ALT 12 Alkaline Phosphatase 96 Troponin I High Sens 10.0 D B-Natriuretic Peptide 158 H Total Protein 6.4 L Albumin 3.6 Influenza Type A (PCR) NEGATIVE Influenza Type B (PCR) NEGATIVE RSV RNA Qual (PCR) NEGATIVE SARS-CoV-2 RNA (RT-PCR) NEGATIVE 12/22/23 04:30 MCV 79.0 L MCH 23.7 L MCHC 30.0 L RDW 18.0 H Plt Count 260 MPV 10.2 Immature Gran % (Auto) Neut % (Auto) Lymph % (Auto) [place] % (Auto) Eos % (Auto) Baso % (Auto) Lymph # (Auto) [place] # (Auto) Eos # (Auto) Baso # (Auto) Abs Immat Gran (auto) Absolute Neuts (auto) Absolute Nucleated RBC 0.000 Nucleated RBC % (auto) 0.0 PT INR APTT Anion Gap 14 Estim Creat Clear Calc 86.9 Estimated GFR > 60 Random Glucose 86 Calcium 8.6 Total Bilirubin AST ALT Alkaline Phosphatase Troponin I High Sens B-Natriuretic Peptide Total Protein Albumin Influenza Type A (PCR) Influenza Type B (PCR) RSV RNA Qual (PCR) SARS-CoV-2 RNA (RT-PCR) Assessment and Plan (1) Pulmonary embolism: Status: Acute (2) DVT (deep venous thrombosis): Status: Acute Plan This is a 76-year-old male with history of hypertension prostate cancer status post radiation, PE on Eliquis, PAF, mood disorder, depression, PUD, recent stay in overflow area of the emergency department from December 05 to December 17 who presents to the emergency department with shortness of breath found to have bilateral PE and left lower extremity DVT Extensive bilateral PE/LLE DVT Due to missing previous doses of Eliquis Continue therapeutic lovenox, transition to po eliquis No evidence of heart strain on CTA Troponin negative, mild elevation in BNP similar to previous. No evidence of acute CHF No hypoxia Tele monitoring Atrial fibrillation with rapid ventricular response Received a dose of IV Lopressor in the ED heart rate under better control on home dose oral Lopressor Anticoagulation with Lovenox for now, transition to po eliquis when medically appropriate weakness/previous prolonged ED stay PT eval pending Unspecified cognitive impairment/mood disorder Continue Depakote, lorazepam, venlafaxine Chronic left hip/low back pain Continue gabapentin, oxycodone PUD Continue PPI BPH Continue Flomax Hypertension Hold amlodipine for now, resume as blood pressure allows Continue metoprolol DVT prophylaxis-Lovenox Code status-DNR/DNI Requires ongoing inpatient stay in the hospital for management of acute bilateral PE and close monitoring of cardiopulmonary status as well as safe disposition Quality Stroke Does the patient have a stroke diagnosis?: No VTE Prior VTE?: Yes VTE Risk Level:: Medical - moderate - high VTE Device Contraindication: Treatment Not Indicated VTE Drug Contraindication: N/A - Med Ordered
--- NOTE | 2023-12-22 15:31 | PC.NURSE ---
Pt BP soft . Different size cuff placed, BP taken on both arms L:82/47 R: 92/62. This RN reached out to JOSIANE Olvera.
[2023-12-22 16:00] LABS: INTERNATIONAL NORM RATIO 1.1 (0.9-1.1)
[2023-12-22] MEDS: Divalproex Sodium 500 MG TABLET.DR PO (21:37)
[2023-12-22] MEDS: Tamsulosin HCL 0.4 MG CAPSULE PO (21:37)
[2023-12-22] MEDS: Melatonin 3 MG TABLET 6 MG PO (21:37)
[2023-12-23] VITALS (8 sets, daily range): BP systolic 94–120; BP diastolic 58–77; PULSE 61–83; RESP 16–18; TEMP 36–36.2; O2SAT 95–98
[2023-12-23] MEDS: Enoxaparin Sodium 100 MG/ML SYRINGE SUBCUT (05:38)
[2023-12-23] MEDS: Omeprazole 20 MG CAPSULE.DR PO (05:38)
[2023-12-23] MEDS: Acetaminophen 325 MG TABLET 650 MG PO ×3 (05:38→23:26)
[2023-12-23] MEDS: Venlafaxine HCL 25 MG TABLET 37.5 MG PO (08:13)
[2023-12-23] MEDS: LORazepam 1 MG TABLET PO ×2 (08:13→23:26)
[2023-12-23] MEDS: Metoprolol Tartrate 25 MG TABLET PO (08:13)
[2023-12-23] MEDS: Loratadine 10 MG TABLET PO (08:13)
[2023-12-23] MEDS: Gabapentin 100 MG CAPSULE 200 MG PO ×2 (08:13→20:41)
[2023-12-23] MEDS: oxyCODONE HCl Immed Release 5 MG TABLET PO ×3 (08:13→20:41)
--- NOTE | 2023-12-23 08:13 | HO.PM.IMPN ---
Subjective Subjective Date of Service: 12/23/23 Interval History: Seen in follow up for b/l PEs Interval history: No complaints, no overnight events. No sob, chest pain. Bp soft, no hypotension Review of Systems Review of Systems: Yes all other systems are reviewed and are negative Physical Exam Vital Signs: Vital Signs: Last Vital Signs Temp 96.8 F 12/23/23 03:11 Pulse 61 12/23/23 03:11 Resp 18 12/23/23 03:11 BP 108/62 12/23/23 03:11 Pulse Ox 96 12/23/23 03:11 O2 Del Method Room Air 12/23/23 03:11 O2 Flow Rate 96 12/22/23 15:05 BMI result Body Mass Index 29.6 Constitutional - Awake and Alert, No apparent distress Eyes - PERRLA, EOMI Cardiovascular - S1S2, RRR, No edema Respiratory - Normal lung expansion, Normal respiratory effort, No respiratory distress, CTA bilaterally Gastrointestinal - NT / ND; +BS; No rebound or guarding Extremities - no calf tenderness bilaterally, no swelling Skin - Warm/Dry, multiple areas of ecchymosis including ble, clavicles, and upper back Neurological - Alert & oriented x3 Psychological - Appropriate affect Objective Data Active Medications Acetaminophen (Acetaminophen 325 Mg Tablet) 650 mg PO Q6H PRN PRN Reason: Pain, Mild (Pain Scale 1-3), fever or headache Last Admin: 12/23/23 05:38 Dose: 650 mg Documented By: PRABHJOT Apixaban (Apixaban 5 Mg Tablet) 10 mg PO BID [facility] Stop: 12/30/23 09:01 Calcium Carbonate (Calcium Carbonate 750 Mg Tab.Chew) 750 mg PO Q4H PRN PRN Reason: Heartburn Last Admin: 12/22/23 02:29 Dose: 750 mg Documented By: PROSPER Calcium Carbonate (Calcium Carbonate 750 Mg Tab.Chew) 750 mg PO BID PRN PRN Reason: Indigestion Divalproex Sodium (Divalproex Sodium 500 Mg Tablet.Dr) 500 mg PO BEDTIME [facility] Last Admin: 12/22/23 21:37 Dose: 500 mg Documented By: PRABHJOT Fluticasone Propionate (Fluticasone Propionate Nasal 16 Gm [place]) 1 spray NOSTRIL-B BID [facility] Last Admin: 12/22/23 21:51 Dose: Not Given Documented By: PRABHJOT Non-Admin Reason: Med Not Available Gabapentin (Gabapentin 100 Mg Capsule) 200 mg PO BID [facility] Last Admin: 12/22/23 21:37 Dose: 200 mg Documented By: PRABHJOT Lidocaine (Lidocaine 4 % Patch Adh..Patch) 1 patch TRANSDERMA DAILY PRN; Protocol PRN Reason: Pain, Mild (Pain Scale 1-3) Last Admin: 12/22/23 00:23 Dose: 1 patch Documented By: PROSPER Loratadine (Loratadine 10 Mg Tablet) 10 mg PO DAILY [facility] Last Admin: 12/22/23 08:41 Dose: 10 mg Documented By: SHELLEY Lorazepam (Lorazepam 1 Mg Tablet) 1 mg PO BID PRN PRN Reason: Anxiety Last Admin: 12/22/23 21:37 Dose: 1 mg Documented By: PRABHJOT Melatonin (Melatonin 3 Mg Tablet) 6 mg PO BEDTIME PRN PRN Reason: Insomnia Last Admin: 12/22/23 21:37 Dose: 6 mg Documented By: PRABHJOT Metoprolol Tartrate (Metoprolol Tartrate 25 Mg Tablet) 25 mg PO BID [facility]; Protocol Last Admin: 12/22/23 21:38 Dose: 25 mg Documented By: PRABHJOT Non-Formulary Medication (Vibegron [Gemtesa]) 75 mg PO DAILY [facility] Nystatin/Triamcinolone Acetonide (Nystatin/Triamcinolone Cream 15 Gm Tube) 1 appl TOPICAL BID PRN; Protocol PRN Reason: Rash Omeprazole (Omeprazole 20 Mg Capsule.) 20 mg PO DAILY@0630 [facility] Last Admin: 12/23/23 05:38 Dose: 20 mg Documented By: PRABHJOT Oxycodone HCl (Oxycodone Hcl Immed Release 5 Mg Tablet) 5 mg PO TID PRN PRN Reason: Pain, Moderate(Pain Scale 4-6) Last Admin: 12/22/23 22:01 Dose: 5 mg Documented By: PRABHJOT Polyethylene Glycol (Polyethylene Glycol 3350 17 Gm Powd.Pack) 17 gm PO DAILY PRN PRN Reason: Constipation Sodium Chloride (0.9 % Sodium Chloride Flush 3 Ml Syringe) 3 ml IVFLUSH QSHIFT [facility] Last Admin: 12/22/23 21:38 Dose: 3 ml Documented By: PRABHJOT Tamsulosin HCl (Tamsulosin Hcl 0.4 Mg Capsule) 0.4 mg PO BEDTIME [facility] Last Admin: 12/22/23 21:37 Dose: 0.4 mg Documented By: PRABHJOT Venlafaxine HCl (Venlafaxine Hcl 25 Mg Tablet) 75 mg PO BID [facility] Last Admin: 12/22/23 21:37 Dose: 75 mg Documented By: PRABHJOT Venlafaxine HCl (Venlafaxine Hcl 25 Mg Tablet) 37.5 mg PO DAILY [facility] Last Admin: 12/22/23 10:30 Dose: 37.5 mg Documented By: SHELLEY Labs 12/22/23 04:30 12/22/23 04:30 Labs: Laboratory Results - last 24 hr 12/22/23 15:46 PT 13.0 INR 1.1 Assessment and Plan (1) Pulmonary embolism: Status: Acute (2) DVT (deep venous thrombosis): Status: Acute Plan This is a 76-year-old male with history of hypertension prostate cancer status post radiation, PE on Eliquis, PAF, mood disorder, depression, PUD, recent stay in overflow area of the emergency department from December 05 to December 17 who presents to the emergency department with shortness of breath found to have bilateral PE and left lower extremity DVT Extensive bilateral PE/LLE DVT Due to missing previous doses of Eliquis discontinue therapeutic lovenox, transition to po eliquis this evening- pt states he has only been taking eliquis once daily at home. Educated on twice daily administration No evidence of heart strain on CTA Troponin negative, mild elevation in BNP similar to previous. No evidence of acute CHF No hypoxia Tele monitoring Atrial fibrillation with rapid ventricular response Received a dose of IV Lopressor in the ED heart rate under better control on home dose oral Lopressor transition back to eliquis weakness/previous prolonged ED stay PT recommending home services Unspecified cognitive impairment/mood disorder Continue Depakote, lorazepam, venlafaxine Chronic left hip/low back pain Continue gabapentin, oxycodone PUD Continue PPI BPH Continue Flomax Hypertension blood pressures remain soft but no hypotension. Decrease metoprolol to 12.5mg BID. Continue holding amlodipine DVT prophylaxis-eliquis Code status-DNR/DNI Requires ongoing inpatient stay in the hospital for management of acute bilateral PE and close monitoring of cardiopulmonary status as well as safe disposition. PT recommending home with. Transition to eliquis this evening and reduce metoprolol dose. Monitor blood pressures and discharge home with services tomorrow Quality Stroke Does the patient have a stroke diagnosis?: No VTE Prior VTE?: Yes VTE Risk Level:: Medical - moderate - high VTE Device Contraindication: Treatment Not Indicated VTE Drug Contraindication: N/A - Med Ordered
[2023-12-23] MEDS: Venlafaxine HCL 25 MG TABLET 75 MG PO ×2 (08:19→20:40)
[2023-12-23] MEDS: Fluticasone Propionate Nasal 16 GM SPRAY 1 SPRAY NOSTRIL-B (08:19)
[2023-12-23] MEDS: 0.9 % Sodium Chloride Flush 3 ML SYRINGE IVFLUSH ×2 (08:24→16:19)
--- NOTE | 2023-12-23 08:28 | MHC.CM.PN ---
CM met with Patient at bedside and addressed IMM with him, providing Patient with the original and a copy has been placed on the chart. Patient lives alone in an apartment, is active with [facility], and he uses a cane and a walker to assist with mobility.Home/resume said services is the goal and CM has initiated and will follow for dc planning. Patient's PCP is Dr. Thania day and his Friend/HCP/Yg will transport to home.
[2023-12-23] MEDS: Melatonin 3 MG TABLET 6 MG PO (20:40)
[2023-12-23] MEDS: Apixaban 5 MG TABLET 10 MG PO (20:41)
[2023-12-23] MEDS: Tamsulosin HCL 0.4 MG CAPSULE PO (20:41)
[2023-12-23] MEDS: Divalproex Sodium 500 MG TABLET.DR PO (20:42)
[2023-12-23] MEDS: Metoprolol Tartrate 12.5 MG HALFTAB PO (21:02)
[2023-12-24 03:16] VITALS: BP 115/66; PULSE 74; RESP 18; TEMP 36.1; O2SAT 97
[2023-12-24] MEDS: oxyCODONE HCl Immed Release 5 MG TABLET PO (04:06)
[2023-12-24] MEDS: Lidocaine 4 % Patch ADH..PATCH 1 PATCH TRANSDERMA (04:30)
[2023-12-24 05:05] VITALS: RESP 16
[2023-12-24] MEDS: Acetaminophen 325 MG TABLET 650 MG PO (06:37)
[2023-12-24] MEDS: Omeprazole 20 MG CAPSULE.DR PO (06:37)
--- NOTE | 2023-12-24 07:12 | PM.DS ---
DS: Providers Provider Date of Service: 12/24/23 Date of admission: 12/21/23 16:37 Date of discharge: 12/24/23 Primary care physician: Thania Almaraz MD Admitting clinician: May Hartley Attending physician on admission: Laya Rodriguez Attending physician on discharge: Daryl Cohen Discharging clinician: Grisel Pratt DS: Diagnosis Discharge Diagnosis (1) Pulmonary embolism: Status: Acute (2) DVT (deep venous thrombosis): Status: Acute DS: Summary Hospital Course Hospital Course: Chief Complaint: Shortness of breath This is a 78-year-old male who came to the emergency department today with complaints of shortness of breath. Workup in the emergency department included CTA which showed extensive bilateral pulmonary emboli extending from the lobar level distally on both sides with no evidence of heart strain. Left lower extremity venous ultrasound showing nonocclusive DVT in the distal left popliteal vein. Patient was given a dose of therapeutic Lovenox. Also noted to be in AFib with rapid ventricular response requiring a dose of IV Lopressor. Patient denies any chest pain or palpitations at this time. Patient will be admitted for further management. Hospital course: Pt admitted to [facility] for further management of extensive bilateral PE and DVT after midding multiple doses of eliquis while in the ED. Pt also informed provider that he had been taking eliquis incorrectly, only taking once daily at home for weeks if not months. He was initially treated with therapeutic lovenox. CTA did not reveal any evidence of R heart strain and trops were negative with only mild elevation in BNP, similar to priors, and no clinical evidence of actue CHF. Vitals stable, no hypotension or hypoxia. There was also an episode of rapid afib while in the ED requiring IV lopressor x1 and then PO metoprolol resumed with good control over heart rate. Though no hypotension, blood pressures were soft and metoprolol was decreased to 12.5mg BID. Ultimately was transitioned back to eliquis 5mg BID. He was continued home gabapentin and oxycodone for chronic left hip and back pain, though did frequently forget when he was given doses. he does have outpt appt with pain management. For unspecified cognitive impairment and mood disorder, was continued on depakote, ativan, and venlafaxine. Continued on ppi for GERD and flomax for BPH. Recommend discontinuing amlodipine as this was held on admission with good control over BP with metorpolol as monotherapy as noted above. Was seen by PT recommending pt home with vna services. Follow up with PCP with outpatient echocardiogram. Status at Discharge Functional status at discharge: uses cane/walker Overall status at discharge: patient is progressing back to baseline Time Attestation Discharge Coordination Time (in mins): 35 Quality: Safe Use of Opioids Does Pt have an Active Cancer Diagnosis on the Problem List?: No Quality: Stroke Does the patient have a stroke diagnosis?: No Physical Exam Vital Signs: Vital Signs: Last Vital Signs Temp 96.9 F 12/24/23 03:16 Pulse 74 12/24/23 03:16 Resp 16 12/24/23 05:05 BP 115/66 12/24/23 03:16 Pulse Ox 97 12/24/23 03:16 O2 Del Method Room Air 12/24/23 03:16 O2 Flow Rate 96 12/22/23 15:05 BMI result Body Mass Index 29.6 DS: Data Data Completed and Pending Completed studies during hospitalization [Text1]: Procedures Insertion of Infusion Device into Superior Vena Cava, Percutaneous Approach (06/09/22) Release Peritoneum, Open Approach (06/09/22) Ultrasonography of Superior Vena Cava, Guidance (06/09/22) Discharge Plan Discharge Anticipated Discharge Date/Time: 12/24/23 07:19 Patient Disposition: Home Health Service Discharge Diagnosis: Bilateral PE and DVT Referrals: Sung,Thania Childs MD [Primary Care Provider] - 1 Week Discharge Medications: Continued (DME) BD Safety-Jackie Detachable Needl 3 mL 25 gauge x 5/8 syringe See Rx Instructions .ROUTE .MEDSUPPLY Qty: 100 12RF Rx Instructions: As directed calcium carbonate 500 mg calcium (1,250 mg) Tablet,Chewable 500 mg PO BID PRN (Reason: Indigestion) diclofenac sodium 1 % Gel 4 g TOPICAL TID Rx Instructions: Apply topically to right hip. lorazepam 1 mg tablet 1 mg PO BID PRN (Reason: Anxiety) Qty: 60 0RF acetaminophen [Tylenol] 325 mg Tablet 650 mg PO TID acetaminophen [Tylenol] 325 mg Tablet 650 mg PO Q4H PRN (Reason: Fever Or Pain) Rx Instructions: Discomfort/temp 101 or greater. magnesium hydroxide [Milk of Magnesia] 400 mg/5 mL Suspension 30 ml PO DAILY PRN (Reason: Constipation) Rx Instructions: for no BM in 3 DAYS tamsulosin [Flomax] 0.4 mg Capsule 0.4 mg PO BEDTIME gabapentin 100 mg Capsule 200 mg PO BID polyethylene glycol 3350 [Miralax] 17 gram/dose Powder 17 g PO DAILY PRN (Reason: Constipation) Rx Instructions: Mix with 4-6 Oz of fluid of choice. simethicone 80 mg Tablet,Chewable 80 mg PO Q8H PRN (Reason: Indigestion) oxycodone 5 mg Tablet 5 mg PO TID PRN (Reason: Pain) methyl salicylate-menthol Cream 1 appl TOPICAL BID Rx Instructions: Neck and shoulders melatonin 10 mg Tablet 10 mg PO BEDTIME naloxone [Narcan] 4 mg/actuation [place],Non-Aerosol 4 mg INTRANASAL Q3M PRN (Reason: sedation/unresponsive) Rx Instructions: spray 1 dose into ONE nostril; alternate nostrils w each dose until help arrives venlafaxine 75 mg tablet 75 mg PO BID venlafaxine 37.5 mg tablet 37.5 mg PO DAILY lidocaine [Lidocaine Pain Relief] 4 % adhesive patch,medicated 1 patch topical DAILY PRN (Reason: pain) cetirizine 10 mg tablet 10 mg PO DAILY divalproex [Depakote] 500 mg tablet,delayed release (DR/EC) 500 mg PO BEDTIME pantoprazole 40 mg tablet,delayed release (DR/EC) 40 mg PO DAILY@0630 nystatin-triamcinolone 100,000-0.1 unit/g-% cream 1 appl topical BID PRN (Reason: Rash) fluticasone propionate 50 mcg/actuation spray,suspension 1 spray intranasal BID Gemtesa 75 mg tablet 75 mg PO DAILY apixaban 5 mg tablet 5 mg PO BID 90 Days Qty: 180 2RF Changed metoprolol tartrate 25 mg Tablet 12.5 mg PO BID Qty: 45 0RF Protocol: Hold for SBP/HR < HOLD for SBP < : 120 HOLD for HR < : 60 Discontinued amlodipine 2.5 mg tablet 2.5 mg PO DAILY Discharge Orders: Discharge Order (Routine); Ordered 12/24/23 Ordered By: Grisel Pratt Diet: Advance to usual diet Activity on Discharge: As tolerated Stand Alone Forms: Patient Portal Discharge page Print Language: Belarusian Care Plan Goals: Continue eliquis 5mg TWICE DAILY to treat and prevent DVT/PE Health Concerns: Bilateral pulmonary embolism/DVT Atrial fibrillation Plan of Treatment: Bilateral PE/DVT -continue eliquis 5mg TWICE DAILY Atrial fibrillation/Hypertension -STOP amlodipine. DECREASE metoprolol tp 12.5mg twice daily -Continue eliquis TWICE DAILY Assessment: See above. See discharge summary
[2023-12-24 07:48] VITALS: BP 118/78; PULSE 63; RESP 20; TEMP 36.1; O2SAT 96
[2023-12-24] MEDS: Loratadine 10 MG TABLET PO (08:42)
[2023-12-24] MEDS: Venlafaxine HCL 25 MG TABLET 37.5 MG PO (08:42)
[2023-12-24] MEDS: Apixaban 5 MG TABLET 10 MG PO (08:42)
[2023-12-24] MEDS: Metoprolol Tartrate 12.5 MG HALFTAB PO (08:42)
[2023-12-24] MEDS: Gabapentin 100 MG CAPSULE 200 MG PO (08:42)
[2023-12-24] MEDS: Venlafaxine HCL 25 MG TABLET 75 MG PO (08:43)
[2023-12-24] MEDS: Fluticasone Propionate Nasal 16 GM SPRAY 1 SPRAY NOSTRIL-B (08:45)
[2023-12-24] MEDS: LORazepam 1 MG TABLET PO (08:50)
--- NOTE | 2023-12-24 09:50 | MHC.CM.PN ---
Patient has been medically cleared for dc to home today, with services. Patient is active with [facility], who has been notified of today's dc.Last IMM addressed yesterday Friend to transport.
== END 2023-12-24 10:55 | disposition home health service (06) | DRG 299 ==
LOC: HO.ED 15:44 → HO.EDOVER 16:43 → HO.IMC 12-22 17:30
PROVIDERS: Admitting Provider Physician Assistant Medical; Emergency Provider Emergency Medicine; PCP Internal Medicine; Visit Provider Physician Assistant
DX: I82.432 Acute embolism and thrombosis of left popliteal vein (principal); I26.94 Multiple subsegmental thrombotic pulmonary emboli without acute cor pulmonale; F39 Unspecified mood [affective] disorder; G89.29 Other chronic pain; K21.9 Gastro-esophageal reflux disease without esophagitis; M25.552 Pain in left hip; M54.50 Low back pain, unspecified; N40.0 Benign prostatic hyperplasia without lower urinary tract symptoms; I10 Essential (primary) hypertension; K27.9 Peptic ulcer, site unspecified, unspecified as acute or chronic, without hemorrhage or perforation; T45.516A Underdosing of anticoagulants, initial encounter; I48.91 Unspecified atrial fibrillation; Z20.822 Contact with and (suspected) exposure to COVID-19; Z87.891 Personal history of nicotine dependence; Z79.899 Other long term (current) drug therapy
CPT/HCPCS: 0241U; 36415; 71045; 71275; 80048; 80053; 83880; 84484; 85025; 85027; 85610; 85730; 93005; 93971; 97162; 99285; J1650; J2270; Q9967

== ENCOUNTER → 2023-12-21 16:37 | Outpatient (BNV) | payer MEDICARE, MEDICAID, SELFPAY | PROVIDERS: Admitting Provider Physician Assistant Medical; Emergency Provider Emergency Medicine; PCP Internal Medicine; Visit Provider Physician Assistant Medical | DX: I82.432 Acute embolism and thrombosis of left popliteal vein (principal); I26.94 Multiple subsegmental thrombotic pulmonary emboli without acute cor pulmonale | CPT/HCPCS: 99223; 99232; 99239 ==

== ENCOUNTER 2023-12-26 06:05 | Emergency (ER) | payer MEDICARE, OTHER, SELFPAY ==
[2023-12-26] VITALS (7 sets, daily range): BP systolic 110–128; BP diastolic 3–84; PULSE 58–73; RESP 16–18; TEMP 36.3–36.8; O2SAT 94–99; BMI 29.8
--- NOTE | ~2023-12-26 | XR_ITS ---
EXAMINATION: XR HIP, LEFT CLINICAL INFORMATION: Pain COMPARISON: 09/28/2023 TECHNIQUE: Two views of the left hip and a single view of the pelvis. 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 There is subluxation of the femur superiorly. The acetabular component remains in place. Radiation seeds are noted in the prostate bed. Evidence of prior hernia repair. No pelvic fracture or bony destructive lesions. Degenerative changes are visualized in the spine. 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 Electronically signed by: Fred Mccullough MD 12/26/2023 09:46 AM EDT
--- NOTE | 2023-12-26 06:20 | PC.NURSE ---
Pt ca&ox4, no signs of distress. Pt reports 8/10 hip pain (chronic) Pt denies all other sxs Pt vitals stable Plan of care ongoing.
--- NOTE | 2023-12-26 06:40 | ED.GENADULT ---
HPI - General Adult General Chief complaint: General Medical Stated complaint: HIP PAIN Time Seen by Provider: 12/26/23 06:35 Source: patient and EMS Mode of arrival: EMS Limitations: physical limitation (patient has dementia) History of Present Illness ED Provider: Chen Tiwari PA-C HPI narrative: Patient is a 78 year old assigned male at with a history of HTN, GERD, DDD, chronic left hip pain, PE and DVT on Eliquis, and atrial fib presenting to the emergency department today with continued left hip pain. Patient states that he was recently admitted to the hospital here for something else, discharged, and continues to have left hip pain that is keeping him up at night. Patient states that he uses a wheelchair as he cannot bear weight on his left lower extremity. Patient denies any dizziness, lightheadedness, abdominal pain, nausea, vomiting, fever, chills, blurry vision, double vision, loss of vision, chest pain, difficulty breathing, shortness of breath, back pain, night sweats, pain with urination, increased urinary frequency, increased urinary urgency, blood in his urine or stool, syncope or a near syncopal episode, recent trauma or falls, bowel incontinence, bladder incontinence, or any other complaints at this time. Relieving factors: none Exacerbating factors: none Associated symptoms: denies other symptoms Treatments prior to arrival: none Related Data Home Medications ?Medication ?Instructions ?Recorded ?Confirmed acetaminophen 325 mg tablet 650 mg PO Q4H PRN Fever Or Pain 09/30/23 12/26/23 (Tylenol) diclofenac sodium 1 % topical gel 4 g topical TID 09/30/23 12/26/23 gabapentin 100 mg capsule 200 mg PO BID 09/30/23 12/26/23 magnesium hydroxide 400 mg/5 mL 30 ml PO DAILY PRN Constipation 09/30/23 12/26/23 oral suspension (Milk of Magnesia) melatonin 10 mg tablet 10 mg PO BEDTIME 09/30/23 12/26/23 polyethylene glycol 3350 17 17 g PO DAILY PRN Constipation 09/30/23 12/26/23 gram/dose oral powder (Miralax) simethicone 80 mg chewable tablet 80 mg PO Q8H PRN Indigestion 09/30/23 12/26/23 cetirizine 10 mg tablet 10 mg PO DAILY PRN Allergy Symptoms 11/09/23 12/26/23 divalproex 500 mg tablet,delayed 500 mg PO BEDTIME 11/09/23 12/26/23 release (Depakote) fluticasone propionate 50 1 spray intranasal BID 11/09/23 12/26/23 mcg/actuation nasal spray,suspension nystatin-triamcinolone 100,000 1 appl topical BID PRN Rash 11/09/23 12/26/23 unit/g-0.1 % topical cream pantoprazole 40 mg tablet,delayed 40 mg PO DAILY@0630 11/09/23 12/26/23 release vibegron 75 mg tablet (Gemtesa) 75 mg PO DAILY 11/09/23 12/26/23 tamsulosin 0.4 mg capsule 0.4 mg PO DAILY 12/26/23 12/26/23 venlafaxine 150 mg 150 mg PO DAILY 12/26/23 12/26/23 capsule,extended release 24 hr (Effexor XR) venlafaxine 37.5 mg 37.5 mg PO DAILY 12/26/23 12/26/23 capsule,extended release 24 hr (Effexor XR) Previous Rx's ?Medication ?Instructions ?Recorded syringe with needle, safety 3 mL #100 ea 06/02/21 25 gauge x 5/8 (BD Safety-Jackie Detachable Needle) lorazepam 1 mg tablet 1 mg PO BID PRN Anxiety #60 tabs 12/03/23 apixaban 5 mg tablet 5 mg PO BID 90 days #180 tabs 12/24/23 metoprolol tartrate 25 mg tablet 12.5 mg PO BID #45 tabs 12/24/23 oxycodone 10 mg tablet 10 mg PO Q8H #7 tabs 12/26/23 Allergies Allergy/AdvReac Type Severity Reaction Status Date / Time carisoprodol [From Soma] Allergy Mild MENTAL Verified 12/26/23 06:18 STATUS CHANGE, BECOMES AGGRESIVE codeine [Codeine] Allergy Mild STOMACH Verified 12/26/23 06:18 UPSET, RASH gabapentin AdvReac Intermediate lousy Verified 12/26/23 06:18 feeling Review of Systems Constitutional: Constitutional: Reports no additional constitutional complaints, Denies chills, Denies fever(s) and Denies night sweats Eyes: Eyes: Reports no additional eye complaints, Denies blurry vision, Denies change in vision, Denies diplopia, Denies eye discharge, Denies loss of vision and Denies eye pain ENT: Denies dizziness Cardiovascular: Cardiovascular: Reports no additional cardiovascular complaints, Denies chest pain, Denies lightheadedness, Denies Loss of Consciousness and Denies dyspnea Respiratory: Respiratory: Reports no additional respiratory complaints and Denies dyspnea Gastrointestinal: Gastrointestinal: Reports no additional gastrointestinal complaints, Denies abdominal pain, Denies melena, Denies hematochezia, Denies change in bowel habits and Denies change in stool character Genitourinary: Genitourinary: Reports no additional male genitourinary complaints, Denies hematuria, Denies oliguria, Denies difficulty urinating, Denies dysuria, Denies urinary frequency, Denies urinary hesitancy, Denies urinary incontinence and Denies urinary urgency Musculoskeletal: Musculoskeletal: Reports no additional musculoskeletal complaints, Denies numbness and Denies tingling Comments: left hip pain Neurologic: Denies dizziness, Denies loss of vision, Denies numbness and Denies tingling Psychiatric: Psychiatric: Reports no additional psychiatric complaints Endocrine: Endocrine: Reports no additional endocrine complaints Hematologic/Lymphatic: Hematologic/Lymphatic: Reports no additional hematologic/lymphatic complaints Allergic/Immunologic: Allergic/Immunologic: Reports no additional allergic/immunologic complaints [facility] Past Medical History Attestation statement: The following information was validated with the patient. Source: old records reviewed and nursing notes reviewed Medical History Incisional hernia Premature atrial complexes Shortness of breath Rash Asthma exacerbation Leukocytosis Serum potassium elevated Low vitamin D level Headache Fatigue Moderate recurrent major depression Hospital discharge follow-up Chest tightness Dyspnea on exertion Allergic bronchitis Generalized anxiety disorder Tinea cruris SOB (shortness of breath) on exertion Constipation Atrial fibrillation Knee fracture, left Wedge compression fracture of L1 vertebra Prostate cancer Iron deficiency anemia Obstructive sleep apnea Vitamin D deficiency Diverticular disease Obesity (BMI 30-39.9) Peptic ulcer disease Degenerative disc disease GERD (gastroesophageal reflux disease) Anxiety and depression Vitamin B12 deficiency Gout Hypertension Fatigue Dysuria Surgical History History of colonoscopy History of hemiarthroplasty of left hip H/O rectal polypectomy History of knee replacement procedure of left knee H/O hernia repair History of pyloroplasty History of bowel resection History of cholecystectomy Family History Family History Father Diabetes Acute kidney failure Glaucoma Mother Lung cancer Social History Social History Household Members: None Housing: Other Housing Other:: independent living Do you presently have visiting nurse or other home services: No Alcohol intake: never Comment: sitter at bedside Patient Tobacco Use Status: Former Tobacco user Tobacco use type: Cigar Smoked in Last 30 Days: No e-Cigarette/Vaping Use: Currently Using Second Hand Smoke Exposure: No Advance Directives: Yes Advance Directives on File: Yes Advance Directives Date on File: 07/03/22 Do you have a plan to hurt others: No Plan service: No Current occupational status: retired Cognitive needs: No Hearing needs: Yes Vision needs: Yes Physical Exam ED Vital Signs: Vital Signs - 24 hr 12/26/23 06:15 12/26/23 06:16 12/26/23 08:23 Temperature 97.6 F 97.4 F 97.7 F Pulse Rate 60 60 58 Respiratory Rate 18 18 18 Blood Pressure 113/76 113/76 120/78 Pulse Oximetry 94 94 96 Oxygen Delivery Method Room Air Room Air Room Air 12/26/23 08:29 12/26/23 11:43 Temperature 97.7 F Pulse Rate 58 72 Respiratory Rate 18 16 Blood Pressure 120/78 127/3 L Pulse Oximetry 96 99 Oxygen Delivery Method Room Air Room Air BMI result Body Mass Index 29.8 Const General: cooperative, no acute distress, alert and awake Nutritional Appearance: well nourished Orientation/consciousness: patient oriented x3 Limitations: no limitations HENMT Head: Yes normal to inspection and Yes atraumatic Ears: hearing grossly normal bilaterally and external ears normal General nose exam: Normal external nose present, no nasal discharge noted and no epistaxis Face and sinus: Yes normal facial exam, No abrasion and No laceration Mouth: Normal oral and palatal mucosa present, no drooling and no muffled voice Eyes General: appearance normal, both eyes and all related structures Periorbital: periorbital findings normal Eyelids: Yes eyelids normal Conjunctivae: conjunctivae normal Pupils: Equal, round and reactive pupils present EOM: EOMs intact bilaterally Neck Neck: Yes normal visual inspection, Yes full ROM and Yes no lymphadenopathy Chest Chest palpation & inspection: normal inspection of the chest Resp Effort & Inspection: normal respiratory effort and able to speak in complete sentences GI Inspection: Yes normal to inspection Neuro General: patient oriented x3 and moves all extremities Cranial nerves: Yes Equal, round and reactive pupils present Cognition (Neuro): normal cognition Extrem General: Yes normal to inspection, Yes full ROM and Yes capillary refill normal Psych Appearance: grossly normal Mental Status: mental status grossly normal Affect: normal affect Attitude: cooperative Thought process: Normal thought process present Thought content: Normal thought content present Insight: Good insight present (Psych) Course Reevaluation(s) Reevaluation #1: Observation care revealed the the patient does not meet medical necessity for hospitalization. Final disposition of discharge to [facility] discussed with the patient who verbalized understanding and agreement. Patient completed observation care at 0900 on 12/27/2023 total time spent in observation care was 1 day, 1 hour, and 29 minutes. Medications Administered Generic Name Dose Route Start Last Admin Trade Name Freq PRN Reason Stop Dose Admin Apixaban 5 mg 12/26/23 13:15 12/26/23 14:20 Apixaban 5 Mg Tablet PO 5 mg BID MAGALIS Administration Fluticasone Propionate 1 spray 12/26/23 13:15 12/26/23 14:21 Fluticasone Propionate Nasal [address] NOSTRIL-B 1 spray BID MAGALIS Administration Gabapentin 200 mg 12/26/23 13:15 12/26/23 14:20 Gabapentin 100 Mg Capsule PO 200 mg BID MAGALIS Administration Lorazepam 1 mg 12/26/23 13:10 12/26/23 14:20 Lorazepam 1 Mg Tablet PO 1 mg BID PRN Administration Anxiety Discontinued Medications Generic Name Dose Route Start Last Admin Trade Name Freq PRN Reason Stop Dose Admin Oxycodone HCl 10 mg 12/26/23 07:31 12/26/23 08:30 Oxycodone Hcl Immed Release 5 Mg Tablet PO 12/26/23 07:32 10 mg ONCE ONE Administration Medical Decision Making Medical Decision Making MDM Narrative: Patient is a 78 year old assigned male at with a history of HTN, GERD, DDD, chronic left hip pain, PE and DVT on Eliquis, and atrial fib presenting to the emergency department today with continued left hip pain. Patient's physical exam showed continued left hip pain and chronic confusion but was otherwise unremarkable. Patient's left hip x-ray showed no acute process and redemonstrated previous findings of removed parts of his hip arthrosis. I explained my physical exam findings as well as all test results to the patient. I answered all questions asked by the patient. Given patient was just discharged and is bouncing back with continued pain - will have him evaluated by physical therapy and case management. Patient placed in physician observation. Differential Diagnosis Differential Diagnoses: The differential diagnosis associated with the presentation includes Chronic hip pain Admission/Observation Consideration of admission/observation: Escalation of care including admission/observation considered Patient would have been admitted to the hospital had his work up had any findings where hospital admission was appropriate and his clinical presentation warranted hospital admission. Lab Data MDM Lab Attestation statement: I reviewed the patient's lab results. My interpretation of these studies and their corresponding values is that they are grossly normal. Labs: Lab Results 12/26/23 Range/Units 09:13 COVID-19 (MAGY) Negative (Negative) COVID-19 Clin Com See Note Independent Interpretation I performed an independent interpretation of an: Plain X-Ray Interpretation: My interpretation is in agreement with the radiologist's impression of this imaging study. EXAMINATION: XR HIP, LEFT CLINICAL INFORMATION: Pain COMPARISON: 09/28/2023 TECHNIQUE: Two views of the left hip and a single view of the pelvis. 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 There is subluxation of the femur superiorly. The acetabular component remains in place. Radiation seeds are noted in the prostate bed. Evidence of prior hernia repair. No pelvic fracture or bony destructive lesions. Degenerative changes are visualized in the spine. 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 Electronically signed by: Fred Mccullough MD 12/26/2023 09:46 AM EDT RP Dictated By: Fred Mccullough MD Signed By: Electronically signed by Fred Mccullough MD 12/26/23 0946 Radiology Impression Discussion of test interpretation with radiology: I have reviewed the radiologist's reading. Independent Historian Clinical information obtained from an independent historian. History obtained from or confirmed by: EMS (EMS provided additional history and confirmed the history provided by the patient.) Discharge Plan Discharge Clinical Impression: Chronic hip pain Patient Disposition: Xfer Inpatient Rehab Fac Transfer Details: TO [facility] Instructions: Chronic Pain (ED) Additional Instructions: Follow up with your primary care provider. Return to the emergency department immediately if your symptoms worsen or if you develop any dizziness, shortness of breath, difficulty breathing, chest pain, blurry vision, loss of vision, nausea, vomiting, abdominal pain, fever, chills, back pain, or any other complaints. Prescriptions: New oxycodone 10 mg tablet 10 mg PO Q8H Qty: 7 0RF Rx Instructions: Partial Fill upon patient request. No Action (DME) BD Safety-Jackie Detachable Needl 3 mL 25 gauge x 5/8 syringe See Rx Instructions .ROUTE .MEDSUPPLY Qty: 100 12RF Rx Instructions: As directed diclofenac sodium 1 % Gel 4 g TOPICAL TID Rx Instructions: Apply topically to right hip. lorazepam 1 mg tablet 1 mg PO BID PRN (Reason: Anxiety) Qty: 60 0RF acetaminophen [Tylenol] 325 mg Tablet 650 mg PO Q4H PRN (Reason: Fever Or Pain) Rx Instructions: Discomfort/temp 101 or greater. magnesium hydroxide [Milk of Magnesia] 400 mg/5 mL Suspension 30 ml PO DAILY PRN (Reason: Constipation) Rx Instructions: for no BM in 3 DAYS gabapentin 100 mg Capsule 200 mg PO BID polyethylene glycol 3350 [Miralax] 17 gram/dose Powder 17 g PO DAILY PRN (Reason: Constipation) Rx Instructions: Mix with 4-6 Oz of fluid of choice. simethicone 80 mg Tablet,Chewable 80 mg PO Q8H PRN (Reason: Indigestion) melatonin 10 mg Tablet 10 mg PO BEDTIME cetirizine 10 mg tablet 10 mg PO DAILY PRN (Reason: Allergy Symptoms) divalproex [Depakote] 500 mg tablet,delayed release (DR/EC) 500 mg PO BEDTIME pantoprazole 40 mg tablet,delayed release (DR/EC) 40 mg PO DAILY@0630 nystatin-triamcinolone 100,000-0.1 unit/g-% cream 1 appl topical BID PRN (Reason: Rash) fluticasone propionate 50 mcg/actuation spray,suspension 1 spray intranasal BID Gemtesa 75 mg tablet 75 mg PO DAILY metoprolol tartrate 25 mg Tablet 12.5 mg PO BID Qty: 45 0RF Protocol: Hold for SBP/HR < HOLD for SBP < : 120 HOLD for HR < : 60 apixaban 5 mg tablet 5 mg PO BID 90 Days Qty: 180 2RF venlafaxine [Effexor XR] 150 mg capsule,extended release 24hr 150 mg PO DAILY tamsulosin 0.4 mg capsule 0.4 mg PO DAILY venlafaxine [Effexor XR] 37.5 mg capsule,extended release 24hr 37.5 mg PO DAILY Referrals: Miguel Petty [place] [Outside] Po,Thania Childs MD [Primary Care Provider] - Print Language: Japanese
[2023-12-26] MEDS: oxyCODONE HCl Immed Release 5 MG TABLET 10 MG PO ×2 (08:30→17:03)
--- NOTE | 2023-12-26 08:31 | PC.NURSE ---
Care of Pt assumed at change of shift. VSS, A&Ox3. Pt medicated per Jun for 8 pain.
[2023-12-26 09:45] LABS: COVID-19 Test Negative (Negative); IDNOW Serial# 08D9AD1C
--- NOTE | 2023-12-26 12:42 | MHC.CM.ED ---
Addendum entered by Ingrid Fernandez 12/26/23 15:58: Patient will need [facility] PASRR Level 2. Level 1 already submitted. Anticipate level 2 will not be available until later this evening. Transport changed to tomorrow 12/26 at 9am. Patient, Nevin Ronquillo RN and Chen JOSHUA aware. Original Note: Received case management consult overnight. Patient came to the ER d/t hip pain. Physical therapy eval completed. Short term rehab is recommended. Met with patient in regards to discharge planning. Patient lives in congregate housing, uses a walker, [facility] PCP verified. Copy of HCP verified to be on file. Patient was inpatient at [facility] -12/23. Patient has been to [facility] in the past for STR and requested referral there. Referral made. [facility] is able to offer a bed. Patient can leave at 4pm. Brittni SOLANO booked. [facility] with chart. Patient, Dotty CASANOVA and Chen JOSHUA aware. Continue to monitor for d/c needs.
--- NOTE | 2023-12-26 13:01 | PHA.MEDREC ---
Pharmacy Consult ? Medication Reconciliation Pharmacy has completed the medication reconciliation. Spoke to patient to confirm medication list. Patient was only able to confirm them names of medication he takes, however he didn't know the dosing of medication. Patient sated he was not taking Calcium carbont 500 mg bid, Lidocaine patch, Narcan (none at home), Oxycodone 5 mg, He wasn't sure if he was on tamsulosin he said no but then he said yes I do take, last fill dates was 11-18-23 for 30 day supply so left on [facility]. Patient states he is on Apixaban 5 mg bid last fill date 12-24-23 for 90 days and confirmed with pharmacy he puck up when discharged 12-18-23.
[2023-12-26] MEDS: Apixaban 5 MG TABLET PO ×2 (14:20→20:37)
[2023-12-26] MEDS: LORazepam 1 MG TABLET PO ×2 (14:20→18:34)
[2023-12-26] MEDS: Gabapentin 100 MG CAPSULE 200 MG PO ×2 (14:20→20:37)
[2023-12-26] MEDS: Fluticasone Propionate Nasal 16 GM SPRAY 1 SPRAY NOSTRIL-B (14:21)
--- NOTE | 2023-12-26 16:02 | PC.NURSE ---
Per Ingrid Fernandez (Case Management), plan is to go to [facility]. Plans changed due to pending paperwork from the department of mental health prior to transfer to [facility]. Patient aware of change in plan of care. Aline from Case management at bedside at this time.
--- NOTE | 2023-12-26 17:45 | MHC.CM.ED ---
CM met with patient. He is aware that he will be discharged tomorrow to [facility] at 9am.
--- NOTE | 2023-12-26 18:24 | PC.NURSE ---
Patient is requesting Ativan. Last dose at 14:20 today (4 hours ago). Orders are BID PRN at this time. Reached out to JOSIANE Greene. Awaiting response.
--- NOTE | 2023-12-26 18:30 | PC.NURSE ---
Confirmed that Ottoniel has not had 2 doses of Ativan 1mg today. JOSIANE Greene confirmed that Ottoniel can receive his 2nd dose of Ativan 1mg BID PRN per orders. Moved to Overflow 3 for comfort to watch TV. Pt's anxiety is increasing.
--- NOTE | 2023-12-26 19:16 | PC.NURSE ---
Patient is on the phone, using speakerphone. Talking to his friend about frustrations with the TV not working on some channels or being big enough. States that I'm probably gonna be forgotten lucy the holiday weekend is coming up . This RN reminded him (& friend on the phone) that hospitals are staffed 19/11 365 days a year. He then stated well that's a relief . Pt continues venting frustrations to friend over the phone, but is stable at this time. Care ongoing.
--- NOTE | 2023-12-26 20:16 | PC.NURSE ---
Called pharmacy. Awaiting Depakote & Lopressor to be brought to overflow for administration. Will administer medication upon receipt.
[2023-12-26] MEDS: Melatonin 3 MG TABLET 9 MG PO (20:37)
[2023-12-26] MEDS: Metoprolol Tartrate 12.5 MG HALFTAB PO (21:20)
[2023-12-26] MEDS: Divalproex Sodium 500 MG TABLET.DR PO (21:20)
--- NOTE | 2023-12-26 23:50 | PC.NURSE ---
Patient sat up suddenly in bed, moaning in pain. Pt was sleeping prior to this. Reports pain in lower back. Last dose of pain medication was Oxycodone 10mg Q8H PRN at 5pm, next dose isn't due until 1am 12/27/2023. JOSIANE Greene notified.
[2023-12-27] MEDS: oxyCODONE HCl Immed Release 5 MG TABLET 10 MG PO (05:56)
--- NOTE | 2023-12-27 05:58 | PC.NURSE ---
protonix po not available in overflow pyxis - tigered Isabella sup to bring med. awaiting response
[2023-12-27 06:00] VITALS: BP 151/78; PULSE 59; RESP 18; TEMP 36.6; O2SAT 99
--- NOTE | 2023-12-27 06:17 | PC.NURSE ---
pt medicated per mar with pain medication as requested for 02/05 pain to lower back which he says is chronic for him, takes meds whole with water. pt using the urinal at bedside. back in bed resting comfortably. call mcknight within reach,. plan of care ongoing
[2023-12-27] MEDS: LORazepam 1 MG TABLET PO (06:34)
[2023-12-27] MEDS: Pantoprazole Sodium 20 MG TABLET.DR 40 MG PO (06:34)
--- NOTE | 2023-12-27 07:23 | PC.NURSE ---
Care of Pt assumed at change of shift. Pt is observed resting comfortably with eyes closed, NAD at this time. Per report, Pt is scheduled for transfer to [facility] around 9am via [facility].
--- NOTE | 2023-12-27 08:59 | PC.NURSE ---
Call placed to [facility] @ [phone] to give RN to RN report. Transferred to the 2nd floor, no answer.
[2023-12-27] MEDS: Venlafaxine HCl ER 150 MG CAP.ER.24H PO (09:34)
[2023-12-27] MEDS: Apixaban 5 MG TABLET PO (09:34)
[2023-12-27] MEDS: Tamsulosin HCL 0.4 MG CAPSULE PO (09:34)
[2023-12-27] MEDS: Venlafaxine HCl ER 37.5 MG CAP.ER.24H PO (09:34)
[2023-12-27] MEDS: Gabapentin 100 MG CAPSULE 200 MG PO (09:34)
[2023-12-27] MEDS: Acetaminophen 325 MG TABLET 650 MG PO (09:34)
[2023-12-27] MEDS: Fluticasone Propionate Nasal 16 GM SPRAY 1 SPRAY NOSTRIL-B (09:35)
[2023-12-27] MEDS: Metoprolol Tartrate 12.5 MG HALFTAB PO (11:12)
--- NOTE | 2023-12-27 11:12 | PC.NURSE ---
delay in medication administration d/t medication not being readily available in the pyxis. medication now administered.
--- NOTE | 2023-12-27 12:27 | PC.NURSE ---
per CM, pt pending transportation via BLS to [facility] @ 1300. pt notified/aware. plan of care ongoing.
--- NOTE | 2023-12-27 13:08 | PC.NURSE ---
report given to anabel SOLANO at this time. pt being transported to [facility] at this time.
--- NOTE | 2023-12-27 13:12 | PC.NURSE ---
attempted to call [facility] twice to give warm handover. multiple transfers made to speak w/ RN who would be assuming care but call continued to be disconnected.
[2023-12-27 13:13] VITALS: BP 151/78; PULSE 59; RESP 18; TEMP 36.6; O2SAT 99
== END 2023-12-27 13:14 ==
PROVIDERS: Physician Assistant Medical; Emergency Provider Emergency Medicine; PCP Internal Medicine
DX: M25.552 Pain in left hip (principal); I48.91 Unspecified atrial fibrillation; R26.81 Unsteadiness on feet; Z11.52 Encounter for screening for COVID-19; Z79.01 Long term (current) use of anticoagulants; Z79.899 Other long term (current) drug therapy; Z87.891 Personal history of nicotine dependence
CPT/HCPCS: 73502; 87635; 97162; 99284; 99285

== ENCOUNTER 2024-01-05 13:28 | Emergency (ER) | payer MEDICARE, OTHER, SELFPAY ==
--- NOTE | ~2024-01-05 | CT_ITS ---
EXAMINATION: CT HEAD WITHOUT CONTRAST CT CERVICAL SPINE WITHOUT CONTRAST CLINICAL INFORMATION: Fall. Head strike. COMPARISON: CT head and cervical spine 12/06/2023. TECHNIQUE: Substation Designer images were obtained. CT imaging of the head and cervical spine was performed without contrast. Data was reformatted into multiplanar images at the acquisition workstation. This CT examination was performed using dose optimization techniques as appropriate, including one or more of the following: Automated exposure control, iterative reconstruction, and adjustment of technique factors (mA and/or kVp) according to patient size (this includes techniques or standardized protocols for targeted exams where dose is matched to indication/reason for exam). Fleischner Society criteria for the followup of incidental pulmonary nodules was implemented if appropriate. DLP: 1320 mGy-cm. FINDINGS: Head: There is no acute intracranial hemorrhage. Questionable tiny subdural hygroma over the left cervical convexity measuring 0.2 cm in maximal thickness has not changed when compared to prior imaging from 12/06/2023. Stable 0.7 cm rightward displacement of the septum pellucidum. No uncal herniation or mesencephalic compression. Scattered nonspecific foci of hypoattenuation are visualized within the periventricular white matter that most likely represent a chronic minimization of small vessel ischemia. Valentin-white matter differentiation is otherwise preserved and there is no evidence of an acute territorial infarct. The calvarium and skull base are intact. Mastoid air cells and middle ear cavities are well aerated. Mild mucosal thickening within the frontal sinuses. Cervical spine: Spinal alignment is normal. Vertebral body heights are preserved. There is a stable chronic anterior wedging of the T1 vertebral body. No evidence of acute cervical spine fracture. No abnormal prevertebral soft tissue swelling. There is loss of intervertebral disc height with associated sclerotic degenerative endplate changes and hypertrophic disc and osteophyte spurring at multiple levels. Visualized soft tissues of the neck are normal. Lung apices are clear. CT/CT cervical spine wo IV con IMPRESSION: Head: No acute intracranial hemorrhage. There is a questionable subdural hygroma over the left convexity measuring 0.2 cm in thickness. Stable 0.7 cm rightward displacement of the septum pellucidum. No uncal herniation or mesencephalic compression. Scattered chronic small vessel ischemic changes primarily involving the periventricular white matter. No evidence of acute territorial infarct. Cervical Spine: Stable chronic compression deformity of the T1 vertebral body. No evidence of acute cervical spine fracture and no posttraumatic spinal subluxation. There is advanced multilevel degenerative spondylosis of the cervical spine. Electronically signed by: Víctor Navarro MD 01/05/2024 03:22 PM EDT
--- NOTE | ~2024-01-05 | XR_ITS ---
EXAMINATION: PORTABLE CHEST 1 VIEW CLINICAL INFORMATION: hypoxia. COMPARISON: 12/21/2023. TECHNIQUE: Portable frontal view of the chest was obtained. FINDINGS: Lungs are hypoexpanded with vascular prominence likely related to the degree of hypoexpansion. No overt edema. No significant effusion. No pneumothorax. Chronic right-sided pleural thickening again noted. Cardiac silhouette within normal limits for size with tortuosity to the calcified aorta. Degenerative changes in the spine and shoulders. XR/XR chest 1V IMPRESSION: Hypoexpanded with chronic appearing changes but no acute process seen otherwise. Electronically signed by: Evens Zaidi MD 01/05/2024 05:41 PM EDT RP
[2024-01-05 13:44] VITALS: BP 120/70; BP 139/84; PULSE 88; PULSE 96; RESP 22; TEMP 37; O2SAT 88; O2SAT 95; BMI 30.3
--- NOTE | 2024-01-05 13:53 | ECG_ITS ---
Test Reason : WEAKNESS Blood Pressure : / mmHG Vent. Rate : 090 BPM Atrial Rate : 090 BPM P-R Int : 176 ms QRS Dur : 094 ms QT Int : 360 ms P-R-T Axes : 033 032 056 degrees QTc Int : 440 ms Sinus rhythm with Premature atrial complexes Anterolateral infarct (cited on or before 18-DEC-2022) Abnormal ECG When compared with ECG of 21-DEC-2023 14:16, No significant change was found Referred By: Chen Tiwari Electronically Signed By:ANNITA YANEZ
[2024-01-05 14:59] LABS: Appearance Urine Clear; Color Urine Yellow; Glucose Urine UA Negative (Negative); Leukocyte Esterase Urine Negative (Negative); Nitrite Urine Negative (Negative); PH 6.5 (5.0-9.0); Urine Blood Negative (Negative); Urine Ketones Trace mg/dL (Negative); Urine Protein Negative (Neg-Trace)
[2024-01-05 15:19] LABS: MANUAL DIFF FLAG NO
[2024-01-05 15:22] LABS: Basophils Absolute Auto 0.1 X10*3/uL (0.0-0.2); Basophils Percent Auto 0.7 % (0-2); Eosinophils Absolute Auto 0.1 X10*3/uL (0.0-0.4); Eosinophils Percent Auto 0.8 % (0-4); Hematocrit 29.6 % (42.0-52.0); Imm Gran Abs Auto 0.06 X10*3/uL (0.00-0.03); Imm Gran Pct Auto 0.4 % (0.0-0.4); Lymphocytes Absolute Auto 3.9 X10*3/uL (1.2-4.9); Lymphocytes Percent Auto 27.3 % (20-40); Mean Corpuscular HGB Conc 30.4 g/dl (31.0-36.0); Mean Corpuscular Hemoglobin 23.3 pg (27.0-33.0); Mean Corpuscular Volume 76.7 fL (80.0-98.0); Mean Platelet Volume 9.7 fL (9.4-12.4); Monocytes Absolute Auto 1.4 X10*3/uL (0.1-1.2); Monocytes Percent Auto 9.7 % (2-11); Neutrophils Absolute Auto 8.6 x10*3/uL (2.0-8.3); Neutrophils Percent Auto 61.1 % (45-73); Platelet Count 477 X10*3/uL (160-400); Red Blood Count 3.86 X10*6/uL (4.60-5.80); Red Cell Distribution Width 17.8 % (11.0-16.0); White Blood Count 14.2 X10*3/uL (4.8-10.8)
[2024-01-05] MEDS: oxyCODONE HCl Immed Release 5 MG TABLET 10 MG PO ×2 (15:33→20:51)
[2024-01-05 15:39] LABS: Alanine Aminotransferase 8 U/L (0-40); Albumin Level 3.7 g/dL (3.5-5.0); Alkaline Phosphatase 90 U/L (39-117); Anion Gap 15 (12-20); Aspartate Amino Transferase 14 U/L (5-37); Bilirubin Total 0.3 mg/dL (0.0-1.0); Blood Urea Nitrogen 19 mg/dL (9-16); Carbon Dioxide 21 mmol/L (22-29); Chloride 106 mmol/L (96-108); Creatinine Clr Calc Pharmacy 78.5; Estimated Glomerular Filt Rate > 60; Glucose Random 78 mg/dL (60-115); Magnesium 1.9 mg/dL (1.6-2.6); Potassium 4.2 mmol/L (3.3-5.1); Sodium 138 mmol/L (135-145); Total Protein 6.5 g/dL (6.5-8.0)
[2024-01-05 16:00] LABS: Influenza A PCR NEGATIVE (Negative); Influenza B PCR NEGATIVE (Negative); Resp Syncy Virus RNA Qual PCR NEGATIVE (Negative); SARS COV2 PCR INHOUSE NEGATIVE (Negative)
[2024-01-05 16:39] VITALS: BP 110/55; PULSE 82; RESP 16; TEMP 36.8; O2SAT 95
--- NOTE | 2024-01-05 16:52 | PC.NURSE ---
pt comes to ED after fall at living facility. he fell out of bed, per EMS. Pt reporting pain with C-collar and is yelling for help. Medicated per MAR, warm blanket given, now resting.
[2024-01-05 18:02] LABS: B Type Natriuretic Peptide 170 pg/mL (<100)
--- NOTE | 2024-01-05 18:17 | ED.GENADULT ---
HPI - General Adult General Chief complaint: Fall Stated complaint: FALL,?LOC,?HS,+THINNERS,NECK/BACK PAIN PER EMS Time Seen by Provider: 01/05/24 16:51 Source: patient, RN notes reviewed and old records reviewed Mode of arrival: EMS Limitations: other (Patient is a very poor historian) History of Present Illness ED Provider: Ramona HPI narrative: 78-year-old male history significant for advanced dementia cognitive impairment, asthma, anxiety, PE Eliquis, GERD hypertension AFib presents for evaluation after fall. Patient reports that he was trying to roll out of bed earlier today. He states that he fell to the ground He does not believe that he injured himself in any way. Denies any pain including headache, neck pain, chest pain, hip pain He is not sure why he is in the hospital The patient has had multiple recent visits to ED for various complaints including falls, AFib and a pulmonary embolism. There was some mentioned in the EMS notes the patient was hypoxic to 88% when they found the patient, on arrival to the ED the patient is 96% on room air Again, the patient offers no complaints Related Data Home Medications ?Medication ?Instructions ?Recorded ?Confirmed acetaminophen 325 mg tablet 650 mg PO Q4H PRN Fever Or Pain 09/30/23 01/05/24 (Tylenol) diclofenac sodium 1 % topical gel 4 g topical TID 09/30/23 12/26/23 gabapentin 100 mg capsule 200 mg PO BID 09/30/23 01/05/24 magnesium hydroxide 400 mg/5 mL 30 ml PO DAILY PRN Constipation 09/30/23 01/05/24 oral suspension (Milk of Magnesia) melatonin 10 mg tablet 10 mg PO BEDTIME 09/30/23 01/05/24 polyethylene glycol 3350 17 17 g PO DAILY PRN Constipation 09/30/23 01/05/24 gram/dose oral powder (Miralax) simethicone 80 mg chewable tablet 80 mg PO Q8H PRN Indigestion 09/30/23 01/05/24 cetirizine 10 mg tablet 10 mg PO DAILY PRN Allergy Symptoms 11/09/23 01/05/24 divalproex 500 mg tablet,delayed 500 mg PO BEDTIME 11/09/23 01/05/24 release (Depakote) fluticasone propionate 50 1 spray intranasal BID 11/09/23 01/05/24 mcg/actuation nasal spray,suspension nystatin-triamcinolone 100,000 1 appl topical BID PRN Rash 11/09/23 12/26/23 unit/g-0.1 % topical cream pantoprazole 40 mg tablet,delayed 40 mg PO DAILY@0630 11/09/23 01/05/24 release vibegron 75 mg tablet (Gemtesa) 75 mg PO DAILY 11/09/23 12/26/23 tamsulosin 0.4 mg capsule 0.4 mg PO DAILY 12/26/23 01/05/24 venlafaxine 150 mg 150 mg PO DAILY 12/26/23 01/05/24 capsule,extended release 24 hr (Effexor XR) venlafaxine 37.5 mg 37.5 mg PO DAILY 12/26/23 01/05/24 capsule,extended release 24 hr (Effexor XR) Previous Rx's ?Medication ?Instructions ?Recorded syringe with needle, safety 3 mL #100 ea 06/02/21 25 gauge x 5/8 (BD Safety-Jackie Detachable Needle) lorazepam 1 mg tablet 1 mg PO BID PRN Anxiety #60 tabs 12/03/23 apixaban 5 mg tablet 5 mg PO BID 90 days #180 tabs 12/24/23 metoprolol tartrate 25 mg tablet 12.5 mg PO BID #45 tabs 12/24/23 oxycodone 10 mg tablet 10 mg PO Q8H #7 tabs 12/26/23 Allergies Allergy/AdvReac Type Severity Reaction Status Date / Time carisoprodol [From Soma] Allergy Mild MENTAL Verified 01/05/24 13:50 STATUS CHANGE, BECOMES AGGRESIVE codeine [Codeine] Allergy Mild STOMACH Verified 12/26/23 06:18 UPSET, RASH gabapentin AdvReac Intermediate lousy Verified 12/26/23 06:18 feeling Review of Systems Constitutional: Constitutional: Denies body ache(s), Denies chills, Denies fever(s) and Reports frequent falls Eyes: Eyes: Denies blurry vision ENT: Denies vertigo Cardiovascular: Cardiovascular: Denies chest pain and Denies dyspnea Respiratory: Respiratory: Denies cough and Denies dyspnea Gastrointestinal: Gastrointestinal: Denies abdominal pain and Denies vomiting Integumentary/Breasts: Skin/Breast: Denies rash and Denies wounds Neurologic: Denies vertigo and Reports frequent falls Psychiatric: Psychiatric: Denies suicidal ideation [facility] Past Medical History Medical History Incisional hernia Premature atrial complexes Shortness of breath Rash Asthma exacerbation Leukocytosis Serum potassium elevated Low vitamin D level Headache Fatigue Moderate recurrent major depression Hospital discharge follow-up Chest tightness Dyspnea on exertion Allergic bronchitis Generalized anxiety disorder Tinea cruris SOB (shortness of breath) on exertion Constipation Atrial fibrillation Knee fracture, left Wedge compression fracture of L1 vertebra Prostate cancer Iron deficiency anemia Obstructive sleep apnea Vitamin D deficiency Diverticular disease Obesity (BMI 30-39.9) Peptic ulcer disease Degenerative disc disease GERD (gastroesophageal reflux disease) Anxiety and depression Vitamin B12 deficiency Gout Hypertension Fatigue Dysuria Surgical History History of colonoscopy History of hemiarthroplasty of left hip H/O rectal polypectomy History of knee replacement procedure of left knee H/O hernia repair History of pyloroplasty History of bowel resection History of cholecystectomy Family History Family History Father Diabetes Acute kidney failure Glaucoma Mother Lung cancer Social History Social History Household Members: None Housing: Other Housing Other:: independent living Do you presently have visiting nurse or other home services: No Alcohol intake: never Comment: sitter at bedside Patient Tobacco Use Status: Former Tobacco user Tobacco use type: Cigar Smoked in Last 30 Days: No e-Cigarette/Vaping Use: Currently Using Second Hand Smoke Exposure: No Use of substances other than those prescribed or required for medical reasons: No Advance Directives: Yes Advance Directives on File: Yes Advance Directives Date on File: 07/03/22 service: No Current occupational status: retired Cognitive needs: No Hearing needs: Yes Vision needs: Yes Physical Exam ED Vital Signs: Vital Signs - 24 hr 01/06/24 14:00 01/06/24 18:19 01/06/24 21:30 Temperature 97.5 F 97.7 F 97.7 F Pulse Rate 66 72 65 Respiratory Rate 16 12 14 Blood Pressure 105/68 116/68 100/62 Pulse Oximetry 96 96 94 Oxygen Delivery Method Room Air Room Air Room Air 01/07/24 05:53 Temperature 97.8 F Pulse Rate 88 Respiratory Rate 16 Blood Pressure 108/70 Pulse Oximetry 95 Oxygen Delivery Method Room Air BMI result Body Mass Index 30.3 Const General: comfortable, no acute distress, alert and awake Nutritional Appearance: well nourished Orientation/consciousness: patient oriented x3 HENMT Head: Yes normocephalic and Yes atraumatic Eyes Eyelids: Yes eyelids normal Conjunctivae: conjunctivae normal Sclerae: sclerae normal Corneas: corneas normal Pupils: Equal, round and reactive pupils present EOM: EOMs intact bilaterally Neck Neck: Yes full ROM Resp Effort & Inspection: normal respiratory effort, able to speak in complete sentences, no audible wheezes and not labored Auscultation: clear to auscultation bilaterally GI Inspection: Yes distended (But nontender) Palpation (GI): Soft to palpation, nontender, no guarding and not rigid Skin General skin exam: elasticity normal Neuro General: patient oriented x3 Cranial nerves: Yes Equal, round and reactive pupils present and Yes Bilaterally intact EOM present Extrem Other: Moving all extremities well without any obvious deformities. There is no tenderness with manipulation of the hips bilaterally Course Reevaluation(s) Reevaluation #1: Patient's medical workup largely unremarkable, he has no acute findings. The patient will be a case management patient for the morning as he is a fall risk. He almost fell twice in the ER and was stopped by nursing staff. I do not feel it is appropriate to send the patient back home at this time Time: 22:16 Reevaluation #2: Physician observation continued. Uneventful night. Vital signs stable. No complaints from nursing overnight. Med reconciliation reviewed and done. Pending disposition. Will continue to monitor. Time: 06:24 Reevaluation #3: [facility] via BLS tomorrow at 10am for STR. Will need a paper rx for oxycodone and ativan. Time: 13:39 Additional Reevaluation(s): 01/07/2024 0630 --> Observation care revealed the the patient does not meet medical necessity for hospitalization. Final disposition discussed with the patient who verbalized understanding and agreement. Patient completed observation care at 1000 on 01/07/2024, total time spent in observation care was 1 day, 14 hours, and 8 minutes. Medications Administered Generic Name Dose Route Start Last Admin Trade Name Wade PRN Reason Stop Dose Admin Acetaminophen 650 mg 01/05/24 20:32 01/06/24 17:45 Acetaminophen 325 Mg Tablet PO 650 mg Q4H PRN Administration Fever Or Pain Apixaban 5 mg 01/05/24 21:00 01/06/24 21:07 Apixaban 5 Mg Tablet PO Not Given BID [facility] Divalproex Sodium 500 mg 01/05/24 21:00 01/06/24 21:07 Divalproex Sodium 500 Mg Tablet. PO Not Given BEDTIME [facility] Fluticasone Propionate 1 spray 01/05/24 21:00 01/06/24 21:08 Fluticasone Propionate Nasal 16 Gm Pioneer NOSTRIL-B Not Given BID [facility] Gabapentin 200 mg 01/05/24 21:00 01/06/24 21:08 Gabapentin 100 Mg Capsule PO Not Given BID [facility] Lorazepam 1 mg 01/05/24 20:06 01/06/24 13:17 Lorazepam 1 Mg Tablet PO 1 mg BID PRN Administration Anxiety Melatonin 9 mg 01/05/24 21:00 01/06/24 21:08 Melatonin 3 Mg Tablet PO Not Given BEDTIME [facility] Metoprolol Tartrate 12.5 mg 01/05/24 21:00 01/06/24 21:08 Metoprolol Tartrate 12.5 Mg Halftab PO Not Given BID [facility] Protocol Olanzapine 10 mg 01/05/24 21:33 01/05/24 23:35 Olanzapine 10 Mg Tablet PO 10 mg BID PRN Administration Agitation Omeprazole 20 mg 01/06/24 06:30 01/07/24 05:57 Omeprazole 20 Mg Capsule. PO Not Given DAILY@0630 [facility] Oxycodone HCl 10 mg 01/05/24 21:00 01/06/24 21:08 Oxycodone Hcl Immed Release 5 Mg Tablet PO Not Given TID [facility] Tamsulosin HCl 0.4 mg 01/06/24 09:00 01/06/24 08:36 Tamsulosin Hcl 0.4 Mg Capsule PO 0.4 mg DAILY MAGALIS Administration Venlafaxine HCl 37.5 mg 01/06/24 09:00 01/06/24 08:36 Venlafaxine Hcl Er 37.5 Mg Cap.Er.24h PO 37.5 mg DAILY MAGALIS Administration Venlafaxine HCl 150 mg 01/06/24 09:00 01/06/24 08:37 Venlafaxine Hcl Er 150 Mg Cap.Er.24h PO 150 mg DAILY MAGALIS Administration Discontinued Medications Generic Name Dose Route Start Last Admin Trade Name Wade PRN Reason Stop Dose Admin Oxycodone HCl 10 mg 01/05/24 15:24 01/05/24 15:33 Oxycodone Hcl Immed Release 5 Mg Tablet PO 01/05/24 15:25 10 mg ONCE ONE Administration Medical Decision Making Medical Decision Making [facility] Narrative: 78-year-old male with past medical history as documented above presents for evaluation after a fall while getting out of bed. He had a CT head, C-spine did not show any traumatic injuries. He has no complaints or concerns at this time, his EKG is unchanged, labs show no concerning abnormalities. He has a mild elevation in his BNP which is chronic and unchanged from baseline, his troponin was negative and he had not had any chest pain. A chest x-ray was ordered given the concern for hypoxia as reported by EMS. Urinalysis is clear, no obvious sign of infection Differential Diagnosis Differential Diagnoses: The differential diagnosis associated with the presentation includes Mechanical fall Failure to thrive Gait instability Intracranial hemorrhage Cervical fracture Pneumonia PE Lab Data [facility] Lab Attestation statement: I reviewed the patient's lab results. Patient has a leukocytosis to 14.2 which appears to be about his baseline. He has a stable anemia that is microcytic. Chemistries are significant for a BUN to 19 and the carbon dioxide 21. His BNP is 170 which is consistent with his baseline troponin of 6.0 01/05/24 15:11 01/05/24 15:11 Labs: Lab Results 01/05/24 01/05/24 01/06/24 Range/Units 14:50 15:11 08:43 WBC 14.2 H (4.8-10.8) X10*3/uL RBC 3.86 L (4.60-5.80) X10*6/uL Hgb 9.0 L (14.0-18.0) g/dl Hct 29.6 L (42.0-52.0) % MCV 76.7 L (80.0-98.0) fL MCH 23.3 L (27.0-33.0) pg MCHC 30.4 L (31.0-36.0) g/dl RDW 17.8 H (11.0-16.0) % Plt Count 477 H D (160-400) X10*3/uL MPV 9.7 (9.4-12.4) fL Immature Gran % (Auto) 0.4 (0.0-0.4) % Neut % (Auto) 61.1 (45-73) % Lymph % (Auto) 27.3 (20-40) % [place] % (Auto) 9.7 (2-11) % Eos % (Auto) 0.8 (0-4) % Baso % (Auto) 0.7 (0-2) % Lymph # (Auto) 3.9 (1.2-4.9) X10*3/uL [place] # (Auto) 1.4 H (0.1-1.2) X10*3/uL Eos # (Auto) 0.1 (0.0-0.4) X10*3/uL Baso # (Auto) 0.1 (0.0-0.2) X10*3/uL Abs Immat Gran (auto) 0.06 H (0.00-0.03) X10*3/uL Absolute Neuts (auto) 8.6 H (2.0-8.3) x10*3/uL Absolute Nucleated RBC 0.000 (0.0-0.012) X10*3/uL Nucleated RBC % (auto) 0.0 (0.0-0.2) /100WBC Sodium 138 (135-145) mmol/L Potassium 4.2 (3.3-5.1) mmol/L Chloride 106 (96-108) mmol/L Carbon Dioxide 21 L (22-29) mmol/L Anion Gap 15 (12-20) BUN 19 H (9-16) mg/dL Creatinine 0.97 (0.5-1.4) mg/dL Estim Creat Clear Calc 78.5 Estimated GFR > 60 POC Glucose 75 (60-115) mg/dL Random Glucose 78 (60-115) mg/dL Calcium 9.0 (8.4-10.2) mg/dL Magnesium 1.9 (1.6-2.6) mg/dL Total Bilirubin 0.3 (0.0-1.0) mg/dL AST 14 (5-37) U/L ALT 8 (0-40) U/L Alkaline Phosphatase 90 (39-117) U/L Troponin I High Sens 6.0 (<3.5-35.0) ng/L B-Natriuretic Peptide 170 H (<100) pg/mL Total Protein 6.5 (6.5-8.0) g/dL Albumin 3.7 (3.5-5.0) g/dL Urine Color Yellow Urine Appearance Clear Urine pH 6.5 (5.0-9.0) Ur Specific Watkins 1.010 (1.005-1.025) Urine Protein Negative (Neg-Trace) mg/dL Urine Glucose (UA) Negative (Negative) mg/dL Urine Ketones Trace (Negative) mg/dL Urine Blood Negative (Negative) Urine Nitrite Negative (Negative) Ur Leukocyte Esterase Negative (Negative) Influenza Type A (PCR) NEGATIVE (Negative) Influenza Type B (PCR) NEGATIVE (Negative) RSV RNA Qual (PCR) NEGATIVE (Negative) SARS-CoV-2 RNA (RT-PCR) NEGATIVE (Negative) Independent Interpretation I performed an independent interpretation of an: EKG (Sinus rhythm with premature atrial complexes. Rate of 90 beats minute.) and Plain X-Ray Interpretation: Agree with Radiology interpretation Radiology Impression Discussion of test interpretation with radiology: I have reviewed the radiologist's reading. Radiologist Impression: CT/CT cervical spine wo IV con IMPRESSION: Head: No acute intracranial hemorrhage. There is a questionable subdural hygroma over the left convexity measuring 0.2 cm in thickness. Stable 0.7 cm rightward displacement of the septum pellucidum. No uncal herniation or mesencephalic compression. Scattered chronic small vessel ischemic changes primarily involving the periventricular white matter. No evidence of acute territorial infarct. Cervical Spine: Stable chronic compression deformity of the T1 vertebral body. No evidence of acute cervical spine fracture and no posttraumatic spinal subluxation. There is advanced multilevel degenerative spondylosis of the cervical spine. XR/XR chest 1V IMPRESSION: Hypoexpanded with chronic appearing changes but no acute process seen otherwise. Discharge Plan Discharge Clinical Impression: Accident due to mechanical fall without injury Patient Disposition: Still a Patient Prescriptions: No Action (DME) BD Safety-Jackie Detachable Needl 3 mL 25 gauge x 5/8 syringe See Rx Instructions .ROUTE .MEDSUPPLY Qty: 100 12RF Rx Instructions: As directed diclofenac sodium 1 % Gel 4 g TOPICAL TID Rx Instructions: Apply topically to right hip. lorazepam 1 mg tablet 1 mg PO BID PRN (Reason: Anxiety) Qty: 60 0RF acetaminophen [Tylenol] 325 mg Tablet 650 mg PO Q4H PRN (Reason: Fever Or Pain) Rx Instructions: Discomfort/temp 101 or greater. magnesium hydroxide [Milk of Magnesia] 400 mg/5 mL Suspension 30 ml PO DAILY PRN (Reason: Constipation) Rx Instructions: for no BM in 3 DAYS gabapentin 100 mg Capsule 200 mg PO BID polyethylene glycol 3350 [Miralax] 17 gram/dose Powder 17 g PO DAILY PRN (Reason: Constipation) Rx Instructions: Mix with 4-6 Oz of fluid of choice. simethicone 80 mg Tablet,Chewable 80 mg PO Q8H PRN (Reason: Indigestion) melatonin 10 mg Tablet 10 mg PO BEDTIME cetirizine 10 mg tablet 10 mg PO DAILY PRN (Reason: Allergy Symptoms) divalproex [Depakote] 500 mg tablet,delayed release (DR/EC) 500 mg PO BEDTIME pantoprazole 40 mg tablet,delayed release (DR/EC) 40 mg PO DAILY@0630 nystatin-triamcinolone 100,000-0.1 unit/g-% cream 1 appl topical BID PRN (Reason: Rash) fluticasone propionate 50 mcg/actuation spray,suspension 1 spray intranasal BID Gemtesa 75 mg tablet 75 mg PO DAILY metoprolol tartrate 25 mg Tablet 12.5 mg PO BID Qty: 45 0RF Protocol: Hold for SBP/HR < HOLD for SBP < : 120 HOLD for HR < : 60 apixaban 5 mg tablet 5 mg PO BID 90 Days Qty: 180 2RF venlafaxine [Effexor XR] 150 mg capsule,extended release 24hr 150 mg PO DAILY tamsulosin 0.4 mg capsule 0.4 mg PO DAILY oxycodone 10 mg tablet 10 mg PO Q8H Qty: 7 0RF Rx Instructions: Partial Fill upon patient request. venlafaxine [Effexor XR] 37.5 mg capsule,extended release 24hr 37.5 mg PO DAILY Referrals: [facility] [Outside] Print Language: Maltese
--- NOTE | 2024-01-05 19:31 | PC.NURSE ---
[facility] DC[facility]ed home on 01/03/24 with plans for penitentiary, OT and PT to start 01/04/24. pt took a few steps with a walker and was very unsteady. EMT's said pt was at a retirement when they picked him up. [facility]
--- NOTE | 2024-01-05 19:53 | PC.NURSE ---
pt yelling NURSE attempting to get out of bed, redirected back into bed. pt requesting to go home, and something to eat. provided pt with food.
--- NOTE | 2024-01-05 19:58 | PC.NURSE ---
pt yelling NURSE when i went in pt requsted to have the table pushed away, which he then did himself.
--- NOTE | 2024-01-05 20:41 | PC.NURSE ---
med rec completed, provider orders are in
[2024-01-05] MEDS: Apixaban 5 MG TABLET PO (20:50)
[2024-01-05] MEDS: LORazepam 1 MG TABLET PO (20:50)
[2024-01-05] MEDS: Gabapentin 100 MG CAPSULE 200 MG PO (20:50)
[2024-01-05 20:51] VITALS: BP 112/76; PULSE 84; RESP 16; TEMP 36.7; O2SAT 94
[2024-01-05] MEDS: Metoprolol Tartrate 12.5 MG HALFTAB PO (20:52)
[2024-01-05] MEDS: Melatonin 3 MG TABLET 9 MG PO (20:52)
[2024-01-05] MEDS: Divalproex Sodium 500 MG TABLET.DR PO (20:52)
--- NOTE | 2024-01-05 21:00 | PC.NURSE ---
report given to overflow
[2024-01-05 22:00] VITALS: BP 107/66; PULSE 78; RESP 14; TEMP 37.2; O2SAT 92
--- NOTE | 2024-01-05 22:05 | PC.NURSE ---
received pt from main ED, pt moved to bed from stretcher, pt is groggy at this time, camera in place watching pt
[2024-01-05] MEDS: OLANZapine 10 MG TABLET PO (23:35)
--- NOTE | 2024-01-05 23:40 | PC.NURSE ---
pt yelling and trying to get out of the bed, Pt wants to leave. Pt medicated for agitation, changed his pads, gave him food, will cont plan of care
--- NOTE | 2024-01-06 02:58 | PC.NURSE ---
resting quietly with eyes, resp with ease, no s/s of acute distress, will cont plan of care
[2024-01-06 06:00] VITALS: BP 118/65; PULSE 67; RESP 18; TEMP 36.4; O2SAT 96
[2024-01-06] MEDS: Omeprazole 20 MG CAPSULE.DR PO (06:17)
--- NOTE | 2024-01-06 06:34 | PC.NURSE ---
Pt awake to take morning medication, pt denies any needs, readjusted in bed, no acute distress noted.
[2024-01-06] MEDS: Gabapentin 100 MG CAPSULE 200 MG PO (08:35)
[2024-01-06] MEDS: Metoprolol Tartrate 12.5 MG HALFTAB PO (08:35)
[2024-01-06] MEDS: Apixaban 5 MG TABLET PO (08:36)
[2024-01-06] MEDS: Venlafaxine HCl ER 37.5 MG CAP.ER.24H PO (08:36)
[2024-01-06] MEDS: Tamsulosin HCL 0.4 MG CAPSULE PO (08:36)
[2024-01-06] MEDS: Venlafaxine HCl ER 150 MG CAP.ER.24H PO (08:37)
--- NOTE | 2024-01-06 08:40 | PC.NURSE ---
pt woke, attempted to use urinal but missed and needed incontinence care. PT arrived and assisted pt to recliner. shortly after he fell asleep. was easily aroused to light touch but unable to answer questions. pupils 2-3mm. oxycodone held for this reason. pt was able to take sips of water without difficulty but needed coaching to take sips. POC 75 and brought apple juice. tray ordred. pt becoming more alert with PO fluids and coaching to drink.
[2024-01-06 08:46] LABS: Glucose, Whole Blood 75 mg/dL (60-115)
--- NOTE | 2024-01-06 10:16 | PC.NURSE ---
Pt assisted to take a few bites/sips of breakfast. Needs constant coaching to stay awake/alert. Flonase and oxycodone held d/t drowsiness.
--- NOTE | 2024-01-06 10:53 | PC.NURSE ---
Pt attempted to get out of bed w/o alerting staff. Camera alarmed and patient was assisted to commode. However he was unwilling to accept help easily and was rushing for a large loose stool. He swatted at staff, urinated on the floor and stooled half way into commode causeing an even greater falls risk. Pt was uncooperative and hard to redirect though with gate belt and 2 assist was placed ack in bed and cleansed. Is resting now. Good skin integrity on buttocks.
--- NOTE | 2024-01-06 10:55 | PC.NURSE ---
camera and bed alarm in use.
--- NOTE | 2024-01-06 12:49 | PC.NURSE ---
again up to commode. slightly more cooperative but very difficult.. swatting a little and swearing at staff. large loose stool/
--- NOTE | 2024-01-06 12:56 | PC.NURSE ---
friend at bedside/ review of plan of care for everyone.
--- NOTE | 2024-01-06 13:03 | MHC.CM.ED ---
Addendum entered by Ingrid Fernandez 01/06/24 13:40: Brittni SOLANO booked for 01/[address] [facility] with chart. Patient, Lety CASANOVA and Nadya JOSHUA aware. Original Note: Received case management consult overnight. Patient came to the ER after a fall. Patient was at [facility] from 01/26-01/02. Patient returned home and fell on 01/04. Patient returned to ER. Physical therapy eval completed. LTC is recommended. Patient is well-known to CM due to frequent ER visits. Met with patient in regards to discharge planning. Patient will only be agreeable to STR at [facility]. Referral made via [facility]. [facility] is able to accept patient. Will need [facility] PASRR Level 2. T/W already submitted for this. Anticipate patient will be able to d/c tomorrow 01/06. Patient aware and agreeable. Continue to monitor for d/c needs.
[2024-01-06] MEDS: LORazepam 1 MG TABLET PO (13:17)
[2024-01-06 14:00] VITALS: BP 105/68; PULSE 66; RESP 16; TEMP 36.4; O2SAT 96
[2024-01-06] MEDS: oxyCODONE HCl Immed Release 5 MG TABLET 10 MG PO (14:17)
--- NOTE | 2024-01-06 15:03 | PC.NURSE ---
Supervisor [employer] from here from [facility] (Andrei Arreola) to state that they are concerns that patient should not be living independently, reported poor condition of apartment.
--- NOTE | 2024-01-06 15:33 | MHC.EDTECH ---
pt at rest, no signs of distress, bed exit alarm on
--- NOTE | 2024-01-06 17:29 | PC.NURSE ---
ate w/o difficulty. some assist from staff. c/o left hip pain and aware that oxycodone is limited to TID.
[2024-01-06] MEDS: Acetaminophen 325 MG TABLET 650 MG PO (17:45)
[2024-01-06 18:19] VITALS: BP 116/68; PULSE 72; RESP 12; TEMP 36.5; O2SAT 96
--- NOTE | 2024-01-06 18:26 | PC.NURSE ---
Pt has been a bit more clear in conversation and able to state needs without aggressive gestures. Awaits placement which is expected tomorrow.
--- NOTE | 2024-01-06 19:15 | MHC.CM.ED ---
CM met with patient to discuss D/C plan. Pt will d/c to [facility] tomorrow 01/06 at 10am. Pt is agreeable. Pt received a letter from [facility]. Per report, [facility] does not feel patient is safe in his apartment. Pt had a MOCA and ACL with his last ED visit and was found capable and not recommending 24/7 care at that time. Pt tells NISA that his apartment is not in good shape and that his bed is too high, which is why he falls. Ottoniel has made this statement in the past. Pt tells NISA that he bought side rails for his bed so he won't fall, and he feel anyway. CM spoke with Ottoniel at length about concerns that he is unable to live safely at home and needs more help. Ottoniel has been hesitant to have help at home. Ottoniel has not showered in weeks, as he cannot get to the shower room. NISA gently explained that he needs more help with showering and ADL's and he needs to really consider LTC in the future.
[2024-01-06 21:30] VITALS: BP 100/62; PULSE 65; RESP 14; TEMP 36.5; O2SAT 94
--- NOTE | 2024-01-07 01:30 | PC.NURSE ---
Assumed care of patient . Patient somnolent although is arousable and responds to name.VSS, refused all medications at bedtime. Bed alarm on for safety , call mcknight within reach.
[2024-01-07 05:53] VITALS: BP 108/70; PULSE 88; RESP 16; TEMP 36.6; O2SAT 95
[2024-01-07] MEDS: Tamsulosin HCL 0.4 MG CAPSULE PO (08:37)
[2024-01-07] MEDS: Gabapentin 100 MG CAPSULE 200 MG PO (08:37)
[2024-01-07] MEDS: Venlafaxine HCl ER 150 MG CAP.ER.24H PO (08:38)
[2024-01-07] MEDS: Metoprolol Tartrate 12.5 MG HALFTAB PO (08:38)
[2024-01-07] MEDS: Apixaban 5 MG TABLET PO (08:38)
[2024-01-07] MEDS: Venlafaxine HCl ER 37.5 MG CAP.ER.24H PO (08:38)
[2024-01-07] MEDS: oxyCODONE HCl Immed Release 5 MG TABLET 10 MG PO (08:43)
[2024-01-07] MEDS: LORazepam 1 MG TABLET PO (10:38)
[2024-01-07 12:46] VITALS: BP 123/9; PULSE 78; RESP 18; TEMP 36.9; O2SAT 95
== END 2024-01-07 12:49 ==
PROVIDERS: Physician Assistant; Physician Assistant Medical; Emergency Provider Emergency Medicine; PCP Internal Medicine
DX: R26.2 Difficulty in walking, not elsewhere classified (principal); M54.2 Cervicalgia; M54.50 Low back pain, unspecified; R94.31 Abnormal electrocardiogram [ECG] [EKG]; R51.9 Headache, unspecified; I48.91 Unspecified atrial fibrillation; Z79.01 Long term (current) use of anticoagulants; Z79.899 Other long term (current) drug therapy; Z87.891 Personal history of nicotine dependence; Z03.818 Encounter for observation for suspected exposure to other biological agents ruled out
CPT/HCPCS: 0241U; 36415; 70450; 71045; 72125; 80053; 81003; 82947; 83735; 83880; 84484; 85025; 93005; 97162; 99285

== ENCOUNTER 2024-03-01 10:04 | Inpatient (IN) | payer MEDICARE, SELFPAY ==
[2024-03-01] VITALS (19 sets, daily range): BP systolic 77–161; BP diastolic 53–107; PULSE 72–108; RESP 11–44; TEMP 36.1; O2SAT 90–99; BMI 33.4
--- NOTE | ~2024-03-01 | XR_ITS ---
EXAMINATION: Left hip and pelvis: CLINICAL INDICATION: Fall. Rule out fracture. COMPARISON: Chest 01/05/2024 and left hip 12/06/2023. FINDINGS: LEFT HIP: Again visualizes the stem of the left femoral prosthesis. The ball of the left femoral stem is missing. There is left acetabular segment which is stable. No visible acute fracture seen involving the left hip. There are small radiation seeds seen along the prostate gland from previous intervention. The soft tissues are normal. CHEST: The lungs are hypoexpanded but clear. The heart size and pulmonary vascularity is normal. No gross bony abnormality seen. XR/XR chest 1V IMPRESSION: Hypoexpanded lungs without acute process. There is a left hip dislocation with missing left femoral stem ball, unchanged to 09/28/2023. No fracture seen involving the left hip. Electronically signed by: Kamron Oh MD 03/01/2024 01:13 PM PAIGE MCDONOUGH
--- NOTE | ~2024-03-01 | XR_ITS ---
EXAMINATION: Left hip and pelvis: CLINICAL INDICATION: Fall. Rule out fracture. COMPARISON: Chest 01/05/2024 and left hip 12/06/2023. FINDINGS: LEFT HIP: Again visualizes the stem of the left femoral prosthesis. The ball of the left femoral stem is missing. There is left acetabular segment which is stable. No visible acute fracture seen involving the left hip. There are small radiation seeds seen along the prostate gland from previous intervention. The soft tissues are normal. CHEST: The lungs are hypoexpanded but clear. The heart size and pulmonary vascularity is normal. No gross bony abnormality seen. XR/XR hip LT w PEL1V IMPRESSION: Hypoexpanded lungs without acute process. There is a left hip dislocation with missing left femoral stem ball, unchanged to 09/28/2023. No fracture seen involving the left hip. Electronically signed by: Kamron Oh MD 03/01/2024 01:13 PM [facility]
--- NOTE | ~2024-03-01 | CT_ITS ---
EXAMINATION: CT HEAD WITHOUT CONTRAST CLINICAL INFORMATION: Head injury. Rule out fracture. Fall. COMPARISON: CT brain 01/05/2024. TECHNIQUE: Contiguous axial imaging was performed from the skull base to vertex without intravenous administration of contrast. This CT examination was performed using dose optimization techniques as appropriate, variously including the following: *Automated exposure control *Adjustment of mA and/or kV according to patient size (this includes techniques or standardized protocols for targeted exams where dose is matched to indication/reason for exam; i.e. extremities or head) *Use of iterative reconstruction technique DLP: 1377 mGy-cm FINDINGS: Limited exam secondary to patient motion. There is no acute intra-axial, extra-axial bleed, masses or midline shift. There is no acute infarction in evolution. There is no edema. The lateral ventricles are enlarged but symmetrical. The eisenberg to white matter differentiation is maintained normal. Bone windows reveal no calvarial abnormality. Bilateral paranasal sinuses and mastoid air cells are well-aerated. CT/CT head/brain wo IV con IMPRESSION: 1. No acute intracranial process seen. 2. Age-related cerebral volume loss. Electronically signed by: Kamron Oh MD 03/01/2024 02:13 PM [facility] [place]
--- NOTE | 2024-03-01 10:16 | ED_ITS ---
HPI - Altered Mental Status General Chief Complaint: General Medical Stated Complaint: MALAISE Time Seen by Provider: 03/01/24 10:14 Source: EMS Mode of arrival: EMS History of Present Illness ED Provider: Dr. Scott Kendall HPI narrative: 78-year-old male with past medical history of incisional hernia, asthma, anxiety, constipation, AFib on Eliquis, [place], iron deficiency anemia, GERD, HTN, gout who was sent to the emergency department from his snf facility, [facility] on a Section 12. The patient was not able to give me a history and keeps repeating ?I took too much Ativan?. The patient was agitated, he was moving around in the stretcher, shouting doctor, nurse, I took to much Ativan . He will not stay still on the stretcher. According to EMS, the patient self-medicated himself with 6 mg of Ativan. The patient was transferred on a section 12 however the Section 12 does not states specific reasons but just checks the box that state congestion ?very substantial risk of physical impairment or injury to person... The patient was had multiple visits to the ER. Patient had a prolonged stay in the emergency department on 11/09/2023 until 11/18/2023 for agitation. At that time he had a psychiatric consult and they recommended treating the patient with Zyprexa. Patient reported to nursing staff that he had a recent fall but can not give details this fall. Related Data Home Medications ?Medication ?Instructions ?Recorded ?Confirmed acetaminophen 325 mg tablet 650 mg PO Q4H PRN Fever Or Pain 09/30/23 01/05/24 (Tylenol) diclofenac sodium 1 % topical gel 4 g topical TID 09/30/23 12/26/23 gabapentin 100 mg capsule 200 mg PO BID 09/30/23 01/05/24 magnesium hydroxide 400 mg/5 mL 30 ml PO DAILY PRN Constipation 09/30/23 01/05/24 oral suspension (Milk of Magnesia) melatonin 10 mg tablet 10 mg PO BEDTIME 09/30/23 01/05/24 polyethylene glycol 3350 17 17 g PO DAILY PRN Constipation 09/30/23 01/05/24 gram/dose oral powder (Miralax) simethicone 80 mg chewable tablet 80 mg PO Q8H PRN Indigestion 09/30/23 01/05/24 cetirizine 10 mg tablet 10 mg PO DAILY PRN Allergy Symptoms 11/09/23 01/05/24 divalproex 500 mg tablet,delayed 500 mg PO BEDTIME 11/09/23 01/05/24 release (Depakote) fluticasone propionate 50 1 spray intranasal BID 11/09/23 01/05/24 mcg/actuation nasal spray,suspension nystatin-triamcinolone 100,000 1 appl topical BID PRN Rash 11/09/23 12/26/23 unit/g-0.1 % topical cream pantoprazole 40 mg tablet,delayed 40 mg PO DAILY@0630 11/09/23 01/05/24 release vibegron 75 mg tablet (Gemtesa) 75 mg PO DAILY 11/09/23 12/26/23 tamsulosin 0.4 mg capsule 0.4 mg PO DAILY 12/26/23 01/05/24 venlafaxine 150 mg 150 mg PO DAILY 12/26/23 01/05/24 capsule,extended release 24 hr (Effexor XR) venlafaxine 37.5 mg 37.5 mg PO DAILY 12/26/23 01/05/24 capsule,extended release 24 hr (Effexor XR) Previous Rx's ?Medication ?Instructions ?Recorded syringe with needle, safety 3 mL #100 ea 06/02/21 25 gauge x 5/8 (BD Safety-Jackie Detachable Needle) lorazepam 1 mg tablet 1 mg PO BID PRN Anxiety #60 tabs 12/03/23 apixaban 5 mg tablet 5 mg PO BID 90 days #180 tabs 12/24/23 metoprolol tartrate 25 mg tablet 12.5 mg PO BID #45 tabs 12/24/23 oxycodone 10 mg tablet 10 mg PO Q8H #7 tabs 12/26/23 lorazepam 1 mg tablet 1 mg PO BID PRN anxiety #5 tabs 01/07/24 oxycodone 10 mg tablet 10 mg PO TID PRN pain #7 tabs 01/07/24 Allergies Allergy/AdvReac Type Severity Reaction Status Date / Time carisoprodol [From Soma] Allergy Mild MENTAL Verified 03/01/24 10:37 STATUS CHANGE, BECOMES AGGRESIVE codeine [Codeine] Allergy Mild STOMACH Verified 03/01/24 10:37 UPSET, RASH gabapentin AdvReac Intermediate lousy Verified 03/01/24 10:37 feeling Review of Systems 2 Review of Systems: Yes Unobtainable due to mental status [facility] Past Medical History Medical History Incisional hernia Premature atrial complexes Shortness of breath Rash Asthma exacerbation Leukocytosis Serum potassium elevated Low vitamin D level Headache Fatigue Moderate recurrent major depression Hospital discharge follow-up Chest tightness Dyspnea on exertion Allergic bronchitis Generalized anxiety disorder Tinea cruris SOB (shortness of breath) on exertion Constipation Atrial fibrillation Knee fracture, left Wedge compression fracture of L1 vertebra Prostate cancer Iron deficiency anemia Obstructive sleep apnea Vitamin D deficiency Diverticular disease Obesity (BMI 30-39.9) Peptic ulcer disease Degenerative disc disease GERD (gastroesophageal reflux disease) Anxiety and depression Vitamin B12 deficiency Gout Hypertension Fatigue Dysuria Surgical History History of colonoscopy History of hemiarthroplasty of left hip H/O rectal polypectomy History of knee replacement procedure of left knee H/O hernia repair History of pyloroplasty History of bowel resection History of cholecystectomy Family History Family History Father Diabetes Acute kidney failure Glaucoma Mother Lung cancer Social History Social History Household Members: None Housing: Other Housing Other:: independent living Do you presently have visiting nurse or other home services: No Unable to assess alcohol history related to: Unknown Alcohol intake: never Comment: sitter at bedside Patient Tobacco Use Status: Former Tobacco user Tobacco use type: Cigar e-Cigarette/Vaping Use: Currently Using Second Hand Smoke Exposure: No Use of substances other than those prescribed or required for medical reasons: Unknown Advance Directives: Yes Advance Directives on File: Yes Advance Directives Date on File: 07/03/22 Do you have a plan to hurt others: No Plan service: No Current occupational status: retired Cognitive needs: No Hearing needs: Yes Vision needs: Yes Physical Exam ED Vital Signs: Vital Signs - 24 hr 03/01/24 10:18 03/01/24 10:31 03/01/24 10:49 Temperature 97.0 F Pulse Rate 86 72 79 Respiratory Rate 18 18 20 Blood Pressure 127/64 106/69 Pulse Oximetry 98 98 90 L Oxygen Delivery Method Room Air Room Air Room Air 03/01/24 10:50 03/01/24 11:19 03/01/24 11:58 Temperature Pulse Rate 79 80 77 Respiratory Rate 14 15 19 Blood Pressure 87/57 L 157/107 H 77/53 L Pulse Oximetry 91 L Oxygen Delivery Method Room Air 03/01/24 11:59 03/01/24 12:07 03/01/24 12:09 Temperature Pulse Rate 78 80 74 Respiratory Rate 18 16 21 H Blood Pressure 152/78 H 147/93 H 147/93 H Pulse Oximetry 96 Oxygen Delivery Method Room Air 03/01/24 12:32 03/01/24 16:40 03/01/24 17:49 Temperature Pulse Rate 74 75 93 Respiratory Rate 21 H 18 11 L Blood Pressure 155/92 H 124/90 H 143/105 H Pulse Oximetry 95 98 Oxygen Delivery Method Room Air Room Air 03/01/24 18:01 03/01/24 18:16 03/01/24 18:30 Temperature Pulse Rate 95 89 99 Respiratory Rate 16 20 27 H Blood Pressure 151/104 H 148/95 H 161/103 H Pulse Oximetry 96 96 Oxygen Delivery Method Room Air Room Air BMI result Body Mass Index 33.4 Exam: General: Awake, , agitated, not redirectable, out of stretcher Head: Normocephalic, atraumatic EENT: PERRL, Lids normal, sclera normal, conjunctiva normal, nose normal , ears normal, throat without erythema or exudates Neck: Supple, no adenopathy Lung: breath sounds symmetric, no wheezing, rales or rhonchi Chest: symmetric movement, nontender Heart: regular rate and rhythm, normal S1, S2 no murmurs or rubs Abdomen: soft, non-tender, nondistended, normal bowel sounds Back: no vertebral tenderness, no CVAT Extremities: Patient has left leg is externally rotated Neuro: Awake, agitated, uncooperative Medications Administered Discontinued Medications Generic Name Dose Route Start Last Admin Trade Name Freq PRN Reason Stop Dose Admin Diphenhydramine HCl 50 mg 03/01/24 10:16 03/01/24 10:25 Diphenhydramine Hcl 50 Mg/Ml Vial IM 03/01/24 10:17 50 mg ONCE ONE Administration Diphenhydramine HCl 50 mg 03/01/24 17:39 03/01/24 17:46 Diphenhydramine Hcl 50 Mg/Ml Vial IM 03/01/24 17:40 50 mg ONCE ONE Administration Haloperidol Lactate 10 mg 03/01/24 10:16 03/01/24 10:25 Haloperidol Lactate 5 Mg/Ml Vial IM 03/01/24 10:17 10 mg ONCE ONE Administration Haloperidol Lactate 5 mg 03/01/24 17:37 03/01/24 17:46 Haloperidol Lactate 5 Mg/Ml Vial IM 03/01/24 17:38 5 mg ONCE ONE Administration Lidocaine HCl 10 ml 03/01/24 12:35 03/01/24 17:02 Lidocaine Hcl 2 % Urojet 10 Ml Jel.Pf.Martin TOPICAL 03/01/24 12:36 10 ml ONCE ONE Administration Lorazepam 2 mg 03/01/24 17:37 03/01/24 17:46 Lorazepam 2 Mg/Ml Vial IVPUSH 03/01/24 17:38 2 mg ONCE ONE Administration Olanzapine 10 mg 03/01/24 11:10 03/01/24 11:30 Olanzapine 10 Mg Vial IM 03/01/24 11:11 10 mg STAT STA Administration Olanzapine 10 mg 03/01/24 12:35 03/01/24 12:53 Olanzapine 10 Mg Vial IM 03/01/24 12:36 10 mg STAT STA Administration Medical Decision Making Medical Decision Making [facility] Narrative: 78-year-old male with past medical history of incisional hernia, asthma, anxiety, constipation, AFib on Eliquis, [place], iron deficiency anemia, GERD, HTN, gout who was sent to the emergency department from his snf facility, [facility] on a Section 12. Patient reported to the nursing staff that he had a recent fall but was unable to give details. Patient was agitated and kept shouting and was not redirectable. Physical examination did reveal external rotation of his left lower extremity otherwise was unremarkable. Differential diagnosis: ?Includes but is not limited to depression, anxiety, agitation, skull fracture, intracranial bleed, left hip/pelvic fracture, anemia, electrolyte abnormalities, urinary tract infection CBC, CMP, lipase, troponin, urinalysis, CT scan of the brain without IV contrast, chest x-ray one view, left hip and pelvis x-ray Course: 18:34 Start physician observation Patient was agitated uncooperative therefore he required chemical restraint with Haldol 10 mg, Benadryl 50 mg IM. Patient then required further medication with Zyprexa 10 mg IM x2 in order to complete his evaluation. My independent interpretation patient's laboratory evaluation is as follows: WBC elevated 11,600. Microcytic anemia with an H&H of 10.0 and 33.8, MCV was 74.4. PTT was normal. CMP revealed an elevated AST of 39 otherwise unremarkable. Lipase was normal. CT of the head revealed no acute fracture or bleed. Left hip x-ray did not reveal any acute fracture but patient does have a left hip dislocation with missing left femoral stem ball which is chronic. At this time I believe that the patient is medically cleared and can be evaluated by the care team The patient did have urinary retention and will Cesar catheter. At the end of my shift, the patient's care was turned over to my colleague, Dr Ureña who will attempt to Cesar catheter placement and take over management of this patient Admission/Observation Consideration of admission/observation: Escalation of care including admission/observation considered (Yes) Lab Data MDM Lab Attestation statement: I reviewed the patient's lab results. 03/01/24 12:20 03/01/24 12:20 Labs: Lab Results 03/01/24 Range/Units 12:20 WBC 11.6 H (4.8-10.8) X10*3/uL RBC 4.54 L (4.60-5.80) X10*6/uL Hgb 10.0 L (14.0-18.0) g/dl Hct 33.8 L (42.0-52.0) % MCV 74.4 L (80.0-98.0) fL MCH 22.0 L (27.0-33.0) pg MCHC 29.6 L (31.0-36.0) g/dl RDW 18.8 H (11.0-16.0) % Plt Count 316 D (160-400) X10*3/uL MPV 9.5 (9.4-12.4) fL Immature Gran % (Auto) 0.3 (0.0-0.4) % Neut % (Auto) 60.7 (45-73) % Lymph % (Auto) 30.0 (20-40) % [place] % (Auto) 7.5 (2-11) % Eos % (Auto) 1.0 (0-4) % Baso % (Auto) 0.5 (0-2) % Lymph # (Auto) 3.5 (1.2-4.9) X10*3/uL [place] # (Auto) 0.9 (0.1-1.2) X10*3/uL Eos # (Auto) 0.1 (0.0-0.4) X10*3/uL Baso # (Auto) 0.1 (0.0-0.2) X10*3/uL Abs Immat Gran (auto) 0.04 H (0.00-0.03) X10*3/uL Absolute Neuts (auto) 7.0 (2.0-8.3) x10*3/uL Absolute Nucleated RBC 0.000 (0.0-0.012) X10*3/uL Nucleated RBC % (auto) 0.0 (0.0-0.2) /100WBC APTT 31.5 (26.0-36.8) SEC Sodium 142 (135-145) mmol/L Potassium 3.9 (3.3-5.1) mmol/L Chloride 108 (96-108) mmol/L Carbon Dioxide 22 (22-29) mmol/L Anion Gap 16 (12-20) BUN 15 (9-16) mg/dL Creatinine 0.97 (0.5-1.4) mg/dL Estim Creat Clear Calc 77.5 Estimated GFR > 60 Random Glucose 95 (60-115) mg/dL Calcium 9.2 (8.4-10.2) mg/dL Total Bilirubin 0.3 (0.0-1.0) mg/dL AST 39 H (5-37) U/L ALT 14 (0-40) U/L Alkaline Phosphatase 81 (39-117) U/L Troponin I High Sens 3.6 (<3.5-35.0) ng/L Total Protein 7.3 (6.5-8.0) g/dL Albumin 4.0 (3.5-5.0) g/dL Lipase 14 (8-78) U/L Radiology Impression Discussion of test interpretation with radiology: I have reviewed the radiologist's reading. Radiologist Impression: XR chest 1V and left hip with pelvis IMPRESSION: Hypoexpanded lungs without acute process. There is a left hip dislocation with missing left femoral stem ball, unchanged to 09/28/2023. No fracture seen involving the left hip. Electronically signed by: Kamron Oh MD 03/01/2024 01:13 PM EST RP Dictated By: Kamron Oh MD CT head/brain wo IV con IMPRESSION: 1. No acute intracranial process seen. 2. Age-related cerebral volume loss. Electronically signed by: Kamron Oh MD 03/01/2024 02:13 PM EST RP Chronic Conditions Patient?s care impacted by: Hypertension Discharge Plan Discharge Clinical Impression: Aggressive behavior, Acute urinary retention Patient Disposition: Still a Patient Prescriptions: No Action (DME) BD Safety-Jackie Detachable Needl 3 mL 25 gauge x 5/8 syringe See Rx Instructions .ROUTE .MEDSUPPLY Qty: 100 12RF Rx Instructions: As directed diclofenac sodium 1 % Gel 4 g TOPICAL TID Rx Instructions: Apply topically to right hip. lorazepam 1 mg tablet 1 mg PO BID PRN (Reason: Anxiety) Qty: 60 0RF acetaminophen [Tylenol] 325 mg Tablet 650 mg PO Q4H PRN (Reason: Fever Or Pain) Rx Instructions: Discomfort/temp 101 or greater. magnesium hydroxide [Milk of Magnesia] 400 mg/5 mL Suspension 30 ml PO DAILY PRN (Reason: Constipation) Rx Instructions: for no BM in 3 DAYS gabapentin 100 mg Capsule 200 mg PO BID polyethylene glycol 3350 [Miralax] 17 gram/dose Powder 17 g PO DAILY PRN (Reason: Constipation) Rx Instructions: Mix with 4-6 Oz of fluid of choice. simethicone 80 mg Tablet,Chewable 80 mg PO Q8H PRN (Reason: Indigestion) melatonin 10 mg Tablet 10 mg PO BEDTIME cetirizine 10 mg tablet 10 mg PO DAILY PRN (Reason: Allergy Symptoms) divalproex [Depakote] 500 mg tablet,delayed release (DR/EC) 500 mg PO BEDTIME pantoprazole 40 mg tablet,delayed release (DR/EC) 40 mg PO DAILY@0630 nystatin-triamcinolone 100,000-0.1 unit/g-% cream 1 appl topical BID PRN (Reason: Rash) fluticasone propionate 50 mcg/actuation spray,suspension 1 spray intranasal BID Gemtesa 75 mg tablet 75 mg PO DAILY metoprolol tartrate 25 mg Tablet 12.5 mg PO BID Qty: 45 0RF Protocol: Hold for SBP/HR < HOLD for SBP < : 120 HOLD for HR < : 60 apixaban 5 mg tablet 5 mg PO BID 90 Days Qty: 180 2RF venlafaxine [Effexor XR] 150 mg capsule,extended release 24hr 150 mg PO DAILY tamsulosin 0.4 mg capsule 0.4 mg PO DAILY oxycodone 10 mg tablet 10 mg PO Q8H Qty: 7 0RF Rx Instructions: Partial Fill upon patient request. venlafaxine [Effexor XR] 37.5 mg capsule,extended release 24hr 37.5 mg PO DAILY lorazepam 1 mg tablet 1 mg PO BID PRN (Reason: anxiety) Qty: 5 0RF oxycodone 10 mg tablet 10 mg PO TID PRN (Reason: pain) Qty: 7 0RF Rx Instructions: Partial Fill upon patient request. Print Language: Rwandan
--- NOTE | 2024-03-01 10:19 | ECG_ITS ---
Test Reason : Over dose Blood Pressure : / mmHG Vent. Rate : 074 BPM Atrial Rate : 074 BPM P-R Int : 158 ms QRS Dur : 080 ms QT Int : 406 ms P-R-T Axes : 035 033 066 degrees QTc Int : 450 ms Normal sinus rhythm with sinus arrhythmia Possible Lateral infarct (cited on or before 18-DEC-2022) Abnormal ECG When compared with ECG of 05-JAN-2024 14:49, Premature atrial complexes are no longer Present Referred By: Scott Kendall Electronically Signed By:JC SANTIAGO
[2024-03-01] MEDS: diphenhydrAMINE HCL 50 MG/ML VIAL IM ×2 (10:25→17:46)
[2024-03-01] MEDS: Haloperidol Lactate 5 MG/ML VIAL 10 MG IM (10:25)
[2024-03-01] MEDS: OLANZapine 10 MG VIAL IM ×2 (11:30→12:53)
--- NOTE | 2024-03-01 12:04 | PC.NURSE ---
Pt arrives from [facility] via EMS. Per EMS report, concerns by [facility] that Pt has general malaise and over self medicated with Ativan 6mg. Pt is a Section 12 Upon arrival Pt is severely agitated with frequent yelling, foul language, and uncooperative with care. Pt makes several attempted to leave his bed and removes medical equipment (o2 sat, bp cuff, hospital attire.) Pt does not follow verbal commands despite frequent verbal reassurance and emotional support. Pt medicated per JUN with Haldol and Benadryl and closely monitored. Pt continues to be restless, uncooperative with agitation and consistent yelling out. Pt given Zyprexa per MAR and Pt is being closely monitored.
[2024-03-01 12:25] LABS: MANUAL DIFF FLAG NO
[2024-03-01 12:29] LABS: Basophils Absolute Auto 0.1 X10*3/uL (0.0-0.2); Basophils Percent Auto 0.5 % (0-2); Eosinophils Absolute Auto 0.1 X10*3/uL (0.0-0.4); Hematocrit 33.8 % (42.0-52.0); Imm Gran Abs Auto 0.04 X10*3/uL (0.00-0.03); Imm Gran Pct Auto 0.3 % (0.0-0.4); Lymphocytes Absolute Auto 3.5 X10*3/uL (1.2-4.9); Mean Corpuscular HGB Conc 29.6 g/dl (31.0-36.0); Mean Corpuscular Volume 74.4 fL (80.0-98.0); Mean Platelet Volume 9.5 fL (9.4-12.4); Monocytes Absolute Auto 0.9 X10*3/uL (0.1-1.2); Monocytes Percent Auto 7.5 % (2-11); Neutrophils Percent Auto 60.7 % (45-73); Platelet Count 316 X10*3/uL (160-400); Red Blood Count 4.54 X10*6/uL (4.60-5.80); Red Cell Distribution Width 18.8 % (11.0-16.0); White Blood Count 11.6 X10*3/uL (4.8-10.8)
--- NOTE | 2024-03-01 12:35 | PC.NURSE ---
BLADDER SCAN PERFOMED- >638MLS IN BLADDER- PRIMARY RN AWARE, MD CRAMER TO BEDSIDE
--- NOTE | 2024-03-01 12:37 | PC.NURSE ---
Skin tear noted to Pts L posterior forearm, when asked Pt states he fell. LLE presents with internal rotation. When repositioned, LLE returned to internally rotates position. Dr. Donahue called to bedside, plan to image extremity and head CT d/t sated fall. Verbal order for straight cath given. During procedure, Pt combative striking staff members with closed fists and screaming. Upon advancing catheter, esau blood noted to drain into bag. Bladder scan performed immediately, noted [address] Donahue orders for [address] macdonald perform as Pt is on thinners.
[2024-03-01 12:41] LABS: Partial Thromboplastin Time 31.5 SEC (26.0-36.8)
[2024-03-01 12:49] LABS: Alanine Aminotransferase 14 U/L (0-40); Alkaline Phosphatase 81 U/L (39-117); Anion Gap 16 (12-20); Aspartate Amino Transferase 39 U/L (5-37); Bilirubin Total 0.3 mg/dL (0.0-1.0); Blood Urea Nitrogen 15 mg/dL (9-16); Calcium 9.2 mg/dL (8.4-10.2); Carbon Dioxide 22 mmol/L (22-29); Chloride 108 mmol/L (96-108); Creatinine Clr Calc Pharmacy 77.5; Estimated Glomerular Filt Rate > 60; Glucose Random 95 mg/dL (60-115); Lipase 14 U/L (8-78); Potassium 3.9 mmol/L (3.3-5.1); Sodium 142 mmol/L (135-145); Total Protein 7.3 g/dL (6.5-8.0)
[2024-03-01 12:51] LABS: Troponin-I High Sensitivity 3.6 ng/L (<3.5-35.0)
--- NOTE | 2024-03-01 14:58 | PC.NURSE ---
Pt noted to be incontinent on sheets and floor, amount unable to be measured. Bladder scan completed, 590mls noted. Per Dr. Donahue will hold on 3 way catheter at this time. Plan to re-scan in 1 hour and re-assess.
[2024-03-01] MEDS: Lidocaine HCl 2 % Urojet 10 ML JEL.PF.APP TOPICAL ×2 (17:02→18:20)
--- NOTE | 2024-03-01 17:02 | PC.NURSE ---
Second attempt at straight cath as Pt has been incontinent x2. Attempt unsuccessful d/t significant resistance and noted blood. Will report to ED Provider and await new orders.
--- NOTE | 2024-03-01 17:24 | PC.NURSE ---
Pt continues to be severely agitated with aggressive behavior. Pt noted to grab at staff members, shove hand in staff members faces, shout foul language and is resistive all attempted care. Pt pulls off all monitoring medical equipment and frequently attempted to place his legs through and over bed rails.
[2024-03-01] MEDS: LORazepam 2 MG/ML VIAL IVPUSH (17:46)
[2024-03-01] MEDS: Haloperidol Lactate 5 MG/ML VIAL IM (17:46)
--- NOTE | 2024-03-01 18:41 | PC.NURSE ---
Dr. Horvath at bedside for catheter placement. 20F coude place. Approx 800ml of yellow urine drained initially. Urine spec sent to lab. Pt combative during and after procedure. Pulling at medical equipment and attempting to bite staff. Soft restraints ordered per Dr. Horvath--applied at 1830. Paperwork initiatied.
[2024-03-01 18:49] LABS: Appearance Urine Clear; Color Urine Yellow; Glucose Urine UA Negative (Negative); Leukocyte Esterase Urine Negative (Negative); Nitrite Urine Negative (Negative); PH 7.5 (5.0-9.0); Urine Blood Negative (Negative); Urine Ketones Negative (Negative); Urine Protein Negative (Neg-Trace)
--- NOTE | 2024-03-01 19:24 | PC.NURSE ---
Addendum entered by Ariadna Buitrago Patricia 03/03/24 19:13: When respositioning pt , pt attemping to grab Daily catheter- pt continues to be disoriented. Original Note: Assumed care of pt at 1845. PT resting in bed quietly, soft restraints in place d/t pt puling daily cath. Pt repositioned, range of motion checked, vss, +output of Daily clear yellow urine, doesnt not respond when assessing pain but appears comfortable and in and no acute distress. Explained why he was soft restraints and he confirmed he understood why. TW turn TV on for pt as he reports he likes sports. PT laying quietly. Rodríguez of care ongoing
--- NOTE | 2024-03-01 20:30 | PC.NURSE ---
PT continuing to be extremely uncooperative, yelling and is disoriented. PT legs hanging over side rails in what appeared to be an attempt to reposition self to touch daily cath, repeatedly reminded not to. Plan to continue restraints. vital signs stable.
[2024-03-01] MEDS: LORazepam 1 MG TABLET PO (20:56)
[2024-03-01] MEDS: oxyCODONE HCl Immed Release 5 MG TABLET 10 MG PO (20:56)
--- NOTE | 2024-03-01 22:30 | PC.NURSE ---
Addendum entered by Ariadna Pelayoarnacion 03/03/24 23:24: soft restraints to continue for pt safety Original Note: Pt incontinent of stool, full bed change and pericare provided with assistance from high speed operatornikki Frias. Soft restraints needed to released to allow for pt to be repositioned cleaned thoroughly and while doing so pt extremely disoriented, uncooperative and agitated trying to pull daily multiple redirections to not pull catherter were unsuccessful
[2024-03-02] VITALS (18 sets, daily range): BP systolic 100–143; BP diastolic 68–88; PULSE 65–117; RESP 17–27; TEMP 36–36.6; O2SAT 93–99; BMI 30.7
--- NOTE | 2024-03-02 00:30 | MHC.EDTECH ---
Pt cleaned, washed with wash clothes and changed. Stool solid. and cath bag emptied at this time. 850ml emptied. Pt given a few sips of gingerale. Pt restless
--- NOTE | 2024-03-02 00:30 | PC.NURSE ---
PT incontinent of stool again, pericare provided. PT continuing to try and pull at daily catheter and attempt to get out of bed- legging hanging over side rail, pt disoriented redirected unsuccessful . VSS, provider aware of pt status.
[2024-03-02] MEDS: OLANZapine 10 MG VIAL IM (01:30)
--- NOTE | 2024-03-02 02:20 | PC.NURSE ---
PT continuing to be extremely agitated, and disoriented not responding to redirection or attempts at therapeutic communication and attention. Pt continuing to try and pull daily cath. Provider aware pt rec'd IM zyprexa for agitation. will continue restriants
--- NOTE | 2024-03-02 03:08 | MHC.EDTECH ---
Pt changed again at this time. stool oily and loose this time. still in soft restraints. tugging at wires and daily
--- NOTE | 2024-03-02 03:45 | PC.NURSE ---
PT found with legs on side of bed rail. removed from soft restraints, and assisted to edge of bed to allow pt change of position and to trial release, pt uncooperative, attempting to stand up although very unsteady of feet and extremely disoriented. PT also repeatedly attempting to pull at daily. Attempts to redirection unsuccessful. Pt repositioned and placed back in restraints for safety
--- NOTE | 2024-03-02 04:44 | ECG_ITS ---
Test Reason : tachycardic Blood Pressure : / mmHG Vent. Rate : 108 BPM Atrial Rate : 000 BPM P-R Int : 000 ms QRS Dur : 078 ms QT Int : 338 ms P-R-T Axes : 000 024 075 degrees QTc Int : 452 ms Atrial fibrillation with rapid ventricular response Possible Lateral infarct (cited on or before 18-DEC-2022) Abnormal ECG When compared with ECG of 01-MAR-2024 12:09, Atrial fibrillation has replaced Sinus rhythm Referred By: Generic ED Physician Electronically Signed By:CONOR VALERO MD
[2024-03-02] MEDS: Metoprolol Tartrate 5 MG/5 ML VIAL IVPUSH (05:04)
[2024-03-02] MEDS: LORazepam 2 MG/ML VIAL IVPUSH (05:04)
--- NOTE | 2024-03-02 05:12 | PC.NURSE ---
PT HR noted to be irregular and elevated 110-145. EKG ordered- pt in afib rvr. Provider notified. New orders placed- medications administered as per MAR> PT heart rate currently 95bpm. Soft restraints removed or ROM and repositioning in bed. Pt continuing to attempt to grab daily catheter and is disoriented. will continue restriants
--- NOTE | 2024-03-02 07:00 | PC.NURSE ---
Report taken from Ariadna Fenton RN
--- NOTE | 2024-03-02 07:19 | PC.NURSE ---
Pt. incontinent of stool. Incontinence care provided. VSS
[2024-03-02] MEDS: Haloperidol Lactate 5 MG/ML VIAL IM (08:27)
--- NOTE | 2024-03-02 08:27 | PC.NURSE ---
Pt. on security monitor at this time.
[2024-03-02 08:57] LABS: MANUAL DIFF FLAG NO
[2024-03-02 09:00] LABS: Basophils Absolute Auto 0.1 X10*3/uL (0.0-0.2); Basophils Percent Auto 0.5 % (0-2); Eosinophils Absolute Auto 0.1 X10*3/uL (0.0-0.4); Eosinophils Percent Auto 0.9 % (0-4); Hemoglobin 10.1 g/dl (14.0-18.0); Imm Gran Abs Auto 0.08 X10*3/uL (0.00-0.03); Imm Gran Pct Auto 0.6 % (0.0-0.4); Lymphocytes Absolute Auto 3.5 X10*3/uL (1.2-4.9); Mean Corpuscular HGB Conc 30.6 g/dl (31.0-36.0); Mean Corpuscular Hemoglobin 22.6 pg (27.0-33.0); Mean Corpuscular Volume 73.8 fL (80.0-98.0); Mean Platelet Volume 8.9 fL (9.4-12.4); Monocytes Absolute Auto 1.3 X10*3/uL (0.1-1.2); Monocytes Percent Auto 9.6 % (2-11); Neutrophils Absolute Auto 8.8 x10*3/uL (2.0-8.3); Neutrophils Percent Auto 63.4 % (45-73); Platelet Count 301 X10*3/uL (160-400); Red Blood Count 4.47 X10*6/uL (4.60-5.80); Red Cell Distribution Width 18.8 % (11.0-16.0); White Blood Count 13.8 X10*3/uL (4.8-10.8)
--- NOTE | 2024-03-02 09:00 | PC.NURSE ---
Incontinent of feces. Incontinence care provided
[2024-03-02] MEDS: 0.9 % Sodium Chloride 1,000 ML 999 ML IV ×2 (09:04→12:06)
[2024-03-02 09:12] LABS: Alanine Aminotransferase 14 U/L (0-40); Albumin Level 3.8 g/dL (3.5-5.0); Alkaline Phosphatase 87 U/L (39-117); Anion Gap 14 (12-20); Aspartate Amino Transferase 40 U/L (5-37); Bilirubin Direct 0.2 mg/dL (0.0-0.5); Bilirubin Total 0.6 mg/dL (0.0-1.0); Blood Urea Nitrogen 17 mg/dL (9-16); Calcium 9.1 mg/dL (8.4-10.2); Carbon Dioxide 24 mmol/L (22-29); Chloride 109 mmol/L (96-108); Creatinine Clr Calc Pharmacy 70.3; Estimated Glomerular Filt Rate > 60; Glucose Random 110 mg/dL (60-115); Lipase 8 U/L (8-78); Potassium 3.8 mmol/L (3.3-5.1); Sodium 143 mmol/L (135-145); Total Protein 6.8 g/dL (6.5-8.0)
[2024-03-02 09:17] LABS: Appearance Urine Cloudy; Color Urine Dark Yellow; Glucose Urine UA Negative (Negative); Leukocyte Esterase Urine Moderate (2+) (Negative); Nitrite Urine Negative (Negative); PH 6.5 (5.0-9.0); UMIC TRIGGER UACC YES; Urine Blood Large (3+) (Negative); Urine Ketones Trace mg/dL (Negative); Urine Protein 100 (2+) mg/dL (Neg-Trace)
[2024-03-02 09:30] LABS: Bacteria Urine 3+ (None Seen); Hyaline Casts Urine 0-2 /LPF (0-2); RBC Urine >20 /HPF (0-2); UACC Culture Trigger YES
--- NOTE | 2024-03-02 09:46 | PC.NURSE ---
Bladder scanned for 65ccs
--- NOTE | 2024-03-02 09:53 | PC.NURSE ---
Restraints discontinued. Pt. calm and cooperative at this time
--- NOTE | 2024-03-02 10:09 | PHA.MEDREC ---
Pharmacy Consult ? Medication Reconciliation Pharmacy has completed the medication reconciliation. Utilized list from [facility] [place].
[2024-03-02] MEDS: Metoprolol Tartrate 12.5 MG HALFTAB PO ×2 (10:55→22:30)
[2024-03-02] MEDS: Apixaban 5 MG TABLET PO ×2 (10:56→22:28)
--- NOTE | 2024-03-02 10:57 | PC.NURSE ---
Pt. took meds. whole in applesauce without issue
--- NOTE | 2024-03-02 11:52 | PC.NURSE ---
Incontinence care provided to pt. - full bed change
--- NOTE | 2024-03-02 11:52 | PC.NURSE ---
20G IV inserted to pt.'s right ankle, wrapped and hidden under a sock d/t pt. continuously pulling at his IVs
[2024-03-02] MEDS: cefTRIAXone sodium 1 GM VIAL IVPUSH (12:03)
--- NOTE | 2024-03-02 12:10 | MHC.EDTECH ---
pt dentures found on top of cart. Dentures placed in clean cup with denture tabs and labeled
--- NOTE | 2024-03-02 12:12 | P.HPHOSP_ITS ---
History of Present Illness Date of Service: 03/02/24 Attending physician on admission: [facility] Chief Complaint: took too much ativan Patient is a 78-year-old male with a past medical history significant for an incisional hernia, mild intermittent asthma, anxiety, constipation, paroxysmal AFib, obstructive sleep apnea, BPH GERD, iron-deficiency anemia, PVD, HTN, gout, CKD 3, type 2 diabetes and dementia who reported to the ED on 03/01/2024 from [facility] with concerns for taking too much Ativan . EMS reported he took 6mg lorazepam. He was seen by behavioral health this morning who recommended the patient be tapered from Ativan and Sakina psych eval due to the need for chemical restraints for 14 hours, including Haldol 10 mg, Benadryl 50 mg IM, and Zyprexa 10 mg IM x2. He was shouting and not redirectable. He also did have urinary retention and a Cesar catheter was placed yesterday with some challenge with multiple straight cath. Catheter has since been removed today and he is urinating without. The patient is complaining of lower abdominal and penile pain, likely due to trauma from the catheter placement and/or infection. History is very difficult to obtain however he does deny chest pain or shortness of breath. Review of Systems 2 Review of Systems: Yes Unobtainable due to mental condition [facility] Medical History Incisional hernia Premature atrial complexes Shortness of breath Rash Asthma exacerbation Leukocytosis Serum potassium elevated Low vitamin D level Headache Fatigue Moderate recurrent major depression Hospital discharge follow-up Chest tightness Dyspnea on exertion Allergic bronchitis Generalized anxiety disorder Tinea cruris SOB (shortness of breath) on exertion Constipation Atrial fibrillation Knee fracture, left Wedge compression fracture of L1 vertebra Prostate cancer Iron deficiency anemia Obstructive sleep apnea Vitamin D deficiency Diverticular disease Obesity (BMI 30-39.9) Peptic ulcer disease Degenerative disc disease GERD (gastroesophageal reflux disease) Anxiety and depression Vitamin B12 deficiency Gout Hypertension Fatigue Dysuria Cognitive capacity: dementia Family History Father Diabetes Acute kidney failure Glaucoma Mother Lung cancer Surgical History History of colonoscopy History of hemiarthroplasty of left hip H/O rectal polypectomy History of knee replacement procedure of left knee H/O hernia repair History of pyloroplasty History of bowel resection History of cholecystectomy Social History Household Members: None Housing: Other Housing Other:: independent living Do you presently have visiting nurse or other home services: No Unable to assess alcohol history related to: Unknown Alcohol intake: never Comment: sitter at bedside Patient Tobacco Use Status: Former Tobacco user Tobacco use type: Cigar e-Cigarette/Vaping Use: Currently Using Second Hand Smoke Exposure: No Use of substances other than those prescribed or required for medical reasons: Unknown Advance Directives: Yes Advance Directives on File: Yes Advance Directives Date on File: 07/03/22 Do you have a plan to hurt others: No Plan service: No Current occupational status: retired Cognitive needs: No Hearing needs: Yes Vision needs: Yes Meds Allergies Allergy/AdvReac Type Severity Reaction Status Date / Time carisoprodol [From Soma] Allergy Mild MENTAL Verified 03/01/24 10:37 STATUS CHANGE, BECOMES AGGRESIVE codeine [Codeine] Allergy Mild STOMACH Verified 03/01/24 10:37 UPSET, RASH gabapentin AdvReac Intermediate lousy Verified 03/01/24 10:37 feeling Active Medications: Current Medications Apixaban (Apixaban 5 Mg Tablet) 5 mg PO BID [facility] Last Admin: 03/02/24 10:56 Dose: 5 mg Sodium Chloride (Ns) 1,000 mls @ 999 mls/hr IV .Q1H1M MAGALIS Stop: 03/02/24 12:45 Last Admin: 03/02/24 12:06 Dose: 999 mls/hr Metoprolol Tartrate (Metoprolol Tartrate 12.5 Mg Halftab) 12.5 mg PO BID [facility]; Protocol Last Admin: 03/02/24 10:55 Dose: 12.5 mg Home Medications ?Medication ?Instructions ?Recorded ?Confirmed ?Last Taken ?Type acetaminophen 325 mg tablet 650 mg PO Q4H PRN Fever Or Pain 09/30/23 03/02/24 Unknown History (Tylenol) diclofenac sodium 1 % topical gel 4 g topical TID pain 09/30/23 03/02/24 12/25/23 History gabapentin 100 mg capsule 300 mg PO TID PAIN 09/30/23 03/02/2412/24/24 History magnesium hydroxide 400 mg/5 mL 30 ml PO DAILY PRN constipation, 09/30/23 03/02/24 Unknown History oral suspension (Milk of Magnesia) laxative, for no BM in 3 days melatonin 10 mg tablet 10 mg PO BEDTIME insomnia 09/30/23 03/02/24 12/25/23 History polyethylene glycol 3350 17 17 g PO DAILY Constipation 09/30/23 01/05/24 12/25/23 History gram/dose oral powder (Miralax) simethicone 80 mg chewable tablet 80 mg PO Q8H PRN Indigestion 09/30/23 03/02/24 Unknown History divalproex 500 mg tablet,delayed 500 mg PO BEDTIME 11/09/23 03/02/24 12/25/23 History release (Depakote) fluticasone propionate 50 1 spray intranasal BID allergies 11/09/23 03/02/24 12/25/23 History mcg/actuation nasal spray,suspension nystatin-triamcinolone 100,000 1 appl topical BID PRN Rash 11/09/23 03/02/24 Unknown History unit/g-0.1 % topical cream pantoprazole 40 mg tablet,delayed 40 mg PO DAILY@0630 11/09/23 03/02/24 12/25/23 History release vibegron 75 mg tablet (Gemtesa) 75 mg PO DAILY 11/09/23 03/02/24 12/25/23 History tamsulosin 0.4 mg capsule 0.4 mg PO DAILY 12/26/23 03/02/24 Unknown History venlafaxine 150 mg 150 mg PO DAILY 12/26/23 03/02/24 12/25/23 History capsule,extended release 24 hr (Effexor XR) venlafaxine 37.5 mg 37.5 mg PO DAILY 12/26/23 03/02/24 Unknown History capsule,extended release 24 hr (Effexor XR) acetaminophen 650 mg rectal 650 mg DE Q4H PRN GENERAL 03/02/24 03/02/24 Unknown History suppository DISCOMFORT/ TEMP 101 DE GREATER bisacodyl 10 mg rectal suppository 10 mg DE DAILY PRN for no BM if 03/02/24 03/02/24 Unknown History MOM ineffective docusate sodium 100 mg capsule 100 mg PO BID 03/02/24 03/02/24 Unknown History (Colace) lidocaine 4 % topical patch 1 patch topical DAILY 03/02/24 03/02/24 Unknown History loratadine 10 mg tablet 10 mg PO DAILY allergies 03/02/24 03/02/24 Unknown History naloxone 0.4 mg/mL injection 0.4 mg subcut Q3M PRN overdose / 03/02/24 03/02/24 Unknown History solution sedation/ unresponsive oxycodone 5 mg tablet 5 mg PO BID PRN moderate pain 03/02/24 03/02/24 Unknown History polyvinyl alcohol 1.4 % eye drops 1 drp ophthalmic (eye) BID dry eyes 03/02/24 03/02/24 Unknown History (Artificial Tears (polyvinyl alcohol)) sodium phosphates 19 gram-7 118 ml DE DAILY PRN no BM & if 03/02/24 03/02/24 Unknown History gram/118 mL enema (Fleet Enema) bisacodyl supp ineffective Physical Exam 2 Vital Signs and Narrative: Vital Signs: Last Vital Signs Temp 97.9 F 03/02/24 12:11 Pulse 81 03/02/24 12:11 Resp 17 03/02/24 12:11 BP 107/79 03/02/24 12:11 Pulse Ox 96 03/02/24 12:11 O2 Del Method Room Air 03/02/24 12:11 BMI result Body Mass Index 33.4 General: Alert, not oriented to place and time, appears uncomfortable, grabbing at lower abd/groin Resp: CTA bilaterally CVS: S1, S2, irregularly irregular GI: hypoactive BS, NT, mild distention Skin: Warm, dry Extremities: No edema Psych: Anxious, redirectable but does not answer most questions Results Labs 03/02/24 08:53 03/02/24 08:53 Labs: Laboratory Results - last 24 hr 03/01/24 03/01/24 03/02/24 12:20 18:34 08:53 MCV 74.4 L 73.8 L MCH 22.0 L 22.6 L MCHC 29.6 L 30.6 L RDW 18.8 H 18.8 H Plt Count 316 D 301 MPV 9.5 8.9 L Immature Gran % (Auto) 0.3 0.6 H Neut % (Auto) 60.7 63.4 Lymph % (Auto) 30.0 25.0 Maries % (Auto) 7.5 9.6 Eos % (Auto) 1.0 0.9 Baso % (Auto) 0.5 0.5 Lymph # (Auto) 3.5 3.5 Maries # (Auto) 0.9 1.3 H Eos # (Auto) 0.1 0.1 Baso # (Auto) 0.1 0.1 Abs Immat Gran (auto) 0.04 H 0.08 H Absolute Neuts (auto) 7.0 8.8 H Absolute Nucleated RBC 0.000 0.000 Nucleated RBC % (auto) 0.0 0.0 APTT 31.5 Anion Gap 16 14 Estim Creat Clear Calc 77.5 70.3 Estimated GFR > 60 > 60 Random Glucose 95 110 Calcium 9.2 9.1 Total Bilirubin 0.3 0.6 Direct Bilirubin 0.2 AST 39 H 40 H ALT 14 14 Alkaline Phosphatase 81 87 Total Creatine Kinase 742 H Troponin I High Sens 3.6 Total Protein 7.3 6.8 Albumin 4.0 3.8 Lipase 14 8 Urine Color Yellow Urine Appearance Clear Urine pH 7.5 Ur Specific [employer] 1.010 Urine Protein Negative Urine Glucose (UA) Negative Urine Ketones Negative Urine Blood Negative Urine Nitrite Negative Ur Leukocyte Esterase Negative Urine RBC Urine WBC Ur Squamous Epith Cells Urine Bacteria Hyaline Casts 03/02/24 09:10 MCV MCH MCHC RDW Plt Count MPV Immature Gran % (Auto) Neut % (Auto) Lymph % (Auto) Maries % (Auto) Eos % (Auto) Baso % (Auto) Lymph # (Auto) Maries # (Auto) Eos # (Auto) Baso # (Auto) Abs Immat Gran (auto) Absolute Neuts (auto) Absolute Nucleated RBC Nucleated RBC % (auto) APTT Anion Gap Estim Creat Clear Calc Estimated GFR Random Glucose Calcium Total Bilirubin Direct Bilirubin AST ALT Alkaline Phosphatase Total Creatine Kinase Troponin I High Sens Total Protein Albumin Lipase Urine Color Dark Yellow Urine Appearance Cloudy Urine pH 6.5 Ur Specific [employer] 1.020 Urine Protein 100 (2+) H Urine Glucose (UA) Negative Urine Ketones Trace Urine Blood Large (3+) H Urine Nitrite Negative Ur Leukocyte Esterase Moderate (2+) H Urine RBC >20 H Urine WBC 11-20 H Ur Squamous Epith Cells 3-5 Urine Bacteria 3+ Hyaline Casts 0-2 Imaging Radiologist's Impressions: Impressions Head CT 03/01/24 12:24 IMPRESSION: 1. No acute intracranial process seen. 2. Age-related cerebral volume loss. Electronically signed by: Kamron Oh MD 03/01/2024 02:13 PM EST RP Hip/Pelvis X-Ray 03/01/24 12:50 IMPRESSION: Hypoexpanded lungs without acute process. There is a left hip dislocation with missing left femoral stem ball, unchanged to 09/28/2023. No fracture seen involving the left hip. Electronically signed by: Kamron Oh MD 03/01/2024 01:13 PM EST RP Chest X-Ray 03/01/24 12:51 IMPRESSION: Hypoexpanded lungs without acute process. There is a left hip dislocation with missing left femoral stem ball, unchanged to 09/28/2023. No fracture seen involving the left hip. Electronically signed by: Kamron Oh MD 03/01/2024 01:13 PM EST RP Assessment and Plan (1) Catheter-associated urinary tract infection: Status: Acute (2) Elevated CPK: Status: Acute (3) Aggressive behavior: Status: Acute (4) Obesity (BMI 30-39.9): Status: Acute Plan Patient is a 78-year-old male with a past medical history significant for an incisional hernia, mild intermittent asthma, anxiety, constipation, paroxysmal AFib, obstructive sleep apnea, BPH, GERD, iron-deficiency anemia, PVD, HTN, gout, CKD 3, type 2 diabetes and dementia who reported to the ED on 03/01/2024 from [facility] with concerns for taking too much Ativan . He was seen by behavioral health this morning who recommended the patient be tapered from Ativan and Sakina psych eval due to the need for chemical restraints for 14 hours, including Haldol 10 mg, Benadryl 50 mg IM, and Zyprexa 10 mg IM x2. He was shouting and not redirectable. He also did have urinary retention and a Cesar catheter was placed without any drainage the following day. Catheter has since been removed and retention resolved. Urine now showing possible CAUTI and elevated CPK with possible rhabdo. CAUTI - catheter placed in ED due to urinary retention, no longer needed. no sepsis - UA prior to catheter placement was negative - UA post catheter placement with blood (likely traumatic from catheter), WBCs, and 3+bacteria, cx pending - given ceftriaxone in ED, we will continue pending culture - no sepsis, leukocytosis and tachycardia likely reactive due to agitation Elevated CPK - 742 - likely related to agitation - given 2 L IV fluids in ED - continue fluids LR 75ml/hr - monitor CPK and BMP Agitation - likely related to overuse of Ativan - head CT/chest x-ray negative - psych eval needed Mild intermittent asthma without exacerbation Paroxysmal AFib - continue Eliquis 5 mg BID - continue metoprolol 12.5 mg BID [place]- no CPAP BPH - continue tamsulosin and Gemtesa Iron-deficiency anemia - H&H stable HTN - continue metoprolol CKD 3 - creatinine stable Type 2 diabetes - no home meds - monitor POCs Mood disorder - continue Effexor and lorazepam GERD - continue pantoprazole DNR/DNI VTE prophy: elitito Pt with catheter associated UTI secondary to urinary retention complicated by possible rhabdomyolysis and aggressive behavior requiring restraints, requiring admission for at least 2 midnights stay for IV antibiotics, IV fluids and monitoring while awaiting a psychiatric evaluation. Quality Stroke Does the patient have a stroke diagnosis?: No VTE Prior VTE?: Yes VTE Risk Level:: Medical - moderate - high VTE Device Contraindication: Treatment Not Indicated VTE Drug Contraindication: N/A - Med Ordered
[2024-03-02] MEDS: Morphine Sulfate 2 MG/ML CARTRIDGE SUBCUT (12:45)
[2024-03-02] MEDS: oxyCODONE HCl Immed Release 5 MG TABLET PO (13:21)
--- NOTE | 2024-03-02 14:05 | PC.NURSE ---
Pt. increasingly restless, keeps attempting to climb OOB over siderails. PRN Ativan administered
[2024-03-02] MEDS: LORazepam 1 MG TABLET PO (14:10)
[2024-03-02] MEDS: Omeprazole 20 MG CAPSULE.DR PO (14:10)
[2024-03-02] MEDS: Gabapentin 300 MG CAPSULE PO ×2 (14:10→22:29)
--- NOTE | 2024-03-02 14:48 | PC.NURSE ---
Pt. with minimal effect from PRN Ativan. Continues to shout and attempt to throw legs over siderails of hospital stretcher. Provider notified and one-time Zyprexa ordered and administered.
[2024-03-02] MEDS: OLANZapine 5 MG TABLET PO (14:50)
[2024-03-02] MEDS: Lactated Ringers 1,000 ML 75 ML IVCONT (14:52)
--- NOTE | 2024-03-02 15:06 | MHC.EDTECH ---
this tech assumed care of pt at 1500, at this time the pt appeared restless however johnson repositioned to his right side and appears to be comfortable and resting quitey. Pt asked where his wallet was and I educated the pt that EMS did not bring his belongings with him when he was brought to the hospital
--- NOTE | 2024-03-02 15:29 | PC.NURSE ---
Pt. is resting comfortably at this time s/p administration of PO Zyprexa. Plan of care ongoing
[2024-03-02 16:33] LABS: Glucose, Whole Blood 90 mg/dL (60-115)
[2024-03-02 20:21] LABS: Glucose, Whole Blood 86 mg/dL (60-115)
[2024-03-02] MEDS: Docusate Sodium 100 MG CAPSULE PO (22:29)
[2024-03-02] MEDS: Divalproex Sodium 500 MG TABLET.DR PO (22:29)
[2024-03-03] MEDS: oxyCODONE HCl Immed Release 5 MG TABLET PO ×2 (02:23→17:04)
[2024-03-03 02:45] VITALS: BP 116/64; PULSE 63; RESP 17; TEMP 36.1; O2SAT 98
[2024-03-03] MEDS: Lactated Ringers 1,000 ML 75 ML IVCONT ×2 (03:17→15:43)
[2024-03-03] MEDS: Omeprazole 20 MG CAPSULE.DR PO (05:42)
[2024-03-03 07:32] LABS: MANUAL DIFF FLAG NO
[2024-03-03 07:37] LABS: Basophils Absolute Auto 0.1 X10*3/uL (0.0-0.2); Basophils Percent Auto 0.6 % (0-2); Eosinophils Absolute Auto 0.3 X10*3/uL (0.0-0.4); Eosinophils Percent Auto 2.4 % (0-4); Hematocrit 30.5 % (42.0-52.0); Imm Gran Abs Auto 0.06 X10*3/uL (0.00-0.03); Imm Gran Pct Auto 0.5 % (0.0-0.4); Lymphocytes Absolute Auto 2.8 X10*3/uL (1.2-4.9); Lymphocytes Percent Auto 22.6 % (20-40); Mean Corpuscular HGB Conc 29.5 g/dl (31.0-36.0); Mean Corpuscular Hemoglobin 22.2 pg (27.0-33.0); Mean Corpuscular Volume 75.3 fL (80.0-98.0); Mean Platelet Volume 9.8 fL (9.4-12.4); Monocytes Absolute Auto 1.1 X10*3/uL (0.1-1.2); Monocytes Percent Auto 8.9 % (2-11); Neutrophils Absolute Auto 8.1 x10*3/uL (2.0-8.3); Platelet Count 283 X10*3/uL (160-400); Red Blood Count 4.05 X10*6/uL (4.60-5.80); Red Cell Distribution Width 18.7 % (11.0-16.0); White Blood Count 12.5 X10*3/uL (4.8-10.8)
[2024-03-03 07:38] LABS: Glucose, Whole Blood 84 mg/dL (60-115)
[2024-03-03 07:55] LABS: Anion Gap 15 (12-20); Blood Urea Nitrogen 13 mg/dL (9-16); Calcium 8.4 mg/dL (8.4-10.2); Carbon Dioxide 20 mmol/L (22-29); Chloride 111 mmol/L (96-108); Creatinine Clr Calc Pharmacy 95.1; Estimated Glomerular Filt Rate > 60; Glucose Random 79 mg/dL (60-115); Sodium 142 mmol/L (135-145)
--- NOTE | 2024-03-03 08:48 | P.PNIM_ITS ---
Subjective Subjective Date of Service: 03/03/24 <Nadia Manzanares PA-C - Last Filed: 03/03/24 11:25> 03/04/24 <Lopez Kaur MD - Last Filed: 03/04/24 11:15> Interval History: no overnight events with behavior. pt tired, but more responsive to questions. minimal oral intake. denies abd pain, dysuria, chest pain, SOB, nausea or vomiting. <Nadia Manzanares PA-C - Last Filed: 03/03/24 11:25> Review of Systems difficult to obtain due to drowsiness and cognitive status <Nadia Manzanares PA-C - Last Filed: 03/03/24 11:25> Constitutional Constitutional: Denies headache(s) <Nadia Manzanares PA-C - Last Filed: 03/03/24 11:25> ENT Ears, Nose, Mouth, and Throat: Denies headache(s) <Nadia Manzanares PA-C - Last Filed: 03/03/24 11:25> Cardiovascular Cardiovascular: Denies chest pain, Denies rapid heart rate, Denies leg edema and Denies dyspnea <Nadia Manzanares PA-C - Last Filed: 03/03/24 11:25> Respiratory Respiratory: Denies cough and Denies dyspnea <Nadia Manzanares PA-C - Last Filed: 03/03/24 11:25> Gastrointestinal Gastrointestinal: Denies nausea and Denies vomiting <Nadia Manzanares PA-C - Last Filed: 03/03/24 11:25> Genitourinary Genitourinary: Reports as per HPI <Nadia Manzanares PA-C - Last Filed: 03/03/24 11:25> Neurologic Neurologic: Denies headache(s) <ROYAL Parekh Last Filed: 03/03/24 11:25> Physical Exam 2 Vital Signs: Vital Signs: Last Vital Signs Temp 96.9 F 03/03/24 02:45 Pulse 63 03/03/24 02:45 Resp 17 03/03/24 02:45 BP 116/64 03/03/24 02:45 Pulse Ox 98 03/03/24 02:45 O2 Del Method Room Air 03/03/24 02:45 BMI result Body Mass Index 30.7 <ROYAL Parekh Last Filed: 03/03/24 11:25> General: drowsy, difficult to get pt to respond as he keeps falling asleep, no acute distress Resp: CTA bilaterally CVS: S1, S2, RRR GI: +BS, NT, no distention Skin: Warm, dry Extremities: No edema Psych: Appropriate affect <ROYAL Parekh Last Filed: 03/03/24 11:25> Objective Data Active Medications Acetaminophen (Acetaminophen 325 Mg Tablet) 650 mg PO Q6H PRN PRN Reason: Pain, Mild (Pain Scale 1-3), fever or headache Apixaban (Apixaban 5 Mg Tablet) 5 mg PO BID [facility] Last Admin: 03/02/24 22:28 Dose: 5 mg Documented By: ELIZABETH Artificial Tears (Artificial Tears 15 Ml Drops) 1 drop EYE-BOTH BID [facility] Last Admin: 03/02/24 22:29 Dose: Not Given Documented By: ELIZABETH Non-Admin Reason: Patient Refused Calcium Carbonate (Calcium Carbonate 750 Mg Tab.Chew) 750 mg PO Q4H PRN PRN Reason: Heartburn Ceftriaxone Sodium (Ceftriaxone Sodium 1 Gm Vial) 1 gm IVPUSH Q24H [facility] Divalproex Sodium (Divalproex Sodium 500 Mg Tablet.Dr) 500 mg PO BEDTIME [facility] Last Admin: 03/02/24 22:29 Dose: 500 mg Documented By: ELIZABETH Docusate Sodium (Docusate Sodium 100 Mg Capsule) 100 mg PO BID [facility] Last Admin: 03/02/24 22:29 Dose: 100 mg Documented By: ELIZABETH Fluticasone Propionate (Fluticasone Propionate Nasal 16 Gm [place]) 1 spray NOSTRIL-B BID [facility] Last Admin: 03/02/24 22:29 Dose: Not Given Documented By: ELIZABETH Non-Admin Reason: Patient Refused Gabapentin (Gabapentin 300 Mg Capsule) 300 mg PO TID [facility] Last Admin: 03/02/24 22:29 Dose: 300 mg Documented By: ELIZABETH Lactated Ringer's (Lr) 1,000 mls @ 75 mls/hr IVCONT .[id number] [facility] Last Admin: 03/03/24 03:17 Dose: 75 mls/hr Documented By: ELIZABETH Loratadine (Loratadine 10 Mg Tablet) 10 mg PO DAILY [facility] Lorazepam (Lorazepam 1 Mg Tablet) 1 mg PO BID PRN PRN Reason: anxiety Last Admin: 03/02/24 14:10 Dose: 1 mg Documented By: ADRIAN Magnesium Hydroxide (Milk Of Magnesia 30 Ml Oral.Susp) 30 ml PO DAILY PRN PRN Reason: Constipation Melatonin (Melatonin 3 Mg Tablet) 6 mg PO BEDTIME PRN PRN Reason: Insomnia Metoprolol Tartrate (Metoprolol Tartrate 12.5 Mg Halftab) 12.5 mg PO BID [facility]; Protocol Last Admin: 03/02/24 22:30 Dose: 12.5 mg Documented By: ELIZABETH Comments: 143/86 HR-65 Morphine Sulfate (Morphine Sulfate 2 Mg/Ml Cartridge) 2 mg SUBCUT Q4H PRN; Protocol PRN Reason: Pain, Severe (Pain Scale 7-10) Last Admin: 03/02/24 12:45 Dose: 2 mg Documented By: ADRIAN Non-Formulary Medication (Vibegron [Gemtesa]) 75 mg PO DAILY [facility] Omeprazole (Omeprazole 20 Mg Capsule.Dr) 20 mg PO DAILY@0630 [facility] Last Admin: 03/03/24 05:42 Dose: 20 mg Documented By: ELIZABETH Ondansetron HCl (Ondansetron Hcl 4 Mg/2 Ml Vial) 4 mg IVPUSH Q8H PRN PRN Reason: Nausea and Vomiting Oxycodone HCl (Oxycodone Hcl Immed Release 5 Mg Tablet) 5 mg PO BID PRN PRN Reason: Pain, Moderate(Pain Scale 4-6) Last Admin: 03/03/24 02:23 Dose: 5 mg Documented By: ELIZABETH Simethicone (Simethicone 80 Mg Tab.Chew) 80 mg PO Q8H PRN PRN Reason: Indigestion Sodium Chloride (0.9 % Sodium Chloride Flush 3 Ml Syringe) 3 ml IVFLUSH QSHIFT [facility] Last Admin: 03/03/24 07:08 Dose: Not Given Documented By: CIPRIANO Non-Admin Reason: IV Running Tamsulosin HCl (Tamsulosin Hcl 0.4 Mg Capsule) 0.4 mg PO DAILY [facility] Venlafaxine HCl (Venlafaxine Hcl Er 37.5 Mg Cap.Er.24h) 37.5 mg PO DAILY [facility] Venlafaxine HCl (Venlafaxine Hcl Er 150 Mg Cap.Er.24h) 150 mg PO DAILY [facility] <Nadia Manzanares PA-C - Last Filed: 03/03/24 11:25> Labs CBC & Chem 7: 03/04/24 05:49 03/04/24 05:49 <Nadia Manzanares PA-C - Last Filed: 03/03/24 11:25> Labs: Laboratory Results - last 24 hr 03/02/24 03/02/24 03/02/24 08:53 09:10 16:27 MCV 73.8 L MCH 22.6 L MCHC 30.6 L RDW 18.8 H Plt Count 301 MPV 8.9 L Immature Gran % (Auto) 0.6 H Neut % (Auto) 63.4 Lymph % (Auto) 25.0 [place] % (Auto) 9.6 Eos % (Auto) 0.9 Baso % (Auto) 0.5 Lymph # (Auto) 3.5 [place] # (Auto) 1.3 H Eos # (Auto) 0.1 Baso # (Auto) 0.1 Abs Immat Gran (auto) 0.08 H Absolute Neuts (auto) 8.8 H Absolute Nucleated RBC 0.000 Nucleated RBC % (auto) 0.0 Anion Gap 14 Estim Creat Clear Calc 70.3 Estimated GFR > 60 POC Glucose 90 Random Glucose 110 Calcium 9.1 Total Bilirubin 0.6 Direct Bilirubin 0.2 AST 40 H ALT 14 Alkaline Phosphatase 87 Total Creatine Kinase 742 H Total Protein 6.8 Albumin 3.8 Lipase 8 Urine Color Dark Yellow Urine Appearance Cloudy Urine pH 6.5 Ur Specific Jal 1.020 Urine Protein 100 (2+) H Urine Glucose (UA) Negative Urine Ketones Trace Urine Blood Large (3+) H Urine Nitrite Negative Ur Leukocyte Esterase Moderate (2+) H Urine RBC >20 H Urine WBC 11-20 H Ur Squamous Epith Cells 3-5 Urine Bacteria 3+ Hyaline Casts 0-2 03/02/24 03/03/24 03/03/24 20:15 06:37 07:33 MCV 75.3 L MCH 22.2 L MCHC 29.5 L RDW 18.7 H Plt Count 283 MPV 9.8 Immature Gran % (Auto) 0.5 H Neut % (Auto) 65.0 Lymph % (Auto) 22.6 [place] % (Auto) 8.9 Eos % (Auto) 2.4 Baso % (Auto) 0.6 Lymph # (Auto) 2.8 [place] # (Auto) 1.1 Eos # (Auto) 0.3 Baso # (Auto) 0.1 Abs Immat Gran (auto) 0.06 H Absolute Neuts (auto) 8.1 Absolute Nucleated RBC 0.000 Nucleated RBC % (auto) 0.0 Anion Gap 15 Estim Creat Clear Calc 95.1 Estimated GFR > 60 POC Glucose 86 84 Random Glucose 79 Calcium 8.4 D Total Bilirubin Direct Bilirubin AST ALT Alkaline Phosphatase Total Creatine Kinase 340 H Total Protein Albumin Lipase Urine Color Urine Appearance Urine pH Ur Specific Jal Urine Protein Urine Glucose (UA) Urine Ketones Urine Blood Urine Nitrite Ur Leukocyte Esterase Urine RBC Urine WBC Ur Squamous Epith Cells Urine Bacteria Hyaline Casts <Nadia Manzanares PA-C - Last Filed: 03/03/24 11:25> Assessment and Plan (1) UTI (urinary tract infection): Status: Acute <Nadia Manzanares PA-C - Last Filed: 03/03/24 11:25> (2) Elevated CPK: Status: Acute <Nadia Manzanares PA-C - Last Filed: 03/03/24 11:25> (3) Aggressive behavior: Status: Acute <ROYAL Parekh Last Filed: 03/03/24 11:25> Assessment and Plan: 78-year-old male with a past medical history significant for an incisional hernia, mild intermittent asthma, anxiety, constipation, paroxysmal AFib, obstructive sleep apnea, BPH, GERD, iron-deficiency anemia, PVD, HTN, gout, CKD 3, type 2 diabetes and dementia, came to ED with aggressive behavior after taking 6mg of ativan. found to have urinary retention and daily placed. repeat urine suspicious for UTI, daily no longer present and pt incontinent of urine and feces. mild to moderate elevation of CPK in ED, suspicious for possible rhabdo. UTI - improving, pt no longer with pain, not CAUTI as catheter was not placed for 48 hours - urine culture negative but given +bacteria in UA and elevated WBC will continue to treat - CBC improving - continue ceftriaxone elevated CPK - improving, not likely rhabdo - CPK now 340, was 742 - continue IV fluids, pt has poor PO intake - monitor BMP agitation/aggressive behavior - improved - no overnight events requiring any medications - continue to monitor for improvement - will evaluate pt once he is more alert to determine if CARE team eval is needed Mild intermittent asthma without exacerbation Paroxysmal AFib - continue Eliquis 5 mg BID - continue metoprolol 12.5 mg BID [place]- no CPAP BPH - continue tamsulosin and Gemtesa Iron-deficiency anemia - mild decrease in H+H from 10.1/13.8 yesterday to 9.0/12.5 today, likely related to hematuria and dilutional with IV fluids - continue to follow CBC HTN - continue metoprolol CKD 3 - creatinine stable Type 2 diabetes - no home meds - monitor POCs Mood disorder - continue Effexor and lorazepam GERD - continue pantoprazole DNR/DNI VTE prophy: eliquis Pt with catheter associated UTI secondary to urinary retention complicated by possible rhabdomyolysis and aggressive behavior, which is improving but will require ongoing admission for IV abx and monitoring to determine need for psych evaluation. <Nadia Manzanares PA-C - Last Filed: 03/03/24 11:25> Quality Stroke Does the patient have a stroke diagnosis?: No <Nadia Manzanares PA-C - Last Filed: 03/03/24 11:25> VTE Prior VTE?: Yes <Nadia Manzanares PA-C - Last Filed: 03/03/24 11:25> VTE Risk Level:: Medical - moderate - high <Nadia Manzanares PA-C - Last Filed: 03/03/24 11:25> VTE Device Contraindication: Treatment Not Indicated <Nadia Manzanares PA-C - Last Filed: 03/03/24 11:25> VTE Drug Contraindication: N/A - Med Ordered <Nadia Manzanares PA-C - Last Filed: 03/03/24 11:25>
[2024-03-03 09:18] VITALS: BP 110/62; PULSE 65; RESP 20; TEMP 36.4; O2SAT 93
[2024-03-03] MEDS: Venlafaxine HCl ER 37.5 MG CAP.ER.24H PO (09:38)
[2024-03-03] MEDS: Venlafaxine HCl ER 150 MG CAP.ER.24H PO (09:38)
[2024-03-03] MEDS: Tamsulosin HCL 0.4 MG CAPSULE PO (09:38)
[2024-03-03] MEDS: Docusate Sodium 100 MG CAPSULE PO ×2 (09:38→20:26)
[2024-03-03] MEDS: Gabapentin 300 MG CAPSULE PO ×2 (09:38→20:26)
[2024-03-03] MEDS: Metoprolol Tartrate 12.5 MG HALFTAB PO ×2 (09:38→20:26)
[2024-03-03] MEDS: Loratadine 10 MG TABLET PO (09:38)
[2024-03-03] MEDS: Apixaban 5 MG TABLET PO ×2 (09:38→20:26)
--- NOTE | 2024-03-03 10:53 | PC.NURSE ---
pt requesting upper dentures for breakfast but this RN unable to find with the rest of patient belongings. Admission belonging list checked and was stated pt came to hospital with full lower dentures only. Pt is from [facility] and they confirmed upper dentures are still in patients room
[2024-03-03] MEDS: cefTRIAXone sodium 1 GM VIAL IVPUSH (11:08)
[2024-03-03] MEDS: Artificial Tears 15 ML DROPS 1 DROP EYE-BOTH ×2 (11:08→20:31)
[2024-03-03] MEDS: Fluticasone Propionate Nasal 16 GM SPRAY 1 SPRAY NOSTRIL-B (11:08)
[2024-03-03 11:32] LABS: Glucose, Whole Blood 85 mg/dL (60-115)
--- NOTE | 2024-03-03 12:09 | MHC.CM.PN ---
[facility] RETURN WHEN DCD
[2024-03-03 15:13] VITALS: BP 98/50; PULSE 72; RESP 18; TEMP 36.8; O2SAT 94
[2024-03-03 16:14] LABS: Glucose, Whole Blood 97 mg/dL (60-115)
[2024-03-03] MEDS: Calcium Carbonate 750 MG TAB.CHEW PO (16:38)
[2024-03-03 19:18] VITALS: BP 100/57; PULSE 83; RESP 18; TEMP 37.1; O2SAT 95
[2024-03-03] MEDS: Divalproex Sodium 500 MG TABLET.DR PO (20:26)
[2024-03-03 20:28] LABS: Glucose, Whole Blood 83 mg/dL (60-115)
[2024-03-04 03:24] VITALS: BP 121/61; PULSE 63; RESP 16; TEMP 36.8; O2SAT 95
[2024-03-04] MEDS: oxyCODONE HCl Immed Release 5 MG TABLET PO (03:26)
[2024-03-04] MEDS: Lactated Ringers 1,000 ML 75 ML IVCONT (05:12)
[2024-03-04] MEDS: Omeprazole 20 MG CAPSULE.DR PO (05:33)
[2024-03-04 06:35] LABS: MANUAL DIFF FLAG NO
[2024-03-04 07:07] LABS: Basophils Absolute Auto 0.1 X10*3/uL (0.0-0.2); Basophils Percent Auto 0.5 % (0-2); Eosinophils Absolute Auto 0.3 X10*3/uL (0.0-0.4); Eosinophils Percent Auto 2.3 % (0-4); Hemoglobin 8.4 g/dl (14.0-18.0); Imm Gran Abs Auto 0.08 X10*3/uL (0.00-0.03); Imm Gran Pct Auto 0.6 % (0.0-0.4); Lymphocytes Absolute Auto 4.2 X10*3/uL (1.2-4.9); Lymphocytes Percent Auto 32.2 % (20-40); Mean Corpuscular Hemoglobin 22.5 pg (27.0-33.0); Mean Corpuscular Volume 74.9 fL (80.0-98.0); Mean Platelet Volume 9.6 fL (9.4-12.4); Monocytes Percent Auto 7.5 % (2-11); Neutrophils Absolute Auto 7.3 x10*3/uL (2.0-8.3); Neutrophils Percent Auto 56.9 % (45-73); Platelet Count 254 X10*3/uL (160-400); Red Blood Count 3.74 X10*6/uL (4.60-5.80); Red Cell Distribution Width 18.8 % (11.0-16.0); White Blood Count 12.9 X10*3/uL (4.8-10.8)
[2024-03-04 07:11] LABS: Anion Gap 12 (12-20); Blood Urea Nitrogen 15 mg/dL (9-16); Calcium 8.4 mg/dL (8.4-10.2); Carbon Dioxide 20 mmol/L (22-29); Chloride 111 mmol/L (96-108); Creatinine Clr Calc Pharmacy 89.3; Estimated Glomerular Filt Rate > 60; Glucose Random 101 mg/dL (60-115); Potassium 3.8 mmol/L (3.3-5.1); Sodium 139 mmol/L (135-145)
[2024-03-04 07:18] VITALS: BP 100/59; PULSE 64; RESP 14; TEMP 36.8; O2SAT 95
[2024-03-04 07:32] LABS: Glucose, Whole Blood 85 mg/dL (60-115)
[2024-03-04] MEDS: Gabapentin 300 MG CAPSULE PO ×2 (07:45→16:02)
[2024-03-04] MEDS: Metoprolol Tartrate 12.5 MG HALFTAB PO (07:45)
[2024-03-04] MEDS: Tamsulosin HCL 0.4 MG CAPSULE PO (07:46)
[2024-03-04] MEDS: Apixaban 5 MG TABLET PO (07:46)
[2024-03-04] MEDS: Venlafaxine HCl ER 150 MG CAP.ER.24H PO (07:46)
[2024-03-04] MEDS: Venlafaxine HCl ER 37.5 MG CAP.ER.24H PO (07:46)
[2024-03-04] MEDS: Loratadine 10 MG TABLET PO (07:47)
[2024-03-04] MEDS: Docusate Sodium 100 MG CAPSULE PO (07:52)
[2024-03-04] MEDS: Artificial Tears 15 ML DROPS 1 DROP EYE-BOTH (08:02)
[2024-03-04] MEDS: Acetaminophen 325 MG TABLET 650 MG PO (09:36)
--- NOTE | 2024-03-04 11:15 | P.PNIM_ITS ---
Subjective Subjective Date of Service: 03/04/24 Interval History: f/u on delirium uti he's more alert and appear to be his baseline Physical Exam 2 Vital Signs: Vital Signs: Last Vital Signs Temp 98.2 F 03/04/24 07:18 Pulse 64 03/04/24 07:18 Resp 14 03/04/24 07:18 BP 100/59 L 03/04/24 07:18 Pulse Ox 95 03/04/24 07:18 O2 Del Method Room Air 03/04/24 07:18 BMI result Body Mass Index 30.7 Objective Data Active Medications Acetaminophen (Acetaminophen 325 Mg Tablet) 650 mg PO Q6H PRN PRN Reason: Pain, Mild (Pain Scale 1-3), fever or headache Last Admin: 03/04/24 09:36 Dose: 650 mg Documented By: YUE Apixaban (Apixaban 5 Mg Tablet) 5 mg PO BID [facility]PL[facility]ED BY [facility] Last Admin: 03/04/24 07:46 Dose: 5 mg Documented By: YUE Artificial Tears (Artificial Tears 15 Ml Drops) 1 drop EYE-BOTH BID [facility]PL[facility]ED BY [facility] Last Admin: 03/04/24 08:02 Dose: 1 drop Documented By: YUE Calcium Carbonate (Calcium Carbonate 750 Mg Tab.Chew) 750 mg PO Q4H PRN PRN Reason: Heartburn Last Admin: 03/03/24 16:38 Dose: 750 mg Documented By: CIPRIANO Ceftriaxone Sodium (Ceftriaxone Sodium 1 Gm Vial) 1 gm IVPUSH Q24H REPLACED BY [facility] Last Admin: 03/03/24 11:08 Dose: 1 gm Documented By: CIPRIANO Divalproex Sodium (Divalproex Sodium 500 Mg Tablet.) 500 mg PO BEDTIME REPLACED BY [facility] Last Admin: 03/03/24 20:26 Dose: 500 mg Documented By: ELIZABETH Docusate Sodium (Docusate Sodium 100 Mg Capsule) 100 mg PO BID [facility] Last Admin: 03/04/24 07:52 Dose: 100 mg Documented By: YUE Fluticasone Propionate (Fluticasone Propionate Nasal 16 Gm [place]) 1 spray NOSTRIL-B BID [facility] Last Admin: 03/04/24 08:05 Dose: Not Given Documented By: YUE Non-Admin Reason: Patient Refused Gabapentin (Gabapentin 300 Mg Capsule) 300 mg PO TID [facility] Last Admin: 03/04/24 07:45 Dose: 300 mg Documented By: YUE Lactated Ringer's (Lr) 1,000 mls @ 75 mls/hr IVCONT .[id number] REPL[facility]ED [facility] Last Admin: 03/04/24 05:12 Dose: 75 mls/hr Documented By: ELIZABETH Loratadine (Loratadine 10 Mg Tablet) 10 mg PO DAILY [facility] Last Admin: 03/04/24 07:47 Dose: 10 mg Documented By: YUE Lorazepam (Lorazepam 1 Mg Tablet) 1 mg PO BID PRN PRN Reason: anxiety Last Admin: 03/02/24 14:10 Dose: 1 mg Documented By: ADRIAN Magnesium Hydroxide (Milk Of Magnesia 30 Ml Oral.Susp) 30 ml PO DAILY PRN PRN Reason: Constipation Melatonin (Melatonin 3 Mg Tablet) 6 mg PO BEDTIME PRN PRN Reason: Insomnia Metoprolol Tartrate (Metoprolol Tartrate 12.5 Mg Halftab) 12.5 mg PO BID [facility]; Protocol Last Admin: 03/04/24 07:45 Dose: 12.5 mg Documented By: YUE Morphine Sulfate (Morphine Sulfate 2 Mg/Ml Cartridge) 2 mg SUBCUT Q4H PRN; Protocol PRN Reason: Pain, Severe (Pain Scale 7-10) Last Admin: 03/02/24 12:45 Dose: 2 mg Documented By: ADRIAN Non-Formulary Medication (Vibegron [Gemtesa]) 75 mg PO DAILY [facility] Omeprazole (Omeprazole 20 Mg Capsule.Dr) 20 mg PO DAILY@0630 [facility] Last Admin: 03/04/24 05:33 Dose: 20 mg Documented By: ELIZABETH Ondansetron HCl (Ondansetron Hcl 4 Mg/2 Ml Vial) 4 mg IVPUSH Q8H PRN PRN Reason: Nausea and Vomiting Oxycodone HCl (Oxycodone Hcl Immed Release 5 Mg Tablet) 5 mg PO BID PRN PRN Reason: Pain, Moderate(Pain Scale 4-6) Last Admin: 03/04/24 03:26 Dose: 5 mg Documented By: ELIZABETH Simethicone (Simethicone 80 Mg Tab.Chew) 80 mg PO Q8H PRN PRN Reason: Indigestion Sodium Chloride (0.9 % Sodium Chloride Flush 3 Ml Syringe) 3 ml IVFLUSH QSHIFT REPLACED BY [facility] Last Admin: 03/04/24 07:56 Dose: Not Given Documented By: YUE Non-Admin Reason: IV Running Tamsulosin HCl (Tamsulosin Hcl 0.4 Mg Capsule) 0.4 mg PO DAILY [facility] Last Admin: 03/04/24 07:46 Dose: 0.4 mg Documented By: YUE Venlafaxine HCl (Venlafaxine Hcl Er 37.5 Mg Cap.Er.24h) 37.5 mg PO DAILY [facility]PL[facility] Last Admin: 03/04/24 07:46 Dose: 37.5 mg Documented By: YUE Venlafaxine HCl (Venlafaxine Hcl Er 150 Mg Cap.Er.24h) 150 mg PO DAILY [facility]PL[facility] Last Admin: 03/04/24 07:46 Dose: 150 mg Documented By: YUE Labs 03/04/24 05:49 03/04/24 05:49 Labs: Laboratory Results - last 24 hr 03/03/24 03/03/24 03/03/24 11:08 16:11 20:19 MCV MCH MCHC RDW Plt Count MPV Immature Gran % (Auto) Neut % (Auto) Lymph % (Auto) [place] % (Auto) Eos % (Auto) Baso % (Auto) Lymph # (Auto) [place] # (Auto) Eos # (Auto) Baso # (Auto) Abs Immat Gran (auto) Absolute Neuts (auto) Absolute Nucleated RBC Nucleated RBC % (auto) Anion Gap Estim Creat Clear Calc Estimated GFR POC Glucose 85 97 83 Random Glucose Calcium 03/04/24 03/04/24 05:49 07:21 MCV 74.9 L MCH 22.5 L MCHC 30.0 L RDW 18.8 H Plt Count 254 MPV 9.6 Immature Gran % (Auto) 0.6 H Neut % (Auto) 56.9 Lymph % (Auto) 32.2 [place] % (Auto) 7.5 Eos % (Auto) 2.3 Baso % (Auto) 0.5 Lymph # (Auto) 4.2 [place] # (Auto) 1.0 Eos # (Auto) 0.3 Baso # (Auto) 0.1 Abs Immat Gran (auto) 0.08 H Absolute Neuts (auto) 7.3 Absolute Nucleated RBC 0.000 Nucleated RBC % (auto) 0.0 Anion Gap 12 Estim Creat Clear Calc 89.3 Estimated GFR > 60 POC Glucose 85 Random Glucose 101 Calcium 8.4 Microbiology Microbiology Results: Microbiology 03/02/24 Unknown Urine Culture - Final Urine clean catch - Clean Catch Midstream No growth. Assessment and Plan (1) UTI (urinary tract infection): Status: Acute (2) Elevated CPK: Status: Acute (3) Aggressive behavior: Status: Acute Plan 78-year-old male with a past medical history significant for an incisional hernia, mild intermittent asthma, anxiety, constipation, paroxysmal AFib, obstructive sleep apnea, BPH, GERD, iron-deficiency anemia, PVD, HTN, gout, CKD 3, type 2 diabetes and dementia, came to ED with aggressive behavior after taking 6mg of ativan. found to have urinary retention and daily placed. repeat urine suspicious for UTI, daily no longer present and pt incontinent of urine and feces. mild to moderate elevation of CPK in ED, suspicious for possible rhabdo. UTI - improving, pt no longer with pain, not CAUTI as catheter was not placed for 48 hours - urine culture negative but given +bacteria in UA and elevated WBC will continue to treat - CBC improving - continue ceftriaxone elevated CPK - improving, not likely rhabdo - CPK now 340, was 742 - continue IV fluids, pt has poor PO intake - monitor BMP agitation/aggressive behavior - improved - no overnight events requiring any medications - continue to monitor for improvement - will evaluate pt once he is more alert to determine if CARE team eval is needed Mild intermittent asthma without exacerbation Paroxysmal AFib - continue Eliquis 5 mg BID - continue metoprolol 12.5 mg BID [place]- no CPAP BPH - continue tamsulosin and Gemtesa Iron-deficiency anemia - mild decrease in H+H from 10.1/13.8 yesterday to 9.0/12.5 today, likely related to hematuria and dilutional with IV fluids - continue to follow CBC HTN - continue metoprolol CKD 3 - creatinine stable Type 2 diabetes - no home meds - monitor POCs Mood disorder - continue Effexor and lorazepam GERD - continue pantoprazole DNR/DNI VTE prophy: eliquis Quality Stroke Does the patient have a stroke diagnosis?: No VTE Prior VTE?: Yes VTE Risk Level:: Medical - moderate - high VTE Device Contraindication: Treatment Not Indicated VTE Drug Contraindication: N/A - Med Ordered
[2024-03-04 11:46] LABS: Glucose, Whole Blood 92 mg/dL (60-115)
--- NOTE | 2024-03-04 11:49 | P.DS_ITS ---
DS: Providers Provider Date of Service: 03/04/24 Date of admission: 03/02/24 13:15 Primary care physician: Unknown Physician Consults: 03/01/24 18:38 Consult to Care Team Stat Comment: Reason for consultation: Sent to the ED from nursing facility any on [address] for aggressive behav DS: Diagnosis Discharge Diagnosis (1) UTI (urinary tract infection): Status: Acute (2) Elevated CPK: Status: Acute (3) Aggressive behavior: Status: Acute DS: Summary Hospital Course Hospital Course: admission hpi Chief Complaint: took too much ativan Patient is a 78-year-old male with a past medical history significant for an incisional hernia, mild intermittent asthma, anxiety, constipation, paroxysmal AFib, obstructive sleep apnea, BPH GERD, iron-deficiency anemia, PVD, HTN, gout, CKD 3, type 2 diabetes and dementia who reported to the ED on 03/01/2024 from [facility] with concerns for taking too much Ativan . EMS reported he took 6mg lorazepam. He was seen by behavioral health this morning who recommended the patient be tapered from Ativan and Sakina psych eval due to the need for chemical restraints for 14 hours, including Haldol 10 mg, Benadryl 50 mg IM, and Zyprexa 10 mg IM x2. He was shouting and not redirectable. He also did have urinary retention and a Cesar catheter was placed yesterday with some challenge with multiple straight cath. Catheter has since been removed today and he is urinating without. The patient is complaining of lower abdominal and penile pain, likely due to trauma from the catheter placement and/or infection. History is very difficult to obtain however he does deny chest pain or shortness of breath. hospital course Hospital course: Patient was admitted for mangement of UTI associated with metabolic encephalopathy and confusion. He was treated with IV ceftriaxone for the uti, urine culture have been negative. He was initially very agiated and required sedative to required to calm him down. His urine culture has been negative, he is back at his baseline mental status and will transition to oral antibiotic with ceftin for a toal of 10 days Time Attestation Discharge Coordination Time (in mins): 45 Quality: Safe Use of Opioids Does Pt have an Active Cancer Diagnosis on the Problem List?: No Quality: Stroke Does the patient have a stroke diagnosis?: No Physical Exam Vital Signs: Vital Signs: Last Vital Signs Temp 98.2 F 03/04/24 07:18 Pulse 64 03/04/24 07:18 Resp 14 03/04/24 07:18 BP 100/59 L 03/04/24 07:18 Pulse Ox 95 03/04/24 07:18 O2 Del Method Room Air 03/04/24 07:18 BMI result Body Mass Index 30.7 DS: Data Data Completed and Pending Completed studies during hospitalization [Text1]: Procedures Insertion of Infusion Device into Superior Vena Cava, Percutaneous Approach (06/09/22) Release Peritoneum, Open Approach (06/09/22) Ultrasonography of Superior Vena Cava, Guidance (06/09/22) Labs on day of discharge: Laboratory Results - last 24 hr 03/03/24 03/03/24 03/04/24 16:11 20:19 05:49 WBC 12.9 H RBC 3.74 L Hgb 8.4 L Hct 28.0 L MCV 74.9 L MCH 22.5 L MCHC 30.0 L RDW 18.8 H Plt Count 254 MPV 9.6 Immature Gran % (Auto) 0.6 H Neut % (Auto) 56.9 Lymph % (Auto) 32.2 [place] % (Auto) 7.5 Eos % (Auto) 2.3 Baso % (Auto) 0.5 Lymph # (Auto) 4.2 [place] # (Auto) 1.0 Eos # (Auto) 0.3 Baso # (Auto) 0.1 Abs Immat Gran (auto) 0.08 H Absolute Neuts (auto) 7.3 Absolute Nucleated RBC 0.000 Nucleated RBC % (auto) 0.0 Sodium 139 Potassium 3.8 Chloride 111 H Carbon Dioxide 20 L Anion Gap 12 BUN 15 Creatinine 0.81 Estim Creat Clear Calc 89.3 Estimated GFR > 60 POC Glucose 97 83 Random Glucose 101 Calcium 8.4 03/04/24 03/04/24 07:21 11:42 WBC RBC Hgb Hct MCV MCH MCHC RDW Plt Count MPV Immature Gran % (Auto) Neut % (Auto) Lymph % (Auto) [place] % (Auto) Eos % (Auto) Baso % (Auto) Lymph # (Auto) [place] # (Auto) Eos # (Auto) Baso # (Auto) Abs Immat Gran (auto) Absolute Neuts (auto) Absolute Nucleated RBC Nucleated RBC % (auto) Sodium Potassium Chloride Carbon Dioxide Anion Gap BUN Creatinine Estim Creat Clear Calc Estimated GFR POC Glucose 85 92 Random Glucose Calcium Discharge Plan Discharge Anticipated Discharge Date/Time: 03/04/24 11:34 Patient Disposition: Xfer SNF Discharge Diagnosis: UTI, metabolic encephalopathy Referrals: Physician,Unknown J [Primary Care Provider] - 1 Week Discharge Medications: New cefuroxime axetil 250 mg tablet 250 mg PO BID 7 Days Qty: 14 0RF Continued (DME) BD Safety-Jackie Detachable Needl 3 mL 25 gauge x 5/8 syringe See Rx Instructions .ROUTE .MEDSUPPLY Qty: 100 12RF Rx Instructions: As directed diclofenac sodium 1 % Gel 4 g TOPICAL TID Rx Instructions: Apply topically to right hip. acetaminophen [Tylenol] 325 mg Tablet 650 mg PO Q4H PRN (Reason: Fever Or Pain) Rx Instructions: Discomfort/temp 101 or greater. magnesium hydroxide [Milk of Magnesia] 400 mg/5 mL Suspension 30 ml PO DAILY PRN (Reason: constipation, laxative, for no BM in 3 days) Rx Instructions: for no BM in 3 DAYS gabapentin 100 mg Capsule 300 mg PO TID polyethylene glycol 3350 [Miralax] 17 gram/dose Powder 17 g PO DAILY Rx Instructions: Mix with 4-6 Oz of fluid of choice. simethicone 80 mg Tablet,Chewable 80 mg PO Q8H PRN (Reason: Indigestion) melatonin 10 mg Tablet 10 mg PO BEDTIME polyvinyl alcohol [Artificial Tears (polyvin alc)] 1.4 % Drops 1 drp ophthalmic (eye) BID bisacodyl 10 mg Suppository 10 mg ND DAILY PRN (Reason: for no BM if MOM ineffective) Fleet Enema 19-7 gram/118 mL Enema 118 ml ND DAILY PRN (Reason: no BM & if bisacodyl supp ineffective) docusate sodium [Colace] 100 mg Capsule 100 mg PO BID loratadine 10 mg Tablet 10 mg PO DAILY lidocaine 4 % Adhesive Patch,Medicated 1 patch TOPICAL DAILY Rx Instructions: Apply to left hip topically one time a day for pain acetaminophen 650 mg Suppository 650 mg ND Q4H PRN (Reason: GENERAL DISCOMFORT/ TEMP 101 ND GREATER ) Rx Instructions: MAX DAILY DOSE NOT TO EXCEED 3GM DAY FROM ALL SOURCES naloxone [Narcan] 0.4 mg/mL Solution 0.4 mg SUBCUT Q3M PRN (Reason: overdose / sedation/ unresponsive) Rx Instructions: NTExceed 10 mg total dose/episode oxycodone 5 mg tablet 5 mg PO BID PRN (Reason: moderate pain) divalproex [Depakote] 500 mg tablet,delayed release (DR/EC) 500 mg PO BEDTIME pantoprazole 40 mg tablet,delayed release (DR/EC) 40 mg PO DAILY@0630 nystatin-triamcinolone 100,000-0.1 unit/g-% cream 1 appl topical BID PRN (Reason: Rash) fluticasone propionate 50 mcg/actuation spray,suspension 1 spray intranasal BID Gemtesa 75 mg tablet 75 mg PO DAILY metoprolol tartrate 25 mg Tablet 12.5 mg PO BID Qty: 45 0RF Protocol: Hold for SBP/HR < HOLD for SBP < : 120 HOLD for HR < : 60 Rx Instructions: hold for SBP < 120 and pulse < 60 apixaban 5 mg tablet 5 mg PO BID 90 Days Qty: 180 2RF venlafaxine [Effexor XR] 150 mg capsule,extended release 24hr 150 mg PO DAILY tamsulosin 0.4 mg capsule 0.4 mg PO DAILY venlafaxine [Effexor XR] 37.5 mg capsule,extended release 24hr 37.5 mg PO DAILY lorazepam 1 mg tablet 1 mg PO BID PRN (Reason: anxiety) Qty: 5 0RF Discharge Orders: Discharge Order (Routine); Ordered 03/04/24 Ordered By: Lopez Kaur Diet: Advance to usual diet Activity on Discharge: As tolerated Stand Alone Forms: Patient Portal Discharge page Print Language: Slovenian Care Plan Goals: Probably from UTI and encephalopathy Health Concerns: recovery from uti and encephalopathy Plan of Treatment: take ceftin for uti continue usual medication Assessment: see above
[2024-03-04] MEDS: cefTRIAXone sodium 1 GM VIAL IVPUSH (13:03)
--- NOTE | 2024-03-04 14:08 | MHC.CM.PN ---
Pt is medically cleared for discharge back to [facility] today, he will transport via [facility].
[2024-03-04 15:21] VITALS: BP 114/72; PULSE 74; RESP 14; TEMP 36.8; O2SAT 96
[2024-03-04 16:41] LABS: Glucose, Whole Blood 114 mg/dL (60-115)
== END 2024-03-04 17:43 | disposition skilled nursing facility (03) | DRG 689 ==
LOC: HO.ED 03-02 08:31 → HO.EDOVER 03-02 13:26 → HO.S3 03-02 16:46
PROVIDERS: Emergency Medicine Emergency Medical Services; Admitting Provider Physician Assistant; Emergency Provider Student in an Organized Health Care Education/Training Program; Visit Provider Internal Medicine
DX: N39.0 Urinary tract infection, site not specified (principal); G93.41 Metabolic encephalopathy; F05 Delirium due to known physiological condition; Z78.1 Physical restraint status; J45.20 Mild intermittent asthma, uncomplicated; I48.0 Paroxysmal atrial fibrillation; N40.1 Benign prostatic hyperplasia with lower urinary tract symptoms; R33.8 Other retention of urine; G47.33 Obstructive sleep apnea (adult) (pediatric); I12.9 Hypertensive chronic kidney disease with stage 1 through stage 4 chronic kidney disease, or unspecified chronic kidney disease; E11.22 Type 2 diabetes mellitus with diabetic chronic kidney disease; N18.30 Chronic kidney disease, stage 3 unspecified; K21.9 Gastro-esophageal reflux disease without esophagitis; D50.9 Iron deficiency anemia, unspecified; F39 Unspecified mood [affective] disorder; Z66 Do not resuscitate; Z79.01 Long term (current) use of anticoagulants; Z79.899 Other long term (current) drug therapy
CPT/HCPCS: 36415; 70450; 71045; 73502; 80048; 80053; 80076; 81001; 81003; 82550; 82947; 83690; 84484; 85025; 85730; 87086; 93005; 99285; J0696; J1200; J1630; J2060; J2270; J2359; J7120; S9485

== ENCOUNTER → 2024-03-01 10:19 | Outpatient (BNV) | payer MEDICARE, SELFPAY | PROVIDERS: Emergency Provider Emergency Medicine Emergency Medical Services; Visit Provider Internal Medicine | DX: I49.9 Cardiac arrhythmia, unspecified (principal) | CPT/HCPCS: 93010 ==

== ENCOUNTER → 2024-03-02 04:44 | Outpatient (BNV) | payer MEDICARE, SELFPAY | PROVIDERS: Emergency Provider Student in an Organized Health Care Education/Training Program; Visit Provider Internal Medicine Cardiovascular Disease | DX: I48.91 Unspecified atrial fibrillation (principal) | CPT/HCPCS: 93010 ==

== ENCOUNTER → 2024-03-02 13:15 | Outpatient (BNV) | payer MEDICARE, SELFPAY | PROVIDERS: Admitting Provider Physician Assistant; Emergency Provider Student in an Organized Health Care Education/Training Program; Visit Provider Physician Assistant | DX: N39.0 Urinary tract infection, site not specified (principal); R74.8 Abnormal levels of other serum enzymes; R46.89 Other symptoms and signs involving appearance and behavior | CPT/HCPCS: 99223; 99232; 99499 ==

== ENCOUNTER 2024-03-17 17:48 | Emergency (ER) | payer MEDICARE, SELFPAY ==
--- NOTE | ~2024-03-17 | CT_ITS ---
EXAMINATION: CT ANGIOGRAPHY ABDOMEN, PELVIS AND LOWER EXTREMITY RUNOFF WITH CONTRAST CLINICAL INFORMATION: cool, dusky LLE, pain COMPARISON: None TECHNIQUE: Initial noncontrast localizing spark plug tester images were obtained. Timing boluses at the level of the celiac and popliteal arteries were calculated. Subsequently, arterial phase multidetector volumetric imaging was performed through the abdomen, pelvis and bilateral lower extremities following the administration of 85 mL Omnipaque 350 intravenous contrast. No contrast reaction reported Sagittal and coronal reformatted images were obtained on the technologist workstation. After extensive post-processing on a dedicated 3-D workstation, 3-D reformatted images were uploaded to PACS and reviewed as well. This CT examination was performed using dose optimization techniques as appropriate, variously including the following: *Automated exposure control *Adjustment of mA and/or kV according to patient size (this includes techniques or standardized protocols for targeted exams where dose is matched to indication/reason for exam; i.e. extremities or head) *Use of iterative reconstruction technique DLP: 631 mGy-cm FINDINGS: VASCULAR: Heart: Normal in size. No coronary artery calcifications. Abdominal Aorta: Mild calcified atherosclerotic disease. No dissection or aneurysmal dilation. Normal aortic taper. Mesenteric Arteries: The celiac axis, superior mesenteric artery and inferior mesenteric artery are patent. Renal Artery: Single renal arteries bilaterally. Renal arteries are patent and without stenosis or other vascular anomaly. Right Lower Extremity: Right Common Iliac Artery: Patent Right External Iliac Artery: Patent. Right Internal Iliac Artery: Patent. Common Femoral Artery: Patent. Superficial Femoral Artery: Patent Profunda Femoris: Patent. Popliteal Artery: Patent. Tibioperoneal Trunk: Patent. Anterior Tibial Artery: Patent. Peroneal Artery: Patent. Posterior Tibial Artery: Patent. Dorsalis Pedis: Patent. Plantar Arch: Not visualized. Left lower extremity: Left Common Iliac Artery: Patent. Left External Iliac Artery: Patent Left Internal Iliac Artery: Patent. Common Femoral Artery: Patent Superficial Femoral Artery: Patent Profunda Femoris: Patent. Popliteal Artery: Patent. Tibioperoneal Trunk: Patent. Anterior Tibial Artery: Patent. Peroneal Artery: Patent. Posterior Tibial Artery: Patent. Dorsalis Pedis: Patent. Plantar Arch: Not visualized. NONVASCULAR FINDINGS: ABDOMEN/PELVIS: Lung Bases: Bibasilar atelectatic changes. Liver: Homogeneous in attenuation. Normal in size. Gallbladder: Noninflamed. Biliary System: No intrahepatic or extrahepatic biliary dilation. Pancreas: Homogeneous in attenuation. Spleen: Normal in size. Genitourinary: Bilateral kidneys demonstrate symmetric enhancement. Bilateral perinephric stranding, nonspecific No perinephric fluid collection. No renal calculi. No hydroureteronephrosis. Adrenal Glands: Unremarkable. Reproductive: Prostate present with brachytherapy seeds. Gastrointestinal: Postsurgical changes. The gastroesophageal junction. The visualized alimentary tract is normal in course. No evidence of obstruction. Appendix: The appendix is seen in its entirety and is unremarkable. Peritoneum: No pneumoperitoneum. No intra-abdominal fluid collection. Lymph Nodes: No pathologically enlarged abdominal or pelvic lymph nodes. Soft Tissues/Musculoskeletal: Soft tissue swelling about the left foot and ankle. No subcutaneous gas or fluid collection. Large anterior abdominal wall hernia repair. Left hip arthroplasty with missing femoral stem resulting in ipsilateral shortening of the lower extremity. Left knee arthroplasty.. L1 cement plasty. Multilevel degenerative changes throughout the lumbar spine, worst at L4-5. Right first metatarsal pin. Chronically healed right mid fibular and left lateral malleolus fracture with deformity. No acute fractures or focal osseous lesions. CT/CT angio abd aorta runoff IMPRESSION: VASCULAR: Abdomen/Pelvis: No abdominal aortic aneurysm or dissection. Right Lower Extremity: Three-vessel runoff to the foot. Plantar arch not visualized. Left Lower Extremity: Three-vessel runoff to the foot. Plantar arch not visualized. NONVASCULAR: See chronic findings above. Fleischner guidelines were followed. Electronically signed by: Otto Cohen DO 03/17/2024 10:19 PM [facility]
--- NOTE | ~2024-03-17 | US_ITS ---
EXAMINATION: US TRIPLEX LOWER EXTREMITY, LEFT CLINICAL INFORMATION: Left lower extremity pain. COMPARISON: Venous ultrasound dated 12/21/2023. TECHNIQUE: Color-flow triplex imaging with spectral analysis and compression Doppler were performed on the left lower extremity. FINDINGS: Respiratory variation, normal compression and augmented flow are noted throughout the left lower extremity. The visualized common femoral vein, superficial femoral vein, profunda femoral vein, popliteal vein and posterior tibial venous segments show no evidence of deep venous thrombosis. The peroneal veins are poorly visualized. There is no Grimm's cyst. US/US venous duplex LE LT IMPRESSION: No evidence of deep venous thrombosis involving the left lower extremity. Previously noted left popliteal vein thrombosis is not redemonstrated. Electronically signed by: Ottoniel Alfaro MD 03/17/2024 09:16 PM [facility]
[2024-03-17 17:56] VITALS: BP 138/90; PULSE 70; O2SAT 98
[2024-03-17 17:59] VITALS: BP 145/82; PULSE 70; RESP 17; TEMP 37.2; O2SAT 96; BMI 30.5
--- NOTE | 2024-03-17 18:16 | ED_ITS ---
HPI - Extremity Injury (Lower) General Chief Complaint: Extremity Injury, Lower Stated Complaint: ? L ankle fx from snf Time Seen by Provider: 03/17/24 17:53 Source: patient Limitations: no limitations History of Present Illness ED Provider: Mackenzie Abraham PA-C HPI Narrative: 78-year-old male with underlying cognitive impairment, known dependent edema, hypertension, AFib on apixaban, prior DVT and PE, presents with bilateral lower extremity pain and swelling times 10 days. Patient states he was assessed toda at his SNF, he had imaging of the left lower extremity, he was found to have a fracture in the distal fibula. Patient denies recent trauma. Has been ambulatory without assistance. Patient states the swelling in the right lower extremity seemed to dissipate, but then became more pronounced in the left. Denies redness, warmth or pain of the left lower extremity. Denies paresthesia. Related Data Home Medications ?Medication ?Instructions ?Recorded ?Confirmed acetaminophen 325 mg tablet 650 mg PO Q4H PRN Fever Or Pain 09/30/23 03/02/24 (Tylenol) diclofenac sodium 1 % topical gel 4 g topical TID pain 09/30/23 03/02/24 gabapentin 100 mg capsule 300 mg PO TID PAIN 09/30/23 03/02/24 magnesium hydroxide 400 mg/5 mL 30 ml PO DAILY PRN constipation, 09/30/23 03/02/24 oral suspension (Milk of Magnesia) laxative, for no BM in 3 days melatonin 10 mg tablet 10 mg PO BEDTIME insomnia 09/30/23 03/02/24 polyethylene glycol 3350 17 17 g PO DAILY Constipation 09/30/23 01/05/24 gram/dose oral powder (Miralax) simethicone 80 mg chewable tablet 80 mg PO Q8H PRN Indigestion 09/30/23 03/02/24 divalproex 500 mg tablet,delayed 500 mg PO BEDTIME 11/09/23 03/02/24 release (Depakote) fluticasone propionate 50 1 spray intranasal BID allergies 11/09/23 03/02/24 mcg/actuation nasal spray,suspension nystatin-triamcinolone 100,000 1 appl topical BID PRN Rash 11/09/23 03/02/24 unit/g-0.1 % topical cream pantoprazole 40 mg tablet,delayed 40 mg PO DAILY@0630 11/09/23 03/02/24 release vibegron 75 mg tablet (Gemtesa) 75 mg PO DAILY 11/09/23 03/02/24 tamsulosin 0.4 mg capsule 0.4 mg PO DAILY 12/26/23 03/02/24 venlafaxine 150 mg 150 mg PO DAILY 12/26/23 03/02/24 capsule,extended release 24 hr (Effexor XR) venlafaxine 37.5 mg 37.5 mg PO DAILY 12/26/23 03/02/24 capsule,extended release 24 hr (Effexor XR) acetaminophen 650 mg rectal 650 mg NM Q4H PRN GENERAL 03/02/24 03/02/24 suppository DISCOMFORT/ TEMP 101 NM GREATER bisacodyl 10 mg rectal suppository 10 mg NM DAILY PRN for no BM if 03/02/24 03/02/24 MOM ineffective docusate sodium 100 mg capsule 100 mg PO BID 03/02/24 03/02/24 (Colace) lidocaine 4 % topical patch 1 patch topical DAILY 03/02/24 03/02/24 loratadine 10 mg tablet 10 mg PO DAILY allergies 03/02/24 03/02/24 naloxone 0.4 mg/mL injection 0.4 mg subcut Q3M PRN overdose / 03/02/24 03/02/24 solution sedation/ unresponsive oxycodone 5 mg tablet 5 mg PO BID PRN moderate pain 03/02/24 03/02/24 polyvinyl alcohol 1.4 % eye drops 1 drp ophthalmic (eye) BID dry eyes 03/02/24 03/02/24 (Artificial Tears (polyvinyl alcohol)) sodium phosphates 19 gram-7 118 ml NM DAILY PRN no BM & if 03/02/24 03/02/24 gram/118 mL enema (Fleet Enema) bisacodyl supp ineffective Previous Rx's ?Medication ?Instructions ?Recorded syringe with needle, safety 3 mL #100 ea 06/02/21 25 gauge x 5/8 (BD Safety-Jackie Detachable Needle) apixaban 5 mg tablet 5 mg PO BID 90 days #180 tabs 12/24/23 metoprolol tartrate 25 mg tablet 12.5 mg PO BID #45 tabs 12/24/23 lorazepam 1 mg tablet 1 mg PO BID PRN anxiety #5 tabs 01/07/24 cefuroxime axetil 250 mg tablet 250 mg PO BID 7 days #14 tabs 03/04/24 Allergies Allergy/AdvReac Type Severity Reaction Status Date / Time carisoprodol [From Soma] Allergy Mild MENTAL Verified 03/17/24 18:02 STATUS CHANGE, BECOMES AGGRESIVE codeine [Codeine] Allergy Mild STOMACH Verified 03/17/24 18:02 UPSET, RASH gabapentin AdvReac Intermediate lousy Verified 03/17/24 18:02 feeling Review of Systems 2 Review of Systems: Yes all other systems are reviewed and are negative Constitutional: Constitutional: Denies fatigue and Denies fever(s) Cardiovascular: Cardiovascular: Denies chest pain, Reports leg edema and Denies dyspnea Respiratory: Respiratory: Denies dyspnea Integumentary/Breasts: Skin/Breast: Reports change in pigmentation, Denies erythema, Denies rash, Reports skin pain and Denies wounds Endocrine: Endocrine: Denies fatigue PMFSH Past Medical History Attestation statement: The following information was validated with the patient. Medical History Incisional hernia Premature atrial complexes Shortness of breath Rash Asthma exacerbation Leukocytosis Serum potassium elevated Low vitamin D level Headache Fatigue Moderate recurrent major depression Hospital discharge follow-up Chest tightness Dyspnea on exertion Allergic bronchitis Generalized anxiety disorder Tinea cruris SOB (shortness of breath) on exertion Constipation Atrial fibrillation Knee fracture, left Wedge compression fracture of L1 vertebra Prostate cancer Iron deficiency anemia Obstructive sleep apnea Vitamin D deficiency Diverticular disease Obesity (BMI 30-39.9) Peptic ulcer disease Degenerative disc disease GERD (gastroesophageal reflux disease) Anxiety and depression Vitamin B12 deficiency Gout Hypertension Fatigue Dysuria Surgical History History of colonoscopy History of hemiarthroplasty of left hip H/O rectal polypectomy History of knee replacement procedure of left knee H/O hernia repair History of pyloroplasty History of bowel resection History of cholecystectomy Family History Family History Father Diabetes Acute kidney failure Glaucoma Mother Lung cancer Social History Social History Household Members: None Housing: Halfway Housing Other:: independent living Do you presently have visiting nurse or other home services: No Unable to assess alcohol history related to: Unknown Alcohol intake: never Comment: 1:1 sitter Patient Tobacco Use Status: Former Tobacco user Tobacco use type: Cigar e-Cigarette/Vaping Use: Currently Using Second Hand Smoke Exposure: No Advance Directives: Yes Advance Directives on File: Yes Advance Directives Date on File: 07/03/22 service: No Current occupational status: retired Cognitive needs: No Hearing needs: Yes Vision needs: Yes Physical Exam 2 Vital Signs: Vital Signs: Last Vital Signs Temp 97.7 F 03/17/24 23:53 Pulse 68 03/17/24 23:53 Resp 16 03/17/24 23:53 BP 135/71 03/17/24 23:53 Pulse Ox 97 03/17/24 23:53 O2 Del Method Room Air 03/17/24 23:53 BMI result Body Mass Index 30.5 Const: Other: Alert, well-appearing Orientation/consciousness: patient oriented x3 Resp: Other: Nonlabored respiration Cardio: Other: DP and PT pulses are not palpable, however they were present with Doppler. The left lower extremity initially appeared cool and dusky, after elevating the limb the patient was more perfused and pink, sensation intact, bilateral pitting edema noted Skin: Other: Warm dry no rash Neuro: General: patient oriented x3, no focal motor deficits and CN's II-XI intact bilaterally Extrem: Other: DP and PT pulses are not palpable, however they were present with Doppler. The left lower extremity initially appeared cool and dusky, after elevating the limb the patient was more perfused and pink, sensation intact, the left lower extremity is subtly bigger through the calf versus the right Psych: Other: Calm cooperative Medications Administered Discontinued Medications Generic Name Dose Route Start Last Admin Trade Name Freq PRN Reason Stop Dose Admin Acetaminophen 1,000 mg in 100 mls @ 400 mls/hr 03/17/24 18:20 03/17/24 21:03 Ofirmev IV 03/17/24 18:34 Infused ONCE ONE Infusion Iohexol 100 ml 03/17/24 21:09 03/17/24 21:09 Iohexol 350 Mg/Ml 100 Ml Infus..Btl IV 03/17/24 21:10 100 ml ONCE ONE Administration Medical Decision Making Medical Decision Making MDM Narrative: 78-year-old male with underlying cognitive impairment, known dependent edema, hypertension, AFib on apixaban, prior DVT and PE, presents with bilateral lower extremity pain and swelling times 10 days. Patient states he was assessed today at his SNF, he had imaging of the left lower extremity, he was found to have a fracture in the distal fibula. Patient denies recent trauma. Has been ambulatory without assistance. Patient states the swelling in the right lower extremity seemed to dissipate, but then became more pronounced in the left. Denies redness, warmth or pain of the left lower extremity. Denies paresthesia. Problem: Age, cognitive impairment, vascular disease, arrhythmia History: Per patient I have considered the following differential diagnoses: Dependent edema, arterial occlusion, claudication, DVT, cellulitis, fracture, compartment syndrome Plan: In regard to the report of a fracture, I find this unlikely given the patient has been ambulatory and there was no trauma, perhaps it was an over- read. The patient has known dependent edema, his symptoms could simply be from this underlying condition. However, objectively, the patient's left foot appears dusky and cool, I can not palpate pulses, however I think it is due to the edema, with Doppler they are present. We will be obtaining a DVT study and a CT with runoff to be sure there was no arterial occlusions. There was no overlying erythema or warmth to suggest cellulitis. This is certainly not compartment syndrome, the calf is soft, not tense, his pain is not out of proportion with exam. I have independently reviewed the following tests: Labs: No leukocytosis, stable anemia, no electrolyte abnormality Doppler left lower extremity: RDER #: [id number] US/US venous duplex LE LT IMPRESSION: No evidence of deep venous thrombosis involving the left lower extremity. Previously noted left popliteal vein thrombosis is not redemonstrated. Electronically signed by: Ottoniel Alfaro MD 03/17/2024 09:16 PM [facility] CT angio abdomen and pelvis with runoff: CT/CT angio abd aorta runoff IMPRESSION: VASCULAR: Abdomen/Pelvis: No abdominal aortic aneurysm or dissection. Right Lower Extremity: Three-vessel runoff to the foot. Plantar arch not visualized. Left Lower Extremity: Three-vessel runoff to the foot. Plantar arch not visualized. NONVASCULAR: See chronic findings above. Fleischner guidelines were followed. Electronically signed by: Otto Cohen DO 03/17/2024 10:19 PM [facility] And there was no fracture noted on the CT angio Lab Data 03/17/24 18:59 03/17/24 18:59 Labs: Lab Results 03/17/24 Range/Units 18:59 WBC 10.7 (4.8-10.8) X10*3/uL RBC 3.88 L (4.60-5.80) X10*6/uL Hgb 8.7 L (14.0-18.0) g/dl Hct 28.9 L (42.0-52.0) % MCV 74.5 L (80.0-98.0) fL MCH 22.4 L (27.0-33.0) pg MCHC 30.1 L (31.0-36.0) g/dl RDW 19.0 H (11.0-16.0) % Plt Count 424 H D (160-400) X10*3/uL MPV 9.9 (9.4-12.4) fL Immature Gran % (Auto) 0.3 (0.0-0.4) % Neut % (Auto) 54.6 (45-73) % Lymph % (Auto) 34.9 (20-40) % [place] % (Auto) 8.6 (2-11) % Eos % (Auto) 0.9 (0-4) % Baso % (Auto) 0.7 (0-2) % Lymph # (Auto) 3.7 (1.2-4.9) X10*3/uL [place] # (Auto) 0.9 (0.1-1.2) X10*3/uL Eos # (Auto) 0.1 (0.0-0.4) X10*3/uL Baso # (Auto) 0.1 (0.0-0.2) X10*3/uL Abs Immat Gran (auto) 0.03 (0.00-0.03) X10*3/uL Absolute Neuts (auto) 5.9 (2.0-8.3) x10*3/uL Absolute Nucleated RBC 0.000 (0.0-0.012) X10*3/uL Nucleated RBC % (auto) 0.0 (0.0-0.2) /100WBC ESR 7 (0-15) MM/HR PT 11.6 (10.9-12.4) SEC INR 1.0 (0.9-1.1) Sodium 138 (135-145) mmol/L Potassium 4.5 (3.3-5.1) mmol/L Chloride 108 (96-108) mmol/L Carbon Dioxide 24 (22-29) mmol/L Anion Gap 11 L (12-20) BUN 21 H (9-16) mg/dL Creatinine 1.11 (0.5-1.4) mg/dL Estim Creat Clear Calc 68.8 Estimated GFR > 60 Random Glucose 90 (60-115) mg/dL Calcium 8.6 (8.4-10.2) mg/dL Magnesium 2.1 (1.6-2.6) mg/dL Total Bilirubin 0.2 (0.0-1.0) mg/dL AST 34 (5-37) U/L ALT 16 (0-40) U/L Alkaline Phosphatase 70 (39-117) U/L C-Reactive Protein 0.20 (< or = 0.50) mg/dL Total Protein 6.8 (6.5-8.0) g/dL Albumin 3.7 (3.5-5.0) g/dL Discharge Plan Discharge Clinical Impression: Dependent edema Patient Disposition: Home, Self-Care Instructions: Leg Edema (ED) Additional Instructions: The CT scan of the left lower extremity revealed no arterial occlusion. You also had an ultrasound of the left lower extremity that revealed no clot within the veins. All of your screening labs were normal. You have what is called dependent edema. See home care instructions. When your active during the day, you should be wearing compression stockings, this will help your blood circulation. While resting, you can remove the compression stockings, and keep your legs elevated. You need to follow up with your primary care provider. Call tomorrow to make an appointment. Prescriptions: No Action (DME) BD Safety-Jackie Detachable Needl 3 mL 25 gauge x 5/8 syringe See Rx Instructions .ROUTE .MEDSUPPLY Qty: 100 12RF Rx Instructions: As directed diclofenac sodium 1 % Gel 4 g TOPICAL TID Rx Instructions: Apply topically to right hip. acetaminophen [Tylenol] 325 mg Tablet 650 mg PO Q4H PRN (Reason: Fever Or Pain) Rx Instructions: Discomfort/temp 101 or greater. magnesium hydroxide [Milk of Magnesia] 400 mg/5 mL Suspension 30 ml PO DAILY PRN (Reason: constipation, laxative, for no BM in 3 days) Rx Instructions: for no BM in 3 DAYS gabapentin 100 mg Capsule 300 mg PO TID polyethylene glycol 3350 [Miralax] 17 gram/dose Powder 17 g PO DAILY Rx Instructions: Mix with 4-6 Oz of fluid of choice. simethicone 80 mg Tablet,Chewable 80 mg PO Q8H PRN (Reason: Indigestion) melatonin 10 mg Tablet 10 mg PO BEDTIME polyvinyl alcohol [Artificial Tears (polyvin alc)] 1.4 % Drops 1 drp ophthalmic (eye) BID bisacodyl 10 mg Suppository 10 mg NM DAILY PRN (Reason: for no BM if MOM ineffective) Fleet Enema 19-7 gram/118 mL Enema 118 ml NM DAILY PRN (Reason: no BM & if bisacodyl supp ineffective) docusate sodium [Colace] 100 mg Capsule 100 mg PO BID loratadine 10 mg Tablet 10 mg PO DAILY lidocaine 4 % Adhesive Patch,Medicated 1 patch TOPICAL DAILY Rx Instructions: Apply to left hip topically one time a day for pain acetaminophen 650 mg Suppository 650 mg NM Q4H PRN (Reason: GENERAL DISCOMFORT/ TEMP 101 NM GREATER ) Rx Instructions: MAX DAILY DOSE NOT TO EXCEED 3GM DAY FROM ALL SOURCES naloxone 0.4 mg/mL Solution 0.4 mg SUBCUT Q3M PRN (Reason: overdose / sedation/ unresponsive) Rx Instructions: NTExceed 10 mg total dose/episode oxycodone 5 mg tablet 5 mg PO BID PRN (Reason: moderate pain) cefuroxime axetil 250 mg tablet 250 mg PO BID 7 Days Qty: 14 0RF divalproex [Depakote] 500 mg tablet,delayed release (DR/EC) 500 mg PO BEDTIME pantoprazole 40 mg tablet,delayed release (DR/EC) 40 mg PO DAILY@0630 nystatin-triamcinolone 100,000-0.1 unit/g-% cream 1 appl topical BID PRN (Reason: Rash) fluticasone propionate 50 mcg/actuation spray,suspension 1 spray intranasal BID Gemtesa 75 mg tablet 75 mg PO DAILY metoprolol tartrate 25 mg Tablet 12.5 mg PO BID Qty: 45 0RF Protocol: Hold for SBP/HR < HOLD for SBP < : 120 HOLD for HR < : 60 Rx Instructions: hold for SBP < 120 and pulse < 60 apixaban 5 mg tablet 5 mg PO BID 90 Days Qty: 180 2RF venlafaxine [Effexor XR] 150 mg capsule,extended release 24hr 150 mg PO DAILY tamsulosin 0.4 mg capsule 0.4 mg PO DAILY venlafaxine [Effexor XR] 37.5 mg capsule,extended release 24hr 37.5 mg PO DAILY lorazepam 1 mg tablet 1 mg PO BID PRN (Reason: anxiety) Qty: 5 0RF Print Language: Bengali
[2024-03-17 19:02] LABS: MANUAL DIFF FLAG NO
[2024-03-17 19:03] LABS: Basophils Absolute Auto 0.1 X10*3/uL (0.0-0.2); Basophils Percent Auto 0.7 % (0-2); Eosinophils Absolute Auto 0.1 X10*3/uL (0.0-0.4); Eosinophils Percent Auto 0.9 % (0-4); Hematocrit 28.9 % (42.0-52.0); Hemoglobin 8.7 g/dl (14.0-18.0); Imm Gran Abs Auto 0.03 X10*3/uL (0.00-0.03); Imm Gran Pct Auto 0.3 % (0.0-0.4); Lymphocytes Absolute Auto 3.7 X10*3/uL (1.2-4.9); Lymphocytes Percent Auto 34.9 % (20-40); Mean Corpuscular HGB Conc 30.1 g/dl (31.0-36.0); Mean Corpuscular Hemoglobin 22.4 pg (27.0-33.0); Mean Corpuscular Volume 74.5 fL (80.0-98.0); Mean Platelet Volume 9.9 fL (9.4-12.4); Monocytes Absolute Auto 0.9 X10*3/uL (0.1-1.2); Monocytes Percent Auto 8.6 % (2-11); Neutrophils Absolute Auto 5.9 x10*3/uL (2.0-8.3); Neutrophils Percent Auto 54.6 % (45-73); Platelet Count 424 X10*3/uL (160-400); Red Blood Count 3.88 X10*6/uL (4.60-5.80); White Blood Count 10.7 X10*3/uL (4.8-10.8)
[2024-03-17 19:08] LABS: Prothrombin Time 11.6 SEC (10.9-12.4)
[2024-03-17 19:18] LABS: Alanine Aminotransferase 16 U/L (0-40); Albumin Level 3.7 g/dL (3.5-5.0); Alkaline Phosphatase 70 U/L (39-117); Anion Gap 11 (12-20); Aspartate Amino Transferase 34 U/L (5-37); Bilirubin Total 0.2 mg/dL (0.0-1.0); Blood Urea Nitrogen 21 mg/dL (9-16); Calcium 8.6 mg/dL (8.4-10.2); Carbon Dioxide 24 mmol/L (22-29); Chloride 108 mmol/L (96-108); Creatinine Clr Calc Pharmacy 68.8; Estimated Glomerular Filt Rate > 60; Glucose Random 90 mg/dL (60-115); Magnesium 2.1 mg/dL (1.6-2.6); Potassium 4.5 mmol/L (3.3-5.1); Sodium 138 mmol/L (135-145); Total Protein 6.8 g/dL (6.5-8.0)
[2024-03-17] MEDS: Acetaminophen 1,000 MG/100 ML PIGGYBACK 400 MG IV (19:19)
[2024-03-17 20:00] VITALS: BP 119/73; PULSE 65; RESP 20; TEMP 36.3; O2SAT 96
[2024-03-17 20:23] LABS: Erythrocyte Sedimentation Rate 7 MM/HR (0-15)
[2024-03-17] MEDS: iohexoL 350 MG/ML 100 ML INFUS..BTL IV (21:09)
[2024-03-17 22:00] VITALS: BP 131/82; PULSE 70; RESP 16; TEMP 36.6; O2SAT 98
[2024-03-17 23:53] VITALS: BP 135/71; PULSE 68; RESP 16; TEMP 36.5; O2SAT 97
[2024-03-18 02:24] VITALS: BP 135/71; PULSE 68; RESP 16; TEMP 36.5; O2SAT 97
== END 2024-03-18 02:25 | disposition home or self-care (01) ==
PROVIDERS: Physician Assistant Medical; Emergency Provider Emergency Medicine Emergency Medical Services; PCP Family Medicine
DX: R60.0 Localized edema (principal); M79.605 Pain in left leg; M79.604 Pain in right leg; I10 Essential (primary) hypertension; I48.91 Unspecified atrial fibrillation; Z86.718 Personal history of other venous thrombosis and embolism; Z79.01 Long term (current) use of anticoagulants; Z79.899 Other long term (current) drug therapy
CPT/HCPCS: 36415; 75635; 80053; 83735; 85025; 85610; 85652; 86140; 93971; 96374; 99284; J0131; Q9967

== ENCOUNTER 2024-04-01 11:19 | Outpatient (AMB) | payer MEDICARE, SELFPAY ==
[2024-04-01 11:51] VITALS: BP 140/76; PULSE 70; O2SAT 92; BMI 31.7
--- NOTE | 2024-04-01 11:51 | A.OFFPC_ITS ---
Vital Signs 04/01/24 11:51 Height 5 ft 10 in Weight 221 lb BMI 31.7 BP 140/76 H Blood Pressure Location Lt brachial Position Sitting Pulse 70 Pulse Source Pulse Oximeter Pulse Oximetry (%) 92 Oxygen Delivery Method Room Air Intake Visit Reasons: [place] 03/31 Allergies carisoprodol [From Soma] Allergy (Mild, Verified 04/01/24 11:51) MENTAL STATUS CHANGE, BECOMES AGGRESIVE codeine [Codeine] Allergy (Mild, Verified 04/01/24 11:51) STOMACH UPSET, RASH gabapentin Adverse Reaction (Intermediate, Verified 04/01/24 11:51) lousy feeling Tobacco use date assessed: 04/01/24 Fall risk assessment: No Falls in past year Last assessed Fall Risk: 04/01/24 Dental Screening Dental Screen Date: 04/01/24 Did you have a dental visit in the last 12 months?: No Did you have a dental problem in the last 6 months where you did not have access to dental care?: No Was dental information given to patient?: Patient has dentist HPI [facility] 03/31 HPI Details The patient is a 78-year-old male presenting with multiple chronic and acute medical conditions requiring follow-up. He has a history of hypertension, GERD, prostate cancer since 1999, iron deficiency anemia, and a history of pulmonary embolism as of November 2019. He underwent hip surgery with resulting chronic low back pain, genital anxiety disorder, and atrial fibrillation. The patient was recently observed at the emergency department for leg swelling and was diagnosed with a distal fibula fracture without deep vein thrombosis through ultrasound. 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 Additionally, the patient experienced an acute kidney injury. Recently, on March 04, 2024, the patient developed a urinary tract infection with metabolic encephalopathy, necessitating treatment with intravenous Ceftriaxone. There is a notable complaint regarding significant hearing loss, non-responsive to ear drops and flushing efforts, linked to possible wax buildup. Past evaluations included a colon test in 2020, slated for repetition within one to two years. Blood work done on March 17 indicated low hemoglobin levels, warranting further investigation to ascertain the anemia's underlying cause. The patient expresses concern over absorbable sutures, potentially from a past surgery, emerging from an incisional scar. - Patient uses a wheelchair and engages in minimal physical activities. - Exercises at home with some limitation s due to mobility issues. - Reports adequate water consumption and maintaining a balanced diet. - Experiences hearing difficulties, jarvis cting his social interactions. - Regular visits to healthcare facilitie s for chronic health issues. - Hearing: Reports bilateral hearing los s. - Gastrointestinal: Reports constipation . - Musculoskeletal: Reports chronic low b ack pain. - Labs: Low hemoglobin level of 8.7 note d in February 2024. - Imaging: Ultrasound shows no deep vein thrombosis in the left lower extremity. [facility] Medical History Incisional hernia Premature atrial complexes Shortness of breath Rash Asthma exacerbation Leukocytosis Serum potassium elevated Low vitamin D level Headache Fatigue Moderate recurrent major depression Hospital discharge follow-up Chest tightness Dyspnea on exertion Allergic bronchitis Generalized anxiety disorder Tinea cruris SOB (shortness of breath) on exertion Constipation Atrial fibrillation Knee fracture, left Wedge compression fracture of L1 vertebra Prostate cancer Iron deficiency anemia Obstructive sleep apnea Vitamin D deficiency Diverticular disease Obesity (BMI 30-39.9) Peptic ulcer disease Degenerative disc disease GERD (gastroesophageal reflux disease) Anxiety and depression Vitamin B12 deficiency Gout Hypertension Fatigue Dysuria Surgical History History of colonoscopy History of hemiarthroplasty of left hip H/O rectal polypectomy History of knee replacement procedure of left knee H/O hernia repair History of pyloroplasty History of bowel resection History of cholecystectomy Family History Father Diabetes Acute kidney failure Glaucoma Mother Lung cancer Social History Household Members: None Housing: Skilled Nursing Housing Other:: independent living Do you presently have visiting nurse or other home services: No Unable to assess alcohol history related to: Unknown Alcohol intake: never Comment: 1:1 sitter Patient Tobacco Use Status: Former Tobacco user Tobacco use type: Cigar e-Cigarette/Vaping Use: Currently Using Second Hand Smoke Exposure: No Advance Directives Date on File: 07/03/22 service: No Current occupational status: retired Cognitive needs: No Hearing needs: Yes Vision needs: Yes Questionnaire PHQ-9 Over the last 2 weeks, how often have you been bothered by any of the following problems? 1. Little interest or pleasure in doing things: several days 2. Feeling down, depressed, or hopeless: several days 3. Trouble falling or staying asleep, or sleeping too much: several days 4. Feeling tired or having little energy: several days 5. Poor appetite or overeating: several days 6. Feeling bad about yourself - or that you are a failure or have let yourself or your family down: several days 7. Trouble concentrating on things, such as reading the newspaper or watching te levision: several days 8. Moving or speaking so slowly that other people could have noticed. Or the opposite - being so fidgety or restless that you have been moving around a lot more than usual: several days 9. Thoughts that you would be better off or of hurting yourself in some way: several days Total score: 9 Depression Screening Interpretation: Negative Depression Screening Done: Yes Source: Developed by Drs. Víctor Srivastava, Shorty Jimenez and colleagues, with an educational bronson from [employer]. Thrive Questionnaire Date Thrive assessed: 03/03/24 AUDIT C Alcohol Use Questionnaire (AUDIT-C) 1. How often do you have a drink containing alcohol?: Never 3. How often do you have six or more drinks on one occasion?: Never Total Score: 0 Score Reviewed/Action Taken: No MARIZA-7 AMB Questionnaire MARIZA-7 Date MARIZA - 7 assessed: 04/01/24 Feeling nervous, anxious, or on edge: 0 = Not at all Not being able to stop or control worryin = Not at all Worrying too much about different things: 0 = Not at all Trouble relaxin = Not at all Being so restless that it is hard to sit still: 0 = Not at all Becoming easily annoyed or irritable: 0 = Not at all Feeling afraid as if something awful might happen: 0 = Not at all Total MARIZA-7 score (0-4 normal; 5-9 mild; 10-14 moderate; 15-21 severe): 0 Source: Developed by Drs. Víctor Srivastava, Shorty Jimenez and colleagues, with an educational bronson from [employer]. Physical exam (Primary Care) Vital Signs: Last Vital Signs Pulse 70 04/01/24 11:51 BP 140/76 H 04/01/24 11:51 Pulse Ox 92 04/01/24 11:51 Oxygen Delivery Method Room Air 04/01/24 11:51 BMI result Body Mass Index 31.7 Tobacco/Smoking Status: Tobacco use Status Tobacco use date assessed 04/01/24 04/01/24 11:54 Patient Tobacco Use Status Former Tobacco user 04/01/24 11:54 Tobacco use type Cigar 04/01/24 11:54 e-Cigarette/Vaping Use Currently Using 04/01/24 11:54 impacted cerumen L ear PHQ-9: PHQ-9 Score PHQ-9: Total score 9 04/01/24 12:37 Depression Screening Interpretation: Negative Thrive Assessment: Date of Thrive Assessment Date Thrive assessed 03/03/24 04/01/24 11:54 Office Procedures Cerumen Removal From which ear canal was the cerumen removed: left Removal: irrigation, otoscope w/curette, cerumen loop/spoon and other Notes: patient tolerated procedure well, no complications and ear canal clear [id number] Irrigation/Lavage Coding Level of Care Code Est Pt Level 4 (66549) Diagnoses Hearing difficulty of both ears H91.93 Laterality: bilateral Essential hypertension I10 Hypertension type: essential hypertension Gastroesophageal reflux disease without esophagitis K21.9 Esophagitis presence: without esophagitis Prostate cancer C61 Impacted cerumen of left ear H61.22 Suture granuloma, sequela T81.89XS Encounter type: sequela CPT Codes Office Procedure - CPT: 00329-Ioq Irrigation/Lavage ([id number]) Assessment & Plan Assessment & Plan (1) Hearing difficulty: Code(s): H91.90 - Unspecified hearing loss, unspecified ear Category: Medical Qualifiers: Laterality: bilateral Qualified Code(s): H91.93 - Unspecified hearing loss, bilateral Plan: noted to have impacted cerumen L > R (2) Hypertension: Code(s): I10 - Essential (primary) hypertension Category: Medical Qualifiers: Hypertension type: essential hypertension Qualified Code(s): I10 - Essential (primary) hypertension Plan: continue with metoprolol (3) GERD (gastroesophageal reflux disease): Code(s): K21.9 - Gastro-esophageal reflux disease without esophagitis Category: Medical Qualifiers: Esophagitis presence: without esophagitis Qualified Code(s): K21.9 - Gastro-esophageal reflux disease without esophagitis Plan: continue with med (4) Prostate cancer: Comment: [facility] urology Code(s): C61 - Malignant neoplasm of prostate Category: Medical Plan: checking for PSA done (5) Impacted cerumen of left ear: Code(s): H61.22 - Impacted cerumen, left ear Category: Medical Plan: irrigation done TM L intact (6) Suture granuloma: Comment: abdominal wall suture midline Code(s): T81.89XA - Other complications of procedures, not elsewhere classified, initial encounter Category: Medical Qualifiers: Encounter type: sequela Qualified Code(s): T81.89XS - Other complications of procedures, not elsewhere classified, sequela Plan: referral to the surgeon Plan - Hypertension and atrial fibrillation: Continue current medication regimen; monitor blood pressure regularly. - GERD: Maintain pantoprazole therapy. - Prostate cancer: Regular follow-up and PSA testing as discussed. - Iron deficiency anemia: Order additional blood work to assess current status. - Hearing loss: Recommend a hearing test if flushing does not resolve symptoms. - Urinary tract infection: Follow-up on IV treatment response; ensure hydration to prevent recurrence. - Hip prosthesis and compression fractures: Schedule orthopedic follow-up for hip dislocation and conservative management of vertebral fractures. - Anxiety disorder and chronic pain: Continue anxiolytics and gabapentin therapy. - Sutures: Consider a surgical consult if redness persists, balanced with anticoagulation management. I discussed the complexity and interrelationship of multiple chronic conditions and their management with the patient. We reviewed the low hemoglobin levels and agreed on the necessity of further blood work to establish the etiology. Hearing loss management through initial flushing attempts was unsuccessful, keith cating the need for a formal hearing assessment. The surgical sutures' situation requires monitoring for potential infection, considering his anticoagulation therapy. Emphasis was placed on maintaining hydration to aid urinary health and avoiding further kidney complications. I explained the need for continued monitoring of cardiac conditions through regular blood pressure checks and adherence to medications. The importance of scheduled follow-up for the hip prosthesis issue and its effect on mobility was highlighted. - Continue all prescribed medications as directed. - Schedule follow-up blood testing to assess anemia. - Monitor blood pressure regularly and maintain a record. - Schedule a hearing test if symptoms persist. - Increase fluid intake to aid kidney and urinary health. - Report any signs of infection around the abdominal scar. - Perform prescribed exercises to maintain mobility, when possible. - Contact healthcare provider immediately if symptoms worsen or new symptoms develop. Orders: Orders Comprehensive Met. Panel Today I48.0 - Paroxysmal atrial fibrillation Reticulocyte Count Today I48.0 - Paroxysmal atrial fibrillation Thyroid Stimulating Hormone Today I48.0 - Paroxysmal atrial fibrillation Free T4 (Free Thyroxine) Today I48.0 - Paroxysmal atrial fibrillation Magnesium Today I48.0 - Paroxysmal atrial fibrillation PSA,Total (Free>4and<10) Today C61 - Malignant neoplasm of prostate Complete Blood Count Auto Diff Today I48.0 - Paroxysmal atrial fibrillation Ferritin Today I48.0 - Paroxysmal atrial fibrillation IRON PROFILE Today I48.0 - Paroxysmal atrial fibrillation Lipid Panel Today E78.00 - Pure hypercholesterolemia, unspecified, I48.0 - Paroxysmal atrial fibrillation Vitamin B12 and Folate Today I48.0 - Paroxysmal atrial fibrillation B Type Natriuretic Peptide Today I48.0 - Paroxysmal atrial fibrillation Referrals General Surgery Referral T81.89XA - Other complications of procedures, not elsewhere classified, initial encounter
== END 2024-04-01 14:10 | disposition home or self-care (01) ==
PROVIDERS: PCP Internal Medicine; Visit Provider Internal Medicine
DX: H91.93 Unspecified hearing loss, bilateral (principal); I10 Essential (primary) hypertension; K21.9 Gastro-esophageal reflux disease without esophagitis; C61 Malignant neoplasm of prostate; H61.22 Impacted cerumen, left ear; T81.89XS Other complications of procedures, not elsewhere classified, sequela

== ENCOUNTER → 2024-04-01 11:19 | Outpatient (BNVA) | payer MEDICARE, SELFPAY | PROVIDERS: PCP Internal Medicine; Visit Provider Internal Medicine | DX: H61.22 Impacted cerumen, left ear (principal); I10 Essential (primary) hypertension; K21.9 Gastro-esophageal reflux disease without esophagitis; C61 Malignant neoplasm of prostate; T81.89XS Other complications of procedures, not elsewhere classified, sequela | CPT/HCPCS: 69210; 99212 ==

== ENCOUNTER 2024-04-19 17:48 | Emergency (ER) | payer MEDICARE, SELFPAY ==
--- NOTE | 2024-04-19 17:58 | ECG_ITS ---
Test Reason : SOB Blood Pressure : / mmHG Vent. Rate : 093 BPM Atrial Rate : 000 BPM P-R Int : 000 ms QRS Dur : 080 ms QT Int : 358 ms P-R-T Axes : 000 022 058 degrees QTc Int : 445 ms Normal sinus rhythm with frequent PACs Low voltage QRS Lateral infarct (cited on or before 18-DEC-2022) Abnormal ECG When compared with ECG of 02-MAR-2024 04:43, Normal sinus rhythm has replaced Afib Referred By: Generic ED Physician Electronically Signed By:Reynold Ybarra
[2024-04-19 17:59] VITALS: BP 140/106; BP 142/80; PULSE 114; PULSE 84; RESP 22; TEMP 36.3; O2SAT 100; O2SAT 99; BMI 35.5
--- OUTSIDE RECORDS SUMMARY | 2024-04-19 18:20 | XMS_ITS | Clinical Summary ---
Author Organization Unknown Care Team Providers Care Enterprise Infrastructure Architect Name Role Phone PO INTERSTATE, LORENVER Unavailable Unavaila jake MOREL RN, MEHDI Unavailable Unavailable BEATRIZ PT, GLO Unavailable Unavailable [place] OT, PPIER Unavailable Unavailable ADRIANNA RN, REMINGTON Unavailable Unavailable OFELIA RN, KEV Unavailable Unavailable Payers Payer Name Policy Type Policy Number Effective Date Expira tion Date MEDICARE.NGS.PDGM [id number] Problems Condition Name Condition Details Condition Category Status Onset Date Resolution Date Last Treatment Date Treating Clinician Comments DISLOCATION OF INTERNAL LEFT HIP PROSTHESIS, SUBS ENCNTR Active 9-04 00:00: 00 OT FRACTURE OF T11-T12 VERTEBRA, SUBS FOR FX W ROUTN HEAL Active 12-17 00:00: 00 MERALGIA PARESTHETICA , BILATERAL LOWER LIMBS Active - 00:00: 00 HYPOTHYROIDI SM, UNSPECIFIED Active 1- 00:00: 00 DEFICIENCY OF OTHER SPECIFIED B GROUP VITAMINS Active - 00:00: 00 DEM IN OTH DIS CLASSD ELSWHR,UNSP SEV,W/O BEH/PSYCH/MO OD/ANX Active 1- 00:00: 00 OTHER SPECIFIED ANXIETY DISORDERS Active 1- 00:00: 00 OTHER CHRONIC PAIN Active - 00:00: 00 DORSALGIA, UNSPECIFIED Active 8- 00:00: 00 MYALGIA, OTHER SITE Active 8- 00:00: 00 OBESITY, UNSPECIFIED Active 1- 00:00: 00 IRON DEFICIENCY ANEMIA SECONDARY TO BLOOD LOSS (CHRONIC) Active 1- 00:00: 00 PAROXYSMAL ATRIAL FIBRILLATION Active 1- 00:00: 00 ESSENTIAL (PRIMARY) HYPERTENSION Active 1- 00:00: 00 GOUT, UNSPECIFIED Active 04-29 00:00: 00 GASTRO-ESOPH AGEAL REFLUX DISEASE WITHOUT ESOPHAGITIS Active 04-29 00:00: 00 INSOMNIA, UNSPECIFIED Active 04-29 00:00: 00 PERSONAL HISTORY OF PULMONARY EMBOLISM Active 12-28 00:00: 00 PERSONAL HISTORY OF MALIGNANT NEOPLASM OF PROSTATE Active 04-29 00:00: 00 BODY MASS INDEX [BMI] 34.0-34.9, ADULT Active 04-29 00:00: 00 UNSPECIFIED FALL, SUBSEQUENT ENCOUNTER Active 12-17 00:00: 00 PROBLEMS RELATED TO LIVING ALONE Active 04-29 00:00: 00 PERSONAL HISTORY OF NICOTINE DEPENDENCE Active 04-29 00:00: 00 RETIREMENT (CURRENT) USE OF ANTICOAGULAN TS Active 2019-04 00:00: 00 Allergies, Adverse Reactions, Alerts Allergy Name Allergy Type Status Severity Reaction(s) Onset Date Inactive Date Treating Clinician Comments TOPAMAX Propensity to adverse reactions Active 2019-04 15:32: 58 SOMA Propensity to adverse reactions Active 2019-04 19:59: 52 CODEINE Propensity to adverse reactions Active 2019-04 20:00: 01 ASPIRIN Propensity to adverse reactions Active 2019-04 20:00: 10 NSAID'S Propensity to adverse reactions Active 2019-04 20:00: 20 HYDROCHLOROT HIAZIDE Propensity to adverse reactions Active 2019-04 20:00: 34 Medications Ordered Medication Name Filled Medication Name Start Date Stop Date Current Medication? Ordering Clinician Indication Dosage Frequency Signature (SIG) Comments Components omeprazole 40 mg capsule,del ayed release 12-16 00:00: 00 Yes [id number] Per instruc tions DAILY Per instructio ns DAILY (route: oral) Med Classific ation: Gastroint estinal Therapy Agents fexofenadin e 180 mg tablet 12-14 00:00: 00 Yes [id number] Per instruc tions ONCE A DAY NEEDED Per instructio ns ONCE A DAY NEEDED (route: oral) Med Classific ation: Respirato ry Therapy Agents alfuzosin ER 10 mg tablet,exte nded release 24 hr 6 00:00: 00 02-06 23:59 :00 No [id number] Per instruc tions EVERY Per instructio ns EVERY (route: oral) Med Classific ation: Genitouri nary Therapy divalproex 500 mg tablet,lelo yed release 10-19 00:00: 00 Yes [id number] Per instruc tions EVERY Per instructio ns EVERY (route: oral) Med Classific ation: Central Nervous System Agents venlafaxine ER 150 mg capsule,ext ended release 24 hr 10-19 00:00: 00 Yes [id number] Per instruc tions ONCE A DAY Per instructio ns ONCE A DAY (route: oral) Med Classific ation: Central Nervous System Agents Ativan 2 mg tablet 2019-04 00:00: 00 Yes [id number] 2 mg EVERY 12 HOURS 2 mg EVERY 12 HOURS (route: oral) Med Classific ation: Central Nervous System Agents trazodone 50 mg tablet 2019-04 00:00: 00 02-17 23:59 :00 No [id number] 25 mg BEDTIME 25 mg BEDTIME (route: oral) Med Classific ation: Central Nervous System Agents amlodipine 10 mg tablet 2019-04 00:00: 00 Yes [id number] 1 tablet DAILY 1 tablet DAILY (route: oral) Med Classific ation: Cardiovas cular Therapy Agents apixaban 5 mg tablet 2019-04 00:00: 00 Yes [id number] 1 tablet 2 TIMES DAILY 1 tablet 2 TIMES DAILY (route: oral) Med Classific ation: Hematolog ical Agents baclofen 10 mg tablet 2019-04 00:00: 00 Yes [id number] 1 tablet 3 TIMES DAILY 1 tablet 3 TIMES DAILY (route: oral) Med Classific ation: Locomotor System docusate sodium 100 mg tablet 2019-04 00:00: 00 Yes [id number] 1 tablet 2 TIMES DAILY 1 tablet 2 TIMES DAILY (route: oral) Med Classific ation: Gastroint estinal Therapy Agents hydrocodone 5 mg-acetamin ophen 325 mg tablet 2019-04 00:00: 00 Yes [id number] 1 tablet EVERY 6 HOURS 1 tablet EVERY 6 HOURS (route: oral) Med Classific ation: Analgesic , Anti-infl ammatory or Antipyret ic Lidocaine Plus 4 % topical cream 2019-04 00:00: 00 Yes [id number] Per instruc tions 3 TIMES DAILY Per instructio ns 3 TIMES DAILY (route: topical) Med Classific ation: Dermatolo gical trazodone 50 mg tablet 2019-04 00:00: 00 Yes [id number] 1 tablet BEDTIME 1 tablet BEDTIME (route: oral) Med Classific ation: Central Nervous System Agents Uroxatral 10 mg tablet,exte nded release 2019-04 00:00: 00 03-18 23:59 :00 No [id number] 1 tablet EVERY OTHER DAY 1 tablet EVERY OTHER DAY (route: oral) Med Classific ation: Genitouri nary Therapy ciprofloxac in 250 mg tablet 2019-04 00:00: 00 03-10 23:59 :00 No [id number] 1 tablet 2 TIMES DAILY 1 tablet 2 TIMES DAILY (route: oral) Med Classific ation: Anti-Infe ctive Agents alfuzosin ER 10 mg tablet,exte nded release 24 hr 2019-04 00:00: 00 Yes [id number] 1 tablet BEDTIME 1 tablet BEDTIME (route: oral) Med Classific ation: Genitouri nary Therapy Immunizations Ordered Immunization Name Filled Immunization Name Date Status Comments Refusal Reason INFLUENZA, TIV (INACTIVATED) 2019-12-30 00:00:00 PNEUMOCOCCAL (PPV), PPV 2019-06-02 00:00:00 SHINGLES, TIV (INACTIVATED) 2018-06-06 00:00:00 Vital Signs Vital Name Observation Time Observation Value Commen ts Temperature 2020-04-04 12:42:20.000 97.8 [degF] Temperature 2020-04-02 07:07:17.000 96.7 [degF] Temperature 2020-03-30 11:43:42.000 97.2 [degF] Temperature 2020-03-25 14:42:32.000 97.4 [degF] Temperature 2020-03-21 11:32:46.000 97.4 [degF] Temperature 2020-03-18 12:35:51.000 97 [degF] Temperature 2020-03-11 17:04:40.000 96.9 [degF] Temperature 2020-03-08 09:22:24.000 97 [degF] Temperature 2020-03-02 09:32:59.000 97 [degF] Temperature 2020-03-01 17:22:17.000 97.7 [degF] Temperature 2020-03-01 09:03:15.000 98 [degF] Temperature 2020-02-27 12:57:05.000 97.8 [degF] Temperature 2020-02-26 11:48:15.000 97.8 [degF] Temperature 2020-02-24 13:06:27.000 99.1 [degF] Temperature 2020-02-23 15:18:41.000 98.9 [degF] Temperature 2020-02-19 11:12:08.000 98 [degF] Temperature 2020-02-18 15:13:57.000 97.7 [degF] Temperature 2020-02-10 10:45:34.000 98 [degF] Temperature 2020-02-09 12:00:38.000 98.1 [degF] Temperature 2020-02-07 09:35:48.000 97.7 [degF] Pulse 2020-04-04 12:42:59.000 90 /min Pulse 2020-04-02 07:07:34.000 80 /min Pulse 2020-03-30 11:43:48.000 80 /min Pulse 2020-03-25 14:42:49.000 85 /min Pulse 2020-03-21 11:33:07.000 79 /min Pulse 2020-03-18 12:36:01.000 84 /min Pulse 2020-03-11 17:03:01.000 83 /min Pulse 2020-03-08 09:22:38.000 78 /min Pulse 2020-03-02 09:33:18.000 85 /min Pulse 2020-03-01 17:45:38.000 80 /min Pulse 2020-03-01 09:03:27.000 87 /min Pulse 2020-02-27 12:57:33.000 84 /min Pulse 2020-02-26 11:48:24.000 92 /min Pulse 2020-02-24 13:00:39.000 93 /min Pulse 2020-02-23 15:19:03.000 82 /min Pulse 2020-02-19 11:12:13.000 77 /min Pulse 2020-02-18 15:14:07.000 78 /min Pulse 2020-02-10 10:45:40.000 80 /min Pulse 2020-02-09 12:00:47.000 95 /min Pulse 2020-02-07 09:36:10.000 82 /min O2 Saturation (%) 2020-04-04 12:43:16.000 98 % O2 Saturation (%) 2020-03-25 14:43:30.000 97 % O2 Saturation (%) 2020-03-11 17:03:24.000 98 % O2 Saturation (%) 2020-03-08 09:23:02.000 98 % O2 Saturation (%) 2020-03-02 09:33:36.000 98 % O2 Saturation (%) 2020-02-26 11:48:49.000 96 % O2 Saturation (%) 2020-02-24 13:00:24.000 98 % O2 Saturation (%) 2020-02-23 15:19:31.000 97 % O2 Saturation (%) 2020-02-19 11:12:24.000 97 % O2 Saturation (%) 2020-02-18 15:14:34.000 98 % O2 Saturation (%) 2020-02-10 10:46:14.000 97 % O2 Saturation (%) 2020-02-09 12:01:04.000 97 % O2 Saturation (%) 2020-02-07 09:37:03.000 98 % Respirations 2020-04-04 12:43:07.000 18 /min Respirations 2020-04-02 07:08:00.000 18 /min Respirations 2020-03-30 11:43:53.000 18 /min Respirations 2020-03-25 14:42:58.000 18 /min Respirations 2020-03-21 11:33:18.000 18 /min Respirations 2020-03-18 12:36:22.000 18 /min Respirations 2020-03-11 17:04:50.000 18 /min Respirations 2020-03-08 09:23:13.000 18 /min Respirations 2020-03-02 09:33:26.000 18 /min Respirations 2020-03-01 17:45:49.000 18 /min Respirations 2020-03-01 09:03:40.000 18 /min Respirations 2020-02-27 12:57:44.000 18 /min Respirations 2020-02-26 11:48:32.000 20 /min Respirations 2020-02-24 13:06:13.000 18 /min Respirations 2020-02-23 15:19:15.000 18 /min Respirations 2020-02-19 11:12:17.000 18 /min Respirations 2020-02-18 15:14:14.000 17 /min Respirations 2020-02-10 10:46:08.000 18 /min Respirations 2020-02-09 12:00:56.000 18 /min Respirations 2020-02-07 09:36:21.000 18 /min Weight (lbs) 2020-03-01 17:42:31.000 240 [lb_av] Systolic Blood Pressure 2020-04-04 12:45:15.000 120 mm [Hg] Systolic Blood Pressure 2020-04-02 07:08:13.000 142 mm [Hg] Systolic Blood Pressure 2020-03-30 11:44:00.000 140 mm [Hg] Systolic Blood Pressure 2020-03-25 14:43:13.000 138 mm [Hg] Systolic Blood Pressure 2020-03-21 11:33:51.000 134 mm [Hg] Systolic Blood Pressure 2020-03-18 12:36:39.000 128 mm [Hg] Systolic Blood Pressure 2020-03-11 17:09:20.000 114 mm [Hg] Systolic Blood Pressure 2020-03-08 09:33:05.000 138 mm [Hg] Systolic Blood Pressure 2020-03-02 09:35:21.000 132 mm [Hg] Systolic Blood Pressure 2020-03-01 09:03:49.000 144 mm [Hg] Systolic Blood Pressure 2020-02-27 12:58:00.000 132 mm [Hg] Systolic Blood Pressure 2020-02-26 11:45:05.000 128 mm [Hg] Systolic Blood Pressure 2020-02-24 13:02:44.000 120 mm [Hg] Systolic Blood Pressure 2020-02-23 15:16:36.000 106 mm [Hg] Systolic Blood Pressure 2020-02-19 11:12:38.000 138 mm [Hg] Systolic Blood Pressure 2020-02-18 15:11:45.000 136 mm [Hg] Systolic Blood Pressure 2020-02-10 10:46:25.000 124 mm [Hg] Systolic Blood Pressure 2020-02-09 12:02:47.000 144 mm [Hg] Systolic Blood Pressure 2020-02-07 09:36:40.000 118 mm [Hg] Diastolic Blood Pressure 2020-04-04 12:45:15.000 70 mm [Hg] Diastolic Blood Pressure 2020-04-02 07:08:13.000 76 mm [Hg] Diastolic Blood Pressure 2020-03-30 11:44:00.000 62 mm [Hg] Diastolic Blood Pressure 2020-03-25 14:43:13.000 75 mm [Hg] Diastolic Blood Pressure 2020-03-21 11:33:51.000 70 mm [Hg] Diastolic Blood Pressure 2020-03-18 12:36:39.000 68 mm [Hg] Diastolic Blood Pressure 2020-03-11 17:09:20.000 77 mm [Hg] Diastolic Blood Pressure 2020-03-08 09:33:05.000 70 mm [Hg] Diastolic Blood Pressure 2020-03-02 09:35:21.000 70 mm [Hg] Diastolic Blood Pressure 2020-03-01 09:03:49.000 82 mm [Hg] Diastolic Blood Pressure 2020-02-27 12:58:00.000 80 mm [Hg] Diastolic Blood Pressure 2020-02-26 11:45:05.000 68 mm [Hg] Diastolic Blood Pressure 2020-02-24 13:02:44.000 68 mm [Hg] Diastolic Blood Pressure 2020-02-23 15:16:36.000 64 mm [Hg] Diastolic Blood Pressure 2020-02-19 11:12:38.000 70 mm [Hg] Diastolic Blood Pressure 2020-02-18 15:11:45.000 74 mm [Hg] Diastolic Blood Pressure 2020-02-10 10:46:25.000 66 mm [Hg] Diastolic Blood Pressure 2020-02-09 12:02:47.000 82 mm [Hg] Diastolic Blood Pressure 2020-02-07 09:36:40.000 64 mm [Hg] Plan of Treatment Planned Activity Planned Date Details Comments Future Scheduled Test SKILLED NU RSE TO ASSESS, EVALUATE, AND DEVELOP AN INDIVIDUALIZED PLAN OF CARE. AGENCY MAY ACCEPT ORDERS FROM CONSULTING PHYSICIANS SN TO OBSERVE/ASSESS RISK FOR FALLS AND INSTRUCT IN FALL PREVENTION, HOME SAFETY, MEDICATION MANAGEMENT, INFECTION PREVENTION, AND NUTRITION MANAGEMENT. SN MAY PERFORM O2 SATURATION LEVEL ON ADMISSION AND PRN TO ASSESS PATIENT, WITH NOTIFICATION TO THE PHYSICIAN IF SATURATION IS 90% IN THE ABSENCE OF MORE SPECIFIC PARAMETERS FROM THE PHYSICIAN. AGENCY MAY PERFORM A RESUMPTION OF CARE VISIT FOLLOWING ANY HOSPITAL ADMISSION. ALL DISCIPLINES (EXCEPT [facility]) MAY PROVIDE TELEHEALTH PHONE/REMOTE/VIRTUAL VISITS IN LIEU OF AN IN-PERSON VISIT THAT DOES NOT REQUIRE HANDS ON OR IN PERSON ASSESSMENT WHEN AN IN-PERSON VISIT IS NOT POSSIBLE DUE TO THE PUBLIC HEALTH EMERGENCY RELATED TO THE COVID- PANDEMIC. SKILLED NURSE TO INSTRUCT PATIENT / CAREGIVER ON DISEASE PROCESS, SELF MANAGEMENT, SIGNS AND SYMPTOMS TO REPORT TO SN/PHYSICIAN: NEUROPATHY [code = SKILLED NURSE TO ASSESS, EVALUATE, AND DEVELOP AN INDIVIDUALIZED PLAN OF CARE. AGENCY MAY ACCEPT ORDERS FROM CONSULTING PHYSICIANS SN TO OBSERVE/ASSESS RISK FOR FALLS AND INSTRUCT IN FALL PREVENTION, HOME SAFETY, MEDICATION MANAGEMENT, INFECTION PREVENTION, AND NUTRITION MANAGEMENT. SN MAY PERFORM O2 SATURATION LEVEL ON ADMISSION AND PRN TO ASSESS PATIENT, WITH NOTIFICATION TO THE PHYSICIAN IF SATURATION IS 90% IN THE ABSENCE OF MORE SPECIFIC PARAMETERS FROM THE PHYSICIAN. AGENCY MAY PERFORM A RESUMPTION OF CARE VISIT FOLLOWING ANY HOSPITAL ADMISSION. ALL DISCIPLINES (EXCEPT [facility]) MAY PROVIDE TELEHEALTH PHONE/REMOTE/VIRTUAL VISITS IN LIEU OF AN IN-PERSON VISIT THAT DOES NOT REQUIRE HANDS ON OR IN PERSON ASSESSMENT WHEN AN IN-PERSON VISIT IS NOT POSSIBLE DUE TO THE PUBLIC HEALTH EMERGENCY RELATED TO THE COVID- PANDEMIC. SKILLED NURSE TO INSTRUCT PATIENT / CAREGIVER ON DISEASE PROCESS, SELF MANAGEMENT, SIGNS AND SYMPTOMS TO REPORT TO SN/PHYSICIAN: NEUROPATHY ] Future Scheduled Test MEDICATION MANAGEMENT; SKILLED NURSE TO REVIEW MEDICATIONS FOR INTERACTIONS, EFFECTIVENESS OF DRUG THERAPY, AND SIGNS/SYMPTOMS OF ADVERSE REACTIONS. MAY INSTRUCT AND REINFORCE MEDICATION TEACHING RELATED TO THE USE OF MEDICATIONS, DOSAGE, FREQUENCY, PURPOSE, SIDE EFFECTS, AND TO REPORT COMPLICATIONS. [code = MEDICATION MANAGEMENT; SKILLED NURSE TO REVIEW MEDICATIONS FOR INTERACTIONS, EFFECTIVENESS OF DRUG THERAPY, AND SIGNS/SYMPTOMS OF ADVERSE REACTIONS. MAY INSTRUCT AND REINFORCE MEDICATION TEACHING RELATED TO THE USE OF MEDICATIONS, DOSAGE, FREQUENCY, PURPOSE, SIDE EFFECTS, AND TO REPORT COMPLICATIONS.] Future Scheduled Test RISK FOR H OSPITALIZATION; SKILLED NURSE TO INSTRUCT PATIENT/ ON RISK FOR HOSPITALIZATION, TEACH SIGNS AND SYMPTOMS THAT PUT PATIENT AT RISK, WHEN TO NOTIFY NURSE OF COMPLICATIONS/DECLINE, AND WHEN TO CALL 911. SKILLED NURSE TO INSTRUCT PATIENT ON: SIGNS AND SYMPTOMS TO BE ON ALERT FOR EARLY INTERVENTION, PRIOR TO NEEDING EMERGENCY SERVICES CALL [facility] NURSE TO KEEP INTAKE COORDINATOR SYMPTOM REPORT FOR VISIBLE REFERENCE NOTIFY SKILLED NURSE/PHYSICIAN FOR DECLINE IN STATS WHEN AND HOW TO CALL HOME HEALTH AGENCY FACILITATE PHYSICIAN FOLLOW UP APPOINTMENT IDENTIFY SOCIOECONOMIC CONCERNS AND MAKE APPROPRIATE REFERRAL NEEDED IDENTIFY PATIENT GOALS FOR STAYING OUT OF THE HOSPITAL: [code = RISK FOR HOSPITALIZATION; SKILLED NURSE TO INSTRUCT PATIENT/ ON RISK FOR HOSPITALIZATION, TEACH SIGNS AND SYMPTOMS THAT PUT PATIENT AT RISK, WHEN TO NOTIFY NURSE OF COMPLICATIONS/DECLINE, AND WHEN TO CALL 911. SKILLED NURSE TO INSTRUCT PATIENT ON: SIGNS AND SYMPTOMS TO BE ON ALERT FOR EARLY INTERVENTION, PRIOR TO NEEDING EMERGENCY SERVICES CALL [facility] NURSE TO KEEP INTAKE COORDINATOR SYMPTOM REPORT FOR VISIBLE REFERENCE NOTIFY SKILLED NURSE/PHYSICIAN FOR DECLINE IN STATS WHEN AND HOW TO CALL HOME HEALTH AGENCY FACILITATE PHYSICIAN FOLLOW UP APPOINTMENT IDENTIFY SOCIOECONOMIC CONCERNS AND MAKE APPROPRIATE REFERRAL NEEDED IDENTIFY PATIENT GOALS FOR STAYING OUT OF THE HOSPITAL: ] Future Scheduled Test CARDIOVASC ULAR SYSTEM; SKILLED NURSE TO ASSESS AND TEACH RELATED TO ALTERED CARDIOVASCULAR STATUS TO MINIMIZE COMPLICATIONS AND REDUCE HOSPITALIZATION. [code = CARDIOVASCULAR SYSTEM; SKILLED NURSE TO ASSESS AND TEACH RELATED TO ALTERED CARDIOVASCULAR STATUS TO MINIMIZE COMPLICATIONS AND REDUCE HOSPITALIZATION.] Future Scheduled Test HYPERTENSI ON MANAGEMENT; SKILLED NURSE TO ASSESS/TEACH WARNING SIGNS AND SYMPTOMS TO AVOID HOSPITALIZATION. [code = HYPERTENSION MANAGEMENT; SKILLED NURSE TO ASSESS/TEACH WARNING SIGNS AND SYMPTOMS TO AVOID HOSPITALIZATION.] Future Scheduled Test COVID-19 P OSITIVE/SYMPTOMATIC MANAGEMENT; SKILLED NURSE TO ASSESS AND TEACH SIGNS OF COVID-19 AND PROVIDE EARLY INTERVENTIONS TO MINIMIZE RISK OF HOSPITALIZATION. PT AWAITING COVID 19 TEST, HAS BEEN POSITIVE IN THE PAST. [code = COVID-19 POSITIVE/SYMPTOMATIC MANAGEMENT; SKILLED NURSE TO ASSESS AND TEACH SIGNS OF COVID-19 AND PROVIDE EARLY INTERVENTIONS TO MINIMIZE RISK OF HOSPITALIZATION. PT AWAITING COVID 19 TEST, HAS BEEN POSITIVE IN THE PAST.] Future Scheduled Test PAIN MANAG EMENT; SKILLED NURSE TO OBSERVE, ASSESS, AND PROVIDE EDUCATION ON PAIN MANAGEMENT TECHNIQUES. [code = PAIN MANAGEMENT; SKILLED NURSE TO OBSERVE, ASSESS, AND PROVIDE EDUCATION ON PAIN MANAGEMENT TECHNIQUES.] Future Scheduled Test FALL REDUC TION MANAGEMENT; NURSING TO PROVIDE SKILLED ASSESSMENT, EDUCATION, AND INTERVENTION TO IDENTIFY FALL RISK FACTORS SUCH MEDICATIONS THAT MAY CAUSE DIZZINESS, CHRONIC DISEASES, PSYCHOLOGICAL FACTORS, AND EMPOWER/EDUCATE PATIENT/CAREGIVER TO MINIMIZE FALL RISK. [code = FALL REDUCTION MANAGEMENT; NURSING TO PROVIDE SKILLED ASSESSMENT, EDUCATION, AND INTERVENTION TO IDENTIFY FALL RISK FACTORS SUCH MEDICATIONS THAT MAY CAUSE DIZZINESS, CHRONIC DISEASES, PSYCHOLOGICAL FACTORS, AND EMPOWER/EDUCATE PATIENT/CAREGIVER TO MINIMIZE FALL RISK.] Future Scheduled Test PHYSICAL T HERAPIST TO EVALUATE FOR MOBILITY [code = PHYSICAL THERAPIST TO EVALUATE FOR MOBILITY] Future Scheduled Test OCCUPATION AL THERAPIST TO EVALUATE FOR PTS ADL'S [code = OCCUPATIONAL THERAPIST TO EVALUATE FOR PTS ADL'S ] Future Scheduled Test PRN VISITS ; PATIENT REQUIRES 3 PRN RESIDENTIAL VISITS FOR COMPLICATIONS R/T PAIN MANAGEMENT, AND ALTERED MOBILITY [code = PRN VISITS; PATIENT REQUIRES 3 PRN RESIDENTIAL VISITS FOR COMPLICATIONS R/T PAIN MANAGEMENT, AND ALTERED MOBILITY] Future Scheduled Test AGENCY MAY PERFORM A RESUMPTION OF CARE VISIT FOLLOWING ANY HOSPITAL ADMISSION. ALL DISCIPLINES (EXCEPT [facility]) MAY PROVIDE TELEHEALTH PHONE/REMOTE/VIRTUAL VISITS IN LIEU OF AN IN-PERSON VISIT THAT DOES NOT REQUIRE HANDS ON OR IN PERSON ASSESSMENT WHEN AN IN-PERSON VISIT IS NOT POSSIBLE DUE TO THE PUBLIC HEALTH EMERGENCY RELATED TO THE COVID-19 PANDEMIC. PHYSICAL THERAPY TO EVALUATE, ASSESS AND MONITOR, PROVIDE SKILLED THERAPEUTIC INTERVENTION, ACTIVITY, EDUCATION, AND TRAINING TO ADDRESS: TRANSFER TRAINING (PT) GAIT TRAINING (PT) NEUROMUSCULAR RE-EDUCATION / BALANCE RETRAINING (PT) THERAPEUTIC EXERCISES (PT) ORTHOPEDIC SURGICAL AFTERCARE (PT) MAY TEACH PATIENT APPLICATION OF CRYOTHERAPY FOR PAIN AND/OR SWELLING UP TO 20 MIN AT A TIME OVER INCISION/JOINT HIP REPLACEMENT SELF-MANAGEMENT (PT) [code = AGENCY MAY PERFORM A RESUMPTION OF CARE VISIT FOLLOWING ANY HOSPITAL ADMISSION. ALL DISCIPLINES (EXCEPT [facility]) MAY PROVIDE TELEHEALTH PHONE/REMOTE/VIRTUAL VISITS IN LIEU OF AN IN-PERSON VISIT THAT DOES NOT REQUIRE HANDS ON OR IN PERSON ASSESSMENT WHEN AN IN-PERSON VISIT IS NOT POSSIBLE DUE TO THE PUBLIC HEALTH EMERGENCY RELATED TO THE COVID-19 PANDEMIC. PHYSICAL THERAPY TO EVALUATE, ASSESS AND MONITOR, PROVIDE SKILLED THERAPEUTIC INTERVENTION, ACTIVITY, EDUCATION, AND TRAINING TO ADDRESS: TRANSFER TRAINING (PT) GAIT TRAINING (PT) NEUROMUSCULAR RE-EDUCATION / BALANCE RETRAINING (PT) THERAPEUTIC EXERCISES (PT) ORTHOPEDIC SURGICAL AFTERCARE (PT) MAY TEACH PATIENT APPLICATION OF CRYOTHERAPY FOR PAIN AND/OR SWELLING UP TO 20 MIN AT A TIME OVER INCISION/JOINT HIP REPLACEMENT SELF-MANAGEMENT (PT)] Future Scheduled Test AGENCY MAY PERFORM A RESUMPTION OF CARE VISIT FOLLOWING ANY HOSPITAL ADMISSION. ALL DISCIPLINES (EXCEPT [facility]) MAY PROVIDE TELEHEALTH PHONE/REMOTE/VIRTUAL VISITS IN LIEU OF AN IN-PERSON VISIT THAT DOES NOT REQUIRE HANDS ON OR IN PERSON ASSESSMENT WHEN AN IN-PERSON VISIT IS NOT POSSIBLE DUE TO THE PUBLIC HEALTH EMERGENCY RELATED TO THE COVID-19 PANDEMIC. OCCUPATIONAL THERAPY TO EVALUATE, ASSESS, AND MONITOR, PROVIDE SKILLED THERAPEUTIC INTERVENTION, ACTIVITY, EDUCATION, AND TRAINING TO ADDRESS; WEAKNESS, FALL PREVENTION, DECLINE IN SHOWERS AND BATHING. BATHING/SHOWERING (OT) HEALTH MANAGEMENT- PHYSICAL ACTIVITY (OT) FALL REDUCTION (OT) [code = AGENCY MAY PERFORM A RESUMPTION OF CARE VISIT FOLLOWING ANY HOSPITAL ADMISSION. ALL DISCIPLINES (EXCEPT [facility]) MAY PROVIDE TELEHEALTH PHONE/REMOTE/VIRTUAL VISITS IN LIEU OF AN IN-PERSON VISIT THAT DOES NOT REQUIRE HANDS ON OR IN PERSON ASSESSMENT WHEN AN IN-PERSON VISIT IS NOT POSSIBLE DUE TO THE PUBLIC HEALTH EMERGENCY RELATED TO THE COVID-19 PANDEMIC. OCCUPATIONAL THERAPY TO EVALUATE, ASSESS, AND MONITOR, PROVIDE SKILLED THERAPEUTIC INTERVENTION, ACTIVITY, EDUCATION, AND TRAINING TO ADDRESS; WEAKNESS, FALL PREVENTION, DECLINE IN SHOWERS AND BATHING. BATHING/SHOWERING (OT) HEALTH MANAGEMENT- PHYSICAL ACTIVITY (OT) FALL REDUCTION (OT)] Goal 2020-02-18 Patient Goal - TO IMPROVE AM BULATION Goal 2020-04-04 Patient Goal - TO IMPROVE AM BULATION Goal Provider Goal - A PLAN OF CARE WILL BE ESTABLISHED THAT MEETS THE PATIENT'S NURSING NEEDS BY 02/06 PATIENT WILL DEMONSTRATE OXYGEN SATURATION WITH NORMAL LIMITS OR TO PATIENT'S OPTIMAL LEVEL ESTABLISHED BY THE PHYSICIAN THROUGHOUT CARE Goal Provider Goal - PATIENT TO VERBALIZE, AND CONSISTENTLY DEMONSTRATE EFFECTIVE, SAFE MANAGEMENT OF MEDICATION INCLUDING KNOWLEDGE OF EFFECTIVENESS, POTENTIAL SIDE EFFECTS AND DRUG REACTIONS AND WHEN TO CONTACT THE APPROPRIATE CARE PROVIDER. PATIENT WILL BE ABLE TO VERBALIZE UNDERSTANDING OF MEDICATION REGIMEN AND ACCURATELY TAKE MEDICATIONS PRESCRIBED WITHOUT ADVERSE EFFECTS BY 02/10 Goal Provider Goal - PATIENT/CAREGIVER WILL VERBALIZE UNDERSTANDING OF SIGNS AND SYMPTOMS THAT PUT THE PATIENT AT RISK FOR HOSPITALIZATION, WHEN TO NOTIFY SN OF COMPLICATIONS/DECLINE AND WHEN TO CALL 911. Goal Provider Goal - PATIENT WILL VERBALIZE/DEMONSTRATE UNDERSTANDING OF MEASURES TO MANAGE HYPERTENSION STATUS BY END OF CERT PERIOD Goal Provider Goal - PATIENT WILL VERBALIZE/DEMONSTRATE AN ABILITY TO ADHERE TO SELF-MANAGEMENT OF HTN TO MINIMIZE COMPLICATIONS AND AVOID HOSPITALIZATION BY END OF EPISODE. Goal Provider Goal - PATIENT WILL VERBALIZE/DEMONSTRATE AN ABILITY TO ADHERE TO COVID-19 SELF-MANAGEMENT TO MINIMIZE COMPLICATIONS AND AVOID HOSPITALIZATION BY END OF EPISODE. Goal Provider Goal - PATIENT WILL VERBALIZE / DEMONSTRATE UNDERSTANDING OF PAIN CONTROL MEASURES BY 02/20 Goal Provider Goal - PATIENT ABLE TO IDENTIFY FALL RISK FACTORS AND IMPLEMENT STRATEGIES TO MINIMIZE FALL RISK. PATIENT WILL VERBALIZE/DEMONSTRATE AN ABILITY TO ADHERE TO FALL REDUCTION SELF MANAGEMENT AND LIFE-STYLE CHANGES AT DISCHARGE. PERSONAL GOAL STATED BY PATIENT WILL BE MET BY END OF CERT PERIOD Goal Provider Goal - Goal Provider Goal - Goal Provider Goal - Goal Provider Goal - PT STG: PATIENT WILL GOOD USEOFTHR PRECAUTIONS FOR TRANSFERS IN 3 WEEKS TO PROMOTE IMPROVED CONDITION MANAGEMENT LTG PATIENT WILL DEMO INDEP PERFORMANCE OF HOUSEHOLD TRANSFERS WITH SPC USE IN 6 WEEKS TO PROMOTE IMPROVED FUNCTIONAL INDEP PATIENT WILL DEMO INDEP PERFORMANCE OF HOUSEHOLD GAIT AND STAIRS WITH SPC USE IN 8 WEEKS TO PROMOTE SAFE NAVIGATION THROUGHOUT HOME ENVIRONMENT PATIENT WILL DEMO IMPROVED TUG SCORE TO 12 SECONDS AND 21 TINETTI SCORE IN 8 WEEKS TO REDUCE FALL RISK PATIENT WILL DEMO INDEP PERFORMANCE OF STANDING THEREX AND BALANCE ACTIVITY IN 4 WEEKS TO PROMOTE LE STABILITY AND ACTIVITY TOLERANCE PATIENT WILL DEMONSTRATE NORMAL HEALING FOLLOWING SURGERY WITH NO COMPLICATIONS BY DISCHARGE. PT GOAL: PATIENT WILL DEMONSTRATE OPTIMAL OUTCOMES INCLUDING INCREASED ROM AND STRENGTH WITH NO COMPLICATIONS FOLLOWING MAGON BY DISCHARGE. Goal Provider Goal - OT STG: PATIENT WILL DEMONSTRATE IMPROVED BATHING WITH SUPERVISION AND CUES WITHIN 2 WEEKS. OT LTG: PATIENT WILL DEMONSTRATE IMPROVED ABILITY TO PERFORM BATHING/SHOWERING FROM MIN ASSIST TO INDEPENDENT WITHIN 4 WEEKS. OT STG: PATIENT WILL DEMONSTRATE IMPROVED SHOWER TRANSFERS WITH SUPERVISION WITHIN 2 WEEKS. OT LTG: PATIENT WILL DEMONSTRATE IMPROVED ABILITY TO PERFORM BATH/SHOWER TRANSFER FROM CGA TO INDEPENDENT WITHIN 4 WEEKS. OT STG: PATIENT WILL DEMONSTRATE IMPROVED UE HEP EVIDENCED BY INCORPORATING INTO SELF MANAGEMENT ROUTINE WITH SUPERVISION AND CUES WITHIN 2 WEEKS. OT LTG: PATIENT WILL DEMONSTRATE THE ABILITY TO COMPLETE A THERAPEUTIC TASK ORIENTED PROGRAM TO RESTORE PHYSICAL FUNCTION/HEALTH MANAGEMENT FROM N/A TO INDEPENDENT WITHIN 4 WEEKS. PATIENT/CAREGIVER WILL BE ABLE TO IMPLEMENT OCCUPATIONAL THERAPY EDUCATION RECOMMENDATIONS SPECIFIC TO FALL REDUCTION FOR IMPROVED ADL/IADL COMPLETION AND HOME SAFETY BY DISCHARGE. Reason for Visit [facility]ENDENT IN THE COMMUNITY Encounters Start Date/Time End Date/Time Encounter Type Admission Type Attending Clinicians Care Facility Care Department Encounter ID Discharge Date Discharge Status Discharge Condition Discharge Reason Percent Goals Met 2020-02-07 00:00:00 2020-04-04 00:00:00 Outpatient NEW ADMISSION KEV GILBERT [facility] [id number] 2020-04-04 00:00:00 DISCHARGE TO HOME OR SELF CARE INDEPENDEN T IN THE COMMUNITY HH OR PAL- GOALS MET 82.93
--- NOTE | 2024-04-19 18:45 | PC.NURSE ---
denies any SOB, more anxiety attack ran out of his Ativan that he is on for chronic anxiety 6 days ago.
--- NOTE | 2024-04-19 19:27 | ED.GENADULT ---
HPI - General Adult General Chief complaint: Dyspnea Stated complaint: difficult breathing 99 ROOM air Time Seen by Provider: 04/19/24 19:08 Source: patient and EMS Mode of arrival: EMS Limitations: no limitations History of Present Illness ED Provider: Dr. Alma Delia Phillips HPI narrative: Patient comes to the emergency room via ambulance complaining of anxiety. Patient states that 8 days ago he ran out of AtZuli. Patient states that he missed his appointment with his psychiatrist who has seen for 20+ years. Patient states that a few months ago he had hip surgery, was in rehab, then sent to an apartment where his by himself, has no family or friends who help him. Patient states that in his apartment he can not move around, can not take showers because his apartment complex does not have appropriate handicap facilities. Patient states that he has not take a shower in over a month because he just can not get to the community bathroom. Also, patient states that he has transportation issues and misses appointments. Patient requesting case management. Patient denies chest pain or shortness of breath. Patient complaining of feeling anxious. Related Data Home Medications ?Medication ?Instructions ?Recorded ?Confirmed acetaminophen 325 mg tablet 650 mg PO Q4H PRN Fever Or Pain 09/30/23 03/02/24 (Tylenol) diclofenac sodium 1 % topical gel 4 g topical TID pain 09/30/23 03/02/24 gabapentin 100 mg capsule 300 mg PO TID PAIN 09/30/23 03/02/24 melatonin 10 mg tablet 10 mg PO BEDTIME insomnia 09/30/23 03/02/24 polyethylene glycol 3350 17 17 g PO DAILY Constipation 09/30/23 01/05/24 gram/dose oral powder (Miralax) simethicone 80 mg chewable tablet 80 mg PO Q8H PRN Indigestion 09/30/23 03/02/24 divalproex 500 mg tablet,delayed 500 mg PO BEDTIME 11/09/23 03/02/24 release (Depakote) fluticasone propionate 50 1 spray intranasal BID allergies 11/09/23 03/02/24 mcg/actuation nasal spray,suspension nystatin-triamcinolone 100,000 1 appl topical BID PRN Rash 11/09/23 03/02/24 unit/g-0.1 % topical cream pantoprazole 40 mg tablet,delayed 40 mg PO DAILY@0630 11/09/23 03/02/24 release vibegron 75 mg tablet (Gemtesa) 75 mg PO DAILY 11/09/23 03/02/24 tamsulosin 0.4 mg capsule 0.4 mg PO DAILY 12/26/23 03/02/24 venlafaxine 150 mg 150 mg PO DAILY 12/26/23 03/02/24 capsule,extended release 24 hr (Effexor XR) venlafaxine 37.5 mg 37.5 mg PO DAILY 12/26/23 03/02/24 capsule,extended release 24 hr (Effexor XR) acetaminophen 650 mg rectal 650 mg PA Q4H PRN GENERAL 03/02/24 03/02/24 suppository DISCOMFORT/ TEMP 101 PA GREATER bisacodyl 10 mg rectal suppository 10 mg PA DAILY PRN for no BM if 03/02/24 03/02/24 MOM ineffective docusate sodium 100 mg capsule 100 mg PO BID 03/02/24 03/02/24 (Colace) lidocaine 4 % topical patch 1 patch topical DAILY 03/02/24 03/02/24 loratadine 10 mg tablet 10 mg PO DAILY allergies 03/02/24 03/02/24 naloxone 0.4 mg/mL injection 0.4 mg subcut Q3M PRN overdose / 03/02/24 03/02/24 solution sedation/ unresponsive polyvinyl alcohol 1.4 % eye drops 1 drp ophthalmic (eye) BID dry eyes 03/02/24 03/02/24 (Artificial Tears (polyvinyl alcohol)) sodium phosphates 19 gram-7 118 ml PA DAILY PRN no BM & if 03/02/24 03/02/24 gram/118 mL enema (Fleet Enema) bisacodyl supp ineffective Previous Rx's ?Medication ?Instructions ?Recorded syringe with needle, safety 3 mL #100 ea 06/02/21 25 gauge x 5/8 (BD Safety-Jackie Detachable Needle) apixaban 5 mg tablet 5 mg PO BID 90 days #180 tabs 12/24/23 metoprolol tartrate 25 mg tablet 12.5 mg PO BID #45 tabs 12/24/23 Allergies Allergy/AdvReac Type Severity Reaction Status Date / Time carisoprodol [From Soma] Allergy Mild MENTAL Verified 04/19/24 18:02 STATUS CHANGE, BECOMES AGGRESIVE codeine [Codeine] Allergy Mild STOMACH Verified 04/19/24 18:02 UPSET, RASH gabapentin AdvReac Intermediate lousy Verified 04/19/24 18:02 feeling Review of Systems Review of Systems: Constitutional : No Weight loss, No Fever, No Chills, No Night Sweats, No Fatigue, No Malaise ENT/Mouth : No Hearing loss, No Ear Pain, No Nasal Congestion, No Sinus Pain, No Hoarseness, No sore throat, No Rhinorrhea, No Swallowing Difficulty Eyes: No Eye Pain, No Swelling, No Redness, No Foreign Body, No Discharge, No Vision Changes Cardiovascular : No Chest Pain, No SOB, No Dyspnea on Exertion, No Orthopnea, No Edema, No Palpitations Respiratory : No Cough, No Sputum, No Wheezing, No Smoke Exposure, No Dyspnea Gastrointestinal : No Nausea, No Vomiting, No Diarrhea, No Constipation, No abdominal Pain, No Hematochezia, No Melena Genitourinary : no irregular bleeding, No Dysuria, No Urinary Frequency, No Hematuria, No Urinary Incontinence, No Urgency, No Flank Pain, No Urinary Flow Changes, No Hesitancy Musculoskeletal : No joint pain, No Myalgias, No Joint Swelling Skin : No Skin Lesions, No rash Neuro : No Weakness, No Numbness, No Paresthesias, No Loss of Consciousness, No Dizziness, No Headache Psych : Complaining of anxiety, possibly withdrawing of benzodiazepines, No Depression, No SI/HI/AH/VH, No Social Issues, Heme/Lymph: No Bruising, No Bleeding,No Lymphadenopathy Endocrine : No Polyuria, No Polydipsia, No Temperature Intolerance [facility] Past Medical History Medical History Incisional hernia Premature atrial complexes Shortness of breath Rash Asthma exacerbation Leukocytosis Serum potassium elevated Low vitamin D level Headache Fatigue Moderate recurrent major depression Hospital discharge follow-up Chest tightness Dyspnea on exertion Allergic bronchitis Generalized anxiety disorder Tinea cruris SOB (shortness of breath) on exertion Constipation Atrial fibrillation Knee fracture, left Wedge compression fracture of L1 vertebra Prostate cancer Iron deficiency anemia Obstructive sleep apnea Vitamin D deficiency Diverticular disease Obesity (BMI 30-39.9) Peptic ulcer disease Degenerative disc disease GERD (gastroesophageal reflux disease) Anxiety and depression Vitamin B12 deficiency Gout Hypertension Fatigue Dysuria Surgical History History of colonoscopy History of hemiarthroplasty of left hip H/O rectal polypectomy History of knee replacement procedure of left knee H/O hernia repair History of pyloroplasty History of bowel resection History of cholecystectomy Family History Family History Father Diabetes Acute kidney failure Glaucoma Mother Lung cancer Social History Social History Household Members: None Housing: Residential Housing Other:: independent living Do you presently have visiting nurse or other home services: No Unable to assess alcohol history related to: Unknown Alcohol intake: never Comment: 1:1 sitter Patient Tobacco Use Status: Former Tobacco user Tobacco use type: Cigar Smoked in Last 30 Days: No e-Cigarette/Vaping Use: Currently Using Second Hand Smoke Exposure: No Use of substances other than those prescribed or required for medical reasons: No Advance Directives: Yes Advance Directives on File: Yes Advance Directives Date on File: 07/03/22 service: No Current occupational status: retired Cognitive needs: No Hearing needs: Yes Vision needs: Yes Physical Exam ED Vital Signs: Vital Signs - 24 hr 04/19/24 17:59 04/19/24 20:07 Temperature 97.4 F Pulse Rate 114 H 109 H Respiratory Rate 22 H 22 H Blood Pressure 140/106 H 130/86 Pulse Oximetry 100 97 Oxygen Delivery Method Room Air Room Air BMI result Body Mass Index 35.5 Const Other: Appearance: Alert. Oriented X3. No acute distress. Eyes: Pupils equal, round and reactive to light. ENT: Pharynx normal. Neck: Normal inspection. Neck supple. No lymph nodes noted. No crepitus CVS: Normal heart rate and rhythm. Pulses normal. Normal S1 and S2 Respiratory: No respiratory distress. Breath sounds normal. No Wheezing. No rales Abdomen: Soft and nontender. No rigidity. No distention. Skin: Skin warm and dry. Normal skin color. Normal skin turgor. Extremities: No lower extremity edema. No Lacerations. No Rash Neuro: Oriented X 3. No motor deficit. No sensory deficit. Moving all extremities. No slurred speech. CN 2 through 12 grossly intact Psych: calm, cooperative, normal affect Course Course Course Narrative: All of patient's labs pending Patient requesting case management for arrangements with his current living situation, especially to get help to get his medications on time and get to his appointments Patient is not SI or HI Case management consult pending Medications Administered Discontinued Medications Generic Name Dose Route Start Last Admin Trade Name Wade PRN Reason Stop Dose Admin Lorazepam 1 mg 04/19/24 19:26 04/19/24 19:30 Lorazepam 1 Mg Tablet PO 04/19/24 19:27 1 mg ONCE ONE Administration Medical Decision Making Medical Decision Making [facility] Narrative: My interpretation of labs: Patient's hematology at baseline, chemistry within normal limits -patient denies any chest pain or shortness of breath. Patient asked to go to the bathroom, patient's heart rate increased to the 140s, slowly coming down to the 120s. Patient is due for his oral metoprolol 25 mg, given to the patient Differential Diagnosis Differential Diagnoses: The differential diagnosis associated with the presentation includes (Anxiety, depression, housing difficulty) Lab Data 04/19/24 19:38 04/19/24 19:38 Labs: Lab Results 04/19/24 Range/Units 19:38 WBC 12.4 H (4.8-10.8) X10*3/uL RBC 4.71 D (4.60-5.80) X10*6/uL Hgb 10.3 L (14.0-18.0) g/dl Hct 34.0 L (42.0-52.0) % MCV 72.2 L (80.0-98.0) fL MCH 21.9 L (27.0-33.0) pg MCHC 30.3 L (31.0-36.0) g/dl RDW 19.0 H (11.0-16.0) % Plt Count 472 H (160-400) X10*3/uL MPV 9.6 (9.4-12.4) fL Immature Gran % (Auto) 0.4 (0.0-0.4) % Neut % (Auto) 60.5 (45-73) % Lymph % (Auto) 26.9 (20-40) % [place] % (Auto) 10.5 (2-11) % Eos % (Auto) 1.0 (0-4) % Baso % (Auto) 0.7 (0-2) % Lymph # (Auto) 3.3 (1.2-4.9) X10*3/uL [place] # (Auto) 1.3 H (0.1-1.2) X10*3/uL Eos # (Auto) 0.1 (0.0-0.4) X10*3/uL Baso # (Auto) 0.1 (0.0-0.2) X10*3/uL Abs Immat Gran (auto) 0.05 H (0.00-0.03) X10*3/uL Absolute Neuts (auto) 7.5 (2.0-8.3) x10*3/uL Absolute Nucleated RBC 0.000 (0.0-0.012) X10*3/uL Nucleated RBC % (auto) 0.0 (0.0-0.2) /100WBC Sodium 141 (135-145) mmol/L Potassium 4.0 (3.3-5.1) mmol/L Chloride 102 (96-108) mmol/L Carbon Dioxide 24 (22-29) mmol/L Anion Gap 19 (12-20) BUN 18 H (9-16) mg/dL Creatinine 0.87 (0.5-1.4) mg/dL Estim Creat Clear Calc 78.6 Estimated GFR > 60 Random Glucose 89 (60-115) mg/dL Calcium 9.5 D (8.4-10.2) mg/dL Total Bilirubin 0.5 (0.0-1.0) mg/dL Direct Bilirubin 0.2 (0.0-0.5) mg/dL AST 20 (5-37) U/L ALT 21 (0-40) U/L Alkaline Phosphatase 86 (39-117) U/L Total Protein 7.2 (6.5-8.0) g/dL Albumin 4.1 (3.5-5.0) g/dL Urine Color Yellow Urine Appearance Clear Urine pH 7.5 (5.0-9.0) Ur Specific [place] <= 1.005 (1.005-1.025) Urine Protein Negative (Neg-Trace) mg/dL Urine Glucose (UA) Negative (Negative) mg/dL Urine Ketones Negative (Negative) mg/dL Urine Blood Negative (Negative) Urine Nitrite Negative (Negative) Ur Leukocyte Esterase Negative (Negative) Discharge Plan Discharge Clinical Impression: Anxiety Patient Disposition: Still a Patient Prescriptions: No Action (DME) BD Safety-Jackie Detachable Needl 3 mL 25 gauge x 5/8 syringe See Rx Instructions .ROUTE .MEDSUPPLY Qty: 100 12RF Rx Instructions: As directed diclofenac sodium 1 % Gel 4 g TOPICAL TID Rx Instructions: Apply topically to right hip. acetaminophen [Tylenol] 325 mg Tablet 650 mg PO Q4H PRN (Reason: Fever Or Pain) Rx Instructions: Discomfort/temp 101 or greater. gabapentin 100 mg Capsule 300 mg PO TID polyethylene glycol 3350 [Miralax] 17 gram/dose Powder 17 g PO DAILY Rx Instructions: Mix with 4-6 Oz of fluid of choice. simethicone 80 mg Tablet,Chewable 80 mg PO Q8H PRN (Reason: Indigestion) melatonin 10 mg Tablet 10 mg PO BEDTIME polyvinyl alcohol [Artificial Tears (polyvin alc)] 1.4 % Drops 1 drp ophthalmic (eye) BID bisacodyl 10 mg Suppository 10 mg PA DAILY PRN (Reason: for no BM if MOM ineffective) Fleet Enema 19-7 gram/118 mL Enema 118 ml PA DAILY PRN (Reason: no BM & if bisacodyl supp ineffective) docusate sodium [Colace] 100 mg Capsule 100 mg PO BID loratadine 10 mg Tablet 10 mg PO DAILY lidocaine 4 % Adhesive Patch,Medicated 1 patch TOPICAL DAILY Rx Instructions: Apply to left hip topically one time a day for pain acetaminophen 650 mg Suppository 650 mg PA Q4H PRN (Reason: GENERAL DISCOMFORT/ TEMP 101 PA GREATER ) Rx Instructions: MAX DAILY DOSE NOT TO EXCEED 3GM DAY FROM ALL SOURCES naloxone 0.4 mg/mL Solution 0.4 mg SUBCUT Q3M PRN (Reason: overdose / sedation/ unresponsive) Rx Instructions: NTExceed 10 mg total dose/episode divalproex [Depakote] 500 mg tablet,delayed release (DR/EC) 500 mg PO BEDTIME pantoprazole 40 mg tablet,delayed release (DR/EC) 40 mg PO DAILY@0630 nystatin-triamcinolone 100,000-0.1 unit/g-% cream 1 appl topical BID PRN (Reason: Rash) fluticasone propionate 50 mcg/actuation spray,suspension 1 spray intranasal BID Gemtesa 75 mg tablet 75 mg PO DAILY metoprolol tartrate 25 mg Tablet 12.5 mg PO BID Qty: 45 0RF Protocol: Hold for SBP/HR < HOLD for SBP < : 120 HOLD for HR < : 60 Rx Instructions: hold for SBP < 120 and pulse < 60 apixaban 5 mg tablet 5 mg PO BID 90 Days Qty: 180 2RF venlafaxine [Effexor XR] 150 mg capsule,extended release 24hr 150 mg PO DAILY tamsulosin 0.4 mg capsule 0.4 mg PO DAILY venlafaxine [Effexor XR] 37.5 mg capsule,extended release 24hr 37.5 mg PO DAILY Print Language: Ukrainian
[2024-04-19] MEDS: LORazepam 1 MG TABLET PO (19:30)
[2024-04-19 19:42] LABS: MANUAL DIFF FLAG NO
[2024-04-19 19:46] LABS: Appearance Urine Clear; Basophils Absolute Auto 0.1 X10*3/uL (0.0-0.2); Basophils Percent Auto 0.7 % (0-2); Color Urine Yellow; Eosinophils Absolute Auto 0.1 X10*3/uL (0.0-0.4); Glucose Urine UA Negative (Negative); Hemoglobin 10.3 g/dl (14.0-18.0); Imm Gran Abs Auto 0.05 X10*3/uL (0.00-0.03); Imm Gran Pct Auto 0.4 % (0.0-0.4); Leukocyte Esterase Urine Negative (Negative); Lymphocytes Absolute Auto 3.3 X10*3/uL (1.2-4.9); Lymphocytes Percent Auto 26.9 % (20-40); Mean Corpuscular HGB Conc 30.3 g/dl (31.0-36.0); Mean Corpuscular Hemoglobin 21.9 pg (27.0-33.0); Mean Corpuscular Volume 72.2 fL (80.0-98.0); Mean Platelet Volume 9.6 fL (9.4-12.4); Monocytes Absolute Auto 1.3 X10*3/uL (0.1-1.2); Monocytes Percent Auto 10.5 % (2-11); Neutrophils Absolute Auto 7.5 x10*3/uL (2.0-8.3); Neutrophils Percent Auto 60.5 % (45-73); Nitrite Urine Negative (Negative); PH 7.5 (5.0-9.0); Platelet Count 472 X10*3/uL (160-400); Red Blood Count 4.71 X10*6/uL (4.60-5.80); Specific Gravity - Urine <= 1.005 (1.005-1.025); Urine Blood Negative (Negative); Urine Ketones Negative (Negative); Urine Protein Negative (Neg-Trace); White Blood Count 12.4 X10*3/uL (4.8-10.8)
[2024-04-19 20:00] LABS: Alanine Aminotransferase 21 U/L (0-40); Albumin Level 4.1 g/dL (3.5-5.0); Alkaline Phosphatase 86 U/L (39-117); Anion Gap 19 (12-20); Aspartate Amino Transferase 20 U/L (5-37); Bilirubin Direct 0.2 mg/dL (0.0-0.5); Bilirubin Total 0.5 mg/dL (0.0-1.0); Blood Urea Nitrogen 18 mg/dL (9-16); Calcium 9.5 mg/dL (8.4-10.2); Carbon Dioxide 24 mmol/L (22-29); Chloride 102 mmol/L (96-108); Creatinine Clr Calc Pharmacy 78.6; Estimated Glomerular Filt Rate > 60; Glucose Random 89 mg/dL (60-115); Sodium 141 mmol/L (135-145); Total Protein 7.2 g/dL (6.5-8.0)
--- NOTE | 2024-04-19 20:02 | ECG_ITS ---
Test Reason : TACHY Blood Pressure : / mmHG Vent. Rate : 118 BPM Atrial Rate : 000 BPM P-R Int : 000 ms QRS Dur : 076 ms QT Int : 332 ms P-R-T Axes : 000 003 027 degrees QTc Int : 465 ms Atrial fibrillation with rapid ventricular response Possible Lateral infarct (cited on or before 18-DEC-2022) Abnormal ECG When compared with ECG of 19-APR-2024 18:11, Criteria for Septal infarct are no longer Present Nonspecific T wave abnormality now evident in Inferior leads Referred By: Alma Delia Phillips Electronically Signed By:Reynold Ybarra
[2024-04-19 20:07] VITALS: BP 130/86; PULSE 109; RESP 22; O2SAT 97
[2024-04-19 20:55] VITALS: BP 107/80; PULSE 123
[2024-04-19] MEDS: Metoprolol Tartrate 25 MG TABLET PO (20:55)
[2024-04-19 21:18] LABS: Troponin-I High Sensitivity 4.2 ng/L (<3.5-35.0)
[2024-04-19 21:22] LABS: B Type Natriuretic Peptide 73 pg/mL (<100)
[2024-04-20] VITALS (8 sets, daily range): BP systolic 94–117; BP diastolic 52–79; PULSE 61–73; RESP 13–21; TEMP 36.6–37; O2SAT 92–100
[2024-04-20] MEDS: Calcium Carbonate 750 MG TAB.CHEW PO (05:02)
--- NOTE | 2024-04-20 07:49 | PC.NURSE ---
pt is currently awake and eating his breakfast
--- NOTE | 2024-04-20 08:26 | PC.NURSE ---
pt assisted to the commode to have a bowel movement, pt has diarrhea-pt reports because he ran out of his ativan and now he is withdrawing from the Ativan according to the pt
--- NOTE | 2024-04-20 08:49 | PC.NURSE ---
called pharmacy to do his med reconciliation
[2024-04-20 10:46] LABS: COVID-19 Test Negative (Negative); IDNOW Serial# 55D5AD1C
--- NOTE | 2024-04-20 10:50 | PC.NURSE ---
physical therapy at bedside for evaluation
--- NOTE | 2024-04-20 11:46 | PC.NURSE ---
report given to Crista CASANOVA in overflow
--- NOTE | 2024-04-20 12:04 | PHA.MEDREC ---
Addendum entered by Deep Pickard RPh 04/20/24 12:17: MED REC CHECKED BY [facility] Original Note: Pharmacy Consult ? Medication Reconciliation Pharmacy has completed the medication reconciliation. Spoke with patient and he confirmed his medication. Patient confirmed he is not taking the Buspirone tablets anymore and hasn't since about the 1st week he got them. He stated the effects the medication was giving to him was not great. He confirmed he is still taking the Gabapentin 300mg tab and states he is taking it twice a day. I asked him about the Metoprolol Tartrate 25mg tab for HBP and the patient was confused and stated he is still taking the Amlodipine 2.5mg tab once daily and doesn't remember every starting to take Metoprolol for HBP. He states he took his medications yesterday.
--- NOTE | 2024-04-20 12:34 | PC.NURSE ---
pt brought to from ED to OVF 1- pt a&ox3, QUILEUTE, pt rr equl/non labored- lungs clear, pt QUILEUTE, anxious and wanting his medications provider notified that med req has been completed, pt given lunch, case management in speaking with patient, call mcknight within reach, plan of care ongoing.
--- NOTE | 2024-04-20 12:39 | PHA.MEDREC ---
Pharmacy Consult ? Medication Reconciliation Pharmacy has completed the medication reconciliation[facility]
--- NOTE | 2024-04-20 12:59 | MHC.CM.ED ---
Received case management consult overnight. Patient came to the ER due to difficulty breathing. Work up essentially negative. Patient verbalized that he ran out of his anxiety meds 8 days ago. Physical therapy eval completed. Home services are recommended. Patient is well-known to CM from frequent ER visits. Patient was d/c'd from [facility] on 03/31 with resumption of [facility] for physical therapy and occupational therapy. Met with patient in regards to discharge planning. Patient is hard of hearing at baseline and does not have his hearing aides with him. Patient states he doesn't have food in his home and hasn't showered in 5 months. T/W reminded patient he d/c'd from [facility] on 03/31. Patient states he doesn't have any food in his home and won't be able to eat tonight. T/W inquired about what he has been doing for food since he was d/c'd from [facility] 20 days ago. Patient states Yg was helping him but he had Covid. Patient states he has been eating cereal. T/W offered to make referral to [facility] to see if there are any other services he would benefit from. Patient stated he hadn't received his home medications. T/W explained pharmacist was getting medication entered. Patient fixated on the fact that he doesn't have food in his apartment and he can't walk . T/W spoke with patient's friend/HCP, Yg. Yg spoke with patient yesterday. Patient had no complaints at this time. Yg reports patient has a girl that comes weekly to help with groceries and cleaning up. Yg also reports patient asked him for transport to a doctor's appointment. gY informed patient that he was not able to help because he had a doctors appointment himself. Patient was upset Yg was not able to help him at that time. T/W confirmed patient is active with [facility] for PT and OT. [facility] referral made to see if there are any additional resources patient will qualify for. [facility] is unlikely to accept patient back because he is at baseline. Nisha JOSHUA aware and will see patient. Continue to monitor for d/c needs.
[2024-04-20] MEDS: Apixaban 5 MG TABLET PO ×2 (13:30→21:11)
[2024-04-20] MEDS: Tamsulosin HCL 0.4 MG CAPSULE PO (13:30)
[2024-04-20] MEDS: Venlafaxine HCl ER 37.5 MG CAP.ER.24H PO (13:30)
[2024-04-20] MEDS: Gabapentin 300 MG CAPSULE PO ×2 (13:30→21:11)
[2024-04-20] MEDS: Venlafaxine HCl ER 150 MG CAP.ER.24H PO (13:30)
[2024-04-20] MEDS: LORazepam 1 MG TABLET PO ×2 (13:31→21:11)
[2024-04-20] MEDS: Metoprolol Tartrate 12.5 MG HALFTAB PO ×2 (13:31→21:11)
[2024-04-20] MEDS: Nystatin/Triamcinolone Cream 15 GM TUBE 1 APPL TOPICAL ×2 (13:34→21:17)
--- NOTE | 2024-04-20 19:55 | PC.NURSE ---
Pt a&ox4, no signs of distress. Pt resting in bed, watching TV. Plan of care ongoing.
[2024-04-20] MEDS: Melatonin 3 MG TABLET 9 MG PO (21:11)
[2024-04-20] MEDS: Divalproex Sodium 500 MG TABLET.DR PO (21:11)
--- NOTE | 2024-04-20 21:20 | PC.NURSE ---
Pt medicated per jun Pt requested and lights dimmed. Plan of care ongoing.
[2024-04-21 06:02] VITALS: BP 106/59; PULSE 53; RESP 16; TEMP 36; O2SAT 98
[2024-04-21 07:28] VITALS: BP 109/70; PULSE 66; RESP 17; TEMP 36.3; O2SAT 100
[2024-04-21] MEDS: Gabapentin 300 MG CAPSULE PO (09:59)
[2024-04-21] MEDS: Tamsulosin HCL 0.4 MG CAPSULE PO (09:59)
[2024-04-21] MEDS: LORazepam 1 MG TABLET PO (09:59)
[2024-04-21] MEDS: Nystatin/Triamcinolone Cream 15 GM TUBE 1 APPL TOPICAL (10:00)
--- NOTE | 2024-04-21 11:33 | MHC.CM.PN ---
Pt will return to home today via [facility] at 2p with existing VNA services and a referral to [facility] for possible additional home services. Pt is in agreement with plan.
[2024-04-21] MEDS: Metoprolol Tartrate 12.5 MG HALFTAB PO (11:50)
[2024-04-21] MEDS: Venlafaxine HCl ER 150 MG CAP.ER.24H PO (11:50)
[2024-04-21] MEDS: Venlafaxine HCl ER 37.5 MG CAP.ER.24H PO (11:50)
[2024-04-21] MEDS: Apixaban 5 MG TABLET PO (11:50)
--- NOTE | 2024-04-21 11:52 | PC.NURSE ---
delay in medication administration d/t pt being in overflow/medication not being readily available in [facility]. medication now administered by this float RN. pt refused omeprazole administration d/t it being too late in the day. pt otherwise resting in stretcher in no apparent distress. pending S transportation - ETA 1400.
[2024-04-21 14:00] VITALS: BP 119/78; PULSE 84; RESP 18; TEMP 36.4; O2SAT 97
[2024-04-21 14:15] VITALS: BP 119/78; PULSE 84; RESP 18; TEMP 36.4; O2SAT 97
== END 2024-04-21 14:16 | disposition home or self-care (01) ==
PROVIDERS: Physician Assistant; Emergency Provider Emergency Medicine; PCP Internal Medicine
DX: F41.9 Anxiety disorder, unspecified (principal); I48.0 Paroxysmal atrial fibrillation; R00.0 Tachycardia, unspecified; R06.02 Shortness of breath; R94.31 Abnormal electrocardiogram [ECG] [EKG]; R26.2 Difficulty in walking, not elsewhere classified; Z11.52 Encounter for screening for COVID-19; Z79.899 Other long term (current) drug therapy; Z87.891 Personal history of nicotine dependence
CPT/HCPCS: 36415; 80048; 80076; 81003; 83880; 84484; 85025; 87635; 93005; 97161; 99285

== ENCOUNTER → 2024-04-19 17:58 | Outpatient (BNV) | payer MEDICARE, SELFPAY | PROVIDERS: Emergency Provider Emergency Medicine; PCP Internal Medicine; Visit Provider Internal Medicine Cardiovascular Disease | DX: R94.31 Abnormal electrocardiogram [ECG] [EKG] (principal) | CPT/HCPCS: 93010 ==

== ENCOUNTER 2024-04-23 14:10 | Outpatient (AMB) | payer MEDICARE, SELFPAY ==
--- NOTE | 2024-04-23 14:13 | MHC.PC.OV ---
Vital Signs 04/23/24 14:14 Height 5 ft 10 in Weight 220 lb BMI 31.6 BP 128/82 Blood Pressure Location Lt brachial Position Sitting Pulse 81 Pulse Source Pulse Oximeter Pulse Oximetry (%) 97 Oxygen Delivery Method Room Air Intake Visit Reasons: Shortness of breath Revenue Integrity Analyst Required: No Accompanied by: Self / Same As Patient Allergies carisoprodol [From Soma] Allergy (Mild, Verified 04/23/24 14:23) MENTAL STATUS CHANGE, BECOMES AGGRESIVE codeine [Codeine] Allergy (Mild, Verified 04/23/24 14:23) STOMACH UPSET, RASH gabapentin Adverse Reaction (Intermediate, Verified 04/23/24 14:23) lousy feeling Tobacco use date assessed: 04/01/24 Fall risk assessment: No Falls in past year Last assessed Fall Risk: 04/23/24 Dental Screening Dental Screen Date: 04/01/24 HPI Shortness of breath HPI Details The patient is a 78-year-old male presenting with shortness of breath. He reports experiencing difficulties with breathing that have persisted for approximately a month and a half, with significant worsening over the past week and a half. The symptoms are exacerbated with activity, such as using a walker, which results in a significant increase in breathlessness. There is no accompanying wheezing or chest pain, and the patient denies recent hospitalizations for the same condition. However, he recalls past occurrences of blood clots in his lungs, which are why he is currently on a blood thinner, Eliquis. Additionally, the patient is known to have atrial fibrillation. He mentions a low blood count, specifically referring to anemia, which was recently noted at a level of 10, compared to a normative value of 14. No recent episodes of swelling have been observed. The patient further mentions anxiety as a potential exacerbating factor for his symptoms. [facility] Medical History Incisional hernia Premature atrial complexes Shortness of breath Rash Asthma exacerbation Leukocytosis Serum potassium elevated Low vitamin D level Headache Fatigue Moderate recurrent major depression Hospital discharge follow-up Chest tightness Dyspnea on exertion Allergic bronchitis Generalized anxiety disorder Tinea cruris SOB (shortness of breath) on exertion Constipation Atrial fibrillation Knee fracture, left Wedge compression fracture of L1 vertebra Prostate cancer Iron deficiency anemia Obstructive sleep apnea Vitamin D deficiency Diverticular disease Obesity (BMI 30-39.9) Peptic ulcer disease Degenerative disc disease GERD (gastroesophageal reflux disease) Anxiety and depression Vitamin B12 deficiency Gout Hypertension Fatigue Dysuria Surgical History History of colonoscopy History of hemiarthroplasty of left hip H/O rectal polypectomy History of knee replacement procedure of left knee H/O hernia repair History of pyloroplasty History of bowel resection History of cholecystectomy Family History Father Diabetes Acute kidney failure Glaucoma Mother Lung cancer Social History Household Members: None Housing: Custodial Housing Other:: independent living Do you presently have visiting nurse or other home services: No Unable to assess alcohol history related to: Unknown Alcohol intake: never Comment: 1:1 sitter Patient Tobacco Use Status: Former Tobacco user Tobacco use type: Cigar e-Cigarette/Vaping Use: Currently Using Second Hand Smoke Exposure: No Advance Directives Date on File: 07/03/22 service: No Current occupational status: retired Cognitive needs: No Hearing needs: Yes Vision needs: Yes Questionnaire Thrive Questionnaire Date Thrive assessed: 03/03/24 MARIZA-7 AMB Questionnaire MARIZA-7 Date MARIZA - 7 assessed: 04/01/24 Source: Developed by Drs. Víctor Srivastava, [place], Shorty Jorge and colleagues, with an educational bronson from [employer]. Physical exam (Primary Care) Vital Signs: Last Vital Signs Pulse 81 04/23/24 14:14 BP 128/82 04/23/24 14:14 Pulse Ox 97 04/23/24 14:14 Oxygen Delivery Method Room Air 04/23/24 14:14 BMI result Body Mass Index 31.6 Tobacco/Smoking Status: Tobacco use Status Tobacco use date assessed 04/01/24 04/23/24 14:15 Patient Tobacco Use Status Former Tobacco user 04/23/24 14:15 Tobacco use type Cigar 04/23/24 14:15 e-Cigarette/Vaping Use Currently Using 04/23/24 14:15 Thrive Assessment: Date of Thrive Assessment Date Thrive assessed 03/03/24 04/23/24 14:15 Const General: alert; No acute distress Eyes Conjunctivae: conjunctivae normal Resp Auscultation: clear to auscultation bilaterally Cardio Rate: regular rate Rhythm: regular rhythm GI Inspection: Yes normal to inspection Extrem General: Yes normal to inspection and No edema Coding Level of Care Code Est Pt Level 4 (26448) Complex EM visit Add On G2211 Diagnoses Essential hypertension I10 Hypertension type: essential hypertension Gastroesophageal reflux disease without esophagitis K21.9 Esophagitis presence: without esophagitis Iron deficiency anemia D50.9 Peptic ulcer disease K27.9 Generalized anxiety disorder F41.1 Paroxysmal atrial fibrillation I48.0 Atrial fibrillation type: paroxysmal Assessment & Plan Assessment & Plan (1) Hypertension: Code(s): I10 - Essential (primary) hypertension Category: Medical Qualifiers: Hypertension type: essential hypertension Qualified Code(s): I10 - Essential (primary) hypertension (2) GERD (gastroesophageal reflux disease): Code(s): K21.9 - Gastro-esophageal reflux disease without esophagitis Category: Medical Qualifiers: Esophagitis presence: without esophagitis Qualified Code(s): K21.9 - Gastro-esophageal reflux disease without esophagitis (3) Iron deficiency anemia: Code(s): D50.9 - Iron deficiency anemia, unspecified Category: Medical (4) Peptic ulcer disease: Comment: 19 years old duodenal, June 2019 GI series GERD abnormal esophageal motility and vallecular pooling Code(s): K27.9 - Peptic ulcer, site unspecified, unspecified as acute or chronic, without hemorrhage or perforation Category: Medical (5) Generalized anxiety disorder: Comment: Therapist Dr. Lassiter psychiatrist [place] Code(s): F41.1 - Generalized anxiety disorder Category: Medical (6) Atrial fibrillation: Comment: post surgery 11/2019 ? Pulmonary embolism Code(s): I48.91 - Unspecified atrial fibrillation Category: Medical Qualifiers: Atrial fibrillation type: paroxysmal Qualified Code(s): I48.0 - Paroxysmal atrial fibrillation Plan - Schedule an appointment with cardiology to evaluate the patient's cardiovascular status, specifically regarding atrial fibrillation. - Monitor anemia status and follow up with complete blood count to assess hemoglobin and hematocrit levels. - Prescribe anxiety medication at a reduced dosage of once daily, with a gradual tapering approach from the current twice-daily dosage. - Recommend continued use of anticoagulation therapy Eliquis) for prevention of further thromboembolic events. - Conduct an electrocardiogram EKG) to assess current cardiac rhythm and function. - Follow up on the efficacy of oxygenation despite reported dyspnea, considering a comprehensive cardiac and respiratory evaluation. - Provide patient education on the management of anxiety and breathing techniques to alleviate dyspnea. Orders: Referrals Cardiology Referral I48.0 - Paroxysmal atrial fibrillation
--- OUTSIDE RECORDS SUMMARY | 2024-04-23 14:13 | XMS_ITS | Clinical Summary ---
Author Organization Unknown Care Team Providers Care Tap Grinder Name Role Phone PO INTERSTATE, LORENVER Unavailable Unavaila jake MOREL RN, MEHDI Unavailable Unavailable BEATRIZ PT, GLO Unavailable Unavailable [place] OT, PIPER Unavailable Unavailable ADRIANNA RN, REMINGTON Unavailable Unavailable OFELIA RN, KEV Unavailable Unavailable Payers Payer Name Policy Type Policy Number Effective Date Expira tion Date MEDICARE.NGS.PDGM [id number] Problems Condition Name Condition Details Condition Category [...] OF NICOTINE DEPENDENCE Active 04-29 00:00: 00 DETENTION (CURRENT) USE OF ANTICOAGULAN TS Active 2019-04 [...] capsule,del ayed release 12-16 00:00: 00 Yes [id number] Per instruc tions DAILY Per instructio ns DAILY (route: oral) Med Classific ation: Gastroint estinal Therapy Agents fexofenadin e 180 mg tablet 12-14 00:00: 00 Yes [id number] Per instruc tions ONCE A DAY NEEDED Per instructio ns ONCE A DAY NEEDED (route: oral) Med Classific ation: Respirato ry Therapy Agents alfuzosin ER 10 mg tablet,exte nded release 24 hr 6 00:00: 00 02-06 23:59 :00 No [id number] Per instruc tions EVERY Per instructio ns EVERY (route: oral) Med Classific ation: Genitouri nary Therapy divalproex 500 mg tablet,lelo yed release 10-19 00:00: 00 Yes [id number] Per instruc tions EVERY Per instructio ns EVERY (route: oral) Med Classific ation: Central Nervous System Agents venlafaxine ER 150 mg capsule,ext ended release 24 hr 10-19 00:00: 00 Yes [id number] Per instruc tions ONCE A DAY Per instructio ns ONCE A DAY (route: oral) Med Classific ation: Central Nervous System Agents Ativan 2 mg tablet 2019-04 00:00: 00 Yes [id number] 2 mg EVERY 12 HOURS 2 mg EVERY 12 HOURS (route: oral) Med Classific ation: Central Nervous System Agents trazodone 50 mg tablet 2019-04 00:00: 00 02-17 23:59 :00 No [id number] 25 mg BEDTIME 25 mg BEDTIME (route: oral) Med Classific ation: Central Nervous System Agents amlodipine 10 mg tablet 2019-04 00:00: 00 Yes [id number] 1 tablet DAILY 1 tablet DAILY (route: oral) Med Classific ation: Cardiovas cular Therapy Agents apixaban 5 mg tablet 2019-04 00:00: 00 Yes [id number] 1 tablet 2 TIMES DAILY 1 tablet 2 TIMES DAILY (route: oral) Med Classific ation: Hematolog ical Agents baclofen 10 mg tablet 2019-04 00:00: 00 Yes [id number] 1 tablet 3 TIMES DAILY 1 tablet 3 TIMES DAILY (route: oral) Med Classific ation: Locomotor System docusate sodium 100 mg tablet 2019-04 00:00: 00 Yes [id number] 1 tablet 2 TIMES DAILY 1 tablet 2 TIMES DAILY (route: oral) Med Classific ation: Gastroint estinal Therapy Agents hydrocodone 5 mg-acetamin ophen 325 mg tablet 2019-04 00:00: 00 Yes [id number] 1 tablet EVERY 6 HOURS 1 tablet EVERY 6 HOURS (route: oral) Med Classific ation: Analgesic , Anti-infl ammatory or Antipyret ic Lidocaine Plus 4 % topical cream 2019-04 00:00: 00 Yes [id number] Per instruc tions 3 TIMES DAILY Per instructio ns 3 TIMES DAILY (route: topical) Med Classific ation: Dermatolo gical trazodone 50 mg tablet 2019-04 00:00: 00 Yes [id number] 1 tablet BEDTIME 1 tablet BEDTIME (route: oral) Med Classific ation: Central Nervous System Agents Uroxatral 10 mg tablet,exte nded release 2019-04 00:00: 00 03-18 23:59 :00 No [id number] 1 tablet EVERY OTHER DAY 1 tablet EVERY OTHER DAY (route: oral) Med Classific ation: Genitouri nary Therapy ciprofloxac in 250 mg tablet 2019-04 00:00: 00 03-10 23:59 :00 No [id number] 1 tablet 2 TIMES DAILY 1 tablet 2 TIMES DAILY (route: oral) Med Classific ation: Anti-Infe ctive Agents alfuzosin ER 10 mg tablet,exte nded release 24 hr 2019-04 00:00: 00 Yes [id number] 1 tablet BEDTIME 1 tablet BEDTIME (route: [...] HOSPITAL ADMISSION. ALL DISCIPLINES (EXCEPT [facility]) MAY PROVIDE TELEHEALTH PHONE/REMOTE/VIRTUAL VISITS IN [...] HOSPITAL ADMISSION. ALL DISCIPLINES (EXCEPT [facility]) MAY PROVIDE TELEHEALTH PHONE/REMOTE/VIRTUAL VISITS IN [...] EMERGENCY SERVICES CALL [facility] NURSE TO KEEP SAUSAGE COOKER SYMPTOM REPORT FOR VISIBLE REFERENCE NOTIFY SKILLED [...] EMERGENCY SERVICES CALL [facility] NURSE TO KEEP SAUSAGE COOKER SYMPTOM REPORT FOR VISIBLE REFERENCE NOTIFY SKILLED [...] PRN VISITS ; PATIENT REQUIRES 3 PRN SENIOR LIVING VISITS FOR COMPLICATIONS R/T PAIN MANAGEMENT, AND ALTERED MOBILITY [code = PRN VISITS; PATIENT REQUIRES 3 PRN SENIOR LIVING VISITS FOR COMPLICATIONS R/T PAIN MANAGEMENT, AND ALTERED MOBILITY] Future Scheduled Test AGENCY MAY PERFORM A RESUMPTION OF CARE VISIT FOLLOWING ANY HOSPITAL ADMISSION. ALL DISCIPLINES (EXCEPT [facility]) MAY PROVIDE TELEHEALTH PHONE/REMOTE/VIRTUAL VISITS IN [...] HOSPITAL ADMISSION. ALL DISCIPLINES (EXCEPT [facility]) MAY PROVIDE TELEHEALTH PHONE/REMOTE/VIRTUAL VISITS IN [...] HOSPITAL ADMISSION. ALL DISCIPLINES (EXCEPT [facility]) MAY PROVIDE TELEHEALTH PHONE/REMOTE/VIRTUAL VISITS IN [...] FOLLOWING ANY HOSPITAL ADMISSION. ALL DISCIPLINES (EXCEPT CLIN[facility] STUDY MANAGER) MAY PROVIDE TELEHEALTH PHONE/REMOTE/VIRTUAL VISITS IN LIEU [...] ROM AND STRENGTH WITH NO COMPLICATIONS FOLLOWING MAGNO BY DISCHARGE. Goal Provider Goal - OT [...] 00:00:00 Outpatient NEW ADMISSION [facility] [id number] 2020-04-04 00:00:00 DISCHARGE TO HOME OR SELF CARE INDEPENDEN T IN THE COMMUNITY HH OR PAL- GOALS MET 82.93
[2024-04-23 14:14] VITALS: BP 128/82; PULSE 81; O2SAT 97; BMI 31.6
== END 2024-04-23 14:56 | disposition home or self-care (01) ==
PROVIDERS: PCP Internal Medicine; Visit Provider Internal Medicine
DX: I10 Essential (primary) hypertension (principal); K21.9 Gastro-esophageal reflux disease without esophagitis; I48.0 Paroxysmal atrial fibrillation; D50.9 Iron deficiency anemia, unspecified; K27.9 Peptic ulcer, site unspecified, unspecified as acute or chronic, without hemorrhage or perforation; F41.1 Generalized anxiety disorder

== ENCOUNTER → 2024-04-23 14:10 | Outpatient (BNVA) | payer MEDICARE, SELFPAY | PROVIDERS: PCP Internal Medicine; Visit Provider Internal Medicine | DX: I10 Essential (primary) hypertension (principal); K21.9 Gastro-esophageal reflux disease without esophagitis; D50.9 Iron deficiency anemia, unspecified; K27.9 Peptic ulcer, site unspecified, unspecified as acute or chronic, without hemorrhage or perforation; F41.1 Generalized anxiety disorder; I48.0 Paroxysmal atrial fibrillation | CPT/HCPCS: 99212 ==

== ENCOUNTER 2024-04-27 14:37 | Emergency (ER) | payer MEDICARE, SELFPAY ==
--- NOTE | ~2024-04-27 | XR_ITS ---
Examination: Chest, AP pelvis and bilateral knee. CLINICAL INDICATION: Fall. Pain. COMPARISON: Left hip 03/01/2024. FINDINGS: AP pelvis one view: There is a dislocated left hip prosthesis unchanged to 03/01/2024. The left femoral head prosthesis is missing. The femoral stem is good position. There is cephalic migration of proximal femur in relation to the glenoid. No fractures seen. There are radiation seeds visualized the prostate gland. Left knee 2 views: There is a total left knee prosthesis with prosthetic components in satisfactory alignment. There is no periprosthetic fracture or loosening seen. No joint effusion. The soft tissues are normal. Right knee 2 views: There is no visible acute fracture or dislocation. There is mild loss of patellofemoral compartment joint space. No loose bodies or joint effusion seen. There is no visible subluxation. The soft tissues are normal. Chest one view: The lungs are hypoexpanded but clear. The heart size is enlarged. Pulmonary vascularity is normal. No gross bony abnormality seen XR/XR knee LT 2V IMPRESSION: Dislocated left hip prosthesis with cephalic migration of proximal femur in relation to glenoid unchanged to previous exam. The left femoral head prosthesis is missing. It is unchanged as well. Mild degenerative changes right patellofemoral compartment. No acute fracture or dislocation right knee. Total left knee prosthesis with prosthetic components in satisfactory alignment. No periprosthetic fractures bodies. Hypoexpanded lungs without acute process. Electronically signed by: Kamron Oh MD 04/27/2024 04:13 PM [facility]
--- NOTE | ~2024-04-27 | XR_ITS ---
Examination: Chest, AP pelvis and bilateral knee. CLINICAL INDICATION: Fall. Pain. COMPARISON: Left hip 03/01/2024. FINDINGS: AP pelvis one view: There is a dislocated left hip prosthesis unchanged to 03/01/2024. The left femoral head prosthesis is missing. The femoral stem is good position. There is cephalic migration of proximal femur in relation to the glenoid. No fractures seen. There are radiation seeds visualized the prostate gland. Left knee 2 views: There is a total left knee prosthesis with prosthetic components in satisfactory alignment. There is no periprosthetic fracture or loosening seen. No joint effusion. The soft tissues are normal. Right knee 2 views: There is no visible acute fracture or dislocation. There is mild loss of patellofemoral compartment joint space. No loose bodies or joint effusion seen. There is no visible subluxation. The soft tissues are normal. Chest one view: The lungs are hypoexpanded but clear. The heart size is enlarged. Pulmonary vascularity is normal. No gross bony abnormality seen XR/XR knee RT 2V IMPRESSION: Dislocated left hip prosthesis with cephalic migration of proximal femur in relation to glenoid unchanged to previous exam. The left femoral head prosthesis is missing. It is unchanged as well. Mild degenerative changes right patellofemoral compartment. No acute fracture or dislocation right knee. Total left knee prosthesis with prosthetic components in satisfactory alignment. No periprosthetic fractures bodies. Hypoexpanded lungs without acute process. Electronically signed by: Kamron Oh MD 04/27/2024 04:13 PM EST
--- NOTE | ~2024-04-27 | XR_ITS ---
Examination: Chest, AP pelvis and bilateral knee. CLINICAL INDICATION: Fall. Pain. COMPARISON: Left hip 03/01/2024. FINDINGS: AP pelvis one view: There is a dislocated left hip prosthesis unchanged to 03/01/2024. The left femoral head prosthesis is missing. The femoral stem is good position. There is cephalic migration of proximal femur in relation to the glenoid. No fractures seen. There are radiation seeds visualized the prostate gland. Left knee 2 views: There is a total left knee prosthesis with prosthetic components in satisfactory alignment. There is no periprosthetic fracture or loosening seen. No joint effusion. The soft tissues are normal. Right knee 2 views: There is no visible acute fracture or dislocation. There is mild loss of patellofemoral compartment joint space. No loose bodies or joint effusion seen. There is no visible subluxation. The soft tissues are normal. Chest one view: The lungs are hypoexpanded but clear. The heart size is enlarged. Pulmonary vascularity is normal. No gross bony abnormality seen XR/XR chest 1V IMPRESSION: Dislocated left hip prosthesis with cephalic migration of proximal femur in relation to glenoid unchanged to previous exam. The left femoral head prosthesis is missing. It is unchanged as well. Mild degenerative changes right patellofemoral compartment. No acute fracture or dislocation right knee. Total left knee prosthesis with prosthetic components in satisfactory alignment. No periprosthetic fractures bodies. Hypoexpanded lungs without acute process. Electronically signed by: Kamron Oh MD 04/27/2024 04:13 PM [facility]
--- NOTE | ~2024-04-27 | CT_ITS ---
CLINICAL HISTORY: neck pain CT cervical spine without contrast. COMPARISON: CT cervical spine dated 01/05/24 at 13:56 EDT FINDINGS: Normal vertebral body alignment. Stable superior endplate compression fracture of the T1 vertebral body with approximately 30 percent height loss. Nuchal ligament ossification. Skull base and intracranial structures appear normal. Calcified plaque present at the carotid bulb on the left. C2-C3: Facet joint arthrosis. Mild right neural foraminal narrowing. C3-C4: Uncovertebral joint hypertrophy. Facet joint arthrosis. Axeyntvg-vo-lxztjh bilateral neural foraminal narrowing. C4-C5: Uncovertebral joint hypertrophy. Facet joint arthrosis. Severe right and gkmzltuk-pd-pxiwmu left neural foraminal narrowing. C5-C6: Anterior marginal osteophytes. Loss of disc space height. Uncovertebral joint hypertrophy. Mild bilateral neural foraminal narrowing. C6-C7: Anterior marginal osteophytes. Loss of disc space height. Posterior disc osteophyte complex. Uncovertebral joint hypertrophy. Moderate bilateral neural foraminal narrowing. IMPRESSION: 1. No evidence of acute injury to the cervical spine. 2. Chronic superior endplate compression fracture of the T1 vertebral body with approximately 30 percent height loss, stable since prior imaging. This document has been electronically signed by: Sinan Padron MD on 04/27/2024 17:05:04
--- NOTE | ~2024-04-27 | XR_ITS ---
Examination: Chest, AP pelvis and bilateral knee. CLINICAL INDICATION: Fall. Pain. COMPARISON: Left hip 03/01/2024. FINDINGS: AP pelvis one view: There is a dislocated left hip prosthesis unchanged to 03/01/2024. The left femoral head prosthesis is missing. The femoral stem is good position. There is cephalic migration of proximal femur in relation to the glenoid. No fractures seen. There are radiation seeds visualized the prostate gland. Left knee 2 views: There is a total left knee prosthesis with prosthetic components in satisfactory alignment. There is no periprosthetic fracture or loosening seen. No joint effusion. The soft tissues are normal. Right knee 2 views: There is no visible acute fracture or dislocation. There is mild loss of patellofemoral compartment joint space. No loose bodies or joint effusion seen. There is no visible subluxation. The soft tissues are normal. Chest one view: The lungs are hypoexpanded but clear. The heart size is enlarged. Pulmonary vascularity is normal. No gross bony abnormality seen XR/XR pelvis 1-2V IMPRESSION: Dislocated left hip prosthesis with cephalic migration of proximal femur in relation to glenoid unchanged to previous exam. The left femoral head prosthesis is missing. It is unchanged as well. Mild degenerative changes right patellofemoral compartment. No acute fracture or dislocation right knee. Total left knee prosthesis with prosthetic components in satisfactory alignment. No periprosthetic fractures bodies. Hypoexpanded lungs without acute process. Electronically signed by: Kamron Oh MD 04/27/2024 04:13 PM EST
--- NOTE | ~2024-04-27 | CT_ITS ---
CLINICAL HISTORY: head pain CT head without contrast. COMPARISON: CT head dated 03/01/24 at 13:19 EST FINDINGS: The visualized paranasal sinuses are clear. The visualized paranasal sinuses are clear. No calvarial fracture. Atherosclerotic intracranial vasculature. No evidence for mass or mass effect. No intracranial hemorrhage or abnormal extra-axial fluid collection. No CT evidence of acute infarct. The ventricles are proportional with the degree of moderate global cerebral volume loss without evidence of hydrocephalus. Basilar cisterns are patent. There are periventricular areas of low attenuation compatible with mild white matter small vessel disease. Posterior fossa appears unremarkable. IMPRESSION: 1. No acute intracranial findings. No significant interval change from prior imaging dated 03/01/2024. This document has been electronically signed by: Sinan Padron MD on 04/27/2024 17:07:17
--- NOTE | 2024-04-27 14:44 | ECG_ITS ---
Test Reason : FALL Blood Pressure : / mmHG Vent. Rate : 087 BPM Atrial Rate : 000 BPM P-R Int : 000 ms QRS Dur : 070 ms QT Int : 376 ms P-R-T Axes : 000 042 067 degrees QTc Int : 452 ms Poor data quality Possible Normal sinus rhythm with frequent Premature atrial complexes Possible Lateral infarct (cited on or before 18-DEC-2022) Abnormal ECG When compared with ECG of 19-APR-2024 20:04, poo Nonspecific T wave abnormality no longer evident in Inferior leads Referred By: Ayo Blanco Electronically Signed By:CONOR VALERO MD
[2024-04-27 14:47] VITALS: BP 125/86; PULSE 120; O2SAT 97
[2024-04-27 14:48] VITALS: BP 119/77; PULSE 81; RESP 16; TEMP 36.1; O2SAT 93; BMI 32.0
--- OUTSIDE RECORDS SUMMARY | 2024-04-27 15:19 | XMS_ITS | Clinical Summary ---
Author Organization Unknown Care Team Providers Care Commercial Insulator Name Role Phone PO INTERSTATE, LORENVER Unavailable Unavaila jake MOREL RN, MEHDI Unavailable Unavailable BEATRIZ PT, GLO Unavailable Unavailable [place] OT, PIPER Unavailable Unavailable ADRIANNA RN, REMINGTON Unavailable Unavailable OFELIA RN, KEV Unavailable Unavailable Payers Payer Name Policy Type Policy Number Effective Date Expira tion Date MEDICARE.NGS.PDGM [id number] Problems Condition Name Condition Details Condition Category [...] OF NICOTINE DEPENDENCE Active 04-29 00:00: 00 [facility] (CURRENT) USE OF ANTICOAGULAN TS Active 2019-04 [...] capsule,del ayed release 12-16 00:00: 00 Yes [id number] Per instruc tions DAILY Per instructio ns DAILY (route: oral) Med Classific ation: Gastroint estinal Therapy Agents fexofenadin e 180 mg tablet 12-14 00:00: 00 Yes [id number] Per instruc tions ONCE A DAY NEEDED Per instructio ns ONCE A DAY NEEDED (route: oral) Med Classific ation: Respirato ry Therapy Agents alfuzosin ER 10 mg tablet,exte nded release 24 hr 6 00:00: 00 02-06 23:59 :00 No [id number] Per instruc tions EVERY Per instructio ns EVERY (route: oral) Med Classific ation: Genitouri nary Therapy divalproex 500 mg tablet,lelo yed release 10-19 00:00: 00 Yes [id number] Per instruc tions EVERY Per instructio ns EVERY (route: oral) Med Classific ation: Central Nervous System Agents venlafaxine ER 150 mg capsule,ext ended release 24 hr 10-19 00:00: 00 Yes [id number] Per instruc tions ONCE A DAY Per instructio ns ONCE A DAY (route: oral) Med Classific ation: Central Nervous System Agents Ativan 2 mg tablet 2019-04 00:00: 00 Yes [id number] 2 mg EVERY 12 HOURS 2 mg EVERY 12 HOURS (route: oral) Med Classific ation: Central Nervous System Agents trazodone 50 mg tablet 2019-04 00:00: 00 02-17 23:59 :00 No [id number] 25 mg BEDTIME 25 mg BEDTIME (route: oral) Med Classific ation: Central Nervous System Agents amlodipine 10 mg tablet 2019-04 00:00: 00 Yes [id number] 1 tablet DAILY 1 tablet DAILY (route: oral) Med Classific ation: Cardiovas cular Therapy Agents apixaban 5 mg tablet 2019-04 00:00: 00 Yes [id number] 1 tablet 2 TIMES DAILY 1 tablet 2 TIMES DAILY (route: oral) Med Classific ation: Hematolog ical Agents baclofen 10 mg tablet 2019-04 00:00: 00 Yes [id number] 1 tablet 3 TIMES DAILY 1 tablet 3 TIMES DAILY (route: oral) Med Classific ation: Locomotor System docusate sodium 100 mg tablet 2019-04 00:00: 00 Yes [id number] 1 tablet 2 TIMES DAILY 1 tablet 2 TIMES DAILY (route: oral) Med Classific ation: Gastroint estinal Therapy Agents hydrocodone 5 mg-acetamin ophen 325 mg tablet 2019-04 00:00: 00 Yes [id number] 1 tablet EVERY 6 HOURS 1 tablet EVERY 6 HOURS (route: oral) Med Classific ation: Analgesic , Anti-infl ammatory or Antipyret ic Lidocaine Plus 4 % topical cream 2019-04 00:00: 00 Yes [id number] Per instruc tions 3 TIMES DAILY Per instructio ns 3 TIMES DAILY (route: topical) Med Classific ation: Dermatolo gical trazodone 50 mg tablet 2019-04 00:00: 00 Yes [id number] 1 tablet BEDTIME 1 tablet BEDTIME (route: oral) Med Classific ation: Central Nervous System Agents Uroxatral 10 mg tablet,exte nded release 2019-04 00:00: 00 03-18 23:59 :00 No [id number] 1 tablet EVERY OTHER DAY 1 tablet EVERY OTHER DAY (route: oral) Med Classific ation: Genitouri nary Therapy ciprofloxac in 250 mg tablet 2019-04 00:00: 00 03-10 23:59 :00 No [id number] 1 tablet 2 TIMES DAILY 1 tablet 2 TIMES DAILY (route: oral) Med Classific ation: Anti-Infe ctive Agents alfuzosin ER 10 mg tablet,exte nded release 24 hr 2019-04 00:00: 00 Yes [id number] 1 tablet BEDTIME 1 tablet BEDTIME (route: [...] FOLLOWING ANY HOSPITAL ADMISSION. ALL DISCIPLINES (EXCEPT [facility]) MAY PROVIDE TELEHEALTH PHONE/REMOTE/VIRTUAL VISITS IN LIEU [...] FOLLOWING ANY HOSPITAL ADMISSION. ALL DISCIPLINES (EXCEPT [facility]) MAY PROVIDE TELEHEALTH PHONE/REMOTE/VIRTUAL VISITS IN LIEU [...] EMERGENCY SERVICES CALL [facility] NURSE TO KEEP GEOLOGY TEACHER SYMPTOM REPORT FOR VISIBLE REFERENCE NOTIFY SKILLED [...] EMERGENCY SERVICES CALL [facility] NURSE TO KEEP GEOLOGY TEACHER SYMPTOM REPORT FOR VISIBLE REFERENCE NOTIFY SKILLED [...] PRN VISITS ; PATIENT REQUIRES 3 PRN [facility] VISITS FOR COMPLICATIONS R/T PAIN MANAGEMENT, AND ALTERED MOBILITY [code = PRN VISITS; PATIENT REQUIRES 3 PRN [facility] VISITS FOR COMPLICATIONS R/T PAIN MANAGEMENT, AND ALTERED MOBILITY] Future Scheduled Test AGENCY MAY PERFORM A RESUMPTION OF CARE VISIT FOLLOWING ANY HOSPITAL ADMISSION. ALL DISCIPLINES (EXCEPT [facility]) MAY PROVIDE TELEHEALTH PHONE/REMOTE/VIRTUAL VISITS IN LIEU [...] FOLLOWING ANY HOSPITAL ADMISSION. ALL DISCIPLINES (EXCEPT [facility]) MAY PROVIDE TELEHEALTH PHONE/REMOTE/VIRTUAL VISITS IN LIEU [...] FOLLOWING ANY HOSPITAL ADMISSION. ALL DISCIPLINES (EXCEPT [facility]) MAY PROVIDE TELEHEALTH PHONE/REMOTE/VIRTUAL VISITS IN LIEU [...] FOLLOWING ANY HOSPITAL ADMISSION. ALL DISCIPLINES (EXCEPT REGISTRAR ASSISTANT) MAY PROVIDE TELEHEALTH PHONE/REMOTE/VIRTUAL VISITS IN LIEU [...] PHYSICAL ACTIVITY (OT) FALL REDUCTION (OT)] Goal 2020-04-04 Patient Goal - TO IMPROVE AM BULATION Goal 2020-02-18 Patient Goal - TO IMPROVE [...] 2020-04-04 00:00:00 Outpatient NEW ADMISSION KEV [facility]ILB[facility] [id number] 2020-04-04 00:00:00 DISCHARGE TO HOME OR SELF CARE INDEPENDEN T IN THE COMMUNITY HH OR [facility]- GOALS MET 82.93
[2024-04-27 15:55] LABS: MANUAL DIFF FLAG NO
[2024-04-27 15:57] LABS: Basophils Absolute Auto 0.1 X10*3/uL (0.0-0.2); Basophils Percent Auto 0.7 % (0-2); Eosinophils Absolute Auto 0.1 X10*3/uL (0.0-0.4); Eosinophils Percent Auto 0.7 % (0-4); Hematocrit 29.3 % (42.0-52.0); Hemoglobin 8.7 g/dl (14.0-18.0); Imm Gran Abs Auto 0.04 X10*3/uL (0.00-0.03); Imm Gran Pct Auto 0.3 % (0.0-0.4); Lymphocytes Absolute Auto 2.7 X10*3/uL (1.2-4.9); Lymphocytes Percent Auto 23.1 % (20-40); Mean Corpuscular HGB Conc 29.7 g/dl (31.0-36.0); Mean Corpuscular Hemoglobin 21.6 pg (27.0-33.0); Mean Corpuscular Volume 72.9 fL (80.0-98.0); Mean Platelet Volume 9.6 fL (9.4-12.4); Monocytes Absolute Auto 1.3 X10*3/uL (0.1-1.2); Monocytes Percent Auto 10.7 % (2-11); Neutrophils Absolute Auto 7.6 x10*3/uL (2.0-8.3); Neutrophils Percent Auto 64.5 % (45-73); Platelet Count 464 X10*3/uL (160-400); Red Blood Count 4.02 X10*6/uL (4.60-5.80); Red Cell Distribution Width 18.9 % (11.0-16.0); White Blood Count 11.7 X10*3/uL (4.8-10.8)
[2024-04-27 16:01] LABS: INTERNATIONAL NORM RATIO 1.1 (0.9-1.1); Prothrombin Time 13.3 SEC (10.9-12.4)
[2024-04-27 16:04] LABS: Partial Thromboplastin Time 34.4 SEC (26.0-36.8)
[2024-04-27 16:09] LABS: Anion Gap 11 (12-20); Blood Urea Nitrogen 15 mg/dL (9-16); Calcium 8.7 mg/dL (8.4-10.2); Carbon Dioxide 27 mmol/L (22-29); Chloride 107 mmol/L (96-108); Creatinine Clr Calc Pharmacy 84.7; Estimated Glomerular Filt Rate > 60; Glucose Random 83 mg/dL (60-115); Potassium 4.5 mmol/L (3.3-5.1); Sodium 140 mmol/L (135-145)
--- NOTE | 2024-04-27 16:09 | ED_ITS ---
HPI - General Adult General Chief complaint: Fall Stated complaint: PER AIDE FALL,BLE/BACK ABR,ALTERED,-HS,+THINNERS Time Seen by Provider: 04/27/24 14:44 Source: patient and EMS History of Present Illness ED Provider: Francis HPI narrative: 78-year-old male with past medical history of AFib on Xarelto presenting for fall. Patient was found on the ground by staff this morning. It is unclear how long patient was on the ground for. Patient states that he fell out of his blood in the morning and that he had been on the ground for a short period of time and was unable to get up. Patient is complaining of neck pain and knee pain. He denies LOC, chest pain, shortness of breath. Related Data Home Medications ?Medication ?Instructions ?Recorded ?Confirmed gabapentin 100 mg capsule 300 mg PO BID PAIN 09/30/23 04/20/24 melatonin 10 mg tablet 10 mg PO BEDTIME insomnia 09/30/23 04/20/24 divalproex 500 mg tablet,delayed 500 mg PO BEDTIME 11/09/23 04/20/24 release (Depakote) pantoprazole 40 mg tablet,delayed 40 mg PO DAILY@0630 11/09/23 04/20/24 release vibegron 75 mg tablet (Gemtesa) 75 mg PO DAILY 11/09/23 04/20/24 tamsulosin 0.4 mg capsule 0.4 mg PO DAILY 12/26/23 04/20/24 venlafaxine 150 mg 150 mg PO DAILY 12/26/23 04/20/24 capsule,extended release 24 hr (Effexor XR) venlafaxine 37.5 mg 37.5 mg PO DAILY 12/26/23 04/20/24 capsule,extended release 24 hr (Effexor XR) diclofenac sodium 1 % topical gel 1 ea topical TID 04/20/24 04/20/24 nystatin-triamcinolone 100,000 1 appl topical BID 04/20/24 04/20/24 unit/g-0.1 % topical cream buspirone 5 mg tablet 10 mg PO DAILY 04/27/24 buspirone 5 mg tablet 15 mg PO BEDTIME 04/27/24 hydroxyzine HCl 25 mg tablet 25 mg PO Q8H PRN Anxiety 04/27/24 Previous Rx's ?Medication ?Instructions ?Recorded syringe with needle, safety 3 mL #100 ea 06/02/21 25 gauge x 5/8 (BD Safety-Jackie Detachable Needle) apixaban 5 mg tablet 5 mg PO BID 90 days #180 tabs 12/24/23 metoprolol tartrate 25 mg tablet 12.5 mg PO BID #45 tabs 12/24/23 lorazepam 1 mg tablet 1 mg PO .QD #30 tabs 04/23/24 Allergies Allergy/AdvReac Type Severity Reaction Status Date / Time carisoprodol [From Soma] Allergy Mild MENTAL Verified 04/27/24 14:51 STATUS CHANGE, BECOMES AGGRESIVE codeine [Codeine] Allergy Mild STOMACH Verified 04/27/24 14:51 UPSET, RASH gabapentin AdvReac Intermediate lousy Verified 04/27/24 14:51 feeling Review of Systems 2 Review of Systems: Patient endorses neck pain and bilateral knee pain Yes all other systems are reviewed and are negative PMFSH Past Medical History Medical History Incisional hernia Premature atrial complexes Shortness of breath Rash Asthma exacerbation Leukocytosis Serum potassium elevated Low vitamin D level Headache Fatigue Moderate recurrent major depression Hospital discharge follow-up Chest tightness Dyspnea on exertion Allergic bronchitis Generalized anxiety disorder Tinea cruris SOB (shortness of breath) on exertion Constipation Atrial fibrillation Knee fracture, left Wedge compression fracture of L1 vertebra Prostate cancer Iron deficiency anemia Obstructive sleep apnea Vitamin D deficiency Diverticular disease Obesity (BMI 30-39.9) Peptic ulcer disease Degenerative disc disease GERD (gastroesophageal reflux disease) Anxiety and depression Vitamin B12 deficiency Gout Hypertension Fatigue Dysuria Surgical History History of colonoscopy History of hemiarthroplasty of left hip H/O rectal polypectomy History of knee replacement procedure of left knee H/O hernia repair History of pyloroplasty History of bowel resection History of cholecystectomy Family History Family History Father Diabetes Acute kidney failure Glaucoma Mother Lung cancer Social History Social History Household Members: None Housing: Shelter Housing Other:: independent living Do you presently have visiting nurse or other home services: No Unable to assess alcohol history related to: Unknown Alcohol intake: never Comment: 1:1 sitter Patient Tobacco Use Status: Former Tobacco user Tobacco use type: Cigar e-Cigarette/Vaping Use: Currently Using Second Hand Smoke Exposure: No Advance Directives: Yes Advance Directives on File: Yes Advance Directives Date on File: 07/03/22 Do you have a plan to hurt others: No Plan service: No Current occupational status: retired Cognitive needs: No Hearing needs: Yes Vision needs: Yes Physical Exam ED Vital Signs: Vital Signs - 24 hr 04/27/24 14:48 04/27/24 18:01 04/27/24 19:18 Temperature 97 F 97.7 F Pulse Rate 81 100 93 Respiratory Rate 16 14 22 H Blood Pressure 119/77 143/85 H 122/79 Pulse Oximetry 93 95 98 Oxygen Delivery Method Room Air Room Air Room Air BMI result Body Mass Index 32.0 Well-appearing male in no acute distress Head atraumatic normocephalic; patient alert and oriented x4 Right C-spine paraspinal tenderness patient; no midline C-spine tenderness to palpation Lungs clear to auscultation bilaterally Normal S1-S2 regular rate and rhythm Ventral hernia noted to abdomen; abdomen otherwise soft and nontender Abrasions to bilateral anterior knees; full range of motion at knee and lower extremities neurovascularly intact Medications Administered Generic Name Dose Route Start Last Admin Trade Name Freq PRN Reason Stop Dose Admin Lorazepam 0.25 mg 04/27/24 16:16 04/27/24 16:26 Lorazepam 0.5 Mg Tablet PO 0.25 mg ONCE PRN Administration agitation Discontinued Medications Generic Name Dose Route Start Last Admin Trade Name Freq PRN Reason Stop Dose Admin Lorazepam 0.25 mg 04/27/24 16:05 04/27/24 16:10 Lorazepam 0.5 Mg Tablet PO 04/27/24 16:06 0.25 mg ONCE ONE Administration Melatonin 3 mg 04/27/24 20:00 04/27/24 20:05 Melatonin 3 Mg Tablet PO 04/27/24 20:01 3 mg ONCE ONE Administration Quetiapine Fumarate 25 mg 04/27/24 19:59 04/27/24 20:05 Quetiapine Fumarate 25 Mg Tablet PO 04/27/24 20:00 25 mg ONCE ONE Administration Medical Decision Making Medical Decision Making MDM Narrative: 78yo male presenting for fall. Rule out the following; head/neck trauma, chest/pelvis trauma, knee trauma, electrolyte/metabolic disturbance, rhado, underlying infection - labs and imaging studies ordered - labs notable for mild leukocytosis, normal electrolytes, stable h&H - Ativan ordered for agitation - I reviewed pt's plain films which were notable for clear lungs without overt pneumo, chronic left hip dislocation, no acute knee trauma; radiologist impression notable for unchanged left hip dislocation and clear hypoexpanded lungs - I reviewed patient's head and cervical CT and did not appreciate any acute signs of fracture/head bleed; radiologist impression reads chronic superior endplate compression fracture of the T1 vertebral body Patient has been persistently agitated requiring redirection, Ativan and Seroquel and is not steady on his feet. I do not feel that he is safe to be discharged home as he will likely fall again. Consult to case management of placed; patient pending safe dispo Lab Data 04/27/24 17:32 04/27/24 15:51 Labs: Lab Results 04/27/24 04/27/24 04/27/24 Range/Units 15:51 16:40 17:32 WBC 11.7 H 16.6 H (4.8-10.8) X10*3/uL RBC 4.02 L 4.38 L (4.60-5.80) X10*6/uL Hgb 8.7 L 9.5 L (14.0-18.0) g/dl Hct 29.3 L 31.8 L (42.0-52.0) % MCV 72.9 L 72.6 L (80.0-98.0) fL MCH 21.6 L 21.7 L (27.0-33.0) pg MCHC 29.7 L 29.9 L (31.0-36.0) g/dl RDW 18.9 H 19.0 H (11.0-16.0) % Plt Count 464 H 504 H (160-400) X10*3/uL MPV 9.6 9.2 L (9.4-12.4) fL Immature Gran % (Auto) 0.3 0.5 H (0.0-0.4) % Neut % (Auto) 64.5 61.7 (45-73) % Lymph % (Auto) 23.1 25.8 (20-40) % [place] % (Auto) 10.7 11.0 (2-11) % Eos % (Auto) 0.7 0.5 (0-4) % Baso % (Auto) 0.7 0.5 (0-2) % Lymph # (Auto) 2.7 4.3 (1.2-4.9) X10*3/uL [place] # (Auto) 1.3 H 1.8 H (0.1-1.2) X10*3/uL Eos # (Auto) 0.1 0.1 (0.0-0.4) X10*3/uL Baso # (Auto) 0.1 0.1 (0.0-0.2) X10*3/uL Abs Immat Gran (auto) 0.04 H 0.08 H (0.00-0.03) X10*3/uL Absolute Neuts (auto) 7.6 10.3 H (2.0-8.3) x10*3/uL Absolute Nucleated RBC 0.000 0.000 (0.0-0.012) X10*3/uL Nucleated RBC % (auto) 0.0 0.0 (0.0-0.2) /100WBC Smear Tech's Comments VERIFIED PT 13.3 H (10.9-12.4) SEC INR 1.1 (0.9-1.1) APTT 34.4 (26.0-36.8) SEC Sodium 140 (135-145) mmol/L Potassium 4.5 (3.3-5.1) mmol/L Chloride 107 (96-108) mmol/L Carbon Dioxide 27 (22-29) mmol/L Anion Gap 11 L (12-20) BUN 15 (9-16) mg/dL Creatinine 0.87 (0.5-1.4) mg/dL Estim Creat Clear Calc 84.7 Estimated GFR > 60 Random Glucose 83 (60-115) mg/dL Calcium 8.7 D (8.4-10.2) mg/dL Total Creatine Kinase 68 (38-174) U/L Troponin I High Sens 3.6 (<3.5-35.0) ng/L Urine Color Yellow Urine Appearance Clear Urine pH 8.0 (5.0-9.0) Ur Specific [place] 1.010 (1.005-1.025) Urine Protein Negative (Neg-Trace) mg/dL Urine Glucose (UA) Negative (Negative) mg/dL Urine Ketones Negative (Negative) mg/dL Urine Blood Negative (Negative) Urine Nitrite Negative (Negative) Ur Leukocyte Esterase Negative (Negative) Discharge Plan Discharge Clinical Impression: Abrasion of knee, bilateral, Neck pain Fall Qualifiers: Encounter type: initial encounter Qualified Code(s): W19.XXXA - Unspecified fall, initial encounter Patient Disposition: Still a Patient Instructions: Fall Prevention for Older Adults (ED), Fall Prevention (ED) Additional Instructions: Please follow up with your primary care provider in the next 24-48 hours for reassessment. If you develop any new or worsening symptoms please return to the emergency department. You should have repeat CBC in 1 week to followup on your anemia Prescriptions: No Action (DME) BD Safety-Jackie Detachable Needl 3 mL 25 gauge x 5/8 syringe See Rx Instructions .ROUTE .MEDSUPPLY Qty: 100 12RF Rx Instructions: As directed gabapentin 100 mg Capsule 300 mg PO BID melatonin 10 mg Tablet 10 mg PO BEDTIME nystatin-triamcinolone 100,000-0.1 unit/g-% Cream 1 appl TOPICAL BID Rx Instructions: apply to rash on groin and foreskin diclofenac sodium 1 % Gel 1 ea TOPICAL TID Rx Instructions: RIGHT HIP lorazepam 1 mg tablet 1 mg PO .QD Qty: 30 0RF Rx Instructions: tapering today 04/23/2024 divalproex [Depakote] 500 mg tablet,delayed release (DR/EC) 500 mg PO BEDTIME pantoprazole 40 mg tablet,delayed release (DR/EC) 40 mg PO DAILY@0630 Gemtesa 75 mg tablet 75 mg PO DAILY metoprolol tartrate 25 mg Tablet 12.5 mg PO BID Qty: 45 0RF Protocol: Hold for SBP/HR < HOLD for SBP < : 120 HOLD for HR < : 60 Rx Instructions: hold for SBP < 120 and pulse < 60 apixaban 5 mg tablet 5 mg PO BID 90 Days Qty: 180 2RF venlafaxine [Effexor XR] 150 mg capsule,extended release 24hr 150 mg PO DAILY tamsulosin 0.4 mg capsule 0.4 mg PO DAILY venlafaxine [Effexor XR] 37.5 mg capsule,extended release 24hr 37.5 mg PO DAILY buspirone 5 mg tablet 15 mg PO BEDTIME buspirone 5 mg tablet 10 mg PO DAILY hydroxyzine HCl 25 mg tablet 25 mg PO Q8H PRN (Reason: Anxiety) Print Language: Greenlandic
[2024-04-27] MEDS: LORazepam 0.5 MG TABLET 0.25 MG PO ×2 (16:10→16:26)
[2024-04-27 16:16] LABS: Troponin-I High Sensitivity 3.6 ng/L (<3.5-35.0)
[2024-04-27 16:54] LABS: Appearance Urine Clear; Color Urine Yellow; Glucose Urine UA Negative (Negative); Leukocyte Esterase Urine Negative (Negative); Nitrite Urine Negative (Negative); Urine Blood Negative (Negative); Urine Ketones Negative (Negative); Urine Protein Negative (Neg-Trace)
--- NOTE | 2024-04-27 17:28 | PC.NURSE ---
pt alert to person/place, yelling at baseline, pt medicated for anxiety per orders, labs drawn, imaging performed, pt has been cleared by provider to discharge back to facility.
[2024-04-27 17:37] LABS: Basophils Absolute Auto 0.1 X10*3/uL (0.0-0.2); Basophils Percent Auto 0.5 % (0-2); Eosinophils Absolute Auto 0.1 X10*3/uL (0.0-0.4); Eosinophils Percent Auto 0.5 % (0-4); Hematocrit 31.8 % (42.0-52.0); Hemoglobin 9.5 g/dl (14.0-18.0); Imm Gran Abs Auto 0.08 X10*3/uL (0.00-0.03); Imm Gran Pct Auto 0.5 % (0.0-0.4); Lymphocytes Absolute Auto 4.3 X10*3/uL (1.2-4.9); Lymphocytes Percent Auto 25.8 % (20-40); MANUAL DIFF FLAG SCAN; Mean Corpuscular HGB Conc 29.9 g/dl (31.0-36.0); Mean Corpuscular Hemoglobin 21.7 pg (27.0-33.0); Mean Corpuscular Volume 72.6 fL (80.0-98.0); Mean Platelet Volume 9.2 fL (9.4-12.4); Monocytes Absolute Auto 1.8 X10*3/uL (0.1-1.2); Neutrophils Absolute Auto 10.3 x10*3/uL (2.0-8.3); Neutrophils Percent Auto 61.7 % (45-73); Platelet Count 504 X10*3/uL (160-400); Red Blood Count 4.38 X10*6/uL (4.60-5.80); SCAN SMEAR FLAG 1; White Blood Count 16.6 X10*3/uL (4.8-10.8)
[2024-04-27 17:54] LABS: SLIDE REVIEW VERIFIED
[2024-04-27 18:01] VITALS: BP 143/85; PULSE 100; RESP 14; TEMP 36.5; O2SAT 95
[2024-04-27 19:18] VITALS: BP 122/79; PULSE 93; RESP 22; O2SAT 98
[2024-04-27] MEDS: QUEtiapine Fumarate 25 MG TABLET PO (20:05)
[2024-04-27] MEDS: Melatonin 3 MG TABLET PO (20:05)
--- NOTE | 2024-04-27 20:05 | PC.NURSE ---
pts behavior- screaming out and attempting to climb oob, unable to follow instructions, provider was notified that this patient is going to home not to an SNF, provider wants pt/cm, pt medicated per order, pt currently denying pain/discomfort.
--- NOTE | 2024-04-27 20:28 | PC.NURSE ---
pt brought to overflow by this nurse and report given at bedside, pt transferred to hospital bed for comfort.
--- NOTE | 2024-04-27 20:31 | PC.NURSE ---
pharmacy called to do med req
[2024-04-27 20:49] LABS: Glucose, Whole Blood 95 mg/dL (60-115)
--- NOTE | 2024-04-27 22:19 | PHA.MEDREC ---
Addendum entered by Chandrakant López 04/28/24 10:53: [place] [place] [facility] and they said he didn't have any recent fills there. Called [facility] as well and he had filled Lorazepam, Hydroxyzine, and Buspirone there this month and nothing else since September/October/November. Original Note: Pharmacy Consult ? Medication Reconciliation Pharmacy has completed the medication reconciliation. Patient poor historian. Med rec completed via claim history and previous admissions discharges. Pharmacy to follow up with [facility] to see if he is filling mediacations there?
[2024-04-27 22:40] VITALS: RESP 20
--- NOTE | 2024-04-27 23:28 | PC.NURSE ---
assume care of pt, pt resting comfortably with eyes closed, breathing even and unlabored, no apparent distress noted at this time. call juan luis w/in reach. d/t pt's prior restlessness prior to my arrival, this RN will medicate when pt awakes on his own
[2024-04-28] MEDS: OLANZapine 10 MG TABLET PO (02:07)
--- NOTE | 2024-04-28 02:16 | PC.NURSE ---
pt awake and restless, trying to get out of bed to use the bathroom yelling for help, assist with urinal but mostly incont. pt too restless to use [place] cath or male purewick. assist with washing and changing bed. delayed manager of medical of zyprexa at this time. pt now resting comfortably in bed. bed alarm on, call juan luis w/in reach
[2024-04-28 06:00] VITALS: BP 116/75; PULSE 83; RESP 16; TEMP 36.6; O2SAT 93
--- NOTE | 2024-04-28 06:30 | PC.NURSE ---
pt incont of urine, total bed change, assist w/ washing. male purewick in place
--- NOTE | 2024-04-28 08:29 | PC.NURSE ---
male purewick ineffective. pt incontinent of a large amount of urine. pericare performed. new sheets/pads applied. [place] catheter placed. pt otherwise offers no complaints. resting in bed in no apparent distress. no sob/wob noted. respirations even/unlabored. bed alarm turned on for safety precautions. call mcknight placed within reach.
[2024-04-28 10:10] VITALS: BP 116/75; PULSE 83; O2SAT 93
--- NOTE | 2024-04-28 10:12 | PC.NURSE ---
PT eval being completed at this time. [facility] is recommended per PT.
--- NOTE | 2024-04-28 10:18 | PC.NURSE ---
delay in medication administration d/t medication not being readily available in [facility]. medication delivered from pharmacy/administered per provider order.
--- NOTE | 2024-04-28 11:12 | MHC.CM.PN ---
This CM met with pt, he lives alone, agreeable to [facility] services being set up. [facility] accepted pt, pts daughter will transport him home today.
--- NOTE | 2024-04-28 11:43 | PC.NURSE ---
pt refusing services recommended by PT/CM. pt states that he does not want to go to [facility] and would rather have services set up at home. pt will be transported home via BLS around 1600 tonight. pt notified/aware of plan of care.
--- NOTE | 2024-04-28 13:08 | MHC.CM.PN ---
Addendum entered by Beatrice Mckeon 04/28/24 15:00: New HCP completed with pt, now on file. Pt named Eileen Maher (friend) as his new HCP [phone]. Original Note: This CM met with pt to discuss the discharge plan, PT has recommended [facility]. Pt is declining to go to [facility], and wants to return home with resumption of [facility] services. Pts HCP Yg notified of pts discharge plan. Pt will transport home via [facility] today.
[2024-04-28] MEDS: LORazepam 1 MG TABLET 2 MG PO (15:02)
[2024-04-28 16:19] VITALS: BP 141/86; PULSE 104; RESP 20; TEMP 36.4; O2SAT 94
[2024-04-28 16:22] VITALS: BP 141/86; PULSE 104; RESP 20; TEMP 36.4; O2SAT 94
--- NOTE | 2024-04-28 16:22 | PC.NURSE ---
report given to XIOMARA Elkins at this time. pt leaving facility.
== END 2024-04-28 16:22 | disposition home or self-care (01) ==
PROVIDERS: Emergency Provider Student in an Organized Health Care Education/Training Program
DX: S80.212A Abrasion, left knee, initial encounter (principal); S80.211A Abrasion, right knee, initial encounter; W19.XXXA Unspecified fall, initial encounter; Y93.9 Activity, unspecified; Y92.9 Unspecified place or not applicable; Y99.9 Unspecified external cause status; M54.2 Cervicalgia; M25.569 Pain in unspecified knee; I48.91 Unspecified atrial fibrillation; I10 Essential (primary) hypertension; Z79.899 Other long term (current) drug therapy; Z79.01 Long term (current) use of anticoagulants
CPT/HCPCS: 36415; 70450; 71045; 72125; 72170; 73560; 80048; 81003; 82550; 82947; 84484; 85025; 85610; 85730; 93005; 97162; 99285

== ENCOUNTER → 2024-04-27 14:44 | Outpatient (BNV) | payer MEDICARE, SELFPAY | PROVIDERS: Emergency Provider Student in an Organized Health Care Education/Training Program; Visit Provider Internal Medicine Cardiovascular Disease | DX: R94.31 Abnormal electrocardiogram [ECG] [EKG] (principal) | CPT/HCPCS: 93010 ==

== ENCOUNTER → 2024-04-27 14:49 | Outpatient (BNV) | payer MEDICARE, SELFPAY | PROVIDERS: Emergency Provider Student in an Organized Health Care Education/Training Program; Visit Provider Radiology Diagnostic Radiology | DX: M54.2 Cervicalgia (principal); R51.9 Headache, unspecified; R07.9 Chest pain, unspecified; M25.552 Pain in left hip; M25.569 Pain in unspecified knee | CPT/HCPCS: 70450; 71045; 72125; 72170; 73560 ==

== ENCOUNTER 2024-04-29 21:03 | Emergency (ER) | payer MEDICARE, SELFPAY ==
--- NOTE | ~2024-04-29 | CT_ITS ---
CLINICAL HISTORY: unwitnessed fall CT head without contrast Comparison: 04/27/2024 Findings: No new intra-axial mass, midline shift, hydrocephalus, or acute hemorrhage. Atrophy and white matter changes noted likely related to chronic microvascular ischemia. There is no sinus or mastoid fluid. The orbits are unremarkable. No skull fracture. IMPRESSION: 1. No acute intracranial findings This document has been electronically signed by: Sesar Mark MD on 04/29/2024 22:45:58
--- NOTE | ~2024-04-29 | XR_ITS ---
CLINICAL HISTORY: Fall 3 view, pelvis and left hip Comparison: CR/MD/SR - XR HIP LT W PEL1V - 03/01/24 13:32 EST Findings: No acute fracture injury identified. A left hip prosthesis is redemonstrated which appears similar in configuration as compared to the prior examination. The left acetabular component and left femoral stem component of the left hip prosthesis appear intact. The left femoral head/neck components of the prosthesis are not visualized on this examination. There is persistent superior migration of the proximal left femur with respect to the left acetabulum, unchanged. Brachytherapy beads redemonstrated over the prostate gland. Mesh material partially visualized over the mid to lower abdomen. Vascular calcifications are present. IMPRESSION: 1. Stable, chronic abnormalities of the left hip/left hip prosthesis as described above. No acute fracture injury identified. This document has been electronically signed by: Dustin Spears MD on 04/30/2024 00:02:50
--- NOTE | ~2024-04-29 | CT_ITS ---
CLINICAL HISTORY: unwitnessed fall CT cervical spine without contrast Comparison: 04/27/2024 Findings: Normal vertebral body alignment. Multiple level degenerative disc, facet, and uncovertebral joint change. No acute fractures or dislocations. Visualized intracranial contents are unremarkable. Soft tissues of the neck are normal. No consolidation or effusion at the lung apices. IMPRESSION: No acute findings. This document has been electronically signed by: Sesar Mark MD on 04/29/2024 22:50:31
[2024-04-29 21:05] VITALS: BP 158/98; PULSE 129; O2SAT 95
[2024-04-29 21:08] VITALS: BP 119/79; PULSE 126; RESP 20; TEMP 36.4; O2SAT 92; BMI 28.8
[2024-04-29 21:19] VITALS: BP 119/79; PULSE 126; RESP 20; TEMP 36.4; O2SAT 92
--- NOTE | 2024-04-29 21:22 | PC.NURSE ---
Pt. reports that he saw stars before he fell.
[2024-04-29 21:36] LABS: MANUAL DIFF FLAG NO
[2024-04-29 21:42] LABS: Basophils Absolute Auto 0.1 X10*3/uL (0.0-0.2); Basophils Percent Auto 0.8 % (0-2); Eosinophils Absolute Auto 0.1 X10*3/uL (0.0-0.4); Eosinophils Percent Auto 0.6 % (0-4); Hemoglobin 9.8 g/dl (14.0-18.0); Imm Gran Abs Auto 0.08 X10*3/uL (0.00-0.03); Imm Gran Pct Auto 0.6 % (0.0-0.4); Lymphocytes Absolute Auto 1.9 X10*3/uL (1.2-4.9); Lymphocytes Percent Auto 14.5 % (20-40); Mean Corpuscular HGB Conc 30.6 g/dl (31.0-36.0); Mean Corpuscular Hemoglobin 22.5 pg (27.0-33.0); Mean Corpuscular Volume 73.4 fL (80.0-98.0); Mean Platelet Volume 9.4 fL (9.4-12.4); Monocytes Absolute Auto 1.3 X10*3/uL (0.1-1.2); Monocytes Percent Auto 10.3 % (2-11); Neutrophils Absolute Auto 9.5 x10*3/uL (2.0-8.3); Neutrophils Percent Auto 73.2 % (45-73); Platelet Count 415 X10*3/uL (160-400); Red Blood Count 4.36 X10*6/uL (4.60-5.80); Red Cell Distribution Width 18.9 % (11.0-16.0)
[2024-04-29 21:46] LABS: INTERNATIONAL NORM RATIO 1.2 (0.9-1.1); Prothrombin Time 13.4 SEC (10.9-12.4)
[2024-04-29 21:50] LABS: VBG Base Excess -0.2 mmol/L; VBG HCO3 23 mmol/L (22-26); VBG pCO2 34 mmHg; VBG pH 7.43 (7.32-7.43); VBG pO2 33 mmHg
[2024-04-29 21:51] LABS: Venous Blood Gas Refer to POC result
[2024-04-29 22:00] LABS: Alanine Aminotransferase 10 U/L (0-40); Albumin Level 3.9 g/dL (3.5-5.0); Alkaline Phosphatase 91 U/L (39-117); Anion Gap 14 (12-20); Aspartate Amino Transferase 19 U/L (5-37); Bilirubin Total 0.6 mg/dL (0.0-1.0); Blood Urea Nitrogen 26 mg/dL (9-16); Calcium 8.6 mg/dL (8.4-10.2); Carbon Dioxide 21 mmol/L (22-29); Chloride 112 mmol/L (96-108); Creatinine Clr Calc Pharmacy 56.8; Estimated Glomerular Filt Rate 53; Glucose Random 104 mg/dL (60-115); Lipase 10 U/L (8-78); Sodium 143 mmol/L (135-145); Total Protein 6.9 g/dL (6.5-8.0)
--- NOTE | 2024-04-29 22:04 | ED_ITS ---
HPI - Fall General Chief Complaint: Fall Stated Complaint: fall ?loc Time Seen by Provider: 04/29/24 21:53 Source: patient, EMS and old records reviewed Mode of arrival: EMS Limitations: no limitations History of Present Illness ED Provider: DR. Brody HPI Narrative: A 78-year-old male with past medical history of AFib on Xarelto presented after was found on the floor covered with feces for unknown time at his house patient stated that he slipped on a wet floor in the bathroom and fell down could not get off the floor, patient was seen 2 days ago in the ED for another fall. Patient normally lives home by himself use a walker and wheelchair to ambulate, today he fell at the bathroom unclear if he hit his head, currently has no pain or symptoms. 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 Related Data Home Medications ?Medication ?Instructions ?Recorded ?Confirmed gabapentin 100 mg capsule 200 mg PO BID PAIN 09/30/23 04/20/24 melatonin 10 mg tablet 10 mg PO BEDTIME insomnia 09/30/23 04/27/24 divalproex 500 mg tablet,delayed 500 mg PO BEDTIME 11/09/23 04/27/24 release (Depakote) pantoprazole 40 mg tablet,delayed 40 mg PO DAILY@0630 11/09/23 04/27/24 release vibegron 75 mg tablet (Gemtesa) 75 mg PO DAILY 11/09/23 04/27/24 tamsulosin 0.4 mg capsule 0.4 mg PO DAILY 12/26/23 04/27/24 venlafaxine 150 mg 150 mg PO DAILY 12/26/23 04/27/24 capsule,extended release 24 hr (Effexor XR) venlafaxine 37.5 mg 37.5 mg PO DAILY 12/26/23 04/27/24 capsule,extended release 24 hr (Effexor XR) diclofenac sodium 1 % topical gel 1 ea topical TID 04/20/24 04/27/24 nystatin-triamcinolone 100,000 1 appl topical BID 04/20/24 04/27/24 unit/g-0.1 % topical cream apixaban 5 mg tablet 10 mg PO QAM 04/27/24 04/27/24 buspirone 5 mg tablet 10 mg PO DAILY 04/27/24 04/27/24 buspirone 5 mg tablet 15 mg PO BEDTIME 04/27/24 04/27/24 hydroxyzine HCl 25 mg tablet 25 mg PO Q8H PRN Anxiety 04/27/24 04/27/24 lorazepam 1 mg tablet 1 mg PO DAILY 04/27/24 04/27/24 Previous Rx's ?Medication ?Instructions ?Recorded syringe with needle, safety 3 mL #100 ea 06/02/21 25 gauge x 5/8 (BD Safety-Jackie Detachable Needle) metoprolol tartrate 25 mg tablet 12.5 mg PO BID #45 tabs 12/24/23 Allergies Allergy/AdvReac Type Severity Reaction Status Date / Time carisoprodol [From Soma] Allergy Mild MENTAL Verified 04/29/24 21:11 STATUS CHANGE, BECOMES AGGRESIVE codeine [Codeine] Allergy Mild STOMACH Verified 04/29/24 21:11 UPSET, RASH gabapentin AdvReac Intermediate lousy Verified 04/29/24 21:11 feeling Review of Systems 2 Review of Systems: All other systems are reviewed and are negative Constitutional: Reports as per HPI and Reports no additional constitutional complaints Eyes: Reports as per HPI and Reports no additional eye complaints Reports system reviewed and no additional complaints, except as documented Cardiovascular: Reports as per HPI and Reports no additional cardiovascular complaints Respiratory: Reports as per HPI and Reports no additional respiratory complaints Gastrointestinal: Reports as per HPI and Reports no additional gastrointestinal complaints Genitourinary: Reports no additional female genitourinary complaints Musculoskeletal: Reports no additional musculoskeletal complaints Skin/Breast: Reports system reviewed and no additional complaints, except as docu Psychiatric: Reports no additional psychiatric complaints Endocrine: Reports no additional endocrine complaints Hematologic/Lymphatic: Reports no additional hematologic/lymphatic complaints Allergic/Immunologic: Reports no additional allergic/immunologic complaints Reports system reviewed and no additional complaints, except as documented and Reports Abnormal speech present [facility] Past Medical History Medical History Incisional hernia Premature atrial complexes Shortness of breath Rash Asthma exacerbation Leukocytosis Serum potassium elevated Low vitamin D level Headache Fatigue Moderate recurrent major depression Hospital discharge follow-up Chest tightness Dyspnea on exertion Allergic bronchitis Generalized anxiety disorder Tinea cruris SOB (shortness of breath) on exertion Constipation Atrial fibrillation Knee fracture, left Wedge compression fracture of L1 vertebra Prostate cancer Iron deficiency anemia Obstructive sleep apnea Vitamin D deficiency Diverticular disease Obesity (BMI 30-39.9) Peptic ulcer disease Degenerative disc disease GERD (gastroesophageal reflux disease) Anxiety and depression Vitamin B12 deficiency Gout Hypertension Fatigue Dysuria Surgical History History of colonoscopy History of hemiarthroplasty of left hip H/O rectal polypectomy History of knee replacement procedure of left knee H/O hernia repair History of pyloroplasty History of bowel resection History of cholecystectomy Family History Family History Father Diabetes Acute kidney failure Glaucoma Mother Lung cancer Social History Social History Household Members: None Housing: Custodial Housing Other:: independent living Do you presently have visiting nurse or other home services: No Unable to assess alcohol history related to: Unknown Alcohol intake: never Comment: 1:1 sitter Patient Tobacco Use Status: Former Tobacco user Tobacco use type: Cigar Smoked in Last 30 Days: No e-Cigarette/Vaping Use: Currently Using Second Hand Smoke Exposure: No Use of substances other than those prescribed or required for medical reasons: No Advance Directives: Yes Advance Directives on File: Yes Advance Directives Date on File: 04/28/24 Do you have a plan to hurt others: No Plan service: No Current occupational status: retired Cognitive needs: No Hearing needs: Yes Vision needs: Yes Physical Exam 2 Vital Signs: Vital Signs: Last Vital Signs Temp 97.5 F 04/29/24 21:19 Pulse 96 04/29/24 23:38 Resp 18 04/29/24 23:38 BP 123/73 04/29/24 23:38 Pulse Ox 98 04/29/24 23:38 O2 Del Method Room Air 04/29/24 23:38 Oxygen Flow Rate 4 04/29/24 21:08 BMI result Body Mass Index 28.8 Vital signs have been reviewed and appear to be correct. Blood pressure elevated. Heart rate normal. Respiratory rate normal. Temperature normal. Oxygen saturation normal. Appearance: Alert. Oriented X3. No acute distress. Head: Normal external exam. Normocephalic. Atraumatic. No Hansen signs noted. No raccoon eyes noted Eyes: PERRLA. EOMI. Conjunctiva and sclera normal. Eyelids normal. ENT: TM's Normal. Pharynx normal. Uvula midline. Moist mucous membranes. No trismus noted. No drooling noted. No muffled voice noted. Neck: Normal inspection. Neck supple. FROM. No adenopathy. Thyroid Normal. No meningeal signs. No neck mass noted. CVS: Normal heart rate and rhythm. Heart sound normal. No murmurs noted. Pulses normal throughout. Respiratory: No respiratory distress. Painless inspiration. Breath sounds normal. No wheezes/rales/rhonchi noted. Chest nontender. No accessory muscle usage noted or decreased air movement noted. Abdomen: Soft and nontender. Bowel sounds normal in all 4 quadrants. No distention noted. No organomegaly noted. No visible injury noted. Back: No CVA tenderness. Full range of motion noted. Skin: Skin warm and dry. Normal skin color. Normal skin turgor. No rashes/lesions/lacerations noted. Extremities: Left lower extremity shortened and externally rotated patient stated that this is a chronic deformity. 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 Neuro: Oriented X 3. Cranial nerve exam: II-XII are grossly intact No motor deficit. No sensory deficit. Reflexes normal. Course Reevaluation(s) Reevaluation #1: S/p frequent falls and failure to thrive at home, patient was chronic left hip deformity, will keep the patient for physician observation and case management with physical therapy in the morning for possible placement. Patient will need Ativan for anxiety and agitation. Time: 00:18 Medical Decision Making Differential Diagnosis Differential Diagnoses: The differential diagnosis associated with the presentation includes (Intracranial bleed, cervical spine injury, extremity injury, chest injury, abdominal injury, severe anemia, electrolyte derangement, ACS.) Admission/Observation Consideration of admission/observation: Escalation of care including admission/observation considered Lab Data MDM Lab Attestation statement: I reviewed the patient's lab results. 04/29/24 21:29 04/29/24 21:29 Labs: Lab Results 04/29/24 04/29/24 Range/Units 21:29 21:44 WBC 13.0 H (4.8-10.8) X10*3/uL RBC 4.36 L (4.60-5.80) X10*6/uL Hgb 9.8 L (14.0-18.0) g/dl Hct 32.0 L (42.0-52.0) % MCV 73.4 L (80.0-98.0) fL MCH 22.5 L (27.0-33.0) pg MCHC 30.6 L (31.0-36.0) g/dl RDW 18.9 H (11.0-16.0) % Plt Count 415 H (160-400) X10*3/uL MPV 9.4 (9.4-12.4) fL Immature Gran % (Auto) 0.6 H (0.0-0.4) % Neut % (Auto) 73.2 H (45-73) % Lymph % (Auto) 14.5 L (20-40) % Kimball % (Auto) 10.3 (2-11) % Eos % (Auto) 0.6 (0-4) % Baso % (Auto) 0.8 (0-2) % Lymph # (Auto) 1.9 (1.2-4.9) X10*3/uL Kimball # (Auto) 1.3 H (0.1-1.2) X10*3/uL Eos # (Auto) 0.1 (0.0-0.4) X10*3/uL Baso # (Auto) 0.1 (0.0-0.2) X10*3/uL Abs Immat Gran (auto) 0.08 H (0.00-0.03) X10*3/uL Absolute Neuts (auto) 9.5 H (2.0-8.3) x10*3/uL Absolute Nucleated RBC 0.000 (0.0-0.012) X10*3/uL Nucleated RBC % (auto) 0.0 (0.0-0.2) /100WBC Hold Purple Top SEE NOTE PT 13.4 H (10.9-12.4) SEC INR 1.2 H (0.9-1.1) Hold Blue Top SEE NOTE VBG pH 7.43 (7.32-7.43) VBG pCO2 34 mmHg VBG pO2 33 mmHg VBG HCO3 23 (22-26) mmol/L VBG O2 Saturation 42.0 % VBG Base Excess -0.2 mmol/L Sodium 143 (135-145) mmol/L Potassium 4.0 (3.3-5.1) mmol/L Chloride 112 H (96-108) mmol/L Carbon Dioxide 21 L (22-29) mmol/L Anion Gap 14 (12-20) BUN 26 H (9-16) mg/dL Creatinine 1.31 (0.5-1.4) mg/dL Estim Creat Clear Calc 56.8 Estimated GFR 53 Random Glucose 104 (60-115) mg/dL Calcium 8.6 (8.4-10.2) mg/dL Total Bilirubin 0.6 (0.0-1.0) mg/dL AST 19 (5-37) U/L ALT 10 (0-40) U/L Alkaline Phosphatase 91 (39-117) U/L Total Creatine Kinase 110 (38-174) U/L Troponin I High Sens 10.2 D (<3.5-35.0) ng/L Total Protein 6.9 (6.5-8.0) g/dL Albumin 3.9 (3.5-5.0) g/dL Lipase 10 (8-78) U/L Independent Interpretation I performed an independent interpretation of an: Plain X-Ray (Left hip x-ray:No acute fracture injury identified. A left hip prosthesis is redemonstrated which appears similar in configuration as compared to the prior examination. The left acetabular component and left femoral stem component of the left hip prosthesis appear intact. The left femoral head/n) Radiology Impression Discussion of test interpretation with radiology: I have reviewed the radiologist's reading. Discharge Plan Discharge Clinical Impression: Adult failure to thrive, Falls frequently Patient Disposition: Still a Patient Prescriptions: No Action (DME) BD Safety-Jackie Detachable Needl 3 mL 25 gauge x 5/8 syringe See Rx Instructions .ROUTE .MEDSUPPLY Qty: 100 12RF Rx Instructions: As directed gabapentin 100 mg Capsule 200 mg PO BID Patient Comments: [facility] uncertain if medication was discontinued. They have him at 300mg melatonin 10 mg Tablet 10 mg PO BEDTIME nystatin-triamcinolone 100,000-0.1 unit/g-% Cream 1 appl TOPICAL BID Rx Instructions: apply to rash on groin and foreskin diclofenac sodium 1 % Gel 1 ea TOPICAL TID Rx Instructions: RIGHT HIP divalproex [Depakote] 500 mg tablet,delayed release (DR/EC) 500 mg PO BEDTIME pantoprazole 40 mg tablet,delayed release (DR/EC) 40 mg PO DAILY@0630 Gemtesa 75 mg tablet 75 mg PO DAILY metoprolol tartrate 25 mg Tablet 12.5 mg PO BID Qty: 45 0RF Protocol: Hold for SBP/HR < HOLD for SBP < : 120 HOLD for HR < : 60 Rx Instructions: hold for SBP < 120 and pulse < 60 venlafaxine [Effexor XR] 150 mg capsule,extended release 24hr 150 mg PO DAILY tamsulosin 0.4 mg capsule 0.4 mg PO DAILY venlafaxine [Effexor XR] 37.5 mg capsule,extended release 24hr 37.5 mg PO DAILY buspirone 5 mg tablet 15 mg PO BEDTIME buspirone 5 mg tablet 10 mg PO DAILY hydroxyzine HCl 25 mg tablet 25 mg PO Q8H PRN (Reason: Anxiety) lorazepam 1 mg tablet 1 mg PO DAILY Rx Instructions: tapering today 04/23/2024 apixaban 5 mg tablet 10 mg PO QAM Print Language: Serbian
--- NOTE | 2024-04-29 22:06 | ECG_ITS ---
Test Reason : FALL Blood Pressure : / mmHG Vent. Rate : 093 BPM Atrial Rate : 093 BPM P-R Int : 128 ms QRS Dur : 068 ms QT Int : 340 ms P-R-T Axes : 061 046 077 degrees QTc Int : 422 ms Sinus rhythm with Premature supraventricular complexes Nonspecific ST and T wave abnormality Abnormal ECG When compared with ECG of 27-APR-2024 15:42, ST now depressed in Inferior leads Referred By: Hollis Brody Electronically Signed By:CONOR VALERO MD
[2024-04-29 22:07] LABS: Troponin-I High Sensitivity 10.2 ng/L (<3.5-35.0)
[2024-04-29 23:38] VITALS: BP 123/73; PULSE 96; RESP 18; O2SAT 98
[2024-04-30] MEDS: LORazepam 2 MG/ML VIAL 1 MG IVPUSH (00:21)
--- NOTE | 2024-04-30 03:06 | PC.NURSE ---
pt calling out for nurse, trying to get out of bed, wanted water, water provided. assist back to bed. this RN has been into pt's room multiple times, each time nasal canula is off, pt is adamantly refusing to wear it. O2 fluctuates between 85-98%. will continue to monitor.
[2024-04-30 06:00] VITALS: BP 126/83; PULSE 110; RESP 16; TEMP 37; O2SAT 94
[2024-04-30 08:18] VITALS: PULSE 98; O2SAT 94
[2024-04-30] MEDS: Famotidine 20 MG TABLET PO (08:41)
--- NOTE | 2024-04-30 09:31 | MHC.CM.ED ---
Addendum entered by Ingrid Fernandez 04/30/24 12:16: [facility] is able to offer a bed. Patient is declining the need for STR and wants to return home with resumption of [facility]. Brittni Dom will transport patient home. Patient, Antoinette RN and Josie JOSHUA aware. Original Note: Received case management consult overnight. Patient came to the ER due to another fall. Patient is well known to case management d/t frequent falls. Active with [facility]. Patient was d/c'd from [facility] on 03/31. Physical therapy eval completed. Short term rehab is recommended. Referral made to [facility] via [facility]. Continue to monitor for d/c needs.
[2024-04-30] MEDS: Calcium Carbonate 750 MG TAB.CHEW PO (09:53)
[2024-04-30 10:04] LABS: COVID-19 Test Negative (Negative); IDNOW Serial# 55D5AD1C
--- NOTE | 2024-04-30 10:05 | PC.NURSE ---
Pharmacy contacted for help with med rec due to pt being confused about his home meds and no list present.
--- NOTE | 2024-04-30 10:45 | PHA.MEDREC ---
Pharmacy Consult ? Medication Reconciliation Pharmacy has completed the medication reconciliation. Spoke with patient at bedside, he was able to confirm his meds with some prompting. He states he no longer takes the buspirone and confirmed he takes apixaban 5mg BID.
[2024-04-30 11:15] VITALS: BP 125/87; PULSE 85; RESP 20; TEMP 36.9; O2SAT 95
--- NOTE | 2024-04-30 11:18 | PC.NURSE ---
Pt continuing to complain or burning heartburn pains and nausea this morning, was medicated X2 per provider with no relief. Provider saw pt at bedside. VSS
[2024-04-30] MEDS: LORazepam 1 MG TABLET PO (11:47)
[2024-04-30] MEDS: hydrOXYzine HCL 25 MG TABLET PO (12:34)
--- NOTE | 2024-04-30 14:19 | PC.NURSE ---
Pt continues to be restless. Needing frequent reassurance.
--- NOTE | 2024-04-30 14:54 | PC.NURSE ---
Pt wheeled himself into hallway, no camera alarmed (camera on and pointed at door). Staff alerted, pt did not make it far into [facility]. Pt said he thought he had to go there to meet the ambulance. Sat next to nurses station, camera room is aware of situation.
[2024-04-30 14:56] VITALS: BP 121/77; PULSE 106; RESP 18; TEMP 37; O2SAT 94
--- NOTE | 2024-04-30 16:03 | PC.NURSE ---
Attempted to call [facility] to give report X3 with no answer.
[2024-04-30 16:04] VITALS: BP 121/77; PULSE 106; RESP 18; TEMP 37; O2SAT 94
== END 2024-04-30 16:06 ==
PROVIDERS: Physician Assistant Medical; Emergency Provider Emergency Medicine; PCP Internal Medicine
DX: R62.7 Adult failure to thrive (principal); Z68.28 Body mass index [BMI] 28.0-28.9, adult; R29.6 Repeated falls; R45.1 Restlessness and agitation; F41.9 Anxiety disorder, unspecified; I10 Essential (primary) hypertension; J45.909 Unspecified asthma, uncomplicated; I48.91 Unspecified atrial fibrillation; R06.02 Shortness of breath; K21.9 Gastro-esophageal reflux disease without esophagitis; Z87.891 Personal history of nicotine dependence; Z79.899 Other long term (current) drug therapy; Z79.01 Long term (current) use of anticoagulants; Z11.52 Encounter for screening for COVID-19
CPT/HCPCS: 36415; 70450; 72125; 73502; 80053; 82550; 82803; 83690; 84484; 85025; 85610; 87635; 93005; 97162; 99284; J2060

== ENCOUNTER → 2024-04-29 21:50 | Outpatient (BNV) | payer MEDICARE, SELFPAY | PROVIDERS: Emergency Provider Emergency Medicine; Visit Provider Specialist | DX: R29.6 Repeated falls (principal) | CPT/HCPCS: 70450; 72125 ==

== ENCOUNTER → 2024-04-29 22:06 | Outpatient (BNV) | payer MEDICARE, SELFPAY | PROVIDERS: Emergency Provider Emergency Medicine; Visit Provider Internal Medicine Cardiovascular Disease | DX: R94.31 Abnormal electrocardiogram [ECG] [EKG] (principal) | CPT/HCPCS: 93010 ==

== ENCOUNTER 2024-05-20 06:52 | Emergency (ER) | payer MEDICARE, SELFPAY ==
[2024-05-20] VITALS (14 sets, daily range): BP systolic 111–127; BP diastolic 68–92; PULSE 82–150; RESP 15–28; TEMP 36.4–37.3; O2SAT 95–100
--- NOTE | ~2024-05-20 | CT_ITS ---
EXAMINATION: CT ANGIOGRAM CHEST CLINICAL INFORMATION: Shortness of breath, history of PE. COMPARISON: CTA chest 12/21/2023 TECHNIQUE: Multiple axial images were obtained through the chest after the administration of 50 mL of Omnipaque 350 intravenous contrast. Extensive vascular post-processing including two-dimensional and three-dimensional reformatted images were created and reviewed on an independent workstation. This CT examination was performed using dose optimization techniques as appropriate, variously including the following: *Automated exposure control *Adjustment of mA and/or kV according to patient size (this includes techniques or standardized protocols for targeted exams where dose is matched to indication/reason for exam; i.e. extremities or head) *Use of iterative reconstruction technique DLP: 1488 mGy/cm. FINDINGS: Vascular: There is good opacification of pulmonary artery and its branches without any intravenous intraluminal filling defect or narrowing. The thoracic aorta is of normal caliber without aneurysm or dissection. The right brachiocephalic and left proximal common carotid artery is ectatic. Mild atherosclerotic plaque seen in the origins of right brachiocephalic and left subclavian artery. Heart size enlarged. No pericardial effusion seen. Nonvascular: Thyroid lobes are symmetric and normal. The central trachea and bronchial airway is widely patent. Compressive atelectasis seen in both lung bases. No consolidation, mass seen. No abnormal size exiting lymph nodes seen. The chest wall is unremarkable. Visualized liver, spleen, pancreas and bilateral adrenal glands are unremarkable. Bone windows reveal no aggressive lytic or sclerotic process seen. There is mild inferior endplate Schmorl's node teeth [address]/CT angio chest PE protocol IMPRESSION: No evidence of PE. No evidence of aortic aneurysm or dissection. Ectatic right brachiocephalic and left common carotid artery. Bibasilar dependent atelectasis. Fleischner guidelines were followed. Electronically signed by: Kamron Oh MD 05/20/2024 12:51 PM EST
--- NOTE | ~2024-05-20 | XR_ITS ---
EXAMINATION: XR CHEST CLINICAL INFORMATION: sob COMPARISON: 04/27/2024, 03/01/2024. TECHNIQUE: Frontal view of the chest was obtained. FINDINGS: Cardiac, hilar, and mediastinal contours are normal. The aorta is calcified. The lungs appear clear bilaterally. No pneumothorax or effusion. There are old left-sided rib fractures. There are arthritic changes in both shoulder joints left greater than right, and throughout the spine. XR/XR chest 1V IMPRESSION: No active pulmonary disease. Electronically signed by: Ta Esposito MD 05/20/2024 08:23 AM [facility]
--- NOTE | ~2024-05-20 | CT_ITS ---
EXAMINATION: CT ABDOMEN AND PELVIS WITH CONTRAST CLINICAL INFORMATION: Abdominal pain and lactic acidosis COMPARISON: None available. TECHNIQUE: Multidetector volumetric images were obtained from the superior aspect of the liver through the pubic symphysis following administration 85 mL of Omnipaque 350 intravenous contrast. Sagittal and coronal reformatted images were obtained on the technologist's workstation. Oral contrast: No This CT examination was performed using dose optimization techniques as appropriate, variously including the following: *Automated exposure control *Adjustment of mA and/or kV according to patient size (this includes techniques or standardized protocols for targeted exams where dose is matched to indication/reason for exam; i.e. extremities or head) *Use of iterative reconstruction technique DLP: 1488. FINDINGS: LUNG BASES: There is dependent bibasilar scarring atelectasis. The heart size is normal. No pericardial or pleural effusion. LIVER, GALLBLADDER, AND BILIARY TREE: The liver is normal in size, shape, and attenuation. No focal hepatic lesion or biliary ductal dilatation is present. The gallbladder has been surgically removed PANCREAS: Unremarkable. SPLEEN: Unremarkable. ADRENAL GLANDS: Unremarkable. KIDNEYS AND URETERS: The kidneys are normal in size, shape, and attenuation. No hydronephrosis, hydroureter, or calculi seen. There is mild bilateral perinephric stranding. BLADDER: Unremarkable. GASTROINTESTINAL TRACT: There is moderate scattered stool, gas and diverticuli seen throughout the colon without distention or diverticulitis. The small bowel loops are normal caliber. Appendix is not visualized with certainty. The stomach is nondistended with postsurgical changes along the GE junction. ABDOMINAL WALL: There is abdominal wall hernia repair with mesh in place. Slightly prominent left inguinal canal containing fat is noted. LYMPH NODES: No abnormal size retroperitoneal or mesenteric lymph nodes seen. VASCULAR: Mild arthritic changes of abdominal aorta without aneurysmal dilatation. PELVIC VISCERA: There are radiation beads within the prostate gland. No free fluid. No abnormal pelvic lymph nodes OSSEOUS STRUCTURES: There is a left hip prosthesis. There is a intramedullary femoral albert with the missing femoral head likely removed. There is cement augmentation of old L1 compression fracture. No new compression fractures seen. Degenerative disc changes L2-3 and L4-[address]/CT abdomen pelvis w IV con IMPRESSION: Colonic diverticulosis without diverticulitis. Cholecystectomy and GE junction postsurgical changes. Moderate to significant constipation. Abdominal wall hernia repair with mesh in place. No recurrent hernia seen. Prominent left inguinal canal containing fat, stable. Fleischner guidelines were followed. Electronically signed by: Kamron Oh MD 05/20/2024 01:03 PM [facility]
--- NOTE | 2024-05-20 07:18 | ECG_ITS ---
Test Reason : sob Blood Pressure : */* mmHG Vent. Rate : 121 BPM Atrial Rate : * BPM P-R Int : * ms QRS Dur : 76 ms QT Int : 344 ms P-R-T Axes : * 9 15 degrees QTcB Int : 488 ms Poor data quality Possible Atrial fibrillation or Sinus tachycardia with Premature atrial complexes Low voltage QRS Cannot rule out Anteroseptal infarct , age undetermined ST & T wave abnormality, consider lateral ischemia Abnormal ECG When compared with ECG of 29-Apr-2024 22:13, Significant changes have occurred Repeat EKG Referred By: Hollis Brody Electronically Signed By: CONOR VALERO MD
--- NOTE | 2024-05-20 07:24 | ED.GENADULT ---
HPI - General Adult General Chief complaint: Dyspnea Stated complaint: Sepsis Alert, AFib, AMS, CPAP Time Seen by Provider: 05/20/24 07:07 Source: patient, EMS and old records reviewed Mode of arrival: EMS Limitations: no limitations History of Present Illness ED Provider: DR. Brody HPI narrative: This is a 78-year-old male who came from home for difficulty breathing, feeling anxious and feeling disoriented since 15:00 yesterday patient normally have history of anxiety that he takes Ativan for at-home patient recently was just discharged from [facility] to home 2 days ago. The patient normally wheelchair-bound able to transport lives home alone. Patient with history of AFib, pulmonary embolism, and DVT that he is anticoagulated with apixaban. Patient also with history of asthma and sleep apnea not using supplemental oxygen or CPAP at home. Related Data Home Medications ?Medication ?Instructions ?Recorded ?Confirmed gabapentin 100 mg capsule 200 mg PO BID PAIN 09/30/23 04/30/24 melatonin 10 mg tablet 10 mg PO BEDTIME insomnia 09/30/23 04/30/24 divalproex 500 mg tablet,delayed 500 mg PO BEDTIME 11/09/23 04/30/24 release (Depakote) pantoprazole 40 mg tablet,delayed 40 mg PO DAILY@0630 11/09/23 04/30/24 release vibegron 75 mg tablet (Gemtesa) 75 mg PO DAILY 11/09/23 04/30/24 tamsulosin 0.4 mg capsule 0.4 mg PO DAILY 12/26/23 04/30/24 venlafaxine 150 mg 150 mg PO DAILY 12/26/23 04/30/24 capsule,extended release 24 hr (Effexor XR) venlafaxine 37.5 mg 37.5 mg PO DAILY 12/26/23 04/30/24 capsule,extended release 24 hr (Effexor XR) diclofenac sodium 1 % topical gel 1 ea topical TID 04/20/24 04/30/24 nystatin-triamcinolone 100,000 1 appl topical BID 04/20/24 04/30/24 unit/g-0.1 % topical cream apixaban 5 mg tablet 5 mg PO BID 04/27/24 04/30/24 hydroxyzine HCl 25 mg tablet 25 mg PO Q8H PRN Anxiety 04/27/24 04/30/24 lorazepam 1 mg tablet 1 mg PO DAILY 04/27/24 04/30/24 amlodipine 2.5 mg tablet 2.5 mg PO DAILY 04/30/24 04/30/24 Previous Rx's ?Medication ?Instructions ?Recorded syringe with needle, safety 3 mL #100 ea 06/02/21 25 gauge x 5/8 (BD Safety-Jackie Detachable Needle) metoprolol tartrate 25 mg tablet 12.5 mg PO BID #45 tabs 12/24/23 lorazepam 1 mg tablet (Ativan) 1 mg PO DAILY anxiety #3 tabs 04/30/24 Allergies Allergy/AdvReac Type Severity Reaction Status Date / Time carisoprodol [From Soma] Allergy Mild MENTAL Verified 05/20/24 07:14 STATUS CHANGE, BECOMES AGGRESIVE codeine [Codeine] Allergy Mild STOMACH Verified 05/20/24 07:14 UPSET, RASH gabapentin AdvReac Intermediate lousy Verified 05/20/24 07:14 feeling Review of Systems Review of Systems: All other systems are reviewed and are negative Constitutional: Reports as per HPI and Reports no additional constitutional complaints Eyes: Reports as per HPI and Reports no additional eye complaints Reports system reviewed and no additional complaints, except as documented Cardiovascular: Reports as per HPI and Reports no additional cardiovascular complaints Respiratory: Reports as per HPI and Reports no additional respiratory complaints Gastrointestinal: Reports as per HPI and Reports no additional gastrointestinal complaints Genitourinary: Reports no additional female genitourinary complaints Musculoskeletal: Reports no additional musculoskeletal complaints Skin/Breast: Reports system reviewed and no additional complaints, except as docu Psychiatric: Reports no additional psychiatric complaints Endocrine: Reports no additional endocrine complaints Hematologic/Lymphatic: Reports no additional hematologic/lymphatic complaints Allergic/Immunologic: Reports no additional allergic/immunologic complaints Reports system reviewed and no additional complaints, except as documented and Reports Abnormal speech present [facility] Past Medical History Medical History Incisional hernia Premature atrial complexes Shortness of breath Rash Asthma exacerbation Leukocytosis Serum potassium elevated Low vitamin D level Headache Fatigue Moderate recurrent major depression Hospital discharge follow-up Chest tightness Dyspnea on exertion Allergic bronchitis Generalized anxiety disorder Tinea cruris SOB (shortness of breath) on exertion Constipation Atrial fibrillation Knee fracture, left Wedge compression fracture of L1 vertebra Prostate cancer Iron deficiency anemia Obstructive sleep apnea Vitamin D deficiency Diverticular disease Obesity (BMI 30-39.9) Peptic ulcer disease Degenerative disc disease GERD (gastroesophageal reflux disease) Anxiety and depression Vitamin B12 deficiency Gout Hypertension Fatigue Dysuria Surgical History History of colonoscopy History of hemiarthroplasty of left hip H/O rectal polypectomy History of knee replacement procedure of left knee H/O hernia repair History of pyloroplasty History of bowel resection History of cholecystectomy Family History Family History Father Diabetes Acute kidney failure Glaucoma Mother Lung cancer Social History Social History Household Members: None Housing: Retirement Housing Other:: independent living Do you presently have visiting nurse or other home services: No Unable to assess alcohol history related to: Unknown Alcohol intake: former Comment: 1:1 sitter Patient Tobacco Use Status: Former Tobacco user Tobacco use type: Cigar Smoked in Last 30 Days: No e-Cigarette/Vaping Use: Currently Using Second Hand Smoke Exposure: No Use of substances other than those prescribed or required for medical reasons: No Advance Directives: Yes Advance Directives on File: Yes Advance Directives Date on File: 04/28/24 service: No Current occupational status: retired Cognitive needs: No Hearing needs: Yes Vision needs: Yes Physical Exam ED Vital Signs: Vital Signs - 24 hr 05/20/24 07:11 05/20/24 07:17 05/20/24 08:01 Temperature Pulse Rate 130 H Respiratory Rate 28 H 15 Blood Pressure 122/85 Pulse Oximetry 97 Oxygen Delivery Method Nasal Cannula Oxygen Flow Rate 05/20/24 10:14 05/20/24 10:38 05/20/24 10:54 Temperature 97.6 F Pulse Rate 120 H 105 H Respiratory Rate 23 H 27 H Blood Pressure 123/75 Pulse Oximetry 97 100 Oxygen Delivery Method High Flow Nasal Cannula High Flow Nasal Cannula Oxygen Flow Rate 05/20/24 12:59 05/20/24 13:39 Temperature 98.1 F 99.1 F Pulse Rate 98 111 H Respiratory Rate 20 18 Blood Pressure 119/92 H 120/82 Pulse Oximetry 99 98 Oxygen Delivery Method Oxymask Room Air Oxygen Flow Rate 8 BMI result Body Mass Index 30.0 Vital signs have been reviewed and appear to be correct. Blood pressure elevated. Heart rate normal. Respiratory rate normal. Temperature normal. Oxygen saturation normal. Appearance: Anxious. Head: Normal external exam. Normocephalic. Atraumatic. No Hansen signs noted. No raccoon eyes noted Eyes: PERRLA. EOMI. Conjunctiva and sclera normal. Eyelids normal. ENT: TM's Normal. Pharynx normal. Uvula midline. Moist mucous membranes. No trismus noted. No drooling noted. No muffled voice noted. Neck: Normal inspection. Neck supple. FROM. No adenopathy. Thyroid Normal. No meningeal signs. No neck mass noted. CVS: Normal heart rate and rhythm. Heart sound normal. No murmurs noted. Pulses normal throughout. Respiratory: Mild respiratory distress. Painless inspiration. Breath sounds normal. No wheezes/rales/rhonchi noted. Chest nontender. No accessory muscle usage noted or decreased air movement noted. Abdomen: Soft and nontender. Bowel sounds normal in all 4 quadrants. No distention noted. No organomegaly noted. No visible injury noted. Back: No CVA tenderness. Full range of motion noted. Skin: Skin warm and dry. Normal skin color. Normal skin turgor. No rashes/lesions/lacerations noted. Extremities: No lower extremity edema. Extremities exhibit normal range of motion. Extremities nontender. Neuro: Oriented X 3. Cranial nerve exam: II-XII are grossly intact No motor deficit. No sensory deficit. Reflexes normal. Course Reevaluation(s) Reevaluation #1: Came in initially with difficulty breathing, tachycardia, hypoxia. 1. CT of the chest showed no pulmonary embolism, or any other pulmonary disease. 2. CT abdomen and pelvis: Showing chronic changes with no acute intra-abdominal pathology, with chronic left hip prosthesis and chronic femoral head surgical removal that explain why patient is not ambulatory and bed chair bound. 3. Patient initially needed high flow oxygen now he needs no supplemental oxygen satting 99% at room air. 4. Improvement of lactic acidosis from 5-1.1 with fluids. Lactic acidosis was expected secondary to hyperventilation with anxiety at this point there is no source of sepsis or infection. 5. With improvement of patient's symptoms and no findings on the workup today it is strongly believed that patient's symptoms is secondary to severe anxiety. Patient is seeking to be placed in the rehab. 6. Patient has an old surgical stitch in his anterior abdominal wall from old surgical abdominal wall hernia repair 3 years ago, stitche is nonabsorbable and is embedded in the granulation tissue with no sign of infection or discharge. Dr. Guerrero is made aware and he will see the patient in the ED. Time: 15:07 Medications Administered Discontinued Medications Generic Name Dose Route Start Last Admin Trade Name Wade PRN Reason Stop Dose Admin Ceftriaxone Sodium 1 gm 05/20/24 09:22 05/20/24 09:33 Ceftriaxone Sodium 1 Gm Vial IVPUSH 05/20/24 09:23 1 gm ONCE ONE Administration Hydromorphone HCl 1 mg 05/20/24 11:17 05/20/24 11:23 Hydromorphone Hcl 1 Mg/Ml Syringe IVPUSH 05/20/24 11:18 1 mg ONCE ONE Administration Protocol Sodium Chloride 3,007.32 mls @ 3,007.32 mls/hr 05/20/24 09:22 05/20/24 13:01 Ns 30 ml/kg infuse over 1 hr (3007.32 ml) 05/20/24 10:21 Infused IV Infusion .Q1H STA Acetaminophen 1,000 mg in 100 mls @ 400 mls/hr 05/20/24 09:23 05/20/24 10:37 Ofirmev IV 05/20/24 09:37 Infused ONCE ONE Infusion Iohexol 100 ml 05/20/24 12:32 05/20/24 12:32 Iohexol 350 Mg/Ml 100 Ml Infus..Btl IV 05/20/24 12:33 85 ml ONCE ONE Administration Lorazepam 1 mg 05/20/24 07:38 05/20/24 07:44 Lorazepam 2 Mg/Ml Vial IVPUSH 05/20/24 07:39 1 mg ONCE ONE Administration Medical Decision Making Differential Diagnosis Differential Diagnoses: The differential diagnosis associated with the presentation includes (Pulmonary embolism, ACS, pneumonia, pneumothorax, pleural effusion, electrolyte derangement, severe anemia, UTI, lactic acidosis, anxiety.) Admission/Observation Consideration of admission/observation: Escalation of care including admission/observation considered Lab Data MDM Lab Attestation statement: I reviewed the patient's lab results. 05/20/24 08:27 05/20/24 08:27 Labs: Lab Results 05/20/24 05/20/24 05/20/24 Range/Units 07:41 07:55 08:27 WBC 8.0 (4.8-10.8) X10*3/uL RBC 4.35 L (4.60-5.80) X10*6/uL Hgb 9.4 L (14.0-18.0) g/dl Hct 31.3 L (42.0-52.0) % MCV 72.0 L (80.0-98.0) fL MCH 21.6 L (27.0-33.0) pg MCHC 30.0 L (31.0-36.0) g/dl RDW 18.7 H (11.0-16.0) % Plt Count 398 (160-400) X10*3/uL MPV 9.5 (9.4-12.4) fL Immature Gran % (Auto) 0.6 H (0.0-0.4) % Neut % (Auto) 66.6 (45-73) % Lymph % (Auto) 16.1 L (20-40) % [place] % (Auto) 16.3 H (2-11) % Eos % (Auto) 0.1 (0-4) % Baso % (Auto) 0.3 (0-2) % Lymph # (Auto) 1.3 (1.2-4.9) X10*3/uL [place] # (Auto) 1.3 H (0.1-1.2) X10*3/uL Eos # (Auto) 0.0 (0.0-0.4) X10*3/uL Baso # (Auto) 0.0 (0.0-0.2) X10*3/uL Abs Immat Gran (auto) 0.05 H (0.00-0.03) X10*3/uL Absolute Neuts (auto) 5.3 (2.0-8.3) x10*3/uL Absolute Nucleated RBC 0.000 (0.0-0.012) X10*3/uL Nucleated RBC % (auto) 0.0 (0.0-0.2) /100WBC PT 13.8 H (10.9-12.4) SEC INR 1.2 H (0.9-1.1) D-Dimer High Sensitivty 332 NG/ML VBG pH (7.32-7.43) VBG pCO2 mmHg VBG pO2 mmHg VBG HCO3 (22-26) mmol/L VBG O2 Saturation % VBG Base Excess mmol/L Sodium 138 (135-145) mmol/L Potassium 4.1 (3.3-5.1) mmol/L Chloride 109 H (96-108) mmol/L Carbon Dioxide 21 L (22-29) mmol/L Anion Gap 12 (12-20) BUN 23 H (9-16) mg/dL Creatinine 1.01 (0.5-1.4) mg/dL Estim Creat Clear Calc 75.0 Estimated GFR > 60 Random Glucose 91 (60-115) mg/dL Lactic Acid 5.0 H* (0.5-2.0) mmol/L Lactic Acid F/U @ 2Hr (0.5-2.0) mmol/L Calcium 8.7 (8.4-10.2) mg/dL Total Bilirubin 0.6 (0.0-1.0) mg/dL Direct Bilirubin 0.3 (0.0-0.5) mg/dL AST 24 (5-37) U/L ALT 12 (0-40) U/L Alkaline Phosphatase 62 (39-117) U/L Troponin I High Sens 8.8 (<3.5-35.0) ng/L B-Natriuretic Peptide 310 H (<100) pg/mL Total Protein 6.9 (6.5-8.0) g/dL Albumin 3.7 (3.5-5.0) g/dL Lipase 8 (8-78) U/L Urine Color Yellow Urine Appearance Clear Urine pH 5.5 (5.0-9.0) Ur Specific [place] 1.015 (1.005-1.025) Urine Protein Negative (Neg-Trace) mg/dL Urine Glucose (UA) Negative (Negative) mg/dL Urine Ketones Negative (Negative) mg/dL Urine Blood Negative (Negative) Urine Nitrite Negative (Negative) Ur Leukocyte Esterase Negative (Negative) Urine Opiates Screen Not Detected (Not Detect) Ur Buprenorphine Scrn Not Detected (Not Detect) ng/mL Ur Oxycodone Screen Not Detected (Not Detect) ng/mL Urine Methadone Screen Not Detected (Not Detect) ng/mL Urine Fentanyl Screen Not Detected (Not Detect) Ur Barbiturates Screen Not Detected (Not Detect) Ur Phencyclidine Scrn Not Detected (Not Detect) Ur Amphetamines Screen Not Detected (Not Detect) U Benzodiazepines Scrn Not Detected (Not Detect) Urine Cocaine Screen Not Detected (Not Detect) U Marijuana (THC) Screen Not Detected (Not Detect) Influenza Type A (PCR) NEGATIVE (Negative) Influenza Type B (PCR) NEGATIVE (Negative) RSV RNA Qual (PCR) NEGATIVE (Negative) SARS-CoV-2 RNA (RT-PCR) NEGATIVE (Negative) 05/20/24 05/20/24 Range/Units 08:35 11:02 WBC (4.8-10.8) X10*3/uL RBC (4.60-5.80) X10*6/uL Hgb (14.0-18.0) g/dl Hct (42.0-52.0) % MCV (80.0-98.0) fL MCH (27.0-33.0) pg MCHC (31.0-36.0) g/dl RDW (11.0-16.0) % Plt Count (160-400) X10*3/uL MPV (9.4-12.4) fL Immature Gran % (Auto) (0.0-0.4) % Neut % (Auto) (45-73) % Lymph % (Auto) (20-40) % [place] % (Auto) (2-11) % Eos % (Auto) (0-4) % Baso % (Auto) (0-2) % Lymph # (Auto) (1.2-4.9) X10*3/uL [place] # (Auto) (0.1-1.2) X10*3/uL Eos # (Auto) (0.0-0.4) X10*3/uL Baso # (Auto) (0.0-0.2) X10*3/uL Abs Immat Gran (auto) (0.00-0.03) X10*3/uL Absolute Neuts (auto) (2.0-8.3) x10*3/uL Absolute Nucleated RBC (0.0-0.012) X10*3/uL Nucleated RBC % (auto) (0.0-0.2) /100WBC PT (10.9-12.4) SEC INR (0.9-1.1) D-Dimer High Sensitivty NG/ML VBG pH 7.29 L (7.32-7.43) VBG pCO2 45 mmHg VBG pO2 19 mmHg VBG HCO3 22 (22-26) mmol/L VBG O2 Saturation < 30.0 % VBG Base Excess -3.8 mmol/L Sodium (135-145) mmol/L Potassium (3.3-5.1) mmol/L Chloride (96-108) mmol/L Carbon Dioxide (22-29) mmol/L Anion Gap (12-20) BUN (9-16) mg/dL Creatinine (0.5-1.4) mg/dL Estim Creat Clear Calc Estimated GFR Random Glucose (60-115) mg/dL Lactic Acid (0.5-2.0) mmol/L Lactic Acid F/U @ 2Hr 1.1 (0.5-2.0) mmol/L Calcium (8.4-10.2) mg/dL Total Bilirubin (0.0-1.0) mg/dL Direct Bilirubin (0.0-0.5) mg/dL AST (5-37) U/L ALT (0-40) U/L Alkaline Phosphatase (39-117) U/L Troponin I High Sens (<3.5-35.0) ng/L B-Natriuretic Peptide (<100) pg/mL Total Protein (6.5-8.0) g/dL Albumin (3.5-5.0) g/dL Lipase (8-78) U/L Urine Color Urine Appearance Urine pH (5.0-9.0) Ur Specific [place] (1.005-1.025) Urine Protein (Neg-Trace) mg/dL Urine Glucose (UA) (Negative) mg/dL Urine Ketones (Negative) mg/dL Urine Blood (Negative) Urine Nitrite (Negative) Ur Leukocyte Esterase (Negative) Urine Opiates Screen (Not Detect) Ur Buprenorphine Scrn (Not Detect) ng/mL Ur Oxycodone Screen (Not Detect) ng/mL Urine Methadone Screen (Not Detect) ng/mL Urine Fentanyl Screen (Not Detect) Ur Barbiturates Screen (Not Detect) Ur Phencyclidine Scrn (Not Detect) Ur Amphetamines Screen (Not Detect) U Benzodiazepines Scrn (Not Detect) Urine Cocaine Screen (Not Detect) U Marijuana (THC) Screen (Not Detect) Influenza Type A (PCR) (Negative) Influenza Type B (PCR) (Negative) RSV RNA Qual (PCR) (Negative) SARS-CoV-2 RNA (RT-PCR) (Negative) Independent Interpretation I performed an independent interpretation of an: CT Scan (CTA chest/abdomen: Chronic findings with no acute findings no pulmonary embolism, no acute intra-abdominal pathology.) Radiology Impression Discussion of test interpretation with radiology: I have reviewed the radiologist's reading. Discharge Plan Discharge Clinical Impression: Anxiety Patient Disposition: Still a Patient Prescriptions: No Action (DME) BD Safety-Jackie Detachable Needl 3 mL 25 gauge x 5/8 syringe See Rx Instructions .ROUTE .MEDSUPPLY Qty: 100 12RF Rx Instructions: As directed gabapentin 100 mg Capsule 200 mg PO BID Patient Comments: [facility] uncertain if medication was discontinued. They have him at 300mg melatonin 10 mg Tablet 10 mg PO BEDTIME nystatin-triamcinolone 100,000-0.1 unit/g-% Cream 1 appl TOPICAL BID Rx Instructions: apply to rash on groin and foreskin diclofenac sodium 1 % Gel 1 ea TOPICAL TID Rx Instructions: RIGHT HIP amlodipine 2.5 mg tablet 2.5 mg PO DAILY lorazepam [Ativan] 1 mg tablet 1 mg PO DAILY Qty: 3 0RF divalproex [Depakote] 500 mg tablet,delayed release (DR/EC) 500 mg PO BEDTIME pantoprazole 40 mg tablet,delayed release (DR/EC) 40 mg PO DAILY@0630 Gemtesa 75 mg tablet 75 mg PO DAILY metoprolol tartrate 25 mg Tablet 12.5 mg PO BID Qty: 45 0RF Protocol: Hold for SBP/HR < HOLD for SBP < : 120 HOLD for HR < : 60 Rx Instructions: hold for SBP < 120 and pulse < 60 venlafaxine [Effexor XR] 150 mg capsule,extended release 24hr 150 mg PO DAILY tamsulosin 0.4 mg capsule 0.4 mg PO DAILY venlafaxine [Effexor XR] 37.5 mg capsule,extended release 24hr 37.5 mg PO DAILY hydroxyzine HCl 25 mg tablet 25 mg PO Q8H PRN (Reason: Anxiety) lorazepam 1 mg tablet 1 mg PO DAILY Rx Instructions: tapering today 04/23/2024 apixaban 5 mg tablet 5 mg PO BID Print Language: Grenadian
--- OUTSIDE RECORDS SUMMARY | 2024-05-20 07:28 | XMS_ITS ---
Author Organization [facility] [place] Address Unknown Allergies, Adverse Reactions, Alerts Substance Reaction Status Noted Date Resolved Date Gabapentin active 07/02/2022 Codeine active 07/02/2022 Carisoprodol active 07/02/2022 Problems Problem Status Start Date End Date OTHER MECHANICAL COMPLICATIO N OF INTERNAL LEFT HIP PROSTHESIS, SUBSEQUENT ENCOUNTER (Primary) (T84.091D - ICD-10-CM) ACTIVE 08/28/2022 ENCOUNTER FOR SURGICAL AFTER CARE FOLLOWING SURGERY ON THE DIGESTIVE SYSTEM (Primary) (Z48.815 - ICD-10-CM) RESOLVED 023 08/28/2022 DISLOCATION OF INTERNAL LEFT HIP PROSTHESIS, SUBSEQUENT ENCOUNTER (T84.021D - ICD-10-CM) ACTIVE 08/28/2022 UNSPECIFIED INTESTINAL OBSTR UCTION, UNSPECIFIED TO PARTIAL VERSUS COMPLETE OBSTRUCTION (K56.609 - ICD-10-CM) RESOLVED 07/02/2022 08/28/2022 FALL ON SAME LEVEL FROM SLIP PING, TRIPPING AND STUMBLING WITHOUT SUBSEQUENT STRIKING AGAINST OBJECT, SUBSEQUENT ENCOUNTER (W01.0XXD - ICD-10-CM) ACTIVE 08/28/2022 ESSENTIAL (PRIMARY) HYPERTENSION (I10 - ICD-10-CM) ACT EARLE 07/02/2022 HYPERLIPIDEMIA, UNSPECIFIED (E78.5 - ICD-10-CM) ACTIVE 08/28/2022 PAROXYSMAL ATRIAL FIBRILLATION (I48.0 - ICD-10-CM) ACT EARLE 08/28/2022 PERSONAL HISTORY OF MALIGNAN T NEOPLASM OF PROSTATE (Z85.46 - ICD-10-CM) ACTIVE 07/02/2022 INCISIONAL HERNIA WITHOUT OB STRUCTION OR GANGRENE (K43.2 - ICD-10-CM) ACTIVE 08/28/2022 DEPRESSION, UNSPECIFIED (F32.A - ICD-10-CM) ACTIVE 07/02/2022 ANXIETY DISORDER, UNSPECIFIED (F41.9 - ICD-10-CM) ACTI VE 07/02/2022 ACUTE POSTHEMORRHAGIC ANEMIA (D62 - ICD-10-CM) ACTIVE 08/28/2022 PERSONAL HISTORY OF PULMONAR Y EMBOLISM (Z86.711 - ICD-10-CM) ACTIVE 08/28/2022 COVID-19 (U07.1 - ICD-10-CM) RESOLVED 07/11/2022 08/28/2022 JACKET CHANGER (CURRENT) USE OF A NTICOAGULANTS (Z79.01 - ICD-10-CM) ACTIVE 08/28/2022 UNSPECIFIED HEARING LOSS, UN SPECIFIED EAR (H91.90 - ICD-10-CM) ACTIVE 08/28/2022 HISTORY OF FALLING (Z91.81 - ICD-10-CM) ACTIVE 0 08/28/2022 OTHER THROMBOPHILIA (D68.69 - ICD-10-CM) ACTIVE 07/02/2022 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) ACTIVE 07/02/2022 MUSCLE WEAKNESS (GENERALIZED) (M62.81 - ICD-10-CM) ACT EARLE 07/02/2022 COAGULATION DEFECT, UNSPECIFIED (D68.9 - ICD-10-CM) AC TIVE 07/02/2022 DEFICIENCY OF OTHER SPECIFIE D B GROUP VITAMINS (E53.8 - ICD-10-CM) ACTIVE 07/02/2022 Results * Individual Tests: COVID Screening Performed by: Point of Care Testing Component Value Range Date SARS coronavirus 2 Ag Positive 2022 08:00 am EDT * Individual Tests: COVID Screening Performed by: Point of Care Testing Component Value Range Date SARS coronavirus 2 Ag Positive 2022 08:00 am EDT * Individual Tests: COVID Screening Performed by: Point of Care Testing Component Value Range Date SARS coronavirus 2 Ag Positive 2022 08:00 am EDT * Individual Tests: COVID Screening Performed by: Point of Care Testing Component Value Range Date SARS coronavirus 2 Ag Negative 2022 08:00 am EDT * Individual Tests: COVID Screening Performed by: Point of Care Testing Component Value Range Date SARS coronavirus 2 Ag Negative 2022 07:00 am EST Encounters Encounter Performer Performer Role Encounter Diagnoses Location Date [facility] 07/02/2022 07:25 pm EST - 07/12/2022 07:38 pm EDT Discharge - Discharged to home or self care - Home - Private home/apt. with [facility] [place] 07/13/2022 03:15 am EDT - 07/20/2022 10:07 am EDT [facility] [place] 08/28/2022 02:17 pm EDT - 09/16/2022 03:41 am EDT Discharge - Discharged / Transferred to another hospital - [facility] [place] 09/16/2022 01:15 pm EDT - 09/17/2022 10:36 am EDT Reason For Referral Pain (uncontrolled) Immunizations Vaccine Date TB 2 Step Mantoux Skin Test 07/03/2022 0 1:10 pm EST Influenza (high dose) 02/27/2022 12:00 a m EDT COVID-19 Vaccine Dose 1 07/05/2020 12:00 am EST COVID-19 Vaccine Dose 2 07/19/2020 12:00 am EDT COVID-19 Vaccine Additional Dose/Booster 09/07/2022 12:00 am EDT COVID-19 Vaccine Additional Dose/Booster 04/11/2021 12:00 am EST PCV (Prevnar) 20 05/20/2019 12:00 am EST Social History
--- OUTSIDE RECORDS SUMMARY | 2024-05-20 07:28 | XMS_ITS ---
Author Organization [facility] Address [address] [place] [address] Care Team Providers Care Pharmaceutical Representative Name Role Phone Thania Almaraz MD Primary Care Provider Víctor Graham Unavailable [phone] REASON FOR VISIT Patient presents today for discuss colonoscopy Encounters Encounter Location Date Provider Diagnosis [facility] [address] [place] [address] 10/11/2023 Víctor Brown PLAN OF TREATMENT No Information
--- OUTSIDE RECORDS SUMMARY | 2024-05-20 07:28 | XMS_ITS | Patient Health Record ---
Author Organization [facility] Address [address] [place] [address] Care Team Providers Care Professor Of Environmental Engineering Name Role Phone Po Thania FALK Primary Care Provider Víctor Graham Unavailable [phone] ALLERGIES Allergen (clinical drug ingredient) Drug/Non Drug [...] or abscess without bleeding (K57.32) Active confirmed 8585857 Problem Encounter for screening for malignant neoplasm of colon (Z12.11) Active confirmed 519813583 Problem History of adenomatous polyp of colon (Z86.010) Active confirmed 360477024 Problem Constipation (K59.00) Active confirmed Constipation (90775096) Problem 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) Active confirmed 885859952 Problem Nausea (R11.0) Active confirmed Nausea (057391289) Problem Encounter for screening for malignant neoplasm of rectum (Z12.12) Active confirmed Screening for malignant neoplasm of rectum (584942742) Problem Gastroesophageal reflux disease without esophagitis (K21.9) Active confirmed 636219665 Problem Colon adenomas (D12.6) Active confirmed 095118374 Problem 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) Active confirmed 19046616 Problem Oropharyngeal dysphagia (R13.12) Active confirmed 35573863 Problem 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) Active confirmed 28414169 Problem Pharyngeal dysphagia (R13.13) Active confirmed 17860876132190 Problem Diverticulosis of colon (K57.30) Active confirmed Diverticulosi s of colon (234892494) Encounters Encounter Location Date Provider Diagnosis [facility] [address] [place] [address] 10/11/2023 Víctor Brown [facility] [address] [place] [address] 10/11/2023 Víctor Brown PLAN OF TREATMENT Pending Test Test Name Order Date XR BARIUM SWALLOW-ESOPHAGUS 10/14/2018 XR BARIUM SWALLOW-ESOPHAGUS 06/30/2019 Future Test Test Name Order Date UPPER GI ENDOSCOPY 03/22/2015 COLONOSCOPY 03/22/2015 COLONOSCOPY 07/26/2016 COLONOSCOPY 06/11/2017 COLONOSCOPY 10/14/2018 UPPER GI ENDOSCOPY 06/01/2020 COLONOSCOPY 06/01/2020 COLONOSCOPY 05/03/2022 Insurance Providers Payer Name Payer Address Payer Phone Subscriber Number Group Number Insured Name Patient Relationship to Insured Coverage Start Date Coverage End Date MEDICARE OF [place] [address] [place] [address] [id number] KELLIE CASSIDY Self - patient is the insured [employer] ATT[employer] CLAIMS [address] [place] [address] [id number] KELLIE CASSIDY Self - patient is the insured MEDICAL (GENERAL) HISTORY Medical History History ICD Code Hypertension Peptic ulcer disease--s/p Vagotomy and p yloroplasty in his teens Prostate cancer Depression and anxiety Back pain Denies NV,DM,CVA,Lung disease,renal dise ase Dumping syndrome Diverticulitis in 06/2012, 2015, and in 10/2015 --descending colon involved on CT scan-treated as an inpt with antibiotics EGD in 02/2010--normal-s/p p yloroplasty--bx neg for celiac disease and H.pylori Reported neg colonoscopy in 05/2009 in [facility] in 01/2007-sphincterotomy and stone removal [...] replacement x 2 in summer 2019 at [facility]
--- OUTSIDE RECORDS SUMMARY | 2024-05-20 07:29 | XMS_ITS | Continuity of Care Document ---
Author Organization [facility], [facility] Address [address] [place] [address] Care Team Providers Care Deblocker Name Role Phone DIYA MARIN - 2ND FLOOR OTHER CHINA RENO Primary Care Provider Assessment No assessment recorded. Plan of Treatment Reminders Order Date Submit Date Provider Last Modified By Organization Details Last Modified Time Details Appointments None record ed. Lab None record ed. Referral None record ed. Procedures None record ed. Surgeries None record ed. Imaging None record ed. Medication Orders None record ed. Patient TargetsNo targets recorded. Patient InstructionsNo instructions recorded. Reason for Referral None Reported. Problems Name Problem SNOMED Code Status Onset Date Resolution Date Notes Provider Name and Address Organization Details Recorded Time History of total hip arthroplast y 487573476579 Active 2019 Crista Copperas [place] patel, [facility] 0 12:56:15 Gastroesoph ageal reflux disease without esophagitis 260870534 Active 2019 Crista Ames null, [facility] 0 12:56:19 Mixed anxiety and depressive disorder 897862562 Active 2019 Crista Copperas [place] patel, [facility] 0 12:56:21 Essential hypertensio n 08208613 Active 2019 Crista Otf null, [facility] 0 12:56:23 History of malignant neoplasm of prostate 275917998 Active 2019 Crista Otf null, [facility] 0 12:56:26 COVID-19 698893634 Active 2019 Crista patel, [facility] 0 12:56:41 Anemia due to blood loss 069653210 Active 2019 Crista Vanessa null, [facility] [employer] [facility] 0 12:58:53 Reduction of dislocation of hip Active 2019 ROSANA VILLEDA NP [address] , [address], [place], [address], [facility] [employer] [facility] 0 08:57:29 Open wound 106650192 Active 2019 ROSANA VILLEDA NP [address], [address], [place], [address], [facility] [employer] [facility] 0 09:01:46 Pulmonary embolism 30589141 Active 2019 ROSANA VILLEDA NP [address], [address], [place], [address], [facility] [employer] [facility] 0 09:03:09 Fall Active 2019 ROSANA VILLEDA NP [address], [address], [place], [address], [facility] [employer] [facility] 0 10:40:41 Postoperati ve wound infection 25341065 Active 2019 Smitha Sparks MD [address] , [address], [place], [address], [facility] [employer] [facility] 0 00:12:33 Dislocation of hip joint prosthesis 014830605 Active 2019 Smitha Sparks MD [address], [address], [place], [address], [facility] [employer] [facility] 0 00:12:36 Insomnia 106722204 Active 2019 Smitha Sparks MD [address] [place] [address], [address], [place], [address], [facility] [employer] [facility] 0 00:21:52 Chronic back pain 997554823 Active 2019 Smitha Sparks MD [address], [address], [place], [address], [facility] [employer] [facility] 0 00:22:56 Gout 62619013 Active 2019 Priya Le MD [address], [address], [place], [address], [facility] [employer] [facility] 0 14:03:47 Minimal cognitive impairment 658028443 Active 2019 Smitha Sparks MD [address], [address], [place], [address], [facility] 0 16:44:57 Paroxysmal atrial fibrillatio n 787703596 Active 2022 ALEXIS DOLAN NP [address], [address], [place], [address], [facility] 3 15:10:55 History of pulmonary embolus 428817511 Active 2022 ALEXIS DOLAN NP [address], [address], [place], [address], [facility] 3 15:11:44 Delirium 1239811 Active 2022 ALEXIS DOLAN NP [address], [address], [place], [address], [facility] 3 15:27:16 Surgical incision wound of skin 199058325901 Active 2022 ROSANA VILLEDA NP [address], [address], [place], [address], [facility] 3 14:38:56 Abrasion 543434450 Active 2022 Antonieta Brito NP [address], [address], [place], [address], [facility] 3 10:17:57 Asthenia 33364466 Active 2022 ALEXIS DOLAN NP [address], [address], [place], [address], [facility] 3 16:13:31 Hernia of anterior abdominal wall 751945446 Active 2022 Antonieta Brito NP [address], [address], [place], [address], [facility] 3 16:23:51 Hypoxia 074493046 Active 2022 Antonieta Brito NP [address], [address], [place], [address], [facility] 3 11:25:28 Altered mental status 797185610 Active 2022 Antonieta Brito NP [address], [address], [place], [address], [facility] [employer] [facility] 3 11:31:49 Loose stool 812345415 Active 2022 Antonieta Brito NP [address], [address], [place], [address], [facility] [employer] [facility] 3 09:25:29 Headache 86639772 Active 2022 Antonieta Brito NP [address], [address], [place], [address], [facility] [employer] [facility] 3 09:40:59 Weight decreased 434651551 Active 2022 Antonieta Brito NP [address], [address], [place], [address], [facility] [employer] [facility] 3 09:42:25 Hemorrhoids 62753666 Active 2022 Antonieta Brito NP [address], [address], [place], [address], [facility] [employer] [facility] 3 08:25:10 Seasonal allergy 719532160 Active 2023 Antonieta Brito NP [address], [address], [place], [address], [facility] 4 12:19:01 Hearing loss 60999742 Active 2024 Ayo Jeffrey MD [address], [address], [place], [address], [facility] [employer] [facility] 5 09:57:58 Problem Notes None recorded. Medical Equipment None Reported. Allergies Allergen ID Allergen Name Allergen Category Reaction Reaction Severity Criticality Documentation Date Start Date Code Code System Note Provider Name and Address Organization Details Recorded Time [id number] 6477395x4 2824e Non-stero idal anti-infl ammatory agent (product) medicatio n Not available Not available Not available 11/17/2019 89324 005 SNOMED Not Available Not Available Not Available [id number] 650309355 [id number] 2824e hydrochlo rothiazid e medicatio n Not available Not available Not available 11/17/2019 5487 RxNorm Not Available Not Available Not Available [id number] [id number] 2824e aspirin medicatio n Not available Not available Not available 11/17/2019 1191 RxNorm Not Available Not Available Not Available [id number] 462654749 [id number] 2824e codeine medicatio n Not available Not available Not available 11/17/2019 2670 RxNorm Not Available Not Available Not Available [id number] 961293186 [id number] 2824e Topamax medicatio n Not available Not available Not available 11/17/2019 52211 3 RxNorm Not Available Not Available Not Available [id number] 126230837 [id number] 2824e Soma medicatio n Not available Not available Not available 11/17/2019 18306 2 RxNorm Not Available Not Available Not Available Medications Name Sig Start Date Stop Date Status Note LastModified by Organization Details LastModified Time lorazepam 1 mg tablet 1 mg po q6 hr PRN 024 active Not Available Not Available Not Avai lable Ativan 0.5 mg tablet 2 tabs po BID and 2 tabs po qd prn From E KIT 024 active Not Available Not Available Not Avai lable oxycodone 5 mg tablet 5 mg po BID prn (may give within 4 hrs of previous dose) 024 active Not Available Not Available Not Avai lable Vitals Date Recorded Body height Body mass index (BMI) Body weight Heart rate Respiratory rate Body temperature Oxygen saturation Oxygen saturation in Arterial blood by Pulse oximetry Systolic blood pressure Diastolic blood pressure Provider Name and Address Organization Details Last Updated DateTime 5 182.88 cm 30 kg/m2 838525. 91 g 78 /min 18 /min 98.2 [degF] 96 % 96 % 157 mm[Hg] 64 mm[Hg] Antonieta Brito NP [address], [address], [place], [address] - [facility] 5 09:17:40 Social History Question Answer Notes LastModified by Organizat ion Details LastModified Time Tobacco Smoking Status Former Smoker Quit 40 years ago Not Available [employer] 02/23/2020 03:13:21 Do You Have An Advance Directive? Yes [email or web address] Information not available 09/27/2022 What Is Your Level Of Alcohol Consumption? None [id number] Information not available 02/23/2020 How Much Tobacco Do You Chew? None [id number] Information not available 02/23/2020 What Is Your Code Status? DNR/DNI No Dialysis, No Artificial Nutrition [email or web address] Information not available 09/27/2022 Do You Or Have You Ever Used E-cigarettes Or Vape? Never Used Electronic Cigarettes [id number] Information not available 02/23/2020 Where Do You Live? Apartment Lives Alone Information not available 11/19/2023 Legal Guardian? No Informati on not available 09/28/2022 Do You Have A Medical Power Of Executive Admin? Yes Has HCP, Not Invoked Information not available 09/28/2022 What Was The Date Of Your Most Recent Tobacco Screening? 05/01/2024 [email or web address] Information not available 05/01/2024 Do You Have An Out Of Hospital DNR? Yes Information not available 09/28/2022 What Is Your Relationship Status? Information not available 09/28/2022 Do You Or Have You Ever Used Smokeless Tobacco? Never Used Smokeless Tobacco [id number] Information not available 02/23/2020 Do You Use Any Illicit Or Recreational Drugs? No [email or web address] Information not available 09/27/2022 Has Tobacco Cessation Counseling Been Provided? No N/a As Pt No Longer Smokes Information not available 09/28/2022 How Many Years Have You Smoked Tobacco? 15 [id number] Information not available 02/23/2020 Do You Or Have You Ever Used Any Other Forms Of Tobacco Or Nicotine? No [email or web address] Information not available 09/27/2022 Sex: Unknown Functional Status None recorded. Mental Status None recorded. Family History Relationship Description Onset Age of this Age Resolved Age Notes LastModified by Organization Details LastModified Time Mother Malignant tumor of breast [email or web address] Not available 2022 14:44:55 Mother Malignant tumor of lung [email or web address] Not available 2022 14:45:08 Notes:father: , dm, ARF, glaucoma Medical History No medical history recorded. Immunizations Vaccine Type Date Status Note Provider Nam e and Address Organization Details Recorded Time Influenza, adjuvanted, quadrivalent, PF 3 completed [facility] 16:55:16 Influenza, adjuvanted, quadrivalent, PF 2 completed Page Dugan null, [facility] 06/14/2023 16:56:38 Influenza, split virus, quadrivalent, preservative 0 completed Ana Elliott [facility] 02/19/2020 11:13:50 SARS-COV-2 (COVID-19) vaccine, UNSPECIFIED 3 completed Ileana Amaya [facility] 11/19/2023 10:17:34 Td(adult) unspecified formulation 8 completed Ileana Amaya [facility] 11/22/2023 15:52:58 Pneumococcal conjugate PCV 13 7 completed Ileana Amaya [facility] 11/22/2023 15:53:12 pneumococcal polysaccharide PPV23 4 completed Ileana Amaya [facility] 11/22/2023 15:53:30 pneumococcal polysaccharide PPV23 8 completed Ileana Amaya [facility] 11/22/2023 15:53:36 pneumococcal polysaccharide PPV23 0 completed Ileana Amaya [facility] 11/22/2023 15:53:43 SARS-COV-2 (COVID-19) vaccine, UNSPECIFIED 1 completed Ileana Amaya [facility] 11/22/2023 15:54:14 SARS-COV-2 (COVID-19) vaccine, UNSPECIFIED 1 completed [facility]/22/2023 15:54:22 SARS-COV-2 (COVID-19) vaccine, UNSPECIFIED 1 completed Ileana Amaya [facility] 11/22/2023 15:54:39 zoster, unspecified formulation 8 completed [facility]/22/2023 15:55:00 zoster, unspecified formulation 8 completed Ileana Amaya [facility] 11/22/2023 15:55:12 Past Encounters Encounter ID Performer Location Encounter Start Date Encounter Closed Date Diagnosis/Indication Diagnosis SNOMED-CT Code Diagnosis ICD10 Code Diagnosis Note [id number] Antonieta Brito NP [facility] [address] [place] [address] 05/01/2024 08:25:47 05/04/2024 13:28:46 Asthenia 64510868 R53.1 Weak at baseline, is now TTWB with walker from recent ER visitPT/OT eval and treatSafet y precaution s reviewed.s upportive carerec using orthodic as much as possible with leg shortening Adult fail ure to thrive syndrome 337792923 R62.7 Continuing to encourage pt to consider other living situations as current situation is difficult to manage.obie gthy discussion on need to consider LONGTERM or increased supportive environmen t in near future as he is not able to manage in independen t living with repeated fallssocia l worker to discuss with pthe is currently alert and oriented and able to make his own decisions Mixed anxi ety and depressive disorder 334589454 F41.8 with hx of anxiety and depression with report of vivid dreams lately Do not recommend ativan with hx of misuse and decreased o2 sats in past conteffexo r 187.5 mg qd, Buspar 10 mg q am and 15 mg qhs, melatonin 10 mg qhs and hydroxyzin e 25 mg q 8 hrs prn.Monito r mood and behaviorss upportive prn Chronic back pain 317629 002 G89.29 Chronic pain to hip and backIs followed by Dr. Lara for steroid shots outpt and dr colorado when hereContin uelidocain e patch to hip and back daily, diclofenac gel to right hip TID, APAP 650 mg q 4 hrs prn, gabapentin [address] po bid[address] with Dr Stover for Left hip pain and has appt coming up-he will left nsg knowmonito r Essential hypertension 31692214 I10 In good control.Co ntinueamlo dipine 2.5 mg po qdmetoprol ol 12.5 mg BID, hold for SBP<120 or pulse<60Mo nitor BP and labs as outpt. Paroxysmal atrial fibrillation 252476992 I48.0 Rate in good control on meds as above.Cont inueeliqui s 5 mg BID for AC.Monitor HR and bleeding risk as outpt. Gastroesop hageal reflux disease without esophagitis 570003279 K21.9 No current sxs.Contin uepantopra zole 40 mg qdMonitor GI sxs as outpt. History of pulmonary embolus 896187332 Z86.711 ContinueEl iquis 5 mg BIDMonitor 05/01/24 refer for pulmonolog y consult for report of sob with activity, intermitte nt o2 sats, etc...? sob related to panic/anxi ety or something more Anemia due to blood loss 430495755 D50.0 Continues to be stable.Mon itor cbc and bmp weekly, labs pending today Seasonal allergy 1357459 04 J30.2 No current sxs.Contin uecetirizi ne 10 mg qd.Monitor Overactive urinary bladder 933694420 N32.81 Continueta msulosin 0.4 mg qd and gemtesa 75 mg qdMonitor Fall 5265814 R29.6 hx of recurrent falls on ac currentlyh e is insistent on staying on ac and educated on risk and agreeable to plan to dc dc'd oxycodone and ativan likely contributi ng to fallssee above asthenia History of total hip arthroplasty 6349776795 06 Z96.649 hx of total left hip arthroplas tyfu with Dr. Stover as above [id number] Ayo Jeffrey MD [address] [address] 05/02/2024 09:37:26 05/04/2024 13:13:13 Recurrent falls 855807202 R29.6 see HPIrecurre nt falls and hospitaliz ations recentlyPT OT eval and treatmonit or fall risk and need for increased support in communityq uestion opioids and benzo contributi ng to fall risk no longer utilizingc ontinues on AC for a fib - aware of risk benefit History of total hip arthroplasty 4433667708 06 Z96.649 see above with hx of total left hip arthroplas ty and recurrent dislocatio nsf/u with ortho in placefollo w ortho recs and update with concerns Adult fail ure to thrive syndrome 856444828 R62.7 question need to transition to assisted living or LTC with multiple recent hospitaliz ationscurr ently not safe to return home Mixed anxi ety and depressive disorder 078225405 F41.8 stable on out patient medscontin uedpsych eval prnmonitor mood Essential hypertension 19453650 I10 norvasc 2.5 mg qdmetoprol ol 12.5 mg bidmonitor bp and need to titrate Paroxysmal atrial fibrillation 745542215 I48.0 eliquis 5 mg bidmetopro lol 12.5 mg bidmonitor for rate control Gastroesop hageal reflux disease without esophagitis 887073034 K21.9 protonix 40 mg qdmonitor sx relief History of pulmonary embolus 893609415 Z86.711 see abovemaint ained on eliquis Chronic re tention of urine 083526688 R33.8 maintained on flomax 0.4 mg qdmonitor for retentionu rology eval prn Chronic back pain 003642 002 G89.29 now off oxy with concern contributi ng to fall riskfollow ed by ortho Insomnia 131094284 G47.0 9 melatonin 10 mg qhsmonitor for effect Headache 13118480 R51.9 Hearing loss 93483549 H9 0.0 need to shoutconsi keaton need for audiology eval Minimal co gnitive impairment 976592581 G31.84 appears mild at baselinemo nitor cognitive function and need to invoke [id number] Antonieta Brito NP [facility] [address] [address] 05/08/2024 19:22:41 05/12/2024 09:33:23 Recurrent falls 503495680 R29.6 see HPIrecurre nt falls and hospitaliz ations recentlyPT OT eval and treatmonit or fall risk and need for increased support in communityq uestion opioids and benzo contributi ng to fall risk no longer utilizingc ontinues on AC for a fib - aware of risk benefit History of total hip arthroplasty 7458350387 06 Z96.649 see above with hx of total left hip arthroplas ty and recurrent dislocatio nsTTWBorth otic shoe recommende df/u with ortho in placefollo w ortho recs and update with concerns Paroxysmal atrial fibrillation 446272385 I48.0 eliquis 5 mg bidmetopro lol 12.5 mg bidmonitor for rate control Adult fail ure to thrive syndrome 656466096 R62.7 question need to transition to assisted living or LTC with multiple recent hospitaliz ationscurr ently not safe to return home and looking into [facility] Mixed anxi ety and depressive disorder 617496942 F41.8 stable on out patient medscontin uedpsych eval prnmonitor mood Essential hypertension 63287502 I10 bp stablenorv asc 2.5 mg qdmetoprol ol 12.5 mg bidmonitor bp and need to titrate Minimal co gnitive impairment 769588063 G31.84 appears mild at baselinemo nitor cognitive function and need to invoke Gastroesop hageal reflux disease without esophagitis 034528949 K21.9 protonix 40 mg qdmonitor sx relief Chronic re tention of urine 184271220 R33.8 contflomax 0.4 mg qdmonitor for retentionu rology eval prn Chronic back pain 995051 002 G89.29 off oxy with concern contributi ng to fall riskfollow ed by orthodo not rec restarting Insomnia 650394894 G47.0 9 melatonin 10 mg qhsmonitor for effect Asthenia 87859362 R53.1 Weak at baseline, is now TTWB with walker from recent ER visitPT/OT eval and treatSafet y precaution s reviewed.s upportive carerec using orthodic as much as possible with leg shortening Fall R29.6 hx of recurrent falls on ac currentlyh e is insistent on staying on ac and educated on risk and agreeable to plan to dc dc'd oxycodone and ativan likely contributi ng to fallssee above asthenia History of pulmonary embolus 531661696 Z86.711 ContinueEl iquis 5 mg BIDMonitor 05/01/24 refer for pulmonolog y consult for report of sob with activity, intermitte nt o2 sats, etc...? sob related to panic/anxi ety or something more Overactive urinary bladder 307847987 N32.81 Continueta msulosin 0.4 mg qd and gemtesa 75 mg qdMonitor [id number] [facility] [address] [place] [address] 05/15/2024 09:04:20 05/18/2024 16:34:25 History of total hip arthroplasty 7063902701 06 Z96.649 see above with hx of total left hip arthroplas ty and recurrent dislocatio nsTTWB per orders on release from hospitalor topher harper recommende df/u with ortho in place Dr Octavio reaves ortho recs and update with concerns Recurrent falls 61314780 2 R29.6 see HPI for notesrecur rent falls and hospitaliz ations recentlyPT OT eval and treatmonit or fall risk and need for increased support in communityq uestion opioids and benzo contributi ng to fall risk no longer utilizingc ontinues on AC for a fib - aware of risk benefit Paroxysmal atrial fibrillation 594988454 I48.0 conteliqui s 5 mg bidmetopro lol 12.5 mg bidmonitor for rate control Adult fail ure to thrive syndrome 867543312 R62.7 question need to transition to assisted living or LTC with multiple recent hospitaliz ationshe plans to return to independen t living and is his own person, however not recommende dAnother list of [facility] is given to him and he reports he will visit a few Mixed anxi ety and depressive disorder 284873036 F41.8 stable on out patient medscontin uedpsych eval prnmonitor mood Essential hypertension 69064728 I10 bp stable, occ on the higher sidenorvas c 2.5 mg qdmetoprol ol 12.5 mg bidmonitor bp and need to titratewil l leave goal at SBP <150 as he is a high risk Minimal co gnitive impairment 928970422 G31.84 appears mild at baseline and able to make his own decisionsm onitor cognitive function and need to invoke Gastroesop hageal reflux disease without esophagitis 969946900 K21.9 protonix 40 mg qdmonitor sx relief Chronic re tention of urine 448003813 R33.8 contflomax 0.4 mg qdmonitor for retentionu rology eval prn Chronic back pain 267144 002 G89.29 off oxy with concern contributi ng to fall riskfollow ed by orthodo not rec restarting Insomnia 265536627 G47.0 9 melatonin 10 mg qhsmonitor for effect Asthenia 75746546 R53.1 Weak at baseline, is now TTWB with walker from recent ER visitPT/OT eval and treatSafet y precaution s reviewed.s upportive carerec using orthodic as much as possible with leg shortening Health Concerns Section Related Observation LastModified by Organization Detai ls LastModified Time None Recorded Concern Status LastModified by Organization Details LastModified Time None Recorded Payers Encounter Date Sequence Insurance Name Policy Number Policy Hood Covered Member ID Hood Member ID Guarantor Name 05/15/2024 2 [place] [id number] Ottoniel Salas [id number] Ottoniel Salas 05/15/2024 1 [place] [employer] Ottoniel Salas [id number] Ottoniel Salas Notes Date Note Type Note Provider Name and Address Organization Details Recorded Time 05/15/2024 text/html Pt is seen for a n acute visit summary. Jay Jay is a 78 yo male with pmh hx above sig for afib on xarelto presented to [facility] ER after being found on the floor covered in feces after a fall. of note:also had a fall 2 days prior in the ED and released on 04/27. He was recommended for TTWB LLE and rehab. of note; hx of many recent falls and failure to thrive in the community. He has been at this rehab many times for falls and ER visits since discharge to congregate housing on 09/25/2023 from LT here. Pt is planned for dc on Saturday and stating he has not looked at any [facility] as recommended multiple times here and he continues to not follow up with this. salvage worker gave him a list again about the assisted living facilities and this DAMPENER OPERATOR also reiterated he would be able to have socialization, increased services, and meals which could help. He also states he has a wheelchair at [facility] [employer] but has to pick it up. His old one was thrown out and was not working. He states he financially is not sure how that would work and he is aware there are consultants at the facilities that could help him understand the finances. On exam, He denies any pain and does not seems anxious today. Lungs CTA and no other complaints. He does not have his orthodic on and states it is heavy on his foot.He is also reminded this helps with the falls from the shortening of his hip. Plan to fu with Dr. Stover 2 weeks ago for his hip and will let nursing know about the fu appt which he thinks is on 05/27/24 for his hip.note; pulmonology consult pending His PMH includes HTN, parox. 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 Discussed TATE and wishes to continue DNR/DNI and transfer to hospital as per tate from LAVERNE Brito, [facility] [address], [address], [place], [address], [facility] - [employer] [facility] 05/15/2024 16:58:38
--- OUTSIDE RECORDS SUMMARY | 2024-05-20 07:29 | XMS_ITS | Continuity of Care Document ---
Author Organization [facility], [facility] Address [address] [place] [address] Care Team Providers Care Magistrate Judge Name Role Phone DIYA MARIN - 2ND FLOOR OTHER [place] RENO Primary Care Provider [phone] Assessment No assessment recorded. Plan of Treatment [...] Time History of total hip arthroplast y 790467353954 Active 2019 Crista Denveralfa patel, [facility] 0 12:56:15 Gastroesoph ageal reflux disease without esophagitis 463362716 Active 2019 Crista Ames null, [facility] 0 12:56:19 Mixed anxiety and depressive disorder 005464926 Active 2019 Crista Denveralfa patel, [facility] 0 12:56:21 Essential hypertensio n 48181164 Active 2019 Crista Otf null, [facility] 0 12:56:23 History of malignant neoplasm of prostate 014899967 Active 2019 Crista Otf null, [facility] 0 12:56:26 COVID-19 556315557 Active 2019 Crista patel, [facility] 0 12:56:41 Anemia due to blood loss 509753077 Active 2019 Crista Vanessa null, [facility] 0 12:58:53 Reduction of dislocation of hip Active 2019 ROSANA VILLEDA NP [address] , [address], [place], [address], [facility] 0 08:57:29 Open wound 448231307 Active 2019 ROSANA VILLEDA NP [address], [address], [place], [address], [facility] 0 09:01:46 Pulmonary embolism 80955662 Active 2019 ROSANA VILLEDA NP [address], [address], [place], [address], [facility] 0 09:03:09 Fall Active 2019 ROSANA VILLEDA NP [address], [address], [place], [address], [facility] 0 10:40:41 Postoperati ve wound infection 81495898 Active 2019 Smitha Sparks MD [address] , [address], [place], [address], [facility] 0 00:12:33 Dislocation of hip joint prosthesis 471824897 Active 2019 Smitha Sparks MD [address], [address], [place], [address], [facility] 0 00:12:36 Insomnia 364720507 Active 2019 Smitha Sparks MD [address] [place] [address], [address], [place], [address], [facility] 0 00:21:52 Chronic back pain 090038046 Active 2019 Smitha Sparks MD [address], [address], [place], [address], [facility] 0 00:22:56 Gout 45887332 Active 2019 Priya Le MD [address], [address], [place], [address], [facility] 0 14:03:47 Minimal cognitive impairment 257032301 Active 2019 Smitha Sparks MD [address], [address], [place], [address], [facility] 0 16:44:57 Paroxysmal atrial fibrillatio n 120632852 Active 2022 ALEXIS DOLAN NP [address], [address], [place], [address], [facility] 3 15:10:55 History of pulmonary embolus 725557390 Active 2022 ALEXIS DOLAN NP [address], [address], [place], [address], [facility] 3 15:11:44 Delirium 4003710 Active 2022 ALEXIS DOLAN NP [address], [address], [place], [address], [facility] 3 15:27:16 Surgical incision wound of skin 161319898335 Active 2022 ROSANA VILLEDA NP [address], [address], [place], [address], [facility] 3 14:38:56 Abrasion 305095768 Active 2022 Antonieta Brito NP [address], [address], [place], [address], [facility] 3 10:17:57 Asthenia 21336904 Active 2022 ALEXIS DOLAN NP [address], [address], [place], [address], [facility] 3 16:13:31 Hernia of anterior abdominal wall 280071504 Active 2022 Antonieta Brito NP [address], [address], [place], [address], [facility] 3 16:23:51 Hypoxia 338268791 Active 2022 Antonieta Brito NP [address], [address], [place], [address], [facility] 3 11:25:28 Altered mental status 742141724 Active 2022 Antonieta Brito NP [address], [address], [place], [address], [facility] 3 11:31:49 Loose stool 807831651 Active 2022 Antonieta Brito NP [address], [address], [place], [address], [facility] 3 09:25:29 Headache 60954346 Active 2022 Antonieta Brito NP [address], [address], [place], [address], [facility] 3 09:40:59 Weight decreased 789875275 Active 2022 Antonieta Brito NP [address], [address], [place], [address], [facility] 3 09:42:25 Hemorrhoids 10232245 Active 2022 Antonieta Brito NP [address], [address], [place], [address], [facility] [employer] [facility] 3 08:25:10 Seasonal allergy 939203429 Active 2023 Antonieta Brito NP [address], [address], [place], [address], [facility] [employer] [facility] 4 12:19:01 Hearing loss 79248005 Active 2024 Ayo Jeffrey MD [address], [address], [place], [address], [facility] 5 09:57:58 Problem Notes None recorded. Medical Equipment None Reported. Allergies Allergen ID Allergen Name Allergen Category Reaction Reaction Severity Criticality Documentation Date Start Date Code Code System Note Provider Name and Address Organization Details Recorded Time [id number] 2824e Non-stero idal anti-infl ammatory agent (product) medicatio n Not available Not available Not available 11/17/2019 01800 005 SNOMED Not Available Not Available Not Available [id number] 066722933 [id number] 2824e hydrochlo rothiazid e medicatio n Not available Not available Not available 11/17/2019 5487 RxNorm Not Available Not Available Not Available [id number] 943909837 [id number] 2824e aspirin medicatio n Not available Not available Not available 11/17/2019 1191 RxNorm Not Available Not Available Not Available [id number] 883416899 [id number] 2824e codeine medicatio n Not available Not available Not available 11/17/2019 2670 RxNorm Not Available Not Available Not Available [id number] 199790016 [id number] 2824e Topamax medicatio n Not available Not available Not available 11/17/2019 33331 3 RxNorm Not Available Not Available Not Available [id number] 161085616 [id number] 2824e Soma medicatio n Not available Not available Not available 11/17/2019 62293 2 RxNorm Not Available Not Available Not Available Medications Name Sig Start Date Stop Date Status Note LastModified by Organization Details LastModified Time lorazepam 1 mg tablet 1 mg po q6 hr PRN active Not Available Not Available Not Avai lable Ativan 0.5 mg tablet 2 tabs po BID and 2 tabs po qd prn From E KIT active Not Available Not Available Not Avai lable oxycodone 5 mg tablet 5 mg po BID prn (may give within 4 hrs of previous dose) 024 active Not Available Not Available Not Avai lable Vitals Date Recorded Body height Systolic blood pressure Diastolic blood pressure Provider Name and Address Organization Details Last Updated DateTime 05/02/2024 182.88 cm 135 mm[Hg] 60 mm[Hg] Ayo Jeffrey MD [address], [address], [place], [address], [place] - [facility] 05/02/2024 09:38:01 Social History Question Answer Notes LastModified by Organizat ion Details LastModified Time Tobacco Smoking Status Former Smoker Quit 40 years ago Not Available [employer] 02/23/2020 03:13:21 Do You Have An Advance Directive? Yes [email or web address] Information not available 09/27/2022 What Is Your Level Of Alcohol Consumption? None [id number] Information not available 02/23/2020 How Much Tobacco Do You Chew? None [id number] Information not available 02/23/2020 What Is Your Code Status? DNR/DNI No Dialysis, No Artificial Nutrition Information not available 09/27/2022 Do You Or Have You Ever Used E-cigarettes Or Vape? Never Used Electronic Cigarettes [id number] Information not available 02/23/2020 Where Do You Live? Apartment Lives Alone [email or web address] Information not available 11/19/2023 Legal Guardian? 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 05/01/2024 [email or web address] Information not available 05/01/2024 Do You Have An Out Of Hospital DNR? Yes Information not available 09/28/2022 What Is Your Relationship Status? Information not available 09/28/2022 Do You Or Have You Ever Used Smokeless Tobacco? Never Used Smokeless Tobacco [id number] Information not available 02/23/2020 Do You Use Any Illicit Or Recreational Drugs? No [email or web address] Information not available 09/27/2022 Has Tobacco Cessation Counseling Been Provided? No N/a As Pt No Longer Smokes Information not available 09/28/2022 How Many Years Have You Smoked Tobacco? 15 [id number] Information not available 02/23/2020 Do You Or Have You Ever Used Any Other Forms Of Tobacco Or Nicotine? No [email or web address] Information not available 09/27/2022 Sex: Unknown Functional Status None recorded. Mental Status None recorded. Family History Relationship Description Onset Age of this Age Resolved Age Notes LastModified by Organization Details LastModified Time Mother Malignant tumor of breast [email or web address] Not available 2022 14:44:55 Mother Malignant tumor of lung [email or web address] Not available 2022 14:45:08 Notes:father: , dm, ARF, glaucoma Medical History No medical history recorded. Immunizations Vaccine Type Date Status Note Provider Nam e and Address Organization Details Recorded Time Influenza, adjuvanted, quadrivalent, PF 3 completed Page patel, [facility] 06/14/2023 16:55:16 Influenza, adjuvanted, quadrivalent, [facility] 16:56:38 Influenza, split virus, quadrivalent, preservative 0 completed [facility] 11:13:50 SARS-COV-2 (COVID-19) vaccine, UNSPECIFIED 3 completed [facility]2023 10:17:34 Td(adult) unspecified formulation 8 completed Ileana Amaya [facility] 11/22/2023 15:52:58 Pneumococcal conjugate PCV 13 7 completed Ileana Amaya [facility] 11/22/2023 15:53:12 pneumococcal polysaccharide PPV23 4 completed Ileana Amaya [facility] 11/22/2023 15:53:30 pneumococcal polysaccharide PPV23 8 completed Ileana Amaya [facility] 11/22/2023 15:53:36 pneumococcal polysaccharide PPV23 0 completed Ileana Amaya [facility] 11/22/2023 15:53:43 SARS-COV-2 (COVID-19) vaccine, UNSPECIFIED 1 completed [facility]23 15:54:14 SARS-COV-2 (COVID-19) vaccine, UNSPECIFIED 1 completed [facility]23 15:54:22 SARS-COV-2 (COVID-19) vaccine, UNSPECIFIED 1 completed [facility]23 15:54:39 zoster, unspecified formulation 8 completed [facility]23 15:55:00 zoster, unspecified formulation 8 completed Ileana patel [place] - [facility] 11/22/2023 15:55:12 Past Encounters Encounter ID Performer Location Encounter Start Date Encounter Closed Date Diagnosis/Indication Diagnosis SNOMED-CT Code Diagnosis ICD10 Code Diagnosis Note [id number] [facility] [address] [place] [address] 05/01/2024 08:25:47 05/04/2024 13:28:46 Asthenia 84855722 R53.1 Weak at baseline, is now TTWB with walker from recent ER visitPT/OT eval and treatSafet y precaution s reviewed.s upportive carerec using orthodic as much as possible with leg shortening Adult fail ure to thrive syndrome 069607957 R62.7 Continuing to encourage pt to consider other living situations as current situation is difficult to manage.obie gthy discussion on need to consider [facility] or increased supportive environmen t in near future as he is not able to manage in independen t living with repeated fallssocia l worker to discuss with pthe is currently alert and oriented and able to make his own decisions Mixed anxi ety and depressive disorder 044707036 F41.8 with hx of anxiety and depression with report of vivid dreams lately Do not recommend ativan with hx of misuse and decreased o2 sats in past conteffexo r 187.5 mg qd, Buspar 10 mg q am and 15 mg qhs, melatonin 10 mg qhs and hydroxyzin e 25 mg q 8 hrs prn.Monito r mood and behaviorss upportive prn Chronic back pain 229245 002 G89.29 Chronic pain to hip and [...] will left nsg knowmonito r Essential hypertension 68577496 I10 In good control.Co ntinueamlo dipine 2.5 mg po qdmetoprol ol 12.5 mg BID, hold for SBP<120 or pulse<60Mo nitor BP and labs as outpt. Paroxysmal atrial fibrillation 450983601 I48.0 Rate in good control on meds as above.Cont inueeliqui s 5 mg BID for AC.Monitor HR and bleeding risk as outpt. Gastroesop hageal reflux disease without esophagitis 062585781 K21.9 No current sxs.Contin uepantopra zole 40 mg qdMonitor GI sxs as outpt. History of pulmonary embolus 312692589 Z86.711 ContinueEl iquis 5 mg BIDMonitor 05/01/24 refer for pulmonolog y consult for report of sob with activity, intermitte nt o2 sats, etc...? sob related to panic/anxi ety or something more Anemia due to blood loss 552663421 D50.0 Continues to be stable.Mon itor cbc and bmp weekly, labs pending today Seasonal allergy 1542412 04 J30.2 No current sxs.Contin uecetirizi ne 10 mg qd.Monitor Overactive urinary bladder 956457865 N32.81 Continueta msulosin 0.4 mg qd and gemtesa 75 mg qdMonitor Fall R29.6 hx of recurrent falls on ac currentlyh e is insistent on staying on ac and educated on risk and agreeable to plan to dc dc'd oxycodone and ativan likely contributi ng to fallssee above asthenia History of total hip arthroplasty 9647938324 06 Z96.649 hx of total left hip arthroplas tyfu with Dr. Stover as above [id number] Ayo Jeffrey MD [address] [address] 05/02/2024 09:37:26 05/04/2024 13:13:13 Recurrent falls 350224656 R29.6 see HPIrecurre nt falls and hospitaliz ations recentlyPT OT eval and treatmonit or fall risk and need for increased support in communityq uestion opioids and benzo contributi ng to fall risk no longer utilizingc ontinues on AC for a fib - aware of risk benefit History of total hip arthroplasty 8263782309 06 Z96.649 see above with hx of total left hip arthroplas ty and recurrent dislocatio nsf/u with ortho in placefollo w ortho recs and update with concerns Adult fail ure to thrive syndrome 387950904 R62.7 question need to transition to assisted living or LTC with multiple recent hospitaliz ationscurr ently not safe to return home Mixed anxi ety and depressive disorder 609117018 F41.8 stable on out patient medscontin uedpsych eval prnmonitor mood Essential hypertension 26064903 I10 norvasc 2.5 mg qdmetoprol ol 12.5 mg bidmonitor bp and need to titrate Paroxysmal atrial fibrillation 681872560 I48.0 eliquis 5 mg bidmetopro lol 12.5 mg bidmonitor for rate control Gastroesop hageal reflux disease without esophagitis 063097958 K21.9 protonix 40 mg qdmonitor sx relief History of pulmonary embolus 714617998 Z86.711 see abovemaint ained on eliquis Chronic re tention of urine 577042814 R33.8 maintained on flomax 0.4 mg qdmonitor for retentionu rology eval prn Chronic back pain 369894 002 G89.29 now off oxy with concern contributi ng to fall riskfollow ed by ortho Insomnia 001441342 G47.0 9 melatonin 10 mg qhsmonitor for effect Headache 64191653 R51.9 Hearing loss 51699115 H9 0.0 need to shoutconsi keaton need for audiology eval Minimal co gnitive impairment 965639781 G31.84 appears mild at baselinemo nitor cognitive function and need to invoke Health Concerns Section Related Observation LastModified by Organization Detai ls LastModified Time None Recorded Concern Status LastModified by Organization Details LastModified Time None Recorded Payers Encounter Date Sequence Insurance Name Policy Number Policy Hood Covered Member ID Hood Member ID Guarantor Name 05/02/2024 2 [place] [id number] Ottoniel Salas [id number] Ottoniel Salas 05/02/2024 1 [place] [employer] Ottoniel Salas [id number] Ottoniel Salas Notes Date Note Type Note Provider Name and Address Organization Details Recorded Time 2024 text/h tml Patient is a 78 yo male admit from hospital after being found down covered in feces. Of note patient with multiple recent hospitalizations for falls, chronic pain and weakness with apparent failure to thrive. Workup negative for acute issue with noted left hip prosthesis with prior abnormality. Eval by ortho with rec for toe touch weightbearing in ED. Not felt safe to return home at that time. PMH is significant forleft THR with recurrent dislocationshtna fibhx PEanxiety / depressionhx prostate cagerdgoutobesityhypothyroidhldHoHanemia admit to facility for continued care and therapy Ayo Jeffrey MD [address], [address], [place], [address] [place] [address] [employer] 5 10:00:40
--- OUTSIDE RECORDS SUMMARY | 2024-05-20 07:29 | XMS_ITS | Continuity of Care Document ---
Author Organization [facility], [facility] Address [address] [place] [address] Care Team Providers Care Hat Cone Inspector Name Role Phone DIYA MARIN - 2ND FLOOR OTHER [place] Primary Care Provider Assessment Encounter Date Assessment Date Assessment LastModified by Organization Details LastModified Time 05/18/2024 05/18/2024 greater than 30min spent on assessment, script, documentation, and coordination of discharge Not available 05/18/2024 09:46:29 Plan of Treatment Reminders Order Date Submit [...] Time History of total hip arthroplast y 312691949412 Active 2019 Crista patel [facility] 0 12:56:15 Gastroesoph ageal reflux disease without esophagitis 677656906 Active 2019 Crista patel [facility] 0 12:56:19 Mixed anxiety and depressive disorder 717593006 Active 2019 Crista patel [facility] 0 12:56:21 Essential hypertensio n 71819301 Active 2019 Crista patel [facility] 0 12:56:23 History of malignant neoplasm of prostate 424927090 Active 2019 Crista patel [facility] 0 12:56:26 COVID-19 434744567 Active 2019 Crista Vanessa null, [facility] 0 12:56:41 Anemia due to blood loss 132808741 Active 2019 Crista Vanessa null, [facility] 0 12:58:53 Reduction of dislocation of hip Active 2019 ROSANA VILLEDA NP [address], [place], [address], [facility] 0 08:57:29 Open wound 889821537 Active 2019 ROSANA VILLEDA NP [address], [place], [address], [facility] 0 09:01:46 Pulmonary embolism 87989493 Active 2019 ROSANA VILLEDA NP [address], [place], [address], [facility] 0 09:03:09 Fall Active 2019 ROSANA VILLEDA NP [address], [address], [place], [address], [facility] 0 10:40:41 Postoperati ve wound infection 39888800 Active 2019 Smitha Sparks MD [address], [address], [place], [address], [facility] 0 00:12:33 Dislocation of hip joint prosthesis 995764968 Active 2019 Smitha Sparks MD [address], [address], [place], [address], [facility] 0 00:12:36 Insomnia 395480671 Active 2019 Smitha Sparks MD [address], [place], [address], [facility] 0 00:21:52 Chronic back pain 428168692 Active 2019 Smitha Sparks MD [address], [place], [address], [facility] 0 00:22:56 Gout 81887908 Active 2019 Priya Le MD [address], [place], [address], [facility] 0 14:03:47 Minimal cognitive impairment 597494420 Active 2019 Smitha Sparks MD [address], [place], [address], [facility] 0 16:44:57 Paroxysmal atrial fibrillatio n 274922442 Active 2022 ALEXIS DOLAN NP [address], [address], [place], [address], [facility] 3 15:10:55 History of pulmonary embolus 299712042 Active 2022 ALEXIS DOLAN NP [address], [address], [place], [address], [facility] 3 15:11:44 Delirium 1677035 Active 2022 ALEXIS DOLAN NP [address], [place], [address], [facility] 3 15:27:16 Surgical incision wound of skin 489945193643 Active 2022 ROSANA VILLEDA NP [address], [place], [address], [facility] 3 14:38:56 Abrasion 823511852 Active 2022 Antonieta Brito NP [address], [place], [address], [facility] 3 10:17:57 Asthenia 45903639 Active 2022 ALEXIS DOLAN NP [address], [place], [address], [facility] 3 16:13:31 Hernia of anterior abdominal wall 062925732 Active 2022 Antonieta Brito NP [address], [place], [address], [place] [facility] 3 16:23:51 Hypoxia 188379966 Active 2022 Antonieta Brito NP [address], [place], [address], [facility] 3 11:25:28 Altered mental status 692356777 Active 2022 Antonieta Brito NP [address], [place], [address], [facility] 3 11:31:49 Loose stool 440937715 Active 2022 Antonieta Brito NP [address], [place], [address], [facility] 3 09:25:29 Headache 63710844 Active 2022 Antonieta Brito NP [address], [place], [address], [facility] 3 09:40:59 Weight decreased 739824218 Active 2022 Antonieta Brito NP [address], [place], [address], [facility] 3 09:42:25 Hemorrhoids 28519280 Active 2022 Antonieta Brito NP [address], [place], [address], [facility] 3 08:25:10 Seasonal allergy 609360613 Active 2023 Antonieta Brito NP [address], [place], [address], [facility] 4 12:19:01 Hearing loss 70408358 Active 2024 Ayo Jeffrey MD [address], [place], [address], [facility] 5 09:57:58 Problem Notes None recorded. Medical Equipment None Reported. Allergies Allergen ID Allergen Name Allergen Category Reaction Reaction Severity Criticality Documentation Date Start Date Code Code System Note Provider Name and Address Organization Details Recorded Time [id number] 2824e Non-stero idal anti-infl ammatory agent (product) medicatio n Not available Not available Not available 11/17/2019 20404 005 SNOMED Not Available Not Available Not Available [id number] 4706390c7 2824e hydrochlo rothiazid e medicatio n Not available Not available Not available 11/17/2019 5487 RxNorm Not Available Not Available Not Available [id number] 749776003 [id number] 2824e aspirin medicatio n Not available Not available Not available 11/17/2019 1191 RxNorm Not Available Not Available Not Available [id number] 290526070 [id number] 2824e codeine medicatio n Not available Not available Not available 11/17/2019 2670 RxNorm Not Available Not Available Not Available [id number] 319292636 [id number] 2824e Topamax medicatio n Not available Not available Not available 11/17/2019 15406 3 RxNorm Not Available Not Available Not Available [id number] 381461903 [id number] 2824e Soma medicatio n Not available Not available Not available 11/17/2019 56077 2 RxNorm Not Available Not Available Not [...] Updated DateTime 5 182.88 cm 30 kg/m2 058974. 91 g 67 /min 18 /min 98.2 [degF] 97 % 97 % 132 mm[Hg] 74 mm[Hg] Antonieta Smithfield, LIFE MANAGER [address] [facility], [address], [place], [address] - [facility] 5 09:24:48 Social History Question Answer Notes LastModified by Organizat ion Details LastModified Time Tobacco Smoking Status Former Smoker Quit 40 years ago Not Available [employer] 02/23/2020 03:13:21 Do You Have An Advance Directive? Yes [email or web address] Information not available 09/27/2022 What Is Your Level Of Alcohol Consumption? None [id number] Information not available 02/23/2020 How Much Tobacco Do You Chew? None [id number] Information not available 02/23/2020 What Is Your Code Status? DNR/DNI No Dialysis, No Artificial Nutrition Information not available 09/27/2022 Do You Or Have You Ever Used E-cigarettes Or Vape? Never Used Electronic Cigarettes [id number] Information not available 02/23/2020 Where Do You Live? Apartment Lives Alone [email or web address] Information not available 11/19/2023 Legal Guardian? No Informati on not available 09/28/2022 Do You Have A Medical Power Of [place] Selector? Yes Has HCP, Not Invoked Information not available 09/28/2022 What Was The Date Of Your Most Recent Tobacco Screening? 05/01/2024 Information not available 05/01/2024 Do You Have An Out Of Hospital DNR? Yes Information not available 09/28/2022 What Is Your Relationship Status? Information not available 09/28/2022 Do You Or Have You Ever Used Smokeless Tobacco? Never Used Smokeless Tobacco [id number] Information not available 02/23/2020 Do You Use Any Illicit Or Recreational Drugs? No Information not available 09/27/2022 Has Tobacco Cessation Counseling Been Provided? No N/a As Pt No Longer Smokes Information not available 09/28/2022 How Many Years Have You Smoked Tobacco? 15 [id number] Information not available 02/23/2020 Do You Or Have You Ever Used Any Other Forms Of Tobacco Or Nicotine? No [email or web address] Information not available 09/27/2022 Sex: Unknown Functional Status None recorded. Mental Status None recorded. Family History Relationship Description Onset Age of this Age Resolved Age Notes LastModified by Organization Details LastModified Time Mother Malignant tumor of breast [email or web address] Not available 2022 14:44:55 Mother Malignant tumor of lung [email or web address] Not available 2022 14:45:08 Notes:father: , dm, ARF, glaucoma Medical History No medical history recorded. Immunizations Vaccine Type Date Status Note Provider Nam e and Address Organization Details Recorded Time Influenza, adjuvanted, quadrivalent, PF [facility] 16[facility]55:16 Influenza, adjuvanted, quadrivalent, PF 2 completed [facility] 16:56:38 Influenza, split virus, quadrivalent, preservative 0 completed Ana Elliott [facility] 02/19/2020 11:13:50 SARS-COV-2 (COVID-19) vaccine, UNSPECIFIED 3 completed Ileana Amaya [facility] 11/19/2023 10:17:34 Td(adult) unspecified formulation 8 completed Ileana Amaya [facility] 11/22/2023 15:52:58 Pneumococcal conjugate PCV 13 7 completed Ileana Amaya [facility] 11/22/2023 15:53:12 pneumococcal polysaccharide PPV23 4 completed Ileana Amaya [facility] 11/22/2023 15:53:30 pneumococcal polysaccharide PPV23 8 completed Ileana Amaya [facility] 11/22/2023 15:53:36 pneumococcal polysaccharide PPV23 0 [facility] 15:53:43 SARS-COV-2 (COVID-19) vaccine, UNSPECIFIED 1 completed Ileana Amaya [facility] 11/22/2023 15:54:14 SARS-COV-2 (COVID-19) vaccine, UNSPECIFIED 1 completed Ileana Amaya [facility] 11/22/2023 15:54:22 SARS-COV-2 (COVID-19) vaccine, UNSPECIFIED 1 completed Ileana Amaya [facility] 11/22/2023 15:54:39 zoster, unspecified formulation 8 completed Ileana [facility] 11/22/2023 15:55:00 zoster, unspecified formulation 8 completed Ileana [facility] 11/22/2023 15:55:12 Past Encounters Encounter ID Performer Location Encounter Start Date Encounter Closed Date Diagnosis/Indication Diagnosis SNOMED-CT Code Diagnosis ICD10 Code Diagnosis Note [id number] Antonieta Brito NP [address] [address] 05/01/2024 08:25:47 05/04/2024 13:28:46 Asthenia 22991385 R53.1 Weak at baseline, is now TTWB with walker from recent ER visitPT/OT eval and treatSafet y precaution s reviewed.s upportive carerec using orthodic as much as possible with leg shortening Adult fail ure to thrive syndrome 946278809 R62.7 Continuing to encourage pt to consider [...] decisions Mixed anxi ety and depressive disorder 169543303 F41.8 with hx of anxiety and depression with report of vivid dreams lately Do not recommend ativan with hx of misuse and decreased o2 sats in past conteffexo r 187.5 mg qd, Buspar 10 mg q am and 15 mg qhs, melatonin 10 mg qhs and hydroxyzin e 25 mg q 8 hrs prn.Monito r mood and behaviorss upportive prn Chronic back pain 996092 002 G89.29 Chronic pain to hip and backIs followed by Dr. Lara for steroid shots outpt and dr brand when hereContin uelidocain e patch to hip and back daily, diclofenac gel to right hip TID, APAP 650 mg q 4 hrs prn, gabapentin [address] po bid[address] with Dr Stover for Left hip pain and has appt coming up-he will left nsg knowmonito r Essential hypertension 46487995 I10 In good control.Co ntinueamlo dipine 2.5 mg po qdmetoprol ol 12.5 mg BID, hold for SBP<120 or pulse<60Mo nitor BP and labs as outpt. Paroxysmal atrial fibrillation 772103544 I48.0 Rate in good control on meds as above.Cont inueeliqui s 5 mg BID for AC.Monitor HR and bleeding risk as outpt. Gastroesop hageal reflux disease without esophagitis 598877555 K21.9 No current sxs.Contin uepantopra zole 40 mg qdMonitor GI sxs as outpt. History of pulmonary embolus 119258289 Z86.711 ContinueEl iquis 5 mg BIDMonitor 05/01/24 refer for pulmonolog y consult for report of sob with activity, intermitte nt o2 sats, etc...? sob related to panic/anxi ety or something more Anemia due to blood loss 366105653 D50.0 Continues to be stable.Mon itor cbc and bmp weekly, labs pending today Seasonal allergy 2106707 04 J30.2 No current sxs.Contin uecetirizi ne 10 mg qd.Monitor Overactive urinary bladder 862856913 N32.81 Continueta msulosin 0.4 mg qd and gemtesa 75 mg qdMonitor Fall 2695571 R29.6 hx of recurrent falls on ac currentlyh e is insistent on staying on ac and educated on risk and agreeable to plan to dc dc'd oxycodone and ativan likely contributi ng to fallssee above asthenia History of total hip arthroplasty 0681679670 06 Z96.649 hx of total left hip arthroplas tyfu with Dr. Stover as above [id number] [facility] [address] 05/02/2024 09:37:26 05/04/2024 13:13:13 Recurrent falls 735261268 R29.6 see HPIrecurre nt falls and hospitaliz ations recentlyPT OT eval and treatmonit or fall risk and need for increased support in communityq uestion opioids and benzo contributi ng to fall risk no longer utilizingc ontinues on AC for a fib - aware of risk benefit History of total hip arthroplasty 0156293999 06 Z96.649 see above with hx of total left hip arthroplas ty and recurrent dislocatio nsf/u with ortho in placefollo w ortho recs and update with concerns Adult fail ure to thrive syndrome 610098949 R62.7 question need to transition to assisted living or LTC with multiple recent hospitaliz ationscurr ently not safe to return home Mixed anxi ety and depressive disorder 849337347 F41.8 stable on out patient medscontin uedpsych eval prnmonitor mood Essential hypertension 41530549 I10 norvasc 2.5 mg qdmetoprol ol 12.5 mg bidmonitor bp and need to titrate Paroxysmal atrial fibrillation 531380384 I48.0 eliquis 5 mg bidmetopro lol 12.5 mg bidmonitor for rate control Gastroesop hageal reflux disease without esophagitis 603646559 K21.9 protonix 40 mg qdmonitor sx relief History of pulmonary embolus 973445985 Z86.711 see abovemaint ained on eliquis Chronic re tention of urine 903945902 R33.8 maintained on flomax 0.4 mg qdmonitor for retentionu rology eval prn Chronic back pain 056779 002 G89.29 now off oxy with concern contributi ng to fall riskfollow ed by ortho Insomnia 426865054 G47.0 9 melatonin 10 mg qhsmonitor for effect Headache 51249157 R51.9 Hearing loss 87809503 H9 0.0 need to shoutconsi keaton need for audiology eval Minimal co gnitive impairment 863304442 G31.84 appears mild at baselinemo nitor cognitive function and need to invoke [id number] Antonieta Brito NP [facility] [address] 05/08/2024 19:22:41 05/12/2024 09:33:23 Recurrent falls 267429139 R29.6 see HPIrecurre nt falls and hospitaliz ations recentlyPT OT eval and treatmonit or fall risk and need for increased support in communityq uestion opioids and benzo contributi ng to fall risk no longer utilizingc ontinues on AC for a fib - aware of risk benefit History of total hip arthroplasty 8447171470 06 Z96.649 see above with hx of total left hip arthroplas ty and recurrent dislocatio nsTTWBorth otic shoe recommende df/u with ortho in placefollo w ortho recs and update with concerns Paroxysmal atrial fibrillation 077761362 I48.0 eliquis 5 mg bidmetopro lol 12.5 mg bidmonitor for rate control Adult fail ure to thrive syndrome 234243742 R62.7 question need to transition to assisted living or LTC with multiple recent hospitaliz ationscurr ently not safe to return home and looking into [facility]IDENT[facility] Mixed anxi ety and depressive disorder 817266445 F41.8 stable on out patient medscontin uedpsych eval prnmonitor mood Essential hypertension 21649997 I10 bp stablenorv asc 2.5 mg qdmetoprol ol 12.5 mg bidmonitor bp and need to titrate Minimal co gnitive impairment 999347332 G31.84 appears mild at baselinemo nitor cognitive function and need to invoke Gastroesop hageal reflux disease without esophagitis 566681408 K21.9 protonix 40 mg qdmonitor sx relief Chronic re tention of urine 040448797 R33.8 contflomax 0.4 mg qdmonitor for retentionu rology eval prn Chronic back pain 239070 002 G89.29 off oxy with concern contributi ng to fall riskfollow ed by orthodo not rec restarting Insomnia 146538962 G47.0 9 melatonin 10 mg qhsmonitor for effect Asthenia 81013459 R53.1 Weak at baseline, is now TTWB [...] fallssee above asthenia History of pulmonary embolus 133662069 Z86.711 ContinueEl iquis 5 mg BIDMonitor 05/01/24 refer for pulmonolog y consult for report of sob with activity, intermitte nt o2 sats, etc...? sob related to panic/anxi ety or something more Overactive urinary bladder 970608501 N32.81 Continueta msulosin 0.4 mg qd and gemtesa 75 mg qdMonitor [id number] Antonieta Brito NP [facility] [address] [place] [address] 05/15/2024 09:04:20 05/18/2024 16:34:25 History of total hip arthroplasty 3559452988 06 Z96.649 see above with hx of total left hip arthroplas ty and recurrent dislocatio nsTTWB per orders on release from hospitalor topher harper recommende df/u with ortho in place Dr Octavio reaves ortho recs and update with concerns Recurrent falls 80089266 2 R29.6 see HPI for notesrecur rent falls and hospitaliz ations recentlyPT OT eval and treatmonit or fall risk and need for increased support in communityq uestion opioids and benzo contributi ng to fall risk no longer utilizingc ontinues on AC for a fib - aware of risk benefit Paroxysmal atrial fibrillation 706863045 I48.0 conteliqui s 5 mg bidmetopro lol 12.5 mg bidmonitor for rate control Adult fail ure to thrive syndrome 652783032 R62.7 question need to transition to assisted living or LTC with multiple recent hospitaliz ationshe plans to return to independen t living and is his own person, however not recommende dAnother list of [facility] is given to him and he reports he will visit a few Mixed anxi ety and depressive disorder 457089430 F41.8 stable on out patient medscontin uedpsych eval prnmonitor mood Essential hypertension 53429407 I10 bp stable, occ on the higher sidenorvas c 2.5 mg qdmetoprol ol 12.5 mg bidmonitor bp and need to titratewil l leave goal at SBP <150 as he is a high risk Minimal co gnitive impairment 196865583 G31.84 appears mild at baseline and able to make his own decisionsm onitor cognitive function and need to invoke Gastroesop hageal reflux disease without esophagitis 086995295 K21.9 protonix 40 mg qdmonitor sx relief Chronic re tention of urine 396356093 R33.8 contflomax 0.4 mg qdmonitor for retentionu rology eval prn Chronic back pain 996620 002 G89.29 off oxy with concern contributi ng to fall riskfollow ed by orthodo not rec restarting Insomnia 211037034 G47.0 9 melatonin 10 mg qhsmonitor for effect Asthenia 14656730 R53.1 Weak at baseline, is now TTWB with walker from recent ER visitPT/OT eval and treatSafet y precaution s reviewed.s upportive carerec using orthodic as much as possible with leg shortening [id number] Antonieta Brito NP [facility] [address] [address] 05/18/2024 08:51:57 05/18/2024 09:46:36 History of total hip arthroplasty 7579656917 06 Z96.649 see above with hx of total left hip arthroplas ty and recurrent dislocatio nsno surgical interventi on at this timeTTWB per orders on release from hospitalor thotic shoe recommende df/u with ortho in place Dr Stover outpt Recurrent falls 46107692 2 R29.6 see HPI for notesrecur rent falls and hospitaliz ations recentlymo nitor fall risk and need for increased support in communityq uestion opioids and benzo contributi ng to fall risk no longer utilizingc ontinue on AC for a fib - aware of risk benefit and wishes to continuefu with pcp outpt Paroxysmal atrial fibrillation 422851197 I48.0 conteliqui s 5 mg bidmetopro lol 12.5 mg bidmonitor for rate control outpt Adult fail ure to thrive syndrome 679142300 R62.7 question need to transition to assisted living or LTC with multiple recent hospitaliz ationshe plans to return to independen t living and is his own person, however not recommende dAnother list of [facility] is given to him and he reports he will visit a fewcont increased servicesmo nitor for need to return to SNF if unable to thrive in independen t living or NORBERTO with pcp outpt Mixed anxi ety and depressive disorder 796134435 F41.8 stable on out patient medscontin uedpsych eval prnmonitor mood outptNO longer on ativan and oxycodone and doing well off these meds as they seem to contribute to falls Essential hypertension 96941954 I10 bp stablecont norvasc 2.5 mg qdmetoprol ol 12.5 mg bidmonitor bp and need to titrate outpt with pcpwill leave goal at SBP <150 as he is a high risk Minimal co gnitive impairment 746646968 G31.84 appears mild at baseline and able to make his own decisionsm onitor cognitive function and need to invoke outpt with pcp Gastroesop hageal reflux disease without esophagitis 051973789 K21.9 protonix 40 mg qdmonitor outpt with pcp Chronic re tention of urine 676162647 R33.8 stable herecontfl omax 0.4 mg qdmonitor for retention outpt with pcpurology eval prn outpt Chronic back pain 726099 002 G89.29 off oxy with concern it was contributi ng to fall riskfollow ed by ortho outptfollo wed by pain management outptdo not rec restarting Insomnia 139820226 G47.0 9 melatonin 10 mg qhsmonitor for effect outpt Asthenia 91272785 R53.1 Weak at baseline, is now TTWB with walker from recent ER visitSafet y precaution s at homerec using orthodic as much as possible with leg shortening fu with pcp outpt and monitor with increased services Health Concerns Section Related Observation LastModified by Organization Detai ls LastModified Time None Recorded Concern Status LastModified by Organization Details LastModified Time None Recorded Payers Encounter Date Sequence Insurance Name Policy Number Policy Hood Covered Member ID Hood Member ID Guarantor Name 05/18/2024 2 [place] [id number] Ottoniel Salas [id number] Ottoniel Salas 05/18/2024 1 [place] [employer] Ottoniel Salas [id number] Ottoniel Salas Notes Date Note Type Note Provider Name and Address Organization Details Recorded Time 05/18/2024 text/html Pt is seen for a discharge visit summary. His PMH includes HTN, parox. 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 Jay Jay is a 78 yo male with pmh hx above sig for afib on xarelto presented to [facility] ER after being found on the floor [...] discharge to congregate housing on 09/25/2023 from [facility] here. An NORBERTO is recommended. While here at rehab: He has worked with therapy and is back to baseline. It is recommended he where his orthotic for his left leg shortening. On 05/[address] Dr Brand and given cortisone injection for his R shoulder impingement syndrome. He states he will visit ALFs as recommended.This has been requested multiple times here and he continues to not follow up with this. He does state he will do it this time .market garden worker gave him a list again about the assisted living facilities and this LIFE MANAGER also reiterated he would be able to have socialization, increased services, and meals which could help. He states he financially is not sure how that would work and he is aware there are consultants at the facilities that could help him understand the finances if he makes an appointment.He also states he has a wheelchair at [facility] but has to pick it up. His old one was thrown out and was not working. An indepth discussion is had about his fall risk and xarelto and he is aware of risk and wishes to continue on the blood thinner at this time. On exam, he is motoring in the wheelchair in [place]. He denies pain or anxiety and requests a hydroxyzine script as he thinks he is out. Script given. No new concerns from nursing. Plan to fu with Dr. Stover 2 weeks ago for his hip and will let nursing know about the fu appt which he thinks is on 05/27/24 for his hip.He will also need to fu with his pcp outpt. MOLST:DNR/DNI and transfer to hospital Antonieta Brito NP [address] [facility], [address], [place], [id number], [facility] [place] 05/18/2024 09:46:34
--- OUTSIDE RECORDS SUMMARY | 2024-05-20 07:29 | XMS_ITS | Data Portability ---
Author Organization [facility], Main Office Address [address] [place] [address] Care Team Providers Care Data Processing Equipment Repairer Name Role Phone DIYA MARIN - 2ND FLOOR OTHER [place] ALMARAZ Primary Care Provider Assessment Encounter Date Assessment [...] Time History of total hip arthroplast y 840228561142 Active 2019 Crista patel, [facility] 0 12:56:15 Gastroesoph ageal reflux disease without esophagitis 421808481 Active 2019 Crista patel, [facility] 0 12:56:19 Mixed anxiety and depressive disorder 502781345 Active 2019 Crista patel, [facility] 0 12:56:21 Essential hypertensio n 64303525 Active 2019 Crista patel [facility] 0 12:56:23 History of malignant neoplasm of prostate 830237293 Active 2019 Crista patel, [facility] 0 12:56:26 COVID-19 709942939 Active 2019 Crista Vanessa null, [facility] 0 12:56:41 Anemia due to blood loss 731279018 Active 2019 Crista Vanessa null, [facility] 0 12:58:53 Reduction of dislocation of hip Active 2019 ROSANA VILLEDA NP [address], [place], [address], [facility] 0 08:57:29 Open wound 850581448 Active 2019 ROSANA VILLEDA NP [address], [place], [address], [facility] 0 09:01:46 Pulmonary embolism 76786036 Active 2019 ROSANA VILLEDA NP [address], [place], [address], [facility] 0 09:03:09 Fall Active 2019 ROSANA VILLEDA NP [address], [place], [address], [facility] 0 10:40:41 Postoperati ve wound infection 75308883 Active 2019 Smitha Sparks MD [address], [address], [place], [address], [facility] 0 00:12:33 Dislocation of hip joint prosthesis 723810917 Active 2019 Smitha Sparks MD [address], [place], [address], [facility] 0 00:12:36 Insomnia 719849029 Active 2019 Smitha Sparks MD [address], [place], [address], [facility] 0 00:21:52 Chronic back pain 525767639 Active 2019 Smitha Sparks MD [address], [place], [address], [facility] 0 00:22:56 Gout 81159624 Active 2019 Priya Le MD [address], [address], [place], [address], [facility] 0 14:03:47 Minimal cognitive impairment 621098462 Active 2019 Smitha Sparks MD [address], [address], [place], [address], [facility] 0 16:44:57 Paroxysmal atrial fibrillatio n 206115199 Active 2022 ALEXIS DOLAN NP [address], [address], [place], [address], [facility] 3 15:10:55 History of pulmonary embolus 035838805 Active 2022 ALEXIS DOLAN NP [address], [address], [place], [address], [facility] 3 15:11:44 Delirium 5925740 Active 2022 ALEXIS DOLAN NP [address], [address], [place], [address], [facility] 3 15:27:16 Surgical incision wound of skin 764123225782 Active 2022 ROSANA VILLEDA NP [address], [address], [place], [address], [facility] 3 14:38:56 Abrasion 460386583 Active 2022 Antonieta Brito NP [address], [address], [place], [address], [facility] 3 10:17:57 Asthenia 17003951 Active 2022 ALEXIS DOLAN NP [address], [address], [place], [address], [facility] 3 16:13:31 Hernia of anterior abdominal wall 876475840 Active 2022 Antonieta Brito NP [address], [address], [place], [address], [place] [facility] 3 16:23:51 Hypoxia 071182394 Active 2022 Antonieta Brito NP [address], [address], [place], [address], [facility] 3 11:25:28 Altered mental status 602278557 Active 2022 Antonieta Brito NP [address], [place], [address], [facility] 3 11:31:49 Loose stool 839234931 Active 2022 Antonieta Brito NP [address], [place], [address], [facility] 3 09:25:29 Headache 79618337 Active 2022 Antonieta Brito NP [address], [place], [address], [facility] 3 09:40:59 Weight decreased 491946315 Active 2022 Antonieta Brito NP [address], [place], [address], [facility] 3 09:42:25 Hemorrhoids 10825836 Active 2022 Antonieta Brito NP [address], [place], [address], [facility] 3 08:25:10 Seasonal allergy 871030001 Active 2023 Antonieta Brito NP [address], [place], [address], [facility] 4 12:19:01 Hearing loss 25873342 Active 2024 Ayo Jeffrey MD [address], [place], [address], [facility] 5 09:57:58 Problem Notes None recorded. Medical Equipment None Reported. Allergies Allergen ID Allergen Name Allergen Category Reaction Reaction Severity Criticality Documentation Date Start Date Code Code System Note Provider Name and Address Organization Details Recorded Time [id number] [id number] 2824e Non-stero idal anti-infl ammatory agent (product) medicatio n Not available Not available Not available 11/17/2019 13287 005 SNOMED Not Available Not Available Not Available [id number] [id number] 2824e hydrochlo rothiazid e medicatio n Not available Not available Not available 11/17/2019 5487 RxNorm Not Available Not Available Not Available [id number] 2824e aspirin medicatio n Not available Not available Not available 11/17/2019 1191 RxNorm Not Available Not Available Not Available [id number] 268069600 [id number] 2824e codeine medicatio n Not available Not available Not available 11/17/2019 2670 RxNorm Not Available Not Available Not Available [id number] 2824e Topamax medicatio n Not available Not available Not available 11/17/2019 07337 3 RxNorm Not Available Not Available Not Available [id number] 2824e Soma medicatio n Not available Not available Not available 11/17/2019 69513 2 RxNorm Not Available Not Available Not [...] lable Vitals Date Recorded Body height Body weight Body mass index (BMI) Heart rate Respiratory rate Body temperature Oxygen saturation Oxygen saturation in Arterial blood by Pulse oximetry Inhaled oxygen flow rate Systolic blood pressure Diastolic blood pressure Provider Name and Address Organization Details Last Updated DateTime 5 182.88 cm 36801.5 8 g 28.8 kg/m2 95 /min 16 /min 97.6 [degF] 94 % 94 % 2 L/min 135 mm[Hg] 93 mm[Hg] Antonieta Brito NP [address] [facility], [address], [place], [address], [facility] 5 09:07:31 Date Recorded Body height Systolic blood pressure Diastolic blood pressure Provider Name and Address Organization Details Last Updated DateTime 05/02/2024 182.88 cm 135 mm[Hg] 60 mm[Hg] Ayo Jeffrey MD [address] [facility], [address], [place], [address], [facility] 05/02/2024 09:38:01 Date Recorded Body height Body mass index (BMI) Body weight Heart rate Respiratory rate Body temperature Oxygen saturation Oxygen saturation in Arterial blood by Pulse oximetry Systolic blood pressure Diastolic blood pressure Provider Name and Address Organization Details Last Updated DateTime 5 182.88 cm 29.6 kg/m2 97793.1 4 g 78 /min 18 /min 98.1 [degF] 95 % 95 % 132 mm[Hg] 70 mm[Hg] Antonieta Brito NP [address] [facility], [address], [place], [address], [facility] 5 21:51:05 Date Recorded Body height Body mass index (BMI) Body weight Heart rate Respiratory rate Body temperature Oxygen saturation Oxygen saturation in Arterial blood by Pulse oximetry Systolic blood pressure Diastolic blood pressure Provider Name and Address Organization Details Last Updated DateTime 5 182.88 cm 30 kg/m2 980000. 91 g 78 /min 18 /min 98.2 [degF] 96 % 96 % 157 mm[Hg] 64 mm[Hg] Antonieta Brito NP [address] [facility], [address], [place], [address], [facility] 5 09:17:40 Date Recorded Body height Body mass index (BMI) Body weight Heart rate Respiratory rate Body temperature Oxygen saturation Oxygen saturation in Arterial blood by Pulse oximetry Systolic blood pressure Diastolic blood pressure Provider Name and Address Organization Details Last Updated DateTime 5 182.88 cm 30 kg/m2 515715. 91 g 67 /min 18 /min 98.2 [degF] 97 % 97 % 132 mm[Hg] 74 mm[Hg] Antonieta Brito, DIONICIO [address] [facility], [address], [place], [address] 5 09:24:48 Social History Question Answer Notes LastModified by Organizat ion Details LastModified Time Tobacco Smoking Status Former Smoker Quit 40 years ago Not Available [employer] 02/23/2020 03:13:21 Do You Have An Advance Directive? Yes [email or web address] Information not available 09/27/2022 What Is Your Level Of Alcohol Consumption? None [id number] Information not available 02/23/2020 How Much Tobacco Do You Chew? None [id number] Information not available 02/23/2020 What Is Your Code Status? DNR/DNI No Dialysis, No Artificial Nutrition [email or web address] Information not available 09/27/2022 Do You Or Have You Ever Used E-cigarettes Or Vape? Never Used Electronic Cigarettes [id number] Information not available 02/23/2020 Where Do You Live? Apartment Lives Alone Information not available 11/19/2023 Legal Guardian? No Informati on not available 09/28/2022 Do You Have A Medical Power Of Sas Administrator? Yes Has HCP, Not Invoked Information not available 09/28/2022 What Was The Date Of Your Most Recent Tobacco Screening? 05/01/2024 Information not available 05/01/2024 Do You Have An Out Of Hospital DNR? Yes Information not available 09/28/2022 What Is Your Relationship Status? Information not available 09/28/2022 Do You Or Have You Ever Used Smokeless Tobacco? Never Used Smokeless Tobacco [id number] Information not available 02/23/2020 Do You Use Any Illicit Or Recreational Drugs? No [email or web address] Information not available 09/27/2022 Has Tobacco Cessation Counseling Been Provided? No N/a As Pt No Longer Smokes Information not available 09/28/2022 How Many Years Have You Smoked Tobacco? 15 [id number] Information not available 02/23/2020 Do You Or Have You Ever Used Any Other Forms Of Tobacco Or Nicotine? No [email or web address] Information not available 09/27/2022 Sex: Unknown Functional Status None recorded. Mental Status None recorded. Family History Relationship Description Onset Age of this Age Resolved Age Notes LastModified by Organization Details LastModified Time Mother Malignant tumor of breast Not available 2022 14:44:55 Mother Malignant tumor of lung Not available 2022 14:45:08 Notes:father: , dm, ARF, glaucoma Medical History No medical history recorded. Immunizations Vaccine Type Date Status Note Provider Nam e and Address Organization Details Recorded Time Influenza, adjuvanted, quadrivalent, PF 3 [facility] 16:55:16 Influenza, adjuvanted, quadrivalent, PF 2 completed [facility] 16:56:38 Influenza, split virus, quadrivalent, preservative 0 completed Ana Elliott [facility] 02/19/2020 11:13:50 SARS-COV-2 (COVID-19) vaccine, UNSPECIFIED 3 completed Ileana Amaya [facility] 11/19/2023 10:17:34 Td(adult) unspecified formulation 8 completed Ileana Amaya [facility] 11/22/2023 15:52:58 Pneumococcal conjugate PCV 13 7 completed Ileana Amaya [facility] 11/22/2023 15:53:12 pneumococcal polysaccharide PPV23 4 completed Ileana Amaya [facility] 11/22/2023 15:53:30 pneumococcal polysaccharide PPV23 8 completed [facility] 15:53:36 pneumococcal polysaccharide PPV23 0 completed [facility]23 15:53:43 SARS-COV-2 (COVID-19) vaccine, UNSPECIFIED 1 completed Ileana Amaya [facility] 11/22/2023 15:54:14 SARS-COV-2 (COVID-19) vaccine, UNSPECIFIED 1 completed Ileana Amaya [facility] 11/22/2023 15:54:22 SARS-COV-2 (COVID-19) vaccine, UNSPECIFIED 1 completed Ileana Amaya [facility] 11/22/2023 15:54:39 zoster, unspecified formulation 8 completed Ileanamonroe Amaya [facility] 11/22/2023 15:55:00 zoster, unspecified formulation 8 completed Ileanamonroe Amaya [facility] 11/22/2023 15:55:12 Past Encounters Encounter ID Performer Location Encounter Start Date Encounter Closed Date Diagnosis/Indication Diagnosis SNOMED-CT Code Diagnosis ICD10 Code Diagnosis Note [id number] Crista Otf MON[address] [place] [address] 11/17/2019 11:37:30 11/26/2019 12:24:41 History of total hip arthroplasty 2029307595 06 Z96.642 s/p revision left total hip arthroplas tyfollow ortho recsOn coumadin for DVT prophylaxi sTramadol and oxycodone PRN painPT OT eval and treatMonit or for pain control and constipati on Gastroesop hageal reflux disease without esophagitis 929241288 K21.9 Protonix 40 mg dailyMonit or sxs Mixed anxi ety and depressive disorder 707426662 F41.8 Ativan 1 mg BID prnVenlafa xine ER 150 mg dailyDepak ote 500 mg dailyMonit or moodPsych eval prn Essential hypertension 43988267 I10 Norvasc 10 mg dailyMonit or bp and labs History of malignant neoplasm of prostate 529314274 Z85.46 Alfuzosin 10 mg QOD COVID-19 472704192 U07.1 COVID positive 7/20Minima l sxs currentlyS upportive careMonito r Anemia due to blood loss 371915375 D50.0 s/p transfusio nrepeat and monitor CBC [id number] DEMOND MONIQUE [address] [place] [address] 11/18/2019 09:29:10 11/26/2019 12:37:51 History of total hip arthroplasty 4562619671 06 Z96.642 s/p revision left total hip arthroplas tyfollow ortho recsOn coumadin for DVT prophylaxi sTramadol and oxycodone PRN pain COVID-19 556483758 U07.1 COVID positive 11/15Minima l sxs currentlyt ransfer to [facility] facility today Anemia due to blood loss 098920886 D50.0 s/p transfusio nrepeat and monitor CBC Gastroesop hageal reflux disease without esophagitis 928131805 K21.9 Protonix 40 mg daily Mixed anxi ety and depressive disorder 776417112 F41.8 Ativan 1 mg BID prnVenlafa xine ER 150 mg dailyDepak ote 500 mg daily Essential hypertension 41086462 I10 Norvasc 10 mg dailyMonit or bp and labs History of malignant neoplasm of prostate 392852572 Z85.46 Alfuzosin 10 mg QOD [id number] DIONICIO AREVALO [address] [place] [address] 12/29/2019 08:51:18 01/08/2020 08:40:35 COVID-19 372403437 U07.1 monitor respirator y and gi status consider ivf if anorexia occurs Essential hypertension 96496811 I10 amlodipine 10 mg daily monitor bp Gastroesop hageal reflux disease without esophagitis 732020210 K21.9 omeprazole 40 mg daily Mixed anxi ety and depressive disorder 087592045 F41.8 effexor er 150 mg daily trazadone 50-100 mg hs prn History of total hip arthroplasty 6441290484 06 Z96.649 monitor right hip wound PT OT eval and treat s/p reduction of dislocatio n followup with ortho 12/30 blaclofen 10 mg tid prn Open wound 258202905 T14 .8XXA wound vac followup appt with ortho 12/30 Pulmonary embolism 18948 003 I26.99 eliquis 5 mg bid for 6 months starting 12/27 monitor any signs bleeding or respirator y issues History of malignant neoplasm of prostate 168608618 Z85.46 alfuzosin 10 mg daily Fall W19.XXXA PT OT eval and treat [id number] Smitha Levheim, MD [address] [place] [address] 12/31/2019 14:21:23 01/08/2020 09:14:16 COVID-19 633923010 U07.1 Initial + COVID test >1 month ago. No further sxs. an come off precaution s by sxs and time criteria, but still testing +, so by facility protocols will still be on precaution s. Monitor for sequelae. Essential hypertension 04288347 I10 Good control on amlodipine 10 mg qd. Monitor BP and labs. Gastroesop hageal reflux disease without esophagitis 426173129 K21.9 No current sxs. Continue omeprazole 40 mg qd. Monitor sxs. Mixed anxi ety and depressive disorder 134132354 F41.8 With several anxiety attacks since here. Seems like episode AM 12/28 was an anxiety attack. Continue effexor ER 150 mg qd and lorazepam 2 mg q 4 hrs prn. Monitor mood. Psych consult prn. Pulmonary embolism 51407 003 I26.99 No current sxs. Continue eliquis 5 mg BID for 6 months starting 12/27 Monitor sxs. History of malignant neoplasm of prostate 631808855 Z85.46 Continue alfuzosin 10 mg qd. F/U with uro Fall W19.XXXA PT/OT as above. Dislocatio n of hip joint prosthesis 380460958 T84.021D It seems like this last surgery has finally corrected problem and hip is now stable. PT says he did really well today. Did 35' loop at least 4 times. Continue PT/OT for strengthen ing, ROM, gait training and function, within limits of ortho recs. Pain meds adjusted today. Now on hydrocodon e 5/325 1/2-1 tab q 4 hrs prn and fentanyl patch 25 mcg q 72 hrs. F/U with ortho, 12/30 appt was postponed. Postoperat jessi wound infection 99352714 T81.42XD Resolved inpt. Still has wound vac on. Was supposed to be removed by ortho today, but appt. postponed. Monitor drainage (none currently) . Insomnia 643977216 G47.0 9 Will schedule trazadone 50 mg qhs. Monitor sleep patterns. Chronic back pain 567270 002 M54.5 Pain management as above. Also baclofen 10 mg q 8 hrs prn. F/U with Dr. Sanchez as planned. [id number] DIONICIO [place] [facility] [place] [address] 01/06/2020 08:22:44 01/08/2020 11:27:24 Open wound 025254406 T14.8XXA wound vac followup appt with ortho 9/3-cancel ed due to covid+ Mixed anxi ety and depressive disorder 428265837 F41.8 effexor er 150 mg daily trazadone 50-100 mg hs prn [id number] DIONICIO [place]VAL[place] [facility] [place] [address] 01/08/2020 12:50:16 01/12/2020 15:39:10 Dislocation of hip joint prosthesis 509373650 Z96.649 Continue PT/OT for strengthen ing, ROM, gait training and function, within limits of ortho recs Mixed anxi ety and depressive disorder 464259235 F41.8 effexor er 150 mg daily trazadone 50-100 mg hs prn [id number] ROSANA MONTEJOCONCHITADIONICIO [address] [place] [address] [place] [address] 01/12/2020 11:23:31 01/14/2020 15:24:02 COVID-19 033162023 U07.1 monitor respirator y and gi status consider ivf if anorexia occurs Dislocatio n of hip joint prosthesis 218657909 Z96.649 Continue PT/OT for strengthen ing, ROM, gait training and function, within limits of ortho recs Open wound 462194173 T14 .8XXA wet to dry dressings followup appt with ortho /3-cancel ed due to covid+ new ortho appt to be scheduled [id number] DIONICIO AREVALO [facility] [place] [address] 01/19/2020 10:46:06 01/21/2020 09:23:18 Anemia due to blood loss 751849531 D50.0 monitor labs Chronic back pain 601302 002 G89.29 baclofen 10 mg q 8 hrs prn. F/U with Dr. Sanchez as planned. COVID-19 040697449 U07.1 monitor respirator y and gi status consider ivf if anorexia occurs Dislocatio n of hip joint prosthesis 339273848 Z96.649 Continue PT/OT for strengthen ing, ROM, gait training and function, within limits of ortho recommenda tions fentanyl 25 mcg q72 hours hydrocodon e/acetamin ophen 5/325 q4hr prn Essential hypertension 55517934 I10 amlodipine 10 mg daily monitor bp Fall W19.XXXA PT OT eval and treat Gastroesop hageal reflux disease without esophagitis 718049027 K21.9 omeprazole 40 mg daily History of total hip arthroplasty 9192760568 06 Z96.649 monitor right hip wound PT OT eval and treat s/p reduction of dislocatio n followup with ortho baclofen 10 mg q8 hr prn Insomnia 963722125 G47.0 0 trazadone 50 mg qhs. Mixed anxi ety and depressive disorder 598946443 F41.8 effexor er 150 mg daily trazadone 50 hs ativan 2 mg q4hr prn Postoperat jessi wound infection 72284467 T81.40XD resolved Pulmonary embolism 70596 003 I26.99 eliquis 5 mg bid for 6 months starting 12/27 monitor any signs bleeding or respirator y issues [id number] DIONICIO AREVALO [address] [place] [address] 01/26/2020 08:02:59 01/28/2020 16:16:29 Chronic back pain 852025784 G89.29 vicodin 5.325 q8hr prn Essential hypertension 39502023 I10 amlodipine 10 mg daily monitor bp Fall W19.XXXA PT OT eval and treat encourage and remind him about walker use fall precaution s Gastroesop hageal reflux disease without esophagitis 528108893 K21.9 omeprazole 40 mg daily Mixed anxi ety and depressive disorder 491956266 F41.8 effexor er 150 mg/37.5 mg depakote 250 mg qd trazadone 25 mg hs ativan 2 mg q12hr prn [id number] MD BEV Colón [address] [place] [address] 01/29/2020 08:27:28 02/03/2020 09:52:59 Chronic back pain 431698881 G89.29 hydrocodon e-APAP 5-325: one tablet q8h prnAPAP 650 mg q6h prnwill monitor COVID-19 299001396 U07.1 Patient was initially diagnosed 11/17/19.He is recovered at this time. Essential hypertension 68256221 I10 amlodipine 10 mg dailywill monitor Gastroesop hageal reflux disease without esophagitis 456614349 K21.9 omeprazole 40 mg dailywill monitor Mixed anxi ety and depressive disorder 951580409 F41.8 lorazepam 2 mg q12h prnvenlafa xine 187.5 mg dailydival proex ER 250 mg dailytrazo done 25 mg at hswill monitor Gout 38408833 M10.09 colchicine 0.6 mg dailywill monitor Cobalamin deficiency 190 539352 E53.8 B12 1000 mcg IM monthlywil l monitor Unsteady when walking 22 823378 R26.89 PT/OT will try to minimize fall risk Compressio n fracture of thoracic spine 846403828 S22.080D PT/OT see meds for chronic back pain [id number] MD BEV Rogers [address] [place] [address] 02/02/2020 15:45:40 02/11/2020 12:47:56 Minimal cognitive impairment 356048453 G31.84 Could be sequelae from COVID vs. depression vs. early dementia. Will encourage activity and socializat ion as able. I have given pt. permission to walk in hallway despite 2nd COVID test still pending. Pt. wearing N-95 mask when walking in hallway. Psych eval for further assessment . COVID-19 336953722 U07.1 As above. Monitor for sequelae. Mixed anxi ety and depressive disorder 472864200 F41.8 Says he will be better with increased activity. Continue effexor ER 150 mg qd and lorazepam 2 mg q 4 hrs prn. Monitor mood. Psych consult [id number] DIONICIO AREVALO [address] [place] [address] 02/05/2020 08:57:34 02/09/2020 12:37:14 Chronic back pain 607677820 G89.29 vicodin 5.325 q8hr prn COVID-19 920331827 U07.1 monitor respirator y and gi status consider ivf if anorexia occurs Essential hypertension 08625439 I10 amlodipine 10 mg daily monitor bp Fall 8591515 W19.XXXA PT OT eval and treat encourage and remind him about walker use fall precaution s Gastroesop hageal reflux disease without esophagitis 775503811 K21.9 omeprazole 40 mg daily Minimal co gnitive impairment 637758044 G31.84 Could be sequelae from COVID vs. depression vs. early dementia. Will encourage activity and socializat ion as able. Pt. wearing N-95 mask when walking in hallway. Psych eval for further assessment . Mixed anxi ety and depressive disorder 759098585 F41.8 effexor er 150 mg/37.5 mg depakote 250 mg qd trazadone 25 mg hs ativan 2 mg q12hr prn [id number] ALEXIS DOLAN NP [address] [address] 09/27/2022 14:16:16 10/02/2022 09:19:15 Dislocation of hip joint prosthesis 384050136 Z96.649 s/p pTHA revision.P T OT eval and tx.WBATAPA P 650 mg tid sched.oxyc odone 5 or 10 mg q6 hr prn - changing to q 4 hrs with caution to allow for more flexibilit y of dosing - watch MS/deliriu m, hold med for oversedati on.Eliquis for AC - currently 2.5 mg bid , then increase to 5 mg bid on 10/02.Follow VS, labs, pain, CSM for changeFoll ow up with Dr. Cheema 11/02 Anemia due to blood loss 286070114 D50.0 s/p 2 units PRBCsFe level low in hosp., but Fe not started. Consider starting if H/H slow to improve.Mo nitor CBC closelyOn lower dose of AC for now (see above) Delirium 8177366 F09 Problemati c in hosp., felt related to oxycodone. Monitor cognition here, quite stable at presentCon tinue to use oxycodone with caution, adjsut dosing/med prn Paroxysmal atrial fibrillation [id number] I48.0 Continue:E liquis for AC, 2.5 mg bid due to recent bleeding, then increase to 5 mg bid on etopro lol 25 mg bidMonitor VS, labs, adjust meds prn Essential hypertension 77673844 I10 Continue:N orvasc 2.5 mg dailyMetop rolol 25 mg bidMonitor VS, adjust meds prn Mixed anxi ety and depressive disorder 032325719 F41.8 followed by psychiatry as outpt.Cont inue usual meds:Depak ote 500 mg q moses.Ativan 1 mg q 12 hrs prn x 14 days, then re-evalVen lafaxine ER 150 mg daily [id number] Smitha Sparks MD [address] [address] 09/28/2022 17:05:58 10/05/2022 12:58:36 Dislocation of hip joint prosthesis [id number] T84.021D S/P multiple problems with left hip prosthesis .Now with hopefully definitive procedure. Continue APAP 650 mg TID and q 4 hrs prn and oxycodone 5-10 mg q 4 hrs prn.Contin ue Eliquis for DVT prophylaxi s (already on this for Afib), was held and then restarted at 2.5 mg BID, then to increase to 5 mg BID on 10/02 as long as hgb stable.Nee ds PT/OT for strengthen ing, balance, gait training, safety and function.C ontinue fall precaution s.Monitor for safety.Sandra l need to check with Dr. Cheema about removal of wound vac.Follow up with ortho, Dr. Cheema, 11/02 Anemia due to blood loss 612663680 D50.0 Hgb improving. Consider adding iron supplement (with vitamin C).Monitor labs. Delirium 9307040 F09 See above, unclear if delerium or dementia/p sych stuff.Cont inue to monitor effect of meds for pain and anxiety.Ps [facility] consult. Paroxysmal atrial fibrillation 912268841 I48.0 Rate in good control on metoprolol 25 mg BIDContinu e eliquis 5 mg BID for AC.Monitor HR and bleeding risk. Essential hypertension 07388905 I10 BP low on admission, not rechecked since then.Lety nue amlodipine 2.5 mg qd and metoprolol 25 mg BIDAsked for daily BPs.Monito r labs. Mixed anxi ety and depressive disorder 077993461 F41.8 Very agitated tonight, doesn't seem oriented.W ill invoke HCP.Contin ue Depakote 500 mg qd, venlafaxin e 150 mg qd and will increase lorazepam to 1 mg q 6 hrs prn.Monito r mood and behaviors. Consult psych COVID-19 196959421 U07.1 Initial + COVID test >1 month ago. No further sxs. an come off precaution s by sxs and time criteria, but still testing +, so by facility protocols will still be on precaution s. Monitor for sequelae. Pulmonary embolism 93339 003 I26.99 Hx of.On Eliquis at baseline for Afib.Monit or for recurrent sxs. Gastroesop hageal reflux disease without esophagitis 180209769 K21.9 No current sxs.Contin ue omeprazole 40 mg qdMonitor sxs. History of malignant neoplasm of prostate 661637977 Z85.46 No longer on alfuzosinF /U with uro as planned. Chronic back pain 971312 002 G89.29 Pain management as above F/U with Dr. Lara as planned. [id number] JADE Melton [address] [address] 10/02/2022 10:50:53 10/05/2022 15:18:26 Dislocation of hip joint prosthesis 645812925 Z96.649 s/p pTHA revisionco ntinue PT OTWBATAPAP 650 mg tidoxycodo ne 5 or 10 mg q 4 hrs prnwatch MS/deliriu m, hold med for oversedati on.Eliquis for AC - currently 2.5 mg bid, increase to 5 mg bid on 10/04monitor incision, wound vacFollow up with Dr. Cheema 11/02 Anemia due to blood loss 650283100 D50.0 s/p 2 units PRBCshgb improved to 8.8 on 10/01 from 8.1 on 2Fe level low in hospital, but Fe not startedCon dietitian starting Fe if H/H slow to improveMon itor CBC closely Delirium 3950730 F09 Problemati c in hospital, felt related to oxycodone. use oxycodone with cautionadj ust dosing/med prn Paroxysmal atrial fibrillation 186796444 I48.0 Eliquis for AC, 2.5 mg bid due to recent bleeding, then increase to 5 mg bid on 10/04Metopro lol 25 mg bidMonitor for rate control, bleeding Essential hypertension 74987127 I10 bp normalNorv asc 2.5 mg qdMetoprol ol 25 mg bidMonitor bp and adjust dose prn Mixed anxi ety and depressive disorder 479993429 F41.8 followed by psychiatry as outptDepak ote 500 mg q pmAtivan 1 mg q 12 hrs prn - re-eval on 10/10Venlaf axine ER 150 mg qdmonitor mood [id number] CAROLEE BELLEP [address] [address] 10/04/2022 11:31:00 10/11/2022 16:01:04 Dislocation of hip joint prosthesis 232332053 T84.021D s/p pTHA revisionwo und vac removed 10/01 due to malfunctio ningcontin ue PT OTWBATAPAP 650 mg tidoxycodo ne 5 or 10 mg q 4 hrs prn monitor for delirium and hold for sedation.e liquis for AC -increase to 5 mg bid on gb 8.8monitor incision for s/sx infectionF ollow up with Dr. Cheema 11/02 Anemia due to blood loss 958049095 D50.0 Hgb improving 8.8Conside r adding iron supplement (with vitamin C)Monitor labs will recheck on 10/08 Mixed anxi ety and depressive disorder 244826582 F41.8 Continue Depakote 500 mg qdvenlafax ine 150 mg qdlorazepa m to 1 mg q 6 hrs prn.Monito r for mood and behavior changesCon sult psych prn Delirium 5993070 F09 See above, unclear if delerium or dementia/p sych stuff.Cont inue to monitor effect of meds for pain and anxiety.Ps ych consult. Paroxysmal atrial fibrillation 271178287 I48.0 HR 84continue metoprolol 25 mg BIDContinu e eliquis 5 mg BID for AC.Monitor HR and bleeding risk.monit or VS and clinical sx changes. Essential hypertension 41348099 I10 BP low on admission, not rechecked since then.Lety nue amlodipine 2.5 mg qd and (metoprolo l 25 mg BID- added parameter to hold for < 120)monito r VSMonitor labs as needed. Gastroesop hageal reflux disease without esophagitis 286943948 K21.9 No current sxs.Contin ue omeprazole 40 mg qdmonitor clinical sx changes Pulmonary embolism 51481 003 I26.99 Hx of.On Eliquis at baseline for Afib.Monit or for recurrent sxs. Chronic back pain 798463 002 G89.29 Pain management as above F/U with Dr. Lara as planned. History of malignant neoplasm of prostate 103906768 Z85.46 No longer on alfuzosinF /U with uro as planned. COVID-19 974775331 U07.1 Initial + COVID test >1 month ago. No further sxs. an come off precaution s by sxs and time criteria, but still testing +, so by facility protocols will still be on precaution s. Monitor for sequelae. [id number] JADE BELLE [address] [address] 10/08/2022 16:25:55 10/11/2022 16:19:59 Dislocation of hip joint prosthesis 133522447 T84.021D s/p pTHA revisionwo und vac removed 10/01 due to malfunctio ningcontin ue PT OTWBATAPAP 650 mg tidoxycodo ne 5 or 10 mg q 4 hrs prn monitor for delirium and hold for sedation.e liquis for AC -increase to 5 mg bid on 8hgb 8.8monitor incision for s/sx infectionF ollow up with Dr. Cheema 10/03 and 11/02.missed f/u on 10/03 nursing asked to follow up ? if he needs to be seen before next appt. Anemia due to blood loss 481682710 D50.0 Hgb improving 9.4Conside r adding iron supplement (with vitamin C)Monitor labs Mixed anxi ety and depressive disorder 310192764 F41.8 Continue Depakote 500 mg qdvenlafax ine 150 mg qdlorazepa m to 1 mg q 6 hrs prn.Monito r for mood and behavior changesCon sult psych prn Delirium 1976817 F09 no reported behavior concerns.S ee above, unclear if delerium or dementia/p sych stuff.Cont inue to monitor effect of meds for pain and anxiety.Ps ych consult. Paroxysmal atrial fibrillation 292366377 I48.0 continue metoprolol 25 mg BIDContinu e eliquis 5 mg BID for AC.Monitor HR and bleeding risk. monitor for abn bruising/b leedingmon itor VS and clinical sx changes. Essential hypertension 03692349 I10 BP low on admission, not rechecked since then.Lety nue amlodipine 2.5 mg qd and (metoprolo l 25 mg BID- added parameter to hold for < 120)monito r VSMonitor labs as needed. Gastroesop hageal reflux disease without esophagitis 626798949 K21.9 No current sxs.Contin ue omeprazole 40 mg qd monitor clinical sx changes Pulmonary embolism 73209 003 I26.99 Hx of.On Eliquis at baseline for Afib.Monit or for recurrent sxs. Chronic back pain 526787 002 G89.29 Pain management as above F/U with Dr. Lara as planned. History of malignant neoplasm of prostate 959038915 Z85.46 No longer on alfuzosinF /U with uro as planned. COVID-19 595918063 U07.1 Initial + COVID test >1 month ago. No further sxs. an come off precaution s by sxs and time criteria, but still testing +, so by facility protocols will still be on precaution s. Monitor for sequelae. Fall W19.XXXA unwitnesse d fall on eliquisfal l on 10/07 found on floor in roomleft hand skin tearminimi ze fall riskneuro checks per protocolla bs 10/09 Surgical i ncision wound of skin 4179755692 00 R23.8 left hip incision THA with musa intact no drainagewo und edges approximat ed, appears healed, surroundin g skin pink, clean dry and intact, no redness or warmth.sandra l have nursing remove staple and cover with steri strips. [id number] ALEXIS DOLAN NP [address] [place] [address] 10/10/2022 12:31:45 10/12/2022 09:40:08 Dislocation of hip joint prosthesis 133786997 T84.021D s/p pTHA revisionWa s in extreme distress this am upon eval, required 15 mg oxycodone plus ativan to ease pain and anxiety. Pt. shared he did not take a pain pill last night and maybe that is why his pain was so bad this am.Pain mgmt. discussed, and he is agreeable to taking sched. oxycodone in add. to prn. Will change order to 5 mg q 8 hrs, and 5 mg q4 hr prn, ok to take both doses together. Monitor use and effect, continue to adjust prncontinu e PT OT - WBATcontin ue APAP 650 mg tidcontinu e eliquis for AC 5 mg bidmonitor incision for s/sx infection - musa now out, looking good.Cesar w up with Dr. Cheema sched. 10/03 and 11/02.missed f/u on , will have nsg. reschedule . Anemia due to blood loss 641463081 D50.0 Hgb improving - 9.4Monitor labs Mixed anxi ety and depressive disorder 283074212 F41.8 Continue Depakote 500 mg qdvenlafax ine 150 mg qdlorazepa m to 1 mg q 6 hrs prn.Monito r for mood and behavior changesCon sult psych prn Delirium 2607121 F09 no reported behavior concerns.S ee above, unclear if delerium or dementia/p sych stuff.Cont inue to monitor effect of meds for pain and anxiety.Ps [facility] consult. Paroxysmal atrial fibrillation 385652377 I48.0 continue metoprolol 25 mg BIDContinu e eliquis 5 mg BID for AC.Monitor HR and bleeding risk.monit or VS and clinical sx changes. Essential hypertension 42035178 I10 Currently on amlodipine 2.5 mg qd and metoprolol 25 mg BIDmonitor VS dailyMonit or labs as needed. Gastroesop hageal reflux disease without esophagitis 744393934 K21.9 No current sxs.Contin ue omeprazole 40 mg qd monitor clinical sx changes Pulmonary embolism 90828 003 I26.99 Hx of.On Eliquis at baseline for Afib.Monit or for recurrent sxs. Chronic back pain 539906 002 G89.29 Pain management as above F/U with Dr. Lara as planned. fall W19.XXXA unwitnesse d fall 10/07 in roomDue to acute issues with back pain this am, checking T-L spine x rays to r/o injury/fra ctureneuro checks per protocolla bs stable. [id number] ALEXIS DOLAN NP [address] [address] 10/15/2022 11:34:31 10/17/2022 08:25:24 Dislocation of hip joint prosthesis 407125210 T84.021D s/p pTHA revisionHa d Ortho follow up the end of last week, and unfortunat tiffany his hip dislocated again at the office. He is now NPO and will be headed back to [facility] for more surgery.Cu rrently in bed, NAD, discourage d he needs more surgery. Emotional support provided. fall W19.XXXA unwitnesse d fall 10/07 in roomDue to acute issues with back pain last week, checked T-L spine x rays - no acute process noted.neur o checks per protocolla bs stable. Anemia due to blood loss 124399303 D50.0 Hgb improving - 9.4Monitor ing labs Mixed anxi ety and depressive disorder 243118259 F41.8 Continue Depakote 500 mg qdvenlafax ine 150 mg qdlorazepa m to 1 mg q 6 hrs prn.Monito r for mood and behavior changesCon sult psych prn Delirium 3602592 F09 no reported behavior concerns.S ee above, unclear if delerium or dementia/p sych stuff.Cont inue to monitor effect of meds for pain and anxiety.Ps [facility] consult. Paroxysmal atrial fibrillation 548394815 I48.0 continue metoprolol 25 mg BIDContinu e eliquis 5 mg BID for AC.Monitor HR and bleeding risk.monit or VS and clinical sx changes. Essential hypertension 90222427 I10 Currently on amlodipine 2.5 mg qd and metoprolol 25 mg BIDmonitor VS dailyMonit or labs as needed. Gastroesop hageal reflux disease without esophagitis 076426512 K21.9 No current sxs.Contin ue omeprazole 40 mg qd monitor clinical sx changes Pulmonary embolism 93834 003 I26.99 Hx of.On Eliquis at baseline for Afib.Monit or for recurrent sxs. Chronic back pain 015706 002 G89.29 Pain management as above F/U with Dr. Lara as planned. [id number] ROSANA VILLEDA NP [facility] [address] [address] 10/20/2022 12:48:18 10/24/2022 09:08:53 Surgical incision wound of skin 0038783925 00 R23.[address], change per surgical recommenda tionsfollo wup with ortho 10/29 and 11/30wound consult Dislocatio n of hip joint prosthesis 677368487 Z96.649 s/p pTHA revision.P T OT eval and tx.WBATAPA P 650 mg tid sched.dila udid 2 mg q4hr prnbaclofe n 5 mg tid prnEliquis for AC - currently 2.5 mg bid , then increase to 5 mg bid on 10/02. NEEDS CLARIFICAT IONFollow VS, labs, pain, CSM for changeFoll ow up with Dr. Cheema 10/29 and 11/30 Anemia due to blood loss 531332702 D50.0 s/p 2 units PRBCs on previous admissionC onsider starting iron if H/H slow to improve.Mo nitor CBC closelyOn lower dose of AC for now (see above) Paroxysmal atrial fibrillation 573458573 I48.0 Continue:E liquis for AC, 2.5 mg bid due to recent bleeding, then increase to 5 mg bid on etopro lol 25 mg bidMonitor VS, labs, adjust meds prn Essential hypertension 00280449 I10 Continue:N orvasc 2.5 mg dailyMetop rolol 25 mg bidMonitor VS, adjust meds prn Mixed anxi ety and depressive disorder 326296466 F41.8 followed by psychiatry as outpt.Cont inue usual meds:Depak ote 500 mg q moses.Ativan 1 mg q 12 hrs prn x 14 days, then re-evalVen lafaxine ER 150 mg daily Gastroesop hageal reflux disease without esophagitis 862795575 K21.9 protonix 40 mg daily Fall W19.XXXA PT OT eval and treat encourage and remind him about walker use fall precaution s [id number] Antonieta Brito NP [facility] [address] [place] [address] 10/23/2022 09:29:47 10/25/2022 10:25:09 Surgical incision wound of skin 5052426584 00 R23.[address], change per surgical recommenda tionsfollo wup with ortho 10/29 and 11/30wound consult Dislocatio n of hip joint prosthesis 320003761 Z96.649 s/p pTHA revision.P T OT eval and tx.WBATAPA P 650 mg tid sched.10/23 start dilaudid 2 mg po bidand dilaudid 2-4 mg q4hr prn for painbaclof en 5 mg tid prnEliquis for AC 5 mg bid for hx of PE.Follow VS, labs, pain, CSM for changeFoll ow up with Dr. Cheema 10/29 and 11/30 Anemia due to blood loss 841740410 D50.0 labs stable on 10/19s/p 2 units PRBCs on previous admission with wound vac nowConside r starting iron if H/H slow to improve.Mo nitor CBC closelyOn lower dose of AC for now (see above) Paroxysmal atrial fibrillation 496132568 I48.0 ContEliqui s for AC 5 mg bid for hx of PE per notesMetop rolol 25 mg bidMonitor VS, labs, adjust meds prn Essential hypertension 14014834 I10 bp stable,Con tNorvasc 2.5 mg dailyMetop rolol 25 mg bidMonitor VS, adjust meds prn Mixed anxi ety and depressive disorder 685460024 F41.8 followed by psychiatry as outpt.Cont Depakote 500 mg q moses.Ativan 1 mg q 12 hrs prn x 14 days, then re-evalVen lafaxine ER 150 mg daily Abrasion 418739063 T14.8 XXA healinglef t hand abrasion noted upon return from hospital 10/19monito r left hand closely for s/s of infectionn o dressing required today [id number] ALEXIS DOLAN NP [address] [place] [address] 10/25/2022 11:12:00 10/28/2022 19:32:27 Surgical incision wound of skin 8590760687 00 R23.[address] left hipconcern of infection at this time in light of temp, low BP, altered MS, redness and warmth left hip connor-incis ional area.Will send to ER for eval and tx.Nsg. to update Ortho of concerns and transfer. Dislocatio n of hip joint prosthesis 022847158 Z96.649 s/p pTHA revision.N ow with concern of infection as above, sending to ER for eval and tx; nsg. updating Ortho of concerns and transfer. Anemia due to blood loss 771755636 D50.0 labs stable on 10/19, but lrg. amts of sanguinous drainage in wound vacs/p 2 units PRBCs on previous admissionC onsider starting iron if H/H slow to improve.Mo nitor CBC closelyOn lower dose of AC for now (see above) Paroxysmal atrial fibrillation 033819037 I48.0 ContEliqui s for AC 5 mg bid for hx of PE per notesMetop rolol 25 mg bidMonitor VS, labs, adjust meds prn Essential hypertension 66048644 I10 bp stable,Con tNorvasc 2.5 mg dailyMetop rolol 25 mg bidMonitor VS, adjust meds prn Mixed anxi ety and depressive disorder 768192420 F41.8 Curently with increased anxietyfol lowed by psychiatry as outpt.Cont Depakote 500 mg q moses.Ativan 1 mg q 12 hrs prn x 14 days, then re-eval - may consider scheduling if remains problemati c, but riht now sending to ER for eval due to concern of left hip incision.V enlafaxine ER 150 mg daily Abrasion 349653040 T14.8 XXA healinglef t hand abrasion noted upon return from hospital r left hand closely for s/s of infectionn o dressing required today [id number] ALEXIS DOLAN NP [address] [address] 11/15/2022 14:41:34 11/20/2022 09:05:37 Dislocation of hip joint prosthesis 006454319 Z96.649 s/p pTHA revision, complicati ons as aboveFollo w up with Ortho as sched.Cont inue:APAP prnlidoder m patch dailyOxyco done 5-10 mg q 6 hr prnBaclofe n 5 mg tid prn x 7 daysColace bid, miralax prn for bowels Anemia due to blood loss 347618992 D50.0 Required 4 units PRBCs post op.Monitor CBC q saturdayRema ins on AC, higher risk of bleed Paroxysmal atrial fibrillation 043172774 I48.0 ContEliqui s for AC 5 mg bid for hx of PE per notesMetop rolol 25 mg bidMonitor VS, labs, adjust meds prn Essential hypertension 29091593 I10 Norvasc 2.5 mg dailyMetop rolol 25 mg bidMonitor VS, adjust meds prn Mixed anxi ety and depressive disorder 428337299 F41.8 Followed by psychiatry as outpt.Cont Depakote 500 mg q moses.Ativan 1 mg q 12 hrs prn x 14 days, then re-eval - may consider scheduling if remains problemati c,Venlafax ine ER 150 mg daily Abrasion 175677450 T14.8 XXA healinglef t hand abrasion noted upon return from hospital r left hand closely for s/s of infectionn o dressing required today Sepsis cau sed by Escherichia coli 108683641 A41.51 sent to ER with concern of left hip infectionB C and hip aspirate grew E. Coli.Per ID, now on cefazolin 2 gm q 8 hrs x 6 weeksClini stephan improving. Current IV line not flushing, IV team called for assessment /replaceme nt ASAPCBC, CMP q saturdayID follow up 12/24 ([facility] ID) Asthenia [id number] R53.1 Very deconditio nedFall last night, no injuryPT OT eval and tx. [id number] ALEXIS DOLAN, DIONICIO [facility] [address] [place] [address] 11/21/2022 14:06:44 11/26/2022 08:58:43 Sepsis caused by Escherichia coli 033657060 A41.51 sent to ER with concern of left hip infectionB C and hip aspirate grew E. Coli.Per ID, now on cefazolin 2 gm q 8 hrs x 6 weeksClini stephan improving. CBC, CMP q saturdayID follow up 12/24 ([facility] ID) Anemia due to blood loss 344157082 D50.0 Required 4 units PRBCs post op.Slight drop - hgb now 7.5Monitor CBC q saturday, s/s active bleedRemai ns on AC, higher risk of bleed Dislocatio n of hip joint prosthesis 698751350 Z96.649 s/p pTHA revision, complicati ons as aboveFollo w up with Ortho as sched.Cont inue:APAP prnlidoder m patch dailyChang e oxycodone: 5 mg po q 6 am, and q4 hrs prnBaclofe n 5 mg tid prn x 7 daysBowels on the softer side - stop colace bid, change miralax to daily prn. Add probiotic bid while on abx. Paroxysmal atrial fibrillation 913746040 I48.0 ContEliqui s for AC 5 mg bid for hx of PE per notesMetop rolol 25 mg bidMonitor VS, labs, adjust meds prn Essential hypertension 07671987 I10 BP on the soft side - stop Norvasc 2.5 mg dailyMetop rolol 25 mg bidMonitor VS, adjust meds prn Mixed anxi ety and depressive disorder 426989383 F41.8 Followed by psychiatry as outpt.Cont Depakote 500 mg q moses.Ativan 1 mg q 12 hrs prn x 14 days, then re-eval - may consider scheduling if remains problemati c,Venlafax ine ER 150 mg dailyMonit or mood, behaviors. Abrasion 481295840 T14.8 XXA healinglef t hand abrasion noted upon return from hospital 10/19monito r left hand closely for s/s of infectionn o dressing required today Asthenia [id number] R53.1 Very deconditio nedFall last week, no injuryPT OT eval and tx. [id number] Antonieta Brito NP [facility] [address] [place] [address] 11/23/2022 10:48:10 11/27/2022 15:14:46 Sepsis caused by Escherichia coli 697365449 A41.51 doing well, vss afebrilele ft hip infection with recent er visitBC and hip aspirate grew E. Coli.Per ID, now on cefazolin 2 gm q 8 hrs x 6 weeksClini setphan improving. CBC, CMP q saturdayID follow up 12/24 ([facility] ID) Anemia due to blood loss 437856553 D50.0 Required 4 units PRBCs post op.Slight drop - hgb now 7.5Monitor CBC q saturday, s/s active bleedRemai ns on AC, higher risk of bleed Dislocatio n of hip joint prosthesis 041221129 Z96.649 s/p pTHA revision, complicati ons as aboveFollo w up with Ortho as sched.Cont inue:APAP prnlidoder m patch dailyoxyco done: 5 mg po q 6 am, and q4 hrs prnpain is getting worse will consult physiatris t for pain management per requestBac lofen 5 mg tid prn x 7 daysmirala x to daily prn, colace stopped for soft stoolsprob iotic bid while on abx. Paroxysmal atrial fibrillation 630971738 I48.0 ContEliqui s for AC 5 mg bid for hx of PE per notesMetop rolol 25 mg bidMonitor VS, labs, adjust meds prn Essential hypertension 96486381 I10 bp 108/69 today,BP on the soft side lately, Norvasc 2.5 mg daily stopped at last visit 11/21Metopr olol 25 mg bidMonitor VS, adjust meds prn Mixed anxi ety and depressive disorder 311111306 F41.8 Followed by psychiatry as outpt.Cont Depakote 500 mg q moses.Ativan 1 mg q 12 hrs prn x 14 days, then re-eval 11/28 - may consider scheduling if remains problemati c,Venlafax ine ER 150 mg dailyMonit or mood, behaviors. Abrasion 871691487 T14.8 XXA healing resolvedle ft hand abrasion noted upon return from hospital 10/19monito r left hand closely for s/s of infectionn o dressing required today Asthenia 10873757 R53.1 Very deconditio nedFall last week, no injuryPT OT eval and tx. [id number] Antonieta Brito NP [address] [place] [address] 11/28/2022 08:04:23 11/30/2022 13:21:35 Sepsis caused by Escherichia coli 115287975 A41.51 doing well, vss afebrilele ft hip infection with recent er visitBC and hip aspirate grew E. Coli.Per ID, now on cefazolin 2 gm q 8 hrs x 6 weeksClini stephan improving. CBC, CMP q mondaysnew midline placed today on 11/28, will wrap with shelby wrap and long sleeve shirtif pt pulls out midline again, considerin g sending to ERID follow up 12/24 ([facility] ID) Anemia due to blood loss 710858691 D50.0 Required 4 units PRBCs post op.Slight drop - hgb now 7.5Monitor CBC q saturday, s/s active bleedRemai ns on AC, higher risk of bleed Dislocatio n of hip joint prosthesis 799959867 Z96.649 s/p pTHA revision, complicati ons as aboveFollo w up with Ortho as sched.Cont inue:APAP prnlidoder m patch dailyoxyco done: 5 mg po q 6 am, and q4 hrs prnpain is getting worse will consult physiatris t for pain management per requestBac lofen 5 mg tid prn x 7 days total miralax to daily prn, colace stopped for soft stoolsprob iotic bid while on abx. Paroxysmal atrial fibrillation 232107863 I48.0 ContEliqui s for AC 5 mg bid for hx of PE per notesMetop rolol 25 mg bidMonitor VS, labs, adjust meds prn Essential hypertension 72299478 I10 104/64 BP on the soft side lately, Norvasc 2.5 mg daily stopped on 11/21Metopr olol 25 mg bidMonitor VS, adjust meds prn Mixed anxi ety and depressive disorder 913428543 F41.8 Followed by psychiatry as outpt.Cont Depakote 500 mg q moses.Ativan 1 mg q 12 hrs prn x 14 days will continue and reeval on 12/12,- may consider scheduling if remains problemati c,Venlafax ine ER 150 mg dailyMonit or mood, behaviors. Asthenia [id number] R53.1 Very deconditio nedFall last week, no injuryPT OT eval and tx. [id number] Ayo Jeffrey MD [address] [address] 12/03/2022 08:20:09 12/06/2022 16:23:47 Sepsis caused by Escherichia coli 401637730 A41.51 see HPIdx with sepsis now to complete 6 week course ofcefazoli n 2 gm q 8add probioticu pdate ID with concernsmo nitor cbc Anemia due to blood loss 239113933 D50.0 Required 4 units PRBCsmonit or cbcnow on eliquis 5 mg bidmonitor for bleeding Dislocatio n of hip joint prosthesis 504483815 Z96.649 recurrent dislocatio ns following replacemen tfollow ortho recsupdate with concernthe rapy to follow Paroxysmal atrial fibrillation 035498124 I48.0 eliquis 5 mg bidmetopro lol 25 mg bidmonitor for rate control Essential hypertension 08006600 I10 norvasc 2.5 mg qdmetoprol ol 25 mg bidmonitor bp and need for titration Mixed anxi ety and depressive disorder 761260563 F41.8 continue out patient medsmonito r moodpsych eval prn Asthenia 26128346 R53.1 PT OT eval and treatmonit or fall risk and need for increased services in community 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 unsure of baselinemo nitor cognitive function and need to invoke Gastroesop hageal reflux disease without esophagitis 958461028 K21.9 pantaprozo le 40 mg qdmonitor for sx control Primary insomnia 8740014 F51.01 add melatonin 6 mg qhs addedmonit or for effect Hearing loss 03175555 H9 0.0 need to shoutconsi keaton need for audiology eval [id number] Antonieta Brito NP [address] [address] 12/04/2022 15:15:10 12/05/2022 20:38:27 Sepsis caused by Escherichia coli 589910950 A41.51 left hipdx with sepsis now to complete 6 week course ofcefazoli n 2 gm q 8 until 12/06, then start keflex 1000 mg po tid for 3 weeks per ID todayadd probiotic until end of abx treatmentu pdate ID with concernsco nsider removing midline when ablemonito r cbc, stable Anemia due to blood loss 125445427 D50.0 Required 4 units PRBCsmonit or cbcnow on eliquis 5 mg bidmonitor for bleedingh/ h stable 8.5/27.3 Dislocatio n of hip joint prosthesis 140439255 Z96.649 recurrent dislocatio ns following replacemen tfollow ortho recsupdate with concernthe rapy to follow Paroxysmal atrial fibrillation 907929223 I48.0 eliquis 5 mg bidmetopro lol 25 mg bidmonitor for rate control Essential hypertension 04344177 I10 boderline low 104/64norv asc 2.5 mg qdmetoprol ol 25 mg bidmonitor bp and need for titration Mixed anxi ety and depressive disorder 016155452 F41.8 Followed by psychiatry as outpt.Cont Depakote 500 mg q moses.Ativan 1 mg q 12 hrs prn x 14 days will continue and reeval on 12/12,- may consider scheduling if remains problemati c,Venlafax ine ER 150 mg dailyMonit or mood, behaviors. 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 unsure of baselinemo nitor cognitive function and need to invoke Gastroesop hageal reflux disease without esophagitis 696938616 K21.9 pantaprozo le 40 mg qdmonitor for sx control Primary insomnia 3602780 F51.01 melatonin 6 mg qhsmonitor for effect Hearing loss 56073332 H9 0.0 need to shoutconsi keaton need for audiology eval [id number] Antonieta Brito NP [address] [address] 12/07/2022 11:13:19 12/12/2022 13:53:30 Sepsis caused by Escherichia coli 692782428 A41.51 left hipdx with sepsis now to complete 6 week course ofcefazoli n 2 gm q 8 until 12/06, then start keflex 1000 mg po tid for 3 weeks per ID todayprobi otic until end of abx treatmentu pdate ID with concernsco nsider removing midline when ablemonito r cbc, stable Mixed anxi ety and depressive disorder 858064914 F41.8 Followed by psychiatry as outpt. Cont Depakote 500 mg q moses. 12/07 increase ativan 1 mg po bid to tid as he is requiring doses Ativan 1 mg po q 12 prn anxiety, reeval 12/12 Venlafaxin e ER 150 mg daily Monitor mood, behaviors. 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 following replacemen tfollow ortho recstyleno l sched tidincreas e oxycodone 5 mg po to 5 times a day with times agreed to with ptcont oxycodone q 4 hours prn painupdate with concernthe rapy to followfu with surgery for notable pain not resolving post oppsychiat rist to see pt if pain continues Paroxysmal atrial fibrillation 128178845 I48.0 eliquis 5 mg bidmetopro lol 25 mg bidmonitor for rate control Essential hypertension 78317492 I10 bps boderlinem etoprolol 25 mg bidmonitor bp and need for titration Anemia due to blood loss 898805720 D50.0 Required 4 units PRBCsmonit or cbceliquis 5 mg bidmonitor for bleedingla bs weekly Asthenia 02559951 R53.1 PT OT eval and treatmonit or fall risk and need for increased services in community Minimal co gnitive impairment 746484635 G31.84 unsure of baselinean xiety at baselinemo nitor cognitive function and need to invoke Gastroesop hageal reflux disease without esophagitis 479336294 K21.9 pantaprozo le 40 mg qdmonitor for sx control Primary insomnia 3901954 F51.01 add melatonin 6 mg qhs addedmonit or for effect Hearing loss 63406679 H9 0.0 need to shoutconsi keaton need for audiology eval [id number] Antonieta Brito NP [facility] [address] [place] [address] 12/10/2022 15:41:32 12/12/2022 14:16:21 Sepsis caused by Escherichia coli 306845491 A41.51 left hipdx with sepsis now to complete 6 week course of12/10/22 okay to remove picc line today -he has finished iv abxcefazol in 2 gm q 8 until 12/06, then start keflex 1000 mg po tid for 3 weeks per ID todayprobi otic until end of abx treatmentu pdate ID with concernsmo nitor cbc, stable Mixed anxi ety and depressive disorder 841580331 F41.8 Followed by psychiatry as outpt.Cont Depakote 500 mg q moses.on 12/07 increased ativan 1 mg po bid to tid as he is requiring doses, he is doing much better on this regimenAti van 1 mg po q 12 prn anxiety, reeval 12/12Venlaf axine ER 150 mg dailyMonit or mood, behaviors. psych eval prn Dislocatio n of hip joint prosthesis 781583508 Z96.649 recurrent dislocatio ns following replacemen tfollow ortho recstyleno l sched tidoxycodo ne 5 mg po to 5 times a day with times agreed to with pt, doing much bettercont oxycodone q 4 hours prn pain, has not requiredup date with concernthe rapy to followfu with surgery for notable pain not resolving post oppsychiat rist to see pt if pain continues Paroxysmal atrial fibrillation 459906876 I48.0 eliquis 5 mg bidmetopro lol 25 mg bidmonitor for rate control Essential hypertension 79784508 I10 bps boderlinem etoprolol 25 mg bidmonitor bp and need for titration Anemia due to blood loss 200499629 D50.0 stable today ,Required 4 units PRBCs in recent past post opmonitor cbceliquis 5 mg bidmonitor for bleedingla bs weekly Asthenia 69731001 R53.1 PT OT eval and treatmonit or fall risk and need for increased services in community Minimal co gnitive impairment 646725453 G31.84 unsure of baselinean xiety at baselinemo nitor cognitive function and need to invoke Gastroesop hageal reflux disease without esophagitis 763021747 K21.9 pantaprozo le 40 mg qdmonitor for sx control Primary insomnia 8865632 F51.01 melatonin 6 mg qhs addedmonit or for effect Hernia of anterior abdominal wall 539785014 K43.9 likely ventral hernia in mid upper abd with 3 vicral sutures sticking out of abdomen along old healed incision line.pt states this was a few years ago for the last obstructio n surgery done at [facility] emergently consult [facility] for removal of vicral sutures and evaluation of hernia to mid abdmonitor [id number] Antonieta Brito NP [facility] [address] 12/12/2022 11:24:56 12/18/2022 09:54:41 Asthenia 22755289 R53.1 PT OT eval and treatmonit or fall risk and need for increased services in community Abrasion 451390587 T14.8 XXA left forearm abrasion noted healing <1.5 cm with dsg dailymonit or left hand closely for s/s of infectionu nclear if this reopened with fall on 12/11 or separate Fall W19.XXXA PT OT eval and treatno apparent injuries for fall on 12/11enc age and remind him about walker usefall precaution s [id number] Antonieta Brito NP [facility] [address] [address] 12/13/2022 08:03:19 12/18/2022 10:26:01 Asthenia 09418506 R53.1 PT OT eval and treatmonit or fall risk and need for increased services in community Fall W19.XXXA PT OT eval and treatno apparent injuries for fall on 12/11 or age and remind him about walker usefall precaution s Sepsis cau sed by Escherichia coli 028384174 A41.51 left hipdx with sepsis now to complete 6 week course of12/10/22 okay to remove picc line today -he has finished iv abxcefazol in 2 gm q 8 until 12/06, then start keflex 1000 mg po tid for 3 weeks per ID todayprobi otic until end of abx treatmentu pdate ID with concernsmo nitor cbc, stable Hernia of anterior abdominal wall 417835227 K43.9 likely ventral hernia in mid upper abd with 3 vicral sutures sticking out of abdomen along old healed incision line.pt states this was a few years ago for the last obstructio n surgery done at [facility] emergently pending consult [facility] for removal of vicral sutures and evaluation of hernia to mid abdmonitor Mixed anxi ety and depressive disorder 590134356 F41.8 Followed by psychiatry as outpt.Cont Depakote 500 mg q moses. 12/13 decrease ativan to 1 mg po in am and at 230pm12/13 will dc ativan at bedtime, pt aware due to falls dc Ativan 1 mg po q 12 prn anxiety, reeval 12/12 Venlafaxin e ER 150 mg dailyMonit or mood, behaviors. psych eval prn Dislocatio n of hip joint prosthesis 905004763 Z96.649 recurrent dislocatio ns following replacemen tfollow ortho recstyleno l sched tidcont oxycodone 5 mg po to 5 times a day with times agreed to with pt, doing much better12/13 change oxycodone q 4 hours prn pain to q 12 hours prn for severe breakthrou gh pain only, has not used muchupdate with concernthe rapy to followfu with surgery for notable pain not resolving post oppsychiat rist to see pt if pain continues Paroxysmal atrial fibrillation 244200258 I48.0 eliquis 5 mg bidmetopro lol 25 mg bidmonitor for rate control Essential hypertension 47786906 I10 bps boderlinem etoprolol 25 mg bidmonitor bp and need for titration Anemia due to blood loss 787910421 D50.0 stable today ,Required 4 units PRBCs in recent past post opmonitor cbceliquis 5 mg bidmonitor for bleedingla bs weekly Minimal co gnitive impairment 419311211 G31.84 unsure of baselinean xiety at baselinemo nitor cognitive function and need to invoke Gastroesop hageal reflux disease without esophagitis 357573090 K21.9 pantaprozo le 40 mg qdmonitor for sx control Primary insomnia 9949234 F51.01 melatonin 6 mg qhs addedmonit or for effect [id number] Antonieta Brito NP [address] [place] [address] 12/18/2022 10:30:53 12/21/2022 15:44:15 Asthenia 21095310 R53.1 PT OT eval and treatmonit or fall risk and need for increased services in community Sepsis cau sed by Escherichia coli 161222419 A41.51 left hipdx with sepsis now to complete 6 week course of12/10/22 okay to remove picc line today -he has finished iv abxcefazol in 2 gm q 8 until 12/06, then start keflex 1000 mg po tid for 3 weeks per ID today until robiot ic until end of abx treatmentu pdate ID with concernsmo nitor cbc, stable Hernia of anterior abdominal wall 033579620 K43.9 likely ventral hernia in mid upper abd with 3 vicral sutures sticking out of abdomen along old healed incision line.pt states this was a few years ago for the last obstructio n surgery done at [facility] emergently *pending consult [facility] for removal of vicral sutures and evaluation of hernia to mid abdmonitor Mixed anxi ety and depressive disorder 544293701 F41.8 Followed by psychiatry as outpt.Cont Depakote 500 mg q moses.ativan 1 mg po at 8am and 2pm daily for anxietyVen lafaxine ER 150 mg dailyMonit or mood, behaviors. psych eval prn Dislocatio n of hip joint prosthesis 453181566 Z96.649 recurrent dislocatio ns following replacemen tfollow ortho recstyleno l sched tidcont oxycodone 5 mg po to 5 times a day with times agreed to with pt, doing much betteroxyc odone q 12 hours prn for severe breakthrou gh pain only, has not used muchupdate with concernthe rapy to followfu with surgery for notable pain not resolving post oppsychiat rist to see pt if pain continues Paroxysmal atrial fibrillation 839195528 I48.0 eliquis 5 mg bidmetopro lol 25 mg bidmonitor for rate control Essential hypertension 79229093 I10 bps boderlinem etoprolol 25 mg bidmonitor bp and need for titration Anemia due to blood loss 156755813 D50.0 stable today ,Required 4 units PRBCs in recent past post opeliquis 5 mg bidmonitor for bleedingla bs weekly with cbc Minimal co gnitive impairment 077231993 G31.84 unsure of baselinean xiety at baselinemo nitor cognitive function and need to invoke Gastroesop hageal reflux disease without esophagitis 584202749 K21.9 pantaprozo le 40 mg qdmonitor for sx control Primary insomnia 6002295 F51.01 melatonin 6 mg qhs addedmonit or for effect Hypoxia 330983482 R09.02 resolvedpt with acute hypoxia with o2 sat of 68% on raSent to er and evaluated without cause and o2 sat resolved0- 4 liters o2 to keep sat >90% should this happen againmonit or o2 sat, s/s of hypoxia, or for altered mental status Altered mental status 41 3004679 R41.82 resolvedse nt out to ed on 12/18 am for ams, now at baseline and resolvedwo rkup negative in ERmonitor for recurrent episode [id number] Antonieta Brito NP [facility] [address] 12/20/2022 08:48:03 12/24/2022 10:58:55 Asthenia 16760642 R53.1 PT OT eval and treat as neededmoni tor fall risk Sepsis cau sed by Escherichia coli 496123034 A41.51 left hipdx with sepsis now to complete 6 week course ofcefazoli n 2 gm q 8 until 12/06, then start keflex 1000 mg po tid for 3 weeks per ID today until robiot ic until end of abx treatmentu pdate ID with concerns as neededmoni tor labs as needed Hernia of anterior abdominal wall 398120651 K43.9 likely ventral hernia in mid upper abd with 3 vicral sutures sticking out of abdomen along old healed incision line.pt states this was a few years ago for the last obstructio n surgery done at [facility] emerg[place] [facility] for removal of vicral sutures and evaluation of hernia to mid abdmonitor for complicati ons Mixed anxi ety and depressive disorder 113343609 F41.8 Followed by psychiatry prnDepakot e 500 mg q moses.ativan 1 mg po at 8am and 2pm daily for anxiety(be dtime ativan removed due to falls)Venl afaxine ER 150 mg dailyMonit or mood, behaviors Dislocatio n of hip joint prosthesis 524978143 Z96.649 recurrent dislocatio ns following replacemen tfollow ortho recstyleno l sched tid, may wean as toleratedo xycodone 5 mg po q 6 hours prn, he is to wean offfu with ortho as neededmoni torpsychia trist to see pt if pain continues Paroxysmal atrial fibrillation 100338911 I48.0 eliquis 5 mg bidmetopro lol 25 mg bidmonitor for rate control Essential hypertension 56808307 I10 bps stable here 120s/70s and pulse 60'smetopr olol 25 mg bidmonitor bp and need for titration Anemia due to blood loss 361957053 D50.0 stable, required 4 units PRBCs in recent past post opeliquis 5 mg bidmonitor for bleeding Minimal co gnitive impairment 333058445 G31.84 unsure of baseline, improved with abxsevere anxiety at baselinemo nitor cognitive function Gastroesop hageal reflux disease without esophagitis 558761311 K21.9 pantaprozo le 40 mg qdmonitor for sx control Primary insomnia 3104732 F51.01 melatonin 6 mg qhsmonitor for effect Hearing loss 93032476 H9 0.0 need to shoutconsi keaton need for audiology eval [id number] Antonieta Brito NP [address] [address] 12/21/2022 08:59:20 12/24/2022 11:06:34 Asthenia 23118757 R53.1 PT OT eval and treat as tolmonitor fall risk and incorporat e safety measures Mixed anxi ety and depressive disorder 894262503 F41.8 Followed by psychiatry as outpt.Depa kote 500 mg q moses.ativan 1 mg po at 8am and 2pm daily for anxiety(be dtime ativan removed due to falls recently)V enlafaxine ER 150 mg dailyMonit or mood, behaviors Dislocatio n of hip joint prosthesis 524622937 Z96.649 recurrent dislocatio ns following replacemen t now healedfoll ow ortho recstyleno l sched tid, may wean as toleratedo xycodone 5 mg po q 6 hours prn, plan to weanfu with ortho as needed outptmonit or Minimal co gnitive impairment 975184915 G31.84 unsure of baseline, improved with abxsevere anxiety at baselinemo nitor cognitive function Gastroesop hageal reflux disease without esophagitis 071400954 K21.9 pantaprozo le 40 mg qdmonitor for sx control outpt with pcp Primary insomnia 3758605 F51.01 with life long hx of sleep walking reportedme latonin 6 mg qhsmonitor for effectpsyc h to see pt for this and anxiety Hearing loss 69223701 H9 0.0 need to shoutconsi keaton need for audiology eval outpt Fall W19.XXXA PT OT eval and treatno apparent injuries for fall on 12/11 or 12/12 or 12/21enc age and remind him about walker usefall precaution smedicatio ns assessed and being weaned Loose stool 728069672 R1 9.5 pt reports one loose stool this amimmodium tab with first loose stool and 2 tabs with each loose stool after no more than 5 tabs per day.push po fluidsmoni tor [id number] [facility] [address] 12/25/2022 14:57:59 12/27/2022 09:50:37 Fall W19.XXXA PT OT eval and treatno apparent injuries for fall on 12/11 or 12/12 or 12/21enc age and remind him about walker usefall precaution smedicatio ns assessed and being weaned Asthenia 82392397 R53.1 PT OT eval and treat as tolmonitor fall risk and incorporat e safety measuresWo rking on lift in his shoe, hopefully will help with safety and ambulation Loose stool 604696427 R1 9.5 monitorimo dium tab with first loose stool and 2 tabs with each loose stool after no more than 5 tabs per day.push po fluidsmoni tor Primary insomnia 2274426 F51.01 with long hx of anxiety, depression , and sleep walkingInc reased difficulty with sleep since ativan reduced.Pl an - d/w Ottoniel -increase melatonin to 10 mg qhsmonitor sleep, fallsif no further falls could consider increase in ativan back to tidRefer to psych provider here FYI outpt. psych provider is Dr. Jocelyn Galaviz in [place] Mixed anxi ety and depressive disorder 932530931 F41.8 Followed by psychiatry as outpt.Depa kote 500 mg q moses.ativan 1 mg po at 8am and 2pm daily for anxiety(be dtime ativan removed due to falls recently)V enlafaxine ER 150 mg dailyMonit or mood, behaviorsR efer to psychAddin g low dose gabapentin 100 mg bid to see if this may help with pain, mood, and behaviors Dislocatio n of hip joint prosthesis 691313969 Z96.649 recurrent dislocatio ns following replacemen t now healedfoll ow ortho recstyleno l sched tid, may wean as toleratedo xycodone 5 mg po q 6 hours prn, plan to weanfu with ortho as needed outptrefer to Dr. Brand, PMR, re: LLE pain management trial gabapentin 100 mg bid in hopes this may also help with weaning off oxycodone and helping with mood and behaviors Minimal co gnitive impairment 789181079 G31.84 unsure of baseline, improved with abxsevere anxiety at baselinemo nitor cognitive function Gastroesop hageal reflux disease without esophagitis 766089283 K21.9 pantaprozo le 40 mg qdmonitor for sx control outpt with pcp Hearing loss 98114452 H9 0.0 need to shoutconsi keaton need for audiology eval outpt [id number] Antonieta Brito NP [address] [address] 12/28/2022 08:31:04 01/01/2023 11:21:36 Primary insomnia 0578652 F51.01 with long hx of anxiety, depression , and sleep walkingInc reased difficulty with sleep since ativan reduced.me latonin to 10 mg qhsmonitor sleep, fallsRefer to psych provider hereFYI outpt. psych provider is Dr. Jocelyn Galaviz in [place] Fall W19.XXXA PT OT eval and treatno apparent injuries for fall on 12/11 or 12/12 or 12/21encour age and remind him about walker usefall precaution smedicatio ns assessed and being weanedwill ask for trash to be put at bedside with hx of slipping on dropped items for safetymoni tor Asthenia 32226413 R53.1 PT OT eval and treat as tolmonitor fall risk and incorporat e safety measuresWo rking on lift in his shoe, hopefully will help with safety and ambulation monitorwal ker Loose stool 991772422 R1 9.5 monitor, improvedim odium tab with first loose stool and 2 tabs with each loose stool after no more than 5 tabs per day.push po fluids Mixed anxi ety and depressive disorder 534704873 F41.8 Followed by psychiatry as outpt.Depa kote 500 mg q moses.ativan 1 mg po at 8am and 2pm daily for anxiety(be dtime ativan removed due to falls recently)V enlafaxine ER 150 mg dailyMonit or mood, behaviorsR efer to psych herelow dose gabapentin 100 mg bid to see if this may help with pain, mood, and behaviors, seems to be helping Dislocatio n of hip joint prosthesis 348874431 Z96.649 recurrent dislocatio ns following replacemen t now healedtyle nol sched tid, may wean as toleratedo xycodone 5 mg po q 6 hours prn, plan to weanfu with ortho as needed outpt, pt reports appt coming uprefer to Dr. Brand, PMR, re: LLE pain management trial gabapentin 100 mg bid in hopes this may also help with weaning off oxycodone and helping with mood and behaviors Minimal co gnitive impairment 406286231 G31.84 unsure of baseline, improved with abxsevere anxiety at baselinemo nitor cognitive function Gastroesop hageal reflux disease without esophagitis 753197938 K21.9 pantaprozo le 40 mg qdmonitor for sx control outpt with pcp Hearing loss 69345014 H9 0.0 need to shoutconsi keaton need for audiology eval outpt Sepsis cau sed by Escherichia coli 850012206 A41.51 left hipdx with sepsis now to complete 6 week course ofcefazoli n 2 gm q 8 until 12/06, then start keflex 1000 mg po tid for 3 weeks per ID today until robiot ic until end of abx treatmentu pdate ID with concerns as neededmoni tor labs as needed Hernia of anterior abdominal wall 709032791 K43.9 ventral hernia in mid upper abd with 3 vicral sutures sticking out of abdomen removed by [facility] specialty surgeon this week and no s/s of infection notedhe does not want to have hernia surgerymon itor for complicati ons Paroxysmal atrial fibrillation 431270956 I48.0 eliquis 5 mg bidmetopro lol 25 mg bidmonitor for rate control Essential hypertension 28069010 I10 bps stablemeto prolol 25 mg bidmonitor bp and need for titration Anemia due to blood loss 185645233 D50.0 stable, required 4 units PRBCs in recent past post opeliquis 5 mg bidmonitor for s/s bleeding Hypoxia 379071642 R09.02 resolvedpt with acute hypoxia with o2 sat of 68% on raSent to er and evaluated without cause and o2 sat resolved0- 4 liters o2 to keep sat >90% should this happen againmonit or o2 sat, s/s of hypoxia, or for altered mental status Abrasion 240674610 T14.8 XXA left forearm abrasion noted healing <1.5 cm with dsg dailymonit or left hand closely for s/s of infectionu nclear if this reopened with fall on 12/11 or separate Headache 83124486 R51.9 headache 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 sometimes better with snacks/bobby dnursing to get BS if complains of headache and give snackovera ll, labs stable with glucose of 58 noted on 12/24will monitor Weight decreased 2306188 01 R63.4 noted a 50 lbs weight losswill need to follow weights weeklyensu re supplement bid and snackswill consider consult if weight loss continues as he is now getting better from surgerymon itor [id number] [facility] Brit[facility] [address] [place] [address] 01/09/2023 16:31:54 01/14/2023 10:21:36 Primary insomnia 8313957 F51.01 with long hx of anxiety, depression , and sleep walking imrovingIn creased difficulty with sleep since ativan reduced.me latonin to 10 mg qhsmonitor sleep, fallsRefer to psych provider hereFYI outpt. psych provider is Dr. Jocelyn Galaviz in [place] Asthenia 83560294 R53.1 PT OT eval and treat with new lift for shoe and difficulty using it on his ownmonitor fall risk and incorporat e safety measuresho pefully will help with safety and ambulation and decrease fallsmonit orwalker Mixed anxi ety and depressive disorder [id number] F41.8 Followed by psychiatry as outpt.Depa kote 500 mg q moses.ativan 1 mg po at 8am and 2pm daily for anxiety(be dtime ativan removed due to falls recently)V enlafaxine ER 150 mg dailyMonit or mood, behaviorsR efer to psych herelow dose gabapentin 100 mg bid to see if this may help with pain, mood, and behaviors, seems to be helping Dislocatio n of hip joint prosthesis [id number] Z96.649 recurrent dislocatio ns following replacemen t now healedtyle nol sched tid, may wean as toleratedo xycodone 5 mg po q 6 hours prn, plan to weanfu with ortho as needed outpt, pt reports appt coming uprefer to Dr. Brand, PMR, re: LLE pain management trial gabapentin 100 mg bid in hopes this may also help with weaning off oxycodone and helping with mood and behaviors Minimal co gnitive impairment [id number] G31.84 unsure of baseline, improved with abxsevere anxiety at baselinemo nitor cognitive function Gastroesop hageal reflux disease without esophagitis 280404435 K21.9 pantaprozo le 40 mg qdmonitor for sx control outpt with pcp Hearing loss 22864822 H9 0.0 need to shoutconsi keaton need for audiology eval outpt Sepsis cau sed by Escherichia coli 362715917 A41.51 left hip resolveddx with sepsis now to complete 6 week course ofcefazoli n 2 gm q 8 until 12/06, then start keflex 1000 mg po tid for 3 weeks per ID today until robiot ic until end of abx treatmentu pdate ID with concerns as neededmoni tor labs as needed Hernia of anterior abdominal wall 926204866 K43.9 resolvedve ntral hernia in mid upper abd with 3 vicral sutures sticking out of abdomen removed by [facility] specialty surgeon this week and no s/s of infection notedhe does not want to have hernia surgerymon itor for complicati ons Paroxysmal atrial fibrillation 344295739 I48.0 eliquis 5 mg bidmetopro lol 25 mg bidmonitor for rate control Essential hypertension 37358378 I10 bps stablemeto prolol 25 mg bidmonitor bp and need for titration Anemia due to blood loss 120163505 D50.0 stable, required 4 units PRBCs in recent past post opeliquis 5 mg bidmonitor for s/s bleeding Headache 08375043 R51.9 resolvedhe adachehe 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 sometimes better with snacks/bobby dnursing to get BS if complains of headache and give snackovera ll, labs stable with glucose of 58 noted on 12/24will monitor Weight decreased 3307585 01 R63.4 noted a 50 lbs weight losswill need to follow weights weeklyensu re supplement bid and snackswill consider consult if weight loss continues as he is now getting better from surgerymon itor [id number] Antonieta Brito, DIONICIO [facility] [address] [address] 01/23/2023 11:59:28 01/28/2023 12:14:25 Asthenia 39924418 R53.1 PT OT eval and treat with new lift for shoe and difficulty using it on his ownmonitor fall risk and incorporat e safety measuresho pefully will help with safety and ambulation and decrease fallsmonit orwalker Dislocatio n of hip joint prosthesis 268078183 Z96.649 recurrent dislocatio ns following replacemen t now healedtyle nol sched tid, may wean as toleratedo xycodone 5 mg po q 6 hours prn, plan to weanfu with ortho as needed outpt, pt reports appt coming uprefer to Dr. Brand, PMR, re: LLE pain management trial gabapentin 100 mg bid in hopes this may also help with weaning off oxycodone and helping with mood and behaviors Minimal co gnitive impairment 642570999 G31.84 unsure of baseline, improved with abxsevere anxiety at baselinemo nitor cognitive function Fall W19.XXXA 01/22 fall at nightPT OT already working with pt with new lift shoesencou rage and remind him about walker use and calling for helpfall precaution smedicatio ns assessed and being weanedtras h to be put at bedside with hx of slipping on dropped items for safetymoni tor [id number] Priya Le MD [address] [address] 02/15/2023 06:50:30 02/20/2023 08:42:22 Minimal cognitive impairment 834251392 G31.84 will monitor and support as needed 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 lorazepam 1 mg bidvenlafa xine ER 150 mg dailygabap entin 100 mg biddivalpr oex ER 500 mg at hswill monitor Chronic pain 34720706 G8 9.29 gabapentin 100 mg bidoxycodo ne 5 mg q6h prnlidocai ne patch to low back dailyAPAP 650 mg tid and q4h prnwill start muscle rub bid to neck and shouldersw ill monitorPT/ OT prn Essential hypertension 84230495 I10 metoprolol 25 mg bidwill monitor Paroxysmal atrial fibrillation 726960024 I48.0 metoprolol 25 mg bid for rate controlapi xaban 5 mg bidwill monitor Gastroesop hageal reflux disease without esophagitis 436382441 K21.9 pantoprazo le 40 mg dailywill monitor [id number] Antonieta Brito NP [address] [address] 02/22/2023 08:26:38 02/26/2023 12:30:16 Hernia of anterior abdominal wall 120078043 K43.9 ventral hernia in mid upper abd with 3 vicral sutures sticking out of abdomen removed by [facility] specialty surgeon in e does not want to have hernia surgerymon itor for complicati ons Cellulitis 634436538 L03 .90 old hernia abd incision now open and infected with likelihood of old sutures from prior ventral henia [id number] cbc and bmp on ex 750 mg po tid x 14 daysprobio tic 1 tab po bidneeds fu with surgeon for possible erosion [facility], pat dry, and cover with bodered dressing dailymonit or Chronic back pain 186625 002 G89.29 oxycodone 5 mg po q 6 hours prn painbaclof en 10 mg q 8 h prn [id number] Antonieta Brito NP [address] [address] 02/25/2023 10:26:59 03/05/2023 12:59:25 Hernia of anterior abdominal wall 646777551 K43.9 ventral hernia in mid upper abd with 3 vicral sutures sticking out of abdomen removed by [facility] specialty surgeon in e does not want to have hernia surgerymon itor for complicati ons Cellulitis 454166505 L03 .90 old hernia abd incision now open and infected with likelihood of old sutures from prior ventral henia [id number]/ 30/23 cont plan below02/22artcb c and bmp on ex 750 mg po tid x 14 daysprobio tic 1 tab po bidneeds fu with surgeon for possible erosion of [facility] ns, pat dry, and cover with bodered dressing dailymonit or Chronic back pain 574123 002 G89.29 oxycodone 5 mg po q 6 hours prn painbaclof en 10 mg q 8 h prn10/30 gabapentin increase from 100mg to 200 mg po bid Minimal co gnitive impairment 635009175 G31.84 will monitor and support as needed Mixed anxi ety and depressive disorder 638379794 F41.8 lorazepam 1 mg bidvenlafa xine ER 150 mg dailygabap entin 100 mg biddivalpr oex ER 500 mg at hswill monitor Chronic pain 95570966 G8 9.29 10 increase gabapentin to 200 mg bidoxycodo ne 5 mg q6h prn(only receiving 1-2 times per day)lidoca ine patch to low back dailyAPAP 650 mg tid and q4h prnmuscle rub bid to neck and shouldersw ill monitorPT/ OT prn Dislocatio n of hip joint prosthesis 932716221 Z96.649 recurrent dislocatio ns following replacemen t now healedtyle nol sched tid, may wean as toleratedo xycodone 5 mg po q 6 hours prn, plan to weanfu with ortho as needed outpt, pt reports appt coming up02/[address] Brand, PMR, re: LLE pain management 02/25 increase gabapentin 100 mg bid to 200 mg po bidfu with ortho Dr. Cheema for fu of hip pain [id number] Antonieta Brito NP [facility] [address] [address] 03/06/2023 08:19:16 03/08/2023 15:32:16 Hemorrhoids 73454868 K64.9 annusol 2.5 % cream bid prn topically external rectallyhe mmorhoidsm onitor for excessive bleeding/p ain [id number] ALEXIS DOLAN NP [facility] [address] [address] 03/12/2023 13:06:36 03/13/2023 15:59:23 Dislocation of hip joint prosthesis 268517025 Z96.649 recurrent dislocatio ns following replacemen t now healedresi dual leg length discrepanc y - lift made for shoe, working with rehab, making progress with ambulation .Still on oxycodone 5 mg po q 6 hours prn, need to start to wean offRemains on gabapentin 200 mg bid taper off oxycodone first before tapering off thisfu with ortho as needed outptrefer red to Dr. Brand, PMR, re: LLE pain management Anemia due to blood loss 808594171 D50.0 Required 4 units PRBCs post op.Hgb, improving - last check 9.6 in Dec.Monit or CBC, check x 1 in amRemains on AC, higher risk of bleed Chronic back pain 414469 002 G89.29 APAP prnlidoder m patch dailygabap entin 200 mg bidF/U with Dr. Lara prn Essential hypertension 50362167 I10 VSS, BP tends to run on the higher side of nl.Current ly on Metoprolol 25 mg bidRestart norvasc 2.5 mg qd (stopped a while ago due to low BP)Monitor VS, adjust meds prn Fall W19.XXXA Recurrent fallsCurre ntly working with rehab, new lift for left shoe to manage leg length discrepanc yencourage and remind him about walker usefall precaution s Gastroesop hageal reflux disease without esophagitis 864321985 K21.9 pantaprozo le 40 mg qdsx. controlled , consider dose reduction in future History of pulmonary embolus 869942459 Z86.711 Continue eliquis 2.5 mg bid Mixed anxi ety and depressive disorder 716809695 F41.8 Followed by psychiatry as outpt.Depa kote 500 mg q moses.ativan 1 mg po at 8am and 2pm daily for anxietymel atonin 10 mg q HSVenlafax ine ER 150 mg dailygabap entin 200 mg bidMonitor mood, behaviors Paroxysmal atrial fibrillation 872097966 I48.0 ContEliqui s for AC 5 mg bid (also hx of PE)Metopro lol 25 mg bid for rate controlMon itor VS, labs, adjust meds prn [id number] Antonieta Brito NP [facility] [address] 04/01/2023 08:37:47 04/10/2023 10:33:00 Respiratory tract congestion and cough 895694690 R05.8 pt with viral symptoms of congestion , cough and rhinorhea noted over the weekend, sore throat resolvedco ntsalt water gargles prncepacol lozenges or spray prn12/4sta rtcovid swab asaprespir atory panel (sample to go to lab)mucine x dm 600 mg/30 mg po q 12 hours x 7 daysrobitu ssin 10 ml po q 6 hours prn cough x 14 daysmonito r [id number] Antonieta Brito NP [facility] [address] 04/04/2023 11:46:11 04/10/2023 11:31:52 Respiratory tract congestion and cough 968333449 R05.8 pt with viral symptoms of congestion , cough and rhinorhea noted over the weekend, sore throat resolvedco ntsalt water gargles prncepacol lozenges or spray prn12/4sta rtcovid swab asaprespir atory panel (sample to go to lab)mucine x dm 600 mg/30 mg po q 12 hours x 7 daysrobitu ssin 10 ml po q 6 hours prn cough x 14 days12/7cb c with diff, bmp on 04/08resp panel not back, covid negativead d flonase nasal spray 1 spray each nare bid x 2 weeksconsi keaton chest xray if not improving or abxmonitor Chronic pain 36052145 G8 9.29 02/25 increase gabapentin to 200 mg bidoxycodo ne 5 mg q6h prn(only receiving 1-2 times per day)lidoca ine patch to low back dailyAPAP 650 mg tid and q4h prnmuscle rub bid to neck and shouldersw ill monitorPT/ OT prn Mixed anxi ety and depressive disorder 193517289 F41.8 lorazepam 1 mg bidvenlafa xine ER 150 mg dailygabap entin 100 mg biddivalpr oex ER 500 mg at hswill monitor [id number] Antonieta Brito NP [facility] [address] 04/17/2023 14:06:24 04/18/2023 19:43:04 Loose stool 084126649 R19.5 monitor, improvedco ntimodium tab with first loose stool and 2 tabs with each loose stool after no more than 5 tabs per day20st art metamucil 1 tbsp or packet daily.push po fluids [id number] Antonieta Brito NP [facility] [address] 05/09/2023 19:04:15 05/14/2023 15:22:40 Dysuria 38949060 R30.0 had urinalysis done and negative for infectionU nlikely due to infection or BPHstates this sensation has happened before with resolution on its ownplan:he was offered pyridium and refused todaypush fluids and monitor for now [id number] Antonieta Brito NP [facility] [address] 05/11/2023 17:02:33 05/14/2023 16:20:09 Dysuria 32960406 R30.0 had urinalysis done and negative for infectionU nlikely due to infection or BPHstates this sensation has happened before with resolution on its ownplan:he was offered pyridium and refused on 4 start flomax 0.4 mg po qhsmonitor push fluids and monitor for now [id number] Antonieta Brito NP [facility] [address] [address] 05/15/2023 12:22:51 05/17/2023 15:13:55 Dysuria 28450553 R30.0 had urinalysis done and negative for infectionU nlikely due to infection or BPHstates this sensation has happened before with resolution on its own in the pastplan: started on flomax 0.4 mg po daily with good effectmoni torpush fluids and monitor for now Mixed anxi ety and depressive disorder 321481474 F41.8 lorazepam 1 mg bid05/15/23 add 1 mg po q 24 hours prn anxiety for 2 weeks and reevalvenl afaxine ER 150 mg dailygabap entin 100 mg biddivalpr oex ER 500 mg at [facility] monitor [id number] Antonieta Brito NP [facility] [address] [address] 05/22/2023 10:36:43 05/24/2023 11:44:41 Loose stool 787264930 R19.5 monitor, improvedco ntimodium tab with first loose stool and 2 tabs with each loose stool after no more than 5 tabs per day04/17 start metamucil 1 tbsp or packet daily.push po fluids Constipation 72382254 K5 9.00 pt states he is having constipati on for 3 daysnsg reports he is refusing metamucil todaycontm etamucil dailymiral ax 17 grams po daily prn, will get dose this ammonitor [id number] Smitha Sparks MD [address] [address] 05/24/2023 18:15:41 05/28/2023 15:26:20 Dislocation of hip joint prosthesis 564956056 T84.021D No further dislocatio ns since last surgery, but with residual leg length discrepanc y, has lift made for shoe.Doing well with mobility, independen t at this time, ready for living alone again.Oxyc odone 5 mg q 6 hrs prn still on orders, but only taking sporadical ly.Continu e gabapentin 200 mg BID.Contin ue PT/OT as needed. Fall R29.6 Continue fall precaution s.Monitor for safety. Anemia due to blood loss 621246034 D50.0 Hgb stable.Mon itor labs prn Chronic back pain 321250 002 G89.29 Continue APAP 650 mg TID and 650 mg q 4 hrs prn (NTE 3000 mg/d), lidoderm patch qd, gabapentin 200 mg BID and oxycodone 5 mg q 6 hrs prn.F/U with Dr. Lara prn Essential hypertension 23538655 I10 Good control since amlodipine restarted in 3Con tinue metoprolol 25 mg BID and amlodipine 2.5 mg qd.Monitor BP and labs Paroxysmal atrial fibrillation 786520537 I48.0 Rate in good control on meds as above.Cont inue eliquis 2.5 mg BID for AC.Monitor HR and bleeding risk. Gastroesop hageal reflux disease without esophagitis 773331193 K21.9 No current sxs.Contin ue pantoprazo le 40 mg qdMonitor sxs. History of pulmonary embolus 051113193 Z86.711 Continue eliquis 2.5 mg BIDMonitor resp status Mixed anxi ety and depressive disorder 532684109 F41.8 Mood good tonight, despite frustratio ns..Contin ue depakote 500 mg qPM, lorazepam 1 mg q 8am and 2pm and qd prn, melatonin 10 mg qhs, venlafaxin e ER 150 mg qd and gabapentin 200 mg BID.Monito r mood and behaviorsP sych consult prn [id number] Antonieta Brito NP [facility] [address] [address] 06/14/2023 10:52:59 06/17/2023 17:21:14 Hernia of anterior abdominal wall 129449074 K43.9 ventral hernia in mid upper abd with 3 vicral sutures sticking out of abdomen removed by [facility] specialty surgeon in ow area reopeninga pply bacitracin and foam dressing dailyhe reports he wants to have hernia surgery now and consult order given [facility] specialty surgeonsmo nitor for complicati onspain managed with chronic pain meds Minimal co gnitive impairment 960949131 G31.84 will monitor and support as needed [id number] Antonieta Brito NP [facility] [address] [address] 06/26/2023 15:04:18 07/02/2023 13:16:40 Minimal cognitive impairment 960823804 G31.84 will monitor and support as needed Dislocatio n of hip joint prosthesis 725714974 T84.021D recurrent dislocatio ns following replacemen t now healedtyle nol sched tid, may wean as toleratedo xycodone 5 mg po q 6 hours prn, plan to weanfu with ortho as needed outpt, pt reports appt coming upreferral : Dr. Brand, PMR, re: LLE pain management gabapentin 100 mg bid to 200 mg po bidrecieve d 80 mg kenalog to left hip with good effectsfu with ortho Dr. Cheema for fu of hip pain if needed, he wishes to follow with dr. brand here. Chronic back pain 599439 002 G89.29 oxycodone 5 mg po q 6 hours prn painbaclof en 10 mg q 8 h prn10/30 gabapentin increase from 100mg to 200 mg po bid [id number] Antonieta Brito NP [facility] [address] [address] 07/10/2023 16:00:23 07/15/2023 10:10:07 Minimal cognitive impairment 165548226 G31.84 will monitor and support as needed Fall 6619384 R29.6 no fall recently, but will address fall plan with recurrent falls in historynew lift shoes seem to have a notable difference and decrease in fallsencou rage and remind him about walker use and calling for helpfall precaution richard when up with supervisio nmedicatio ns assessedtr funmilayo to be put at bedside with hx of slipping on dropped items for safetymoni tor Bilateral red eyes [id number] 3754055 H57.89 likely related to the New drops he started 2 days ago drops thrown out today (bottle read rhopressa) for glaucoma- likely adverse reaction of ocular erythema (per rophressa site eye redness is a common adverse reaction) 07/09 startflush eyes todaymoist cool compresses tid x 5 days OUartifici al tears tid x 5 days OUocusoft lid scrub tid x 5 days OU fu with eye doctor prn Monitor closely and consider if erythromcy in or other therapies are needed [id number] AELXIS DOLAN NP [facility] [address] [address] 07/18/2023 11:07:36 07/23/2023 11:16:31 Dislocation of hip joint prosthesis 978120052 T84.021D No further dislocatio ns since last surgery, but with residual leg length discrepanc y, has lift made for shoe.Doing well with mobility, independen t at this timeOxycod one 5 mg q 6 hrs - change to bid prn and continue to reduce dose/freq. with goal to taper off completely .Has not been using prn APAP - request nurses give this first for painContin ue gabapentin 200 mg BID.Referr ed to PMR - given steroid injection with improvemen t in pain.Refer back to Dr. Cheema prn. Fall R29.6 Continue fall precaution s.Monitor for safety. Anemia due to blood loss 305984122 D50.0 Hgb stable.Mon itor labs prn Chronic back pain 888336 002 G89.29 Continue APAP 650 mg TID and 650 mg q 4 hrs prn (NTE 3000 mg/d), lidoderm patch qd, gabapentin 200 mg BID and oxycodone 5 mg q 6 hrs prn -> changing to bid prn with goal to wean offF/U with Dr. Lara prn Essential hypertension 32836581 I10 Good control since amlodipine restarted in 3Con tinue metoprolol 25 mg BID and amlodipine 2.5 mg qd.Monitor BP and labs Paroxysmal atrial fibrillation 459389532 I48.0 Rate in good control on meds as above.Cont inue eliquis 2.5 mg BID for AC.Monitor HR and bleeding risk. Gastroesop hageal reflux disease without esophagitis 026535614 K21.9 No current sxs.Contin ue pantoprazo le 40 mg qdMonitor sxs. History of pulmonary embolus 184573695 Z86.711 Continue eliquis 2.5 mg BIDMonitor resp status Mixed anxi ety and depressive disorder 524423862 F41.8 Continue depakote 500 mg qPM, lorazepam 1 mg q 8am and 2pm and qd prn, melatonin 10 mg qhs, venlafaxin e ER 150 mg qd and gabapentin 200 mg BID.Extra ativan dose added daily prn x 2 weeks only due to request of pt. as he reports he is going thru a stressful time right now.Monito r mood and behaviorsP sych consult prn Cough 41794559 R05.9 New, x 1 day.Other residents with the fluPlan -viral panel today, treat as indicated. flonase x 1 month to help with runny, stuffy nose.robit ussin 10 mg q 4 hr prn x 30 daysCBC, BMP in amMonitor VS, sx. closelyCon tinue supportive care - APAP, fluids, restTo ER if acute. [id number] Smitha Sparks MD [address] [address] 07/22/2023 12:27:19 07/25/2023 15:56:03 Chronic pain 97523068 G89.29 Agreed to change to oxycodone 5 mg TID prn and he can discuss further with [employer] tomorrow. Discussed this and housing issues for 20 [id number] Antonieta Brito NP [address] [address] 07/23/2023 15:16:18 07/25/2023 16:11:08 Chronic pain 37334005 G89.29 contoxycod one 5 mg TID prn (recently reduced on 3/21)goal is to wean off pain meds. Hip is well healed with some pain still present)ph ysiatry follows with cortisone injections to hipAPAP 650 mg TID and 650 mg q 4 hrs prn (NTE 3000 mg/d)lidod erm patch qdgabapent in 200 mg BID F/U with Dr. Lara prn Mixed anxi ety and depressive disorder 861128439 F41.8 lorazepam 1 mg bid and 1 mg po q 24 hours prn anxiety for 2 weeks and reeval on 08/05 due to increased anxiety finding an apartmentv enlafaxine ER 150 mg dailygabap entin 100 mg biddivalpr oex ER 500 mg at [facility] monitor Influenza caused by Influenza A virus 781564679 J09.X2 tested positive for flu a on 07/17contta miflu 75 mg po bid x 5 days total finish on 07/24labs stable 07/18cepaco l sore throat spray or lozenge 1 tab/spray q 6 hours prn sore throatrobi tussin 10 ml podrink > 2liters fluid/24 hours x 5 daysflonas e 1 spray each nostril bidisolati on per facilitymo nitor [id number] Antonieta Brito NP [address] [address] 08/02/2023 09:07:10 08/05/2023 12:51:22 Chronic pain 76447090 G89.29 contoxycod one 5 mg TID prn (recently reduced on 07/17)goal is to wean off pain meds. Hip is well healed with some pain still present with likely arthritis) physiatry follows with cortisone injections to hipAPAP 650 mg TID and 650 mg q 4 hrs prn (NTE 3000 mg/d)lidod erm patch qdgabapent in 200 mg BID4/5 add diclofenac gel 1 % topically tidF/U with Dr. Lara prn Mixed anxi ety and depressive disorder 426739954 F41.8 contloraze jeff 1 mg bid and 1 mg po q 24 hours prn anxiety for 2 weeks and reeval on 08/05 due to increased anxiety finding an apartmentv enlafaxine ER 150 mg dailygabap entin 100 mg biddivalpr oex ER 500 mg at [facility] monitor Influenza caused by Influenza A virus 182374670 J09.X2 resolvedte sted positive for flu a on 07/17tamifl u 75 mg po bid x 5 days total finished on 07/24labs stable 07/18cont if neededcepa col sore throat spray or lozenge 1 tab/spray q 6 hours prn sore throatrobi tussin 10 ml podrink > 2liters fluid/24 hours x 5 daysflonas e 1 spray each nostril bidmonitor [id number] Antonieta Brito, DIONICIO [address] [address] 08/26/2023 11:59:39 08/28/2023 12:57:52 Chronic pain 31195353 G89.29 with tolerable relief,con toxycodone 5 mg TID prn (recently reduced on 07/17)goal is to wean off pain meds. Hip is well healed with some pain still present with likely arthritis) uses regularlyp hysiatry follows with cortisone injections to hip with Dr. Sanches P 650 mg TID and 650 mg q 4 hrs prn (NTE 3000 mg/d)lidod erm patch qdgabapent in 200 mg BIDdiclofe nac gel 1 % topically tidmuscle rub cream topically prnF/U with Dr. Lara prn outpt Mixed anxi ety and depressive disorder 750396389 F41.8 contloraze jeff 1 mg bidvenlafa xine ER 150 mg dailygabap entin 200 mg biddivalpr oex ER 500 mg at hswill monitor Dislocatio n of hip joint prosthesis 244255955 T84.021D No further dislocatio ns since last surgery, but with residual leg length discrepanc y, has lift made for shoe.Doing well with mobility, independen t at this timeOxycod one 5 mg tid prn, titrated with tolerable pain-see aboveHas not been using prn APAP - request nurses give this first for painContin ue gabapentin 200 mg BID.Referr ed to PMR - given steroid injection with improvemen t in pain.Refer back to Dr. Cheema prn. Fall R29.6 no falls recentlyus es orthodic shoe with improvemen tContinue fall precaution s.Monitor for safety. Essential hypertension 72614759 I10 Good controlCon tinuemetop rolol 25 mg BIDamlodip ine 2.5 mg qd.Monitor BP and labs Paroxysmal atrial fibrillation 523400587 I48.0 Rate in good control on meds as above.Cont inueeliqui s 2.5 mg BID for AC.Monitor HR and bleeding risk. Gastroesop hageal reflux disease without esophagitis 406991975 K21.9 No current sxs.Contin uepantopra zole 40 mg qdMonitor sxs. History of pulmonary embolus 140707643 Z86.711 Continueel iquis 2.5 mg BIDMonitor resp status Anemia due to blood loss 802210397 D50.0 Hgb stable.Mon itor labs prn Hernia of anterior abdominal wall 396880537 K43.9 ventral hernia in mid upper abd with 3 vicral sutures sticking out of abdomen removed by [facility] [facility] specialty surgeon in [place] now managed with:bacit racin and foam dressing daily prnhe reports he wants to have hernia surgery now and consult [facility] nitor for complicati onspain managed with chronic pain meds Minimal co gnitive impairment [id number] G31.84 will monitor and support as needed [id number] Antonieta Brito NP [address] [address] 09/12/2023 11:50:07 09/16/2023 11:43:42 Minimal cognitive impairment 399046164 G31.84 will monitor and support as needed Seasonal allergy 7798229 04 J30.2 on 09/10 started on cetirizine po daily09/11 start flonase 1 spray each nare bidmonitor [id number] ALEXIS DOLAN NP [address] [address] 09/19/2023 10:58:11 10/01/2023 13:32:24 Hematoma of skin 190558928 T14.8XXA See HPIlarge area of bruising left lateral hip noted today by staff, also ? to appear more swollen.Pe r pt., asymptomat ic, not bothersome or painful.No trauma, falls, or injury recalled by pt. or staffUncle ar etiology, is on AC so increased risk of bleeding at baseline. Plan -Hold eliquis x 2 daysMonito r q shift - will request nsg. 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 [id number] [facility]eta [facility] NP [facility] [address] [place] [address] 09/25/2023 16:39:49 10/01/2023 14:55:08 Chronic pain 60880313 G89.29 with tolerable reliefhad cortisone shot recently from Dr. Brand to hipcontoxy codone 5 mg TID prn for hip paingoal is to wean off pain meds. Hip is well healed with some pain still present with likely arthritis) uses regularlyA PAP 650 mg TID and 650 mg q 4 hrs prn (NTE 3000 mg/d)lidod erm patch qdgabapent in 200 mg BIDdiclofe nac gel 1 % topically tidmuscle rub cream topically prnF/U with Dr. Lara prn outp and pcp Mixed anxi ety and depressive disorder 094323069 F41.8 contloraze jeff 1 mg bid and q 24 hour prn increased anxietyven lafaxine ER 150 mg dailygabap entin 200 mg biddivalpr oex ER 500 mg at hswill monitor Dislocatio n of hip joint prosthesis 876174564 T84.021D No further dislocatio ns since last surgery, but with residual leg length discrepanc y, has lift made for shoe.Doing well with mobility, independen t at this timeOxycod one 5 mg tid prn severe painrefuse s prn APAPgabape ntin 200 mg BID.given steroid injection with improvemen t in pain recentlyRe sera back to Dr. Cheema prn. outpt Fall R29.6 no falls recentlyus es orthodic shoe with improvemen tContinue fall precaution s outptMonit or for safety outpt Essential hypertension 12364093 I10 Good control hereContin uemetoprol ol 25 mg BIDamlodip ine 2.5 mg qd.Monitor BP and labs outpt with pcp Paroxysmal atrial fibrillation 651871392 I48.0 Rate in good control on meds as above.Cont inueeliqui s 2.5 mg BID for AC.Monitor HR and bleeding risk outpt with pcp Gastroesop hageal reflux disease without esophagitis 107969756 K21.9 No current sxs.Contin uepantopra zole 40 mg qdMonitor sxs. 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 Lara prn History of malignant neoplasm of prostate 939664917 Z85.46 No longer on alfuzosinF /U with uro oupt [id number] ALEXIS DOLAN NP [address] [address] 11/19/2023 14:38:37 11/20/2023 20:42:29 Chronic pain 27945807 G89.29 with tolerable reliefhas had cortisone shots in recent past from Dr. Brand to hip last time he was here.lety nue:oxycod one 5 mg TID prn for hip painAPAP prn (NTE 3000 mg/d)lidod erm patch qdgabapent in 200 mg BIDdiclofe nac gel 1 % topically tidmuscle rub cream topically prnF/U with Dr. 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 Does not appear he was on this med when discharged from here in August; will not continue.P ga -lorazepam 1 mg bid and q 24 hour prn (re-eval prn dose in 14 d)melatoni n 10 mg q HSvenlafax ine ER 187.5 mg dailygabap entin 200 mg biddivalpr oex ER 500 mg at hsmonitor mood and behaviorsP sych eval prn Dislocatio n of hip joint prosthesis 158891126 T84.021D No further dislocatio ns since last surgery, but with residual leg length discrepanc y, has lift made for shoe.Still with some gait instabilit y, uses walker for ambulation .Continue: diclofenac gel tid to hipOxycodo ne 5 mg tid prn severe painrefuse s prn APAPgabape ntin 200 mg BID. Refer back to Dr. Cheema prn Essential hypertension 75459143 I10 Good control hereContin uemetoprol ol 25 mg BIDamlodip ine 2.5 mg qd.Monitor BP and labs Paroxysmal atrial fibrillation 103883757 I48.0 Rate in good control on meds as above.Cont inueeliqui s 5 mg BID for AC.metopro lol 25 mg bid for rate controlMon itor HR and bleeding risk Gastroesop hageal reflux disease without esophagitis 013643796 K21.9 No current sxs.Contin uepantopra zole 40 mg qdMonitor sxs. History of pulmonary embolus 899285466 Z86.711 Continueel iquis 5 mg BIDmonitor outpt with pcp Anemia due to blood loss 647414550 D50.0 Hgb stable.Mon itor labs prn Minimal co gnitive impairment 462610636 G31.84 will monitor and support as needed History of malignant neoplasm of prostate 498185642 Z85.46 No longer on alfuzosinO n gemtesa 75 mg qd and flomax 0.4 mg q hs for bladder control.F/ U with as needed Asthenia 03154867 R53.1 General weakness with fall at home.PT OT eval and treat, goal is to return home.monit or fall risk and incorporat e safety measures Gout 02353393 M10.09 Flare up in ER, R great toe, tx. with prednisone and colchicine with improvemen t.Monitor Pulmonary embolism 99940 003 I26.99 Hx of.On Eliquis at baseline for Afib.Monit or for recurrent sxs. Allergic rhinitis 624223 04 J30.9 Continue zyrtec 10 mg qd, flonase bidMonitor sx. [id number] Antonieta Brito NP [address] [address] 11/25/2023 16:37:01 11/27/2023 12:59:01 Asthenia 48776707 R53.1 worked with therapy here and getting strongerwi ll fu with pcp outpt and increased servicesmo nitor fall risk and incorporat e safety measures Mixed anxi ety and depressive disorder 224831993 F41.8 With agitation in ER requiring prn medication s, however controlled since here.ativa n 1 mg bid and daily prn restarted as well as zyprexa 2.5 mg bid and qd prn since transfer to [facility] ontlorazep am 1 mg bid and q 24 hour prnmelaton in 10 mg q HSvenlafax ine ER 187.5 mg dailygabap entin 200 mg biddivalpr oex ER 500 mg at hsmonitor mood and behaviorsP sych eval prn outpt and fu with pcp outpt Gout 36602522 M10.09 resolvedFl are up in ER, R great toe, tx. with prednisone and colchicine with improvemen t.Monitor with pcp outpt Chronic pain 13303381 G8 9.29 with tolerable reliefhas had cortisone shots in recent past from Dr. Brand to hip last time he was here.lety nue:oxycod one 5 mg TID prn for hip pain- wean at home with remainder of pills here, no scriptAPAP prn (NTE 3000 mg/d)lidod erm patch qdgabapent in 200 mg BIDdiclofe nac gel 1 % topically tidmuscle rub cream topically prnF/U with Dr. Lara prn outpt for pain management and pcp Dislocatio n of hip joint prosthesis 803930361 T84.021D No further dislocatio ns since last surgery, but with residual leg length discrepanc y, has lift made for shoe.Still with some gait instabilit y, uses walker for ambulation . Continue:d iclofenac gel tid to hipOxycodo ne 5 mg tid prn severe pain(may go home with approx 20 pills)refu ses prn APAPgabape ntin 200 mg BID.Refer back to Dr. Cheema prn and fu with pcp outpt Essential hypertension 12483742 I10 Good control hereContin uemetoprol ol 25 mg BIDamlodip ine 2.5 mg qd.Monitor outpt with pcp Paroxysmal atrial fibrillation 030664553 I48.0 Rate in good control on meds as above.Cont inueeliqui s 5 mg BID for AC.metopro lol 25 mg bid for rate controlMon itor HR and bleeding risk outpt with pcp Gastroesop hageal reflux disease without esophagitis 017328806 K21.9 No current sxs.Contin uepantopra zole 40 mg qdMonitor sxs. outpt with pcp History of pulmonary embolus 746884849 Z86.711 Continueel iquis 5 mg BIDmonitor with pcp outpt Anemia due to blood loss 725762573 D50.0 Hgb stable.Mon itor labs prn outpt Minimal co gnitive impairment 036584802 G31.84 will monitor and support as needed outpt with pcp History of malignant neoplasm of prostate 605413010 Z85.46 No longer on alfuzosinO n gemtesa 75 mg qd and flomax 0.4 mg q hs for bladder control.F/ U with as needed outpt Pulmonary embolism 60174 003 I26.99 Hx of.On Eliquis at baseline for Afib.Monit or for recurrent sxs outpt with pcp Allergic rhinitis 324975 04 J30.9 Continue zyrtec 10 mg qd, flonase bidMonitor sx. outpt with pcp [id number] [facility] [address] [place] [address] 12/28/2023 13:10:11 01/02/2024 15:08:59 Dislocation of hip joint prosthesis 112341204 T84.021D chronic pain sp surgery last year-oxyco done 5 mg q8h prnwill order 1 week supply of oxycodone to get through long weekendre- eval oxycodone use next week-tylen ol 650 mg q4h prn-gabape ntin 100 mg bid-pain clinic f/up next wedsign consult for physiatry Essential hypertension 50196030 I10 carrying dx-metopro lol 12.5 mg bid-holdin g parameters -monitor BP qshift x 3 days, then daily-admi ssion CMP Fall R29.6 in wc-PT OT-fall precaution s Gastroesop hageal reflux disease without esophagitis 327946422 K21.9 -pantopraz ole 40 mg daily-steven tor sx Chronic back pain 296922 002 G89.29 -see pain regimen above Asthenia 43379465 R53.1 deconditio samuel-PT OT Gout 75962917 M10.09 carrying dx-not on meds History of pulmonary embolus 730862424 Z86.711 -eliquis 5 mg bid Insomnia 856619427 G47.0 9 carrying dx-melaton in 10 mg HS Mixed anxi ety and depressive disorder 815643508 F41.8 carrying dx-encoura ge getting oob for meals-psyc h prn-monito r mood and effect-eff exor 150 mg daily and 37.5 mg daily-ativ an 1 mg bid for anxiety Paroxysmal atrial fibrillation 300351117 I48.0 carrying dx, rate controlled -metoprolo l 12.5 mg bid-eliqui s 5 mg bid-monito r hr and blood loss Anemia due to blood loss 965648687 D50.0 stable-adm ission CBC Seasonal allergy 0041497 04 J30.2 carrying dx-zyrtec 10 mg prn-flonas e bid Overactive urinary bladder 247279160 N32.81 -flomax 0.4 mg daily-gemt gordon 75 mg daily-steven tor urine output and ss [id number] Smitha Sparks MD [address] [address] 12/31/2023 20:02:53 01/06/2024 10:34:44 Dislocation of hip joint prosthesis 044678056 T84.021D Chronic pain.Is followed by Dr. Lara for steroid shots and Dr. Sanchez for meds.Lety nue gabapentin 100 mg BID, oxycodone 5 mg q 8 hrs prn and APAP 650 mg q 4 hrs prn.Has F/U with Dr. Lara on 01/01, plans to d/c home on 01/02. Essential hypertension 33808643 I10 Low at times, but mostly in good control.Co ntinue metoprolol 12.5 mg BID, hold for SBP<120 or pulse<60Mo nitor BP and labs Fall 0701037 R29.6 With limitation s due to pain.Needs PT/OT for strengthen ing, balance, gait training, safety and function.C ontinue fall precaution s.Monitor for safety. Gastroesop hageal reflux disease without esophagitis 195083423 K21.9 Continue pantoprazo le 40 mg qdMonitor GI sxs Chronic back pain 744116 002 G89.29 As above. Asthenia 08778522 R53.1 As above. Gout 40958466 M10.09 No recent flares.Tx prn History of pulmonary embolus 339364821 Z86.711 Continue Eliquis 5 mg BIDMonitor for sxs. Insomnia 675343425 G47.0 9 Continue melatonin 10 mg qhsMonitor sleep patterns Mixed anxi ety and depressive disorder 144940017 F41.8 Mood good today.Cont inue effexor 187.5 mg qd and lorazepam 1 mg BID.Monito r mood.Psych consult prn. Paroxysmal atrial fibrillation 622798223 I48.0 Rate in good control on meds as above.Cont inue eliquis 5 mg BID for AC.Monitor HR and bleeding risk. Anemia due to blood loss 535678334 D50.0 Stable at baseline.M onitor. Seasonal allergy 1415331 04 J30.2 Continue cetirizine 10 mg qd.Monitor Overactive urinary bladder 947874053 N32.81 Continue tamsulosin 0.4 mg qd and gemtesa 75 mg qdMonitor urinary function. [id number] Antonieta Brito NP [address] [address] 01/02/2024 08:12:10 01/06/2024 11:58:52 Dislocation of hip joint prosthesis 422430093 T84.021D chronic pain sp surgery last yearcontox ycodone 5 mg q8h prn, will send home with remainder of oxy and then dc (approx 14 tablets) no more oxycodone will be written for- was not on oxycodone at home priortylen ol 650 mg q4h prngabapen tin 100 mg bidsigned consult for physiatryh e will fu with pain management for medication and dosing in futurehe will get a cortisone injection on 01/01 today and this should help with painoutpt Essential hypertension 45978249 I10 carrying dxcontmeto prolol 12.5 mg bidholding parameters monitor outpt with pcp outpt Fall 0772222 R29.6 hx of multiple falls at homePT OT outpt if neededfall precaution sfu with vna and services at home outpt Gastroesop hageal reflux disease without esophagitis 828239527 K21.9 pantoprazo le 40 mg dailymonit or sxfu with pcp outpt Chronic back pain 315695 002 G89.29 see pain regimen above Asthenia 10438472 R53.1 improving and likely at baseline with shoe lifts Gout 74451162 M10.09 carrying dxnot on meds History of pulmonary embolus 514005142 Z86.711 eliquis 5 mg bidfu with pcp outpt for need Insomnia 386027720 G47.0 9 carrying dxmelatoni n 10 mg HSfu with pcp outpt Mixed anxi ety and depressive disorder 272518380 F41.8 carrying dxencourag e getting oob for mealspsych prnmonitor mood and effecteffe xor 150 mg daily and 37.5 mg dailyativa n 1 mg bid prn for anxietyfu with pcp outpt Paroxysmal atrial fibrillation 576715945 I48.0 carrying dx, rate controlled metoprolol 12.5 mg bideliquis 5 mg bidmonitor with pcp outpt Anemia due to blood loss 729265549 D50.0 stable Seasonal allergy 5913470 04 J30.2 carrying dxzyrtec 10 mg prnflonase bidfu with pcp outpt Overactive urinary bladder 952384853 N32.81 flomax 0.4 mg dailygemte sa 75 mg dailyfu with pcp outpt [id number] Antonieta Brito NP [address] [place] [address] 01/08/2024 08:15:15 01/09/2024 13:36:05 Dislocation of hip joint prosthesis 136349389 T84.021D chronic pain sp surgery last year, (has not been on oxycodone at home-pcp will not write for it)oxycodo ne 5 mg q8h prnwill order for breakthrou gh pain while herere-herrera l oxycodone use next weektyleno l 650 mg q4h prngabapen tin 100 mg biddiclofe nac 1 % gel 4grams tid to hip (ok to use with nsaid allergy-to lerates)pa in psysiatry f/u Essential hypertension 87591573 I10 carrying dxmetoprol ol 12.5 mg bidholding parameters monitor BP qshift x 3 days, then dailyadmis moreno CMP Fall R29.6 uses lift in shoe and w/c with recurrent fallsawait ing bed rails for bed at home? if rails can be offered here? if he needs more resources and help at homePT OT eval and treatfall precaution ssupportiv e care Gastroesop hageal reflux disease without esophagitis 167394112 K21.9 pantoprazo le 40 mg dailymonit or sx Chronic back pain 382364 002 G89.29 see pain regimen above Asthenia 19281059 R53.1 deconditio nedPT OT eval and treatcont with lift in shoe Gout 65914321 M10.09 carrying dx , not currenton dc prior received cholicine x1 coursenot on meds History of pulmonary embolus 713464085 Z86.711 hx ofeliquis 5 mg bid Insomnia 239796415 G47.0 9 carrying dxmelatoni n 10 mg HS Mixed anxi ety and depressive disorder 435910659 F41.8 carrying dxencourag e getting oob for mealspsych prnmonitor mood and effecteffe xor 150 mg daily and 37.5 mg dailyativa n 1 mg bid for anxiety Paroxysmal atrial fibrillation 534748745 I48.0 carrying dx, rate controlled metoprolol 12.5 mg bideliquis 5 mg bidmonitor hr and blood loss Anemia due to blood loss 245365749 D50.0 stable CBC in hospitalmo nitor here with labs Seasonal allergy 1524933 04 J30.2 carrying dxzyrtec 10 mg prnflonase bid Overactive urinary bladder 350057888 N32.81 flomax 0.4 mg dailygemte sa 75 mg dailymonit or urine output and ss [id number] [facility] [address] 01/14/2024 10:54:41 01/15/2024 03:49:42 Dislocation of hip joint prosthesis 909543642 T84.021D chronic pain sp surgery last year, (has not been on oxycodone at home-pcp will not write for it) contoxycod one 5 mg q8h prnordered for breakthrou gh pain only while herere-herrera l oxycodone use next weektyleno l 650 mg q4h prngabapen tin 100 mg biddiclofe nac 1 % gel 4grams tid to hip (ok to use with nsaid allergy-to lerates)pa in physiatry f/u Essential hypertension 05591682 I10 hr bp stablecarr juan manuel dxmetoprol ol 12.5 mg bidholding parameters monitor BP qshift x 3 days, then dailyadmis moreno CMP Fall R29.6 prior to rehabuses lift in shoe and w/c with recurrent fallsawait ing bed rails for bed at home? if he needs more resources and help at homePT OT eval and treatfall precaution ssupportiv e care Gastroesop hageal reflux disease without esophagitis 990817376 K21.9 pantoprazo le 40 mg dailymonit or sx Chronic back pain 092338 002 G89.29 see pain regimen abovehas cortisone injections with dr sharif scheduled Asthenia 72229113 R53.1 deconditio nedPT OT eval and treatcont with lift in shoe Mixed anxi ety and depressive disorder 013441570 F41.8 carrying dxencourag e getting oob for mealspsych prnmonitor mood and effecteffe xor 150 mg daily and 37.5 mg dailyativa n 1 mg bid for anxiety Irritation of penis 3715 59437 N48.89 pt with irritation to penis distal shaftnysta tin triamcinol one cream bid topically to affected areamonito r for changessee pain meds above [id number] Smitha Sparks MD [address] [place] [address] 01/14/2024 13:17:18 01/16/2024 09:22:40 Dislocation of hip joint prosthesis 515763695 T84.021D As above. Essential hypertension 22970110 I10 In good control since return.Con tinue metoprolol 12.5 mg BID, hold for SBP<120 or pulse<60Mo nitor BP and labs Fall R29.6 Continues with frequent falls.Need s PT/OT for strengthen ing, balance, gait training, safety and function.C ontinue fall precaution s.Monitor for safety.Wou ld likely benefit from more supportive living situation, but is resistant. Continue to discuss outpt. supports. Gastroesop hageal reflux disease without esophagitis 505043826 K21.9 No current sxs.Contin ue pantoprazo le 40 mg qdMonitor GI sxs Chronic back pain 036917 002 G89.29 Chronic pain.Is followed by Dr. Lara for steroid shots and Dr. Sanchez for meds.Just found out Dr. Sanchez retired, thinks someone took over from him.Contin ue gabapentin 100 mg BID, oxycodone 5 mg q 8 hrs prn and APAP 650 mg q 4 hrs prn.Will attempt to wean oxy prior to d/c if pt is to go home, as it is unclear when he will be able to get in to see pain management and PCP will not rx this.Has F/U with Dr. Lara on 01/24 for steroid injections . Asthenia 19590237 R53.1 As above. Gout 46288919 M10.09 No recent flares.Tx prn History of pulmonary embolus 238676615 Z86.711 Continue Eliquis 5 mg BIDMonitor for sxs. Insomnia 403072168 G47.0 9 Continue melatonin 10 mg qhsMonitor sleep patterns Mixed anxi ety and depressive disorder 784480433 F41.8 Mood good today.Cont inue effexor 187.5 mg qd and lorazepam 1 mg BID.Monito r mood.Psych consult prn. Paroxysmal atrial fibrillation 729716916 I48.0 Rate in good control on meds as above.Cont inue eliquis 5 mg BID for AC.Monitor HR and bleeding risk. Anemia due to blood loss 639917679 D50.0 Continues to be stable.Mon itor. Seasonal allergy 1312465 04 J30.2 No current sxs.Contin ue cetirizine 10 mg qd.Monitor Overactive urinary bladder 858338554 N32.81 Stable.Con tinue tamsulosin 0.4 mg qd and gemtesa 75 mg qdMonitor urinary function. Irritation of penis 3715 04595 N48.89 Recurrent problem.Co ntinue nystatin/t riamcinolo ne cream BID to affected areaMonito r for improvemen t. [id number] ALEXIS DOLAN NP [address] [address] 01/21/2024 08:51:05 01/22/2024 11:58:27 Fall R29.6 Continues with frequent falls.Need s PT/OT for strengthen ing, balance, gait training, safety and function.C ontinue fall precaution s.Monitor for safety.Wou ld likely benefit from more supportive living situation, but is resistant. Working with rehab re: proper adaptive equipment at home to facilitate a more successful discharge. Continue to discuss outpt. supports. Asthenia 20342263 R53.1 As above. Chronic back pain 868613 002 G89.29 Chronic pain.Is followed by Dr. Lara for steroid shots and Dr. Sanchez for meds.Just found out Dr. Sanchez retired, thinks someone took over from him.Contin ue gabapentin 100 mg BID, oxycodone 5 mg q 8 hrs prn and APAP 650 mg q 4 hrs prn.Will attempt to wean oxy prior to d/c if pt is to go home, as it is unclear when he will be able to get in to see pain management and PCP will not rx this.Has F/U with Dr. Lara on 01/24 for steroid injections . Dislocatio n of hip joint prosthesis 143888123 T84.021D As above. Essential hypertension 53253412 I10 In good control since return.Con tinue metoprolol 12.5 mg BID, hold for SBP<120 or pulse<60Mo nitor BP and labs Gastroesop hageal reflux disease without esophagitis 304223353 K21.9 No current sxs.Contin ue pantoprazo le 40 mg qdMonitor GI sxs Gout 10659738 M10.09 No recent flares.Tx prn History of pulmonary embolus 515024219 Z86.711 Continue Eliquis 5 mg BIDMonitor for sxs. Insomnia 747306609 G47.0 9 Continue melatonin 10 mg qhsMonitor sleep patterns Mixed anxi ety and depressive disorder 915835063 F41.8 Mood good today.Cont inue effexor 187.5 mg qd and lorazepam 1 mg BID.Monito r mood.Psych consult prn. Paroxysmal atrial fibrillation 696727102 I48.0 Rate in good control on meds as above.Cont inue eliquis 5 mg BID for AC.Monitor HR and bleeding risk. Anemia due to blood loss 239987364 D50.0 Hgb 8.9 -> 8.3Monitor CBC, VS, s/s active bleeding Seasonal allergy 6062677 04 J30.2 No current sxs.Contin ue cetirizine 10 mg qd.Monitor Overactive urinary bladder 015122367 N32.81 Stable.Con tinue tamsulosin 0.4 mg qd and gemtesa 75 mg qdMonitor urinary function. Irritation of penis 3715 67396 N48.89 Recurrent problem.Co ntinue nystatin/t riamcinolo ne cream BID to affected areaMonito r for improvemen t. [id number] ALEXIS DOLAN NP [address] [address] 01/23/2024 12:21:17 01/27/2024 10:33:12 Fall R29.6 No recent fallsWould likely benefit from more supportive living situation, but is resistant. PT/OT for strengthen ing, balance, gait training, safety and function.C ontinue fall precaution s.Monitor for safety.Dion garcia working with rehab re: proper adaptive equipment at home to facilitate a more successful discharge. Continue to discuss outpt. supports. Asthenia 49239892 R53.1 deconditio samuel due to multiple ER visits and fallsConti nue with PT/OT for strengthen ing and enduranceC ontinue to monitor Anemia due to blood loss 708804559 D50.0 Asymptomat icHgb improving 8.3 -> 9.3Monitor CBC, VS, s/s active bleeding Chronic back pain 140590 002 G89.29 Chronic pain-wll managed per patientFol lowed by Dr. Lara for steroid injections and Dr. Sanchez (?retired) for medsContin ue withgabape ntin 100 mg BID,oxycod one 5 mg q 8 hrs prnAPAP 650 mg q 4 hrs prn.Will attempt to wean oxy prior to d/c if pt is to go home, as it is unclear when he will be able to get in to see pain management and PCP will not rx this.Has F/U with Dr. Lara on 01/24 for steroid injections . Dislocatio n of hip joint prosthesis 169996850 T84.021D As above. Essential hypertension [id number] I10 BP's stableAsym tpomaticCo ntinue metoprolol 12.5 mg BID, with parameters -hold for SBP<120 or pulse<60Mo nitor VS and labs Gastroesop hageal reflux disease without esophagitis 992499975 K21.9 Asymptomat icContinue pantoprazo le 40 mg qdMonitor GI sxs History of pulmonary embolus 853564557 Z86.711 Asymtomati cContinue Eliquis 5 mg BIDMonitor for sxs.Monito r s/s of bleeding Insomnia 835846850 G47.0 9 Not an issue todayConti nue melatonin 10 mg qhsMonitor sleep patterns Mixed anxi ety and depressive disorder 641196889 F41.8 Mood good today.Cont inue effexor 187.5 mg qd and lorazepam 1 mg BID.Monito r mood.Psych consult prn. Paroxysmal atrial fibrillation 600998948 I48.0 Rate in good control on BBContinue eliquis 5 mg BID for AC.Monitor HR and bleeding risk. Overactive urinary bladder 738842882 N32.81 Asymptomat icUsing urinalCont inue tamsulosin 0.4 mg qd and gemtesa 75 mg qdMonitor urinary function. Irritation of penis 3715 92970 N48.89 Recurrent problem.Co ntinue nystatin/t riamcinolo ne cream BID to affected areaMonito r for improvemen t.Pt. to schedule a Urology appt. to address this concern. [id number] ALEXIS DOLAN NP [facility] [address] 01/28/2024 12:19:29 01/29/2024 11:06:00 Fall 1455497 R29.6 No recent fallsWould likely benefit from more supportive living situation, but is resistant. PT/OT for strengthen ing, balance, gait training, safety and function.C ontinue fall precaution s.Monitor for safety.Dion garcia working with rehab re: proper adaptive equipment at home to facilitate a more successful discharge. Continue to discuss outpt. supports. Asthenia [id number] R53.1 deconditio samuel due to multiple ER visits and fallsConti nue with PT/OT for strengthen ing and enduranceC ontinue to monitor Anemia due to blood loss 023508529 D50.0 Asymptomat icHgb improving 8.3 -> 9.3Monitor CBC, VS, s/s active bleeding Irritation of penis 3715 35034 N48.89 Recurrent problem.Co ntinue nystatin/t riamcinolo ne cream BID to affected areaMonito r for improvemen t.Pt. to schedule a Urology appt. to address this concern. Chronic back pain 337311 002 G89.29 Chronic pain-well managed per patientFol lowed by Dr. Lara for steroid injections and Dr. Sanchez (?retired) for medsContin ue withgabape ntin 100 mg BID,oxycod one 5 mg q 8 hrs prnAPAP 650 mg q 4 hrs prn.Will attempt to wean oxy prior to d/c if pt is to go home, as it is unclear when he will be able to get in to see pain management and PCP will not rx this.Has F/U with Dr. Lara on 02/21 for steroid injections . Dislocatio n of hip joint prosthesis 758503763 T84.021D As above. Essential hypertension 12019190 I10 BP's stableCont inue metoprolol 12.5 mg BID, with parameters -hold for SBP<120 or pulse<60Mo nitor VS and labs Gastroesop hageal reflux disease without esophagitis 376990307 K21.9 Asymptomat icContinue pantoprazo le 40 mg qdMonitor GI sxs History of pulmonary embolus 349482742 Z86.711 Continue Eliquis 5 mg BIDMonitor for sxs.Monito r s/s of bleeding Insomnia 034408225 G47.0 9 Continue melatonin 10 mg qhsMonitor sleep patterns Mixed anxi ety and depressive disorder 773818026 F41.8 Mood good today.Cont inue effexor 187.5 mg qd and lorazepam 1 mg BID and 1 mg qd prn x 14 d, due for re-eval 02/06/ tor mood.Psych consult prn. Paroxysmal atrial fibrillation 154894777 I48.0 Rate in good control on BBContinue eliquis 5 mg BID for AC.Monitor HR and bleeding risk. Overactive urinary bladder 099111046 N32.81 Using urinalCont inue tamsulosin 0.4 mg qd and gemtesa 75 mg qdMonitor urinary function. [id number] [facility] [address] 01/29/2024 08:45:23 01/30/2024 15:27:24 Fall 7362515 R29.6 ed rails are in and should be installed today per pt No recent falls, improving with strength and awarenessW ould likely benefit from more supportive living situation, but is resistant. social work specialist has discussed this with pt.PT/OT for strengthen ing, balance, gait training, safety and function.C ontinue fall precaution s.Monitor for safety.Dion garcia working with rehab re: proper adaptive equipment at home to facilitate a more successful discharge. Continue to discuss outpt. supports. 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 to schedule a Urology appt. to address this concern. Chronic back pain 967629 002 G89.29 Chronic pain-well managed per patientFol lowed by Dr. Lara for steroid injections and Dr. Sanchez (?retired) for medsContin ue withgabape ntin 100 mg BID,01/28 decrease oxycodone from 5 mg q 8 hrs prn to q 24 hours prn and will not dc with oxycodoneA PAP 650 mg q 4 hrs prn.Will attempt to wean oxy prior to d/c if pt is to go home, as it is unclear when he will be able to get in to see pain management and PCP will not rx this.Has F/U with Dr. Lara on 02/21 for steroid injections . Dislocatio n of hip joint prosthesis 438500786 T84.021D resolvedAs above. Essential hypertension 23080955 I10 BP's stableCont inuemetopr olol 12.5 mg BID, with parameters -hold for SBP<120 or pulse<60Mo nitor VS and labs Gastroesop hageal reflux disease without esophagitis 554765077 K21.9 Asymptomat icContinue pantoprazo le 40 mg qdMonitor GI sxs History of pulmonary embolus 814001725 Z86.711 ContinueEl iquis 5 mg BIDMonitor for sxs.Monito r s/s of bleeding Insomnia 798589434 G47.0 9 Continueme latonin 10 mg qhsMonitor sleep patterns Mixed anxi ety and depressive disorder 442972275 F41.8 Mood good today.Cont inueeffexo r 187.5 mg qdlorazepa m 1 mg BID and 1 mg qd prn x 14 d, due for re-eval 02/06(was not on this at home and will not go home with this)Monit or mood.Psych consult prn. Paroxysmal atrial fibrillation 440051929 I48.0 Rate in good control on BBContinue eliquis 5 mg BID for AC.Monitor HR and bleeding risk. Overactive urinary bladder 075658360 N32.81 Continueta msulosin 0.4 mg qd and gemtesa 75 mg qdMonitor urinary function. [id number] Antonieta Brito NP [facility] [address] 01/30/2024 11:14:59 01/31/2024 10:24:10 Chronic back pain 083451918 G89.29 Chronic pain-well managed per patientFol lowed by Dr. Lara for steroid injections and Dr. Sanchez (?retired) for medsContin ue with01/28 decreased oxycodone from 5 mg q 8 hrs prn to q 24 hours prn and will not dc with oxycodone1 0 increase gabapentin from 200 mg to 300 mg po BID,cont APAP 650 mg q 4 hrs prn.fu pain management and PCP will not rx oxycodone with falls, pt awareHas F/U with Dr. Lara on 02/21 for steroid injections .01/29 cont with above plan Fall R29.6 10 bed rails are installed per pt for home useNo recent falls, improving with strength and awarenessW ould likely benefit from more supportive living situation, but is resistant. social work specialist has discussed this with pt.PT/OT for strengthen ing, balance, gait training, safety and function.C ontinue fall precaution s.Monitor for safety.Dion garcia working with rehab re: proper adaptive equipment at home to facilitate a more successful discharge. Continue to discuss outpt. supports.o n eliquis, if falls continue, may need to be taken off this Asthenia [id number] R53.1 deconditio samuel due to multiple ER visits and fallsConti nue with PT/OT for strengthen ing and enduranceC ontinue to monitor Essential hypertension 59961145 I10 BP's stableCont inuemetopr olol 12.5 mg BID, with parameters -hold for SBP<120 or pulse<60Mo nitor VS and labs Gastroesop hageal reflux disease without esophagitis 922190537 K21.9 Asymptomat icContinue pantoprazo le 40 mg qdMonitor GI sxs History of pulmonary embolus 458512398 Z86.711 ContinueEl iquis 5 mg BIDMonitor for sxs.Monito r s/s of bleeding Insomnia 647768155 G47.0 9 Continueme latonin 10 mg qhsMonitor sleep patterns Mixed anxi ety and depressive disorder 999238212 F41.8 Mood good today.Cont inueeffexo r 187.5 mg qdlorazepa m 1 mg BID and 1 mg qd prn x 14 d, due for re-eval 02/06(was not on this at home and will not go home with this)Monit or mood.Psych consult prn. Paroxysmal atrial fibrillation 244425699 I48.0 Rate in good control on BBContinue eliquis 5 mg BID for AC.Monitor HR and bleeding risk.if falls continue, may need to be taken off this Dry eyes 029825500 H04.1 23 pt with dry eye today01/29 artificial tears 1gtt each eye bidmonitor [id number] Antonieta Brito NP [address] [address] 01/31/2024 12:19:46 02/03/2024 12:09:22 Chronic back pain 396495895 G89.29 Chronic pain-well managed per patientFol lowed by Dr. Lara for steroid injections and Dr. Sanchez (?retired) for medsContin ue with10/ decreased oxycodone from 5 mg q 8 hrs prn to q 24 hours prn and will not dc with oxycodone1 0/3 increase gabapentin from 200 mg to 300 mg po BID,cont APAP 650 mg q 4 hrs prn.10 pain controlled at this timefu pain management and PCP will not rx oxycodone with falls, pt awareHas F/U with Dr. Lara on 02/21 for steroid injections .10/3 cont with above plan Fall R29.6 10/4 had unwitnesse d fall and suffered skin tearimprov ing with strength and awareness with therapyWou ld likely benefit from more supportive living situation, but is resistant. social work specialist has discussed this with pt.01/30 plan to have another meeting about optimizing discharge with hx of fallsoften doesn't use hearing aides or shoe liftPT/OT for strengthen ing, balance, gait training, safety and function.C ontinue fall precaution s.Monitor for safety.Dion garcia working with rehab re: proper adaptive equipment at home to facilitate a more successful discharge with new bed rails in place on 01/29 at home per ptContinue to discuss outpt. supports.o n oswaldis, if falls continue, may need to be taken off this Asthenia 26023370 R53.1 deconditio samuel due to multiple ER visits and fallsConti nue with PT/OT for strengthen ing and enduranceC ontinue to monitor Mixed anxi ety and depressive disorder 074257620 F41.8 Mood good today.Cont inueeffexo r 187.5 mg qdlorazepa m 1 mg BID and 1 mg qd prn x 14 d, due for re-eval 02/06(was not on this at home and will not go home with this as he is high risk for falls)Steven tor mood.Psych consult prn. Respirator y tract congestion and cough 085998930 R05.8 pt with viral symptoms of congestion , cough and rhinorhea notedPt insists this is his regular rhinorhea and it is clear for 4-5 daysnote; covid in facility 01/30 change zyrtec to loraditine 10 mg po qdcontsupp ortive careencour age po fluids >2 l/24 hourscovid swab x two days negativero bitussin 10 ml po bid and q 6 hours prn coughcbc with diff, bmp on 02/02monito r Tear of skin 548526174 T 14.8XXA left forearm skin tearns wash, pat dry, leave steri strips in place(let them fall off on there own) and cover with bodered dressing daily [id number] Antonieta Brito NP [address] [address] 02/03/2024 16:12:05 02/04/2024 09:52:24 Chronic back pain 472178327 G89.29 Chronic pain-well managed per patientFol lowed by Dr. Lara for steroid injections and Dr. Sanchez (?retired) for medsContin ue with01/28 decreased oxycodone from 5 mg q 8 hrs prn to q 24 hours prn and will not dc with oxycodonec ontgabapen tin 300 mg po BID, increased recentlyco nt APAP 650 mg q 4 hrs prn.pain controlled at this timefu pain management and PCP will not rx oxycodone with falls, pt awareHas F/U with Dr. Lara on 02/21 for steroid injections . Asthenia 42916384 R53.1 deconditio samuel due to multiple ER visits and fallsConti nue with PT/OT for strengthen ing and enduranceC ontinue to monitor Mixed anxi ety and depressive disorder 772874731 F41.8 Mood good today.Cont inueeffexo r 187.5 mg qdlorazepa m 1 mg BID and 1 mg qd prn x 14 d, due for re-eval 02/06(was not on this at home and will not go home with this as he is high risk for falls)Steven tor mood.Psych consult prn. Acute COVID-19 215296939 8 U07.1 pt with viral symptoms of congestion , cough and rhinorhea notedPt insists this is his regular rhinorhea and it is clear for 4-5 daysnote; covid in facility 01/30 change zyrtec to loraditine 10 mg po qd covid positive on 01/31, started on paxlovid full dose by public relations representative over the swrinew66/ 7 startwill decrease eliquis to 2.5 mg po bid x 5 days (rec by pharmacy due to paxlovid )isolation precaution s refuses mucinex contsuppor tive careencour age po fluids >2 l/24 hoursrobit ussin 10 ml po bid and q 6 hours prn coughcbc with diff, bmp on 02/02 stablemoni tor Recurrent falls 06231852 2 R29.6 note:01/30 had unwitnesse d fall and suffered skin tearimprov ing with strength and awareness with therapyWou ld likely benefit from more supportive living situation, but is resistant. social work specialist has discussed this with pt.01/30 plan to have another meeting about optimizing discharge with hx of fallsoften doesn't use hearing aides or shoe liftPT/OT for strengthen ing, balance, gait training, safety and function.C ontinue fall precaution s.Monitor for safety.Dion garcia working with rehab re: proper adaptive equipment at home to facilitate a more successful discharge with new bed rails in place on 01/29 at home per ptContinue to discuss outpt. supports.o beverly correa, if falls continue, may need to be taken off this [id number] ALEXIS DOLAN NP [facility] [address] [place] [address] 02/06/2024 14:59:12 02/10/2024 09:35:59 Acute COVID-19 2595497045 U07.1 Tested pos. ympto ms of congestion , cough and rhinorheaC ompleting paxlovidCl inically improving, reports feeling much better today.Will repeat covid testing tomorrowEa eric to test neg. so he can continue to work on d/c plans.cont inue:suppo rtive careencour age po fluids >2 l/24 hoursrobit ussin 10 ml po bid and q 6 hours prn cough Chronic back pain 466228 002 G89.29 Chronic pain-well managed per patientFol lowed by Dr. Lara for steroid injections and Dr. Sanchez (?retired) for medsContin ue with01/28 decreased oxycodone from 5 mg q 8 hrs prn to q 24 hours prn and will not dc with oxycodonec ontgabapen tin 300 mg po BID, increased recentlyco nt APAP 650 mg q 4 hrs prn.pain controlled at this timefu pain management and PCP will not rx oxycodone with falls, pt awareHas F/U with Dr. Lara on 02/21 for steroid injections . Asthenia 47039438 R53.1 deconditio samuel due to multiple ER visits and fallsConti nue with PT/OT for strengthen ing and enduranceC ontinue to monitor Mixed anxi ety and depressive disorder 098287881 F41.8 Mood good today.Cont inueeffexo r 187.5 mg qdlorazepa m 1 mg BID and 1 mg qd prn x 14 d, will renew for another 14 d(was not on this at home and will not go home with this as he is high risk for falls)Steven tor mood.Psych consult prn. Recurrent falls 52734077 2 R29.6 note:01/30 had unwitnesse d fall and suffered skin tearimprov ing with strength and awareness with therapyWou ld likely benefit from more supportive living situation, but is resistant. social work specialist has discussed this with pt.01/30 plan to have another meeting about optimizing discharge with hx of fallsoften doesn't use hearing aides or shoe liftPT/OT for strengthen ing, balance, gait training, safety and function.Stephen hurley fall precaution s.Monitor for safety.Dion garcia working with rehab re: proper adaptive equipment at home to facilitate a more successful discharge with new bed rails in place on 01/29 at home per ptContinue to discuss outpt. supports.betsy correa, if falls continue, may need to be taken off this [id number] ALEXIS DOLAN NP [facility] [address] 02/11/2024 10:52:42 02/12/2024 12:31:32 Acute COVID-19 6899607558 U07.1 Tested pos. ympto ms of congestion , cough and rhinorheaC ompleted paxlovid with clinical improvemen t, feeling much better.Melanie mark neg. onti nue supportive careMonito r Chronic back pain 087953 002 G89.29 Chronic pain-well managed per patientFol lowed by Dr. Lara for steroid injections and Dr. Sanchez (?retired) for medsContin ue:oxycodo ne - decreased 01/28 from 5 mg q 8 hrs prn to q 24 hours prn and will not dc home on this med.gabape ntin 300 mg po BID, increased about 2 wks agoAPAP 650 mg q 4 hrs prn.pain in fair control at this time follow up with pain management and PCPHas F/U with Dr. Lara on 02/21 for steroid injections . Asthenia 61597824 R53.1 deconditio samuel due to multiple ER visits and fallsConti nue with PT/OT for strengthen ing and enduranceC ontinue to monitorGoa suleman remains to return home, working on more adaptive equipment in the home Mixed anxi ety and depressive disorder 662323427 F41.8 Mood good today.Cont inueeffexo r 187.5 mg qdlorazepa m 1 mg BID and 1 mg qd prn x 14 d, will renew for another 14 d(was not on this at home and will not go home with this as he is high risk for falls)Steven tor mood.Psych consult prn. Recurrent falls 36658327 2 R29.6 01/30 - unwitnesse d fall and suffered skin tearimprov ing with strength and awareness with therapyWou ld likely benefit from more supportive living situation, but is resistant. social work specialist has discussed this with pt.Continu e fall precaution s.Monitor for safety.Dion garcia working with rehab re: proper adaptive equipment at home to facilitate a more successful discharge with new bed rails in place on 01/29 at home per ptContinue to discuss outpt. supports.O n eliquis, if falls continue, may need to reconsider use. Paroxysmal atrial fibrillation 131226000 I48.0 Rate in good control on BBContinue eliquis 5 mg BID for AC.Monitor HR and bleeding risk. [id number] [facility] [address] 02/12/2024 16:56:54 02/17/2024 09:14:50 Acute COVID-19 8338865433 U07.1 Tested pos. 01/31 with covid resolvedSy mptoms of congestion , cough and rhinorhea resolvedCo mpleted paxlovid with clinical improvemen t, feeling much better.Melanie mark neg. onti nue supportive careMonito r for sequelae Chronic back pain 067191 002 G89.29 Chronic pain-well managed per patientFol lowed by Dr. Lara for steroid injections and Dr. Sanchez (?retired) for medsContin ue:oxycodo ne 5 mg q 24 hours prn and will not dc home on this med.gabape ntin 300 mg po BID, increased about 2 wks ago with effectAPAP 650 mg q 4 hrs prn.pain in fair control at this time follow up with pain management and PCPHas F/U with Dr. Lara on 02/21 for steroid injections . Asthenia 82563144 R53.1 deconditio samuel due to multiple ER visits and fallsConti nue with PT/OT for strengthen ing and enduranceC ontinue to monitorGoa l remains to return home, working on more adaptive equipment in the home Mixed anxi ety and depressive disorder 704330892 F41.8 Mood good today.Cont inueeffexo r 187.5 mg qdlorazepa m 1 mg BID and 1 mg qd prn x 14 d, will renew for another 14 d(was not on this at home and will not go home with this as he is high risk for falls)Steven tor mood.Psych consult prn. Paroxysmal atrial fibrillation 852871922 I48.0 Rate in good control on BBContinue eliquis 5 mg BID for AC.Monitor HR and bleeding risk. Leukocytosis 446951981 D 72.829 02/11 with unknown source of wbc 16.3 and recent covid dxstartcxr to rule out pnacbc and bmpand urinalysis todaywill attempt to get workup completed to ensure no infection before dc [id number] Antonieta Brito NP [address] [address] 02/13/2024 09:46:58 02/17/2024 09:45:20 Leukocytosis 790844767 D72.829 02/11 with unknown source of wbc 16.3 and wbc 17.5 on 02/12 and recent covid dxlikely from sinusituss tartcxr neg for acute diseaase on 02/12cbc with diff , bld cultures, and bmp in am 02/13urina lysis pendinghol d off on dc until infection resolved Acute COVID-19 299730794 8 U07.1 resolvedTe sted pos. 01/31 with covidSympt oms of congestion , cough and rhinorhea resolvedCo mpleted paxlovid with clinical improvemen t, feeling much better.Melanie mark neg. onti nue supportive careMonito r for sequelae Chronic back pain 674474 002 G89.29 Chronic pain-well managed per patientFol lowed by Dr. Lara for steroid injections and Dr. Sanchez (?retired) for medsContin ue:oxycodo ne 5 mg q 24 hours prn and will not dc home on this med.02/12 increase gabapentin from 300 mg po BID to 300 mg po TID. .lidocaine pathc 4% topically to left hip daily, tylenol 650 mg po tid x 10 days nte 3g/day with 650 mg po q 4 hours prn painpain in fair control at this timefollow up with pain management and PCPHas F/U with Dr. Lara on 02/21 for steroid injections . Asthenia [id number] R53.1 deconditio samuel due to multiple ER visits and fallsConti nue with PT/OT for strengthen ing and enduranceC ontinue to monitorGoa l remains to return home, working on more adaptive equipment in the home Mixed anxi ety and depressive disorder 176936519 F41.8 Mood good today.Cont inueeffexo r 187.5 mg qdlorazepa m 1 mg BID and 1 mg qd prn x 14 d, will renew for another 14 d(was not on this at home and will not go home with this as he is high risk for falls)Steven tor mood.Psych consult prn. Paroxysmal atrial fibrillation 343791713 I48.0 Rate in good control on BBContinue eliquis 5 mg BID for AC.Monitor HR and bleeding risk. Acute sinusitis 17709220 J01.90 pt with wbc count of 17.5 todayhas notable hx of sinusitis several times a year with recent covid nasal drainage and residual fullness to sinus areawill treat for sinusitis with increased countcxr negative for pna on start augmentin 875/125 mg po bid x 10 days with probioticm onitor [id number] Antonieta Brito NP [address] [address] 02/14/2024 13:28:53 02/18/2024 09:46:18 Acute sinusitis 22477540 J01.90 pt with wbc as above increasedh as notable hx of sinusitis several times a year with recent covid nasal drainage and residual fullness to sinus area and treated for sinusitisc xr negative for pna on ugme ntin 875/125 mg po bid x 10 days with probioticm onitor Leukocytosis 745124032 D 72.829 with unknown source of wbc 16.3 and wbc 17.5 on 02/12 and recent covid and 15.4 on 02/13 dxlikely from sinusitusn ote;cxr neg for acute diseaase on 02/12cbc with diff as above , bld cultures pending ,urinalysi s esenntiall y neg for infectionh old off on dc until infection resolvedcb c with diff and bmp on saturday Chronic back pain 305295 002 G89.29 Chronic pain- per patientFol lowed by Dr. Lara for steroid injections and Dr. Sanchez (?retired) for medsContin ue:oxycodo ne 5 mg q 24 hours prn and will not dc home on this med.gabape ntin 300 mg po TID.lidoca ine pathc 4% topically to left hip dailytylen ol 650 mg po tid x 10 days nte 3g/day with 650 mg po q 4 hours prn painpain in fair control at this timefollow up with pain management and PCPHas F/U with Dr. Lara on 02/21 for steroid injections . Asthenia [id number] R53.1 deconditio samuel due to multiple ER visits and fallsConti nue with PT/OT for strengthen ing and enduranceC ontinue to monitorGoa l remains to return home, working on more adaptive equipment in the home Mixed anxi ety and depressive disorder 564741690 F41.8 Mood good today.Cont inueeffexo r 187.5 mg qdlorazepa m 1 mg BID and 1 mg qd prn x 14 d, will renew for another 14 d(was not on this at home and will not go home with this as he is high risk for falls)Steven tor mood.Psych consult prn. [id number] Antonieta Brito NP [address] [address] 02/17/2024 08:15:13 02/19/2024 11:21:28 Leukocytosis 682509928 D72.829 with unknown source of wbc 16.3 and wbc 17.5 on 02/12 and recent covid and 15.4 on 02/13 and 15.2 on 02/16felt likely from sinusitisn ote;cxr neg for acute diseaase on 02/12cbc with diff as above , bld cultures pending ,urinalysi s esenntiall y neg for infectionh old off on dc until infection resolvedcb c with diff and bmp on as abovesend stool for cdiffconsi keaton cbc and bmp on or saturday Acute sinusitis 04515202 J01.90 pt with wbc as above increasedh as notable hx of sinusitis several times a year with recent covid nasal drainage and residual fullness to sinus area and treated for sinusitisc xr negative for pna on ugme ntin 875/125 mg po bid x 10 days with probiotic totalmonit or Chronic back pain 981337 002 G89.29 Chronic pain- per patientFol lowed by Dr. Lara for steroid injections and Dr. Sanchez (?retired) for medsContin ue:oxycodo ne 5 mg q 24 hours prn and will not dc home on this med.gabape ntin 300 mg po TID.lidoca ine pathc 4% topically to left hip dailytylen ol 650 mg po tid x 10 days nte 3g/day with 650 mg po q 4 hours prn painpain in fair control at this timefollow up with pain management and PCPHas F/U with Dr. Lara on 02/21 for steroid injections . Asthenia [id number] R53.1 deconditio samuel due to multiple ER visits and fallsConti nue with PT/OT for strengthen ing and enduranceC ontinue to monitorGoa l remains to return home, working on more adaptive equipment in the home Loose stool [id number] R1 9.5 stool loose02/16 cdiff sampleincr ease imodium tab with first loose stool and 2 tabs with each loose stool after no more than 7 tabs per daypush po fluids [id number] ALEXIS DOLAN NP [address] [address] 02/18/2024 16:27:21 02/19/2024 11:45:47 Loose stool [id number] R19.5 Stool loose over the weekendCdi ff sample requested, not obtained yet as has not moved bowels in 2 days.Now asking for a supp so he can provide a stool spec. Discussed with resident - If no diarrhea, then no spec needed as suspicion for c-diff very low.Pt. will monitor, has a hat ready for use in his BR just in case he moves his bowels.Wou ld avoid imodium for now just in case he is using it and it is masking sx. Leukocytosis 341749034 D 72.829 with unknown sourcewbc 16.3,17.5 last week, now 15.2Work up neg. so far, so suspecting may be related to sinusitis, currently on augmentin. Newer issue with loose BM, c-diff spec ordered but not obtained yet, no BM x 2 days. Plan -continue to monitor bowels, pt. ready with a hat is he does have a BM.Check CBC x 1 in am to trend WBCIf trending down and no loose stool would say he is headed in the right direction and could consider returning home Acute sinusitis 37150326 J01.90 pt with wbc as above increasedh as notable hx of sinusitis several times a year with recent covid nasal drainage and residual fullness to sinus area and treated for sinusitisc xr negative for pna on 02/12Curre ntly on augmentin 875/125 mg po bid x 10 days with probioticm onitor Chronic back pain 596796 002 G89.29 Chronic pain- per patientFol lowed by Dr. Lara for steroid injections and Dr. Sanchez (?retired) for medsContin ue:oxycodo ne 5 mg q 24 hours prn and will not dc home on this med.gabape ntin 300 mg po TID.lidoca ine pathc 4% topically to left hip dailytylen ol 650 mg po tid x 10 days nte 3g/day with 650 mg po q 4 hours prn painpain in fair control at this timefollow up with pain management and PCPHas F/U with Dr. Lara on 02/21 for steroid injections . Asthenia [id number] R53.1 deconditio samuel due to multiple ER visits and fallsConti nue with PT/OT for strengthen ing and enduranceC ontinue to monitorGoa l remains to return home, working on more adaptive equipment in the home [id number] Antonieta Brito NP [address] [place] [address] 02/20/2024 10:15:20 02/24/2024 11:12:40 Loose stool [id number] R19.5 resolved, feeling betterstoo l sample unable to tested for cdif as it is too formed.Michael y unlikely c diffWould avoid imodium for now just in case he is using it and it is masking sx. Leukocytosis 338720677 D 72.829 with unknown sourcewbc 16.3,17.5 last week, 15.2 , 11.4Work up neg. so far, so suspecting may be related to sinusitis, currently on augmentin. continue to monitor bowelsChec k CBC x 1 in am to trend WBC on saturday and assess if pt is ready to go home on SaturdayIf trending down and no loose stool would say he is headed in the right direction and could consider returning homewill need to followed at home with pcp Dr Almaraz and nsg to make and appt for outpt care Acute sinusitis 28509759 J01.90 pt with wbc as above increased now resolving with abxhas notable hx of sinusitis several times a year with recent covid nasal drainage and residual fullness to sinus area and treated for sinusitisc xr negative for pna on 02/12Curre ntly on augmentin 875/125 mg po bid x 10 days with probioticm onitor Chronic back pain 567819 002 G89.29 Chronic pain- per patientFol lowed by Dr. Lara for steroid injections and Dr. Sanchez (?retired) for medsContin ue:oxycodo ne 5 mg q 24 hours prn and will not dc home on this med.gabape ntin 300 mg po TID.lidoca ine pathc 4% topically to left hip dailytylen ol 650 mg po tid x 10 days nte 3g/day with 650 mg po q 4 hours prn painpain in fair control at this timefollow up with pain management and PCPHas F/U with Dr. Lara on 02/21 for steroid injections . Asthenia [id number] R53.1 deconditio samuel due to multiple ER visits and fallsConti nue with PT/OT for strengthen ing and enduranceC ontinue to monitorGoa l remains to return home, working on more adaptive equipment in the home [id number] Antonieta Brito NP [facility] [address] [facility] [place] [address] 02/24/2024 13:50:49 02/25/2024 11:17:32 Leukocytosis 867022181 D72.829 resolved with abx to 9.5 today on 02/23 was 17.5 on 02/12Work up neg. so far, so suspecting may be related to sinusitis, currently on augmentin. will need to followed outpt with pcp Dr Almaraz Acute sinusitis 28129361 J01.90 resolved with abxhas notable hx of sinusitis several times a year with recent covid nasal drainage and residual fullness to sinus area and treated for sinusitisc xr negative for pna on 02/12compl eted augmentin 875/125 mg po bid x 10 days with probioticm onitor outpt with pcp Chronic back pain 281322 002 G89.29 Chronic pain- per patientFol lowed by Dr. Lara for steroid injections and Dr. Sanchez (?retired) for meds and injections Continue:g abapentin 300 mg po TID(starte d on here with good effect)lid ocaine pathc 4% topically to left hip dailytylen ol 650 mg po tid x 10 days nte 3g/day with 650 mg po q 4 hours prn painpain in fair control at this timefollow up with pain management and PCPF/U with Dr. Lara for steroid injections outpt with pcp Asthenia 06338420 R53.1 weakness improved with therapy hereContin ue with PT/OT for strengthen ing and endurance outpt prnvna and [facility] prnContinu e to monitorGoa l remains to return home, working on more adaptive equipment in the home Mixed anxi ety and depressive disorder 958487844 F41.8 Mood good today.Cont inueeffexo r 187.5 mg qdlorazepa m 1 mg BID prn (states he has plenty at home)(was not on this at home and will not go home with this as he is high risk for falls)Steven tor mood.Psych consult prn outpt Acute COVID-19 [id number] 8 U07.1 resolvedTe sted pos. 01/31 with covidSympt oms of congestion , cough and rhinorhea resolvedCo mpleted paxlovid with clinical improvemen t, feeling much better.Melanie mark neg. 02/09 Paroxysmal atrial fibrillation 182195241 I48.0 Rate in good control on BBContinue eliquis 5 mg BID for AC.Monitor HR and bleeding risk. Recurrent falls 25532316 2 R29.6 recurrent fallsWould likely benefit from more supportive living situation, but is resistant. social work specialist has discussed this with pt.Continu e fall precaution s. at homeMonito r for safety at home.new bed rails in place on 01/29 at home per ptContinue to discuss/of sera outpt. supports prn outpt with pcp Essential hypertension 98396775 I10 BP's stableCont inuemetopr olol 12.5 mg BID, with parameters -hold for SBP<120 or pulse<60Mo nitor outpt with pcp Gastroesop hageal reflux disease without esophagitis 451811102 K21.9 Asymptomat icContinue pantoprazo le 40 mg qdMonitor GI sxs ouptt with pcp History of pulmonary embolus 900904537 Z86.711 Continueno longer on eliquis due to high fall riskMonito r for sxs. oupt with pcp Insomnia 582257754 G47.0 9 Continueme latonin 10 mg qhsMonitor sleep patterns outpt with pcp Constipation 24017048 K5 9.00 pt with intermitte nt constipati oncontmira lax 17 grams po dailycolac e 100 mg po bidmonitor outpt with pcp [id number] Smitha Sparks MD [address] [address] 02/28/2024 13:04:09 03/02/2024 12:08:50 Fall 6374152 R29.6 As above. Asthenia 54969786 R53.1 Pt feels he is still too weak to manage at home. Feels he decided to go home too soon.Back for more rehab services.W ill restart PT/OT for strengthen ing, balance, gait training, safety and function.C ontinue fall precaution s.Monitor for safety.Nee ds to work on alternate housing options. Chronic back pain 053032 002 G89.29 Chronic pain.Is followed by Dr. Lara for steroid shots and Dr. Sanchez for meds.Just found out Dr. Sanchez retired, thinks someone took over from him.Contin ue gabapentin 100 mg BID, oxycodone 5 mg BID prn and APAP 650 mg q 4 hrs prn.Will attempt to wean oxy prior to d/c if pt is to go home, as PCP will not rx this.Has F/U with pain management as planned.St ill trying to find new PCP who will rx pain meds. Dislocatio n of hip joint prosthesis 195079354 T84.021D Resolved. Essential hypertension 91264108 I10 In good control.Co ntinue metoprolol 12.5 mg BID, hold for SBP<120 or pulse<60Mo nitor BP and labs Gastroesop hageal reflux disease without esophagitis 706444122 K21.9 No current sxs.Contin ue pantoprazo le 40 mg qdMonitor GI sxs Gout 56558448 M10.09 No recent flares.Tx prn History of pulmonary embolus 403872322 Z86.711 Continue Eliquis 5 mg BIDMonitor for sxs. Insomnia 165134229 G47.0 9 Continue melatonin 10 mg qhsMonitor sleep patterns Mixed anxi ety and depressive disorder 881789283 F41.8 Mood good today.Cont inue effexor 187.5 mg qd and lorazepam 1 mg BID.Monito r mood.Psych consult prn. Paroxysmal atrial fibrillation 891541095 I48.0 Rate in good control on meds as above.Cont inue eliquis 5 mg BID for AC.Monitor HR and bleeding risk. Anemia due to blood loss 276218406 D50.0 Continues to be stable.Mon itor. Seasonal allergy 3765441 04 J30.2 No current sxs.Contin ue cetirizine 10 mg qd.Monitor Overactive urinary bladder 994797726 N32.81 Stable.Con tinue tamsulosin 0.4 mg qd and gemtesa 75 mg qdMonitor urinary function. [id number] Antonieta Brito NP [place] [address] [place] [address] 03/05/2024 12:36:20 03/06/2024 11:38:17 Asthenia 67328195 R53.1 Pt feels he is still too weak to manage at home even with multiple increased services in community. PT/OT for strengthen ing, balance, gait training, safety and function.C ontinue fall precaution s with hx of multiple fallsMonit or for safety.Nee ds to work on alternate housing options, he is agreeable to look into at least assisted living facilities in the next week or two. Fall R29.6 hx of recurrent falls on ac currentlyh e is insistent on staying on ac and educated on risk and agreeable to plan to dc oxycodone and wean off ativan likely contributi ng to fallssee above asthenia Chronic back pain 120412 002 G89.29 Chronic pain to hip and backIs followed by Dr. Lara for steroid shots.Cont inuesince steriod injections recently pain managed well per pt.gabapen tin 300 mg TID, lidocaine patch, APAP 650 mg q 4 hrs prn.Will not prescribe this to go home with, as PCP will not rx this. pain controlled with above meds.Has F/U with pain management as planned.St ill trying to find new PCP Dislocatio n of hip joint prosthesis 777901065 T84.021D hx ofxray in [facility] ER shows no acute abnormalit y Essential hypertension 00228770 I10 stable.Con tinuemetop rolol 12.5 mg BID, hold for SBP<120 or pulse<60Mo nitor BP and labs Gastroesop hageal reflux disease without esophagitis 568947147 K21.9 No current sxs.Contin uepantopra zole 40 mg qdMonitor GI sxs Gout 45880763 M10.09 No recent flares.Tx prn History of pulmonary embolus 364360600 Z86.711 ContinueEl iquis 5 mg BIDMonitor for sxs.length y discussion on anticoagul ation and multiple falls. He is clear he would like to stay on the ac.will attempt to wean benzo's off and dc oxycodone likely contributi ng to falls Insomnia 063373355 G47.0 9 Continueme latonin 10 mg qhsMonitor sleep patterns Mixed anxi ety and depressive disorder 449441082 F41.8 Mood good today.Cont inueeffexo r 187.5 mg qd03/05 change lorazepam 1 mg po qd prn and plan to wean next week.(of note: pt took multiple ativan pills while at rehab from home stock on last admission requiring [facility] admission) plan is to wean off permanentl y.pt 03/05 agreeable to change to buspar 10 mg po bid todayMonit or mood.Psych consult this week Paroxysmal atrial fibrillation 487155209 I48.0 Rate in good control on meds as above.Cont inueeliqui s 5 mg BID for AC.Monitor HR and bleeding risk.with ac: will attempt to wean benzo's off by next week and dc oxycodone likely contributi ng to falls Seasonal allergy 7355846 04 J30.2 No current sxs.Contin ue loratadine 10 mg qd.Monitor Overactive urinary bladder 363607708 N32.81 Stable, urinating good amountsCon tinuetamul osin 0.4 mg qd and gemtesa 75 mg qdMonitor urinary function. Urinary tr act infectious disease 56861141 N39.0 dx with UTI at [facility] felt r/t traumatic cath, noted urine culture negative and received ceftriaxon e in hospcontce furoxime 250 mg po bid x 7 days total03/05 add pyridium 100 mg po q 8 hours prn x 3days bladder painmonito r Aggressive behavior 6137 2000 F91.8 pt with aggressive behavior requiring [facility] ER admission( tx consisted of medication s to calm him down including haldol 10 mg, benadryl 50 mg IM, Zyprexa 10 mg IM x 2 and restraints . Nursing reported he also received narcan and evaluated by psych and el psych and ultimately dcd to rehab)psyc h eval and treatmonit or for behaviorss ee anxiety and depression Adult fail ure to thrive syndrome 798892010 R62.7 pt failing to thrive in community in independen t living situation with multiple readmissio ns and ER visitsneed s alternativ e living situation/ planwill look into assisted living this weekteam meeting with pt discussed options and agreeable with plan for > than 1 hour today.steven tor Taking hig h risk medication [id number] 13463 Z91.89 pt ultimately took additional ativan from home plus ativan ordered at rehab and required hospitaliz ation with slurred speech and violent behaviorsp t was weaned off these meds in past and pcp outpt will not prescribe due to HIGH fall risk on ac, will dc oxycodone and wean ativan with plan to start buspar instead.pt agreed in meeting not to take any meds from home while at rehabmonit or closely [id number] Antonieta Brito NP [address] [address] 03/11/2024 10:59:48 03/12/2024 14:33:26 Aggressive behavior 28796643 F91.8 pt doing much better on buspar herenote: pt with aggressive behavior requiring [facility] ER admission( tx consisted of medication s to calm him down including haldol 10 mg, benadryl 50 mg IM, Zyprexa 10 mg IM x 2 and restraints . Nursing reported he also received narcan and evaluated by psych and el psych and ultimately dcd to rehab)psyc h eval and treatmonit or for behaviorss ee anxiety and depression Urinary tr act infectious disease 91023355 N39.0 resolveddx with UTI at [facility] felt r/t traumatic cath, noted urine culture negative and received ceftriaxon e in hospcontce furoxime 250 mg po bid x 7 days totalmonit or Adult fail ure to thrive syndrome 636771916 R62.7 pt failing to thrive in community in independen t living situation with multiple readmissio ns and ER visitsneed s alternativ e living situation/ planwill look into assisted living this weekteam meeting with pt discussed options and agreeable with plan for > than 1 hour today.steven tor Mixed anxi ety and depressive disorder 504105096 F41.8 Mood good today.Cont inueeffexo r 187.5 mg qd03/11 dc lorazepamc ont buspar 10 mg po bid today( working well and calm today)Steven tor mood.Psych consult this week Chronic back pain 586886 002 G89.29 Chronic pain to hip and back, no pain todayIs followed by Dr. Lara for steroid shots.Cont inuesince steriod injections recently pain managed well per pt.contgab apentin 300 mg TID, lidocaine patch, APAP 650 mg q 4 hrs prn.Will not prescribe oxycodone to go home with, as PCP will not rx this. pain controlled with above meds. has done well off oxycodone hereHas F/U with pain management as planned.St ill trying to find new PCP Fall R29.6 hx of recurrent falls on ac currentlyh e is insistent on staying on ac and educated on risk and agreeable to plan to dc dc'd oxycodone and ativan likely contributi ng to fallssee above asthenia Asthenia 14930835 R53.1 Pt feels he is still too weak to manage at home even with multiple increased services in community. PT/OT for strengthen ing, balance, gait training, safety and function.C ontinue fall precaution s with hx of multiple fallsMonit or for safety.Nee ds to work on alternate housing options, he is agreeable to look into at least assisted living facilities in the next week or two. Dislocatio n of hip joint prosthesis 604775562 T84.021D hx ofxray in [facility] ER shows no acute abnormalit y Essential hypertension 39297031 I10 stable.Con tinuemetop rolol 12.5 mg BID, hold for SBP<120 or pulse<60Mo nitor BP and labs Gastroesop hageal reflux disease without esophagitis 523102950 K21.9 No current sxs.Contin uepantopra zole 40 mg qdMonitor GI sxs Gout 26288103 M10.09 No recent flares.Tx prn History of pulmonary embolus 397179463 Z86.711 ContinueEl iquis 5 mg BIDMonitor for sxs.length y discussion on anticoagul ation and multiple falls. He is clear he would like to stay on the ac.will attempt to wean benzo's off and dc oxycodone likely contributi ng to falls Insomnia 630870743 G47.0 9 Continueme latonin 10 mg qhsMonitor sleep patterns Paroxysmal atrial fibrillation 263501244 I48.0 Rate in good control on meds as above.Cont inueeliqui s 5 mg BID for AC.Monitor HR and bleeding risk.with ac: will attempt to wean benzo's off by next week and dc oxycodone likely contributi ng to falls Seasonal allergy 9027529 04 J30.2 No current sxs.Contin ue loratadine 10 mg qd.Monitor Overactive urinary bladder 234457343 N32.81 Stable, urinating good amountsCon tinuetamul osin 0.4 mg qd and gemtesa 75 mg qdMonitor urinary function. Taking hig h risk medication [id number] 09953 Z91.89 pt ultimately took additional ativan from home plus ativan ordered at rehab and required hospitaliz ation with slurred speech and violent behaviorsp t was weaned off these meds in past and pcp outpt will not prescribe due to HIGH fall risk on ac, will dc oxycodone and wean ativan with plan to start buspar instead.pt agreed in meeting not to take any meds from home while at rehabmonit or closely [id number] [facility] [address] 03/13/2024 10:24:59 03/16/2024 12:26:17 Aggressive behavior 57363667 F91.8 pt doing much better on buspar here, pleasant todaynote: pt with aggressive behavior requiring [facility] ER admission( tx consisted of medication s to calm him down including haldol 10 mg, benadryl 50 mg IM, Zyprexa 10 mg IM x 2 and restraints . Nursing reported he also received narcan and evaluated by psych and el psych and ultimately dcd to rehab)psyc h eval and treatmonit or for behaviorss ee anxiety and depression Urinary tr act infectious disease 51385616 N39.0 resolveddx with UTI at [facility] felt r/t traumatic cath, noted urine culture negative and received ceftriaxon e in hospcontce furoxime 250 mg po bid x 7 days totalmonit or Adult fail ure to thrive syndrome 851967970 R62.7 pt failing to thrive in community in independen t living situation with multiple readmissio ns and ER visitsneed s alternativ e living situation/ planwill look into assisted living this week (still has not seen any RESIDENTIAL as of 03/13)steven tor Mixed anxi ety and depressive disorder 376460475 F41.8 Mood good today pleasant.C ontinueeff exor 187.5 mg qdnote: 03/11 dc lorazepamc ont buspar 10 mg po bid today( working well and calm today)Steven tor mood.Psych consult this week Chronic back pain 296260 002 G89.29 Chronic pain to hip and back, no pain todayIs followed by Dr. Lara for steroid shots.Cont inuesince steriod injections recently pain managed well per pt.contgab apentin 300 mg TID, lidocaine patch, APAP 650 mg q 4 hrs prn.note: (Will not prescribe oxycodone to go home with, as PCP will not rx this. pain controlled with above meds. has done well off oxycodone here)Has F/U with pain management as planned.St ill trying to find new PCP Fall R29.6 hx of recurrent falls on ac currentlyh e is insistent on staying on ac and educated on risk and agreeable to plan to dc dc'd oxycodone and ativan likely contributi ng to fallssee above asthenia Asthenia 85900860 R53.1 Pt feels he is still too weak to manage at home even with multiple increased services in community. PT/OT for strengthen ing, balance, gait training, safety and function.C ontinue fall precaution s with hx of multiple fallsMonit or for safety.Nee ds to work on alternate housing options, he is agreeable to look into at least assisted living facilities in the next week or two. Dislocatio n of hip joint prosthesis 427616563 T84.021D hx ofxray in [facility] ER shows no acute abnormalit y Essential hypertension 20234314 I10 stable.Con tinuemetop rolol 12.5 mg BID, hold for SBP<120 or pulse<60Mo nitor BP and labs Gastroesop hageal reflux disease without esophagitis 914087814 K21.9 No current sxs.Contin uepantopra zole 40 mg qdMonitor GI sxs Gout 78616075 M10.09 No recent flares.Tx prn History of pulmonary embolus 087263980 Z86.711 ContinueEl iquis 5 mg BIDMonitor for sxs.on 03/11 lengthy discussion on anticoagul ation and multiple falls. He is clear he would like to stay on the ac.will attempt to wean benzo's off and dc oxycodone likely contributi ng to falls Insomnia 627708581 G47.0 9 Continueme latonin 10 mg qhsMonitor sleep patterns Paroxysmal atrial fibrillation 707030577 I48.0 Rate in good control on meds as above.Cont inueeliqui s 5 mg BID for AC.Monitor HR and bleeding risk.with ac: benzo's weaned off dc'd oxycodone likely contributi ng to falls Peripheral edema 9294948 00 R60.9 pt with 1+ peripheral edema bilaterall y to ankles? related to diet or ? gabapentin which was recently increased, no cardiac s/s today03/13 pt declines TEDSwill decrease salt and not wear tight socks to bedwill increase periods of rest with legs up todaywill monitor for effect [id number] Antonieta Brito NP [address] [address] 03/16/2024 19:54:09 03/23/2024 10:27:23 Peripheral edema 414190839 R60.9 see hpi withnew left swelling to ankleand right ankle resolvedpt denies any ohlvmi06/1 12/20pt declines TEDSwill decrease salt and not wear tight socks to bedwill increase periods of rest with legs up03/16 dc gabapentin , pt doesnt feel it is helping much denies pain to right ankle but very wrczwhe21/ 18start u/s left lower leg ro clotstart xray left ankle ro injury/fxw ill monitor for effect Adult fail ure to thrive syndrome 921012618 R62.7 pt failing to thrive in community in independen t living situation with multiple readmissio ns and ER visitsneed s alternativ e living situation/ planwill look into assisted living this week (still has not seen any RESIDENTIAL as of 03/16)steven tor Mixed anxi ety and depressive disorder 080003958 F41.8 Mood good today pleasant.C ontinueeff exor 187.5 mg qd03/16 increase buspar to 15 mg q am and 10 mg po qhsMonitor mood.Psych consult this week Chronic back pain 746505 002 G89.29 Chronic pain to hip and back, no pain todayIs followed by Dr. Lara for steroid shots.Cont inuesince steriod injections recently pain managed well per pt.cont dc gabapentin 300 mg TIDcont, lidocaine patch, APAP 650 mg q 4 hrs prn.note: (Will not prescribe oxycodone to go home with, as PCP will not rx this. pain controlled with above meds. has done well off oxycodone here)Has F/U with pain management as planned.St ill trying to find new PCP Asthenia 03380699 R53.1 Pt feels he is still too weak to manage at home even with multiple increased services in community. PT/OT for strengthen ing, balance, gait training, safety and function.C ontinue fall precaution s with hx of multiple fallsMonit or for safety.Nee ds to work on alternate housing options, he is agreeable to look into at least assisted living facilities in the next week or two. Insomnia [id number] G47.0 9 Continueme latonin 10 mg qhsMonitor sleep patterns Paroxysmal atrial fibrillation 172122212 I48.0 Rate in good control on meds as above.Cont inueeliqui s 5 mg BID for AC.Monitor HR and bleeding risk.with ac: benzo's weaned off dc'd oxycodone likely contributi ng to falls [id number] Antonieta Brito NP [address] [address] 03/18/2024 12:49:15 03/19/2024 09:15:52 Peripheral edema 036578570 R60.9 see hpi withleft swelling to ankleand right ankle resolvedpt denies any injury U/S and CT scan neg for fracture or clot in er on TEDs stockings on in am/off in pmwill monitor for effect Adult fail ure to thrive syndrome 347946623 R62.7 pt failing to thrive in community in independen t living situation with multiple readmissio ns and ER visitsneed s alternativ e living situation/ planwill look into assisted living this week (still has not seen any [facility]IDENT[facility] as of 11/20)steven tor Mixed anxi ety and depressive disorder 652107912 F41.8 Mood good today pleasant.C ontinueeff exor 187.5 mg qdbuspar 15 mg q am and 10 mg po qhs (recently increased) Monitor mood.Psych consult this week Chronic back pain 733734 002 G89.29 Chronic pain to hip and back, no pain todayIs followed by Dr. Lara for steroid shots.Cont inuesince steriod injections recently pain managed well per pt.contlid ocaine patch, APAP 650 mg q 4 hrs prn.note: (Will not prescribe oxycodone to go home with, as PCP will not rx this. pain controlled with above meds. has done well off oxycodone here)Has F/U with pain management as planned.St ill trying to find new PCP Asthenia 78778510 R53.1 Pt feels he is still too weak to manage at home even with multiple increased services in community. PT/OT for strengthen ing, balance, gait training, safety and function.C ontinue fall precaution s with hx of multiple fallsMonit or for safety.Nee ds to work on alternate housing options, he is agreeable to look into at least assisted living facilities in the next week or two. Insomnia 517870587 G47.0 9 Continueme latonin 10 mg qhsMonitor sleep patterns Paroxysmal atrial fibrillation 664568380 I48.0 Rate in good control on meds as above.Cont inueeliqui s 5 mg BID for AC.Monitor HR and bleeding risk.with ac: benzo's weaned off dc'd oxycodone likely contributi ng to falls [id number] ALEXIS DOLAN [facility] [address] [facility] [place] [address] 03/24/2024 13:46:06 03/25/2024 10:50:21 Peripheral edema 366330009 R60.9 left ankle swelling while here.Imagi ng neg. for clot and fracture.U sing supp. hose, continue as outpt.Elev ate legs when ableMonito r as outpt. Adult fail ure to thrive syndrome 387769755 R62.7 pt failing to thrive in community in independen t living situation with multiple readmissio ns and ER visitsWant s to try to return home again, feels he is now ready.Othe r living options discussed and encouraged during this stay, he will think about but ultimately wants to go home. Mixed anxi ety and depressive disorder 244875836 F41.8 Mood good today pleasant.C ontinue effexor 187.5 mg qdTapered off ativanAdde d:buspar 10 mg q am and 15 mg po qhshydroxy zine 25 mg q 8 hrs prnContinu e all upon discharge. Monitor mood and behaviors as outpt. Chronic back pain 083221 002 G89.29 Chronic pain to hip and back, no pain todayIs followed by Dr. Lara for steroid shots.Cont inuesince steriod injections recently pain managed well per pt.contlid ocaine patch, APAP 650 mg q 4 hrs prn.note: (Will not prescribe oxycodone to go home with, as PCP will not rx this. pain controlled with above meds. has done well off oxycodone here)Has F[facility] Asthenia 36629037 R53.1 Has worked with PT OT, feels ready to go back home.Disch arging 03/25 with support of services. Insomnia 183217601 G47.0 9 Continueme latonin 10 mg qhsbuspar 15 mg q hsMonitor sleep patterns Paroxysmal atrial fibrillation 839359375 I48.0 Rate in good control on meds as above.Cont inueeliqui s 5 mg BID for AC.Monitor HR and bleeding risk. [id number] Smitha Sparks MD [address] [address] 03/31/2024 12:28:43 04/01/2024 10:45:37 Peripheral edema 250823183 R60.9 Improved.N o etiology found.Cont inue supp. hose.[place] te legs when ableMonito r as outpt. Adult fail ure to thrive syndrome 591856850 R62.7 Continuing to encourage pt to consider other living situations as current situation is difficult to manage.He wants to try to go to current home one more time.Consi dering [facility] or at least 1st floor apt. in intermediate. 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 Current meds are effexor 187.5 mg qd, Buspar 10 mg q am and 15 mg qhs, melatonin 20 mg qhs and hydroxyzin e 25 mg q 8 hrs prn.Contin ue all upon discharge. Monitor mood and behaviors as outpt. Chronic back pain 574924 002 G89.29 Chronic pain to hip and back, no pain todayIs followed by Dr. Lara for steroid shots.Cont inue lidocaine patch to hip and back daily, diclofenac gel to right hip TID, APAP 650 mg q 4 hrs prn.Has F/U with pain management as planned.St ill trying to find new PCP Asthenia 93329074 R53.1 Weak at baseline, but feels ready to manage at home.Will continue with home services.N eeds new wheelchair , consulted wit PT about specificat ions and wrote rx.PT/OT prn as outpt.Safe ty precaution s reviewed. Paroxysmal atrial fibrillation 563674957 I48.0 Rate in good control on meds as above.Cont inue eliquis 5 mg BID for AC.Monitor HR and bleeding risk as outpt. Essential hypertension 73280777 I10 In good control.Co ntinue metoprolol 12.5 mg BID, hold for SBP<120 or pulse<60Mo nitor BP and labs as outpt. Gastroesop hageal reflux disease without esophagitis 684231171 K21.9 No current sxs.Contin ue pantoprazo le 40 mg qdMonitor GI sxs as outpt. History of pulmonary embolus 582921233 Z86.711 Continue Eliquis 5 mg BIDMonitor as outpt. Anemia due to blood loss 390355367 D50.0 Continues to be stable.Mon itor as outpt. Seasonal allergy 2626790 04 J30.2 No current sxs.Contin ue cetirizine 10 mg qd.Monitor as outpt. Overactive urinary bladder 456185483 N32.81 Stable.Con tinue tamsulosin 0.4 mg qd and gemtesa 75 mg qdMonitor urinary function as outpt. [id number] Antonieta Brito NP [address] [address] 05/01/2024 08:25:47 05/04/2024 13:28:46 Asthenia 34337096 R53.1 Weak at baseline, is now TTWB with walker from recent ER visitPT/OT eval and treatSafet y precaution s reviewed.s upportive carerec using orthodic as much as possible with leg shortening Adult fail ure to thrive syndrome 204771274 R62.7 Continuing to encourage pt to consider other living situations as current situation is difficult to manage.obie gthy discussion on need to consider [facility] or increased supportive environmen t in near future as he is not able to manage in independen t living with repeated fallssocia l worker to discuss with pthe is currently alert and oriented and able to make his own decisions Mixed anxi ety and depressive disorder 496663535 F41.8 with hx of anxiety and depression with report of vivid dreams lately Do not recommend ativan with hx of misuse and decreased o2 sats in past conteffexo r 187.5 mg qd, Buspar 10 mg q am and 15 mg qhs, melatonin 10 mg qhs and hydroxyzin e 25 mg q 8 hrs prn.Monito r mood and behaviorss upportive prn Chronic back pain 389926 002 G89.29 Chronic pain to hip and backIs followed by Dr. Lara for steroid shots outpt and dr brand when hereContin uelidocain e patch to hip and back daily, diclofenac gel to right hip TID, APAP 650 mg q 4 hrs prn, gabapentin [address] with Dr Cheema for Left hip pain and has appt coming up-he will left nsg knowmonito r Essential hypertension 14080237 I10 In good control.Co ntinueamlo dipine 2.5 mg po qdmetoprol ol 12.5 mg BID, hold for SBP<120 or pulse<60Mo nitor BP and labs as outpt. Paroxysmal atrial fibrillation 853907684 I48.0 Rate in good control on meds as above.Cont inueeliqui s 5 mg BID for AC.Monitor HR and bleeding risk as outpt. Gastroesop hageal reflux disease without esophagitis 650334500 K21.9 No current sxs.Contin uepantopra zole 40 mg qdMonitor GI sxs as outpt. History of pulmonary embolus 431105147 Z86.711 ContinueEl iquis 5 mg BIDMonitor 05/01/24 refer for pulmonolog y consult for report of sob with activity, intermitte nt o2 sats, etc...? sob related to panic/anxi ety or something more Anemia due to blood loss 222609750 D50.0 Continues to be stable.Mon itor cbc and bmp weekly, labs pending today Seasonal allergy 0917021 04 J30.2 No current sxs.Contin uecetirizi ne 10 mg qd.Monitor Overactive urinary bladder 008196938 N32.81 Continueta msulosin 0.4 mg qd and gemtesa 75 mg qdMonitor Fall R29.6 hx of recurrent falls on ac currentlyh e is insistent on staying on ac and educated on risk and agreeable to plan to dc dc'd oxycodone and ativan likely contributi ng to fallssee above asthenia History of total hip arthroplasty 9521792198 06 Z96.649 hx of total left hip arthroplas tyfu with Dr. Cheema as above [id number] Ayo Jeffrey MD [address] [address] 05/02/2024 09:37:26 05/04/2024 13:13:13 Recurrent falls 873404584 R29.6 see HPIrecurre nt falls and hospitaliz ations recentlyPT OT eval and treatmonit or fall risk and need for increased support in communityq uestion opioids and benzo contributi ng to fall risk no longer utilizingc ontinues on AC for a fib - aware of risk benefit History of total hip arthroplasty 9552187227 06 Z96.649 see above with hx of total left hip arthroplas ty and recurrent dislocatio nsf/u with ortho in placefollo w ortho recs and update with concerns Adult fail ure to thrive syndrome 373485354 R62.7 question need to transition to assisted living or LTC with multiple recent hospitaliz ationscurr ently not safe to return home Mixed anxi ety and depressive disorder 324447137 F41.8 stable on out patient medscontin uedpsych eval prnmonitor mood Essential hypertension 94659702 I10 norvasc 2.5 mg qdmetoprol ol 12.5 mg bidmonitor bp and need to titrate Paroxysmal atrial fibrillation 911907999 I48.0 eliquis 5 mg bidmetopro lol 12.5 mg bidmonitor for rate control Gastroesop hageal reflux disease without esophagitis 177595852 K21.9 protonix 40 mg qdmonitor sx relief History of pulmonary embolus 805064228 Z86.711 see abovemaint ained on eliquis Chronic re tention of urine 563068821 R33.8 maintained on flomax 0.4 mg qdmonitor for retentionu rology eval prn Chronic back pain 185851 002 G89.29 now off oxy with concern contributi ng to fall riskfollow ed by ortho Insomnia 253504884 G47.0 9 melatonin 10 mg qhsmonitor for effect Headache 19142164 R51.9 Hearing loss 09704446 H9 0.0 need to shoutconsi keaton need for audiology eval 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 appears mild at baselinemo nitor cognitive function and need to invoke [id number] Antonieta Brito NP [address] [address] 05/08/2024 19:22:41 05/12/2024 09:33:23 Recurrent falls 878358500 R29.6 see HPIrecurre nt falls and hospitaliz ations recentlyPT OT eval and treatmonit or fall risk and need for increased support in communityq uestion opioids and benzo contributi ng to fall risk no longer utilizingc ontinues on AC for a fib - aware of risk benefit History of total hip arthroplasty 4903465573 06 Z96.649 see above with hx of total left hip arthroplas ty and recurrent dislocatio nsTTWBorth otic shoe recommende df/u with ortho in placefollo w ortho recs and update with concerns Paroxysmal atrial fibrillation 369222236 I48.0 eliquis 5 mg bidmetopro lol 12.5 mg bidmonitor for rate control Adult fail ure to thrive syndrome 784946198 R62.7 question need to transition to assisted living or LTC with multiple recent hospitaliz ationscurr ently not safe to return home and looking into [facility] Mixed anxi ety and depressive disorder 558299332 F41.8 stable on out patient medscontin uedpsych eval prnmonitor mood Essential hypertension 19748301 I10 bp stablenorv asc 2.5 mg qdmetoprol ol 12.5 mg bidmonitor bp and need to titrate Minimal co gnitive impairment 529432841 G31.84 appears mild at baselinemo nitor cognitive function and need to invoke Gastroesop hageal reflux disease without esophagitis 619096820 K21.9 protonix 40 mg qdmonitor sx relief Chronic re tention of urine 605199607 R33.8 contflomax 0.4 mg qdmonitor for retentionu rology eval prn Chronic back pain 289517 002 G89.29 off oxy with concern contributi ng to fall riskfollow ed by orthodo not rec restarting Insomnia 441741376 G47.0 9 melatonin 10 mg qhsmonitor for effect Asthenia 98670023 R53.1 Weak at baseline, is now TTWB [...] fallssee above asthenia History of pulmonary embolus 265420655 Z86.711 ContinueEl iquis 5 mg BIDMonitor 05/01/24 refer for pulmonolog y consult for report of sob with activity, intermitte nt o2 sats, etc...? sob related to panic/anxi ety or something more Overactive urinary bladder 991324587 N32.81 Continueta msulosin 0.4 mg qd and gemtesa 75 mg qdMonitor [id number] Antonieta Brito NP [address] [address] 05/15/2024 09:04:20 05/18/2024 16:34:25 History of total hip arthroplasty 2684329940 06 Z96.649 see above with hx of total left hip arthroplas ty and recurrent dislocatio nsTTWB per orders on release from hospitalor topher harper recommende df/u with ortho in place Dr Octavio reaves ortho recs and update with concerns Recurrent falls 94153736 2 R29.6 see HPI for notesrecur rent falls and hospitaliz ations recentlyPT OT eval and treatmonit or fall risk and need for increased support in communityq uestion opioids and benzo contributi ng to fall risk no longer utilizingc ontinues on AC for a fib - aware of risk benefit Paroxysmal atrial fibrillation 275536520 I48.0 conteliqui s 5 mg bidmetopro lol 12.5 mg bidmonitor for rate control Adult fail ure to thrive syndrome 825260843 R62.7 question need to transition to assisted living or LTC with multiple recent hospitaliz ationshe plans to return to independen t living and is his own person, however not recommende dAnother list of [facility] is given to him and he reports he will visit a few Mixed anxi ety and depressive disorder 725148073 F41.8 stable on out patient medscontin uedpsych eval prnmonitor mood Essential hypertension 65614655 I10 bp stable, occ on the higher sidenorvas c 2.5 mg qdmetoprol ol 12.5 mg bidmonitor bp and need to titratewil l leave goal at SBP <150 as he is a high risk Minimal co gnitive impairment 039383600 G31.84 appears mild at baseline and able to make his own decisionsm onitor cognitive function and need to invoke Gastroesop hageal reflux disease without esophagitis 708246794 K21.9 protonix 40 mg qdmonitor sx relief Chronic re tention of urine 814924351 R33.8 contflomax 0.4 mg qdmonitor for retentionu rology eval prn Chronic back pain 527883 002 G89.29 off oxy with concern contributi ng to fall riskfollow ed by orthodo not rec restarting Insomnia 742522406 G47.0 9 melatonin 10 mg qhsmonitor for effect Asthenia 33537838 R53.1 Weak at baseline, is now TTWB with walker from recent ER visitPT/OT eval and treatSafet y precaution s reviewed.s upportive carerec using orthodic as much as possible with leg shortening [id number] Antonieta Brito NP [facility] [address] [place] [address] 05/18/2024 08:51:57 05/18/2024 09:46:36 History of total hip arthroplasty 1411667030 06 Z96.649 see above with hx of total left hip arthroplas ty and recurrent dislocatio nsno surgical interventi on at this timeTTWB per orders on release from hospitalor topher harper recommende df/u with ortho in place Dr Cheema outpt Recurrent falls 90615555 2 R29.6 see HPI for notesrecur rent falls and hospitaliz ations recentlymo nitor fall risk and need for increased support in communityq uestion opioids and benzo contributi ng to fall risk no longer utilizingc ontinue on AC for a fib - aware of risk benefit and wishes to continuefu with pcp outpt Paroxysmal atrial fibrillation 679168579 I48.0 conteliqui s 5 mg bidmetopro lol 12.5 mg bidmonitor for rate control outpt Adult fail ure to thrive syndrome 781551795 R62.7 question need to transition to assisted [...] to thrive in independen t living or [facility] with pcp outpt Mixed anxi ety and depressive disorder 805502874 F41.8 stable on out patient medscontin uedpsych eval prnmonitor mood outptNO longer on ativan and oxycodone and doing well off these meds as they seem to contribute to falls Essential hypertension 63445326 I10 bp stablecont norvasc 2.5 mg qdmetoprol ol 12.5 mg bidmonitor bp and need to titrate outpt with pcpwill leave goal at SBP <150 as he is a high risk Minimal co gnitive impairment 886251766 G31.84 appears mild at baseline and able to make his own decisionsm onitor cognitive function and need to invoke outpt with pcp Gastroesop hageal reflux disease without esophagitis 619151599 K21.9 protonix 40 mg qdmonitor outpt with pcp Chronic re tention of urine 499382481 R33.8 stable herecontfl omax 0.4 mg qdmonitor for retention outpt with pcpurology eval prn outpt Chronic back pain 066751 002 G89.29 off oxy with concern it was contributi ng to fall riskfollow ed by ortho outptfollo wed by pain management outptdo not rec restarting Insomnia 018387425 G47.0 9 melatonin 10 mg qhsmonitor for effect outpt Asthenia 08927822 R53.1 Weak at baseline, is now TTWB with walker from recent ER visitSafet y precaution s at homerec using orthodic as much as possible with leg shortening fu with pcp outpt and monitor with increased services Health Concerns Section Related Observation LastModified by Organization Detai ls LastModified Time None Recorded Concern Status LastModified by Organization Details LastModified Time None Recorded Advance Directives Directive Y: Payers Encounter Date Sequence Insurance Name Policy Number Policy Hood Covered Member ID Hood Member ID Guarantor Name 05/01/2024 2 [place] [id number] Ototniel Salas [id number] Ottoniel Salas 05/01/2024 1 [place] Ottoniel Salas [id number] Ottoniel Maritza 05/02/2024 2 [place] [id number] Ottoniel Salas [id number] Ottoniel Vinelli 05/02/2024 1 [place] Ottoniel Salas [id number] Ottoniel Vinelli 05/08/2024 2 [place] [id number] Ottoniel Salas [id number] Ottoniel Vinelli 05/08/2024 1 [place] [place] Ottoniel Salas [id number] Ottoniel Vinelli 05/15/2024 2 [place] [id number] Ottoniel Salas [id number] Ottoniel Vinelli 05/15/2024 1 [place] Ottoniel Salas [id number] Ottoniel Vinmaura 05/18/2024 2 [place] [id number] Ottoniel Salsa [id number] Ottoniel Salas 05/18/2024 1 [place] [place] Ottoniel Salas [id number] Ottoniel Salas Notes Date Note Type Note Provider Name and Address Organization Details Recorded Time 2024 text/h tml Pt is seen for an initial intake summary . His PMH includes HTN, parox. AFib on [...] sig for afib on xarelto presented to [facility] ER after being found on the floor covered in feces after a fall. of note:also had a fall 2 days prior in the ED and released on 04/27. Essentially workup negative in hospital: with note of left lower ext shortening and externally rotated with chronic deformity at baseline. EKG SR wtih PVCs and nonspecific ST an T wave abnormalities felt non acute in ED. Troponin 10.2. CT cervical spine and CT head shows no acute findings. xray left hip with pelvis resulted in stable chronic abnormalities of the left hip/left hip prosthesis. No acute abnormalities. It wasrecommended TTWB LLE in ED and felt he could benefit from STR to reduce impairments and maximize function with multiple falls and increased level of care highly recommended.While in the ED it was noted the O2 wavered between 85-98% and he refused to wear o2. Respiratory panel negative. and workup negative.While in the ED he received a dose of ativan for anxiety with recommendation to wean off. note: Pt has been back and forth to this facility numerous times due to falls, chronic pain and generalized weakness. He has been suited with a lift recliner, bed rails, pcp appointments, meetings about care and plan in community, and multiple services in past admissions here. He has declined LTC or [facility] in past. On exam, Jay Jay is seen motoring around in a wheelchair. He does appear pale and slightly anxious and states he fell three weeks ago and would like xrays of his hips. O2 sat checked and 98% on RA and HR 85 at this visit. He states he does not like the oxygen today as it is too cold in his nose. He does not seem to remember xrays were done of admission recently. He is requesting a pulmonology consult as he feels sob intermittently for a long time and would like his lungs evaluated. He reports fu with Dr. Cheema 3 weeks ago for his hip and will let nursing know about the fu appt which he thinks is on 05/27/24 for his hip. Note: In past admissions pt has history of decreased o2 sats, increased falls, and misuse of ativan. Will not use ativan on admission here at rehab and will use the hydroxyzine and buspar to manage anxiety. This is discussed with patient and nursing. Spent time discussing plan and need for increased level of care in near future although he does not seem open to this or stopping of blood thinners for multiple falls. Discussed MOLST and wishes to continue DNR/DNI and transfer to hospital as per molst from LAVERNE Brito NP [address] [facility] [address], [address], [place], [address], [facility] 5 11:17:28 2024 text/h tml Patient is a 78 [...] care and therapy Ayo Jeffrey MD [address] [facility] [address], [address], [place], [address], [facility] 5 10:00:40 2024 text/h tml Pt is seen for an acute visit summary. Pt is a 78 yo male with pmh hx above sig for afib on xarelto presented to [facility] ER after being found on the floor covered in feces after a fall. of note:also had a fall 2 days prior in the ED and released on 04/27 with hx of many recent falls and failure to thrive in the community. He was recommended for TTWB LLE and rehab. His PMH includes HTN, parox. 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 On exam, he is seen motoring around in a wheelchair and appears at baseline. He denies any current concerns. He is aware itis recommended to look at some ALFs and social work asked to provide some suggestions. note: fu with Dr. Cheema 3 weeks ago for his hip and will let nursing know about the fu appt which he thinks is on 05/27/24 for his hip.note; pulmonology consult pending Discussed MOLST and wishes to continue DNR/DNI and transfer to hospital as per mol from LAVERNE Brito, [employer] [address] [facility] [address], [address], [place], [address] , [facility] [employer] 5 22:07:00 2024 text/h tml Pt is seen for an acute visit summary. Jay Jay is a 78 yo male with pmh hx above sig for afib on xarelto presented to [facility] ER after being found on the floor [...] discharge to congregate housing on 09/25/2023 from LTC here. Pt is planned for dc on Saturday and stating he has not looked at any [facility]IDENT[facility] as recommended multiple times here and he continues to not follow up with this. gas plant worker gave him a list again about the assisted living facilities and this SUPERVISOR PA[employer] MIXING also reiterated he would be able to have socialization, increased services, and meals which could help. He also states he has a wheelchair at [facility] and [place] but has to pick it up. His [...] his hip. Plan to fu with Dr. Cheema 2 weeks ago for his hip and [...] loss, hx of delirium, and anemia. Discussed MOLST and wishes to continue DNR/DNI and transfer to hospital as per mol from LAVERNE Brito, [employer] [address] [facility], [address], [place], [address], [facility] - [employer] 5 16:58:38 2024 text/h tml Pt is seen for a discharge visit summary . His PMH includes HTN, parox. AFib on [...] sig for afib on xarelto presented to [facility] ER after being found on the floor [...] discharge to congregate housing on 09/25/2023 from [facility] here. An NORBERTO is recommended. While here [...] state he will do it this time .gas plant worker gave him a list again about the assisted living facilities and this SUPER[employer] also reiterated he would be able to have socialization, increased services, and meals which could help. He states he financially is not sure how that would work and he is aware there are consultants at the facilities that could help him understand the finances if he makes an appointment.He also states he has a wheelchair at [facility] but has to pick it up. His old one was thrown out and was not working. An indepth discussion is had about his fall risk and xarelto and he is aware of risk and wishes to continue on the blood thinner at this time. On exam, he is motoring in the wheelchair in [facility]. He denies pain or anxiety and requests a hydroxyzine script as he thinks he is out. Script given. No new concerns from nursing. Plan to fu with Dr. Cheema 2 weeks ago for his hip and will let nursing know about the fu appt which he thinks is on 05/27/24 for his hip.He will also need to fu with his pcp outpt. MOLST:DNR/DNI and transfer to hospital Antonieta Brito NP [address] [facility], [address], [place], [address], [facility] - [facility] 5 09:46:34
--- OUTSIDE RECORDS SUMMARY | 2024-05-20 07:29 | XMS_ITS | Continuity of Care Document ---
Author Organization [facility], 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 Plan of Treatment [...] Time History of total hip arthroplast y [id number] Active 2019 Crista La Puentealfa patel, [facility] 0 12:56:15 Gastroesoph ageal reflux disease without esophagitis 346777620 Active 2019 Crista Ames null, [facility] 0 12:56:19 Mixed anxiety and depressive disorder 596985093 Active 2019 Crista La Puentealfa patel, [facility] 0 12:56:21 Essential hypertensio n 29083070 Active 2019 Crista Otf null, [facility] 0 12:56:23 History of malignant neoplasm of prostate 030656525 Active 2019 Crista Otf null, [facility] 0 12:56:26 COVID-19 508494404 Active 2019 Crista patel, [facility] 0 12:56:41 Anemia due to blood loss 745184107 Active 2019 Crista Vanessa null, [facility] 0 12:58:53 Reduction of dislocation of hip Active 2019 ROSANA VILLEDA NP [address] , [address], [place], [address], [facility] 0 08:57:29 Open wound 581943677 Active 2019 ROSANA VILLEDA NP [address] [facility], [address], [place], [address], [facility] 0 09:01:46 Pulmonary embolism 93214661 Active 2019 ROSANA VILLEDA NP [address] [facility], [address], [place], [address], [facility] 0 09:03:09 Fall Active 2019 ROSANA VILLEDA NP [address] [facility], [address], [place], [address], [facility] 0 10:40:41 Postoperati ve wound infection 88846717 Active 2019 Smitha Sparks MD [address] , [address], [place], [address], [facility] 0 00:12:33 Dislocation of hip joint prosthesis 452199357 Active 2019 Smitha Sparks MD [address] [facility], [address], [place], [address], [facility] 0 00:12:36 Insomnia 345900956 Active 2019 Smitha Sparks MD [address] [place] [address], [address], [place], [address], [facility] 0 00:21:52 Chronic back pain 792851641 Active 2019 Smitha Sparks MD [address] [facility], [address], [place], [address], [facility] 0 00:22:56 Gout 05043503 Active 2019 Priya Le MD [address], [address], [place], [address], [facility] 0 14:03:47 Minimal cognitive impairment 993430407 Active 2019 Smitha Sparks MD [address], [address], [place], [address], [facility] 0 16:44:57 Paroxysmal atrial fibrillatio n 688081532 Active 2022 ALEXIS DOLAN NP [address], [address], [place], [address], [facility] 3 15:10:55 History of pulmonary embolus 746444258 Active 2022 ALEXIS DOLAN NP [address], [address], [place], [address], [facility] 3 15:11:44 Delirium 6358825 Active 2022 ALEXIS DOLAN NP [address], [address], [place], [address], [facility] 3 15:27:16 Surgical incision wound of skin 197322963850 Active 2022 ROSANA VILLEDA NP [address], [address], [place], [address], [facility] 3 14:38:56 Abrasion 991691711 Active 2022 Antonieta Brito NP [address], [address], [place], [address], [facility] 3 10:17:57 Asthenia 86677983 Active 2022 ALEXIS DOLAN NP [address], [address], [place], [address], [facility] 3 16:13:31 Hernia of anterior abdominal wall 292844786 Active 2022 Antonieta Brito NP [address], [address], [place], [address], [facility] 3 16:23:51 Hypoxia 837902401 Active 2022 Antonieta Brito NP [address], [address], [place], [address], [facility] 3 11:25:28 Altered mental status 620493801 Active 2022 Antonieta Brito NP [address], [address], [place], [address], [facility] 3 11:31:49 Loose stool 816719352 Active 2022 Antonieta Brito NP [address], [address], [place], [address], [facility] 3 09:25:29 Headache 04886158 Active 2022 Antonieta Brito NP [address], [address], [place], [address], [facility] 3 09:40:59 Weight decreased 180859853 Active 2022 Antonieta Brito NP [address], [address], [place], [address], [facility] 3 09:42:25 Hemorrhoids 02431720 Active 2022 Antonieta Brito NP [address], [address], [place], [address], [facility] 3 08:25:10 Seasonal allergy 584804396 Active 2023 Antonieta Brito NP [address], [address], [place], [address], [facility] 4 12:19:01 Hearing loss 56521032 Active 2024 Ayo Jeffrey MD [address] [facility], [address], [place], [address], [facility] 5 09:57:58 Problem Notes None recorded. Medical Equipment None Reported. Allergies Allergen ID Allergen Name Allergen Category Reaction Reaction Severity Criticality Documentation Date Start Date Code Code System Note Provider Name and Address Organization Details Recorded Time [id number] 2824e Non-stero idal anti-infl ammatory agent (product) medicatio n Not available Not available Not available 11/17/2019 48747 005 SNOMED Not Available Not Available Not Available [id number] [id number] 2824e hydrochlo rothiazid e medicatio n Not available Not available Not available 11/17/2019 5487 RxNorm Not Available Not Available Not Available [id number] 534235055 [id number] 2824e aspirin medicatio n Not available Not available Not available 11/17/2019 1191 RxNorm Not Available Not Available Not Available [id number] 912278093 [id number] 2824e codeine medicatio n Not available Not available Not available 11/17/2019 2670 RxNorm Not Available Not Available Not Available [id number] 262361938 [id number] 2824e Topamax medicatio n Not available Not available Not available 11/17/2019 56042 3 RxNorm Not Available Not Available Not Available [id number] 735217254 [id number] 2824e Soma medicatio n Not available Not available Not available 11/17/2019 20964 2 RxNorm Not Available Not Available Not [...] Updated DateTime 5 182.88 cm 29.6 kg/m2 97119.1 4 g 78 /min 18 /min 98.1 [degF] 95 % 95 % 132 mm[Hg] 70 mm[Hg] Antonieta Brito NP [address] [facility], [address], [place], [address] - [facility] 5 21:51:05 Social History Question Answer Notes LastModified by Organizat ion Details LastModified Time Tobacco Smoking Status Former Smoker Quit 40 years ago Not Available [employer] 02/23/2020 03:13:21 Do You Have An Advance Directive? Yes [email or web address] Information not available 09/27/2022 What Is Your Level Of Alcohol Consumption? None [id number] Information not available 02/23/2020 How Much Tobacco Do You Chew? None [id number] Information not available 02/23/2020 What Is Your Code Status? DNR/DNI No Dialysis, No Artificial Nutrition [email or web address] Information not available 09/27/2022 Do You Or Have You Ever Used E-cigarettes Or Vape? Never Used Electronic Cigarettes [id number] Information not available 02/23/2020 Where Do You Live? Apartment Lives Alone [email or web address] Information not available 11/19/2023 Legal Guardian? 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 05/01/2024 [email or web address] Information not available 05/01/2024 Do You Have An Out Of Hospital DNR? Yes Information not available 09/28/2022 What Is Your Relationship Status? Information not available 09/28/2022 Do You Or Have You Ever Used Smokeless Tobacco? Never Used Smokeless Tobacco [id number] Information not available 02/23/2020 Do You Use Any Illicit Or Recreational Drugs? No [email or web address] Information not available 09/27/2022 Has Tobacco Cessation Counseling Been Provided? No N/a As Pt No Longer Smokes Information not available 09/28/2022 How Many Years Have You Smoked Tobacco? 15 [id number] Information not available 02/23/2020 Do You Or Have You Ever Used Any Other Forms Of Tobacco Or Nicotine? No [email or web address] Information not available 09/27/2022 Sex: Unknown Functional Status None recorded. Mental Status None recorded. Family History Relationship Description Onset Age of this Age Resolved Age Notes LastModified by Organization Details LastModified Time Mother Malignant tumor of breast [email or web address] Not available 2022 14:44:55 Mother Malignant tumor of lung Not available 2022 14:45:08 Notes:father: , dm, ARF, glaucoma Medical History No medical history recorded. Immunizations Vaccine Type Date Status Note Provider Nam e and Address Organization Details Recorded Time Influenza, adjuvanted, quadrivalent, PF 3 completed Page Dugan [facility] 06/14/2023 16:55:16 Influenza, adjuvanted, quadrivalent, PF 2 completed Page Dugan [facility] 06/14/2023 16:56:38 Influenza, split virus, quadrivalent, preservative 0 completed Ana Elliott [facility] 02/19/2020 11:13:50 SARS-COV-2 (COVID-19) vaccine, UNSPECIFIED 3 completed Ileana Amaya [facility] 11/19/2023 10:17:34 Td(adult) unspecified formulation 8 completed Ileana Amaya [facility] 11/22/2023 15:52:58 Pneumococcal conjugate PCV 13 7 completed Ileana Jose Luis [facility] 11/22/2023 15:53:12 pneumococcal polysaccharide PPV23 4 completed Ileana Jose Luis [facility] 11/22/2023 15:53:30 pneumococcal polysaccharide PPV23 8 completed Ileana Amaya [facility] 11/22/2023 15:53:36 pneumococcal polysaccharide PPV23 0 completed Ileana Amaya [facility] 11/22/2023 15:53:43 SARS-COV-2 (COVID-19) vaccine, UNSPECIFIED 1 completed Ileana Amaya [facility] 11/22/2023 15:54:14 SARS-COV-2 (COVID-19) vaccine, UNSPECIFIED 1 completed Ilaena Amaya [facility] 11/22/2023 15:54:22 SARS-COV-2 (COVID-19) vaccine, UNSPECIFIED 1 completed Ileana Amaya [facility] 11/22/2023 15:54:39 zoster, unspecified formulation 8 completed Ileana Amaya [facility] 11/22/2023 15:55:00 zoster, unspecified formulation 8 completed Ileana Amaya [facility] 11/22/2023 15:55:12 Past Encounters Encounter ID Performer Location Encounter Start Date Encounter Closed Date Diagnosis/Indication Diagnosis SNOMED-CT Code Diagnosis ICD10 Code Diagnosis Note [id number] Antonieta Brito NP [facility] [address] [place] [address] 05/01/2024 08:25:47 05/04/2024 13:28:46 Asthenia 24138452 R53.1 Weak at baseline, is now TTWB with walker from recent ER visitPT/OT eval and treatSafet y precaution s reviewed.s upportive carerec using orthodic as much as possible with leg shortening Adult fail ure to thrive syndrome 931708661 R62.7 Continuing to encourage pt to consider [...] decisions Mixed anxi ety and depressive disorder 207516810 F41.8 with hx of anxiety and depression with report of vivid dreams lately Do not recommend ativan with hx of misuse and decreased o2 sats in past conteffexo r 187.5 mg qd, Buspar 10 mg q am and 15 mg qhs, melatonin 10 mg qhs and hydroxyzin e 25 mg q 8 hrs prn.Monito r mood and behaviorss upportive prn Chronic back pain 915690 002 G89.29 Chronic pain to hip and [...] will left nsg knowmonito r Essential hypertension 38632588 I10 In good control.Co ntinueamlo dipine 2.5 mg po qdmetoprol ol 12.5 mg BID, hold for SBP<120 or pulse<60Mo nitor BP and labs as outpt. Paroxysmal atrial fibrillation 366012284 I48.0 Rate in good control on meds as above.Cont inueeliqui s 5 mg BID for AC.Monitor HR and bleeding risk as outpt. Gastroesop hageal reflux disease without esophagitis 220937617 K21.9 No current sxs.Contin uepantopra zole 40 mg qdMonitor GI sxs as outpt. History of pulmonary embolus 528981788 Z86.711 ContinueEl iquis 5 mg BIDMonitor 05/01/24 refer for pulmonolog y consult for report of sob with activity, intermitte nt o2 sats, etc...? sob related to panic/anxi ety or something more Anemia due to blood loss 853696421 D50.0 Continues to be stable.Mon itor cbc and bmp weekly, labs pending today Seasonal allergy 8986072 04 J30.2 No current sxs.Contin uecetirizi ne 10 mg qd.Monitor Overactive urinary bladder 223683065 N32.81 Continueta msulosin 0.4 mg qd and gemtesa 75 mg qdMonitor Fall 3503034 R29.6 hx of recurrent falls on ac currentlyh e is insistent on staying on ac and educated on risk and agreeable to plan to dc dc'd oxycodone and ativan likely contributi ng to fallssee above asthenia History of total hip arthroplasty 4016116059 06 Z96.649 hx of total left hip arthroplas tyfu with Dr. Stover as above [id number] Ayo Jeffrey MD [address] [address] 05/02/2024 09:37:26 05/04/2024 13:13:13 Recurrent falls 556871821 R29.6 see HPIrecurre nt falls and hospitaliz ations recentlyPT OT eval and treatmonit or fall risk and need for increased support in communityq uestion opioids and benzo contributi ng to fall risk no longer utilizingc ontinues on AC for a fib - aware of risk benefit History of total hip arthroplasty 2172435904 06 Z96.649 see above with hx of total left hip arthroplas ty and recurrent dislocatio nsf/u with ortho in placefollo w ortho recs and update with concerns Adult fail ure to thrive syndrome 386369888 R62.7 question need to transition to assisted living or LTC with multiple recent hospitaliz ationscurr ently not safe to return home Mixed anxi ety and depressive disorder 546139323 F41.8 stable on out patient medscontin uedpsych eval prnmonitor mood Essential hypertension 27054488 I10 norvasc 2.5 mg qdmetoprol ol 12.5 mg bidmonitor bp and need to titrate Paroxysmal atrial fibrillation 543496234 I48.0 eliquis 5 mg bidmetopro lol 12.5 mg bidmonitor for rate control Gastroesop hageal reflux disease without esophagitis 619927487 K21.9 protonix 40 mg qdmonitor sx relief History of pulmonary embolus 614489023 Z86.711 see abovemaint ained on eliquis Chronic re tention of urine 990323280 R33.8 maintained on flomax 0.4 mg qdmonitor for retentionu rology eval prn Chronic back pain 024665 002 G89.29 now off oxy with concern contributi ng to fall riskfollow ed by ortho Insomnia 684981676 G47.0 9 melatonin 10 mg qhsmonitor for effect Headache 25390497 R51.9 Hearing loss 61444899 H9 0.0 need to shoutconsi keaton need for audiology eval Minimal co gnitive impairment 007418817 G31.84 appears mild at baselinemo nitor cognitive function and need to invoke [id number] Antonieta Brito NP [address] [address] 05/08/2024 19:22:41 05/12/2024 09:33:23 Recurrent falls 156221883 R29.6 see HPIrecurre nt falls and hospitaliz ations recentlyPT OT eval and treatmonit or fall risk and need for increased support in communityq uestion opioids and benzo contributi ng to fall risk no longer utilizingc ontinues on AC for a fib - aware of risk benefit History of total hip arthroplasty 8000006538 06 Z96.649 see above with hx of total left hip arthroplas ty and recurrent dislocatio nsTTWBorth otic shoe recommende df/u with ortho in placefollo w ortho recs and update with concerns Paroxysmal atrial fibrillation 102212274 I48.0 eliquis 5 mg bidmetopro lol 12.5 mg bidmonitor for rate control Adult fail ure to thrive syndrome 341119276 R62.7 question need to transition to assisted living or LTC with multiple recent hospitaliz ationscurr ently not safe to return home and looking into [facility] Mixed anxi ety and depressive disorder 660637753 F41.8 stable on out patient medscontin uedpsych eval prnmonitor mood Essential hypertension 06588670 I10 bp stablenorv asc 2.5 mg qdmetoprol ol 12.5 mg bidmonitor bp and need to titrate Minimal co gnitive impairment 163787681 G31.84 appears mild at baselinemo nitor cognitive function and need to invoke Gastroesop hageal reflux disease without esophagitis 585594983 K21.9 protonix 40 mg qdmonitor sx relief Chronic re tention of urine 060813991 R33.8 contflomax 0.4 mg qdmonitor for retentionu rology eval prn Chronic back pain 508504 002 G89.29 off oxy with concern contributi ng to fall riskfollow ed by orthodo not rec restarting Insomnia 759800653 G47.0 9 melatonin 10 mg qhsmonitor for effect Asthenia 86491349 R53.1 Weak at baseline, is now TTWB [...] fallssee above asthenia History of pulmonary embolus 560590008 Z86.711 ContinueEl iquis 5 mg BIDMonitor 05/01/24 refer for pulmonolog y consult for report of sob with activity, intermitte nt o2 sats, etc...? sob related to panic/anxi ety or something more Overactive urinary bladder 235865377 N32.81 Continueta msulosin 0.4 mg qd and gemtesa 75 mg qdMonitor Health Concerns Section Related Observation LastModified by Organization Detai ls LastModified Time None Recorded Concern Status LastModified by Organization Details LastModified Time None Recorded Payers Encounter Date Sequence Insurance Name Policy Number Policy Hood Covered Member ID Hood Member ID Guarantor Name 05/08/2024 2 [place] [id number] Ottoniel Salas [id number] Ottoniel Salas 05/08/2024 1 [place] [employer] Ottoniel Salas [id number] Ottoniel Salas Notes Date Note Type Note Provider Name and Address Organization Details Recorded Time 05/08/2024 text/html Pt is seen for a n acute visit summary. Pt is a 78 yo male with pmh hx above sig for afib on xarelto presented to [facility] ER after being found on the floor [...] provide some suggestions. note: fu with Dr. Stover 3 weeks ago for his hip and will let nursing know about the fu appt which he thinks is on 05/27/24 for his hip.note; pulmonology consult pending Discussed TATE and wishes to continue DNR/DNI and transfer to hospital as per tate from LAVERNE Brito NP [address] [place] [address], [address], [place], [address], [facility] 05/08/2024 22:07:00
--- OUTSIDE RECORDS SUMMARY | 2024-05-20 07:29 | XMS_ITS | Continuity of Care Document ---
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 Name Role Phone DIYA MARIN - 2ND [...] Time History of total hip arthroplast y [id number] Active 2019 Crista Carrolltonalfa patel, [facility] 0 12:56:15 Gastroesoph ageal reflux disease without esophagitis 824003126 Active 2019 Crista Ames null, [facility] 0 12:56:19 Mixed anxiety and depressive disorder 223961570 Active 2019 Crista Carrolltonalfa patel, [facility] 0 12:56:21 Essential hypertensio n 74133344 Active 2019 Crista Otf null, [facility] 0 12:56:23 History of malignant neoplasm of prostate 626373661 Active 2019 Crista Otf null, [facility] 0 12:56:26 COVID-19 100239722 Active 2019 Crista patel, [facility] 0 12:56:41 Anemia due to blood loss 923900299 Active 2019 Crista Vanessa null, [facility] 0 12:58:53 Reduction of dislocation of hip Active 2019 ROSANA VILLEDA NP [address], [place], [address], [facility] 0 08:57:29 Open wound 730102020 Active 2019 ROSANA VILLEDA NP [address], [address], [place], [address], [facility] 0 09:01:46 Pulmonary embolism 34554208 Active 2019 ROSANA VILLEDA NP [address], [address], [place], [address], [facility] 0 09:03:09 Fall Active 2019 ROSANA VILLEDA NP [address], [address], [place], [address], [facility] 0 10:40:41 Postoperati ve wound infection 82864786 Active 2019 Smitha Sparks MD [address] , [address], [place], [address], [facility] 0 00:12:33 Dislocation of hip joint prosthesis 598597531 Active 2019 Smitha Sparks MD [address], [address], [place], [address], [facility] 0 00:12:36 Insomnia 138481230 Active 2019 Smitha Sparks MD [address] [place] [address], [address], [place], [address], [facility] 0 00:21:52 Chronic back pain 206222739 Active 2019 Smitha Sparks MD [address], [address], [place], [address], [facility] 0 00:22:56 Gout 98438950 Active 2019 Priya Le MD [address], [address], [place], [address], [facility] 0 14:03:47 Minimal cognitive impairment 041811022 Active 2019 Smitha Sparks MD [address], [address], [place], [address], [facility] 0 16:44:57 Paroxysmal atrial fibrillatio n 576920033 Active 2022 ALEXIS DOLAN NP [address], [address], [place], [address], [facility] 3 15:10:55 History of pulmonary embolus 014912398 Active 2022 ALEXIS DOLAN NP [address], [address], [place], [address], [facility] 3 15:11:44 Delirium 0393756 Active 2022 ALEXIS DOLAN NP [address], [address], [place], [address], [facility] 3 15:27:16 Surgical incision wound of skin 588582495548 Active 2022 ROSANA VILLEDA NP [address], [address], [place], [address], [facility] 3 14:38:56 Abrasion 875662910 Active 2022 Antonieta Brito NP [address], [address], [place], [address], [facility] 3 10:17:57 Asthenia 99597771 Active 2022 ALEXIS DOLAN NP [address], [address], [place], [address], [facility] 3 16:13:31 Hernia of anterior abdominal wall 979791056 Active 2022 Antonieta Brito NP [address], [address], [place], [address], [facility] 3 16:23:51 Hypoxia 585503411 Active 2022 Antonieta Brito NP [address], [address], [place], [address], [facility] 3 11:25:28 Altered mental status 407019967 Active 2022 Antonieta Brito NP [address], [address], [place], [address], [facility] [employer] [facility] 3 11:31:49 Loose stool 220742805 Active 2022 Antonieta Brito NP [address], [address], [place], [address], [facility] [facility] 3 09:25:29 Headache 07880298 Active 2022 Antonieta Brito NP [address], [address], [place], [address], [facility] [facility] 3 09:40:59 Weight decreased 178490192 Active 2022 Antonieta Brito NP [address], [address], [place], [address], [facility] [facility] 3 09:42:25 Hemorrhoids 65946921 Active 2022 Antonieta Brito NP [address], [address], [place], [address], [facility] 3 08:25:10 Seasonal allergy 128813175 Active 2023 Antonieta Brito NP [address], [address], [place], [address], [facility] 4 12:19:01 Hearing loss 56343580 Active 2024 Ayo Jeffrey MD [address], [address], [place], [address], [facility] [employer] [facility] 5 09:57:58 Problem Notes None recorded. Medical Equipment None Reported. Allergies Allergen ID Allergen Name Allergen Category Reaction Reaction Severity Criticality Documentation Date Start Date Code Code System Note Provider Name and Address Organization Details Recorded Time [id number] 2824e Non-stero idal anti-infl ammatory agent (product) medicatio n Not available Not available Not available 11/17/2019 89948 005 SNOMED Not Available Not Available Not Available [id number] 063507513 [id number] 2824e hydrochlo rothiazid e medicatio n Not available Not available Not available 11/17/2019 5487 RxNorm Not Available Not Available Not Available [id number] 9252576k2 2824e aspirin medicatio n Not available Not available Not available 11/17/2019 1191 RxNorm Not Available Not Available Not Available [id number] 1156787p0 2824e codeine medicatio n Not available Not available Not available 11/17/2019 2670 RxNorm Not Available Not Available Not Available [id number] [id number] 2824e Topamax medicatio n Not available Not available Not available 11/17/2019 17597 3 RxNorm Not Available Not Available Not Available [id number] [id number] 2824e Soma medicatio n Not available Not available Not available 11/17/2019 40818 2 RxNorm Not Available Not Available Not [...] Details Last Updated DateTime 5 182.88 cm 74108.5 8 g 28.8 kg/m2 95 /min 16 /min 97.6 [degF] 94 % 94 % 2 L/min 135 mm[Hg] 93 mm[Hg] Antonieta Brito NP [address], [address], [place], [address], [facility] 5 09:07:31 Social History Question Answer Notes LastModified by Organizat ion Details LastModified Time Tobacco Smoking Status Former Smoker Quit 40 years ago Not Available [employer] 02/23/2020 03:13:21 Do You Have An Advance Directive? Yes [email or web address] Information not available 09/27/2022 What Is Your Level Of Alcohol Consumption? None [id number] Information not available 02/23/2020 How Much Tobacco Do You Chew? None [id number] Information not available 02/23/2020 What Is Your Code Status? DNR/DNI No Dialysis, No Artificial Nutrition Information not available 09/27/2022 Do You Or Have You Ever Used E-cigarettes Or Vape? Never Used Electronic Cigarettes [id number] Information not available 02/23/2020 Where Do You Live? Apartment Lives Alone [email or web address] Information not available 11/19/2023 Legal Guardian? No Informati on not available 09/28/2022 Do You Have A Medical Power Of Uniform Designer? Yes Has HCP, Not Invoked Information not available 09/28/2022 What Was The Date Of Your Most Recent Tobacco Screening? 05/01/2024 [email or web address] Information not available 05/01/2024 Do You Have An Out Of Hospital DNR? Yes Information not available 09/28/2022 What Is Your Relationship Status? Information not available 09/28/2022 Do You Or Have You Ever Used Smokeless Tobacco? Never Used Smokeless Tobacco [id number] Information not available 02/23/2020 Do You Use Any Illicit Or Recreational Drugs? No [email or web address] Information not available 09/27/2022 Has Tobacco Cessation Counseling Been Provided? No N/a As Pt No Longer Smokes Information not available 09/28/2022 How Many Years Have You Smoked Tobacco? 15 [id number] Information not available 02/23/2020 Do You Or Have You Ever Used Any Other Forms Of Tobacco Or Nicotine? No [email or web address] Information not available 09/27/2022 Sex: Unknown Functional Status None recorded. Mental Status None recorded. Family History Relationship Description Onset Age of this Age Resolved Age Notes LastModified by Organization Details LastModified Time Mother Malignant tumor of breast [email or web address] Not available 2022 14:44:55 Mother Malignant tumor of lung [email or web address] Not available 2022 14:45:08 Notes:father: , dm, ARF, glaucoma Medical History No medical history recorded. Immunizations Vaccine Type Date Status Note Provider Nam e and Address Organization Details Recorded Time Influenza, adjuvanted, quadrivalent, PF 3 [facility] 16:55:16 Influenza, adjuvanted, quadrivalent, PF 2 completed [facility] 16:56:38 Influenza, split virus, quadrivalent, preservative 0 completed [facility] 11:13:50 SARS-COV-2 (COVID-19) vaccine, UNSPECIFIED 3 completed Ileana Amaya [facility] 11/19/2023 10:17:34 Td(adult) unspecified formulation 8 completed Ileana Amaya [facility] 11/22/2023 15:52:58 Pneumococcal conjugate PCV 13 7 completed Ileana Amaya [facility] 11/22/2023 15:53:12 pneumococcal polysaccharide PPV23 4 completed Ileana Amaya [facility] 11/22/2023 15:53:30 pneumococcal polysaccharide PPV23 8 completed Ileana Amaya [facility] 11/22/2023 15:53:36 pneumococcal polysaccharide PPV23 0 completed Ileana Amaya [facility] 11/22/2023 15:53:43 SARS-COV-2 (COVID-19) vaccine, UNSPECIFIED 1 completed [facility] 15:54:14 SARS-COV-2 (COVID-19) vaccine, UNSPECIFIED 1 completed Ileana Amaya [facility] 11/22/2023 15:54:22 SARS-COV-2 (COVID-19) vaccine, UNSPECIFIED 1 completed Ileana Amaya [facility] 11/22/2023 15:54:39 zoster, unspecified formulation 8 completed Ileana [facility] 11/22/2023 15:55:00 zoster, unspecified formulation 8 completed Ileana [facility] 11/22/2023 15:55:12 Past Encounters Encounter ID Performer Location Encounter Start Date Encounter Closed Date Diagnosis/Indication Diagnosis SNOMED-CT Code Diagnosis ICD10 Code Diagnosis Note [id number] Smitha Sparks MD [facility] [address] [place] [address] 03/31/2024 12:28:43 04/01/2024 10:45:37 Peripheral edema 529892229 R60.9 Improved.N o etiology found.Cont inue supp. hose.Valencia te legs when ableMonito r as outpt. Adult fail ure to thrive syndrome 127312306 R62.7 Continuing to encourage pt to consider other living situations as current situation is difficult to manage.He wants to try to go to current home one more time.Consi dering [facility] or at least 1st floor apt. in long term. Mixed anxi ety and depressive disorder 404233875 F41.8 Mood good today.Some med changes have been made since admission. Current meds are effexor 187.5 mg qd, Buspar 10 mg q am and 15 mg qhs, melatonin 20 mg qhs and hydroxyzin e 25 mg q 8 hrs prn.Contin ue all upon discharge. Monitor mood and behaviors as outpt. Chronic back pain 806699 002 G89.29 Chronic pain to hip and back, no pain todayIs followed by Dr. Lara for steroid shots.Cont inue lidocaine patch to hip and back daily, diclofenac gel to right hip TID, APAP 650 mg q 4 hrs prn.Has F/U with pain management as planned.St ill trying to find new PCP Asthenia 78833955 R53.1 Weak at baseline, but feels ready to manage at home.Will continue with home services.N eeds new wheelchair , consulted wit PT about specificat ions and wrote rx.PT/OT prn as outpt.Safe ty precaution s reviewed. Paroxysmal atrial fibrillation 570354028 I48.0 Rate in good control on meds as above.Cont inue eliquis 5 mg BID for AC.Monitor HR and bleeding risk as outpt. Essential hypertension 99669128 I10 In good control.Co ntinue metoprolol 12.5 mg BID, hold for SBP<120 or pulse<60Mo nitor BP and labs as outpt. Gastroesop hageal reflux disease without esophagitis 467339108 K21.9 No current sxs.Contin ue pantoprazo le 40 mg qdMonitor GI sxs as outpt. History of pulmonary embolus 711204511 Z86.711 Continue Eliquis 5 mg BIDMonitor as outpt. Anemia due to blood loss 006443394 D50.0 Continues to be stable.Mon itor as outpt. Seasonal allergy 8818994 04 J30.2 No current sxs.Contin ue cetirizine 10 mg qd.Monitor as outpt. Overactive urinary bladder 138832461 N32.81 Stable.Con tinue tamsulosin 0.4 mg qd and gemtesa 75 mg qdMonitor urinary function as outpt. [id number] Antonieta Brito NP [address] [address] 05/01/2024 08:25:47 05/04/2024 13:28:46 Asthenia 98524728 R53.1 Weak at baseline, is now TTWB with walker from recent ER visitPT/OT eval and treatSafet y precaution s reviewed.s upportive carerec using orthodic as much as possible with leg shortening Adult fail ure to thrive syndrome 685213110 R62.7 Continuing to encourage pt to consider [...] decisions Mixed anxi ety and depressive disorder 346909226 F41.8 with hx of anxiety and depression with report of vivid dreams lately Do not recommend ativan with hx of misuse and decreased o2 sats in past conteffexo r 187.5 mg qd, Buspar 10 mg q am and 15 mg qhs, melatonin 10 mg qhs and hydroxyzin e 25 mg q 8 hrs prn.Monito r mood and behaviorss upportive prn Chronic back pain 616429 002 G89.29 Chronic pain to hip and [...] will left nsg knowmonito r Essential hypertension 78649278 I10 In good control.Co ntinueamlo dipine 2.5 mg po qdmetoprol ol 12.5 mg BID, hold for SBP<120 or pulse<60Mo nitor BP and labs as outpt. Paroxysmal atrial fibrillation 359846624 I48.0 Rate in good control on meds as above.Cont inueeliqui s 5 mg BID for AC.Monitor HR and bleeding risk as outpt. Gastroesop hageal reflux disease without esophagitis 261400474 K21.9 No current sxs.Contin uepantopra zole 40 mg qdMonitor GI sxs as outpt. History of pulmonary embolus 298068258 Z86.711 ContinueEl iquis 5 mg BIDMonitor 05/01/24 refer for pulmonolog y consult for report of sob with activity, intermitte nt o2 sats, etc...? sob related to panic/anxi ety or something more Anemia due to blood loss 755774818 D50.0 Continues to be stable.Mon itor cbc and bmp weekly, labs pending today Seasonal allergy 5675803 04 J30.2 No current sxs.Contin uecetirizi ne 10 mg qd.Monitor Overactive urinary bladder 323191040 N32.81 Continueta msulosin 0.4 mg qd and gemtesa 75 mg qdMonitor Fall R29.6 hx of recurrent falls on ac currentlyh e is insistent on staying on ac and educated on risk and agreeable to plan to dc dc'd oxycodone and ativan likely contributi ng to fallssee above asthenia History of total hip arthroplasty 4260614064 06 Z96.649 hx of total left hip arthroplas tyfu with Dr. Stover as above Health Concerns Section Related Observation LastModified by Organization Detai ls LastModified Time None Recorded Concern Status LastModified by Organization Details LastModified Time None Recorded Payers Encounter Date Sequence Insurance Name Policy Number Policy Hood Covered Member ID Hood Member ID Guarantor Name 05/01/2024 2 [place] [id number] Ottoniel Salas [id number] Ottoniel Salas 05/01/2024 1 [place] [employer] Ottoniel Salas [id number] Ottoniel Salas Notes Date Note Type Note Provider Name and Address Organization Details Recorded Time 05/01/2024 text/html Pt is seen for a n initial intake summary. His PMH includes HTN, parox. AFib [...] sig for afib on xarelto presented to [facility] ER after being found on the floor [...] admissions here. He has declined LTC or LONGTERM in past. On exam, Jay Jay is [...] lungs evaluated. He reports fu with Dr. Stover 3 weeks ago [...] DNR/DNI and transfer to hospital as per zion from LAVERNE Brito, DIONICIO [address], [address], [place], [address], [facility] [employer] 05/01/2024 11:17:28
[2024-05-20] MEDS: LORazepam 2 MG/ML VIAL 1 MG IVPUSH (07:44)
--- NOTE | 2024-05-20 07:46 | PC.NURSE ---
Arrived from home via EMS. alert and oriented, reporting anxiety, and sob. Patient found by ems with apt covered in feces, sating 70% on RA, placed by ems on cpap. Upon arrival to ed patient in afib with rvr, taken off cpap by respiratory and placed on 2 liters NC. Patient anxious requesting medication for anxiety, medicated per jun. Respiratory at bedside to place patient on high flow
[2024-05-20 07:59] LABS: Appearance Urine Clear; Color Urine Yellow; Glucose Urine UA Negative (Negative); Leukocyte Esterase Urine Negative (Negative); Nitrite Urine Negative (Negative); PH 5.5 (5.0-9.0); Specific Gravity - Urine 1.015 (1.005-1.025); Urine Blood Negative (Negative); Urine Ketones Negative (Negative); Urine Protein Negative (Neg-Trace)
[2024-05-20 08:05] LABS: Amphetamine Screen Urine Not Detected (Not Detect); Barbiturates, Urine Not Detected (Not Detect); Benzodiazepines Screen Urine Not Detected (Not Detect); Buprenorphine Scr Not Detected (Not Detect); Cannabinoid Screen Urine Not Detected (Not Detect); Cocaine Screen Urine Not Detected (Not Detect); Fentanyl, urine Not Detected (Not Detect); Methadone Screen, Urine Not Detected (Not Detect); Opiate Screen Urine Not Detected (Not Detect); Oxycodone Screen Urine Not Detected (Not Detect); Phencyclidine Screen Urine Not Detected (Not Detect)
[2024-05-20 08:33] LABS: MANUAL DIFF FLAG NO
[2024-05-20 08:38] LABS: Basophils Percent Auto 0.3 % (0-2); Eosinophils Percent Auto 0.1 % (0-4); Hematocrit 31.3 % (42.0-52.0); Hemoglobin 9.4 g/dl (14.0-18.0); Imm Gran Abs Auto 0.05 X10*3/uL (0.00-0.03); Imm Gran Pct Auto 0.6 % (0.0-0.4); Lymphocytes Absolute Auto 1.3 X10*3/uL (1.2-4.9); Lymphocytes Percent Auto 16.1 % (20-40); Mean Corpuscular Hemoglobin 21.6 pg (27.0-33.0); Mean Platelet Volume 9.5 fL (9.4-12.4); Monocytes Absolute Auto 1.3 X10*3/uL (0.1-1.2); Monocytes Percent Auto 16.3 % (2-11); Neutrophils Absolute Auto 5.3 x10*3/uL (2.0-8.3); Neutrophils Percent Auto 66.6 % (45-73); Platelet Count 398 X10*3/uL (160-400); Red Blood Count 4.35 X10*6/uL (4.60-5.80); Red Cell Distribution Width 18.7 % (11.0-16.0); SCAN SMEAR FLAG 1
[2024-05-20 08:40] LABS: Venous Blood Gas Refer to POC result
[2024-05-20 08:41] LABS: VBG Base Excess -3.8 mmol/L; VBG HCO3 22 mmol/L (22-26); VBG O2 % Saturation < 30.0 %; VBG pCO2 45 mmHg; VBG pH 7.29 (7.32-7.43); VBG pO2 19 mmHg
[2024-05-20 08:50] LABS: INTERNATIONAL NORM RATIO 1.2 (0.9-1.1); Prothrombin Time 13.8 SEC (10.9-12.4)
[2024-05-20 08:52] LABS: D Dimer High Sensitivity 332 NG/ML
[2024-05-20 08:58] LABS: Alanine Aminotransferase 12 U/L (0-40); Albumin Level 3.7 g/dL (3.5-5.0); Alkaline Phosphatase 62 U/L (39-117); Anion Gap 12 (12-20); Aspartate Amino Transferase 24 U/L (5-37); Bilirubin Direct 0.3 mg/dL (0.0-0.5); Bilirubin Total 0.6 mg/dL (0.0-1.0); Blood Urea Nitrogen 23 mg/dL (9-16); Calcium 8.7 mg/dL (8.4-10.2); Carbon Dioxide 21 mmol/L (22-29); Chloride 109 mmol/L (96-108); Estimated Glomerular Filt Rate > 60; Glucose Random 91 mg/dL (60-115); Lipase 8 U/L (8-78); Potassium 4.1 mmol/L (3.3-5.1); Sodium 138 mmol/L (135-145); Total Protein 6.9 g/dL (6.5-8.0)
[2024-05-20 09:00] LABS: Influenza A PCR NEGATIVE (Negative); Influenza B PCR NEGATIVE (Negative); Resp Syncy Virus RNA Qual PCR NEGATIVE (Negative); SARS COV2 PCR INHOUSE NEGATIVE (Negative)
[2024-05-20 09:06] LABS: Troponin-I High Sensitivity 8.8 ng/L (<3.5-35.0)
[2024-05-20 09:11] LABS: B Type Natriuretic Peptide 310 pg/mL (<100)
[2024-05-20] MEDS: cefTRIAXone sodium 1 GM VIAL IVPUSH (09:33)
[2024-05-20] MEDS: Acetaminophen 1,000 MG/100 ML PIGGYBACK 400 MG IV ×2 (09:34→18:25)
[2024-05-20] MEDS: SODIUM CHLORIDE 3007.32 ML IV (09:36)
[2024-05-20 10:32] LABS: Reflex Lactate? Lactic Acid Added
--- NOTE | 2024-05-20 11:00 | MHC.EDTECH ---
patient was uncomfortable Nurse and I situated the patient, we boosted the patient up in bed and gave Him some warm blanket
[2024-05-20 11:22] LABS: ~Lactic Acid-LAB USE ONLY 1.1 mmol/L (0.5-2.0)
[2024-05-20] MEDS: HYDROmorphone HCl 1 MG/ML SYRINGE IVPUSH (11:23)
--- NOTE | 2024-05-20 11:42 | PC.NURSE ---
Patient arrived with [address] from EMS. Tech attempted to obtain labs/ blood cultures but patient difficult to obtain labs on. IV in right hand infiltrated, IV removed. 22 g placed in top of right hand, 20g in right ac placed, fluids continue to infuse
[2024-05-20] MEDS: iohexoL 350 MG/ML 100 ML INFUS..BTL IV (12:32)
[2024-05-20 15:29] LABS: Venous Blood Gas Refer to POC result
[2024-05-20 15:30] LABS: VBG Base Excess -4.4 mmol/L; VBG HCO3 21 mmol/L (22-26); VBG pCO2 41 mmHg; VBG pH 7.31 (7.32-7.43); VBG pO2 46 mmHg
--- NOTE | 2024-05-20 17:00 | PC.NURSE ---
Patient requesting something for anxiety provider at bedside stating at this time will not be ordering more ativan. Patient stating he can not breath sating 99% on 2 liters 02 via NC
[2024-05-20] MEDS: LORazepam 1 MG TABLET PO ×2 (17:10→18:26)
--- NOTE | 2024-05-20 22:27 | PC.NURSE ---
assumed care of patient at this time, patient placed in hospital bed bed locked in lowest position and call mcknight within reach.
[2024-05-21 04:59] VITALS: BP 131/85; PULSE 80; RESP 16; TEMP 36.7; O2SAT 98
--- NOTE | 2024-05-21 05:02 | MHC.EDTECH ---
0400 rounding done ,Patient awake to use urinal ,vitals taken ,450ml urine empty from urinal .All safety measure in Place.
--- NOTE | 2024-05-21 10:38 | PHA.MEDREC ---
Pharmacy Consult ? Medication Reconciliation Pharmacy has completed the medication reconciliation, pt was recently discharged from [facility], talked to Kamilla hale who provided meds that the patient was discharged on. Claims matched.
[2024-05-21] MEDS: LORazepam 1 MG TABLET PO (11:05)
[2024-05-21 11:21] VITALS: BP 101/58; PULSE 98; O2SAT 97
[2024-05-21 11:31] VITALS: BP 101/58; PULSE 98; RESP 20; TEMP 36.4; O2SAT 97
--- NOTE | 2024-05-21 13:55 | MHC.CM.ED ---
Addendum entered by Ingrid Fernandez 05/21/24 14:10: Spoke with friend/HCP, Eileen, via telephone at [phone]. Eileen will try to find bank statements from patient's apartment. Original Note: Received case management consult from Dr Brody. Patient came to the ER due to dyspnea. Work up essentially negative. Physical therapy eval completed. Short term rehab is recommended. Patient is well known to case manage due to frequent ER visits due to falls. Patient always requests to return to [facility]. Referral made via [facility]. [facility] is able to accept patient back. However, he has used all of his Medicare days and would need to privately pay. Patient does not have [facility]. In November 2023, [facility] were attempted to obtain [facility] for patient. Patient was not interested in jail care at that time. 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 Met with patient in regards to discharge planning. Patient is agreeable to jail care at [facility]. Patient verbalizes he is not able to privately pay for placement. Patient agreeable to meet with [facility] to complete [facility] application. Patient states he only has a bank account at [employer]. However, he did purchase a car 2 months ago and only made 2 payments. Referral made to [facility]. T/W spoke with Jewels of [facility]. She will reach out to their business office to see if they will be able to accept patient with a copy of [facility] application and supporting financials. Spoke with Tammie at [facility]. She can be reached via telephone at [phone] ext [phone]. Tammie doesn't feel patient can safetly return home. Above information provided to Tammie. Tammie is hopeful patient will follow through with this. Continue to monitor for d/c needs.
[2024-05-21 16:00] VITALS: BP 122/94; PULSE 100; RESP 16; TEMP 36.2; O2SAT 96
[2024-05-21] MEDS: Calcium Carbonate 750 MG TAB.CHEW PO (16:15)
[2024-05-21] MEDS: hydrOXYzine HCL 25 MG TABLET PO (16:15)
--- NOTE | 2024-05-21 16:17 | PC.NURSE ---
Pt very anxious, requiring redirection, distraught over recent conversation with financial counselor. Medicated per patient request, given drinks, assisted with TV
[2024-05-21] MEDS: Metoprolol Tartrate 12.5 MG HALFTAB PO (21:49)
[2024-05-21] MEDS: Melatonin 3 MG TABLET 9 MG PO (21:50)
[2024-05-21] MEDS: busPIRone HCl 5 MG TABLET 15 MG PO (21:51)
[2024-05-21] MEDS: Divalproex Sodium 500 MG TABLET.DR PO (21:51)
[2024-05-21] MEDS: Apixaban 5 MG TABLET PO (21:51)
[2024-05-21] MEDS: Gabapentin 100 MG CAPSULE 200 MG PO (21:51)
[2024-05-21] MEDS: Nystatin/Triamcinolone Cream 15 GM TUBE 1 APPL TOPICAL (21:54)
[2024-05-21 23:46] VITALS: BP 140/79; PULSE 115; RESP 20; TEMP 36.4; O2SAT 97
[2024-05-22] MEDS: hydrOXYzine HCL 25 MG TABLET PO ×2 (02:21→13:12)
[2024-05-22] MEDS: Acetaminophen 325 MG TABLET 975 MG PO (04:39)
[2024-05-22] MEDS: Omeprazole 20 MG CAPSULE.DR PO (06:21)
[2024-05-22] MEDS: Calcium Carbonate 750 MG TAB.CHEW PO ×2 (06:23→13:15)
--- NOTE | 2024-05-22 07:26 | PC.NURSE ---
Patient alert and compliant, assisted with care, safe on R/A, medicated per MAR. No distress observe
[2024-05-22] MEDS: LORazepam 1 MG TABLET PO (10:34)
[2024-05-22] MEDS: busPIRone HCl 10 MG TABLET PO (10:34)
[2024-05-22] MEDS: Apixaban 5 MG TABLET PO ×2 (10:34→20:47)
[2024-05-22] MEDS: Tamsulosin HCL 0.4 MG CAPSULE PO (10:34)
[2024-05-22 10:35] VITALS: BP 120/60
[2024-05-22] MEDS: amLODIPine Besylate 2.5 MG TABLET PO (10:35)
[2024-05-22] MEDS: Metoprolol Tartrate 12.5 MG HALFTAB PO ×2 (10:35→20:47)
[2024-05-22] MEDS: Venlafaxine HCl ER 37.5 MG CAP.ER.24H PO (10:36)
[2024-05-22] MEDS: Gabapentin 100 MG CAPSULE 200 MG PO ×2 (10:36→20:47)
[2024-05-22] MEDS: Venlafaxine HCl ER 150 MG CAP.ER.24H PO (10:36)
[2024-05-22 10:38] VITALS: BP 141/78; PULSE 97; RESP 18; TEMP 36.4; O2SAT 95
[2024-05-22] MEDS: Nystatin/Triamcinolone Cream 15 GM TUBE 1 APPL TOPICAL ×2 (10:41→20:47)
[2024-05-22 14:00] VITALS: BP 106/62; PULSE 76; RESP 18; TEMP 36.3; O2SAT 98
--- NOTE | 2024-05-22 14:52 | PC.NURSE ---
Called HCP Eileen Maher to ask if she could bring in the patient's medication for overactive bladder called Angelica, she does not have the keys to his house and cannot get the medication right now. Maybe at some point , the keys can be left for her at the front of the hospital, she does not want to come to [facility] at this point.
[2024-05-22 16:06] VITALS: BP 143/72; PULSE 72; RESP 16; TEMP 36.8; O2SAT 98
--- NOTE | 2024-05-22 16:07 | MHC.EDTECH ---
This pct assumed care of Patient at 1500 ,Patient sitting up at the side of bed watching television and having ice cream ,vitals taken ,All safety measure in Place .
[2024-05-22] MEDS: Melatonin 3 MG TABLET 9 MG PO (20:47)
[2024-05-22] MEDS: Divalproex Sodium 500 MG TABLET.DR PO (20:47)
[2024-05-22] MEDS: busPIRone HCl 5 MG TABLET 15 MG PO (20:47)
[2024-05-22 21:24] VITALS: BP 122/79; PULSE 75; RESP 16; TEMP 36.8; O2SAT 97
[2024-05-23 05:37] VITALS: BP 135/71; PULSE 69; RESP 16; TEMP 36.3; O2SAT 96
[2024-05-23] MEDS: Omeprazole 20 MG CAPSULE.DR PO (06:16)
[2024-05-23] MEDS: Venlafaxine HCl ER 150 MG CAP.ER.24H PO (09:07)
[2024-05-23] MEDS: busPIRone HCl 10 MG TABLET PO (09:07)
[2024-05-23] MEDS: Venlafaxine HCl ER 37.5 MG CAP.ER.24H PO (09:07)
[2024-05-23] MEDS: Tamsulosin HCL 0.4 MG CAPSULE PO (09:08)
[2024-05-23] MEDS: amLODIPine Besylate 2.5 MG TABLET PO (09:08)
[2024-05-23] MEDS: Metoprolol Tartrate 12.5 MG HALFTAB PO ×2 (09:08→21:13)
[2024-05-23] MEDS: LORazepam 1 MG TABLET PO (09:09)
[2024-05-23] MEDS: Gabapentin 100 MG CAPSULE 200 MG PO ×2 (09:09→21:13)
[2024-05-23] MEDS: Apixaban 5 MG TABLET PO ×2 (09:09→21:13)
[2024-05-23] MEDS: Nystatin/Triamcinolone Cream 15 GM TUBE 1 APPL TOPICAL ×2 (09:10→21:14)
--- NOTE | 2024-05-23 10:37 | MHC.CM.ED ---
Patient remains in ER overflow. Working with [facility] to complete [facility] application. Continue to monitor for d/c needs.
[2024-05-23] MEDS: hydrOXYzine HCL 25 MG TABLET PO ×2 (12:37→21:13)
[2024-05-23 19:50] VITALS: BP 112/69; PULSE 78; RESP 18; TEMP 36.7; O2SAT 95
[2024-05-23] MEDS: Calcium Carbonate 750 MG TAB.CHEW PO (20:22)
[2024-05-23] MEDS: Divalproex Sodium 500 MG TABLET.DR PO (21:13)
[2024-05-23] MEDS: busPIRone HCl 5 MG TABLET 15 MG PO (21:13)
[2024-05-23] MEDS: Melatonin 3 MG TABLET 9 MG PO (21:13)
--- NOTE | 2024-05-24 01:48 | PC.NURSE ---
Patient is sleeping at this time. Respirations even/unlabored. No needs at this time. Call mcknight within reach. Care ongoing by this RN.
[2024-05-24 03:22] VITALS: PULSE 61; RESP 18; TEMP 36.2; O2SAT 98
--- NOTE | 2024-05-24 05:37 | PC.NURSE ---
Patient out of bed with assistance to bedside commode. Returned to bed without issue. 1 person assist by staff. No needs at this time. Care ongoing by this RN.
[2024-05-24] MEDS: Omeprazole 20 MG CAPSULE.DR PO (06:30)
[2024-05-24 08:40] VITALS: BP 134/74; PULSE 64; RESP 18; TEMP 36.2; O2SAT 97
[2024-05-24] MEDS: LORazepam 1 MG TABLET PO (08:49)
[2024-05-24] MEDS: Apixaban 5 MG TABLET PO ×2 (08:49→20:19)
[2024-05-24] MEDS: Gabapentin 100 MG CAPSULE 200 MG PO ×2 (08:49→20:19)
[2024-05-24] MEDS: Tamsulosin HCL 0.4 MG CAPSULE PO (08:49)
[2024-05-24] MEDS: Nystatin/Triamcinolone Cream 15 GM TUBE 1 APPL TOPICAL ×2 (08:50→20:40)
[2024-05-24] MEDS: Venlafaxine HCl ER 37.5 MG CAP.ER.24H PO (10:54)
[2024-05-24] MEDS: busPIRone HCl 10 MG TABLET PO (10:54)
[2024-05-24] MEDS: Venlafaxine HCl ER 150 MG CAP.ER.24H PO (10:54)
[2024-05-24] MEDS: amLODIPine Besylate 2.5 MG TABLET PO (10:54)
[2024-05-24] MEDS: Metoprolol Tartrate 12.5 MG HALFTAB PO ×2 (10:55→20:19)
--- NOTE | 2024-05-24 13:14 | MHC.CM.ED ---
Patient remains in ER overflow. Met with patient. Patient aware Natalya from [facility] is working to complete [facility] application. Continue to monitor for d/c needs.
[2024-05-24 18:30] VITALS: BP 121/76; PULSE 75; RESP 14; TEMP 36.6; O2SAT 98
[2024-05-24] MEDS: Divalproex Sodium 500 MG TABLET.DR PO (20:18)
[2024-05-24] MEDS: Melatonin 3 MG TABLET 9 MG PO (20:19)
[2024-05-24] MEDS: busPIRone HCl 5 MG TABLET 15 MG PO (20:19)
[2024-05-24] MEDS: hydrOXYzine HCL 25 MG TABLET PO (20:19)
--- NOTE | 2024-05-24 21:22 | PC.NURSE ---
assist pt onto commode for BM. pt resting comfortably in bed at this time. call juan luis w/in reach
[2024-05-25] MEDS: Omeprazole 20 MG CAPSULE.DR PO (06:08)
[2024-05-25 06:24] VITALS: BP 127/64; PULSE 64; RESP 18; TEMP 36.7; O2SAT 99
[2024-05-25] MEDS: Gabapentin 100 MG CAPSULE 200 MG PO ×2 (08:35→21:45)
[2024-05-25] MEDS: LORazepam 1 MG TABLET PO (08:35)
[2024-05-25] MEDS: Nystatin/Triamcinolone Cream 15 GM TUBE 1 APPL TOPICAL ×2 (08:36→21:48)
[2024-05-25] MEDS: Tamsulosin HCL 0.4 MG CAPSULE PO (08:36)
[2024-05-25] MEDS: Apixaban 5 MG TABLET PO ×2 (08:36→21:44)
[2024-05-25 09:00] VITALS: BP 103/68; PULSE 64; RESP 18; TEMP 36; O2SAT 100
[2024-05-25] MEDS: Venlafaxine HCl ER 37.5 MG CAP.ER.24H PO (09:35)
[2024-05-25] MEDS: Metoprolol Tartrate 12.5 MG HALFTAB PO ×2 (09:35→21:44)
[2024-05-25] MEDS: amLODIPine Besylate 2.5 MG TABLET PO (09:35)
[2024-05-25] MEDS: Venlafaxine HCl ER 150 MG CAP.ER.24H PO (09:36)
[2024-05-25] MEDS: busPIRone HCl 10 MG TABLET PO (09:36)
[2024-05-25] MEDS: Calcium Carbonate 750 MG TAB.CHEW PO (09:40)
[2024-05-25] MEDS: hydrOXYzine HCL 25 MG TABLET PO ×2 (15:51→21:45)
[2024-05-25] MEDS: Simethicone 80 MG TAB.CHEW PO ×2 (18:23→21:44)
[2024-05-25 19:10] VITALS: BP 106/61; PULSE 74; RESP 20; TEMP 36.6; O2SAT 98
[2024-05-25] MEDS: Divalproex Sodium 500 MG TABLET.DR PO (21:44)
[2024-05-25] MEDS: busPIRone HCl 5 MG TABLET 15 MG PO (21:45)
[2024-05-25] MEDS: Melatonin 3 MG TABLET 9 MG PO (21:45)
[2024-05-25 22:30] VITALS: RESP 16; RESP 18
--- NOTE | 2024-05-26 03:36 | PC.NURSE ---
Patient resting in bed comfortable at this time. No distress observed or verbalized by patient.
[2024-05-26 05:27] VITALS: BP 156/64; PULSE 60; RESP 16; TEMP 37.2; O2SAT 98
--- NOTE | 2024-05-26 06:16 | PC.NURSE ---
pt assisted OOB to utilize urinal. documented in I&Os. pt assisted back into bed w/o difficulty. bed alarm turned on for safety precautions. call mcknight placed within reach.
[2024-05-26] MEDS: Omeprazole 20 MG CAPSULE.DR PO (06:21)
[2024-05-26] MEDS: amLODIPine Besylate 2.5 MG TABLET PO (08:33)
[2024-05-26] MEDS: Apixaban 5 MG TABLET PO ×2 (08:33→20:38)
[2024-05-26] MEDS: Tamsulosin HCL 0.4 MG CAPSULE PO (08:33)
[2024-05-26] MEDS: Gabapentin 100 MG CAPSULE 200 MG PO ×2 (08:33→20:38)
[2024-05-26] MEDS: Venlafaxine HCl ER 37.5 MG CAP.ER.24H PO (08:33)
[2024-05-26] MEDS: busPIRone HCl 10 MG TABLET PO (08:33)
[2024-05-26] MEDS: Venlafaxine HCl ER 150 MG CAP.ER.24H PO (08:33)
[2024-05-26] MEDS: Metoprolol Tartrate 12.5 MG HALFTAB PO ×2 (08:33→20:38)
[2024-05-26] MEDS: LORazepam 1 MG TABLET PO (08:33)
[2024-05-26] MEDS: Nystatin/Triamcinolone Cream 15 GM TUBE 1 APPL TOPICAL ×2 (08:33→20:39)
[2024-05-26 08:42] VITALS: BP 122/72; PULSE 65; RESP 18; TEMP 36.2; O2SAT 99
--- NOTE | 2024-05-26 09:49 | PC.NURSE ---
this nurse took over patient care at 9am, pt currently awake/alert to person/place, lungs are clear/diminished- rr equal/non labored, pt was oob with assist to bedside commode for BM, he also participated in adls with tech this morning. presently pt has no c/o pain, plan of care ongoing.
[2024-05-26 16:24] VITALS: BP 127/75; PULSE 66; RESP 18; TEMP 36.2; O2SAT 98
--- NOTE | 2024-05-26 18:00 | PC.NURSE ---
appointment patient stating he has an appointment on saturday with ortho. Pt is wondering how he can get to the appointment, this nurse told the patient that if he is placed in a facility that generally they could set up transportation to bring him to the appointment. This nurse was unsure if he remains in this facility if he could be transported to the appointment. This nurse attempted to reach out to case management but they had left for the day, will pass along in report to follow up with case management.
--- NOTE | 2024-05-26 19:46 | PC.NURSE ---
pharmacy called for pts missing medications
[2024-05-26 20:37] VITALS: BP 126/77; PULSE 68; RESP 18; TEMP 36.3; O2SAT 98
[2024-05-26] MEDS: busPIRone HCl 5 MG TABLET 15 MG PO (20:38)
[2024-05-26] MEDS: Divalproex Sodium 500 MG TABLET.DR PO (20:38)
[2024-05-26] MEDS: Melatonin 3 MG TABLET 9 MG PO (20:38)
[2024-05-27 05:38] VITALS: BP 109/61; PULSE 64; RESP 16; TEMP 36.2; O2SAT 99
[2024-05-27] MEDS: Omeprazole 20 MG CAPSULE.DR PO (06:39)
--- NOTE | 2024-05-27 08:25 | MHC.EDTECH ---
Pt ate 100% of his breakfast, 120cc of juice
[2024-05-27] MEDS: Apixaban 5 MG TABLET PO ×2 (09:06→21:23)
[2024-05-27] MEDS: Metoprolol Tartrate 12.5 MG HALFTAB PO ×2 (09:06→21:23)
[2024-05-27] MEDS: busPIRone HCl 10 MG TABLET PO (09:07)
[2024-05-27] MEDS: Gabapentin 100 MG CAPSULE 200 MG PO ×2 (09:07→21:23)
[2024-05-27] MEDS: Venlafaxine HCl ER 150 MG CAP.ER.24H PO (09:07)
[2024-05-27] MEDS: Tamsulosin HCL 0.4 MG CAPSULE PO (09:07)
[2024-05-27] MEDS: amLODIPine Besylate 2.5 MG TABLET PO (09:07)
[2024-05-27] MEDS: Venlafaxine HCl ER 37.5 MG CAP.ER.24H PO (09:07)
[2024-05-27 09:13] VITALS: BP 117/52
--- NOTE | 2024-05-27 09:33 | MHC.EDTECH ---
This tech assisted the PT with a full clean shave. Pt is now resting in bed, watching tv. Call mcknight in place
[2024-05-27] MEDS: Loperamide HCl 2 MG CAPSULE PO (09:44)
--- NOTE | 2024-05-27 12:49 | MHC.CM.ED ---
Patient remains in ER overflow. Financial paperwork provided to patient. [facility] unavailable until Saturday. Continue to monitor for d/c needs.
[2024-05-27] MEDS: Simethicone 80 MG TAB.CHEW PO (13:10)
[2024-05-27 14:00] VITALS: BP 122/81; PULSE 70; RESP 17; TEMP 36; O2SAT 97
[2024-05-27] MEDS: hydrOXYzine HCL 25 MG TABLET PO ×2 (15:35→22:14)
--- NOTE | 2024-05-27 15:35 | PC.NURSE ---
pt medicated w PRN medication for anxiety per pt request.
[2024-05-27 20:04] VITALS: BP 113/66; PULSE 68; RESP 16; TEMP 36.8; O2SAT 97
--- NOTE | 2024-05-27 20:15 | MHC.EDTECH ---
This pct assumed care of Patient at 1915 ,Vitals taken ,Patient awake watching television ,fresh ice water given and michael angel ,Patient had ice cream for snack ,600 ml empty from urinal .All safety measure in Place .
[2024-05-27] MEDS: Melatonin 3 MG TABLET 9 MG PO (21:22)
[2024-05-27] MEDS: busPIRone HCl 5 MG TABLET 15 MG PO (21:23)
[2024-05-27] MEDS: Divalproex Sodium 500 MG TABLET.DR PO (22:14)
[2024-05-27] MEDS: Nystatin/Triamcinolone Cream 15 GM TUBE 1 APPL TOPICAL (22:15)
--- NOTE | 2024-05-27 23:25 | PC.NURSE ---
sleeping comfortably, respirations non labored.
--- NOTE | 2024-05-28 06:09 | PC.NURSE ---
uneventful night. uses urinal independently. mental status at baseline, speech clear. to be transferred to short term rehab.
[2024-05-28 06:10] VITALS: BP 109/60; PULSE 69; RESP 16; TEMP 37.1; O2SAT 97
[2024-05-28] MEDS: Omeprazole 20 MG CAPSULE.DR PO (06:35)
[2024-05-28] MEDS: Tamsulosin HCL 0.4 MG CAPSULE PO (09:03)
[2024-05-28] MEDS: Venlafaxine HCl ER 37.5 MG CAP.ER.24H PO (09:03)
[2024-05-28] MEDS: amLODIPine Besylate 2.5 MG TABLET PO (09:03)
[2024-05-28] MEDS: Apixaban 5 MG TABLET PO ×2 (09:03→21:01)
[2024-05-28] MEDS: Venlafaxine HCl ER 150 MG CAP.ER.24H PO (09:03)
[2024-05-28] MEDS: Metoprolol Tartrate 12.5 MG HALFTAB PO (09:03)
[2024-05-28] MEDS: busPIRone HCl 10 MG TABLET PO (09:03)
[2024-05-28] MEDS: Gabapentin 100 MG CAPSULE 200 MG PO ×2 (09:03→21:01)
[2024-05-28] MEDS: hydrOXYzine HCL 25 MG TABLET PO (10:00)
[2024-05-28 13:27] VITALS: BP 106/62; PULSE 64; RESP 16; TEMP 36.6; O2SAT 98
--- NOTE | 2024-05-28 15:47 | PC.NURSE ---
Addendum entered by Denisse Carlos RN 05/28/24 23:02: CM saw this patient this evening for an update per patient request. No further BM during this abstract writer's care. Pt still needs GI/cdiff panel. Patient appears calm, sleeping in bed at this time. Breathing observed even and unlabored without distress on room air. See rounding assessments for full details. Call mcknight within reach, patient rings to make needs known. Handoff report given to oncoming ED RN at 23:00. Addendum entered by Denisse Carlos RN 05/28/24 16:32: Lab called to clarify need for ordered GI panel and cdiff sample. Covering Provider Chen Tiwari contacted, states pt had recent complaints of diarrhea and still needs sample. Discussed w/ lab, BM for abstract writer was mixed w/ urine so unable to send at this time. Discussed need for separate stool sample with patient, will monitor for further BM. Original Note: Assumed care of patient at 15:00. Patient remains in ED overflow. Pt is A&Ox4 at this time. Denies chest pain, sob, n/v or other acute issues. Breathing is even and unlabored without distress on room air. Patient is tolerating snacks w/o n/v, and resting in bed watching tv. Assisted to commode as stand/pivot with standby assistance. +Voiding odorless yellow urine and +BM. Back to bed. Bed alarm and high falls measures including VMT camera continue.
[2024-05-28 17:38] VITALS: BP 107/62; PULSE 64; RESP 18; TEMP 36.6; O2SAT 96
[2024-05-28 20:34] VITALS: BP 109/64; PULSE 64; RESP 18; TEMP 36.2; O2SAT 97
[2024-05-28] MEDS: Melatonin 3 MG TABLET 9 MG PO (21:01)
[2024-05-28] MEDS: busPIRone HCl 5 MG TABLET 15 MG PO (21:02)
[2024-05-28] MEDS: Divalproex Sodium 500 MG TABLET.DR PO (21:02)
[2024-05-28] MEDS: Nystatin/Triamcinolone Cream 15 GM TUBE 1 APPL TOPICAL (21:03)
--- NOTE | 2024-05-28 23:26 | PC.NURSE ---
assumed care of pt at 23:15
[2024-05-29] MEDS: Gabapentin 100 MG CAPSULE 200 MG PO ×2 (08:39→20:10)
[2024-05-29] MEDS: Nystatin/Triamcinolone Cream 15 GM TUBE 1 APPL TOPICAL ×2 (08:40→20:13)
[2024-05-29] MEDS: Tamsulosin HCL 0.4 MG CAPSULE PO (08:40)
[2024-05-29] MEDS: busPIRone HCl 10 MG TABLET PO (08:40)
[2024-05-29] MEDS: Omeprazole 20 MG CAPSULE.DR PO (08:40)
[2024-05-29] MEDS: Venlafaxine HCl ER 37.5 MG CAP.ER.24H PO (08:40)
[2024-05-29] MEDS: amLODIPine Besylate 2.5 MG TABLET PO (08:40)
[2024-05-29] MEDS: Apixaban 5 MG TABLET PO ×2 (08:40→20:10)
[2024-05-29] MEDS: Metoprolol Tartrate 12.5 MG HALFTAB PO ×2 (08:40→20:10)
[2024-05-29] MEDS: Venlafaxine HCl ER 150 MG CAP.ER.24H PO (08:40)
[2024-05-29] MEDS: hydrOXYzine HCL 25 MG TABLET PO ×2 (08:42→20:10)
[2024-05-29] MEDS: Acetaminophen 325 MG TABLET 650 MG PO (10:35)
--- NOTE | 2024-05-29 12:12 | MHC.CM.ED ---
Patient remains in ER overflow. [facility] application completed and sent to [facility]. Copy provided to CM. T/W reached out to [facility] to see if they would be willing to offer a bed with [facility] pending. Waiting to hear back. Continue to monitor for d/c needs.
[2024-05-29 13:14] VITALS: BP 115/73; PULSE 65; RESP 18; TEMP 36.3; O2SAT 99
[2024-05-29] MEDS: Ibuprofen 600 MG TABLET PO (14:58)
[2024-05-29] MEDS: Docusate Sodium 100 MG CAPSULE PO (18:14)
[2024-05-29] MEDS: Melatonin 3 MG TABLET 9 MG PO (20:10)
[2024-05-29] MEDS: Divalproex Sodium 500 MG TABLET.DR PO (20:10)
[2024-05-29] MEDS: busPIRone HCl 5 MG TABLET 15 MG PO (20:10)
[2024-05-29] MEDS: Loperamide HCl 2 MG CAPSULE PO (20:10)
[2024-05-29 20:13] VITALS: BP 106/61; PULSE 79; RESP 22; TEMP 36.1; O2SAT 97
[2024-05-30] VITALS (7 sets, daily range): BP systolic 91–131; BP diastolic 53–82; PULSE 57–84; RESP 16–19; TEMP 36.2–36.5; O2SAT 95–98
[2024-05-30] MEDS: Omeprazole 20 MG CAPSULE.DR PO (06:08)
[2024-05-30] MEDS: Gabapentin 100 MG CAPSULE 200 MG PO ×2 (08:19→20:17)
[2024-05-30] MEDS: Apixaban 5 MG TABLET PO ×2 (08:20→20:17)
[2024-05-30] MEDS: Tamsulosin HCL 0.4 MG CAPSULE PO (08:20)
[2024-05-30] MEDS: busPIRone HCl 10 MG TABLET PO (09:39)
[2024-05-30] MEDS: Venlafaxine HCl ER 37.5 MG CAP.ER.24H PO (09:39)
[2024-05-30] MEDS: Venlafaxine HCl ER 150 MG CAP.ER.24H PO (09:40)
[2024-05-30] MEDS: amLODIPine Besylate 2.5 MG TABLET PO (11:59)
[2024-05-30] MEDS: Acetaminophen 325 MG TABLET 650 MG PO (14:43)
[2024-05-30] MEDS: hydrOXYzine HCL 25 MG TABLET PO (18:03)
--- NOTE | 2024-05-30 18:05 | PC.NURSE ---
pt alert and oriented x4. He rested quietly during the day getting up frequently to use urinal and/or commode. Pt reminded to use call mcknight for standby assist. Pt resistant and states there is no reason he cannot get up alone. He was reminded of recent falls and reassured he will be allowed to be as independent as possible while maintaining safety. Bed alarm and camera maintained. He reports chronic pain to bilateral shoulders and was medicated as noted in jun. TELEHEALTH NURSE [facility] approved apap for pain outside of parameters and pt asked for apap for this pain. He states + relief. He declined any other pain interventions. Pt now reporting anxiety and prn given as noted. Effect pending. observation ongoing.
[2024-05-30] MEDS: busPIRone HCl 5 MG TABLET 15 MG PO (20:16)
[2024-05-30] MEDS: Metoprolol Tartrate 12.5 MG HALFTAB PO (20:16)
[2024-05-30] MEDS: Melatonin 3 MG TABLET 9 MG PO (20:17)
[2024-05-30] MEDS: Divalproex Sodium 500 MG TABLET.DR PO (21:02)
[2024-05-31] MEDS: Omeprazole 20 MG CAPSULE.DR PO (05:35)
[2024-05-31 05:39] VITALS: BP 114/74; PULSE 59; RESP 14; TEMP 36.2; O2SAT 99
--- NOTE | 2024-05-31 07:45 | MHC.EDTECH ---
patient had to urinated patient used urinal out put of patient was 600 nurse aware
[2024-05-31 08:36] VITALS: BP 116/67; PULSE 62; RESP 16; TEMP 36.6; O2SAT 98
[2024-05-31] MEDS: Tamsulosin HCL 0.4 MG CAPSULE PO (08:41)
[2024-05-31] MEDS: Apixaban 5 MG TABLET PO ×2 (08:41→20:40)
[2024-05-31] MEDS: Gabapentin 100 MG CAPSULE 200 MG PO ×2 (08:41→20:40)
[2024-05-31] MEDS: Metoprolol Tartrate 12.5 MG HALFTAB PO ×2 (08:41→20:40)
[2024-05-31 09:55] VITALS: BP 93/54
[2024-05-31] MEDS: Venlafaxine HCl ER 150 MG CAP.ER.24H PO (09:55)
[2024-05-31] MEDS: amLODIPine Besylate 2.5 MG TABLET PO (09:55)
[2024-05-31] MEDS: Venlafaxine HCl ER 37.5 MG CAP.ER.24H PO (09:55)
[2024-05-31] MEDS: busPIRone HCl 10 MG TABLET PO (09:55)
--- NOTE | 2024-05-31 11:00 | MHC.EDTECH ---
patient had to urinate patient out put was 200 nurse aware
--- NOTE | 2024-05-31 12:45 | MHC.EDTECH ---
Patient is a stand by to the camode patient had a large Bowl movement, nurse aware.
--- NOTE | 2024-05-31 14:35 | MHC.EDTECH ---
Did ADLS care on patient Gave patient a full bed bath changed patient bed linen as well gave patient fresh clean hospital gown Patient Had a medium BM I also shaved patient and washed his hair. nurse aware.
[2024-05-31] MEDS: hydrOXYzine HCL 25 MG TABLET PO (14:36)
[2024-05-31 16:02] VITALS: BP 120/72; PULSE 63; RESP 16; TEMP 36.7; O2SAT 99
[2024-05-31] MEDS: Acetaminophen 325 MG TABLET 650 MG PO (18:19)
--- NOTE | 2024-05-31 19:36 | MHC.EDTECH ---
Assisted pt to sit on edge of bed and use urinal. Small amount of 100ml voided. Pt back in bed and requested ice cream. RN aware
[2024-05-31] MEDS: busPIRone HCl 5 MG TABLET 15 MG PO (20:40)
[2024-05-31] MEDS: Divalproex Sodium 500 MG TABLET.DR PO (20:40)
[2024-05-31] MEDS: Melatonin 3 MG TABLET 9 MG PO (20:40)
[2024-05-31] MEDS: Loperamide HCl 2 MG CAPSULE PO (20:55)
[2024-05-31 21:32] VITALS: BP 95/51; PULSE 69; RESP 16; TEMP 37; O2SAT 95
--- NOTE | 2024-06-01 01:04 | MHC.EDTECH ---
Assisted pt to sit on edge of bed and use urinal. 250ml voided. Pt back in bed and requested another ice cream. RN aware
[2024-06-01] MEDS: Omeprazole 20 MG CAPSULE.DR PO (05:58)
[2024-06-01 06:09] VITALS: BP 101/55; PULSE 58; RESP 14; TEMP 37; O2SAT 97
[2024-06-01] MEDS: Venlafaxine HCl ER 37.5 MG CAP.ER.24H PO (08:17)
[2024-06-01] MEDS: Venlafaxine HCl ER 150 MG CAP.ER.24H PO (08:17)
[2024-06-01] MEDS: Gabapentin 100 MG CAPSULE 200 MG PO ×2 (08:17→21:28)
[2024-06-01] MEDS: Tamsulosin HCL 0.4 MG CAPSULE PO (08:17)
[2024-06-01] MEDS: Apixaban 5 MG TABLET PO ×2 (08:17→21:32)
[2024-06-01] MEDS: busPIRone HCl 10 MG TABLET PO (08:18)
[2024-06-01 08:19] VITALS: BP 111/66
[2024-06-01] MEDS: amLODIPine Besylate 2.5 MG TABLET PO (08:19)
[2024-06-01] MEDS: Metoprolol Tartrate 12.5 MG HALFTAB PO ×2 (08:20→21:29)
--- NOTE | 2024-06-01 10:31 | PC.NURSE ---
RN requested to bedside to assess abdominal incision, per patient few years ago patient undergone surgery and stitches were left in, patient stated the suture is slowly making its way out and needs to be cut upon assessment short about 5mm thread noted on top of scar on the abdomen, per patient's request threed was cut as close to the skin as possible, no pain or infection signs around the site.
[2024-06-01] MEDS: Loperamide HCl 2 MG CAPSULE PO (10:43)
--- NOTE | 2024-06-01 10:56 | MHC.CM.ED ---
Patient remains in ER overflow. [facility]'s business office is reviewing to see if they will be able to offer a custodial care bed. Continue to monitor for d/c needs.
[2024-06-01 14:00] VITALS: BP 99/65; PULSE 65; RESP 16; TEMP 36.1; O2SAT 98
[2024-06-01] MEDS: Acetaminophen 325 MG TABLET 650 MG PO ×2 (15:23→21:29)
[2024-06-01] MEDS: hydrOXYzine HCL 25 MG TABLET PO (16:44)
--- NOTE | 2024-06-01 19:57 | PC.NURSE ---
this rn assumed care of pt @ 1900. pt requesting ibuprofen for bilat shoulder pain this rn made Nain sayra aware lidocaine patch order placed pt refused Tylenol prn and lidocaine patch. sayra made aware
[2024-06-01 20:16] VITALS: BP 105/66; PULSE 62; RESP 15; TEMP 36.7; O2SAT 96
--- NOTE | 2024-06-01 20:17 | MHC.EDTECH ---
This pct assumed care of Patient at 1910 ,vitals taken ,Patient had 2 ice cream for snack .
--- NOTE | 2024-06-01 21:19 | MHC.EDTECH ---
Patient was assisted unto bedside commode ,had moderate amount of bowel movement ,care given and Patient back to bed .
[2024-06-01] MEDS: busPIRone HCl 5 MG TABLET 15 MG PO (21:29)
[2024-06-01] MEDS: Melatonin 3 MG TABLET 9 MG PO (21:29)
[2024-06-01] MEDS: Divalproex Sodium 500 MG TABLET.DR PO (21:29)
--- NOTE | 2024-06-01 21:35 | PC.NURSE ---
oleg sayra made aware of bp 105/66 hr 62 per sayra pt okay to receive pm dose of metoprolol. pt refused nystatin cream states i don't take that pt otherwise medicated according to gloria
--- NOTE | 2024-06-02 03:21 | PC.NURSE ---
camera monitor went off as pt sat on edge of bed pt assisted with use of bedside urinal. urinal emptied after use pt requested ice cream, pt provided with ice cream
[2024-06-02 04:15] VITALS: BP 122/71; PULSE 62; TEMP 36.1; O2SAT 96
[2024-06-02] MEDS: Omeprazole 20 MG CAPSULE.DR PO (06:19)
[2024-06-02] MEDS: Apixaban 5 MG TABLET PO ×2 (08:20→21:03)
[2024-06-02] MEDS: Tamsulosin HCL 0.4 MG CAPSULE PO (08:20)
[2024-06-02] MEDS: Venlafaxine HCl ER 37.5 MG CAP.ER.24H PO (08:20)
[2024-06-02] MEDS: Gabapentin 100 MG CAPSULE 200 MG PO ×2 (08:20→21:03)
[2024-06-02] MEDS: Metoprolol Tartrate 12.5 MG HALFTAB PO ×2 (08:20→21:03)
[2024-06-02] MEDS: Venlafaxine HCl ER 150 MG CAP.ER.24H PO (08:20)
[2024-06-02] MEDS: busPIRone HCl 10 MG TABLET PO (08:20)
[2024-06-02 08:21] VITALS: BP 119/59
[2024-06-02] MEDS: amLODIPine Besylate 2.5 MG TABLET PO (08:21)
[2024-06-02 13:39] VITALS: BP 106/69; PULSE 67; RESP 18; TEMP 36.3; O2SAT 98
[2024-06-02] MEDS: Loperamide HCl 2 MG CAPSULE PO (17:53)
--- NOTE | 2024-06-02 18:47 | PC.NURSE ---
Patient spent most of the shift in bed, getting oob to bedside commode with stand by assist. Had three BM this shift, medicated with antidiarreal per patient's request. No pain reported. Awaiting placement.
[2024-06-02] MEDS: Acetaminophen 325 MG TABLET 650 MG PO (21:02)
[2024-06-02] MEDS: busPIRone HCl 5 MG TABLET 15 MG PO (21:02)
[2024-06-02] MEDS: Melatonin 3 MG TABLET 9 MG PO (21:03)
[2024-06-02] MEDS: Divalproex Sodium 500 MG TABLET.DR PO (21:04)
[2024-06-02 21:31] VITALS: BP 108/65; PULSE 69; RESP 16; TEMP 36.2; O2SAT 96
[2024-06-03] MEDS: Calcium Carbonate 750 MG TAB.CHEW PO (04:15)
[2024-06-03 05:52] VITALS: BP 105/59; PULSE 58; RESP 18; TEMP 36.1; O2SAT 96
[2024-06-03] MEDS: Omeprazole 20 MG CAPSULE.DR PO (06:29)
[2024-06-03] MEDS: Apixaban 5 MG TABLET PO ×2 (08:38→19:29)
[2024-06-03] MEDS: Venlafaxine HCl ER 37.5 MG CAP.ER.24H PO (08:38)
[2024-06-03] MEDS: Tamsulosin HCL 0.4 MG CAPSULE PO (08:38)
[2024-06-03] MEDS: Venlafaxine HCl ER 150 MG CAP.ER.24H PO (08:39)
[2024-06-03] MEDS: Gabapentin 100 MG CAPSULE 200 MG PO ×2 (08:39→19:29)
[2024-06-03] MEDS: busPIRone HCl 10 MG TABLET PO (08:39)
[2024-06-03 08:40] VITALS: BP 92/57; PULSE 70; RESP 17; O2SAT 99
[2024-06-03 08:43] VITALS: BP 92/57
[2024-06-03 11:49] VITALS: BP 111/59; PULSE 59; RESP 13; TEMP 36.6; O2SAT 98
[2024-06-03] MEDS: Acetaminophen 325 MG TABLET 650 MG PO (12:04)
[2024-06-03] MEDS: hydrOXYzine HCL 25 MG TABLET PO (14:00)
--- NOTE | 2024-06-03 15:30 | MHC.CM.ED ---
Patient remains in ER overflow. [facility] still reviewing to see if they can accept patient as [facility] pending. Continue to monitor for d/c needs.
[2024-06-03] MEDS: traMADoL HCL 50 MG TABLET PO (16:33)
--- NOTE | 2024-06-03 18:15 | P.HPHOSP_ITS ---
History of Present Illness Date of Service: 06/03/24 Chief Complaint: Difficulty breathing 78-year-old male who came from home for difficulty breathing, feeling anxious and feeling disoriented since 15:00 yesterday patient normally have history of anxiety that he takes Ativan for at-home patient recently was just discharged from [facility] to home 2 days ago. The patient normally wheelchair-bound able to transport lives home alone. Wheelchair-bound secondary to failed hip surgery Patient with history of AFib, pulmonary embolism, and DVT that he is anticoagulated with apixaban. Patient also with history of asthma and sleep apnea not using supplemental oxygen or CPAP at home. Admitted initially to physician aspiration now admitted to general medical floor pending placement Review of Systems 2 Review of Systems: Denies chest pain Denies shortness of breath Denies nausea vomiting diarrhea Denies fever chills PMFSH Medical History Incisional hernia Premature atrial complexes Shortness of breath Rash Asthma exacerbation Leukocytosis Serum potassium elevated Low vitamin D level Headache Fatigue Moderate recurrent major depression Hospital discharge follow-up Chest tightness Dyspnea on exertion Allergic bronchitis Generalized anxiety disorder Tinea cruris SOB (shortness of breath) on exertion Constipation Atrial fibrillation Knee fracture, left Wedge compression fracture of L1 vertebra Prostate cancer Iron deficiency anemia Obstructive sleep apnea Vitamin D deficiency Diverticular disease Obesity (BMI 30-39.9) Peptic ulcer disease Degenerative disc disease GERD (gastroesophageal reflux disease) Anxiety and depression Vitamin B12 deficiency Gout Hypertension Fatigue Dysuria Family History Father Diabetes Acute kidney failure Glaucoma Mother Lung cancer Surgical History History of colonoscopy History of hemiarthroplasty of left hip H/O rectal polypectomy History of knee replacement procedure of left knee H/O hernia repair History of pyloroplasty History of bowel resection History of cholecystectomy Social History Household Members: None Housing: [facility] Housing Other:: independent living Do you presently have visiting nurse or other home services: No Unable to assess alcohol history related to: Unknown Alcohol intake: former Comment: 1:1 sitter Patient Tobacco Use Status: Former Tobacco user Tobacco use type: Cigar e-Cigarette/Vaping Use: Currently Using Second Hand Smoke Exposure: No Advance Directives Date on File: 04/28/24 service: No Current occupational status: retired Cognitive needs: No Hearing needs: Yes Vision needs: Yes Meds Allergies Allergy/AdvReac Type Severity Reaction Status Date / Time carisoprodol [From Soma] Allergy Mild MENTAL Verified 05/20/24 07:14 STATUS CHANGE, BECOMES AGGRESIVE codeine [Codeine] Allergy Mild STOMACH Verified 05/20/24 07:14 UPSET, RASH gabapentin AdvReac Intermediate lousy Verified 05/20/24 07:14 feeling Active Medications: Current Medications Acetaminophen (Acetaminophen 325 Mg Tablet) 650 mg PO Q6H PRN PRN Reason: Pain, Moderate(Pain Scale 4-6) Last Admin: 06/03/24 12:04 Dose: 650 mg Acetaminophen (Acetaminophen 325 Mg Tablet) 650 mg PO Q6H PRN PRN Reason: Pain, Mild 1-3,fever,headache Amlodipine Besylate (Amlodipine Besylate 2.5 Mg Tablet) 2.5 mg PO DAILY [facility]; Protocol Last Admin: 06/03/24 08:43 Dose: Not Given Apixaban (Apixaban 5 Mg Tablet) 5 mg PO BID [facility] Last Admin: 06/03/24 08:38 Dose: 5 mg Buspirone HCl (Buspirone Hcl 10 Mg Tablet) 10 mg PO DAILY [facility] Last Admin: 06/03/24 08:39 Dose: 10 mg Buspirone HCl (Buspirone Hcl 5 Mg Tablet) 15 mg PO BEDTIME [facility] Last Admin: 06/02/24 21:02 Dose: 15 mg Calcium Carbonate (Calcium Carbonate 750 Mg Tab.Chew) 750 mg PO QID PRN PRN Reason: Dyspepsia Last Admin: 06/03/24 04:15 Dose: 750 mg Calcium Carbonate (Calcium Carbonate 750 Mg Tab.Chew) 750 mg PO Q4H PRN PRN Reason: Heartburn Divalproex Sodium (Divalproex Sodium 500 Mg Tablet.Dr) 500 mg PO BEDTIME [facility] Last Admin: 06/02/24 21:04 Dose: 500 mg Gabapentin (Gabapentin 100 Mg Capsule) 200 mg PO BID [facility] Last Admin: 06/03/24 08:39 Dose: 200 mg Hydroxyzine HCl (Hydroxyzine Hcl 25 Mg Tablet) 25 mg PO Q8H PRN PRN Reason: Anxiety Last Admin: 06/03/24 14:00 Dose: 25 mg Loperamide HCl (Loperamide Hcl 2 Mg Capsule) 2 mg PO DAILY PRN PRN Reason: Diarrhea Last Admin: 06/02/24 17:53 Dose: 2 mg Magnesium Hydroxide (Milk Of Magnesia 30 Ml Oral.Susp) 30 ml PO DAILY PRN PRN Reason: Constipation Melatonin (Melatonin 3 Mg Tablet) 9 mg PO BEDTIME [facility] Last Admin: 06/02/24 21:03 Dose: 9 mg Melatonin (Melatonin 3 Mg Tablet) 6 mg PO BEDTIME PRN PRN Reason: Insomnia Metoprolol Tartrate (Metoprolol Tartrate 12.5 Mg Halftab) 12.5 mg PO BID [facility]; Protocol Last Admin: 06/03/24 08:42 Dose: Not Given Nystatin/Triamcinolone Acetonide (Nystatin/Triamcinolone Cream 15 Gm Tube) 1 appl TOPICAL BID [facility]; Protocol Last Admin: 06/03/24 08:46 Dose: Not Given Omeprazole (Omeprazole 20 Mg Capsule.Dr) 20 mg PO DAILY@0630 [facility] Last Admin: 06/03/24 06:29 Dose: 20 mg Ondansetron HCl (Ondansetron Hcl 4 Mg/2 Ml Vial) 4 mg IVPUSH Q8H PRN PRN Reason: Nausea and Vomiting Senna (Sennosides 8.6 Mg Tablet) 17.2 mg PO BEDTIME PRN PRN Reason: Constipation Simethicone (Simethicone 80 Mg Tab.Chew) 80 mg PO QID PRN PRN Reason: Gas Last Admin: 05/27/24 13:10 Dose: 80 mg Sodium Chloride (0.9 % Sodium Chloride Flush 3 Ml Syringe) 3 ml IVFLUSH [facility] Tamsulosin HCl (Tamsulosin Hcl 0.4 Mg Capsule) 0.4 mg PO DAILY [facility] Last Admin: 06/03/24 08:38 Dose: 0.4 mg Venlafaxine HCl (Venlafaxine Hcl Er 37.5 Mg Cap.Er.24h) 37.5 mg PO DAILY [facility] Last Admin: 06/03/24 08:38 Dose: 37.5 mg Venlafaxine HCl (Venlafaxine Hcl Er 150 Mg Cap.Er.24h) 150 mg PO DAILY [facility] Last Admin: 06/03/24 08:39 Dose: 150 mg Home Medications ?Medication ?Instructions ?Recorded ?Confirmed ?Last Taken ?Type gabapentin 100 mg capsule 200 mg PO BID 09/30/23 05/21/24 04/29/24 History melatonin 10 mg tablet 10 mg PO BEDTIME insomnia 09/30/23 05/21/24 04/29/24 History divalproex 500 mg tablet,delayed 500 mg PO BEDTIME 11/09/23 05/21/24 04/29/24 History release (Depakote) pantoprazole 40 mg tablet,delayed 40 mg PO BEDTIME 11/09/23 05/21/24 04/29/24 History release vibegron 75 mg tablet (Gemtesa) 75 mg PO DAILY 11/09/23 05/21/24 04/29/24 History tamsulosin 0.4 mg capsule 0.4 mg PO DAILY 12/26/23 05/21/24 04/29/24 History venlafaxine 150 mg 150 mg PO DAILY 12/26/23 05/21/24 04/29/24 History capsule,extended release 24 hr (Effexor XR) venlafaxine 37.5 mg 37.5 mg PO DAILY 12/26/23 05/21/24 04/29/24 History capsule,extended release 24 hr (Effexor XR) nystatin-triamcinolone 100,000 1 appl topical BID 04/20/24 05/21/24 04/29/24 History unit/g-0.1 % topical cream apixaban 5 mg tablet 5 mg PO BID 04/27/24 05/21/24 04/29/24 History hydroxyzine HCl 25 mg tablet 25 mg PO Q8H PRN Anxiety 04/27/24 05/21/24 04/29/24 History lorazepam 1 mg tablet 1 mg PO DAILY 04/27/24 05/21/24 04/29/24 History amlodipine 2.5 mg tablet 2.5 mg PO DAILY 04/30/24 05/21/24 04/29/24 History buspirone 5 mg tablet 10 mg PO DAILY 05/21/24 05/21/24 Unknown History buspirone 5 mg tablet 15 mg PO BEDTIME 05/21/24 05/21/24 Unknown History Physical Exam 2 Vital Signs and Narrative: Vital Signs: Last Vital Signs Temp 97.8 F 06/03/24 11:49 Pulse 59 06/03/24 11:49 Resp 13 06/03/24 11:49 BP 111/59 L 06/03/24 11:49 Pulse Ox 98 06/03/24 11:49 O2 Del Method Room Air 06/03/24 11:49 O2 Flow Rate 94 05/30/24 14:00 Oxygen Flow Rate 2 05/20/24 07:11 BMI result Body Mass Index 30.0 Const: Other: Awake alert hard of hearing but no acute distress Resp: Other: Clear to auscultation bilaterally no rales rhonchi or wheezes Cardio: Other: No S4; positive S1-S2; no S3 murmurs rubs or gallops. Irregularly irregular GI: Other: Soft nontender nondistended normoactive bowel sounds Extrem: Other: No edema Results Labs 05/20/24 08:27 05/20/24 08:27 Assessment and Plan (1) Chronic atrial fibrillation: Status: Acute (2) Cognitive impairment: Status: Acute (3) Hypertension: Qualifiers: Hypertension type: essential hypertension Qualified Code(s): I10 - Essential (primary) hypertension Status: Acute Plan 78-year-old male with a history of chronic atrial fibrillation, hypertension, cognitive impairment and GERD presents initially from home with worsening shortness of breath and anxiety. 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 He was recently discharged from [facility] and after 2 days returned to the hospital. He is being admitted to the hospital from physician observation 1. Chronic atrial fibrillation -acceptable rate control on current therapies -continue Eliquis -adjust therapies as clinically indicated 2. Cognitive impairment -appears stable and well compensated -continue outpatient therapy 3. Hypertension -well control on current therapies -adjust as indicated DNR DNI Eliquis Quality Stroke Does the patient have a stroke diagnosis?: No VTE Prior VTE?: Yes VTE Risk Level:: Medical - moderate - high VTE Device Contraindication: Treatment Not Indicated VTE Drug Contraindication: N/A - Med Ordered
[2024-06-03] MEDS: Melatonin 3 MG TABLET 9 MG PO (19:29)
[2024-06-03] MEDS: busPIRone HCl 5 MG TABLET 15 MG PO (19:29)
[2024-06-03 19:34] VITALS: BP 96/61; PULSE 70; RESP 20; O2SAT 98
[2024-06-03] MEDS: Divalproex Sodium 500 MG TABLET.DR PO (21:28)
[2024-06-04 00:27] VITALS: BP 104/58; PULSE 65; RESP 18; TEMP 36.2; O2SAT 97
== END 2024-06-04 13:14 | disposition admitted as inpatient to this hospital (09) ==
PROVIDERS: Emergency Provider Emergency Medicine; PCP Internal Medicine
DX: F41.9 Anxiety disorder, unspecified (principal); R06.4 Hyperventilation; E87.20 Acidosis, unspecified; Z03.818 Encounter for observation for suspected exposure to other biological agents ruled out; I48.20 Chronic atrial fibrillation, unspecified; I10 Essential (primary) hypertension; R41.89 Other symptoms and signs involving cognitive functions and awareness; J45.909 Unspecified asthma, uncomplicated; Z99.3 Dependence on wheelchair; Z74.01 Bed confinement status; Z85.46 Personal history of malignant neoplasm of prostate; Z86.711 Personal history of pulmonary embolism; Z87.891 Personal history of nicotine dependence; Z79.01 Long term (current) use of anticoagulants; Z79.899 Other long term (current) drug therapy
CPT/HCPCS: 0241U; 36415; 71045; 71275; 74177; 80048; 80076; 80307; 81003; 82803; 83605; 83690; 83880; 84484; 85025; 85379; 85610; 87040; 93005; 96361; 96365; 96366; 96375; 97162; 99285; J0131; J0696; J1171; J2060; Q9967

== ENCOUNTER → 2024-05-20 07:18 | Outpatient (BNV) | payer MEDICARE, SELFPAY | PROVIDERS: Emergency Provider Emergency Medicine; PCP Internal Medicine; Visit Provider Internal Medicine Cardiovascular Disease | DX: R94.31 Abnormal electrocardiogram [ECG] [EKG] (principal); R06.02 Shortness of breath | CPT/HCPCS: 93010 ==

== ENCOUNTER → 2024-05-20 07:24 | Outpatient (BNV) | payer MEDICARE, SELFPAY | PROVIDERS: Emergency Provider Emergency Medicine; PCP Internal Medicine; Visit Provider Hospitalist | DX: I48.20 Chronic atrial fibrillation, unspecified (principal); R41.89 Other symptoms and signs involving cognitive functions and awareness; I10 Essential (primary) hypertension | CPT/HCPCS: 99223 ==

== ENCOUNTER 2024-06-03 23:52 | Outpatient (BNV) | payer MEDICARE, SELFPAY | END 2024-06-15 05:50 | PROVIDERS: Admitting Provider Hospitalist; PCP Internal Medicine; Visit Provider Radiology Diagnostic Radiology | DX: M25.551 Pain in right hip (principal); M25.552 Pain in left hip; M79.641 Pain in right hand | CPT/HCPCS: 73110; 73130; 73502 ==

== ENCOUNTER 2024-06-03 23:52 | Observation (INO) | payer MEDICARE, SELFPAY ==
--- NOTE | ~2024-06-03 | XR_ITS ---
CLINICAL HISTORY: fall 3 view right hand and wrist Comparison: None Findings: Hand: Bones intact. No dislocations. Postoperative changes involving the 1st and 2nd metacarpals. Advanced degenerative change of the interphalangeal joint of the thumb. No significant loss of joint space or osteophytes. No erosions. No radiopaque foreign body. Wrist: The triquetrum appears absent. Sclerosis at the articulation of the trapezoid scaphoid and 1st metacarpal. Radiocarpal joint space loss. Bones are intact. IMPRESSION: 1. No acute fracture identified in the hand or wrist. 2. Postoperative changes involving the base of the thumb and the right 1st and 2nd metacarpals. This document has been electronically signed by: Elissa Oliveira MD on 06/15/2024 06:26:32
--- NOTE | ~2024-06-03 | XR_ITS ---
CLINICAL HISTORY: fall 2 view, pelvis and right hip Comparison: None Findings: No acute fracture or dislocation. Joint space loss with osteophyte formation. The soft tissues are unremarkable. IMPRESSION: No displaced fracture identified. Degenerative changes. This document has been electronically signed by: Elissa Oliveira MD on 06/15/2024 06:23:43
--- NOTE | ~2024-06-03 | XR_ITS ---
CLINICAL HISTORY: fall 3 view, pelvis and left hip Comparison: CR - XR HIP LT MIN 2V W/WO PEL - 04/29/24 23:24 EST Findings: Evidence of prior left hip arthroplasty. The acetabular component and femoral stem component are in place and unchanged compared with the prior examination. A femoral head component is not appreciated. The proximal femur appears slightly more cranially displaced in relation to the acetabulum/pelvis when compared to the prior exam. IMPRESSION: No acute fracture identified. The proximal left femur appears slightly more cranially displaced in relation to the acetabulum/pelvis than on the prior exam. Prior left hip arthroplasty. The femoral head component is not appreciated similar to the prior exam. This document has been electronically signed by: Elissa Oliveira MD on 06/15/2024 06:23:55
--- NOTE | 2024-06-03 23:18 | P.HPHOSP_ITS ---
History of Present Illness Date of Service: 06/03/24 Attending physician on admission: Nilesh Pascual Chief Complaint: Difficulty breathing 78-year-old male who came from home for difficulty breathing, feeling anxious and feeling disoriented since 15:00 yesterday patient normally have history of anxiety that he takes Ativan for at-home patient recently was just discharged from [facility] to home 2 days ago. The patient normally wheelchair-bound able to transport lives home alone. Wheelchair-bound secondary to failed hip surgery Patient with history of AFib, pulmonary embolism, and DVT that he is anticoagulated with apixaban. Patient also with history of asthma and sleep apnea not using supplemental oxygen or CPAP at home. Admitted initially to physician aspiration now admitted to general medical floor pending placement Review of Systems Review of Systems: Denies chest pain Denies shortness of breath Denies nausea vomiting diarrhea Denies fever chills PMFSH Medical History Incisional hernia Premature atrial complexes Shortness of breath Rash Asthma exacerbation Leukocytosis Serum potassium elevated Low vitamin D level Headache Fatigue Moderate recurrent major depression Hospital discharge follow-up Chest tightness Dyspnea on exertion Allergic bronchitis Generalized anxiety disorder Tinea cruris SOB (shortness of breath) on exertion Constipation Atrial fibrillation Knee fracture, left Wedge compression fracture of L1 vertebra Prostate cancer Iron deficiency anemia Obstructive sleep apnea Vitamin D deficiency Diverticular disease Obesity (BMI 30-39.9) Peptic ulcer disease Degenerative disc disease GERD (gastroesophageal reflux disease) Anxiety and depression Vitamin B12 deficiency Gout Hypertension Fatigue Dysuria Family History Father Diabetes Acute kidney failure Glaucoma Mother Lung cancer Surgical History History of colonoscopy History of hemiarthroplasty of left hip H/O rectal polypectomy History of knee replacement procedure of left knee H/O hernia repair History of pyloroplasty History of bowel resection History of cholecystectomy Social History Household Members: None Housing: [facility] Housing Other:: independent living Do you presently have visiting nurse or other home services: No Unable to assess alcohol history related to: Unknown Alcohol intake: former Comment: 1:1 sitter Patient Tobacco Use Status: Former Tobacco user Tobacco use type: Cigar e-Cigarette/Vaping Use: Currently Using Second Hand Smoke Exposure: No Advance Directives: Yes Advance Directives on File: Yes Advance Directives Date on File: 04/28/24 service: No Current occupational status: retired Cognitive needs: No Hearing needs: Yes Vision needs: Yes Meds Allergies Allergy/AdvReac Type Severity Reaction Status Date / Time carisoprodol [From Soma] Allergy Mild MENTAL Verified 05/20/24 07:14 STATUS CHANGE, BECOMES AGGRESIVE codeine [Codeine] Allergy Mild STOMACH Verified 05/20/24 07:14 UPSET, RASH gabapentin AdvReac Intermediate lousy Verified 05/20/24 07:14 feeling Active Medications: Current Medications Acetaminophen (Acetaminophen 325 Mg Tablet) 650 mg PO Q6H PRN PRN Reason: Pain, Mild 1-3,fever,headache Amlodipine Besylate (Amlodipine Besylate 2.5 Mg Tablet) 2.5 mg PO DAILY [facility]; Protocol Apixaban (Apixaban 5 Mg Tablet) 5 mg PO BID [facility] Buspirone HCl (Buspirone Hcl 10 Mg Tablet) 10 mg PO DAILY [facility] Buspirone HCl (Buspirone Hcl 5 Mg Tablet) 15 mg PO BEDTIME [facility] Calcium Carbonate (Calcium Carbonate 750 Mg Tab.Chew) 750 mg PO Q4H PRN PRN Reason: Heartburn Divalproex Sodium (Divalproex Sodium 500 Mg Tablet.Dr) 500 mg PO BEDTIME [facility] Gabapentin (Gabapentin 100 Mg Capsule) 200 mg PO BID [facility] Hydroxyzine HCl (Hydroxyzine Hcl 25 Mg Tablet) 25 mg PO Q8H PRN PRN Reason: Anxiety Loperamide HCl (Loperamide Hcl 2 Mg Capsule) 2 mg PO DAILY PRN PRN Reason: Diarrhea Magnesium Hydroxide (Milk Of Magnesia 30 Ml Oral.Susp) 30 ml PO DAILY PRN PRN Reason: Constipation Melatonin (Melatonin 3 Mg Tablet) 6 mg PO BEDTIME PRN PRN Reason: Insomnia Metoprolol Tartrate (Metoprolol Tartrate 12.5 Mg Halftab) 12.5 mg PO BID [facility]; Protocol Nystatin/Triamcinolone Acetonide (Nystatin/Triamcinolone Cream 15 Gm Tube) 1 appl TOPICAL BID [facility]; Protocol Omeprazole (Omeprazole 20 Mg Capsule.) 20 mg PO DAILY@0630 [facility] Ondansetron HCl (Ondansetron Hcl 4 Mg/2 Ml Vial) 4 mg IVPUSH Q8H PRN PRN Reason: Nausea and Vomiting Senna (Sennosides 8.6 Mg Tablet) 17.2 mg PO BEDTIME PRN PRN Reason: constipation Simethicone (Simethicone 80 Mg Tab.Chew) 80 mg PO QIDWMHS PRN PRN Reason: Gas Sodium Chloride (0.9 % Sodium Chloride Flush 3 Ml Syringe) 3 ml IVFLUSH QSHIFT [facility] Tamsulosin HCl (Tamsulosin Hcl 0.4 Mg Capsule) 0.4 mg PO DAILY [facility] Venlafaxine HCl (Venlafaxine Hcl Er 37.5 Mg Cap.Er.24h) 37.5 mg PO DAILY [facility] Venlafaxine HCl (Venlafaxine Hcl Er 150 Mg Cap.Er.24h) 150 mg PO DAILY [facility] Home Medications ?Medication ?Instructions ?Recorded ?Confirmed ?Last Taken ?Type gabapentin 100 mg capsule 200 mg PO BID 09/30/23 05/21/24 04/29/24 History melatonin 10 mg tablet 10 mg PO BEDTIME insomnia 09/30/23 05/21/24 04/29/24 History divalproex 500 mg tablet,delayed 500 mg PO BEDTIME 11/09/23 05/21/24 04/29/24 History release (Depakote) pantoprazole 40 mg tablet,delayed 40 mg PO BEDTIME 11/09/23 05/21/24 04/29/24 History release vibegron 75 mg tablet (Gemtesa) 75 mg PO DAILY 11/09/23 05/21/24 04/29/24 History tamsulosin 0.4 mg capsule 0.4 mg PO DAILY 12/26/23 05/21/24 04/29/24 History venlafaxine 150 mg 150 mg PO DAILY 12/26/23 05/21/24 04/29/24 History capsule,extended release 24 hr (Effexor XR) venlafaxine 37.5 mg 37.5 mg PO DAILY 12/26/23 05/21/24 04/29/24 History capsule,extended release 24 hr (Effexor XR) nystatin-triamcinolone 100,000 1 appl topical BID 04/20/24 05/21/24 04/29/24 History unit/g-0.1 % topical cream apixaban 5 mg tablet 5 mg PO BID 04/27/24 05/21/24 04/29/24 History hydroxyzine HCl 25 mg tablet 25 mg PO Q8H PRN Anxiety 04/27/24 05/21/24 04/29/24 History lorazepam 1 mg tablet 1 mg PO DAILY 04/27/24 05/21/24 04/29/24 History amlodipine 2.5 mg tablet 2.5 mg PO DAILY 04/30/24 05/21/24 04/29/24 History buspirone 5 mg tablet 10 mg PO DAILY 05/21/24 05/21/24 Unknown History buspirone 5 mg tablet 15 mg PO BEDTIME 05/21/24 05/21/24 Unknown History Physical Exam Const: Other: Awake alert hard of hearing no acute distress Resp: Other: Clear to auscultation bilaterally no rales rhonchi or wheezes Cardio: Other: No S4; positive S1-S2; no S3 murmurs rubs or gallops. Irregularly irregular GI: Other: Soft nontender nondistended normoactive bowel sounds Extrem: Other: No edema Assessment and Plan (1) Chronic atrial fibrillation: Status: Acute (2) Cognitive impairment: Status: Acute (3) Hypertension: Qualifiers: Hypertension type: essential hypertension Qualified Code(s): I10 - Essential (primary) hypertension Status: Acute Plan 78-year-old male with a history of chronic atrial fibrillation, hypertension, cognitive impairment and GERD presents initially from home with worsening shortness of breath and anxiety. 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 He was recently discharged from [facility] and after 2 days returned to the hospital. He is being admitted to the hospital from physician observation 1. Chronic atrial fibrillation -acceptable rate control on current therapies -continue Eliquis -adjust therapies as clinically indicated 2. Cognitive impairment -appears stable and well compensated -continue outpatient therapy 3. Hypertension -well control on current therapies -adjust as indicated DNR DNI Eliquis Quality Stroke Does the patient have a stroke diagnosis?: No VTE Prior VTE?: Yes VTE Risk Level:: Medical - moderate - high VTE Device Contraindication: Treatment Not Indicated VTE Drug Contraindication: N/A - Med Ordered
[2024-06-04] VITALS (7 sets, daily range): BP systolic 96–136; BP diastolic 58–76; PULSE 61–79; RESP 16–18; TEMP 36–36.8; O2SAT 96–100; BMI 31.0
[2024-06-04] MEDS: Melatonin 3 MG TABLET 6 MG PO ×2 (01:05→20:22)
--- NOTE | 2024-06-04 05:01 | PC.NURSE ---
Gave pt prn melatonin at 0105 during downtime.
[2024-06-04] MEDS: Omeprazole 20 MG CAPSULE.DR PO (06:04)
--- NOTE | 2024-06-04 07:18 | PHA.MEDREC ---
Pharmacy Consult ? Medication Reconciliation Pharmacy has completed the medication reconciliation. Pt was already here in ED, utilized med rec from that encounter/what was continued previously.
[2024-06-04] MEDS: Gabapentin 100 MG CAPSULE 200 MG PO ×2 (08:20→20:22)
[2024-06-04] MEDS: Apixaban 5 MG TABLET PO ×2 (08:20→20:22)
[2024-06-04] MEDS: Tamsulosin HCL 0.4 MG CAPSULE PO (08:20)
[2024-06-04] MEDS: amLODIPine Besylate 2.5 MG TABLET PO (08:20)
[2024-06-04] MEDS: Venlafaxine HCl ER 37.5 MG CAP.ER.24H PO (08:20)
[2024-06-04] MEDS: Venlafaxine HCl ER 150 MG CAP.ER.24H PO (08:20)
[2024-06-04] MEDS: busPIRone HCl 10 MG TABLET PO (08:21)
[2024-06-04] MEDS: Metoprolol Tartrate 12.5 MG HALFTAB PO (08:21)
--- NOTE | 2024-06-04 12:32 | HO.PM.IMPN ---
Subjective Subjective Date of Service: 06/04/24 Interval History: the patient was seen and evaluated this morning Laying in bed, feels comfortable Denies any fever, chills or shortness of breath No reported other overnight events. Review of Systems Review of Systems: Yes all other systems are reviewed and are negative Physical Exam Vital Signs: Vital Signs: Last Vital Signs Temp 98.3 F 06/04/24 07:20 Pulse 76 06/04/24 08:53 Resp 18 06/04/24 07:20 BP 108/70 06/04/24 08:53 Pulse Ox 100 06/04/24 08:53 O2 Del Method Room Air 06/04/24 07:20 BMI result Body Mass Index 31.0 Const: Other: Constitutional : interactive, not in distress Cardiovascular : no JVP, no lower extremity edema Respiratory : bilateral chest movement, not in resp distress Gastrointestinal: soft, lax, Non tender Skin : Warm, Dry Neurological : Alert & oriented to self and place, No focal deficit Objective Data Active Medications Acetaminophen (Acetaminophen 325 Mg Tablet) 650 mg PO Q6H PRN PRN Reason: Pain, Mild 1-3,fever,headache Amlodipine Besylate (Amlodipine Besylate 2.5 Mg Tablet) 2.5 mg PO DAILY [facility]; Protocol Last Admin: 06/04/24 08:20 Dose: 2.5 mg Documented By: MICHAEL Apixaban (Apixaban 5 Mg Tablet) 5 mg PO BID [facility] Last Admin: 06/04/24 08:20 Dose: 5 mg Documented By: MICHAEL Buspirone HCl (Buspirone Hcl 10 Mg Tablet) 10 mg PO DAILY [facility] Last Admin: 06/04/24 08:21 Dose: 10 mg Documented By: MICHAEL Buspirone HCl (Buspirone Hcl 5 Mg Tablet) 15 mg PO BEDTIME [facility] Calcium Carbonate (Calcium Carbonate 750 Mg Tab.Chew) 750 mg PO Q4H PRN PRN Reason: Heartburn Divalproex Sodium (Divalproex Sodium 500 Mg Tablet.Dr) 500 mg PO BEDTIME [facility] Gabapentin (Gabapentin 100 Mg Capsule) 200 mg PO BID [facility] Last Admin: 06/04/24 08:20 Dose: 200 mg Documented By: MICHAEL Hydroxyzine HCl (Hydroxyzine Hcl 25 Mg Tablet) 25 mg PO Q8H PRN PRN Reason: Anxiety Loperamide HCl (Loperamide Hcl 2 Mg Capsule) 2 mg PO DAILY PRN PRN Reason: Diarrhea Magnesium Hydroxide (Milk Of Magnesia 30 Ml Oral.Susp) 30 ml PO DAILY PRN PRN Reason: Constipation Melatonin (Melatonin 3 Mg Tablet) 6 mg PO BEDTIME PRN PRN Reason: Insomnia Last Admin: 06/04/24 01:05 Dose: 6 mg Documented By: RYAN Metoprolol Tartrate (Metoprolol Tartrate 12.5 Mg Halftab) 12.5 mg PO BID [facility]; Protocol Last Admin: 06/04/24 08:21 Dose: 12.5 mg Documented By: MICHAEL Omeprazole (Omeprazole 20 Mg Capsule.) 20 mg PO DAILY@0630 [facility] Last Admin: 06/04/24 06:04 Dose: 20 mg Documented By: RYAN Ondansetron HCl (Ondansetron Hcl 4 Mg/2 Ml Vial) 4 mg IVPUSH Q8H PRN PRN Reason: Nausea and Vomiting Senna (Sennosides 8.6 Mg Tablet) 17.2 mg PO BEDTIME PRN PRN Reason: constipation Simethicone (Simethicone 80 Mg Tab.Chew) 80 mg PO QIDWMHS PRN PRN Reason: Gas Tamsulosin HCl (Tamsulosin Hcl 0.4 Mg Capsule) 0.4 mg PO DAILY [facility] Last Admin: 06/04/24 08:20 Dose: 0.4 mg Documented By: MICHAEL Venlafaxine HCl (Venlafaxine Hcl Er 37.5 Mg Cap.Er.24h) 37.5 mg PO DAILY [facility] Last Admin: 06/04/24 08:20 Dose: 37.5 mg Documented By: MICHAEL Venlafaxine HCl (Venlafaxine Hcl Er 150 Mg Cap.Er.24h) 150 mg PO DAILY [facility] Last Admin: 06/04/24 08:20 Dose: 150 mg Documented By: MICHAEL Assessment and Plan (1) Cognitive impairment: Status: Acute Plan 78-year-old male with a history of chronic atrial fibrillation, hypertension, cognitive impairment and GERD presents initially from home with worsening shortness of breath and anxiety. 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 He was recently discharged from [facility] and after 2 days returned to the hospital. unable to take care of himself. # Chronic atrial fibrillation acceptable rate control on current therapies continue Eliquis # Cognitive impairment stable and well compensated continue outpatient therapy # Hypertension well control on current therapies. 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 Quality Stroke Does the patient have a stroke diagnosis?: No VTE Prior VTE?: Yes VTE Risk Level:: Medical - moderate - high VTE Device Contraindication: Treatment Not Indicated VTE Drug Contraindication: N/A - Med Ordered
--- OUTSIDE RECORDS SUMMARY | 2024-06-04 14:54 | XMS_ITS | Continuity of Care Document ---
Author Organization [facility], [facility] Address [address] [place] [address] Care Team Providers Care Busgirl Name Role Phone DIYA MARIN - 2ND FLOOR OTHER [place] R[place] Primary Care Provider [phone] Assessment No assessment recorded. Plan of Treatment [...] Time History of total hip arthroplast y [id number] Active 2019 Crista Spaldingalfa patel, [facility] 0 12:56:15 Gastroesoph ageal reflux disease without esophagitis 067090476 Active 2019 Crista Ames null, [facility] 0 12:56:19 Mixed anxiety and depressive disorder 976523749 Active 2019 Crista Spaldingalfa patel, [facility] 0 12:56:21 Essential hypertensio n 01049626 Active 2019 Crista Otf null, [facility] 0 12:56:23 History of malignant neoplasm of prostate 027032111 Active 2019 Crista Otf null, [facility] 0 12:56:26 COVID-19 442711934 Active 2019 Crista patel, [facility] 0 12:56:41 Anemia due to blood loss 921912953 Active 2019 Crista Vanessa null, [facility] 0 12:58:53 Reduction of dislocation of hip Active 2019 ROSANA VILLEDA NP [address], [place], [address], [facility] 0 08:57:29 Open wound 353890282 Active 2019 ROSANA VILLEDA NP [address] [facility], [address], [place], [address], [facility] 0 09:01:46 Pulmonary embolism 23650803 Active 2019 ROSANA VILLEDA NP [address] [facility], [address], [place], [address], [facility] 0 09:03:09 Fall Active 2019 ROSANA VILLEDA NP [address] [facility], [address], [place], [address], [facility] 0 10:40:41 Postoperati ve wound infection 64513030 Active 2019 Smitha Sparks MD [address], [place], [address], [facility] 0 00:12:33 Dislocation of hip joint prosthesis 094114975 Active 2019 Smitha Sparks MD [address] [facility], [address], [place], [address], [facility] 0 00:12:36 Insomnia 928640417 Active 2019 Smitha Sparks MD [address] [place] [address], [address], [place], [address], [facility] 0 00:21:52 Chronic back pain 989292463 Active 2019 Smitha Sparks MD [address] [facility], [address], [place], [address], [facility] 0 00:22:56 Gout 10058486 Active 2019 Priya Le MD [address], [address], [place], [address], [facility] 0 14:03:47 Minimal cognitive impairment 368922913 Active 2019 Smitha Sparks MD [address], [address], [place], [address], [facility] 0 16:44:57 Paroxysmal atrial fibrillatio n 722239558 Active 2022 ALEXIS DOLAN NP [address], [address], [place], [address], [facility] 3 15:10:55 History of pulmonary embolus 507348865 Active 2022 ALEXIS DOLAN NP [address], [address], [place], [address], [facility] 3 15:11:44 Delirium 8102729 Active 2022 ALEXIS DOLAN NP [address], [address], [place], [address], [facility] 3 15:27:16 Surgical incision wound of skin 565232344720 Active 2022 ROSANA VILLEDA NP [address], [address], [place], [address], [facility] 3 14:38:56 Abrasion 734797692 Active 2022 Antonieta Brito NP [address], [address], [place], [address], [facility] 3 10:17:57 Asthenia 71976783 Active 2022 ALEXIS DOLAN NP [address], [address], [place], [address], [facility] 3 16:13:31 Hernia of anterior abdominal wall 605130189 Active 2022 Antonieta Brito NP [address], [address], [place], [address], [facility] 3 16:23:51 Hypoxia 391154699 Active 2022 Antonieta Brito NP [address], [address], [place], [address], [facility] 3 11:25:28 Altered mental status 150799089 Active 2022 Antonieta Brito NP [address], [address], [place], [address], [facility] 3 11:31:49 Loose stool 329349505 Active 2022 Antonieta Brito NP [address], [address], [place], [address], [facility] 3 09:25:29 Headache 57465008 Active 2022 Antonieta Brito NP [address], [address], [place], [address], [facility] 3 09:40:59 Weight decreased 203779625 Active 2022 Antonieta Brito NP [address], [address], [place], [address], [facility] 3 09:42:25 Hemorrhoids 42805903 Active 2022 Antonieta Brito NP [address], [address], [place], [address], [facility] [employer] 3 08:25:10 Seasonal allergy 764961367 Active 2023 Antonieta Brito NP [address], [address], [place], [address], [facility] [facility] 4 12:19:01 Hearing loss 32141630 Active 2024 Ayo Jeffrey MD [address], [address], [place], [address], [facility] 5 09:57:58 Problem Notes None recorded. Medical Equipment None Reported. Allergies Allergen ID Allergen Name Allergen Category Reaction Reaction Severity Criticality Documentation Date Start Date Code Code System Note Provider Name and Address Organization Details Recorded Time Non-stero idal anti-infl ammatory agent (product) medicatio n Not available Not available Not available 11/17/2019 64182 005 SNOMED Not Available Not Available Not Available hydrochlo rothiazid e medicatio n Not available Not available Not available 11/17/2019 5487 RxNorm Not Available Not Available Not Available 68169 aspirin medicatio n Not available Not available Not available 11/17/2019 1191 RxNorm Not Available Not Available Not Available 80473 codeine medicatio n Not available Not available Not available 11/17/2019 2670 RxNorm Not Available Not Available Not Available 75221 Topamax medicatio n Not available Not available Not available 11/17/2019 56692 3 RxNorm Not Available Not Available Not Available 03798 Soma medicatio n Not available Not available Not available 11/17/2019 05277 2 RxNorm Not Available Not Available Not [...] Updated DateTime 5 182.88 cm 29.6 kg/m2 67312.1 4 g 78 /min 18 /min 98.1 [degF] 95 % 95 % 132 mm[Hg] 70 mm[Hg] Antonieta Brito NP [address] [facility] [address], [place], [address], [place] - [facility] 5 21:51:05 Social History Question Answer Notes LastModified by Organizat ion Details LastModified Time Tobacco Smoking Status Former Smoker Quit 40 years ago Not Available [employer] 02/23/2020 03:13:21 Do You Have An Advance Directive? Yes Information not available 09/27/2022 What Is Your Level Of Alcohol Consumption? None [id number] Information not available 02/23/2020 How Much Tobacco Do You Chew? None [id number] Information not available 02/23/2020 What Is Your Code Status? DNR/DNI No Dialysis, No Artificial Nutrition [email or web address] Information not available 09/27/2022 Do You Or Have You Ever Used E-cigarettes Or Vape? Never Used Electronic Cigarettes [id number] Information not available 02/23/2020 Where Do You Live? Apartment Lives Alone Information not available 11/19/2023 Legal Guardian? No Informati on not available 09/28/2022 Do You Have A Medical Power Of Javascript Web Developer? Yes Has HCP, Not Invoked Information not available 09/28/2022 What Was The Date Of Your Most Recent Tobacco Screening? 05/01/2024 [email or web address] Information not available 05/01/2024 Do You Have An Out Of Hospital DNR? Yes Information not available 09/28/2022 What Is Your Relationship Status? Information not available 09/28/2022 Do You Or Have You Ever Used Smokeless Tobacco? Never Used Smokeless Tobacco [id number] Information not available 02/23/2020 Do You Use Any Illicit Or Recreational Drugs? No [email or web address] Information not available 09/27/2022 Has Tobacco Cessation Counseling Been Provided? No N/a As Pt No Longer Smokes Information not available 09/28/2022 How Many Years Have You Smoked Tobacco? 15 [id number] Information not available 02/23/2020 Do You Or Have You Ever Used Any Other Forms Of Tobacco Or Nicotine? No [email or web address] Information not available 09/27/2022 Sex: Unknown Functional Status None recorded. Mental Status None recorded. Family History Relationship Description Onset Age of this Age Resolved Age Notes LastModified by Organization Details LastModified Time Mother Malignant tumor of breast [id number] Not available 2022 14:44:55 Mother Malignant tumor of lung [email or web address] Not available 2022 14:45:08 Notes:father: , dm, ARF, glaucoma Medical History No medical history recorded. Immunizations Vaccine Type Date Status Note Provider Nam e and Address Organization Details Recorded Time Influenza, adjuvanted, quadrivalent, PF 3 completed Page patel, [facility] 06/14/2023 16:55:16 Influenza, adjuvanted, quadrivalent, PF 2 completed Page Dugan null, [facility] 06/14/2023 16:56:38 Influenza, split virus, quadrivalent, preservative 0 completed Ana Elliott null, [facility] 02/19/2020 11:13:50 SARS-COV-2 (COVID-19) vaccine, UNSPECIFIED 3 [facility] 10:17:34 Td(adult) unspecified formulation 8 completed [facility]/2023 15:52:58 Pneumococcal conjugate PCV 13 7 completed Ileana Amaya [facility] 11/22/2023 15:53:12 pneumococcal polysaccharide PPV23 4 completed Ileana Amaya [facility] 11/22/2023 15:53:30 pneumococcal polysaccharide PPV23 8 completed [facility]23 15:53:36 pneumococcal polysaccharide PPV23 0 completed [facility]/2023 15:53:43 SARS-COV-2 (COVID-19) vaccine, UNSPECIFIED 1 completed [facility]/2023 15:54:14 SARS-COV-2 (COVID-19) vaccine, UNSPECIFIED 1 completed [facility]/2023 15:54:22 SARS-COV-2 (COVID-19) vaccine, UNSPECIFIED 1 completed [facility]/2023 15:54:39 zoster, unspecified formulation 8 completed [facility]2023 15:55:00 zoster, unspecified formulation 8 completed [facility]23 15:55:12 Past Encounters Encounter ID Performer Location Encounter Start Date Encounter Closed Date Diagnosis/Indication Diagnosis SNOMED-CT Code Diagnosis ICD10 Code Diagnosis Note [id number] Antonieta Brito NP [facility] [address] [facility] [place] [address] 05/01/2024 08:25:47 05/04/2024 13:28:46 Asthenia 30385259 R53.1 Weak at baseline, is now TTWB with walker from recent ER visitPT/OT eval and treatSafet y precaution s reviewed.s upportive carerec using orthodic as much as possible with leg shortening Adult fail ure to thrive syndrome 093070576 R62.7 Continuing to encourage pt to consider [...] decisions Mixed anxi ety and depressive disorder 463374977 F41.8 with hx of anxiety and depression with report of vivid dreams lately Do not recommend ativan with hx of misuse and decreased o2 sats in past conteffexo r 187.5 mg qd, Buspar 10 mg q am and 15 mg qhs, melatonin 10 mg qhs and hydroxyzin e 25 mg q 8 hrs prn.Monito r mood and behaviorss upportive prn Chronic back pain 770552 002 G89.29 Chronic pain to hip and [...] will left nsg knowmonito r Essential hypertension 49863671 I10 In good control.Co ntinueamlo dipine 2.5 mg po qdmetoprol ol 12.5 mg BID, hold for SBP<120 or pulse<60Mo nitor BP and labs as outpt. Paroxysmal atrial fibrillation 968093594 I48.0 Rate in good control on meds as above.Cont inueeliqui s 5 mg BID for AC.Monitor HR and bleeding risk as outpt. Gastroesop hageal reflux disease without esophagitis 188529490 K21.9 No current sxs.Contin uepantopra zole 40 mg qdMonitor GI sxs as outpt. History of pulmonary embolus 701104938 Z86.711 ContinueEl iquis 5 mg BIDMonitor 05/01/24 refer for pulmonolog y consult for report of sob with activity, intermitte nt o2 sats, etc...? sob related to panic/anxi ety or something more Anemia due to blood loss 170029296 D50.0 Continues to be stable.Mon itor cbc and bmp weekly, labs pending today Seasonal allergy 0382686 04 J30.2 No current sxs.Contin uecetirizi ne 10 mg qd.Monitor Overactive urinary bladder 046229767 N32.81 Continueta msulosin 0.4 mg qd and gemtesa 75 mg qdMonitor Fall R29.6 hx of recurrent falls on ac currentlyh e is insistent on staying on ac and educated on risk and agreeable to plan to dc dc'd oxycodone and ativan likely contributi ng to fallssee above asthenia History of total hip arthroplasty 4647244039 06 Z96.649 hx of total left hip arthroplas tyfu with Dr. Stover as above [id number] Ayo Jeffrey MD [address] [address] 05/02/2024 09:37:26 05/04/2024 13:13:13 Recurrent falls 366121490 R29.6 see HPIrecurre nt falls and hospitaliz ations recentlyPT OT eval and treatmonit or fall risk and need for increased support in communityq uestion opioids and benzo contributi ng to fall risk no longer utilizingc ontinues on AC for a fib - aware of risk benefit History of total hip arthroplasty 4579227954 06 Z96.649 see above with hx of total left hip arthroplas ty and recurrent dislocatio nsf/u with ortho in placefollo w ortho recs and update with concerns Adult fail ure to thrive syndrome 202717733 R62.7 question need to transition to assisted living or LTC with multiple recent hospitaliz ationscurr ently not safe to return home Mixed anxi ety and depressive disorder 065201909 F41.8 stable on out patient medscontin uedpsych eval prnmonitor mood Essential hypertension 60563167 I10 norvasc 2.5 mg qdmetoprol ol 12.5 mg bidmonitor bp and need to titrate Paroxysmal atrial fibrillation 437686438 I48.0 eliquis 5 mg bidmetopro lol 12.5 mg bidmonitor for rate control Gastroesop hageal reflux disease without esophagitis 907889720 K21.9 protonix 40 mg qdmonitor sx relief History of pulmonary embolus 793836631 Z86.711 see abovemaint ained on eliquis Chronic re tention of urine 147961483 R33.8 maintained on flomax 0.4 mg qdmonitor for retentionu rology eval prn Chronic back pain 820231 002 G89.29 now off oxy with concern contributi ng to fall riskfollow ed by ortho Insomnia 008848148 G47.0 9 melatonin 10 mg qhsmonitor for effect Headache 90387577 R51.9 Hearing loss 21964299 H9 0.0 need to shoutconsi keaton need for audiology eval Minimal co gnitive impairment 380808952 G31.84 appears mild at baselinemo nitor cognitive function and need to invoke [id number] [facility] [address] 05/08/2024 19:22:41 05/12/2024 09:33:23 Recurrent falls 609026271 R29.6 see HPIrecurre nt falls and hospitaliz ations recentlyPT OT eval and treatmonit or fall risk and need for increased support in communityq uestion opioids and benzo contributi ng to fall risk no longer utilizingc ontinues on AC for a fib - aware of risk benefit History of total hip arthroplasty 9731361065 06 Z96.649 see above with hx of total left hip arthroplas ty and recurrent dislocatio nsTTWBorth otic shoe recommende df/u with ortho in placefollo w ortho recs and update with concerns Paroxysmal atrial fibrillation 943513463 I48.0 eliquis 5 mg bidmetopro lol 12.5 mg bidmonitor for rate control Adult fail ure to thrive syndrome 405364560 R62.7 question need to transition to assisted living or LTC with multiple recent hospitaliz ationscurr ently not safe to return home and looking into [facility] Mixed anxi ety and depressive disorder 048996262 F41.8 stable on out patient medscontin uedpsych eval prnmonitor mood Essential hypertension 45286486 I10 bp stablenorv asc 2.5 mg qdmetoprol ol 12.5 mg bidmonitor bp and need to titrate Minimal co gnitive impairment 930108090 G31.84 appears mild at baselinemo nitor cognitive function and need to invoke Gastroesop hageal reflux disease without esophagitis 686986203 K21.9 protonix 40 mg qdmonitor sx relief Chronic re tention of urine 389938275 R33.8 contflomax 0.4 mg qdmonitor for retentionu rology eval prn Chronic back pain 317671 002 G89.29 off oxy with concern contributi ng to fall riskfollow ed by orthodo not rec restarting Insomnia 591412242 G47.0 9 melatonin 10 mg qhsmonitor for effect Asthenia 11737878 R53.1 Weak at baseline, is now TTWB [...] fallssee above asthenia History of pulmonary embolus 961401460 Z86.711 ContinueEl iquis 5 mg BIDMonitor 05/01/24 refer for pulmonolog y consult for report of sob with activity, intermitte nt o2 sats, etc...? sob related to panic/anxi ety or something more Overactive urinary bladder 203814627 N32.81 Continueta msulosin 0.4 mg qd and gemtesa 75 mg qdMonitor Health Concerns Section Related Observation LastModified by Organization Detai ls LastModified Time None Recorded Concern Status LastModified by Organization Details LastModified Time None Recorded Payers Encounter Date Sequence Insurance Name Policy Number Policy Hood Covered Member ID Hood Member ID Guarantor Name 05/08/2024 2 [place] [id number] Ottoniel Salas [id number] Ottoniel Salas 05/08/2024 1 [place] [employer] Ottoniel Salas [id number] Ottoniel Salas Notes Date Note Type Note Provider Name and Address Organization Details Recorded Time 05/08/2024 text/html Pt is seen for a n acute visit summary. Pt is a 78 yo male with pmh hx above sig for afib on xarelto presented to [facility] ER after being found on the floor [...] hospital as per mol from LAVERNE Brito, DIONICIO [address] [facility], [address], [place], [address], [facility] [facility] 05/08/2024 22:07:00
--- OUTSIDE RECORDS SUMMARY | 2024-06-04 14:55 | XMS_ITS | Data Portability ---
Author Organization [facility], Main Office Address [address], [address] [place] [address] Care Team Providers Care Shallot Packer Name Role Phone DIYA MARIN - 2ND FLOOR OTHER CHINA ALMARAZ Primary Care Provider [phone] Assessment Encounter Date Assessment Date Assessment LastModified [...] Time History of total hip arthroplast y [id number] Active 2019 Crista patel, [facility] 0 12:56:15 Gastroesoph ageal reflux disease without esophagitis 402576824 Active 2019 Crista patel, [facility] 0 12:56:19 Mixed anxiety and depressive disorder 092690413 Active 2019 Crista patel, [facility] 0 12:56:21 Essential hypertensio n 84418173 Active 2019 Crista patel, [facility] 0 12:56:23 History of malignant neoplasm of prostate 339551311 Active 2019 Crista patel, [facility] 0 12:56:26 COVID-19 122400611 Active 2019 Crista Vanessa null, [facility] 0 12:56:41 Anemia due to blood loss 666320116 Active 2019 Crista Vanessa null, [facility] 0 12:58:53 Reduction of dislocation of hip Active 2019 ROSANA VILLEDA NP [address], [address], [place], [address], [facility] 0 08:57:29 Open wound 590316319 Active 2019 ROSANA VILLEDA NP [address], [place], [address], [facility] 0 09:01:46 Pulmonary embolism 16018656 Active 2019 ROSANA VILLEDA NP [address], [place], [address], [facility] 0 09:03:09 Fall Active 2019 ROSANA VILLEDA NP [address], [place], [address], [facility] 0 10:40:41 Postoperati ve wound infection 80764937 Active 2019 Smitha Sparks MD [address], [place], [address], [facility] 0 00:12:33 Dislocation of hip joint prosthesis 643953781 Active 2019 Smitha Sparks MD [address], [place], [address], [facility] 0 00:12:36 Insomnia 526269534 Active 2019 Smitha Sparks MD [address], [place], [address], [facility] 0 00:21:52 Chronic back pain 424581181 Active 2019 Smitha Sparks MD [address], [place], [address], [facility] 0 00:22:56 Gout 24251968 Active 2019 Priya Le MD [address], [address], [place], [address], [facility] 0 14:03:47 Minimal cognitive impairment 152208553 Active 2019 Smitha Sparks MD [address], [place], [address], [facility] 0 16:44:57 Paroxysmal atrial fibrillatio n 943843522 Active 2022 ALEXIS DOLAN NP [address], [address], [place], [address], [facility] 3 15:10:55 History of pulmonary embolus 842759862 Active 2022 ALEXIS DOLAN NP [address], [address], [place], [address], [facility] 3 15:11:44 Delirium 3242890 Active 2022 ALEXIS DOLAN NP [address], [address], [place], [address], [facility] 3 15:27:16 Surgical incision wound of skin 370595046243 Active 2022 ROSANA VILLEDA NP [address], [address], [place], [address], [facility] 3 14:38:56 Abrasion 584393378 Active 2022 Antonieta Brito NP [address], [address], [place], [address], [facility] 3 10:17:57 Asthenia 69854753 Active 2022 ALEXIS DOLAN NP [address], [address], [place], [address], [facility] 3 16:13:31 Hernia of anterior abdominal wall 005664058 Active 2022 Antonieta Brito NP [address], [address], [place], [address], [place] [facility] 3 16:23:51 Hypoxia 932931838 Active 2022 Antonieta Brito NP [address], [address], [place], [address], [facility] [employer] [facility] 3 11:25:28 Altered mental status 821848177 Active 2022 Antonieta Brito NP [address], [address], [place], [address], [facility] 3 11:31:49 Loose stool 447088247 Active 2022 Antonieta Brito NP [address], [place], [address], [facility] 3 09:25:29 Headache 94047681 Active 2022 Antonieta Brito NP [address], [address], [place], [address], [facility] 3 09:40:59 Weight decreased 351696991 Active 2022 Antonieta Brito NP [address], [place], [address], [facility] 3 09:42:25 Hemorrhoids 11293275 Active 2022 Antonieta Brito NP [address], [place], [address], [facility] 3 08:25:10 Seasonal allergy 447340533 Active 2023 Antonieta Brito NP [address], [address], [place], [address], [facility] 4 12:19:01 Hearing loss 89926006 Active 2024 Ayo Jeffrey MD [address], [place], [address], [facility] 5 09:57:58 Problem Notes None recorded. Medical Equipment None Reported. Allergies Allergen ID Allergen Name Allergen Category Reaction Reaction Severity Criticality Documentation Date Start Date Code Code System Note Provider Name and Address Organization Details Recorded Time 32847 Non-stero idal anti-infl ammatory agent (product) medicatio n Not available Not available Not available 11/17/2019 24545 005 SNOMED Not Available Not Available Not Available 97647 hydrochlo rothiazid e medicatio n Not available Not available Not available 11/17/2019 5487 RxNorm Not Available Not Available Not Available 44638 aspirin medicatio n Not available Not available Not available 11/17/2019 1191 RxNorm Not Available Not Available Not Available 45046 codeine medicatio n Not available Not available Not available 11/17/2019 2670 RxNorm Not Available Not Available Not Available 36443 Topamax medicatio n Not available Not available Not available 11/17/2019 47422 3 RxNorm Not Available Not Available Not Available Soma medicatio n Not available Not available Not available 11/17/2019 84651 2 RxNorm Not Available Not Available Not [...] Details Last Updated DateTime 5 182.88 cm 55140.5 8 g 28.8 kg/m2 95 /min 16 /min 97.6 [degF] 94 % 94 % 2 L/min 135 mm[Hg] 93 mm[Hg] Antonieta Brito NP [address], [address], [place], [address] 5 09:07:31 Date Recorded Body height Systolic blood pressure Diastolic blood pressure Provider Name and Address Organization Details Last Updated DateTime 05/02/2024 182.88 cm 135 mm[Hg] 60 mm[Hg] Ayo Jeffrey MD [address], [address], [place], [address], [facility] 05/02/2024 09:38:01 Date Recorded Body height Body mass index (BMI) Body weight Heart rate Respiratory rate Body temperature Oxygen saturation Oxygen saturation in Arterial blood by Pulse oximetry Systolic blood pressure Diastolic blood pressure Provider Name and Address Organization Details Last Updated DateTime 5 182.88 cm 29.6 kg/m2 67246.1 4 g 78 /min 18 /min 98.1 [degF] 95 % 95 % 132 mm[Hg] 70 mm[Hg] Antonieta Brito NP [address], [address], [place], [address], [facility] 21:51:05 Date Recorded Body height Body mass index (BMI) Body weight Heart rate Respiratory rate Body temperature Oxygen saturation Oxygen saturation in Arterial blood by Pulse oximetry Systolic blood pressure Diastolic blood pressure Provider Name and Address Organization Details Last Updated DateTime 5 182.88 cm 30 kg/m2 560176. 91 g 78 /min 18 /min 98.2 [degF] 96 % 96 % 157 mm[Hg] 64 mm[Hg] Antonieta Brito NP [address] [facility] [address], [place], [address], [facility] 5 09:17:40 Date Recorded Body height Body mass index (BMI) Body weight Heart rate Respiratory rate Body temperature Oxygen saturation Oxygen saturation in Arterial blood by Pulse oximetry Systolic blood pressure Diastolic blood pressure Provider Name and Address Organization Details Last Updated DateTime 5 182.88 cm 30 kg/m2 355285. 91 g 67 /min 18 /min 98.2 [degF] 97 % 97 % 132 mm[Hg] 74 mm[Hg] Antonieta Brito NP [address] [facility] [address], [place], [address], [facility] 5 09:24:48 Social History Question Answer Notes LastModified by Organizat ion Details LastModified Time Tobacco Smoking Status Former Smoker Quit 40 years ago Not Available [employer] 02/23/2020 03:13:21 Do You Have An Advance Directive? Yes [email or web address] Information not available 09/27/2022 What Is Your Level Of Alcohol Consumption? None [id number] Information not available 02/23/2020 How Much Tobacco Do You Chew? None [id number] Information not available 02/23/2020 What Is Your Code Status? DNR/DNI No Dialysis, No Artificial Nutrition Information not available 09/27/2022 Do You Or Have You Ever Used E-cigarettes Or Vape? Never Used Electronic Cigarettes [id number] Information not available 02/23/2020 Where Do You Live? Apartment Lives Alone [email or web address] Information not available 11/19/2023 Legal Guardian? No Informati on not available 09/28/2022 Do You Have A Medical Power Of Therapy Coordinator? Yes Has HCP, Not Invoked Information not available 09/28/2022 What Was The Date Of Your Most Recent Tobacco Screening? 05/01/2024 Information not available 05/01/2024 Do You Have An Out Of Hospital DNR? Yes Information not available 09/28/2022 What Is Your Relationship Status? Information not available 09/28/2022 Do You Or Have You Ever Used Smokeless Tobacco? Never Used Smokeless Tobacco [id number] Information not available 02/23/2020 Do You Use Any Illicit Or Recreational Drugs? No Information not available 09/27/2022 Has Tobacco Cessation Counseling Been Provided? No N/a As Pt No Longer Smokes Information not available 09/28/2022 How Many Years Have You Smoked Tobacco? 15 [id number] Information not available 02/23/2020 Do You Or Have You Ever Used Any Other Forms Of Tobacco Or Nicotine? No [email or web address] Information not available 09/27/2022 Sex: Unknown Functional Status None recorded. Mental Status None recorded. Family History Relationship Description Onset Age of this Age Resolved Age Notes LastModified by Organization Details LastModified Time Mother Malignant tumor of breast [email or web address] Not available 2022 14:44:55 Mother Malignant tumor of lung [email or web address] Not available 2022 14:45:08 Notes:father: , dm, ARF, glaucoma Medical History No medical history recorded. Immunizations Vaccine Type Date Status Note Provider Nam e and Address Organization Details Recorded Time Influenza, adjuvanted, quadrivalent, PF 3 completed Page Dugan [facility] 06/14/2023 16:55:16 Influenza, adjuvanted, quadrivalent, PF 2 completed Page Dugan [facility] 06/14/2023 16:56:38 Influenza, split virus, quadrivalent, preservative 0 completed Ana Elliott [facility] 02/19/2020 11:13:50 SARS-COV-2 (COVID-19) vaccine, UNSPECIFIED 3 completed Ileana Amaya [facility] 11/19/2023 10:17:34 Td(adult) unspecified formulation 8 completed Ileana Amaya [facility] 11/22/2023 15:52:58 Pneumococcal conjugate PCV 13 7 completed Ileana Amaya [facility] 11/22/2023 15:53:12 pneumococcal polysaccharide PPV23 4 completed Ileana Amaya [facility] 11/22/2023 15:53:30 pneumococcal polysaccharide PPV23 8 completed Ileana Amaya [facility] 11/22/2023 15:53:36 pneumococcal polysaccharide PPV23 0 completed Ileana Amaya [facility] 11/22/2023 15:53:43 SARS-COV-2 (COVID-19) vaccine, UNSPECIFIED 1 completed [facility] 15:54:14 SARS-COV-2 (COVID-19) vaccine, UNSPECIFIED 1 completed [facility] 15:54:22 SARS-COV-2 (COVID-19) vaccine, UNSPECIFIED 1 completed Ileana Amaya [facility] 11/22/2023 15:54:39 zoster, unspecified formulation 8 completed Ileana Jose Luis [facility] 11/22/2023 15:55:00 zoster, unspecified formulation 8 completed Ileana Amaya [facility] 11/22/2023 15:55:12 Past Encounters Encounter ID Performer Location Encounter Start Date Encounter Closed Date Diagnosis/Indication Diagnosis SNOMED-CT Code Diagnosis ICD10 Code Diagnosis Note [id number] Crista MONIQUE [address] [place] [address] 11/17/2019 11:37:30 11/26/2019 12:24:41 History of total hip arthroplasty 6476545449 06 Z96.642 s/p revision left total hip arthroplas tyfollow ortho recsOn coumadin for DVT prophylaxi sTramadol and oxycodone PRN painPT OT eval and treatMonit or for pain control and constipati on Gastroesop hageal reflux disease without esophagitis 809686836 K21.9 Protonix 40 mg dailyMonit or sxs Mixed anxi ety and depressive disorder 253283745 F41.8 Ativan 1 mg BID prnVenlafa xine ER 150 mg dailyDepak ote 500 mg dailyMonit or moodPsych eval prn Essential hypertension 23222623 I10 Norvasc 10 mg dailyMonit or bp and labs History of malignant neoplasm of prostate 428954655 Z85.46 Alfuzosin 10 mg QOD COVID-19 226994311 U07.1 COVID positive 7/20Minima l sxs currentlyS upportive careMonito r Anemia due to blood loss 306390563 D50.0 s/p transfusio nrepeat and monitor CBC [id number] DEMOND LORD CRAVEN ENEIDA [address] [place] [address] 11/18/2019 09:29:10 11/26/2019 12:37:51 History of total hip arthroplasty 4078717225 06 Z96.642 s/p revision left total hip arthroplas tyfollow ortho recsOn coumadin for DVT prophylaxi sTramadol and oxycodone PRN pain COVID-19 093432384 U07.1 COVID positive 7/20Minima l sxs currentlyt ransfer to [facility] facility today Anemia due to blood loss 415710068 D50.0 s/p transfusio nrepeat and monitor CBC Gastroesop hageal reflux disease without esophagitis 711307419 K21.9 Protonix 40 mg daily Mixed anxi ety and depressive disorder 750090550 F41.8 Ativan 1 mg BID prnVenlafa xine ER 150 mg dailyDepak ote 500 mg daily Essential hypertension 61891359 I10 Norvasc 10 mg dailyMonit or bp and labs History of malignant neoplasm of prostate 957076962 Z85.46 Alfuzosin 10 mg QOD [id number] DIONICIO AREVALO [address] [place] [address] 12/29/2019 08:51:18 01/08/2020 08:40:35 COVID-19 340346772 U07.1 monitor respirator y and gi status consider ivf if anorexia occurs Essential hypertension 65028335 I10 amlodipine 10 mg daily monitor bp Gastroesop hageal reflux disease without esophagitis 951786600 K21.9 omeprazole 40 mg daily Mixed anxi ety and depressive disorder 366798859 F41.8 effexor er 150 mg daily trazadone 50-100 mg hs prn History of total hip arthroplasty 4102247834 06 Z96.649 monitor right hip wound PT OT eval and treat s/p reduction of dislocatio n followup with ortho 12/30 blaclofen 10 mg tid prn Open wound 292530101 T14 .8XXA wound vac followup appt with ortho 3 Pulmonary embolism 41696 003 I26.99 eliquis 5 mg bid for 6 months starting 12/27 monitor any signs bleeding or respirator y issues History of malignant neoplasm of prostate 333896884 Z85.46 alfuzosin 10 mg daily Fall W19.XXXA PT OT eval and treat [id number] MD BEV Rogers [address] [place] [address] 12/31/2019 14:21:23 01/08/2020 09:14:16 COVID-19 449189362 U07.1 Initial + COVID test >1 month ago. No further sxs. an come off precaution s by sxs and time criteria, but still testing +, so by facility protocols will still be on precaution s. Monitor for sequelae. Essential hypertension 15318858 I10 Good control on amlodipine 10 mg qd. Monitor BP and labs. Gastroesop hageal reflux disease without esophagitis 772043839 K21.9 No current sxs. Continue omeprazole 40 mg qd. Monitor sxs. Mixed anxi ety and depressive disorder 758473450 F41.8 With several anxiety attacks since here. Seems like episode AM 12/28 was an anxiety attack. Continue effexor ER 150 mg qd and lorazepam 2 mg q 4 hrs prn. Monitor mood. Psych consult prn. Pulmonary embolism 90667 003 I26.99 No current sxs. Continue eliquis 5 mg BID for 6 months starting 12/27 Monitor sxs. History of malignant neoplasm of prostate 363865574 Z85.46 Continue alfuzosin 10 mg qd. F/U with uro Fall W19.XXXA PT/OT as above. Dislocatio n of hip joint prosthesis 393058477 T84.021D It seems like this last surgery [...] appt was postponed. Postoperat jessi wound infection 95956917 T81.42XD Resolved inpt. Still has wound vac on. Was supposed to be removed by ortho today, but appt. postponed. Monitor drainage (none currently) . Insomnia 726266538 G47.0 9 Will schedule trazadone 50 mg qhs. Monitor sleep patterns. Chronic back pain 136701 002 M54.5 Pain management as above. Also baclofen 10 mg q 8 hrs prn. F/U with Dr. Sanchez as planned. [id number] DIONICIO AREVALO [address] [place] [address] [place] [address] 01/06/2020 08:22:44 01/08/2020 11:27:24 Open wound 664441420 T14.8XXA wound vac followup appt with ortho 12/30-cancel ed due to covid+ Mixed anxi ety and depressive disorder 732264796 F41.8 effexor er 150 mg daily trazadone 50-100 mg hs prn [id number] [place] [address] 01/08/2020 12:50:16 01/12/2020 15:39:10 Dislocation of hip joint prosthesis 654506625 Z96.649 Continue PT/OT for strengthen ing, ROM, gait training and function, within limits of ortho recs Mixed anxi ety and depressive disorder 583547547 F41.8 effexor er 150 mg daily trazadone 50-100 mg hs prn [id number] [place] [address] 01/12/2020 11:23:31 01/14/2020 15:24:02 COVID-19 895138871 U07.1 monitor respirator y and gi status consider ivf if anorexia occurs Dislocatio n of hip joint prosthesis 951033488 Z96.649 Continue PT/OT for strengthen ing, ROM, gait training and function, within limits of ortho recs Open wound 600338497 T14 .8XXA wet to dry dressings followup appt with ortho 12/30-cancel ed due to covid+ new ortho appt to be scheduled [id number] DIONICIO AREVALO [address] [place] [address] 01/19/2020 10:46:06 01/21/2020 09:23:18 Anemia due to blood loss 529705008 D50.0 monitor labs Chronic back pain 126391 002 G89.29 baclofen 10 mg q 8 hrs prn. F/U with Dr. Sanchez as planned. COVID-19 922521638 U07.1 monitor respirator y and gi status consider ivf if anorexia occurs Dislocatio n of hip joint prosthesis 812878858 Z96.649 Continue PT/OT for strengthen ing, ROM, gait training and function, within limits of ortho recommenda tions fentanyl 25 mcg q72 hours hydrocodon e/acetamin ophen 5/325 q4hr prn Essential hypertension 58150616 I10 amlodipine 10 mg daily monitor bp Fall 6985787 W19.XXXA PT OT eval and treat Gastroesop hageal reflux disease without esophagitis 742368773 K21.9 omeprazole 40 mg daily History of total hip arthroplasty 7792665485 06 Z96.649 monitor right hip wound PT OT eval and treat s/p reduction of dislocatio n followup with ortho baclofen 10 mg q8 hr prn Insomnia 575525925 G47.0 0 trazadone 50 mg qhs. Mixed anxi ety and depressive disorder 050122086 F41.8 effexor er 150 mg daily trazadone 50 hs ativan 2 mg q4hr prn Postoperat jessi wound infection 20377492 T81.40XD resolved Pulmonary embolism 61525 003 I26.99 eliquis 5 mg bid for 6 months starting 12/27 monitor any signs bleeding or respirator y issues [id number] ROS[facility] [address] [place] [address] 01/26/2020 08:02:59 01/28/2020 16:16:29 Chronic back pain 475432127 G89.29 vicodin 5.325 q8hr prn Essential hypertension 75806253 I10 amlodipine 10 mg daily monitor bp Fall 7258802 W19.XXXA PT OT eval and treat encourage and remind him about walker use fall precaution s Gastroesop hageal reflux disease without esophagitis 693944278 K21.9 omeprazole 40 mg daily Mixed anxi ety and depressive disorder 889612199 F41.8 effexor er 150 mg/37.5 mg depakote 250 mg qd trazadone 25 mg hs ativan 2 mg q12hr prn [id number] MD BEV Colón PIPER [address] [place] [address] 01/29/2020 08:27:28 02/03/2020 09:52:59 Chronic back pain 405141364 G89.29 hydrocodon e-APAP 5-325: one tablet q8h prnAPAP 650 mg q6h prnwill monitor COVID-19 520492793 U07.1 Patient was initially diagnosed 11/17/19.He is recovered at this time. Essential hypertension 10333050 I10 amlodipine 10 mg dailywill monitor Gastroesop hageal reflux disease without esophagitis 659207092 K21.9 omeprazole 40 mg dailywill monitor Mixed anxi ety and depressive disorder 257279343 F41.8 lorazepam 2 mg q12h prnvenlafa xine 187.5 mg dailydival proex ER 250 mg dailytrazo done 25 mg at hswill monitor Gout 49865534 M10.09 colchicine 0.6 mg dailywill monitor Cobalamin deficiency 190 514806 E53.8 B12 1000 mcg IM monthlywil l monitor Unsteady when walking 22 992640 R26.89 PT/OT will try to minimize fall risk Compressio n fracture of thoracic spine 620799458 S22.080D PT/OT see meds for chronic back pain [id number] Smitha Sparks MD [address] [address] 02/02/2020 15:45:40 02/11/2020 12:47:56 Minimal cognitive impairment 571113629 G31.84 Could be sequelae from COVID vs. depression vs. early dementia. Will encourage activity and socializat ion as able. I have given pt. permission to walk in hallway despite 2nd COVID test still pending. Pt. wearing N-95 mask when walking in hallway. Psych eval for further assessment . COVID-19 947617965 U07.1 As above. Monitor for sequelae. Mixed anxi ety and depressive disorder 524628453 F41.8 Says he will be better with increased activity. Continue effexor ER 150 mg qd and lorazepam 2 mg q 4 hrs prn. Monitor mood. Psych consult [id number] DIONICIO AREVALO PIPER [address] [place] [address] 02/05/2020 08:57:34 02/09/2020 12:37:14 Chronic back pain 942637975 G89.29 vicodin 5.325 q8hr prn COVID-19 191075072 U07.1 monitor respirator y and gi status consider ivf if anorexia occurs Essential hypertension 44469920 I10 amlodipine 10 mg daily monitor bp Fall 5970946 W19.XXXA PT OT eval and treat encourage and remind him about walker use fall precaution s Gastroesop hageal reflux disease without esophagitis 463216253 K21.9 omeprazole 40 mg daily Minimal co gnitive impairment 336289390 G31.84 Could be sequelae from COVID vs. depression vs. early dementia. Will encourage activity and socializat ion as able. Pt. wearing N-95 mask when walking in hallway. Psych eval for further assessment . Mixed anxi ety and depressive disorder 847548630 F41.8 effexor er 150 mg/37.5 mg depakote 250 mg qd trazadone 25 mg hs ativan 2 mg q12hr prn [id number] ALEXIS DOLAN NP [facility] [address] [place] [address] 09/27/2022 14:16:16 10/02/2022 09:19:15 Dislocation of hip joint prosthesis 425268918 Z96.649 s/p pTHA revision.P T OT eval [...] Cheema 11/02 Anemia due to blood loss 580728189 D50.0 s/p 2 units PRBCsFe level low in hosp., but Fe not started. Consider starting if H/H slow to improve.Mo nitor CBC closelyOn lower dose of AC for now (see above) Delirium 9873235 F09 Problemati c in hosp., felt related to oxycodone. Monitor cognition here, quite stable at presentCon tinue to use oxycodone with caution, adjsut dosing/med prn Paroxysmal atrial fibrillation 002381124 I48.0 Continue:E liquis for AC, 2.5 mg bid due to recent bleeding, then increase to 5 mg bid on etopro lol 25 mg bidMonitor VS, labs, adjust meds prn Essential hypertension 01253770 I10 Continue:N orvasc 2.5 mg dailyMetop rolol 25 mg bidMonitor VS, adjust meds prn Mixed anxi ety and depressive disorder 210040772 F41.8 followed by psychiatry as outpt.Cont inue usual meds:Depak ote 500 mg q moses.Ativan 1 mg q 12 hrs prn x 14 days, then re-evalVen lafaxine ER 150 mg daily [id number] Smitha Sparks MD [address] [address] 09/28/2022 17:05:58 10/05/2022 12:58:36 Dislocation of hip joint prosthesis 292450877 T84.021D S/P multiple problems with left hip [...] Cheema, 11/02 Anemia due to blood loss 507761972 D50.0 Hgb improving. Consider adding iron supplement (with vitamin C).Monitor labs. Delirium 6121106 F09 See above, unclear if delerium or dementia/p sych stuff.Cont inue to monitor effect of meds for pain and anxiety.Ps ych consult. Paroxysmal atrial fibrillation 504210923 I48.0 Rate in good control on metoprolol 25 mg BIDContinu e eliquis 5 mg BID for AC.Monitor HR and bleeding risk. Essential hypertension 09705053 I10 BP low on admission, not rechecked since then.James nue amlodipine 2.5 mg qd and metoprolol 25 mg BIDAsked for daily BPs.Monito r labs. Mixed anxi ety and depressive disorder [id number] F41.8 Very agitated tonight, doesn't seem oriented.W ill invoke HCP.Contin ue Depakote 500 mg qd, venlafaxin e 150 mg qd and will increase lorazepam to 1 mg q 6 hrs prn.Monito r mood and behaviors. Consult psych COVID-19 [id number] U07.1 Initial + COVID test >1 month ago. No further sxs. an come off precaution s by sxs and time criteria, but still testing +, so by facility protocols will still be on precaution s. Monitor for sequelae. Pulmonary embolism 07856 003 I26.99 Hx of.On Eliquis at baseline for Afib.Monit or for recurrent sxs. Gastroesop hageal reflux disease without esophagitis 839150195 K21.9 No current sxs.Contin ue omeprazole 40 mg qdMonitor sxs. History of malignant neoplasm of prostate 443489616 Z85.46 No longer on alfuzosinF /U with uro as planned. Chronic back pain 509561 002 G89.29 Pain management as above F/U with Dr. Lara as planned. [id number] JADE Melton [address] [address] 10/02/2022 10:50:53 10/05/2022 15:18:26 Dislocation of hip joint prosthesis 752484843 Z96.649 s/p pTHA revisionco ntinue PT OTWBATAPAP 650 mg tidoxycodo ne 5 or 10 mg q 4 hrs prnwatch MS/deliriu m, hold med for oversedati on.Eliquis for AC - currently 2.5 mg bid, increase to 5 mg bid on 10/04monitor incision, wound vacFollow up with Dr. Cheema 11/02 Anemia due to blood loss 380894573 D50.0 s/p 2 units PRBCshgb improved to 8.8 on 10/01 from 8.1 on e level low in hospital, but Fe not startedCon visual merchandising assistant starting Fe if H/H slow to improveMon itor CBC closely Delirium 3593195 F09 Problemati c in hospital, felt related to oxycodone. use oxycodone with cautionadj ust dosing/med prn Paroxysmal atrial fibrillation 056539523 I48.0 Eliquis for AC, 2.5 mg bid due to recent bleeding, then increase to 5 mg bid on 10/04Metopro lol 25 mg bidMonitor for rate control, bleeding Essential hypertension 40170837 I10 bp normalNorv asc 2.5 mg qdMetoprol ol 25 mg bidMonitor bp and adjust dose prn Mixed anxi ety and depressive disorder 384497842 F41.8 followed by psychiatry as outptDepak ote 500 mg q pmAtivan 1 mg q 12 hrs prn - re-eval on 10/10Venlaf axine ER 150 mg qdmonitor mood [id number] JADE BELLE [facility] [address] [place] [address] 10/04/2022 11:31:00 10/11/2022 16:01:04 Dislocation of hip joint prosthesis 759537403 T84.021D s/p pTHA revisionwo und vac removed 10/01 due to malfunctio ningcontin ue PT OTWBATAPAP 650 mg tidoxycodo ne 5 or 10 mg q 4 hrs prn monitor for delirium and hold for sedation.e liquis for AC -increase to 5 mg bid on gb 8.8monitor incision for s/sx infectionF ollow up with Dr. Cheema 11/02 Anemia due to blood loss 939778816 D50.0 Hgb improving 8.8Conside r adding iron supplement (with vitamin C)Monitor labs will recheck on 10/08 Mixed anxi ety and depressive disorder 559277391 F41.8 Continue Depakote 500 mg qdvenlafax ine 150 mg qdlorazepa m to 1 mg q 6 hrs prn.Monito r for mood and behavior changesCon sult psych prn Delirium 4781509 F09 See above, unclear if delerium or dementia/p sych stuff.Cont inue to monitor effect of meds for pain and anxiety.[facility]. Paroxysmal atrial fibrillation 085789947 I48.0 HR 84continue metoprolol 25 mg BIDContinu e eliquis 5 mg BID for AC.Monitor HR and bleeding risk.monit or VS and clinical sx changes. Essential hypertension 93015180 I10 BP low on admission, not rechecked since then.James nue amlodipine 2.5 mg qd and (metoprolo l 25 mg BID- added parameter to hold for < 120)monito r VSMonitor labs as needed. Gastroesop hageal reflux disease without esophagitis 794267809 K21.9 No current sxs.Contin ue omeprazole 40 mg qdmonitor clinical sx changes Pulmonary embolism 78008 003 I26.99 Hx of.On Eliquis at baseline for Afib.Monit or for recurrent sxs. Chronic back pain 471505 002 G89.29 Pain management as above F/U with Dr. Lara as planned. History of malignant neoplasm of prostate 618396926 Z85.46 No longer on alfuzosinF /U with uro as planned. COVID-19 184357654 U07.1 Initial + COVID test >1 month ago. No further sxs. an come off precaution s by sxs and time criteria, but still testing +, so by facility protocols will still be on precaution s. Monitor for sequelae. [id number] JADE BELLE [address] [address] 10/08/2022 16:25:55 10/11/2022 16:19:59 Dislocation of hip joint prosthesis 532709623 T84.021D s/p pTHA revisionwo und vac removed [...] next appt. Anemia due to blood loss 045232835 D50.0 Hgb improving 9.4Conside r adding iron supplement (with vitamin C)Monitor labs Mixed anxi ety and depressive disorder 490889037 F41.8 Continue Depakote 500 mg qdvenlafax ine 150 mg qdlorazepa m to 1 mg q 6 hrs prn.Monito r for mood and behavior changesCon sult psych prn Delirium 2875401 F09 no reported behavior concerns.S ee above, unclear if delerium or dementia/p sych stuff.Cont inue to monitor effect of meds for pain and anxiety.Ps [facility]. Paroxysmal atrial fibrillation 081377043 I48.0 continue metoprolol 25 mg BIDContinu e eliquis 5 mg BID for AC.Monitor HR and bleeding risk. monitor for abn bruising/b leedingmon itor VS and clinical sx changes. Essential hypertension 24211366 I10 BP low on admission, not rechecked since then.James nue amlodipine 2.5 mg qd and (metoprolo l 25 mg BID- added parameter to hold for < 120)monito r VSMonitor labs as needed. Gastroesop hageal reflux disease without esophagitis 143409699 K21.9 No current sxs.Contin ue omeprazole 40 mg qd monitor clinical sx changes Pulmonary embolism 77618 003 I26.99 Hx of.On Eliquis at baseline for Afib.Monit or for recurrent sxs. Chronic back pain 811115 002 G89.29 Pain management as above F/U with Dr. Lara as planned. History of malignant neoplasm of prostate 651503916 Z85.46 No longer on alfuzosinF /U with uro as planned. COVID-19 612851904 U07.1 Initial + COVID test >1 month ago. No further sxs. an come off precaution s by sxs and time criteria, but still testing +, so by facility protocols will still be on precaution s. Monitor for sequelae. 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 [id number] ALEXIS DOLAN NP [facility] [address] 10/10/2022 12:31:45 10/12/2022 09:40:08 Dislocation of hip joint prosthesis 479179167 T84.021D s/p pTHA revisionWa s in extreme [...] reschedule . Anemia due to blood loss 982994618 D50.0 Hgb improving - 9.4Monitor labs Mixed anxi ety and depressive disorder 836730844 F41.8 Continue Depakote 500 mg qdvenlafax ine 150 mg qdlorazepa m to 1 mg q 6 hrs prn.Monito r for mood and behavior changesCon sult psych prn Delirium 6094260 F09 no reported behavior concerns.S ee above, unclear if delerium or dementia/p sych stuff.Cont inue to monitor effect of meds for pain and anxiety.[facility]. Paroxysmal atrial fibrillation 734598878 I48.0 continue metoprolol 25 mg BIDContinu e eliquis 5 mg BID for AC.Monitor HR and bleeding risk.monit or VS and clinical sx changes. Essential hypertension 09172775 I10 Currently on amlodipine 2.5 mg qd and metoprolol 25 mg BIDmonitor VS dailyMonit or labs as needed. Gastroesop hageal reflux disease without esophagitis 388415621 K21.9 No current sxs.Contin ue omeprazole 40 mg qd monitor clinical sx changes Pulmonary embolism 36456 003 I26.99 Hx of.On Eliquis at baseline for Afib.Monit or for recurrent sxs. Chronic back pain 464112 002 G89.29 Pain management as above F/U with Dr. Lara as planned. fall W19.XXXA unwitnesse d fall 10/07 in roomDue to acute issues with back pain this am, checking T-L spine x rays to r/o injury/fra ctureneuro checks per protocolla bs stable. [id number] ALEXIS DOLAN, DIONICIO [facility] [address] [facility] [place] [place] [address] 10/15/2022 11:34:31 10/17/2022 08:25:24 Dislocation of hip joint prosthesis 002335946 T84.021D s/p pTHA revisionHa d Ortho follow up the end of last week, and lala brandony his hip dislocated again at the office.He is now NPO and will be headed back to [facility] for more surgery.Cu rrently in bed, NAD, discourage d he needs more surgery. Emotional support provided. fall W19.XXXA unwitnesse d fall 10/07 in roomDue to acute issues with back pain last week, checked T-L spine x rays - no acute process noted.neur o checks per protocolla bs stable. Anemia due to blood loss 398071471 D50.0 Hgb improving - 9.4Monitor ing labs Mixed anxi ety and depressive disorder 168887454 F41.8 Continue Depakote 500 mg qdvenlafax ine 150 mg qdlorazepa m to 1 mg q 6 hrs prn.Monito r for mood and behavior changesCon sult psych prn Delirium 9385755 F09 no reported behavior concerns.S ee above, unclear if delerium or dementia/p sych stuff.Cont inue to monitor effect of meds for pain and anxiety.[facility]. Paroxysmal atrial fibrillation 939785362 I48.0 continue metoprolol 25 mg BIDContinu e eliquis 5 mg BID for AC.Monitor HR and bleeding risk.monit or VS and clinical sx changes. Essential hypertension 57432630 I10 Currently on amlodipine 2.5 mg qd and metoprolol 25 mg BIDmonitor VS dailyMonit or labs as needed. Gastroesop hageal reflux disease without esophagitis 469156486 K21.9 No current sxs.Contin ue omeprazole 40 mg qd monitor clinical sx changes Pulmonary embolism 58805 003 I26.99 Hx of.On Eliquis at baseline for Afib.Monit or for recurrent sxs. Chronic back pain 583833 002 G89.29 Pain management as above F/U with Dr. Lara as planned. [id number] ROSANA VILLEDA NP [facility] [address] 10/20/2022 12:48:18 10/24/2022 09:08:53 Surgical incision wound of skin 3011902043 00 R23.[address], change per surgical recommenda tionsfollo wup with ortho 10/29 and 11/30wound consult Dislocatio n of hip joint prosthesis 105214267 Z96.649 s/p pTHA revision.P T OT eval and tx.WBATAPA P 650 mg tid sched.dila udid 2 mg q4hr prnbaclofe n 5 mg tid prnEliquis for AC - currently 2.5 mg bid , then increase to 5 mg bid on 10/02. NEEDS CLARIFICAT IONFollow VS, labs, pain, CSM for changeFoll ow up with Dr. Cheema 10/29 and 11/30 Anemia due to blood loss 084313475 D50.0 s/p 2 units PRBCs on previous admissionC onsider starting iron if H/H slow to improve.Mo nitor CBC closelyOn lower dose of AC for now (see above) Paroxysmal atrial fibrillation 550453606 I48.0 Continue:E liquis for AC, 2.5 mg bid due to recent bleeding, then increase to 5 mg bid on etopro lol 25 mg bidMonitor VS, labs, adjust meds prn Essential hypertension 98749789 I10 Continue:N orvasc 2.5 mg dailyMetop rolol 25 mg bidMonitor VS, adjust meds prn Mixed anxi ety and depressive disorder 087584849 F41.8 followed by psychiatry as outpt.Cont inue usual meds:Depak ote 500 mg q moses.Ativan 1 mg q 12 hrs prn x 14 days, then re-evalVen lafaxine ER 150 mg daily Gastroesop hageal reflux disease without esophagitis 992528442 K21.9 protonix 40 mg daily Fall 7484212 W19.XXXA PT OT eval and treat encourage and remind him about walker use fall precaution s [id number] Antonieta Brito NP [facility] [address] [address] 10/23/2022 09:29:47 10/25/2022 10:25:09 Surgical incision wound of skin 6190055448 00 R23.[address], change per surgical recommenda tionsfollo wup with ortho 10/29 and 11/30wound consult Dislocatio n of hip joint prosthesis 886251749 Z96.649 s/p pTHA revision.P T OT eval and tx.WBATAPA P 650 mg tid sched.10/23 start dilaudid 2 mg po bidand dilaudid 2-4 mg q4hr prn for painbaclof en 5 mg tid prnEliquis for AC 5 mg bid for hx of PE.Follow VS, labs, pain, CSM for changeFoll ow up with Dr. Cheema 10/29 and 11/30 Anemia due to blood loss 670508238 D50.0 labs stable on 10/19s/p 2 units PRBCs on previous admission with wound vac nowConside r starting iron if H/H slow to improve.Mo nitor CBC closelyOn lower dose of AC for now (see above) Paroxysmal atrial fibrillation 613163448 I48.0 ContEliqui s for AC 5 mg bid for hx of PE per notesMetop rolol 25 mg bidMonitor VS, labs, adjust meds prn Essential hypertension 54896718 I10 bp stable,Con tNorvasc 2.5 mg dailyMetop rolol 25 mg bidMonitor VS, adjust meds prn Mixed anxi ety and depressive disorder 506645967 F41.8 followed by psychiatry as outpt.Cont Depakote 500 mg q moses.Ativan 1 mg q 12 hrs prn x 14 days, then re-evalVen lafaxine ER 150 mg daily Abrasion 095005162 T14.8 XXA healinglef t hand abrasion noted upon return from hospital 10/19monito r left hand closely for s/s of infectionn o dressing required today [id number] ALEXIS DOLAN NP [facility] [address] [address] 10/25/2022 11:12:00 10/28/2022 19:32:27 Surgical incision wound of skin 7772567946 00 R23.[address] left hipconcern of infection at this time in light of temp, low BP, altered MS, redness and warmth left hip connor-incis ional area.Will send to ER for eval and tx.Nsg. to update Ortho of concerns and transfer. Dislocatio n of hip joint prosthesis 759484805 Z96.649 s/p pTHA revision.N ow with concern of infection as above, sending to ER for eval and tx; nsg. updating Ortho of concerns and transfer. Anemia due to blood loss 966017626 D50.0 labs stable on 10/19, but lrg. amts of sanguinous drainage in wound vacs/p 2 units PRBCs on previous admissionC onsider starting iron if H/H slow to improve.Mo nitor CBC closelyOn lower dose of AC for now (see above) Paroxysmal atrial fibrillation 793431925 I48.0 ContEliqui s for AC 5 mg bid for hx of PE per notesMetop rolol 25 mg bidMonitor VS, labs, adjust meds prn Essential hypertension 00603932 I10 bp stable,Con tNorvasc 2.5 mg dailyMetop rolol 25 mg bidMonitor VS, adjust meds prn Mixed anxi ety and depressive disorder 358300668 F41.8 Curently with increased anxietyfol lowed by psychiatry as outpt.Cont Depakote 500 mg q moses.Ativan 1 mg q 12 hrs prn x 14 days, then re-eval - may consider scheduling if remains problemati c, but riht now sending to ER for eval due to concern of left hip incision.V enlafaxine ER 150 mg daily Abrasion 238742864 T14.8 XXA healinglef t hand abrasion noted upon return from hospital 10/19monito r left hand closely for s/s of infectionn o dressing required today [id number] ALEXIS DOLAN NP [facility] [address] [place] [address] 11/15/2022 14:41:34 11/20/2022 09:05:37 Dislocation of hip joint prosthesis 831153545 Z96.649 s/p pTHA revision, complicati ons as aboveFollo w up with Ortho as sched.Cont inue:APAP prnlidoder m patch dailyOxyco done 5-10 mg q 6 hr prnBaclofe n 5 mg tid prn x 7 daysColace bid, miralax prn for bowels Anemia due to blood loss 203780908 D50.0 Required 4 units PRBCs post op.Monitor CBC q saturdayRema ins on AC, higher risk of bleed Paroxysmal atrial fibrillation 083336595 I48.0 ContEliqui s for AC 5 mg bid for hx of PE per notesMetop rolol 25 mg bidMonitor VS, labs, adjust meds prn Essential hypertension 96717584 I10 Norvasc 2.5 mg dailyMetop rolol 25 mg bidMonitor VS, adjust meds prn Mixed anxi ety and depressive disorder 871090760 F41.8 Followed by psychiatry as outpt.Cont Depakote 500 mg q moses.Ativan 1 mg q 12 hrs prn x 14 days, then re-eval - may consider scheduling if remains problemati c,Venlafax ine ER 150 mg daily Abrasion 524445894 T14.8 XXA healinglef t hand abrasion noted upon return from hospital 10/19monito r left hand closely for s/s of infectionn o dressing required today Sepsis cau sed by Escherichia coli 520397518 A41.51 sent to ER with concern of left hip infectionB C and hip aspirate grew E. Coli.Per ID, now on cefazolin 2 gm q 8 hrs x 6 weeksClini stephan improving. Current IV line not flushing, IV team called for assessment /replaceme nt ASAPCBC, CMP q saturdayID follow up 12/24 ([facility]) Asthenia [id number] R53.1 Very deconditio nedFall last night, no injuryPT OT eval and tx. [id number] ALEXIS DOLAN NP [address] [address] 11/21/2022 14:06:44 11/26/2022 08:58:43 Sepsis caused by Escherichia coli 287212904 A41.51 sent to ER with concern of left hip infectionB C and hip aspirate grew E. Coli.Per ID, now on cefazolin 2 gm q 8 hrs x 6 weeksClini stehpan improving. CBC, CMP q saturdayID follow up 12/24 ([facility]) Anemia due to blood loss 805544697 D50.0 Required 4 units PRBCs post op.Slight drop - hgb now 7.5Monitor CBC q saturday, s/s active bleedRemai ns on AC, higher risk of bleed Dislocatio n of hip joint prosthesis 748896869 Z96.649 s/p pTHA revision, complicati ons as aboveFollo w up with Ortho as sched.Cont inue:APAP prnlidoder m patch dailyChang e oxycodone: 5 mg po q 6 am, and q4 hrs prnBaclofe n 5 mg tid prn x 7 daysBowels on the softer side - stop colace bid, change miralax to daily prn. Add probiotic bid while on abx. Paroxysmal atrial fibrillation 336068242 I48.0 ContEliqui s for AC 5 mg bid for hx of PE per notesMetop rolol 25 mg bidMonitor VS, labs, adjust meds prn Essential hypertension 02973687 I10 BP on the soft side - stop Norvasc 2.5 mg dailyMetop rolol 25 mg bidMonitor VS, adjust meds prn Mixed anxi ety and depressive disorder 199797670 F41.8 Followed by psychiatry as outpt.Cont Depakote 500 mg q moses.Ativan 1 mg q 12 hrs prn x 14 days, then re-eval - may consider scheduling if remains problemati c,Venlafax ine ER 150 mg dailyMonit or mood, behaviors. Abrasion 329324510 T14.8 XXA healinglef t hand abrasion noted upon return from hospital 10/19monito r left hand closely for s/s of infectionn o dressing required today Asthenia 21863303 R53.1 Very deconditio nedFall last week, no injuryPT OT eval and tx. [id number] Antonieta Brito NP [address] [address] 11/23/2022 10:48:10 11/27/2022 15:14:46 Sepsis caused by Escherichia coli 825805974 A41.51 doing well, vss afebrilele ft hip infection with recent er visitBC and hip aspirate grew E. Coli.Per ID, now on cefazolin 2 gm q 8 hrs x 6 weeksClini stephan improving. CBC, CMP q saturdayID follow up 12/24 ([facility]) Anemia due to blood loss 943387512 D50.0 Required 4 units PRBCs post op.Slight drop - hgb now 7.5Monitor CBC q saturday, s/s active bleedRemai ns on AC, higher risk of bleed Dislocatio n of hip joint prosthesis 503753036 Z96.649 s/p pTHA revision, complicati ons as [...] bid while on abx. Paroxysmal atrial fibrillation 765128719 I48.0 ContEliqui s for AC 5 mg bid for hx of PE per notesMetop rolol 25 mg bidMonitor VS, labs, adjust meds prn Essential hypertension 02775723 I10 bp 108/69 today,BP on the soft side lately, Norvasc 2.5 mg daily stopped at last visit 11/21Metopr olol 25 mg bidMonitor VS, adjust meds prn Mixed anxi ety and depressive disorder 753194385 F41.8 Followed by psychiatry as outpt.Cont Depakote 500 mg q moses.Ativan 1 mg q 12 hrs prn x 14 days, then re-eval 11/28 - may consider scheduling if remains problemati c,Venlafax ine ER 150 mg dailyMonit or mood, behaviors. Abrasion 814262470 T14.8 XXA healing resolvedle ft hand abrasion noted upon return from hospital 10/19monito r left hand closely for s/s of infectionn o dressing required today Asthenia 33550925 R53.1 Very deconditio nedFall last week, no injuryPT OT eval and tx. [id number] Antonieta Brito, DIONICIO [facility] [address] [place] [address] 11/28/2022 08:04:23 11/30/2022 13:21:35 Sepsis caused by Escherichia coli 655436785 A41.51 doing well, vss afebrilele ft hip infection with recent er visitBC and hip aspirate grew E. Coli.Per ID, now on cefazolin 2 gm q 8 hrs x 6 weeksClini stephan improving. CBC, CMP q mondaysnew midline placed today on 11/28, will wrap with shelby wrap and long sleeve shirtif pt pulls out midline again, [facility] sending to ERID follow up 12/24 ([facility]) Anemia due to blood loss 212305672 D50.0 Required 4 units PRBCs post op.Slight drop - hgb now 7.5Monitor CBC q saturday, s/s active bleedRemai ns on AC, higher risk of bleed Dislocatio n of hip joint prosthesis 493986075 Z96.649 s/p pTHA revision, complicati ons as [...] bid while on abx. Paroxysmal atrial fibrillation 076673439 I48.0 ContEliqui s for AC 5 mg bid for hx of PE per notesMetop rolol 25 mg bidMonitor VS, labs, adjust meds prn Essential hypertension 02454374 I10 104/64 BP on the soft side lately, Norvasc 2.5 mg daily stopped on 11/21Metopr olol 25 mg bidMonitor VS, adjust meds prn Mixed anxi ety and depressive disorder 475143721 F41.8 Followed by psychiatry as outpt.Cont Depakote 500 mg q moses.Ativan 1 mg q 12 hrs prn x 14 days will continue and reeval on 12/12,- may consider scheduling if remains problemati c,Venlafax ine ER 150 mg dailyMonit or mood, behaviors. Asthenia 23275969 R53.1 Very deconditio nedFall last week, no injuryPT OT eval and tx. [id number] Ayo Jeffrey MD [address] [address] 12/03/2022 08:20:09 12/06/2022 16:23:47 Sepsis caused by Escherichia coli 929637772 A41.51 see HPIdx with sepsis now to complete 6 week course ofcefazoli n 2 gm q 8add probioticu pdate ID with concernsmo nitor cbc Anemia due to blood loss 562032492 D50.0 Required 4 units PRBCsmonit or cbcnow on eliquis 5 mg bidmonitor for bleeding Dislocatio n of hip joint prosthesis 273595732 Z96.649 recurrent dislocatio ns following replacemen tfollow ortho recsupdate with concernthe rapy to follow Paroxysmal atrial fibrillation 035397710 I48.0 eliquis 5 mg bidmetopro lol 25 mg bidmonitor for rate control Essential hypertension 12155505 I10 norvasc 2.5 mg qdmetoprol ol 25 mg bidmonitor bp and need for titration Mixed anxi ety and depressive disorder 760602939 F41.8 continue out patient medsmonito r moodpsych eval prn Asthenia 51592654 R53.1 PT OT eval and treatmonit or fall risk and need for increased services in community 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 unsure of baselinemo nitor cognitive function and need to invoke Gastroesop hageal reflux disease without esophagitis 848194417 K21.9 pantaprozo le 40 mg qdmonitor for sx control Primary insomnia 6599942 F51.01 add melatonin 6 mg qhs addedmonit or for effect Hearing loss 39545628 H9 0.0 need to shoutconsi [place] need for audiology eval [id number] Antonieta Brito NP [address] [address] 12/04/2022 15:15:10 12/05/2022 20:38:27 Sepsis caused by Escherichia coli 933161621 A41.51 left hipdx with sepsis now to complete 6 week course ofcefazoli n 2 gm q 8 until 12/06, then start keflex 1000 mg po tid for 3 weeks per ID todayadd probiotic until end of abx treatmentu pdate ID with concernsco nsider removing midline when ablemonito r cbc, stable Anemia due to blood loss 222307326 D50.0 Required 4 units PRBCsmonit or cbcnow on eliquis 5 mg bidmonitor for bleedingh/ h stable 8.5/27.3 Dislocatio n of hip joint prosthesis 917941449 Z96.649 recurrent dislocatio ns following replacemen tfollow ortho recsupdate with concernthe rapy to follow Paroxysmal atrial fibrillation 050282617 I48.0 eliquis 5 mg bidmetopro lol 25 mg bidmonitor for rate control Essential hypertension 61593690 I10 boderline low 104/64norv asc 2.5 mg qdmetoprol ol 25 mg bidmonitor bp and need for titration Mixed anxi ety and depressive disorder 271959767 F41.8 Followed by psychiatry as outpt.Cont Depakote 500 mg q moses.Ativan 1 mg q 12 hrs prn x 14 days will continue and reeval on 12/12,- may consider scheduling if remains problemati c,Venlafax ine ER 150 mg dailyMonit or mood, behaviors. psych eval prn Asthenia 20294911 R53.1 PT OT eval and treatmonit or fall risk and need for increased services in community Minimal co gnitive impairment 100822766 G31.84 unsure of baselinemo nitor cognitive function and need to invoke Gastroesop hageal reflux disease without esophagitis 202837175 K21.9 pantaprozo le 40 mg qdmonitor for sx control Primary insomnia 2434370 F51.01 melatonin 6 mg qhsmonitor for effect Hearing loss 01359824 H9 0.0 need to shoutconsi [place] need for audiology eval [id number] Antonieta Brito NP [address] [address] 12/07/2022 11:13:19 12/12/2022 13:53:30 Sepsis caused by Escherichia coli 460824756 A41.51 left hipdx with sepsis now to complete 6 week course ofcefazoli n 2 gm q 8 until 12/06, then start keflex 1000 mg po tid for 3 weeks per ID todayprobi otic until end of abx treatmentu pdate ID with concernsco nsider removing midline when ablemonito r cbc, stable Mixed anxi ety and depressive disorder 630600811 F41.8 Followed by psychiatry as outpt. Cont Depakote 500 mg q moses. 12/07 increase ativan 1 mg po bid to tid as he is requiring doses Ativan 1 mg po q 12 prn anxiety, reeval 12/12 Venlafaxin e ER 150 mg daily Monitor mood, behaviors. psych eval prn Dislocatio n of hip joint prosthesis 769865722 Z96.649 recurrent dislocatio ns following replacemen tfollow ortho recstyleno l sched tidincreas e oxycodone 5 mg po to 5 times a day with times agreed to with ptcont oxycodone q 4 hours prn painupdate with concernthe rapy to followfu with surgery for notable pain not resolving post oppsychiat rist to see pt if pain continues Paroxysmal atrial fibrillation 164125378 I48.0 eliquis 5 mg bidmetopro lol 25 mg bidmonitor for rate control Essential hypertension 17660024 I10 bps boderlinem etoprolol 25 mg bidmonitor bp and need for titration Anemia due to blood loss 634017076 D50.0 Required 4 units PRBCsmonit or cbceliquis 5 mg bidmonitor for bleedingla bs weekly Asthenia 96542718 R53.1 PT OT eval and treatmonit or fall risk and need for increased services in community Minimal co gnitive impairment 294478743 G31.84 unsure of baselinean xiety at baselinemo nitor cognitive function and need to invoke Gastroesop hageal reflux disease without esophagitis 327051522 K21.9 pantaprozo le 40 mg qdmonitor for sx control Primary insomnia 9501999 F51.01 add melatonin 6 mg qhs addedmonit or for effect Hearing loss 56208498 H9 0.0 need to shoutconsi keaton need for audiology eval [id number] Antonieta Brito NP [facility] [place] [address] 12/10/2022 15:41:32 12/12/2022 14:16:21 Sepsis caused by Escherichia coli 594767046 A41.51 left hipdx with sepsis now to complete 6 week course of12/10/22 okay to remove picc line today -he has finished iv abxcefazol in 2 gm q 8 until 12/06, then start keflex 1000 mg po tid for 3 weeks per ID todayprobi otic until end of abx treatmentu pdate ID with concernsmo nitor cbc, stable Mixed anxi ety and depressive disorder 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 following replacemen tfollow [...] pt if pain continues Paroxysmal atrial fibrillation 712753154 I48.0 eliquis 5 mg bidmetopro lol 25 mg bidmonitor for rate control Essential hypertension 59895701 I10 bps boderlinem etoprolol 25 mg bidmonitor bp and need for titration Anemia due to blood loss 025283571 D50.0 stable today ,Required 4 units PRBCs in recent past post opmonitor cbceliquis 5 mg bidmonitor for bleedingla bs weekly Asthenia 50578802 R53.1 PT OT eval and treatmonit or fall risk and need for increased services in community 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 unsure of baselinean xiety at baselinemo nitor cognitive function and need to invoke Gastroesop hageal reflux disease without esophagitis 793736974 K21.9 pantaprozo le 40 mg qdmonitor for sx control Primary insomnia 7206088 F51.01 melatonin 6 mg qhs addedmonit or for effect Hernia of anterior abdominal wall 011733058 K43.9 likely ventral hernia in mid upper abd with 3 vicral sutures sticking out of abdomen along old healed incision line.pt states this was a few years ago for the last obstructio n surgery done at [facility] emergently consult [facility] [place] specialty surgeons for removal of vicral sutures and evaluation of hernia to mid abdmonitor [id number] Antonieta Brito NP [facility] [address] [address] 12/12/2022 11:24:56 12/18/2022 09:54:41 Asthenia 10116052 R53.1 PT OT eval and treatmonit or fall risk and need for increased services in community Abrasion 806151825 T14.8 XXA left forearm abrasion noted healing <1.5 cm with dsg dailymonit or left hand closely for s/s of infectionu nclear if this reopened with fall on 12/11 or separate Fall W19.XXXA PT OT eval and treatno apparent injuries for fall on 12/11encour age and remind him about walker usefall precaution s [id number] Antonieta Brito NP [facility] [address] 12/13/2022 08:03:19 12/18/2022 10:26:01 Asthenia 41871889 R53.1 PT OT eval and treatmonit or fall risk and need for increased services in community Fall W19.XXXA PT OT eval and treatno apparent injuries for fall on 12/11 or 12/12enc age and remind him about walker usefall precaution s Sepsis cau sed by Escherichia coli 000451018 A41.51 left hipdx with sepsis now to complete 6 week course of12/10/22 okay to remove picc line today -he has finished iv abxcefazol in 2 gm q 8 until 12/06, then start keflex 1000 mg po tid for 3 weeks per ID todayprobi otic until end of abx treatmentu pdate ID with concernsmo nitor cbc, stable Hernia of anterior abdominal wall 581135459 K43.9 likely ventral hernia in mid upper abd with 3 vicral sutures sticking out of abdomen along old healed incision line.pt states this was a few years ago for the last obstructio n surgery done at [facility] emergently pending consult [facility] [place] specialty surgeons for removal of vicral sutures and evaluation of hernia to mid abdmonitor Mixed anxi ety and depressive disorder 424344268 F41.8 Followed by psychiatry as outpt.Cont Depakote 500 mg q moses. 12/13 decrease ativan to 1 mg po in am and at 230pm12/13 will dc ativan at bedtime, pt aware due to falls dc Ativan 1 mg po q 12 prn anxiety, reeval 12/12 Venlafaxin e ER 150 mg dailyMonit or mood, behaviors. psych eval prn Dislocatio n of hip joint prosthesis 450149676 Z96.649 recurrent dislocatio ns following replacemen tfollow [...] pt if pain continues Paroxysmal atrial fibrillation 730691856 I48.0 eliquis 5 mg bidmetopro lol 25 mg bidmonitor for rate control Essential hypertension 56770384 I10 bps boderlinem etoprolol 25 mg bidmonitor bp and need for titration Anemia due to blood loss 285307843 D50.0 stable today ,Required 4 units PRBCs in recent past post opmonitor cbceliquis 5 mg bidmonitor for bleedingla bs weekly Minimal co gnitive impairment 376982312 G31.84 unsure of baselinean xiety at baselinemo nitor cognitive function and need to invoke Gastroesop hageal reflux disease without esophagitis 661980466 K21.9 pantaprozo le 40 mg qdmonitor for sx control Primary insomnia 7831536 F51.01 melatonin 6 mg qhs addedmonit or for effect [id number] Antonieta Brito NP [facility] [address] [place] [address] 12/18/2022 10:30:53 12/21/2022 15:44:15 Asthenia 87216069 R53.1 PT OT eval and treatmonit or fall risk and need for increased services in community Sepsis cau sed by Escherichia coli 009165823 A41.51 left hipdx with sepsis now to complete 6 week course of12/10/22 okay to remove picc line today -he has finished iv abxcefazol in 2 gm q 8 until 12/06, then start keflex 1000 mg po tid for 3 weeks per ID today until robiot ic until end of abx treatmentu pdate ID with concernsmo nitor cbc, stable Hernia of anterior abdominal wall 403743699 K43.9 likely ventral hernia in mid upper abd with 3 vicral sutures sticking out of abdomen along old healed incision line.pt states this was a few years ago for the last obstructio n surgery done at [facility] emergently *pending consult [facility] [place] specialty surgeons for removal of vicral sutures and evaluation of hernia to mid abdmonitor Mixed anxi ety and depressive disorder 450510331 F41.8 Followed by psychiatry as outpt.Cont Depakote 500 mg q moses.ativan 1 mg po at 8am and 2pm daily for anxietyVen lafaxine ER 150 mg dailyMonit or mood, behaviors. psych eval prn Dislocatio n of hip joint prosthesis 192837671 Z96.649 recurrent dislocatio ns following replacemen tfollow [...] pt if pain continues Paroxysmal atrial fibrillation 553767474 I48.0 eliquis 5 mg bidmetopro lol 25 mg bidmonitor for rate control Essential hypertension 73343945 I10 bps boderlinem etoprolol 25 mg bidmonitor bp and need for titration Anemia due to blood loss 522018682 D50.0 stable today ,Required 4 units PRBCs in recent past post opeliquis 5 mg bidmonitor for bleedingla bs weekly with cbc Minimal co gnitive impairment 421524946 G31.84 unsure of baselinean xiety at baselinemo nitor cognitive function and need to invoke Gastroesop hageal reflux disease without esophagitis 657577111 K21.9 pantaprozo le 40 mg qdmonitor for sx control Primary insomnia 7190118 F51.01 melatonin 6 mg qhs addedmonit or for effect Hypoxia 305717683 R09.02 resolvedpt with acute hypoxia with o2 sat of 68% on raSent to er and evaluated without cause and o2 sat resolved0- 4 liters o2 to keep sat >90% should this happen againmonit or o2 sat, s/s of hypoxia, or for altered mental status Altered mental status 41 5181593 R41.82 resolvedse nt out to ed on 8 am for ams, now at baseline and resolvedwo rkup negative in ERmonitor for recurrent episode [id number] Antonieta Brito, DIONICIO [facility] [address] [address] 12/20/2022 08:48:03 12/24/2022 10:58:55 Asthenia 10500019 R53.1 PT OT eval and treat as neededmoni tor fall risk Sepsis cau sed by Escherichia coli 072153244 A41.51 left hipdx with sepsis now to complete 6 week course ofcefazoli n 2 gm q 8 until 12/06, then start keflex 1000 mg po tid for 3 weeks per ID today until robiot ic until end of abx treatmentu pdate ID with concerns as neededmoni tor labs as needed Hernia of anterior abdominal wall 634975115 K43.9 likely ventral hernia in mid upper abd with 3 vicral sutures sticking out of abdomen along old healed incision line.pt states this was a few years ago for the last obstructio n surgery done at [facility] emergently consult [facility] [place] [facility] surgeons for removal of vicral sutures and evaluation of hernia to mid abdmonitor for complicati ons Mixed anxi ety and depressive disorder 615074991 F41.8 Followed by psychiatry prnDepakot e 500 mg q moses.ativan 1 mg po at 8am and 2pm daily for anxiety(be dtime ativan removed due to falls)Venl afaxine ER 150 mg dailyMonit or mood, behaviors Dislocatio n of hip joint prosthesis 680897399 Z96.649 recurrent dislocatio ns following replacemen tfollow ortho recstyleno l sched tid, may wean as toleratedo xycodone 5 mg po q 6 hours prn, he is to wean offfu with ortho as neededmoni torpsychia trist to see pt if pain continues Paroxysmal atrial fibrillation 496947278 I48.0 eliquis 5 mg bidmetopro lol 25 mg bidmonitor for rate control Essential hypertension 80588314 I10 bps stable here 120s/70s and pulse 60'smetopr olol 25 mg bidmonitor bp and need for titration Anemia due to blood loss 714185553 D50.0 stable, required 4 units PRBCs in recent past post opeliquis 5 mg bidmonitor for bleeding Minimal co gnitive impairment 404465770 G31.84 unsure of baseline, improved with abxsevere anxiety at baselinemo nitor cognitive function Gastroesop hageal reflux disease without esophagitis 108772060 K21.9 pantaprozo le 40 mg qdmonitor for sx control Primary insomnia 0433647 F51.01 melatonin 6 mg qhsmonitor for effect Hearing loss 10284629 H9 0.0 need to shoutconsi keaton need for audiology eval [id number] Antonieta Brito NP [address] [address] 12/21/2022 08:59:20 12/24/2022 11:06:34 Asthenia 86631992 R53.1 PT OT eval and treat as tolmonitor fall risk and incorporat e safety measures Mixed anxi ety and depressive disorder 297371100 F41.8 Followed by psychiatry as outpt.Depa kote 500 mg q moses.ativan 1 mg po at 8am and 2pm daily for anxiety(be dtime ativan removed due to falls recently)V enlafaxine ER 150 mg dailyMonit or mood, behaviors Dislocatio n of hip joint prosthesis 030371552 Z96.649 recurrent dislocatio ns following replacemen t now healedfoll ow ortho recstyleno l sched tid, may wean as toleratedo xycodone 5 mg po q 6 hours prn, plan to weanfu with ortho as needed outptmonit or Minimal co gnitive impairment 022725122 G31.84 unsure of baseline, improved with abxsevere anxiety at baselinemo nitor cognitive function Gastroesop hageal reflux disease without esophagitis 157121005 K21.9 pantaprozo le 40 mg qdmonitor for sx control outpt with pcp Primary insomnia 4650726 F51.01 with life long hx of sleep walking reportedme latonin 6 mg qhsmonitor for effectpsyc h to see pt for this and anxiety Hearing loss 40903504 H9 0.0 need to shoutconsi keaton need for audiology eval outpt Fall W19.XXXA PT OT eval and treatno apparent injuries for fall on 12/11 or 12/12 or 12/21enc age and remind him about walker usefall precaution smedicatio ns assessed and being weaned Loose stool 263206517 R1 9.5 pt reports one loose stool this amimmodium tab with first loose stool and 2 tabs with each loose stool after no more than 5 tabs per day.push po fluidsmoni tor [id number] ALEXIS DOLAN NP [facility] [address] 12/25/2022 14:57:59 12/27/2022 09:50:37 Fall W19.XXXA PT OT eval and treatno apparent injuries for fall on 12/11 or 12/12 or 12/21enc age and remind him about walker usefall precaution smedicatio ns assessed and being weaned Asthenia 61216527 R53.1 PT OT eval and treat as tolmonitor fall risk and incorporat e safety measuresWo rking on lift in his shoe, hopefully will help with safety and ambulation Loose stool 577699208 R1 9.5 monitorimo dium tab with first loose stool and 2 tabs with each loose stool after no more than 5 tabs per day.push po fluidsmoni tor Primary insomnia 2720563 F51.01 with long hx of anxiety, depression , and sleep walkingInc reased difficulty with sleep since ativan reduced.Pl an - d/w Ottoniel -increase melatonin to 10 mg qhsmonitor sleep, fallsif no further falls could consider increase in ativan back to tidRefer to psych provider here FYI outpt. psych provider is Dr. Jocelyn Galaviz in [place] Mixed anxi ety and depressive disorder 599537238 F41.8 Followed by psychiatry as outpt.Depa kote 500 mg q moses.ativan 1 mg po at 8am and 2pm daily for anxiety(be dtime ativan removed due to falls recently)V enlafaxine ER 150 mg dailyMonit or mood, behaviorsR efer to psychAddin g low dose gabapentin 100 mg bid to see if this may help with pain, mood, and behaviors Dislocatio n of hip joint prosthesis 013603387 Z96.649 recurrent dislocatio ns following replacemen t [...] mood and behaviors Minimal co gnitive impairment 704455108 G31.84 unsure of baseline, improved with abxsevere anxiety at baselinemo nitor cognitive function Gastroesop hageal reflux disease without esophagitis 673937609 K21.9 pantaprozo le 40 mg qdmonitor for sx control outpt with pcp Hearing loss 43846723 H9 0.0 need to shoutconsi keaton need for audiology eval outpt [id number] Antonieta Brito NP [address] [address] 12/28/2022 08:31:04 01/01/2023 11:21:36 Primary insomnia 2027234 F51.01 with long hx of anxiety, depression , and sleep walkingInc reased difficulty with sleep since ativan reduced.me latonin to 10 mg qhsmonitor sleep, fallsRefer to psych provider hereFYI outpt. psych provider is Dr. Jocelyn Galaviz in [place] Fall W19.XXXA PT OT eval and treatno apparent injuries for fall on 12/11 or 12/12 or 12/21encour age and remind him about walker usefall precaution smedicatio ns assessed and being weanedwill ask for trash to be put at bedside with hx of slipping on dropped items for safetymoni tor Asthenia 89442601 R53.1 PT OT eval and treat as tolmonitor fall risk and incorporat e safety measuresWo rking on lift in his shoe, hopefully will help with safety and ambulation monitorwal ker Loose stool 862446364 R1 9.5 monitor, improvedim odium tab with first loose stool and 2 tabs with each loose stool after no more than 5 tabs per day.push po fluids Mixed anxi ety and depressive disorder 040474785 F41.8 Followed by psychiatry as outpt.Depa kote [...] helping Dislocatio n of hip joint prosthesis 230261320 Z96.649 recurrent dislocatio ns following replacemen t [...] mood and behaviors Minimal co gnitive impairment 576011783 G31.84 unsure of baseline, improved with abxsevere anxiety at baselinemo nitor cognitive function Gastroesop hageal reflux disease without esophagitis 613437048 K21.9 pantaprozo le 40 mg qdmonitor for sx control outpt with pcp Hearing loss 31155593 H9 0.0 need to shoutconsi keaton need for audiology eval outpt Sepsis cau sed by Escherichia coli 746634600 A41.51 left hipdx with sepsis now to complete 6 week course ofcefazoli n 2 gm q 8 until 12/06, then start keflex 1000 mg po tid for 3 weeks per ID today until robiot ic until end of abx treatmentu pdate ID with concerns as neededmoni tor labs as needed Hernia of anterior abdominal wall 464967489 K43.9 ventral hernia in mid upper abd with 3 vicral sutures sticking out of abdomen removed by [facility] specialty surgeon this week and no s/s of infection notedhe does not want to have hernia surgerymon itor for complicati ons Paroxysmal atrial fibrillation 236553403 I48.0 eliquis 5 mg bidmetopro lol 25 mg bidmonitor for rate control Essential hypertension 04378976 I10 bps stablemeto prolol 25 mg bidmonitor bp and need for titration Anemia due to blood loss 291710105 D50.0 stable, required 4 units PRBCs in recent past post opeliquis 5 mg bidmonitor for s/s bleeding Hypoxia 813689550 R09.02 resolvedpt with acute hypoxia with o2 sat of 68% on raSent to er and evaluated without cause and o2 sat resolved0- 4 liters o2 to keep sat >90% should this happen againmonit or o2 sat, s/s of hypoxia, or for altered mental status Abrasion 685749608 T14.8 XXA left forearm abrasion noted healing <1.5 cm with dsg dailymonit or left hand closely for s/s of infectionu nclear if this reopened with fall on 12/11 or separate Headache 33578280 R51.9 headache 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 sometimes better with snacks/bobby dnursing to get BS if complains of headache and give snackovera ll, labs stable with glucose of 58 noted on 12/24will monitor Weight decreased 1525181 01 R63.4 noted a 50 lbs weight losswill need to follow weights weeklyensu re supplement bid and snackswill consider consult if weight loss continues as he is now getting better from surgerymon itor [id number] [facility] [address] [address] 01/09/2023 16:31:54 01/14/2023 10:21:36 Primary insomnia 6108102 F51.01 with long hx of anxiety, depression , and sleep walking imrovingIn creased difficulty with sleep since ativan reduced.me latonin to 10 mg qhsmonitor sleep, fallsRefer to psych provider hereFYI outpt. psych provider is Dr. Jocelyn Galaviz in [place] Asthenia 97042643 R53.1 PT OT eval and treat with new lift for shoe and difficulty using it on his ownmonitor fall risk and incorporat e safety measuresho pefully will help with safety and ambulation and decrease fallsmonit orwalker Mixed anxi ety and depressive disorder 435014319 F41.8 Followed by psychiatry as outpt.Depa kote [...] helping Dislocatio n of hip joint prosthesis 292948115 Z96.649 recurrent dislocatio ns following replacemen t [...] mood and behaviors Minimal co gnitive impairment 252217768 G31.84 unsure of baseline, improved with abxsevere anxiety at baselinemo nitor cognitive function Gastroesop hageal reflux disease without esophagitis 979431480 K21.9 pantaprozo le 40 mg qdmonitor for sx control outpt with pcp Hearing loss 21685899 H9 0.0 need to shoutconsi keaton need for audiology eval outpt Sepsis cau sed by Escherichia coli 873818076 A41.51 left hip resolveddx with sepsis now to complete 6 week course ofcefazoli n 2 gm q 8 until 12/06, then start keflex 1000 mg po tid for 3 weeks per ID today until 1probiot ic until end of abx treatmentu pdate ID with concerns as neededmoni tor labs as needed Hernia of anterior abdominal wall 945871639 K43.9 resolvedve ntral hernia in mid upper abd with 3 vicral sutures sticking out of abdomen removed by [facility] specialty surgeon this week and no s/s of infection notedhe does not want to have hernia surgerymon itor for complicati ons Paroxysmal atrial fibrillation 103201917 I48.0 eliquis 5 mg bidmetopro lol 25 mg bidmonitor for rate control Essential hypertension 05331927 I10 bps stablemeto prolol 25 mg bidmonitor bp and need for titration Anemia due to blood loss 726470338 D50.0 stable, required 4 units PRBCs in recent past post opeliquis 5 mg bidmonitor for s/s bleeding Headache 43495002 R51.9 resolvedhe adachehe reports headaches 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 sometimes better with snacks/bobby dnursing to get BS if complains of headache and give snackovera ll, labs stable with glucose of 58 noted on 12/24will monitor Weight decreased 5308113 01 R63.4 noted a 50 lbs weight losswill need to follow weights weeklyensu re supplement bid and snackswill consider consult if weight loss continues as he is now getting better from surgerymon itor [id number] Antonieta Brito, DIONICIO [facility] [address] [address] 01/23/2023 11:59:28 01/28/2023 12:14:25 Asthenia 49539460 R53.1 PT OT eval and treat with new lift for shoe and difficulty using it on his ownmonitor fall risk and incorporat e safety measuresho pefully will help with safety and ambulation and decrease fallsmonit orrocioker Dislocatio n of hip joint prosthesis 292183543 Z96.649 recurrent dislocatio ns following replacemen t [...] mood and behaviors Minimal co gnitive impairment 737191910 G31.84 unsure of baseline, improved with abxsevere anxiety at baselinemo nitor cognitive function Fall 0595805 W19.XXXA 01/22 fall at nightPT OT already working with pt with new lift shonikkiou rage and remind him about walker use and calling for helpfall precaution smedicatio ns assessed and being weanedtras h to be put at bedside with hx of slipping on dropped items for safetymoni tor [id number] [facility] [address] 02/15/2023 06:50:30 02/20/2023 08:42:22 Minimal cognitive impairment 911769917 G31.84 will monitor and support as needed Mixed anxi ety and depressive disorder 643711092 F41.8 lorazepam 1 mg bidvenlafa xine ER 150 mg dailygabap entin 100 mg biddivalpr oex ER 500 mg at hswill monitor Chronic pain 95816054 G8 9.29 gabapentin 100 mg bidoxycodo ne 5 mg q6h prnlidocai ne patch to low back dailyAPAP 650 mg tid and q4h prnwill start muscle rub bid to neck and shouldersw ill monitorPT/ OT prn Essential hypertension 10138693 I10 metoprolol 25 mg bidwill monitor Paroxysmal atrial fibrillation 364811212 I48.0 metoprolol 25 mg bid for rate controlapi xaban 5 mg bidwill monitor Gastroesop hageal reflux disease without esophagitis 203699740 K21.9 pantoprazo le 40 mg dailywill monitor [id number] Antonieta Brito NP [address] [address] 02/22/2023 08:26:38 02/26/2023 12:30:16 Hernia of anterior abdominal wall 508477161 K43.9 ventral hernia in mid upper abd with 3 vicral sutures sticking out of abdomen removed by [facility] specialty surgeon in [place] does not want to have hernia surgerymon itor for complicati ons Cellulitis 489712911 L03 .90 old hernia abd incision now open and infected with likelihood of old sutures from prior ventral henia qsunbwt31/ 27/23start cbc and bmp on Saturdaykefl ex 750 mg po tid x 14 daysprobio tic 1 tab po bidneeds fu with surgeon for possible erosion of [facility], pat dry, and cover with bodered dressing dailymonit or Chronic back pain 581069 002 G89.29 oxycodone 5 mg po q 6 hours prn painbaclof en 10 mg q 8 h prn [id number] Antonieta Brito NP [address] [place] [address] 02/25/2023 10:26:59 03/05/2023 12:59:25 Hernia of anterior abdominal wall 516192360 K43.9 ventral hernia in mid upper abd with 3 vicral sutures sticking out of abdomen removed by [facility] specialty surgeon in e does not want to have hernia surgerymon itor for complicati ons Cellulitis [id number] L03 .90 old hernia abd incision now open and infected with likelihood of old sutures from prior ventral henia ymfheum05/ 30/23 cont plan below02/22startcb c and bmp on Saturdaykefl ex 750 mg po tid x 14 daysprobio tic 1 tab po bidneeds fu with surgeon for possible [facility] of [facility], pat dry, and cover with bodered dressing dailymonit or Chronic back pain 085208 002 G89.29 oxycodone 5 mg po q 6 hours prn painbaclof en 10 mg q 8 h prn1030 gabapentin increase from 100mg to 200 mg po bid Minimal co gnitive impairment 438293537 G31.84 will monitor and support as needed Mixed anxi ety and depressive disorder 611233222 F41.8 lorazepam 1 mg bidvenlafa xine ER 150 mg dailygabap entin 100 mg biddivalpr oex ER 500 mg at h[facility]ill monitor Chronic pain 69183307 G8 9.29 02/25 increase gabapentin to 200 mg bidoxycodo ne 5 mg q6h prn(only receiving 1-2 times per day)lidoca ine patch to low back dailyAPAP 650 mg tid and q4h prnmuscle rub bid to neck and shouldersw ill monitorPT/ OT prn Dislocatio n of hip joint prosthesis 064816534 Z96.649 recurrent dislocatio ns following replacemen t [...] Dr. Cheema for fu of hip pain [id number] Antonieta Brito NP [facility] [address] [address] 03/06/2023 08:19:16 03/08/2023 15:32:16 Hemorrhoids 86870025 K64.9 annusol 2.5 % cream bid prn topically external rectallyhe mmorhoidsm onitor for excessive bleeding/p ain [id number] ALEXIS DOLAN NP [facility] [address] [address] 03/12/2023 13:06:36 03/13/2023 15:59:23 Dislocation of hip joint prosthesis 424565284 Z96.649 recurrent dislocatio ns following replacemen t [...] pain management Anemia due to blood loss 740640226 D50.0 Required 4 units PRBCs post op.Hgb, improving - last check 9.6 in Dec.Monit or CBC[facility] higher risk of bleed Chronic back pain 379694 002 G89.29 APAP prnlidoder m patch dailygabap entin 200 mg bidF/U with Dr. Lara prn Essential hypertension 44463722 I10 VSS, BP tends to run on [...] s Gastroesop hageal reflux disease without esophagitis 647658100 K21.9 pantaprozo le 40 mg qdsx. controlled , consider dose reduction in future History of pulmonary embolus 967114599 Z86.711 Continue eliquis 2.5 mg bid Mixed anxi ety and depressive disorder 342151943 F41.8 Followed by psychiatry as outpt.Depa kote 500 mg q moses.ativan 1 mg po at 8am and 2pm daily for anxietymel atonin 10 mg q HSVenlafax ine ER 150 mg dailygabap entin 200 mg bidMonitor mood, behaviors Paroxysmal atrial fibrillation 975899802 I48.0 ContEliqui s for AC 5 mg bid (also hx of PE)Metopro lol 25 mg bid for rate controlMon itor VS, labs, adjust meds prn [id number] Antonieta Brito NP [facility] [address] [address] 04/01/2023 08:37:47 04/10/2023 10:33:00 Respiratory tract congestion and cough 690522750 R05.8 pt with viral symptoms of congestion , cough and rhinorhea noted over the weekend, sore throat resolvedco ntsalt water gargles prncepacol lozenges or spray prn12/4sta rtcovid swab asaprespir atory panel (sample to go to lab)mucine x dm 600 mg/30 mg po q 12 hours x 7 daysrobitu ssin 10 ml po q 6 hours prn cough x 14 daysmonito r [id number] Antonieta Brito NP [facility] [address] [address] 04/04/2023 11:46:11 04/10/2023 11:31:52 Respiratory tract congestion and cough 532278565 R05.8 pt with viral symptoms of congestion [...] if not improving or abxmonitor Chronic pain 56741135 G8 9.29 02/25 increase gabapentin to 200 mg bidoxycodo ne 5 mg q6h prn(only receiving 1-2 times per day)lidoca ine patch to low back dailyAPAP 650 mg tid and q4h prnmuscle rub bid to neck and shouldersw ill monitorPT/ OT prn 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 lorazepam 1 mg bidvenlafa xine ER 150 mg dailygabap entin 100 mg biddivalpr oex ER 500 mg at hswill monitor [id number] Antonieta Brito NP [facility] [address] [address] 04/17/2023 14:06:24 04/18/2023 19:43:04 Loose stool 037057545 R19.5 monitor, improvedco ntimodium tab with first loose stool and 2 tabs with each loose stool after no more than 5 tabs per day20st art metamucil 1 tbsp or packet daily.push po fluids [id number] Antonieta Brito NP [facility] [address] [address] 05/09/2023 19:04:15 05/14/2023 15:22:40 Dysuria 43649668 R30.0 had urinalysis done and negative for infectionU nlikely due to infection or BPHstates this sensation has happened before with resolution on its ownplan:he was offered pyridium and refused todaypush fluids and monitor for now [id number] Antonieta Brito NP [facility] [address] [address] 05/11/2023 17:02:33 05/14/2023 16:20:09 Dysuria 60634258 R30.0 had urinalysis done and negative for infectionU nlikely due to infection or BPHstates this sensation has happened before with resolution on its ownplan:he was offered pyridium and refused on 4 start flomax 0.4 mg po qhsmonitor push fluids and monitor for now [id number] Antonieta Brito NP [facility] [address] 05/15/2023 12:22:51 05/17/2023 15:13:55 Dysuria 13774017 R30.0 had urinalysis done and negative for infectionU nlikely due to infection or BPHstates this sensation has happened before with resolution on its own in the pastplan: started on flomax 0.4 mg po daily with good effectmoni torpush fluids and monitor for now Mixed anxi ety and depressive disorder 384853664 F41.8 lorazepam 1 mg bid05/15/23 add 1 mg po q 24 hours prn anxiety for 2 weeks and reevalvenl afaxine ER 150 mg dailygabap entin 100 mg biddivalpr oex ER 500 mg at [facility] monitor [id number] [facility] [address] 05/22/2023 10:36:43 05/24/2023 11:44:41 Loose stool 713042859 R19.5 monitor, improvedco ntimodium tab with first loose stool and 2 tabs with each loose stool after no more than 5 tabs per day04/17 start metamucil 1 tbsp or packet daily.push po fluids Constipation 32673509 K5 9.00 pt states he is having constipati on for 3 daysnsg reports he is refusing metamucil todaycontm etamucil dailymiral ax 17 grams po daily prn, will get dose this ammonitor [id number] Smitha Sparks MD [facility] [address] 05/24/2023 18:15:41 05/28/2023 15:26:20 Dislocation of hip joint prosthesis 728040683 T84.021D No further dislocatio ns since last [...] for safety. Anemia due to blood loss 136192580 D50.0 Hgb stable.Mon itor labs prn Chronic back pain 605640 002 G89.29 Continue APAP 650 mg TID and 650 mg q 4 hrs prn (NTE 3000 mg/d), lidoderm patch qd, gabapentin 200 mg BID and oxycodone 5 mg q 6 hrs prn.F/U with Dr. Lara prn Essential hypertension 16327427 I10 Good control since amlodipine restarted in on tinue metoprolol 25 mg BID and amlodipine 2.5 mg qd.Monitor BP and labs Paroxysmal atrial fibrillation 426484189 I48.0 Rate in good control on meds as above.Cont inue eliquis 2.5 mg BID for AC.Monitor HR and bleeding risk. Gastroesop hageal reflux disease without esophagitis 363068606 K21.9 No current sxs.Contin ue pantoprazo le 40 mg qdMonitor sxs. History of pulmonary embolus 456168019 Z86.711 Continue eliquis 2.5 mg BIDMonitor resp status Mixed anxi ety and depressive disorder 916368704 F41.8 Mood good tonight, despite frustratio ns..Contin ue depakote 500 mg qPM, lorazepam 1 mg q 8am and 2pm and qd prn, melatonin 10 mg qhs, venlafaxin e ER 150 mg qd and gabapentin 200 mg BID.Monito r mood and behaviorsP sych consult prn [id number] Antonieta Brito NP [address] [address] 06/14/2023 10:52:59 06/17/2023 17:21:14 Hernia of anterior abdominal wall 621130617 K43.9 ventral hernia in mid upper abd with 3 vicral sutures sticking out of abdomen removed by [facility] specialty surgeon [place] reopeninga pply bacitracin and foam dressing dailyhe reports he wants to have hernia surgery now and consult order given [place] [facility] specialty surgeonsmo sabaor for complicati onspain managed with chronic pain meds Minimal co gnitive impairment 466825385 G31.84 will monitor and support as needed [id number] Antonieta Brito NP [facility] [address] [address] 06/26/2023 15:04:18 07/02/2023 13:16:40 Minimal cognitive impairment 373198330 G31.84 will monitor and support as needed Dislocatio n of hip joint prosthesis 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 brand here. Chronic back pain 197420 002 G89.29 oxycodone 5 mg po q 6 hours prn painbaclof en 10 mg q 8 h prn10/30 gabapentin increase from 100mg to 200 mg po bid [id number] Antonieta Brito NP [facility] [address] [address] 07/10/2023 16:00:23 07/15/2023 10:10:07 Minimal cognitive impairment 027547658 G31.84 will monitor and support as needed Fall R29.6 no fall recently, but will address fall plan with recurrent falls in historynew lift shoes seem to have a notable difference and decrease in fallsencou rage and remind him about walker use and calling for helpfall precaution swalker when up with supervisio nmedicatio ns assessedtr funmilayo to be put at bedside with hx of slipping on dropped items for safetymoni tor Bilateral red eyes [id number] 2187071 H57.89 likely related to the New drops [...] erythromcy in or other therapies are needed [id number] ALEXIS DOLAN NP [facility] [address] [place] [address] 07/18/2023 11:07:36 07/23/2023 11:16:31 Dislocation of hip joint prosthesis 190834044 T84.021D No further dislocatio ns since last [...] for safety. Anemia due to blood loss 514031104 D50.0 Hgb stable.Mon itor labs prn Chronic back pain 437226 002 G89.29 Continue APAP 650 mg TID and 650 mg q 4 hrs prn (NTE 3000 mg/d), lidoderm patch qd, gabapentin 200 mg BID and oxycodone 5 mg q 6 hrs prn -> changing to bid prn with goal to wean offF/U with Dr. Lara prn Essential hypertension 95330168 I10 Good control since amlodipine restarted in tinue metoprolol 25 mg BID and amlodipine 2.5 mg qd.Monitor BP and labs Paroxysmal atrial fibrillation 122984816 I48.0 Rate in good control on meds as above.Cont inue eliquis 2.5 mg BID for AC.Monitor HR and bleeding risk. Gastroesop hageal reflux disease without esophagitis 242670020 K21.9 No current sxs.Contin ue pantoprazo le 40 mg qdMonitor sxs. History of pulmonary embolus 406815197 Z86.711 Continue eliquis 2.5 mg BIDMonitor resp status Mixed anxi ety and depressive disorder 063920131 F41.8 Continue depakote 500 mg qPM, lorazepam [...] mood and behaviorsP sych consult prn Cough 19981247 R05.9 New, x 1 day.Other residents with the fluPlan -viral panel today, treat as indicated. flonase x 1 month to help with runny, stuffy nose.robit ussin 10 mg q 4 hr prn x 30 daysCBC, BMP in amMonitor VS, sx. closelyCon tinue supportive care - APAP, fluids, restTo ER if acute. [id number] Smitha Sparks MD [facility] [address] 07/22/2023 12:27:19 07/25/2023 15:56:03 Chronic pain 58180180 G89.29 Agreed to change to oxycodone 5 mg TID prn and he can discuss further with [employer] TE[employer] tomorrow. Discussed this and housing issues for 20 [id number] Antonieta Brito NP [facility] [address] 07/23/2023 15:16:18 07/25/2023 16:11:08 Chronic pain 84488449 G89.29 contoxycod one 5 mg TID prn [...] prn Mixed anxi ety and depressive disorder 507979521 F41.8 lorazepam 1 mg bid and 1 mg po q 24 hours prn anxiety for 2 weeks and reeval on 08/05 due to increased anxiety finding an apartmentv enlafaxine ER 150 mg dailygabap entin 100 mg biddivalpr oex ER 500 mg at [facility] monitor Influenza caused by Influenza A virus 453538926 J09.X2 tested positive for flu a on 07/17contta miflu 75 mg po bid x 5 days total finish on 07/24lab stable 07/18cepaco l sore throat spray or lozenge 1 tab/spray q 6 hours prn sore throatrobi tussin 10 ml podrink > 2liters fluid/24 hours x 5 daysflonas e 1 spray each nostril bidisolati on per facilitymo nitor [id number] Antonieta Brito NP [address] [address] 08/02/2023 09:07:10 08/05/2023 12:51:22 Chronic pain 62022553 G89.29 contoxycod one 5 mg TID prn [...] prn Mixed anxi ety and depressive disorder 727481504 F41.8 contloraze jeff 1 mg bid and 1 mg po q 24 hours prn anxiety for 2 weeks and reeval on 08/05 due to increased anxiety finding an apartmentv enlafaxine ER 150 mg dailygabap entin 100 mg biddivalpr oex ER 500 mg at [facility] monitor Influenza caused by Influenza A virus 662530053 J09.X2 resolvedte sted positive for flu a on 07/17tamifl u 75 mg po bid x 5 days total finished on stable 07/18cont if neededcepa col sore throat spray or lozenge 1 tab/spray q 6 hours prn sore throatrobi tussin 10 ml podrink > 2liters fluid/24 hours x 5 daysflonas e 1 spray each nostril bidmonitor [id number] Antonieta Brito NP [address] [place] [address] 08/26/2023 11:59:39 08/28/2023 12:57:52 Chronic pain 12374774 G89.29 with tolerable relief,con toxycodone 5 mg [...] outpt Mixed anxi ety and depressive disorder 097739617 F41.8 contloraze jeff 1 mg bidvenlafa xine ER 150 mg dailygabap entin 200 mg biddivalpr [facility]ex [facility] Dislocatio n of hip joint prosthesis 912947998 T84.021D No further dislocatio ns since last [...] to PMR - given steroid injection with felix t in pain.Refer back to Dr. Cheema prn. Fall R29.6 no falls recentlyus es orthodic shoe with felix tContinue fall precaution s.Monitor for safety. Essential hypertension 47485594 I10 Good controlCon tinuemetop rolol 25 mg BIDamlodip ine 2.5 mg qd.Monitor BP and labs Paroxysmal atrial fibrillation 546118445 I48.0 Rate in good control on meds as above.Cont inueeliqui s 2.5 mg BID for AC.Monitor HR and bleeding risk. Gastroesop hageal reflux disease without esophagitis 540452688 K21.9 No current sxs.Contin uepantopra zole 40 mg qdMonitor sxs. History of pulmonary embolus 337466006 Z86.711 Continueel iquis 2.5 mg BIDMonitor resp status Anemia due to blood loss 448499710 D50.0 Hgb stable.Mon itor labs prn Hernia of anterior abdominal wall 568974715 K43.9 ventral hernia in mid upper abd with 3 vicral sutures sticking out of abdomen removed by [facility] specialty [place] now managed with:bacit racin and foam dressing daily prnhe reports he wants to have hernia surgery now and consult order given [place] [facility] specialty surgeonsmo nitor for complicati onspain managed with chronic pain meds Minimal co gnitive impairment 957333234 G31.84 will monitor and support as needed [id number] Antonieta Brito NP [facility] [address] [address] 09/12/2023 11:50:07 09/16/2023 11:43:42 Minimal cognitive impairment 211026498 G31.84 will monitor and support as needed Seasonal allergy 3012036 04 J30.2 on 09/10 started on cetirizine po daily09/11 start flonase 1 spray each nare bidmonitor [id number] ALEXIS DOLAN NP [facility] [address] [address] 09/19/2023 10:58:11 10/01/2023 13:32:24 Hematoma of skin 695089799 T14.8XXA See HPIlarge area of bruising left lateral hip noted today by staff, also ? to appear more swollen.Pe r pt., asymptomat ic, not bothersome or painful.No trauma, falls, or injury recalled by pt. or staffUncle ar etiology, is on AC so increased risk of bleeding at baseline. Plan -Hold eliquis x 2 daysMonito r q shift - will request nsg. 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 [id number] Antonieta Brito NP [address] [place] [address] 09/25/2023 16:39:49 10/01/2023 14:55:08 Chronic pain 12394017 G89.29 with tolerable reliefhad cortisone shot recently [...] pcp Mixed anxi ety and depressive disorder 543632390 F41.8 contloraze jeff 1 mg bid and q 24 hour prn increased anxietyven lafaxine ER 150 mg dailygabap entin 200 mg biddivalpr oex ER 500 mg at [facility] monitor Dislocatio n of hip joint prosthesis 426393926 T84.021D No further dislocatio ns since last surgery, but with residual leg length discrepanc y, has lift made for shoe.Doing well with mobility, independen t at this timeOxycod one 5 mg tid prn severe painrefuse s prn APAPgabape ntin 200 mg BID.given steroid injection with felix t in pain recentlyRe sera back to Dr. Cheema prn. outpt Fall R29.6 no falls recentlyus es orthodic shoe with felix tContinue fall precaution s outptMonit or for safety outpt Essential hypertension 32213539 I10 Good control hereContin uemetoprol ol 25 mg BIDamlodip ine 2.5 mg qd.Monitor BP and labs outpt with pcp Paroxysmal atrial fibrillation 133381512 I48.0 Rate in good control on meds as above.Cont inueeliqui s 2.5 mg BID for AC.Monitor HR and bleeding risk outpt with pcp Gastroesop hageal reflux disease without esophagitis 988136937 K21.9 No current sxs.Contin uepantopra zole 40 mg qdMonitor sxs. outpt with pcp History of pulmonary embolus 734569394 Z86.711 Continueel iquis 2.5 mg BIDmonitor outpt with pcp Anemia due to blood loss 900293322 D50.0 Hgb stable.Mon itor labs prn outpt with pcp Hernia of anterior abdominal wall 885181534 K43.9 ventral hernia in mid upper abd with 3 vicral sutures sticking out of abdomen removed by [facility] specialty surgeon [place] now managed with:bacit racin and foam dressing daily prnhe reports he wants to have hernia surgery and consult [place] [facility] surgeonsmo nitor for complicati ons outpt with pcppain managed with chronic pain meds above Minimal co gnitive impairment 035272034 G31.84 will monitor and support as needed Chronic back pain 944112 002 G89.29 Continue APAP 650 mg q 4 hrs prn (NTE 3000 mg/d), lidoderm patch qd, gabapentin 200 mg BID and oxycodone 5 mg q 8 hrs prnF/U with Dr. Lara prn History of malignant neoplasm of prostate 855348005 Z85.46 No longer on alfuzosinF /U with uro oupt [id number] ALEXIS DOLAN NP [address] [address] 11/19/2023 14:38:37 11/20/2023 20:42:29 Chronic pain 59504476 G89.29 with tolerable reliefhas had cortisone shots in recent past from Dr. Brand to hip last time he was here.james nue:oxycod one 5 mg TID prn for hip painAPAP prn (NTE 3000 mg/d)lidod erm patch qdgabapent in 200 mg BIDdiclofe nac gel 1 % topically tidmuscle rub cream topically prnF/U with Dr. Lara prn Mixed anxi ety and depressive disorder 971779597 F41.8 With agitation in ER requiring prn [...] prn Dislocatio n of hip joint prosthesis 455524321 T84.021D No further dislocatio ns since last surgery, but with residual leg length discrepanc y, has lift made for shoe.Still with some gait instabilit y, uses walker for ambulation .Continue: diclofenac gel tid to hipOxycodo ne 5 mg tid prn severe painrefuse s prn APAPgabape ntin 200 mg BID. Refer back to Dr. Cheema prn Essential hypertension 09149017 I10 Good control hereContin uemetoprol ol 25 mg BIDamlodip ine 2.5 mg qd.Monitor BP and labs Paroxysmal atrial fibrillation 927047184 I48.0 Rate in good control on meds as above.Cont inueeliqui s 5 mg BID for AC.metopro lol 25 mg bid for rate controlMon itor HR and bleeding risk Gastroesop hageal reflux disease without esophagitis 749990398 K21.9 No current sxs.Contin uepantopra zole 40 mg qdMonitor sxs. History of pulmonary embolus 019383096 Z86.711 Continueel iquis 5 mg BIDmonitor outpt with pcp Anemia due to blood loss 326174455 D50.0 Hgb stable.Mon itor labs prn Minimal co gnitive impairment 825582797 G31.84 will monitor and support as needed History of malignant neoplasm of prostate 203877825 Z85.46 No longer on alfuzosinO n gemtesa 75 mg qd and flomax 0.4 mg q hs for bladder control.F/ U with as needed Asthenia 95368072 R53.1 General weakness with fall at home.PT OT eval and treat, goal is to return home.monit or fall risk and incorporat e safety measures Gout 33127780 M10.09 Flare up in ER, R great toe, tx. with prednisone and colchicine with improvemen t.Monitor Pulmonary embolism 80981 003 I26.99 Hx of.On Eliquis at baseline for Afib.Monit or for recurrent sxs. Allergic rhinitis 584556 04 J30.9 Continue zyrtec 10 mg qd, flonase bidMonitor sx. [id number] Antonieta Brito NP [address] [place] [address] 11/25/2023 16:37:01 11/27/2023 12:59:01 Asthenia 50690661 R53.1 worked with therapy here and getting strongerwi ll fu with pcp outpt and increased servicesmo nitor fall risk and incorporat e safety measures Mixed anxi ety and depressive disorder 051544909 F41.8 With agitation in ER requiring prn medication s, however controlled since here.ativa n 1 mg bid and daily prn restarted as well as zyprexa 2.5 mg bid and qd prn since transfer to [facility] ontlorazep am 1 mg bid and q 24 hour prnmelaton in 10 mg q HSvenlafax ine ER 187.5 mg dailygabap entin 200 mg biddivalpr oex ER 500 mg at hsmonitor mood and behaviorsP sych eval prn outpt and fu with pcp outpt Gout 02176332 M10.09 resolvedFl are up in ER, R great toe, tx. with prednisone and colchicine with improvemen t.Monitor with pcp outpt Chronic pain 61421049 G8 9.29 with tolerable reliefhas had cortisone shots in recent past from Dr. Brand to hip last time he was here.james nue:oxycod one 5 mg TID prn for hip pain- wean at home with remainder of pills here, no scriptAPAP prn (NTE 3000 mg/d)lidod erm patch qdgabapent in 200 mg BIDdiclofe nac gel 1 % topically tidmuscle rub cream topically prnF/U with Dr. Lara prn outpt for pain management and pcp Dislocatio n of hip joint prosthesis 804147050 T84.021D No further dislocatio ns since last [...] and fu with pcp outpt Essential hypertension 62438234 I10 Good control hereContin uemetoprol ol 25 mg BIDamlodip ine 2.5 mg qd.Monitor outpt with pcp Paroxysmal atrial fibrillation 967343268 I48.0 Rate in good control on meds as above.Cont inueeliqui s 5 mg BID for AC.metopro lol 25 mg bid for rate controlMon itor HR and bleeding risk outpt with pcp Gastroesop hageal reflux disease without esophagitis 251107664 K21.9 No current sxs.Contin uepantopra zole 40 mg qdMonitor sxs. outpt with pcp History of pulmonary embolus 184509432 Z86.711 Continueel iquis 5 mg BIDmonitor with pcp outpt Anemia due to blood loss 103320988 D50.0 Hgb stable.Mon itor labs prn outpt Minimal co gnitive impairment 001804731 G31.84 will monitor and support as needed outpt with pcp History of malignant neoplasm of prostate 293048071 Z85.46 No longer on alfuzosinO n gemtesa 75 mg qd and flomax 0.4 mg q hs for bladder control.F/ U with as needed outpt Pulmonary embolism 96477 003 I26.99 Hx of.On Eliquis at baseline for Afib.Monit or for recurrent sxs outpt with pcp Allergic rhinitis 253126 04 J30.9 Continue zyrtec 10 mg qd, flonase bidMonitor sx. outpt with pcp 112501 [facility] [address] [address] 12/28/2023 13:10:11 01/02/2024 15:08:59 Dislocation of hip joint prosthesis 856847113 T84.021D chronic pain sp surgery last year-oxyco done 5 mg q8h prnwill order 1 week supply of oxycodone to get through long weekendre- eval oxycodone use next week-tylen ol 650 mg q4h prn-gabape ntin 100 mg bid-pain clinic f/up next satsigned consult for physiatry Essential hypertension 55900982 I10 carrying dx-metopro lol 12.5 mg bid-holdin g parameters -monitor BP qshift x 3 days, then daily-admi ssion CMP Fall R29.6 in wc-PT OT-fall precaution s Gastroesop hageal reflux disease without esophagitis 599147055 K21.9 -pantopraz ole 40 mg daily-steven tor sx Chronic back pain 567646 002 G89.29 -see pain regimen above Asthenia 09525488 R53.1 deconditio samuel-PT OT Gout 20977706 M10.09 carrying dx-not on meds History of pulmonary embolus 093130777 Z86.711 -eliquis 5 mg bid Insomnia 445893533 G47.0 9 carrying dx-melaton in 10 mg HS Mixed anxi ety and depressive disorder 054473837 F41.8 carrying dx-encoura ge getting oob for meals-psyc h prn-monito r mood and effect-eff exor 150 mg daily and 37.5 mg daily-ativ an 1 mg bid for anxiety Paroxysmal atrial fibrillation 926165679 I48.0 carrying dx, rate controlled -metoprolo l 12.5 mg bid-eliqui s 5 mg bid-monito r hr and blood loss Anemia due to blood loss 868227417 D50.0 stable-adm ission CBC Seasonal allergy 1989366 04 J30.2 carrying dx-zyrtec 10 mg prn-flonas e bid Overactive urinary bladder 510277223 N32.81 -flomax 0.4 mg daily-gemt gordon 75 mg daily- tor urine output and ss [id number] Smitha Sparks [facility] [address] 12/31/2023 20:02:53 01/06/2024 10:34:44 Dislocation of hip joint prosthesis 357986702 T84.021D Chronic pain.Is followed by Dr. Lara for steroid shots and Dr. Sanchez for meds.James nue gabapentin 100 mg BID, oxycodone 5 mg q 8 hrs prn and APAP 650 mg q 4 hrs prn.Has F/U with Dr. Lara on 01/01, plans to d/c home on 01/02. Essential hypertension 02394986 I10 Low at times, but mostly in good control.Co ntinue metoprolol 12.5 mg BID, hold for SBP<120 or pulse<60Mo nitor BP and labs Fall 5577785 R29.6 With limitation s due to pain.Needs PT/OT for strengthen ing, balance, gait training, safety and function.C ontinue fall precaution s.Monitor for safety. Gastroesop hageal reflux disease without esophagitis 701652329 K21.9 Continue pantoprazo le 40 mg qdMonitor GI sxs Chronic back pain 947649 002 G89.29 As above. Asthenia 00699070 R53.1 As above. Gout 75598499 M10.09 No recent flares.Tx prn History of pulmonary embolus 579360609 Z86.711 Continue Eliquis 5 mg BIDMonitor for sxs. Insomnia 405598147 G47.0 9 Continue melatonin 10 mg qhsMonitor sleep patterns Mixed anxi ety and depressive disorder 734512920 F41.8 Mood good today.Cont inue effexor 187.5 mg qd and lorazepam 1 mg BID.Monito r mood.Psych consult prn. Paroxysmal atrial fibrillation 404796454 I48.0 Rate in good control on meds as above.Cont inue eliquis 5 mg BID for AC.Monitor HR and bleeding risk. Anemia due to blood loss 472639041 D50.0 Stable at baseline.M onitor. Seasonal allergy 0920824 04 J30.2 Continue cetirizine 10 mg qd.Monitor Overactive urinary bladder 894405709 N32.81 Continue tamsulosin 0.4 mg qd and gemtesa 75 mg qdMonitor urinary function. [id number] Antonieta Brito NP [address] [address] 01/02/2024 08:12:10 01/06/2024 11:58:52 Dislocation of hip joint prosthesis 262974342 T84.021D chronic pain sp surgery last yearcontox [...] this should help with painoutpt Essential hypertension 96039924 I10 carrying dxcontmeto prolol 12.5 mg bidholding parameters monitor outpt with pcp outpt Fall 2780313 R29.6 hx of multiple falls at homePT OT outpt if neededfall precaution sfu with vna and services at home outpt Gastroesop hageal reflux disease without esophagitis 044597993 K21.9 pantoprazo le 40 mg dailymonit or sxfu with pcp outpt Chronic back pain 197040 002 G89.29 see pain regimen above Asthenia 72429157 R53.1 improving and likely at baseline with shoe lifts Gout 67149418 M10.09 carrying dxnot on meds History of pulmonary embolus 077708738 Z86.711 eliquis 5 mg bidfu with pcp outpt for need Insomnia 447274415 G47.0 9 carrying dxmelatoni n 10 mg HSfu with pcp outpt Mixed anxi ety and depressive disorder 091311119 F41.8 carrying dxencourag e getting oob for mealspsych prnmonitor mood and effecteffe xor 150 mg daily and 37.5 mg dailyativa n 1 mg bid prn for anxietyfu with pcp outpt Paroxysmal atrial fibrillation 592978188 I48.0 carrying dx, rate controlled metoprolol 12.5 mg bideliquis 5 mg bidmonitor with pcp outpt Anemia due to blood loss 204824368 D50.0 stable Seasonal allergy 7855895 04 J30.2 carrying dxzyrtec 10 mg prnflonase bidfu with pcp outpt Overactive urinary bladder 082224971 N32.81 flomax 0.4 mg dailygemte sa 75 mg dailyfu with pcp outpt [id number] [facility]eta [facility] [address] [facility] [place] [place] [address] 01/08/2024 08:15:15 01/09/2024 13:36:05 Dislocation of hip joint prosthesis 235645112 T84.021D chronic pain sp surgery last year, [...] allergy-to lerates)pa in psysiatry f/u Essential hypertension 83636890 I10 carrying dxmetoprol ol 12.5 mg bidholding [...] care Gastroesop hageal reflux disease without esophagitis 832506896 K21.9 pantoprazo le 40 mg dailymonit or sx Chronic back pain 242503 002 G89.29 see pain regimen above Asthenia 12372354 R53.1 deconditio nedPT OT eval and treatcont with lift in shoe Gout 00311198 M10.09 carrying dx , not currenton dc prior received cholicine x1 coursenot on meds History of pulmonary embolus 187349087 Z86.711 hx ofeliquis 5 mg bid Insomnia 048584538 G47.0 9 carrying dxmelatoni n 10 mg HS 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 carrying dxencourag e getting oob for mealspsych prnmonitor mood and effecteffe xor 150 mg daily and 37.5 mg dailyativa n 1 mg bid for anxiety Paroxysmal atrial fibrillation 830372865 I48.0 carrying dx, rate controlled metoprolol 12.5 mg bideliquis 5 mg bidmonitor hr and blood loss Anemia due to blood loss 928005233 D50.0 stable CBC in hospitalmo nitor here with labs Seasonal allergy 7154411 04 J30.2 carrying dxzyrtec 10 mg prnflonase bid Overactive urinary bladder 848029690 N32.81 flomax 0.4 mg dailygemte sa 75 mg dailymonit or urine output and ss [id number] Antonieta Brito NP [address] [place] [address] 01/14/2024 10:54:41 01/15/2024 03:49:42 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 chronic pain sp surgery last year, [...] allergy-to lerates)pa in physiatry f/u Essential hypertension 48636828 I10 hr bp stablecarr juan manuel dxmetoprol [...] care Gastroesop hageal reflux disease without esophagitis 239094791 K21.9 pantoprazo le 40 mg dailymonit or sx Chronic back pain 847453 002 G89.29 see pain regimen abovehas cortisone injections with dr sharif scheduled Asthenia 60468400 R53.1 deconditio nedPT OT eval and treatcont with lift in shoe Mixed anxi ety and depressive disorder 418878577 F41.8 carrying dxencourag e getting oob for mealspsych prnmonitor mood and effecteffe xor 150 mg daily and 37.5 mg dailyativa n 1 mg bid for anxiety Irritation of penis 3715 18899 N48.89 pt with irritation to penis distal shaftnysta tin triamcinol one cream bid topically to affected areamonito r for changessee pain meds above [id number] Smitha Sparks MD [address] [address] 01/14/2024 13:17:18 01/16/2024 09:22:40 Dislocation of hip joint prosthesis 767011548 T84.021D As above. Essential hypertension 02280517 I10 In good control since return.Con tinue [...] supports. Gastroesop hageal reflux disease without esophagitis 788815983 K21.9 No current sxs.Contin ue pantoprazo le 40 mg qdMonitor GI sxs Chronic back pain 848448 002 G89.29 Chronic pain.Is followed by Dr. [...] on 01/24 for steroid injections . Asthenia 82426545 R53.1 As above. Gout 92631939 M10.09 No recent flares.Tx prn History of pulmonary embolus 158349741 Z86.711 Continue Eliquis 5 mg BIDMonitor for sxs. Insomnia 996999120 G47.0 9 Continue melatonin 10 mg qhsMonitor sleep patterns Mixed anxi ety and depressive disorder 378733036 F41.8 Mood good today.Cont inue effexor 187.5 mg qd and lorazepam 1 mg BID.Monito r mood.Psych consult prn. Paroxysmal atrial fibrillation 066570772 I48.0 Rate in good control on meds as above.Cont inue eliquis 5 mg BID for AC.Monitor HR and bleeding risk. Anemia due to blood loss 346562659 D50.0 Continues to be stable.Mon itor. Seasonal allergy 4028606 04 J30.2 No current sxs.Contin ue cetirizine 10 mg qd.Monitor Overactive urinary bladder 230090619 N32.81 Stable.Con tinue tamsulosin 0.4 mg qd and gemtesa 75 mg qdMonitor urinary function. Irritation of penis 3715 07842 N48.89 Recurrent problem.Co ntinue nystatin/t riamcinolo ne cream BID to affected areaMonito r for improvemen t. [id number] ALEXIS DOLAN NP [facility] [address] 01/21/2024 08:51:05 01/22/2024 11:58:27 Fall 7148081 R29.6 Continues with frequent falls.Need s PT/OT for strengthen ing, balance, gait training, safety and function.C ontinue fall precaution s.Monitor for safety.Wou ld likely benefit from more supportive living situation, but is resistant. Working with rehab re: proper adaptive equipment at home to facilitate a more successful discharge. Continue to discuss outpt. supports. Asthenia 19428568 R53.1 As above. Chronic back pain 472909 002 G89.29 Chronic pain.Is followed by Dr. [...] . Dislocatio n of hip joint prosthesis 236507409 T84.021D As above. Essential hypertension 20411360 I10 In good control since return.Con tinue metoprolol 12.5 mg BID, hold for SBP<120 or pulse<60Mo nitor BP and labs Gastroesop hageal reflux disease without esophagitis 788634764 K21.9 No current sxs.Contin ue pantoprazo le 40 mg qdMonitor GI sxs Gout 89399237 M10.09 No recent flares.Tx prn History of pulmonary embolus 587837345 Z86.711 Continue Eliquis 5 mg BIDMonitor for sxs. Insomnia 616406466 G47.0 9 Continue melatonin 10 mg qhsMonitor sleep patterns Mixed anxi ety and depressive disorder 906249864 F41.8 Mood good today.Cont inue effexor 187.5 mg qd and lorazepam 1 mg BID.Monito r mood.Psych consult prn. Paroxysmal atrial fibrillation 127893201 I48.0 Rate in good control on meds as above.Cont inue eliquis 5 mg BID for AC.Monitor HR and bleeding risk. Anemia due to blood loss 338885136 D50.0 Hgb 8.9 -> 8.3Monitor CBC, VS, s/s active bleeding Seasonal allergy 4960236 04 J30.2 No current sxs.Contin ue cetirizine 10 mg qd.Monitor Overactive urinary bladder 983504030 N32.81 Stable.Con tinue tamsulosin 0.4 mg qd and gemtesa 75 mg qdMonitor urinary function. Irritation of penis 3715 18553 N48.89 Recurrent problem.Co ntinue nystatin/t riamcinolo ne cream BID to affected areaMonito r for [facility] [place]. [id number] ALEXIS DOLAN NP [facility] [address] [address] 01/23/2024 12:21:17 01/27/2024 10:33:12 Fall R29.6 No recent fallsWould likely benefit from more supportive living situation, but is resistant. PT/OT for strengthen ing, balance, gait training, safety and function.C ontinue fall precaution s.Monitor for safety.Con radha working with rehab re: proper adaptive equipment at home to facilitate a more successful discharge. Continue to discuss outpt. supports. Asthenia 92779906 R53.1 deconditio samuel due to multiple ER visits and fallsConti nue with PT/OT for strengthen ing and enduranceC ontinue to monitor Anemia due to blood loss 666489587 D50.0 Asymptomat icHgb improving 8.3 -> 9.3Monitor CBC, VS, s/s active bleeding Chronic back pain 209045 002 G89.29 Chronic pain-wll managed per patientFol [...] . Dislocatio n of hip joint prosthesis 763896041 T84.021D As above. Essential hypertension 61617682 I10 BP's stableAsym tpomaticCo ntinue metoprolol 12.5 mg BID, with parameters -hold for SBP<120 or pulse<60Mo nitor VS and labs Gastroesop hageal reflux disease without esophagitis 757580795 K21.9 Asymptomat icContinue pantoprazo le 40 mg qdMonitor GI sxs History of pulmonary embolus 221684767 Z86.711 Asymtomati cContinue Eliquis 5 mg BIDMonitor for sxs.Monito r s/s of bleeding Insomnia 515361812 G47.0 9 Not an issue todayConti nue melatonin 10 mg qhsMonitor sleep patterns Mixed anxi ety and depressive disorder 094714521 F41.8 Mood good today.Cont inue effexor 187.5 mg qd and lorazepam 1 mg BID.Monito r mood.Psych consult prn. Paroxysmal atrial fibrillation 693435410 I48.0 Rate in good control on BBContinue eliquis 5 mg BID for AC.Monitor HR and bleeding risk. Overactive urinary bladder 524439361 N32.81 Asymptomat icUsing urinalCont inue tamsulosin 0.4 mg qd and gemtesa 75 mg qdMonitor urinary function. Irritation of penis 3715 64017 N48.89 Recurrent problem.Co ntinue nystatin/t riamcinolo ne cream BID to affected areaMonito r for improvemen t.Pt. to schedule a Urology appt. to address this concern. [id number] ALEXIS DOLAN NP [facility] [place] [address] 01/28/2024 12:19:29 01/29/2024 11:06:00 Fall 2210934 R29.6 No recent fallsWould likely benefit from more supportive living situation, but is resistant. PT/OT for strengthen ing, balance, gait training, safety and function.C ontinue fall precaution s.Monitor for safety.Dion garcia working with rehab re: proper adaptive equipment at home to facilitate a more successful discharge. Continue to discuss outpt. supports. Asthenia 01837361 R53.1 deconditio samuel due to multiple ER visits and fallsConti nue with PT/OT for strengthen ing and enduranceC ontinue to monitor Anemia due to blood loss 350023510 D50.0 Asymptomat icHgb improving 8.3 -> 9.3Monitor CBC, VS, s/s active bleeding Irritation of penis 3715 70551 N48.89 Recurrent problem.Co ntinue nystatin/t riamcinolo ne cream BID to affected areaMonito r for improvemen t.Pt. to schedule a Urology appt. to address this concern. Chronic back pain 021842 002 G89.29 Chronic pain-well managed per patientFol [...] . Dislocatio n of hip joint prosthesis 959265669 T84.021D As above. Essential hypertension 80452062 I10 BP's stableCont inue metoprolol 12.5 mg BID, with parameters -hold for SBP<120 or pulse<60Mo nitor VS and labs Gastroesop hageal reflux disease without esophagitis 872113136 K21.9 Asymptomat icContinue pantoprazo le 40 mg qdMonitor GI sxs History of pulmonary embolus 824641709 Z86.711 Continue Eliquis 5 mg BIDMonitor for sxs.Monito r s/s of bleeding Insomnia 657290754 G47.0 9 Continue melatonin 10 mg qhsMonitor sleep patterns Mixed anxi ety and depressive disorder 425075272 F41.8 Mood good today.Cont inue effexor 187.5 mg qd and lorazepam 1 mg BID and 1 mg qd prn x 14 d, due for re-eval tor mood.Psych consult prn. Paroxysmal atrial fibrillation 973590293 I48.0 Rate in good control on BBContinue eliquis 5 mg BID for AC.Monitor HR and bleeding risk. Overactive urinary bladder 298018822 N32.81 Using urinalCont inue tamsulosin 0.4 mg qd and gemtesa 75 mg qdMonitor urinary function. [id number] Antonieta Brito NP [facility] [address] 01/29/2024 08:45:23 01/30/2024 15:27:24 Fall 0554593 R29.6 10ed rails are in and should be installed today per pt No recent falls, improving with strength and awarenessW ould likely benefit from more supportive living situation, but is resistant. social and human services assistant has discussed this with pt.PT/OT for strengthen ing, balance, gait training, safety and function.C ontinue fall precaution s.Monitor for safety.Dion garcia working with rehab re: proper adaptive equipment at home to facilitate a more successful discharge. Continue to discuss outpt. supports. Asthenia 19523388 R53.1 deconditio samuel due to multiple ER visits and fallsConti nue with PT/OT for strengthen ing and enduranceC ontinue to monitor Anemia due to blood loss 254392968 D50.0 Asymptomat ic, h/h improvingH gb improving 8.3 -> 9.3Monitor CBC, VS, s/s active bleeding Irritation of penis 3715 28654 N48.89 Recurrent problem.Co ntinue nystatin/t riamcinolo ne cream BID to affected areaMonito r for improvemen t.Pt. to schedule a Urology appt. to address this concern. Chronic back pain 150872 002 G89.29 Chronic pain-well managed per patientFol [...] . Dislocatio n of hip joint prosthesis 781483582 T84.021D resolvedAs above. Essential hypertension 10064997 I10 BP's stableCont inuemetopr olol 12.5 mg BID, with parameters -hold for SBP<120 or pulse<60Mo nitor VS and labs Gastroesop hageal reflux disease without esophagitis 504760687 K21.9 Asymptomat icContinue pantoprazo le 40 mg qdMonitor GI sxs History of pulmonary embolus 312404364 Z86.711 ContinueEl iquis 5 mg BIDMonitor for sxs.Monito r s/s of bleeding Insomnia 593086309 G47.0 9 Continueme latonin 10 mg qhsMonitor sleep patterns Mixed anxi ety and depressive disorder 884539048 F41.8 Mood good today.Cont inueeffexo r 187.5 mg qdlorazepa m 1 mg BID and 1 mg qd prn x 14 d, due for re-eval 02/06(was not on this at home and will not go home with this)Monit or mood.Psych consult prn. Paroxysmal atrial fibrillation 009442264 I48.0 Rate in good control on BBContinue eliquis 5 mg BID for AC.Monitor HR and bleeding risk. Overactive urinary bladder 104579947 N32.81 Continueta msulosin 0.4 mg qd and gemtesa 75 mg qdMonitor urinary function. [id number] Antonieta Brito NP [address] [place] [address] 01/30/2024 11:14:59 01/31/2024 10:24:10 Chronic back pain 128696680 G89.29 Chronic pain-well managed per patientFol lowed [...] .01/29 cont with above plan Fall R29.6 01/29 bed rails are installed per pt for home useNo recent falls, improving with strength and awarenessW ould likely benefit from more supportive living situation, but is resistant. social and human services assistant has discussed this with pt.PT/OT for strengthen ing, balance, gait training, safety and function.C ontinue fall precaution s.Monitor for safety.Dion garcia working with rehab re: proper adaptive equipment at home to facilitate a more successful discharge. Continue to discuss outpt. supports.o n eliquis, if falls continue, may need to be taken off this Asthenia 16896085 R53.1 deconditio samuel due to multiple ER visits and fallsConti nue with PT/OT for strengthen ing and enduranceC ontinue to monitor Essential hypertension 84835370 I10 BP's stableCont inuemetopr olol 12.5 mg BID, with parameters -hold for SBP<120 or pulse<60Mo nitor VS and labs Gastroesop hageal reflux disease without esophagitis 858881262 K21.9 Asymptomat icContinue pantoprazo le 40 mg qdMonitor GI sxs History of pulmonary embolus 269343139 Z86.711 ContinueEl iquis 5 mg BIDMonitor for sxs.Monito r s/s of bleeding Insomnia 501665796 G47.0 9 Continueme latonin 10 mg qhsMonitor sleep patterns Mixed anxi ety and depressive disorder 748167634 F41.8 Mood good today.Cont inueeffexo r 187.5 mg qdlorazepa m 1 mg BID and 1 mg qd prn x 14 d, due for re-eval 02/06(was not on this at home and will not go home with this)Monit or mood.Psych consult prn. Paroxysmal atrial fibrillation 353331320 I48.0 Rate in good control on BBContinue eliquis 5 mg BID for AC.Monitor HR and bleeding risk.if falls continue, may need to be taken off this Dry eyes 929702429 H04.1 23 pt with dry eye today01/29 artificial tears 1gtt each eye bidmonitor [id number] Antonieta Brit[facility] [address] 01/31/2024 12:19:46 02/03/2024 12:09:22 Chronic back pain 282979039 G89.29 Chronic pain-well managed per patientFol lowed by Dr. Lara for steroid injections and Dr. Sanchez (?retired) for medsContin ue with01/28 decreased oxycodone from 5 mg q 8 hrs prn to q 24 hours prn and will not dc with oxycodone1 increase gabapentin from 200 mg to 300 mg po BID,cont APAP 650 mg q 4 hrs prn.01/30 pain controlled at this timefu pain management and PCP will not rx oxycodone with falls, pt awareHas F/U with Dr. Lara on 02/21 for steroid injections .01/29 cont with above plan Fall R29.6 01/30 had unwitnesse d fall and suffered skin tearimprov ing with strength and awareness with therapyWou ld likely benefit from more supportive living situation, but is resistant. social and human services assistant has discussed this with pt.01/30 plan to [...] per ptContinue to discuss outpt. supports.o beverly zayrasenaiterna, if falls continue, may need to be taken off this Asthenia 80052439 R53.1 deconditio samuel due to multiple ER visits and fallsConti nue with PT/OT for strengthen ing and enduranceC ontinue to monitor Mixed anxi ety and depressive disorder 301194626 F41.8 Mood good today.Cont inueeffexo r 187.5 mg qdlorazepa m 1 mg BID and 1 mg qd prn x 14 d, due for re-eval 02/06(was not on this at home and will not go home with this as he is high risk for falls)Steven tor mood.Psych consult prn. Respirator y tract congestion and cough 388610308 R05.8 pt with viral symptoms of congestion [...] bmp on 02/02monito r Tear of skin 776599000 T 14.8XXA left forearm skin tearns wash, pat dry, leave steri strips in place(let them fall off on there own) and cover with bodered dressing daily [id number] Antonieta Brito NP [facility] [address] 02/03/2024 16:12:05 02/04/2024 09:52:24 Chronic back pain 010982160 G89.29 Chronic pain-well managed per patientFol lowed [...] on 02/21 for steroid injections . Asthenia 12522093 R53.1 deconditio samuel due to multiple ER visits and fallsConti nue with PT/OT for strengthen ing and enduranceC ontinue to monitor Mixed anxi ety and depressive disorder 923652730 F41.8 Mood good today.Cont inueeffexo r 187.5 mg qdlorazepa m 1 mg BID and 1 mg qd prn x 14 d, due for re-eval 02/06(was not on this at home and will not go home with this as he is high risk for falls)Steven tor mood.Psych consult prn. Acute COVID-19 331620975 8 U07.1 pt with viral symptoms of congestion , cough and rhinorhea notedPt insists this is his regular rhinorhea and it is clear for 4-5 daysnote; covid in facility 01/30 change zyrtec to loraditine 10 mg po qd covid positive on 01/31, started on paxlovid full dose by quality control technician over the tgpkchu38/ 7 startwill decrease eliquis to 2.5 mg po bid x 5 days (rec by pharmacy due to paxlovid )isolation precaution s refuses mucinex contsuppor tive careencour age po fluids >2 l/24 hoursrobit ussin 10 ml po bid and q 6 hours prn coughcbc with diff, bmp on 02/02 stablemoni tor Recurrent falls 86044215 2 R29.6 note:01/30 had unwitnesse d fall and suffered skin tearimprov ing with strength and awareness with therapyWou ld likely benefit from more supportive living situation, but is resistant. social and human services assistant has discussed this with pt.01/30 plan to [...] may need to be taken off this [id number] ALEXIS DOLAN NP [address] [address] 02/06/2024 14:59:12 02/10/2024 09:35:59 Acute COVID-19 2015610454 U07.1 Tested pos. ympto ms of congestion , cough and rhinorheaC ompleting paxlovidCl inically improving, reports feeling much better today.Will repeat covid testing tomorrowEa eric to test neg. so he can continue to work on d/c plans.cont inue:suppo rtive careencour age po fluids >2 l/24 hoursrobit ussin 10 ml po bid and q 6 hours prn cough Chronic back pain 277720 002 G89.29 Chronic pain-well managed per patientFol [...] on 02/21 for steroid injections . Asthenia 71634148 R53.1 deconditio samuel due to multiple ER visits and fallsConti nue with PT/OT for strengthen ing and enduranceC ontinue to monitor Mixed anxi ety and depressive disorder 422190557 F41.8 Mood good today.Cont inueeffexo r 187.5 mg qdlorazepa m 1 mg BID and 1 mg qd prn x 14 d, will renew for another 14 d(was not on this at home and will not go home with this as he is high risk for falls)Steven tor mood.Psych consult prn. Recurrent falls 61760738 2 R29.6 note:01/30 had unwitnesse d fall and suffered skin tearimprov ing with strength and awareness with therapyWou ld likely benefit from more supportive living situation, but is resistant. social and human services assistant has discussed this with pt.01/30 plan to [...] per ptContinue to discuss outpt. supports.o n eliquis, if falls continue, may need to be taken off this [id number] ALEXIS DOLAN NP [address] [address] 02/11/2024 10:52:42 02/12/2024 12:31:32 Acute COVID-19 6446139340 U07.1 Tested pos. ympto ms of congestion , cough and rhinorheaC ompleted paxlovid with clinical improvemen t, feeling much better.Melanie mark neg. onti nue supportive careMonito r Chronic back pain 007971 002 G89.29 Chronic pain-well managed per patientFol [...] on 02/21 for steroid injections . Asthenia 88136420 R53.1 deconditio samuel due to multiple ER visits and fallsConti nue with PT/OT for strengthen ing and enduranceC ontinue to monitorGoa l remains to return home, working on more adaptive equipment in the home Mixed anxi ety and depressive disorder 835013362 F41.8 Mood good today.Cont inueeffexo r 187.5 mg qdlorazepa m 1 mg BID and 1 mg qd prn x 14 d, will renew for another 14 d(was not on this at home and will not go home with this as he is high risk for falls)Steven tor mood.Psych consult prn. Recurrent falls 47135678 2 R29.6 01/30 - unwitnesse d fall and suffered skin tearimprov ing with strength and awareness with therapyWou ld likely benefit from more supportive living situation, but is resistant. social and human services assistant has discussed this with pt.Continu e fall precaution s.Monitor for safety.Dion garcia working with rehab re: proper adaptive equipment at home to facilitate a more successful discharge with new bed rails in place on 01/29 at home per ptContinue to discuss outpt. supports.O n eliquis, if falls continue, may need to reconsider use. Paroxysmal atrial fibrillation 131417551 I48.0 Rate in good control on BBContinue eliquis 5 mg BID for AC.Monitor HR and bleeding risk. 415458 Antonieta Brito NP [facility] [address] [address] 02/12/2024 16:56:54 02/17/2024 09:14:50 Acute COVID-19 [id number] U07.1 Tested pos. 01/31 with covid resolvedSy mptoms of congestion , cough and rhinorhea resolvedCo mpleted paxlovid with clinical improvemen t, feeling much better.Melanie mark neg. onti nue supportive careMonito r for sequelae Chronic back pain 212459 002 G89.29 Chronic pain-well managed per patientFol [...] on 02/21 for steroid injections . Asthenia 24242878 R53.1 deconditio samuel due to multiple ER visits and fallsConti nue with PT/OT for strengthen ing and enduranceC ontinue to monitorGoa l remains to return home, working on more adaptive equipment in the home Mixed anxi ety and depressive disorder 247115980 F41.8 Mood good today.Cont inueeffexo r 187.5 mg qdlorazepa m 1 mg BID and 1 mg qd prn x 14 d, will renew for another 14 d(was not on this at home and will not go home with this as he is high risk for falls)Steven tor mood.Psych consult prn. Paroxysmal atrial fibrillation 770143656 I48.0 Rate in good control on BBContinue eliquis 5 mg BID for AC.Monitor HR and bleeding risk. Leukocytosis 413599571 D 72.829 02/11 with unknown source of wbc 16.3 and recent covid dxstartcxr to rule out pnacbc and bmpand urinalysis todaywill attempt to get workup completed to ensure no infection before dc [id number] Antonieta Brito NP [address] [address] 02/13/2024 09:46:58 02/17/2024 09:45:20 Leukocytosis 677930209 D72.829 02/11 with unknown source of wbc 16.3 and wbc 17.5 on 02/12 and recent covid dxlikely from sinusituss tartcxr neg for acute diseaase on 02/12cbc with diff , bld cultures, and bmp in am 02/13urina lysis pendinghol d off on dc until infection resolved Acute COVID-19 [id number] 8 U07.1 resolvedTe sted pos. 01/31 with covidSympt oms of congestion , cough and rhinorhea resolvedCo mpleted paxlovid with clinical improvemen t, feeling much better.Melanie mark neg. onti nue supportive careMonito r for sequelae Chronic back pain 239998 002 G89.29 Chronic pain-well managed per patientFol [...] on 02/21 for steroid injections . Asthenia [id number] R53.1 deconditio samuel due to multiple ER visits and fallsConti nue with PT/OT for strengthen ing and enduranceC ontinue to monitorGoa l remains to return home, working on more adaptive equipment in the home Mixed anxi ety and depressive disorder 963339643 F41.8 Mood good today.Cont inueeffexo r 187.5 mg qdlorazepa m 1 mg BID and 1 mg qd prn x 14 d, will renew for another 14 d(was not on this at home and will not go home with this as he is high risk for falls)Steven tor mood.Psych consult prn. Paroxysmal atrial fibrillation 683019728 I48.0 Rate in good control on BBContinue eliquis 5 mg BID for AC.Monitor HR and bleeding risk. Acute sinusitis 42633840 J01.90 pt with wbc count of 17.5 todayhas notable hx of sinusitis several times a year with recent covid nasal drainage and residual fullness to sinus areawill treat for sinusitis with increased countcxr negative for pna on start augmentin 875/125 mg po bid x 10 days with probioticm onitor [id number] Antonieta Brito NP [address] [address] 02/14/2024 13:28:53 02/18/2024 09:46:18 Acute sinusitis 69363724 J01.90 pt with wbc as above increasedh as notable hx of sinusitis several times a year with recent covid nasal drainage and residual fullness to sinus area and treated for sinusitisc xr negative for pna on ugme ntin 875/125 mg po bid x 10 days with probioticm onitor Leukocytosis 468206612 D 72.829 with unknown source of wbc 16.3 and wbc 17.5 on 02/12 and recent covid and 15.4 on 10/18 dxlikely from sinusitusn ote;cxr neg for acute diseaase on 02/12cbc with diff as above , bld cultures pending ,urinalysi s esenntiall y neg for infectionh old off on dc until infection resolvedcb c with diff and bmp on saturday Chronic back pain 272918 002 G89.29 Chronic pain- per patientFol lowed [...] on 02/21 for steroid injections . Asthenia 77428335 R53.1 deconditio samuel due to multiple ER visits and fallsConti nue with PT/OT for strengthen ing and enduranceC ontinue to monitorGoa l remains to return home, working on more adaptive equipment in the home Mixed anxi ety and depressive disorder 081596356 F41.8 Mood good today.Cont inueeffexo r 187.5 mg qdlorazepa m 1 mg BID and 1 mg qd prn x 14 d, will renew for another 14 d(was not on this at home and will not go home with this as he is high risk for falls)Steven tor mood.Psych consult prn. [id number] [facility] [address] 02/17/2024 08:15:13 02/19/2024 11:21:28 Leukocytosis 886306907 D72.829 with unknown source of wbc 16.3 [...] and bmp on or saturday Acute sinusitis 06129729 J01.90 pt with wbc as above increasedh as notable hx of sinusitis several times a year with recent covid nasal drainage and residual fullness to sinus area and treated for sinusitisc xr negative for pna on ugme ntin 875/125 mg po bid x 10 days with probiotic totalmonit or Chronic back pain 421057 002 G89.29 Chronic pain- per patientFol lowed [...] on 02/21 for steroid injections . Asthenia 72199781 R53.1 deconditio samuel due to multiple ER visits and fallsConti nue with PT/OT for strengthen ing and enduranceC ontinue to monitorGoa suleman remains to return home, working on more adaptive equipment in the home Loose stool 247249961 R1 9.5 stool loose02/16 cdiff sampleincr ease imodium tab with first loose stool and 2 tabs with each loose stool after no more than 7 tabs per daypush po fluids [id number] ALEXIS DOLAN NP [facility] [address] [address] 02/18/2024 16:27:21 02/19/2024 11:45:47 Loose stool 135568333 R19.5 Stool loose over the weekendCdi ff [...] it and it is masking sx. Leukocytosis 330989471 D 72.829 with unknown sourcewbc 16.3,17.5 last [...] and could consider returning home Acute sinusitis 30498323 J01.90 pt with wbc as above increasedh as notable hx of sinusitis several times a year with recent covid nasal drainage and residual fullness to sinus area and treated for sinusitisc xr negative for pna on 02/12Curre ntly on augmentin 875/125 mg po bid x 10 days with probioticm onitor Chronic back pain 333565 002 G89.29 Chronic pain- per patientFol lowed [...] on 02/21 for steroid injections . Asthenia 44535871 R53.1 deconditio samuel due to multiple ER visits and fallsConti nue with PT/OT for strengthen ing and enduranceC ontinue to monitorGoa l remains to return home, working on more adaptive equipment in the home [id number] Antonieta Brito NP [address] [address] 02/20/2024 10:15:20 02/24/2024 11:12:40 Loose stool 112354445 R19.5 resolved, feeling betterstoo l sample unable to tested for cdif as it is too formed.Michael y unlikely c diffWould avoid imodium for now just in case he is using it and it is masking sx. Leukocytosis 404380409 D 72.829 with unknown sourcewbc 16.3,17.5 last [...] and appt for outpt care Acute sinusitis 82673083 J01.90 pt with wbc as above increased now resolving with abxhas notable hx of sinusitis several times a year with recent covid nasal drainage and residual fullness to sinus area and treated for sinusitisc xr negative for pna on 02/12Curre ntly on augmentin 875/125 mg po bid x 10 days with probioticm onitor Chronic back pain 087791 002 G89.29 Chronic pain- per patientFol lowed [...] on 02/21 for steroid injections . Asthenia 68158769 R53.1 deconditio samuel due to multiple ER visits and fallsConti nue with PT/OT for strengthen ing and enduranceC ontinue to monitorGoa l remains to return home, working on more adaptive equipment in the home [id number] Antonieta Brito NP [address] [place] [address] 02/24/2024 13:50:49 02/25/2024 11:17:32 Leukocytosis 864968230 D72.829 resolved with abx to 9.5 today on 02/23 was 17.5 on 02/12Work up neg. so far, so suspecting may be related to sinusitis, currently on augmentin. will need to followed outpt with pcp Dr Almaraz Acute sinusitis 72337544 J01.90 resolved with abxhas notable hx of sinusitis several times a year with recent covid nasal drainage and residual fullness to sinus area and treated for sinusitisc xr negative for pna on 02/12compl eted augmentin 875/125 mg po bid x 10 days with probioticm onitor outpt with pcp Chronic back pain 381780 002 G89.29 Chronic pain- per patientFol lowed [...] for steroid injections outpt with pcp Asthenia 72112721 R53.1 weakness improved with therapy hereContin ue with PT/OT for strengthen ing and endurance outpt prnvna [facility] care prnContinu e to monitorGoa l remains to return home, working on more adaptive equipment in the home Mixed anxi ety and depressive disorder 036314976 F41.8 Mood good today.Cont inueeffexo r 187.5 mg qdlorazepa m 1 mg BID prn (states he has plenty at home)(was not on this at home and will not go home with this as he is high risk for falls)Steven tor mood.Psych consult prn outpt Acute COVID-19 851083407 8 U07.1 resolvedTe sted pos. 01/31 with covidSympt oms of congestion , cough and rhinorhea resolvedCo mpleted paxlovid with clinical improvemen t, feeling much better.Melanie mark neg. 02/09 Paroxysmal atrial fibrillation 700644439 I48.0 Rate in good control on BBContinue eliquis 5 mg BID for AC.Monitor HR and bleeding risk. Recurrent falls 98983711 2 R29.6 recurrent fallsWould likely benefit from more supportive living situation, but is resistant. social and human services assistant has discussed this with pt.Continu e fall precaution s. at homeMonito r for safety at home.new bed rails in place on 01/29 at home per ptContinue to discuss/of sera outpt. supports prn outpt with pcp Essential hypertension 87723070 I10 BP's stableCont inuemetopr olol 12.5 mg BID, with parameters -hold for SBP<120 or pulse<60Mo nitor outpt with pcp Gastroesop hageal reflux disease without esophagitis 611565116 K21.9 Asymptomat icContinue pantoprazo le 40 mg qdMonitor GI sxs ouptt with pcp History of pulmonary embolus 124573275 Z86.711 Continueno longer on eliquis due to high fall riskMonito r for sxs. oupt with pcp Insomnia 029748788 G47.0 9 Continueme latonin 10 mg qhsMonitor sleep patterns outpt with pcp Constipation 79557928 K5 9.00 pt with intermitte nt constipati oncontmira lax 17 grams po dailycolac e 100 mg po bidmonitor outpt with pcp [id number] Smitha Sparks MD [address] [address] 02/28/2024 13:04:09 03/02/2024 12:08:50 Fall 9408816 R29.6 As above. Asthenia 61360924 R53.1 Pt feels he is still too weak to manage at home. Feels he decided to go home too soon.Back for more rehab services.W ill restart PT/OT for strengthen ing, balance, gait training, safety and function.C ontinue fall precaution s.Monitor for safety.Nee ds to work on alternate housing options. Chronic back pain 042060 002 G89.29 Chronic pain.Is followed by Dr. [...] meds. Dislocatio n of hip joint prosthesis 556699467 T84.021D Resolved. Essential hypertension 16537153 I10 In good control.Co ntinue metoprolol 12.5 mg BID, hold for SBP<120 or pulse<60Mo nitor BP and labs Gastroesop hageal reflux disease without esophagitis 733697919 K21.9 No current sxs.Contin ue pantoprazo le 40 mg qdMonitor GI sxs Gout 67318084 M10.09 No recent flares.Tx prn History of pulmonary embolus 905578397 Z86.711 Continue Eliquis 5 mg BIDMonitor for sxs. Insomnia 207106371 G47.0 9 Continue melatonin 10 mg qhsMonitor sleep patterns Mixed anxi ety and depressive disorder 904043069 F41.8 Mood good today.Cont inue effexor 187.5 mg qd and lorazepam 1 mg BID.Monito r mood.Psych consult prn. Paroxysmal atrial fibrillation 100642372 I48.0 Rate in good control on meds as above.Cont inue eliquis 5 mg BID for AC.Monitor HR and bleeding risk. Anemia due to blood loss 823696094 D50.0 Continues to be stable.Mon itor. Seasonal allergy 6932329 04 J30.2 No current sxs.Contin ue cetirizine 10 mg qd.Monitor Overactive urinary bladder 805013849 N32.81 Stable.Con tinue tamsulosin 0.4 mg qd and gemtesa 75 mg qdMonitor urinary function. [id number] Antonieta Brito NP [address] [address] 03/05/2024 12:36:20 03/06/2024 11:38:17 Asthenia 97154100 R53.1 Pt feels he is still too [...] to fallssee above asthenia Chronic back pain 054612 002 G89.29 Chronic pain to hip and [...] PCP Dislocatio n of hip joint prosthesis 999738692 T84.021D hx ofxray in [facility] shows no acute abnormalit y Essential hypertension 42568041 I10 stable.Con tinuemetop rolol 12.5 mg BID, hold for SBP<120 or pulse<60Mo nitor BP and labs Gastroesop hageal reflux disease without esophagitis 498651380 K21.9 No current sxs.Contin uepantopra zole 40 mg qdMonitor GI sxs Gout 80332639 M10.09 No recent flares.Tx prn History of pulmonary embolus 730765036 Z86.711 ContinueEl iquis 5 mg BIDMonitor for sxs.length y discussion on anticoagul ation and multiple falls. He is clear he would like to stay on the ac.will attempt to wean benzo's off and dc oxycodone likely contributi ng to falls Insomnia 411816213 G47.0 9 Continueme latonin 10 mg qhsMonitor sleep patterns Mixed anxi ety and depressive disorder 809316566 F41.8 Mood good today.Cont inueeffexo r 187.5 mg qd11/7 change lorazepam 1 mg po qd prn and plan to wean next week.(of note: pt took multiple ativan pills while at rehab from home stock on last admission requiring [facility] admission) plan is to wean off permanentl y.pt 03/05 agreeable to change to buspar 10 mg po bid todayMonit or mood.Psych consult this week Paroxysmal atrial fibrillation 037591830 I48.0 Rate in good control on meds as above.Cont inueeliqui s 5 mg BID for AC.Monitor HR and bleeding risk.with ac: will attempt to wean benzo's off by next week and dc oxycodone likely contributi ng to falls Seasonal allergy 7733270 04 J30.2 No current sxs.Contin ue loratadine 10 mg qd.Monitor Overactive urinary bladder 423840586 N32.81 Stable, urinating good amountsCon tinuetamul osin 0.4 mg qd and gemtesa 75 mg qdMonitor urinary function. Urinary tr act infectious disease 28243288 N39.0 dx with UTI at [facility] felt r/t traumatic cath, noted urine culture negative and received ceftriaxon e in hospcontce furoxime 250 mg po bid x 7 days total03/05 add pyridium 100 mg po q 8 hours prn x 3days bladder painmonito r Aggressive behavior 6137 2000 F91.8 pt with aggressive behavior requiring [facility] admission( tx consisted of medication s to calm him down including haldol 10 mg, benadryl 50 mg IM, Zyprexa 10 mg IM x 2 and restraints . Nursing reported he also received narcan and evaluated by psych and el psych and ultimately dcd to rehab)psyc h eval and treatmonit or for behaviorss ee anxiety and depression Adult fail ure to thrive syndrome 687253555 R62.7 pt failing to thrive in community in independen t living situation with multiple readmissio ns and ER visitsneed s alternativ e living situation/ planwill look into assisted living this weekteam meeting with pt discussed options and agreeable with plan for > than 1 hour today.steven tor Taking hig h risk medication 3145740081 27611 Z91.89 pt ultimately took additional ativan from [...] from home while at rehabmonit or closely [id number] Antonieta Brito NP [place] [place] [address] [place] [address] 03/11/2024 10:59:48 03/12/2024 14:33:26 Aggressive behavior 39590537 F91.8 pt doing much better on buspar herenote: pt with aggressive behavior requiring [facility] admission( tx consisted of medication s to calm him down including haldol 10 mg, benadryl 50 mg IM, Zyprexa 10 mg IM x 2 and restraints . Nursing reported he also received narcan and evaluated by psych and el psych and ultimately dcd to rehab)psyc h eval and treatmonit or for behaviorss ee anxiety and depression Urinary tr act infectious disease 68417081 N39.0 resolveddx with UTI at [facility] felt r/t traumatic cath, noted urine culture negative and received ceftriaxon e in hospcontce furoxime 250 mg po bid x 7 days totalmonit or Adult fail ure to thrive syndrome 071957739 R62.7 pt failing to thrive in community in independen t living situation with multiple readmissio ns and ER visitsneed s alternativ e living situation/ planwill look into assisted living this weekteam meeting with pt discussed options and agreeable with plan for > than 1 hour today.steven tor Mixed anxi ety and depressive disorder 173304248 F41.8 Mood good today.Cont inueeffexo r 187.5 mg qd03/11 dc lorazepamc ont buspar 10 mg po bid today( working well and calm today)Steven tor mood.Psych consult this week Chronic back pain 367608 002 G89.29 Chronic pain to hip and [...] contributi ng to fallssee above asthenia Asthenia 47764749 R53.1 Pt feels he is still too [...] two. Dislocatio n of hip joint prosthesis 256323370 T84.021D hx ofxray in [facility] shows no acute abnormalit y Essential hypertension 08312918 I10 stable.Con tinuemetop rolol 12.5 mg BID, hold for SBP<120 or pulse<60Mo nitor BP and labs Gastroesop hageal reflux disease without esophagitis 277014698 K21.9 No current sxs.Contin uepantopra zole 40 mg qdMonitor GI sxs Gout 65138404 M10.09 No recent flares.Tx prn History of pulmonary embolus 522084631 Z86.711 ContinueEl iquis 5 mg BIDMonitor for sxs.length y discussion on anticoagul ation and multiple falls. He is clear he would like to stay on the ac.will attempt to wean benzo's off and dc oxycodone likely contributi ng to falls Insomnia 579811702 G47.0 9 Continueme latonin 10 mg qhsMonitor sleep patterns Paroxysmal atrial fibrillation 553837173 I48.0 Rate in good control on meds as above.Cont inueeliqui s 5 mg BID for AC.Monitor HR and bleeding risk.with ac: will attempt to wean benzo's off by next week and dc oxycodone likely contributi ng to falls Seasonal allergy 7027697 04 J30.2 No current sxs.Contin ue loratadine 10 mg qd.Monitor Overactive urinary bladder 670240558 N32.81 Stable, urinating good amountsCon tinuetamul osin 0.4 mg qd and gemtesa 75 mg qdMonitor urinary function. Taking hig h risk medication 8565849706 99650 Z91.89 pt ultimately took additional ativan from [...] from home while at rehabmonit or closely [id number] Antonieta Brito NP [address] [address] 03/13/2024 10:24:59 03/16/2024 12:26:17 Aggressive behavior 34489662 F91.8 pt doing much better on buspar here, pleasant todaynote: pt with aggressive behavior requiring [facility] admission( tx consisted of medication s to calm him down including haldol 10 mg, benadryl 50 mg IM, Zyprexa 10 mg IM x 2 and restraints . Nursing reported he also received narcan and evaluated by psych and el psych and ultimately dcd to rehab)psyc h eval and treatmonit or for behaviorss ee anxiety and depression Urinary tr act infectious disease 17343319 N39.0 resolveddx with UTI at [facility] felt r/t traumatic cath, noted urine culture negative and received ceftriaxon e in hospcontce furoxime 250 mg po bid x 7 days totalmonit or Adult fail ure to thrive syndrome 890906148 R62.7 pt failing to thrive in community in independen t living situation with multiple readmissio ns and ER visitsneed s alternativ e living situation/ planwill look into assisted living this week (still has not seen any [facility] as of 03/13)steven tor Mixed anxi ety and depressive disorder 871595797 F41.8 Mood good today pleasant.C ontinueeff exor 187.5 mg qdnote: 03/11 dc lorazepamc ont buspar 10 mg po bid today( working well and calm today)Steven tor mood.Psych consult this week Chronic back pain 657432 002 G89.29 Chronic pain to hip and [...] contributi ng to fallssee above asthenia Asthenia 35519035 R53.1 Pt feels he is still too [...] two. Dislocatio n of hip joint prosthesis 988381700 T84.021D hx ofxray in [facility] shows no acute abnormalit y Essential hypertension 36564122 I10 stable.Con tinuemetop rolol 12.5 mg BID, hold for SBP<120 or pulse<60Mo nitor BP and labs Gastroesop hageal reflux disease without esophagitis 447000055 K21.9 No current sxs.Contin uepantopra zole 40 mg qdMonitor GI sxs Gout 46543946 M10.09 No recent flares.Tx prn History of pulmonary embolus 801066277 Z86.711 ContinueEl iquis 5 mg BIDMonitor for sxs.on 03/11 lengthy discussion on anticoagul ation and multiple falls. He is clear he would like to stay on the ac.will attempt to wean benzo's off and dc oxycodone likely contributi ng to falls Insomnia 563393170 G47.0 9 Continueme latonin 10 mg qhsMonitor sleep patterns Paroxysmal atrial fibrillation 808857679 I48.0 Rate in good control on meds as above.Cont inueeliqui s 5 mg BID for AC.Monitor HR and bleeding risk.with ac: benzo's weaned off dc'd oxycodone likely contributi ng to falls Peripheral edema 4708170 00 R60.9 pt with 1+ peripheral edema bilaterall y to ankles? related to diet or ? gabapentin which was recently increased, no cardiac s/s today03/13 pt declines TEDSwill decrease salt and not wear tight socks to bedwill increase periods of rest with legs up todaywill monitor for effect [id number] Antonieta Brito, DIONICIO [facility] [address] 03/16/2024 19:54:09 03/23/2024 10:27:23 Peripheral edema 468738234 R60.9 see hpi withnew left swelling to ankleand right ankle resolvedpt denies any [id number]/1 12/20pt declines TEDSwill decrease salt and not wear tight socks to bedwill increase periods of rest with legs up03/16 dc gabapentin , pt doesnt feel it is helping much denies pain to right ankle but very ckbsagt28/ 18start u/s left lower leg ro clotstart xray left ankle ro injury/fxw ill monitor for effect Adult fail ure to thrive syndrome 327722016 R62.7 pt failing to thrive in community in independen t living situation with multiple readmissio ns and ER visitsneed s alternativ e living situation/ planwill look into assisted living this week (still has not seen any [facility] as of 03/16)steven tor Mixed anxi ety and depressive disorder 281970327 F41.8 Mood good today pleasant.C ontinueeff exor 187.5 mg qd03/16 increase buspar to 15 mg q am and 10 mg po qhsMonitor mood.Psych consult this week Chronic back pain 932861 002 G89.29 Chronic pain to hip and [...] ill trying to find new PCP Asthenia 85352416 R53.1 Pt feels he is still too [...] in the next week or two. Insomnia 305770995 G47.0 9 Continueme latonin 10 mg qhsMonitor sleep patterns Paroxysmal atrial fibrillation 655047034 I48.0 Rate in good control on meds as above.Cont inueeliqui s 5 mg BID for AC.Monitor HR and bleeding risk.with ac: benzo's weaned off dc'd oxycodone likely contributi ng to falls [id number] Antonieta Brito, DIONICIO [facility] [address] [place] [address] 03/18/2024 12:49:15 03/19/2024 09:15:52 Peripheral edema 266096791 R60.9 see hpi withleft swelling to ankleand right ankle resolvedpt denies any injury U/S and CT scan neg for fracture or clot in er on TEDs stockings on in am/off in pmwill monitor for effect Adult fail ure to thrive syndrome 114748850 R62.7 pt failing to thrive in community in independen t living situation with multiple readmissio ns and ER visitsneed s alternativ e living situation/ planwill look into assisted living this week (still has not seen any [facility] as of 03/18)steven tor Mixed anxi ety and depressive disorder 384503255 F41.8 Mood good today pleasant.C ontinueeff exor 187.5 mg qdbuspar 15 mg q am and 10 mg po qhs (recently increased) Monitor mood.Psych consult this week Chronic back pain 112733 002 G89.29 Chronic pain to hip and [...] ill trying to find new PCP Asthenia 38236331 R53.1 Pt feels he is still too [...] in the next week or two. Insomnia 986441053 G47.0 9 Continueme latonin 10 mg qhsMonitor sleep patterns Paroxysmal atrial fibrillation 811419955 I48.0 Rate in good control on meds as above.Cont inueeliqui s 5 mg BID for AC.Monitor HR and bleeding risk.with ac: benzo's weaned off dc'd oxycodone likely contributi ng to falls [id number] ALEXIS DOLAN NP [address] [address] 03/24/2024 13:46:06 03/25/2024 10:50:21 Peripheral edema 943078882 R60.9 left ankle swelling while here.Imagi ng neg. for clot and fracture.U sing supp. hose, continue as outpt.Elev ate legs when ableMonito r as outpt. Adult fail ure to thrive syndrome [id number] R62.7 pt failing to thrive in community in independen t living situation with multiple readmissio ns and ER visitsWant s to try to return home again, feels he is now ready.Othe r living options discussed and encouraged during this stay, he will think about but ultimately wants to go home. Mixed anxi ety and depressive disorder [id number] F41.8 Mood good today pleasant.C ontinue effexor 187.5 mg qdTapered off ativanAdde d:buspar 10 mg q am and 15 mg po qhshydroxy zine 25 mg q 8 hrs prnContinu e all upon discharge. Monitor mood and behaviors as outpt. Chronic back pain 243887 002 G89.29 Chronic pain to hip and [...] here)Has F/U with pain management as planned.St [facility] trying to find new PCP Asthenia [id number] R53.1 Has worked with PT OT, feels ready to go back home.Disch arging 03/25 with support of services. Insomnia 969807723 G47.0 9 Continueme latonin 10 mg qhsbuspar 15 mg q hsMonitor sleep patterns Paroxysmal atrial fibrillation 852406993 I48.0 Rate in good control on meds as above.Cont inueeliqui s 5 mg BID for AC.Monitor HR and bleeding risk. [id number] Smitha Sparks MD [address] [address] 03/31/2024 12:28:43 04/01/2024 10:45:37 Peripheral edema 401954210 R60.9 Improved.N o etiology found.Cont inue supp. hose.Atco te legs when ableMonito r as outpt. Adult fail ure to thrive syndrome 224551184 R62.7 Continuing to encourage pt to consider other living situations as current situation is difficult to manage.He wants to try to go to current home one more time.Consi dering [facility] or at least 1st floor apt. in custodial. Mixed anxi ety and depressive disorder 788460924 F41.8 Mood good today.Some med changes have been made since admission. Current meds are effexor 187.5 mg qd, Buspar 10 mg q am and 15 mg qhs, melatonin 20 mg qhs and hydroxyzin e 25 mg q 8 hrs prn.Contin ue all upon discharge. Monitor mood and behaviors as outpt. Chronic back pain 966811 002 G89.29 Chronic pain to hip and back, no pain todayIs followed by Dr. Lara for steroid shots.Cont inue lidocaine patch to hip and back daily, diclofenac gel to right hip TID, APAP 650 mg q 4 hrs prn.Has F/U with pain management as planned.St ill trying to find new PCP Asthenia 35856077 R53.1 Weak at baseline, but feels ready to manage at home.Will continue with home services.N eeds new wheelchair , consulted wit PT about specificat ions and wrote rx.PT/OT prn as outpt.Safe ty precaution s reviewed. Paroxysmal atrial fibrillation 086864691 I48.0 Rate in good control on meds as above.Cont inue eliquis 5 mg BID for AC.Monitor HR and bleeding risk as outpt. Essential hypertension 73871666 I10 In good control.Co ntinue metoprolol 12.5 mg BID, hold for SBP<120 or pulse<60Mo nitor BP and labs as outpt. Gastroesop hageal reflux disease without esophagitis 883530448 K21.9 No current sxs.Contin ue pantoprazo le 40 mg qdMonitor GI sxs as outpt. History of pulmonary embolus 617951710 Z86.711 Continue Eliquis 5 mg BIDMonitor as outpt. Anemia due to blood loss 632701323 D50.0 Continues to be stable.Mon itor as outpt. Seasonal allergy 7023254 04 J30.2 No current sxs.Contin ue cetirizine 10 mg qd.Monitor as outpt. Overactive urinary bladder 941691396 N32.81 Stable.Con tinue tamsulosin 0.4 mg qd and gemtesa 75 mg qdMonitor urinary function as outpt. [id number] Antonieta Brito, [facility] [address] [place] [address] 05/01/2024 08:25:47 05/04/2024 13:28:46 Asthenia 96676244 R53.1 Weak at baseline, is now TTWB with walker from recent ER visitPT/OT eval and treatSafet y precaution s reviewed.s upportive carerec using orthodic as much as possible with leg shortening Adult fail ure to thrive syndrome 915483854 R62.7 Continuing to encourage pt to consider other living situations as current situation is difficult to manage.obie gthy discussion on need to consider [facility] or increased supportive environmen t in near future as he is not able to manage in independen t living with repeated fallssocia l worker to discuss with pthe is currently alert and oriented and able to make his own decisions Mixed anxi ety and depressive disorder 052709486 F41.8 with hx of anxiety and depression with report of vivid dreams lately Do not recommend ativan with hx of misuse and decreased o2 sats in past conteffexo r 187.5 mg qd, Buspar 10 mg q am and 15 mg qhs, melatonin 10 mg qhs and hydroxyzin e 25 mg q 8 hrs prn.Monito r mood and behaviorss upportive prn Chronic back pain 384578 002 G89.29 Chronic pain to hip and [...] will left nsg knowmonito r Essential hypertension 82635126 I10 In good control.Co ntinueamlo dipine 2.5 mg po qdmetoprol ol 12.5 mg BID, hold for SBP<120 or pulse<60Mo nitor BP and labs as outpt. Paroxysmal atrial fibrillation 317984604 I48.0 Rate in good control on meds as above.Cont inueeliqui s 5 mg BID for AC.Monitor HR and bleeding risk as outpt. Gastroesop hageal reflux disease without esophagitis 915825445 K21.9 No current sxs.Contin uepantopra zole 40 mg qdMonitor GI sxs as outpt. History of pulmonary embolus 460954794 Z86.711 ContinueEl iquis 5 mg BIDMonitor 05/01/24 refer for pulmonolog y consult for report of sob with activity, intermitte nt o2 sats, etc...? sob related to panic/anxi ety or something more Anemia due to blood loss 782096522 D50.0 Continues to be stable.Mon itor cbc and bmp weekly, labs pending today Seasonal allergy 8550016 04 J30.2 No current sxs.Contin uecetirizi ne 10 mg qd.Monitor Overactive urinary bladder 002614785 N32.81 Continueta msulosin 0.4 mg qd and gemtesa 75 mg qdMonitor Fall R29.6 hx of recurrent falls on ac currentlyh e is insistent on staying on ac and educated on risk and agreeable to plan to dc dc'd oxycodone and ativan likely contributi ng to fallssee above asthenia History of total hip arthroplasty 3250519809 06 Z96.649 hx of total left hip arthroplas tyfu with Dr. 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 nsf/u with ortho in placefollo w ortho recs and update with concerns Adult fail ure to thrive syndrome 683856894 R62.7 question need to transition to assisted living or LTC with multiple recent hospitaliz ationscurr ently not safe to return home 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 stable on out patient medscontin uedpsych eval prnmonitor mood Essential hypertension 36512572 I10 norvasc 2.5 mg qdmetoprol ol 12.5 mg bidmonitor bp and need to titrate Paroxysmal atrial fibrillation 979125551 I48.0 eliquis 5 mg bidmetopro lol 12.5 mg bidmonitor for rate control Gastroesop hageal reflux disease without esophagitis 196161507 K21.9 protonix 40 mg qdmonitor sx relief History of pulmonary embolus 793102268 Z86.711 see abovemaint ained on eliquis Chronic re tention of urine 400732326 R33.8 maintained on flomax 0.4 mg qdmonitor for retentionu rology eval prn Chronic back pain 599945 002 G89.29 now off oxy with concern contributi ng to fall riskfollow ed by ortho Insomnia 396467471 G47.0 9 melatonin 10 mg qhsmonitor for effect Headache 12667036 R51.9 Hearing loss 30652166 H9 0.0 need to shoutconsi keaton need for audiology eval 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 appears mild at baselinemo nitor cognitive function and need to invoke [id number] Antonieta Brito NP [address] [address] 05/08/2024 19:22:41 05/12/2024 09:33:23 Recurrent falls 247534482 R29.6 see HPIrecurre nt falls and hospitaliz ations recentlyPT OT eval and treatmonit or fall risk and need for increased support in communityq uestion opioids and benzo contributi ng to fall risk no longer utilizingc ontinues on AC for a fib - aware of risk benefit History of total hip arthroplasty 6114962534 06 Z96.649 see above with hx of total left hip arthroplas ty and recurrent dislocatio nsTTWBorth otic shoe recommende df/u with ortho in placefollo w ortho recs and update with concerns Paroxysmal atrial fibrillation 435712469 I48.0 eliquis 5 mg bidmetopro lol 12.5 mg bidmonitor for rate control Adult fail ure to thrive syndrome 450177275 R62.7 question need to transition to assisted living or LTC with multiple recent hospitaliz ationscurr ently not safe to return home and looking into [facility] Mixed anxi ety and depressive disorder 492892868 F41.8 stable on out patient medscontin uedpsych eval prnmonitor mood Essential hypertension 91031845 I10 bp stablenorv asc 2.5 mg qdmetoprol ol 12.5 mg bidmonitor bp and need to titrate Minimal co gnitive impairment 507705071 G31.84 appears mild at baselinemo nitor cognitive function and need to invoke Gastroesop hageal reflux disease without esophagitis 531015871 K21.9 protonix 40 mg qdmonitor sx relief Chronic re tention of urine 379571083 R33.8 contflomax 0.4 mg qdmonitor for retentionu rology eval prn Chronic back pain 606462 002 G89.29 off oxy with concern contributi ng to fall riskfollow ed by orthodo not rec restarting Insomnia 251785184 G47.0 9 melatonin 10 mg qhsmonitor for effect Asthenia 93012281 R53.1 Weak at baseline, is now TTWB [...] fallssee above asthenia History of pulmonary embolus 523960121 Z86.711 ContinueEl iquis 5 mg BIDMonitor 05/01/24 refer for pulmonolog y consult for report of sob with activity, intermitte nt o2 sats, etc...? sob related to panic/anxi ety or something more Overactive urinary bladder 684364395 N32.81 Continueta msulosin 0.4 mg qd and gemtesa 75 mg qdMonitor [id number] Antonieta Brito NP [address] [address] 05/15/2024 09:04:20 05/18/2024 16:34:25 History of total hip arthroplasty 1768663025 06 Z96.649 see above with hx of total left hip arthroplas ty and recurrent dislocatio nsTTWB per orders on release from hospitalor topher harper recommende df/u with ortho in place Dr Octavio reaves ortho recs and update with concerns Recurrent falls 44051928 2 R29.6 see HPI for notesrecur rent falls and hospitaliz ations recentlyPT OT eval and treatmonit or fall risk and need for increased support in communityq uestion opioids and benzo contributi ng to fall risk no longer utilizingc ontinues on AC for a fib - aware of risk benefit Paroxysmal atrial fibrillation 897019852 I48.0 conteliqui s 5 mg bidmetopro lol 12.5 mg bidmonitor for rate control Adult fail ure to thrive syndrome 997704551 R62.7 question need to transition to assisted living or LTC with multiple recent hospitaliz ationshe plans to return to independen t living and is his own person, however not recommende dAnother list of [facility] is given to him and he reports he will visit a few Mixed anxi ety and depressive disorder 466448430 F41.8 stable on out patient medscontin uedpsych eval prnmonitor mood Essential hypertension 98788408 I10 bp stable, occ on the higher sidenorvas c 2.5 mg qdmetoprol ol 12.5 mg bidmonitor bp and need to titratewil l leave goal at SBP <150 as he is a high risk Minimal co gnitive impairment 404229507 G31.84 appears mild at baseline and able to make his own decisionsm onitor cognitive function and need to invoke Gastroesop hageal reflux disease without esophagitis 539056708 K21.9 protonix 40 mg qdmonitor sx relief Chronic re tention of urine 646496026 R33.8 contflomax 0.4 mg qdmonitor for retentionu rology eval prn Chronic back pain 948779 002 G89.29 off oxy with concern contributi ng to fall riskfollow ed by orthodo not rec restarting Insomnia 148038287 G47.0 9 melatonin 10 mg qhsmonitor for effect Asthenia 43778033 R53.1 Weak at baseline, is now TTWB with walker from recent ER visitPT/OT eval and treatSafet y precaution s reviewed.s upportive carerec using orthodic as much as possible with leg shortening [id number] [facility] [address] 05/18/2024 08:51:57 05/20/2024 10:57:15 History of total hip arthroplasty 4817220633 06 Z96.649 see above with hx of total left hip arthroplas ty and recurrent dislocatio nsno surgical interventi on at this timeTTWB per orders on release from hospitalor topher harper recommende df/u with ortho in place Dr Cheema outpt Recurrent falls 90325524 2 R29.6 see HPI for notesrecur rent falls and hospitaliz ations recentlymo nitor fall risk and need for increased support in communityq uestion opioids and benzo contributi ng to fall risk no longer utilizingc ontinue on AC for a fib - aware of risk benefit and wishes to continuefu with pcp outpt Paroxysmal atrial fibrillation 084006644 I48.0 conteliqui s 5 mg bidmetopro lol 12.5 mg bidmonitor for rate control outpt Adult fail ure to thrive syndrome 349200610 R62.7 question need to transition to assisted living or LTC with multiple recent hospitaliz ationshe plans to return to independen t living and is his own person, however not recommende dAnother list of [facility] is given to him and he reports he will visit a fewcont increased servicesmo nitor for need to return to SNF if unable to thrive in independen t living or [facility] with pcp outpt Mixed anxi ety and depressive disorder 976994545 F41.8 stable on out patient medscontin uedpsych eval prnmonitor mood outptNO longer on ativan and oxycodone and doing well off these meds as they seem to contribute to falls Essential hypertension 27001894 I10 bp stablecont norvasc 2.5 mg qdmetoprol ol 12.5 mg bidmonitor bp and need to titrate outpt with pcpwill leave goal at SBP <150 as he is a high risk Minimal co gnitive impairment 007643922 G31.84 appears mild at baseline and able to make his own decisionsm onitor cognitive function and need to invoke outpt with pcp Gastroesop hageal reflux disease without esophagitis 966049631 K21.9 protonix 40 mg qdmonitor outpt with pcp Chronic re tention of urine 341063961 R33.8 stable herecontfl omax 0.4 mg qdmonitor for retention outpt with pcpurology eval prn outpt Chronic back pain 783593 002 G89.29 off oxy with concern it was contributi ng to fall riskfollow ed by ortho outptfollo wed by pain management outptdo not rec restarting Insomnia 111169110 G47.0 9 melatonin 10 mg qhsmonitor for effect outpt Asthenia 18802238 R53.1 Weak at baseline, is now TTWB [...] Name 05/01/2024 2 [place] [id number] Ottoniel Salas [id number] 29 Ottoniel Salas 05/01/2024 1 [place] Ottoniel Mikala Maritza [id number] Ottoniel Vinelli 05/02/2024 2 [place] [id number] Ottoniel Salas [id number] 29 Ottoniel Vinelli 05/02/2024 1 [place] Ottoniel Mikala Maritza [id number] Ottoniel Vinelli 05/08/2024 2 [place] [id number] Ottoniel Salas [id number] 29 Ottoniel Vinelli 05/08/2024 1 [place] Ottoniel Mikala Maritza [id number] Ottoniel Vinelli 05/15/2024 2 [place] [id number] Ottoniel Salas [id number] 29 Ottoniel Vinelli 05/15/2024 1 [place] Ottoniel Mikala Maritza [id number] Ottoniel Vinelli 05/18/2024 2 [place] [id number] Ottoniel Salas [id number] 29 Ottoniel Vinelli 05/18/2024 1 [place] Ottoniel Mikala Maritza [id number] 7 Ottoniel Salas Notes Date Note Type [...] sig for afib on xarelto presented to [facility] after being found on the floor [...] admissions here. He has declined LTC or [facility] in past. On exam, Jay Jay is [...] transfer to hospital as per molst from ER Antonieta Brito NP [address], [address], [place], [address], [facility] 5 11:17:28 2024 text/h tml Patient [...] care and therapy Ayo Jeffrey MD [address], [address], [place], [address], [facility] 5 10:00:40 2024 text/h tml Pt is seen for an acute visit summary. Pt is a 78 yo male with pmh hx above sig for afib on xarelto presented to [facility] after being found on the floor [...] for his hip.note; pulmonology consult pending Discussed MELISAST and wishes to continue DNR/DNI and transfer to hospital as per zion from ER Antonieta Brito, DIONICIO [address], [address], [place], [address], [facility] 5 22:07:00 2024 text/h tml Pt is seen for an acute visit summary. Jay Jay is a 78 yo male with pmh hx above sig for afib on xarelto presented to [facility] after being found on the floor [...] stating he has not looked at any [facility] as recommended multiple times here and he continues to not follow up with this. dye house worker gave him a list again about the assisted living facilities and this PHYSIC[employer] IMPAIRED TEACHER also reiterated he would be able to [...] to hospital as per molst from LAVERNE Brito, DIONICIO [address], [address], [place], [address], [facility] 5 16:58:38 2024 text/h tml Pt is [...] sig for afib on xarelto presented to [facility] after being found on the floor [...] discharge to congregate housing on 09/25/2023 from [facility] here. An [facility] is recommended. While here at rehab: He [...] state he will do it this time .dye house worker gave him a list again about the assisted living facilities and this PHYSICALLY IMPAIRED TEACHER also reiterated he would be able to have socialization, increased services, and meals which could help. He states he financially is not sure how that would work and he is aware there are consultants at the facilities that could help him understand the finances if he makes an appointment.He also states he has a wheelchair at [facility] but has to pick it up. His old one was thrown out and was not working. An indepth discussion is had about his fall risk and xarelto and he is aware of risk and wishes to continue on the blood thinner at this time. On exam, he is motoring in the wheelchair in [facility]. He denies pain or anxiety and requests [...] transfer to hospital Antonieta Brito NP [address], [address], [place], [address], [facility] 5 09:46:34
--- OUTSIDE RECORDS SUMMARY | 2024-06-04 14:56 | XMS_ITS | Continuity of Care Document ---
Author Organization [facility], [facility] Address [address] [place] [address] Care Team Providers Care Machine Maintenance Technician Name Role Phone DIYA MARIN - 2ND [...] Time History of total hip arthroplast y [id number] Active 2019 Crista Florahomealfa patel, [facility] 0 12:56:15 Gastroesoph ageal reflux disease without esophagitis 461709221 Active 2019 Crista Ames null, [facility] 0 12:56:19 Mixed anxiety and depressive disorder 134688802 Active 2019 Crista Florahomealfa patel, [facility] 0 12:56:21 Essential hypertensio n 55880036 Active 2019 Crista Otf null, [facility] 0 12:56:23 History of malignant neoplasm of prostate 709604436 Active 2019 Crista Otf null, [facility] 0 12:56:26 COVID-19 554507509 Active 2019 Crista patel, [facility] 0 12:56:41 Anemia due to blood loss 228048063 Active 2019 Crista Vanessa null, [facility] 0 12:58:53 Reduction of dislocation of hip Active 2019 ROSANA VILLEDA NP [address], [place], [address], [facility] 0 08:57:29 Open wound 645733345 Active 2019 ROSANA VILLEDA NP [address] [facility], [address], [place], [address], [facility] 0 09:01:46 Pulmonary embolism 84464959 Active 2019 ROSANA VILLEDA NP [address] [facility], [address], [place], [address], [facility] 0 09:03:09 Fall Active 2019 ROSANA VILLEDA NP [address] [facility], [address], [place], [address], [facility] 0 10:40:41 Postoperati ve wound infection 54778899 Active 2019 Smitha Sparks MD [address] , [address], [place], [address], [facility] 0 00:12:33 Dislocation of hip joint prosthesis 001225379 Active 2019 Smitha Sparks MD [address] [facility], [address], [place], [address], [facility] 0 00:12:36 Insomnia 738792522 Active 2019 Smitha Sparks MD [address] [place] [address], [address], [place], [address], [facility] 0 00:21:52 Chronic back pain 885877635 Active 2019 Smitha Sparks MD [address] [facility], [address], [place], [address], [facility] 0 00:22:56 Gout 20788700 Active 2019 Priya Le MD [address], [address], [place], [address], [facility] 0 14:03:47 Minimal cognitive impairment 120801874 Active 2019 Smitha Sparks MD [address], [address], [place], [address], [facility] 0 16:44:57 Paroxysmal atrial fibrillatio n 132149144 Active 2022 ALEXIS DOLAN NP [address], [address], [place], [address], [facility] 3 15:10:55 History of pulmonary embolus 102484359 Active 2022 ALEXIS DOLAN NP [address], [address], [place], [address], [facility] 3 15:11:44 Delirium 1297470 Active 2022 ALEXIS DOLAN NP [address], [address], [place], [address], [facility] 3 15:27:16 Surgical incision wound of skin 774737573108 Active 2022 ROSANA VILLEDA NP [address], [address], [place], [address], [facility] 3 14:38:56 Abrasion 372189907 Active 2022 Antonieta Brito NP [address], [address], [place], [address], [facility] 3 10:17:57 Asthenia 57668186 Active 2022 ALEXIS DOLAN NP [address], [address], [place], [address], [facility] 3 16:13:31 Hernia of anterior abdominal wall 183822130 Active 2022 Antonieta Brito NP [address], [address], [place], [address], [facility] 3 16:23:51 Hypoxia 443287582 Active 2022 Antonieta Brito NP [address], [address], [place], [address], [facility] 3 11:25:28 Altered mental status 540555019 Active 2022 Antonieta Brito NP [address], [address], [place], [address], [facility] 3 11:31:49 Loose stool 601879805 Active 2022 Antonieta Brito NP [address], [address], [place], [address], [facility] 3 09:25:29 Headache 28327569 Active 2022 Antonieta Brito NP [address], [address], [place], [address], [facility] 3 09:40:59 Weight decreased 675505212 Active 2022 Antonieta Brito NP [address], [address], [place], [address], [facility] 3 09:42:25 Hemorrhoids 64330739 Active 2022 Antonieta Brito NP [address], [address], [place], [address], [facility] 3 08:25:10 Seasonal allergy 837177165 Active 2023 Antonieta Brito NP [address], [address], [place], [address], [facility] 4 12:19:01 Hearing loss 46604635 Active 2024 Ayo Jeffrey MD [address], [address], [place], [address], [facility] 5 09:57:58 Problem Notes None recorded. Medical Equipment None Reported. Allergies Allergen ID Allergen Name Allergen Category Reaction Reaction Severity Criticality Documentation Date Start Date Code Code System Note Provider Name and Address Organization Details Recorded Time Non-stero idal anti-infl ammatory agent (product) medicatio n Not available Not available Not available 11/17/2019 43265 005 SNOMED Not Available Not Available Not Available hydrochlo rothiazid e medicatio n Not available Not available Not available 11/17/2019 5487 RxNorm Not Available Not Available Not Available 51984 aspirin medicatio n Not available Not available Not available 11/17/2019 1191 RxNorm Not Available Not Available Not Available 89752 codeine medicatio n Not available Not available Not available 11/17/2019 2670 RxNorm Not Available Not Available Not Available 19376 Topamax medicatio n Not available Not available Not available 11/17/2019 23406 3 RxNorm Not Available Not Available Not Available 65467 Soma medicatio n Not available Not available Not available 11/17/2019 15412 2 RxNorm Not Available Not Available Not [...] Updated DateTime 5 182.88 cm 30 kg/m2 293619. 91 g 78 /min 18 /min 98.2 [degF] 96 % 96 % 157 mm[Hg] 64 mm[Hg] Antonieta Brito, DIONICIO [address] [facility], [facility] [address], [place], [address], [place] [facility] 5 09:17:40 Social History Question Answer Notes LastModified by Organizat ion Details LastModified Time Tobacco Smoking Status Former Smoker Quit 40 years ago Not Available [employer] 02/23/2020 03:13:21 Do You Have An Advance Directive? Yes Information not available 09/27/2022 What Is Your Level Of Alcohol Consumption? None [id number] Information not available 02/23/2020 How Much Tobacco Do You Chew? None [id number] Information not available 02/23/2020 What Is Your Code Status? DNR/DNI No Dialysis, No Artificial Nutrition [email or web address] Information not available 09/27/2022 Do You Or Have You Ever Used E-cigarettes Or Vape? Never Used Electronic Cigarettes [id number] Information not available 02/23/2020 Where Do You Live? Apartment Lives Alone [email or web address] Information not available 11/19/2023 Legal Guardian? No Informati on not available 09/28/2022 Do You Have A Medical Power Of Office Inspector? Yes Has HCP, Not Invoked Information not available 09/28/2022 What Was The Date Of Your Most Recent Tobacco Screening? 05/01/2024 [email or web address] Information not available 05/01/2024 Do You Have An Out Of Hospital DNR? Yes Information not available 09/28/2022 What Is Your Relationship Status? Information not available 09/28/2022 Do You Or Have You Ever Used Smokeless Tobacco? Never Used Smokeless Tobacco [id number] Information not available 02/23/2020 Do You Use Any Illicit Or Recreational Drugs? No [email or web address] Information not available 09/27/2022 Has Tobacco Cessation Counseling Been Provided? No N/a As Pt No Longer Smokes Information not available 09/28/2022 How Many Years Have You Smoked Tobacco? 15 [id number] Information not available 02/23/2020 Do You Or Have You Ever Used Any Other Forms Of Tobacco Or Nicotine? No [email or web address] Information not available 09/27/2022 Sex: Unknown Functional Status None recorded. Mental Status None recorded. Family History Relationship Description Onset Age of this Age Resolved Age Notes LastModified by Organization Details LastModified Time Mother Malignant tumor of breast [email or web address] Not available 2022 14:44:55 Mother Malignant tumor of lung Not available 2022 14:45:08 Notes:father: , dm, ARF, glaucoma Medical History No medical history recorded. Immunizations Vaccine Type Date Status Note Provider Nam e and Address Organization Details Recorded Time Influenza, adjuvanted, quadrivalent, PF 3 completed Page patel [facility] 06/14/2023 16:55:16 Influenza, adjuvanted, quadrivalent, PF 2 completed Page Dugan null, [facility] 06/14/2023 16:56:38 Influenza, split virus, quadrivalent, preservative 0 completed Ana Elliott null, [facility] 02/19/2020 11:13:50 SARS-COV-2 (COVID-19) vaccine, UNSPECIFIED 3 completed [facility]2023 10:17:34 Td(adult) unspecified formulation 8 completed [facility] 11/22/2023 15:52:58 Pneumococcal conjugate PCV 13 7 completed [facility] 11/22/2023 15:53:12 pneumococcal polysaccharide PPV23 4 completed [facility] 11/22/2023 15:53:30 pneumococcal polysaccharide PPV23 8 completed [facility] 11/22/2023 15:53:36 pneumococcal polysaccharide PPV23 0 completed Ileana Amaya [facility] 11/22/2023 15:53:43 SARS-COV-2 (COVID-19) vaccine, UNSPECIFIED 1 completed [facility] 11/22/2023 15:54:14 SARS-COV-2 (COVID-19) vaccine, UNSPECIFIED 1 completed [facility] 11/22/2023 15:54:22 SARS-COV-2 (COVID-19) vaccine, UNSPECIFIED 1 completed [facility] 11/22/2023 15:54:39 zoster, unspecified formulation 8 completed [facility] 11/22/2023 15:55:00 zoster, unspecified formulation 8 completed [facility] 11/22/2023 15:55:12 Past Encounters Encounter ID Performer Location Encounter Start Date Encounter Closed Date Diagnosis/Indication Diagnosis SNOMED-CT Code Diagnosis ICD10 Code Diagnosis Note [id number] Antonieta Brito NP [facility] [address] [place] [address] 05/01/2024 08:25:47 05/04/2024 13:28:46 Asthenia 66088315 R53.1 Weak at baseline, is now TTWB with walker from recent ER visitPT/OT eval and treatSafet y precaution s reviewed.s upportive carerec using orthodic as much as possible with leg shortening Adult fail ure to thrive syndrome 834628655 R62.7 Continuing to encourage pt to consider [...] decisions Mixed anxi ety and depressive disorder 571471790 F41.8 with hx of anxiety and depression with report of vivid dreams lately Do not recommend ativan with hx of misuse and decreased o2 sats in past conteffexo r 187.5 mg qd, Buspar 10 mg q am and 15 mg qhs, melatonin 10 mg qhs and hydroxyzin e 25 mg q 8 hrs prn.Monito r mood and behaviorss upportive prn Chronic back pain 226393 002 G89.29 Chronic pain to hip and [...] will left nsg knowmonito r Essential hypertension 60026479 I10 In good control.Co ntinueamlo dipine 2.5 mg po qdmetoprol ol 12.5 mg BID, hold for SBP<120 or pulse<60Mo nitor BP and labs as outpt. Paroxysmal atrial fibrillation 839244764 I48.0 Rate in good control on meds as above.Cont inueeliqui s 5 mg BID for AC.Monitor HR and bleeding risk as outpt. Gastroesop hageal reflux disease without esophagitis 338900976 K21.9 No current sxs.Contin uepantopra zole 40 mg qdMonitor GI sxs as outpt. History of pulmonary embolus 796728012 Z86.711 ContinueEl iquis 5 mg BIDMonitor 05/01/24 refer for pulmonolog y consult for report of sob with activity, intermitte nt o2 sats, etc...? sob related to panic/anxi ety or something more Anemia due to blood loss 919194597 D50.0 Continues to be stable.Mon itor cbc and bmp weekly, labs pending today Seasonal allergy 4819426 04 J30.2 No current sxs.Contin uecetirizi ne 10 mg qd.Monitor Overactive urinary bladder 422408669 N32.81 Continueta msulosin 0.4 mg qd and gemtesa 75 mg qdMonitor Fall R29.6 hx of recurrent falls on ac currently e is insistent on staying on ac and educated on risk and agreeable to plan to dc dc'd oxycodone and ativan likely contributi ng to fallssee above asthenia History of total hip arthroplasty 8614723794 06 Z96.649 hx of total left hip arthroplas tyfu with Dr. Stover as above [id number] Ayo Jeffrey MD [address] [address] 05/02/2024 09:37:26 05/04/2024 13:13:13 Recurrent falls 059704857 R29.6 see HPIrecurre nt falls and hospitaliz ations recentlyPT OT eval and treatmonit or fall risk and need for increased support in communityq uestion opioids and benzo contributi ng to fall risk no longer utilizingc ontinues on AC for a fib - aware of risk benefit History of total hip arthroplasty 3293955844 06 Z96.649 see above with hx of total left hip arthroplas ty and recurrent dislocatio nsf/u with ortho in placefollo w ortho recs and update with concerns Adult fail ure to thrive syndrome 620939808 R62.7 question need to transition to assisted living or LTC with multiple recent hospitaliz ationscurr ently not safe to return home Mixed anxi ety and depressive disorder 921987880 F41.8 stable on out patient medscontin uedpsych eval prnmonitor mood Essential hypertension 57062395 I10 norvasc 2.5 mg qdmetoprol ol 12.5 mg bidmonitor bp and need to titrate Paroxysmal atrial fibrillation 709025065 I48.0 eliquis 5 mg bidmetopro lol 12.5 mg bidmonitor for rate control Gastroesop hageal reflux disease without esophagitis 829353904 K21.9 protonix 40 mg qdmonitor sx relief History of pulmonary embolus 868009068 Z86.711 see abovemaint ained on eliquis Chronic re tention of urine 639421125 R33.8 maintained on flomax 0.4 mg qdmonitor for retentionu rology eval prn Chronic back pain 947629 002 G89.29 now off oxy with concern contributi ng to fall riskfollow ed by ortho Insomnia 157820108 G47.0 9 melatonin 10 mg qhsmonitor for effect Headache 06071669 R51.9 Hearing loss 11707936 H9 0.0 need to shoutconsi keaton need for audiology eval Minimal co gnitive impairment 890721717 G31.84 appears mild at baselinemo nitor cognitive function and need to invoke [id number] Antonieta Brito NP [address] [address] 05/08/2024 19:22:41 05/12/2024 09:33:23 Recurrent falls 544115801 R29.6 see HPIrecurre nt falls and hospitaliz ations recentlyPT OT eval and treatmonit or fall risk and need for increased support in communityq uestion opioids and benzo contributi ng to fall risk no longer utilizingc ontinues on AC for a fib - aware of risk benefit History of total hip arthroplasty 9897193773 06 Z96.649 see above with hx of total left hip arthroplas ty and recurrent dislocatio nsTTWBorth otic shoe recommende df/u with ortho in placefollo w ortho recs and update with concerns Paroxysmal atrial fibrillation 115975920 I48.0 eliquis 5 mg bidmetopro lol 12.5 mg bidmonitor for rate control Adult fail ure to thrive syndrome 880745950 R62.7 question need to transition to assisted living or LTC with multiple recent hospitaliz ationscurr ently not safe to return home and looking into [facility] Mixed anxi ety and depressive disorder 897750195 F41.8 stable on out patient medscontin uedpsych eval prnmonitor mood Essential hypertension 86705149 I10 bp stablenorv asc 2.5 mg qdmetoprol ol 12.5 mg bidmonitor bp and need to titrate Minimal co gnitive impairment 545769188 G31.84 appears mild at baselinemo nitor cognitive function and need to invoke Gastroesop hageal reflux disease without esophagitis 628581050 K21.9 protonix 40 mg qdmonitor sx relief Chronic re tention of urine 588087129 R33.8 contflomax 0.4 mg qdmonitor for retentionu rology eval prn Chronic back pain 199246 002 G89.29 off oxy with concern contributi ng to fall riskfollow ed by orthodo not rec restarting Insomnia 571288412 G47.0 9 melatonin 10 mg qhsmonitor for effect Asthenia 94086117 R53.1 Weak at baseline, is now TTWB [...] fallssee above asthenia History of pulmonary embolus 346674239 Z86.711 ContinueEl iquis 5 mg BIDMonitor 05/01/24 refer for pulmonolog y consult for report of sob with activity, intermitte nt o2 sats, etc...? sob related to panic/anxi ety or something more Overactive urinary bladder 849295428 N32.81 Continueta msulosin 0.4 mg qd and gemtesa 75 mg qdMonitor [id number] Antonieta Brito NP [address] [address] 05/15/2024 09:04:20 05/18/2024 16:34:25 History of total hip arthroplasty 9531654672 06 Z96.649 see above with hx of total left hip arthroplas ty and recurrent dislocatio nsTTWB per orders on release from hospitalor topher harper recommende df/u with ortho in place Dr Octavio reaves ortho recs and update with concerns Recurrent falls 99076778 2 R29.6 see HPI for notesrecur rent falls and hospitaliz ations recentlyPT OT eval and treatmonit or fall risk and need for increased support in communityq uestion opioids and benzo contributi ng to fall risk no longer utilizingc ontinues on AC for a fib - aware of risk benefit Paroxysmal atrial fibrillation 069438113 I48.0 conteliqui s 5 mg bidmetopro lol 12.5 mg bidmonitor for rate control Adult fail ure to thrive syndrome 715592466 R62.7 question need to transition to assisted living or LTC with multiple recent hospitaliz ationshe plans to return to independen t living and is his own person, however not recommende dAnother list of GROUP HOME is given to him and he reports he will visit a few Mixed anxi ety and depressive disorder 639951173 F41.8 stable on out patient medscontin uedpsych eval prnmonitor mood Essential hypertension 12844461 I10 bp stable, occ on the higher sidenorvas c 2.5 mg qdmetoprol ol 12.5 mg bidmonitor bp and need to titratewil l leave goal at SBP <150 as he is a high risk Minimal co gnitive impairment 991275812 G31.84 appears mild at baseline and able to make his own decisionsm onitor cognitive function and need to invoke Gastroesop hageal reflux disease without esophagitis 141448281 K21.9 protonix 40 mg qdmonitor sx relief Chronic re tention of urine 524249748 R33.8 contflomax 0.4 mg qdmonitor for retentionu rology eval prn Chronic back pain 040556 002 G89.29 off oxy with concern contributi ng to fall riskfollow ed by orthodo not rec restarting Insomnia 672534730 G47.0 9 melatonin 10 mg qhsmonitor for effect Asthenia 25731483 R53.1 Weak at baseline, is now TTWB [...] Name 05/15/2024 2 [place] [id number] Ottoniel Salas [id number] Ottoniel Salas 05/15/2024 1 [place] [employer] Ottoniel Bach Maritza [id number] Ottoniel Salas Notes Date Note Type Note Provider Name and Address Organization Details Recorded Time 05/15/2024 text/html Pt is seen for a n acute visit summary. Jay Jay is a 78 yo male with pmh hx above sig for afib on xarelto presented [place] [facility] after being found on the floor [...] stating he has not looked at any GROUP HOME as recommended multiple times here and he continues to not follow up with this. refuge worker gave him a list again about the assisted living facilities and this RELATIONSHIP MANAGER also reiterated he would be able to have socialization, increased services, and meals which could help. He also states he has a wheelchair at [facility] [place] but has to pick it up. His [...] per molst from LAVERNE Brito, DIONICIO [address] [facility], [address], [place], [address], [facility] 05/15/2024 16:58:38
--- OUTSIDE RECORDS SUMMARY | 2024-06-04 14:56 | XMS_ITS | Continuity of Care Document ---
Author Organization [facility], [facility] Address [address] [facility] [address] Care Team Providers Care Supplier Quality Name Role Phone DIYA MARIN - 2ND FLOOR OTHER [place] RENO Primary Care Provider [phone] Assessment Encounter Date Assessment Date Assessment LastModified [...] Time History of total hip arthroplast y 648744649614 Active 2019 Crista patel [facility] 0 12:56:15 Gastroesoph ageal reflux disease without esophagitis 024589759 Active 2019 Crista patel [facility] 0 12:56:19 Mixed anxiety and depressive disorder 582336560 Active 2019 Crista patel [facility] 0 12:56:21 Essential hypertensio n 57750271 Active 2019 Crista patel [facility] 0 12:56:23 History of malignant neoplasm of prostate 827245722 Active 2019 Crista patel [facility] 0 12:56:26 COVID-19 030360056 Active 2019 Crista Vanessa null, [facility] 0 12:56:41 Anemia due to blood loss 524305541 Active 2019 Crista Vanessa null, [facility] 0 12:58:53 Reduction of dislocation of hip Active 2019 ROSANA VILLEDA NP [address], [address], [place], [address], [facility] 0 08:57:29 Open wound 443695900 Active 2019 ROSANA VILLEDA NP [address], [address], [place], [address], [facility] 0 09:01:46 Pulmonary embolism 65337436 Active 2019 ROSANA VILLEDA NP [address], [address], [place], [address], [facility] 0 09:03:09 Fall Active 2019 ROSANA VILLEDA NP [address], [address], [place], [address], [facility] 0 10:40:41 Postoperati ve wound infection 30018838 Active 2019 Smitha Sparks MD [address], [address], [place], [address], [facility] 0 00:12:33 Dislocation of hip joint prosthesis 419420042 Active 2019 Smitha Sparks MD [address], [address], [place], [address], [facility] 0 00:12:36 Insomnia 661600703 Active 2019 Smitha Sparks MD [address], [address], [place], [address], [facility] 0 00:21:52 Chronic back pain 681850557 Active 2019 Smitha Sparks MD [address], [address], [place], [address], [facility] 0 00:22:56 Gout 74413190 Active 2019 Priya Le MD [address], [address], [place], [address], [facility] 0 14:03:47 Minimal cognitive impairment 080308309 Active 2019 Smitha Sparks MD [address], [address], [place], [address], [facility] 0 16:44:57 Paroxysmal atrial fibrillatio n 377696043 Active 2022 ALEXIS DOLAN NP [address], [address], [place], [address], [facility] 3 15:10:55 History of pulmonary embolus 359878246 Active 2022 ALEXIS DOLAN NP [address], [address], [place], [address], [facility] 3 15:11:44 Delirium 6176448 Active 2022 ALEXIS DOLAN NP [address], [address], [place], [address], [facility] 3 15:27:16 Surgical incision wound of skin 465218781249 Active 2022 ROSANA VILLEDA NP [address], [address], [place], [address], [facility] 3 14:38:56 Abrasion 906445624 Active 2022 Antonieta Brito NP [address], [address], [place], [address], [facility] 3 10:17:57 Asthenia 64364017 Active 2022 ALEXIS DOLAN NP [address], [address], [place], [address], [facility] 3 16:13:31 Hernia of anterior abdominal wall 111396027 Active 2022 Antonieta Brito NP [address], [address], [place], [address], [place] [facility] 3 16:23:51 Hypoxia 401004365 Active 2022 Antonieta Brito NP [address], [address], [place], [address], [facility] 3 11:25:28 Altered mental status 347191817 Active 2022 Antonieta Brito NP [address], [address], [place], [address], [facility] 3 11:31:49 Loose stool 027496088 Active 2022 Antonieta Brito NP [address], [address], [place], [address], [facility] 3 09:25:29 Headache 07934543 Active 2022 Antonieta Brito NP [address], [address], [place], [address], [facility] 3 09:40:59 Weight decreased 439263225 Active 2022 Antonieta Brito NP [address], [address], [place], [address], [facility] 3 09:42:25 Hemorrhoids 98027382 Active 2022 Antonieta Brito NP [address], [address], [place], [address], [facility] 3 08:25:10 Seasonal allergy 730442749 Active 2023 Antonieta Brito NP [address], [address], [place], [address], [facility] 4 12:19:01 Hearing loss 15171719 Active 2024 Ayo Jeffrey MD [address], [address], [place], [address], [facility] 5 09:57:58 Problem Notes None recorded. Medical Equipment None Reported. Allergies Allergen ID Allergen Name Allergen Category Reaction Reaction Severity Criticality Documentation Date Start Date Code Code System Note Provider Name and Address Organization Details Recorded Time 17791 Non-stero idal anti-infl ammatory agent (product) medicatio n Not available Not available Not available 11/17/2019 81541 005 SNOMED Not Available Not Available Not Available 39443 hydrochlo rothiazid e medicatio n Not available Not available Not available 11/17/2019 5487 RxNorm Not Available Not Available Not Available 61903 aspirin medicatio n Not available Not available Not available 11/17/2019 1191 RxNorm Not Available Not Available Not Available 68377 codeine medicatio n Not available Not available Not available 11/17/2019 2670 RxNorm Not Available Not Available Not Available 38027 Topamax medicatio n Not available Not available Not available 11/17/2019 74644 3 RxNorm Not Available Not Available Not Available Soma medicatio n Not available Not available Not available 11/17/2019 43396 2 RxNorm Not Available Not Available Not [...] Updated DateTime 5 182.88 cm 30 kg/m2 043747. 91 g 67 /min 18 /min 98.2 [degF] 97 % 97 % 132 mm[Hg] 74 mm[Hg] Antonieta Brito NP [address] [facility] [facility] [address], [place], [address] - [facility] 5 09:24:48 Social History Question Answer Notes LastModified by Organizat ion Details LastModified Time Tobacco Smoking Status Former Smoker Quit 40 years ago Not Available [employer] 02/23/2020 03:13:21 Do You Have An Advance Directive? Yes [email or web address] Information not available 09/27/2022 What Is Your Level Of Alcohol Consumption? None [id number] Information not available 02/23/2020 How Much Tobacco Do You Chew? None [id number] Information not available 02/23/2020 What Is Your Code Status? DNR/DNI No Dialysis, No Artificial Nutrition Information not available 09/27/2022 Do You Or Have You Ever Used E-cigarettes Or Vape? Never Used Electronic Cigarettes [id number] Information not available 02/23/2020 Where Do You Live? Apartment Lives Alone [email or web address] Information not available 11/19/2023 Legal Guardian? No Informati on not available 09/28/2022 Do You Have A Medical Power Of Food [employer]? Yes Has HCP, Not Invoked Information not available 09/28/2022 What Was The Date Of Your Most Recent Tobacco Screening? 05/01/2024 Information not available 05/01/2024 Do You Have An Out Of Hospital DNR? Yes Information not available 09/28/2022 What Is Your Relationship Status? Information not available 09/28/2022 Do You Or Have You Ever Used Smokeless Tobacco? Never Used Smokeless Tobacco [id number] Information not available 02/23/2020 Do You Use Any Illicit Or Recreational Drugs? No [email or web address] Information not available 09/27/2022 Has Tobacco Cessation Counseling Been Provided? No N/a As Pt No Longer Smokes Information not available 09/28/2022 How Many Years Have You Smoked Tobacco? 15 [id number] Information not available 02/23/2020 Do You Or Have You Ever Used Any Other Forms Of Tobacco Or Nicotine? No [email or web address] Information not available 09/27/2022 Sex: Unknown Functional [...] Influenza, adjuvanted, quadrivalent, PF 3 [facility] 16:55:16 Influenza, adjuvanted, quadrivalent, PF 2 [facility]/14[facility]2023 16:56:38 Influenza, split virus, quadrivalent, preservative 0 completed Ana Elliott [facility] 02/19/2020 11:13:50 SARS-COV-2 (COVID-19) vaccine, UNSPECIFIED 3 completed Ileana Amaya [facility] 11/19/2023 10:17:34 Td(adult) unspecified formulation 8 completed Ileana Amaya [facility] 11/22/2023 15:52:58 Pneumococcal conjugate PCV 13 7 completed Ileana Amaya [facility] 11/22/2023 15:53:12 pneumococcal polysaccharide PPV23 4 completed Ileana Amaya [facility] 11/22/2023 15:53:30 pneumococcal polysaccharide PPV23 8 completed Ileana Amaya [facility] 11/22/2023 15:53:36 pneumococcal polysaccharide PPV23 0 completed Ileana Amaya [facility] 11/22/2023 15:53:43 SARS-COV-2 (COVID-19) vaccine, UNSPECIFIED 1 completed Ileana Amaya [facility] 11/22/2023 15:54:14 SARS-COV-2 (COVID-19) vaccine, UNSPECIFIED 1 completed [facility]/2023 15:54:22 SARS-COV-2 (COVID-19) vaccine, UNSPECIFIED 1 completed Ileana Amaya [facility] 11/22/2023 15:54:39 zoster, unspecified formulation 8 completed Ileana Amaya [facility] 11/22/2023 15:55:00 zoster, unspecified formulation 8 completed Ileanamonroe Amaya [facility] 11/22/2023 15:55:12 Past Encounters Encounter ID Performer Location Encounter Start Date Encounter Closed Date Diagnosis/Indication Diagnosis SNOMED-CT Code Diagnosis ICD10 Code Diagnosis Note [id number] Antonieta Brito NP [facility] [address] [place] [address] 05/01/2024 08:25:47 05/04/2024 13:28:46 Asthenia 25671739 R53.1 Weak at baseline, is now TTWB with walker from recent ER visitPT/OT eval and treatSafet y precaution s reviewed.s upportive carerec using orthodic as much as possible with leg shortening Adult fail ure to thrive syndrome 798642979 R62.7 Continuing to encourage pt to consider [...] decisions Mixed anxi ety and depressive disorder 681580826 F41.8 with hx of anxiety and depression with report of vivid dreams lately Do not recommend ativan with hx of misuse and decreased o2 sats in past conteffexo r 187.5 mg qd, Buspar 10 mg q am and 15 mg qhs, melatonin 10 mg qhs and hydroxyzin e 25 mg q 8 hrs prn.Monito r mood and behaviorss upportive prn Chronic back pain 663385 002 G89.29 Chronic pain to hip and [...] will left nsg knowmonito r Essential hypertension 59934906 I10 In good control.Co ntinueamlo dipine 2.5 mg po qdmetoprol ol 12.5 mg BID, hold for SBP<120 or pulse<60Mo nitor BP and labs as outpt. Paroxysmal atrial fibrillation 368929793 I48.0 Rate in good control on meds as above.Cont inueeliqui s 5 mg BID for AC.Monitor HR and bleeding risk as outpt. Gastroesop hageal reflux disease without esophagitis 990271603 K21.9 No current sxs.Contin uepantopra zole 40 mg qdMonitor GI sxs as outpt. History of pulmonary embolus 737612990 Z86.711 ContinueEl iquis 5 mg BIDMonitor 05/01/24 refer for pulmonolog y consult for report of sob with activity, intermitte nt o2 sats, etc...? sob related to panic/anxi ety or something more Anemia due to blood loss 698819007 D50.0 Continues to be stable.Mon itor cbc and bmp weekly, labs pending today Seasonal allergy 2867737 04 J30.2 No current sxs.Contin uecetirizi ne 10 mg qd.Monitor Overactive urinary bladder 389782971 N32.81 Continueta msulosin 0.4 mg qd and gemtesa 75 mg qdMonitor Fall R29.6 hx of recurrent falls on ac currentlyh e is insistent on staying on ac and educated on risk and agreeable to plan to dc dc'd oxycodone and ativan likely contributi ng to fallssee above asthenia History of total hip arthroplasty 0644611156 06 Z96.649 hx of total left hip arthroplas tyfu with Dr. Stover as above [id number] Ayo Jeffrey MD [address] [address] 05/02/2024 09:37:26 05/04/2024 13:13:13 Recurrent falls 735745691 R29.6 see HPIrecurre nt falls and hospitaliz ations recentlyPT OT eval and treatmonit or fall risk and need for increased support in communityq uestion opioids and benzo contributi ng to fall risk no longer utilizingc ontinues on AC for a fib - aware of risk benefit History of total hip arthroplasty 3490207414 06 Z96.649 see above with hx of total left hip arthroplas ty and recurrent dislocatio nsf/u with ortho in placefollo w ortho recs and update with concerns Adult fail ure to thrive syndrome 792684323 R62.7 question need to transition to assisted living or LTC with multiple recent hospitaliz ationscurr ently not safe to return home Mixed anxi ety and depressive disorder 991544093 F41.8 stable on out patient medscontin uedpsych eval prnmonitor mood Essential hypertension 08588795 I10 norvasc 2.5 mg qdmetoprol ol 12.5 mg bidmonitor bp and need to titrate Paroxysmal atrial fibrillation 092826077 I48.0 eliquis 5 mg bidmetopro lol 12.5 mg bidmonitor for rate control Gastroesop hageal reflux disease without esophagitis 035618426 K21.9 protonix 40 mg qdmonitor sx relief History of pulmonary embolus 877375209 Z86.711 see abovemaint ained on eliquis Chronic re tention of urine 514215301 R33.8 maintained on flomax 0.4 mg qdmonitor for retentionu rology eval prn Chronic back pain 898058 002 G89.29 now off oxy with concern contributi ng to fall riskfollow ed by ortho Insomnia 295692863 G47.0 9 melatonin 10 mg qhsmonitor for effect Headache 79181475 R51.9 Hearing loss 68963868 H9 0.0 need to shoutconsi keaton need for audiology eval Minimal co gnitive impairment 407707762 G31.84 appears mild at baselinemo nitor cognitive function and need to invoke [id number] Antonieta Brito NP [facility] [address] [address] 05/08/2024 19:22:41 05/12/2024 09:33:23 Recurrent falls 695395790 R29.6 see HPIrecurre nt falls and hospitaliz ations recentlyPT OT eval and treatmonit or fall risk and need for increased support in communityq uestion opioids and benzo contributi ng to fall risk no longer utilizingc ontinues on AC for a fib - aware of risk benefit History of total hip arthroplasty 2529501122 06 Z96.649 see above with hx of total left hip arthroplas ty and recurrent dislocatio nsTTWBorth otic shoe recommende df/u with ortho in placefollo w ortho recs and update with concerns Paroxysmal atrial fibrillation 150144058 I48.0 eliquis 5 mg bidmetopro lol 12.5 mg bidmonitor for rate control Adult fail ure to thrive syndrome 389885390 R62.7 question need to transition to assisted living or LTC with multiple recent hospitaliz ationscurr ently not safe to return home and looking into [facility] Mixed anxi ety and depressive disorder 704854673 F41.8 stable on out patient medscontin uedpsych eval prnmonitor mood Essential hypertension 58076405 I10 bp stablenorv asc 2.5 mg qdmetoprol ol 12.5 mg bidmonitor bp and need to titrate Minimal co gnitive impairment 446983223 G31.84 appears mild at baselinemo nitor cognitive function and need to invoke Gastroesop hageal reflux disease without esophagitis 857735962 K21.9 protonix 40 mg qdmonitor sx relief Chronic re tention of urine 107403890 R33.8 contflomax 0.4 mg qdmonitor for retentionu rology eval prn Chronic back pain 814507 002 G89.29 off oxy with concern contributi ng to fall riskfollow ed by orthodo not rec restarting Insomnia 795671553 G47.0 9 melatonin 10 mg qhsmonitor for effect Asthenia 65756403 R53.1 Weak at baseline, is now TTWB [...] fallssee above asthenia History of pulmonary embolus 490619885 Z86.711 ContinueEl iquis 5 mg BIDMonitor 05/01/24 refer for pulmonolog y consult for report of sob with activity, intermitte nt o2 sats, etc...? sob related to panic/anxi ety or something more Overactive urinary bladder 195827963 N32.81 Continueta msulosin 0.4 mg qd and gemtesa 75 mg qdMonitor [id number] Antonieta Brito NP [address] [address] 05/15/2024 09:04:20 05/18/2024 16:34:25 History of total hip arthroplasty 1670962636 06 Z96.649 see above with hx of total left hip arthroplas ty and recurrent dislocatio nsTTWB per orders on release from hospitalor topher harper recommende df/u with ortho in place Dr Octavio reaves ortho recs and update with concerns Recurrent falls 46178128 2 R29.6 see HPI for notesrecur rent falls and hospitaliz ations recentlyPT OT eval and treatmonit or fall risk and need for increased support in communityq uestion opioids and benzo contributi ng to fall risk no longer utilizingc ontinues on AC for a fib - aware of risk benefit Paroxysmal atrial fibrillation 124466998 I48.0 conteliqui s 5 mg bidmetopro lol 12.5 mg bidmonitor for rate control Adult fail ure to thrive syndrome 428082761 R62.7 question need to transition to assisted living or LTC with multiple recent hospitaliz ationshe plans to return to independen t living and is his own person, however not recommende dAnother list of [facility] is given to him and he reports he will visit a few Mixed anxi ety and depressive disorder 239013323 F41.8 stable on out patient medscontin uedpsych eval prnmonitor mood Essential hypertension 92131053 I10 bp stable, occ on the higher sidenorvas c 2.5 mg qdmetoprol ol 12.5 mg bidmonitor bp and need to titratewil l leave goal at SBP <150 as he is a high risk Minimal co gnitive impairment 721901034 G31.84 appears mild at baseline and able to make his own decisionsm onitor cognitive function and need to invoke Gastroesop hageal reflux disease without esophagitis 762893485 K21.9 protonix 40 mg qdmonitor sx relief Chronic re tention of urine 128395472 R33.8 contflomax 0.4 mg qdmonitor for retentionu rology eval prn Chronic back pain 644473 002 G89.29 off oxy with concern contributi ng to fall riskfollow ed by orthodo not rec restarting Insomnia 783662897 G47.0 9 melatonin 10 mg qhsmonitor for effect Asthenia 62510972 R53.1 Weak at baseline, is now TTWB with walker from recent ER visitPT/OT eval and treatSafet y precaution s reviewed.s upportive carerec using orthodic as much as possible with leg shortening [id number] Antonieta Brito NP [facility] [address] [place] [address] 05/18/2024 08:51:57 05/20/2024 10:57:15 History of total hip arthroplasty 5282377630 06 Z96.649 see above with hx of total left hip arthroplas ty and recurrent dislocatio nsno surgical interventi on at this timeTTWB per orders on release from hospitalor topher wahle recommende df/u with ortho in place Dr Stover outpt Recurrent falls 93383920 2 R29.6 see HPI for notesrecur rent falls and hospitaliz ations recentlymo nitor fall risk and need for increased support in communityq uestion opioids and benzo contributi ng to fall risk no longer utilizingc ontinue on AC for a fib - aware of risk benefit and wishes to continuefu with pcp outpt Paroxysmal atrial fibrillation 989353900 I48.0 conteliqui s 5 mg bidmetopro lol 12.5 mg bidmonitor for rate control outpt Adult fail ure to thrive syndrome 999352983 R62.7 question need to transition to assisted [...] to thrive in independen t living or JAIL with pcp outpt Mixed anxi ety and depressive disorder 611371700 F41.8 stable on out patient medscontin uedpsych eval prnmonitor mood outptNO longer on ativan and oxycodone and doing well off these meds as they seem to contribute to falls Essential hypertension 25959294 I10 bp stablecont norvasc 2.5 mg qdmetoprol ol 12.5 mg bidmonitor bp and need to titrate outpt with pcpwill leave goal at SBP <150 as he is a high risk Minimal co gnitive impairment 926876189 G31.84 appears mild at baseline and able to make his own decisionsm onitor cognitive function and need to invoke outpt with pcp Gastroesop hageal reflux disease without esophagitis 445651604 K21.9 protonix 40 mg qdmonitor outpt with pcp Chronic re tention of urine 820130689 R33.8 stable herecontfl omax 0.4 mg qdmonitor for retention outpt with pcpurology eval prn outpt Chronic back pain 236610 002 G89.29 off oxy with concern it was contributi ng to fall riskfollow ed by ortho outptfollo wed by pain management outptdo not rec restarting Insomnia 350939247 G47.0 9 melatonin 10 mg qhsmonitor for effect outpt Asthenia 74699328 R53.1 Weak at baseline, is now TTWB [...] Name 05/18/2024 2 [place] [id number] Ottoniel Salas [id number] Ottoniel Salas 05/18/2024 1 [place] [employer] Ottoniel Salas [id number] Ottoniel Salas Notes Date Note Type [...] sig for afib on xarelto presented to [facility] after being found on [...] discharge to congregate housing on 09/25/[address] [facility] here. An JAIL is recommended. 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 He states he financially is not sure how that would work and he is aware there are consultants at the facilities that could help him understand the finances if he makes an appointment.He also states he has a wheelchair at [facility] but has to pick it up. His old one was thrown out and was not working. An indepth discussion is had about his fall risk and xarelto and he is aware of risk and wishes to continue on the blood thinner at this time. On exam, he is motoring in the wheelchair in [employer]. He denies pain or anxiety and requests [...] transfer to hospital Antonieta Brito NP [address] [facility], [address], [place], [address], [facility] 05/18/2024 09:46:34
--- NOTE | 2024-06-04 15:06 | MHC.CM.PN ---
CHRISTINE 06/04/24 Patient transferred from ED. He had been an ED boarder since admission 05/21/24. Patient has a [employer] application pending. We are requesting a MEDSEEK pending admit to SNF for LTC. Patient requires assist with ADLs. A failed hip surgery has left him WC bound. DP LTC in a SNF [facility]st choice. He will transport via BLS.
[2024-06-04] MEDS: busPIRone HCl 5 MG TABLET 15 MG PO (20:21)
[2024-06-04] MEDS: Divalproex Sodium 500 MG TABLET.DR PO (20:22)
[2024-06-04] MEDS: Acetaminophen 325 MG TABLET 650 MG PO (20:22)
[2024-06-04] MEDS: traMADoL HCL 50 MG TABLET PO (20:47)
[2024-06-04] MEDS: Morphine Sulfate 2 MG/ML CARTRIDGE IVPUSH (22:11)
--- NOTE | 2024-06-05 02:29 | PC.NURSE ---
Around 1949 on 06/04/24 pt c/o 8/10 right shoulder pain. Prn tylenol given at 2021 with a hot pack with no relief. [place] text to Dr. Valdovinos and 50 mg of tramadol ordered and administered at 2046 also with no relief. Another tiger text sent to Dr. Valdovinos regarding pain management and he ordered 2 mg of IV morphine. IV placed and morphine given at 2210 with good effect. Will continue to monitor.
[2024-06-05 04:00] VITALS: BP 107/60; PULSE 87; RESP 18; TEMP 36; O2SAT 96
[2024-06-05] MEDS: Omeprazole 20 MG CAPSULE.DR PO (05:39)
[2024-06-05 07:25] VITALS: BP 113/60; PULSE 61; RESP 18; TEMP 36.9; O2SAT 98
[2024-06-05] MEDS: amLODIPine Besylate 2.5 MG TABLET PO (07:50)
[2024-06-05] MEDS: Gabapentin 100 MG CAPSULE 200 MG PO ×2 (07:50→20:00)
[2024-06-05] MEDS: Metoprolol Tartrate 12.5 MG HALFTAB PO ×2 (07:51→19:59)
[2024-06-05] MEDS: Venlafaxine HCl ER 37.5 MG CAP.ER.24H PO (07:51)
[2024-06-05] MEDS: Apixaban 5 MG TABLET PO ×2 (07:52→20:00)
[2024-06-05] MEDS: busPIRone HCl 10 MG TABLET PO (07:52)
[2024-06-05] MEDS: Tamsulosin HCL 0.4 MG CAPSULE PO (07:53)
[2024-06-05] MEDS: Venlafaxine HCl ER 150 MG CAP.ER.24H PO (07:53)
[2024-06-05] MEDS: 0.9 % Sodium Chloride Flush 3 ML SYRINGE IVFLUSH ×3 (08:32→20:00)
--- NOTE | 2024-06-05 09:50 | HO.PM.IMPN ---
Subjective Subjective Date of Service: 06/05/24 Interval History: the patient was seen and evaluated this morning Laying in bed, feels comfortable No reported other overnight events. Review of Systems Review of Systems: Yes all other systems are reviewed and are negative Physical Exam Vital Signs: Vital Signs: Last Vital Signs Temp 98.5 F 06/05/24 07:25 Pulse 61 06/05/24 07:25 Resp 18 06/05/24 07:25 BP 113/60 06/05/24 07:25 Pulse Ox 98 06/05/24 07:25 O2 Del Method Room Air 06/05/24 07:25 O2 Flow Rate 3 06/05/24 04:00 BMI result Body Mass Index 31.0 Const: Other: Constitutional : interactive, not in distress Cardiovascular : no JVP, no lower extremity edema Respiratory : bilateral chest movement, not in resp distress Gastrointestinal: soft, lax, Non tender Skin : Warm, Dry Neurological : Alert & oriented to self and place, No focal deficit Objective Data Active Medications Acetaminophen (Acetaminophen 325 Mg Tablet) 650 mg PO Q6H PRN PRN Reason: Pain, Mild 1-3,fever,headache Last Admin: 06/04/24 20:22 Dose: 650 mg Documented By: RYAN Amlodipine Besylate (Amlodipine Besylate 2.5 Mg Tablet) 2.5 mg PO DAILY [facility]; Protocol Last Admin: 06/05/24 07:50 Dose: 2.5 mg Documented By: JAIME Apixaban (Apixaban 5 Mg Tablet) 5 mg PO BID [facility] Last Admin: 06/05/24 07:52 Dose: 5 mg Documented By: JAIME Buspirone HCl (Buspirone Hcl 10 Mg Tablet) 10 mg PO DAILY [facility] Last Admin: 06/05/24 07:52 Dose: 10 mg Documented By: JAIME Buspirone HCl (Buspirone Hcl 5 Mg Tablet) 15 mg PO BEDTIME [facility] Last Admin: 06/04/24 20:21 Dose: 15 mg Documented By: RYAN Calcium Carbonate (Calcium Carbonate 750 Mg Tab.Chew) 750 mg PO Q4H PRN PRN Reason: Heartburn Divalproex Sodium (Divalproex Sodium 500 Mg Tablet.Dr) 500 mg PO BEDTIME [facility] Last Admin: 06/04/24 20:22 Dose: 500 mg Documented By: RYAN Gabapentin (Gabapentin 100 Mg Capsule) 200 mg PO BID [facility] Last Admin: 06/05/24 07:50 Dose: 200 mg Documented By: JAIME Hydroxyzine HCl (Hydroxyzine Hcl 25 Mg Tablet) 25 mg PO Q8H PRN PRN Reason: Anxiety Loperamide HCl (Loperamide Hcl 2 Mg Capsule) 2 mg PO DAILY PRN PRN Reason: Diarrhea Magnesium Hydroxide (Milk Of Magnesia 30 Ml Oral.Susp) 30 ml PO DAILY PRN PRN Reason: Constipation Melatonin (Melatonin 3 Mg Tablet) 6 mg PO BEDTIME PRN PRN Reason: Insomnia Last Admin: 06/04/24 20:22 Dose: 6 mg Documented By: RYAN Metoprolol Tartrate (Metoprolol Tartrate 12.5 Mg Halftab) 12.5 mg PO BID [facility]; Protocol Last Admin: 06/05/24 07:51 Dose: 12.5 mg Documented By: JAIME Omeprazole (Omeprazole 20 Mg Capsule.Dr) 20 mg PO DAILY@0630 [facility] Last Admin: 06/05/24 05:39 Dose: 20 mg Documented By: RYAN Ondansetron HCl (Ondansetron Hcl 4 Mg/2 Ml Vial) 4 mg IVPUSH Q8H PRN PRN Reason: Nausea and Vomiting Senna (Sennosides 8.6 Mg Tablet) 17.2 mg PO BEDTIME PRN PRN Reason: constipation Simethicone (Simethicone 80 Mg Tab.Chew) 80 mg PO QIDWMHS PRN PRN Reason: Gas Sodium Chloride (0.9 % Sodium Chloride Flush 3 Ml Syringe) 3 ml IVFLUSH QSHIFT [facility] Last Admin: 06/05/24 08:32 Dose: 3 ml Documented By: JAIME Tamsulosin HCl (Tamsulosin Hcl 0.4 Mg Capsule) 0.4 mg PO DAILY [facility] Last Admin: 06/05/24 07:53 Dose: 0.4 mg Documented By: JAIME Venlafaxine HCl (Venlafaxine Hcl Er 37.5 Mg Cap.Er.24h) 37.5 mg PO DAILY [facility] Last Admin: 06/05/24 07:51 Dose: 37.5 mg Documented By: JAIME Venlafaxine HCl (Venlafaxine Hcl Er 150 Mg Cap.Er.24h) 150 mg PO DAILY [facility] Last Admin: 06/05/24 07:53 Dose: 150 mg Documented By: JAIME Assessment and Plan (1) Chronic atrial fibrillation: Status: Acute (2) Cognitive impairment: Status: Acute Plan 78-year-old male with a history of chronic atrial fibrillation, hypertension, cognitive impairment and GERD presents initially from home with worsening shortness of breath and anxiety. 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 He was recently discharged from [facility] and after 2 days returned to the hospital. unable to take care of himself. 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 Quality Stroke Does the patient have a stroke diagnosis?: No VTE Prior VTE?: Yes VTE Risk Level:: Medical - moderate - high VTE Device Contraindication: Treatment Not Indicated VTE Drug Contraindication: N/A - Med Ordered
[2024-06-05] MEDS: Morphine Sulfate Immed Release 15 MG TABLET PO ×2 (10:54→19:59)
--- NOTE | 2024-06-05 15:57 | MHC.CM.PN ---
Additional referrals have been sent for LTC. [facility] has not responded at all. DP LTC via [facility] pending.
[2024-06-05 16:00] VITALS: BP 98/56; PULSE 66; RESP 18; TEMP 36.2; O2SAT 98
[2024-06-05 19:52] VITALS: BP 114/80; PULSE 73; RESP 18; TEMP 37.1; O2SAT 96
[2024-06-05] MEDS: busPIRone HCl 5 MG TABLET 15 MG PO (19:59)
[2024-06-05] MEDS: Melatonin 3 MG TABLET 6 MG PO (20:00)
[2024-06-05] MEDS: Divalproex Sodium 500 MG TABLET.DR PO (20:00)
[2024-06-05 23:46] VITALS: BP 106/62; PULSE 74; RESP 16; TEMP 36.1; O2SAT 97
[2024-06-06] MEDS: Morphine Sulfate Immed Release 15 MG TABLET PO ×2 (04:26→17:20)
[2024-06-06] MEDS: Omeprazole 20 MG CAPSULE.DR PO (05:24)
[2024-06-06 07:42] VITALS: BP 106/58; PULSE 58; RESP 12; TEMP 36.4; O2SAT 99
[2024-06-06] MEDS: Tamsulosin HCL 0.4 MG CAPSULE PO (09:39)
[2024-06-06] MEDS: Metoprolol Tartrate 12.5 MG HALFTAB PO ×2 (09:39→21:05)
[2024-06-06] MEDS: Venlafaxine HCl ER 37.5 MG CAP.ER.24H PO (09:39)
[2024-06-06] MEDS: hydrOXYzine HCL 25 MG TABLET PO ×2 (09:39→21:05)
[2024-06-06] MEDS: Gabapentin 100 MG CAPSULE 200 MG PO ×2 (09:39→21:04)
[2024-06-06] MEDS: amLODIPine Besylate 2.5 MG TABLET PO (09:39)
[2024-06-06] MEDS: busPIRone HCl 10 MG TABLET PO (09:39)
[2024-06-06] MEDS: Apixaban 5 MG TABLET PO ×2 (09:39→21:05)
[2024-06-06] MEDS: Venlafaxine HCl ER 150 MG CAP.ER.24H PO (09:39)
[2024-06-06] MEDS: 0.9 % Sodium Chloride Flush 3 ML SYRINGE IVFLUSH ×2 (09:41→21:06)
--- NOTE | 2024-06-06 12:01 | P.PNIM_ITS ---
Subjective Subjective Date of Service: 06/06/24 Interval History: the patient was seen and evaluated feels comfortable No reported other overnight events. Review of Systems Review of Systems: Yes all other systems are reviewed and are negative Physical Exam Vital Signs: Vital Signs: Last Vital Signs Temp 97.5 F 06/06/24 07:42 Pulse 58 06/06/24 07:42 Resp 12 06/06/24 07:42 BP 106/58 L 06/06/24 07:42 Pulse Ox 99 06/06/24 07:42 O2 Del Method Room Air 06/06/24 07:42 O2 Flow Rate 3 06/05/24 04:00 BMI result Body Mass Index 31.0 Const: Other: Constitutional : interactive, not in distress Cardiovascular : no JVP, no lower extremity edema Respiratory : bilateral chest movement, not in resp distress Gastrointestinal: soft, lax, Non tender Skin : Warm, Dry Neurological : Alert & oriented to self and place, No focal deficit Objective Data Active Medications Acetaminophen (Acetaminophen 325 Mg Tablet) 650 mg PO Q6H PRN PRN Reason: Pain, Mild 1-3,fever,headache Last Admin: 06/04/24 20:22 Dose: 650 mg Documented By: RYAN Amlodipine Besylate (Amlodipine Besylate 2.5 Mg Tablet) 2.5 mg PO DAILY [facility]; Protocol Last Admin: 06/06/24 09:39 Dose: 2.5 mg Documented By: CLAYTON Apixaban (Apixaban 5 Mg Tablet) 5 mg PO BID [facility] Last Admin: 06/06/24 09:39 Dose: 5 mg Documented By: CLAYTON Buspirone HCl (Buspirone Hcl 10 Mg Tablet) 10 mg PO DAILY [facility] Last Admin: 06/06/24 09:39 Dose: 10 mg Documented By: CLAYTON Buspirone HCl (Buspirone Hcl 5 Mg Tablet) 15 mg PO BEDTIME [facility] Last Admin: 06/05/24 19:59 Dose: 15 mg Documented By: RAVEN Calcium Carbonate (Calcium Carbonate 750 Mg Tab.Chew) 750 mg PO Q4H PRN PRN Reason: Heartburn Divalproex Sodium (Divalproex Sodium 500 Mg Tablet.Dr) 500 mg PO BEDTIME [facility] Last Admin: 06/05/24 20:00 Dose: 500 mg Documented By: RAVEN Gabapentin (Gabapentin 100 Mg Capsule) 200 mg PO BID [facility] Last Admin: 06/06/24 09:39 Dose: 200 mg Documented By: CLAYTON Hydroxyzine HCl (Hydroxyzine Hcl 25 Mg Tablet) 25 mg PO Q8H PRN PRN Reason: Anxiety Last Admin: 06/06/24 09:39 Dose: 25 mg Documented By: CLAYTON Ibuprofen (Ibuprofen 400 Mg Tablet) 400 mg PO TIDWM PRN PRN Reason: Pain, Moderate(Pain Scale 4-6) Loperamide HCl (Loperamide Hcl 2 Mg Capsule) 2 mg PO DAILY PRN PRN Reason: Diarrhea Magnesium Hydroxide (Milk Of Magnesia 30 Ml Oral.Susp) 30 ml PO DAILY PRN PRN Reason: Constipation Melatonin (Melatonin 3 Mg Tablet) 6 mg PO BEDTIME PRN PRN Reason: Insomnia Last Admin: 06/05/24 20:00 Dose: 6 mg Documented By: RAVEN Metoprolol Tartrate (Metoprolol Tartrate 12.5 Mg Halftab) 12.5 mg PO BID [facility]; Protocol Last Admin: 06/06/24 09:39 Dose: 12.5 mg Documented By: CLAYTON Morphine Sulfate (Morphine Sulfate Immed Release 15 Mg Tablet) 15 mg PO Q6H PRN PRN Reason: Pain, Severe (Pain Scale 7-10) Last Admin: 06/06/24 04:26 Dose: 15 mg Documented By: RAVEN Omeprazole (Omeprazole 20 Mg Capsule.Dr) 20 mg PO DAILY@0630 [facility] Last Admin: 06/06/24 05:24 Dose: 20 mg Documented By: RAVEN Ondansetron HCl (Ondansetron Hcl 4 Mg/2 Ml Vial) 4 mg IVPUSH Q8H PRN PRN Reason: Nausea and Vomiting Senna (Sennosides 8.6 Mg Tablet) 17.2 mg PO BEDTIME PRN PRN Reason: constipation Simethicone (Simethicone 80 Mg Tab.Chew) 80 mg PO QIDWMHS PRN PRN Reason: Gas Sodium Chloride (0.9 % Sodium Chloride Flush 3 Ml Syringe) 3 ml IVFLUSH QSHIFT [facility] Last Admin: 06/06/24 09:41 Dose: 3 ml Documented By: CLAYTON Tamsulosin HCl (Tamsulosin Hcl 0.4 Mg Capsule) 0.4 mg PO DAILY [facility] Last Admin: 06/06/24 09:39 Dose: 0.4 mg Documented By: CLAYTON Venlafaxine HCl (Venlafaxine Hcl Er 37.5 Mg Cap.Er.24h) 37.5 mg PO DAILY [facility] Last Admin: 06/06/24 09:39 Dose: 37.5 mg Documented By: CLAYTON Venlafaxine HCl (Venlafaxine Hcl Er 150 Mg Cap.Er.24h) 150 mg PO DAILY [facility] Last Admin: 06/06/24 09:39 Dose: 150 mg Documented By: CLAYTON Assessment and Plan (1) Cognitive impairment: Status: Acute Plan 78-year-old male with a history of chronic atrial fibrillation, hypertension, cognitive impairment and GERD presents initially from home with worsening shortness of breath and anxiety. 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 He was recently discharged from [facility] and after 2 days returned to the hospital. unable to take care of himself. # Chronic atrial fibrillation acceptable rate control on current therapies continue Eliquis # Cognitive impairment stable on Buspar and Valproic acid with PRN Atarax # Hypertension Amlodipine and Metoprolol DNR DNI Eliquis will need inpatient stay pending long-term facility acceptance. Quality Stroke Does the patient have a stroke diagnosis?: No VTE Prior VTE?: Yes VTE Risk Level:: Medical - moderate - high VTE Device Contraindication: Treatment Not Indicated VTE Drug Contraindication: N/A - Med Ordered
[2024-06-06 15:41] VITALS: BP 108/59; PULSE 77; RESP 14; TEMP 36.3; O2SAT 96
[2024-06-06 19:27] VITALS: BP 106/60; PULSE 75; RESP 16; TEMP 36.2; O2SAT 99
[2024-06-06] MEDS: busPIRone HCl 5 MG TABLET 15 MG PO (21:04)
[2024-06-06] MEDS: Melatonin 3 MG TABLET 6 MG PO (21:05)
[2024-06-06] MEDS: Divalproex Sodium 500 MG TABLET.DR PO (21:05)
[2024-06-07] VITALS: BP 110/51; PULSE 65; RESP 16; TEMP 36.3; O2SAT 94
[2024-06-07] MEDS: Omeprazole 20 MG CAPSULE.DR PO (05:25)
[2024-06-07 07:20] VITALS: BP 121/72; PULSE 58; RESP 18; TEMP 36.4; O2SAT 96
[2024-06-07] MEDS: Venlafaxine HCl ER 37.5 MG CAP.ER.24H PO (08:25)
[2024-06-07] MEDS: Gabapentin 100 MG CAPSULE 200 MG PO ×2 (08:25→19:48)
[2024-06-07] MEDS: amLODIPine Besylate 2.5 MG TABLET PO (08:25)
[2024-06-07] MEDS: Venlafaxine HCl ER 150 MG CAP.ER.24H PO (08:25)
[2024-06-07] MEDS: Tamsulosin HCL 0.4 MG CAPSULE PO (08:25)
[2024-06-07] MEDS: busPIRone HCl 10 MG TABLET PO (08:25)
[2024-06-07] MEDS: Metoprolol Tartrate 12.5 MG HALFTAB PO ×2 (08:25→19:49)
[2024-06-07] MEDS: Apixaban 5 MG TABLET PO ×2 (08:25→19:49)
[2024-06-07] MEDS: 0.9 % Sodium Chloride Flush 3 ML SYRINGE IVFLUSH (08:25)
--- NOTE | 2024-06-07 11:13 | P.PNIM_ITS ---
Subjective Subjective Date of Service: 06/07/24 Interval History: the patient was seen and evaluated feels comfortable No reported other overnight events. Review of Systems Review of Systems: Yes all other systems are reviewed and are negative Physical Exam Vital Signs: Vital Signs: Last Vital Signs Temp 97.6 F 06/07/24 07:20 Pulse 58 06/07/24 07:20 Resp 18 06/07/24 07:20 BP 121/72 06/07/24 07:20 Pulse Ox 96 06/07/24 07:20 O2 Del Method Room Air 06/07/24 07:20 O2 Flow Rate 3 06/05/24 04:00 BMI result Body Mass Index 31.0 Const: Other: Constitutional : interactive, not in distress Cardiovascular : no JVP, no lower extremity edema Respiratory : bilateral chest movement, not in resp distress Gastrointestinal: soft, lax, Non tender Skin : Warm, Dry Neurological : Alert & oriented to self and place, No focal deficit Objective Data Active Medications Acetaminophen (Acetaminophen 325 Mg Tablet) 650 mg PO Q6H PRN PRN Reason: Pain, Mild 1-3,fever,headache Last Admin: 06/04/24 20:22 Dose: 650 mg Documented By: RYAN Amlodipine Besylate (Amlodipine Besylate 2.5 Mg Tablet) 2.5 mg PO DAILY [facility]; Protocol Last Admin: 06/07/24 08:25 Dose: 2.5 mg Documented By: RHODA Apixaban (Apixaban 5 Mg Tablet) 5 mg PO BID [facility] Last Admin: 06/07/24 08:25 Dose: 5 mg Documented By: RHODA Buspirone HCl (Buspirone Hcl 10 Mg Tablet) 10 mg PO DAILY [facility] Last Admin: 06/07/24 08:25 Dose: 10 mg Documented By: RHODA Buspirone HCl (Buspirone Hcl 5 Mg Tablet) 15 mg PO BEDTIME [facility] Last Admin: 06/06/24 21:04 Dose: 15 mg Documented By: RAVEN Calcium Carbonate (Calcium Carbonate 750 Mg Tab.Chew) 750 mg PO Q4H PRN PRN Reason: Heartburn Divalproex Sodium (Divalproex Sodium 500 Mg Tablet.Dr) 500 mg PO BEDTIME [facility] Last Admin: 06/06/24 21:05 Dose: 500 mg Documented By: RAVEN Gabapentin (Gabapentin 100 Mg Capsule) 200 mg PO BID [facility] Last Admin: 06/07/24 08:25 Dose: 200 mg Documented By: RHODA Hydroxyzine HCl (Hydroxyzine Hcl 25 Mg Tablet) 25 mg PO Q8H PRN PRN Reason: Anxiety Last Admin: 06/06/24 21:05 Dose: 25 mg Documented By: RAVEN Ibuprofen (Ibuprofen 400 Mg Tablet) 400 mg PO TIDWM PRN PRN Reason: Pain, Moderate(Pain Scale 4-6) Loperamide HCl (Loperamide Hcl 2 Mg Capsule) 2 mg PO DAILY PRN PRN Reason: Diarrhea Magnesium Hydroxide (Milk Of Magnesia 30 Ml Oral.Susp) 30 ml PO DAILY PRN PRN Reason: Constipation Melatonin (Melatonin 3 Mg Tablet) 6 mg PO BEDTIME PRN PRN Reason: Insomnia Last Admin: 06/06/24 21:05 Dose: 6 mg Documented By: RAVEN Metoprolol Tartrate (Metoprolol Tartrate 12.5 Mg Halftab) 12.5 mg PO BID [facility]; Protocol Last Admin: 06/07/24 08:25 Dose: 12.5 mg Documented By: RHODA Morphine Sulfate (Morphine Sulfate Immed Release 15 Mg Tablet) 15 mg PO Q6H PRN PRN Reason: Pain, Severe (Pain Scale 7-10) Last Admin: 06/06/24 17:20 Dose: 15 mg Documented By: CLAYTON Omeprazole (Omeprazole 20 Mg Capsule.Dr) 20 mg PO DAILY@0630 [facility] Last Admin: 06/07/24 05:25 Dose: 20 mg Documented By: RAVEN Ondansetron HCl (Ondansetron Hcl 4 Mg/2 Ml Vial) 4 mg IVPUSH Q8H PRN PRN Reason: Nausea and Vomiting Senna (Sennosides 8.6 Mg Tablet) 17.2 mg PO BEDTIME PRN PRN Reason: constipation Simethicone (Simethicone 80 Mg Tab.Chew) 80 mg PO QIDWMHS PRN PRN Reason: Gas Sodium Chloride (0.9 % Sodium Chloride Flush 3 Ml Syringe) [facility] Last Admin: 06/07/24 08:25 Dose: 3 ml Documented By: RHODA Tamsulosin HCl (Tamsulosin Hcl 0.4 Mg Capsule) 0.4 mg PO DAILY [facility] Last Admin: 06/07/24 08:25 Dose: 0.4 mg Documented By: RHODA Venlafaxine HCl (Venlafaxine Hcl Er 37.5 Mg Cap.Er.24h) 37.5 mg PO DAILY [facility] Last Admin: 06/07/24 08:25 Dose: 37.5 mg Documented By: RHODA Venlafaxine HCl (Venlafaxine Hcl Er 150 Mg Cap.Er.24h) 150 mg PO DAILY [facility] Last Admin: 06/07/24 08:25 Dose: 150 mg Documented By: RHODA Assessment and Plan (1) Cognitive impairment: Status: Acute Plan 78-year-old male with a history of chronic atrial fibrillation, hypertension, cognitive impairment and GERD presents initially from home with worsening shortness of breath and anxiety. 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 He was recently discharged from [facility] and after 2 days returned to the hospital. unable to take care of himself. 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 Quality Stroke Does the patient have a stroke diagnosis?: No VTE Prior VTE?: Yes VTE Risk Level:: Medical - moderate - high VTE Device Contraindication: Treatment Not Indicated VTE Drug Contraindication: N/A - Med Ordered
[2024-06-07 15:43] VITALS: BP 102/62; PULSE 70; RESP 16; TEMP 36.1; O2SAT 98
--- NOTE | 2024-06-07 16:17 | PC.NURSE ---
Per MD Zelaya pt does not need IV access at this time.
[2024-06-07] MEDS: Acetaminophen 325 MG TABLET 650 MG PO (18:31)
[2024-06-07] MEDS: hydrOXYzine HCL 25 MG TABLET PO (19:16)
[2024-06-07] MEDS: busPIRone HCl 5 MG TABLET 15 MG PO (19:48)
[2024-06-07] MEDS: Divalproex Sodium 500 MG TABLET.DR PO (19:50)
[2024-06-07 23:34] VITALS: BP 95/54; PULSE 77; RESP 18; TEMP 36.2; O2SAT 100
[2024-06-08 07:19] VITALS: BP 118/73; PULSE 61; RESP 16; TEMP 36.1; O2SAT 100
[2024-06-08] MEDS: Tamsulosin HCL 0.4 MG CAPSULE PO (09:43)
[2024-06-08] MEDS: Venlafaxine HCl ER 150 MG CAP.ER.24H PO (09:43)
[2024-06-08] MEDS: Venlafaxine HCl ER 37.5 MG CAP.ER.24H PO (09:43)
[2024-06-08] MEDS: amLODIPine Besylate 2.5 MG TABLET PO (09:44)
[2024-06-08] MEDS: Metoprolol Tartrate 12.5 MG HALFTAB PO ×2 (09:44→20:48)
[2024-06-08] MEDS: Gabapentin 100 MG CAPSULE 200 MG PO ×2 (09:44→20:47)
[2024-06-08] MEDS: Morphine Sulfate Immed Release 15 MG TABLET PO ×2 (09:44→20:47)
[2024-06-08] MEDS: Apixaban 5 MG TABLET PO ×2 (09:45→20:47)
[2024-06-08] MEDS: busPIRone HCl 10 MG TABLET PO (09:45)
--- NOTE | 2024-06-08 10:36 | HO.PM.IMPN ---
Subjective Subjective Date of Service: 06/08/24 Interval History: the patient was seen and evaluated laying comfortable in bed No reported other overnight events. Review of Systems Review of Systems: Yes all other systems are reviewed and are negative Physical Exam Vital Signs: Vital Signs: Last Vital Signs Temp 96.9 F 06/08/24 07:19 Pulse 61 06/08/24 07:19 Resp 16 06/08/24 07:19 BP 118/73 06/08/24 07:19 Pulse Ox 100 06/08/24 07:19 O2 Del Method Room Air 06/08/24 07:19 O2 Flow Rate 3 06/05/24 04:00 BMI result Body Mass Index 31.0 Const: Other: Constitutional : interactive, not in distress Cardiovascular : no JVP, no lower extremity edema Respiratory : bilateral chest movement, not in resp distress Gastrointestinal: soft, lax, Non tender Skin : Warm, Dry Neurological : Alert & oriented to self and place, No focal deficit Objective Data Active Medications Acetaminophen (Acetaminophen 325 Mg Tablet) 650 mg PO Q6H PRN PRN Reason: Pain, Mild 1-3,fever,headache Last Admin: 06/07/24 18:31 Dose: 650 mg Documented By: RHODA Amlodipine Besylate (Amlodipine Besylate 2.5 Mg Tablet) 2.5 mg PO DAILY [facility]; Protocol Last Admin: 06/08/24 09:44 Dose: 2.5 mg Documented By: DIONY Apixaban (Apixaban 5 Mg Tablet) 5 mg PO BID [facility] Last Admin: 06/08/24 09:45 Dose: 5 mg Documented By: DIONY Buspirone HCl (Buspirone Hcl 10 Mg Tablet) 10 mg PO DAILY [facility] Last Admin: 06/08/24 09:45 Dose: 10 mg Documented By: DIONY Buspirone HCl (Buspirone Hcl 5 Mg Tablet) 15 mg PO BEDTIME [facility] Last Admin: 06/07/24 19:48 Dose: 15 mg Documented By: INA Calcium Carbonate (Calcium Carbonate 750 Mg Tab.Chew) 750 mg PO Q4H PRN PRN Reason: Heartburn Divalproex Sodium (Divalproex Sodium 500 Mg Tablet.Dr) 500 mg PO BEDTIME [facility] Last Admin: 06/07/24 19:50 Dose: 500 mg Documented By: INA Gabapentin (Gabapentin 100 Mg Capsule) 200 mg PO BID [facility] Last Admin: 06/08/24 09:44 Dose: 200 mg Documented By: DIONY Hydroxyzine HCl (Hydroxyzine Hcl 25 Mg Tablet) 25 mg PO Q8H PRN PRN Reason: Anxiety Last Admin: 06/07/24 19:16 Dose: 25 mg Documented By: SANYA Ibuprofen (Ibuprofen 400 Mg Tablet) 400 mg PO TIDWM PRN PRN Reason: Pain, Moderate(Pain Scale 4-6) Loperamide HCl (Loperamide Hcl 2 Mg Capsule) 2 mg PO DAILY PRN PRN Reason: Diarrhea Magnesium Hydroxide (Milk Of Magnesia 30 Ml Oral.Susp) 30 ml PO DAILY PRN PRN Reason: Constipation Melatonin (Melatonin 3 Mg Tablet) 6 mg PO BEDTIME PRN PRN Reason: Insomnia Last Admin: 06/06/24 21:05 Dose: 6 mg Documented By: CASTILИван Metoprolol Tartrate (Metoprolol Tartrate 12.5 Mg Halftab) 12.5 mg PO BID [facility]; Protocol Last Admin: 06/08/24 09:44 Dose: 12.5 mg Documented By: DIONY Morphine Sulfate (Morphine Sulfate Immed Release 15 Mg Tablet) 15 mg PO Q6H PRN PRN Reason: Pain, Severe (Pain Scale 7-10) Last Admin: 06/08/24 09:44 Dose: 15 mg Documented By: DIONY Omeprazole (Omeprazole 20 Mg Capsule.Dr) 20 mg PO DAILY@0630 [facility] Last Admin: 06/08/24 05:44 Dose: Not Given Documented By: INA Non-Admin Reason: Patient Refused Ondansetron HCl (Ondansetron Hcl 4 Mg/2 Ml Vial) 4 mg IVPUSH Q8H PRN PRN Reason: Nausea and Vomiting Senna (Sennosides 8.6 Mg Tablet) 17.2 mg PO BEDTIME PRN PRN Reason: constipation Simethicone (Simethicone 80 Mg Tab.Chew) 80 mg PO QIDWMHS PRN PRN Reason: Gas Sodium Chloride (0.9 % Sodium Chloride Flush 3 Ml Syringe) 3 ml IVFLUSH QSHIFT [facility] Last Admin: 06/08/24 09:47 Dose: Not Given Documented By: DIONY Non-Admin Reason: No Access Tamsulosin HCl (Tamsulosin Hcl 0.4 Mg Capsule) 0.4 mg PO DAILY [facility] Last Admin: 06/08/24 09:43 Dose: 0.4 mg Documented By: DIONY Venlafaxine HCl (Venlafaxine Hcl Er 37.5 Mg Cap.Er.24h) 37.5 mg PO DAILY [facility] Last Admin: 06/08/24 09:43 Dose: 37.5 mg Documented By: DIONY Venlafaxine HCl (Venlafaxine Hcl Er 150 Mg Cap.Er.24h) 150 mg PO DAILY [facility] Last Admin: 06/08/24 09:43 Dose: 150 mg Documented By: DIONY Assessment and Plan (1) Cognitive impairment: Status: Acute Plan 78-year-old male with a history of chronic atrial fibrillation, hypertension, cognitive impairment and GERD presents initially from home with worsening shortness of breath and anxiety. 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 He was recently discharged from [facility] and after 2 days returned to the hospital. unable to take care of himself. # Chronic atrial fibrillation acceptable rate control on current therapies continue Eliquis # Cognitive impairment stable on Buspar and Valproic acid with PRN Atarax # Hypertension Amlodipine and Metoprolol DNR DNI Eliquis will need inpatient stay pending [facility]. Quality Stroke Does the patient have a stroke diagnosis?: No VTE Prior VTE?: Yes VTE Risk Level:: Medical - moderate - high VTE Device Contraindication: Treatment Not Indicated VTE Drug Contraindication: N/A - Med Ordered
[2024-06-08 15:00] VITALS: BP 116/66; PULSE 62; RESP 20; TEMP 36.1; O2SAT 94
--- NOTE | 2024-06-08 15:17 | MHC.CM.PN ---
Patient with [facility] pending and in need of a LTC bed. [facility]. They have requested 6 mo of Bank statements. They will also fax their Private Pay Medicaid form to case management for completion. DP LTC via BLS.
[2024-06-08] MEDS: Divalproex Sodium 500 MG TABLET.DR PO (20:47)
[2024-06-08] MEDS: busPIRone HCl 5 MG TABLET 15 MG PO (20:47)
[2024-06-08] MEDS: Melatonin 3 MG TABLET 6 MG PO (20:47)
[2024-06-08 20:50] VITALS: BP 123/72; PULSE 71
[2024-06-08 23:22] VITALS: BP 100/60; PULSE 67; RESP 16; TEMP 36; O2SAT 98
[2024-06-09] MEDS: Omeprazole 20 MG CAPSULE.DR PO (05:29)
[2024-06-09 07:26] VITALS: BP 122/76; PULSE 57; RESP 12; TEMP 36.3; O2SAT 99
[2024-06-09] MEDS: Venlafaxine HCl ER 37.5 MG CAP.ER.24H PO (08:16)
[2024-06-09] MEDS: Venlafaxine HCl ER 150 MG CAP.ER.24H PO (08:16)
[2024-06-09] MEDS: Tamsulosin HCL 0.4 MG CAPSULE PO (08:16)
[2024-06-09] MEDS: Apixaban 5 MG TABLET PO ×2 (08:16→19:54)
[2024-06-09] MEDS: amLODIPine Besylate 2.5 MG TABLET PO (08:17)
[2024-06-09] MEDS: Gabapentin 100 MG CAPSULE 200 MG PO ×2 (08:17→19:54)
[2024-06-09] MEDS: busPIRone HCl 10 MG TABLET PO (08:17)
--- NOTE | 2024-06-09 10:24 | HO.PM.IMPN ---
Subjective Subjective Date of Service: 06/09/24 Interval History: the patient was seen and evaluated laying comfortable in bed No reported other overnight events. Physical Exam Vital Signs: Vital Signs: Last Vital Signs Temp 97.4 F 06/09/24 07:26 Pulse 57 06/09/24 07:26 Resp 12 06/09/24 07:26 BP 122/76 06/09/24 07:26 Pulse Ox 99 06/09/24 07:26 O2 Del Method Room Air 06/09/24 07:26 O2 Flow Rate 3 06/05/24 04:00 BMI result Body Mass Index 31.0 Const: Other: Constitutional : interactive, not in distress Cardiovascular : no JVP, no lower extremity edema Respiratory : bilateral chest movement, not in resp distress Gastrointestinal: soft, lax, Non tender Skin : Warm, Dry Neurological : Alert & oriented to self and place, No focal deficit Objective Data Active Medications Acetaminophen (Acetaminophen 325 Mg Tablet) 650 mg PO Q6H PRN PRN Reason: Pain, Mild 1-3,fever,headache Last Admin: 06/07/24 18:31 Dose: 650 mg Documented By: RHODA Amlodipine Besylate (Amlodipine Besylate 2.5 Mg Tablet) 2.5 mg PO DAILY [facility]; Protocol Last Admin: 06/09/24 08:17 Dose: 2.5 mg Documented By: RADHA Apixaban (Apixaban 5 Mg Tablet) 5 mg PO BID [facility] Last Admin: 06/09/24 08:16 Dose: 5 mg Documented By: RADHA Buspirone HCl (Buspirone Hcl 10 Mg Tablet) 10 mg PO DAILY [facility] Last Admin: 06/09/24 08:17 Dose: 10 mg Documented By: RADHA Buspirone HCl (Buspirone Hcl 5 Mg Tablet) 15 mg PO BEDTIME [facility] Last Admin: 06/08/24 20:47 Dose: 15 mg Documented By: RYAN Calcium Carbonate (Calcium Carbonate 750 Mg Tab.Chew) 750 mg PO Q4H PRN PRN Reason: Heartburn Divalproex Sodium (Divalproex Sodium 500 Mg Tablet.Dr) 500 mg PO BEDTIME [facility] Last Admin: 06/08/24 20:47 Dose: 500 mg Documented By: RYAN Gabapentin (Gabapentin 100 Mg Capsule) 200 mg PO BID [facility] Last Admin: 06/09/24 08:17 Dose: 200 mg Documented By: RADHA Hydroxyzine HCl (Hydroxyzine Hcl 25 Mg Tablet) 25 mg PO Q8H PRN PRN Reason: Anxiety Last Admin: 06/07/24 19:16 Dose: 25 mg Documented By: SANYA Ibuprofen (Ibuprofen 400 Mg Tablet) 400 mg PO TIDWM PRN PRN Reason: Pain, Moderate(Pain Scale 4-6) Loperamide HCl (Loperamide Hcl 2 Mg Capsule) 2 mg PO DAILY PRN PRN Reason: Diarrhea Magnesium Hydroxide (Milk Of Magnesia 30 Ml Oral.Susp) 30 ml PO DAILY PRN PRN Reason: Constipation Melatonin (Melatonin 3 Mg Tablet) 6 mg PO BEDTIME PRN PRN Reason: Insomnia Last Admin: 06/08/24 20:47 Dose: 6 mg Documented By: RYAN Metoprolol Tartrate (Metoprolol Tartrate 12.5 Mg Halftab) 12.5 mg PO BID [facility]; Protocol Last Admin: 06/09/24 08:18 Dose: Not Given Documented By: RADHA Non-Admin Reason: Decreased Heart Rate Morphine Sulfate (Morphine Sulfate Immed Release 15 Mg Tablet) 15 mg PO Q6H PRN PRN Reason: Pain, Severe (Pain Scale 7-10) Last Admin: 06/08/24 20:47 Dose: 15 mg Documented By: RYAN Omeprazole (Omeprazole 20 Mg Capsule.Dr) 20 mg PO DAILY@0630 [facility] Last Admin: 06/09/24 05:29 Dose: 20 mg Documented By: RYAN Ondansetron HCl (Ondansetron Hcl 4 Mg/2 Ml Vial) 4 mg IVPUSH Q8H PRN PRN Reason: Nausea and Vomiting Senna (Sennosides 8.6 Mg Tablet) 17.2 mg PO BEDTIME PRN PRN Reason: constipation Simethicone (Simethicone 80 Mg Tab.Chew) 80 mg PO QIDWMHS PRN PRN Reason: Gas Sodium Chloride (0.9 % Sodium Chloride Flush 3 Ml Syringe) 3 ml IVFLUSH QSHIFT [facility] Last Admin: 06/09/24 08:15 Dose: Not Given Documented By: RADHA Non-Admin Reason: No Access Tamsulosin HCl (Tamsulosin Hcl 0.4 Mg Capsule) 0.4 mg PO DAILY [facility] Last Admin: 06/09/24 08:16 Dose: 0.4 mg Documented By: RADHA Venlafaxine HCl (Venlafaxine Hcl Er 37.5 Mg Cap.Er.24h) 37.5 mg PO DAILY [facility] Last Admin: 06/09/24 08:16 Dose: 37.5 mg Documented By: RADHA Venlafaxine HCl (Venlafaxine Hcl Er 150 Mg Cap.Er.24h) 150 mg PO DAILY [facility] Last Admin: 06/09/24 08:16 Dose: 150 mg Documented By: RADHA Assessment and Plan (1) Cognitive impairment: Status: Acute Plan 78-year-old male with a history of chronic atrial fibrillation, hypertension, cognitive impairment and GERD presents initially from home with worsening shortness of breath and anxiety. 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 He was recently discharged from [facility] and after 2 days returned to the hospital. unable to take care of himself. 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 Quality Stroke Does the patient have a stroke diagnosis?: No VTE Prior VTE?: Yes VTE Risk Level:: Medical - moderate - high VTE Device Contraindication: Treatment Not Indicated VTE Drug Contraindication: N/A - Med Ordered
--- NOTE | 2024-06-09 14:04 | MHC.CM.PN ---
Addendum entered by Page Mishra 06/09/24 16:01: CM SPOKE WITH HCP JARET, SHE IS UNABLE TO ASSIST WITH OBTAINING ANY FINANCIAL DOCUMENTS. SHE WOULD PREFER [facility] WHEN LTC BED OBTAINED. CM WILL CONTINUE TO WORK TO OBTAIN THESE DOCUMENTS. Original Note: THIS CM CALLED AND LEFT MESSAGE FOR FRIEND/HCP JARET TO RETURN CALL PER REQUEST PT TO POSSIBLY ASSIST WITH OBTAINING DOCUMENTS TO COMPLETE [facility]. CM REQUESTED RETURN CALL.
[2024-06-09] MEDS: Morphine Sulfate Immed Release 15 MG TABLET PO (14:53)
[2024-06-09 15:21] VITALS: BP 101/71; PULSE 77; RESP 20; TEMP 36.2; O2SAT 92
[2024-06-09 19:26] VITALS: BP 113/60; PULSE 83; RESP 20; TEMP 36.1; O2SAT 96
[2024-06-09] MEDS: Melatonin 3 MG TABLET 6 MG PO (19:54)
[2024-06-09] MEDS: Divalproex Sodium 500 MG TABLET.DR PO (19:54)
[2024-06-09] MEDS: Metoprolol Tartrate 12.5 MG HALFTAB PO (19:54)
[2024-06-09] MEDS: busPIRone HCl 5 MG TABLET 15 MG PO (19:54)
[2024-06-10 03:39] VITALS: BP 113/58; PULSE 62; RESP 18; TEMP 36.6; O2SAT 99
[2024-06-10] MEDS: Omeprazole 20 MG CAPSULE.DR PO (05:43)
[2024-06-10 07:07] VITALS: BP 130/70; PULSE 61; RESP 16; TEMP 36; O2SAT 93
[2024-06-10] MEDS: Tamsulosin HCL 0.4 MG CAPSULE PO (08:00)
[2024-06-10] MEDS: busPIRone HCl 10 MG TABLET PO (08:00)
[2024-06-10] MEDS: Metoprolol Tartrate 12.5 MG HALFTAB PO ×2 (08:00→19:18)
[2024-06-10] MEDS: amLODIPine Besylate 2.5 MG TABLET PO (08:00)
[2024-06-10] MEDS: Venlafaxine HCl ER 150 MG CAP.ER.24H PO (08:00)
[2024-06-10] MEDS: Venlafaxine HCl ER 37.5 MG CAP.ER.24H PO (08:00)
[2024-06-10] MEDS: Apixaban 5 MG TABLET PO ×2 (08:00→19:18)
[2024-06-10] MEDS: Gabapentin 100 MG CAPSULE 200 MG PO ×2 (08:00→19:17)
[2024-06-10] MEDS: Morphine Sulfate Immed Release 15 MG TABLET PO ×3 (09:55→22:24)
--- NOTE | 2024-06-10 10:33 | P.PNIM_ITS ---
Subjective Subjective Date of Service: 06/10/24 Interval History: the patient was seen and evaluated laying comfortable in bed No reported other overnight events. Physical Exam Vital Signs: Vital Signs: Last Vital Signs Temp 96.8 F 06/10/24 07:07 Pulse 61 06/10/24 07:07 Resp 16 06/10/24 07:07 BP 130/70 06/10/24 07:07 Pulse Ox 93 06/10/24 07:07 O2 Del Method Room Air 06/10/24 07:07 O2 Flow Rate 3 06/05/24 04:00 BMI result Body Mass Index 31.0 Const: Other: Constitutional : interactive, not in distress Cardiovascular : no JVP, no lower extremity edema Respiratory : bilateral chest movement, not in resp distress Gastrointestinal: soft, lax, Non tender Skin : Warm, Dry Neurological : Alert & oriented to self and place, No focal deficit Objective Data Active Medications Acetaminophen (Acetaminophen 325 Mg Tablet) 650 mg PO Q6H PRN PRN Reason: Pain, Mild 1-3,fever,headache Last Admin: 06/07/24 18:31 Dose: 650 mg Documented By: RHODA Amlodipine Besylate (Amlodipine Besylate 2.5 Mg Tablet) 2.5 mg PO DAILY [facility]; Protocol Last Admin: 06/10/24 08:00 Dose: 2.5 mg Documented By: VI Apixaban (Apixaban 5 Mg Tablet) 5 mg PO BID [facility] Last Admin: 06/10/24 08:00 Dose: 5 mg Documented By: VI Buspirone HCl (Buspirone Hcl 10 Mg Tablet) 10 mg PO DAILY [facility] Last Admin: 06/10/24 08:00 Dose: 10 mg Documented By: VI Buspirone HCl (Buspirone Hcl 5 Mg Tablet) 15 mg PO BEDTIME [facility] Last Admin: 06/09/24 19:54 Dose: 15 mg Documented By: RYAN Calcium Carbonate (Calcium Carbonate 750 Mg Tab.Chew) 750 mg PO Q4H PRN PRN Reason: Heartburn Divalproex Sodium (Divalproex Sodium 500 Mg Tablet.Dr) 500 mg PO BEDTIME [facility] Last Admin: 06/09/24 19:54 Dose: 500 mg Documented By: RYAN Gabapentin (Gabapentin 100 Mg Capsule) 200 mg PO BID [facility] Last Admin: 06/10/24 08:00 Dose: 200 mg Documented By: VI Hydroxyzine HCl (Hydroxyzine Hcl 25 Mg Tablet) 25 mg PO Q8H PRN PRN Reason: Anxiety Last Admin: 06/07/24 19:16 Dose: 25 mg Documented By: SANYA Ibuprofen (Ibuprofen 400 Mg Tablet) 400 mg PO TIDWM PRN PRN Reason: Pain, Moderate(Pain Scale 4-6) Loperamide HCl (Loperamide Hcl 2 Mg Capsule) 2 mg PO DAILY PRN PRN Reason: Diarrhea Magnesium Hydroxide (Milk Of Magnesia 30 Ml Oral.Susp) 30 ml PO DAILY PRN PRN Reason: Constipation Melatonin (Melatonin 3 Mg Tablet) 6 mg PO BEDTIME PRN PRN Reason: Insomnia Last Admin: 06/09/24 19:54 Dose: 6 mg Documented By: RYAN Metoprolol Tartrate (Metoprolol Tartrate 12.5 Mg Halftab) 12.5 mg PO BID [facility]; Protocol Last Admin: 06/10/24 08:00 Dose: 12.5 mg Documented By: VI Morphine Sulfate (Morphine Sulfate Immed Release 15 Mg Tablet) 15 mg PO Q6H PRN PRN Reason: Pain, Severe (Pain Scale 7-10) Last Admin: 06/10/24 09:55 Dose: 15 mg Documented By: VI Omeprazole (Omeprazole 20 Mg Capsule.Dr) 20 mg PO DAILY@0630 [facility] Last Admin: 06/10/24 05:43 Dose: 20 mg Documented By: RYAN Ondansetron HCl (Ondansetron Hcl 4 Mg/2 Ml Vial) 4 mg IVPUSH Q8H PRN PRN Reason: Nausea and Vomiting Senna (Sennosides 8.6 Mg Tablet) 17.2 mg PO BEDTIME PRN PRN Reason: constipation Simethicone (Simethicone 80 Mg Tab.Chew) 80 mg PO QIDWMHS PRN PRN Reason: Gas Sodium Chloride (0.9 % Sodium Chloride Flush 3 Ml Syringe) 3 ml IVFLUSH QSHIFT [facility] Last Admin: 06/10/24 08:00 Dose: Not Given Documented By: VI Non-Admin Reason: No Access Tamsulosin HCl (Tamsulosin Hcl 0.4 Mg Capsule) 0.4 mg PO DAILY [facility] Last Admin: 06/10/24 08:00 Dose: 0.4 mg Documented By: VI Venlafaxine HCl (Venlafaxine Hcl Er 37.5 Mg Cap.Er.24h) 37.5 mg PO DAILY [facility] Last Admin: 06/10/24 08:00 Dose: 37.5 mg Documented By: VI Venlafaxine HCl (Venlafaxine Hcl Er 150 Mg Cap.Er.24h) 150 mg PO DAILY [facility] Last Admin: 06/10/24 08:00 Dose: 150 mg Documented By: VI Assessment and Plan (1) Cognitive impairment: Status: Acute Plan 78M PMH chronic atrial fibrillation, hypertension, cognitive impairment and GERD presentesd initially from home with worsening shortness of breath and anxiety. 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 He was recently discharged from [facility] and after 2 days returned to the hospital. unable to take care of himself. 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 Quality Stroke Does the patient have a stroke diagnosis?: No VTE Prior VTE?: Yes VTE Risk Level:: Medical - moderate - high VTE Device Contraindication: Treatment Not Indicated VTE Drug Contraindication: N/A - Med Ordered
--- NOTE | 2024-06-10 11:55 | MHC.CLN ---
NUTRITION ALERTED BY DINING STAFF THAT PATIENT QUESTIONING LOW SODIUM DIET. WOULD LIKE REGULAR DIET AND STATED THAT HAS NEVER FOLLOWED LOW SODIUM DIET. INTAKE AT MEALS 100%. CHANGED DIET TO REGULAR PER PATIENT PREFERENCE/REQUEST. [facility] AWARE OF CHANGE.
[2024-06-10 15:16] VITALS: BP 108/63; PULSE 64; RESP 20; TEMP 36; O2SAT 99
[2024-06-10 18:56] VITALS: BP 106/60; PULSE 68; RESP 20; TEMP 36.4; O2SAT 94
[2024-06-10] MEDS: busPIRone HCl 5 MG TABLET 15 MG PO (19:17)
[2024-06-10] MEDS: Divalproex Sodium 500 MG TABLET.DR PO (19:18)
[2024-06-10] MEDS: Melatonin 3 MG TABLET 6 MG PO (19:18)
[2024-06-11] MEDS: Ibuprofen 400 MG TABLET PO ×2 (02:52→15:54)
[2024-06-11] MEDS: Acetaminophen 325 MG TABLET 650 MG PO ×2 (02:52→15:56)
[2024-06-11 03:29] VITALS: BP 111/72; PULSE 60; RESP 16; TEMP 36; O2SAT 97
[2024-06-11] MEDS: Omeprazole 20 MG CAPSULE.DR PO (05:35)
[2024-06-11 07:40] VITALS: BP 115/59; PULSE 57; RESP 16; TEMP 36; O2SAT 97
[2024-06-11] MEDS: Tamsulosin HCL 0.4 MG CAPSULE PO (08:25)
[2024-06-11] MEDS: Venlafaxine HCl ER 37.5 MG CAP.ER.24H PO (08:26)
[2024-06-11] MEDS: busPIRone HCl 10 MG TABLET PO (08:26)
[2024-06-11] MEDS: Venlafaxine HCl ER 150 MG CAP.ER.24H PO (08:26)
[2024-06-11] MEDS: Gabapentin 100 MG CAPSULE 200 MG PO ×2 (08:26→21:48)
[2024-06-11] MEDS: amLODIPine Besylate 2.5 MG TABLET PO (08:27)
[2024-06-11] MEDS: Apixaban 5 MG TABLET PO ×2 (08:28→21:49)
--- NOTE | 2024-06-11 08:45 | HO.PM.IMPN ---
Subjective Subjective Date of Service: 06/11/24 Interval History: the patient was seen and evaluated laying comfortable in bed No reported other overnight events. Physical Exam Vital Signs: Vital Signs: Last Vital Signs Temp 96.8 F 06/11/24 07:40 Pulse 57 06/11/24 07:40 Resp 16 06/11/24 07:40 BP 115/59 L 06/11/24 07:40 Pulse Ox 97 06/11/24 07:40 O2 Del Method Room Air 06/11/24 07:40 O2 Flow Rate 3 06/05/24 04:00 BMI result Body Mass Index 31.0 Const: Other: Constitutional : interactive, not in distress Cardiovascular : no JVP, no lower extremity edema Respiratory : bilateral chest movement, not in resp distress Gastrointestinal: soft, lax, Non tender Skin : Warm, Dry Neurological : Alert & oriented to self and place, No focal deficit Objective Data Active Medications Acetaminophen (Acetaminophen 325 Mg Tablet) 650 mg PO Q6H PRN PRN Reason: Pain, Mild 1-3,fever,headache Last Admin: 06/11/24 02:52 Dose: 650 mg Documented By: RYAN Amlodipine Besylate (Amlodipine Besylate 2.5 Mg Tablet) 2.5 mg PO DAILY [facility]; Protocol Last Admin: 06/11/24 08:27 Dose: 2.5 mg Documented By: ADRYAN Apixaban (Apixaban 5 Mg Tablet) 5 mg PO BID [facility] Last Admin: 06/11/24 08:28 Dose: 5 mg Documented By: ADRYAN Buspirone HCl (Buspirone Hcl 10 Mg Tablet) 10 mg PO DAILY [facility] Last Admin: 06/11/24 08:26 Dose: 10 mg Documented By: ADRYAN Buspirone HCl (Buspirone Hcl 5 Mg Tablet) 15 mg PO BEDTIME [facility] Last Admin: 06/10/24 19:17 Dose: 15 mg Documented By: RYAN Calcium Carbonate (Calcium Carbonate 750 Mg Tab.Chew) 750 mg PO Q4H PRN PRN Reason: Heartburn Divalproex Sodium (Divalproex Sodium 500 Mg Tablet.Dr) 500 mg PO BEDTIME [facility] Last Admin: 06/10/24 19:18 Dose: 500 mg Documented By: RYAN Gabapentin (Gabapentin 100 Mg Capsule) 200 mg PO BID [facility] Last Admin: 06/11/24 08:26 Dose: 200 mg Documented By: ADRYAN Hydroxyzine HCl (Hydroxyzine Hcl 25 Mg Tablet) 25 mg PO Q8H PRN PRN Reason: Anxiety Last Admin: 06/07/24 19:16 Dose: 25 mg Documented By: SANYA Ibuprofen (Ibuprofen 400 Mg Tablet) 400 mg PO TIDWM PRN PRN Reason: Pain, Moderate(Pain Scale 4-6) Last Admin: 06/11/24 02:52 Dose: 400 mg Documented By: RYAN Loperamide HCl (Loperamide Hcl 2 Mg Capsule) 2 mg PO DAILY PRN PRN Reason: Diarrhea Magnesium Hydroxide (Milk Of Magnesia 30 Ml Oral.Susp) 30 ml PO DAILY PRN PRN Reason: Constipation Melatonin (Melatonin 3 Mg Tablet) 6 mg PO BEDTIME PRN PRN Reason: Insomnia Last Admin: 06/10/24 19:18 Dose: 6 mg Documented By: RYAN Metoprolol Tartrate (Metoprolol Tartrate 12.5 Mg Halftab) 12.5 mg PO BID [facility]; Protocol Last Admin: 06/11/24 08:25 Dose: Not Given Documented By: ADRYAN Non-Admin Reason: Decreased Heart Rate Morphine Sulfate (Morphine Sulfate Immed Release 15 Mg Tablet) 15 mg PO Q6H PRN PRN Reason: Pain, Severe (Pain Scale 7-10) Last Admin: 06/10/24 22:24 Dose: 15 mg Documented By: RYAN Omeprazole (Omeprazole 20 Mg Capsule.Dr) 20 mg PO DAILY@0630 [facility] Last Admin: 06/11/24 05:35 Dose: 20 mg Documented By: RYAN Comments: downtime Ondansetron HCl (Ondansetron Hcl 4 Mg/2 Ml Vial) 4 mg IVPUSH Q8H PRN PRN Reason: Nausea and Vomiting Senna (Sennosides 8.6 Mg Tablet) 17.2 mg PO BEDTIME PRN PRN Reason: constipation Simethicone (Simethicone 80 Mg Tab.Chew) 80 mg PO QIDWMHS PRN PRN Reason: Gas Sodium Chloride (0.9 % Sodium Chloride Flush 3 Ml Syringe) [facility] Last Admin: 06/11/24 08:33 Dose: Not Given Documented By: ADRYAN Non-Admin Reason: No Access Tamsulosin HCl (Tamsulosin Hcl 0.4 Mg Capsule) 0.4 mg PO DAILY [facility] Last Admin: 06/11/24 08:25 Dose: 0.4 mg Documented By: ADRYAN Venlafaxine HCl (Venlafaxine Hcl Er 37.5 Mg Cap.Er.24h) 37.5 mg PO DAILY [facility] Last Admin: 06/11/24 08:26 Dose: 37.5 mg Documented By: ADRYAN Venlafaxine HCl (Venlafaxine Hcl Er 150 Mg Cap.Er.24h) 150 mg PO DAILY [facility] Last Admin: 06/11/24 08:26 Dose: 150 mg Documented By: ADRYAN Assessment and Plan (1) Cognitive impairment: Status: Acute Plan 78M PMH chronic atrial fibrillation, hypertension, cognitive impairment and GERD presentesd initially from home with worsening shortness of breath and anxiety. 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 He was recently discharged from [facility] and after 2 days returned to the hospital. unable to take care of himself. Chronic atrial fibrillation acceptable rate control on current therapies continue Eliquis Cognitive impairment stable on Buspar and Valproic acid with PRN Atarax Hypertension Amlodipine and Metoprolol DNR DNI Eliquis will need inpatient stay pending custodial facility acceptance. Quality Stroke Does the patient have a stroke diagnosis?: No VTE Prior VTE?: Yes VTE Risk Level:: Medical - moderate - high VTE Device Contraindication: Treatment Not Indicated VTE Drug Contraindication: N/A - Med Ordered
[2024-06-11] MEDS: Morphine Sulfate Immed Release 15 MG TABLET PO ×2 (13:36→21:53)
--- NOTE | 2024-06-11 13:52 | MHC.CM.PN ---
CM REACHED OUT TO [facility] FINANCIAL COUNSELOR TO DETERMINE HOW THIS PT'S BANK STATEMENTS WERE OBTAINED TO COMPLETE [facility]. AWAITING RESPONSE. CM CONTINUING TO FOLLOW. POSSIBLE SITE VISIT FROM [facility]IA[facility] PER [place].
[2024-06-11 15:12] VITALS: BP 117/58; PULSE 70; RESP 16; TEMP 36.6; O2SAT 95
[2024-06-11 19:37] VITALS: BP 102/70; PULSE 77; RESP 20; TEMP 36.2; O2SAT 94
[2024-06-11] MEDS: busPIRone HCl 5 MG TABLET 15 MG PO (21:48)
[2024-06-11] MEDS: Metoprolol Tartrate 12.5 MG HALFTAB PO (21:49)
[2024-06-11] MEDS: Divalproex Sodium 500 MG TABLET.DR PO (21:49)
[2024-06-12 03:02] VITALS: BP 100/55; PULSE 87; RESP 18; TEMP 36.1; O2SAT 94
[2024-06-12] MEDS: Omeprazole 20 MG CAPSULE.DR PO (06:15)
[2024-06-12 07:35] VITALS: BP 112/66; PULSE 60; RESP 16; TEMP 36.1; O2SAT 96
[2024-06-12] MEDS: Venlafaxine HCl ER 150 MG CAP.ER.24H PO (08:25)
[2024-06-12] MEDS: busPIRone HCl 10 MG TABLET PO (08:25)
[2024-06-12] MEDS: Metoprolol Tartrate 12.5 MG HALFTAB PO ×2 (08:25→20:46)
[2024-06-12] MEDS: Tamsulosin HCL 0.4 MG CAPSULE PO (08:25)
[2024-06-12] MEDS: Venlafaxine HCl ER 37.5 MG CAP.ER.24H PO (08:25)
[2024-06-12] MEDS: Apixaban 5 MG TABLET PO ×2 (08:25→20:45)
[2024-06-12] MEDS: amLODIPine Besylate 2.5 MG TABLET PO (08:25)
[2024-06-12] MEDS: Gabapentin 100 MG CAPSULE 200 MG PO ×2 (08:25→20:46)
--- NOTE | 2024-06-12 08:48 | P.PNIM_ITS ---
Subjective Subjective Date of Service: 06/12/24 Interval History: the patient was seen and evaluated laying comfortable in bed No reported other overnight events. Physical Exam Vital Signs: Vital Signs: Last Vital Signs Temp 96.9 F 06/12/24 07:35 Pulse 60 06/12/24 07:35 Resp 16 06/12/24 07:35 BP 112/66 06/12/24 07:35 Pulse Ox 96 06/12/24 07:35 O2 Del Method Room Air 06/12/24 07:35 O2 Flow Rate 3 06/05/24 04:00 BMI result Body Mass Index 31.0 Const: Other: Constitutional : interactive, not in distress Cardiovascular : no JVP, no lower extremity edema Respiratory : bilateral chest movement, not in resp distress Gastrointestinal: soft, lax, Non tender Skin : Warm, Dry Neurological : Alert & oriented to self and place, No focal deficit Objective Data Active Medications Acetaminophen (Acetaminophen 325 Mg Tablet) 650 mg PO Q6H PRN PRN Reason: Pain, Mild 1-3,fever,headache Last Admin: 06/11/24 15:56 Dose: 650 mg Documented By: ADRYAN Amlodipine Besylate (Amlodipine Besylate 2.5 Mg Tablet) 2.5 mg PO DAILY [facility]; Protocol Last Admin: 06/12/24 08:25 Dose: 2.5 mg Documented By: GREGORY Apixaban (Apixaban 5 Mg Tablet) 5 mg PO BID [facility] Last Admin: 06/12/24 08:25 Dose: 5 mg Documented By: GREGORY Buspirone HCl (Buspirone Hcl 10 Mg Tablet) 10 mg PO DAILY [facility] Last Admin: 06/12/24 08:25 Dose: 10 mg Documented By: GREGORY Buspirone HCl (Buspirone Hcl 5 Mg Tablet) 15 mg PO BEDTIME [facility] Last Admin: 06/11/24 21:48 Dose: 15 mg Documented By: FELISA Calcium Carbonate (Calcium Carbonate 750 Mg Tab.Chew) 750 mg PO Q4H PRN PRN Reason: Heartburn Divalproex Sodium (Divalproex Sodium 500 Mg Tablet.Dr) 500 mg PO BEDTIME [facility] Last Admin: 06/11/24 21:49 Dose: 500 mg Documented By: FELISA Gabapentin (Gabapentin 100 Mg Capsule) 200 mg PO BID [facility] Last Admin: 06/12/24 08:25 Dose: 200 mg Documented By: GREGORY Hydroxyzine HCl (Hydroxyzine Hcl 25 Mg Tablet) 25 mg PO Q8H PRN PRN Reason: Anxiety Last Admin: 06/07/24 19:16 Dose: 25 mg Documented By: SANYA Ibuprofen (Ibuprofen 400 Mg Tablet) 400 mg PO TIDWM PRN PRN Reason: Pain, Moderate(Pain Scale 4-6) Last Admin: 06/11/24 15:54 Dose: 400 mg Documented By: ADRYAN Loperamide HCl (Loperamide Hcl 2 Mg Capsule) 2 mg PO DAILY PRN PRN Reason: Diarrhea Magnesium Hydroxide (Milk Of Magnesia 30 Ml Oral.Susp) 30 ml PO DAILY PRN PRN Reason: Constipation Melatonin (Melatonin 3 Mg Tablet) 6 mg PO BEDTIME PRN PRN Reason: Insomnia Last Admin: 06/10/24 19:18 Dose: 6 mg Documented By: RYAN Metoprolol Tartrate (Metoprolol Tartrate 12.5 Mg Halftab) 12.5 mg PO BID [facility]; Protocol Last Admin: 06/12/24 08:25 Dose: 12.5 mg Documented By: GREGORY Morphine Sulfate (Morphine Sulfate Immed Release 15 Mg Tablet) 15 mg PO Q6H PRN PRN Reason: Pain, Severe (Pain Scale 7-10) Last Admin: 06/11/24 21:53 Dose: 15 mg Documented By: FELISA Omeprazole (Omeprazole 20 Mg Capsule.Dr) 20 mg PO DAILY@0630 [facility] Last Admin: 06/12/24 06:15 Dose: 20 mg Documented By: FELISA Ondansetron HCl (Ondansetron Hcl 4 Mg/2 Ml Vial) 4 mg IVPUSH Q8H PRN PRN Reason: Nausea and Vomiting Senna (Sennosides 8.6 Mg Tablet) 17.2 mg PO BEDTIME PRN PRN Reason: constipation Simethicone (Simethicone 80 Mg Tab.Chew) 80 mg PO QIDWMHS PRN PRN Reason: Gas Sodium Chloride (0.9 % Sodium Chloride Flush 3 Ml Syringe) 3 ml IVFLUSH [facility] Last Admin: 06/12/24 07:55 Dose: Not Given Documented By: GREGORY Non-Admin Reason: No Access Tamsulosin HCl (Tamsulosin Hcl 0.4 Mg Capsule) 0.4 mg PO DAILY [facility] Last Admin: 06/12/24 08:25 Dose: 0.4 mg Documented By: GREGORY Venlafaxine HCl (Venlafaxine Hcl Er 37.5 Mg Cap.Er.24h) 37.5 mg PO DAILY [facility] Last Admin: 06/12/24 08:25 Dose: 37.5 mg Documented By: GREGORY Venlafaxine HCl (Venlafaxine Hcl Er 150 Mg Cap.Er.24h) 150 mg PO DAILY [facility] Last Admin: 06/12/24 08:25 Dose: 150 mg Documented By: GREGORY Assessment and Plan (1) Cognitive impairment: Status: Acute Plan 78M PMH chronic atrial fibrillation, hypertension, cognitive impairment and GERD presentesd initially from home with worsening shortness of breath and anxiety. 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 He was recently discharged from [facility] and after 2 days returned to the hospital. unable to take care of himself. Chronic atrial fibrillation acceptable rate control on current therapies continue Eliquis Cognitive impairment stable on Buspar and Valproic acid with PRN Atarax Hypertension Amlodipine and Metoprolol DNR DNI Eliquis will need inpatient stay pending intermediate facility acceptance. Quality Stroke Does the patient have a stroke diagnosis?: No VTE Prior VTE?: Yes VTE Risk Level:: Medical - moderate - high VTE Device Contraindication: Treatment Not Indicated VTE Drug Contraindication: N/A - Med Ordered
[2024-06-12] MEDS: Morphine Sulfate Immed Release 15 MG TABLET PO ×2 (09:35→21:24)
--- NOTE | 2024-06-12 13:04 | MHC.CM.PN ---
EMR reviewed and per MD rounds, MH application pending, and pt will then need LTC placement. [facility] liaison to come in and meet with pt.
[2024-06-12 15:53] VITALS: BP 117/71; PULSE 64; RESP 18; TEMP 36.2; O2SAT 99
[2024-06-12] MEDS: Ibuprofen 400 MG TABLET PO (18:57)
[2024-06-12 19:55] VITALS: BP 105/60; PULSE 81; RESP 18; TEMP 36.3; O2SAT 96
[2024-06-12] MEDS: Divalproex Sodium 500 MG TABLET.DR PO (20:46)
[2024-06-12] MEDS: Melatonin 3 MG TABLET 6 MG PO (20:46)
[2024-06-12] MEDS: busPIRone HCl 5 MG TABLET 15 MG PO (20:46)
[2024-06-13] VITALS (8 sets, daily range): BP systolic 98–121; BP diastolic 57–60; PULSE 58–75; RESP 16–20; TEMP 26–36.1; O2SAT 97–100
[2024-06-13] MEDS: Omeprazole 20 MG CAPSULE.DR PO (05:42)
--- NOTE | 2024-06-13 08:56 | HO.PM.IMPN ---
Subjective Subjective Date of Service: 06/13/24 Interval History: the patient was seen and evaluated laying comfortable in bed No reported other overnight events. Physical Exam Vital Signs: Vital Signs: Last Vital Signs Temp 96.8 F 06/13/24 07:41 Pulse 58 06/13/24 07:41 Resp 16 06/13/24 07:41 BP 116/59 L 06/13/24 07:41 Pulse Ox 100 06/13/24 07:41 O2 Del Method Room Air 06/13/24 07:41 O2 Flow Rate 3 06/05/24 04:00 BMI result Body Mass Index 31.0 Const: Other: Constitutional : interactive, not in distress Cardiovascular : no JVP, no lower extremity edema Respiratory : bilateral chest movement, not in resp distress Gastrointestinal: soft, lax, Non tender Skin : Warm, Dry Neurological : Alert & oriented to self and place, No focal deficit Objective Data Active Medications Acetaminophen (Acetaminophen 325 Mg Tablet) 650 mg PO Q6H PRN PRN Reason: Pain, Mild 1-3,fever,headache Last Admin: 06/11/24 15:56 Dose: 650 mg Documented By: ADRYAN Amlodipine Besylate (Amlodipine Besylate 2.5 Mg Tablet) 2.5 mg PO DAILY [facility]; Protocol Last Admin: 06/12/24 08:25 Dose: 2.5 mg Documented By: GREGORY Apixaban (Apixaban 5 Mg Tablet) 5 mg PO BID [facility] Last Admin: 06/12/24 20:45 Dose: 5 mg Documented By: SANYA Buspirone HCl (Buspirone Hcl 10 Mg Tablet) 10 mg PO DAILY [facility] Last Admin: 06/12/24 08:25 Dose: 10 mg Documented By: GREGORY Buspirone HCl (Buspirone Hcl 5 Mg Tablet) 15 mg PO BEDTIME [facility] Last Admin: 06/12/24 20:46 Dose: 15 mg Documented By: SANYA Calcium Carbonate (Calcium Carbonate 750 Mg Tab.Chew) 750 mg PO Q4H PRN PRN Reason: Heartburn Divalproex Sodium (Divalproex Sodium 500 Mg Tablet.Dr) 500 mg PO BEDTIME [facility] Last Admin: 06/12/24 20:46 Dose: 500 mg Documented By: SANYA Gabapentin (Gabapentin 100 Mg Capsule) 200 mg PO BID [facility] Last Admin: 06/12/24 20:46 Dose: 200 mg Documented By: SANYA Hydroxyzine HCl (Hydroxyzine Hcl 25 Mg Tablet) 25 mg PO Q8H PRN PRN Reason: Anxiety Last Admin: 06/07/24 19:16 Dose: 25 mg Documented By: SANYA Ibuprofen (Ibuprofen 400 Mg Tablet) 400 mg PO TIDWM PRN PRN Reason: Pain, Moderate(Pain Scale 4-6) Last Admin: 06/12/24 18:57 Dose: 400 mg Documented By: NESSA Loperamide HCl (Loperamide Hcl 2 Mg Capsule) 2 mg PO DAILY PRN PRN Reason: Diarrhea Magnesium Hydroxide (Milk Of Magnesia 30 Ml Oral.Susp) 30 ml PO DAILY PRN PRN Reason: Constipation Melatonin (Melatonin 3 Mg Tablet) 6 mg PO BEDTIME PRN PRN Reason: Insomnia Last Admin: 06/12/24 20:46 Dose: 6 mg Documented By: SANYA Metoprolol Tartrate (Metoprolol Tartrate 12.5 Mg Halftab) 12.5 mg PO BID [facility]; Protocol Last Admin: 06/12/24 20:46 Dose: 12.5 mg Documented By: SANYA Morphine Sulfate (Morphine Sulfate Immed Release 15 Mg Tablet) 15 mg PO Q6H PRN PRN Reason: Pain, Severe (Pain Scale 7-10) Last Admin: 06/12/24 21:24 Dose: 15 mg Documented By: SANYA Omeprazole (Omeprazole 20 Mg Capsule.Dr) 20 mg PO DAILY@0630 [facility] Last Admin: 06/13/24 05:42 Dose: 20 mg Documented By: SANYA Ondansetron HCl (Ondansetron Hcl 4 Mg/2 Ml Vial) 4 mg IVPUSH Q8H PRN PRN Reason: Nausea and Vomiting Senna (Sennosides 8.6 Mg Tablet) 17.2 mg PO BEDTIME PRN PRN Reason: constipation Simethicone (Simethicone 80 Mg Tab.Chew) 80 mg PO QIDWMHS PRN PRN Reason: Gas Sodium Chloride (0.9 % Sodium Chloride Flush 3 Ml Syringe) [facility] Last Admin: 06/12/24 22:22 Dose: Not Given Documented By: SANYA Non-Admin Reason: No Access Tamsulosin HCl (Tamsulosin Hcl 0.4 Mg Capsule) 0.4 mg PO DAILY [facility] Last Admin: 06/12/24 08:25 Dose: 0.4 mg Documented By: GREGORY Venlafaxine HCl (Venlafaxine Hcl Er 37.5 Mg Cap.Er.24h) 37.5 mg PO DAILY [facility] Last Admin: 06/12/24 08:25 Dose: 37.5 mg Documented By: GREGORY Venlafaxine HCl (Venlafaxine Hcl Er 150 Mg Cap.Er.24h) 150 mg PO DAILY [facility] Last Admin: 06/12/24 08:25 Dose: 150 mg Documented By: GREGORY Assessment and Plan (1) Cognitive impairment: Status: Acute Plan 78M PMH chronic atrial fibrillation, hypertension, cognitive impairment and GERD presentesd initially from home with worsening shortness of breath and anxiety. 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 He was recently discharged from [facility] and after 2 days returned to the hospital. unable to take care of himself. Chronic atrial fibrillation acceptable rate control on current therapies continue Eliquis Cognitive impairment stable on Buspar and Valproic acid with PRN Atarax Hypertension Amlodipine and Metoprolol DNR DNI Eliquis will need inpatient stay pending [facility] facility acceptance. Quality Stroke Does the patient have a stroke diagnosis?: No VTE Prior VTE?: Yes VTE Risk Level:: Medical - moderate - high VTE Device Contraindication: Treatment Not Indicated VTE Drug Contraindication: N/A - Med Ordered
[2024-06-13] MEDS: Apixaban 5 MG TABLET PO ×2 (09:18→20:04)
[2024-06-13] MEDS: Tamsulosin HCL 0.4 MG CAPSULE PO (09:18)
[2024-06-13] MEDS: Venlafaxine HCl ER 37.5 MG CAP.ER.24H PO (09:18)
[2024-06-13] MEDS: Metoprolol Tartrate 12.5 MG HALFTAB PO ×2 (09:18→20:04)
[2024-06-13] MEDS: Gabapentin 100 MG CAPSULE 200 MG PO ×2 (09:18→20:03)
[2024-06-13] MEDS: amLODIPine Besylate 2.5 MG TABLET PO (09:18)
[2024-06-13] MEDS: busPIRone HCl 10 MG TABLET PO (09:18)
[2024-06-13] MEDS: Venlafaxine HCl ER 150 MG CAP.ER.24H PO (09:19)
[2024-06-13] MEDS: Morphine Sulfate Immed Release 15 MG TABLET PO ×2 (13:50→21:21)
[2024-06-13] MEDS: Ibuprofen 400 MG TABLET PO (15:18)
[2024-06-13] MEDS: busPIRone HCl 5 MG TABLET 15 MG PO (20:03)
[2024-06-13] MEDS: Acetaminophen 325 MG TABLET 650 MG PO (20:03)
[2024-06-13] MEDS: Divalproex Sodium 500 MG TABLET.DR PO (20:04)
[2024-06-13] MEDS: hydrOXYzine HCL 25 MG TABLET PO (21:22)
[2024-06-13] MEDS: Melatonin 3 MG TABLET 6 MG PO (21:22)
[2024-06-14 01:48] VITALS: BP 146/71; PULSE 69; RESP 17; TEMP 36.1; O2SAT 96
[2024-06-14] MEDS: Omeprazole 20 MG CAPSULE.DR PO (06:12)
[2024-06-14 07:53] VITALS: BP 117/58; PULSE 63; RESP 16; TEMP 36.1; O2SAT 99
[2024-06-14] MEDS: Metoprolol Tartrate 12.5 MG HALFTAB PO ×2 (08:37→20:59)
[2024-06-14] MEDS: Gabapentin 100 MG CAPSULE 200 MG PO ×2 (08:37→20:54)
[2024-06-14] MEDS: Tamsulosin HCL 0.4 MG CAPSULE PO (08:37)
[2024-06-14] MEDS: Venlafaxine HCl ER 37.5 MG CAP.ER.24H PO (08:37)
[2024-06-14] MEDS: Venlafaxine HCl ER 150 MG CAP.ER.24H PO (08:37)
[2024-06-14 08:38] VITALS: BP 117/58
[2024-06-14] MEDS: busPIRone HCl 10 MG TABLET PO (08:38)
[2024-06-14] MEDS: amLODIPine Besylate 2.5 MG TABLET PO (08:38)
[2024-06-14] MEDS: Apixaban 5 MG TABLET PO ×2 (08:38→20:54)
--- NOTE | 2024-06-14 09:52 | HO.PM.IMPN ---
Subjective Subjective Date of Service: 06/14/24 Interval History: the patient was seen and evaluated laying comfortable in bed No reported other overnight events. Physical Exam Vital Signs: Vital Signs: Last Vital Signs Temp 96.9 F 06/14/24 07:53 Pulse 63 06/14/24 07:53 Resp 16 06/14/24 07:53 BP 117/58 L 06/14/24 08:38 Pulse Ox 99 06/14/24 07:53 O2 Del Method Room Air 06/14/24 07:53 O2 Flow Rate 3 06/05/24 04:00 BMI result Body Mass Index 31.0 Const: Other: Constitutional : interactive, not in distress Cardiovascular : no JVP, no lower extremity edema Respiratory : bilateral chest movement, not in resp distress Gastrointestinal: soft, lax, Non tender Skin : Warm, Dry Neurological : Alert & oriented to self and place, No focal deficit Objective Data Active Medications Acetaminophen (Acetaminophen 325 Mg Tablet) 650 mg PO Q6H PRN PRN Reason: Pain, Mild 1-3,fever,headache Last Admin: 06/13/24 20:03 Dose: 650 mg Documented By: SANYA Amlodipine Besylate (Amlodipine Besylate 2.5 Mg Tablet) 2.5 mg PO DAILY [facility]; Protocol Last Admin: 06/14/24 08:38 Dose: 2.5 mg Documented By: CIPRIANO Apixaban (Apixaban 5 Mg Tablet) 5 mg PO BID [facility] Last Admin: 06/14/24 08:38 Dose: 5 mg Documented By: CIPRIANO Buspirone HCl (Buspirone Hcl 10 Mg Tablet) 10 mg PO DAILY [facility] Last Admin: 06/14/24 08:38 Dose: 10 mg Documented By: CIPRIANO Buspirone HCl (Buspirone Hcl 5 Mg Tablet) 15 mg PO BEDTIME [facility] Last Admin: 06/13/24 20:03 Dose: 15 mg Documented By: SANYA Calcium Carbonate (Calcium Carbonate 750 Mg Tab.Chew) 750 mg PO Q4H PRN PRN Reason: Heartburn Divalproex Sodium (Divalproex Sodium 500 Mg Tablet.Dr) 500 mg PO BEDTIME [facility] Last Admin: 06/13/24 20:04 Dose: 500 mg Documented By: SANYA Gabapentin (Gabapentin 100 Mg Capsule) 200 mg PO BID [facility] Last Admin: 06/14/24 08:37 Dose: 200 mg Documented By: CIPRIANO Hydroxyzine HCl (Hydroxyzine Hcl 25 Mg Tablet) 25 mg PO Q8H PRN PRN Reason: Anxiety Last Admin: 06/13/24 21:22 Dose: 25 mg Documented By: SANYA Ibuprofen (Ibuprofen 400 Mg Tablet) 400 mg PO TIDWM PRN PRN Reason: Pain, Moderate(Pain Scale 4-6) Last Admin: 06/13/24 15:18 Dose: 400 mg Documented By: CIPRIANO Loperamide HCl (Loperamide Hcl 2 Mg Capsule) 2 mg PO DAILY PRN PRN Reason: Diarrhea Magnesium Hydroxide (Milk Of Magnesia 30 Ml Oral.Susp) 30 ml PO DAILY PRN PRN Reason: Constipation Melatonin (Melatonin 3 Mg Tablet) 6 mg PO BEDTIME PRN PRN Reason: Insomnia Last Admin: 06/13/24 21:22 Dose: 6 mg Documented By: SANYA Metoprolol Tartrate (Metoprolol Tartrate 12.5 Mg Halftab) 12.5 mg PO BID [facility]; Protocol Last Admin: 06/14/24 08:37 Dose: 12.5 mg Documented By: CIPRIANO Morphine Sulfate (Morphine Sulfate Immed Release 15 Mg Tablet) 15 mg PO Q6H PRN PRN Reason: Pain, Severe (Pain Scale 7-10) Last Admin: 06/13/24 21:21 Dose: 15 mg Documented By: SANYA Omeprazole (Omeprazole 20 Mg Capsule.Dr) 20 mg PO DAILY@0630 [facility] Last Admin: 06/14/24 06:12 Dose: 20 mg Documented By: JONES Ondansetron HCl (Ondansetron Hcl 4 Mg/2 Ml Vial) 4 mg IVPUSH Q8H PRN PRN Reason: Nausea and Vomiting Senna (Sennosides 8.6 Mg Tablet) 17.2 mg PO BEDTIME PRN PRN Reason: constipation Simethicone (Simethicone 80 Mg Tab.Chew) 80 mg PO QIDWMHS PRN PRN Reason: Gas Sodium Chloride (0.9 % Sodium Chloride Flush 3 Ml Syringe) 3 ml IVFLUSH QSHIFT [facility] Last Admin: 06/14/24 07:19 Dose: Not Given Documented By: CIPRIANO Non-Admin Reason: No Access Tamsulosin HCl (Tamsulosin Hcl 0.4 Mg Capsule) 0.4 mg PO DAILY [facility] Last Admin: 06/14/24 08:37 Dose: 0.4 mg Documented By: CIPRIANO Venlafaxine HCl (Venlafaxine Hcl Er 37.5 Mg Cap.Er.24h) 37.5 mg PO DAILY [facility] Last Admin: 06/14/24 08:37 Dose: 37.5 mg Documented By: CIPRIANO Venlafaxine HCl (Venlafaxine Hcl Er 150 Mg Cap.Er.24h) 150 mg PO DAILY [facility] Last Admin: 06/14/24 08:37 Dose: 150 mg Documented By: CIPRIANO Assessment and Plan (1) Cognitive impairment: Status: Acute Plan 78M PMH chronic atrial fibrillation, hypertension, cognitive impairment and GERD presentesd initially from home with worsening shortness of breath and anxiety. 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 He was recently discharged from [facility] and after 2 days returned to the hospital. unable to take care of himself. Chronic atrial fibrillation acceptable rate control on current therapies continue Eliquis Cognitive impairment stable on Buspar and Valproic acid with PRN Atarax Hypertension Amlodipine and Metoprolol DNR DNI Eliquis will need inpatient stay pending [facility] facility acceptance. Quality Stroke Does the patient have a stroke diagnosis?: No VTE Prior VTE?: Yes VTE Risk Level:: Medical - moderate - high VTE Device Contraindication: Treatment Not Indicated VTE Drug Contraindication: N/A - Med Ordered
[2024-06-14 15:16] VITALS: BP 113/75; PULSE 68; RESP 20; TEMP 36; O2SAT 98
[2024-06-14] MEDS: Morphine Sulfate Immed Release 15 MG TABLET PO (17:51)
[2024-06-14 19:21] VITALS: BP 97/52; PULSE 73; RESP 20; TEMP 36.3; O2SAT 99
[2024-06-14] MEDS: busPIRone HCl 5 MG TABLET 15 MG PO (20:54)
[2024-06-14] MEDS: Divalproex Sodium 500 MG TABLET.DR PO (20:54)
[2024-06-15 03:18] VITALS: BP 113/66; PULSE 60; RESP 18; TEMP 36; O2SAT 98
--- NOTE | 2024-06-15 05:32 | PM.EVENT ---
Event Note Date of Service: 06/15/24 Event Note: As per the nurse, patient had an unwitnessed fall. He was seen sitting on the floor. He denies loss of consciousness or chest pain prior to the fall. Did not hit his head. He was at the edge of the bed using his urinal and apparently slipped. Will obtain b/l hip xray. Time Spent With Patient Time: Total time managing care of this patient today ____ minutes.
--- NOTE | 2024-06-15 07:11 | PC.NURSE ---
This RN heard yelling in the room for nurse , pt found to be sitting up right on the floor next to bed, with urine on the floor, & wet socks. Pt denies head strike or loss of consciousness, reports some right wrist pain. Pt told to stay where he is, and not to move, as i do an assessment, no changes in neuro from prior assessment, pt stated his name & birthdate. No trauma noted to head or skin, no visible fractures or open wounds noted. With SHEILA Morris's assistance, to help pt stand and pivot into recliner. Dr. Angeles made aware and at bedside, X-ray orders placed. High fall precautions in place, camera in room.
[2024-06-15] MEDS: Omeprazole 20 MG CAPSULE.DR PO (07:17)
[2024-06-15 07:25] VITALS: BP 96/57; PULSE 64; RESP 16; TEMP 36; O2SAT 97
--- NOTE | 2024-06-15 08:51 | HO.PM.IMPN ---
Subjective Subjective Date of Service: 06/15/24 Interval History: fell early this am, did not LOC, no head strike Physical Exam Vital Signs: Vital Signs: Last Vital Signs Temp 96.8 F 06/15/24 07:25 Pulse 64 06/15/24 07:25 Resp 16 06/15/24 07:25 BP 96/57 L 06/15/24 07:25 Pulse Ox 97 06/15/24 07:25 O2 Del Method Room Air 06/15/24 07:25 O2 Flow Rate 3 06/05/24 04:00 BMI result Body Mass Index 31.0 Const: Other: Constitutional : interactive, not in distress Cardiovascular : no JVP, no lower extremity edema Respiratory : bilateral chest movement, not in resp distress Gastrointestinal: soft, lax, Non tender Skin : Warm, Dry Neurological : Alert & oriented to self and place, No focal deficit Objective Data Active Medications Acetaminophen (Acetaminophen 325 Mg Tablet) 650 mg PO Q6H PRN PRN Reason: Pain, Mild 1-3,fever,headache Last Admin: 06/13/24 20:03 Dose: 650 mg Documented By: SANYA Amlodipine Besylate (Amlodipine Besylate 2.5 Mg Tablet) 2.5 mg PO DAILY [facility]; Protocol Last Admin: 06/14/24 08:38 Dose: 2.5 mg Documented By: CIPRIANO Apixaban (Apixaban 5 Mg Tablet) 5 mg PO BID [facility] Last Admin: 06/14/24 20:54 Dose: 5 mg Documented By: BART Buspirone HCl (Buspirone Hcl 10 Mg Tablet) 10 mg PO DAILY [facility] Last Admin: 06/14/24 08:38 Dose: 10 mg Documented By: CIPRIANO Buspirone HCl (Buspirone Hcl 5 Mg Tablet) 15 mg PO BEDTIME [facility] Last Admin: 06/14/24 20:54 Dose: 15 mg Documented By: BART Calcium Carbonate (Calcium Carbonate 750 Mg Tab.Chew) 750 mg PO Q4H PRN PRN Reason: Heartburn Divalproex Sodium (Divalproex Sodium 500 Mg Tablet.Dr) 500 mg PO BEDTIME [facility] Last Admin: 06/14/24 20:54 Dose: 500 mg Documented By: BART Gabapentin (Gabapentin 100 Mg Capsule) 200 mg PO BID [facility] Last Admin: 06/14/24 20:54 Dose: 200 mg Documented By: BART Hydroxyzine HCl (Hydroxyzine Hcl 25 Mg Tablet) 25 mg PO Q8H PRN PRN Reason: Anxiety Last Admin: 06/13/24 21:22 Dose: 25 mg Documented By: SANYA Ibuprofen (Ibuprofen 400 Mg Tablet) 400 mg PO TIDWM PRN PRN Reason: Pain, Moderate(Pain Scale 4-6) Last Admin: 06/13/24 15:18 Dose: 400 mg Documented By: CIPRIANO Loperamide HCl (Loperamide Hcl 2 Mg Capsule) 2 mg PO DAILY PRN PRN Reason: Diarrhea Magnesium Hydroxide (Milk Of Magnesia 30 Ml Oral.Susp) 30 ml PO DAILY PRN PRN Reason: Constipation Melatonin (Melatonin 3 Mg Tablet) 6 mg PO BEDTIME PRN PRN Reason: Insomnia Last Admin: 06/13/24 21:22 Dose: 6 mg Documented By: SANYA Metoprolol Tartrate (Metoprolol Tartrate 12.5 Mg Halftab) 12.5 mg PO BID [facility]; Protocol Last Admin: 06/14/24 20:59 Dose: 12.5 mg Documented By: BART Morphine Sulfate (Morphine Sulfate Immed Release 15 Mg Tablet) 15 mg PO Q6H PRN PRN Reason: Pain, Severe (Pain Scale 7-10) Last Admin: 06/14/24 17:51 Dose: 15 mg Documented By: CIPRIANO Omeprazole (Omeprazole 20 Mg Capsule.Dr) 20 mg PO DAILY@0630 [facility] Last Admin: 06/15/24 07:17 Dose: 20 mg Documented By: CIPRIANO Ondansetron HCl (Ondansetron Hcl 4 Mg/2 Ml Vial) 4 mg IVPUSH Q8H PRN PRN Reason: Nausea and Vomiting Senna (Sennosides 8.6 Mg Tablet) 17.2 mg PO BEDTIME PRN PRN Reason: constipation Simethicone (Simethicone 80 Mg Tab.Chew) 80 mg PO QIDWMHS PRN PRN Reason: Gas Sodium Chloride (0.9 % Sodium Chloride Flush 3 Ml Syringe) 3 ml IVFLUSH [facility] Last Admin: 06/15/24 07:07 Dose: Not Given Documented By: CIPRIANO Non-Admin Reason: No Access Tamsulosin HCl (Tamsulosin Hcl 0.4 Mg Capsule) 0.4 mg PO DAILY [facility] Last Admin: 06/14/24 08:37 Dose: 0.4 mg Documented By: CIPRIANO Venlafaxine HCl (Venlafaxine Hcl Er 37.5 Mg Cap.Er.24h) 37.5 mg PO DAILY [facility] Last Admin: 06/14/24 08:37 Dose: 37.5 mg Documented By: CIPRIANO Venlafaxine HCl (Venlafaxine Hcl Er 150 Mg Cap.Er.24h) 150 mg PO DAILY [facility] Last Admin: 06/14/24 08:37 Dose: 150 mg Documented By: CIPRIANO Assessment and Plan (1) Cognitive impairment: Status: Acute Plan 78M PMH chronic atrial fibrillation, hypertension, cognitive impairment and GERD presentesd initially from home with worsening shortness of breath and anxiety. 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 He was recently discharged from [facility] and after 2 days returned to the hospital. unable to take care of himself. fall trauma work up negative Chronic atrial fibrillation acceptable rate control on current therapies continue Eliquis Cognitive impairment stable on Buspar and Valproic acid with PRN Atarax Hypertension Amlodipine and Metoprolol DNR DNI Eliquis will need inpatient stay pending intermediate facility acceptance. Quality Stroke Does the patient have a stroke diagnosis?: No VTE Prior VTE?: Yes VTE Risk Level:: Medical - moderate - high VTE Device Contraindication: Treatment Not Indicated VTE Drug Contraindication: N/A - Med Ordered
[2024-06-15 09:21] VITALS: BP 123/62
[2024-06-15] MEDS: Morphine Sulfate Immed Release 15 MG TABLET PO (09:22)
[2024-06-15 09:23] VITALS: BP 123/62
[2024-06-15] MEDS: Gabapentin 100 MG CAPSULE 200 MG PO ×2 (09:23→20:10)
[2024-06-15] MEDS: Tamsulosin HCL 0.4 MG CAPSULE PO (09:23)
[2024-06-15] MEDS: busPIRone HCl 10 MG TABLET PO (09:23)
[2024-06-15] MEDS: amLODIPine Besylate 2.5 MG TABLET PO (09:23)
[2024-06-15] MEDS: Metoprolol Tartrate 12.5 MG HALFTAB PO ×2 (09:23→20:10)
[2024-06-15] MEDS: Apixaban 5 MG TABLET PO ×2 (09:23→20:11)
[2024-06-15] MEDS: Venlafaxine HCl ER 37.5 MG CAP.ER.24H PO (09:24)
[2024-06-15] MEDS: Venlafaxine HCl ER 150 MG CAP.ER.24H PO (09:24)
[2024-06-15] MEDS: hydrOXYzine HCL 25 MG TABLET PO ×2 (13:42→21:57)
[2024-06-15 15:19] VITALS: BP 96/55; PULSE 64; RESP 16; TEMP 36; O2SAT 98
[2024-06-15 19:10] VITALS: BP 114/68; PULSE 78; RESP 16; TEMP 36.2; O2SAT 96
[2024-06-15] MEDS: Divalproex Sodium 500 MG TABLET.DR PO (20:10)
[2024-06-15] MEDS: busPIRone HCl 5 MG TABLET 15 MG PO (20:11)
[2024-06-15] MEDS: Melatonin 3 MG TABLET 6 MG PO (21:57)
[2024-06-16 03:33] VITALS: BP 112/60; PULSE 58; RESP 16; TEMP 36.1; O2SAT 94
[2024-06-16] MEDS: Omeprazole 20 MG CAPSULE.DR PO (06:38)
[2024-06-16 07:24] VITALS: BP 114/64; PULSE 55; RESP 20; TEMP 36.1; O2SAT 98
--- NOTE | 2024-06-16 08:25 | HO.PM.IMPN ---
Subjective Subjective Date of Service: 06/16/24 Interval History: No new complaints Physical Exam Vital Signs: Vital Signs: Last Vital Signs Temp 96.9 F 06/16/24 07:24 Pulse 55 06/16/24 07:24 Resp 20 06/16/24 07:24 BP 114/64 06/16/24 07:24 Pulse Ox 98 06/16/24 07:24 O2 Del Method Room Air 06/16/24 07:24 O2 Flow Rate 3 06/05/24 04:00 BMI result Body Mass Index 31.0 Const: Other: Constitutional : interactive, not in distress Cardiovascular : no JVP, no lower extremity edema Respiratory : bilateral chest movement, not in resp distress Gastrointestinal: soft, lax, Non tender Skin : Warm, Dry Neurological : Alert & oriented to self and place, No focal deficit Objective Data Active Medications Acetaminophen (Acetaminophen 325 Mg Tablet) 650 mg PO Q6H PRN PRN Reason: Pain, Mild 1-3,fever,headache Last Admin: 06/13/24 20:03 Dose: 650 mg Documented By: SANYA Amlodipine Besylate (Amlodipine Besylate 2.5 Mg Tablet) 2.5 mg PO DAILY [facility]; Protocol Last Admin: 06/15/24 09:23 Dose: 2.5 mg Documented By: CIPRIANO Apixaban (Apixaban 5 Mg Tablet) 5 mg PO BID [facility] Last Admin: 06/15/24 20:11 Dose: 5 mg Documented By: BART Buspirone HCl (Buspirone Hcl 10 Mg Tablet) 10 mg PO DAILY [facility] Last Admin: 06/15/24 09:23 Dose: 10 mg Documented By: CIPRIANO Buspirone HCl (Buspirone Hcl 5 Mg Tablet) 15 mg PO BEDTIME [facility] Last Admin: 06/15/24 20:11 Dose: 15 mg Documented By: BART Calcium Carbonate (Calcium Carbonate 750 Mg Tab.Chew) 750 mg PO Q4H PRN PRN Reason: Heartburn Divalproex Sodium (Divalproex Sodium 500 Mg Tablet.Dr) 500 mg PO BEDTIME [facility] Last Admin: 06/15/24 20:10 Dose: 500 mg Documented By: BART Gabapentin (Gabapentin 100 Mg Capsule) 200 mg PO BID [facility] Last Admin: 06/15/24 20:10 Dose: 200 mg Documented By: BART Hydroxyzine HCl (Hydroxyzine Hcl 25 Mg Tablet) 25 mg PO Q8H PRN PRN Reason: Anxiety Last Admin: 06/15/24 21:57 Dose: 25 mg Documented By: BART Ibuprofen (Ibuprofen 400 Mg Tablet) 400 mg PO TIDWM PRN PRN Reason: Pain, Moderate(Pain Scale 4-6) Last Admin: 06/13/24 15:18 Dose: 400 mg Documented By: CIPRIANO Loperamide HCl (Loperamide Hcl 2 Mg Capsule) 2 mg PO DAILY PRN PRN Reason: Diarrhea Magnesium Hydroxide (Milk Of Magnesia 30 Ml Oral.Susp) 30 ml PO DAILY PRN PRN Reason: Constipation Melatonin (Melatonin 3 Mg Tablet) 6 mg PO BEDTIME PRN PRN Reason: Insomnia Last Admin: 06/15/24 21:57 Dose: 6 mg Documented By: BART Metoprolol Tartrate (Metoprolol Tartrate 12.5 Mg Halftab) 12.5 mg PO BID [facility]; Protocol Last Admin: 06/15/24 20:10 Dose: 12.5 mg Documented By: BART Morphine Sulfate (Morphine Sulfate Immed Release 15 Mg Tablet) 15 mg PO Q6H PRN PRN Reason: Pain, Severe (Pain Scale 7-10) Last Admin: 06/15/24 09:22 Dose: 15 mg Documented By: CIPRIANO Omeprazole (Omeprazole 20 Mg Capsule.Dr) 20 mg PO DAILY@0630 [facility] Last Admin: 06/16/24 06:38 Dose: 20 mg Documented By: BART Ondansetron HCl (Ondansetron Hcl 4 Mg/2 Ml Vial) 4 mg IVPUSH Q8H PRN PRN Reason: Nausea and Vomiting Senna (Sennosides 8.6 Mg Tablet) 17.2 mg PO BEDTIME PRN PRN Reason: constipation Simethicone (Simethicone 80 Mg Tab.Chew) 80 mg PO QIDWMHS PRN PRN Reason: Gas Sodium Chloride (0.9 % Sodium Chloride Flush 3 Ml Syringe) 3 ml IVFLUSH [facility] Last Admin: 06/16/24 07:31 Dose: Not Given Documented By: ADRYAN Non-Admin Reason: No Access Tamsulosin HCl (Tamsulosin Hcl 0.4 Mg Capsule) 0.4 mg PO DAILY [facility] Last Admin: 06/15/24 09:23 Dose: 0.4 mg Documented By: CIPRIANO Venlafaxine HCl (Venlafaxine Hcl Er 37.5 Mg Cap.Er.24h) 37.5 mg PO DAILY [facility] Last Admin: 06/15/24 09:24 Dose: 37.5 mg Documented By: CIPRIANO Venlafaxine HCl (Venlafaxine Hcl Er 150 Mg Cap.Er.24h) 150 mg PO DAILY [facility] Last Admin: 06/15/24 09:24 Dose: 150 mg Documented By: CIPRIANO Assessment and Plan (1) Cognitive impairment: Status: Acute Plan 78M PMH chronic atrial fibrillation, hypertension, cognitive impairment and GERD presentesd initially from home with worsening shortness of breath and anxiety. 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 He was recently discharged from [facility] and after 2 days returned to the hospital. unable to take care of himself. fall trauma work up negative Chronic atrial fibrillation acceptable rate control on current therapies continue Eliquis Cognitive impairment stable on Buspar and Valproic acid with PRN Atarax Hypertension Amlodipine and Metoprolol DNR DNI Eliquis will need inpatient stay pending [facility] facility acceptance. Quality Stroke Does the patient have a stroke diagnosis?: No VTE Prior VTE?: Yes VTE Risk Level:: Medical - moderate - high VTE Device Contraindication: Treatment Not Indicated VTE Drug Contraindication: N/A - Med Ordered
[2024-06-16] MEDS: busPIRone HCl 10 MG TABLET PO (09:28)
[2024-06-16] MEDS: Gabapentin 100 MG CAPSULE 200 MG PO ×2 (09:28→19:40)
[2024-06-16] MEDS: Apixaban 5 MG TABLET PO ×2 (09:28→19:41)
[2024-06-16] MEDS: Metoprolol Tartrate 12.5 MG HALFTAB PO ×2 (09:28→19:40)
[2024-06-16] MEDS: Tamsulosin HCL 0.4 MG CAPSULE PO (09:28)
[2024-06-16] MEDS: Venlafaxine HCl ER 37.5 MG CAP.ER.24H PO (09:28)
[2024-06-16] MEDS: Venlafaxine HCl ER 150 MG CAP.ER.24H PO (09:28)
[2024-06-16 09:29] VITALS: BP 115/63; PULSE 71
[2024-06-16] MEDS: amLODIPine Besylate 2.5 MG TABLET PO (09:29)
[2024-06-16] MEDS: hydrOXYzine HCL 25 MG TABLET PO ×2 (13:32→21:39)
[2024-06-16] MEDS: Morphine Sulfate Immed Release 15 MG TABLET PO (13:35)
[2024-06-16 16:00] VITALS: BP 113/66; PULSE 63; RESP 16; TEMP 36.6; O2SAT 96
[2024-06-16] MEDS: busPIRone HCl 5 MG TABLET 15 MG PO (19:40)
[2024-06-16] MEDS: Divalproex Sodium 500 MG TABLET.DR PO (19:41)
[2024-06-16] MEDS: Melatonin 3 MG TABLET 6 MG PO (19:41)
[2024-06-16 19:53] VITALS: BP 103/62; PULSE 78; RESP 20; TEMP 36; O2SAT 97
[2024-06-16 23:22] VITALS: BP 99/56; PULSE 60; RESP 17; TEMP 36.1; O2SAT 93
[2024-06-17] MEDS: Omeprazole 20 MG CAPSULE.DR PO (06:20)
[2024-06-17 07:44] VITALS: BP 118/71; PULSE 57; RESP 14; TEMP 36.3; O2SAT 100
--- NOTE | 2024-06-17 08:58 | P.PNIM_ITS ---
Subjective Subjective Date of Service: 06/17/24 Interval History: No new complaints Physical Exam Vital Signs: Vital Signs: Last Vital Signs Temp 97.4 F 06/17/24 07:44 Pulse 57 06/17/24 07:44 Resp 14 06/17/24 07:44 BP 118/71 06/17/24 07:44 Pulse Ox 100 06/17/24 07:44 O2 Del Method Room Air 06/17/24 07:44 O2 Flow Rate 3 06/05/24 04:00 BMI result Body Mass Index 31.0 Const: Other: Constitutional : interactive, not in distress Cardiovascular : no JVP, no lower extremity edema Respiratory : bilateral chest movement, not in resp distress Gastrointestinal: soft, lax, Non tender Skin : Warm, Dry Neurological : Alert & oriented to self and place, No focal deficit Objective Data Active Medications Acetaminophen (Acetaminophen 325 Mg Tablet) 650 mg PO Q6H PRN PRN Reason: Pain, Mild 1-3,fever,headache Last Admin: 06/13/24 20:03 Dose: 650 mg Documented By: SANYA Amlodipine Besylate (Amlodipine Besylate 2.5 Mg Tablet) 2.5 mg PO DAILY [facility]; Protocol Last Admin: 06/16/24 09:29 Dose: 2.5 mg Documented By: ADRYAN Apixaban (Apixaban 5 Mg Tablet) 5 mg PO BID [facility] Last Admin: 06/16/24 19:41 Dose: 5 mg Documented By: ELLEN Buspirone HCl (Buspirone Hcl 10 Mg Tablet) 10 mg PO DAILY [facility] Last Admin: 06/16/24 09:28 Dose: 10 mg Documented By: ADRYAN Buspirone HCl (Buspirone Hcl 5 Mg Tablet) 15 mg PO BEDTIME [facility] Last Admin: 06/16/24 19:40 Dose: 15 mg Documented By: ELLEN Calcium Carbonate (Calcium Carbonate 750 Mg Tab.Chew) 750 mg PO Q4H PRN PRN Reason: Heartburn Divalproex Sodium (Divalproex Sodium 500 Mg Tablet.Dr) 500 mg PO BEDTIME [facility] Last Admin: 06/16/24 19:41 Dose: 500 mg Documented By: ELLEN Gabapentin (Gabapentin 100 Mg Capsule) 200 mg PO BID [facility] Last Admin: 06/16/24 19:40 Dose: 200 mg Documented By: ELLEN Hydroxyzine HCl (Hydroxyzine Hcl 25 Mg Tablet) 25 mg PO Q8H PRN PRN Reason: Anxiety Last Admin: 06/16/24 21:39 Dose: 25 mg Documented By: ELLEN Ibuprofen (Ibuprofen 400 Mg Tablet) 400 mg PO TIDWM PRN PRN Reason: Pain, Moderate(Pain Scale 4-6) Last Admin: 06/13/24 15:18 Dose: 400 mg Documented By: CIPRIANO Loperamide HCl (Loperamide Hcl 2 Mg Capsule) 2 mg PO DAILY PRN PRN Reason: Diarrhea Magnesium Hydroxide (Milk Of Magnesia 30 Ml Oral.Susp) 30 ml PO DAILY PRN PRN Reason: Constipation Melatonin (Melatonin 3 Mg Tablet) 6 mg PO BEDTIME PRN PRN Reason: Insomnia Last Admin: 06/16/24 19:41 Dose: 6 mg Documented By: ELLEN Metoprolol Tartrate (Metoprolol Tartrate 12.5 Mg Halftab) 12.5 mg PO BID [facility]; Protocol Last Admin: 06/16/24 19:40 Dose: 12.5 mg Documented By: ELLEN Morphine Sulfate (Morphine Sulfate Immed Release 15 Mg Tablet) 15 mg PO Q6H PRN PRN Reason: Pain, Severe (Pain Scale 7-10) Last Admin: 06/16/24 13:35 Dose: 15 mg Documented By: ADRYAN Omeprazole (Omeprazole 20 Mg Capsule.Dr) 20 mg PO DAILY@0630 [facility] Last Admin: 06/17/24 06:20 Dose: 20 mg Documented By: ELLEN Ondansetron HCl (Ondansetron Hcl 4 Mg/2 Ml Vial) 4 mg IVPUSH Q8H PRN PRN Reason: Nausea and Vomiting Senna (Sennosides 8.6 Mg Tablet) 17.2 mg PO BEDTIME PRN PRN Reason: constipation Simethicone (Simethicone 80 Mg Tab.Chew) 80 mg PO QIDWMHS PRN PRN Reason: Gas Sodium Chloride (0.9 % Sodium Chloride Flush 3 Ml Syringe) 3 ml IVFLUSH [facility] Last Admin: 06/16/24 19:41 Dose: Not Given Documented By: ELLEN Non-Admin Reason: No Access Tamsulosin HCl (Tamsulosin Hcl 0.4 Mg Capsule) 0.4 mg PO DAILY [facility] Last Admin: 06/16/24 09:28 Dose: 0.4 mg Documented By: ADRYAN Venlafaxine HCl (Venlafaxine Hcl Er 37.5 Mg Cap.Er.24h) 37.5 mg PO DAILY [facility] Last Admin: 06/16/24 09:28 Dose: 37.5 mg Documented By: ADRYAN Venlafaxine HCl (Venlafaxine Hcl Er 150 Mg Cap.Er.24h) 150 mg PO DAILY [facility] Last Admin: 06/16/24 09:28 Dose: 150 mg Documented By: ADRYAN Assessment and Plan (1) Cognitive impairment: Status: Acute Plan 78M PMH chronic atrial fibrillation, hypertension, cognitive impairment and GERD presentesd initially from home with worsening shortness of breath and anxiety. 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 He was recently discharged from [facility] and after 2 days returned to the hospital. unable to take care of himself. fall trauma work up negative Chronic atrial fibrillation acceptable rate control on current therapies continue Eliquis Cognitive impairment stable on Buspar and Valproic acid with PRN Atarax Hypertension Amlodipine and Metoprolol DNR DNI Eliquis will need inpatient stay pending termite exterminator helper facility acceptance. Quality Stroke Does the patient have a stroke diagnosis?: No VTE Prior VTE?: Yes VTE Risk Level:: Medical - moderate - high VTE Device Contraindication: Treatment Not Indicated VTE Drug Contraindication: N/A - Med Ordered
[2024-06-17] MEDS: Venlafaxine HCl ER 150 MG CAP.ER.24H PO (10:28)
[2024-06-17] MEDS: amLODIPine Besylate 2.5 MG TABLET PO (10:28)
[2024-06-17] MEDS: Venlafaxine HCl ER 37.5 MG CAP.ER.24H PO (10:28)
[2024-06-17] MEDS: Gabapentin 100 MG CAPSULE 200 MG PO ×2 (10:28→20:20)
[2024-06-17] MEDS: busPIRone HCl 10 MG TABLET PO (10:29)
[2024-06-17] MEDS: Tamsulosin HCL 0.4 MG CAPSULE PO (10:29)
[2024-06-17] MEDS: Metoprolol Tartrate 12.5 MG HALFTAB PO ×2 (10:29→20:20)
[2024-06-17] MEDS: Apixaban 5 MG TABLET PO ×2 (10:29→20:19)
[2024-06-17 10:32] VITALS: BP 112/69; PULSE 70
[2024-06-17] MEDS: hydrOXYzine HCL 25 MG TABLET PO (10:36)
[2024-06-17] MEDS: Morphine Sulfate Immed Release 15 MG TABLET PO ×2 (12:10→21:23)
--- NOTE | 2024-06-17 14:44 | MHC.CM.PN ---
Addendum entered by Meagan Rees 06/17/24 15:25: Met with the patient to discuss discharge planning. The patient called Hermann Zaragoza with assist from CM. The calendar control clerk blood bank, Alejandro was contacted. 1 year of YES.TAP statements has been requested. The statements will be sent to [facility] ATTN: Case management. The patient also mentioned that he really wants to return to [facility]. He was notified that the SNF had not been responding to the referral. The plan is to speak with the forestry conservation worker @ the SNF tomorrow about admission. Makeda Merrill has been notified via TT that the YES.TAP statements are expected to be received 1-2 days via [employer]. CM will continue to follow. Original Note: Per MD rounds patient is ready to discharge to LTC. Killian Grimes met with the patient Saturday. A sister SNF in the [facility] may offer a bed.
[2024-06-17 15:15] VITALS: BP 109/58; PULSE 63; RESP 16; TEMP 36.4; O2SAT 95
--- NOTE | 2024-06-17 19:34 | PC.NURSE ---
Patient alert and oriented to self and place, confused on situation. Patient C/o bilateral shoulder pain, requested morphine. Patient was able to get up to the bedside commode with 2 assist. Compliant with medication and meals. Awaits LTC placement.
[2024-06-17] MEDS: Divalproex Sodium 500 MG TABLET.DR PO (20:20)
[2024-06-17] MEDS: busPIRone HCl 5 MG TABLET 15 MG PO (20:20)
[2024-06-17 20:23] VITALS: BP 113/63; PULSE 72
[2024-06-17] MEDS: Melatonin 3 MG TABLET 6 MG PO (21:23)
[2024-06-17 23:35] VITALS: BP 101/63; PULSE 64; RESP 16; TEMP 36; O2SAT 95
[2024-06-18] MEDS: Omeprazole 20 MG CAPSULE.DR PO (06:38)
[2024-06-18 07:18] VITALS: BP 113/67; PULSE 59; RESP 14; TEMP 36.1; O2SAT 94
--- NOTE | 2024-06-18 08:57 | HO.PM.IMPN ---
Subjective Subjective Date of Service: 06/18/24 Interval History: No new complaints Physical Exam Vital Signs: Vital Signs: Last Vital Signs Temp 96.9 F 06/18/24 07:18 Pulse 59 06/18/24 07:18 Resp 14 06/18/24 07:18 BP 113/67 06/18/24 07:18 Pulse Ox 94 06/18/24 07:18 O2 Del Method Room Air 06/18/24 07:18 O2 Flow Rate 3 06/05/24 04:00 BMI result Body Mass Index 31.0 Const: Other: Constitutional : interactive, not in distress Cardiovascular : no JVP, no lower extremity edema Respiratory : bilateral chest movement, not in resp distress Gastrointestinal: soft, lax, Non tender Skin : Warm, Dry Neurological : Alert & oriented to self and place, No focal deficit Objective Data Active Medications Acetaminophen (Acetaminophen 325 Mg Tablet) 650 mg PO Q6H PRN PRN Reason: Pain, Mild 1-3,fever,headache Last Admin: 06/13/24 20:03 Dose: 650 mg Documented By: SANYA Amlodipine Besylate (Amlodipine Besylate 2.5 Mg Tablet) 2.5 mg PO DAILY [facility]; Protocol Last Admin: 06/17/24 10:28 Dose: 2.5 mg Documented By: NEHEMIAH Apixaban (Apixaban 5 Mg Tablet) 5 mg PO BID [facility] Last Admin: 06/17/24 20:19 Dose: 5 mg Documented By: SANYA Buspirone HCl (Buspirone Hcl 10 Mg Tablet) 10 mg PO DAILY [facility] Last Admin: 06/17/24 10:29 Dose: 10 mg Documented By: NEHEMIAH Buspirone HCl (Buspirone Hcl 5 Mg Tablet) 15 mg PO BEDTIME [facility] Last Admin: 06/17/24 20:20 Dose: 15 mg Documented By: SANYA Calcium Carbonate (Calcium Carbonate 750 Mg Tab.Chew) 750 mg PO Q4H PRN PRN Reason: Heartburn Divalproex Sodium (Divalproex Sodium 500 Mg Tablet.Dr) 500 mg PO BEDTIME [facility] Last Admin: 06/17/24 20:20 Dose: 500 mg Documented By: SANYA Gabapentin (Gabapentin 100 Mg Capsule) 200 mg PO BID [facility] Last Admin: 06/17/24 20:20 Dose: 200 mg Documented By: SANYA Hydroxyzine HCl (Hydroxyzine Hcl 25 Mg Tablet) 25 mg PO Q8H PRN PRN Reason: Anxiety Last Admin: 06/17/24 10:36 Dose: 25 mg Documented By: NEHEMIAH Ibuprofen (Ibuprofen 400 Mg Tablet) 400 mg PO TIDWM PRN PRN Reason: Pain, Moderate(Pain Scale 4-6) Last Admin: 06/13/24 15:18 Dose: 400 mg Documented By: CIPRIANO Loperamide HCl (Loperamide Hcl 2 Mg Capsule) 2 mg PO DAILY PRN PRN Reason: Diarrhea Magnesium Hydroxide (Milk Of Magnesia 30 Ml Oral.Susp) 30 ml PO DAILY PRN PRN Reason: Constipation Melatonin (Melatonin 3 Mg Tablet) 6 mg PO BEDTIME PRN PRN Reason: Insomnia Last Admin: 06/17/24 21:23 Dose: 6 mg Documented By: SANYA Metoprolol Tartrate (Metoprolol Tartrate 12.5 Mg Halftab) 12.5 mg PO BID [facility]; Protocol Last Admin: 06/17/24 20:20 Dose: 12.5 mg Documented By: SANYA Morphine Sulfate (Morphine Sulfate Immed Release 15 Mg Tablet) 15 mg PO Q6H PRN PRN Reason: Pain, Severe (Pain Scale 7-10) Last Admin: 06/17/24 21:23 Dose: 15 mg Documented By: SANYA Omeprazole (Omeprazole 20 Mg Capsule.Dr) 20 mg PO DAILY@0630 [facility] Last Admin: 06/18/24 06:38 Dose: 20 mg Documented By: SANYA Ondansetron HCl (Ondansetron Hcl 4 Mg/2 Ml Vial) 4 mg IVPUSH Q8H PRN PRN Reason: Nausea and Vomiting Senna (Sennosides 8.6 Mg Tablet) 17.2 mg PO BEDTIME PRN PRN Reason: constipation Simethicone (Simethicone 80 Mg Tab.Chew) 80 mg PO QIDWMHS PRN PRN Reason: Gas Sodium Chloride (0.9 % Sodium Chloride Flush 3 Ml Syringe) [facility] Last Admin: 06/17/24 21:57 Dose: Not Given Documented By: SANYA Non-Admin Reason: No Access Tamsulosin HCl (Tamsulosin Hcl 0.4 Mg Capsule) 0.4 mg PO DAILY [facility] Last Admin: 06/17/24 10:29 Dose: 0.4 mg Documented By: NEHEMIAH Venlafaxine HCl (Venlafaxine Hcl Er 37.5 Mg Cap.Er.24h) 37.5 mg PO DAILY [facility] Last Admin: 06/17/24 10:28 Dose: 37.5 mg Documented By: NEHEMIAH Venlafaxine HCl (Venlafaxine Hcl Er 150 Mg Cap.Er.24h) 150 mg PO DAILY [facility] Last Admin: 06/17/24 10:28 Dose: 150 mg Documented By: NEHEMIAH Assessment and Plan (1) Cognitive impairment: Status: Acute Plan 78M PMH chronic atrial fibrillation, hypertension, cognitive impairment and GERD presentesd initially from home with worsening shortness of breath and anxiety. 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 He was recently discharged from [facility] and after 2 days returned to the hospital. unable to take care of himself. fall trauma work up negative Chronic atrial fibrillation acceptable rate control on current therapies continue Eliquis Cognitive impairment stable on Buspar and Valproic acid with PRN Atarax Hypertension Amlodipine and Metoprolol DNR DNI Eliquis will need inpatient stay pending supervisor intermediates facility acceptance. Quality Stroke Does the patient have a stroke diagnosis?: No VTE Prior VTE?: Yes VTE Risk Level:: Medical - moderate - high VTE Device Contraindication: Treatment Not Indicated VTE Drug Contraindication: N/A - Med Ordered
[2024-06-18] MEDS: Tamsulosin HCL 0.4 MG CAPSULE PO (09:15)
[2024-06-18] MEDS: Venlafaxine HCl ER 150 MG CAP.ER.24H PO (09:15)
[2024-06-18] MEDS: amLODIPine Besylate 2.5 MG TABLET PO (09:15)
[2024-06-18] MEDS: Gabapentin 100 MG CAPSULE 200 MG PO ×2 (09:15→20:29)
[2024-06-18] MEDS: Apixaban 5 MG TABLET PO ×2 (09:15→20:29)
[2024-06-18] MEDS: busPIRone HCl 10 MG TABLET PO (09:15)
[2024-06-18] MEDS: Venlafaxine HCl ER 37.5 MG CAP.ER.24H PO (09:15)
[2024-06-18] MEDS: Metoprolol Tartrate 12.5 MG HALFTAB PO ×2 (09:15→20:30)
[2024-06-18 09:17] VITALS: PULSE 72
[2024-06-18] MEDS: Morphine Sulfate Immed Release 15 MG TABLET PO (09:53)
--- NOTE | 2024-06-18 12:21 | MHC.CM.PN ---
Spoke with Miguel Bowers this am, at pts request. She was notified that the patient really wants to return for LTC. She was notified that [facility] anticipates receiving 1 yr of bank statements. She said that she was concerned about a care her purchased from [employer]. She stated that she would call Ottoniel to speak with him about the car.
--- NOTE | 2024-06-18 12:26 | MHC.CM.PN ---
CM SPOKE WITH HCP/FRIEND JARET JUANITA. JARET WAS ABLE TO PROVIDE INFORMATION ON PT'S CAR. CAR IS BRAND NEW 2023 [employer] QUAN THAT WAS PURCHASED 4 MONTHS AGO AND IS PARKED AT PT'S HOME. PER JARET, PT HAS A LEMUS AND SHE HAS A LEMUS TO THE CAR. PER JARET, SHE ALSO HAS POSSESSION OF PT'S CHECKBOOK. CM REQUEST JARET COME IN TO SPEAK WITH PT REGARDING HOW THE CAR CAN BE SOLD OR RETURNED TO THE DEALER BY THE END OF THE WEEK. CM SPOKE WITH CM DIRECTOR WHO IS AWARE OF NEED TO POSSIBLY SEEK A CONSERVATOR IF HCP IS UNABLE TO DISCUSS THIS WITH PT. CM WILL CONTINUE TO FOLLOW.
[2024-06-18 15:12] VITALS: BP 105/55; PULSE 65; RESP 17; TEMP 36.4; O2SAT 95
[2024-06-18] MEDS: Divalproex Sodium 500 MG TABLET.DR PO (20:29)
[2024-06-18] MEDS: busPIRone HCl 5 MG TABLET 15 MG PO (20:30)
[2024-06-18 23:39] VITALS: BP 105/65; PULSE 61; RESP 18; TEMP 36.1; O2SAT 95
[2024-06-18] MEDS: Melatonin 3 MG TABLET 6 MG PO (23:45)
[2024-06-19] MEDS: Omeprazole 20 MG CAPSULE.DR PO (05:52)
[2024-06-19 08:00] VITALS: BP 120/64; PULSE 55; RESP 18; TEMP 36; O2SAT 100
[2024-06-19] MEDS: busPIRone HCl 10 MG TABLET PO (08:49)
[2024-06-19] MEDS: Apixaban 5 MG TABLET PO ×2 (08:49→20:48)
[2024-06-19] MEDS: Metoprolol Tartrate 12.5 MG HALFTAB PO ×2 (08:49→20:48)
[2024-06-19] MEDS: Gabapentin 100 MG CAPSULE 200 MG PO ×2 (08:49→20:48)
[2024-06-19] MEDS: amLODIPine Besylate 2.5 MG TABLET PO (08:49)
[2024-06-19] MEDS: Tamsulosin HCL 0.4 MG CAPSULE PO (08:49)
[2024-06-19] MEDS: Venlafaxine HCl ER 37.5 MG CAP.ER.24H PO (08:49)
[2024-06-19] MEDS: Venlafaxine HCl ER 150 MG CAP.ER.24H PO (08:49)
[2024-06-19] MEDS: Morphine Sulfate Immed Release 15 MG TABLET PO ×2 (09:48→19:28)
--- NOTE | 2024-06-19 12:12 | HO.PM.IMPN ---
Subjective Subjective Date of Service: 06/19/24 Interval History: seen and examined no complaints Physical Exam Vital Signs: Vital Signs: Last Vital Signs Temp 96.8 F 06/19/24 08:00 Pulse 55 06/19/24 08:00 Resp 18 06/19/24 08:00 BP 120/64 06/19/24 08:00 Pulse Ox 100 06/19/24 08:00 O2 Del Method Room Air 06/19/24 08:00 O2 Flow Rate 3 06/05/24 04:00 BMI result Body Mass Index 31.0 Const: Other: Awake and alert No lower extremity edema Not in respiratory distress Neuro exam nonfocal Abdomen soft and nontender Objective Data Active Medications Acetaminophen (Acetaminophen 325 Mg Tablet) 650 mg PO Q6H PRN PRN Reason: Pain, Mild 1-3,fever,headache Last Admin: 06/13/24 20:03 Dose: 650 mg Documented By: SANYA Amlodipine Besylate (Amlodipine Besylate 2.5 Mg Tablet) 2.5 mg PO DAILY [facility]; Protocol Last Admin: 06/19/24 08:49 Dose: 2.5 mg Documented By: BINU Apixaban (Apixaban 5 Mg Tablet) 5 mg PO BID [facility] Last Admin: 06/19/24 08:49 Dose: 5 mg Documented By: BINU Buspirone HCl (Buspirone Hcl 10 Mg Tablet) 10 mg PO DAILY [facility] Last Admin: 06/19/24 08:49 Dose: 10 mg Documented By: BINU Buspirone HCl (Buspirone Hcl 5 Mg Tablet) 15 mg PO BEDTIME [facility] Last Admin: 06/18/24 20:30 Dose: 15 mg Documented By: SANYA Calcium Carbonate (Calcium Carbonate 750 Mg Tab.Chew) 750 mg PO Q4H PRN PRN Reason: Heartburn Divalproex Sodium (Divalproex Sodium 500 Mg Tablet.Dr) 500 mg PO BEDTIME [facility] Last Admin: 06/18/24 20:29 Dose: 500 mg Documented By: SANYA Gabapentin (Gabapentin 100 Mg Capsule) 200 mg PO BID [facility] Last Admin: 06/19/24 08:49 Dose: 200 mg Documented By: BINU Hydroxyzine HCl (Hydroxyzine Hcl 25 Mg Tablet) 25 mg PO Q8H PRN PRN Reason: Anxiety Last Admin: 06/17/24 10:36 Dose: 25 mg Documented By: NEHEMIAH Ibuprofen (Ibuprofen 400 Mg Tablet) 400 mg PO TIDWM PRN PRN Reason: Pain, Moderate(Pain Scale 4-6) Last Admin: 06/13/24 15:18 Dose: 400 mg Documented By: CIPRIANO Loperamide HCl (Loperamide Hcl 2 Mg Capsule) 2 mg PO DAILY PRN PRN Reason: Diarrhea Magnesium Hydroxide (Milk Of Magnesia 30 Ml Oral.Susp) 30 ml PO DAILY PRN PRN Reason: Constipation Melatonin (Melatonin 3 Mg Tablet) 6 mg PO BEDTIME PRN PRN Reason: Insomnia Last Admin: 06/18/24 23:45 Dose: 6 mg Documented By: SANYA Metoprolol Tartrate (Metoprolol Tartrate 12.5 Mg Halftab) 12.5 mg PO BID [facility]; Protocol Last Admin: 06/19/24 08:49 Dose: 12.5 mg Documented By: BINU Morphine Sulfate (Morphine Sulfate Immed Release 15 Mg Tablet) 15 mg PO Q6H PRN PRN Reason: Pain, Severe (Pain Scale 7-10) Last Admin: 06/19/24 09:48 Dose: 15 mg Documented By: BINU Omeprazole (Omeprazole 20 Mg Capsule.Dr) 20 mg PO DAILY@0630 [facility] Last Admin: 06/19/24 05:52 Dose: 20 mg Documented By: SANYA Ondansetron HCl (Ondansetron Hcl 4 Mg/2 Ml Vial) 4 mg IVPUSH Q8H PRN PRN Reason: Nausea and Vomiting Senna (Sennosides 8.6 Mg Tablet) 17.2 mg PO BEDTIME PRN PRN Reason: constipation Simethicone (Simethicone 80 Mg Tab.Chew) 80 mg PO QIDWMHS PRN PRN Reason: Gas Tamsulosin HCl (Tamsulosin Hcl 0.4 Mg Capsule) 0.4 mg PO DAILY [facility] Last Admin: 06/19/24 08:49 Dose: 0.4 mg Documented By: BINU Venlafaxine HCl (Venlafaxine Hcl Er 37.5 Mg Cap.Er.24h) 37.5 mg PO DAILY [facility] Last Admin: 06/19/24 08:49 Dose: 37.5 mg Documented By: BINU Venlafaxine HCl (Venlafaxine Hcl Er 150 Mg Cap.Er.24h) 150 mg PO DAILY [facility] Last Admin: 06/19/24 08:49 Dose: 150 mg Documented By: BINU Assessment and Plan (1) Cognitive impairment: Status: Acute Plan 78M PMH chronic atrial fibrillation, hypertension, cognitive impairment and GERD presentesd initially from home with worsening shortness of breath and anxiety. 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 He was recently discharged from [facility] and after 2 days returned to the hospital. unable to take care of himself. Remained stable, await placement fall trauma work up negative Chronic atrial fibrillation acceptable rate control on current therapies continue Eliquis Cognitive impairment stable on Buspar and Valproic acid with PRN Atarax Hypertension Amlodipine and Metoprolol DNR DNI Eliquis will need inpatient stay pending exterminator termite facility acceptance. Quality Stroke Does the patient have a stroke diagnosis?: No VTE Prior VTE?: Yes VTE Risk Level:: Medical - moderate - high VTE Device Contraindication: Treatment Not Indicated VTE Drug Contraindication: N/A - Med Ordered
[2024-06-19 15:05] VITALS: BP 105/60; PULSE 70; RESP 16; TEMP 36.6; O2SAT 94
[2024-06-19] MEDS: Divalproex Sodium 500 MG TABLET.DR PO (20:48)
[2024-06-19] MEDS: busPIRone HCl 5 MG TABLET 15 MG PO (20:48)
[2024-06-19 20:49] VITALS: BP 116/61; PULSE 74
[2024-06-19] MEDS: Melatonin 3 MG TABLET 6 MG PO (23:07)
[2024-06-20 03:59] VITALS: BP 105/71; PULSE 59; RESP 18; TEMP 36.3; O2SAT 97
[2024-06-20] MEDS: Omeprazole 20 MG CAPSULE.DR PO (05:48)
[2024-06-20 08:00] VITALS: BP 133/67; PULSE 58; RESP 16; TEMP 36.1; O2SAT 98
[2024-06-20] MEDS: Tamsulosin HCL 0.4 MG CAPSULE PO (08:40)
[2024-06-20 08:41] VITALS: PULSE 64
[2024-06-20] MEDS: Metoprolol Tartrate 12.5 MG HALFTAB PO ×2 (08:41→21:38)
[2024-06-20] MEDS: busPIRone HCl 10 MG TABLET PO (08:41)
[2024-06-20] MEDS: Apixaban 5 MG TABLET PO ×2 (08:42→21:38)
[2024-06-20] MEDS: Venlafaxine HCl ER 150 MG CAP.ER.24H PO (08:42)
[2024-06-20] MEDS: Venlafaxine HCl ER 37.5 MG CAP.ER.24H PO (08:42)
[2024-06-20] MEDS: amLODIPine Besylate 2.5 MG TABLET PO (08:42)
[2024-06-20] MEDS: Gabapentin 100 MG CAPSULE 200 MG PO ×2 (08:43→21:38)
[2024-06-20] MEDS: Morphine Sulfate Immed Release 15 MG TABLET PO ×2 (08:46→16:05)
--- NOTE | 2024-06-20 13:13 | HO.PM.IMPN ---
Subjective Subjective Date of Service: 06/20/24 Interval History: the patient was seen and evaluated laying comfortable in bed No reported other overnight events. Review of Systems Review of Systems: Yes all other systems are reviewed and are negative Physical Exam Vital Signs: Vital Signs: Last Vital Signs Temp 96.9 F 06/20/24 08:00 Pulse 64 06/20/24 08:41 Resp 16 06/20/24 08:00 BP 133/67 06/20/24 08:00 Pulse Ox 98 06/20/24 08:00 O2 Del Method Room Air 06/20/24 08:00 O2 Flow Rate 3 06/05/24 04:00 BMI result Body Mass Index 31.0 Const: Other: Constitutional : interactive, not in distress Cardiovascular : no JVP, no lower extremity edema Respiratory : bilateral chest movement, not in resp distress Gastrointestinal: soft, lax, Non tender Skin : Warm, Dry Neurological : Alert & oriented to self and place, No focal deficit Objective Data Active Medications Acetaminophen (Acetaminophen 325 Mg Tablet) 650 mg PO Q6H PRN PRN Reason: Pain, Mild 1-3,fever,headache Last Admin: 06/13/24 20:03 Dose: 650 mg Documented By: SANYA Amlodipine Besylate (Amlodipine Besylate 2.5 Mg Tablet) 2.5 mg PO DAILY [facility]; Protocol Last Admin: 06/20/24 08:42 Dose: 2.5 mg Documented By: HELGA Apixaban (Apixaban 5 Mg Tablet) 5 mg PO BID [facility] Last Admin: 06/20/24 08:42 Dose: 5 mg Documented By: HELGA Artificial Tears (Artificial Tears 15 Ml Drops) 1 drop EYE-BOTH Q4H PRN PRN Reason: Dry Eyes Buspirone HCl (Buspirone Hcl 10 Mg Tablet) 10 mg PO DAILY [facility] Last Admin: 06/20/24 08:41 Dose: 10 mg Documented By: HELGA Buspirone HCl (Buspirone Hcl 5 Mg Tablet) 15 mg PO BEDTIME [facility] Last Admin: 06/19/24 20:48 Dose: 15 mg Documented By: GAVINO Calcium Carbonate (Calcium Carbonate 750 Mg Tab.Chew) 750 mg PO Q4H PRN PRN Reason: Heartburn Divalproex Sodium (Divalproex Sodium 500 Mg Tablet.) 500 mg PO BEDTIME [facility] Last Admin: 06/19/24 20:48 Dose: 500 mg Documented By: GAVINO Gabapentin (Gabapentin 100 Mg Capsule) 200 mg PO BID [facility] Last Admin: 06/20/24 08:43 Dose: 200 mg Documented By: HELGA Hydroxyzine HCl (Hydroxyzine Hcl 25 Mg Tablet) 25 mg PO Q8H PRN PRN Reason: Anxiety Last Admin: 06/17/24 10:36 Dose: 25 mg Documented By: DOBROB Ibuprofen (Ibuprofen 400 Mg Tablet) 400 mg PO TIDWM PRN PRN Reason: Pain, Moderate(Pain Scale 4-6) Last Admin: 06/13/24 15:18 Dose: 400 mg Documented By: PARSOPHIA Loperamide HCl (Loperamide Hcl 2 Mg Capsule) 2 mg PO DAILY PRN PRN Reason: Diarrhea Magnesium Hydroxide (Milk Of Magnesia 30 Ml Oral.Susp) 30 ml PO DAILY PRN PRN Reason: Constipation Melatonin (Melatonin 3 Mg Tablet) 6 mg PO BEDTIME PRN PRN Reason: Insomnia Last Admin: 06/19/24 23:07 Dose: 6 mg Documented By: GAVINO Metoprolol Tartrate (Metoprolol Tartrate 12.5 Mg Halftab) 12.5 mg PO BID [facility]; Protocol Last Admin: 06/20/24 08:41 Dose: 12.5 mg Documented By: HELGA Morphine Sulfate (Morphine Sulfate Immed Release 15 Mg Tablet) 15 mg PO Q6H PRN PRN Reason: Pain, Severe (Pain Scale 7-10) Last Admin: 06/20/24 08:46 Dose: 15 mg Documented By: HELGA Omeprazole (Omeprazole 20 Mg Capsule.Dr) 20 mg PO DAILY@0630 [facility] Last Admin: 06/20/24 05:48 Dose: 20 mg Documented By: GAVINO Ondansetron HCl (Ondansetron Hcl 4 Mg/2 Ml Vial) 4 mg IVPUSH Q8H PRN PRN Reason: Nausea and Vomiting Senna (Sennosides 8.6 Mg Tablet) 17.2 mg PO BEDTIME PRN PRN Reason: constipation Simethicone (Simethicone 80 Mg Tab.Chew) 80 mg PO QIDWMHS PRN PRN Reason: Gas Tamsulosin HCl (Tamsulosin Hcl 0.4 Mg Capsule) 0.4 mg PO DAILY [facility] Last Admin: 06/20/24 08:40 Dose: 0.4 mg Documented By: HELGA Venlafaxine HCl (Venlafaxine Hcl Er 37.5 Mg Cap.Er.24h) 37.5 mg PO DAILY [facility] Last Admin: 06/20/24 08:42 Dose: 37.5 mg Documented By: HELGA Venlafaxine HCl (Venlafaxine Hcl Er 150 Mg Cap.Er.24h) 150 mg PO DAILY [facility] Last Admin: 06/20/24 08:42 Dose: 150 mg Documented By: HELGA Assessment and Plan (1) Cognitive impairment: Status: Acute Plan 78-year-old male with a history of chronic atrial fibrillation, hypertension, cognitive impairment and GERD presents initially from home with worsening shortness of breath and anxiety. 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 He was recently discharged from [facility] and after 2 days returned to the hospital. unable to take care of himself. # Chronic atrial fibrillation acceptable rate control on current therapies continue Eliquis # Cognitive impairment stable on Buspar and Valproic acid with PRN Atarax # Hypertension Amlodipine and Metoprolol DNR DNI Eliquis will need inpatient stay pending termite exterminator helper facility acceptance. Quality Stroke Does the patient have a stroke diagnosis?: No VTE Prior VTE?: Yes VTE Risk Level:: Medical - moderate - high VTE Device Contraindication: Treatment Not Indicated VTE Drug Contraindication: N/A - Med Ordered
[2024-06-20 15:16] VITALS: BP 101/54; PULSE 63; RESP 16; TEMP 36.6; O2SAT 96
--- NOTE | 2024-06-20 15:41 | MHC.CM.PN ---
PT AWAITING LTC PLACEMENT [facility] PENDING REFERRALS OUT
[2024-06-20] MEDS: Artificial Tears 15 ML DROPS 1 DROP EYE-BOTH (15:59)
[2024-06-20] MEDS: busPIRone HCl 5 MG TABLET 15 MG PO (21:37)
[2024-06-20] MEDS: Melatonin 3 MG TABLET 6 MG PO (21:38)
[2024-06-20] MEDS: Divalproex Sodium 500 MG TABLET.DR PO (21:38)
[2024-06-20 23:27] VITALS: BP 107/62; PULSE 71; RESP 17; TEMP 36.3; O2SAT 95
[2024-06-21] MEDS: Morphine Sulfate Immed Release 15 MG TABLET PO ×3 (01:05→19:54)
[2024-06-21] MEDS: Omeprazole 20 MG CAPSULE.DR PO (06:31)
[2024-06-21 07:45] VITALS: BP 109/60; PULSE 54; RESP 16; TEMP 36.1; O2SAT 96
[2024-06-21 08:52] VITALS: BP 114/66; PULSE 59
[2024-06-21] MEDS: amLODIPine Besylate 2.5 MG TABLET PO (08:54)
[2024-06-21] MEDS: Tamsulosin HCL 0.4 MG CAPSULE PO (08:55)
[2024-06-21] MEDS: Venlafaxine HCl ER 150 MG CAP.ER.24H PO (08:55)
[2024-06-21] MEDS: Gabapentin 100 MG CAPSULE 200 MG PO ×2 (08:55→19:56)
[2024-06-21] MEDS: busPIRone HCl 10 MG TABLET PO (08:55)
[2024-06-21] MEDS: Apixaban 5 MG TABLET PO ×2 (08:57→19:53)
[2024-06-21] MEDS: Venlafaxine HCl ER 37.5 MG CAP.ER.24H PO (08:57)
[2024-06-21] MEDS: Artificial Tears 15 ML DROPS 1 DROP EYE-BOTH (09:01)
--- NOTE | 2024-06-21 12:20 | P.PNIM_ITS ---
Subjective Subjective Date of Service: 06/21/24 Interval History: the patient was seen and evaluated laying comfortable in bed No reported other overnight events. Physical Exam Vital Signs: Vital Signs: Last Vital Signs Temp 96.9 F 06/21/24 07:45 Pulse 59 06/21/24 08:52 Resp 16 06/21/24 07:45 BP 114/66 06/21/24 08:52 Pulse Ox 96 06/21/24 07:45 O2 Del Method Room Air 06/21/24 07:45 O2 Flow Rate 3 06/05/24 04:00 BMI result Body Mass Index 31.0 Const: Other: Constitutional : interactive, not in distress Cardiovascular : no JVP, no lower extremity edema Respiratory : bilateral chest movement, not in resp distress Gastrointestinal: soft, lax, Non tender Skin : Warm, Dry Neurological : Alert & oriented to self and place, No focal deficit Objective Data Active Medications Acetaminophen (Acetaminophen 325 Mg Tablet) 650 mg PO Q6H PRN PRN Reason: Pain, Mild 1-3,fever,headache Last Admin: 06/13/24 20:03 Dose: 650 mg Documented By: SANYA Amlodipine Besylate (Amlodipine Besylate 2.5 Mg Tablet) 2.5 mg PO DAILY [facility]; Protocol Last Admin: 06/21/24 08:54 Dose: 2.5 mg Documented By: HELGA Apixaban (Apixaban 5 Mg Tablet) 5 mg PO BID [facility] Last Admin: 06/21/24 08:57 Dose: 5 mg Documented By: HELGA Artificial Tears (Artificial Tears 15 Ml Drops) 1 drop EYE-BOTH Q4H PRN PRN Reason: Dry Eyes Last Admin: 06/21/24 09:01 Dose: 1 drop Documented By: HELGA Buspirone HCl (Buspirone Hcl 10 Mg Tablet) 10 mg PO DAILY [facility] Last Admin: 06/21/24 08:55 Dose: 10 mg Documented By: HELGA Buspirone HCl (Buspirone Hcl 5 Mg Tablet) 15 mg PO BEDTIME [facility] Last Admin: 06/20/24 21:37 Dose: 15 mg Documented By: BART Calcium Carbonate (Calcium Carbonate 750 Mg Tab.Chew) 750 mg PO Q4H PRN PRN Reason: Heartburn Divalproex Sodium (Divalproex Sodium 500 Mg Tablet.Dr) 500 mg PO BEDTIME [facility] Last Admin: 06/20/24 21:38 Dose: 500 mg Documented By: BART Gabapentin (Gabapentin 100 Mg Capsule) 200 mg PO BID [facility] Last Admin: 06/21/24 08:55 Dose: 200 mg Documented By: HELGA Hydroxyzine HCl (Hydroxyzine Hcl 25 Mg Tablet) 25 mg PO Q8H PRN PRN Reason: Anxiety Last Admin: 06/17/24 10:36 Dose: 25 mg Documented By: BRODebbie Ibuprofen (Ibuprofen 400 Mg Tablet) 400 mg PO TIDWM PRN PRN Reason: Pain, Moderate(Pain Scale 4-6) Last Admin: 06/13/24 15:18 Dose: 400 mg Documented By: CIPRIANO Loperamide HCl (Loperamide Hcl 2 Mg Capsule) 2 mg PO DAILY PRN PRN Reason: Diarrhea Magnesium Hydroxide (Milk Of Magnesia 30 Ml Oral.Susp) 30 ml PO DAILY PRN PRN Reason: Constipation Melatonin (Melatonin 3 Mg Tablet) 6 mg PO BEDTIME PRN PRN Reason: Insomnia Last Admin: 06/20/24 21:38 Dose: 6 mg Documented By: BART Metoprolol Tartrate (Metoprolol Tartrate 12.5 Mg Halftab) 12.5 mg PO BID [facility]; Protocol Last Admin: 06/21/24 08:56 Dose: Not Given Documented By: HELGA Non-Admin Reason: HR 59 Morphine Sulfate (Morphine Sulfate Immed Release 15 Mg Tablet) 15 mg PO Q6H PRN PRN Reason: Pain, Severe (Pain Scale 7-10) Last Admin: 06/21/24 09:01 Dose: 15 mg Documented By: HELGA Omeprazole (Omeprazole 20 Mg Capsule.) 20 mg PO DAILY@0630 [facility] Last Admin: 06/21/24 06:31 Dose: 20 mg Documented By: BART Ondansetron HCl (Ondansetron Hcl 4 Mg/2 Ml Vial) 4 mg IVPUSH Q8H PRN PRN Reason: Nausea and Vomiting Senna (Sennosides 8.6 Mg Tablet) 17.2 mg PO BEDTIME PRN PRN Reason: constipation Simethicone (Simethicone 80 Mg Tab.Chew) 80 mg PO QIDWMHS PRN PRN Reason: Gas Tamsulosin HCl (Tamsulosin Hcl 0.4 Mg Capsule) 0.4 mg PO DAILY [facility] Last Admin: 06/21/24 08:55 Dose: 0.4 mg Documented By: HELGA Venlafaxine HCl (Venlafaxine Hcl Er 37.5 Mg Cap.Er.24h) 37.5 mg PO DAILY [facility] Last Admin: 06/21/24 08:57 Dose: 37.5 mg Documented By: HELGA Venlafaxine HCl (Venlafaxine Hcl Er 150 Mg Cap.Er.24h) 150 mg PO DAILY [facility] Last Admin: 06/21/24 08:55 Dose: 150 mg Documented By: HELGA Assessment and Plan (1) Cognitive impairment: Status: Acute Plan 78-year-old male with a history of chronic atrial fibrillation, hypertension, cognitive impairment and GERD presents initially from home with worsening shortness of breath and anxiety. 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 He was recently discharged from [facility] and after 2 days returned to the hospital. unable to take care of himself. # Chronic atrial fibrillation acceptable rate control on current therapies continue Eliquis # Cognitive impairment stable on Buspar and Valproic acid with PRN Atarax # Hypertension Amlodipine and Metoprolol DNR DNI Eliquis will need inpatient stay pending [facility] facility acceptance. Quality Stroke Does the patient have a stroke diagnosis?: No VTE Prior VTE?: Yes VTE Risk Level:: Medical - moderate - high VTE Device Contraindication: Treatment Not Indicated VTE Drug Contraindication: N/A - Med Ordered
[2024-06-21 15:35] VITALS: BP 107/56; PULSE 66; RESP 18; TEMP 36.1; O2SAT 95
[2024-06-21 19:32] VITALS: BP 107/75; PULSE 76; RESP 16; O2SAT 95
[2024-06-21] MEDS: Divalproex Sodium 500 MG TABLET.DR PO (19:56)
[2024-06-21] MEDS: busPIRone HCl 5 MG TABLET 15 MG PO (19:56)
[2024-06-21] MEDS: Metoprolol Tartrate 12.5 MG HALFTAB PO (20:08)
[2024-06-22] VITALS: BP 111/60; PULSE 62; RESP 17; TEMP 36.7; O2SAT 94
[2024-06-22] MEDS: Morphine Sulfate Immed Release 15 MG TABLET PO ×2 (02:52→18:07)
[2024-06-22] MEDS: hydrOXYzine HCL 25 MG TABLET PO (04:50)
[2024-06-22] MEDS: Omeprazole 20 MG CAPSULE.DR PO (05:17)
[2024-06-22 07:51] VITALS: BP 104/60; PULSE 62; RESP 16; TEMP 36; O2SAT 96
[2024-06-22] MEDS: Gabapentin 100 MG CAPSULE 200 MG PO ×2 (08:21→20:10)
[2024-06-22] MEDS: busPIRone HCl 10 MG TABLET PO (08:21)
[2024-06-22] MEDS: Venlafaxine HCl ER 37.5 MG CAP.ER.24H PO (08:21)
[2024-06-22] MEDS: Metoprolol Tartrate 12.5 MG HALFTAB PO ×2 (08:21→20:10)
[2024-06-22] MEDS: Apixaban 5 MG TABLET PO ×2 (08:21→20:08)
[2024-06-22] MEDS: amLODIPine Besylate 2.5 MG TABLET PO (08:21)
[2024-06-22] MEDS: Venlafaxine HCl ER 150 MG CAP.ER.24H PO (08:21)
[2024-06-22] MEDS: Tamsulosin HCL 0.4 MG CAPSULE PO (08:21)
--- NOTE | 2024-06-22 10:30 | P.PNIM_ITS ---
Subjective Subjective Date of Service: 06/22/24 Interval History: the patient was seen and evaluated laying comfortable in bed No reported other overnight events. Review of Systems Review of Systems: Yes all other systems are reviewed and are negative Physical Exam Vital Signs: Vital Signs: Last Vital Signs Temp 96.8 F 06/22/24 07:51 Pulse 62 06/22/24 07:51 Resp 16 06/22/24 07:51 BP 104/60 06/22/24 07:51 Pulse Ox 96 06/22/24 07:51 O2 Del Method Room Air 06/22/24 07:51 O2 Flow Rate 96 06/21/24 15:35 BMI result Body Mass Index 31.0 Const: Other: Constitutional : interactive, not in distress Cardiovascular : no JVP, no lower extremity edema Respiratory : bilateral chest movement, not in resp distress Gastrointestinal: soft, lax, Non tender Skin : Warm, Dry Neurological : Alert & oriented to self and place, No focal deficit Objective Data Active Medications Acetaminophen (Acetaminophen 325 Mg Tablet) 650 mg PO Q6H PRN PRN Reason: Pain, Mild 1-3,fever,headache Last Admin: 06/13/24 20:03 Dose: 650 mg Documented By: SANYA Amlodipine Besylate (Amlodipine Besylate 2.5 Mg Tablet) 2.5 mg PO DAILY [facility]; Protocol Last Admin: 06/22/24 08:21 Dose: 2.5 mg Documented By: STAR Apixaban (Apixaban 5 Mg Tablet) 5 mg PO BID [facility] Last Admin: 06/22/24 08:21 Dose: 5 mg Documented By: STAR Artificial Tears (Artificial Tears 15 Ml Drops) 1 drop EYE-BOTH Q4H PRN PRN Reason: Dry Eyes Last Admin: 06/21/24 09:01 Dose: 1 drop Documented By: HELGA Buspirone HCl (Buspirone Hcl 10 Mg Tablet) 10 mg PO DAILY [facility] Last Admin: 06/22/24 08:21 Dose: 10 mg Documented By: STAR Buspirone HCl (Buspirone Hcl 5 Mg Tablet) 15 mg PO BEDTIME [facility] Last Admin: 06/21/24 19:56 Dose: 15 mg Documented By: ROSENDO Calcium Carbonate (Calcium Carbonate 750 Mg Tab.Chew) 750 mg PO Q4H PRN PRN Reason: Heartburn Divalproex Sodium (Divalproex Sodium 500 Mg Tablet.) 500 mg PO BEDTIME [facility] Last Admin: 06/21/24 19:56 Dose: 500 mg Documented By: ROSENDO Gabapentin (Gabapentin 100 Mg Capsule) 200 mg PO BID [facility] Last Admin: 06/22/24 08:21 Dose: 200 mg Documented By: STAR Hydroxyzine HCl (Hydroxyzine Hcl 25 Mg Tablet) 25 mg PO Q8H PRN PRN Reason: Anxiety Last Admin: 06/22/24 04:50 Dose: 25 mg Documented By: ROSENDO Ibuprofen (Ibuprofen 400 Mg Tablet) 400 mg PO TIDWM PRN PRN Reason: Pain, Moderate(Pain Scale 4-6) Last Admin: 06/13/24 15:18 Dose: 400 mg Documented By: CIPRIANO Loperamide HCl (Loperamide Hcl 2 Mg Capsule) 2 mg PO DAILY PRN PRN Reason: Diarrhea Magnesium Hydroxide (Milk Of Magnesia 30 Ml Oral.Susp) 30 ml PO DAILY PRN PRN Reason: Constipation Melatonin (Melatonin 3 Mg Tablet) 6 mg PO BEDTIME PRN PRN Reason: Insomnia Last Admin: 06/20/24 21:38 Dose: 6 mg Documented By: BART Metoprolol Tartrate (Metoprolol Tartrate 12.5 Mg Halftab) 12.5 mg PO BID [facility]; Protocol Last Admin: 06/22/24 08:21 Dose: 12.5 mg Documented By: STAR Morphine Sulfate (Morphine Sulfate Immed Release 15 Mg Tablet) 15 mg PO Q6H PRN PRN Reason: Pain, Severe (Pain Scale 7-10) Last Admin: 06/22/24 02:52 Dose: 15 mg Documented By: ROSENDO Omeprazole (Omeprazole 20 Mg Capsule.) 20 mg PO DAILY@0630 [facility] Last Admin: 06/22/24 05:17 Dose: 20 mg Documented By: ROSENDO Ondansetron HCl (Ondansetron Hcl 4 Mg/2 Ml Vial) 4 mg IVPUSH Q8H PRN PRN Reason: Nausea and Vomiting Senna (Sennosides 8.6 Mg Tablet) 17.2 mg PO BEDTIME PRN PRN Reason: constipation Simethicone (Simethicone 80 Mg Tab.Chew) 80 mg PO QIDWMHS PRN PRN Reason: Gas Tamsulosin HCl (Tamsulosin Hcl 0.4 Mg Capsule) 0.4 mg PO DAILY [facility] Last Admin: 06/22/24 08:21 Dose: 0.4 mg Documented By: STAR Venlafaxine HCl (Venlafaxine Hcl Er 37.5 Mg Cap.Er.24h) 37.5 mg PO DAILY [facility] Last Admin: 06/22/24 08:21 Dose: 37.5 mg Documented By: STAR Venlafaxine HCl (Venlafaxine Hcl Er 150 Mg Cap.Er.24h) 150 mg PO DAILY [facility] Last Admin: 06/22/24 08:21 Dose: 150 mg Documented By: STAR Assessment and Plan (1) Chronic atrial fibrillation: Status: Acute (2) Cognitive impairment: Status: Acute Plan 78-year-old male with a history of chronic atrial fibrillation, hypertension, cognitive impairment and GERD presents initially from home with worsening shortness of breath and anxiety. 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 He was recently discharged from [facility] and after 2 days returned to the hospital. unable to take care of himself. # Chronic atrial fibrillation acceptable rate control on current therapies continue Eliquis # Cognitive impairment stable on Buspar and Valproic acid with PRN Atarax # Hypertension Amlodipine and Metoprolol DNR DNI Eliquis will need inpatient stay [facility]. Quality Stroke Does the patient have a stroke diagnosis?: No VTE Prior VTE?: Yes VTE Risk Level:: Medical - moderate - high VTE Device Contraindication: Treatment Not Indicated VTE Drug Contraindication: N/A - Med Ordered
[2024-06-22 15:36] VITALS: BP 104/62; PULSE 71; RESP 19; TEMP 36.1; O2SAT 97
--- NOTE | 2024-06-22 16:14 | MHC.CM.PN ---
CM waiting for 1 yrs bank statements for MH application. Financial certified adaptive physical educator is aware. CM will notify [facility] as soon as the financial documents are received.
[2024-06-22 19:53] VITALS: BP 106/67; PULSE 81; RESP 15; TEMP 36.1; O2SAT 95
[2024-06-22] MEDS: busPIRone HCl 5 MG TABLET 15 MG PO (20:07)
[2024-06-22] MEDS: Melatonin 3 MG TABLET 6 MG PO (20:07)
[2024-06-22] MEDS: Divalproex Sodium 500 MG TABLET.DR PO (20:10)
[2024-06-22 23:50] VITALS: BP 101/56; PULSE 82; RESP 18; TEMP 36; O2SAT 95
[2024-06-23] MEDS: Omeprazole 20 MG CAPSULE.DR PO (06:17)
[2024-06-23 06:49] LABS: Anion Gap 11 (12-20); Blood Urea Nitrogen 28 mg/dL (9-16); Calcium 8.2 mg/dL (8.4-10.2); Carbon Dioxide 26 mmol/L (22-29); Chloride 108 mmol/L (96-108); Creatinine Clr Calc Pharmacy 71.1; Estimated Glomerular Filt Rate > 60; Glucose Random 91 mg/dL (60-115); Potassium 4.2 mmol/L (3.3-5.1); Sodium 141 mmol/L (135-145)
[2024-06-23 07:46] VITALS: BP 115/69; PULSE 61; RESP 18; TEMP 36; O2SAT 95
[2024-06-23] MEDS: busPIRone HCl 10 MG TABLET PO (09:19)
[2024-06-23] MEDS: Gabapentin 100 MG CAPSULE 200 MG PO ×2 (09:19→20:04)
[2024-06-23 09:21] VITALS: BP 135/81
[2024-06-23] MEDS: Metoprolol Tartrate 12.5 MG HALFTAB PO ×2 (09:21→20:03)
[2024-06-23] MEDS: Apixaban 5 MG TABLET PO ×2 (09:21→20:04)
[2024-06-23] MEDS: amLODIPine Besylate 2.5 MG TABLET PO (09:21)
[2024-06-23] MEDS: Venlafaxine HCl ER 150 MG CAP.ER.24H PO (09:22)
[2024-06-23] MEDS: Tamsulosin HCL 0.4 MG CAPSULE PO (09:22)
[2024-06-23] MEDS: Venlafaxine HCl ER 37.5 MG CAP.ER.24H PO (09:22)
[2024-06-23] MEDS: Morphine Sulfate Immed Release 15 MG TABLET PO (09:25)
--- NOTE | 2024-06-23 11:01 | HO.PM.IMPN ---
Subjective Subjective Date of Service: 06/23/24 Interval History: the patient was seen and evaluated laying comfortable in bed No reported other overnight events. Review of Systems Review of Systems: Yes all other systems are reviewed and are negative Physical Exam Vital Signs: Vital Signs: Last Vital Signs Temp 96.8 F 06/23/24 07:46 Pulse 61 06/23/24 07:46 Resp 18 06/23/24 07:46 BP 135/81 06/23/24 09:21 Pulse Ox 95 06/23/24 07:46 O2 Del Method Room Air 06/23/24 07:46 O2 Flow Rate 96 06/21/24 15:35 BMI result Body Mass Index 31.0 Const: Other: Constitutional : interactive, not in distress Cardiovascular : no JVP, no lower extremity edema Respiratory : bilateral chest movement, not in resp distress Gastrointestinal: soft, lax, Non tender Skin : Warm, Dry Neurological : Alert & oriented to self and place, No focal deficit Objective Data Active Medications Acetaminophen (Acetaminophen 325 Mg Tablet) 650 mg PO Q6H PRN PRN Reason: Pain, Mild 1-3,fever,headache Last Admin: 06/13/24 20:03 Dose: 650 mg Documented By: SANYA Amlodipine Besylate (Amlodipine Besylate 2.5 Mg Tablet) 2.5 mg PO DAILY [facility]; Protocol Last Admin: 06/23/24 09:21 Dose: 2.5 mg Documented By: JUSTIN Apixaban (Apixaban 5 Mg Tablet) 5 mg PO BID [facility] Last Admin: 06/23/24 09:21 Dose: 5 mg Documented By: JUSTIN Artificial Tears (Artificial Tears 15 Ml Drops) 1 drop EYE-BOTH Q4H PRN PRN Reason: Dry Eyes Last Admin: 06/21/24 09:01 Dose: 1 drop Documented By: HELGA Buspirone HCl (Buspirone Hcl 10 Mg Tablet) 10 mg PO DAILY [facility] Last Admin: 06/23/24 09:19 Dose: 10 mg Documented By: JUSTIN Buspirone HCl (Buspirone Hcl 5 Mg Tablet) 15 mg PO BEDTIME [facility] Last Admin: 06/22/24 20:07 Dose: 15 mg Documented By: ROSENDO Calcium Carbonate (Calcium Carbonate 750 Mg Tab.Chew) 750 mg PO Q4H PRN PRN Reason: Heartburn Divalproex Sodium (Divalproex Sodium 500 Mg Tablet.) 500 mg PO BEDTIME [facility] Last Admin: 06/22/24 20:10 Dose: 500 mg Documented By: ROSENDO Gabapentin (Gabapentin 100 Mg Capsule) 200 mg PO BID [facility] Last Admin: 06/23/24 09:19 Dose: 200 mg Documented By: JUSTIN Hydroxyzine HCl (Hydroxyzine Hcl 25 Mg Tablet) 25 mg PO Q8H PRN PRN Reason: Anxiety Last Admin: 06/22/24 04:50 Dose: 25 mg Documented By: ROSENDO Ibuprofen (Ibuprofen 400 Mg Tablet) 400 mg PO TIDWM PRN PRN Reason: Pain, Moderate(Pain Scale 4-6) Last Admin: 06/13/24 15:18 Dose: 400 mg Documented By: CIPRIANO Loperamide HCl (Loperamide Hcl 2 Mg Capsule) 2 mg PO DAILY PRN PRN Reason: Diarrhea Magnesium Hydroxide (Milk Of Magnesia 30 Ml Oral.Susp) 30 ml PO DAILY PRN PRN Reason: Constipation Melatonin (Melatonin 3 Mg Tablet) 6 mg PO BEDTIME PRN PRN Reason: Insomnia Last Admin: 06/22/24 20:07 Dose: 6 mg Documented By: ROSENDO Metoprolol Tartrate (Metoprolol Tartrate 12.5 Mg Halftab) 12.5 mg PO BID [facility]; Protocol Last Admin: 06/23/24 09:21 Dose: 12.5 mg Documented By: JUSTIN Morphine Sulfate (Morphine Sulfate Immed Release 15 Mg Tablet) 15 mg PO Q6H PRN PRN Reason: Pain, Severe (Pain Scale 7-10) Last Admin: 06/23/24 09:25 Dose: 15 mg Documented By: JUSTIN Omeprazole (Omeprazole 20 Mg Capsule.) 20 mg PO DAILY@0630 [facility] Last Admin: 06/23/24 06:17 Dose: 20 mg Documented By: ROSENDO Ondansetron HCl (Ondansetron Hcl 4 Mg/2 Ml Vial) 4 mg IVPUSH Q8H PRN PRN Reason: Nausea and Vomiting Senna (Sennosides 8.6 Mg Tablet) 17.2 mg PO BEDTIME PRN PRN Reason: constipation Simethicone (Simethicone 80 Mg Tab.Chew) 80 mg PO QIDWMHS PRN PRN Reason: Gas Tamsulosin HCl (Tamsulosin Hcl 0.4 Mg Capsule) 0.4 mg PO DAILY [facility] Last Admin: 06/23/24 09:22 Dose: 0.4 mg Documented By: JUSTIN Venlafaxine HCl (Venlafaxine Hcl Er 37.5 Mg Cap.Er.24h) 37.5 mg PO DAILY [facility] Last Admin: 06/23/24 09:22 Dose: 37.5 mg Documented By: JUSTIN Venlafaxine HCl (Venlafaxine Hcl Er 150 Mg Cap.Er.24h) 150 mg PO DAILY [facility] Last Admin: 06/23/24 09:22 Dose: 150 mg Documented By: JUSTIN Labs 06/23/24 06:06 Labs: Laboratory Results - last 24 hr 06/23/24 06:06 Hold Purple Top SEE NOTE Anion Gap 11 L Estim Creat Clear Calc 71.1 Estimated GFR > 60 Random Glucose 91 Calcium 8.2 L Assessment and Plan (1) Cognitive impairment: Status: Acute Plan 78-year-old male with a history of chronic atrial fibrillation, hypertension, cognitive impairment and GERD presents initially from home with worsening shortness of breath and anxiety. 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 He was recently discharged from [facility] and after 2 days returned to the hospital. unable to take care of himself. # Chronic atrial fibrillation acceptable rate control on current therapies continue Eliquis # Cognitive impairment stable on Buspar and Valproic acid with PRN Atarax # Hypertension Amlodipine and Metoprolol DNR DNI Eliquis will need inpatient stay pending [facility] facility acceptance. Quality Stroke Does the patient have a stroke diagnosis?: No VTE Prior VTE?: Yes VTE Risk Level:: Medical - moderate - high VTE Device Contraindication: Treatment Not Indicated VTE Drug Contraindication: N/A - Med Ordered
[2024-06-23 15:38] VITALS: BP 101/60; PULSE 58; RESP 18; TEMP 36.4; O2SAT 92
--- NOTE | 2024-06-23 15:59 | MHC.CM.PN ---
Bank statements received. Financial services updated. Statements sent to facilities for review. Rocco Gill presented to [facility] and patient signed forms to return leased car. [facility] reviewing. Referrals expanded.
[2024-06-23] MEDS: Ibuprofen 400 MG TABLET PO (20:04)
[2024-06-23] MEDS: Melatonin 3 MG TABLET 6 MG PO (20:04)
[2024-06-23] MEDS: Divalproex Sodium 500 MG TABLET.DR PO (20:04)
[2024-06-23] MEDS: busPIRone HCl 5 MG TABLET 15 MG PO (20:04)
[2024-06-23 20:08] VITALS: BP 113/69; PULSE 76; RESP 18; TEMP 35.8; O2SAT 98
[2024-06-23 23:19] VITALS: BP 100/57; PULSE 70; RESP 18; TEMP 36.1; O2SAT 97
[2024-06-24] MEDS: Omeprazole 20 MG CAPSULE.DR PO (05:15)
--- NOTE | 2024-06-24 06:33 | PC.NURSE ---
Pt seen on bed alert and oriented, some confusion, c/o josefina shoulder pain at start of the shift, prn Ibuprofen po given with good effect. Slept well fairly.
[2024-06-24 07:37] VITALS: BP 127/67; PULSE 57; RESP 14; TEMP 36.6; O2SAT 99
[2024-06-24] MEDS: Gabapentin 100 MG CAPSULE 200 MG PO ×2 (09:20→21:23)
[2024-06-24] MEDS: Tamsulosin HCL 0.4 MG CAPSULE PO (09:20)
[2024-06-24] MEDS: Apixaban 5 MG TABLET PO ×2 (09:20→21:24)
[2024-06-24] MEDS: Venlafaxine HCl ER 37.5 MG CAP.ER.24H PO (09:20)
[2024-06-24 09:21] VITALS: BP 130/68
[2024-06-24] MEDS: amLODIPine Besylate 2.5 MG TABLET PO (09:21)
[2024-06-24] MEDS: Metoprolol Tartrate 12.5 MG HALFTAB PO ×2 (09:21→21:24)
[2024-06-24] MEDS: Venlafaxine HCl ER 150 MG CAP.ER.24H PO (09:22)
[2024-06-24] MEDS: busPIRone HCl 10 MG TABLET PO (09:22)
--- NOTE | 2024-06-24 13:59 | MHC.CM.PN ---
CM CONTINUES TO WORK WITH [employer] ON FINANCIAL QUESTIONS WITH THE ASSIST OF PT. CM CONTINUES TO FOLLOW FOR LTC PLACEMENT
--- NOTE | 2024-06-24 14:12 | HO.PM.IMPN ---
Subjective Subjective Date of Service: 06/24/24 Interval History: the patient was seen and evaluated laying comfortable in bed No reported other overnight events. Physical Exam Vital Signs: Vital Signs: Last Vital Signs Temp 97.9 F 06/24/24 07:37 Pulse 57 06/24/24 07:37 Resp 14 06/24/24 07:37 BP 130/68 06/24/24 09:21 Pulse Ox 99 06/24/24 07:37 O2 Del Method Room Air 06/24/24 07:37 O2 Flow Rate 96 06/21/24 15:35 BMI result Body Mass Index 31.0 Const: Other: Constitutional : interactive, not in distress Cardiovascular : no JVP, no lower extremity edema Respiratory : bilateral chest movement, not in resp distress Gastrointestinal: soft, lax, Non tender Skin : Warm, Dry Neurological : Alert & oriented to self and place, No focal deficit Objective Data Active Medications Acetaminophen (Acetaminophen 325 Mg Tablet) 650 mg PO Q6H PRN PRN Reason: Pain, Mild 1-3,fever,headache Last Admin: 06/13/24 20:03 Dose: 650 mg Documented By: SANYA Amlodipine Besylate (Amlodipine Besylate 2.5 Mg Tablet) 2.5 mg PO DAILY [facility]; Protocol Last Admin: 06/24/24 09:21 Dose: 2.5 mg Documented By: ANETTE Apixaban (Apixaban 5 Mg Tablet) 5 mg PO BID [facility] Last Admin: 06/24/24 09:20 Dose: 5 mg Documented By: ANETTE Artificial Tears (Artificial Tears 15 Ml Drops) 1 drop EYE-BOTH Q4H PRN PRN Reason: Dry Eyes Last Admin: 06/21/24 09:01 Dose: 1 drop Documented By: HELGA Buspirone HCl (Buspirone Hcl 10 Mg Tablet) 10 mg PO DAILY [facility] Last Admin: 06/24/24 09:22 Dose: 10 mg Documented By: ANETTE Buspirone HCl (Buspirone Hcl 5 Mg Tablet) 15 mg PO BEDTIME [facility] Last Admin: 06/23/24 20:04 Dose: 15 mg Documented By: CASTILИван Calcium Carbonate (Calcium Carbonate 750 Mg Tab.Chew) 750 mg PO Q4H PRN PRN Reason: Heartburn Divalproex Sodium (Divalproex Sodium 500 Mg Tablet.Dr) 500 mg PO BEDTIME [facility] Last Admin: 06/23/24 20:04 Dose: 500 mg Documented By: RAVEN Gabapentin (Gabapentin 100 Mg Capsule) 200 mg PO BID [facility] Last Admin: 06/24/24 09:20 Dose: 200 mg Documented By: ANETTE Hydroxyzine HCl (Hydroxyzine Hcl 25 Mg Tablet) 25 mg PO Q8H PRN PRN Reason: Anxiety Last Admin: 06/22/24 04:50 Dose: 25 mg Documented By: ROSENDO Ibuprofen (Ibuprofen 400 Mg Tablet) 400 mg PO TIDWM PRN PRN Reason: Pain, Moderate(Pain Scale 4-6) Last Admin: 06/23/24 20:04 Dose: 400 mg Documented By: RAVEN Loperamide HCl (Loperamide Hcl 2 Mg Capsule) 2 mg PO DAILY PRN PRN Reason: Diarrhea Magnesium Hydroxide (Milk Of Magnesia 30 Ml Oral.Susp) 30 ml PO DAILY PRN PRN Reason: Constipation Melatonin (Melatonin 3 Mg Tablet) 6 mg PO BEDTIME PRN PRN Reason: Insomnia Last Admin: 06/23/24 20:04 Dose: 6 mg Documented By: RAVEN Metoprolol Tartrate (Metoprolol Tartrate 12.5 Mg Halftab) 12.5 mg PO BID [facility]; Protocol Last Admin: 06/24/24 09:21 Dose: 12.5 mg Documented By: ANETTE Omeprazole (Omeprazole 20 Mg Capsule.) 20 mg PO DAILY@0630 [facility] Last Admin: 06/24/24 05:15 Dose: 20 mg Documented By: RAVEN Ondansetron HCl (Ondansetron Hcl 4 Mg/2 Ml Vial) 4 mg IVPUSH Q8H PRN PRN Reason: Nausea and Vomiting Senna (Sennosides 8.6 Mg Tablet) 17.2 mg PO BEDTIME PRN PRN Reason: constipation Simethicone (Simethicone 80 Mg Tab.Chew) 80 mg PO QIDWMHS PRN PRN Reason: Gas Tamsulosin HCl (Tamsulosin Hcl 0.4 Mg Capsule) 0.4 mg PO DAILY [facility] Last Admin: 06/24/24 09:20 Dose: 0.4 mg Documented By: ANETTE Venlafaxine HCl (Venlafaxine Hcl Er 37.5 Mg Cap.Er.24h) 37.5 mg PO DAILY [facility] Last Admin: 06/24/24 09:20 Dose: 37.5 mg Documented By: ANETTE Venlafaxine HCl (Venlafaxine Hcl Er 150 Mg Cap.Er.24h) 150 mg PO DAILY [facility] Last Admin: 06/24/24 09:22 Dose: 150 mg Documented By: ANETTE Labs 06/23/24 06:06 Assessment and Plan (1) Cognitive impairment: Status: Acute Plan 78-year-old male with a history of chronic atrial fibrillation, hypertension, cognitive impairment and GERD presents initially from home with worsening shortness of breath and anxiety. 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 He was recently discharged from [facility] and after 2 days returned to the hospital. unable to take care of himself. # Chronic atrial fibrillation acceptable rate control on current therapies continue Eliquis # Cognitive impairment stable on Buspar and Valproic acid with PRN Atarax # Hypertension Amlodipine and Metoprolol DNR DNI Eliquis will need inpatient stay pending longterm facility acceptance. Quality Stroke Does the patient have a stroke diagnosis?: No VTE Prior VTE?: Yes VTE Risk Level:: Medical - moderate - high VTE Device Contraindication: Treatment Not Indicated VTE Drug Contraindication: N/A - Med Ordered
--- NOTE | 2024-06-24 15:27 | HO.WOUND ---
Wound Consult: Initial 78yr old? Male admitted to [facility] on 06/03/24 - See progress notes and H&P for detailed history.? Wound consult placed for bruising.? Chart review and discussion with direct care nurse there are no open wounds and no bruising to buttock the patient has scattered bruising throughout body but not consistent with pressure injury. No topical recommendations needed at this time. Direct care team will reconsult should topical interventions be needed.
[2024-06-24 15:34] VITALS: BP 113/67; PULSE 64; RESP 18; TEMP 36.2; O2SAT 99
[2024-06-24] MEDS: Morphine Sulfate Immed Release 15 MG TABLET PO (18:42)
--- NOTE | 2024-06-24 19:25 | PC.NURSE ---
Assumed care at 1330, patient resting in bed, alert to self and place, on RA sat's 99%, using male purewick. Was able to get up to the bedside commode with one assist and walker. Patient c/o shoulder pain requesting PRN Morphine, administered.
[2024-06-24 19:26] VITALS: BP 102/61; PULSE 78; RESP 18; TEMP 36.7; O2SAT 97
[2024-06-24] MEDS: busPIRone HCl 5 MG TABLET 15 MG PO (21:23)
[2024-06-24] MEDS: Divalproex Sodium 500 MG TABLET.DR PO (21:24)
[2024-06-24 23:25] VITALS: BP 118/68; PULSE 74; RESP 20; TEMP 36.2; O2SAT 95
[2024-06-25] MEDS: Calcium Carbonate 750 MG TAB.CHEW PO (01:06)
[2024-06-25] MEDS: Morphine Sulfate Immed Release 15 MG TABLET PO ×2 (01:56→13:27)
[2024-06-25] MEDS: Omeprazole 20 MG CAPSULE.DR PO (05:38)
[2024-06-25 07:07] VITALS: BP 97/55; PULSE 57; RESP 18; TEMP 36; O2SAT 95
[2024-06-25 09:13] VITALS: BP 104/62; PULSE 63
[2024-06-25] MEDS: Apixaban 5 MG TABLET PO ×2 (09:32→20:05)
[2024-06-25] MEDS: Tamsulosin HCL 0.4 MG CAPSULE PO (09:32)
[2024-06-25] MEDS: Venlafaxine HCl ER 37.5 MG CAP.ER.24H PO (09:32)
[2024-06-25] MEDS: Venlafaxine HCl ER 150 MG CAP.ER.24H PO (09:32)
[2024-06-25] MEDS: busPIRone HCl 10 MG TABLET PO (09:32)
[2024-06-25] MEDS: Gabapentin 100 MG CAPSULE 200 MG PO ×2 (09:32→20:05)
--- NOTE | 2024-06-25 10:42 | HO.PM.IMPN ---
Subjective Subjective Date of Service: 06/25/24 Interval History: the patient was seen and evaluated laying comfortable in bed No reported other overnight events. Physical Exam Vital Signs: Vital Signs: Last Vital Signs Temp 96.8 F 06/25/24 07:07 Pulse 63 06/25/24 09:13 Resp 18 06/25/24 07:07 BP 104/62 06/25/24 09:13 Pulse Ox 95 06/25/24 07:07 O2 Del Method Room Air 06/25/24 07:07 O2 Flow Rate 96 06/21/24 15:35 BMI result Body Mass Index 31.0 Const: Other: Constitutional : interactive, not in distress Cardiovascular : no JVP, no lower extremity edema Respiratory : bilateral chest movement, not in resp distress Gastrointestinal: soft, lax, Non tender Skin : Warm, Dry Neurological : Alert & oriented to self and place, No focal deficit Objective Data Active Medications Acetaminophen (Acetaminophen 325 Mg Tablet) 650 mg PO Q6H PRN PRN Reason: Pain, Mild 1-3,fever,headache Last Admin: 06/13/24 20:03 Dose: 650 mg Documented By: SANYA Amlodipine Besylate (Amlodipine Besylate 2.5 Mg Tablet) 2.5 mg PO DAILY [facility]; Protocol Last Admin: 06/25/24 09:27 Dose: Not Given Documented By: GREGORY Non-Admin Reason: Decreased Blood Pressure Apixaban (Apixaban 5 Mg Tablet) 5 mg PO BID [facility] Last Admin: 06/25/24 09:32 Dose: 5 mg Documented By: GREGORY Artificial Tears (Artificial Tears 15 Ml Drops) 1 drop EYE-BOTH Q4H PRN PRN Reason: Dry Eyes Last Admin: 06/21/24 09:01 Dose: 1 drop Documented By: HELGA Buspirone HCl (Buspirone Hcl 10 Mg Tablet) 10 mg PO DAILY [facility] Last Admin: 06/25/24 09:32 Dose: 10 mg Documented By: GREGORY Buspirone HCl (Buspirone Hcl 5 Mg Tablet) 15 mg PO BEDTIME [facility] Last Admin: 06/24/24 21:23 Dose: 15 mg Documented By: INA Calcium Carbonate (Calcium Carbonate 750 Mg Tab.Chew) 750 mg PO Q4H PRN PRN Reason: Heartburn Last Admin: 06/25/24 01:06 Dose: 750 mg Documented By: INA Divalproex Sodium (Divalproex Sodium 500 Mg Tablet.) 500 mg PO BEDTIME [facility] Last Admin: 06/24/24 21:24 Dose: 500 mg Documented By: INA Gabapentin (Gabapentin 100 Mg Capsule) 200 mg PO BID [facility] Last Admin: 06/25/24 09:32 Dose: 200 mg Documented By: GREGORY Hydroxyzine HCl (Hydroxyzine Hcl 25 Mg Tablet) 25 mg PO Q8H PRN PRN Reason: Anxiety Last Admin: 06/22/24 04:50 Dose: 25 mg Documented By: ROSENDO Ibuprofen (Ibuprofen 400 Mg Tablet) 400 mg PO TIDWM PRN PRN Reason: Pain, Moderate(Pain Scale 4-6) Last Admin: 06/23/24 20:04 Dose: 400 mg Documented By: FARIHAILИван Loperamide HCl (Loperamide Hcl 2 Mg Capsule) 2 mg PO DAILY PRN PRN Reason: Diarrhea Magnesium Hydroxide (Milk Of Magnesia 30 Ml Oral.Susp) 30 ml PO DAILY PRN PRN Reason: Constipation Melatonin (Melatonin 3 Mg Tablet) 6 mg PO BEDTIME PRN PRN Reason: Insomnia Last Admin: 06/23/24 20:04 Dose: 6 mg Documented By: RAVEN Metoprolol Tartrate (Metoprolol Tartrate 12.5 Mg Halftab) 12.5 mg PO BID [facility]; Protocol Last Admin: 06/25/24 09:27 Dose: Not Given Documented By: GREGORY Non-Admin Reason: Decreased Blood Pressure Morphine Sulfate (Morphine Sulfate Immed Release 15 Mg Tablet) 15 mg PO Q6H PRN PRN Reason: Pain, Severe (Pain Scale 7-10) Last Admin: 06/25/24 01:56 Dose: 15 mg Documented By: INA Omeprazole (Omeprazole 20 Mg Capsule.) 20 mg PO DAILY@0630 [facility] Last Admin: 06/25/24 05:38 Dose: 20 mg Documented By: INA Ondansetron HCl (Ondansetron Hcl 4 Mg/2 Ml Vial) 4 mg IVPUSH Q8H PRN PRN Reason: Nausea and Vomiting Senna (Sennosides 8.6 Mg Tablet) 17.2 mg PO BEDTIME PRN PRN Reason: constipation Simethicone (Simethicone 80 Mg Tab.Chew) 80 mg PO QIDWMHS PRN PRN Reason: Gas Tamsulosin HCl (Tamsulosin Hcl 0.4 Mg Capsule) 0.4 mg PO DAILY [facility] Last Admin: 06/25/24 09:32 Dose: 0.4 mg Documented By: GREGORY Venlafaxine HCl (Venlafaxine Hcl Er 37.5 Mg Cap.Er.24h) 37.5 mg PO DAILY [facility] Last Admin: 06/25/24 09:32 Dose: 37.5 mg Documented By: GREGORY Venlafaxine HCl (Venlafaxine Hcl Er 150 Mg Cap.Er.24h) 150 mg PO DAILY [facility] Last Admin: 06/25/24 09:32 Dose: 150 mg Documented By: GREGORY Labs 06/23/24 06:06 Assessment and Plan (1) Cognitive impairment: Status: Acute Plan 78-year-old male with a history of chronic atrial fibrillation, hypertension, cognitive impairment and GERD presents initially from home with worsening shortness of breath and anxiety. 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 He was recently discharged from [facility] and after 2 days returned to the hospital. unable to take care of himself. # Chronic atrial fibrillation acceptable rate control on current therapies continue Eliquis # Cognitive impairment stable on Buspar and Valproic acid with PRN Atarax # Hypertension Amlodipine and Metoprolol DNR DNI Eliquis will need inpatient stay pending [facility] facility acceptance. Quality Stroke Does the patient have a stroke diagnosis?: No VTE Prior VTE?: Yes VTE Risk Level:: Medical - moderate - high VTE Device Contraindication: Treatment Not Indicated VTE Drug Contraindication: N/A - Med Ordered
--- NOTE | 2024-06-25 12:25 | PM.DS ---
DS: Providers Provider Date of Service: 06/26/24 Date of admission: 06/03/24 23:52 Date of discharge: 06/26/24 Primary care physician: Thania Almaraz MD Consults: 06/21/24 02:51 Consult to Wound Care Routine Reason for consultation: bruising DS: Diagnosis Discharge Diagnosis (1) Cognitive impairment: Status: Acute DS: Summary Hospital Course Hospital Course: from initial hpi: 78-year-old male who came from home for difficulty breathing, feeling anxious and feeling disoriented since 15:00 yesterday patient normally have history of anxiety that he takes Ativan for at-home patient recently was just discharged from [facility] to home 2 days ago. The patient normally wheelchair-bound able to transport lives home alone. Wheelchair-bound secondary to failed hip surgery Patient with history of AFib, pulmonary embolism, and DVT that he is anticoagulated with apixaban. Patient also with history of asthma and sleep apnea not using supplemental oxygen or CPAP at home. Admitted initially to physician aspiration now admitted to general medical floor pending placement hospital course: Patient was admitted for inability to take care of himself. He was treated for his chronic conditions of chronic atrial fibrillation with metoprolol and Eliquis. Cognitive impairment and mood disorder with BuSpar and valproic acid and p.r.n. Atarax. For hypertension amlodipine has been held for low normal blood pressures continued on metoprolol. Patient will be discharged to [facility] facility expected require less than 30 days. Time Attestation Discharge Coordination Time (in mins): 33 Quality: Safe Use of Opioids Does Pt have an Active Cancer Diagnosis on the Problem List?: No Quality: Stroke Does the patient have a stroke diagnosis?: No Physical Exam Vital Signs: Vital Signs: Last Vital Signs Temp 96.8 F 06/25/24 07:07 Pulse 63 06/25/24 09:13 Resp 18 06/25/24 07:07 BP 104/62 06/25/24 09:13 Pulse Ox 95 06/25/24 07:07 O2 Del Method Room Air 06/25/24 07:07 O2 Flow Rate 96 06/21/24 15:35 BMI result Body Mass Index 31.0 Const: Other: Constitutional : interactive, not in distress Cardiovascular : no JVP, no lower extremity edema Respiratory : bilateral chest movement, not in resp distress Gastrointestinal: soft, lax, Non tender Skin : Warm, Dry Neurological : Alert & oriented to self and place, No focal deficit DS: Data Data Completed and Pending Completed studies during hospitalization [Text1]: Procedures Insertion of Infusion Device into Superior Vena Cava, Percutaneous Approach (06/09/22) Release Peritoneum, Open Approach (06/09/22) Ultrasonography of Superior Vena Cava, Guidance (06/09/22) Discharge Plan Discharge Anticipated Discharge Date/Time: 06/25/24 12:23 Patient Disposition: Xfer SNF Discharge Diagnosis: afib Referrals: Harriet Esposito [Other] - 1 Week Po,Thania Childs MD [Primary Care Provider] - 1 Week Discharge Medications: Continued (DME) BD Safety-Jackie Detachable Needl 3 mL 25 gauge x 5/8 syringe See Rx Instructions .ROUTE .MEDSUPPLY Qty: 100 12RF Rx Instructions: As directed gabapentin 100 mg Capsule 200 mg PO BID Patient Comments: [facility] uncertain if medication was discontinued. They have him at 300mg melatonin 10 mg Tablet 10 mg PO BEDTIME nystatin-triamcinolone 100,000-0.1 unit/g-% Cream 1 appl TOPICAL BID Rx Instructions: apply to rash on groin and foreskin buspirone 5 mg tablet 10 mg PO DAILY buspirone 5 mg tablet 15 mg PO BEDTIME divalproex [Depakote] 500 mg tablet,delayed release (DR/EC) 500 mg PO BEDTIME pantoprazole 40 mg tablet,delayed release (DR/EC) 40 mg PO BEDTIME Gemtesa 75 mg tablet 75 mg PO DAILY metoprolol tartrate 25 mg Tablet 12.5 mg PO BID Qty: 45 0RF Protocol: Hold for SBP/HR < HOLD for SBP < : 120 HOLD for HR < : 60 Rx Instructions: hold for SBP < 120 and pulse < 60 venlafaxine [Effexor XR] 150 mg capsule,extended release 24hr 150 mg PO DAILY tamsulosin 0.4 mg capsule 0.4 mg PO DAILY venlafaxine [Effexor XR] 37.5 mg capsule,extended release 24hr 37.5 mg PO DAILY hydroxyzine HCl 25 mg tablet 25 mg PO Q8H PRN (Reason: Anxiety) lorazepam 1 mg tablet 1 mg PO DAILY Rx Instructions: tapering today 04/23/2024 apixaban 5 mg tablet 5 mg PO BID Discontinued amlodipine 2.5 mg tablet 2.5 mg PO DAILY Discharge Orders: Discharge Order (Routine); Ordered 06/25/24 Ordered By: Main Ramos Diet: Advance to usual diet Activity on Discharge: As tolerated Stand Alone Forms: Patient Portal Discharge page Print Language: Persian Care Plan Goals: Recovery Health Concerns: Chronic AFib Plan of Treatment: Rehab Assessment: See above
[2024-06-25] MEDS: hydrOXYzine HCL 25 MG TABLET PO (13:24)
[2024-06-25 15:20] VITALS: BP 100/56; PULSE 70; RESP 18; TEMP 36.1; O2SAT 98
[2024-06-25 19:22] VITALS: BP 92/59; PULSE 72; RESP 20
[2024-06-25] MEDS: busPIRone HCl 5 MG TABLET 15 MG PO (20:05)
[2024-06-25] MEDS: Divalproex Sodium 500 MG TABLET.DR PO (20:05)
[2024-06-25 23:35] VITALS: BP 106/55; PULSE 72; RESP 16; TEMP 36.1; O2SAT 98
[2024-06-26] MEDS: Omeprazole 20 MG CAPSULE.DR PO (05:50)
[2024-06-26 07:21] VITALS: BP 135/76; PULSE 66; RESP 18; TEMP 36; O2SAT 95
[2024-06-26] MEDS: Metoprolol Tartrate 12.5 MG HALFTAB PO (07:54)
[2024-06-26] MEDS: busPIRone HCl 10 MG TABLET PO (07:54)
[2024-06-26] MEDS: Venlafaxine HCl ER 150 MG CAP.ER.24H PO (07:54)
[2024-06-26] MEDS: Gabapentin 100 MG CAPSULE 200 MG PO (07:54)
[2024-06-26] MEDS: Apixaban 5 MG TABLET PO (07:55)
[2024-06-26] MEDS: Tamsulosin HCL 0.4 MG CAPSULE PO (07:55)
[2024-06-26] MEDS: amLODIPine Besylate 2.5 MG TABLET PO (07:55)
[2024-06-26] MEDS: Venlafaxine HCl ER 37.5 MG CAP.ER.24H PO (07:55)
[2024-06-26] MEDS: Morphine Sulfate Immed Release 15 MG TABLET PO (09:42)
[2024-06-26 09:43] VITALS: BP 122/75; PULSE 68; RESP 18; TEMP 36.1; O2SAT 94
--- NOTE | 2024-06-26 10:25 | MHC.CM.PN ---
Patient dc'd to [facility] for LTC via BLS. HCP aware.
== END 2024-06-26 10:31 | disposition skilled nursing facility (03) ==
PROVIDERS: Student in an Organized Health Care Education/Training Program; Admitting Provider Hospitalist; PCP Internal Medicine; Visit Provider Internal Medicine
DX: I48.20 Chronic atrial fibrillation, unspecified (principal); G31.84 Mild cognitive impairment of uncertain or unknown etiology; T14.90XA Injury, unspecified, initial encounter; W06.XXXA Fall from bed, initial encounter; Y93.89 Activity, other specified; Y92.230 Patient room in hospital as the place of occurrence of the external cause; Y99.9 Unspecified external cause status; I10 Essential (primary) hypertension; K21.9 Gastro-esophageal reflux disease without esophagitis; R06.02 Shortness of breath; F41.9 Anxiety disorder, unspecified; I82.409 Acute embolism and thrombosis of unspecified deep veins of unspecified lower extremity; J45.909 Unspecified asthma, uncomplicated; Z79.01 Long term (current) use of anticoagulants; Z99.3 Dependence on wheelchair; Z79.899 Other long term (current) drug therapy; Z96.642 Presence of left artificial hip joint
CPT/HCPCS: 36415; 73110; 73130; 73502; 80048; 97162; 97530; 99221; J2270

== ENCOUNTER → 2024-06-03 23:52 | Outpatient (BNV) | payer MEDICARE, SELFPAY | PROVIDERS: Admitting Provider Hospitalist; Visit Provider Hospitalist | DX: I48.20 Chronic atrial fibrillation, unspecified (principal); R41.89 Other symptoms and signs involving cognitive functions and awareness; I10 Essential (primary) hypertension | CPT/HCPCS: 99231; 99499 ==